=== PATIENT | female | born 1935 | race Caucasian/White ===

== ENCOUNTER 2023-05-04 15:22 | Outpatient (NON) | payer OTHER, SELFPAY ==
[2023-05-04 15:46] LABS: Influenza A QL RT-PCR Negative (Negative); Influenza B QL RT-PCR Negative (Negative); RSV RNA, RT-PCR Positive (Negative); SARS-CoV-2 RNA PCR Negative (Negative)
== END 2023-05-04 15:23 | disposition home or self-care (01) ==
LOC: ANHLAB 15:29
PROVIDERS: PCP Internal Medicine; Visit Provider Hospitalist
DX: R05.9 Cough, unspecified (principal)
CPT/HCPCS: 87637

== ENCOUNTER 2024-03-28 20:20 | Emergency (ER) | payer OTHER, SELFPAY ==
--- NOTE | ~2024-03-28 | CT_ITS ---
EXAMINATION: CT brain wo con DATE: 03/29/2024 00:19 INDICATION: Head injury. TECHNIQUE: Computed tomography (CT) of the head was performed without intravenous contrast. The mA wa s adjusted according to patient size. Iterative reconstruction technique was employed. The dose-lengt h product was 681.00 mGy-cm. COMPARISON: Head CT 09/21/2009, brain MRI 05/12/2014 FINDINGS: There are scattered areas of low attenuation in the cerebral white matter, which is within normal limits for the patient's age. There is no intracranial hemorrhage, acute infarction, or abnorm al intracranial mass lesion. The ventricles are normal in size. There are likely changes of ocular le ns replacement surgeries. There is mild mucosal thickening in the paranasal sinuses. The mastoid air cells are normal. IMPRESSION: 1. Normal aging brain. Reviewed, dictated and finalized at location A. E BANKER IMPRESSION: 1. Normal aging brain.
[2024-03-28 20:26] VITALS: BP 92/53; PULSE 70; RESP 16; TEMP 36.6; O2SAT 96
--- NOTE | 2024-03-28 23:53 | ED_ITS ---
HPI - Fall General Chief Complaint: Fall Stated Complaint: glf Time Seen by Provider: 03/28/24 23:43 Source: family Mode of arrival: wheelchair Limitations: dementia History of Present Illness HPI Narrative: 88-year-old with a history of hypertension diabetes, dementia was brought in from skilled nursing with the complaints of fall. Daughter was at bedside states that they were trying to take her to the bathroom lost her balance and hit head. No LOC. Patient presently has no complaints. complaint: fall Fall from: standing Fall witnessed: yes, by living facility staff Place fall occurred: skilled nursing/SNF Loss of consciousness: none Location of injury: head Related Data Allergies Allergy/AdvReac Type Severity Reaction Status Date / Time No Known Allergies Allergy Verified 03/28/24 20:21 Review of Systems Constitutional: Constitutional: Reports no additional constitutional complaints Eyes: Eyes: Reports no additional eye complaints Cardiovascular: Cardiovascular: Reports no additional cardiovascular complaints Respiratory: Respiratory: Reports no additional respiratory complaints Gastrointestinal: Gastrointestinal: Reports no additional gastrointestinal complaints Musculoskeletal: Musculoskeletal: Reports no additional musculoskeletal complaints PMFSH Family History Family History Father Family history of diabetes mellitus in first degree relative Mother Family history of diabetes mellitus in first degree relative Mother Family history of diabetes mellitus in first degree relative Other Diabetes mellitus Family history of coronary artery disease Family history of elevated blood lipids Family history of hypercholesterolemia Family history of osteoarthritis Social History Social History Smoking status: Never smoker Alcohol intake: never Exam Narrative: GENERAL: Well-appearing, well-nourished, and in no acute distress. HEAD: Normocephalic, atraumatic. EYES: PERRLA and EOMI. ENT: Nares clear, no rhinorrhea or epistaxis. Mucous membranes moist. NECK: Supple. CHEST: Clear to auscultation. No respiratory distress. HEART: Regular rate and rhythm. No murmur heard. Normal peripheral pulses. ABDOMEN: Soft, nontender, nondistended, normal active bowel sounds. EXTREMITIES: Normal range of motion. No edema. SKIN: Warm, dry, no rash. NEURO: No focal deficits. Alert PSYCH: Normal mood and affect. Course Vital Signs Vital signs: Vital Signs Temperature 36.6 C 03/28/24 20:26 Pulse Rate 70 03/28/24 20:26 Respiratory Rate 16 03/28/24 20:26 Blood Pressure 92/53 L 03/28/24 20:26 Pulse Oximetry 96 03/28/24 20:26 Temperature 36.6 C 03/28/24 20:26 Pulse Rate 70 03/28/24 20:26 Respiratory Rate 16 03/28/24 20:26 Blood Pressure 92/53 L 03/28/24 20:26 Pulse Oximetry 96 03/28/24 20:26 MDM - Fall Differential Diagnosis Differential diagnosis: Likely concussion with loss of consciousness and concussion without loss of consciousness Medical Records Attestation: I reviewed the patient's medical records. Imaging Data Radiologist's impression: CT of the head of the head was unremarkable Discharge Plan Discharge Clinical Impression: Head injury Qualifiers: Encounter type: initial encounter Qualified Code(s): S09.90XA - Unspecified injury of head, initial encounter Patient Disposition: NH Usp/Asst Living Condition: Stable Instructions: Antibiotic Form, Head Injury (ED) Additional Instructions: fall precautions Patient Language: Kuwaiti Follow-up/Referrals: Yeison Atwood MD [Primary Care Provider] - Time of Disposition: 00:41
[2024-03-29] VITALS: BP 106/59; PULSE 63; RESP 14; TEMP 36.6; O2SAT 97
[2024-03-29 01:00] VITALS: BP 110/57; PULSE 69; RESP 12; O2SAT 96
[2024-03-29 03:03] VITALS: BP 106/55; PULSE 64; RESP 14; O2SAT 97
[2024-03-29 05:02] VITALS: BP 102/58; PULSE 64; RESP 13; O2SAT 96
--- NOTE | 2024-03-29 06:52 | PC.NURSE ---
Report called to [facility]. Pt transport time has been pushed back three times. [facility] stated that they typically can transport pts but are unable due to the holiday. Transport set for 10am.
--- OUTSIDE RECORDS SUMMARY | 2024-04-05 00:11 | XMS_ITS | Encounter Summary ---
Author Organization [facility] Address [facility] [facility] [place] [address] [place] [address] Care Team Providers Care Human Anatomy Teacher Name Role Phone Joni Mckeon MD Unavailable [phone] Noemi Barnard MD Primary Care Provider [phone] Sandra Johnson RN Unavailable [phone] Reason for Visit * Reason Onset Date Comments Hospital Follow Up 05/19/2021 admit to [facility] 05/15 Encounter Details Date Type Department Care Team (Late st Contact Info) Description 05/19/2021 Patient Outreach [facility] Family & Internal Medicine [address] [address] Sandra Johnson, RN [address] [place] [address] Hospital Follow Up (admit to [facility] 05/15) Social History Tobacco Use Types Packs/Day Years Used Date Smoking Tobacco: Never Smokeless Tobacco: Never Alcohol Use Standard Drinks/Week Comments No 0 (1 standard drink = 0.6 oz pur e alcohol) AUDIT-C Answer Date Recorded Frequency of Alcohol Consumption Never 02/22/2018 Average Number of Drinks Not on file 018 Frequency of Binge Drinking Not on file 02/04 PHQ-2 Answer Date Recorded PHQ-2 Score - If the patient scores above 3, please move on to questions 3-9 0 04/16/2021 Comments No Sex and Gender Information Value Date Recorded Sex Assigned at Not on file Legal Sex Female 8:14 PM CDT Gender Identity Not on file Sexual Orientation Not on file Occupation Industry Job Start Date Job End Date Not on file Not on file Not on file Not on file COVID-19 Exposure Response Date Recorded In the last 10 days, have yo u been in contact with someone who was confirmed or suspected to have Coronavirus/COVID-19? No / Unsure 05/10/2021 1:36 PM COCOA ROOM OPERATOR documented as of this encounter Functional Status * RETIRED Are you deaf or do you have serious difficulty hearing Answer Date of Assessment Author Status Yes 05/11/2021 1:19 AM COCOA ROOM OPERATOR Activ e * RETIRED Are you blind or do you have serious difficulty seeing, even when wearing glasses? Answer Date of Assessment Author Status No 05/11/2021 1:19 AM COCOA ROOM OPERATOR Activ e * Do you have serious difficulty walking or climbing stairs? Answer Date of Assessment Author Status Yes 05/11/2021 1:19 AM COCOA ROOM OPERATOR Aliya Baca RN Active * Do you have difficulty dressing or bathing? Answer Date of Assessment Author Status Yes 05/11/2021 1:19 AM COCOA ROOM OPERATOR Aliya Baca RN Active * Because of a physical, mental, or emotional condition, do you have difficulty doing errands alone such as visiting a doctor's office or shopping? Answer Date of Assessment Author Status Yes 05/11/2021 1:19 AM Aliya Brooks RN Active documented as of this encounter Mental Status * Because of a physical, mental, or emotional condition, do you have serious difficulty concentrating, remembering, or making decisions? Answer Entry Date Author Status Yes 05/11/2021 1:19 AM Aliya Brooks RN Active documented in this encounter Progress Notes * Sandra Johnson RN - 05/19/2021 9:40 AM CST Patient [facility] for ongoing therapy services. Per daughter they are applying for medicaid this week patient is not safe to return home, daughter is unsure if she will ever be able to return home. A ROOM OPERATOR * Penny Cole MA - 05/19/2021 9:40 AM CST Printed for provider to review. A ROOM OPERATOR documented in this encounter Plan of Treatment Not on file documented as of this encounter Goals Goal Patient Goal Type Associated Problems Recent Progress Patient-Stated? Author Improve Home Support System General Laura Akbar, RN Return home with [facility] home health General No Malgorzata Brown MSW HOME WITH DAUGHTER General No Laura Cheatham, sheetrock applicator - family caregiver with be involved in care transitions and discharge planning General No Laura Cheatham, RN documented as of this encounter Visit Diagnoses Not on filedocumented in this encounter Additional Health Concerns Assessment Noted Time PHQ-9 Depression Total Score: 0 04/16/19 22 1:13 PM COCOA ROOM OPERATOR documented as of this encounter Care Teams Human Anatomy Teacher Relationship Specialty Start Date End Date Noemi Barnard MD [facility]. [address] [address] PCP - General INTERNAL MEDICINE 08/23/18 03/03/23 Joni Mckeon MD [facility]. [address] [address] [employer] CARDIOVASCULAR DISEASE 07/04/18 Sandra Johnson RN [facility] [place] [address] [place] (Ambulatory) REGISTERED NURSE 05/12/21 06/29/21 documented as of this encounter
--- OUTSIDE RECORDS SUMMARY | 2024-04-05 00:11 | XMS_ITS | Encounter Summary ---
Author Organization [facility] Address [address] [place] [address]. [place] [address] [place] [address] Care Team Providers Care Medical Records Coordinator Name Role Phone Joni Mckeon MD Unavailable [phone] Noemi Barnard MD Primary Care Provider [phone] Reason for Visit * Reason Onset Date Comments Question 03/02/2022 Encounter Details Date Type Department Care Team (Late st Contact Info) Description 03/02/2022 Telephone [place] [facility] [address] Melody Bucio, RN Question Social History Tobacco Use Types Packs/Day Years [...] file Not on file Not on file documented as of this encounter Functional Status * RETIRED Are you deaf or do you have serious difficulty hearing Answer Date of Assessment Author Status Yes 05/11/2021 1:19 AM MILLINERY BLOCKER Activ e * RETIRED Are you blind or do you have serious difficulty seeing, even when wearing glasses? Answer Date of Assessment Author Status No 05/11/2021 1:19 AM MILLINERY BLOCKER Activ e * Do you have serious difficulty walking or climbing stairs? Answer Date of Assessment Author Status Yes 05/11/2021 1:19 AM Aliya Brooks RN Active * Do you have difficulty dressing or bathing? Answer Date of Assessment Author Status Yes 05/11/2021 1:19 AM Aliya Brooks RN Active * Because of a physical, [...] documented in this encounter Progress Notes * Nolvia Thomason RN - 03/03/2022 9:50 AM CST [place] removed from the website. INERY BLOCKER * Melody Bucio RN - 03/02/2022 3:51 PM CST Returned call from voicemail message. Patient's daughter is requesting remote monitoring of her mother's device be cancelled. Her is also communicating with her. She has dementia and has beenin LTCF for about a year and she is being billed for the monitoring. They understand that this watches for changes in wire or battery measurements and would not have her go through a procedure to fix/repair them if they were to occur so request monitoring be discontinued. They will return her Toney monitor to our office at their convenience. There is POA of healthcare paperwork in this EMR that demonstrates Krystina is her Mother's POA for healthcare. I provided them with additional phone number for billing specific questions. INERY BLOCKER documented in this encounter Plan of Treatment Not on file documented as of this encounter Goals Goal Patient Goal Type Associated Problems Recent Progress Patient-Stated? Author Improve Home Support System General No Laura Cheatham, RN Return home with [facility] home health General No Malgorzata Brown, SALES ASSOCIATE KEY HOLDER HOME WITH DAUGHTER General No Laura Cheatham, track equipment operator - family caregiver with be involved in care transitions and discharge planning General No Laura Cheatham, RN documented as of this encounter Visit Diagnoses Not on filedocumented in this encounter Additional Health Concerns Assessment Noted Time PHQ-9 Depression Total Score: 0 04/16/19 22 1:13 PM MILLINERY BLOCKER documented as of this encounter Care Teams Medical Records Coordinator Relationship Specialty Start Date End Date Noemi Barnard MD [facility]. [facility] [address] [place] [address] PCP - General INTERNAL MEDICINE 08/23/18 03/03/23 Joni Mckeon MD [facility]. [facility] [address] [place] [address] Christopher External Auditor CARDIOVASCULAR DISEASE 07/04/18 documented as of this encounter
--- OUTSIDE RECORDS SUMMARY | 2024-04-05 00:11 | XMS_ITS | Encounter Summary ---
Author Organization [facility] Address [address] [place] [address] [place] [address] Care Team Providers Care Quality Process Engineer Name Role Phone Joni Mckeon MD Unavailable [phone] Noemi Barnard MD Primary Care Provider [phone] Reason for Visit * Reason Onset Date Comments Follow Up Call 11/11/2021 Toney transmitt er not connecting, Needs to do Manual Dexter to Reconnect, Letter sent, rescheduled. Encounter Details Date Type Department Care Team (Late st Contact Info) Description 11/11/2021 Telephone [facility], [address] [address] Nolvia Thomason, RN Follow Up Call (Toney transmitter not connecting, Needs to do Manual Dexter to Reconnect, Letter sent, rescheduled.) Social History Tobacco Use Types Packs/Day Years [...] Assessment Author Status Yes 05/11/2021 1:19 AM MANAGER OF HOUSEKEEPING Activ e * RETIRED Are you blind or do you have serious difficulty seeing, even when wearing glasses? Answer Date of Assessment Author Status No 05/11/2021 1:19 AM MANAGER OF HOUSEKEEPING Activ e * Do you have serious [...] Progress Notes * Nolvia Thomason RN - 11/11/2021 11:48 AM CDT Toney transmitter not connecting, Needs to do Manual Dexter to Reconnect, Letter sent, rescheduled. documented in this encounter Plan of Treatment Not on file documented as of this encounter Goals Goal Patient Goal Type Associated Problems Recent Progress Patient-Stated? Author Improve Home Support System General No Laura Cheatham, RN Return home with [facility] home health General No Malgorzata Brown MSW HOME WITH DAUGHTER General No Laura Cheatham, recessing machine operator - family caregiver with be involved in care transitions and discharge planning General No Laura Cheatham RN documented as of this encounter Visit Diagnoses Not on filedocumented in this encounter Additional Health Concerns Assessment Noted Time PHQ-9 Depression Total Score: 0 04/16/19 22 1:13 PM MANAGER OF HOUSEKEEPING documented as of this encounter Care Teams Quality Process Engineer Relationship Specialty Start Date End Date Noemi Barnard MD [facility]. [address] [address] PCP - General INTERNAL MEDICINE 08/23/18 03/03/23 Joni Mckeon MD [facility]. [address] [address] [employer] Delivery Driver CARDIOVASCULAR DISEASE 07/04/18 documented as of this encounter
--- OUTSIDE RECORDS SUMMARY | 2024-04-05 00:11 | XMS_ITS | Encounter Summary ---
Author Organization [facility] Address [address] [place] [address]. [address] Care Team Providers Care Tube Mounter Name Role Phone Joni Mckeon MD Unavailable [phone] Noemi Barnard MD Primary Care Provider [phone] Reason for Visit * Reason Comments Remote Device Check Routine Toney Remot e Pacemaker check. Encounter Details Date Type Department Care Team (Late st Contact Info) Description 12/01/2021 7:00 AM CDT Allied Health/Nurse Visit [facility] [facility], [facility] [address] [place] [address] Cruzito Mcnulty MD [facility]. [facility] [address] [place], [place] [id number] Remote Device Check (Routine [place] Remote Pacemaker check. ) Social History Tobacco Use Types Packs/Day Years [...] Assessment Author Status Yes 05/11/2021 1:19 AM TOLL COLLECTOR Activ e * RETIRED Are you blind or do you have serious difficulty seeing, even when wearing glasses? Answer Date of Assessment Author Status No 05/11/2021 1:19 AM TOLL COLLECTOR Activ e * Do you have serious [...] documented in this encounter Progress Notes * Novlia Thomason RN - 12/01/2021 7:00 AM CDT Routine [place] Pacemaker Remote. Transmission attached. Good battery voltage, atrial and RV pacing and sensing thresholds. AP %: 62, POWDERMAN %: 4.1 (1) Recent AT/AF episodes. IEGM demonstrates INAPPROPRIATE MS. (0) Ventricular arrhythmias detected. 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 MEDS: ASA, Inderal, and Amlodipine Follow up: [place] 03/02/22. The battery longevity today is 9.1 years to [place], the battery longevity on 08/04/2021 it was 10.9 years, the correct battery longevity is 9.1 years after the software upgrade. Cosigned by Joni Mckeon MD at 12/07/2021 4:36 PM CDT documented in this encounter Plan of Treatment Not on file documented as of this encounter Goals Goal Patient Goal Type Associated Problems Recent Progress Patient-Stated? Author Improve Home Support System General Laura Akbar, RN Return home with [facility] home health General No Malgorzata Brown MULTIPLE DRILL OPERATOR HOME WITH DAUGHTER General No Laura Cheatham, supervisor seaming - family caregiver with be involved in care transitions and discharge planning General Laura Akbar, RN documented as of this encounter Visit Diagnoses Diagnosis Pacemaker Cardiac pacemaker in situ SSS (sick sinus syndrome) ([facility]) Sinoatrial node dysfunction documented in this encounter Additional Health Concerns Assessment Noted Time PHQ-9 Depression Total Score: 0 04/16/19 22 1:13 PM TOLL COLLECTOR documented as of this encounter Care Teams Tube Mounter Relationship Specialty Start Date End Date Noemi Barnard MD [facility]. [address] [address] PCP - General INTERNAL MEDICINE 08/23/18 03/03/23 Joni Mckeon MD [facility]. [facility] [address] [place] [address] Christopher Radiology Equipment Servicer CARDIOVASCULAR DISEASE 07/04/18 documented as of this encounter
--- OUTSIDE RECORDS SUMMARY | 2024-04-05 00:11 | XMS_ITS | Encounter Summary ---
Author Organization [facility] Address [facility] [facility] [place] [address] [place] [address] Care Team Providers Care Hot Dip Plating Supervisor Name Role Phone Joni Mckeon MD Unavailable [phone] Noemi Barnard MD Primary Care Provider [phone] Reason for Visit * Reason Onset Date Comments Hospital Follow Up 06/30/2021 Encounter Details Date Type Department Care Team (Late st Contact Info) Description 06/30/2021 Patient Outreach [facility] Medical Group Family & Internal Medicine [facility] [address] [place] [address] Sandra Johnson, RN [address] [place] [address] Hospital Follow Up Social History Tobacco Use Types Packs/Day Years [...] Assessment Author Status Yes 05/11/2021 1:19 AM DINKEY SKINNER Activ e * RETIRED Are you blind or do you have serious difficulty seeing, even when wearing glasses? Answer Date of Assessment Author Status No 05/11/2021 1:19 AM DINKEY SKINNER Activ e * Do you have serious [...] Progress Notes * Sandra Johnson RN - 06/30/2021 10:46 AM CDT CC called and spoke with Juana at [facility] who reported that patient will be a senior care resident at the facility and will not return home. Patient discharged from home visit field care manager services. * Kaye Slaughter RN - 06/30/2021 10:46 AM CDT FYI documented in this encounter Plan of Treatment Not on file documented as of this encounter Goals Goal Patient Goal Type Associated Problems Recent Progress Patient-Stated? Author Improve Home Support System General No Laura Cheatham RN Return home with [facility] home health General No Flamm, Malgorzata M, INSPECTOR HOT FORGINGS HOME WITH DAUGHTER General No Laura Cheatham, transportation assistant - family caregiver with be involved in care transitions and discharge planning General No Laura Cheatham, RN documented as of this encounter Visit Diagnoses Not on filedocumented in this encounter Additional Health Concerns Assessment Noted Time PHQ-9 Depression Total Score: 0 04/16/19 22 1:13 PM DINKEY SKINNER documented as of this encounter Care Teams Hot Dip Plating Supervisor Relationship Specialty Start Date End Date Noemi Barnard MD [facility]. [address] [id number] PCP - General INTERNAL MEDICINE 08/23/18 03/03/23 Joni Mckeon MD [facility]. [address] [address] [place] [employer] Performer CARDIOVASCULAR DISEASE 07/04/18 documented as of this encounter
--- OUTSIDE RECORDS SUMMARY | 2024-04-05 00:11 | XMS_ITS | Encounter Summary ---
Author Organization [facility] Address [facility] [place] [address] [place] [address] Care Team Providers Care Ramp Service Man Name Role Phone Joni Mckeon MD Unavailable [phone] Noemi Barnard MD Primary Care Provider + [phone] Sandra Johnson RN Unavailable [phone] Reason for Visit * Reason Onset Date Comments Hospital Follow Up 05/27/2021 Encounter Details Date Type Department Care Team (Late st Contact Info) Description 05/27/2021 Patient Outreach [facility] Family & Internal Medicine [address] [address] Sandra Johnson, RN [address] [place] [address] Hospital Follow Up Social History [...] Coronavirus/COVID-19? No / Unsure 05/10/2021 1:36 PM CLAM SORTER documented as of this encounter Functional Status * RETIRED Are you deaf or do you have serious difficulty hearing Answer Date of Assessment Author Status Yes 05/11/2021 1:19 AM CLAM SORTER Activ e * RETIRED Are you blind or do you have serious difficulty seeing, even when wearing glasses? Answer Date of Assessment Author Status No 05/11/2021 1:19 AM CLAM SORTER Activ e * Do you have serious difficulty walking or climbing stairs? Answer Date of Assessment Author Status Yes 05/11/2021 1:19 AM CLAM SORTER Aliya Baca RN Active * Do you have difficulty dressing or bathing? Answer Date of Assessment Author Status Yes 05/11/2021 1:19 AM CLAM SORTER Aliya Baca RN Active * Because of a physical, mental, or emotional condition, do you have difficulty doing errands alone such as visiting a doctor's office or shopping? Answer Date of Assessment Author Status Yes 05/11/2021 1:19 AM CLAM SORTER Aliya Baca RN Active documented as of this encounter Mental Status * Because of a physical, mental, or emotional condition, do you have serious difficulty concentrating, remembering, or making decisions? Answer Entry Date Author Status Yes 05/11/2021 1:19 AM Aliya Brooks RN Active documented in this encounter Progress Notes * Sandra Johnson RN - 05/27/2021 11:44 AM CST Spoke with nurse and therapist at [facility] to check on status, patient is receivingPT/OT/ST services, per daughter patient has 100 days approved, medicaid application pending at thistime. Therapy stated that patient is a stand by assist with contact guard. Therapist stated that patient is doing good physically but will need more therapy for cognitive issues. Therapist reported that patient would be safe to discharge to a [facility] after therapy completed and requested that daughter call facility to discuss, spoke with daughter and informed her to contact facility at earliest convenence and ask for therapy department. Daughter reports that patient has no money for [facility], informed patient of possible assistance once all therapy goals are met. CC gave daughter number to contact CC with any questions or concerns. Daughter voiced understanding. SORTER * Melanie Chavez RN - 05/27/2021 11:44 AM CST FYI SORTER documented in this encounter Plan of Treatment Not on file documented as of this encounter Goals Goal Patient Goal Type Associated Problems Recent Progress Patient-Stated? Author Improve Home Support System General Laura Akbar, RN Return home with [facility] home health General No Malgorzata Brown MSW HOME WITH DAUGHTER General Laura Akbar, casting molder - family caregiver with be involved in care transitions and discharge planning General No Laura Cheatham RN documented as of this encounter Visit Diagnoses Not on filedocumented in this encounter Additional Health Concerns Assessment Noted Time PHQ-9 Depression Total Score: 0 04/16/19 22 1:13 PM CLAM SORTER documented as of this encounter Care Teams Ramp Service Man Relationship Specialty Start Date End Date Noemi Barnard MD [address] [address] PCP - General INTERNAL MEDICINE 08/23/18 03/03/23 Joni Mckeon MD [facility] [address] [place] [address] [place] [employer] CARDIOVASCULAR DISEASE 07/04/18 Sandra Johnson, RN [address] [place] [address] Luggage Repairer (Ambulatory) REGISTERED NURSE 05/12/21 06/29/21 documented as of this encounter
--- OUTSIDE RECORDS SUMMARY | 2024-04-05 00:11 | XMS_ITS | Encounter Summary ---
Author Organization [facility] Address [facility] [place] [address] [place] [address] Care Team Providers Care Electric Motor Repairing Supervisor Name Role Phone Joni Mckeon MD Unavailable [phone] Noemi Barnard MD Primary Care Provider + [phone] Sandra Johnson RN Unavailable [phone] Reason for Visit * Reason Onset Date Comments Hospital Follow Up 05/15/2021 admit to [facility] 05/14 Encounter Details Date Type Department Care Team (Late st Contact Info) Description 05/15/2021 Patient Outreach [facility] Family & Internal Medicine - [address] [address] Sandra Johnson, RN [address] [place] [address] Hospital Follow Up (admit to [facility] 05/14) Social History Tobacco Use Types Packs/Day Years [...] Coronavirus/COVID-19? No / Unsure 05/10/2021 1:36 PM ASSISTANT PLANT MANAGER documented as of this encounter Functional Status * RETIRED Are you deaf or do you have serious difficulty hearing Answer Date of Assessment Author Status Yes 05/11/2021 1:19 AM ASSISTANT PLANT MANAGER Activ e * RETIRED Are you blind or do you have serious difficulty seeing, even when wearing glasses? Answer Date of Assessment Author Status No 05/11/2021 1:19 AM ASSISTANT PLANT MANAGER Activ e * Do you have serious difficulty walking or climbing stairs? Answer Date of Assessment Author Status Yes 05/11/2021 1:19 AM ASSISTANT PLANT MANAGER Aliya Baca RN Active * Do you have difficulty dressing or bathing? Answer Date of Assessment Author Status Yes 05/11/2021 1:19 AM ASSISTANT PLANT MANAGER Aliya Baca RN Active * Because of a physical, mental, or emotional condition, do you have difficulty doing errands alone such as visiting a doctor's office or shopping? Answer Date of Assessment Author Status Yes 05/11/2021 1:19 AM ASSISTANT PLANT MANAGER Aliya Baca RN Active documented as of this encounter Mental Status * Because of a physical, mental, or emotional condition, do you have serious difficulty concentrating, remembering, or making decisions? Answer Entry Date Author Status Yes 05/11/2021 1:19 AM ASSISTANT PLANT MANAGER Aliya Baca RN Active documented in this encounter Progress Notes * Sandra Johnson RN - 05/15/2021 8:47 AM CST Patient discharged from [facility] and admitted to [facility] on 05/14/21. STANT PLANT MANAGER * Melanie Chavez RN - 05/15/2021 8:47 AM CST FYI STANT PLANT MANAGER documented in this encounter Plan of Treatment Not on file documented as of this encounter Goals Goal Patient Goal Type Associated Problems Recent Progress Patient-Stated? Author Improve Home Support System General No Laura Cheatham, RN Return home with [facility] home health General No Malgorzata Brown, CLOTH CHECKER HOME WITH DAUGHTER General No Laura Cheatham, careers adviser - family caregiver with be involved in care transitions and discharge planning General No Laura Cheatham, RN documented as of this encounter Visit Diagnoses Not on filedocumented in this encounter Additional Health Concerns Assessment Noted Time PHQ-9 Depression Total Score: 0 04/16/19 22 1:13 PM ASSISTANT PLANT MANAGER documented as of this encounter Care Teams Electric Motor Repairing Supervisor Relationship Specialty Start Date End Date Noemi Barnard MD [facility]. [facility] [address] [place] [address] PCP - General INTERNAL MEDICINE 08/23/18 03/03/23 Joni Mckeon MD [facility]. [facility] [address] [place], [place] [address] Crum Casing Splitter CARDIOVASCULAR DISEASE 07/04/18 Sandra Johnson, KAILEE [address] [place], [place] [address] Stitcher Utility (Ambulatory) REGISTERED NURSE 05/12/21 06/29/21 documented as of this encounter
--- OUTSIDE RECORDS SUMMARY | 2024-04-05 00:11 | XMS_ITS | Encounter Summary ---
Author Organization [facility] Address [address] [place] [address]. [place] [address] [place] [address] Care Team Providers Care Certified Lactation Counselor Name Role Phone Joni Mckeon MD Unavailable [phone] Noemi Barnard MD Primary Care Provider [phone] Reason for Visit * Reason Comments Remote Device Check routine Toney remot e pacemaker check Encounter Details Date Type Department Care Team (Late st Contact Info) Description 08/04/2021 9:25 AM CDT Allied Health/Nurse Visit [facility], [facility] [address] [place] [address] Cruzito Mcnulty MD [facility]. [facility] [address] [place], [place] [id number] Remote Device Check (routine Toney remote pacemaker check) Social History Tobacco Use Types Packs/Day Years [...] Assessment Author Status Yes 05/11/2021 1:19 AM POWERHOUSE ELECTRICIAN APPRENTICE Activ e * RETIRED Are you blind or do you have serious difficulty seeing, even when wearing glasses? Answer Date of Assessment Author Status No 05/11/2021 1:19 AM POWERHOUSE ELECTRICIAN APPRENTICE Activ e * Do you have serious [...] Progress Notes * Nolvia Thomason RN - 08/04/2021 9:25 AM CDT Routine [place] Pacemaker Remote. Transmission attached. Stable battery voltage, atrial and RV pacing and sensing thresholds. AP %: 59, JIGGER CROWN POUNCING MACHINE OPERATOR %: 15 (0) Recent AT/AF episodes. (0) Ventricular arrhythmias detected. Presenting AP/VS. MEDS: ASA, Inderal, and Amlodipine Follow up: Toney 11/10/21. Cosigned by Joni Mckeon MD at 08/19/2021 6:58 AM CDT documented in this encounter Plan of Treatment Not on file documented as of this encounter Goals Goal Patient Goal Type Associated Problems Recent Progress Patient-Stated? Author Improve Home Support System General No Laura Cheatham, RN Return home with [facility] home health General No IzzyoneilMalgorzata, TEXTBOOK ASSOCIATE HOME WITH DAUGHTER General No Laura Cheatham, surveillance officer - family caregiver with be involved in care transitions and discharge planning General No Laura Cheatham, RN documented as of this encounter Visit Diagnoses Diagnosis Pacemaker Cardiac pacemaker in situ SSS (sick sinus syndrome) ([facility] Sinoatrial node dysfunction documented in this encounter Additional Health Concerns Assessment Noted Time PHQ-9 Depression Total Score: 0 04/16/19 22 1:13 PM POWERHOUSE ELECTRICIAN APPRENTICE documented as of this encounter Care Teams Certified Lactation Counselor Relationship Specialty Start Date End Date Noemi Barnard MD Three [facility]. [address] [id number] PCP - General INTERNAL MEDICINE 08/23/18 03/03/23 Joni Mckeon MD [facility]. [facility] [address] [place] [address] Carlotta Presales Consultant CARDIOVASCULAR DISEASE 07/04/18 documented as of this encounter
--- OUTSIDE RECORDS SUMMARY | 2024-04-05 00:11 | XMS_ITS | Clinical Summary ---
Author Organization [facility] Address [facility] [place] [address] [place] [address] Care Team Providers Care Hook Up Driver Name Role Phone Joni Mckeon MD Unavailable [phone] None, Provider Primary Care Provider Unavaila ble Allergies Active Allergy Reactions Criticality Noted Date Comments Sulfamethoxazole-Trimethoprim Rash Low 2018 Medications * This document contains information received from the source organization and may not represent a complete record from that organization. aspirin EC 81 MG EC tabletIndications: Anticoagulant Therapy Take 81 mg by mouth daily. Indications: Anticoagulant Therapy 01/04/20 Active Cholecalciferol (VITAMIN D) 2000 units CapIndications:Nut ritional Support Take 2,000 Units by mouth daily. Indications: Nutritional Support 01/04/20 Active sertraline 100 MG tabletIndications: Depression Take 100 mg by mouth every morning. Indications: Depression 08/17/19 20 Active donepezil 10 MG Tab Take two tabs PO QAM 08/17/19 20 Active vitamin C 250 MG tablet Take 250 mg by mouth daily. Active memantine ER 28 MG 24 hr capsule Take 28 mg by mouth daily. Active rOPINIRole 2 MG tablet Take 2 mg by mouth nightly at bedtime. Active methenamine 1 g tabletIndications: Recurrent UTI TAKE 1 TABLET(1 GRAM) BY MOUTH TWICE DAILY WITH MEALS 60 tablet 3 11/01/19 21 Active Blood Glucose Monitoring Suppl DeviceIndications: Type 2 diabetes mellitus with stage 3 chronic kidney disease, without long-term current use of insulin, unspecified whether stage 3a or 3b CKD (CMS/HCC HHS/HCC) 1 Device by Does not apply route daily. Whatever brand insurance will pay for 100 Device 12/20/19 21 Active Misc. Devices MiscIndications:Ty pe 2 diabetes mellitus with stage 3 chronic kidney disease, without long-term current use of insulin, unspecified whether stage 3a or 3b CKD ([facility]) 1 strip by Does not apply route daily. Whatever brand insurance will pay for 100 strip 12/20/19 Active propranolol 10 MG tablet TAKE 1 TABLET BY MOUTH EVERY MORNING AND EVERY NIGHT AT BEDTIME 01/05/20 Active AMLODIPINE 5 MG tablet TAKE 1 TABLET BY MOUTH DAILY 90 tablet 03/06/20 Active PRAVASTATIN 40 MG tabletIndications: Hyperlipidemia, unspecified hyperlipidemia type TAKE 1 TABLET(40 MG) BY MOUTH EVERY NIGHT AT BEDTIME 90 tablet 03/06/20 Active LEVOTHYROXINE 50 MCG tabletIndications: Hypothyroidism, unspecified type TAKE 1 TABLET(50 MCG) BY MOUTH EVERY MORNING 90 tablet 03/06/20 Active ONETOUCH VERIO test stripIndications:D iabetes mellitus ([facility]) USE TO TEST EVERY DAY 100 strip 03/10/20 Active ONETOUCH DELICA PLUS [id number] MiscIndications:Ty pe 2 diabetes mellitus with stage 3 chronic kidney disease, without long-term current use of insulin, unspecified whether stage 3a or 3b CKD ([facility]) USE ONCE A DAY 100 each 03/19/20 21 Active risperiDONE 0.5 MG tablet Take 1.5 mg by mouth nightly at bedtime. 02/01/20 Active OMEPRAZOLE 20 MG capsuleIndications :Gastroesophageal reflux disease with esophagitis, unspecified whether hemorrhage TAKE 1 CAPSULE(20 MG) BY MOUTH DAILY 90 capsule 1 03/26/20 21 Active BENAZEPRIL 20 MG tablet TAKE 1 TABLET(20 MG) BY MOUTH DAILY 90 tablet 3 03/25/20 21 Active Active Problems Problem Noted Date Diagnosed Date NSTEMI (non-ST elevated myoc ardial infarction) ([facility]) 05/10/2021 Dysphagia, unspecified type 04/12/2020 Overview (04/12/2020): Added automatically from request for surgery [id number] Choking 04/12/2020 Overview (04/12/2020): Added automatically from request for surgery [id number] Weight loss 04/12/2020 Overview (04/12/2020): Added automatically from request for surgery [id number] Pacemaker 02/15/2020 Overview (05/06/2021): 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 SSS Hyperthyroidism 11/07/2019 Irregular heart rate 11/07/2019 UTI symptoms 08/25/2019 Dehydration 08/17/2019 CLAUDIO (acute kidney injury) 07/30/2019 Type 2 diabetes mellitus wit h stage 3 chronic kidney disease, without long-term current use of insulin ([facility]) 07/26/2019 E-coli UTI 07/07/2019 Bacteremia 07/03/2019 Physical deconditioning 11/02/2018 Environmental and seasonal allergies 11/02/2018 SOB (shortness of breath) 08/05/2018 Atypical chest pain 06/21/2018 Dizziness 06/18/2018 Otitis externa of right ear, unspecified chronicity, unspecified type 06/15/2018 Diverticulitis 06/15/2018 Suprapubic pain 06/15/2018 Diarrhea, unspecified type 03/10/2018 Vaginal burning 03/10/2018 GERD (gastroesophageal reflux disease) 8 Colitis 03/17/2017 Claudication 08/10/2016 Dyshidrotic eczema 08/10/2016 Lumbago 08/10/2016 Hypothyroidism 08/07/2015 Insomnia 01/11/2015 Diabetes mellitus ([facility]) 12/25/2014 Hyperlipidemia 12/25/2014 Hypertension 12/25/2014 SSS (sick sinus syndrome) ([facility]) Resolved Problems Problem Noted Date Diagnosed Date Resolved Date UTI (urinary tract infection) 02/22/2018 02/25/2018 Sepsis ([facility]) 01/03/2018 Acute diverticulitis 12/03/2017 018 Otitis media 11/08/2017 02/25/2018 Abdominal pain, chronic, left lower quadrant 7 02/25/2018 Immunizations Name Administration Dates Next Due Fluzone 6 Months+ Quad (0.5 mL Prefilled Syringe) 01/23/2020 Fluzone High Dose - >Age 65 (Prefilled Syringe) 01/23/2021,01/06/2019,12/20/2017,2015,01/09/2016,01/07/2015,01/15/2014 Influenza (Afluria - Preserv ative Free) 01/07/2017 Influenza (Generic) 01/07/2017 Influenza Adult (Generic) 01/23/2020,07/2018,12/21/2017,2015,01/07/2015,01/15/2014,01/13/2013 MODERNA COVID-19 (12+) MRNA, LNP-S, PF, 100 MCG/ 0.5 ML DOSE 05/30/2020,05/02/2020 Pneumococcal (Pneumovax 23) 01/23/2021 Family History Medical History Relation Comments No Known Problems Father Heart Attack Mother Breast Cancer Other Diabetes Other cardiac disorder Other Relation Status Comments Father Mother Other Social History Tobacco Use Types Packs/Day Years Used Date Smoking Tobacco: Never Smokeless Tobacco: Never Tobacco Cessation:Counseling Given: No Alcohol Use Standard Drinks/Week Comments No 0 [...] file Not on file Not on file Last Filed Vital Signs Vital Sign Reading Time Taken Comments Blood Pressure 154/70 05/14/2021 7:00 AM QUAHOGGER Pulse 63 05/14/2021 7:00 AM QUAHOGGER Temperature 36.8 ??C (98.3 ??F) 05/14/2021 7:00 AM CS T Respiratory Rate 18 05/14/2021 7:00 AM QUAHOGGER Oxygen Saturation 95% 05/14/2021 7:00 AM QUAHOGGER Inhaled Oxygen Concentration - - Weight 49.5 kg (109 lb 2 oz) 05/14/2021 5:00 AM QUAHOGGER Height 162.6 cm (5' 4 ) 05/11/2021 12:55 AM QUAHOGGER Body Mass Index 18.73 05/11/2021 12:55 AM QUAHOGGER Plan of Treatment Health Maintenance Due Date Last Done Comments ASCVD Statin 1935 Diabetes: Retinopathy Eye Exam 07/30/1953 DTaP, Tdap and Td Vaccines (1 - Tdap) 07/30/1954 Zoster Vaccines (1 of 2) 07/30/1985 Annual Medicare Wellness Visit 07/30/2000 RSV Immunization or 60+ Years (1 - 1-dose 75+ series) 07/30/2010 Hemoglobin A1C 11/09/2021 05/12/2021, 02/0 09/2021, 01/23/2021, Additional history exists Pneumococcal Vaccine: 65+ Years (2 of 2 - PCV) 01/23/2022 01/23/2021 ASCVD LDL 05/11/2022 05/11/2021, 04/0 10/2020, 07/16/2019, Additional history exists Lipid Panel 05/11/2022 05/11/2021, 04/0 10/2020, 07/16/2019, Additional history exists COVID-19 Vaccine ( season) 2023 05/30/2020, 05/02/2020 Influenza Adult (#1) 2024 01/23/2021, 01/23/2020, 01/23/2020, Additional history exists Meningococcal Vaccine Aged Out No leticia yolanda eligible based on patient's age to complete this topic RSV Immunizations Under 20 Months Aged Out No longer eligible based on patient's age to complete this topic Goals Goal Patient Goal Type Associated Problems Recent Progress Patient-Stated? Author Improve Home Support System General No Laura Cheatham, RN Return home with [facility] home health General No Malgorzata Brown MSW HOME WITH DAUGHTER General No Laura Cheatham, timekeeper supervisor - family caregiver with be involved in care transitions and discharge planning General No Laura Cheatham, RN Medical Devices Implanted Type Area Sample Supervisor Device Identifier Shelf Expiration Date Model / Serial / Lot Atrial Lead- 020 Implanted:Qt y: 1 on 02/15/2020 by Cruzito Mcnulty MD Lead Implant [facility] [employer] [facility] [employer] 2087 TC / [id number] / Rv Lead- 020 Implanted:Qt y: 1 on 02/15/2020 by Cruzito Mcnulty MD Lead Implant Ventricle [employer] 2087 TC / [id number] / Stj Pacemaker- Implanted:Qt y: 1 on 02/15/2020 by Cruzito Mcnulty MD Pacemaker Right: Chest [employer] [id number] / [id number] / Description:Dual Chamber pac alliker RV Serial Number: [id number] Serial Number: [id number] Procedures Procedure Name Priority Date/Time Associated Diagnosis Comments HEMOGLOBIN, GLYCOSYLATED Routine 05/12/2021 5:57 AM QUAHOGGER LIPID PANEL Routine 05/11/2021 5:58 AM QUAHOGGER from Last 3 Months or Most Recently Relevant to Health Maintenance Results * (ABNORMAL) HEMOGLOBIN, GLYCOSYLATED (05/12/2021 5:57 AM QUAHOGGER) HGB A1C 6.2(H) <5.7 % 05/12/2021 2:01 PM QUAHOGGER [facility] Comment: INCREASED RISK OF DIABETES <5.7% ?NON-DIABETES 5.7-6.4% INCREASED RISK FOR FUTURE DIABETES > OR = 6.5 CONSISTENT WITH DIABETES STANDARDS OF MEDICAL CARE IN DIABETES-2010 DIABETES CARE, 33(SUPP 1): S1-S61,2010 ESTIMATED AVG GLUCOSE 131 mg/dL 05/12/2021 2:01 PM QUAHOGGER [facility] 05/12/2021 5:57 AM QUAHOGGER Ludy Coon NP LABORATORY Final Result [facility] [address] [place] [address], * LIPID PANEL (05/11/2021 5:58 AM QUAHOGGER) [facility] Signature CHOLESTEROL 119 <200.0 MG/DL 05/11/2021 6:59 AM [facility] TRIGLYCERIDES 83 <150 MG/DL 05/11/2021 6:59 AM [facility] HDL 58 >40.0 MG/DL 05/11/2021 6:59 AM [facility] LDL (CALCULATED) 44 <100 MG/DL 05/11/19 6:59 AM [facility] NON HDL CHOLESTEROL 61 <130 MG/DL 05/11 6:59 AM [facility] CHOL/HDL RATIO 2.1 0.0 - 4.5 05/11/2021 6:59 AM [facility] VLDL CALCULATION 17 5 - 55 MG/DL 05/11/2021 6:59 AM [facility] LIPID INTERPRETATION 05/11/2021 6:59 AM [facility] Comment: NIH CONCENSUS REPORT RECOMMENDATIONS: ?ADULT ?CHILD ??LOW RISK: ?CHOLESTEROL ? <200 ? <170 ?TRIGLYCERIDE ?<150 ?--- ?HDL ? >=60 ?--- ?LDL ? <100 ? <110 ??BORDERLINE: ?CHOLESTEROL ? 200-239 ?? 170-199 ?TRIGLYCERIDE ?150-199 ? --- ?HDL ?40-59 ?--- ?LDL ? 100-159 ?? 110-129 ??HIGH RISK: ?CHOLESTEROL ? >=240 ?>=200 ?TRIGLYCERIDE ?>=200 ? --- ?HDL ?<40 ?--- ?LDL ? >=160 ?>=130 05/11/2021 5:58 AM QUAHOGGER Leia Davenport MD LABORATORY Final Result Performing Organization Address City/State/[facility] Co de Phone Number [facility] [address] [place] [address], from Last 3 Months or Most Recently Relevant to Health Maintenance Insurance [facility] MEDICAID Advance Directives Documents on File Type Date Recorded Patient Sack Lifter Expl anation Power of Inspector Type 05/05/2021 8:59 AM 05/14 POA PROPERTY Advance Directives and Living Will 05/05/2021 8:57 AM 05/14/2010 HC POA Advance Directives and Living Will 05/05/2021 8:53 AM 05/14/2010 [place]IV[place] * DNR (Latest Code Status on File) Date Activated Date Inactivated Comments 05/11/2021 1:24 AM 05/14/2021 3:41 PM * Full Code Date Activated Date Inactivated Comments 02/15/2020 12:52 PM 02/15/2020 7:47 PM * Full Code Date Activated Date Inactivated Comments 09/05/2019 2:16 PM 10/19/2019 12:28 PM * Full Code Date Activated Date Inactivated Comments 08/03/2019 11:55 AM 08/16/2019 3:36 PM * Full Code Date Activated Date Inactivated Comments 08/01/2019 9:52 AM 08/01/2019 5:30 PM Care Teams Hook Up Driver Relationship Specialty Start Date End Date None, Provider, PCP - General UNKNOWN PHYSICIAN SPECIALTY 03/04/23 Joni Mckeon MD Three [facility]. [facility] [address] [place] [address] Christopher Top Distribution Executive CARDIOVASCULAR DISEASE 07/04/18
--- OUTSIDE RECORDS SUMMARY | 2024-04-05 00:12 | XMS_ITS | Encounter Summary ---
Author Organization [facility] Address [facility] [place] [address] [place] [address] Care Team Providers Care Diversified Crops Ii Farmworker Name Role Phone Joni Mckeon MD Unavailable [phone] Noemi Barnard MD Primary Care Provider [phone] Reason for Visit * Reason Comments Follow Up Botox Follow Up Encounter Details Date Type Department Care Team (Latest Contact Info) Description 01/27/2021 1:20 PM CDT Office Visit [facility] Medical Group Multispecialty Care - [facility] [address] [facility], [address] [place] [address] Clemencia Miller MD [address] [place] [address] [place] [id number] Follow Up (Botox Follow Up) Social History Tobacco Use Types Packs/Day Years [...] please move on to questions 3-9 0 01/27/2021 Comments No Sex and Gender Information Value Date Recorded Sex Assigned at Not on file Legal Sex Female 8:14 PM CDT Gender Identity Not on file Sexual Orientation Not on file Occupation Industry Job Start Date Job End Date Not on file Not on file Not on file Not on file COVID-19 Exposure Response Date Recorded In the last month, have you been in contact with someone who was confirmed or suspected to have Coronavirus / COVID-19? No / Unsure 01/27/2021 12:54 PM CDT documented as of this encounter Last Filed Vital Signs Vital Sign Reading Time Taken Comments Blood Pressure 124/72 01/27/2021 1:04 PM CDT Pulse 58 01/27/2021 1:04 PM CDT Temperature 36.2 ??C (97.2 ??F) 01/27/2021 1:04 PM CD T Respiratory Rate - - Oxygen Saturation 96% 01/27/2021 1:04 PM CDT Room Air Inhaled Oxygen Concentration - - Weight 50.7 kg (111 lb 12.8 oz) 01/27/2021 1:04 PM CDT Height 160 cm (5' 3 ) 01/27/2021 1:04 PM CDT Body Mass Index 19.8 01/27/2021 1:04 PM CDT documented in this encounter Functional Status * RETIRED Are you deaf or do you have serious difficulty hearing Answer Date of Assessment Author Status No 08/16/2019 11:28 AM CDT Acti ve * RETIRED Are you blind or do you have serious difficulty seeing, even when wearing glasses? Answer Date of Assessment Author Status No 08/16/2019 11:28 AM CDT Acti ve * Do you have serious difficulty walking or climbing stairs? Answer Date of Assessment Author Status Yes 08/16/2019 11:28 AM CDT Laila Lujan R N Active * Do you have difficulty dressing or bathing? Answer Date of Assessment Author Status No 08/16/2019 11:28 AM CDT Laila Lujan R N Active * Because of a physical, mental, or emotional condition, do you have difficulty doing errands alone such as visiting a doctor's office or shopping? Answer Date of Assessment Author Status Yes 08/16/2019 11:28 AM CDT Laila Lujan R N Active documented as of this encounter Mental Status * Because of a physical, mental, or emotional condition, do you have serious difficulty concentrating, remembering, or making decisions? Answer Entry Date Author Status No 08/16/2019 11:28 AM CDT Laila Lujan R N Active documented in this encounter Progress Notes * Clemencia Miller MD - 01/27/2021 1:20 PM CDT Roxana Ch is an 85-year-old female, presenting for follow-up for her history of overactive bladder with urge incontinence and recurrent UTI. She takes methenamine and vitamin C and has not had a recent breakthrough UTI. On 01/13/2021 she underwent Botox injection. She has noticed a significant improvement in her urinary urgency and frequency. She is only getting up once at night versus 5-6 times per night prior to the procedure. She does not have any dysuria or hematuria. PMH, PSH, SH, FH, Meds reviewed, no changes Blood pressure 124/72, pulse 58, temperature 97.2 ??F (36.2 ??C), temperature source Temporal, height 5' 3 (1.6 m), weight 50.7 kg (111 lb 12.8 oz), SpO2 96 %. Physical Exam Constitutional: She is oriented to person, place, and time. She appears well- developed and well-nourished. HENT: Head: Normocephalic and atraumatic. Eyes: Conjunctivae and EOM are normal. Pulmonary/Chest: Effort normal. No respiratory distress. Abdominal: Soft. Musculoskeletal: Cervical back: Normal range of motion. Neurological: She is alert and oriented to person, place, and time. Skin: Skin is warm. Psychiatric: She has a normal mood and affect. Her behavior is normal. WBC Date Value Ref Range Status 07/10/2020 4.5 4.4 - 11.0 x10'3/uL Final HGB Date Value Ref Range Status 07/10/2020 12.4 12.3 - 15.3 G/DL Final PLT Date Value Ref Range Status 07/10/2020 205 151 - 353 x10'3/uL Final SODIUM Date Value Ref Range Status 07/10/2020 145 136 - 145 MMOL/L Final POTASSIUM Date Value Ref Range Status 07/10/2020 4.2 3.5 - 5.1 MMOL/L Final CHLORIDE S/P/B Date Value Ref Range Status 07/10/2020 108 100 - 108 MMOL/L Final CO2 Date Value Ref Range Status 07/10/2020 29.1 21 - 32 MMOL/L Final ANION GAP Date Value Ref Range Status 07/10/2020 7.9 5 - 15 MMOL/L Final BUN Date Value Ref Range Status 07/10/2020 25 (H) 7 - 18 MG/DL Final CREATININE S/P/B Date Value Ref Range Status 07/10/2020 0.80 0.55 - 1.02 MG/DL Final BUN CREATININE RATIO Date Value Ref Range Status 07/10/2020 31.2 (H) 6 - 26 Final eGFR Non-Afr. Amer. Date Value Ref Range Status 07/10/2020 68 (L) >90 ML/MIN/1.73 M2 Final eGFR Afr. Amer. Date Value Ref Range Status 07/10/2020 78 (L) >90 ML/MIN/1.73 M2 Final Comment: NOTE: eGFR is not calculated for patients <18 years of age. This is an estimated GFR (CKD EPI) and should not be used for calculating drug doses. GLUCOSE Date Value Ref Range Status 07/10/2020 115 (H) 70 - 99 MG/DL Final CALCIUM Date Value Ref Range Status 07/10/2020 9.0 8.5 - 10.1 MG/DL Final TOTAL PROTEIN S/P/B Date Value Ref Range Status 07/10/2020 6.4 6.4 - 8.2 G/DL Final ALBUMIN S/P/B Date Value Ref Range Status 07/10/2020 3.8 3.4 - 5.0 G/DL Final BILIRUBIN TOTAL S/P/B Date Value Ref Range Status 07/10/2020 0.4 0.2 - 1.2 MG/DL Final ALKALINE PHOSPHATASE S/P/B Date Value Ref Range Status 07/10/2020 93 50 - 136 U/L Final AST Date Value Ref Range Status 07/10/2020 32 15 - 37 U/L Final ALT Date Value Ref Range Status 07/10/2020 46 14 - 55 U/L Final 01/27/21 COLOR (U) YELLOW TRANSPARENCY CLEAR GLUCOSE (U) NEGATIVE MG/DL NEGATIVE BILIRUBIN (U) NEGATIVE NEGATIVE U KETONES NEGATIVE MG/DL NEGATIVE Specific [place] (U) 1.001 - 1.035 1.020 BLOOD NEGATIVE NEGATIVE U PH 5.0 - 9.0 5.5 PROTEIN (U) NEGATIVE mg/dL NEGATIVE UROBILINOGEN 0.2 - 1.0 EU/dL = mg/dL 0.2 NITRITES NEGATIVE MG/DL NEGATIVE LEUKOCYTE ESTERASE NEGATIVE NEGATIVE Assessment and plan: 1. Overactive bladder with urge type urinary incontinence. Her symptoms are markedly improved following Botox injection 2 weeks ago. I will plan to have her follow-up in about 3 months. 2. History of recurrent UTI. She has not had a recent breakthrough infection with combination of methenamine, vitamin C and cranberry. CLEMENCIA MILLER MD 01/27/2021 documented in this encounter Plan of Treatment Not on file documented as of this encounter Goals Goal Patient Goal Type Associated Problems Recent Progress Patient-Stated? Author Improve Home Support System General Laura Akbar, RN Return home with [facility] home health General No Malgorzata Brown MSW HOME WITH DAUGHTER General No Laura Cheatham, RN documented as of this encounter Procedures Procedure Name Priority Date/Time Associated Diagnosis Comments URINALYSIS AUTO DIP Routine 01/27/2021 Recurrent UTI documented in this encounter Results * URINALYSIS AUTO DIP (01/27/2021) COLOR (U) YELLOW [facility] (3), [place] TRANSPARENCY CLEAR [facility] (3), [place] GLUCOSE (U) NEGATIVE NEGATIVE MG/DL [facility] (3), [place] BILIRUBIN (U) NEGATIVE NEGATIVE [facility] (3), [place] KETONES MG/DL (U) NEGATIVE NEGATIVE MG/DL [facility] (3), [place] SPECIFIC GRAVITY (U) 1.020 1.001 - 1.[address] (3), [place] BLOOD (U) NEGATIVE NEGATIVE [facility] (3), [place] U PH 5.5 5.0 - 9.[address] (3), [place] PROTEIN (U) NEGATIVE NEGATIVE mg/dL [facility] (3), [place] UROBILINOGEN 0.2 0.2 - 1.0 EU/dL = mg/dL [facility] (3), [place] NITRITES NEGATIVE NEGATIVE MG/DL [facility] (3), [place] LEUKOCYTES (U) NEGATIVE NEGATIVE [facility] (3), [facility] URINE SPECIMEN OBTAINED BY CLEAN CATCH PROCEDURE / Unknown 01/27/2021 us Clemencia Miller MD URINE ORDERABLES Final Result Performing Organization Address City/State/[facility] Co de Phone Number [facility] (3), [place] [address] [place] [address], documented in this encounter Visit Diagnoses Diagnosis Recurrent UTI- Primary Urinary tract infection, site not specified OAB (overactive bladder) Hypertonicity of bladder documented in this encounter Additional Health Concerns Assessment Noted Time PHQ-9 Depression Total Score: 0 01/28/20 21 1:14 PM CDT documented as of this encounter Care Teams Diversified Crops Ii Farmworker Relationship Specialty Start Date End Date Noemi Barnard MD [address] [facility] [address] [place] [address] PCP - General INTERNAL MEDICINE 08/23/18 03/03/23 Joni Mckeon MD [address] [facility] [address] [place] [address] [place] Corporate Aircraft Mechanic CARDIOVASCULAR DISEASE 07/04/18 documented as of this encounter
--- OUTSIDE RECORDS SUMMARY | 2024-04-05 00:12 | XMS_ITS | Encounter Summary ---
Author Organization [facility] Address [facility] [facility] [address] [place] [address] Care Team Providers Care It Associate Name Role Phone Joni Mckeon MD Unavailable [phone] Noemi Barnard MD Primary Care Provider [phone] Reason for Visit * Reason Comments Follow Up Botox Check Encounter Details Date Type Department Care Team (Latest Contact Info) Description 04/16/2021 1:00 PM COMBINATION TECHNICIAN Office Visit [facility] Multispecialty Care - [facility] [address] [facility], [address] [place] [address] Clemencia Miller MD [address] [place] [address] [place] [id number] Follow Up (Botox Check) Social History Tobacco Use Types Packs/Day Years [...] have Coronavirus / COVID-19? No / Unsure 04/16/2021 12:45 PM COMBINATION TECHNICIAN documented as of this encounter Last Filed Vital Signs Vital Sign Reading Time Taken Comments Blood Pressure 106/70 04/16/2021 1:14 PM COMBINATION TECHNICIAN Pulse 74 04/16/2021 1:14 PM COMBINATION TECHNICIAN Temperature 36.7 ??C (98 ??F) 04/16/2021 1:14 PM COMBINATION TECHNICIAN Respiratory Rate - - Oxygen Saturation 95% 04/16/2021 1:14 PM COMBINATION TECHNICIAN Room Air Inhaled Oxygen Concentration - - Weight 49.8 kg (109 lb 12.8 oz) 04/16/2021 1:14 PM COMBINATION TECHNICIAN Height 160 cm (5' 3 ) 04/16/2021 1:14 PM COMBINATION TECHNICIAN Body Mass Index 19.45 04/16/2021 1:14 PM COMBINATION TECHNICIAN documented in this encounter Functional Status * [...] Progress Notes * Clemencia Miller MD - 04/16/2021 1:00 PM CST Roxana Ch is an 85-year-old female, presenting for follow-up for her history of overactive bladder with urge incontinence and recurrent UTI. She takes methenamine and vitamin C and has not had a recent breakthrough UTI. In January 2021 she underwent Botox injection. She has noticed a significant improvement in her urinary urgency and frequency. She is only getting up once at night versus 5-6 times per night prior to the procedure. She does not have any dysuria or hematuria. Her healthhas otherwise been stable. Past Medical History: Diagnosis Date ??? Bladder infection ??? Cancer (CMS/HCC) Past cancer survivor. breast CA ??? Diabetes (CMS/HCC) ??? GERD (gastroesophageal reflux disease) ??? Hyperlipidemia ??? Hypertension ??? Hypothyroidism ??? Insomnia ??? Sepsis (CMS/HCC) ??? SSS (sick sinus syndrome) (CMS/HCC) ??? Urinary tract infection ??? Vitamin D deficiency ??? Weight loss Past Surgical History: Procedure Laterality Date ??? ABDOMINAL SURGERY ??? BREAST REDUCTION BILATERAL ??? CHOLECYSTECTOMY ??? COLONOSCOPY ??? HEMORRHOIDECTOMY ??? HYSTERECTOMY ??? INJECTION BOTOX Bladder ??? INNER EAR SURGERY PROC UNLISTED ??? PACEMAKER 02/15/2020 [facility] ??? PACEMAKER ??? REPAIR ROTATOR CUFF,ACUTE Social History Socioeconomic History ??? Marital status: Spouse name: Not on file ??? Number of children: 7 ??? Years of education: Not on file ??? Highest education level: Not on file Occupational History Employer: RETIRED Tobacco Use ??? Smoking status: Never Smoker ??? Smokeless tobacco: Never Used Vaping Use ??? Vaping Use: Never used Substance and Sexual Activity ??? Alcohol use: No ??? Drug use: No ??? Sexual activity: Not on file Other Topics Concern ??? Service Not Asked ??? Blood Transfusions Not Asked ??? Caffeine Concern Yes ??? Occupational Exposure Not Asked ??? Hobby Hazards Not Asked ??? Sleep Concern Not Asked ??? Stress Concern Not Asked ??? Weight Concern Not Asked ??? Special Diet No ??? Back Care Not Asked ??? Exercise No ??? Bike Helmet Not Asked ??? Seat Belt Not Asked ??? Self-Exams Not Asked ??? Wheelchair Not Asked ??? Walker Not Asked ??? Upper extremity braces/slings Not Asked ??? Lower extermity braces/slings Not Asked ??? Self Care Not Asked Social History Narrative Lives with her daughter Social Determinants of Health Financial Resource Strain: Not on file Food Insecurity: Not on file Transportation Needs: Not on file Physical Activity: Not on file Stress: Not on file Social Connections: Not on file Intimate Partner Violence: Not on file Family History Problem Relation Name Age of Onset ??? Diabetes Other ??? Breast Cancer Other ??? Other (cardiac disorder) Other ??? Heart Attack Mother ??? No Known Problems Father Current Outpatient Medications Medication Instructions ??? AMLODIPINE 5 MG tablet TAKE 1 TABLET BY MOUTH DAILY ??? aspirin EC (ECOTRIN) 81 mg, Oral, Daily ??? BENAZEPRIL 20 MG tablet TAKE 1 TABLET(20 MG) BY MOUTH DAILY ??? Blood Glucose Monitoring Suppl Device 1 Device, Does not apply, Daily, Whatever brand insurancewill pay for ??? donepezil 10 MG Tab Take two tabs PO QAM ??? LEVOTHYROXINE 50 MCG tablet TAKE 1 TABLET(50 MCG) BY MOUTH EVERY MORNING ??? memantine ER (NAMENDA XR) 28 mg, Oral, Daily ??? methenamine 1 g tablet TAKE 1 TABLET(1 GRAM) BY MOUTH TWICE DAILY WITH MEALS ??? Misc. Devices Misc 1 strip, Does not apply, Daily, Whatever brand insurance will pay for ??? MYRBETRIQ 50 MG 24 hr tablet TAKE 1 TABLET(50 MG) BY MOUTH DAILY ??? nitrofurantoin (MACRODANTIN) 50 mg, Oral, Nightly at bedtime ??? OMEPRAZOLE 20 MG capsule TAKE 1 CAPSULE(20 MG) BY MOUTH DAILY ??? ONETOUCH DELICA PLUS [id number] Misc USE ONCE A DAY ??? ONETOUCH VERIO test strip USE TO TEST EVERY DAY ??? PRAVASTATIN 40 MG tablet TAKE 1 TABLET(40 MG) BY MOUTH EVERY NIGHT AT BEDTIME ??? propranolol 10 MG tablet TAKE 1 TABLET BY MOUTH EVERY MORNING AND EVERY NIGHT AT BEDTIME ??? risperiDONE (RISPERDAL) 1.5 mg, Oral, Nightly at bedtime ??? rOPINIRole (REQUIP) 2 mg, Oral, Nightly at bedtime ??? sertraline (ZOLOFT) 100 mg, Oral, Every morning ??? vitamin C (ASCORBIC ACID) 250 mg, Oral, Daily ??? Vitamin D 2,000 Units, Oral, Daily Allergies Allergen Reactions ??? Septra [Sulfamethoxazole-Trimethoprim] Rash Blood pressure 106/70, pulse 74, temperature 98 ??F (36.7 ??C), temperature source Temporal, height5' 3 (1.6 m), weight 49.8 kg (109 lb 12.8 oz), SpO2 95 %. Physical Exam Constitutional: Appearance: She is well-developed. HENT: Head: Normocephalic and atraumatic. Eyes: Conjunctiva/sclera: Conjunctivae normal. Pulmonary: Effort: Pulmonary effort is normal. No respiratory distress. Abdominal: Palpations: Abdomen is soft. Musculoskeletal: Cervical back: Normal range of motion. Skin: General: Skin is warm. Neurological: Mental Status: She is alert and oriented to person, place, and time. Psychiatric: Behavior: Behavior normal. WBC Date Value Ref Range Status [...] NEGATIVE U KETONES NEGATIVE MG/DL NEGATIVE Specific [place] (U) 1.001 - 1.035 1.020 BLOOD NEGATIVE [...] combination of methenamine, vitamin C and cranberry. Doing well. F/U 2 months CLEMENCIA MILLER MD 04/16/2021 INATION TECHNICIAN documented in this encounter Plan of Treatment Not on file documented as of this encounter Goals Goal Patient Goal Type Associated Problems Recent Progress Patient-Stated? Author Improve Home Support System General No Laura Cheatham, RN Return home with [facility] home health General No Malgorzata Brown, CALENDER MACHINE OPERATOR HOME WITH DAUGHTER General No Laura Cheatham RN documented as of this encounter Visit Diagnoses Diagnosis OAB (overactive bladder)- Primary Hypertonicity of bladder Urge incontinence Recurrent UTI Urinary tract infection, site not specified documented in this encounter Additional Health Concerns Assessment Noted Time PHQ-9 Depression Total Score: 0 04/16/19 22 1:13 PM COMBINATION TECHNICIAN documented as of this encounter Care Teams It Associate Relationship Specialty Start Date End Date Noemi Barnard MD Three [facility]. [address] [address] PCP - General INTERNAL MEDICINE 08/23/18 03/03/23 Joni Mckeon MD [facility]. [address] [address] [place] [employer] Sales Consultant CARDIOVASCULAR DISEASE 07/04/18 documented as of this encounter
--- OUTSIDE RECORDS SUMMARY | 2024-04-05 00:12 | XMS_ITS | Encounter Summary ---
Author Organization [facility] Address [address] [place] [address]. [place] [address] [place] [address] Care Team Providers Care Sales Representative Cash Registers Name Role Phone Joni Mckeon MD Unavailable [phone] Noemi Barnard MD Primary Care Provider Reason for Visit * Reason Comments Remote Device Check routine Toney remot e pacemaker check Encounter Details Date Type Department Care Team (Late st Contact Info) Description 12/16/2020 7:40 AM CDT Allied Health/Nurse Visit [facility] [facility] THREE [facility], [facility] [address] [place] [address] Cruzito Mcnulty MD [facility]. [facility] [address] [place], [place] [id number] Remote Device Check ( routine [place] remote pacemaker check) Social History Tobacco Use [...] please move on to questions 3-9 0 01/31/2020 Comments No Sex and Gender Information Value [...] or suspected to have Coronavirus / COVID-19? Unable to assess 12/17/2020 4:17 PM CDT documented as of this encounter Functional Status [...] Progress Notes * Nolvia Thomason RN - 12/16/2020 7:40 AM CDT Routine Toney Pacemaker Remote. Transmission attached. Stable battery voltage, atrial and RV pacing and sensing thresholds. AP %: 66, FLAT LOCK OPERATOR %: 6.8 (0) Recent AT/AF episodes. (0) Ventricular arrhythmias detected. Presenting AP/VS and atrial tracking. MEDS: ASA Follow up: Dr. Mcnulty 03/17/21, Toney 05/05/21 Cosigned by Cruzito Mcnulty MD at 12/20/2020 11:33 AM CDT documented in this encounter Plan of Treatment Not on file documented as of this encounter Goals Goal Patient Goal Type Associated Problems Recent Progress Patient-Stated? Author Improve Home Support System General Laura Akbar, RN Return home with [facility] home health General No IzzyoneilMalgorzata, SUPPLIER DEVELOPMENT MANAGER HOME WITH DAUGHTER General No Laura Cheatham, RN documented as of this encounter Visit Diagnoses Diagnosis SSS (sick sinus syndrome) ([facility]) Sinoatrial node dysfunction documented in this encounter Care Teams Sales Representative Cash Registers Relationship Specialty Start Date End Date Noemi Barnard MD Three [facility]. [address] [address] PCP - General INTERNAL MEDICINE 08/23/18 03/03/23 Joni Mckeon MD Three [facility]. [facility] [address] [place] [address] [place] Revenue Integrity Analyst CARDIOVASCULAR DISEASE 07/04/18 documented as of this encounter
--- OUTSIDE RECORDS SUMMARY | 2024-04-05 00:12 | XMS_ITS | Encounter Summary ---
Author Organization [facility] Address [address] [place] [address]. [place] [address] [place] [address] Care Team Providers Care Vp Legal Affairs Name Role Phone Joni Mckeon MD Unavailable [phone] Noemi Barnard MD Primary Care Provider [phone] Encounter Details Date Type Department Care Team (Latest Contact Info) Description 04/16/2021 Travel Social History Tobacco Use Types Packs/Day Years [...] COVID-19? No / Unsure 04/16/2021 12:45 PM CO TEACHER documented as of this encounter Functional Status [...] Status No 08/16/2019 11:28 AM CDT Laila Lujan, R N Active documented in this encounter Plan of Treatment Not on file documented as of this encounter Goals Goal Patient Goal Type Associated Problems Recent Progress Patient-Stated? Author Improve Home Support System General No Laura Cheatham, RN Return home with [facility] home health General No Malgorzata Brown, GUEST EXPERIENCE SPECIALIST HOME WITH DAUGHTER General No Laura Cheatham, RN documented as of this encounter Visit Diagnoses Not on filedocumented in this encounter Additional Health Concerns Assessment Noted Time PHQ-9 Depression Total Score: 0 04/16/19 22 1:13 PM CO TEACHER documented as of this encounter Care Teams Vp Legal Affairs Relationship Specialty Start Date End Date Noemi Barnard MD [facility]. [facility] [address] [place] [address] PCP - General INTERNAL MEDICINE 08/23/18 03/03/23 Joni Mckeon MD [facility]. [facility] [address] [place] [address] Christopher Vascular Surgeon CARDIOVASCULAR DISEASE 07/04/18 documented as of this encounter
--- OUTSIDE RECORDS SUMMARY | 2024-04-05 00:12 | XMS_ITS | Encounter Summary ---
Author Organization [facility] Address [address] [place] [address]. [place] [address] [place] [address] Care Team Providers Care Signal Maintainer Name Role Phone Joni Mckeon MD Unavailable [phone] Noemi Barnard MD Primary Care Provider [phone] Reason for Visit * Reason Onset Date Comments Medication 12/19/2020 Encounter Details Date Type Department Care Team (Late st Contact Info) Description 12/19/2020 Telephone [facility] Medical Group Family & Internal Medicine [facility] [address] [place] [address] [place] [id number] [place] [id number] Medication Social History Tobacco Use Types Packs/Day Years [...] documented in this encounter Progress Notes * Nuha Ruiz RN - 12/19/2020 10:40 AM CDT Spoke to Krystina & she states that's Roxana's monitor is over 10 years old, wants whatever brand insurance will pay for, states she only tests BS in the morning. * Yen Duran - 12/19/2020 9:41 AM CDT Patient's daugther Krystina called and said that the patient is needing a new blood glucose monitor,lancets, and test strips. Please advise and call Krystina back at [phone]. [facility]acy is [facility] documented in this encounter Plan of Treatment Not on file documented as of this encounter Goals Goal Patient Goal Type Associated Problems Recent Progress Patient-Stated? Author Improve Home Support System General No Laura Cheatham, RN Return home with [facility] home health General No Malgorzata Brown, MANAGER INSIDE HOME WITH DAUGHTER General No Laura Cheatham, RN documented as of this encounter Visit Diagnoses Diagnosis Type 2 diabetes mellitus with stage 3 chronic kidney disease, without long-term current use of insulin, unspecified whether stage 3a or 3b CKD ([facility])- Primary documented in this encounter Care Teams Signal Maintainer Relationship Specialty Start Date End Date Noemi aBrnard MD Three [facility]. [address] [address] PCP - General INTERNAL MEDICINE 08/23/18 03/03/23 Joni Mckeon MD Three [facility]. [address] [address] [place] Financial Report Service Sales Agent CARDIOVASCULAR DISEASE 07/04/18 documented as of this encounter
--- OUTSIDE RECORDS SUMMARY | 2024-04-05 00:12 | XMS_ITS | Encounter Summary ---
Author Organization [facility] Address [address] [place] [address]. [place] [address] [place] [address] Care Team Providers Care Yard Driver Name Role Phone Joni Mckeon MD Unavailable [phone] Noemi Barnard MD Primary Care Provider [phone] Reason for Visit * Reason Onset Date Comments Pre-visit Gap Closure 01/15/2021 Encounter Details Date Type Department Care Team (Late st Contact Info) Description 01/15/2021 Telephone [facility] Family & Internal Medicine [facility] [address] [place] [address] [place] [address] [place] [address] Pre-visit Gap Closure Social History Tobacco Use Types Packs/Day Years [...] 3, please move on to questions 3-9 1 12/26/2020 Comments No Sex and Gender Information Value [...] have Coronavirus / COVID-19? No / Unsure 01/13/2021 1:49 PM CDT documented as of this encounter [...] Status Yes 08/16/2019 11:28 AM CDT Laila Lujan, R N Active * Do you have difficulty dressing or bathing? Answer Date of Assessment Author Status No 08/16/2019 11:28 AM CDT Laila Lujan, R N Active * Because of a physical, mental, or emotional condition, do you have difficulty doing errands alone such as visiting a doctor's office or shopping? Answer Date of Assessment Author Status Yes 08/16/2019 11:28 AM CDT Laila Lujan, R N Active documented as of this encounter Mental Status * Because of a physical, mental, or emotional condition, do you have serious difficulty concentrating, remembering, or making decisions? Answer Entry Date Author Status No 08/16/2019 11:28 AM CDT Laila Lujan, R N Active documented in this encounter Progress Notes * Yulisa Dickey CMA - 01/15/2021 3:05 PM CDT Contacted patient for pre-visit gap closure. I am calling this patient as a patient advocate for the [employer]. My direct extension is [phone]. You can also reach me at: [phone] ([facility]) OR [phone] ([facility]) documented in this encounter Plan of Treatment Not on file documented as of this encounter Goals Goal Patient Goal Type Associated Problems Recent Progress Patient-Stated? Author Improve Home Support System General No Laura Cheatham, RN Return home with [facility] home health General No IzzyoneilMalgorzata, DERRICK BOAT CAPTAIN HOME WITH DAUGHTER General No Laura Cheatham, RN documented as of this encounter Visit Diagnoses Not on filedocumented in this encounter Additional Health Concerns Assessment Noted Time PHQ-9 Depression Total Score: 1 12/27/19 21 11:14 AM CDT documented as of this encounter Care Teams Yard Driver Relationship Specialty Start Date End Date Noemi Barnard MD [facility]. [address] [address] PCP - General INTERNAL MEDICINE 08/23/18 03/03/23 Joni Mckeon MD [facility]. [address] [address] Christopher Assistant Portfolio Manager CARDIOVASCULAR DISEASE 07/04/18 documented as of this encounter
--- OUTSIDE RECORDS SUMMARY | 2024-04-05 00:12 | XMS_ITS | Encounter Summary ---
Author Organization [facility] Address [address] [place] [address]. [place] [address] [place] [address] Care Team Providers Care Hand Alterations Tailor Name Role Phone Joni Mckeon MD Unavailable [phone] Noemi Barnard MD Primary Care Provider [phone] Encounter Details Date Type Department Care Team (Latest Contact Info) Description 09/18/2020 Travel Social History Tobacco Use Types Packs/Day [...] have Coronavirus / COVID-19? Unable to assess 09/18/2020 11:37 AM CDT documented as of this encounter Functional [...] Laura Cheatham, RN Return home with [facility] home health General No Malgorzata Brown, INSTALLATION ENGINEER HOME WITH DAUGHTER General No Laura Cheatham, RN documented as of this encounter Visit Diagnoses Not on filedocumented in this encounter Care Teams Hand Alterations Tailor Relationship Specialty Start Date End Date Noemi Barnard MD [facility]. [address] [address] PCP - General INTERNAL MEDICINE 08/23/18 03/03/23 Joni Mckeon MD Three [facility]. [facility] [address] [place] [address] [place] Doper Operator CARDIOVASCULAR DISEASE 07/04/18 documented as of this encounter
--- OUTSIDE RECORDS SUMMARY | 2024-04-05 00:12 | XMS_ITS | Encounter Summary ---
Author Organization [facility] Address [address] [place] [address]. [place] [address] [place] [address] Care Team Providers Care Property Management Bookkeeper Name Role Phone Joni Mckeon MD Unavailable [phone] Noemi Barnard MD Primary Care Provider [phone] Encounter Details Date Type Department Care Team (Latest Contact Info) Description 01/11/2021 Travel Social History Tobacco Use Types Packs/Day [...] have Coronavirus / COVID-19? No / Unsure 01/11/2021 2:19 PM CDT documented as of this encounter [...] No Laura Cheatham, RN Return home with [facility] home health General No Malgorzata Brown, PROGRAM ATTENDANT HOME WITH DAUGHTER General No Laura Cheatham, RN documented as of this encounter Visit Diagnoses Not on filedocumented in this encounter Additional Health Concerns Assessment Noted Time PHQ-9 Depression Total Score: 1 12/27/19 21 11:14 AM CDT documented as of this encounter Care Teams Property Management Bookkeeper Relationship Specialty Start Date End Date Noemi [facility]ard [facility] [address] [place] [address] PCP - General INTERNAL MEDICINE 08/23/18 03/03/23 Joni Mckeon MD [facility] [address] [place] [address] [place] Knife Setter Grinder Machine CARDIOVASCULAR DISEASE 07/04/18 documented as of this encounter
--- OUTSIDE RECORDS SUMMARY | 2024-04-05 00:12 | XMS_ITS | Encounter Summary ---
Author Organization [facility] Address Replaced by [facility] [place] [address] [place] [address] Care Team Providers Care Lean Process Deployment Consultant Name Role Phone Joni Mckeon MD Unavailable [phone] Noemi Barnard MD Primary Care Provider [phone] Sandra Johnson RN Unavailable [phone] Reason for Visit * Reason Onset Date Comments Hospital Follow Up 05/12/2021 Encounter Details Date Type Department Care Team (Late st Contact Info) Description 05/12/2021 Patient Outreach [facility] Family & Internal Medicine [address] [address] Sandra Johnson, RN [address] [place] [address] Hospital Follow Up Social History [...] Coronavirus/COVID-19? No / Unsure 05/10/2021 1:36 PM TOOL REPAIRER BENCH documented as of this encounter Functional Status * RETIRED Are you deaf or do you have serious difficulty hearing Answer Date of Assessment Author Status Yes 05/11/2021 1:19 AM TOOL REPAIRER BENCH Activ e * RETIRED Are you blind or do you have serious difficulty seeing, even when wearing glasses? Answer Date of Assessment Author Status No 05/11/2021 1:19 AM TOOL REPAIRER BENCH Activ e * Do you have serious difficulty walking or climbing stairs? Answer Date of Assessment Author Status Yes 05/11/2021 1:19 AM TOOL REPAIRER BENCH Aliya Baca RN Active * Do you have difficulty dressing or bathing? Answer Date of Assessment Author Status Yes 05/11/2021 1:19 AM TOOL REPAIRER BENCH Aliya Baca RN Active * Because of a physical, mental, or emotional condition, do you have difficulty doing errands alone such as visiting a doctor's office or shopping? Answer Date of Assessment Author Status Yes 05/11/2021 1:19 AM TOOL REPAIRER BENCH Aliya Baca RN Active documented as of this encounter Mental Status * Because of a physical, mental, or emotional condition, do you have serious difficulty concentrating, remembering, or making decisions? Answer Entry Date Author Status Yes 05/11/2021 1:19 AM Aliya Brooks RN Active documented in this encounter Progress Notes * Sandra Johnson RN - 05/12/2021 9:04 AM CST Patient admitted to [facility] on 05/10/21 for fall. Care coordination team will complete TCM call back upondischarge from hospital. Thank you. REPAIRER BENCH * Melanie Chavez RN - 05/12/2021 9:04 AM CST Noted, thanks REPAIRER BENCH documented in this encounter Plan of Treatment Not on file documented as of this encounter Goals Goal Patient Goal Type Associated Problems Recent Progress Patient-Stated? Author Improve Home Support System General No Laura Cheatham, RN Return home with [facility] home health General No Malgorzata Brown, BATTALION CHIEF HOME WITH DAUGHTER General No Laura Cheatham, roller skate repairer - family caregiver with be involved in care transitions and discharge planning General No Laura Cheatham, RN documented as of this encounter Visit Diagnoses Not on filedocumented in this encounter Additional Health Concerns Assessment Noted Time PHQ-9 Depression Total Score: 0 04/16/19 22 1:13 PM TOOL REPAIRER BENCH documented as of this encounter Care Teams Lean Process Deployment Consultant Relationship Specialty Start Date End Date Noemi Barnard MD [facility]. [facility] [address] [place] [address] PCP - General INTERNAL MEDICINE 08/23/18 03/03/23 Joni Mckeon MD [facility]. [facility] [address] [place], [place] [address] [place] Wet Room Supervisor CARDIOVASCULAR DISEASE 07/04/18 Sandra Johnson, KAILEE [address] [place] [address] Chef De Partie (Ambulatory) REGISTERED NURSE 05/12/21 06/29/21 documented as of this encounter
--- OUTSIDE RECORDS SUMMARY | 2024-04-05 00:12 | XMS_ITS | Encounter Summary ---
Author Organization [facility] Address [facility] [place] [address] [place] [address] Care Team Providers Care Boiler Tube Reamer Name Role Phone Joni Mckeon MD Unavailable [phone] Noemi Barnard MD Primary Care Provider [phone] Reason for Visit * Reason Onset Date Comments Question 01/13/2021 Encounter Details Date Type Department Care Team (Late st Contact Info) Description 01/13/2021 Telephone [facility] Multispecialty Care - [facility] [address] [facility] [place] [address] Giovany Miller MD [address] [place] [address] [place] [address] Question Social History Tobacco Use Types Packs/Day [...] Author Status Yes 08/16/2019 11:28 AM CDT Liala Lujan R N Active documented as of this encounter Mental Status * Because of a physical, mental, or emotional condition, do you have serious difficulty concentrating, remembering, or making decisions? Answer Entry Date Author Status No 08/16/2019 11:28 AM CDT Laila Lujan R N Active documented in this encounter Progress Notes * Nancie Beaulieu MA - 01/13/2021 4:02 PM CDT I spoke with patient's daughter. They were told once patient has botox, she could be able to stop Myrbetriq. I let patient's daughter know the botox takes effect slowly over time, and she would nto notice a change today. I told patient's daughter that discontinuing Myrbetriq could be discussed at the follow up appt that was made, so at that point she would be able to see results in the botox. Let me know if there is anything additional you would like her to know regarding her Anabelle. * Radha Cole - 01/13/2021 3:28 PM CDT Patient's daughter has questions regarding her mother's medication. Please follow up. documented in this encounter Plan of Treatment Not on file documented as of this encounter Goals Goal Patient Goal Type Associated Problems Recent Progress Patient-Stated? Author Improve Home Support System General No Laura Cheatham, RN Return home with [facility] home health General No Malgorzata Brown, BONDING AND COMPOSITE FABRICATOR HOME WITH DAUGHTER General No Laura Cheatham, RN documented as of this encounter Visit Diagnoses Not on filedocumented in this encounter Additional Health Concerns Assessment Noted Time PHQ-9 Depression Total Score: 1 12/27/19 21 11:14 AM CDT documented as of this encounter Care Teams Boiler Tube Reamer Relationship Specialty Start Date End Date Noemi Barnard MD [facility] [address] [place] [address] PCP - General INTERNAL MEDICINE 08/23/18 03/03/23 Joni Mckeon MD [facility] [address] [place] [address] Christopher Curator Of Collections CARDIOVASCULAR DISEASE 07/04/18 documented as of this encounter
--- OUTSIDE RECORDS SUMMARY | 2024-04-05 00:12 | XMS_ITS | Encounter Summary ---
Author Organization [facility] Address [address] [place] [address]. [place] [address] [place] [address] Care Team Providers Care Estimator Name Role Phone Joni Mckeon MD Unavailable Noemi Barnard MD Primary Care Provider [phone] Encounter Details Date Type Department Care Team (Latest Contact Info) Description 03/14/2021 Scan HEALTH INFO SRVCS Scanned, Documents Social History Tobacco Use Types Packs/Day Years [...] COVID-19? No / Unsure 04/16/2021 12:45 PM RESEARCH RECRUITER documented as of this encounter Functional Status [...] No Laura Cheatham, RN Return home with [facility] home health General No Malgorzata Brown MSW HOME WITH DAUGHTER General No Laura Cheatham, RN documented as of this encounter Visit Diagnoses Not on filedocumented in this encounter Additional Health Concerns Assessment Noted Time PHQ-9 Depression Total Score: 0 01/28/20 21 1:14 PM CDT documented as of this encounter Care Teams Estimator Relationship Specialty Start Date End Date Noemi Barnard MD [facility]. [facility] [address] [place] [address] PCP - General INTERNAL MEDICINE 08/23/18 03/03/23 Joni Mckeon MD [facility]. [facility] [address] [place] [address] (work) Christopher Gardening Supervisor CARDIOVASCULAR DISEASE 07/04/18 documented as of this encounter
--- OUTSIDE RECORDS SUMMARY | 2024-04-05 00:12 | XMS_ITS | Encounter Summary ---
Author Organization [facility] Address [address] [place] [address]. [place] [address] [place] [address] Care Team Providers Care Shop Lead Name Role Phone Joni Mckeon MD Unavailable [phone] Noemi Barnard MD Primary Care Provider [phone] Encounter Details Date Type Department Care Team (Latest Contact Info) Description 02/11/2021 Scan HEALTH INFO SRVCS Scanned, Documents Social [...] No Laura Cheatham, RN Return home with [facility] home health General No Malgorzata Brown MSW HOME WITH DAUGHTER General No Laura Cheatham, RN documented as of this encounter Visit Diagnoses Not on filedocumented in this encounter Additional Health Concerns Assessment Noted Time PHQ-9 Depression Total Score: 0 01/28/20 21 1:14 PM CDT documented as of this encounter Care Teams Shop Lead Relationship Specialty Start Date End Date Noemi Barnard MD [address] [place] [address] [place] [address] PCP - General INTERNAL MEDICINE 08/23/18 03/03/23 Joni Mckeon MD [address] [facility] [address] [place] [address] [place] Campus Recruiting Intern CARDIOVASCULAR DISEASE 07/04/18 documented as of this encounter
--- OUTSIDE RECORDS SUMMARY | 2024-04-05 00:12 | XMS_ITS | Encounter Summary ---
Author Organization [facility] Address [facility] [place] [address] [place] [address] Care Team Providers Care Hod Carrier Name Role Phone Joni Mckeon MD Unavailable [phone] Noemi Barnard MD Primary Care Provider [phone] Reason for Visit * Reason Onset Date Comments Medication 03/14/2021 Encounter Details Date Type Department Care Team (Late st Contact Info) Description 03/14/2021 Telephone [facility] Multispecialty Care - [facility] [address] [facility] [place] [address] Giovany Miller MD [address] [place] [address] [place] [address] Medication Social History Tobacco Use Types Packs/Day [...] documented in this encounter Progress Notes * Belle Guido LPN - 03/14/2021 8:41 AM CST Paper script out for Dr. Miller's signature. Patient's daughter aware methenamine is a non-protocolmed and approval is needed by Dr. Miller for re-order. BUYER * Donna Hardin - 03/14/2021 8:27 AM CST Patient's daughter called and stated that [facility] still has not yet received a script for Methenamine. Transferred to Belle. BUYER documented in this encounter Plan of Treatment Not on file documented as of this encounter Goals Goal Patient Goal Type Associated Problems Recent Progress Patient-Stated? Author Improve Home Support System General No Laura Cheatham, RN Return home with [facility] home health General No IzzyoneilMalgorzata, LAB SUPPORT TECH HOME WITH DAUGHTER General No Laura Cheatham, RN documented as of this encounter Visit Diagnoses Not on filedocumented in this encounter Additional Health Concerns Assessment Noted Time PHQ-9 Depression Total Score: 0 01/28/20 21 1:14 PM CDT documented as of this encounter Care Teams Hod Carrier Relationship Specialty Start Date End Date Noemi Barnard MD Three [facility]. [facility] [address] [place], [place] [address] PCP - General INTERNAL MEDICINE 08/23/18 03/03/23 Joni Mckeon MD Three [facility]. [facility] [address] [place] [address] Dexter Snaker Tractor Driver CARDIOVASCULAR DISEASE 07/04/18 documented as of this encounter
--- OUTSIDE RECORDS SUMMARY | 2024-04-05 00:12 | XMS_ITS | Encounter Summary ---
Author Organization [facility] Address [address] [place] [address]. [place] [address] [place] [address] Care Team Providers Care Private Equity Analyst Name Role Phone Joni Mckeon MD Unavailable [phone] Noemi Barnard MD Primary Care Provider [phone] Reason for Visit * Reason Onset Date Comments Refill Request 10/31/2020 Methenamine Encounter Details Date Type Department Care Team (Late st Contact Info) Description 10/31/2020 Telephone [facility] Group Multispecialty Care - [facility] [address] [facility], [address] [place] [address] Clemencia Miller MD [address] [place] [address] [place] [address] Refill Request (Methenamine) Social History Tobacco Use Types Packs/Day Years [...] 08/16/2019 11:28 AM CDT Laila Lujan R Lolly Active documented in this encounter Progress Notes * Clemencia Miller MD - 10/31/2020 4:48 PM CDTAddended by: CLEMENCIA MILLER on: 10/31/2020 04:48 PM Modules accepted: Orders * Belle Guido LPN - 10/31/2020 3:44 PM CDT Fax received for Medication Refills. Medication: methenamine 1 gm tablet Last OV: 06/17/2020 Next OV: 12/26/2020 Last fill: 03/24/2021 #60 with 3 refills Pharmacy: [facility] in [place], [place] Please fill script. documented in this encounter Plan of Treatment Not on file documented as of this encounter Goals Goal Patient Goal Type Associated Problems Recent Progress Patient-Stated? Author Improve Home Support System General No Laura Cheatham, RN Return home with [facility] home health General No Malgorzata Brown, FILM WAXER HOME WITH DAUGHTER General No Laura Cheatham, RN documented as of this encounter Visit Diagnoses Diagnosis Recurrent UTI Urinary tract infection, site not specified documented in this encounter Care Teams Private Equity Analyst Relationship Specialty Start Date End Date Noemi Barnard MD Three [facility]. [address] [address] PCP - General INTERNAL MEDICINE 08/23/18 03/03/23 Joni Mckeon MD Three [facility]. [address] [address] [place] Plumber Assistant CARDIOVASCULAR DISEASE 07/04/18 documented as of this encounter
--- OUTSIDE RECORDS SUMMARY | 2024-04-05 00:12 | XMS_ITS | Encounter Summary ---
Author Organization [facility] Address [address] [place] [address]. [place] [address] [place] [address] Care Team Providers Care Topography Technician Name Role Phone Joni Mckeon MD Unavailable [phone] Neomi Barnard MD Primary Care Provider [phone] Encounter Details Date Type Department Care Team (Latest Contact Info) Description 01/27/2021 Travel Social History Tobacco Use Types Packs/Day [...] No Laura Cheatham, RN Return home with [facility] home health General No Malgorzata Brown, IRONWORKER HOME WITH DAUGHTER General No Laura Cheatham, RN documented as of this encounter Visit Diagnoses Not on filedocumented in this encounter Additional Health Concerns Assessment Noted Time PHQ-9 Depression Total Score: 0 01/28/20 21 1:14 PM CDT documented as of this encounter Care Teams Topography Technician Relationship Specialty Start Date End Date Noemi Barnard [facility] [address] [place] [address] PCP - General INTERNAL MEDICINE 08/23/18 03/03/23 Joni Mckeon MD [facility] [address] [place] [address] [place] CARDIOVASCULAR DISEASE 07/04/18 documented as of this encounter
--- OUTSIDE RECORDS SUMMARY | 2024-04-05 00:12 | XMS_ITS | Encounter Summary ---
Author Organization [facility] Address [facility] [address] [place] [address] Care Team Providers Care Real Estate Listing Consultant Name Role Phone Joni Mckeon MD Unavailable [phone] Noemi Barnard MD Primary Care Provider [phone] Encounter Details Date Type Department Care Team (Latest Contact Info) Description 01/06/2021 11:35 AM CDT - 01/06/2021 11:59 PM CDT Hospital Encounter [facility] [address] [place] [address] Giovany Miller MD [address] [place] [address] [place] [address] Discharge Disposition: Home or Self Care (Routine Discharge) Social History Tobacco Use Types Packs/Day Years [...] have Coronavirus / COVID-19? No / Unsure 01/06/2021 11:37 AM CDT documented as of this [...] R N Active documented in this encounter Medications at Time of Discharge aspirin EC 81 MG EC tabletIndications:A nticoagulant Therapy Take 81 mg by mouth daily. 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 Whatever brand insurance will pay for 100 Device 1 Cholecalciferol (VITAMIN D) 2000 units CapIndications:Nutr itional Support Take 2,000 Units by mouth daily. Indications: Nutritional Support 8 donepezil 10 MG Tab Take two tabs PO QAM 0 memantine ER 28 MG 24 hr capsule Take 28 mg by mouth daily. methenamine 1 g tabletIndications:R ecurrent UTI TAKE 1 TABLET(1 GRAM) BY MOUTH TWICE DAILY WITH MEALS 60 tablet 3 1 Misc. 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 Whatever brand insurance will pay for 100 strip 1 propranolol 10 MG tablet TAKE 1 TABLET BY MOUTH EVERY MORNING AND EVERY NIGHT AT BEDTIME 1 rOPINIRole 2 MG tablet Take 2 mg by mouth nightly at bedtime. sertraline 100 MG tabletIndications:D epression Take 100 mg by mouth every morning. Indications: Depression 0 vitamin C 250 MG tablet Take 250 mg by mouth daily. AMLODIPINE 5 MG tablet TAKE 1 TABLET BY MOUTH DAILY 90 tablet 1 1 03/06/20 21 BENAZEPRIL 20 MG tablet TAKE 1 TABLET(20 MG) BY MOUTH DAILY 90 tablet 1 1 03/25/20 21 cephALEXin 500 MG capsule Take 1 capsule (500 mg total) by mouth 2 (two) times daily for 7 days. 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 Whatever brand insurance will pay for 100 each 1 03/19/20 21 levothyroxine 50 MCG tabletIndications:H ypothyroidism, unspecified type TAKE 1 TABLET(50 MCG) BY MOUTH EVERY MORNING 90 tablet 1 1 03/06/20 21 MYRBETRIQ 50 MG 24 hr tabletIndications:O AB (overactive bladder) TAKE 1 TABLET(50 MG) BY MOUTH DAILY 30 tablet 3 1 05/12/19 22 nitrofurantoin 50 MG capsuleIndications: Recurrent UTI Take 1 capsule (50 mg total) by mouth nightly at bedtime. 30 capsule 2 0 05/11/19 22 omeprazole 20 MG capsuleIndications: Gastroesophageal reflux disease with esophagitis, unspecified whether hemorrhage Take 1 capsule (20 mg total) by mouth daily. 90 capsule 1 1 03/26/20 21 pravastatin 40 MG tabletIndications:H yperlipidemia, unspecified hyperlipidemia type TAKE 1 TABLET(40 MG) BY MOUTH EVERY NIGHT AT BEDTIME 90 tablet 1 1 03/06/20 21 risperiDONE 1 MG tablet Take 1 mg by mouth nightly at bedtime. 03/24/20 21 documented as of this encounter Plan of Treatment Not on file documented as of this encounter Goals Goal Patient Goal Type Associated Problems Recent Progress Patient-Stated? Author Improve Home Support System General No Laura Cheatham RN Return home with [facility] home health General No Malgorzata Brown MSW HOME WITH DAUGHTER General No Laura Cheatham RN documented as of this encounter Procedures Procedure Name Priority Date/Time Associated Diagnosis Comments URINE BACTERIA CULTURE Routine 01/06/2021 11:38 AM CDT Recurrent UTI documented in this encounter Results * (ABNORMAL) CULTURE URINE (01/06/2021 11:38 AM CDT) SPEC DESCRIPTION URINE CLEAN CATCH 01/06/2021 11:39 AM CDT [facility] SPECIAL REQUESTS NO SPECIAL REQUEST 01/06/2021 11:39 AM CDT [facility] CULTURE RESULT 50,000-100, 000 COL/ML ESCHERICHIA COLI (A) 01/07/2021 9:03 PM CDT [facility] URINE SPECIMEN OBTAINED BY CLEAN CATCH PROCEDURE / Unknown 01/06/2021 11:38 AM CDT 01/06/2021 11:57 AM CDT Narrative Organism Antibiotic Method Susceptibility Escherichia coli AMPICILLIN FELIX (VITEK) 4: Sensitive Escherichia coli AMPICILLIN/SULBACTAM FELIX (VITEK) <=2: Sensitive Escherichia coli CEFTRIAXONE FELIX (VITEK) <=1: Sensitive Escherichia coli CEFTAZIDIME FELIX (VITEK) <=1: Sensitive Escherichia coli CEFAZOLIN FELIX (VITEK) <=4: Sensitive Escherichia coli ESBL FELIX (VITEK) NEG: Sensitive Escherichia coli NITROFURANTOIN FELIX (VITEK) <=16: Sensitive Escherichia coli GENTAMICIN FELIX (VITEK) <=1: Sensitive Escherichia coli LEVOFLOXACIN FELIX (VITEK) <=0.12: Sensitive Escherichia coli PIPRACIL/TAZO FELIX (VITEK) <=4: Sensitive Escherichia coli TRIMETH-SULFAMETH. FELIX (VITEK) <=20: Sensitive us Giovany Miller MD MICROBIOLOGY - GENERAL ORDERAB LES Final Result Performing Organization Address City/State/[facility] Co de Phone Number [facility] [address] [place] [address], [place] [phone] [facility] [address] [place] [address], documented in this encounter Visit Diagnoses Diagnosis Recurrent UTI Urinary tract infection, site not specified documented in this encounter Additional Health Concerns Assessment Noted Time PHQ-9 Depression Total Score: 1 12/27/19 21 11:14 AM CDT documented as of this encounter Care Teams Real Estate Listing Consultant Relationship Specialty Start Date End Date Noemi Barnard MD [address] [address] PCP - General INTERNAL MEDICINE 08/23/18 03/03/23 Joni Mckeon MD [address] [address] [place] Digital Marketing Specialist CARDIOVASCULAR DISEASE 07/04/18 documented as of this encounter
--- OUTSIDE RECORDS SUMMARY | 2024-04-05 00:12 | XMS_ITS | Encounter Summary ---
Author Organization [facility] Address [address] [place] [address]. [place] [address] [place] [address] Care Team Providers Care Stage Electrician Helper Name Role Phone Joni Mckeon MD Unavailable [phone] Noemi Barnard MD Primary Care Provider [phone] Encounter Details Date Type Department Care Team (Latest Contact Info) Description 12/26/2020 Travel Social History Tobacco Use Types Packs/Day [...] have Coronavirus / COVID-19? No / Unsure 12/26/2020 10:12 AM CDT documented as of this encounter [...] No Laura Cheatham, RN Return home with [facility] home health General No Malgorzata Brown, CANDLE WRAPPING MACHINE OPERATOR HOME WITH DAUGHTER General No Laura Cheatham, RN documented as of this encounter Visit Diagnoses Not on filedocumented in this encounter Additional Health Concerns Assessment Noted Time PHQ-9 Depression Total Score: 1 12/27/19 21 11:14 AM CDT documented as of this encounter Care Teams Stage Electrician Helper Relationship Specialty Start Date End Date Noemi [facility] [place] [address] PCP - General INTERNAL MEDICINE 08/23/18 03/03/23 Joni Mckeon [facility] [address] [place] [address] [place] Drawing Frame Tender CARDIOVASCULAR DISEASE 07/04/18 documented as of this encounter
--- OUTSIDE RECORDS SUMMARY | 2024-04-05 00:12 | XMS_ITS | Encounter Summary ---
Author Organization [facility] Address [address] [place] [address]. [place] [address] [place] [address] Care Team Providers Care Blending Line Attendant Name Role Phone Joni Mckeon MD Unavailable [phone] Noemi Barnard MD Primary Care Provider [phone] Encounter Details Date Type Department Care Team (Latest Contact Info) Description 01/13/2021 Travel Social History Tobacco Use Types Packs/Day [...] No Laura Cheatham, RN Return home with [facility] home health General No Malgorzata Brown, CLINIC RECEPTIONIST HOME WITH DAUGHTER General No Laura Cheatham, RN documented as of this encounter Visit Diagnoses Not on filedocumented in this encounter Additional Health Concerns Assessment Noted Time PHQ-9 Depression Total Score: 1 12/27/19 21 11:14 AM CDT documented as of this encounter Care Teams Blending Line Attendant Relationship Specialty Start Date End Date Noemi Barnard [facility] [facility] [address] [place] [address] PCP - General INTERNAL MEDICINE 08/23/18 03/03/23 Joni Mckeon [facility] [address] [address] [facility] [address] [place] [address] [place] Tin Plater CARDIOVASCULAR DISEASE 07/04/18 documented as of this encounter
--- OUTSIDE RECORDS SUMMARY | 2024-04-05 00:12 | XMS_ITS | Encounter Summary ---
Author Organization [facility] Address [address] [place] [address]. [place] [address] [place] [address] Care Team Providers Care Ten Pin Bowling Centre Manager Name Role Phone Joni Mckeon MD Unavailable Noemi Barnard MD Primary Care Provider [phone] Encounter Details Date Type Department Care Team (Latest Contact Info) Description 01/23/2021 Travel Social History Tobacco Use Types Packs/Day [...] please move on to questions 3-9 0 01/23/2021 Comments No Sex and Gender Information Value [...] have Coronavirus / COVID-19? No / Unsure 01/23/2021 2:33 PM CDT documented as of this encounter [...] Cheatham, RN Return home with [facility] home health General No Malgorzata Brown, METER/RELAY TECHNICIAN HOME WITH DAUGHTER General No Laura Cheatham, RN documented as of this encounter Visit Diagnoses Not on filedocumented in this encounter Additional Health Concerns Assessment Noted Time PHQ-9 Depression Total Score: 0 01/24/20 21 2:50 PM CDT documented as of this encounter Care Teams [place] Manager Relationship Specialty Start Date End Date Noemi [facility]ard [facility] [facility] [address] [place] [address] PCP - General INTERNAL MEDICINE 08/23/18 03/03/23 Joni Mckeon [facility] [address] [facility] [address] [place] [address] [place] Trolley Wire Installer CARDIOVASCULAR DISEASE 07/04/18 documented as of this encounter
--- OUTSIDE RECORDS SUMMARY | 2024-04-05 00:12 | XMS_ITS | Encounter Summary ---
Author Organization [facility] Address [address] [place] [address]. [place] [address] [place] [address] Care Team Providers Care Linoleum Installer Name Role Phone Joni Mckeon MD Unavailable [phone] Noemi Barnard MD Primary Care Provider [phone] Encounter Details Date Type Department Care Team (Latest Contact Info) Description 01/03/2021 Scan HEALTH INFO SRVCS Scanned, Documents Social [...] No Laura Cheatham, RN Return home with [facility] home health General No Malgorzata Brown MSW HOME WITH DAUGHTER General No Laura Cheatham, RN documented as of this encounter Visit Diagnoses Not on filedocumented in this encounter Additional Health Concerns Assessment Noted Time PHQ-9 Depression Total Score: 1 12/27/19 21 11:14 AM CDT documented as of this encounter Care Teams Linoleum Installer Relationship Specialty Start Date End Date Noemi Barnard MD [address] [place] [address] [place] [address] PCP - General INTERNAL MEDICINE 08/23/18 03/03/23 Joni Mckeon MD [address] [facility] [address] [place] [address] Christopher Animal Ride Attendant CARDIOVASCULAR DISEASE 07/04/18 documented as of this encounter
--- OUTSIDE RECORDS SUMMARY | 2024-04-05 00:12 | XMS_ITS | Encounter Summary ---
Author Organization [facility] Address [address] [place] [address]. [place] [address] [place] [address] Care Team Providers Care Family And Consumer Education Teacher Name Role Phone Joni Mckeon MD Unavailable [phone] Noemi Barnard MD Primary Care Provider [phone] Encounter Details Date Type Department Care Team (Latest Contact Info) Description 05/10/2021 Travel Social History Tobacco Use Types Packs/Day [...] Coronavirus/COVID-19? No / Unsure 05/10/2021 1:36 PM MEDICAID BILLING CLERK documented as of this encounter Functional Status [...] No Laura Cheatham, RN Return home with [facility] home health General No Malgorzata Brown, AUTOMOBILE TIRE BUILDER HOME WITH DAUGHTER General No Laura Cehatham, RN documented as of this encounter Visit Diagnoses Not on filedocumented in this encounter Additional Health Concerns Assessment Noted Time PHQ-9 Depression Total Score: 0 04/16/19 22 1:13 PM MEDICAID BILLING CLERK documented as of this encounter Care Teams Family And Consumer Education Teacher Relationship Specialty Start Date End Date Noemi Barnard [facility] [address] [address] [facility] [address] [place] [address] PCP - General INTERNAL MEDICINE 08/23/18 03/03/[address] [facility] [address] [facility] [address] [place] [address] [place] Tv News Director CARDIOVASCULAR DISEASE 07/04/18 documented as of this encounter
--- OUTSIDE RECORDS SUMMARY | 2024-04-05 00:12 | XMS_ITS | Encounter Summary ---
Author Organization [facility] Address [address] [place] [address]. [place], [place] [id number] [place] [id number] Care Team Providers Care Beam Carrier Hauler Pusher Name Role Phone Joni Mckeon MD Unavailable [phone] Elaina Jade MD Primary Care Provider [phone] Sandra Johnson RN Unavailable [phone] Reason for Referral * Imaging (Urgent) - Closed Specialty Diagnoses / Procedures Referred By Contac t Referred To Contact RADIOLOGY Procedures USE ECHOCARDIOGRAM Leia Jin MD 1 [place] [address] Phone: tel: [phone] fax: Referral ID Status Reason Start Date Expiration Date Visits Re quested Visits Authorized [id number] Closed 05/11/2021 06/07/2022 1 1 ING FOREMAN * (Routine) - Canceled Specialty Diagnoses / Procedures Referred By Contac t Referred To Contact Procedures PT eval and treat Leia Jin MD 1 [place] [address] Phone: tel: [phone] fax: Referral ID Status Reason Start Date Expiration Date V isits Requested Visits Authorized [id number] Canceled 05/11/2021 06/07/2022 1 1 ING FOREMAN * (Routine) - Canceled Specialty Diagnoses / Procedures Referred By Eugenie t Referred To Contact Procedures OT eval and treat Leia Jin MD [address] [place] [address] Phone: tel: [phone] fax: Referral ID Status Reason Start Date Expiration Date V isits Requested Visits Authorized [id number] Canceled 05/11/2021 06/07/2022 1 1 ING FOREMAN * Imaging (Emergency) - Closed Specialty Diagnoses / Procedures Referred By Eugenie crain Referred To Contact RADIOLOGY Procedures CT HEAD WO CON Nubia Allen, VOLUNTEER FIREFIGHTER Phone: tel: fax: Referral ID Status Reason Start Date Expiration Date Visits Re quested Visits Authorized [id number] Closed 05/10/2021 06/07/2022 1 1 ING FOREMAN Reason for Visit * Reason Comments Fall * Auth/Cert Specialty Diagnoses / Procedures Referred By Eugenie crain Referred To Contact Diagnoses Weakness NSTEMI (non-ST elevated myocardial infarction) ([facility]/HCC [facility]HCC) NSTEMI (non-ST elevated myocardial infarction) ([facility]) Procedures NONE Referral ID Status Reason Start Date Expiration Date Visits Re quested Visits Authorized [id number] 1 1 Encounter Details Date Type Department Care Team (Late st Contact Info) Description 05/10/2021 2:44 PM RIGGING FOREMAN - 05/14/2021 1:15 PM RIGGING FOREMAN Hospital Encounter [facility] [address] [place], [place] [id number] Jeffery Zhong, DO [address] [place] [id number] Nubia Allen NP [address] [address] Leia Jin MD 1 [place] [address] [phone] (Work) Jennifer Grady MD [facility] [place], [place] [address] [phone] (Work) Ludy Coon NP [address] [place], [place] [address] Fall Discharge Disposition[facility] Social History Tobacco Use Types Packs/Day Years [...] Coronavirus/COVID-19? No / Unsure 05/10/2021 1:36 PM RIGGING FOREMAN documented as of this encounter Last Filed Vital Signs Vital Sign Reading Time Taken Comments Blood Pressure 154/70 05/14/2021 7:00 AM RIGGING FOREMAN Pulse 63 05/14/2021 7:00 AM RIGGING FOREMAN Temperature 36.8 ??C (98.3 ??F) 05/14/2021 7:00 AM CS T Respiratory Rate 18 05/14/2021 7:00 AM RIGGING FOREMAN Oxygen Saturation 95% 05/14/2021 7:00 AM RIGGING FOREMAN Inhaled Oxygen Concentration - - Weight 49.5 kg (109 lb 2 oz) 05/14/2021 5:00 AM RIGGING FOREMAN Height 162.6 cm (5' 4 ) 05/11/2021 12:55 AM RIGGING FOREMAN Body Mass Index 18.73 05/11/2021 12:55 AM RIGGING FOREMAN documented in this encounter Functional Status * Question Answer Date of Assessment Author Status Do you have serious difficulty walking or climbing stairs? Yes 05/11/2021 1:19 AM Aliya Brooks RN Act baljit * Question Answer Date of Assessment Author Status Do you have difficulty dressing or bathing? Yes 05/11/2021 1:19 AM Aliya Brooks RN Active Because of a physical, mental, or emotional condition, do you have difficulty doing errands alone such as visiting a doctor's office or shopping? Yes 05/11/2021 1:19 AM Aliya Brooks RN Acti ve * RETIRED Are you deaf or do you have serious difficulty hearing Answer Date of Assessment Author Status Yes 05/11/2021 1:19 AM RIGGING FOREMAN Activ e * RETIRED Are you blind or do you have serious difficulty seeing, even when wearing glasses? Answer Date of Assessment Author Status No 05/11/2021 1:19 AM RIGGING FOREMAN Activ e * Do you have serious [...] as of this encounter Mental Status * Question Answer Entry Date Author Status Because of a physical, mental, or emotional condition, do you have serious difficulty concentrating, remembering, or making decisions? Yes 05/11/2021 1:19 AM Aliya Brooks RN Active * Because of a physical, mental, or emotional condition, do you have serious difficulty concentrating, remembering, or making decisions? Answer Entry Date Author Status Yes 05/11/2021 1:19 AM RIGGING FOREMAN Aliya Baca RN Active documented in this encounter Discharge Summaries * Ludy Coon NP - 05/14/2021 9:58 AM CST Hospitalist Discharge Summary Patient ID: Aviva Ch. female. 1935. Admit date: 05/10/2021 2:44 PM Discharge date and time: 05/14/21 Admitting Physician: Leia Davenport MD Primary Care Physician: ELAINA JADE MD Discharge Physician: LUDY COON NP Discharge Diagnosis: NSTEMI Hospital Course: Aviva Ch is a 85-year-old female with past medical history significant for diabetes, hypertension, dyslipidemia, GERD, depression, hypothyroidism, dementia, presented after a fall. She wasbrought in by her daughter, who stated that the patient normally uses a cane but was unable to get herself off of the ground 2/5 after a fall. She has apparently had progressive weakness over the past few weeks and been falling more recently. She is normally able to ambulate without assistance other than the cane. Admitted for further work-up and care. Pt was noted to have elevated trop, ED provider discussed w family, declined transfer, intervention or heparin treatment. Pt is deaf, denied chest pain via written communication. She was admitted and per above family declined intervention for NSTEMI. Troponin trended down. Cardiology was consulted and recommended aspirin and statin with follow-up with primary computer publisher as outpatient. Family requested placement, social work was consulted and patient was accepted to [facility]. By 05/14 she was hemodynamically stable to discharge to [facility] for continued care. Consults: cards Discharge Exam: Filed Vitals: 05/13/21 1620 05/13/21 2020 05/14/21 0500 05/14/21 0700 BP: 108/45 (!) 143/63 (!) 142/59 (!) 154/70 Pulse: 63 72 61 63 Resp: 18 18 18 18 Temp: 97.6 ??F (36.4 ??C) 98.4 ??F (36.9 ??C) 98.7 ??F (37.1 ??C) 98.3 ??F (36.8 ??C) TempSrc: Temporal Temporal Temporal Tympanic SpO2: 95% 96% 95% 95% Weight: 49.5 kg (109 lb 2 oz) Height: Physical Exam : GENERAL: no acute distress, well nourished, well developed HEENT: mucous membranes moist , deaf RESPIRATORY: respirations even and unlabored, clear breath sounds, no wheezes, or crackles noted CARDIAC: regular rate and rhythm, no murmur or JVD, no peripheral edema GI: nontender, nondistended, bowel sounds present, no obvious masses MUSC: ROM grossly intact NEURO: . Alert, no gross deficit SKIN: No rashes , skin is warm and dry LYMPH: No obvious lymphadenopathy PSYCH: Alert, appropriate Code Status: DNR Discharge Medications: Medication List CONTINUE taking these medications Morning Afternoon Evening Bedtime As Needed amLODIPine 5 MG tablet Commonly known as: NORVASC TAKE 1 TABLET BY MOUTH DAILY Last time this was given: 5 mg on May 14, 2021 9:05 AM aspirin EC 81 MG tablet Commonly known as: ECOTRIN Take 81 mg by mouth daily. Indications: Anticoagulant Therapy Last time this was given: 81 mg on May 14, 2021 9:04 AM benazepril 20 MG tablet Commonly known as: LOTENSIN TAKE 1 TABLET(20 MG) BY MOUTH DAILY Blood Glucose Monitoring Suppl Kerline 1 Device by Does not apply route daily. Whatever brand insurance will pay for donepezil 10 MG Tabs Commonly known as: ARICEPT Take two tabs PO QAM Last time this was given: 10 mg on May 14, 2021 9:05 AM levothyroxine 50 MCG tablet Commonly known as: SYNTHROID TAKE 1 TABLET(50 MCG) BY MOUTH EVERY MORNING Last time this was given: 50 mcg on May 14, 2021 6:27 AM memantine ER 28 MG 24 hr capsule Commonly known as: NAMENDA XR Take 28 mg by mouth daily. Last time this was given: Ask your nurse or doctor methenamine 1 g tablet Commonly known as: HIPREX TAKE 1 TABLET(1 GRAM) BY MOUTH TWICE DAILY WITH MEALS Last time this was given: 1 g on May 14, 2021 9:03 AM Misc. Devices Misc 1 strip by Does not apply route daily. Whatever brand insurance will pay for omeprazole 20 MG capsule Commonly known as: PriLOSEC TAKE 1 CAPSULE(20 MG) BY MOUTH DAILY OneTouch Delica Plus [id number] Misc USE ONCE A DAY OneTouch Verio test strip USE TO TEST EVERY DAY Generic drug: Glucose Blood pravastatin 40 MG tablet Commonly known as: PRAVACHOL TAKE 1 TABLET(40 MG) BY MOUTH EVERY NIGHT AT BEDTIME propranolol 10 MG tablet Commonly known as: INDERAL TAKE 1 TABLET BY MOUTH EVERY MORNING AND EVERY NIGHT AT BEDTIME Last time this was given: 10 mg on May 14, 2021 9:03 AM risperiDONE 0.5 MG tablet Commonly known as: RisperDAL Take 1.5 mg by mouth nightly at bedtime. Last time this was given: 1.5 mg on May 13, 2021 8:28 PM rOPINIRole 2 MG tablet Commonly known as: REQUIP Take 2 mg by mouth nightly at bedtime. Last time this was given: 2 mg on May 13, 2021 8:29 PM sertraline 100 MG tablet Commonly known as: ZOLOFT Take 100 mg by mouth every morning. Indications: Depression Last time this was given: 100 mg on May 14, 2021 9:05 AM vitamin C 250 MG tablet Commonly known as: ASCORBIC ACID Take 250 mg by mouth daily. Last time this was given: 250 mg on May 14, 2021 9:04 AM Vitamin D 50 MCG (2000 UT) Caps Take 2,000 Units by mouth daily. Indications: Nutritional Support Last time this was given: Ask your nurse or doctor Diagnostic Data CT head 1. No acute intracranial process. ?? 2. Volume loss and small vessel disease. ?? 3. Cerebrovascular atherosclerosis. ? XR T spine No fracture or subluxation.? CXR Chronic interstitial infiltrates in the upper lobes.? XR pelvis No fracture or dislocation.? Results for orders placed or performed during the hospital encounter of 05/10/21 ECG 12 lead ?? Narrative ?[facility] ?Te st Date: ?2021-05-10 Pat Name: ?AVIVA CH ?Department: ?Room: ?122 Gender: ?Female ?Certified Court Interpreter: ? : ?1935 ?Requested By: NUBIA MAURIZIO Order Number: [id number] ?Reading MD: ?Michael Jade ?Measurements Intervals ?[place] ? Rate: ?66 ?P: ?78 FL: ?252 ?QRS: ?9 QRSD: ?139 ?T: ?41 QT: ?448 ? QTc: ?469 ?Interpretive Statements ELECTRONIC ATRIAL PACEMAKER INDETERMINATE AXIS RIGHT BUNDLE BRANCH BLOCK ?? Compared to ECG 02/15/2020 14:41:45 Indeterminate axis now present ING FOREMAN ECG 12 lead ?? Narrative ?[facility] ?Te st Date: ?2021-05-10 Pat Name: ?AVIVA CH ?Department: ?Room: ?122 Gender: ?Female ?Certified Court Interpreter: ? : ?1935 ?Requested By: JEFFERY DAINBERROSS Order Number: [id number] ?Reading MD: ?Michael Jade ?Measurements Intervals ?[place] ? Rate: ?62 ?P: ?95 FL: ?282 ?QRS: ?1 QRSD: ?138 ?T: ?-2 QT: ?474 ? QTc: ?482 ?Interpretive Statements ELECTRONIC ATRIAL PACEMAKER INDETERMINATE AXIS INTRAVENTRICULAR CONDUCTION DELAY ?? INFERIOR MYOCARDIAL INFARCTION , PROBABLY OLD Compared to ECG 05/10/2021 15:25:31 Intraventricular conduction delay now present Myocardial infarct finding now present Right bundle-branch block no longer present ING FOREMAN Assessment and Plan: NSTEMI Presented with fall Noted elevated troponin, trending down Continue aspirin, statin Family declines heparin or cardiac cath Cardiology consulted, appreciate recommendation Prelim echo shows normal EF, no clear wall motion abnormalities Follow up with Dr. Mckeon in 4-6 weeks ?? Hypertension Continue home medications with norvasc, benazepril Monitor and adjust as needed ?? DM2 Accu-Cheks with SSI A1c ?? HLD Statin? Dementia Lives with family, will need PT and OT to evaluate, daughter states that they're unable to manage her if she can't walk at home Cont home meds ?? Hypothyroidism: Continue home regimen ?? GERD: PPI ?? SSS: S/p pacer ?? Underweight: BMI 18.3 Encourage PO intake Disposition: SNF Followup Lab Orders: Time Spent on Discharge 35mins Signed: LUDY COON NP Cosigned by Heraclio Cosme MD at 05/14/2021 1:50 PM RIGGING FOREMAN ING FOREMAN ING FOREMAN documented in this encounter Medications at Time of Discharge AMLODIPINE 5 MG tablet TAKE 1 TABLET BY MOUTH DAILY 90 tablet 1 aspirin EC 81 MG EC tabletIndications:A nticoagulant Therapy Take 81 mg by mouth daily. Indications: Anticoagulant Therapy 8 BENAZEPRIL 20 MG tablet TAKE 1 TABLET(20 MG) BY MOUTH DAILY 90 tablet 3 1 Blood Glucose Monitoring Suppl DeviceIndications:T ype 2 diabetes mellitus with stage 3 chronic kidney disease, without long-term current use of insulin, unspecified whether stage 3a or 3b CKD ([facility] HHS/HCC) 1 Device by Does not apply route daily. Whatever brand insurance will pay for 100 Device 1 Cholecalciferol (VITAMIN D) 2000 units CapIndications:Nutr itional Support Take 2,000 Units by mouth daily. Indications: Nutritional Support 8 donepezil 10 MG Tab Take two tabs PO QAM 0 LEVOTHYROXINE 50 MCG tabletIndications:H ypothyroidism, unspecified type TAKE 1 TABLET(50 MCG) BY MOUTH EVERY MORNING 90 tablet 1 memantine ER 28 MG 24 hr capsule Take 28 mg by mouth daily. methenamine 1 g tabletIndications:R ecurrent UTI TAKE 1 TABLET(1 GRAM) BY MOUTH TWICE DAILY WITH MEALS 60 tablet 3 1 Misc. Devices MiscIndications:Typ e 2 diabetes mellitus with stage 3 chronic kidney disease, without long-term current use of insulin, unspecified whether stage 3a or 3b CKD ([facility] HHS/HCC) 1 strip by Does not apply route daily. Whatever brand insurance will pay for 100 strip 1 OMEPRAZOLE 20 MG capsuleIndications: Gastroesophageal reflux disease with esophagitis, unspecified whether hemorrhage TAKE 1 CAPSULE(20 MG) BY MOUTH DAILY 90 capsule 1 1 ONETOUCH DELICA PLUS [id number] MiscIndications:Typ e 2 diabetes mellitus with stage 3 chronic kidney disease, without long-term current use of insulin, unspecified whether stage 3a or 3b CKD ([facility]) USE ONCE A DAY 100 each 1 ONETOUCH VERIO test stripIndications:Di abetes mellitus ([facility]) USE TO TEST EVERY DAY 100 strip 1 PRAVASTATIN 40 MG tabletIndications:H yperlipidemia, unspecified hyperlipidemia type TAKE 1 TABLET(40 MG) BY MOUTH EVERY NIGHT AT BEDTIME 90 tablet 1 propranolol 10 MG tablet TAKE 1 TABLET BY MOUTH EVERY MORNING AND EVERY NIGHT AT BEDTIME 1 risperiDONE 0.5 MG tablet Take 1.5 mg by mouth nightly at bedtime. 1 rOPINIRole 2 MG tablet Take 2 mg by mouth nightly at bedtime. sertraline 100 MG tabletIndications:D epression Take 100 mg by mouth every morning. Indications: Depression 0 vitamin C 250 MG tablet Take 250 mg by mouth daily. documented as of this encounter Progress Notes * SCARLETT Keating - 05/14/2021 12:22 PM CST 05/14/21 1111 Therapy Visit OT Received On 05/14/21 Reason for admission NSTEMI Verified Two Patient Identifiers Yes Patient consents to therapy Yes Acute Inpatient OT Time Calculation OT Start Time 1111 OT Stop Time 1152 OT Time Calculation (min) 41 min Subjective Subjective Pt sitting in recliner agreeable to participate in skilled OT. Pain Pain Patient does not offer or c/o pain Activity Tolerance Endurance Tolerates 30 min activity with rests Endurance Quality Fair Limiting Factors to Endurance Weakness;Acute deconditioning Cognition Overall Cognitive Status WFL ADL Grooming Assistance CGA Grooming Deficit Supervision/safety Grooming Comment Pt instructed in washing face while standing at sink utilizing w/w for UE support with CGA provided. UE Dressing Assistance Moderate;Sitting in chair UE Dressing Deficit Thread RUE;Thread LUE;cushion cover inspector head UE Dressing Comment Pt doffed hospital gown requiring mod assist and donned overhead shirt requiring mod assist. LE Dressing Assistance Maximal LE Dressing Deficit Don/doff R sock;Don/doff L sock;Don/doff R shoe;Don/doff L shoe LE Dressing Comment Pt instructed in LB dressing to thread pants over feet while seated without useof AE requiring SBA. Pt pulled pants up over hips while standing requiring min assist in back. Pt required max assist to don socks and shoes without use of AE. Toileting Assistance Minimal Toileting Deficit Clothing management up Toileting Comment Pt instructed in toileting task requiring CGA to pull brief down, verbal instruction to retrieve toilet paper to complete emerson hygiene with SBA and required min assist to pull briefup in back. Functional Transfers Sit to Stand Contact guard assist Toilet Transfers CGA Functional Mobility CGA Balance Sitting - Static Independent Sitting - Dynamic Independent Standing - Static CGA;Support of one upper extremity Standing - Dynamic CGA;Support of both upper extremities OT Assessment OT Assessment Pt being DCd to detention this date. Pt demonsrates improved activity tolerance with ADLs. Plan OT Treatment/Intervention Self-care training;Functional activity Progress Progressing toward goals If this is the last treatment note, it will serve as the discharge summary Yes End of Session End of Session Safety Chair alarm set/activated;Call light within reach;Family/friend present with patient End of Session Comment Pt sitting in recliner with daughter present waiting to DC to detention. ING FOREMAN * Melissa Suero RN - 05/14/2021 11:20 AM CST Problem: Reduced risk for falls/injury Goal: Reduced Risk for Falls/Injury Outcome: Progressing Goal: Reduced Risk of Confusion (Acute vs Chronic) Outcome: Progressing Goal: Reduced Risk of Altered Elimination Outcome: Progressing Problem: Mobility Goal: STG - Pt will ambulate Description: 90' with WW with CGA/supervision Outcome: Progressing Goal: STG - Pt will ascend/descend stairs Description: 2 steps with CGA Outcome: Progressing Problem: Transfers Goal: STG - Pt will perform bed mobility Description: Independently/SBA Outcome: Progressing Goal: STG - Pt will perform sit to stand Description: SBA Outcome: Progressing Problem: Bathing Goal: STG - Pt will bathe body by alternating sit/stand with Description: Supervision and use of DME prn Outcome: Progressing Problem: Dressing: Lower Extremities Goal: STG - Pt will complete lower body dressing with Description: Supervision and use of DME prn Outcome: Progressing Problem: Venous Thromboembolism - Risk of Goal: Absence of venous thromboembolism Outcome: Progressing ING FOREMAN * AMANDA Blum - 05/14/2021 10:52 AM CST 05/14/21 1052 Discharge Planning Living Arrangements Children Support Systems Children;Family Members Type of Residence Private residence Assistance/Services Needed Yes Type of Assistance Needed Other(Comment) (intermediate placement) IV Infusion at discharge No Patient expects to be discharged to: [facility] DME Needed at Discharge No Patient to discharge to [facility] today. [facility] wheelchair van will steel pickler between [phone]. ING FOREMAN * AMANDA Blum - 05/14/2021 10:49 AM CST Patient accepted at [facility] and they will be using the Medicare Waiver for skilled services upon admission. [facility] van can transport patient between [phone]. contacted patients daughter Krystina and updated her on the above. Reviewed Important Message from Medicare with patients daughter. The form was signed by the patients daughter as having been received and understood. A copy of the form was left with patients daughter and a copy of the form was placed in the patient's skinny file for scanning. ING FOREMAN ING FOREMAN * Suni Oliveira RN - 05/13/2021 9:05 PM CST Problem: Reduced risk for falls/injury Goal: Reduced Risk for Falls/Injury Outcome: Progressing Goal: Reduced Risk of Confusion (Acute vs Chronic) Outcome: Progressing Goal: Reduced Risk of Symptomatic Depression Outcome: Completed Goal: Reduced Risk of Altered Elimination Outcome: Progressing Goal: Reduced Risk of Dizziness/Vertigo/Balance Outcome: Completed Goal: Reduced Risk of Polypharmacy Outcome: Completed Problem: Venous Thromboembolism - Risk of Goal: Absence of venous thromboembolism Outcome: Progressing ING FOREMAN * Marisa Wheatley PTA - 05/13/2021 4:23 PM CST Problem: Mobility Goal: STG - Pt will ambulate Description: 90' with WW with CGA/supervision Outcome: Met This Shift Problem: Transfers Goal: STG - Pt will perform bed mobility Description: Independently/SBA Outcome: Progressing Goal: STG - Pt will perform sit to stand Description: SBA Outcome: Progressing ING FOREMAN * Marisa Wheatley PTA - 05/13/2021 4:21 PM CST 05/13/21 1455 Therapy Visit Subjective Pt in bed upon arrival and is agreeable to PT. Reason for admission NSTEMI Relevant Comorbidities/ Personal Factors to PT GERD, HTN, hyperlipidemia, hypothyroidism, insomnia,sepsis, DM, SSS, bladder infections, breast CA with reduction, nu, RTC repair, pacemaker Verified Two Patient Identifiers Yes Patient consents to therapy Yes Acute Inpatient PT Time Calculation PT Start Time 1455 PT Stop Time 1537 PT Time Calculation (min) 42 min PT Therapy Interruption (min) 37 actual PT mins as pt used the commode during session. Precautions General Precautions Chair Alarm;Bed Alarm;Fall Risk;Hard of Hearing (Telemetry) PPE Used Face mask;Gloves Instructed on Precautions Yes;Needs reinforcement and education Other white board for communication Pain Pain Patient does not offer or c/o pain Activity Tolerance Endurance Quality Fair Limiting Factors to Endurance Weakness;Acute deconditioning Cognition Overall Cognitive Status WFL Bed Mobility Supine to Sit SBA/supervision TRANSFERS Sit to Stand SBA/supervision;Contact guard assist Other (Comment) Stand to sit with suprv, physical cues for hand placement due to pt being hearing impaired. Gait Gait Assistance SBA/supervision;Contact guard assist Assistive Device 2 Wheeled walker Distance Ambulated (ft) 150 ft Pattern Shuffle steps Weight Bearing Status Total Balance Sitting - Static Independent Sitting - Dynamic Independent Standing - Static CGA;Support of one upper extremity Standing - Dynamic SBA;CGA;Support of both upper extremities Exercises Ankle Pumps x 10 Quad Sets x 10 Short Arc Quad x 10 Heelslides x10 Hip Abduction x 10 Supine LE Exercise Isometric hip add with pillow x 10 Sitting LE Exercise LAQ, hip flex, hip abd, ankle DF/PF x 10 reps each Patient/Family Training Bed Mobility x Transfer Training x Gait Training x Precautions x Exercise Program x PT Assessment PT Assessment Pt performed well this session. Pt met her amb goal and nearly met her transfer and bed mobility goals. Pt is very pleasant and cooperative. Plan Progress Progressing toward goals If this is the last treatment note,it will serve as the discharge summary Yes End of Session End of Session Safety Chair alarm set/activated;Call light within reach;Nursing aware of session Interdisciplinary Collaboration Nursing notified that pt used the commode. End of Session Comment Pt reclined in gerichair at end of session. ING FOREMAN * AMANDA Bulm - 05/13/2021 2:40 PM CST 05/13/21 1440 Interdisciplinary Group Conference Team Members Present Physician;Case/Care management;Nursing;PT/OT;Pharmacy;Dietary;Pastoral Care;Senior Insight Manager [employer] Barriers to Discharge Barriers Waiting on Destination approval Destination approval follow up referral pending at [facility] ING FOREMAN * Melissa Suero RN - 05/13/2021 2:09 PM CST Problem: Reduced risk for falls/injury Goal: Reduced Risk for Falls/Injury Outcome: Progressing Goal: Reduced Risk of Confusion (Acute vs Chronic) Outcome: Progressing Goal: Reduced Risk of Symptomatic Depression Outcome: Progressing Goal: Reduced Risk of Altered Elimination Outcome: Progressing Goal: Reduced Risk of Dizziness/Vertigo/Balance Outcome: Progressing Goal: Reduced Risk of Polypharmacy Outcome: Progressing ING FOREMAN * Mary Dickey OT - 05/13/2021 12:49 PM CST Progressing towards all goals. CGA w/ functional mobility in room using ww. CGA w/ bathing and dressing. ING FOREMAN * Mary Dickey, OT - 05/13/2021 12:44 PM CST 05/13/21 0700 Therapy Visit Reason for admission NSTEMI Verified Two Patient Identifiers Yes Patient consents to therapy Yes Acute Inpatient OT Time Calculation OT Start Time 0750 OT Stop Time 0806 OT Time Calculation (min) 16 min OT Therapy Interruption (min) Left room at 0806 due to breakfast tray; completed remainder of session [id number]; 38 min total Precautions General Precautions Chair Alarm;Bed Alarm;Fall Risk;Hard of Hearing (Telemetry) PPE Used Face mask;Gloves Instructed on Precautions Yes;Needs reinforcement and education Other white board for communication Subjective Subjective Patient pleasant and cooperative. More talkative during session today. Pain Pain Patient does not offer or c/o pain Activity Tolerance Endurance Quality Fair Limiting Factors to Endurance Weakness;Acute deconditioning Cognition Overall Cognitive Status WFL ADL Eating/Feeding Assistance Independent Eating/Feeding Deficit Setup Grooming Assistance Stand by;Sitting in chair Grooming Deficit Setup Grooming Comment Combing hair, washing face Bathing Assistance CGA;Sitting in chair;Alternating sit/stand Bathing Deficit Setup;Steadying;Increased time to complete Bathing Comment Sponge bath from bedside chair UE Dressing Assistance Sitting in chair;Minimal UE Dressing Deficit Setup;Pull around back UE Dressing Comment Personal sweater LE Dressing Assistance CGA;In bed;Alternating sit/stand LE Dressing Deficit Setup;Requires assistive device for steadying;Increased time to complete LE Dressing Comment Able to change socks and manage clothing up/down over hips. CGA needed for balance Bed Mobility Supine to Sit SBA/supervision Functional Transfers Sit to Stand SBA/supervision;Contact guard assist Functional Mobility Completes mob w/ ww w/ CGA around foot of bed Other (Comment) SBA to stand from EOB, CGA from chair Balance Sitting - Static Independent Sitting - Dynamic Independent Standing - Static CGA;Support of one upper extremity Patient/Family Training Self Cares Promoting indep w/ ADL's Transfer Training Hand placement to promote indep OT Assessment OT Assessment Aviva is showing progress w/ overall endurance and ADL performance. Continues to benefit from OT to maximize safety and indep w/ ADL performance. Recommendation OT Recommendation OT at intermediate facility Plan Progress Progressing toward goals If this is the last treatment note, it will serve as the discharge summary Yes End of Session End of Session Safety Chair alarm set/activated;Call light within reach ING FOREMAN * Ludy Coon NP - 05/13/2021 11:31 AM CST Hospitalist Progress Note Subjective Ms. Ch is resting comfortably in chair when evaluated. Communicated with patient via white board. Tells me she feels okay. No chest pain, or shortness of breath. Daughter concerned about functional status with daughter yesteday, plans for placement. SW working on this. Objective Blood pressure 132/60, pulse 62, temperature 97.6 ??F (36.4 ??C), temperature source Temporal, resp. rate 16, height 5' 4 (1.626 m), weight 48.5 kg (106 lb 14.8 oz), SpO2 93 %. Intake/Output last 3 shifts: I/O last 3 completed shifts: In: 870 [P.O.:870] Out: 1900 [Urine:1900] ROS negative except that noted in subjective. GENERAL: no acute distress, well nourished, well developed HEENT: mucous membranes moist , deaf RESPIRATORY: respirations even and unlabored, clear breath sounds, no wheezes, or crackles noted CARDIAC: regular rate and rhythm, no murmur or JVD, no peripheral edema GI: nontender, nondistended, bowel sounds present, no obvious masses MUSC: ROM grossly intact NEURO: . Alert, no gross deficit SKIN: No rashes , skin is warm and dry LYMPH: No obvious lymphadenopathy PSYCH: Alert, appropriate Diagnostic Data CT head 1. No acute intracranial process. 2. Volume loss and small vessel disease. 3. Cerebrovascular atherosclerosis. XR T spine No fracture or subluxation. CXR Chronic interstitial infiltrates in the upper lobes. XR pelvis No fracture or dislocation. Results for orders placed or performed during the hospital encounter of 05/10/21 ECG 12 lead Narrative [facility] Test Date: 2021-05-10 Pat Name: AVIVA CH Department: Room: 122 Gender: Female Certified Court Interpreter: : 1935 Requested By: NUBIA ALLEN Order Number: [id number] Reading MD: Michael Jade Measurements Intervals [place] Rate: 66 P: 78 FL: 252 QRS: 9 QRSD: 139 T: 41 QT: 448 QTc: 469 Interpretive Statements ELECTRONIC ATRIAL PACEMAKER INDETERMINATE AXIS RIGHT BUNDLE BRANCH BLOCK Compared to ECG 02/15/2020 14:41:45 Indeterminate axis now present ING FOREMAN ECG [address] [facility] Test Date: 2021-05-10 Pat Name: AVIVA CH Department: Room: 122 Gender: Female Certified Court Interpreter: : 1935 Requested By: JEFFERY ZHONG Order Number: [id number] Reading MD: Michael Jade Measurements Intervals [place] Rate: 62 P: 95 FL: 282 QRS: 1 QRSD: 138 T: -2 QT: 474 QTc: 482 Interpretive Statements ELECTRONIC ATRIAL PACEMAKER INDETERMINATE AXIS INTRAVENTRICULAR CONDUCTION DELAY INFERIOR MYOCARDIAL INFARCTION , PROBABLY OLD Compared to ECG 05/10/2021 15:25:31 Intraventricular conduction delay now present Myocardial infarct finding now present Right bundle-branch block no longer present ING FOREMAN Recent Labs Lab 05/11/21 0558 05/12/21 0557 05/13/21 0539 NA 146* 144 143 K 3.1* 4.2 4.1 CL 108 105 105 CO2 26.6 30.1 30.6 AGAP 11.4 8.9 7.4 BUN 20* 18 22* CR 0.64 0.81 0.74 BUNCREATININ 31.2* 22.2 29.7* GFRNON 81* 66* 74* GFR >90 77* 86* GLU 88 181* 109* CA 8.8 9.4 9.1 Recent Labs Lab 05/11/21 0558 05/12/21 0557 05/13/21 0539 WBC 5.3 5.9 5.9 RBC 4.23* 4.63 4.28* HGB 12.2* 13.4 12.4 HCT 38.1 42.2 38.6 MCV 90.1 91.1 90.2 MCH 28.8 28.9 29.0 MCHC 32.0 31.8 32.1 PLT 175 196 201 RDW 13.8 14.0 14.0 MPV 9.7 9.6 9.9 PERNEU 77.1* 83.1* 74.5* PERLYM 12.6* 9.7* 16.2 PERMON 7.4 4.9* 6.4 NEUC 4.09 4.90 4.43 LYMC 0.67* 0.57* 0.96 Medication: amLODIPine 5 mg Oral Daily aspirin EC 81 mg Oral Daily aspirin 325 mg Oral Once atorvastatin 5 mg Oral Once docusate sodium 100 mg Oral BID donepezil 10 mg Oral Daily heparin (porcine) 5,000 Units Subcutaneous 2 times per day insulin lispro 0-14 Units Subcutaneous TID AC And insulin lispro 0-7 Units Subcutaneous Nightly at bedtime levothyroxine 50 mcg Oral Daily lisinopril 20 mg Oral Daily memantine 10 mg Oral BID methenamine 1 g Oral BID pantoprazole EC 20 mg Oral Daily propranolol 10 mg Oral BID risperiDONE 1.5 mg Oral Nightly at bedtime rOPINIRole 2 mg Oral Nightly at bedtime sertraline 100 mg Oral Daily vitamin C 250 mg Oral Daily vitamin D3 (cholecalciferol) 2,000 Units Oral Daily acetaminophen, albuterol sulfate HFA, morphine, naLOXone, ondansetron, polyethylene glycol, traMADol Assessment and Plan: NSTEMI Presented with fall Noted elevated troponin, trending down Continue aspirin, statin Family declines heparin or cardiac cath Cardiology consulted, appreciate recommendation Prelim echo shows normal EF, no clear wall motion abnormalities Follow up with Dr. Mckeon in 4-6 weeks Hypertension Continue home medications with norvasc, benazepril Monitor and adjust as needed DM2 Accu-Cheks with SSI A1c HLD Statin Dementia Lives with family, will need PT and OT to evaluate, daughter states that they're unable to manage her if she can't walk at home Cont home meds Hypothyroidism: Continue home regimen GERD: PPI SSS: S/p pacer Underweight: BMI 18.3 Encourage PO intake VTE prophylaxis w subQ heparin Code status: DNR Cosigned by Jennifer Grady MD at 05/13/2021 2:33 PM RIGGING FOREMAN ING FOREMAN ING FOREMAN ING FOREMAN * Michell Mota PTA - 05/13/2021 10:57 AM CST 05/13/21 0900 Therapy Visit Subjective Patient sitting in chair upon arrival. Agrees to participate in PT this a.m. Reason for admission NSTEMI Verified Two Patient Identifiers Yes Patient consents to therapy Yes Acute Inpatient PT Time Calculation PT Start Time 1028 PT Stop Time 1049 PT Time Calculation (min) 21 min Precautions General Precautions Chair Alarm;Bed Alarm;Fall Risk;Hard of Hearing (Telemetry) PPE Used Face mask;Gloves Instructed on Precautions Yes;Needs reinforcement and education Other white board for communication Pain Pain Patient does not offer or c/o pain Cognition Overall Cognitive Status WFL TRANSFERS Sit to Stand Contact guard assist Other (Comment) STS with supervision; good use of UE support Gait Gait Assistance SBA/supervision;Contact guard assist Assistive Device 2 Wheeled walker Distance Ambulated (ft) 130 ft Pattern Shuffle steps Weight Bearing Status Total Balance Sitting - Static Independent Sitting - Dynamic Independent Exercises Sitting LE Exercise Seated/reclined: AP, LAQ, marching, hip abd, quad sets, heel slides x10-15 each Patient/Family Training Bed Mobility x Transfer Training x Gait Training x Precautions x Exercise Program x PT Assessment PT Assessment Aviva was very pleasant and cooperative during session. Assist with ww maneuveringrequired at times around enviormental hazards. Plan Progress Progressing toward goals If this is the last treatment note,it will serve as the discharge summary Yes End of Session End of Session Safety Chair alarm set/activated;Call light within reach End of Session Comment Patient reclined in chair at end of session. ING FOREMAN * AMANDA Blum - 05/13/2021 9:26 AM CST Spoke to patients daughter Krystina to inform her of denials from [place] [facility]. Krystina requested referral be sent to [facility]. faxed referral as requested. ING FOREMAN * Noemi Palacios RN - 05/12/2021 9:46 PM CST Problem: Reduced risk for falls/injury Goal: Reduced Risk of Symptomatic Depression Outcome: Progressing Goal: Reduced Risk of Altered Elimination Outcome: Progressing ING FOREMAN * Marisa Wheatley PTA - 05/12/2021 4:42 PM CST Pt is progressing well towards her PT goals. Stairs was not attempted this date. Problem: Mobility Goal: STG - Pt will ambulate Description: 90' with WW with CGA/supervision Outcome: Met This Shift Problem: Transfers Goal: STG - Pt will perform bed mobility Description: Independently/SBA Outcome: Progressing Goal: STG - Pt will perform sit to stand Description: SBA Outcome: Progressing ING FOREMAN * Marisa Wheatley PTA - 05/12/2021 4:40 PM CST 05/12/21 1458 Therapy Visit Subjective Pt in chair upon arrival. Pt agrees to PT. Pt's dtr and son-in-law present. Reason for admission NSTEMI Relevant Comorbidities/ Personal Factors to PT GERD, HTN, hyperlipidemia, hypothyroidism, insomnia,sepsis, DM, SSS, bladder infections, breast CA with reduction, nu, RTC repair, pacemaker Verified Two Patient Identifiers Yes Patient consents to therapy Yes Acute Inpatient PT Time Calculation PT Start Time 1458 PT Stop Time 1522 PT Time Calculation (min) 24 min Precautions General Precautions Chair Alarm;Bed Alarm;Fall Risk;Hard of Hearing (Telemetry) PPE Used Face mask Instructed on Precautions Yes;Needs reinforcement and education Other white board for communication Pain Pain No Activity Tolerance Endurance Quality Fair Limiting Factors to Endurance Weakness;Acute deconditioning Cognition Overall Cognitive Status WFL Bed Mobility Sit to Supine SBA/supervision TRANSFERS Stand Pivot Transfers Contact guard assist;SBA/supervision (with WW) Sit to Stand Contact guard assist;SBA/supervision Other (Comment) Stand to sit with CGA/suprv and cues for hand placement. Pt requires physical cues due to pt's impaired hearing. Gait Gait Assistance Contact guard assist;SBA/supervision Assistive Device 2 Wheeled walker Distance Ambulated (ft) 100 ft Pattern Shuffle steps Weight Bearing Status Total Balance Sitting - Static Independent Sitting - Dynamic Independent Standing - Static CGA;SBA;Support of one upper extremity Standing - Dynamic CGA;SBA;Support of both upper extremities Exercises Ankle Pumps x 10 Quad Sets x 10 Short Arc Quad x 10 Heelslides x10 Hip Abduction x 10 Supine LE Exercise Isometric hip add with pillow x 10 Sitting LE Exercise LAQ, hip flex, hip abd x 10 reps each Other (Comment) Pt requires demo to perform ex as she is very [place]. Patient/Family Training Bed Mobility x Transfer Training x Gait Training x Precautions x Exercise Program x PT Assessment PT Assessment Pt was able to increase her amb distance this session beyond her goal distance and while she needed less assistance, she did not meet her amb goal yet. Plan Progress Progressing toward goals If this is the last treatment note,it will serve as the discharge summary Yes End of Session End of Session Safety Bed alarm set/activated;Call light within reach;Family/friend present with patient End of Session Comment Pt in bed at end of session. Correction to assessment section. Pt did meet her amb goal this session. ING FOREMAN ING FOREMAN * Ludy Coon, VOLUNTEER FIREFIGHTER - 05/12/2021 1:11 PM CST Hospitalist Progress Note Subjective Ms. Ch is resting comfortably in bed when evaluated. Family at bedside. Communicated with patient via white board. Tells me she feels okay. No chest pain, or shortness of breath. Discussed cardiology consult. Daughter concerned about functional status, would like more information regarding placement. Objective Blood pressure 129/67, pulse 64, temperature 97.9 ??F (36.6 ??C), temperature source Tympanic, resp. rate 16, height 5' 4 (1.626 m), weight 48.3 kg (106 lb 7.7 oz), SpO2 95 %. Intake/Output last 3 shifts: I/O last 3 completed shifts: In: 1140 [P.O.:1140] Out: 1000 [Urine:1000] ROS negative except that noted in subjective. GENERAL: no acute distress, well nourished, well developed HEENT: mucous membranes moist , deaf RESPIRATORY: respirations even and unlabored, clear breath sounds, no wheezes, or crackles noted CARDIAC: regular rate and rhythm, no murmur or JVD, no peripheral edema GI: nontender, nondistended, bowel sounds present, no obvious masses MUSC: ROM grossly intact NEURO: . Alert, no gross deficit SKIN: No rashes , skin is warm and dry LYMPH: No obvious lymphadenopathy PSYCH: Alert, appropriate Diagnostic Data CT head 1. No acute intracranial process. ?? 2. Volume loss and small vessel disease. ?? 3. Cerebrovascular atherosclerosis. ? XR T spine No fracture or subluxation. ?? CXR Chronic interstitial infiltrates in the upper lobes. ?? XR pelvis No fracture or dislocation. ?? Results for orders placed or performed during the hospital encounter of 05/10/21 ECG 12 lead ?? Narrative ?? [facility] Test Date: 2021-05-10 Pat Name: AVIVA CH Department: Room: 122 Gender: Female Certified Court Interpreter: : 1935 Requested By: NUBIA ALLEN Order Number: [id number] Reading MD: Michael Jade Measurements Intervals [place] Rate: 66 P: 78 FL: 252 QRS: 9 QRSD: 139 T: 41 QT: 448 QTc: 469 Interpretive Statements ELECTRONIC ATRIAL PACEMAKER INDETERMINATE AXIS RIGHT BUNDLE BRANCH BLOCK Compared to ECG 02/15/2020 14:41:45 Indeterminate axis now present ING FOREMAN ECG 12 lead ?? Narrative ?? [facility] Test Date: 2021-05-10 Pat Name: AVIVA CH Department: Room: 122 Gender: Female Certified Court Interpreter: : 1935 Requested By: JEFFERY ZHONG Order Number: [id number] Reading MD: Michael Jade Measurements Intervals [place] Rate: 62 P: 95 FL: 282 QRS: 1 QRSD: 138 T: -2 QT: 474 QTc: 482 Interpretive Statements ELECTRONIC ATRIAL PACEMAKER INDETERMINATE AXIS INTRAVENTRICULAR CONDUCTION DELAY INFERIOR MYOCARDIAL INFARCTION , PROBABLY OLD Compared to ECG 05/10/2021 15:25:31 Intraventricular conduction delay now present Myocardial infarct finding now present Right bundle-branch block no longer present ING FOREMAN Recent Labs Lab 05/10/21 1800 05/11/21 0558 05/12/21 0557 NA 144 146* 144 K 3.4* 3.1* 4.2 CL 107 108 105 CO2 29.2 26.6 30.1 AGAP 7.8 11.4 8.9 BUN 29* 20* 18 CR 0.68 0.64 0.81 BUNCREATININ 42.6* 31.2* 22.2 GFRNON 80* 81* 66* GFR >90 >90 77* GLU 107* 88 181* CA 9.1 8.8 9.4 Recent Labs Lab 05/10/21 1800 05/11/21 0558 05/12/21 0557 WBC 6.1 5.3 5.9 RBC 4.12* 4.23* 4.63 HGB 11.9* 12.2* 13.4 HCT 37.0 38.1 42.2 MCV 89.8 90.1 91.1 MCH 28.9 28.8 28.9 MCHC 32.2 32.0 31.8 PLT 185 175 196 RDW 13.6 13.8 14.0 MPV 9.9 9.7 9.6 PERNEU 76.1* 77.1* 83.1* PERLYM 13.8* 12.6* 9.7* PERMON 7.9 7.4 4.9* NEUC 4.64 4.09 4.90 LYMC 0.84 0.67* 0.57* Medication: ??? amLODIPine 5 mg Oral Daily ??? aspirin EC 81 mg Oral Daily ??? aspirin 325 mg Oral Once ??? atorvastatin 5 mg Oral Once ??? docusate sodium 100 mg Oral BID ??? donepezil 10 mg Oral Daily ??? heparin (porcine) 5,000 Units Subcutaneous 2 times per day ??? insulin lispro 0-14 Units Subcutaneous TID AC And ??? insulin lispro 0-7 Units Subcutaneous Nightly at bedtime ??? levothyroxine 50 mcg Oral Daily ??? lisinopril 20 mg Oral Daily ??? memantine 10 mg Oral BID ??? methenamine 1 g Oral BID ??? pantoprazole EC 20 mg Oral Daily ??? propranolol 10 mg Oral BID ??? risperiDONE 1.5 mg Oral Nightly at bedtime ??? rOPINIRole 2 mg Oral Nightly at bedtime ??? sertraline 100 mg Oral Daily ??? vitamin C 250 mg Oral Daily ??? vitamin D3 (cholecalciferol) 2,000 Units Oral Daily acetaminophen, albuterol sulfate HFA, morphine, naLOXone, ondansetron, polyethylene glycol, traMADol Assessment and Plan: NSTEMI Presented with fall Noted elevated troponin, trending down Continue aspirin, statin Family declines heparin or cardiac cath Cardiology consulted, appreciate recommendation ?? Hypertension Continue home medications with norvasc, benazepril Monitor and adjust as needed ?? DM2 Accu-Cheks with SSI A1c ?? HLD Statin ?? Dementia Lives with family, will need PT and OT to evaluate, daughter states that they're unable to manage her if she can't walk at home Cont home meds Hypothyroidism: Continue home regimen ?? GERD: PPI VTE prophylaxis w subQ heparin ??Code status: DNR Cosigned by Jennifer Grady MD at 05/12/2021 3:46 PM RIGGING FOREMAN ING FOREMAN ING FOREMAN * Laura Cheatham RN - 05/12/2021 12:34 PM CST 05/12/21 1207 Referral Data Referral Reason Discharge Planning Source of Information Patient;Family/Significant Other Patient Information OB Patient < 19 yrs old No Primary Caregiver Family Support System Immediate family Baseline ADL's Functional Status Minimum assistance Living Arrangements Children Type of Residence Private residence Ambulation Assistance No Bathing/Grooming Assistance No Dressing Assistance No Behavior Oriented;Cooperative;Forgetful Communication Talks;Understands speaking;Understands [place];Hard of hearing Socioeconomic Needs Caregiver Needed No At Risk of Abuse or Neglect No Adequate Resources Yes Psychological Needs: Mental health concerns No Suspected Drug or Alcohol Abuse No Inappropriate Patient/Family Behaviors No Difficult Adjustment to Diagnosis No Recent Hospitalization Recent Hospitalization within 30 days No Anticipated Discharge Needs Change in Living Arrangements No In-Home Care or Equipment No Vocational and/or Role Loss No Inability to Complete ADL's No Anticipated DC Plan Living Arrangements Other (Comment) (detention placement) Type of Residence [facility] (referral sent) Assistance Needed No Patient expects to be discharged to: [facility] Psychosocial Needs With Indication for Social Work Consult Diagnosis/prognosis resulting in poor adjustment or coping with illness No Diagnosis/prognosis with anticipated outcome of major lifestyle changes, 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 Patient very [place]. Lives with her daughter. Was independent up to 1 week ago. Walked with a cane. Daughter feels she will need detention placement. Request referral be sent to [facility] and [facility]. Referrals sent. ING FOREMAN * Marisa Wheatley, DIRECTOR OF MEDICAL STAFF SERVICES - 05/12/2021 12:10 PM CST 05/12/21 0948 Therapy Visit Subjective Pt reclined in chair upon arrival. Pt's dtr and son-in-law present. Family states that pt's hearing is worse than when she was here previously and her hearing aids no longer work. Pt communicates using a dry [employer] board. Reason for admission NSTEMI Relevant Comorbidities/ Personal Factors to PT GERD, HTN, hyperlipidemia, hypothyroidism, insomnia,sepsis, DM, SSS, bladder infections, breast CA with reduction, nu, RTC repair, pacemaker Verified Two Patient Identifiers Yes Patient consents to therapy Yes Acute Inpatient PT Time Calculation PT Start Time 0948 PT Stop Time 1013 PT Time Calculation (min) 25 min Precautions General Precautions Chair Alarm;Bed Alarm;Fall Risk;Hard of Hearing (Telemetry) PPE Used Face mask Instructed on Precautions Yes;Needs reinforcement and education Other white board for communication Pain Pain No Activity Tolerance Endurance Quality Fair Limiting Factors to Endurance Weakness;Acute deconditioning Cognition Overall Cognitive Status WFL Bed Mobility Sit to Supine Contact guard assist;SBA/supervision TRANSFERS Stand Pivot Transfers Contact guard assist;SBA/supervision (with WW) Sit to Stand Contact guard assist Squat Pivot Transfers (Cues for hand placement) Other (Comment) Stand to sit with CGA and cues for hand placement. Pt requires physical cues due makeda's impaired hearing. Gait Gait Assistance Contact guard assist Assistive Device 2 Wheeled walker Distance Ambulated (ft) 60 ft Pattern Shuffle steps Weight Bearing Status Total Balance Sitting - Static Independent Sitting - Dynamic Independent Standing - Static CGA;Support of one upper extremity Standing - Dynamic CGA;Support of both upper extremities Exercises Ankle Pumps x 10 Quad Sets x 10 Short Arc Quad x 10 Hip Abduction x 10 Supine LE Exercise Isometric hip add with pillow x 10 Sitting LE Exercise LAQ, hip flex, hip abd x 10 reps each Other (Comment) Pt requires demo to perform ex as she is very [place]. Patient/Family Training Bed Mobility x Transfer Training x Gait Training x Precautions x Exercise Program x Other (Comment) PT POC/goals reviewed with pt and family PT Assessment PT Assessment Pt performed well this session and is progressing towards her PT goals. Recommendation PT Recommendation PT during hospitalization;PT at intermediate Facility Plan Progress Progressing toward goals If this is the last treatment note,it will serve as the discharge summary Yes End of Session End of Session Safety Bed alarm set/activated;Call light within reach;Family/friend present with patient End of Session Comment Pt in bed at end of session as radiology was present to perform a cardiac ultrasound on pt. ING FOREMAN * Mary Dickey, OT - 05/12/2021 10:13 AM CST 05/12/21 0900 Therapy Visit/Acute care evaluation Reason for admission NSTEMI; Admit through ED 05/10/21 Comorbidities Relevant to OT Past Medical History: Diagnosis Date ??? Bladder [...] Jose ??? PACEMAKER ??? REPAIR ROTATOR CUFF,ACUTE No current outpatient medications on file. Previous Occupational Therapy Inpatient Therapy;Home care Ordering Provider Leia Gomez MD Verified Two Patient Identifiers Yes Patient consents to therapy Yes Acute Inpatient OT Time Calculation OT Start Time 906 OT Stop Time 944 OT Time Calculation (min) 38 min OT Therapy Interruption (min) Total eval time 45 including documentation and chart review; billable time 23 Precautions General Precautions Chair Alarm;Bed Alarm;Fall Risk;Hard of Hearing (Telemetry) PPE Used Face mask Instructed on Precautions Yes;Needs reinforcement and education Other white board for communication Subjective Subjective Daughter present at end of session. Reports that patient has fallen a few times at home and it is harder to manage her care at home. Wants to discuss SNF for patient w/ assistant case manager. Home Living Type of Home House Home Layout Performs ADL's on one level Home Equipment Straight cane Home Living Comments Needing assist w/ ADL's and transfers recently, difficulty w/ walking prior toadmit Prior Function Level of [place] Independent with functional transfers;Independent with ambulation;Needs assistance with ADLs;Needs assistance with homemaking Device used at baseline Straight cane Baseline Ambulation Distance/Assistance short household distances Fall History Yes Reason for fall unsure Most recent fall 05/10/21 Lives With Daughter Receives Help From Family Pain Pain No Activity Tolerance Endurance Quality Fair Limiting Factors to Endurance Weakness;Acute deconditioning Vision - Basic Assessment Current Vision Wears glasses Cognition Overall Cognitive Status WFL Arousal/Alertness Appropriate responses to stimuli Attention Span Appears intact Memory Appears intact Following Commands Follows one step commands consistently Safety Judgment Good awareness of safety precautions Other (Comment) Patient responds appropriately. Difficult to assess due to patient very [place] and uses white board to communicate Overall Extremity Assessment Upper Extremity B UE AROM/strength WFL Hand Function Hand Dominance Right Gross Grasp Functional ADL Eating/Feeding Assistance Independent Eating/Feeding Deficit Setup Grooming Assistance Stand by;Sitting in chair Grooming Deficit Setup Grooming Comment Combing hair, washing face Bathing Assistance Minimal;Sitting in chair;Alternating sit/stand Bathing Deficit Setup;Steadying;Increased time to complete;Buttocks;Perineal area Bathing Comment Sponge bath from chair w/ cues to initiate UE Dressing Assistance Stand by UE Dressing Deficit Setup LE Dressing Assistance Sitting in chair;Alternating sit/stand;Moderate LE Dressing Deficit Increased time to complete;Requires assistive device for steadying;Steadying;Pull up over hips;Don/doff R sock;Don/doff L sock LE Dressing Comment CGA for static balance w/ use of ww for support, fatigue, difficulty w/ distal reach Toileting Assistance Minimal Toileting Comment Based on simulation Functional Transfers Sit to Stand Contact guard assist Balance Sitting - Static Independent Sitting - Dynamic Independent Standing - Static CGA;Support of one upper extremity Standing - Dynamic CGA;Support of both upper extremities Assessment Occupational Profile and History Complexity Moderate (Expanded) Performance Skills Deficits Bathing/showering;Dressing;Functional mobility;Personal hygiene and grooming;Toileting Performance Deficit Level Moderate (3-5 deficits) Clinical Decision Making Moderate (min/mod modifications) Complexity Level of Evaluation Moderate Prognosis Good OT Assess/Eval Other (Comment) Aviva is an 85 y/o from home w/ daughter. She has had a decline in ability to perform ADL's independently recently and will benefit from skilled OT to promote increased indep w/ ADL's and mob in order to decrease caregiver burden and assist w/ dc planning. Patient/Family Training Other (Comment) OT POC/goals reviewed w/ patient and dtr Recommendation OT Recommendation OT at intermediate facility (Family looking into placement for patient) OT Equipment Recommended Currently has DME in Place Plan OT Treatment/Intervention Self-care training;Therapeutic exercises;Therapeutic activities;Patient/family training;Functional activity;Safety OT Frequency 4 times/week;5 times/week If this is the last treatment note, it will serve as the discharge summary Yes End of Session End of Session Safety Chair alarm set/activated;Call light within reach;Family/friend present with patient;Nursing aware of session ING FOREMAN * Sarah Yang RN - 05/12/2021 8:00 AM CST Problem: Reduced risk for falls/injury Goal: Reduced Risk for Falls/Injury Outcome: Progressing Goal: Reduced Risk of Confusion (Acute vs Chronic) Outcome: Progressing Goal: Reduced Risk of Symptomatic Depression Outcome: Progressing Goal: Reduced Risk of Altered Elimination Outcome: Progressing Goal: Reduced Risk of Dizziness/Vertigo/Balance Outcome: Progressing Goal: Reduced Risk of Polypharmacy Outcome: Progressing Problem: Mobility Goal: STG - Pt will ambulate Description: 90' with WW with CGA/supervision Outcome: Progressing Goal: STG - Pt will ascend/descend stairs Description: 2 steps with CGA Outcome: Progressing Problem: Transfers Goal: STG - Pt will perform bed mobility Description: Independently/SBA Outcome: Progressing Goal: STG - Pt will perform sit to stand Description: SBA Outcome: Progressing Problem: Bathing Goal: STG - Pt will bathe body by alternating sit/stand with Description: Supervision and use of DME prn Outcome: Progressing Problem: Dressing: Lower Extremities Goal: STG - Pt will complete lower body dressing with Description: Supervision and use of DME prn Outcome: Progressing Problem: Toileting Goal: STG - Pt will complete 3/3 toilet tasks (clothing up, clothing down, hygiene) with Description: Supervision and use of DME prn Outcome: Progressing Problem: Mobility Goal: STG - Pt will complete in-room functional mobility Description: With Supervision and use of ww Outcome: Progressing ING FOREMAN * Aliya Baca RN - 05/12/2021 4:08 AM CST Problem: Reduced risk for falls/injury Goal: Reduced Risk for Falls/Injury Outcome: Progressing Goal: Reduced Risk of Confusion (Acute vs Chronic) Outcome: Progressing Goal: Reduced Risk of Symptomatic Depression Outcome: Progressing Goal: Reduced Risk of Altered Elimination Outcome: Progressing Goal: Reduced Risk of Dizziness/Vertigo/Balance Outcome: Progressing Goal: Reduced Risk of Polypharmacy Outcome: Progressing ING FOREMAN * Sindy Escudero PT - 05/11/2021 12:08 PM CST 05/11/21 1000 Therapy Visit Ordering Provider Leia Gomez MD PT Evaluation Completed on 05/11/21 Subjective Patient's dtr present and provided PLOF information. Patient [place] and used white board tocommunicate. Patient agreeable to participate with PT. Dtr states they have been struggling with taking care of her mom and feels that it is time for some type of placement. Reason for admission NSTEMI Relevant Comorbidities/ Personal Factors to PT GERD, HTN, hyperlipidemia, hypothyroidism, insomnia,sepsis, DM, SSS, bladder infections, breast CA with reduction, nu, RTC repair, pacemaker Verified Two Patient Identifiers Yes Patient consents to therapy Yes Acute Inpatient PT Time Calculation PT Start Time 1029 PT Stop Time 1053 PT Time Calculation (min) 24 min PT Therapy Interruption (min) eval 45' including chart review and documentation, face to face time 24'. treatment time 5' Precautions General Precautions Chair Alarm;Bed Alarm;Fall Risk PPE Used Face mask Instructed on Precautions Yes;Needs reinforcement and education Other white board for communication Home Living Type of Home House Home Layout Performs ADL's on one level Home Accessibility (2 steps - only goes out with family assist) Home Equipment Straight cane Prior Function Level of [place] Independent with functional transfers;Independent with ambulation;Needs assistance with ADLs;Needs assistance with homemaking Device used at baseline Straight cane Baseline Ambulation Distance/Assistance short household distances Fall History Yes Reason for fall unsure Most recent fall 05/10/21 Lives With Daughter Receives Help From Family Pain Pain No Activity Tolerance Endurance Quality Fair Limiting Factors to Endurance Acute deconditioning;Weakness Pre-activity VS BP 156/65, HR 69 bpm Cognition Arousal/Alertness Appropriate responses to stimuli Attention Span Appears intact Following Commands Follows one step commands consistently Other (Comment) difficulty to fully assess cognition as needed to use white board for communicationand patient responded appropriately. Overall Extremity Assessment Lower Extremity B LE ROM WFL, strength 4-/5 Bed Mobility Supine to Sit Contact guard assist TRANSFERS Sit to Stand Contact guard assist Other (Comment) stand to sit with CGA Gait Gait Assistance Contact guard assist Assistive Device 2 Wheeled walker Distance Ambulated (ft) 6 ft Pattern Shuffle steps Balance Sitting - Static Independent Sitting - Dynamic Independent Standing - Static CGA Standing - Dynamic CGA;Support of both upper extremities Patient/Family Training Bed Mobility yes - use of rail Transfer Training yes - hand placement Gait Training yes - use of WW Precautions yes Assessment Personal Factors/Comorbidities Impacting Care 3-4 personal factors/comorbidities Examination of Body Systems High (at least 4 Elements) Objectives of Body Systems Impaired bed mobility;Impaired transfers;Impaired ambulation Clinical Presentation of Patient Unpredictable and unstable characteristics Complexity Level of Evaluation Moderate Prognosis Good PT Assess/Eval Other (Comment) Patient has had a decline in her functional mobility due to current medical issues, however has also been declining at home. She will benefit from skilled PT during herhospitalization to improve her strength and mobility. Per dtr's concerns recommend SNF placement when medically ready. Recommendation PT Recommendation PT during hospitalization;PT at intermediate Facility PT Equipment Recommended 2 Wheeled walker Plan PT Treatments/Interventions Gait Training;Therapeutic Exercises;Therapeutic Activities;Patient/family training PT Frequency (5-11 x week for 1 week) PT plan for next session Continue PT progressing ther ex and mobility as tolerated If this is the last treatment note,it will serve as the discharge summary Yes End of Session End of Session Safety Chair alarm set/activated;Call light within reach;Family/friend present with patient Cosigned by Leia Davenport MD at 05/13/2021 12:01 PM RIGGING FOREMAN ING FOREMAN ING FOREMAN * Sarah Yang RN - 05/11/2021 9:30 AM CST progressing ING FOREMAN * Terrie Miller RN - 05/11/2021 12:53 AM CST Patient admitted at this time, ING FOREMAN documented in this encounter H&P Notes * Jennifer Grady MD - 05/11/2021 9:33 AM CST Hospitalist History and Physical Patient: Aviva Ch Date: 05/11/2021 female, 85-year-old Admit Date: 05/10/2021 Attending: Jennifer Grady MD REASON FOR ADMISSION: Fall HISTORY OF PRESENT ILLNESS: Aviva Ch is a 85-year-old female With past medical history significant for diabetes, hypertension, dyslipidemia, GERD, depression, hypothyroidism, dementia, presented after a fall. She wasbrought in by her daughter, who states that the patient normally uses a cane but was unable to get herself off of the ground today after a fall. She has apparently had progressive weakness over the past few weeks and been falling more recently. She is normally able to ambulate without assistance other than the cane. Admitted for further work-up and care. Pt was noted to have elevated trop, ED provider discussed w family, declined transfer, intervention or heparin treatment. Pt is deaf, denies chest pain via written communication. Allergy Allergies Allergen Reactions ??? Septra [Sulfamethoxazole-Trimethoprim] Rash Medication list Facility-Administered Medications Prior to Admission Medication Dose Route Frequency Provider Last Rate Last Admin ??? [DISCONTINUED] ciprofloxacin (CIPRO) tablet 500 mg 500 mg Oral Once Giovany Miller MD Medications Prior to Admission Medication Sig Dispense Refill ??? AMLODIPINE 5 MG tablet TAKE 1 TABLET BY MOUTH DAILY 90 tablet 0 ??? aspirin EC 81 MG EC tablet Take 81 mg by mouth daily. Indications: Anticoagulant Therapy ??? BENAZEPRIL 20 MG tablet TAKE 1 TABLET(20 MG) BY MOUTH DAILY 90 tablet 3 ??? Cholecalciferol (VITAMIN D) 2000 units Cap Take 2,000 Units by mouth daily. Indications: Nutritional Support ??? donepezil 10 MG Tab Take two tabs PO QAM ??? LEVOTHYROXINE 50 MCG tablet TAKE 1 TABLET(50 MCG) BY MOUTH EVERY MORNING 90 tablet 0 ??? memantine ER 28 MG 24 hr capsule Take 28 mg by mouth daily. ??? methenamine 1 g tablet TAKE 1 TABLET(1 GRAM) BY MOUTH TWICE DAILY WITH MEALS 60 tablet 3 ??? OMEPRAZOLE 20 MG capsule TAKE 1 CAPSULE(20 MG) BY MOUTH DAILY 90 capsule 1 ??? PRAVASTATIN 40 MG tablet TAKE 1 TABLET(40 MG) BY MOUTH EVERY NIGHT AT BEDTIME 90 tablet 0 ??? propranolol 10 MG tablet TAKE 1 TABLET BY MOUTH EVERY MORNING AND EVERY NIGHT AT BEDTIME ??? risperiDONE 0.5 MG tablet Take 1.5 mg by mouth nightly at bedtime. ??? rOPINIRole 2 MG tablet Take 2 mg by mouth nightly at bedtime. ??? sertraline 100 MG tablet Take 100 mg by mouth every morning. Indications: Depression ??? vitamin C 250 MG tablet Take 250 mg by mouth daily. ??? Blood Glucose Monitoring Suppl Device 1 Device by Does not apply route daily. Whatever brand insurance will pay for 100 Device 0 ??? Misc. Devices Misc 1 strip by Does not apply route daily. Whatever brand insurance will pay [id number] strip 0 ??? MYRBETRIQ 50 MG 24 hr tablet TAKE 1 TABLET(50 MG) BY MOUTH DAILY 30 tablet 3 ??? ONETOUCH DELICA PLUS [id number] Misc USE ONCE A DAY 100 each 0 ??? ONETOUCH VERIO test strip USE TO TEST EVERY DAY 100 strip 0 No current facility-administered medications on file prior to encounter. Current Outpatient Medications on File Prior to Encounter Medication Sig Dispense Refill ??? AMLODIPINE 5 MG tablet TAKE 1 TABLET BY MOUTH DAILY 90 tablet 0 ??? aspirin EC 81 MG EC tablet Take 81 mg by mouth daily. Indications: Anticoagulant Therapy ??? BENAZEPRIL 20 MG tablet TAKE 1 TABLET(20 MG) BY MOUTH DAILY 90 tablet 3 ??? Cholecalciferol (VITAMIN D) 2000 units Cap Take 2,000 Units by mouth daily. Indications: Nutritional Support ??? donepezil 10 MG Tab Take two tabs PO QAM ??? LEVOTHYROXINE 50 MCG tablet TAKE 1 TABLET(50 MCG) BY MOUTH EVERY MORNING 90 tablet 0 ??? memantine ER 28 MG 24 hr capsule Take 28 mg by mouth daily. ??? methenamine 1 g tablet TAKE 1 TABLET(1 GRAM) BY MOUTH TWICE DAILY WITH MEALS 60 tablet 3 ??? OMEPRAZOLE 20 MG capsule TAKE 1 CAPSULE(20 MG) BY MOUTH DAILY 90 capsule 1 ??? PRAVASTATIN 40 MG tablet TAKE 1 TABLET(40 MG) BY MOUTH EVERY NIGHT AT BEDTIME 90 tablet 0 ??? propranolol 10 MG tablet TAKE 1 TABLET BY MOUTH EVERY MORNING AND EVERY NIGHT AT BEDTIME ??? risperiDONE 0.5 MG tablet Take 1.5 mg by mouth nightly at bedtime. ??? rOPINIRole 2 MG tablet Take 2 mg by mouth nightly at bedtime. ??? sertraline 100 MG tablet Take 100 mg by mouth every morning. Indications: Depression ??? vitamin C 250 MG tablet Take 250 mg by mouth daily. ??? Blood Glucose Monitoring Suppl Device 1 Device by Does not apply route daily. Whatever brand insurance will pay for 100 Device 0 ??? Misc. Devices Misc 1 strip by Does not apply route daily. Whatever brand insurance will pay [id number] strip 0 ??? MYRBETRIQ 50 MG 24 hr tablet TAKE 1 TABLET(50 MG) BY MOUTH DAILY 30 tablet 3 ??? ONETOUCH DELICA PLUS [id number] Misc USE ONCE A DAY 100 each 0 ??? ONETOUCH VERIO test strip USE TO TEST EVERY DAY 100 strip 0 Past Medical History Past Medical History: Diagnosis Date ??? Bladder [...] PACEMAKER ??? REPAIR ROTATOR CUFF,ACUTE Social History Social History Socioeconomic History ??? Marital status: [...] Partner Violence: Not on file Family History Family History Problem Relation Name Age of Onset ??? Diabetes Other ??? Breast Cancer Other ??? Other (cardiac disorder) Other ??? Heart Attack Mother ??? No Known Problems Father REVIEW OF SYSTEMS: A 14 point review of systems was taken and pertinent positive as per HPI PHYSICAL EXAMINATION: Vital 24 Hour Range Most Recent Value Temperature Temp Min: 93.2 ??F (34 ??C) Max: 98.3 ??F (36.8 ??C) 98.1 ??F (36.7 ??C) Pulse Pulse Min: 60 Max: 76 60 Respiratory Resp Min: 14 Max: 28 16 Blood Pressure BP Min: 104/35 Max: 154/56 (!) 148/55 Pulse Oximetry SpO2 Min: 85 % Max: 95 % 94 % O2 No data recorded Vital Most Recent Value First Value Weight 47.3 kg (104 lb 4.4 oz) Weight: 49.9 kg (110 lb) Height 5' 4 (162.6 cm) Height: 5' 4 (162.6 cm) BMI 17.9 N/A Physical Exam: Physical Exam Constitutional: General: She is not in acute distress. Appearance: She is well-developed. HENT: Head: Normocephalic and atraumatic. Ears: Comments: deaf Cardiovascular: Rate and Rhythm: Normal rate and regular rhythm. Heart sounds: No murmur heard. Pulmonary: Effort: Pulmonary effort is normal. No respiratory distress. Breath sounds: No wheezing. Abdominal: General: There is no distension. Palpations: Abdomen is soft. Tenderness: There is no abdominal tenderness. Musculoskeletal: General: Normal range of motion. Cervical back: Normal range of motion. Skin: General: Skin is warm and dry. Findings: No erythema. Neurological: Mental Status: She is alert and oriented to person, place, and time. Psychiatric: Behavior: Behavior normal. Intake/Output last 3 shifts: I/O last 3 completed shifts: In: 1000 [I.V.:1000] Out: 300 [Urine:300] Labs: Recent Labs Lab 05/10/21 1800 05/11/21 0558 NA 144 146* K 3.4* 3.1* CL 107 108 CO2 29.2 26.6 AGAP 7.8 11.4 BUN 29* 20* CR 0.68 0.64 BUNCREATININ 42.6* 31.2* GFRNON 80* 81* GFR >90 >90 GLU 107* 88 CA 9.1 8.8 MAGNESIUM 1.7* 2.1 Recent Labs Lab 05/10/21 1800 05/11/21 0558 WBC 6.1 5.3 RBC 4.12* 4.23* HGB 11.9* 12.2* HCT 37.0 38.1 MCV 89.8 90.1 MCH 28.9 28.8 MCHC 32.2 32.0 PLT 185 175 RDW 13.6 13.8 MPV 9.9 9.7 Recent Labs Lab 05/10/21 1800 AST 18 ALT 25 No results for input(s): INR, PTT in the last 168 hours. Invalid input(s): ABG arterial blood gases Recent Labs Lab 05/10/21 1800 05/10/21202005/11/21 0558 TROP 322* 351* 300* No results for input(s): PH, PCO2, PO2, [id number], BICARBWB, BASEDEFICIT, BASEEXCESS in the [id number] hours. Imagining & Other Studies CT head 1. No acute intracranial process. ?? 2. Volume loss and small vessel disease. ?? 3. Cerebrovascular atherosclerosis. ?? XR T spine No fracture or subluxation. CXR Chronic interstitial infiltrates in the upper lobes. XR pelvis No fracture or dislocation. Results for orders placed or performed during the hospital encounter of 05/10/21 ECG 12 lead Narrative [facility] Test Date: 2021-05-10 Pat Name: AVIVA CH Department: Room: 122 Gender: Female Certified Court Interpreter: : 1935 Requested By: NUBIA ALLEN Order Number: [id number] Reading MD: Michael Jade Measurements Intervals [place] Rate: 66 P: 78 FL: 252 QRS: 9 QRSD: 139 T: 41 QT: 448 QTc: 469 Interpretive Statements ELECTRONIC ATRIAL PACEMAKER INDETERMINATE AXIS RIGHT BUNDLE BRANCH BLOCK Compared to ECG 02/15/2020 14:41:45 Indeterminate axis now present ING FOREMAN ECG [address] [facility] Test Date: 2021-05-10 Pat Name: AVIVA CH Department: Room: 122 Gender: Female Certified Court Interpreter: : 1935 Requested By: JEFFERY ZHONG Order Number: [id number] Reading MD: Michael Jade Measurements Intervals [place] Rate: 62 P: 95 FL: 282 QRS: 1 QRSD: 138 T: -2 QT: 474 QTc: 482 Interpretive Statements ELECTRONIC ATRIAL PACEMAKER INDETERMINATE AXIS INTRAVENTRICULAR CONDUCTION DELAY INFERIOR MYOCARDIAL INFARCTION , PROBABLY OLD Compared to ECG 05/10/2021 15:25:31 Intraventricular conduction delay now present Myocardial infarct finding now present Right bundle-branch block no longer present ING FOREMAN Assessment & Plan NSTEMI (non-ST elevated myocardial infarction) (CMS/HCC) Noted elevated troponin, trending down Continue aspirin, statin Family declines heparin or cardiac cath Hypertension Continue home medications Monitor and adjust as needed DM2 Accu-Cheks with SSI A1c HLD Statin Dementia Lives with family, will need PT and OT to evaluate, daughter states that they're unable to manage her if she can't walk at home Cont home meds VTE prophylaxis w subQ heparin I have seen and examined the patient independently and anticipate patient will require 2-3 midnight. OBS JENNIFER GRADY MD 05/11/2021 9:33 AM ING FOREMAN ING FOREMAN documented in this encounter Consult Notes * Marisel Baldwin MD - 05/12/2021 7:26 PM CSTAssociated Order(s): IP CONSULT TO CARDIOLOGY Cardiology Consult History Reason for consult: NSTEMI Aviva Ch is a 85-year-old female who presents with a fall and NSTEMI. Patient has a pastmedical history significant for symptomatic bradycardia, syncope, dementia, HTN. Patient very hard of hearing, and unable to give a real history, so story largely gathered from family who are at bedside. Sounds like patient fell over while cleaning a toilet on Wednesday. Unclear if she passed out ornot. Had difficulty getting off the floor and thus called for help; she lives with her daughter [id number]. Taken here due to fall. Found on initial eval to have a mild TnI increase - 322 -> 351 -> 300. No clear chest pain/pressure. EKG personally reviewed and shows a-pacing with RBBB. Asked to comment on elevated troponin by primary team Past Medical History: Diagnosis Date ??? Bladder [...] PACEMAKER ??? REPAIR ROTATOR CUFF,ACUTE Social History Tobacco Use ??? Smoking status: Never Smoker ??? Smokeless tobacco: Never Used Vaping Use ??? Vaping Use: Never used Substance Use Topics ??? Alcohol use: No ??? Drug use: No Family History Problem Relation Name Age of Onset ??? Diabetes Other ??? Breast Cancer Other ??? Other (cardiac disorder) Other ??? Heart Attack Mother ??? No Known Problems Father ??? amLODIPine 5 mg Oral Daily ??? aspirin EC 81 mg Oral Daily ??? aspirin 325 mg Oral Once ??? atorvastatin 5 mg Oral Once ??? docusate sodium 100 mg Oral BID ??? donepezil 10 mg Oral Daily ??? heparin (porcine) 5,000 Units Subcutaneous 2 times per day ??? insulin lispro 0-14 Units Subcutaneous TID AC And ??? insulin lispro 0-7 Units Subcutaneous Nightly at bedtime ??? levothyroxine 50 mcg Oral Daily ??? lisinopril 20 mg Oral Daily ??? memantine 10 mg Oral BID ??? methenamine 1 g Oral BID ??? pantoprazole EC 20 mg Oral Daily ??? propranolol 10 mg Oral BID ??? risperiDONE 1.5 mg Oral Nightly at bedtime ??? rOPINIRole 2 mg Oral Nightly at bedtime ??? sertraline 100 mg Oral Daily ??? vitamin C 250 mg Oral Daily ??? vitamin D3 (cholecalciferol) 2,000 Units Oral Daily acetaminophen, albuterol sulfate HFA, morphine, naLOXone, ondansetron, polyethylene glycol, traMADol Prior to Admission medications Medication Sig Start Date End Date Taking? Authorizing Provider AMLODIPINE 5 MG tablet TAKE 1 TABLET BY MOUTH DAILY 03/06/21 Yes Joni Mckeon MD aspirin EC 81 MG EC tablet Take 81 mg by mouth daily. Indications: Anticoagulant Therapy 01/03/18 Yes Elaina Jade MD BENAZEPRIL 20 MG tablet TAKE 1 TABLET(20 MG) BY MOUTH DAILY 03/25/21 Yes Joni Mckeon MD Cholecalciferol (VITAMIN D) 2000 units Cap Take 2,000 Units by mouth daily. Indications: Nutritional Support 01/03/18 Yes Elaina Jade MD donepezil 10 MG Tab Take two tabs PO QAM 08/17/19 Yes Doc Abstract LEVOTHYROXINE 50 MCG tablet TAKE 1 TABLET(50 MCG) BY MOUTH EVERY MORNING 03/06/21 Yes DEEPALI Macias memantine ER 28 MG 24 hr capsule Take 28 mg by mouth daily. Yes Doc Abstract methenamine 1 g tablet TAKE 1 TABLET(1 GRAM) BY MOUTH TWICE DAILY WITH MEALS 10/31/20 Yes Giovany Miller MD OMEPRAZOLE 20 MG capsule TAKE 1 CAPSULE(20 MG) BY MOUTH DAILY 03/26/21 Yes DEEPALI Macias PRAVASTATIN 40 MG tablet TAKE 1 TABLET(40 MG) BY MOUTH EVERY NIGHT AT BEDTIME 03/06/21 Yes DEEPALI Macias propranolol 10 MG tablet TAKE 1 TABLET BY MOUTH EVERY MORNING AND EVERY NIGHT AT BEDTIME 01/04/21 Yes Doc Abstract risperiDONE 0.5 MG tablet Take 1.5 mg by mouth nightly at bedtime. 01/31/21 Yes Doc Abstract rOPINIRole 2 MG tablet Take 2 mg by mouth nightly at bedtime. Yes Doc Abstract sertraline 100 MG tablet Take 100 mg by mouth every morning. Indications: Depression 08/17/19 Yes Doc Abstract vitamin C 250 MG tablet Take 250 mg by mouth daily. Yes Doc Abstract Blood Glucose Monitoring Suppl Device 1 Device by Does not apply route daily. Whatever brand insurance will pay for 12/19/20 Elaina Jade MD Misc. Devices Misc 1 strip by Does not apply route daily. Whatever brand insurance will pay for 12/19/20 MD DARELL CasianoUCH DELICA PLUS [id number] Misc USE ONCE A DAY 03/19/21 MD FIONA CasianoTOUCH VERIO test strip USE TO TEST EVERY DAY 03/10/21 Elaina Jade MD Allergies Allergen Reactions ??? Septra [Sulfamethoxazole-Trimethoprim] Rash Review of Systems Constitutional: Positive for malaise/fatigue. Negative for chills and fever. HENT: Negative for ear pain, sore throat and tinnitus. Eyes: Negative for blurred vision and pain. Respiratory: Negative for cough and hemoptysis. Cardiovascular: Negative for chest pain and palpitations. Gastrointestinal: Negative for diarrhea, melena, nausea and vomiting. Genitourinary: Negative for dysuria and hematuria. Musculoskeletal: Negative for neck pain. Skin: Negative for rash. Neurological: Positive for weakness. Negative for speech change, seizures and headaches. Endo/Heme/Allergies: Negative for polydipsia. Does not bruise/bleed easily. Psychiatric/Behavioral: Positive for memory loss. The patient does not have insomnia. Physical Exam Filed Vitals: 05/11/21 2348 05/11/21 2350 05/12/21 1321 05/12/21 1910 BP: 129/67 129/67 (!) 141/55 125/56 Pulse: 65 64 67 66 Resp: 18 16 18 18 Temp: 98 ??F (36.7 ??C) 97.9 ??F (36.6 ??C) 98 ??F (36.7 ??C) 97.6 ??F (36.4 ??C) TempSrc: Tympanic Tympanic Temporal Temporal SpO2: 94% 95% 94% 93% Weight: 48.3 kg (106 lb 7.7 oz) Height: Physical Exam: Physical Exam Vitals reviewed. Constitutional: General: She is not in acute distress. Appearance: She is well-developed. HENT: Head: Normocephalic and atraumatic. Nose: No mucosal edema. Eyes: Pupils: Pupils are equal, round, and reactive to light. Neck: Vascular: No carotid bruit or JVD. Cardiovascular: Rate and Rhythm: Normal rate and regular rhythm. No extrasystoles are present. Heart sounds: S1 normal and S2 normal. Murmur heard. No gallop. Pulmonary: Effort: Pulmonary effort is normal. No respiratory distress. Breath sounds: Normal breath sounds. Abdominal: Palpations: Abdomen is soft. Tenderness: There is no abdominal tenderness. Musculoskeletal: General: No deformity. Normal range of motion. Cervical back: Neck supple. Skin: General: Skin is warm and dry. Neurological: Mental Status: She is alert and oriented to person, place, and time. Cranial Nerves: No cranial nerve deficit. Psychiatric: Behavior: Behavior normal. Thought Content: Thought content normal. Recent Labs Lab 05/10/21179905/11/2155705/12/21556 WBC 6.1 5.3 5.9 HGB 11.9* 12.2* 13.4 HCT 37.0 38.1 42.2 MCV 89.8 90.1 91.1 PLT 185 175 196 Recent Labs Lab 05/10/21179905/11/2155705/12/21556 NA 144 146* 144 K 3.4* 3.1* 4.2 CL 107 108 105 CO2 29.2 26.6 30.1 AGAP 7.8 11.4 8.9 BUN 29* 20* 18 CR 0.68 0.64 0.81 BUNCREATININ 42.6* 31.2* 22.2 GFRNON 80* 81* 66* GFR >90 >90 77* GLU 107* 88 181* CA 9.1 8.8 9.4 TP 6.1* -- -- ALB 3.2* -- -- TBIL 0.4 -- -- ALKP 101 -- -- AST 18 -- -- ALT 25 -- -- No results for input(s): APTT, INR, PTT in the last 168 hours. Recent Labs Lab 05/10/21179905/10/21179905/11/2155705/11/2155705/12/21556 CHOL -- -- 119 -- -- TRI -- -- 83 -- -- HDL -- -- 58 -- -- LDL -- -- 44 -- -- NA 144 < > 146* < > 144 K 3.4* < > 3.1* < > 4.2 CL 107 < > 108 < > 105 CO2 29.2 < > 26.6 < > 30.1 BUN 29* < > 20* < > 18 CR 0.68 < > 0.64 < > 0.81 CA 9.1 < > 8.8 < > 9.4 GLU 107* < > 88 < > 181* AGAP 7.8 < > 11.4 < > 8.9 TP 6.1* -- -- -- -- ALB 3.2* -- -- -- -- ALT 25 -- -- -- -- WBC 6.1 < > 5.3 < > 5.9 HGB 11.9* < > 12.2* < > 13.4 PLT 185 < > 175 < > 196 HGBA1C -- -- 5.9* < > 6.2* TSH 4.155* < > 3.772* -- -- < > = values in this interval not displayed. Results for orders placed or performed during the hospital encounter of 05/10/21 (from the past 8736 hour(s)) CULTURE URINE Collection Time: 05/10/21 6:50 PM Specimen: URINE, CLEAN CATCH Result Value Ref Range Spec. Description URINE CLEAN CATCH Special Requests: NO SPECIAL REQUEST Culture Result: NO GROWTH 1 DAY No results found for this visit on 05/10/21 (from the past 8736 hour(s)). Recent Labs Lab 05/10/21 1800 05/10/21202005/11/21 0558 TROP 322* 351* 300* EKG: Results for orders placed or performed during the hospital encounter of 05/10/21 ECG 12 lead Narrative [facility] Test Date: 2021-05-10 Pat Name: AVIVA CH Department: Room: [facility] Gender: Female Certified Court Interpreter: : 1935 Requested By: NUBIA ALLEN Order Number: [id number] Spencer MD: Michael Jade Measurements Intervals [place] Rate: 66 P: 78 FL: 252 QRS: 9 QRSD: 139 T: 41 QT: 448 QTc: 469 Interpretive Statements ELECTRONIC ATRIAL PACEMAKER INDETERMINATE AXIS RIGHT BUNDLE BRANCH BLOCK Compared to ECG 02/15/2020 14:41:45 Indeterminate axis now present ING FOREMAN ECG [address] [facility] Test Date: 2021-05-10 Pat Name: AVIVA CH Department: Room: 122 Gender: Female Certified Court Interpreter: : 1935 Requested By: JEFFERY ZHONG Order Number: [id number] Reading MD: Michael Jade Measurements Intervals [place] Rate: 62 P: 95 FL: 282 QRS: 1 QRSD: 138 T: -2 QT: 474 QTc: 482 Interpretive Statements ELECTRONIC ATRIAL PACEMAKER INDETERMINATE AXIS INTRAVENTRICULAR CONDUCTION DELAY INFERIOR MYOCARDIAL INFARCTION , PROBABLY OLD Compared to ECG 05/10/2021 15:25:31 Intraventricular conduction delay now present Myocardial infarct finding now present Right bundle-branch block no longer present ING FOREMAN Imaging: No results found. Assessment Principal Problem: NSTEMI (non-ST elevated myocardial infarction) (CMS/HCC) SNOMED CT(R): MYOCARDIAL INFARCTION SSS s/p pacer Plan NSTEMI - likely a type II event. Echo, on prelim report, shows normal EF, no clear wall motion abnormalities. Patient/family have already said they don't want further intervention or anticoagulation.Agree with ASA and statin. HTN - Not bad control, no changes needed SSS s/p pacer - working well on last remote check less than a week ago. If there was not an interrogation done in the ED, should be done before discharge to make sure pacer is working well. [facility] device. Needs follow up with Dr. Mckeon in the next 4-6 weeks. MARISEL BALDWIN MD ING FOREMAN documented in this encounter Nursing Notes * Melissa Suero RN - 05/14/2021 12:57 PM CST Patient is alert and responsive. Plan to D/C today. Home medication return to daughter. ING FOREMAN documented in this encounter ED Notes * Argelia Martinez MD - 05/11/2021 7:24 PM CST Emergency Department Assumed Care Note Patient signed out to me by Dr Zhong. Briefly, Aviva Ch is a 85-year-old female is being evaluated for weakness Vitals: 05/11/21 1537 BP: (!) 170/50 Pulse: 67 Resp: 16 Temp: 98.7 ??F (37.1 ??C) SpO2: 94% Progress notes: Pt from Dr. Zhong. Has worsening weakness. Pt h/o dementia and limited historian. Pt has elevatedtrop. Discussed at length with family, would not want any interventions such as cardiac cath. Discussed anticoagulation with family and they would not want anticoagulation at this time. Pt admitted for further care. Clinical impression: SNOMED CT(R) 1. Weakness ASTHENIA Disposition: Admit ARGELIA MARTINEZ MD 05/11/2021 Argelia Martinez MD 05/11/211926 ING FOREMAN * Jeffery Zhong, - 05/10/2021 5:22 PM CSTAssociated Order(s): EKG Reading; EKG Reading 5:00PM - assumed care, pending labs. 5:40PM -I evaluated the patient at bedside. 85-year-old female presents to emergency department with daughter after having a fall today. Daughter states patient usually ambulates with a cane. Patientfell today at home. She cannot get herself off the ground. Family notes progressive weakness over the past few weeks. She also has been falling more recently. Family got the patient to a chair, family states patient cannot sit up from the chair by herself. Usually she can get up off the chair without assistance. Physical exam shows diffuse weakness, nonfocal examination. 7:00PM - care transferred to Dr. Martinez, pending labs. Labs Reviewed CBC W/DIFF AUTOMATED - Abnormal; Notable for the following components: Result Value RBC 4.12 (*) HGB 11.9 (*) LYMPHOCYTES 13.8 (*) NEUTROPHILS 76.1 (*) All other components within normal limits COMPREHENSIVE METABOLIC PANEL - Abnormal; Notable for the following components: GLUCOSE 107 (*) BUN 29 (*) POTASSIUM 3.4 (*) TOTAL PROTEIN S/P/B 6.1 (*) ALBUMIN S/P/B 3.2 (*) BUN CREATININE RATIO 42.6 (*) eGFR Non-Afr. Amer. 80 (*) All other components within normal limits TSH W/REFLEX - Abnormal; Notable for the following components: TSH 4.155 (*) All other components within normal limits TROPONIN, QUANT - Abnormal; Notable for the following components: TROPONIN I HIGH SENSITIVITY 322 (*) All other components within normal limits PRO-BRAIN NATRIURETIC PEPTIDE - Abnormal; Notable for the following components: Pro-B TYPE NATRIURETIC PEPTIDE 1,110 (*) All other components within normal limits MAGNESIUM - Abnormal; Notable for the following components: MAGNESIUM 1.7 (*) All other components within normal limits SALICYLATE - Abnormal; Notable for the following components: Salicylates 1.3 (*) All other components within normal limits URINALYSIS, AUTO, COMPLETE THYROXINE, FREE (FT4) Radiology Results (Last 48 hours) 05/10/[address] HEAD WO CON Final result Impression: IMPRESSION: 1. No acute intracranial process. 2. Volume loss and small vessel disease. 3. Cerebrovascular atherosclerosis. Ordered By: NUBIA ALLEN Interpreted By: Mark Anthony Zaman, 05/10/2021 4:20 PM 05/10/21 1542 XR CHEST PORTABLE Final result Impression: IMPRESSION: 1. Chronic interstitial infiltrates in the upper lobes. Ordered By: NUBIA ALLEN Interpreted By: Mark Anthony Zaman, 05/10/2021 3:43 PM 05/10/21 1542 XR THOR SPINE 3V Final result Impression: IMPRESSION: No fracture or subluxation. Ordered By: NUBIA ALLEN Interpreted By: Mark Anthony Zaman, 05/10/2021 3:44 PM 05/10/21 1542 XR PELVIS 1 OR 2 VIEWS Final result Impression: IMPRESSION: No fracture or dislocation. Ordered By: NUBIA ALLEN Interpreted By: Mark Anthony Zaman, 05/10/2021 3:43 PM EKG Reading Date/Time: 05/10/2021 3:25 PM Performed by: Jeffery Zhong DO Authorized by: Jeffery Zhong DO Interpreted by ED physician Rhythm: paced Ectopy comments: none Rate: normal BPM: 66 QRS axis: normal Conduction: non-specific intraventricular conduction delay Q waves: III, aVF and V1 Clinical impression: abnormal ECG EKG Reading Date/Time: 05/10/2021 5:31 PM Performed by: Jeffery Zhong DO Authorized by: Jeffery Zhong DO Interpreted by ED physician Rhythm: paced Ectopy comments: none Rate: normal BPM: 62 QRS axis: normal Q waves: V1 and V2 Clinical impression: abnormal ECG Diagnosis: 1. Weakness Disposition:care transferred DO Jeffery MALIK DO 05/10/211909 ING FOREMAN * Nubia Allen, MIKE - 05/10/2021 3:15 PM CST Emergency Department Note Chief Complaint Chief Complaint Patient presents with ??? Fall History of Present Illness History by Daughter, patient has dementia and lives with daughter and son in law who are primary care givers. Has fallen twice in past few weeks, today was found scooting on the bed room floor from the bathroom. Did not hear a fall. Could not get up on her own and has not walked for daughter. Patient is able to walk to the dining room for meals and eats well, has had breakfast and lunch today. Is not walking, which leads daughter to believe there is an injury. Cannot care for at home if patient will not walk. Is OK if patient needs placement. No recent medication changes. BP'is low' And daughter reports she has lost a lot of weight over past few years. Medical History ALLERGIES: Allergies Allergen Reactions ??? Septra [Sulfamethoxazole-Trimethoprim] Rash MEDICATIONS: Prior to Admission medications Medication Sig Start Date End Date Taking? Authorizing Provider AMLODIPINE 5 MG tablet TAKE 1 TABLET BY MOUTH DAILY 03/06/21 Joni Mckeon MD aspirin EC 81 MG EC tablet Take 81 mg by mouth daily. Indications: Anticoagulant Therapy 01/03/18 Elaina Jade MD BENAZEPRIL 20 MG tablet TAKE 1 TABLET(20 MG) BY MOUTH DAILY 03/25/21 Joni Mckeon MD Blood Glucose Monitoring Suppl Device 1 Device by Does not apply route daily. Whatever brand insurance will pay for 12/19/20 Elaina Jade MD Cholecalciferol (VITAMIN D) 2000 units Cap Take 2,000 Units by mouth daily. Indications: Nutritional Support 01/03/18 Elaina Jade MD donepezil 10 MG Tab Take two tabs PO QAM 08/17/19 Doc Abstract LEVOTHYROXINE 50 MCG tablet TAKE 1 TABLET(50 MCG) BY MOUTH EVERY MORNING 03/06/21 DEEPALI Macias memantine ER 28 MG 24 hr capsule Take 28 mg by mouth daily. Doc Abstract methenamine 1 g tablet TAKE 1 TABLET(1 GRAM) BY MOUTH TWICE DAILY WITH MEALS 10/31/20 Giovany Miller MD Misc. Devices Misc 1 strip by Does not apply route daily. Whatever brand insurance will pay for 12/19/20 Elaina Jade MD MYRBETRIQ 50 MG 24 hr tablet TAKE 1 TABLET(50 MG) BY MOUTH DAILY 10/29/20 Giovany Miller MD nitrofurantoin 50 MG capsule Take 1 capsule (50 mg total) by mouth nightly at bedtime. 10/19/19 Giovany Miller MD OMEPRAZOLE 20 MG capsule TAKE 1 CAPSULE(20 MG) BY MOUTH DAILY 03/26/21 DEEPALI Macias ONETOUCH DELICA PLUS [id number] Misc USE ONCE A DAY 03/19/21 MD SILVIA Casiano VERIO test strip USE TO TEST EVERY DAY 03/10/21 Elaina Jade MD PRAVASTATIN 40 MG tablet TAKE 1 TABLET(40 MG) BY MOUTH EVERY NIGHT AT BEDTIME 03/06/21 DEEPALI Macias propranolol 10 MG tablet TAKE 1 TABLET BY MOUTH EVERY MORNING AND EVERY NIGHT AT BEDTIME 01/04/21 Doc Abstract risperiDONE 0.5 MG tablet Take 1.5 mg by mouth nightly at bedtime. 01/31/21 Doc Abstract rOPINIRole 2 MG tablet Take 2 mg by mouth nightly at bedtime. Doc Abstract sertraline 100 MG tablet Take 100 mg by mouth every morning. Indications: Depression 08/17/19 Doc Abstract vitamin C 250 MG tablet Take 250 mg by mouth daily. Doc Abstract PAST MEDICAL HISTORY: Past Medical History: Diagnosis Date ??? Bladder infection ??? Cancer (CMS/HCC) Past cancer survivor. breast CA ??? Diabetes (CMS/HCC) ??? GERD (gastroesophageal reflux disease) ??? Hyperlipidemia ??? Hypertension ??? Hypothyroidism ??? Insomnia ??? Sepsis (CMS/HCC) ??? SSS (sick sinus syndrome) (CMS/HCC) ??? Urinary tract infection ??? Vitamin D deficiency ??? Weight loss PAST SURGICAL HISTORY: Past Surgical History: Procedure Laterality Date ??? ABDOMINAL SURGERY ??? BREAST REDUCTION BILATERAL ??? CHOLECYSTECTOMY ??? COLONOSCOPY ??? HEMORRHOIDECTOMY ??? HYSTERECTOMY ??? INJECTION BOTOX Bladder ??? INNER EAR SURGERY PROC UNLISTED ??? PACEMAKER 02/15/2020 [facility] ??? PACEMAKER ??? REPAIR ROTATOR CUFF,ACUTE FAMILY HISTORY: Family History Problem Relation Name Age of Onset ??? Diabetes Other ??? Breast Cancer Other ??? Other (cardiac disorder) Other ??? Heart Attack Mother ??? No Known Problems Father SOCIAL HISTORY: Social History Tobacco Use ??? Smoking status: Never Smoker ??? Smokeless tobacco: Never Used Vaping Use ??? Vaping Use: Never used Substance Use Topics ??? Alcohol use: No ??? Drug use: No Review of Systems Review of Systems Unable to perform ROS: Dementia Physical Exam Filed Vitals: 05/10/21 1441 05/10/21 1700 BP: (!) 104/35 129/60 Pulse: 65 62 Resp: 14 15 Temp: 93.2 ??F (34 ??C) 97.9 ??F (36.6 ??C) TempSrc: Tympanic Temporal SpO2: 95% 93% Weight: 49.9 kg (110 lb) Height: 5' 4 (1.626 m) Physical Exam Vitals reviewed. Constitutional: General: She is not in acute distress. Appearance: She is well-developed. Comments: Frail appearing elder. HENT: Head: Normocephalic and atraumatic. Comments: No bruising to head , no drainage from nose or ears. Eyes: Pupils: Pupils are equal, round, and reactive to light. Cardiovascular: Rate and Rhythm: Normal rate and regular rhythm. Heart sounds: Normal heart sounds. No murmur heard. Pulmonary: Effort: Pulmonary effort is normal. Breath sounds: Normal breath sounds. Abdominal: General: Bowel sounds are normal. Palpations: Abdomen is soft. Tenderness: There is no abdominal tenderness. Musculoskeletal: General: No tenderness. Cervical back: Neck supple. Comments: No edema. No pain or grimacing expressed when I palpate limbs, spine or hips/ pelvis. Is up with assistance and slow steps to the gurney. Does not grimace to steps. Or placing her on gurney. Skin: General: Skin is warm and dry. Coloration: Skin is not pale. Neurological: Mental Status: She is alert and oriented to person, place, and time. Psychiatric: Behavior: Behavior normal. Thought Content: Thought content normal. Judgment: Judgment normal. Diagnostic Studies / Procedures ELECTROCARDIOGRAMS: Results for orders placed or performed during the hospital encounter of 05/10/21 ECG 12 lead Narrative [facility] Test Date: 2021-05-10 Pat Name: AVIVA CH Department: Room: [place] [address] Gender: Female Certified Court Interpreter: : 1935 Requested By: NUBIA ALLEN Order Number: [id number] Reading MD: Measurements Intervals [place] Rate: 66 P: 78 FL: 252 QRS: 9 QRSD: 139 T: 41 QT: 448 QTc: 469 Interpretive Statements ELECTRONIC ATRIAL PACEMAKER INDETERMINATE AXIS RIGHT BUNDLE BRANCH BLOCK [120+ ms QRS DURATION, UPRIGHT V1, 40+ ms S IN I/aVL/V4/V5/V6] Compared to ECG 02/15/2020 14:41:45 Indeterminate axis now present Rhythm: pacer Rate: 66 QTc: 469 Ectopy : no Overview of Ekg interpretation provided by ERP other ischemic changes No STEMI Prior EKG for comparison 02/15/2020, indeterminate axis now present Reviewed and scribed by me, VOLUNTEER FIREFIGHTER LABORATORY STUDIES: No results found for this visit on 05/10/21. IMAGING STUDIES CT HEAD WO CON Final Result by User, [id number] (05/10 162) EXAM: CT HEAD WO CON DATE: 05/10/2021 HISTORY: Head trauma, minor (Age >= 65y) . TECHNIQUE: Multislice sequential. Radiation dose reduction technique was utilized. COMPARISON: 07/30/2019. FINDINGS: There is no evidence of intracranial mass effect, hemorrhage, or acute hydrocephalus. The sulci are prominent and the ventricles are symmetrically dilated indicative of volume loss. The third and fourth ventricles are in the midline. There are no acute brain parenchymal changes or extra-axial fluid collections. Hypodensities in the periventricular white matter are consistent with ischemic small vessel disease. The posterior fossa contents are unremarkable. Cerebrovascular atherosclerosis is noted. The calvarium is intact. The visualized sinuses and mastoid air cells are not opacified. IMPRESSION: 1. No acute intracranial process. 2. Volume loss and small vessel disease. 3. Cerebrovascular atherosclerosis. Ordered By: NUBIA ALLEN Interpreted By: Mark Anthony Zaman, 05/10/2021 4:20 PM XR CHEST PORTABLE Final Result by User, [id number] (05/10 0877) EXAM: XR CHEST PORTABLE AT 1531 HOURS DATE: 05/10/2021 HISTORY: cough COMPARISON: 08/11/2019 FINDINGS: Since the prior exam a multilead electronic cardiac device with leads through the right subclavian route has been placed. The right hemidiaphragm remains elevated. There are chronic interstitial infiltrates in the right upper lobe. No pneumothorax or pleural effusion is seen. The heart appears normal in size. IMPRESSION: 1. Chronic interstitial infiltrates in the upper lobes. Ordered By: NUBIA ALLEN Interpreted By: Mark Anthony Zamna, 05/10/2021 3:43 PM XR THOR SPINE 3V Final Result by User, [id number] (05/10 3276) EXAM: XR THOR SPINE 3V DATE: 05/10/2021 HISTORY: pain . COMPARISON: None. FINDINGS: Bony alignment is maintained and shows no subluxation. No anterior wedge compression deformities or fractures are evident. Vertebral body heights and intervertebral disc spaces are maintained. IMPRESSION: No fracture or subluxation. Ordered By: NUBIA ALLEN Interpreted By: Mark Anthony Zaman, 05/10/2021 3:44 PM XR PELVIS 1 OR 2 VIEWS Final Result by User, [id number] (05/10 824) EXAM: XR PELVIS 1 OR 2 VIEWS HISTORY: fall . COMPARISON: 01/31/2020. FINDINGS: The pelvic ring is intact. The sacroiliac joints are symmetrical and not widened or displaced. The femoral heads sit in good anatomic alignment with the acetabula. No fracture or dislocation is seen. 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 IMPRESSION: No fracture or dislocation. Ordered By: NUBIA ALLEN Interpreted By: Mark Anthony Zaman, 05/10/2021 3:43 PM ED Course / Medical Decision Making Results: Awaiting labs and dispo. Care of patient turned over to Dr Zhong, change of shift. I reviewed old medical records, obtained from Care Everywhere, as well as internal past medical records, where needed and available. I interpreted the patient's pulse oximeter at rest, which is 93% on room air which is normal and determined that this patient is not hypoxic The elements of the HPI, review of systems, past medical history, past surgical history, past family history, social history, medication list, allergies, and examination documented above were personally obtained by me via direct interaction of the patient when possible, with the exception of circumstances or patient factors limiting my ability to do so, as above. In instances where nursing or other providers documented this information prior to my encounter, I personally confirmed the accuracy of this information to the best of my ability given the circumstances. Laboratory Data Reviewed: Noted labs, and abnormals noted on work sheet Imaging Studies Reviewed: Read interpretation report from radiologist. Reviewed images of xrays, independently. Did not speakwith radiologist re: xrays and CT ED Course: Patient condition at time of change of shift, stable Diagnoses & treatment discussed with patient/ daughter Patient expressed understanding and agreed. ED Diagnosis: Clinical Impression None Disposition: Data Unavailable Medications acetaminophen (TYLENOL) tablet 1,000 mg (1,000 mg Oral Given 05/10/21 0955) Clinical Impression None Current Discharge Medication List Medications acetaminophen (TYLENOL) tablet 1,000 mg (1,000 mg Oral Given 05/10/21 162) Current Discharge Medication List Disposition: Data Unavailable Follow-Up: No follow-up provider specified. NUBIA ALLEN NP 05/10/2021 Note: This H+P / note was created with the aid of dictation software, thus there may be some word substitutions or errors. Nubia Allen NP 05/11/21 0800 Cosigned by Jeffery Zhong DO at 05/11/2021 5:53 PM RIGGING FOREMAN ING FOREMAN ING FOREMAN * Jessie Dickey RN - 05/10/2021 2:38 PM CSTSummary: Fall, unable to ambulate after fall Pt arrived to unit in w/c accompanied by dtr. Dtr is historian. States pt had fall this morning in bathroom and has not been able to ambulate since, difficulty transferring into car as well and required assistance. Denies pain, no visible injuries. Dtr states that pt has been having more frequent falls, fell X3 weeks ago before today. Pt lives with dtr. ING FOREMAN documented in this encounter Plan of Treatment Not on file documented as of this encounter Goals Goal Patient Goal Type Associated Problems Recent Progress Patient-Stated? Author Improve Home Support System General No Laura Cheatham, RN Return home with [facility] home health General No Malgorzata Brown SERVICE AND REPAIR SUPERVISOR HOME WITH DAUGHTER General No Laura Cheatham, steam engineer - family caregiver with be involved in care transitions and discharge planning General No Laura Cheatham RN documented as of this encounter Procedures Procedure Name Priority Date/Time Associated Diagnosis Comments POCT GLUCOSE - MARISCAL DOCKED DEVICE Routine 05/14/2021 11:14 AM RIGGING FOREMAN CORONAVIRUS (COVID-19) ANTIGEN DIRECT OPTICAL Routine 05/14/2021 10:30 AM RIGGING FOREMAN POCT GLUCOSE - MARISCAL DOCKED DEVICE Routine 05/14/2021 6:26 AM RIGGING FOREMAN POCT GLUCOSE - MARISCAL DOCKED DEVICE Routine 05/13/2021 8:27 PM RIGGING FOREMAN POCT GLUCOSE - MARISCAL DOCKED DEVICE Routine 05/13/2021 4:12 PM RIGGING FOREMAN POCT GLUCOSE - MARISCAL DOCKED DEVICE Routine 05/13/2021 11:02 AM RIGGING FOREMAN BASIC METABOLIC PANEL Routine 05/13/2021 5:39 AM RIGGING FOREMAN CBC W/DIFF AUTOMATED Routine 05/13/2021 5:39 AM RIGGING FOREMAN POCT GLUCOSE - MARISCAL DOCKED DEVICE Routine 05/13/2021 5:37 AM RIGGING FOREMAN POCT GLUCOSE - MARISCAL DOCKED DEVICE Routine 05/12/2021 4:08 PM RIGGING FOREMAN POCT GLUCOSE - MARISCAL DOCKED DEVICE Routine 05/12/2021 12:10 PM RIGGING FOREMAN USE ECHOCARDIOGRAM Today 05/12/2021 11 :15 AM RIGGING FOREMAN THYROXINE, FREE (FT4) Routine 05/12/2021 9:05 AM RIGGING FOREMAN POCT GLUCOSE - MARISCAL DOCKED DEVICE Routine 05/12/2021 7:15 AM RIGGING FOREMAN HEMOGLOBIN, GLYCOSYLATED Routine 022 5:57 AM RIGGING FOREMAN BASIC METABOLIC PANEL Routine 05/12/2021 5:57 AM RIGGING FOREMAN CBC W/DIFF AUTOMATED Routine 05/12/2021 5:57 AM RIGGING FOREMAN POCT GLUCOSE - MARISCAL DOCKED DEVICE Routine 05/11/2021 8:43 PM RIGGING FOREMAN POCT GLUCOSE - MARISCAL DOCKED DEVICE Routine 05/11/2021 3:41 PM RIGGING FOREMAN POCT GLUCOSE - MARISCAL DOCKED DEVICE Routine 05/11/2021 12:19 PM RIGGING FOREMAN HEMOGLOBIN, GLYCOSYLATED Routine 5:58 AM RIGGING FOREMAN BASIC METABOLIC PANEL Routine 05/11/2021 5:58 AM [employer]GING FOREMAN LIPID PANEL Routine 05/11/2021 5:58 AM [employer]GING FOREMAN CBC W/DIFF AUTOMATED Routine 05/11/2021 5:58 AM [employer]GING FOREMAN TROPONIN, QUANT Routine 05/11/2021 5:58 AM [employer]GING FOREMAN THYROID STIM HORMONE TSH Routine 5:58 AM RIGGING FOREMAN MAGNESIUM Routine 05/11/2021 5:58 AM RIGGING FOREMAN TROPONIN, QUANT TIMED 05/10/2021 8:21 PM [employer]IGGING FOREMAN URINE BACTERIA CULTURE Routine 6:50 PM [employer]IGGING FOREMAN URINALYSIS, AUTO, COMPLETE STAT 05/10/2021 6:50 PM RIGGING FOREMAN TSH W/REFLEX STAT 05/10/2021 6:00 PM [employer]GING [employer]EMAN PRO-BRAIN NATRIURETIC PEPTIDE STAT 05/10/2021 6:00 PM [employer]ING [employer]AN COMPREHENSIVE METABOLIC PANEL STAT 05/10/2021 6:00 PM [employer]IGGING [employer]EMAN CBC W/DIFF AUTOMATED STAT 05/10/2021 6:00 PM RIGGING FOREMAN THYROXINE, FREE (FT4) STAT 05/10/2021 6:00 PM RIGGING FOREMAN TROPONIN, QUANT STAT 05/10/2021 6:00 PM RIGGING FOREMAN MAGNESIUM STAT 05/10/2021 6:00 PM RIGGING FOREMAN SALICYLATE STAT 05/10/2021 6:00 PM RIGGING FOREMAN ECG 12-LEAD Routine 05/10/2021 5:31 PM RIGGING FOREMAN ELECTROCARDIOGRAM REPORT Routine 022 5:[address] HEAD WO CON STAT 05/10/2021 3:43 PM RIGGING FOREM[employer] XR THOR SPINE 3V STAT 05/10/2021 3:42 PM RIGGING FOREMAN XR PELVIS 1 OR 2 VIEWS STAT 3:42 PM RIGGING FOREMAN XR CHEST PORTABLE STAT 05/10/2021 3:4 2 PM RIGGING FOREMAN ECG 12-LEAD Routine 05/10/2021 3:25 PM RIGGING FOREMAN ELECTROCARDIOGRAM REPORT Routine 022 3:25 PM R[employer]GING FOREMAN documented in this encounter Results * (ABNORMAL) POCT glucose (05/14/2021 11:14 AM RIGGING FOREMAN) [facility] GLUCOSE POC 241(H) 70 - 110 mg/dL 05/14/2021 11:16 AM [employer]ING [employer]EMAN [facility] 05/14/2021 11:1 4 AM [employer]GING FOREMAN us Ludy Coon NP POCT ORDERABLES - DEVICE Lisa l Result [facility] [address] [place] [address], [place] [phone] * CORONAVIRUS (COVID-19) ANTIGEN DIRECT OPTICAL RAPID (05/14/2021 10:30 AM RIGGING FOREMAN) [facility] CORONAVIRUS ANTIGEN IA NEGATIVE NEGATIVE 05/14/2021 11:02 AM RIGGING FOREMAN [facility] Comment: NEGATIVE RESULTS DO NOT RULE OUT SARS-COV-2 INFECTION AND SHOULD NOT BE USED THE SOLE BASIS FOR TREATMENT OR PATIENT MANAGEMENT DECISIONS, INCLUDING INFECTION CONTROL DECISIONS. NEGATIVE RESULTS SHOULD BE CONSIDERED IN THE CONTEXT OF A PATIENT'S RECENT EXPOSURES, HISTORY AND THE PRESENCE OF CLINICAL SIGNS AND SYMPTOMS CONSISTENT WITH COVID 19. THIS TEST HAS BEEN AUTHORIZED BY THE FDA UNDER AN EMERGENCY USE AUTHORIZATION (EUA) FOR USE BY AUTHORIZED LABORATORIES. SPECIMEN TYPE NASAL 05/14/2021 10:35 AM RIGGING FOREMAN [facility] FIRST TEST UNKNOWN 05/14/2021 10:[address] [facility] EMPLOYED IN HEALTHCARE NO 05/14/2021 10:[address] [facility] SYMPTOMATIC DEFINED BY CDC NO 05/14/2021 10:[address] [facility] DATE OF SYMPTOM ONSET UNKNOWN 05/14/2021 10:[address] [facility] HOSPITALIZATION STATUS YES 05/14/2021 10:[address] [facility] PATIENT IN ICU NO 05/14/2021 10:[address] [facility] RESIDENT OF [facility]ATE CARE NO 05/14/2021 10:[address] [facility] UNKNOWN 05/14/2021 10:[address] [facility] Specimen from nose (specimen) NASAL STRUCTURE / Unknown 05/14/2021 10:30 AM RIGGING FOREMAN Ludy Coon NP MICROBIOLOGY - GENERAL ORDERA BLES Final Result [facility] [address] [place] [address], * POCT glucose (05/14/2021 6:26 AM RIGGING FOREMAN) [facility] GLUCOSE POC 94 70 - 110 mg/dL 05/14/2021 7:17 AM R[employer]GING FOREMAN [facility] 05/14/2021 6:26 AM RIGGING FOREMAN us Ludy Martinez Shaggy VOLUNTEER FIREFIGHTER POCT ORDERABLES - DEVICE Lisa l Result Performing Organization Address [facility]/ZIP Co de Phone Number [facility] [address] [place] [address], [place] [phone] * (ABNORMAL) POCT glucose (05/13/2021 8:27 PM RIGGING FOREMAN) GLUCOSE POC 124(H) 70 - 110 mg/dL 05/13/2021 9:07 PM RIGGING FOREMAN [facility] 05/13/2021 8:27 PM RIGGING FOREMAN Ludy L Shaggy MCKEON POCT ORDERABLES - DEVICE Lisa l Result Performing Organization Address [facility] Co de Phone Number [facility] [address] [place] [address], [place] [phone] * POCT glucose (05/13/2021 4:12 PM RIGGING FOREMAN) GLUCOSE POC 85 70 - 110 mg/dL 05/13/2021 4:17 PM RIGGING FOREMAN [facility] 05/13/2021 4:12 PM RIGGING FOREMAN us Ludy Martinez Shaggy VOLUNTEER FIREFIGHTER POCT ORDERABLES - DEVICE Lisa l Result Performing Organization Address [facility] Co de Phone Number [facility] [address] [place] [address], [place] [phone] * (ABNORMAL) POCT glucose (05/13/2021 11:02 AM RIGGING FOREMAN) GLUCOSE POC 138(H) 70 - 110 mg/dL 05/13/2021 11:17 AM RIGGING FOREMAN [facility] 05/13/2021 11:0 2 AM RIGGING FOREMAN Ludy Coon NP POCT ORDERABLES - DEVICE Lisa martinez Result [facility] [address] [place] [address], [place] [phone] * (ABNORMAL) BASIC METABOLIC PANEL (05/13/2021 5:39 AM RIGGING FOREMAN) [facility] GLUCOSE 109(H) 70 - 99 MG/DL 05/13/2021 6:[address] [facility] BUN 22(H) 7 - 18 MG/DL 05/13/2021 6:[address] [facility] CREATININE S/P/B 0.74 0.55 - 1.02 MG/DL 05/13/2021 6:[address] [facility] SODIUM S/P/B 143 136 - 145 MMOL/L 05/13/2021 6:[address] [facility] POTASSIUM S/P/B 4.1 3.5 - 5.1 MMOL/L 05/13/2021 6:[address] [facility] CHLORIDE S/P/B 105 100 - 108 MMOL/L 05/13/2021 6:[address] [facility] CO2 30.6 21 - 32 MMOL/L 05/13/2021 6:[address] [facility] CALCIUM S/P/B 9.1 8.5 - 10.1 MG/DL 05/13/2021 6:[address] [facility] ANION GAP 7.4 5 - 15 MMOL/L 05/13/2021 6:[address] [facility] BUN CREATININE RATIO 29.7(H) 6 - 26 05/13/2021 6:[address] [facility] EGFR NON-AFR. AMER. 74(L) >90 ML/MIN/1.7 3 M2 05/13/2021 6:[address] [facility] EGFR AFR. AMER. 86(L) >90 ML/MIN/1.7 3 M2 05/13/2021 6:[address] [facility] Comment: NOTE: eGFR is not calculated for patients <18 years of age. This is an estimated GFR (CKD EPI) and should not be used for calculating drug doses. 05/13/2021 5:39 AM RIGGING FOREMAN Ludy Coon NP LABORATORY Final Result [facility] [address] [place] [address], * (ABNORMAL) CBC W/DIFF AUTOMATED (05/13/2021 5:39 AM RIGGING FOREMAN) WBC 5.9 4.4 - 11.0 x10'3/uL 05/13/2021 5:[address] [facility] RBC 4.28(L) 4.50 - 5.10 x10'6/uL 05/13/2021 5:[address] [facility] HGB 12.4 12.3 - 15.3 G/DL 05/13/2021 5:[address] [facility] HCT 38.6 35.9 - 44.6 % 05/13/2021 5:[address] [facility] MCV 90.2 80.0 - 96.0 FL 05/13/2021 5:[address] [facility] MCH 29.0 25.3 - 30.9 PG 05/13/2021 5:[address] [facility] MCHC 32.1 31.0 - 34.1 G/DL 05/13/2021 5:[address] [facility] RDW 14.0 12.4 - 15.1 % 05/13/2021 5:[address] [facility] PLT 201 151 - 353 x10'3/uL 05/13/2021 5:[address] [facility] MPV 9.9 9.6 - 12.0 FL 05/13/2021 5:[address] [facility] RBC MORPHOLOGY NORMAL 05/13/2021 5:[address] [facility] PLT MORPH. NORMAL 05/13/2021 5:[address] [facility] WBC MORPHOLOGY NORMAL 05/13/2021 5:[address] [facility] LYMPHOCYTES % 16.2 15.8 - 45.0 % 05/13/2021 5:[address] [facility] NEUTROPHILS % 74.5(H) 42.1 - 71.9 % 05/13/2021 5:[address] [facility] MONOCYTES % 6.4 5.7 - 12.5 % 05/13/2021 5:[address] [facility] EOSINOPHILS 2.2 0.0 - 5.6 % 05/13/2021 5:[address] [facility] BASOPHILS 0.5 0.0 - 1.3 % 05/13/2021 5:[address] [facility] ABS. NEUTROPHILS 4.43 1.40 - 6.00 x10'3/uL 05/13/2021 5:[address] [facility] IMMATURE GRANS % 0.2 0.0 - 0.5 % 05/13/2021 5:[address] [facility] ABS. LYMPHOCYTES 0.96 0.80 - 4.70 x10'3/uL 05/13/2021 5:[address] [facility] 05/13/2021 5:39 AM RIGGING FOREMAN us Ludy Coon NP LABORATORY Final Result Performing Organization Address City/[facility]/ZIP Co de Phone Number [facility] [id number] [place] [address], [place] [phone] * POCT glucose (05/13/2021 5:37 AM RIGGING FOREMAN) GLUCOSE POC 106 70 - 110 mg/dL 05/13/2021 6:30 AM R[employer]GING FOREMAN [facility] 05/13/2021 5:37 AM RIGGING FOREMAN us Ludy Coon NP POCT ORDERABLES - DEVICE Lisa l Result Performing Organization Address [facility] Co de Phone Number [facility] [address] [place] [address], [place] [phone] * POCT glucose (05/12/2021 4:08 PM RIGGING FOREMAN) GLUCOSE POC 101 70 - 110 mg/dL 05/12/2021 4:31 PM RIGGING FOREMAN [facility] 05/12/2021 4:08 PM RIGGING FOREMAN us Ludy Coon NP POCT ORDERABLES - DEVICE Lisa l Result Performing Organization Address City/[facility]/ZIP Co de Phone Number [facility] [address] [place] [address], [place] [phone] * POCT glucose (05/12/2021 12:10 PM RIGGING FOREMAN) GLUCOSE POC 85 70 - 110 mg/dL 05/12/2021 12:23 PM RIGGING [employer]EMAN [facility] 05/12/2021 12:1 0 PM RIGGING FOREMAN us Ludy Coon NP POCT ORDERABLES - DEVICE Lisa l Result Performing Organization Address [facility] Co de Phone Number [facility] [address] [place] [address], [place] [phone] * USE ECHOCARDIOGRAM (05/12/2021 11:15 AM RIGGING FOREMAN) Anatomical Region Laterality Modality Cardiac Echocardiogram Leia Davenport MD ECHO Final Result * THYROXINE, FREE (FT4) (05/12/2021 9:05 AM RIGGING FOREMAN) [facility] FREE T4 1.12 0.76 - 1.46 NG/DL 05/12/2021 9:44 AM R[employer]GING FOREMAN [facility] 05/12/2021 9:05 AM RIGGING FOREMAN Ludy Coon NP LABORATORY Final Result Performing Organization Address [facility] Co de Phone Number [facility] [address] [place] [address], [place] [phone] * POCT glucose (05/12/2021 7:15 AM RIGGING FOREMAN) [facility] GLUCOSE POC 93 70 - 110 mg/dL 05/12/2021 7:19 AM RIGGING FOREMAN [facility] 05/12/2021 7:15 AM RIGGING FOREMAN Ludy Coon NP POCT ORDERABLES - DEVICE Lisa l Result Performing Organization Address City/[facility]/ZIP Co de Phone Number [facility] [address] [place] [address], [place] [phone] * (ABNORMAL) HEMOGLOBIN, GLYCOSYLATED (05/12/2021 5:57 AM RIGGING FOREMAN) HGB A1C 6.2(H) <5.7 % 05/12/2021 2:[address] [facility] Comment: INCREASED RISK OF DIABETES <5.7% ?NON-DIABETES 5.7-6.4% INCREASED RISK FOR FUTURE DIABETES > OR = 6.5 CONSISTENT WITH DIABETES STANDARDS OF MEDICAL CARE IN DIABETES-2010 DIABETES CARE, 33(SUPP 1): S1-S61,2009 ESTIMATED AVG GLUCOSE 131 mg/dL 05/12/2021 2:[address] [facility] 05/12/2021 5:57 AM RIGGING FOREMAN Ludy Coon NP LABORATORY Final Result [facility] [address] [place] [address], [place] [phone] * (ABNORMAL) CBC W/DIFF AUTOMATED (05/12/2021 5:57 AM RIGGING FOREMAN) WBC 5.9 4.4 - 11.0 x10'3/uL 05/12/2021 9:[address] [facility] RBC 4.63 4.50 - 5.10 x10'6/uL 05/12/2021 9:[address] [facility] HGB 13.4 12.3 - 15.3 G/DL 05/12/2021 9:[address] [facility] HCT 42.2 35.9 - 44.6 % 05/12/2021 9:[address] [facility] MCV 91.1 80.0 - 96.0 FL 05/12/2021 9:[address] [facility] MCH 28.9 25.3 - 30.9 PG 05/12/2021 9:[address] [facility] MCHC 31.8 31.0 - 34.1 G/DL 05/12/2021 9:[address] [facility] RDW 14.0 12.4 - 15.1 % 05/12/2021 9:[address] [facility] PLT 196 151 - 353 x10'3/uL 05/12/2021 9:[address] [facility] MPV 9.6 9.6 - 12.0 FL 05/12/2021 9:[address] [facility] RBC MORPHOLOGY NORMAL 05/12/2021 9:[address] [facility] PLT MORPH. NORMAL 05/12/2021 9:[address] [facility] WBC MORPHOLOGY NORMAL 05/12/2021 9:[address] [facility] LYMPHOCYTES % 9.7(L) 15.8 - 45.0 % 05/12/2021 9:[address] [facility] NEUTROPHILS % 83.1(H) 42.1 - 71.9 % 05/12/2021 9:[address] [facility] MONOCYTES % 4.9(L) 5.7 - 12.5 % 05/12/2021 9:[address] [facility] EOSINOPHILS 1.7 0.0 - 5.6 % 05/12/2021 9:[address] [facility] BASOPHILS 0.3 0.0 - 1.3 % 05/12/2021 9:[address] [facility] ABS. NEUTROPHILS 4.90 1.40 - 6.00 x10'3/uL 05/12/2021 9:[address] [facility] IMMATURE GRANS % 0.3 0.0 - 0.5 % 05/12/2021 9:[address] [facility] ABS. LYMPHOCYTES 0.57(L) 0.80 - 4.70 x10'3/uL 05/12/2021 9:[address] [facility] 05/12/2021 5:57 AM RIGGING FOREMAN us Jennifer Grady MD LABORATORY Final Result [facility] [address] [place] [address], [place] [phone] * (ABNORMAL) BASIC METABOLIC PANEL (05/12/2021 5:57 AM RIGGING FOREMAN) Pathologist [facility] GLUCOSE 181(H) 70 - 99 MG/DL 05/12/2021 9:[address] [facility] BUN 18 7 - 18 MG/DL 05/12/2021 9:[address] [facility] CREATININE S/P/B 0.81 0.55 - 1.02 MG/DL 05/12/2021 9:[address] [facility] SODIUM S/P/B 144 136 - 145 MMOL/L 05/12/2021 9:[address] [facility] POTASSIUM S/P/B 4.2 3.5 - 5.1 MMOL/L 05/12/2021 9:[address] [facility] CHLORIDE S/P/B 105 100 - 108 MMOL/L 05/12/2021 9:[address] [facility] CO2 30.1 21 - 32 MMOL/L 05/12/2021 9:[address] [facility] CALCIUM S/P/B 9.4 8.5 - 10.1 MG/DL 05/12/2021 9:[address] [facility] ANION GAP 8.9 5 - 15 MMOL/L 05/12/2021 9:[address] [facility] BUN CREATININE RATIO 22.2 6 - 26 05/12/2021 9:[address] [facility] EGFR NON-AFR. AMER. 66(L) >90 ML/MIN/1.7 3 M2 05/12/2021 9:43 AM R[employer]GING FOREMAN [facility] EGFR AFR. AMER. 77(L) >90 ML/MIN/1.7 3 M2 05/12/2021 9:43 AM RIGGING FOREMAN [facility] Comment: NOTE: eGFR is not calculated for patients <18 years of age. This is an estimated GFR (CKD EPI) and should not be used for calculating drug doses. 05/12/2021 5:57 AM RIGGING FOREMAN us Jennifer Grady MD LABORATORY Final Result Performing Organization Address [facility] Co de Phone Number [facility] [address] [place] [address], [place] [phone] * (ABNORMAL) POCT glucose (05/11/2021 8:43 PM RIGGING FOREMAN) GLUCOSE POC 152(H) 70 - 110 mg/dL 05/12/2021 1:20 AM R[employer]GING FOREMAN [facility] 05/11/2021 8:43 PM RIGGING FOREM[employer] us Jennifer Grady MD POCT ORDERABLES - DEVICE Fin al Result Performing Organization Address [facility] Co de Phone Number [facility] [address] [place] [address], [place] [phone] * (ABNORMAL) POCT glucose (05/11/2021 3:41 PM RIGGING FOREMAN) GLUCOSE POC 121(H) 70 - 110 mg/dL 05/11/2021 4:13 PM R[employer]GING [employer]EMAN [facility] 05/11/2021 3:41 PM RIGGING FOREM[employer] us Jennifer Grady MD POCT ORDERABLES - DEVICE Fin al Result Performing Organization Address [facility]/ZIP Co de Phone Number [facility] [address] [place] [address], [place] [phone] * POCT glucose (05/11/2021 12:19 PM RIGGING FOREMAN) [facility] GLUCOSE POC 86 70 - 110 mg/dL 05/11/2021 4:08 PM R[employer]GING FOREMAN [facility] 05/11/2021 12:1 9 PM RIGGING FOREM[employer] us Jennifer Grady MD POCT ORDERABLES - DEVICE Fin al Result [facility] [address] [place] [address], * LIPID PANEL (05/11/2021 5:58 AM RIGGING FOREMAN) [facility] CHOLESTEROL 119 <200.0 MG/DL 05/11/2021 6:[address] [facility] TRIGLYCERIDES 83 <150 MG/DL 05/11/2021 6:[address] [facility] HDL 58 >40.0 MG/DL 05/11/2021 6:[address] [facility] LDL (CALCULATED) 44 <100 MG/DL 05/11/19 6:[address] [facility] NON HDL CHOLESTEROL 61 <130 MG/DL 05/11 6:[address] [facility] CHOL/HDL RATIO 2.1 0.0 - 4.5 05/11/2021 6:[address] [facility] VLDL CALCULATION 17 5 - 55 MG/DL 05/11/2021 6:[address] [facility] LIPID INTERPRETATION 05/11/2021 6:[address] [facility] Comment: [facility] REPORT RECOMMENDATIONS: [...] ?LDL ? >=160 ?>=130 05/11/2021 5:58 AM RIGGING FOREMAN us Leia Davenport MD LABORATORY Final Result Performing Organization Address City/State/[facility] Co de Phone Number [facility] (H) [facility] [address] [place] [address], * (ABNORMAL) THYROID STIM HORMONE, TSH (05/11/2021 5:58 AM RIGGING FOREMAN) TSH 3.772(H) 0.358 - 3.74 uIU/ML 05/11/2021 8:08 AM RIGGING FOREMAN [facility] Comment: HIGH DOSES OF BIOTIN MAY INTERFERE WITH THIS TEST RESULT. CORRELATION TO CLINICAL HISTORY AND PRESENTATION RECOMMENDED. 05/11/2021 5:58 AM RIGGING FOREMAN Leia Davenport MD LABORATORY Final Result Performing Organization Address [facility] de Phone Number [facility] [address] [place] [address], [place] [phone] * (ABNORMAL) TROPONIN, QUANT (05/11/2021 5:58 AM RIGGING FOREMAN) Pathologist [facility] TROPONIN I HIGH SENSITIVITY 300(HH) <51 ng/L 05/11/2021 7:41 AM RIGGING FOREMAN [facility] Comment: JESUS CALLED CRITICAL RESULTS AT [id number] TO AND READ BACK BY SARAH DUGAN HIGH DOSES OF BIOTIN, TROPONIN-SPECIFIC AUTOANTIBODIES, AND ANTIBODY THERAPY CONTAINING HAMA MAY INTERFERE WITH THIS TEST RESULT. CORRELATION TO CLINICAL HISTORY AND PRESENTATION RECOMMENDED. 05/11/2021 5:58 AM RIGGING FOREMAN Leia Davenport MD LABORATORY Final Result Performing Organization Address [facility] de Phone Number [facility] [address] [place] [address], [place] [phone] * (ABNORMAL) HEMOGLOBIN, GLYCATED (05/11/2021 5:58 AM RIGGING FOREMAN) Pathologist [facility] HGB A1C 5.9(H) <5.7 % 05/11/2021 8:25 AM RIGGING FOREMAN [facility] Comment: INCREASED RISK OF DIABETES <5.7% ?NON-DIABETES 5.7-6.4% INCREASED RISK FOR FUTURE DIABETES > OR = 6.5 CONSISTENT WITH DIABETES STANDARDS OF MEDICAL CARE IN DIABETES-2010 DIABETES CARE, 33(SUPP 1): S1-S61,2010 ESTIMATED AVG GLUCOSE 123 mg/dL 05/11/2021 8:[address] [facility] 05/11/2021 5:58 AM R[employer]GING FOREMAN Leia Davenport MD LABORATORY Final Result Performing Organization Address [facility] Co de Phone Number [facility] [address] [place] [address], [place] [phone] * MAGNESIUM (05/11/2021 5:58 AM RIGGING FOREMAN) MAGNESIUM 2.1 1.8 - 2.4 MG/DL 05/11/2021 8:[address] [facility] 05/11/2021 5:58 AM R[employer]GING FOREMAN us Leia Davenport MD LABORATORY Final Result Performing Organization Address [facility] de Phone Number [facility] [address] [place] [address], [place] [phone] * (ABNORMAL) BASIC METABOLIC PANEL (05/11/2021 5:58 AM [employer]) GLUCOSE 88 70 - 99 MG/DL 05/11/2021 8:[address] [facility] BUN 20(H) 7 - 18 MG/DL 05/11/2021 8:[address] [facility] CREATININE S/P/B 0.64 0.55 - 1.02 MG/DL 05/11/2021 8:[address] [facility] SODIUM S/P/B 146(H) 136 - 145 MMOL/L 05/11/2021 8:[address] [facility] POTASSIUM S/P/B 3.1(L) 3.5 - 5.1 MMOL/L 05/11/2021 8:[address] [facility] CHLORIDE S/P/B 108 100 - 108 MMOL/L 05/11/2021 8:[address] [facility] CO2 26.6 21 - 32 MMOL/L 05/11/2021 8:[address] [facility] CALCIUM S/P/B 8.8 8.5 - 10.1 MG/DL 05/11/2021 8:[address] [facility] ANION GAP 11.4 5 - 15 MMOL/L 05/11/2021 8:[address] [facility] BUN CREATININE RATIO 31.2(H) 6 - 26 05/11/2021 8:[address] [facility] EGFR NON-AFR. AMER. 81(L) >90 ML/MIN/1.7 3 M2 05/11/2021 8:[address] [facility] EGFR AFR. AMER. >90 >90 ML/MIN/1.7 3 M2 05/11/2021 8:[address] [facility] Comment: NOTE: eGFR is not calculated for patients <18 years of age. This is an estimated GFR (CKD EPI) and should not be used for calculating drug doses. 05/11/2021 5:58 AM [employer] us Leia Davenport MD LABORATORY Final Result [facility] [id number] [place] [address], * (ABNORMAL) CBC W/DIFF AUTOMATED (05/11/2021 5:58 AM [employer]) WBC 5.3 4.4 - 11.0 x10'3/uL 05/11/2021 6:[address] [facility] RBC 4.23(L) 4.50 - 5.10 x10'6/uL 05/11/2021 6:[address] [facility] HGB 12.2(L) 12.3 - 15.3 G/DL 05/11/2021 6:[address] [facility] HCT 38.1 35.9 - 44.6 % 05/11/2021 6:[address] [facility] MCV 90.1 80.0 - 96.0 FL 05/11/2021 6:[address] [facility] MCH 28.8 25.3 - 30.9 PG 05/11/2021 6:[address] [facility] MCHC 32.0 31.0 - 34.1 G/DL 05/11/2021 6:[address] [facility] RDW 13.8 12.4 - 15.1 % 05/11/2021 6:[address] [facility] PLT 175 151 - 353 x10'3/uL 05/11/2021 6:[address] [facility] MPV 9.7 9.6 - 12.0 FL 05/11/2021 6:[address] [facility] RBC MORPHOLOGY NORMAL 05/11/2021 6:[address] [facility] PLT MORPH. NORMAL 05/11/2021 6:[address] [facility] WBC MORPHOLOGY NORMAL 05/11/2021 6:[address] [facility] LYMPHOCYTES % 12.6(L) 15.8 - 45.0 % 05/11/2021 6:[address] [facility] NEUTROPHILS % 77.1(H) 42.1 - 71.9 % 05/11/2021 6:[address] [facility] MONOCYTES % 7.4 5.7 - 12.5 % 05/11/2021 6:[address] [facility] EOSINOPHILS 2.1 0.0 - 5.6 % 05/11/2021 6:[address] [facility] BASOPHILS 0.4 0.0 - 1.3 % 05/11/2021 6:[address] [facility] ABS. NEUTROPHILS 4.09 1.40 - 6.00 x10'3/uL 05/11/2021 6:[address] [facility] IMMATURE GRANS % 0.4 0.0 - 0.5 % 05/11/2021 6:[address] [facility] ABS. LYMPHOCYTES 0.67(L) 0.80 - 4.70 x10'3/uL 05/11/2021 6:[address] [facility] 05/11/2021 5:58 AM [employer] us Leia Davenport MD LABORATORY Final Result [facility] [address] [place] [address], * (ABNORMAL) TROPONIN, QUANT (05/10/2021 8:21 PM [employer]) TROPONIN I HIGH SENSITIVITY 351(HH) <51 ng/L 05/10/2021 8:57 PM [employer] [facility] Comment: AD CALLED CRITICAL RESULTS AT 10May2021 TO AND READ BACK BY VINICIO IN ER HIGH DOSES OF BIOTIN, TROPONIN-SPECIFIC AUTOANTIBODIES, AND ANTIBODY THERAPY CONTAINING HAMA MAY INTERFERE WITH THIS TEST RESULT. CORRELATION TO CLINICAL HISTORY AND PRESENTATION RECOMMENDED. 05/10/2021 8:21 PM RIGGING FOREMAN Argelia Martinez MD LABORATORY Final Resul t [facility] [address] [place] [address], [place] [phone] * CULTURE URINE (05/10/2021 6:50 PM RIGGING FOREMAN) SPEC DESCRIPTION URINE CLEAN CATCH 05/10/2021 7:30 PM RIGGING FOREMAN [facility] SPECIAL REQUESTS NO SPECIAL REQUEST 05/10/2021 7:30 PM RIGGING FOREMAN [facility] CULTURE RESULT NO GROWTH 2 DAYS 05/13/2021 7:44 AM RIGGING FOREMAN [facility] URINE SPECIMEN OBTAINED BY CLEAN CATCH PROCEDURE / Unknown 05/10/2021 6:50 PM RIGGING FOREMAN 05/10/2021 7:28 PM RIGGING FOREMAN Jeffery Zhong DO MICROBIOLOGY - GENERAL OR DERABLES Final Result Performing Organization Address City/State/[facility] Co de Phone Number [facility] [address] [place] [address], [place] [phone] [facility] [address] [place] [address], [place] [phone] * (ABNORMAL) URINALYSIS, AUTO, COMPLETE (05/10/2021 6:50 PM RIGGING FOREMAN) COLOR (U) YELLOW 05/10/2021 7:[address] [facility] TRANSPARENCY HAZY 05/10/2021 7:[address] [facility] SPECIFIC GRAVITY (U) 1.020 1.000 - 1.030 05/10/2021 7:[address] [facility] U PH 6.0 5.0 - 9.0 05/10/2021 7:[address] [facility] LEUKOCYTES (U) TRACE(A) NEGATIVE 05/10/2021 7:[address] [facility] NITRITES NEGATIVE NEGATIVE 05/10/2021 7:[address] [facility] PROTEIN (U) NEGATIVE NEGATIVE 05/10/2021 7:[address] [facility] URINE GLUCOSE NEGATIVE NEGATIVE 05/10/2021 7:[address] [facility] KETONES MG/DL (U) TRACE(A) NEGATIVE 05/10/2021 7:[address] [facility] BILIRUBIN (U) NEGATIVE NEGATIVE 05/10/2021 7:[address] [facility] BLOOD (U) NEGATIVE NEGATIVE 05/10/2021 7:[address] [facility] WBC/HPF 0-5 0 - 5 /HPF 05/10/2021 7:[address] [facility] RBC/HPF 0-5 0 - 5 /HPF 05/10/2021 7:[address] [facility] EPI/HPF FEW /HPF 05/10/2021 7:[address] [facility] CULTURE & SENSITIVITY INDICATED? SPECIMEN SETUP FOR CULTURE 05/10/2021 7:[address] [facility] BACTERIA (U) FEW /HPF 05/10/2021 7:[address] [facility] URINE TONEY FEW 05/10/2021 7:[address] [facility] Comment:SMALL BUDDING YEAST URINE, STRAIGHT CATH 05/10/2021 6:50 PM RIGGING FOREMAN us Nubia Allen VOLUNTEER FIREFIGHTER URINE ORDERABLES Final Result [facility] [address] [place] [address], [place] [phone] * THYROXINE, FREE (FT4) (05/10/2021 6:00 PM RIGGING FOREMAN) FREE T4 1.07 0.76 - 1.46 NG/DL 05/10/2021 6:53 PM RIGGING FOREMAN [facility] 05/10/2021 6:00 PM RIGGING FOREMAN Nubia Allen VOLUNTEER FIREFIGHTER LABORATORY Final Result Performing Organization Address [facility]/ZIP Co de Phone Number [facility] [address] [place] [address], [place] [phone] * (ABNORMAL) SALICYLATE (05/10/2021 6:00 PM RIGGING FOREMAN) SALICYLATES 1.3(L) 2.8 - 20.0 MG/DL 05/10/2021 6:17 PM RIGGING FOREMAN [facility] Comment: THERAPEUTIC: ?2.8-20.0 Toxic Level: ?>=30 05/10/2021 6:00 PM RIGGING FOREMAN Jeffery Zhong DO LABORATORY Final Res ult Performing Organization Address [facility] Co de Phone Number [facility] [address] [place] [address], [place] [phone] * (ABNORMAL) MAGNESIUM (05/10/2021 6:00 PM RIGGING FOREMAN) MAGNESIUM 1.7(L) 1.8 - 2.4 MG/DL 05/10/2021 6:29 PM RIGGING FOREMAN [facility] 05/10/2021 6:00 PM RIGGING FOREMAN us Jeffery Zhong DO LABORATORY Final Res ult Performing Organization Address City/[facility]/ZIP Co de Phone Number [facility] [address] [place] [address], [place] [phone] * (ABNORMAL) PRO-BRAIN NATRIURETIC PEPTIDE (05/10/2021 6:00 PM RIGGING FOREMAN) PRO-B TYPE NATRIURETIC PEPTIDE 1,110(H) <450 PG/ML 05/10/2021 6:29 PM RIGGING FOREMAN [facility] Comment: CUT POINTS ESTABLISHED BY [employer] ON NT PROBNP (ICON) STUDY (2006). AGE INDEPENDENT: <300 PG/ML HAS A 99% NEGATIVE PREDICTIVE VALUE FOR EXCLUDING ACUTE CHF <50 YEARS: >450 PG/ML IS CONSISTENT WITH ACUTE CHF 50-75 YEARS: >900 PG/ML IS CONSISTENT WITH ACUTE CHF >75 YEARS: >1800 PG/ML IS CONSISTENT WITH ACUTE CHF IN PATIENTS WITH RENAL INSUFFICIENCY (GFR <60), >1200 PG/ML YIELDS A DIAGNOSTIC SENSITIVITY AND SPECIFICITY OF 89% AND 72% FOR ACUTE CHF. 05/10/2021 6:00 PM RIGGING FOREMAN Jeffery Zhong LABORATORY Final Res ult Performing Organization Address City/[facility]/ZIP Co de Phone Number [facility] [address] [place] [address], [place] [phone] * (ABNORMAL) TROPONIN, QUANT (05/10/2021 6:00 PM RIGGING FOREMAN) TROPONIN I HIGH SENSITIVITY 322(HH) <51 ng/L 05/10/2021 6:33 PM RIGGING FOREMAN [facility] Comment: AD CALLED CRITICAL RESULTS AT [id number] TO AND READ BACK BY JESENIA IN ER HIGH DOSES OF BIOTIN, TROPONIN-SPECIFIC AUTOANTIBODIES, AND ANTIBODY THERAPY CONTAINING HAMA MAY INTERFERE WITH THIS TEST RESULT. CORRELATION TO CLINICAL HISTORY AND PRESENTATION RECOMMENDED. 05/10/2021 6:00 PM RIGGING FOREMAN [facility]ORY Final Res ult Performing Organization Address City/[facility]/ZIP Co de Phone Number [facility] [address] [place] [address], [place] [phone] * (ABNORMAL) TSH W/REFLEX (05/10/2021 6:00 PM RIGGING FOREMAN) TSH 4.155(H) 0.358 - 3.74 uIU/ML 05/10/2021 6:[address] [facility] Comment: HIGH DOSES OF BIOTIN MAY INTERFERE WITH THIS TEST RESULT. CORRELATION TO CLINICAL HISTORY AND PRESENTATION RECOMMENDED. 05/10/2021 6:00 PM RIGGING FOREMAN us Nubia Allen NP LABORATORY Final Result [facility] [address] [place] [address], * (ABNORMAL) COMPREHENSIVE METABOLIC PANEL (05/10/2021 6:00 PM RIGGING FOREMAN) GLUCOSE 107(H) 70 - 99 MG/DL 05/10/2021 6:[address] [facility] BUN 29(H) 7 - 18 MG/DL 05/10/2021 6:[address] [facility] CREATININE S/P/B 0.68 0.55 - 1.02 MG/DL 05/10/2021 6:[address] [facility] SODIUM S/P/B 144 136 - 145 MMOL/L 05/10/2021 6:[address] [facility] POTASSIUM S/P/B 3.4(L) 3.5 - 5.1 MMOL/L 05/10/2021 6:[address] [facility] CHLORIDE S/P/B 107 100 - 108 MMOL/L 05/10/2021 6:[address] [facility] CO2 29.2 21 - 32 MMOL/L 05/10/2021 6:[address] [facility] CALCIUM S/P/B 9.1 8.5 - 10.1 MG/DL 05/10/2021 6:[address] [facility] BILIRUBIN TOTAL S/P/B 0.4 0.2 - 1.2 MG/DL 05/10/2021 6:[address] [facility] TOTAL PROTEIN S/P/B 6.1(L) 6.4 - 8.2 G/DL 05/10/2021 6:[address] [facility] ALBUMIN S/P/B 3.2(L) 3.4 - 5.0 G/DL 05/10/2021 6:[address] [facility] AST 18 15 - 37 U/L 05/10/2021 6:[address] [facility] ALT 25 14 - 55 U/L 05/10/2021 6:[address] [facility] ALKALINE PHOSPHATASE S/P/B 101 50 - 136 U/L 05/10/2021 6:[address] [facility] ANION GAP 7.8 5 - 15 MMOL/L 05/10/2021 6:[address] [facility] BUN CREATININE RATIO 42.6(H) 6 - 26 05/10/2021 6:[address] [facility] A/G RATIO 1.1 1.0 - 2.0 RATIO 05/10/2021 6:[address] [facility] EGFR NON-AFR. AMER. 80(L) >90 ML/MIN/1.7 3 M2 05/10/2021 6:[address] [facility] EGFR AFR. AMER. >90 >90 ML/MIN/1.7 3 M2 05/10/2021 6:[address] [facility] Comment: NOTE: eGFR is not calculated for patients <18 years of age. This is an estimated GFR (CKD EPI) and should not be used for calculating drug doses. 05/10/2021 6:00 PM RIGGING FOREMAN us Nubia Allen NP LABORATORY Final Result [facility] [address] [place] [phone], * (ABNORMAL) CBC W/DIFF AUTOMATED (05/10/2021 6:00 PM RIGGING FOREMAN) WBC 6.1 4.4 - 11.0 x10'3/uL 05/10/2021 6:[address] [facility] RBC 4.12(L) 4.50 - 5.10 x10'6/uL 05/10/2021 6:[address] [facility] HGB 11.9(L) 12.3 - 15.3 G/DL 05/10/2021 6:[address] [facility] HCT 37.0 35.9 - 44.6 % 05/10/2021 6:[address] [facility] MCV 89.8 80.0 - 96.0 FL 05/10/2021 6:[address] [facility] MCH 28.9 25.3 - 30.9 PG 05/10/2021 6:[address] [facility] MCHC 32.2 31.0 - 34.1 G/DL 05/10/2021 6:[address] [facility] RDW 13.6 12.4 - 15.1 % 05/10/2021 6:[address] [facility] PLT 185 151 - 353 x10'3/uL 05/10/2021 6:[address] [facility] MPV 9.9 9.6 - 12.0 FL 05/10/2021 6:[address] [facility] RBC MORPHOLOGY NORMAL 05/10/2021 6:[address] [facility] PLT MORPH. NORMAL 05/10/2021 6:[address] [facility] WBC MORPHOLOGY NORMAL 05/10/2021 6:[address] [facility] LYMPHOCYTES % 13.8(L) 15.8 - 45.0 % 05/10/2021 6:[address] [facility] NEUTROPHILS % 76.1(H) 42.1 - 71.9 % 05/10/2021 6:[address] [facility] MONOCYTES % 7.9 5.7 - 12.5 % 05/10/2021 6:[address] [facility] EOSINOPHILS 1.6 0.0 - 5.6 % 05/10/2021 6:[address] [facility] BASOPHILS 0.3 0.0 - 1.3 % 05/10/2021 6:[address] [facility] ABS. NEUTROPHILS 4.64 1.40 - 6.00 x10'3/uL 05/10/2021 6:[address] [facility] IMMATURE GRANS % 0.3 0.0 - 0.5 % 05/10/2021 6:[address] [facility] ABS. LYMPHOCYTES 0.84 0.80 - 4.70 x10'3/uL 05/10/2021 6:[address] [facility] 05/10/2021 6:00 PM RIGGING FOREMAN us Nubia Allen NP LABORATORY Final Result [facility] [address] [place] [address], * ECG 12 lead (05/10/2021 5:31 PM RIGGING FOREMAN) 05/10/2021 5:3 1 PM RIGGING FOREMAN Narrative [facility] [place] [facility] - 05/11/2021 8:35 AM RIGGING FOREMAN [facility] ? Test Date: ?2021-05-10 Pat Name: ? AVIVA HC ?Department: ? Room: ? 122 Gender: ? Female ? Certified Court Interpreter: ?? : ?1935 ? Requested By: JEFFERY ZHONG Order Number: [id number] ? Reading MD: ?? Michael Jade ? Measurements Intervals ?[place] ? Rate: ? 62 ? P: ?95 FL: ? 282 ?QRS: ?1 QRSD: ? 138 ?T: ?-2 QT: ? 474 ? QTc: ?482 ? Interpretive Statements ELECTRONIC ATRIAL PACEMAKER INDETERMINATE AXIS INTRAVENTRICULAR CONDUCTION DELAY ?? INFERIOR MYOCARDIAL INFARCTION , PROBABLY OLD Compared to ECG 05/10/2021 15:25:31 Intraventricular conduction delay now present Myocardial infarct finding now present Right bundle-branch block no longer present ING FOREMAN Procedure Note Michael Jade MD - 05/11/2021 [facility] Test Date: 2021-05-10 Pat Name: AVIVA CH Department: Room: 122 Gender: Female Certified Court Interpreter: : 1935 Requested By: JEFFERY ZHONG Order Number: [id number] Reading MD: Michael Jade Measurements Intervals [place] Rate: 62 P: 95 FL: 282 QRS: 1 QRSD: 138 T: -2 QT: 474 QTc: 482 Interpretive Statements ELECTRONIC ATRIAL PACEMAKER INDETERMINATE AXIS INTRAVENTRICULAR CONDUCTION DELAY INFERIOR MYOCARDIAL INFARCTION , PROBABLY OLD Compared to ECG 05/10/2021 15:25:31 Intraventricular conduction delay now present Myocardial infarct finding now present Right bundle-branch block no longer present ING FOREMAN us Jeffery Zhong DO ECG ORDERABLES Final Res ult [facility] * EKG Reading (05/10/2021 5:31 PM RIGGING FOREMAN) Narrative Jeffery Zhong DO - 05/10/2021 5:31 PM RIGGING FOREMAN Jeffery Zhong DO ? 05/10/2021 ??7:10 PM EKG Reading Date/Time: 05/10/2021 5:31 PM Performed by: Jeffery Zhong DO Authorized by: Jeffery Zhong DO Interpreted by ED physician Rhythm: paced Ectopy comments: none Rate: normal BPM: 62 QRS axis: normal Q waves: V1 and V2 Clinical impression: abnormal ECG us Jeffery Zhong DO [place] [facility] Final Result * CT HEAD WO CON (05/10/2021 3:43 PM RIGGING FOREMAN) Anatomical Region Laterality Modality Head Computed Tomogra phy 05/10/2021 4:20 PM RIGGING FOREMAN Impressions 05/10/2021 4:21 PM RIGGING FOREMAN IMPRESSION: 1. No acute intracranial process. 2. Volume loss and small vessel disease. 3. Cerebrovascular atherosclerosis. Ordered By: NUBIA ALLEN Interpreted By: Mark Anthony Zaman, 05/10/2021 4:20 PM Narrative 05/10/2021 4:21 PM RIGGING FOREMAN EXAM: CT HEAD WO CON DATE: 05/10/2021 HISTORY: Head trauma, minor (Age >= 65y) ?? . TECHNIQUE: Multislice sequential. Radiation dose reduction technique was utilized. COMPARISON: 07/30/2019. FINDINGS: There is no evidence of intracranial mass effect, hemorrhage, or acute hydrocephalus. The sulci are prominent and the ventricles are symmetrically dilated indicative of volume loss. The third and fourth ventricles are in the midline. There are no acute brain parenchymal changes or extra-axial fluid collections. Hypodensities in the periventricular white matter are consistent with ischemic small vessel disease. The posterior fossa contents are unremarkable. Cerebrovascular atherosclerosis is noted. The calvarium is intact. The visualized sinuses and mastoid air cells are not opacified. Procedure Note Mina Zaman MD - 05/10/2021 EXAM: CT HEAD WO CON DATE: 05/10/2021 HISTORY: Head trauma, minor (Age >= 65y) . TECHNIQUE: Multislice sequential. Radiation dose reduction technique was utilized. COMPARISON: 07/30/2019. FINDINGS: There is no evidence of intracranial mass effect, hemorrhage, oracute hydrocephalus. The sulci are prominent and the ventricles aresymmetrically dilated indicative of volume loss. The third and fourthventricles are in the midline. There are no acute brain parenchymalchanges or extra-axial fluid collections. Hypodensities in theperiventricular white matter are consistent with ischemic small vesseldisease. The posterior fossa contents are unremarkable. Cerebrovascularatherosclerosis is noted. The calvarium is intact. The visualized sinuses and mastoid air cells arenot opacified. IMPRESSION: 1. No acute intracranial process. 2. Volume loss and small vessel disease. 3. Cerebrovascular atherosclerosis. Ordered By: NUBIA ALLEN Interpreted By: Mark Anthony Zaman, 05/10/2021 4:20 PM Nuiba Allen VOLUNTEER FIREFIGHTER CT Final Result * XR PELVIS 1 OR 2 VIEWS (05/10/2021 3:42 PM RIGGING FOREMAN) Anatomical Region Laterality Modality Pelvis Radiographic Lacy ging 05/10/2021 3:43 PM RIGGING FOREMAN Impressions 05/10/2021 3:43 PM RIGGING FOREMAN IMPRESSION: No fracture or dislocation. Ordered By: NUBIA ALLEN Interpreted By: Mark Anthony Zaman, 05/10/2021 3:43 PM Narrative 05/10/2021 3:43 PM RIGGING FOREMAN EXAM: XR PELVIS 1 OR 2 VIEWS HISTORY: fall ?? . COMPARISON: 01/31/2020. FINDINGS: The pelvic ring is intact. The sacroiliac joints are symmetrical and not widened or displaced. The femoral heads sit in good anatomic alignment with the acetabula. No fracture or dislocation is seen. 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 Procedure Note Mina Zaman MD - 05/10/2021 EXAM: XR PELVIS 1 OR 2 VIEWS HISTORY: fall . COMPARISON: 01/31/2020. FINDINGS: The pelvic ring is intact. The sacroiliac joints are symmetricaland not widened or displaced. The femoral heads sit in good anatomicalignment with the acetabula. No fracture or dislocation is seen. 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 IMPRESSION: No fracture or dislocation. Ordered By: NUBIA ALLEN Interpreted By: Mark Anthony Zaman, 05/10/2021 3:43 PM us Nubia Allen VOLUNTEER FIREFIGHTER GENERAL IMAGING Final Result * XR THOR SPINE 3V (05/10/2021 3:42 PM RIGGING FOREMAN) Anatomical Region Laterality Modality Spine Radiographic Lacy ging 05/10/2021 3:44 PM RIGGING FOREMAN Impressions 05/10/2021 3:45 PM RIGGING FOREMAN IMPRESSION: No fracture or subluxation. Ordered By: NUBIA ALLEN Interpreted By: Mark Anthony Zaman, 05/10/2021 3:44 PM Narrative 05/10/2021 3:45 PM RIGGING FOREMAN EXAM: XR THOR SPINE 3V DATE: 05/10/2021 HISTORY: pain ?? . COMPARISON: None. FINDINGS: Bony alignment is maintained and shows no subluxation. No anterior wedge compression deformities or fractures are evident. Vertebral body heights and intervertebral disc spaces are maintained. Procedure Note Mina Zaman MD - 05/10/2021 EXAM: XR THOR SPINE 3V DATE: 05/10/2021 HISTORY: pain . COMPARISON: None. FINDINGS: Bony alignment is maintained and shows no subluxation. Noanterior wedge compression deformities or fractures are evident. Vertebralbody heights and intervertebral disc spaces are maintained. IMPRESSION: No fracture or subluxation. Ordered By: NUBIA ALLEN Interpreted By: Mark Anthony Zaman, 05/10/2021 3:44 PM us Nubia Allen VOLUNTEER FIREFIGHTER GENERAL IMAGING Final Result * XR CHEST PORTABLE (05/10/2021 3:42 PM RIGGING FOREMAN) Anatomical Region Laterality Modality Chest Radiographic Lacy ging 05/10/2021 3:43 PM RIGGING FOREMAN Impressions 05/10/2021 3:44 PM RIGGING FOREMAN IMPRESSION: 1. Chronic interstitial infiltrates in the upper lobes. Ordered By: NUBIA ALLEN Interpreted By: Mark Anthony Zaman, 05/10/2021 3:43 PM Narrative 05/10/2021 3:44 PM RIGGING FOREMAN EXAM: XR CHEST PORTABLE AT 1531 HOURS DATE: 05/10/2021 HISTORY: cough ? COMPARISON: 08/11/2019 FINDINGS: Since the prior exam a multilead electronic cardiac device with leads through the right subclavian route has been placed. The right hemidiaphragm remains elevated. There are chronic interstitial infiltrates in the right upper lobe. No pneumothorax or pleural effusion is seen. The heart appears normal in size. Procedure Note Mina Zaman MD - 05/10/2021 EXAM: XR CHEST PORTABLE AT 1531 HOURS DATE: 05/10/2021 HISTORY: cough COMPARISON: 08/11/2019 FINDINGS: Since the prior exam a multilead electronic cardiac device withleads through the right subclavian route has been placed. The righthemidiaphragm remains elevated. There are chronic interstitial infiltratesin the right upper lobe. No pneumothorax or pleural effusion is seen. Theheart appears normal in size. IMPRESSION: 1. Chronic interstitial infiltrates in the upper lobes. Ordered By: NUBIA ALLEN Interpreted By: Mark Anthony Zaman, 05/10/2021 3:43 PM us Nubia Allen VOLUNTEER FIREFIGHTER GENERAL IMAGING Final Result * ECG 12 lead (05/10/2021 3:25 PM RIGGING FOREMAN) 05/10/2021 3:25 PM RIGGING FOREMAN Narrative [facility] RAD - 05/11/2021 8:34 AM RIGGING FOREMAN ?[facility] ? Test Date: ?2021-05-10 Pat Name: ? AVIVA CH ?Department: ? Room: ? 122 Gender: ? Female ? Certified Court Interpreter: ?? : ?1935 ? Requested By: NUBIA ALLEN Order Number: [id number] ? Reading MD: ?? Michael Jade ? Measurements Intervals ?[place] ? Rate: ? 66 ? P: ?78 FL: ? 252 ?QRS: ?9 QRSD: ? 139 ?T: ?41 QT: ? 448 ? QTc: ?469 ? Interpretive Statements ELECTRONIC ATRIAL PACEMAKER INDETERMINATE AXIS RIGHT BUNDLE BRANCH BLOCK ?? Compared to ECG 02/15/2020 14:41:45 Indeterminate axis now present ING FOREMAN Procedure Note Michael Jade MD - 05/11/2021 [facility] Test Date: 2021-05-10 Pat Name: AVIVA CH Department: Room: 122 Gender: Female Certified Court Interpreter: : 1935 Requested By: NUBIA ALLEN Order Number: [id number] Reading MD: Michael Jade Measurements Intervals [place] Rate: 66 P: 78 FL: 252 QRS: 9 QRSD: 139 T: 41 QT: 448 QTc: 469 Interpretive Statements ELECTRONIC ATRIAL PACEMAKER INDETERMINATE AXIS RIGHT BUNDLE BRANCH BLOCK Compared to ECG 02/15/2020 14:41:45 Indeterminate axis now present ING FOREMAN us Nubia Allen VOLUNTEER FIREFIGHTER ECG ORDERABLES Final Result [facility] * EKG Reading (05/10/2021 3:25 PM RIGGING FOREMAN) Jeffery Thompson DO - 05/10/2021 3:25 PM RIGGING FOREMAN Jeffery Zhong DO ? 05/10/2021 ??7:10 PM EKG Reading Date/Time: 05/10/2021 3:25 PM Performed by: Jeffery Zhong DO Authorized by: Jeffery Zhong DO Interpreted by ED physician Rhythm: paced Ectopy comments: none Rate: normal BPM: 66 QRS axis: normal Conduction: non-specific intraventricular conduction delay Q waves: III, aVF and V1 Clinical impression: abnormal ECG Jeffery Zhong DO [place] [facility] Final Result documented in this encounter Visit Diagnoses Diagnosis NSTEMI (non-ST elevated myocardial infarction) ([facility])- Primary Acute myocardial infarction, subendocardial infarction, episode of care unspecified Weakness Other malaise and fatigue documented in this encounter Admitting Diagnoses Diagnosis NSTEMI (non-ST elevated myocardial infarction) ([facility]) Acute myocardial infarction, subendocardial infarction, episode of care unspecified documented in this encounter Administered Medications Inactive Administered Medications - up to 3 most recent administrations Medication Order MAR Action Action Date Dose Rate Site acetaminophen (TYLENOL) tablet 1,000 mg 1,000 mg, Oral, Once, 1 dose, On 05/10/21 at 1515, Maximum dose of acetaminophen is 4000 mg from all sources in 24 hours. Given 05/10/2021 4:25 PM RIGGING FOREMAN 1,000 mg amLODIPine (NORVASC) tablet 5 mg 5 mg, Oral, Daily, First dose on 05/12/21 at 0900, Until Discontinued Given 05/14/2021 9:05 AM RIGGING FOREMAN 5 mg Given 05/13/2021 8:54 AM RIGGING FOREMAN 5 mg Given 05/12/2021 10:58 AM RIGGING FOREMAN 5 mg aspirin EC (ECOTRIN) tablet 81 mg 81 mg, Oral, Daily, First dose on 05/11/21 at 0900, Until Discontinued, Do not break, chew, or crush. Given 05/14/2021 9:04 AM RIGGING FOREMAN 81 mg Given 05/13/2021 8:54 AM RIGGING FOREMAN 81 mg Given 05/12/2021 11:00 AM RIGGING FOREMAN 81 mg docusate sodium (COLACE) capsule 100 mg 100 mg, Oral, 2 times daily, First dose on 05/11/21 at 0145, Until Discontinued Given 05/14/2021 9:04 AM RIGGING FOREMAN 100 m g Given 05/13/2021 8:28 PM RIGGING FOREMAN 100 mg Given 05/13/2021 8:53 AM RIGGING FOREMAN 100 mg donepezil (ARICEPT) tablet 10 mg 10 mg, Oral, Daily, First dose on Wed05/12/21 at 0900, Until Discontinued Given 05/14/2021 9:05 AM RIGGING FOREMAN 10 mg Given 05/13/2021 8:53 AM RIGGING FOREMAN 10 mg Given 05/12/2021 10:58 AM RIGGING FOREMAN 10 mg heparin (porcine) injection 5,000 Units 5,000 Units, Subcutaneous, Every 12 hours scheduled (2 times per day), First dose on Wed05/11/21 at 2215, Until Discontinued Given 05/14/2021 9:05 AM RIGGING FOREMAN 5,000 Units Right Arm Given 05/13/2021 8:29 PM RIGGING FOREMAN 5,000 Units L eft Lower Abdomen Given 05/13/2021 8:54 AM R[employer] 5,000 Units R ight Lower Abdomen insulin lispro (HUMALOG) injection 0-14 Units 0-14 Units, Subcutaneous, 3 times daily before meals, First dose on Wed05/11/21 at 0700, Until Discontinued, Blood Glucose (SENSITIVE Dosing): [Less than 70:? Initiate Hypoglycemia Standing Orders] [71-140: 0 units] [141-180: 2 units] [181-220: 4 units] [221-260: 6 units] [261-300: 8 units] [301-350: 10 units] [351-400: 12 units] [Greater than 400: 14 units and Call Physician] Given 05/14/2021 11:36 AM [employer] 6 Units Right Arm insulin lispro (HUMALOG) injection 0-7 Units 0-7 Units, Subcutaneous, Nightly at bedtime, First dose on Wed05/11/21 at 0145, Until Discontinued, Blood Glucose (SENSITIVE Dosing): [Less than 70:? Initiate Hypoglycemia Standing Orders] [71-180: ? 0 units] [181-220:? 2 units] [221-260:? 3 units] [261-300:? 4 units] [301-350:? 5 units] [351-400:? 6 units] [Greater than 400:? 7 units and Call Physician] levothyroxine (SYNTHROID) tablet 50 mcg 50 mcg, Oral, Daily (levothyroxine), First dose on Wed05/12/21 at 0600, Until Discontinued, TAKE 1 TABLET(50 MCG) BY MOUTH EVERY MORNING Avoid iron, calcium, and antacids within 4 hours of administration. Given 05/14/2021 6:27 AM [employer] 50 mcg Given 05/13/2021 7:56 AM [employer] 50 mcg Given 05/12/2021 7:13 AM [employer] 50 mcg lisinopril (PRINIVIL) tablet 20 mg 20 mg, Oral, Daily, First dose on Wed05/12/21 at 0900, Until Discontinued Given 05/14/2021 9:04 AM RIGGING FOREMAN 20 mg Given 05/13/2021 8:53 AM RIGGING FOREMAN 20 mg Given 05/12/2021 10:59 AM RIGGING FOREMAN 20 mg magnesium sulfate IVPB 2 g 2 g, Intravenous, at 25 mL/hr, Once, 1 dose, On 05/10/21 at 1945 New Bag 05/10/2021 8:15 PM RIGGING FOREMAN 2 g 25 mL/hr magnesium sulfate IVPB 2 g 2 g, Intravenous, at 25 mL/hr, Once, 1 dose, On 05/11/21 at 0545 New Bag 05/11/2021 6:59 AM RIGGING FOREMAN 2 g 2 5 mL/hr memantine (NAMENDA) tablet 10 mg 10 mg, Oral, 2 times daily, First dose on Wed05/12/21 at 0900, Until Discontinued, Therapeutic interchange for namenda XR 28 mg daily Given 05/14/2021 9:05 AM RIGGING FOREMAN 10 mg Given 05/13/2021 8:29 PM RIGGING FOREMAN 10 mg Given 05/13/2021 8:53 AM RIGGING FOREMAN 10 mg methenamine (HIPREX) tablet 1 g 1 g, Oral, 2 times daily, First dose on 05/11/21 at 2100, Until Discontinued, TAKE 1 TABLET(1 GRAM) BY MOUTH TWICE DAILY WITH MEALS Given 05/14/2021 9:03 A M RIGGING FOREMAN 1 g Given 05/13/2021 4:17 PM RIGGING FOREMAN 1 g pantoprazole EC (PROTONIX) tablet 20 mg 20 mg, Oral, Daily, First dose on 05/12/21 at 0900, Until Discontinued, Do not break, chew, or crush. Given 05/14/2021 9:05 AM RIGGING FOREMAN 20 mg Given 05/13/2021 8:53 AM RIGGING FOREMAN 20 mg Given 05/12/2021 11:00 AM RIGGING FOREMAN 20 mg potassium chloride CR (KLOR-CON M) tablet 40 mEq 40 mEq, Oral, Once, 1 dose, On 05/11/21 at 0545, Do not chew, crush, or suck on tablet. May break in half. May dissolve whole tablet in 120 mL of water and drink immediately. Given 05/11/2021 7:11 AM RIGGING FOREMAN 40 mEq propranolol (INDERAL) tablet 10 mg 10 mg, Oral, 2 times daily, First dose on 05/11/21 at 2100, Until Discontinued Given 05/14/2021 9:03 AM RIGGING FOREMAN 10 mg Given 05/13/2021 8:29 PM RIGGING FOREMAN 10 mg Given 05/13/2021 8:54 AM RIGGING FOREMAN 10 mg risperiDONE (RisperDAL) tablet 1.5 mg 1.5 mg, Oral, Nightly at bedtime, First dose on 05/11/21 at 2100, Until Discontinued, HAZARDOUS MEDICATION Given 05/13/2021 8:28 PM RIGGING FOREMAN 1.5 mg Given 05/12/2021 8:22 PM RIGGING FOREMAN 1.5 mg Given 05/11/2021 8:37 PM RIGGING FOREMAN 1.5 mg rOPINIRole (REQUIP) tablet 2 mg 2 mg, Oral, Nightly at bedtime, First dose on 05/11/21 at 2100, Until Discontinued Given 05/13/2021 8:29 PM RIGGING FOREMAN 2 mg Given 05/12/2021 8:23 PM RIGGING FOREMAN 2 mg Given 05/11/2021 8:37 PM RIGGING FOREMAN 2 mg sertraline (ZOLOFT) tablet 100 mg 100 mg, Oral, Daily, First dose on 05/11/21 at 2030, Until DiscontinuedIndications:Depression Given 05/14/2021 9:05 AM RIGGING FOREMAN 100 mg Given 05/13/2021 8:53 AM RIGGING FOREMAN 100 mg Given 05/12/2021 11:00 AM RIGGING FOREMAN 100 mg sodium chloride 0.9% bolus infusion SOLN 1,000 mL 1,000 mL, Intravenous, Administer over 15 Minutes, Once, 1 dose, On 05/10/21 at 1745 New Bag 05/10/2021 6:00 PM RIGGING FOREMAN 1,000 mLs vitamin C (ASCORBIC ACID) tablet 250 mg 250 mg, Oral, Daily, First dose on 05/11/21 at 2045, Until Discontinued Given 05/14/2021 9:04 AM RIGGING FOREMAN 250 mg Given 05/13/2021 8:54 AM RIGGING FOREMAN 250 mg Given 05/12/2021 10:59 AM RIGGING FOREMAN 250 mg vitamin D3 (cholecalciferol) tablet 2,000 Units 2,000 Units, Oral, Daily, First dose on 05/12/21 at 0900, Until Discontinued, 1000 units = 25 mcgIndications:Nutritional Support Given 05/14/2021 9:04 AM RIGGING FOREMAN 2,000 Uni ts Given 05/13/2021 8:53 AM RIGGING FOREMAN 2,000 Units Given 05/12/2021 10:59 AM RIGGING FOREMAN 2,000 Units documented in this encounter Active and Recently Administered Medications Times are shown in RIGGING FOREMAN. Scheduled Medication Order 05/12/2021 05/13/2021 05/14/2021 amLODIPine (NORVASC) tablet 5 mg 5 mg, Oral, Daily, First dose on Wed05/12/21 at 0900, Until Discontinued 1058 (Given - Provider: Sarah Yang RN) 0854 (Given - Provider: Nadia De La Cruz, Nurse Student) 0905 (Given - Provider: Melissa Suero RN) aspirin EC (ECOTRIN) tablet 81 mg 81 mg, Oral, Daily, First dose on 05/11/21 at 0900, Until Discontinued, Do not break, chew, or crush. 1100 (Given - Provider: Sarah Yang RN) 0854 (Given - Provider: Nadia De La Cruz, Nurse Student) 0904 (Given - Provider: Melissa Suero RN) aspirin tablet 325 mg 325 mg, Oral, Once, 1 dose, On 05/11/21 at 0145, D/c if already given by EMS or in the ED. atorvastatin (LIPITOR) tablet 5 mg 5 mg, Oral, Once, 1 dose, On 05/11/21 at 0145 docusate sodium (COLACE) capsule 100 mg 100 mg, Oral, 2 times daily, First dose on 05/11/21 at 0145, Until Discontinued 1059 (Given - Provider: Sarah Yang RN)2021 (Given - Provider: Noemi Palacios RN) 0853 (Given - Provider: Nadia De La Cruz, Nurse Student)2027 (Given - Provider: Suni Oliveira RN) 0904 (Given - Provider: Melissa Suero RN) donepezil (ARICEPT) tablet 10 mg 10 mg, Oral, Daily, First dose on Wed05/12/21 at 0900, Until Discontinued 105 (Given - Provider: Sarah Yang RN) 08 (Given - Provider: Nadia De La Cruz, Nurse Student) 09 (Given - Provider: Melissa Suero RN) heparin (porcine) injection 5,000 Units 5,000 Units, Subcutaneous, Every 12 hours scheduled (2 times per day), First dose on Wed05/11/21 at 2215, Until Discontinued 105 (Given - Provider: Sarah Yang RN)2022 (Given - Provider: Noemi Palacios, KAILEE) 0854 (Given - Provider: Nadia De La Cruz, Nurse Student)2028 (Given - Provider: Suni Oliveira RN) 904 (Given - Provider: Melissa Suero RN) insulin lispro (HUMALOG) injection 0-14 Units(Linked Group 1) 0-14 Units, Subcutaneous, 3 times daily before meals, First dose on Wed05/11/21 at 0700, Until Discontinued, Blood Glucose (SENSITIVE Dosing): [Less than 70:? Initiate Hypoglycemia Standing Orders] [71-140: 0 units] [141-180: 2 units] [181-220: 4 units] [221-260: 6 units] [261-300: 8 units] [301-350: 10 units] [351-400: 12 units] [Greater than 400: 14 units and Call Physician] 0722 (Not Given - Provider: Sarah Yang RN - Reason: Order parameters not met)1212 (Not Given - Provider: Sarah Yang RN - Reason: Order parameters not met)1624 (Not Given - Provider: Sarah Yang RN - Reason: Order parameters not met) 0541 (Not Given - Provider: Noemi Palacios RN - Reason: Order parameters not met)1223 (Not Given - Provider: Nadia De La Cruz Nurse Student - Reason: Order parameters not met)1617 (Not Given - Provider: Melissa Suero RN - Reason: Order parameters not met) 09 (Not Given - Provider: Melissa Suero RN - Reason: Order parameters not met)1136 (Given - Provider: Melissa Suero RN) insulin lispro (HUMALOG) injection 0-7 Units(Linked Group 1) 0-7 Units, Subcutaneous, Nightly at bedtime, First dose on Wed05/11/21 at 0145, Until Discontinued, Blood Glucose (SENSITIVE Dosing): [Less than 70:? Initiate Hypoglycemia Standing Orders] [71-180: ? 0 units] [181-220:? 2 units] [221-260:? 3 units] [261-300:? 4 units] [301-350:? 5 units] [351-400:? 6 units] [Greater than 400:? 7 units and Call Physician] 2018 (Not Given - Provider: Noemi Palacios RN - Reason: Order parameters not met) 2026 (Not Given - Provider: Suni Oliveira RN - Reason: Order parameters not met) levothyroxine (SYNTHROID) tablet 50 mcg 50 mcg, Oral, Daily (levothyroxine), First dose on Wed05/12/21 at 0600, Until Discontinued, TAKE 1 TABLET(50 MCG) BY MOUTH EVERY MORNING Avoid iron, calcium, and antacids within 4 hours of administration. 0713 (Given - Provider: Aliya Baca RN) 0756 (Given - Provider: Nadia De La Cruz, Nurse Student) 06 (Given - Provider: Suni Oliveira RN) lisinopril (PRINIVIL) tablet 20 mg 20 mg, Oral, Daily, First dose on Wed05/12/21 at 0900, Until Discontinued 105 (Given - Provider: Sarah Yang RN) 08 (Given - Provider: Nadia De La Cruz, Nurse Student) 09 (Given - Provider: Melissa Suero, KAILEE) memantine (NAMENDA) tablet 10 mg 10 mg, Oral, 2 times daily, First dose on Wed05/12/21 at 0900, Until Discontinued, Therapeutic interchange for namenda XR 28 mg daily 105 (Given - Provider: Sarah Yang RN)2021 (Given - Provider: Noemi Palacios RN) 08 (Given - Provider: Nadia De La Cruz, Nurse Student)2028 (Given - Provider: Suni Oliveira RN) 0905 (Given - Provider: Melissa Suero RN) methenamine (HIPREX) tablet 1 g 1 g, Oral, 2 times daily, First dose on 05/11/21 at 2100, Until Discontinued, TAKE 1 TABLET(1 GRAM) BY MOUTH TWICE DAILY WITH MEALS 1023 (Not Given - Provider: Sarah Yang RN - Reason: Other - Comment: Pt family did not bring)2034 (Not Given - Provider: Noemi Palacios RN - Reason: Medication not available) 1024 (Not Given - Provider: Nadia De La Cruz, Nurse Student - Reason: Medication not available)1617 (Given - Provider: Melissa Suero RN) 0903 (Given - Provider: Melissa Suero RN) pantoprazole EC (PROTONIX) tablet 20 mg 20 mg, Oral, Daily, First dose on Wed05/12/21 at 0900, Until Discontinued, Do not break, chew, or crush. 1100 (Given - Provider: Sarah Yang RN) 0853 (Given - Provider: Nadia De La Cruz, Nurse Student) 0905 (Given - Provider: Melissa Suero RN) propranolol (INDERAL) tablet 10 mg 10 mg, Oral, 2 times daily, First dose on 05/11/21 at 2100, Until Discontinued 105 (Given - Provider: Sarah Yang RN)2022 (Given - Provider: Noemi Palacios RN) 0854 (Given - Provider: Nadia De La Cruz, Nurse Student)2028 (Given - Provider: Suni Oliveira RN) 09 (Given - Provider: Melissa Suero RN) risperiDONE (RisperDAL) tablet 1.5 mg 1.5 mg, Oral, Nightly at bedtime, First dose on 05/11/21 at 2100, Until Discontinued, HAZARDOUS MEDICATION 2021 (Given - Provider: Noemi Palacios RN) 2027 (Given - Provider: Suni Oliveira RN) rOPINIRole (REQUIP) tablet 2 mg 2 mg, Oral, Nightly at bedtime, First dose on 05/11/21 at 2100, Until Discontinued 2022 (Given - Provider: Noemi Palacios RN) 2028 (Given - Provider: Suni Oliveira RN) sertraline (ZOLOFT) tablet 100 mg 100 mg, Oral, Daily, First dose on 05/11/21 at 2030, Until Discontinued 1100 (Given - Provider: Sarah Yang RN) 0853 (Given - Provider: Nadia De La Cruz, Nurse Student) 0905 (Given - Provider: Melissa Suero, KAILEE) vitamin C (ASCORBIC ACID) tablet 250 mg 250 mg, Oral, Daily, First dose on 05/11/21 at 2045, Until Discontinued 1059 (Given - Provider: Sarah Yang RN) 0854 (Given - Provider: Nadia De La Cruz, Nurse Student) 0904 (Given - Provider: Melissa Suero, KAILEE) vitamin D3 (cholecalciferol) tablet 2,000 Units 2,000 Units, Oral, Daily, First dose on Wed05/12/21 at 0900, Until Discontinued, 1000 units = 25 mcg 1059 (Given - Provider: Sarah Yang RN) 0853 (Given - Provider: Nadia De La Cruz, Nurse Student) 0904 (Given - Provider: Melissa Suero RN) PRN Medication Order 05/12/2021 05/13/2021 05/14/2021 acetaminophen (TYLENOL) tablet 650 mg 650 mg, Oral, Every 4 hours PRN, Fever, Discomfort, Starting on 05/11/21 at 0123, Until Wed05/14/21 at 1536, Maximum dose of acetaminophen is 4000 mg from all sources in 24 hours. albuterol sulfate HFA 108 (90 Base) MCG/ACT inhaler 2 puff 2 puff, Inhalation, Every 4 hours PRN, Wheezing, Shortness of breath, Starting on 05/11/21 at 0123, Until Wed05/14/21 at 1536 morphine injection 2 mg 2 mg, Intravenous, Every 2 hours PRN, Severe pain (Scale 8 - 10), Starting on 05/11/21 at 0123, Until Wed05/14/21 at 1536 naLOXone (NARCAN) injection 0.4 mg 0.4 mg, Intravenous, As needed, Opioid reversal, Starting on 05/11/21 at 0123, Until Wed05/14/21 at 1536 ondansetron (ZOFRAN) injection 4 mg 4 mg, Intravenous, Every 8 hours PRN, Nausea, Vomiting, Starting on Wed05/11/21 at 0123, Until Wed05/14/21 at 1536, IV push over 2-5 minutes. polyethylene glycol (GLYCOLAX) packet 17 g 17 g, Oral, Daily as needed, Constipation, Starting on 05/11/21 at 0123, Until Wed05/14/21 at 1536, If both senna and polyethylene glycol are ordered, use 1st; if no response by next dosing interval, go to next option. traMADol (ULTRAM) tablet 50 mg 50 mg, Oral, Every 6 hours PRN, Moderate pain (Scale 4 - 7), Starting on 05/11/21 at 0123, Until Wed05/14/21 at 1536 Linked Groups Order Group 1: insulin lispro (HUMALOG) injection 0-14 UnitsJump to med 0-14 Units, Subcutaneous, 3 times daily before meals, First dose on Wed05/11/21 at 0700, Until Discontinued, Blood Glucose (SENSITIVE Dosing): [Less than 70:? Initiate Hypoglycemia Standing Orders] [71-140: 0 units] [141-180: 2 units] [181-220: 4 units] [221-260: 6 units] [261-300: 8 units] [301-350: 10 units] [351-400: 12 units] [Greater than 400: 14 units and Call Physician] And insulin lispro (HUMALOG) injection 0-7 UnitsJump to med 0-7 Units, Subcutaneous, Nightly at bedtime, First dose on Wed05/11/21 at 0145, Until Discontinued, Blood Glucose (SENSITIVE Dosing): [Less than 70:? Initiate Hypoglycemia Standing Orders] [71-180: ? 0 units] [181-220:? 2 units] [221-260:? 3 units] [261-300:? 4 units] [301-350:? 5 units] [351- 400:? 6 units] [Greater than 400:? 7 units and Call Physician] documented in this encounter Additional Health Concerns Infection Onset Date Last Indicated Resolved Time COVID-19 Rule Out 05/14/2021 05/14/2021 05/14/2021 11:02 AM RIGGING FOREMAN Assessment Noted Time PHQ-9 Depression Total Score: 0 04/16/19 1:13 PM RIGGING FOREMAN documented as of this encounter Care Teams Beam Carrier Hauler Pusher Relationship Specialty Start Date End Date Elaina Jade MD [facility]. [address] [address] PCP - General INTERNAL MEDICINE 08/23/18 03/03/23 Joni Mckeon MD [facility]. [address] [address] [place] [employer] Mechanic CARDIOVASCULAR DISEASE 07/04/18 Sandra Johnson, RN [address] [place] [address] Per Diem (Ambulatory) REGISTERED NURSE 05/12/21 06/29/21 documented as of this encounter
--- OUTSIDE RECORDS SUMMARY | 2024-04-05 00:12 | XMS_ITS | Encounter Summary ---
Author Organization [facility] Address [address] [place] [address]. [place] [address] [place] [address] Care Team Providers Care Dramatic Reader Name Role Phone Joni Mckeon MD Unavailable [phone] Noemi Barnard MD Primary Care Provider [phone] Encounter Details Date Type Department Care Team (Latest Contact Info) Description 01/20/2021 Travel Social History Tobacco Use Types Packs/Day [...] have Coronavirus / COVID-19? No / Unsure 01/20/2021 10:29 PM CDT documented as of this encounter [...] CENTER home health General No Malgorzata Brown, STORY TELLER HOME WITH DAUGHTER General No Laura Cheatham, RN documented as of this encounter Visit Diagnoses Not on filedocumented in this encounter Additional Health Concerns Assessment Noted Time PHQ-9 Depression Total Score: 1 12/27/19 21 11:14 AM CDT documented as of this encounter Care Teams Dramatic Reader Relationship Specialty Start Date End Date [facility] [address] [place] [address] PCP - General INTERNAL MEDICINE 08/23/18 03/03/23 Jon[facility] [address] [place] [address] [place] [facility] Planning Director CARDIOVASCULAR DISEASE 07/04/18 documented as of this encounter
--- OUTSIDE RECORDS SUMMARY | 2024-04-05 00:12 | XMS_ITS | Encounter Summary ---
Author Organization [facility] Address [address] [place] [address]. [place] [address] [place] [address] Care Team Providers Care Wrap Turner Name Role Phone Joni Mckeon MD Unavailable [phone] Noemi Jade MD Primary Care Provider [phone] Reason for Visit * Reason Comments Syncope Bradycardia Hypertension Encounter Details Date Type Department Care Team (Late st Contact Info) Description 01/08/2021 10:00 AM CDT [facility] [address] [place] [id number] Joni Mckeon MD [facility] [address] [place] [address] She Lan, LYRIC WRITER-C [facility] [address] [place], [place] [address] Syncope; Bradycardia; Hypertension Social History Tobacco Use Types Packs/Day Years [...] AM CDT documented as of this encounter Last Filed Vital Signs Vital Sign Reading Time Taken Comments Blood Pressure 120/70 01/08/2021 9:23 AM CDT Pulse 73 01/08/2021 9:23 AM CDT Temperature - - Respiratory Rate - - Oxygen Saturation - - Inhaled Oxygen Concentration - - Weight 50.8 kg (112 lb) 01/08/2021 9:23 AM CDT Height 160 cm (5' 3 ) 01/08/2021 9:23 AM CDT Body Mass Index 19.84 01/08/2021 9:23 AM CDT documented in this encounter Functional Status [...] documented in this encounter Progress Notes * She Lan, LYRIC WRITER-C - 01/08/2021 10:00 AM CDT Reason for Visit: Syncope, Bradycardia, and Hypertension History of Present Illness: Ms. Ch is an 85-year-old woman with hx of DM, CAD, symptomatic bradycardia, PPM. Her daughter is with her today. Her dementia has progressed significantly. She lives with her daughter now. That patient has no significant complaints although she is not able to communicate very well due to extreme hearing loss. she did fall in the bathroom the other day. Daughter states this was an unwitnessed fall. Probably mechanical but will check device. No chest pain or sob per daughter. Recommendations and Plan: Syncope and bradycardia. Overall better stable functioning pacemaker. Did have a fall but likely was mechanical with dementia. Will follow up on PPM. ?? Mitral regurgitation: Noted be mild no new symptoms monitor clinically. Daughter is not interested in any further monitoring or invasive assessment given her mental status. ?? Hypertension: Blood pressure is mildly elevated today. Continue monitor at home. I am not can be too aggressive with the patient's blood pressures given her history of lightheadedness dizziness. ?? Data Reviewed Echo 2019 Normal biventricular size and systolic function. Estimated EF of 55-60%. Grade I diastolic dysfunction. Mild mitral and tricuspid regurgitation. Unable to estimate pulmonary pressures. Medications: Current Outpatient Medications: ??? AMLODIPINE 5 MG tablet, TAKE 1 TABLET BY MOUTH DAILY, Disp: 90 tablet, Rfl: 1 ??? aspirin EC 81 MG EC tablet, Take 81 mg by mouth daily. Indications: Anticoagulant Therapy, Disp: , Rfl: ??? BENAZEPRIL 20 MG tablet, TAKE 1 TABLET(20 MG) BY MOUTH DAILY, Disp: 90 tablet, Rfl: 1 ??? Blood Glucose Monitoring Suppl Device, 1 Device by Does not apply route daily. Whatever brand insurance will pay for, Disp: 100 Device, Rfl: 0 ??? Cholecalciferol (VITAMIN D) 2000 units Cap, Take 2,000 Units by mouth daily. Indications: Nutritional Support, Disp: , Rfl: ??? donepezil 10 MG Tab, Take two tabs PO QAM, Disp: , Rfl: ??? Lancets Misc, 1 each by Does not apply route daily. Whatever brand insurance will pay for, Disp: 100 each, Rfl: 0 ??? levothyroxine 50 MCG tablet, TAKE 1 TABLET(50 MCG) BY MOUTH EVERY MORNING, Disp: 90 tablet, Rfl: 1 ??? memantine ER 28 MG 24 hr capsule, Take 28 mg by mouth daily., Disp: , Rfl: ??? methenamine 1 g tablet, TAKE 1 TABLET(1 GRAM) BY MOUTH TWICE DAILY WITH MEALS, Disp: 60 tablet,Rfl: 3 ??? Misc. Devices Misc, 1 strip by Does not apply route daily. Whatever brand insurance will pay for, Disp: 100 strip, Rfl: 0 ??? MYRBETRIQ 50 MG 24 hr tablet, TAKE 1 TABLET(50 MG) BY MOUTH DAILY, Disp: 30 tablet, Rfl: 3 ??? nitrofurantoin 50 MG capsule, Take 1 capsule (50 mg total) by mouth nightly at bedtime., Disp: 30 capsule, Rfl: 2 ??? omeprazole 20 MG capsule, Take 1 capsule (20 mg total) by mouth daily., Disp: 90 capsule, Rfl: 1 ??? pravastatin 40 MG tablet, TAKE 1 TABLET(40 MG) BY MOUTH EVERY NIGHT AT BEDTIME, Disp: 90 tablet, Rfl: 1 ??? propranolol 10 MG tablet, TAKE 1 TABLET BY MOUTH EVERY MORNING AND EVERY NIGHT AT BEDTIME, Disp: , Rfl: ??? risperiDONE 1 MG tablet, Take 1 mg by mouth nightly at bedtime., Disp: , Rfl: ??? rOPINIRole 2 MG tablet, Take 2 mg by mouth nightly at bedtime., Disp: , Rfl: ??? sertraline 100 MG tablet, Take 100 mg by mouth every morning. Indications: Depression, Disp: , Rfl: ??? vitamin C 250 MG tablet, Take 250 mg by mouth daily., Disp: , Rfl: ??? cephALEXin 500 MG capsule, Take 1 capsule (500 mg total) by mouth 2 (two) times daily for 7 days. (Patient not taking: Reported on 04/15/2020), Disp: 14 capsule, Rfl: 0 Allergies Allergen Reactions ??? Septra [Sulfamethoxazole-Trimethoprim] Rash Past Medical History: Diagnosis Date ??? Bladder infection ??? Cancer ([facility]/HCC) Past cancer survivor. breast CA ??? Diabetes (CMS/HCC) ??? GERD (gastroesophageal reflux disease) ??? Hyperlipidemia ??? Hypertension ??? Hypothyroidism ??? Insomnia ??? Sepsis (CMS/HCC) ??? SSS (sick sinus syndrome) (CMS/HCC) ??? Vitamin D deficiency ??? Weight loss Past Surgical History: Procedure Laterality Date ??? ABDOMINAL SURGERY ??? BREAST REDUCTION BILATERAL ??? CHOLECYSTECTOMY ??? COLONOSCOPY ??? HEMORRHOIDECTOMY ??? HYSTERECTOMY ??? INNER EAR SURGERY PROC UNLISTED ??? PACEMAKER 02/15/2020 [facility] ??? PACEMAKER ??? REPAIR ROTATOR CUFF,ACUTE Social History Tobacco Use ??? Smoking status: Never Smoker ??? Smokeless tobacco: Never Used Substance Use Topics ??? Alcohol use: No ??? Drug use: No Family History Problem Relation Name Age of Onset ??? Diabetes Other ??? Breast Cancer Other ??? Other (cardiac disorder) Other ??? Heart Attack Mother ??? No Known Problems Father Family Status Relation Name Status ??? Other (Not Specified) ??? Mother ??? Father Review of Systems Vitals: 01/08/[address] BP: 120/70 Pulse: 73 Weight: 50.8 kg (112 lb) Height: 5' 3 (1.6 m) Body mass index is 19.84 kg/m??. Physical Exam Diagnoses/Impression: No diagnosis found. Referring Provider: No ref. provider found PCP: NOEMI JADE MD documented in this encounter Plan of Treatment Not on file documented as of this encounter Goals Goal Patient Goal Type Associated Problems Recent Progress Patient-Stated? Author Improve Home Support System General No Laura Cheatham RN Return [facility] with [facility] home health General No Malgorzata Brown MSW HOME WITH DAUGHTER General No Laura Cheatham RN documented as of this encounter Visit Diagnoses Diagnosis Hyperlipidemia, unspecified hyperlipidemia type- Primary Primary hypertension Unspecified essential hypertension Atypical chest pain Other chest pain SSS (sick sinus syndrome) (CMS/HCC HHS/HCC) Sinoatrial node dysfunction documented in this encounter Additional Health Concerns Assessment Noted Time PHQ-9 Depression Total Score: 1 12/27/19 11:14 AM CDT documented as of this encounter Care Teams Wrap Turner Relationship Specialty Start Date End Date Noemi Jade MD [facility]. [address] [address] PCP - General INTERNAL MEDICINE 08/23/18 03/03/23 Joni Mckeon MD [facility]. [address] [address] [place] Book[employer] Machine Operator CARDIOVASCULAR DISEASE 07/04/18 documented as of this encounter
--- OUTSIDE RECORDS SUMMARY | 2024-04-05 00:12 | XMS_ITS | Encounter Summary ---
Author Organization [facility] Address [address] [place] [address]. [place] [address] [place] [address] Care Team Providers Care Food Beverage Server Name Role Phone Joni Mckeon MD Unavailable [phone] Noemi Jade MD Primary Care Provider Reason for Visit * Reason Comments Sick Sinus Syndrome yearly [facility] Encounter Details Date Type Department Care Team (Late st Contact Info) Description 03/24/2021 12:15 PM MANAGEMENT CONSULTANT Office Visit [facility], [facility] [address] [place], [place] [id number] Cruzito Mcnulty MD Three [facility]. [facility] [address] [place], [place] [id number] Sick Sinus Syndrome (yearly [facility] ) Social History Tobacco Use Types Packs/Day [...] have Coronavirus / COVID-19? No / Unsure 03/24/2021 11:44 AM MANAGEMENT CONSULTANT documented as of this encounter Last Filed Vital Signs Vital Sign Reading Time Taken Comments Blood Pressure 110/61 03/24/2021 11:54 AM MANAGEMENT CONSULTANT Pulse 71 03/24/2021 11:54 AM MANAGEMENT CONSULTANT Temperature - - Respiratory Rate - - Oxygen Saturation 96% 03/24/2021 11:54 AM MANAGEMENT CONSULTANT Inhaled Oxygen Concentration - - Weight 48.5 kg (107 lb) 03/24/2021 11:54 AM MANAGEMENT CONSULTANT Height 160 cm (5' 3 ) 03/24/2021 11:54 AM MANAGEMENT CONSULTANT Body Mass Index 18.95 03/24/2021 11:54 AM MANAGEMENT CONSULTANT documented in this encounter Functional Status * [...] Date Author Status No 08/16/2019 11:28 AM Laila Mina R N Active documented in this encounter Progress Notes * Cruzito Mcnulty MD - 03/24/2021 12:15 PM CST Reason for Visit: Sick Sinus Syndrome (yearly [facility] ) History of Present Illness: Roxana Ch is a 85-year-old female with a past medical history of symptomatic bradycardia,syncope, hypothyroidism, and dementia here today for scheduled follow up appointment. She recently underwent successful right sided dual chamber pacemaker implant for SSS/symptomatic bradycardia withno complications. Patient has been doing well since her last procedure. No new chest pain, dyspnea,palpitations, irregular heart beats, near-syncope, fatigue, claudication or lower extremity edema. Patient does complain of hiccups. Reports they are daily and are wondering if they are from her device. Patient remains mindful of her diet and tries to remain as active as possible. Patient reports that overall she doing well from an electrophysiology standpoint. Recommendations and Plan: 1. Sick Sinus Syndrome: s/p dual chamber pacemaker 2. History of Syncope: No furhter episodes since device implant 3. Hypertension: Stable Roxana Ch is doing very well from an electrophysiology standpoint. Device interrogation today shows the device is functioning as programmed. Lead Parameters and thresholds remain stable. Noevents since patients last interrogation. Advised her try using Pepcid PRN in addition to her PPI. Would recommend further discussion with her GI doctor as well. Her blood pressure is stable. Encouraged her to remain active and mindful of her diet. It is my pleasure to participate in Roxana Hodgson care. We will follow up with the patient in 1 year or sooner if needed. Data Reviewed Interrogation today showed normally functioning dual chamber pacemaker Vázqeuz device. Full interrogation in [facility]Device clinic. Lead parameters: Battery V 3.07 V Year to CHIRAG 10.5 Sensed (mV) Impedance (Ohms) Threshold (Volts@ms) Atrial 3.2 510 0.5@0.4 RV >12.0 480 0.5@0.4 Pacing mode DDDR 60-115 Pacing AP 65 %, RV 8.1 % Presenting Rhythm ASVS Underlying rhythm SR Atrial Events # 0 Ventricular Events # 0 IEGM s Reviewed IEGM s demonstrate SR Changes Outputs programmed per thresholds. Medications: Current Outpatient Medications: ??? AMLODIPINE 5 MG tablet, TAKE 1 TABLET BY MOUTH DAILY, Disp: 90 tablet, Rfl: 0 ??? aspirin EC 81 MG EC tablet, [...] tabs PO QAM, Disp: , Rfl: ??? LEVOTHYROXINE 50 MCG tablet, TAKE 1 TABLET(50 MCG) BY MOUTH EVERY MORNING, Disp: 90 tablet, Rfl: 0 ??? memantine ER 28 MG 24 [...] daily., Disp: 90 capsule, Rfl: 1 ??? ONETOUCH DELICA PLUS [id number] Misc, USE ONCE A DAY, Disp: 100 each, Rfl: 0 ??? ONETOUCH VERIO test strip, USE TO TEST EVERY DAY, Disp: 100 strip, Rfl: 0 ??? PRAVASTATIN 40 MG tablet, TAKE 1 TABLET(40 MG) BY MOUTH EVERY NIGHT AT BEDTIME, Disp: 90 tablet, Rfl: 0 ??? propranolol 10 MG tablet, TAKE 1 TABLET BY MOUTH EVERY MORNING AND EVERY NIGHT AT BEDTIME, Disp: , Rfl: ??? risperiDONE 0.5 MG tablet, Take 1.5 mg by mouth nightly at bedtime., Disp: , Rfl: ??? rOPINIRole 2 MG tablet, Take 2 mg by mouth nightly at bedtime., Disp: , Rfl: ??? sertraline 100 MG tablet, Take 100 mg by mouth every morning. Indications: Depression, Disp: , Rfl: ??? vitamin C 250 MG tablet, Take 250 mg by mouth daily., Disp: , Rfl: Current Facility-Administered Medications: ??? ciprofloxacin (CIPRO) tablet 500 mg, 500 mg, Oral, Once, Giovany Miller MD Allergies Allergen Reactions ??? Septra [Sulfamethoxazole-Trimethoprim] [...] ??? Mother ??? Father Review of Systems Constitutional: Negative for recent unintentional weight gain, recent unintentional weight loss andnew or significant fatigue. HENT: Negative for new or significant hearing loss. Eyes: Negative for blurred vision and double vision. Respiratory: Negative for cough, new or significant shortness of breath and snoring. Cardiovascular: See HPI. Negative for chest pain, palpitations and leg swelling. Gastrointestinal: Negative for blood in stool and melena. Genitourinary: Negative for dysuria. Musculoskeletal: Negative for myalgias and new or worsening joint stiffness/pain. Skin: Negative for rash. Neurological: Negative for tingling/numbness and focal weakness. Endo/Heme/Allergies: Negative for new or significant bruising/bleeding and polydipsia. Psychiatric/Behavioral: Negative for depression and new or significant memory loss. Vitals: 03/24/21 1154 BP: 110/61 Pulse: 71 Weight: 48.5 kg (107 lb) Height: 5' 3 (1.6 m) Body mass index is 18.95 kg/m??. Cardiac Exam Rate/Rhythm: Normal rate and regular rhythm. PMI: PMI is not displaced. Pulses: Normal pulses. Femoral pulses are 2+ on the right side and 2+ on the left side. Heart Sounds: Normal heart sounds. Normal S1 sounds. Normal S2 sounds. No gallop present. No S3. NoS4. Murmurs: Physical Exam Constitutional: No distress. Healthy Appearance. HENT: Mask in place. Eyes: Pupils equal, round, and reactive to light. Conjunctivae normal. Neck: Neck supple. No JVD. Abdomen: No distension. Pulmonary: Effort normal. Breath sounds normal. Skin: Warm. No rash. No cyanosis. No clubbing. Wound well healed. No erythema, exudate, or induration. Musculoskeletal: No kyphosis. Normal ROM. Neurological: Alert. Oriented x 3. Appropriate mood and affect. Normal motor skills. Normal gait. Comments: Diagnoses/Impression: No diagnosis found. Referring Provider: No ref. provider found PCP: NOEMI JADE MD GEMENT CONSULTANT documented in this encounter Plan of Treatment Not on file documented as of this encounter Goals Goal Patient Goal Type Associated Problems Recent Progress Patient-Stated? Author Improve Home Support System General No Laura Cheatham, RN Return home with [facility] home health General No Malgorzata Brown MSW HOME WITH DAUGHTER General No Laura Cheatham, RN documented as of this encounter Visit Diagnoses Diagnosis SSS (sick sinus syndrome) ([facility])- Primary Sinoatrial node dysfunction Pacemaker Cardiac pacemaker in situ documented in this encounter Additional Health Concerns Assessment Noted Time PHQ-9 Depression Total Score: 0 01/28/20 21 1:14 PM CDT documented as of this encounter Care Teams Food Beverage Server Relationship Specialty Start Date End Date Noemi Jade MD Three [facility]. [address] [address] PCP - General INTERNAL MEDICINE 08/23/18 03/03/23 Joni Mckeon MD Three [facility]. [address] [address] Nicholls Carton Making Machine Operator CARDIOVASCULAR DISEASE 07/04/18 documented as of this encounter
--- OUTSIDE RECORDS SUMMARY | 2024-04-05 00:12 | XMS_ITS | Encounter Summary ---
Author Organization [facility] Address [address] [place] [address]. [place] [address] [place] [address] Care Team Providers Care Planning Advisor Name Role Phone Joni Mckeon MD Unavailable [phone] Noemi Barnard MD Primary Care Provider [phone] Reason for Visit * Reason Comments Remote Device Check routine Toney emote pacemaker check Encounter Details Date Type Department Care Team (Late st Contact Info) Description 05/05/2021 7:40 AM PLASTIC FINISHER Allied Health/Nurse Visit [facility] [facility], [facility] [address] [place] [address] Cruzito Mcnulty MD [facility]. [facility] [address] [place], [place] [id number] Remote Device Check (routine Toney emote pacemaker check) Social History Tobacco Use Types [...] COVID-19? No / Unsure 04/16/2021 12:45 PM PLASTIC FINISHER documented as of this encounter Functional Status [...] Progress Notes * Nolvia Thomason RN - 05/05/2021 7:40 AM CST Routine Toney Pacemaker Remote. Transmission attached. Stable battery voltage, atrial and RV pacing and sensing thresholds. AP %: 63, NEWS WIRE PHOTO OPERATOR %: 12 (0) Recent AT/AF episodes. (0) Ventricular arrhythmias detected. Presenting AP/VS, LANDSCAPE MANAGEMENT TECHNICIAN and atrial tracking. MEDS: ASA and Amlodipine Follow up: [place] 08/04/2021. Cosigned by Cruzito Mcnulty MD at 05/07/2021 12:28 PM PLASTIC FINISHER TIC FINISHER TIC FINISHER documented in this encounter Plan of Treatment Not on file documented as of this encounter Goals Goal Patient Goal Type Associated Problems Recent Progress Patient-Stated? Author Improve Home Support System General No Laura Cheatham, RN Return home with [facility] home health General No Malgorzata Brown, MAIL DISTRIBUTION SCHEME EXAMINER HOME WITH DAUGHTER General No Laura Cheatham RN documented as of this encounter Visit Diagnoses Diagnosis SSS (sick sinus syndrome) ([facility]) Sinoatrial node dysfunction Pacemaker Cardiac pacemaker in situ documented in this encounter Additional Health Concerns Assessment Noted Time PHQ-9 Depression Total Score: 0 04/16/19 22 1:13 PM PLASTIC FINISHER documented as of this encounter Care Teams Planning Advisor Relationship Specialty Start Date End Date Noemi Barnard MD Three [facility]. [address] [address] PCP - General INTERNAL MEDICINE 08/23/18 03/03/23 Joni Mcke[facility] MD [facility] [address] [place] [address] Christopher Hand Almond Blancher CARDIOVASCULAR DISEASE 07/04/18 documented as of this encounter
--- OUTSIDE RECORDS SUMMARY | 2024-04-05 00:12 | XMS_ITS | Encounter Summary ---
Author Organization [facility] Address [address] [place] [address]. [place] [address] [place] [address] Care Team Providers Care Hvac Specialist Name Role Phone Join Mckeon MD Unavailable [phone] Noemi Barnard MD Primary Care Provider [phone] Reason for Visit * Reason Comments Botox Encounter Details Date Type Department Care Team (Late st Contact Info) Description 01/13/2021 2:20 PM CDT Office Visit [facility] [address] [facility] [address] [place] [address] Giovany Miller MD [address] [place] [address] [place] [address] Botox Social History Tobacco Use Types Packs/Day Years [...] Sign Reading Time Taken Comments Blood Pressure 153/68 01/13/2021 2:05 PM CDT Pulse - - Temperature - - Respiratory Rate - - Oxygen Saturation - - Inhaled Oxygen Concentration - - Weight 50.8 kg (112 lb) 01/13/2021 2:05 PM CDT Height 160 cm (5' 3 ) 01/13/2021 2:05 PM CDT Body Mass Index 19.84 01/13/2021 2:05 PM CDT documented in this encounter Functional [...] documented in this encounter Progress Notes * Giovany Miller MD - 01/13/2021 2:20 PM CDT PREPROCEDURE DIAGNOSIS: overactive bladder POSTPROCEDURE DIAGNOSIS:??overactive bladder SURGEON:?? Giovany Miller M.D. ANESTHESIA: local PROCEDURE:?? Cystoscopy with bladder Botox 100Units injection. INDICATIONS:?? Please see previously dictated note.?? Informed consent was obtained prior to the procedure, including but not limited to the risk of bleeding, infection, injury to the surrounding tissue, and potential need for repeat procedure or repeat surgery, the potential for urinary tract infection and urinary retention. OPERATIVE DESCRIPTION: ? Following informed consent, patient was placed supine on the procedure table.?? Cystoscope was placed through the urethra and ??100 units of Botox was then injected.?? A total of 20 sites were injected throughout the bladder.?? No significant bleeding was seen and the cystoscope was removed.?? SPECIMENS:?? None. DRAINS:?? None. COMPLICATIONS:?? None apparent. DISPOSITION:? Post-Botox instructions were given regarding bleeding, the potential for dysuria or difficulty voiding, and a phone number to call with any questions or concerns. documented in this encounter Plan of Treatment Not on file documented as of this encounter Goals Goal Patient Goal Type Associated Problems Recent Progress Patient-Stated? Author Improve Home Support System General No Laura Cheatham, RN Return home with [facility] home health General No Malgorzata Brown DYE OPERATOR HOME WITH DAUGHTER General No Laura Cheatham RN documented as of this encounter Procedures Procedure Name Priority Date/Time Associated Diagnosis Comments URINALYSIS AUTO DIP Routine 01/13/2021 OAB (overactive bladder) documented in this encounter Results * URINALYSIS AUTO DIP (01/13/2021) COLOR (U) YELLOW [facility] [address] (3), [facility] TRANSPARENCY CLEAR [facility] (3), [facility] GLUCOSE (U) NEGATIVE NEGATIVE MG/DL [facility] [address] (3), [facility] BILIRUBIN (U) NEGATIVE NEGATIVE [facility] [address] (3), [facility] KETONES MG/DL (U) NEGATIVE NEGATIVE MG/DL [facility] [address] (3), [facility] SPECIFIC GRAVITY (U) 1.025 1.001 - 1.[address] [facility] (3), [...] OBTAINED BY CLEAN CATCH PROCEDURE / Unknown 01/13/2021 Giovany Miller MD URINE ORDERABLES Final Result [facility] [address] (3), [facility] [address] [place] [address], [place] [phone] documented in this encounter Visit Diagnoses Diagnosis Recurrent UTI- Primary Urinary tract infection, site not specified OAB (overactive bladder) Hypertonicity of bladder documented in this encounter Administered Medications Inactive Administered Medications - up to 3 most recent administrations Medication Order MAR Action Action Date Dose Rate Site onabotulinumtoxinA (BOTOX) injection 100 Units 100 Units, Intramuscular, Once, 1 dose, On Wed01/13/21 at 1515Indications:OAB (overactive bladder) Given 01/13/2021 3:04 PM CDT 100 Units Other documented in this encounter Additional Health Concerns Assessment Noted Time PHQ-9 Depression Total Score: 1 12/27/19 21 11:14 AM CDT documented as of this encounter Care Teams Hvac Specialist Relationship Specialty Start Date End Date Noemi Barnard MD [address] [address] PCP - General INTERNAL MEDICINE 08/23/18 03/03/23 Joni Mckeon MD [address] [address] Christopher Woodworking Machine Operator CARDIOVASCULAR DISEASE 07/04/18 documented as of this encounter
--- OUTSIDE RECORDS SUMMARY | 2024-04-05 00:12 | XMS_ITS | Encounter Summary ---
Author Organization [facility] Address [address] [place] [address]. [place] [address] [place] [address] Care Team Providers Care Donor Support Technician Name Role Phone Joni Mckeon MD Unavailable [phone] Noemi Barnard MD Primary Care Provider [phone] Reason for Visit * Reason Onset Date Comments Remote Device Check 01/09/2021 needs remote pacemaker check due to fall/syncope Encounter Details Date Type Department Care Team (Late st Contact Info) Description 01/09/2021 Telephone [facility] [address] [address] Nolvia Thomason, RN Remote Device Check (needs remote pacemaker check due to fall/syncope) Social History Tobacco Use Types Packs/Day Years [...] Progress Notes * Nolvia Thomason RN - 01/09/2021 12:47 PM CDT I let them know there were no arrhythmias, so no need to call them, thanks Nolvia * INDRA Franco - 01/09/2021 12:21 PM CDT Thanks Did you let the family know or do we need to call murphy * Nolvia Thomason RN - 01/09/2021 10:59 AM CDT I called her SIVAN Adalid(CARINA) and he did a manual remote transmission and there are no events noted. See uploaded transmission. Arion Pacemaker Remote. Transmission attached. Stable battery voltage, atrial and RV pacing and sensing thresholds. AP %: 65, DEALER DEVELOPMENT MANAGER %: 7 (0) Recent AT/AF episodes. (0) Ventricular arrhythmias detected. Presenting AP/VS and SR/SA with 1st degree AVB. MEDS: ASA Will forward to Gita Lan NP * Nolvia Thomason RN - 01/09/2021 10:59 AM CDT ----- Message from She Lan NP-C sent at 01/08/2021 9:52 AM CDT ----- Patient fell in bathroom about a week ago, has device. It was unwitnessed. Please call daughter to walk them through manual transmission and see if any events that day. I think this was a mechanical fall r/t dementia but want to make sure for their peace of mind as well. documented in this encounter Plan of Treatment Not on file documented as of this encounter Goals Goal Patient Goal Type Associated Problems Recent Progress Patient-Stated? Author Improve Home Support System General Laura Akbar, RN Return home with [facility] home health General No Malgorzata Brown, SPEECH AND LANGUAGE ASSISTANT HOME WITH DAUGHTER General No Laura Cheatham RN documented as of this encounter Visit Diagnoses Not on filedocumented in this encounter Additional Health Concerns Assessment Noted Time PHQ-9 Depression Total Score: 1 12/27/19 21 11:14 AM CDT documented as of this encounter Care Teams Donor Support Technician Relationship Specialty Start Date End Date Noemi Barnard MD [facility]. [address] [address] PCP - General INTERNAL MEDICINE 08/23/18 03/03/23 Joni Mckeon MD Three [facility]. [address] [address] Christopher Calenderer CARDIOVASCULAR DISEASE 07/04/18 documented as of this encounter
--- OUTSIDE RECORDS SUMMARY | 2024-04-05 00:12 | XMS_ITS | Encounter Summary ---
Author Organization [facility] Address [address] [place] [address]. [place] [address] [place] [address] Care Team Providers Care Co Founder And Chairman Name Role Phone Joni Mckeon MD Unavailable [phone] Noemi Barnard MD Primary Care Provider [phone] Reason for Visit * Reason Comments Follow Up Other Covid booster (had M oderna) Imm/Inj Flu shot Encounter Details Date Type Department Care Team (Late st Contact Info) Description 01/23/2021 3:00 PM CDT Office Visit [facility] Family & Internal Medicine [facility] [id number] [place] [phone] Kamila [place], [place] [id number] [place] [id number] Follow Up; Other (Covid booster (had Moderna)); Imm/Inj (Flu shot) Social History Tobacco Use Types Packs/Day Years [...] Sign Reading Time Taken Comments Blood Pressure 134/76 01/23/2021 2:46 PM CDT Pulse 75 01/23/2021 2:46 PM CDT Temperature 36.7 ??C (98 ??F) 01/23/2021 2:46 PM CDT Respiratory Rate 18 01/23/2021 2:46 PM CDT Oxygen Saturation 95% 01/23/2021 2:46 PM CDT Inhaled Oxygen Concentration - - Weight 50.3 kg (111 lb) 01/23/2021 2:46 PM CDT Height 160 cm (5' 3 ) 01/23/2021 2:46 PM CDT Body Mass Index 19.66 01/23/2021 2:46 PM CDT documented in this encounter Functional [...] Date Author Status No 08/16/2019 11:28 AM DAVIDT Laila Lujan R N Active documented in this encounter Progress Notes * DEEPALI Macias - 01/23/2021 3:00 PM CDT Images from the original note were not included. _ Reason for Visit: Follow Up, Other (Covid booster (had Moderna)), and Imm/Inj (Flu shot) History of Present Illness: HPI Roxana Ch is a 85-year-old female here with her daughter Krystina for evaluation of diet-controlled diabetes. Her hemoglobin A1c today was 5.6.Her daughter brought in her morning fasting numbers and there have not been any overall 125. I told her that I thought that she was doing great control it by diet. She is due for immunizations today she has had the Moderna. Patient daughter was told that at this time moderna has not recommended a booster. She is due for flu shot and a pneumonia 23. So I told patient that I thought the best to start with those 2 today and in 2 to 4 weeks the Moderna will likely have a booster. Patient has no new complaints today but her daughter is concerned about her advancing mental alertness. Her daughters asked that I fill out a form that the patient is not capable of making some majordecisions and in talking to this patient the last couple visits I agree. Patient's daughter Deboraid bring in copies of her power of rotary drier operator that was created when Roxana had better thought processes. And this is Roxana's wishes. Please see note that patient was given regarding her mother's mental status. ROS: Review of Systems Feeling well. Denies headaches, vision or hearing problems. No recent colds or flus, denies symptoms suggestive of allergies. Denies dysphagia, heartburn or indigestion. No dyspnea or chest pain on exertion. No nausea, abdominal pain, change in bowel habits, black or bloody stools. No urinary tractsymptoms. No muscle or joint aches or pains. No foot or leg edema. No numbness, tingling,or weakness. No anxiety or depressive symptoms, Sleeping well. No significant weight gain or loss. Positive fatigue. Medications: Outpatient Medications Marked as Taking for the 01/23/21 encounter (Office Visit) with DEEPALI Macias Medication Sig Dispense Refill ??? AMLODIPINE 5 MG tablet TAKE 1 TABLET BY MOUTH DAILY 90 tablet 1 ??? aspirin EC 81 MG EC tablet Take 81 mg by mouth daily. Indications: Anticoagulant Therapy ??? BENAZEPRIL 20 MG tablet TAKE 1 TABLET(20 MG) BY MOUTH DAILY 90 tablet 1 ??? Blood Glucose Monitoring Suppl Device 1 Device by Does not apply route daily. Whatever brand insurance will pay for 100 Device 0 ??? Cholecalciferol (VITAMIN D) 2000 units Cap Take 2,000 Units by mouth daily. Indications: Nutritional Support ??? donepezil 10 MG Tab Take two tabs PO QAM ??? Lancets Misc 1 each by Does not apply route daily. Whatever brand insurance will pay for 100 each 0 ??? levothyroxine 50 MCG tablet TAKE 1 TABLET(50 MCG) BY MOUTH EVERY MORNING 90 tablet 1 ??? memantine ER 28 MG 24 hr capsule Take 28 mg by mouth daily. ??? methenamine 1 g tablet TAKE 1 TABLET(1 GRAM) BY MOUTH TWICE DAILY WITH MEALS 60 tablet 3 ??? Misc. Devices Misc 1 strip by Does not apply route daily. Whatever brand insurance will pay [id number] strip 0 ??? MYRBETRIQ 50 MG 24 hr tablet TAKE 1 TABLET(50 MG) BY MOUTH DAILY 30 tablet 3 ??? omeprazole 20 MG capsule Take 1 capsule (20 mg total) by mouth daily. 90 capsule 1 ??? pravastatin 40 MG tablet TAKE 1 TABLET(40 MG) BY MOUTH EVERY NIGHT AT BEDTIME 90 tablet 1 ??? propranolol 10 MG tablet TAKE 1 TABLET BY MOUTH EVERY MORNING AND EVERY NIGHT AT BEDTIME ??? risperiDONE 1 MG tablet Take 1 mg by mouth nightly at bedtime. ??? rOPINIRole 2 MG tablet Take 2 mg by mouth nightly at bedtime. ??? sertraline 100 MG tablet Take 100 mg by mouth every morning. Indications: Depression ??? vitamin C 250 MG tablet Take 250 mg by mouth daily. Current Facility-Administered Medications for the 01/23/21 encounter (Office Visit) with DEEPALI Macias Medication Dose Route Frequency Provider Last Rate Last Admin ??? ciprofloxacin (CIPRO) tablet 500 mg 500 mg Oral Once Giovany Miller MD Allergies Allergen Reactions ??? [...] Other (Not Specified) ??? Mother ??? Father PHQ-2 - Over the last 2 weeks, how often have you been bothered by any of the following problems? 1. Little Interest or pleasure in doing things: 0-Not at All 2. Feeling down,depressed,or hopeless: 0-Not at All PHQ-2 Score - If the patient scores above 3, please move on to questions 3-9: 0 PHQ 9 - Over the last 2 weeks, how often have you been bothered by any of the following problems? Total Score: 0 Fall Risk One or more falls in the last year:: Yes Feels unsteady when walking:: Yes Worried about falling:: No Physical Exam Constitutional: Patient is not oriented to person, place, and time. Patient appears well-developed and well-nourished. Very hard of hearing HENT: Right Ear: External ear normal. Left Ear: External ear normal. Head: Normocephalic. Nose: Nose normal. Mouth/Throat: Oropharynx is clear and moist. Eyes: Pupils are equal, round, and reactive to light. Neck: No JVD present. No thyromegaly present. Cardiovascular: Normal rate, regular rhythm, normal heart sounds and intact distal pulses. No murmur heard. Pulmonary/Chest: No respiratory distress. Patient has no wheezes. Patient has no rales. Patient exhibits no tenderness. Abdominal: Patient exhibits no distension and no mass. There is no tenderness. There is no rebound and no guarding. Musculoskeletal: Normal range of motion. Patient exhibits no edema, tenderness or deformity. Patient's right foot fourth toe there is a jagged toenail counseled daughter on how to clip. Offered podiatry Lymphadenopathy: Patient has no cervical adenopathy. Neurological: Patient is alert and oriented to person, place, and time. Skin: No rash noted. No erythema. Psychiatric: Patient has a normal mood and affect. The behavior is normal. Thought content delayed answers are not always related to the questioning.. Diabetes Management 07/10/2020 Diabetes Type DM 2 / Diet Patient Frequency of Testing 1X/day Foot Exam (visual each visit; comprehensive yearly) Visual inspection;Monofilament;Pulse exam of foot Last Foot Exam? 07/10/2020 Foot Exam Result Normal Last Diabetic Eye Exam? (No Data) Vitals: 01/23/21 1446 Patient Position: Sitting BP Location: Right arm Cuff size: Adult Regular BP: 134/76 Pulse: 75 Body mass index is 19.66 kg/m??. Assessment and Plan Encounter Diagnose(s) ICD-10-CM ICD-9-CM SNOMED CT(R) 1. Type 2 diabetes mellitus with stage 3 chronic kidney disease, without long- term current use of insulin, unspecified whether stage 3a or 3b CKD ([facility]) E11.22 250.40 TYPE 2 DIABETES MELLITUS HEMOGLOBIN, GLYCOSYLATED N18.30 585.3 2. Need for prophylactic vaccination against Streptococcus pneumoniae (pneumococcus) Z23 V03.82 REQUIRES VACCINATION [28761] Pneumovax 23 (Pneumococcal) 3. Need for immunization against influenza Z23 V04.81 NEEDS INFLUENZA IMMUNIZATION [11493] INFLUENZA VIRUS VACCINE, SPLIT VIRUS 0.7 mL (SINGLE DOSE SYRINGE FLUZONE HIGH DOSE) 4. Late onset Alzheimer's dementia without behavioral disturbance ([facility]) G30.1 331.0 PRIMARY DEGENERATIVE DEMENTIA OF THE ALZHEIMER TYPE, SENILE ONSET F02.80 294.10 Patient will continue with her psychiatrist for her evaluation of her dementia. We will continue tocontrol patient's diabetes with diet. She will have the Covid booster when recommended by the CDC at least 2 to 3 weeks from today's date due to the other immunization she received. Orders Placed This Encounter ??? HEMOGLOBIN, GLYCOSYLATED ??? [83667] Pneumovax 23 (Pneumococcal) ??? [13264] INFLUENZA VIRUS VACCINE, SPLIT VIRUS 0.7 mL (SINGLE DOSE SYRINGE FLUZONE HIGH DOSE) I spent over 30 minutes obtaining history and performing exam. Time was also spent either ordering medications, tests, or ordering procedures. Time was also spent documenting the medical record, reviewing results, and communicating test results to the patient. Patient should follow annual wellness exams recommended for age and sex of patient. Items to consider but not limited included yearly annual fasting labs, colonscopy or cologuard when indicated. PSA and prostate for males. Mammogram and female exam for females, Portions of this note were dictated using Pulse speech recognition software. Occasional wrong wordor sound-alike substitutions may have occurred due to the inherent limitations of voice recognition software. Please read the chart carefully and recognize, using context, where the substitutions may have occurred. Kamila Granger PA-C evaluated and Dr Scott Cabello reviewed and agrees with plan. Cosigned by Scott Cabello MD at 01/24/2021 2:56 PM CDT documented in this encounter Plan of Treatment Not on file documented as of this encounter Goals Goal Patient Goal Type Associated Problems Recent Progress Patient-Stated? Author Improve Home Support System General Laura Akbar, RN Return home with [facility] home health General Malgorzata Mchugh MSW HOME WITH DAUGHTER General No Laura Cheatham, RN documented as of this encounter Procedures Procedure Name Priority Date/Time Associated Diagnosis Comments COLLECT.CAPILLARY (FNGR,HEEL,EAR) Routine 01/23/2021 3:53 PM CDT Type 2 diabetes mellitus with stage 3 chronic kidney disease, without long-term current use of insulin, unspecified whether stage 3a or 3b CKD ([facility]) HEMOGLOBIN, GLYCOSYLATED Routine 01/23/2021 Type 2 diabetes mellitus with stage 3 chronic kidney disease, without long-term current use of insulin, unspecified whether stage 3a or 3b CKD ([facility]) documented in this encounter Results * HEMOGLOBIN, GLYCOSYLATED (01/23/2021) HGB A1C 5.6 % MG-[id number], [place] ESTIMATED AVG GLUCOSE 5.6 MG-[id number], [place] 01/23/2021 Kamila [facility] Final Result MG-[id number], [place] [address] [place] [address], documented in this encounter Visit Diagnoses Diagnosis Type 2 diabetes mellitus with stage 3 chronic kidney disease, without long-term current use of insulin, unspecified whether stage 3a or 3b CKD ([facility])- Primary Need for prophylactic vaccination against Streptococcus pneumoniae (pneumococcus) Need for prophylactic vaccination against streptococcus pneumoniae (pneumococcus) Need for immunization against influenza Need for prophylactic vaccination and inoculation against influenza Late onset Alzheimer's dementia without behavioral disturbance ([facility]) documented in this encounter Additional Health Concerns Assessment Noted Time PHQ-9 Depression Total Score: 0 01/24/20 21 2:50 PM CDT documented as of this encounter Care Teams Co Founder And Chairman Relationship Specialty Start Date End Date Noemi Barnard MD [facility]. [address] [address] PCP - General INTERNAL MEDICINE 08/23/18 03/03/23 Joni Mckeon MD [facility] [address] [place] [address] [place] Marine Design Engineer CARDIOVASCULAR DISEASE 07/04/18 documented as of this encounter
--- OUTSIDE RECORDS SUMMARY | 2024-04-05 00:12 | XMS_ITS | Encounter Summary ---
Author Organization [facility] Address [address] [place] [address]. [place] [address] [place] [address] Care Team Providers Care Talent Development Consultant Name Role Phone Joni Mckeon MD Unavailable [phone] Noemi Barnard MD Primary Care Provider [phone] Reason for Visit * Reason Comments Follow Up recurrent UTI Encounter Details Date Type Department Care Team (Late st Contact Info) Description 12/26/2020 10:40 AM CDT Office Visit [facility] Urology Specialty Clinic [facility] [id number] [place] [phone] Clemencia Miller MD [address] [place] [address] [place] [address] Follow Up (recurrent UTI) Social History Tobacco Use Types Packs/Day Years [...] Sign Reading Time Taken Comments Blood Pressure 124/62 12/26/2020 11:11 AM CDT Pulse 57 12/26/2020 11:11 AM CDT Temperature 36.1 ??C (96.9 ??F) 12/26/2020 11:11 AM C DT Respiratory Rate 16 12/26/2020 11:11 AM CDT Oxygen Saturation 96% 12/26/2020 11:11 AM CDT Inhaled Oxygen Concentration - - Weight 51.7 kg (114 lb) 12/26/2020 11:11 AM CDT Height 160 cm (5' 3 ) 12/26/2020 11:11 AM CDT Body Mass Index 20.19 12/26/2020 11:11 AM CDT documented in this encounter Functional [...] Progress Notes * Clemencia Miller MD - 12/26/2020 10:40 AM CDT Roxana Ch is an 85-year-old female, presenting for follow-up for her history of overactive bladder with urge type urinary incontinence as well as recurrent UTI, requiring multiple hospitalizations in the past. She is taking methenamine and Vit C, and has not had a breakthrough UTI. She has been trying to avoid lower urinary tract irritants and stimulants, but continues to void frequently and with urgency. She is taking Myrbetriq 50mg QD, and tolerates it without adverse side effects. She continues to have severe incontinence. Cystoscopy in October 2019 showed a mildly trabeculated bladder, with mild inflammation. She denies dysuria or hematuria, abdominal or pelvic pain. She denies fever chills. She has been working on improving her water intake, as well as double voiding. Bowel function is normal. PMH, PSH, SH, FH, Meds reviewed Blood pressure 124/62, pulse 57, temperature 96.9 ??F (36.1 ??C), temperature source Temporal, resp. rate 16, height 5' 3 (1.6 m), weight 51.7 kg (114 lb), SpO2 96 %. Physical Exam Constitutional: She is oriented to person, place, and time. Thin, elderly female HENT: Head: Normocephalic and atraumatic. Eyes: Conjunctivae and EOM are normal. Pulmonary/Chest: Effort normal. No respiratory distress. Abdominal: Soft. She exhibits no distension. Musculoskeletal: Cervical back: Normal range of motion. Neurological: She is alert and oriented to person, place, and time. No cranial nerve deficit. Psychiatric: She has a normal mood and [...] 07/10/2020 46 14 - 55 U/L Final COLOR (U) YELLOW TRANSPARENCY CLEAR GLUCOSE (U) NEGATIVE MG/DL NEGATIVE BILIRUBIN (U) NEGATIVE NEGATIVE U KETONES NEGATIVE MG/DL NEGATIVE Specific [place] (U) 1.001 - 1.035 1.020 BLOOD NEGATIVE TRACE (Non Hemolyzed, Intact) U PH 5.0 - 9.0 5.0 PROTEIN (U) NEGATIVE mg/dL TRACE UROBILINOGEN 0.2 - 1.0 EU/dL = mg/dL 0.2 NITRITES NEGATIVE MG/DL NEGATIVE LEUKOCYTE ESTERASE NEGATIVE 3+ (LARGE) Imaging: EXAMINATION: Renal and bladder ultrasound EXAM DATE/TIME: 10/20/2019 9:55 AM REASON FOR EXAM: recurrent uti Recurrent UTIs with multiple hospital stays since June. COMPARISON: None TECHNIQUE: Transabdominal ultrasound evaluation of the bilateral kidneys and bladder was performed for analysis of grayscale and color Doppler imaging characteristics. FINDINGS: The right kidney measures 9.4 x 3.9 x 3.7 cm. The left kidney measures 9.6 x 3.9 x 3.9 cm. Bilateral ureteral jets are identified. The bladder contours are within normal limits. No hydronephrosis on either side. Normal flow to both kidneys on Doppler imaging. No abnormal cystic or masslike lesions in either kidney. Visualized portions of liver and spleen have unremarkable grayscale appearance. The IVC is patent. Borderline bowel wall thickening up to 7 mm, however this may be secondary to incomplete distention. ===== ?? IMPRESSION: ===== 1. No acute renal or bladder abnormalities. 2. Questionable bladder wall thickening may be secondary to incomplete distention. Assessment and plan: 1. Recurrent urinary tract infections. She has required hospitalization in the past. She has not had a breakthrough infection on her current regimen. I again reviewed behavioral measures for prevention of UTI. She is to continue methenamine, and vitamin C. 2. Overactive bladder. We discussed avoidance of lower urinary tract irritants and stimulants. She is not responding to Myrbetriq 50 mg. I will plan to schedule her for cystoscopy with Botox injection. She will need to provide a urine specimen for culture 7 to 10 days in advance. CLEMENCIA MILLER MD 12/26/2020 documented in this encounter Plan of Treatment Not on file documented as of this encounter Goals Goal Patient Goal Type Associated Problems Recent Progress Patient-Stated? Author Improve Home Support System General No Laura Cheatham, RN Return home with [facility] home health General No Malgorzata Brown [place], PRODUCT DEVELOPMENT DIRECTOR HOME WITH DAUGHTER General No Laura Cheatham RN documented as of this encounter Procedures Procedure Name Priority Date/Time Associated Diagnosis Comments URINALYSIS AUTO DIP Routine 12/26/2020 Recurrent UTI documented in this encounter Results * (ABNORMAL) CULTURE URINE (01/06/2021 11:38 AM CDT) SPEC DESCRIPTION URINE CLEAN CATCH 01/06/2021 11:39 AM CDT [facility] SPECIAL REQUESTS NO SPECIAL REQUEST 01/06/2021 11:39 AM CDT [facility] CULTURE RESULT 50,000-100, 000 COL/ML ESCHERICHIA COLI (A) 01/07/2021 9:03 PM CDT [facility] URINE SPECIMEN OBTAINED BY CLEAN [...] coli TRIMETH-SULFAMETH. FELIX (VITEK) <=20: Sensitive us Clemencia Miller MD MICROBIOLOGY - GENERAL ORDERAB LES Final Result [facility] [address] [place] [address], [place] [phone] [facility] [address] [place] [address], [place] [phone] * URINALYSIS AUTO DIP (12/26/2020) COLOR (U) YELLOW [id number], [place] TRANSPARENCY CLEAR MG-[address] GL[facility] (U) NEGATIVE NEGATIVE MG/DL MG-[address], [place] BILIRUBIN (U) NEGATIVE NEGATIVE MG-[address] KETONES MG/DL (U) NEGATIVE NEGATIVE MG/DL MG-[id number] SPECIFIC GRAVITY (U) 1.020 1.001 - 1.035 MG-[address] BLOOD (U) TRACE (Non Hemolyzed, Intact) NEGATIVE MG-[address] U PH 5.0 5.0 - 9.0 MG-[address] PROTEIN (U) TRACE NEGATIVE mg/dL MG-[id number], [place] UROBILINOGEN 0.2 0.2 - 1.0 EU/dL = mg/dL MG-[address] NITRITES NEGATIVE NEGATIVE MG/DL MG-[address], [place] LEUKOCYTES (U) 3+ (LARGE) NEGATIVE MG-[address], [place] URINE SPECIMEN OBTAINED BY CLEAN CATCH PROCEDURE / Unknown 12/26/2020 us Clemencia Miller MD URINE ORDERABLES Final Result -[id number], [place] [address] [place] [address], [place] [phone] documented in this encounter Visit Diagnoses Diagnosis Recurrent UTI- Primary Urinary tract infection, site not specified OAB (overactive bladder) Hypertonicity of bladder Urge incontinence documented in this encounter Additional Health Concerns Assessment Noted Time PHQ-9 Depression Total Score: 1 12/27/19 21 11:14 AM CDT documented as of this encounter Care Teams Talent Development Consultant Relationship Specialty Start Date End Date Noemi Barnard MD [facility]. [address] [address] PCP - General INTERNAL MEDICINE 08/23/18 03/03/23 Joni Mckeon MD [facility]. [address] [address] [place] Curriculum Writer CARDIOVASCULAR DISEASE 07/04/18 documented as of this encounter
--- OUTSIDE RECORDS SUMMARY | 2024-04-05 00:12 | XMS_ITS | Encounter Summary ---
Author Organization [facility] Address [address] [place] [address]. [place] [address] [place] [address] Care Team Providers Care Integration Manager Name Role Phone Joni Mckeon MD Unavailable [phone] Noemi Barnard MD Primary Care Provider [phone] Encounter Details Date Type Department Care Team (Latest Contact Info) Description 01/06/2021 Travel Social History Tobacco Use Types Packs/Day [...] No Laura Cheatham, RN Return home with [facility] home health General No Malgorzata Brown, AIDS NURSE HOME WITH DAUGHTER General No Laura Cheatham, RN documented as of this encounter Visit Diagnoses Not on filedocumented in this encounter Additional Health Concerns Assessment Noted Time PHQ-9 Depression Total Score: 1 12/27/19 21 11:14 AM CDT documented as of this encounter Care Teams Integration Manager Relationship Specialty Start Date End Date Noemi [facility]ard [facility] [address] [place] [address] PCP - General INTERNAL MEDICINE 08/23/18 03/03/23 Joni Mckeon [facility] [address] [place] [address] [place] Machine Stripper CARDIOVASCULAR DISEASE 07/04/18 documented as of this encounter
--- OUTSIDE RECORDS SUMMARY | 2024-04-05 00:12 | XMS_ITS | Encounter Summary ---
Author Organization [facility] Address [address] [place] [address]. [place] [address] [place] [address] Care Team Providers Care Reinsurance Claim Analyst Name Role Phone Joni Mckeon MD Unavailable [phone] Noemi Barnard MD Primary Care Provider [phone] Encounter Details Date Type Department Care Team (Latest Contact Info) Description 11/26/2020 Scan HEALTH INFO SRVCS Scanned, Documents Social [...] Assessment Author Status Yes 08/16/2019 11:28 AM DAVIDT Laila Lujan R N Active * Do [...] HOSPITAL home health General No Malgorzata Brown GLASS FRAME FITTER HOME WITH DAUGHTER General No Laura Cheatham, RN documented as of this encounter Visit Diagnoses Not on filedocumented in this encounter Care Teams Reinsurance Claim Analyst Relationship Specialty Start Date End Date Noemi Barnard MD [facility]. [facility] [address] [place] [address] PCP - General INTERNAL MEDICINE 08/23/18 03/03/23 Joni Mckeon MD [facility]. [facility] [address] [place] [address] Christopher Rn Transport CARDIOVASCULAR DISEASE 07/04/18 documented as of this encounter
--- OUTSIDE RECORDS SUMMARY | 2024-04-05 00:12 | XMS_ITS | Encounter Summary ---
Author Organization [facility] Address [address] [place] [address] [place] [address] Care Team Providers Care Care Assistant Name Role Phone Joni Mckeon MD Unavailable [phone] Noemi Barnard MD Primary Care Provider [phone] Encounter Details Date Type Department Care Team (Late st Contact Info) Description 01/08/2021 Orders Only [facility] Medical Group Multispecialty Care - [facility] [address] [place] [address] Giovany Miller MD [address] [place] [address] [place] [address] Social History Tobacco Use Types Packs/Day Years [...] Progress Notes * Belle Guido LPN - 01/08/2021 4:29 PM CDT Spoke with patient's daughter, Krystina, who is aware of new order for Keflex tid x 7 days. Patient's daughter had no further questions or concerns at this time. documented in this encounter Plan of Treatment Not on file documented as of this encounter Goals Goal Patient Goal Type Associated Problems Recent Progress Patient-Stated? Author [facility] General No Laura Cheatham RN Return home with [facility] home health General No Flamm, Malgorzata M, RETREADER HOME WITH DAUGHTER General Reina Laura Cheatham RN documented as of this encounter Visit Diagnoses Diagnosis Acute cystitis without hematuria- Primary Acute cystitis documented in this encounter Additional Health Concerns Assessment Noted Time PHQ-9 Depression Total Score: 1 12/27/19 21 11:14 AM CDT documented as of this encounter Care Teams Care Assistant Relationship Specialty Start Date End Date Noemi Barnard MD Three [facility]. [address] [address] PCP - General INTERNAL MEDICINE 08/23/18 03/03/23 Joni Mckeon MD Three [facility]. [address] [address] Cameron Oil Tester CARDIOVASCULAR DISEASE 07/04/18 documented as of this encounter
--- OUTSIDE RECORDS SUMMARY | 2024-04-05 00:12 | XMS_ITS | Encounter Summary ---
Author Organization [facility] [place] [facility] Address [address] [place] [address]. [place] [address] [place] [address] Care Team Providers Care Carcass Trimmer Name Role Phone Joni Mckeon MD Unavailable [phone] Noemi Barnard MD Primary Care Provider [phone] Reason for Visit * Reason Onset Date Comments Pre-visit Gap Closure 01/01/2021 Encounter Details Date Type Department Care Team (Late st Contact Info) Description 01/01/2021 Telephone [facility] Medical Group Family & Internal [facility] [address] [place] [address] [place] [address] [place] [address] Pre-visit Gap Closure Social History [...] Progress Notes * Yulisa Dickey CMA - 01/01/2021 1:59 PM CDT Contacted patient for pre-visit gap closure. I am calling this patient as a patient advocate for the Virtual [employer] Work Program. My direct extension is [phone]. You can also reach me at: [phone] ([facility]) OR [phone] ([facility]) documented in this encounter Plan of Treatment Not on file documented as of this encounter Goals Goal Patient Goal Type Associated Problems Recent Progress Patient-Stated? Author [facility] General No Laura Cheatham, RN Return home with [facility] home health General No IzzyoneilMalgorzata, ADMINISTRATION DEAN HOME WITH DAUGHTER General No Laura Cheatham, RN documented as of this encounter Visit Diagnoses Not on filedocumented in this encounter Additional Health Concerns Assessment Noted Time PHQ-9 Depression Total Score: 1 12/27/19 21 11:14 AM CDT documented as of this encounter Care Teams Carcass Trimmer Relationship Specialty Start Date End Date Noemi Barnard MD [facility]. [address] [address] PCP - General INTERNAL MEDICINE 08/23/18 03/03/23 Joni Mckeon MD [facility]. [address] [address] Christopher Research Dairy Farm Supervisor CARDIOVASCULAR DISEASE 07/04/18 documented as of this encounter
--- OUTSIDE RECORDS SUMMARY | 2024-04-05 00:12 | XMS_ITS | Encounter Summary ---
Author Organization [facility] Address [address] [place] [address]. [place] [address] [place] [address] Care Team Providers Care Legal Project Manager Name Role Phone Joni Mckeon MD Unavailable [phone] Noemi Barnard MD Primary Care Provider [phone] Encounter Details Date Type Department Care Team (Latest Contact Info) Description 12/19/2020 Scan HEALTH INFO SRVCS Scanned, Documents Social [...] No 08/16/2019 11:28 AM CDT Laila Lujan L, R N Active * Because of a physical, mental, or emotional condition, do you have difficulty doing errands alone such as visiting a doctor's office or shopping? Answer Date of Assessment Author Status Yes 08/16/2019 11:28 AM CDT Laila Lujan L, R N Active documented as of this [...] on filedocumented in this encounter Care Teams Legal Project Manager Relationship Specialty Start Date End Date Noemi Barnard MD [facility]. [facility] [address] [place] [address] PCP - General INTERNAL MEDICINE 08/23/18 03/03/23 Joni Mckeon MD [facility]. [facility] [address] [place] [address] Christopher Base Brander CARDIOVASCULAR DISEASE 07/04/18 documented as of this encounter
--- OUTSIDE RECORDS SUMMARY | 2024-04-05 00:12 | XMS_ITS | Encounter Summary ---
Author Organization [facility] Address [address] [place] [address]. [place] [address] [place] [address] Care Team Providers Care Escalator Service Mechanic Name Role Phone Joni Mckeon MD Unavailable [phone] Noemi Barnard MD Primary Care Provider [phone] Encounter Details Date Type Department Care Team (Latest Contact Info) Description 12/17/2020 Travel Social History Tobacco Use Types Packs/Day [...] No Laura Cheatham, RN Return home with [facility] home health General No Malgorzata Brown, SQL TECH HOME WITH DAUGHTER General No Laura Cheatham, RN documented as of this encounter Visit Diagnoses Not on filedocumented in this encounter Care Teams Escalator Service Mechanic Relationship Specialty Start Date End Date Noemi Barnard MD [facility]. [address] [address] PCP - General INTERNAL MEDICINE 08/23/18 03/03/23 Joni Mckeon MD Three [facility]. [facility] [address] [place] [address] [place] Commission Auditor CARDIOVASCULAR DISEASE 07/04/18 documented as of this encounter
--- OUTSIDE RECORDS SUMMARY | 2024-04-05 00:12 | XMS_ITS | Encounter Summary ---
Author Organization [facility] Address [address] [place] [address]. [place] [address] [place] [address] Care Team Providers Care Criminology Professor Name Role Phone Joni Mckeon MD Unavailable [phone] Noemi Barnard MD Primary Care Provider [phone] Encounter Details Date Type Department Care Team (Latest Contact Info) Description 03/24/2021 Travel Social History Tobacco Use Types Packs/Day [...] COVID-19? No / Unsure 03/24/2021 11:44 AM CREDIT ADMINISTRATION SPECIALIST documented as of this encounter Functional Status [...] CENTER home health General No Malgorzata Brown, RAIL SPECIALIST HOME WITH DAUGHTER General No Laura Cheatham, RN documented as of this encounter Visit Diagnoses Not on filedocumented in this encounter Additional Health Concerns Assessment Noted Time PHQ-9 Depression Total Score: 0 01/28/20 21 1:14 PM CDT documented as of this encounter Care Teams Criminology Professor Relationship Specialty Start Date End Date Noemi Barnard MD [facility] [address] [place] [address] PCP - General INTERNAL MEDICINE 08/23/18 03/03/23 Joni Mckeon MD [facility] [address] [place] [address] Christopher Assistant Administrator CARDIOVASCULAR DISEASE 07/04/18 documented as of this encounter
--- OUTSIDE RECORDS SUMMARY | 2024-04-05 00:13 | XMS_ITS | Encounter Summary ---
Author Organization [facility] Address [address] [place] [address]. [place] [address] [place] [address] Care Team Providers Care Extension Service Agent Name Role Phone Joni Mckeon MD Unavailable [phone] Noemi Barnard MD Primary Care Provider [phone] Encounter Details Date Type Department Care Team (Latest Contact Info) Description 06/11/2020 Travel Social History Tobacco Use Types Packs/Day [...] have Coronavirus / COVID-19? Unable to assess 06/11/2020 10:02 AM PERSONNEL OFFICER documented as of this encounter Functional Status [...] Author Status Yes 08/16/2019 11:28 AM CDT Laial Lujan R N Active * Do you [...] home with [facility] home health General No Malgorzata Brown, BROACHING MACHINE REPAIRER HOME WITH DAUGHTER General No Laura Cheatham, RN documented as of this encounter Visit Diagnoses Not on filedocumented in this encounter Care Teams Extension Service Agent Relationship Specialty Start Date End Date Noemi Barnard MD [facility]. [address] [address] PCP - General INTERNAL MEDICINE 08/23/18 03/03/23 Joni Mckeon MD Three [facility]. [facility] [address] [place] [address] [place] Soft Sugar Operator CARDIOVASCULAR DISEASE 07/04/18 documented as of this encounter
--- OUTSIDE RECORDS SUMMARY | 2024-04-05 00:13 | XMS_ITS | Encounter Summary ---
Author Organization [facility] Address [address] [place] [address]. [place] [address] [place] [address] Care Team Providers Care Head Cleaning Porter Name Role Phone Joni Mckeon MD Unavailable [phone] Noemi Barnard MD Primary Care Provider [phone] Encounter Details Date Type Department Care Team (Late st Contact Info) Description 2020 Orders Only [facility] Medical Group Family & Internal Medicine - [place] [address] [place] [address] Karlos Granger, [place] [address] [place] [address] Social History Tobacco Use Types Packs/Day Years [...] have Coronavirus / COVID-19? No / Unsure 07/30/2020 12:10 PM CDT documented as of this encounter [...] Procedure Name Priority Date/Time Associated Diagnosis Comments MG DIAG W SEAN BILAT DIGI Routine 08/05/2020 2:08 PM CDT Abnormal mammogram documented in this encounter Results * MG DIAG W SEAN BILAT DIGI (08/05/2020 2:08 PM CDT) Anatomical Region Laterality Modality Breast Bilateral Mammography, Rad iographic Imaging 08/05/2020 2:01 PM CDT Narrative 08/05/2020 2:05 PM CDT IMAGING STUDIES: MG CAREYG W SEAN BILAT DIGI ? DATE: 08/05/2020 1:24 PM INDICATION: Additional bilateral images. History of left breast cancer and bilateral breast reduction surgery. COMPARISON: ??11/30/2018, 11/11/2017, 01/11/2017, 01/09/2016, 07/29/2020. FINDINGS: Bilateral ML,, right focal compression CC and MLO and left focal compression MLO views, digital with CAD. ??2-D with 3-D tomosynthesis. Breast compostition: Category C - The breasts are heterogeneously dense, which may obscure small masses. Within the right retroareolar region, no well-defined mass or suspicious microcalcification. Stable architectural distortion possibly postsurgical. No left upper anterior breast mass or suspicious microcalcification. Benign microcalcifications. CONCLUSION: No mammographic evidence of malignancy. BI-RADS Category 2 - benign findings. Routine screening mammography recommended ? MQSA BI-RADS Categories: Category 0 - needs additional imaging evaluation. Category 1 - negative. Category 2 - benign findings. Category 3 - probably benign findings, but short interval follow-up ?is recommended. Category 4 - suspicious abnormality and biopsy should be considered ?though the lesion may well be benign. Category 5 - highly suggestive of malignancy and appropriate action ?should be taken. ?? A) ??A negative report should not delay a biopsy if a dominant or ?clinically suspicious mass is present. B) ??Adenosis and dense breasts may obscure an underlying neoplasm. C) ??Study interpreted with computer aided detection. Referred By: KARLOS GRANGER Interpreted By: Andrew Massey, 08/05/2020 2:01 PM Karlos [facility] Final Result documented in this encounter Visit Diagnoses Diagnosis Abnormal mammogram- Primary Abnormal mammogram, unspecified Abnormal mammogram Abnormal mammogram, unspecified documented in this encounter Care Teams Head Cleaning Porter Relationship Specialty Start Date End Date Noemi Barnard [facility] [address] [address] PCP - General INTERNAL MEDICINE 08/23/18 03/03/23 Joni Mckeon MD [facility] [address] [address] [place] Capacity Manager CARDIOVASCULAR DISEASE 07/04/18 documented as of this encounter
--- OUTSIDE RECORDS SUMMARY | 2024-04-05 00:13 | XMS_ITS | Encounter Summary ---
Author Organization [facility] Address [address] [place] [address]. [place] [address] [place] [address] Care Team Providers Care Event Security Officer Name Role Phone Joni Mckeon MD Unavailable [phone] Noemi Barnard MD Primary Care Provider [phone] Encounter Details Date Type Department Care Team (Latest Contact Info) Description 06/17/2020 Travel Social History Tobacco Use Types Packs/Day [...] have Coronavirus / COVID-19? No / Unsure 06/17/2020 9:10 AM CDT documented as of this encounter [...] No Laura Cheatham, RN Return home with [facility] home health General No Malgorzata Brown, RENAL CASE MANAGER HOME WITH DAUGHTER General No Laura Cheatham, RN documented as of this encounter Visit Diagnoses Not on filedocumented in this encounter Care Teams Event Security Officer Relationship Specialty Start Date End Date Noemi Barnard MD [facility]. [facility] [address] [place] [address] PCP - General INTERNAL MEDICINE 08/23/18 03/03/23 Joni Mckeon MD Three [facility]. [facility] [address] [place] [address] [place] Administrative Law Judge CARDIOVASCULAR DISEASE 07/04/18 documented as of this encounter
--- OUTSIDE RECORDS SUMMARY | 2024-04-05 00:13 | XMS_ITS | Encounter Summary ---
Author Organization [facility] Address [address] [place] [address]. [place] [address] [place] [address] Care Team Providers Care Short Story Writer Name Role Phone Joni Mckeon MD Unavailable [phone] Noemi Barnard MD Primary Care Provider [phone] Encounter Details Date Type Department Care Team (Latest Contact Info) Description 05/02/2020 Travel Social History Tobacco Use Types Packs/Day [...] have Coronavirus / COVID-19? No / Unsure 05/02/2020 3:58 PM QUILLER OPERATOR documented as of this encounter Functional [...] No Laura Cheatham, RN Return home with [facility] home health General No Malgorzata Brown, SETTER MACHINE HOME WITH DAUGHTER General No Luara Cheatham, RN documented as of this encounter Visit Diagnoses Not on filedocumented in this encounter Care Teams Short Story Writer Relationship Specialty Start Date End Date Noemi Barnard MD [facility]. [address] [address] PCP - General INTERNAL MEDICINE 08/23/18 03/03/23 Joni Mckeon MD Three [facility]. [facility] [address] [place] [address] [place] Commercial Engineer CARDIOVASCULAR DISEASE 07/04/18 documented as of this encounter
--- OUTSIDE RECORDS SUMMARY | 2024-04-05 00:13 | XMS_ITS | Encounter Summary ---
Author Organization [facility] Address [address] [place] [address]. [place] [address] [place] [address] Care Team Providers Care Glue Bone Crusher Name Role Phone Joni Mckeon MD Unavailable [phone] Noemi Barnard MD Primary Care Provider [phone] Encounter Details Date Type Department Care Team (Latest Contact Info) Description 07/30/2020 Travel Social History Tobacco Use Types Packs/Day [...] No Laura Cheatham, RN Return home with [facility] home health General No Malgorzata Brown, REVERSER HOME WITH DAUGHTER General No Laura Cheatham, RN documented as of this encounter Visit Diagnoses Not on filedocumented in this encounter Care Teams Glue Bone Crusher Relationship Specialty Start Date End Date Noemi Barnard MD [facility]. [facility] [address] [place] [address] PCP - General INTERNAL MEDICINE 08/23/18 03/03/23 Joni Mckeon MD Three [facility]. [facility] [address] [place] [address] Eunice Lacing Operator CARDIOVASCULAR DISEASE 07/04/18 documented as of this encounter
--- OUTSIDE RECORDS SUMMARY | 2024-04-05 00:13 | XMS_ITS | Encounter Summary ---
Author Organization [facility] Address [address] [place] [address]. [place] [address] [place] [address] Care Team Providers Care Gas Station Operator Name Role Phone Joni Mckeon MD Unavailable Noemi Barnard MD Primary Care Provider [phone] Encounter Details Date Type Department Care Team (Latest Contact Info) Description 07/08/2020 Travel Social History Tobacco Use Types Packs/Day [...] have Coronavirus / COVID-19? No / Unsure 07/08/2020 11:12 AM CDT documented as of this encounter [...] Laura Cheatham, RN Return home with [facility] home health General No Malgorzata Brown, ENVIRONMENTAL SCIENCE TECHNICIAN HOME WITH DAUGHTER General No Laura Cheatham, RN documented as of this encounter Visit Diagnoses Not on filedocumented in this encounter Care Teams Gas Station Operator Relationship Specialty Start Date End Date Noemi Barnard MD [facility]. [facility] [address] [place] [address] PCP - General INTERNAL MEDICINE 08/23/18 03/03/23 Joni Mckeon MD Three [facility]. [facility] [address] [place] [address] [place] Warp Knitter Helper CARDIOVASCULAR DISEASE 07/04/18 documented as of this encounter
--- OUTSIDE RECORDS SUMMARY | 2024-04-05 00:13 | XMS_ITS | Encounter Summary ---
Author Organization [facility] Address [address] [place] [address]. [place] [address] [place] [address] Care Team Providers Care Financial Institution Vice President Name Role Phone Joni Mckeon MD Unavailable [phone] Noemi Jade MD Primary Care Provider [phone] Reason for Visit * Reason Comments Syncope Sick Sinus Syndrome Encounter Details Date Type Department Care Team (Late st Contact Info) Description 07/10/2020 12:45 PM CDT [facility] [address] [place] [address] Joni Mckeon MD [address] [address] Syncope; Sick Sinus Syndrome Social History Tobacco Use Types Packs/Day Years [...] have Coronavirus / COVID-19? No / Unsure 07/10/2020 10:04 AM CDT documented as of this encounter Last Filed Vital Signs Vital Sign Reading Time Taken Comments Blood Pressure 140/60 07/10/2020 12:36 PM CDT Pulse 60 07/10/2020 12:36 PM CDT Temperature - - Respiratory Rate - - Oxygen Saturation - - Inhaled Oxygen Concentration - - Weight 51.3 kg (113 lb) 07/10/2020 12:36 PM CDT Height 160 cm (5' 3 ) 07/10/2020 12:36 PM CDT Body Mass Index 20.02 07/10/2020 12:36 PM CDT documented in this encounter Functional [...] R N Active documented in this encounter Patient Instructions * Patient Instructions* Treasure Mojica - 07/10/2020 12:45 PM CDT Images from the original note were not included. Patient Education Patient Education Syncope (Fainting) Discharge Instructions About this topic Fainting is a sudden, brief loss of consciousness. Your brain needs oxygen to work the right way. It gets oxygen from the blood that flows to the brain. If there is a drop in blood flow to your brainfor a short time, you may faint. Most often, you wake up after a short time. Fainting can happen because of emotional distress or strong feelings like fear or very bad pain. Standing in one place fortoo long or standing up too quickly may cause you to faint. You may also faint because of low bloodsugar or fluid loss. Some people faint when they strain during a bowel movement. Fainting is not usually serious, but you may get hurt if you fall or are driving when it happens. Your doctor will work to find out why you are fainting. It may be an early sign of a more serious problem, like a heart or brain problem. What care is needed at home? ?? Ask your doctor what you need to do when you go home. Make sure you ask questions if you do not understand what the doctor says. This way you will know what you need to do. ?? Move slowly when changing positions. Take extra care when going from sitting to standing or lying to sitting. Sudden movements may cause fainting. ?? Sit on the edge of the bed and take deep breaths before getting out of bed. ?? Move your legs often if you need to sit or software engineer kernel one position for a long time. ?? Sit or lie down right away if you feel faint or dizzy. ?? Position your feet higher than your head when you lie down. This will make the blood flow back to your heart and brain. ?? If you feel faint, do not drive a car. Ask your doctor when it is safe to drive, work, and go back to your normal activities. ?? Avoid staying under the sun for a long time. ?? Ask your doctor how to treat hard stools if you have to strain a lot to have a bowel movement. ?? Make your family and friends aware of your health issue and how they can help. What follow-up care is needed? Your doctor may ask you to make visits to the office to check on your progress. Be sure to keep these visits. Your doctor may order tests like blood test or an ECG to check your heart. Be sure to keep these visits and follow up with your doctor for results. What drugs may be needed? The doctor may order drugs to: ?? Help with dizziness ?? Treat an upset stomach ?? Help with blood pressure ?? Control heart rhythm Will physical activity be limited? Physical activities may be limited. Some strenuous activities may cause fainting. What changes to diet are needed? ?? Drink 6 to 8 glasses of fluids each day. ?? Eat foods high in fiber to avoid hard stools. Whole grain foods and fruits and vegetables have alot of fiber. When do I need to call the doctor? Activate the emergency medical system right away if you have signs of a heart attack or stroke. Call 911 in the [place] or [place]. The sooner treatment begins, the better your chances for recovery. Call for emergency help right away if you have: ?? Signs of heart attack: ? Chest pain ? Trouble breathing ? Fast heartbeat ? Feeling dizzy ?? Signs of a stroke: ? Sudden numbness or weakness of the face, arm, or leg, especially on one side of the body ? Sudden confusion, trouble speaking, or understanding ? Sudden trouble seeing in one or both eyes ? Sudden trouble walking, dizziness, loss of balance, or coordination ? Sudden severe headache Call your doctor if you have: ?? Headache not helped by pain drugs ?? Hit your head after fainting ?? Another fainting event ?? You are not feeling better in 2 to 3 days or you are feeling worse Teach Back: Helping You Understand The Teach Back Method helps you understand the information we are giving you. After you talk with the staff, tell them in your own words what you learned. This helps to make sure the staff has described each thing clearly. It also helps to explain things that may have been confusing. Before going home, make sure you can do these: ?? I can tell you about my condition. ?? I can tell you what I will do to help me stay safe when moving about. ?? I can tell you what I will do if I have numbness or weakness in the face, arms, or legs. Where can I learn more? [employer] https://www.heart.org/en/health-topics/arrhythmia/symptoms-diagnosis--monitoring -of-arrhythmia/syncope-fainting NHS Choices http://www.nhs.uk/Conditions/Fainting/Pages/Introduction.aspx Last Reviewed Date 2019-05-29 Consumer Information Use and Disclaimer This information is not specific medical advice and does not replace information you receive from your health care provider. This is only a brief summary of general information. It does NOT include all information about conditions, illnesses, injuries, tests, procedures, treatments, therapies, discharge instructions or life-style choices that may apply to you. You must talk with your health care provider for complete information about your health and treatment options. This information should not be used to decide whether or not to accept your health care provider???s advice, instructions or recommendations. Only your health care provider has the knowledge and training to provide advice that is right for you. Copyright Copyright ?? 2020 [employer] and its affiliates and/or licensors. All rights reserved. documented in this encounter Progress Notes * Joni Mckeon MD - 07/10/2020 12:45 PM CDT REASON FOR FOLLOWUP: History of syncope, status post permanent pacemaker. HISTORY OF PRESENT ILLNESS: An 84-year-old woman who is well known to me. 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 Patient had placement of permanent pacemaker. Overall she appears to be doing a little bit better. Her dementia appears to be worsening. She denies any chest pain or other significant complaints. IMPRESSION AND RECOMMENDATION: Syncope and bradycardia. Overall better stable functioning pacemaker. I ordered a manual transmission to review She has 1 year follow-up Dr. Mcnulty March 2021. She will see me back in January 2021. Mitral regurgitation: Noted be mild no new symptoms monitor clinically. Hypertension: Blood pressure is mildly elevated today. Continue monitor at home. I am not can be too aggressive with the patient's blood pressures given her history of lightheadedness dizziness. Hyperlipidemia: Plan to repeat lipid panel Comments on Coronary Arteries Left Main: Left main is a moderate-sized vessel which appears to be angiographically normal. LAD: The LAD is a moderate-sized vessel which wraps the apex. In the proximal portion of the LAD there appears to be approximately 40% stenosis. This is a moderate-sized diagonal branch which appearsto be angiographically normal. Circumflex: The circumflex artery is a moderate-sized non-dominant vessel. There is a moderate-sizefirst obtuse marginal that appears to be angiographically normal. Ongoing obtuse marginal appears to be angiographically normal. There is moderate tortuosity of the coronary vessels. RCA: Right coronary artery is a moderate-sized dominant vessel which has minimal luminal irregularities throughout. The PDA is a moderate size vessel which appears to be angiographically normal. Summary Normal biventricular size and systolic function. Estimated [...] DAILY, Disp: 90 tablet, Rfl: 1 ??? Cholecalciferol (VITAMIN D) 2000 units Cap, Take 2,000 Units by mouth daily. Indications: Nutritional Support, Disp: , Rfl: ??? donepezil 10 MG Tab, Take two tabs PO QAM, Disp: , Rfl: ??? levothyroxine 50 MCG tablet, TAKE 1 TABLET(50 MCG) BY MOUTH EVERY MORNING, Disp: 90 tablet, Rfl: 1 ??? memantine ER 28 MG 24 hr capsule, Take 28 mg by mouth daily., Disp: , Rfl: ??? METHENAMINE 1 g tablet, TAKE 1 TABLET(1 GRAM) BY MOUTH TWICE DAILY WITH MEALS, Disp: 60 tablet,Rfl: 3 ??? mirabegron ER (MYRBETRIQ) 50 MG 24 hr tablet, Take 1 tablet (50 mg total) by mouth daily., Disp: 30 tablet, Rfl: 3 ??? nitrofurantoin [...] BEDTIME, Disp: 90 tablet, Rfl: 1 ??? risperiDONE 1 MG tablet, Take 1 mg by mouth nightly at bedtime., Disp: , Rfl: ??? rOPINIRole 1 MG tablet, Take 1 mg by [...] Substance Use Topics ??? Alcohol use: No Frequency: Never ??? Drug use: No Family History Problem [...] of breath and snoring. Cardiovascular: See HPI. Gastrointestinal: Negative for blood in stool and melena. Genitourinary: Negative for dysuria. Musculoskeletal: Negative for myalgias and new or worsening joint stiffness/pain. Skin: Negative for rash. Neurological: Negative for tingling/numbness and focal weakness. Endo/Heme/Allergies: Negative for new or significant bruising/bleeding and polydipsia. Psychiatric/Behavioral: Negative for depression and new or significant memory loss. Filed Vitals: 07/10/20 1236 BP: 140/60 Pulse: 60 Weight: 51.3 kg (113 lb) Height: 5' 3 (1.6 m) Body mass index is 20.02 kg/m??. Physical Exam Constitutional: No distress. HENT: Teeth/gums normal. Eyes: Pupils equal, round, and reactive to light. Conjunctivae normal. Neck: Normal range of motion. Neck supple. Thyroid normal. No JVD. Pulmonary: Effort normal. Breath sounds normal. Abdomen: Abdomen soft. Bowel sounds normal. No tenderness. No mass. Neurological: Alert. Oriented x 3. Appropriate for situation. Intact cranial nerves. Normal motor skills. Normal gait. Skin: Dry. Warm. No cyanosis. No clubbing. Musculoskeletal: No kyphosis. Normal ROM. Cardiovascular: Rate: Regular rhythm and Normal rate. PMI: PMI not displaced Pulses: Negative for edema. Normal pulses. Heart Sounds: Normal heart sounds. Normal S1 and Normal S2 No gallop. No S3 sound. No S4 sound and No murmur. Cardiovascular Comments: I spent 45 minutes today reviewing the patient's medical record, obtaining history, performing an exam, ordering medications, tests, and/or procedures, documenting in the medical record and coordination of care. Diagnoses/Impression: No diagnosis found. Referring Provider: No ref. provider found PCP: NOEMI JADE MD documented in this encounter Plan of Treatment Not on file documented as of this encounter Goals Goal Patient Goal Type Associated Problems Recent Progress Patient-Stated? Author Improve Home Support System General No Laura Cheatham RN Return home with [facility] home health General No Malgorzata Brown, TELEVISION NEWS PRODUCER HOME WITH DAUGHTER General Reina Laura Cheatham RN documented as of this encounter Visit Diagnoses Diagnosis SSS (sick sinus syndrome) ([facility])- Primary Sinoatrial node dysfunction Essential hypertension Unspecified essential hypertension Current use of aspirin Hyperlipidemia, mixed Mixed hyperlipidemia Pacemaker Cardiac pacemaker in situ documented in this encounter Care Teams Financial Institution Vice President Relationship Specialty Start Date End Date Noemi Jade MD [facility]. [address] [address] PCP - General INTERNAL MEDICINE 08/23/18 03/03/23 Joni Mckeon MD Three [facility]. [address] [address] [place] Melt Superintendant CARDIOVASCULAR DISEASE 07/04/18 documented as of this encounter
--- OUTSIDE RECORDS SUMMARY | 2024-04-05 00:13 | XMS_ITS | Encounter Summary ---
Author Organization [facility] Address [address] [place] [address]. [place] [address] [place] [address] Care Team Providers Care Percussion Instrument Tuner Name Role Phone Joni Mckeon MD Unavailable [phone] Noemi Barnard MD Primary Care Provider [phone] Encounter Details Date Type Department Care Team (Latest Contact Info) Description 06/26/2020 Travel Social History Tobacco Use Types Packs/Day [...] have Coronavirus / COVID-19? No / Unsure 06/26/2020 10:45 AM CDT documented as of this encounter [...] No Laura Cheatham, RN Return home with [facility] home health General No Malgorzata Brown, RF TECHNICIAN HOME WITH DAUGHTER General No Laura Cheatham, RN documented as of this encounter Visit Diagnoses Not on filedocumented in this encounter Care Teams Percussion Instrument Tuner Relationship Specialty Start Date End Date Noemi Barnard MD [facility]. [facility] [address] [place] [address] PCP - General INTERNAL MEDICINE 08/23/18 03/03/23 Joni Mckeon MD Three [facility]. [facility] [address] [place] [address] [place] Coin Machine Collector Supervisor CARDIOVASCULAR DISEASE 07/04/18 documented as of this encounter
--- OUTSIDE RECORDS SUMMARY | 2024-04-05 00:13 | XMS_ITS | Encounter Summary ---
Author Organization [facility] Address [address] [place] [address]. [place] [address] [place] [address] Care Team Providers Care Animal Humane Agent Supervisor Name Role Phone Joni Mckeon MD Unavailable [phone] Noemi Barnard MD Primary Care Provider [phone] Encounter Details Date Type Department Care Team (Latest Contact Info) Description 07/30/2020 Scan HEALTH INFO SRVCS Scanned, Documents Social [...] have Coronavirus / COVID-19? No / Unsure 08/05/2020 1:11 PM CDT documented as of this encounter [...] No Laura Cheatham, RN Return home with [facility] home health General No Malgorzata Brown MSW HOME WITH DAUGHTER General No Laura Cheatham, RN documented as of this encounter Visit Diagnoses Not on filedocumented in this encounter Care Teams Animal Humane Agent Supervisor Relationship Specialty Start Date End Date Noemi Barnard MD [facility]. [facility] [address] [place] [address] PCP - General INTERNAL MEDICINE 08/23/18 03/03/23 Joni Mckeon MD [facility]. [facility] [address] [place] [address] [place] Lamp Decorator CARDIOVASCULAR DISEASE 07/04/18 documented as of this encounter
--- OUTSIDE RECORDS SUMMARY | 2024-04-05 00:13 | XMS_ITS | Encounter Summary ---
Author Organization [facility] Address [address] [place] [address]. [place] [address] [place] [address] Care Team Providers Care Extension Supervisor Name Role Phone Joni Mckeon MD Unavailable [phone] Noemi Barnard MD Primary Care Provider [phone] Reason for Visit * Reason Comments UTI Encounter Details Date Type Department Care Team (Late st Contact Info) Description 06/17/2020 9:20 AM CDT Office Visit [facility] - [facility] [address] [facility], [address] [place] [address] Clemencia Miller MD [address] [place] [address] [place] [address] UTI Social History Tobacco Use Types Packs/Day Years [...] Sign Reading Time Taken Comments Blood Pressure 132/76 06/17/2020 9:33 AM CDT Pulse - - Temperature - - Respiratory Rate - - Oxygen Saturation - - Inhaled Oxygen Concentration - - Weight 51.3 kg (113 lb) 06/17/2020 9:33 AM CDT Height 160 cm (5' 3 ) 06/17/2020 9:33 AM CDT Body Mass Index 20.02 06/17/2020 9:33 AM CDT documented in this encounter Functional [...] Progress Notes * Clemencia Miller MD - 06/17/2020 9:20 AM CDT Roxana Ch is an 84-year-old female, presenting for follow-up for her history [...] tolerates it without adverse side effects. She does believe it helps. Cystoscopy in October 2019 showed a mildly trabeculated bladder, with mild inflammation. She denies dysuria or hematuria, abdominal or pelvic pain. She denies fever chills. Shehas been working on improving her water intake, as well as double voiding. Bowel function is normal. PMH, PSH, SH, FH, Meds reviewed Blood pressure 132/76, height 5' 3 (1.6 m), weight 51.3 kg (113 lb). Physical Exam Constitutional: She is oriented to person, place, and time. Thin, elderly female HENT: Head: Normocephalic and atraumatic. Eyes: Conjunctivae and EOM are normal. Neck: Normal range of motion. Pulmonary/Chest: Effort normal. No respiratory distress. Abdominal: Soft. She exhibits no distension. Neurological: She is alert and oriented to person, place, and time. No cranial nerve deficit. Psychiatric: She has a normal mood and affect. Her behavior is normal. WBC Date Value Ref Range Status 02/15/2020 6.8 4.5 - 11.0 x10'3/uL Final HGB Date Value Ref Range Status 02/15/2020 13.4 12.0 - 16.0 G/DL Final PLT Date Value Ref Range Status 02/15/2020 222 130 - 400 x10'3/uL Final SODIUM Date Value Ref Range Status 02/15/2020 138 136 - 145 MMOL/L Final POTASSIUM Date Value Ref Range Status 02/15/2020 4.0 3.5 - 5.1 MMOL/L Final CHLORIDE S/P/B Date Value Ref Range Status 02/15/2020 104 100 - 108 MMOL/L Final CO2 Date Value Ref Range Status 02/15/2020 28.3 21 - 32 MMOL/L Final ANION GAP Date Value Ref Range Status 02/15/2020 5.7 5 - 15 MMOL/L Final BUN Date Value Ref Range Status 02/15/2020 22 (H) 7 - 18 MG/DL Final CREATININE S/P/B Date Value Ref Range Status 02/15/2020 0.92 0.55 - 1.02 MG/DL Final BUN CREATININE RATIO Date Value Ref Range Status 02/15/2020 23.9 6 - 26 Final eGFR Non-Afr. Amer. Date Value Ref Range Status 02/15/2020 57 (L) >90 ML/MIN/1.73 M2 Final eGFR Afr. Amer. Date Value Ref Range Status 02/15/2020 66 (L) >90 ML/MIN/1.73 M2 Final Comment: NOTE: eGFR is not calculated for patients <18 years of age. This is an estimated GFR (CKD EPI) and should not be used for calculating drug doses. GLUCOSE Date Value Ref Range Status 02/15/2020 97 70 - 99 MG/DL Final CALCIUM Date Value Ref Range Status 02/15/2020 9.7 8.5 - 10.1 MG/DL Final TOTAL PROTEIN S/P/B Date Value Ref Range Status 01/31/2020 7.6 6.4 - 8.2 G/DL Final ALBUMIN S/P/B Date Value Ref Range Status 01/31/2020 3.6 3.4 - 5.0 G/DL Final BILIRUBIN TOTAL S/P/B Date Value Ref Range Status 01/31/2020 0.4 0.2 - 1.2 MG/DL Final ALKALINE PHOSPHATASE S/P/B Date Value Ref Range Status 01/31/2020 119 50 - 136 U/L Final AST Date Value Ref Range Status 01/31/2020 21 15 - 37 U/L Final ALT Date Value Ref Range Status 01/31/2020 25 14 - 55 U/L Final COLOR (U) YELLOW TRANSPARENCY CLEAR GLUCOSE (U) NEGATIVE MG/DL NEGATIVE BILIRUBIN (U) NEGATIVE NEGATIVE U KETONES NEGATIVE MG/DL NEGATIVE Specific [place] (U) 1.001 - 1.035 1.025 BLOOD NEGATIVE NEGATIVE U PH 5.0 - 9.0 5.5 PROTEIN (U) NEGATIVE mg/dL NEGATIVE UROBILINOGEN 0.2 - 1.0 EU/dL = mg/dL 0.2 NITRITES NEGATIVE MG/DL NEGATIVE LEUKOCYTE ESTERASE NEGATIVE NEGATIVE Imaging: EXAMINATION: Renal and bladder ultrasound EXAM [...] of lower urinary tract irritants and stimulants. Continue Myrbetriq to 50 mg. I will plan to have her follow-up in 6 months. CLEMENCIA MILLER MD 06/17/2020 documented in this encounter Plan of Treatment Not on file documented as of this encounter Goals Goal Patient Goal Type Associated Problems Recent Progress Patient-Stated? Author Improve Home Support System General No Laura Cheatham, RN Return home with [facility] home health General No Malgorzata Brown DRY CLEANING ATTENDANT HOME WITH DAUGHTER General No Laura Cheatham RN documented as of this encounter Procedures Procedure Name Priority Date/Time Associated Diagnosis Comments URINALYSIS AUTO DIP Routine 06/17/2020 8 :46 AM CDT Recurrent UTI documented in this encounter Results * URINALYSIS AUTO DIP (06/17/2020 8:46 AM CDT) COLOR (U) YELLOW [facility] ([address]), [place] TRANSPARENCY CLEAR [facility] ([address]), [place] GLUCOSE (U) NEGATIVE NEGATIVE MG/DL [facility] ([address]), [place] BILIRUBIN (U) NEGATIVE NEGATIVE [facility] [...] NEGATIVE NEGATIVE [facility] ([address]), [place] Urine specimen (specimen) URINE SPECIMEN OBTAINED BY CLEAN CATCH PROCEDURE / Unknown 06/17/2020 8:46 AM CDT us Clemencia Miller MD URINE ORDERABLES Final Result [facility] ([address]), [place] [address] [place] [address], [place] [phone] documented in this encounter Visit Diagnoses Diagnosis Recurrent UTI- Primary Urinary tract infection, site not specified OAB (overactive bladder) Hypertonicity of bladder documented in this encounter Care Teams Extension Supervisor Relationship Specialty Start Date End Date Noemi Barnard MD [address] [place] [address] [place] [address] PCP - General INTERNAL MEDICINE 08/23/18 03/03/23 [facility] [address] [address] [place] [employer] Rafter Laborer CARDIOVASCULAR DISEASE 07/04/18 documented as of this encounter
--- OUTSIDE RECORDS SUMMARY | 2024-04-05 00:13 | XMS_ITS | Encounter Summary ---
Author Organization [facility] Address [address] [place] [address]. [place], [place] [address] [place] [address] Care Team Providers Care Museum Archivist Name Role Phone Joni Mckeon MD Unavailable [phone] Noemi Barnard MD Primary Care Provider [phone] Reason for Referral * Imaging (Routine) - Closed Specialty Diagnoses / Procedures Referred By Contac t Referred To Contact RADIOLOGY Diagnoses Post-menopause Procedures BONE DENSITY/[place] [address] [place] [address] Phone: tel: fax: Referral ID Status Reason Start Date Expiration Date Visits Re quested Visits Authorized [id number] Closed 07/10/2020 08/09/2021 1 1 Reason for Visit * Imaging (Routine) - Closed Specialty Diagnoses / Procedures Referred By Contac t Referred To Contact RADIOLOGY Diagnoses Breast cancer screening by mammogram Procedures MG SCREENING [place] [address] [place] [address] Phone: tel: fax: Referral ID Status Reason Start Date Expiration Date Visits Re quested Visits Authorized [id number] Closed 07/26/2020 08/25/2021 1 1 Encounter Details Date Type Department Care Team (Latest Contact Info) Description 07/29/2020 11:48 AM CDT - 07/29/2020 11:59 PM CDT Hospital Encounter [facility] [address] [place] [address] [place] [address] [facility] [place] [address] Discharge Disposition: Home or Self Care (Routine [...] have Coronavirus / COVID-19? No / Unsure 07/29/2020 11:47 AM CDT documented as of this encounter [...] Assessment Author Status Yes 08/16/2019 11:28 AM Laila Mina R N Active documented as of this [...] by mouth daily. Indications: Anticoagulant Therapy 8 Cholecalciferol (VITAMIN D) 2000 units CapIndications:Nutr itional Support Take 2,000 Units by mouth daily. Indications: Nutritional Support 8 donepezil 10 MG Tab Take two tabs PO QAM 0 memantine ER 28 MG 24 hr capsule Take 28 mg by mouth daily. sertraline 100 MG tabletIndications:D epression Take 100 mg by mouth every morning. Indications: Depression 0 vitamin C 250 MG tablet Take 250 mg by mouth daily. AMLODIPINE 5 MG tablet TAKE 1 TABLET BY MOUTH DAILY 90 tablet 1 0 09/11/19 21 BENAZEPRIL 20 MG tablet TAKE 1 TABLET(20 MG) BY MOUTH DAILY 90 tablet 1 1 10/01/19 21 cephALEXin 500 MG capsule Take 1 capsule (500 mg total) by mouth 2 (two) times daily for 7 days. 14 capsule 0 01/24/20 21 levothyroxine 50 MCG tabletIndications:H ypothyroidism, unspecified type TAKE 1 TABLET(50 MCG) BY MOUTH EVERY MORNING 90 tablet 1 1 03/06/20 21 METHENAMINE 1 g tabletIndications:R ecurrent UTI TAKE 1 TABLET(1 GRAM) BY MOUTH TWICE DAILY WITH MEALS 60 tablet 3 0 11/01/19 21 mirabegron ER (MYRBETRIQ) 50 MG 24 hr tabletIndications:O AB (overactive bladder) Take 1 tablet (50 mg total) by mouth daily. 30 tablet 3 1 10/30/19 21 nitrofurantoin 50 MG capsuleIndications: Recurrent UTI Take [...] mg by mouth nightly at bedtime. 03/24/20 rOPINIRole 1 MG tablet Take 1 mg by mouth nightly at bedtime. 07/31/19 21 documented as of this encounter Plan of Treatment Not on file documented as of this encounter Goals Goal Patient Goal Type Associated Problems Recent Progress Patient-Stated? Author Improve Home Support System General No Laura Cheatham, RN Return home with [facility] home health General No Malgorzata Brown MSW HOME WITH DAUGHTER General No Laura Cheatham RN documented as of this encounter Procedures Procedure Name Priority Date/Time Associated Diagnosis Comments MG SCREENING W SEAN KARLA DIGI Routine 07/29/2020 12:27 PM CDT Breast cancer screening by mammogram BONE DENSITY/DEXA Routine 07/29/2020 12: 26 PM CDT Post-menopause documented in this encounter Results * BONE DENSITY/DEXA (07/29/2020 12:26 PM CDT) Anatomical Region Laterality Modality Bone Bone Density 07/29/2020 3:39 PM CDT Impressions 07/29/2020 3:41 PM CDT IMPRESSION: 1. ??Lumbar spinal bone mineral density within normal limits. 2. ??Left femoral neck bone mineral density within normal limits. Referred By: KARLOS GRANGER Interpreted By: Vaughn Moreira, 07/29/2020 3:39 PM Narrative 07/29/2020 3:41 PM CDT IMAGING STUDIES: ??BONE DENSITY/DEXA ?DATE: ??07/29/2020 12:01 PM HISTORY: ??84-year-old female for screening study. ? Comparison: CT pelvis and right hip 08/07/2019. CT abdomen and pelvis 07/03/2019. DISCUSSION: BONE DENSITOMETRY LUMBAR SPINE L2-L4: Bone mineral density: 1.169 g/sq cm. T score: 0.8 Z score: 3.8 WHO classification: Normal. Substantial spinal curvature with associated degenerative sclerotic changes likely resulting in overestimation of the bone mineral density. LEFT FEMORAL NECK: Bone mineral density: 0.851 g/sq cm. T score: 0 Z score: 2.5 WHO classification: Normal. Procedure Note Vaughn Moreira MD - 07/29/2020 IMAGING STUDIES: BONE DENSITY/DEXA DATE: 07/29/2020 12:01 PM HISTORY: 84-year-old female for screening study. Comparison: CT pelvis and right hip 08/07/2019. CT abdomen and pelvis 07/03/2019. DISCUSSION: BONE DENSITOMETRY LUMBAR SPINE L2-L4: Bone mineral density: 1.169 g/sq cm. T score: 0.8 Z score: 3.8 WHO classification: Normal. Substantial spinal curvature with associated degenerative scleroticchanges likely resulting in overestimation of the bone mineral density. LEFT FEMORAL NECK: Bone mineral density: 0.851 g/sq cm. T score: 0 Z score: 2.5 WHO classification: Normal. IMPRESSION: 1. Lumbar spinal bone mineral density within normal limits. 2. Left femoral neck bone mineral density within normal limits. Referred By: KARLOS GRANGER Interpreted By: Vaughn Moreira, 07/29/2020 3:39 PM Karlos [place] DEXA Final Result documented in this encounter Visit Diagnoses Diagnosis Post-menopause Asymptomatic postmenopausal status (age-related) (natural) documented in this encounter Care Teams Museum Archivist Relationship Specialty Start Date End Date Noemi Barnard MD Three [facility]. [address] [address] PCP - General INTERNAL MEDICINE 08/23/18 03/03/23 Joni Mckeon MD Three [facility]. [address] [address] [place] Exhaust Equipment Operator CARDIOVASCULAR DISEASE 07/04/18 documented as of this encounter
--- OUTSIDE RECORDS SUMMARY | 2024-04-05 00:13 | XMS_ITS | Encounter Summary ---
Author Organization [facility] Address [address] [place] [address]. [place] [address] [place] [address] Care Team Providers Care Road Crossing Guard Name Role Phone Joni Mckeon MD Unavailable [phone] Noemi Barnard MD Primary Care Provider [phone] Encounter Details Date Type Department Care Team (Latest Contact Info) Description 05/28/2020 Travel Social History Tobacco Use Types Packs/Day [...] have Coronavirus / COVID-19? No / Unsure 05/28/2020 2:35 PM PLANT BUYER documented as of this encounter Functional Status [...] No Laura Cheatham, RN Return home with [facility] home health General No Malgorzata Brown, PERSONNEL CONSULTANT HOME WITH DAUGHTER General No Laura Cheatham, RN documented as of this encounter Visit Diagnoses Not on filedocumented in this encounter Care Teams Road Crossing Guard Relationship Specialty Start Date End Date Noemi Barnard MD [facility]. [address] [address] PCP - General INTERNAL MEDICINE 08/23/18 03/03/23 Joni Mckeon MD Three [facility]. [facility] [address] [place] [address] [place] Investigative Reporter CARDIOVASCULAR DISEASE 07/04/18 documented as of this encounter
--- OUTSIDE RECORDS SUMMARY | 2024-04-05 00:13 | XMS_ITS | Encounter Summary ---
Author Organization [facility] Address [address] [place] [address]. [place] [address] [place] [address] Care Team Providers Care Kier Tender Name Role Phone Joni Mckeon MD Unavailable Noemi Barnard MD Primary Care Provider [phone] Encounter Details Date Type Department Care Team (Latest Contact Info) Description 07/17/2020 Travel Social History Tobacco Use Types Packs/Day [...] have Coronavirus / COVID-19? No / Unsure 07/17/2020 1:35 PM CDT documented as of this encounter [...] No Laura Cheatham, RN Return home with [facility] home health General No Malgorzata Brown, NAVAL DESIGNER HOME WITH DAUGHTER General No Laura Cheatham, RN documented as of this encounter Visit Diagnoses Not on filedocumented in this encounter Care Teams Kier Tender Relationship Specialty Start Date End Date Noemi Barnard MD [facility]. [facility] [address] [place] [address] PCP - General INTERNAL MEDICINE 08/23/18 03/03/23 Joni Mckeon MD Three [facility]. [facility] [address] [place] [address] [place] Medium Cycle Salesperson CARDIOVASCULAR DISEASE 07/04/18 documented as of this encounter
--- OUTSIDE RECORDS SUMMARY | 2024-04-05 00:13 | XMS_ITS | Encounter Summary ---
Author Organization [facility] Address [address] [place] [address]. [place] [address] [place] [address] Care Team Providers Care Law Firm Consultant Name Role Phone Joni Mckeon MD Unavailable [phone] Noemi Barnard MD Primary Care Provider [phone] Encounter Details Date Type Department Care Team (Latest Contact Info) Description 07/24/2020 Travel Social History Tobacco Use Types Packs/Day [...] have Coronavirus / COVID-19? No / Unsure 07/24/2020 3:13 PM CDT documented as of this encounter [...] No Laura Cheatham, RN Return home with [facility] home health General No Malgorzata Brown, VENEREAL DISEASE INVESTIGATOR HOME WITH DAUGHTER General No Laura Cheatham, RN documented as of this encounter Visit Diagnoses Not on filedocumented in this encounter Care Teams Law Firm Consultant Relationship Specialty Start Date End Date Noemi Barnard MD [facility]. [facility] [address] [place] [address] PCP - General INTERNAL MEDICINE 08/23/18 03/03/23 Joni Mckeon MD Three [facility]. [facility] [address] [place] [address] [place] Gift Wrap Associate CARDIOVASCULAR DISEASE 07/04/18 documented as of this encounter
--- OUTSIDE RECORDS SUMMARY | 2024-04-05 00:13 | XMS_ITS | Encounter Summary ---
Author Organization [facility] Address [address] [place] [address]. [place] [address] [place] [address] Care Team Providers Care Ballpoint Pen Cartridge Tester Name Role Phone Joni Mckeon MD Unavailable [phone] Noemi Barnard MD Primary Care Provider [phone] Encounter Details Date Type Department Care Team (Latest Contact Info) Description 06/18/2020 Travel Social History Tobacco Use Types Packs/Day [...] have Coronavirus / COVID-19? No / Unsure 06/18/2020 12:23 PM CDT documented as of this encounter [...] HOSPITAL home health General No Malgorzata Brown, ACCOUNTS RECEIVABLE SUPERVISOR HOME WITH DAUGHTER General No Laura Cheatham, RN documented as of this encounter Visit Diagnoses Not on filedocumented in this encounter Care Teams Ballpoint Pen Cartridge Tester Relationship Specialty Start Date End Date Noemi Barnard MD [facility]. [facility] [address] [place] [address] PCP - General INTERNAL MEDICINE 08/23/18 03/03/23 Joni Mckeon MD Three [facility]. [facility] [address] [place] [address] [place] Set Up Worker CARDIOVASCULAR DISEASE 07/04/18 documented as of this encounter
--- OUTSIDE RECORDS SUMMARY | 2024-04-05 00:13 | XMS_ITS | Encounter Summary ---
Author Organization [facility] Address [address] [place] [address]. [place] [address] [place] [address] Care Team Providers Care Lower School Spanish Teacher Name Role Phone Joni Mckeon MD Unavailable [phone] Noemi Barnard MD Primary Care Provider [phone] Encounter Details Date Type Department Care Team (Latest Contact Info) Description 05/28/2020 Scan HEALTH INFO SRVCS Scanned, Documents Social [...] have Coronavirus / COVID-19? No / Unsure 05/30/2020 2:02 PM REVENUE STAMP CLERK documented as of this encounter Functional [...] Laila Lujan L, R N Active * Do you have [...] Author Improve Home Support System General No aLura Cheatham, RN Return home with [facility] home health General No Malgorzata Brown MSW HOME WITH DAUGHTER General No Laura Cheatham, RN documented as of this encounter Visit Diagnoses Not on filedocumented in this encounter Care Teams Lower School Spanish Teacher Relationship Specialty Start Date End Date Noemi Barnard MD [facility]. [facility] [address] [place] [address] PCP - General INTERNAL MEDICINE 08/23/18 03/03/23 Joni Mckeon MD [facility]. [facility] [address] [place] [address] [place] Rehab Therapist CARDIOVASCULAR DISEASE 07/04/18 documented as of this encounter
--- OUTSIDE RECORDS SUMMARY | 2024-04-05 00:13 | XMS_ITS | Encounter Summary ---
Author Organization [facility] Address [address] [place] [address]. [place], [place] [address] [place] [address] Care Team Providers Care Database Modeler Name Role Phone Joni Mckeon MD Unavailable [phone] Noemi Barnard MD Primary Care Provider [phone] Reason for Visit * Auth/Cert Specialty Diagnoses / Procedures Referred By Eugenie crain Referred To Contact Diagnoses Dysphagia, unspecified type Choking Weight loss dysaphagia, choking and weight loss Procedures EGD WITH DILAT STRICTURE Referral ID Status Reason Start Date Expiration Date Visits Re quested Visits Authorized [id number] 1 1 Encounter Details Date Type Department Care Team (Late st Contact Info) Description 04/19/2020 8:37 AM SOLAR SYSTEM DESIGNER Anesthesia Event [facility] [address] [place] [address] Leticia Valdivia CRNA [address] [place] [address] Anesthesia Record Procedure Summary Procedure Name Responsible Anesthesiologist Anesthesia Start Time Anesthesia Stop Time EGD WITH DILATION Leticia Valdivia CRNA 04/19/20 0837 0849 Events Date Time Event Comment 04/19/2020 0724 0724 AN UNEMPLOYMENT INSPECTOR Prepped 0837 An Start Patient ID and consent checked and patient reassessed. 0837 An Start Data 0837 Nasal Cannula Applied 0837 Anesthesia Ready 0849 Nasal Cannula Removed 0849 an stop data 0849 An Stop 0850 Post Anesthetic Care Handoff I completed my handoff to the receiving nurse during which we: 1. Identified the patient 2. Identified the responsible provider 3. Reviewed the pertinent medical history 4. Discussed the surgical course 5. Reviewed intra-op anesthesia management and issues during anesthesia 6. Set expectations for post-procedure period 7. Allowed opportunity for questions and acknowledgement of understanding. Meds Name Total benzocaine (HURRICAINE) 20% mouth soluti on 1 spray lidocaine (PF) (XYLOCAINE) 1% injection 75 mg propofol (DIPRIVAN) 200 mg/20 mL injecti on 75 mg sodium chloride 0.9% infusion 0 mL * Agents Name N2O * Blood No blood administrations on file. Lines, Drains, and Airways Type Details Placement Removal Peripheral IV Placement Date: 04/05 08/23; Placement Time: 720; Placed Outside of This Facility?: No; Size: 22 G; Orientation: Right; Location: Forearm; Site Prep: Chlorhexidine; Inserted By: Mohan; Insertion attempts: 3; Patient Tolerance: Tolerated well; Removal Date: 04/19/20; Removal Time: 923; Removal Reason: Patient Discharged 04/19/[address] by Patricia Burrell RN 04/19/20923 by Patricia Burrell RN documented in this encounter Social History Tobacco Use Types Packs/Day Years [...] have Coronavirus / COVID-19? No / Unsure 04/19/2020 6:40 AM SOLAR SYSTEM DESIGNER documented as of this encounter Functional Status [...] R N Active documented in this encounter OR Notes * Anesthesia Postprocedure Evaluation - Leticia Valdivia CRNA - 04/19/2020 8:50 AM CST Anesthesia Post-op Note Roxana Ch Procedure(s): EGD WITH DILATION (N/A ) Anesthesia type: MAC Vitals: 04/19/20 0702 BP: (!) 155/56 Vitals: 04/19/20 0702 Pulse: 59 Vitals: 04/19/20 0702 Resp: 18 Vitals: 04/19/20 0702 Temp: 36.9 ??C Vitals: 04/19/20 07 SpO2: 98% Patient Location: Phase II/Outpatient Level of Consciousness: awake, alert and oriented Pain Management: adequate analgesia Airway Patency: patent Respiratory Status: acceptable Cardiovascular Status: acceptable Post-Op Nausea: none Postoperative Hydration: euvolemic Complications: no anesthesia complication R SYSTEM DESIGNER * Anesthesia Preprocedure Evaluation - Leticia Valdivia CRNA - 04/16/2020 10:47 AM CST Anesthesia ROS/MED History Reviewed: Patient summary , Nursing notes , ECG, Family history anesthesia, Anesthesia history , Medications , Labs , Images/Studies Pre-Anesthetic State: alert, awake and responds appropriately Pulmonary Cardiovascular Exercise tolerance:poor (+) pacemaker, hypertension, arrhythmia, hyperlipidemia Neuro/Psych GI/Hepatic/Renal (+) GERD Endo/Other (+) diabetes mellitus, hypothyroidism Physical Evaluation Airway Mallampati: III TM Distance: >3 FB Neck ROM: normal Dental No notable dental history Pulmonary Breath sounds clear to auscultation Cardiovascular Rhythm: regular Rate: normal Anesthesia Plan ASA 3 Intravenous Induction Anesthesia type: MAC Informed Consent Anesthetic plan and risks discussed with patient of whom consent was obtained. . Cosigned by Christos Burrows MD at 04/19/2020 8:22 AM SOLAR SYSTEM DESIGNER R SYSTEM DESIGNER R SYSTEM DESIGNER R SYSTEM DESIGNER Associated attestation - Christos Burrows MD - 04/19/2020 8:22 AM SOLAR SYSTEM DESIGNER I am certifying my agreement with the anesthesia plan of care and will be supervising the administration of anesthesia. documented in this encounter Plan of Treatment Not on file documented as of this encounter Goals Goal Patient Goal Type Associated Problems Recent Progress Patient-Stated? Author Improve Home Support System General Laura Akbar RN Return home with [facility] home health General No Malgorzata Brown CUTTER INSPECTOR HOME WITH DAUGHTER General Laura Akbar RN documented as of this encounter Visit Diagnoses Not on filedocumented in this encounter Administered Medications Inactive Administered Medications - up to 3 most recent administrations Medication Order MAR Action Action Date Dose Rate Site benzocaine 20 % (HURRICAINE) 20 % mouth solution PRN, Starting on Wed04/19/20 at 0839, Until Wed04/19/20 at 0849, Anesthesia Intra-Op Given 04/19/2020 8:39 AM SOLAR SYSTEM DESIGNER 1 spray lidocaine (PF) (XYLOCAINE) 1 % injection PRN, Starting on Wed04/19/20 at 0839, Until Wed04/19/20 at 0849, Anesthesia Intra-Op Given 04/19/2020 8:39 AM SOLAR SYSTEM DESIGNER 75 mg propofol (DIPRIVAN) IV bolus PRN, Starting on Wed04/19/20 at 0839, Until Wed04/19/20 at 0849, Anesthesia Intra-Op Given 04/19/2020 8:44 AM SOLAR SYSTEM DESIGNER 25 mg Given 04/19/2020 8:39 AM SOLAR SYSTEM DESIGNER 50 mg sodium chloride 0.9% infusion at 10 mL/hr, Intravenous, Continuous, Starting on Wed04/19/20 at 0715, Until Wed04/19/20 at 1137, Infuse at TKO rate. Use mini-drip tubing for ESRD patients., Pre-Op New Bag 04/19/2020 8:37 AM SOLAR SYSTEM DESIGNER New Bag 04/19/2020 7:22 AM SOLAR SYSTEM DESIGNER 10 mL/hr documented in this encounter Care Teams Database Modeler Relationship Specialty Start Date End Date Noemi Barnard MD [facility]. [address] [address] PCP - General INTERNAL MEDICINE 08/23/18 03/03/23 Joni Mckeon MD [facility]. [address] [address] [place] Physical Sciences Professor CARDIOVASCULAR DISEASE 07/04/18 documented as of this encounter
--- OUTSIDE RECORDS SUMMARY | 2024-04-05 00:13 | XMS_ITS | Encounter Summary ---
Author Organization [facility] Address [address] [place] [address]. [place], [place] [address] [place] [address] Care Team Providers Care [facility] Representative Name Role Phone Joni Mckeon MD Unavailable [phone] Noemi Barnard MD Primary Care Provider [phone] Encounter Details Date Type Department Care Team (Latest Contact Info) Description 05/02/2020 4:01 PM PROJECT ADMINISTRATOR - 05/02/2020 11:59 PM [facility] Hospital Encounter [facility] [address] [place] [address] Irwin Keating MD Discharge Disposition: Home or Self Care (Routine [...] COVID-19? No / Unsure 05/02/2020 3:58 PM PROJECT ADMINISTRATOR documented as of this encounter Functional Status [...] Assessment Author Status No 08/16/2019 11:28 AM Laila Mina R N Active * Because of a [...] of Discharge aspirin EC 81 MG EC tabletIndication s:Anticoagulant Therapy Take 81 mg by mouth daily. Indications: Anticoagulant Therapy 01/03/2018 Cholecalciferol (VITAMIN D) 2000 units CapIndications:N utritional Support Take 2,000 Units by mouth daily. Indications: Nutritional Support 01/03/2018 donepezil 10 MG Tab Take two tabs PO QAM 08/17/2019 sertraline 100 MG tabletIndication s:Depression Take 100 mg by mouth every morning. Indications: Depression 08/17/2019 vitamin C 250 MG tablet Take 250 mg by mouth daily. AMLODIPINE 5 MG tablet TAKE 1 TABLET BY MOUTH DAILY 90 tablet 1 03/04/2020 1 BENAZEPRIL 20 MG tablet TAKE 1 TABLET(20 MG) BY MOUTH DAILY 90 tablet 1 04/17/2020 1 cephALEXin 500 MG capsule Take 1 capsule (500 mg total) by mouth 2 (two) times daily for 7 days. 14 capsule 02/21/2020 1 LEVOTHYROXINE 50 MCG tabletIndication s:Hypothyroidism , unspecified type TAKE 1 TABLET(50 MCG) BY MOUTH EVERY MORNING 90 tablet 04/02/2020 1 METHENAMINE 1 g tabletIndication s:Recurrent UTI TAKE 1 TABLET(1 GRAM) BY MOUTH TWICE DAILY WITH MEALS 60 tablet 3 03/25/2020 1 mirabegron ER (MYRBETRIQ) 50 MG 24 hr tabletIndication s:OAB (overactive bladder) Take 1 tablet (50 mg total) by mouth daily. 30 tablet 3 03/14/2020 1 MYRBETRIQ 25 MG 24 hr tabletIndication s:Recurrent UTI TAKE 1 TABLET(25 MG) BY MOUTH DAILY 30 tablet 3 03/25/2020 1 nitrofurantoin 50 MG capsuleIndicatio ns:Recurrent UTI Take 1 capsule (50 mg total) by mouth nightly at bedtime. 30 capsule 2 10/19/2019 2 OMEPRAZOLE 20 MG capsuleIndicatio ns:Gastroesophag eal reflux disease with esophagitis TAKE 1 CAPSULE(20 MG) BY MOUTH DAILY 90 capsule 12/06/2019 1 PRAVASTATIN 40 MG tabletIndication s:Hyperlipidemia TAKE 1 TABLET(40 MG) BY MOUTH EVERY NIGHT AT BEDTIME 90 tablet 03/12/2020 1 propranolol 10 MG tablet Take 10 mg by mouth 2 (two) times daily. 1 risperiDONE 0.5 MG tablet Take 0.5 mg by mouth nightly at bedtime. 1 documented as of this encounter Plan of Treatment Not on file documented as of this encounter Goals Goal Patient Goal Type Associated Problems Recent Progress Patient-Stated? Author Improve Home Support System General No Laura Cheatham, RN Return home with [facility] home health General No Malgorzata Brown CLINICAL NURSING INSTRUCTOR HOME WITH DAUGHTER General No Laura Cheatham RN documented as of this encounter Visit Diagnoses Diagnosis Need for prophylactic vaccination against viral disease- Primary Need for prophylactic vaccination and inoculation against other viral diseases documented in this encounter Care Teams Medical Center Representative Relationship Specialty Start Date End Date Noemi Barnard MD Three [facility]. [address] [address] PCP - General INTERNAL MEDICINE 08/23/18 03/03/23 Joni Mckeon MD Three [facility]. [address] [address] [place] Medical Assistant Prn CARDIOVASCULAR DISEASE 07/04/18 documented as of this encounter
--- OUTSIDE RECORDS SUMMARY | 2024-04-05 00:13 | XMS_ITS | Encounter Summary ---
Author Organization [facility] Address [address] [place] [address]. [place] [address] [place] [address] Care Team Providers Care Ed Tech Name Role Phone Joni Mckeon MD Unavailable [phone] Noemi Barnard MD Primary Care Provider [phone] Reason for Visit * Reason Onset Date Comments Medication 06/18/2020 Encounter Details Date Type Department Care Team (Late st Contact Info) Description 06/18/2020 Telephone [facility] Medical Group Family & Internal Medicine [facility] [address] [place] [address] [place]emi Barnard MD [id number] [place] [id number] Medication Social History Tobacco Use Types [...] Progress Notes * Nuha Ruiz RN - 06/18/2020 10:56 AM CDTAddended by: NUHA RUIZ on: 06/18/2020 10:56 AM Modules accepted: Orders * DEEPALI Macias - 06/18/2020 10:50 AM CDT Okay to refill * Nuha Ruiz RN - 06/18/2020 10:39 AM CDT Okay to refill? * Marisa Laughlin - 06/18/2020 10:08 AM CDT [facility] called states they have not heard back from the following medication request Omeprazole 20 mg Roxana will be needing this. # [phone] documented in this encounter Plan of Treatment Not on file documented as of this encounter Goals Goal Patient Goal Type Associated Problems Recent Progress Patient-Stated? Author Improve Home Support System General No Laura Cheatham, RN Return home with [facility] home health General No Malgorzata Brown IT SECURITY ANALYST HOME WITH [facility] General No Laura Cheatham, RN documented as of this encounter Visit Diagnoses Diagnosis Gastroesophageal reflux disease with esophagitis documented in this encounter Care Teams Ed Tech Relationship Specialty Start Date End Date Noemi Barnard MD Three [facility]. [facility] [address] [place] [address] PCP - General INTERNAL MEDICINE 08/23/18 03/03/23 Joni Mckeon MD Three [facility]. [facility] [address] [place] [address] [employer] Secretary CARDIOVASCULAR DISEASE 07/04/18 documented as of this encounter
--- OUTSIDE RECORDS SUMMARY | 2024-04-05 00:13 | XMS_ITS | Encounter Summary ---
Author Organization [facility] Address [address] [place] [address]. [place] [address] [place] [address] Care Team Providers Care Manager Assisted Living Name Role Phone Joni Mckeon MD Unavailable [phone] Noemi Barnard MD Primary Care Provider Reason for Visit * Reason Comments Remote Device Check routine Toney remot e pacemaker transmission Encounter Details Date Type Department Care Team (Late st Contact Info) Description 06/10/2020 7:10 AM BODY SHOP SUPERVISOR Allied Health/Nurse Visit [facility] [facility], [facility] [address] [place] [address] Cruzito Mcnulty MD [facility]. [facility] [address] [place], [place] [id number] Remote Device Check (routine Toney remote pacemaker transmission) Social History Tobacco Use Types Packs/Day Years [...] COVID-19? Unable to assess 06/11/2020 10:02 AM BODY SHOP SUPERVISOR documented as of this encounter Functional Status [...] Progress Notes * Nolvia Thomason RN - 06/10/2020 7:10 AM CST Routine [place] Pacemaker Remote. Transmission attached. Stable battery, atrial and RV pacing and sensing threshold. AP %: 68, STAFF NUCLEAR MEDICINE TECHNOLOGIST %: 7 (0) AT/AF episodes. (0) Ventricular arrhythmias detected. Presenting AP/VS. MEDS: ASA and Inderal Follow up: [place] 09/16/2020 Cosigned by Cruzito Mcnulty MD at 06/14/2020 2:08 PM BODY SHOP SUPERVISOR SHOP SUPERVISOR SHOP SUPERVISOR SHOP SUPERVISOR documented in this encounter Plan of Treatment Not on file documented as of this encounter Goals Goal Patient Goal Type Associated Problems Recent Progress Patient-Stated? Author Improve Home Support System General No Laura Cheatham, RN Return home with [facility] home health General No Malgorzata Brown, FLOW FLOOR ATTENDANT HOME WITH DAUGHTER General No Laura Cheatham RN documented as of this encounter Visit Diagnoses Not on filedocumented in this encounter Care Teams Manager Assisted Living Relationship Specialty Start Date End Date Noemi Barnard MD [address] [address] PCP - General INTERNAL MEDICINE 08/23/18 03/03/23 Joni Mckeon MD [facility]. [facility] [address] [place] [address] Christopher Dye Winch Operator CARDIOVASCULAR DISEASE 07/04/18 documented as of this encounter
--- OUTSIDE RECORDS SUMMARY | 2024-04-05 00:13 | XMS_ITS | Encounter Summary ---
Author Organization [facility] - [facility] Address [facility] [facility] [place] [address] [place] [address] Care Team Providers Care Stripping And Booking Machine Operator Name Role Phone Joni Mckeon MD Unavailable [phone] Noemi Barnard MD Primary Care Provider [phone] Reason for Visit * Reason Onset Date Comments Refill Request 07/25/2020 Encounter Details Date Type Department Care Team (Late st Contact Info) Description 07/25/2020 Telephone [facility] Medical Group Multispecialty Care - [facility] [address] [facility] [address] [place] [address] Giovany Miller MD [address] [place] [address] [place]H [id number] Refill Request Social History Tobacco Use Types Packs/Day Years [...] documented in this encounter Progress Notes * Nuzhat Brown RN - 07/25/2020 9:13 AM CDT Last OV 06/17/20 with plan for 6 mon f/u Next OV 12/26/20 Med last filled 03/14/21 , #30 with 3 refills. Med was sent to preferred pharmacy per protocol order. documented in this encounter Plan of Treatment Not on file documented as of this encounter Goals Goal Patient Goal Type Associated Problems Recent Progress Patient-Stated? Author Improve Home Support System General No Laura Cheatham, RN Return home with [facility] home health General No Malgorzata Brown, BARREL DRAINER HOME WITH DAUGHTER General No Laura Cheatham, RN documented as of this encounter Visit Diagnoses Diagnosis OAB (overactive bladder) Hypertonicity of bladder documented in this encounter Care Teams Stripping And Booking Machine Operator Relationship Specialty Start Date End Date Noemi Barnard MD [facility]. [address] [address] PCP - General INTERNAL MEDICINE 08/23/18 03/03/23 Joni Mckeon MD [facility]. [address] [address] [employer] CARDIOVASCULAR DISEASE 07/04/18 documented as of this encounter
--- OUTSIDE RECORDS SUMMARY | 2024-04-05 00:13 | XMS_ITS | Encounter Summary ---
Author Organization [facility] Address [address] [place] [address]. [place] [address] [place] [address] Care Team Providers Care Acid Splicer Name Role Phone Joni Mckeon MD Unavailable [phone] Noemi Barnard MD Primary Care Provider [phone] Encounter Details Date Type Department Care Team (Latest Contact Info) Description 08/05/2020 Travel Social History Tobacco Use Types Packs/Day [...] No Laura Cheatham, RN Return home with [facility] home health General No Malgorzata Brown, ENTRY LEVEL SALES ASSOCIATE HOME WITH DAUGHTER General No Laura Cheatham, RN documented as of this encounter Visit Diagnoses Not on filedocumented in this encounter Care Teams Acid Splicer Relationship Specialty Start Date End Date Noemi Barnard MD [facility]. [facility] [address] [place] [address] PCP - General INTERNAL MEDICINE 08/23/18 03/03/23 Joni Mckeon MD Three [facility]. [facility] [address] [place] [address] [place] Test Specialist CARDIOVASCULAR DISEASE 07/04/18 documented as of this encounter
--- OUTSIDE RECORDS SUMMARY | 2024-04-05 00:13 | XMS_ITS | Encounter Summary ---
Author Organization [facility] Address [address] [place] [address]. [place] [address] [place] [address] Care Team Providers Care Substation Design Draftsperson Name Role Phone Joni Mckeon MD Unavailable [phone] Noemi Barnard MD Primary Care Provider [phone] Reason for Visit * Auth/Cert Specialty Diagnoses / Procedures Referred By Eugenie crain Referred To Contact Diagnoses Dysphagia, unspecified type Choking Weight loss dysaphagia, choking and weight loss Procedures EGD WITH DILAT STRICTURE Referral ID Status Reason Start Date Expiration Date Visits Re quested Visits Authorized [id number] 1 1 Encounter Details Date Type Department Care Team (Late st Contact Info) Description 04/19/2020 8:02 AM EMERY WHEEL WORKER - 04/19/2020 8:27 AM EMERY WHEEL WORKER Surgery [facility] [address] [place] [address] Nabila Francisco MD [address] [address] EGD WITH DILATION Surgery Details Date/Time Status Location OR Service Patient Class Case Class Case Type Trauma Case? 04/19/2020 8:02 AM Posted [facility] OR Endo Gastroenterology Short Stay/Outpa tient Surgery No Panel 1 Procedure LRB Anes Op Region Wound Class Comments EGD WITH DILATION N/A Monitor Anesthesia Care Clean Contaminated Surgeon Surgeon Role Service Panel Nabila Francisco MD Primary Gastroenterology 1 Special Needs 0700 documented in this encounter Social History Tobacco [...] COVID-19? No / Unsure 04/19/2020 6:40 AM EMERY WHEEL WORKER documented as of this encounter Last Filed Vital Signs Vital Sign Reading Time Taken Comments Blood Pressure 155/56 04/19/2020 7:02 AM EMERY WHEEL WORKER Pulse 59 04/19/2020 7:02 AM EMERY WHEEL WORKER Temperature 36.9 ??C (98.4 ??F) 04/19/2020 7:02 AM CS T Respiratory Rate 18 04/19/2020 7:02 AM EMERY WHEEL WORKER Oxygen Saturation 98% 04/19/2020 7:02 AM EMERY WHEEL WORKER Inhaled Oxygen Concentration - - Weight 48.5 kg (107 lb) 04/15/2020 5:19 PM EMERY WHEEL WORKER Height 160 cm (5' 3 ) 04/15/2020 5:19 PM EMERY WHEEL WORKER Body Mass Index 18.95 04/15/2020 5:19 PM EMERY WHEEL WORKER documented in this encounter Functional Status * [...] Author Status Yes 08/16/2019 11:28 AM CDT Tai, Laila L, R N Active * Do you [...] R N Active documented in this encounter Discharge Instructions * Discharge Instructions* Patricia Burrell RN - 04/19/2020 9:19 AM EMERY WHEEL WORKER Anesthesia general information Everyone recovers form surgery differently. Your recovery depends on the type of surgery performed,your age, level of activity before the surgery, and your overall health. To help the recovery process and for your safety, we recommend: ??? Have a family member of friend stay with you the first 24 hours after surgery. ??? Don't drive or drink alcohol or sign legal documents the first 24 hours after surgery. ??? Don't use heavy machinery, or operate power tools while taking pain medications. ??? Don't smoke-smoking increases your chance of of lung infections after surgery and decreases blood-flow slowing the healing process. ??? Don't skip meals- doing so may make you feel dizzy, shaky or anxious. ??? Decrease caffeine consumption- caffeine can make you feel anxious and nervous. ??? Take all medications as prescribed by your doctor. ??? Wash your hands often to avoid germs that cause infections. ??? Wear comfortable, loose fitting clothing that does not place pressure on your incision. Y WHEEL WORKER * Attachments The following attachments cannot be sent through Care Everywhere. * Upper GI Endoscopy Discharge Instructions ([place]) documented in this encounter Medications at Time [...] NIGHT AT BEDTIME 90 tablet 03/12/2020 1 risperiDONE 0.25 MG tablet Take 0.5 mg by mouth nightly at bedtime. documented as of this encounter H&P Notes * Nabila Francisco MD - 04/19/2020 7:49 AM CST HISTORY AND PHYSICAL INTERVAL NOTE: I have reviewed Roxana Ch History & Physical which was performed within the past 30 days. After examining Roxana Ch, no change has occurred in the patient's condition since the H&P was completed. Informed Consent Discussion: Potential benefits, risks, and side effects of the patient's procedure/surgery; the likelihood of the patient achieving his or her goals; and any potential problems that might occur during recuperation were discussed with the patient/family/personal event representative. Reasonable alternatives to the patient's proposed procedure/surgery including benefits, risks, and side effects related to the alternatives and the risks related to not receiving the proposed care were also discussed with the patient/family/personal event representative. Questions were answered and the patient/family/personal event representative verbalized understanding and desires to proceed. Y WHEEL WORKER Source Note - Nabila Francisco MD - 04/12/2020 1:00 PM EMERY WHEEL WORKER Images from the original note were not included. Gastroenterology Initial Visit Reason for Visit: Weight Loss (Losing weight for the past year and a lot of coughing.) History of Present Illness: 84-year-old female who was recently losing weight. Now she is lost about 25 pounds of weight over the past 1 year. She denies any abdominal pain. She does admit to difficulty eating and swallowing because of chronic coughing and as a consequence she eats very slowly. However there is no abdominal pain after eating. She does have some choking spells especially to food and pills. She had a pacemaker placement 2 months ago. She is not on any blood thinners at this time. ROS: General: No fever, chills, malaise, fatigue, weight loss or gain HEENT: No acute changes in vision or hearing Respiratory: No shortness of breath, cough, sputum production, hemoptysis Cardiovascular: No chest pain, palpitations, orthopnea Gastrointestinal: As per HPI Musculoskeletal: No dysuria, hematuria, incontinence Neuro: No extremity edema, myalgia Hematology: No easy bruising, bleeding Skin: No new skin rashes or lesions Medications: Current Outpatient Medications: ??? AMLODIPINE 5 MG tablet, TAKE 1 TABLET BY MOUTH DAILY, Disp: 90 tablet, Rfl: 1 ??? aspirin EC 81 MG EC tablet, Take 81 mg by mouth daily. Indications: Anticoagulant Therapy, Disp: , Rfl: ??? benazepril 20 MG tablet, Take 1 tablet (20 mg total) by mouth daily., Disp: 90 tablet, Rfl: 0 ??? Cholecalciferol (VITAMIN D) 2000 units Cap, Take 2,000 Units by mouth daily. Indications: Nutritional Support, Disp: , Rfl: ??? donepezil 10 MG Tab, Take two tabs PO QAM, Disp: , Rfl: ??? LEVOTHYROXINE 50 MCG tablet, TAKE 1 TABLET(50 MCG) BY MOUTH EVERY MORNING, Disp: 90 tablet, Rfl: 0 ??? METHENAMINE 1 g tablet, TAKE 1 TABLET(1 GRAM) BY MOUTH TWICE DAILY WITH MEALS, Disp: 60 tablet,Rfl: 3 ??? mirabegron ER (MYRBETRIQ) 50 MG 24 hr tablet, Take 1 tablet (50 mg total) by mouth daily., Disp: 30 tablet, Rfl: 3 ??? MYRBETRIQ 25 MG 24 hr tablet, TAKE 1 TABLET(25 MG) BY MOUTH DAILY, Disp: 30 tablet, Rfl: 3 ??? nitrofurantoin 50 MG capsule, Take 1 capsule (50 mg total) by mouth nightly at bedtime., Disp: 30 capsule, Rfl: 2 ??? OMEPRAZOLE 20 MG capsule, TAKE 1 CAPSULE(20 MG) BY MOUTH DAILY, Disp: 90 capsule, Rfl: 0 ??? PRAVASTATIN 40 MG tablet, TAKE 1 TABLET(40 MG) BY MOUTH EVERY NIGHT AT BEDTIME, Disp: 90 tablet, Rfl: 0 ??? risperiDONE 0.25 MG tablet, Take 0.25 mg by mouth nightly at bedtime., Disp: , Rfl: ??? sertraline 100 MG tablet, Take 100 mg by mouth every morning. Indications: Depression, Disp: , Rfl: ??? vitamin C 250 MG tablet, Take 250 mg by mouth daily., Disp: , Rfl: ??? cephALEXin 500 MG capsule, Take 1 capsule (500 mg total) by mouth 2 (two) times daily for 7 days., Disp: 14 capsule, Rfl: 0 Allergies: Allergies Allergen Reactions ??? Septra [Sulfamethoxazole-Trimethoprim] Rash Medical History: Past Medical History: Diagnosis Date ??? Bladder infection ??? Cancer (CMS/HCC) Past cancer survivor. ??? Diabetes (CMS/HCC) ??? GERD (gastroesophageal reflux disease) ??? Hyperlipidemia ??? Hypertension ??? Hypothyroidism ??? Insomnia ??? Sepsis (CMS/HCC) ??? SSS (sick sinus syndrome) (CMS/HCC) ??? Vitamin D deficiency ??? Weight loss Surgical History: Past Surgical History: Procedure Laterality Date ??? ABDOMINAL SURGERY ??? BREAST REDUCTION BILATERAL ??? CHOLECYSTECTOMY ??? COLONOSCOPY ??? HEMORRHOIDECTOMY ??? HYSTERECTOMY ??? INNER EAR SURGERY PROC UNLISTED ??? PACEMAKER 02/15/2020 [facility] ??? PACEMAKER ??? REPAIR ROTATOR CUFF,ACUTE Social History: Social History Socioeconomic History ??? Marital status: Spouse name: Not on file ??? Number of children: 7 ??? Years of education: Not on file ??? Highest education level: Not on file Occupational History Employer: RETIRED Social Needs ??? Financial resource strain: Not on file ??? Food insecurity Worry: Not on file Inability: Not on file ??? Transportation needs Medical: Not on file Non-medical: Not on file Tobacco Use ??? Smoking status: Never Smoker ??? Smokeless tobacco: Never Used Substance and Sexual Activity ??? Alcohol use: No Frequency: Never ??? Drug use: No ??? Sexual activity: Not on file Lifestyle ??? Physical activity Days per week: Not on file Minutes per session: Not on file ??? Stress: Not on file Relationships ??? Social connections Talks on phone: Not on file Gets together: Not on file Attends christianity service: Not on file Active member of club or organization: Not on file Attends meetings of clubs or organizations: Not on file Relationship status: Not on file ??? Intimate partner violence Fear of current or ex partner: Not on file Emotionally abused: Not on file Physically abused: Not on file Forced sexual activity: Not on file Other Topics Concern [...] Care Not Asked Social History Narrative Lives at home by herself for now, moving in with her daughter in October 2019 Family History: Family History Problem Relation Name Age of Onset ??? Diabetes Other ??? Breast Cancer Other ??? Other (cardiac disorder) Other ??? Heart Attack Mother ??? No Known Problems Father PE: Filed Vitals: 04/12/20 1258 BP: 139/88 Pulse: 65 Temp: 96.8 ??F (36 ??C) TempSrc: Temporal SpO2: 98% Weight: 48.5 kg (107 lb) Height: 5' 3 (1.6 m) PainSc: 0 (0-10 Scale) General: In NAD, pleasant and appropriate HEENT: Anicteric Cardiovascular: RRR, no m Pulmonary: CTA BL, no added sounds Abdomen: Soft, ND/NT, normoactive BS Skin: Anicteric, no rashes Neuro: A&Ox3 Labs: Labs Reviewed None Diagnoses/Impression: History of choking and some mild dysphagia to pills and food. 25 pound weight loss of unclear etiology. She had a negative colonoscopy in 2014. Recommendations and Plan: ?? EGD for possible dilation of the esophagus ?? All questions answered ?? More recommendations to follow endoscopic evaluation Risks/Benefits/Options: Patient presented with risks (can include but are not limited to: discomfort, missing lesions, allergic or adverse reaction to the sedation, perforation of the bowel which may require hospitaliztion and surgery, bleeding, infection, aspiration), benefits, and alternatives to the procedure(s) and they are in agreement to proceed as planned. NABILA FRANCISCO MD 04/12/2020 Voice recognition software utilized Y WHEEL WORKER * Nabila Francisco MD - 04/19/2020 7:48 AM CST HISTORY AND PHYSICAL INTERVAL NOTE: I have reviewed Roxana Ch History & Physical which was performed within the past 30 days. After examining Roxana Ch, no change has occurred in the patient's condition since the H&P was completed. Informed Consent Discussion: Potential benefits, risks, and side effects of the patient's procedure/surgery; the likelihood of the patient achieving his or her goals; and any potential problems that might occur during recuperation were discussed with the patient/family/personal event representative. Reasonable alternatives to the patient's proposed procedure/surgery including benefits, risks, and side effects related to the alternatives and the risks related to not receiving the proposed care were also discussed with the patient/family/personal event representative. Questions were answered and the patient/family/personal event representative verbalized understanding and desires to proceed. Y WHEEL WORKER Source Note - Nabila Francisco MD - 04/12/2020 1:00 PM EMERY WHEEL WORKER Images from the original note were not included. Gastroenterology Initial Visit Reason for Visit: Weight Loss (Losing weight for the past year and a lot of coughing.) History of Present Illness: 84-year-old female who was recently losing weight. Now she is lost about 25 pounds of weight over the past 1 year. She denies any abdominal pain. She does admit to difficulty eating and swallowing because of chronic coughing and as a consequence she eats very slowly. However there is no abdominal pain after eating. She does have some choking spells especially to food and pills. She had a pacemaker placement 2 months ago. She is not on any blood thinners at this time. ROS: General: No fever, chills, malaise, fatigue, weight loss or gain HEENT: No acute changes in vision or hearing Respiratory: No shortness of breath, cough, sputum production, hemoptysis Cardiovascular: No chest pain, palpitations, orthopnea Gastrointestinal: As per HPI Musculoskeletal: No dysuria, hematuria, incontinence Neuro: No extremity edema, myalgia Hematology: No easy bruising, bleeding Skin: No new skin rashes or lesions Medications: Current Outpatient Medications: ??? AMLODIPINE 5 MG tablet, TAKE 1 TABLET BY MOUTH DAILY, Disp: 90 tablet, Rfl: 1 ??? aspirin EC 81 MG EC tablet, Take 81 mg by mouth daily. Indications: Anticoagulant Therapy, Disp: , Rfl: ??? benazepril 20 MG tablet, Take 1 tablet (20 mg total) by mouth daily., Disp: 90 tablet, Rfl: 0 ??? Cholecalciferol (VITAMIN D) 2000 units Cap, Take 2,000 Units by mouth daily. Indications: Nutritional Support, Disp: , Rfl: ??? donepezil 10 MG Tab, Take two tabs PO QAM, Disp: , Rfl: ??? LEVOTHYROXINE 50 MCG tablet, TAKE 1 TABLET(50 MCG) BY MOUTH EVERY MORNING, Disp: 90 tablet, Rfl: 0 ??? METHENAMINE 1 g tablet, TAKE 1 TABLET(1 GRAM) BY MOUTH TWICE DAILY WITH MEALS, Disp: 60 tablet,Rfl: 3 ??? mirabegron ER (MYRBETRIQ) 50 MG 24 hr tablet, Take 1 tablet (50 mg total) by mouth daily., Disp: 30 tablet, Rfl: 3 ??? MYRBETRIQ 25 MG 24 hr tablet, TAKE 1 TABLET(25 MG) BY MOUTH DAILY, Disp: 30 tablet, Rfl: 3 ??? nitrofurantoin 50 MG capsule, Take 1 capsule (50 mg total) by mouth nightly at bedtime., Disp: 30 capsule, Rfl: 2 ??? OMEPRAZOLE 20 MG capsule, TAKE 1 CAPSULE(20 MG) BY MOUTH DAILY, Disp: 90 capsule, Rfl: 0 ??? PRAVASTATIN 40 MG tablet, TAKE 1 TABLET(40 MG) BY MOUTH EVERY NIGHT AT BEDTIME, Disp: 90 tablet, Rfl: 0 ??? risperiDONE 0.25 MG tablet, Take 0.25 mg by mouth nightly at bedtime., Disp: , Rfl: ??? sertraline 100 MG tablet, Take 100 mg by mouth every morning. Indications: Depression, Disp: , Rfl: ??? vitamin C 250 MG tablet, Take 250 mg by mouth daily., Disp: , Rfl: ??? cephALEXin 500 MG capsule, Take 1 capsule (500 mg total) by mouth 2 (two) times daily for 7 days., Disp: 14 capsule, Rfl: 0 Allergies: Allergies Allergen Reactions ??? Septra [Sulfamethoxazole-Trimethoprim] Rash Medical History: Past Medical History: Diagnosis Date ??? Bladder infection ??? Cancer (CMS/HCC) Past cancer survivor. ??? Diabetes (CMS/HCC) ??? GERD (gastroesophageal reflux disease) ??? Hyperlipidemia ??? Hypertension ??? Hypothyroidism ??? Insomnia ??? Sepsis (CMS/HCC) ??? SSS (sick sinus syndrome) (CMS/HCC) ??? Vitamin D deficiency ??? Weight loss Surgical History: Past Surgical History: Procedure Laterality Date ??? ABDOMINAL SURGERY ??? BREAST REDUCTION BILATERAL ??? CHOLECYSTECTOMY ??? COLONOSCOPY ??? HEMORRHOIDECTOMY ??? HYSTERECTOMY ??? INNER EAR SURGERY PROC UNLISTED ??? PACEMAKER 02/15/[address] [facility] ??? PACEMAKER ??? REPAIR ROTATOR CUFF,ACUTE Social History: Social History Socioeconomic History ??? Marital status: Spouse name: Not on file ??? Number of children: 7 ??? Years of education: Not on file ??? Highest education level: Not on file Occupational History Employer: RETIRED Social Needs ??? Financial resource strain: Not on file ??? Food insecurity Worry: Not on file Inability: Not on file ??? Transportation needs Medical: Not on file Non-medical: Not on file Tobacco Use ??? Smoking status: Never Smoker ??? Smokeless tobacco: Never Used Substance and Sexual Activity ??? Alcohol use: No Frequency: Never ??? Drug use: No ??? Sexual activity: Not on file Lifestyle ??? Physical activity Days per week: Not on file Minutes per session: Not on file ??? Stress: Not on file Relationships ??? Social connections Talks on phone: Not on file Gets together: Not on file Attends christianity service: Not on file Active member of club or organization: Not on file Attends meetings of clubs or organizations: Not on file Relationship status: Not on file ??? Intimate partner violence Fear of current or ex partner: Not on file Emotionally abused: Not on file Physically abused: Not on file Forced sexual activity: Not on file Other Topics Concern [...] Care Not Asked Social History Narrative Lives at home by herself for now, moving in with her daughter in October 2019 Family History: Family History Problem Relation Name Age of Onset ??? Diabetes Other ??? Breast Cancer Other ??? Other (cardiac disorder) Other ??? Heart Attack Mother ??? No Known Problems Father PE: Filed Vitals: 04/12/20 1258 BP: 139/88 Pulse: 65 Temp: 96.8 ??F (36 ??C) TempSrc: Temporal SpO2: 98% Weight: 48.5 kg (107 lb) Height: 5' 3 (1.6 m) PainSc: 0 (0-10 Scale) General: In NAD, pleasant and appropriate HEENT: Anicteric Cardiovascular: RRR, no m Pulmonary: CTA BL, no added sounds Abdomen: Soft, ND/NT, normoactive BS Skin: Anicteric, no rashes Neuro: A&Ox3 Labs: Labs Reviewed None Diagnoses/Impression: History of choking and some mild dysphagia to pills and food. 25 pound weight loss of unclear etiology. She had a negative colonoscopy in 2014. Recommendations and Plan: ?? EGD for possible dilation of the esophagus ?? All questions answered ?? More recommendations to follow endoscopic evaluation Risks/Benefits/Options: Patient presented with risks (can include but are not limited to: discomfort, missing lesions, allergic or adverse reaction to the sedation, perforation of the bowel which may require hospitaliztion and surgery, bleeding, infection, aspiration), benefits, and alternatives to the procedure(s) and they are in agreement to proceed as planned. NABILA FRANCISCO MD 04/12/2020 Voice recognition software utilized Y WHEEL WORKER documented in this encounter OR Notes * Op Note - Nabila Francisco MD - 04/19/2020 8:51 AM CST [facility] OpNote EGD WITH DILATION Procedure Note Roxana Ch 04/19/2020 0802 Procedure(s) (LRB): EGD WITH DILATION (N/A) Surgeon(s): Nabila Francisco MD Staff: Circulating Nurse 1: Yudelka Mott RN Scrub Person 1: Bianca Urbina RN Anesthesia: Monitor Anesthesia Care INSTRUCTIONAL SUPPORT SPECIALIST: Leticia Valdivia CRNA Pre-Op Diagnosis: dysaphagia, choking and weight loss Post-Op Diagnosis: Upper esophageal stricture. Redding dilation performed. Procedure Description: Informed consent was obtained earlier. Patient was brought to the OR and placed in supine lateral decubitus position and sedated under MAC anesthesia. GIF 190 gastroscope lubricated inserted into the hypopharynx and advanced by direct technique. Upper middle distal esophagus was carefully examined. There was some mild resistance and stricture at the upper esophagus. The distal esophagus all looks normal. GE junction was normal. Stomach distended well. Retroflexed views ofthe cardia fundus angularis revealed no abnormalities. Antrum looked normal. The first and second part of the duodenum looked normal. Scope withdrawn. Next a 38 Irish Redding dilator was lubricated inserted for single pass with some mild resistance. This was followed by a 40 Irish Redding. This was then followed by a 42 Irish Redding dilation with no complications of heme. Findings: Benign stricture in the upper esophagus is the likely cause of her choking. Rest of the examination was negative for. Incremental Redding dilation from 38, 40, 42 dilation performed of the esophagus. Plan: Advance diet and see how she does. Complications: None Estimated Blood Loss: * No values recorded between 04/19/2020 8:37 AM and 04/19/2020 8:49 AM * Specimens:* No orders in the log * Voice recognition software utilized. NABILA FRANCISCO MD Date: 04/19/2020 Time: 8:52 AM Voice recognition software utilized. Y WHEEL WORKER documented in this encounter Plan of Treatment Not on file documented as of this encounter Goals Goal Patient Goal Type Associated Problems Recent Progress Patient-Stated? Author Improve Home Support System General No Laura Cheatham, RN Return home with [facility] home health General No Malgorzata Brown [employer] P[employer]ER HOME WITH DAUGHTER General No Laura Cheatham RN documented as of this encounter Procedures Procedure Name Priority Date/Time Associated Diagnosis Comments EGD WITH DILAT STRICTURE 04/19/2020 8:37 AM EMERY WHEEL WORKER Dysphagia, unspecified type Choking Weight loss Special Needs 0700 documented in this encounter Visit Diagnoses Diagnosis Dysphagia, unspecified type Choking Foreign body in larynx Weight loss Loss of weight Dysphagia, unspecified type Choking Foreign body in larynx Weight loss Loss of weight documented in this encounter Admitting Diagnoses Diagnosis Dysphagia, unspecified type Choking Foreign body in larynx Weight loss Loss of weight documented in this encounter Administered Medications Inactive Administered Medications - up to 3 most recent administrations Medication Order MAR Action Action Date Dose Rate Site sodium chloride 0.9% infusion at 10 mL/hr, Intravenous, Continuous, Starting on Wed04/19/20 at 0715, Until Wed04/19/20 at 1137, Infuse at TKO rate. Use mini-drip tubing for ESRD patients., Pre-Op New Bag 04/19/2020 8:37 AM EMERY WHEEL WORKER New Bag 04/19/2020 7:22 AM EMERY WHEEL WORKER 10 mL/hr documented in this encounter Active and Recently Administered Medications Times are shown in EMERY WHEEL WORKER. Continuous Medication Order 04/17/2020 04/18/2020 04/19/2020 sodium chloride 0.9% infusion at 10 mL/hr, Intravenous, Continuous, Starting on Wed04/19/20 at 0715, Until Wed04/19/20 at 1137, Infuse at TKO rate. Use mini-drip tubing for ESRD patients., Pre-Op 0722 (New Bag - Prov ider: Patricia Burrell RN)0837 (New Bag - Provider: Leticia Valdivia CRNA)0909 (Infusion Stop Time - Provider: Patricia Burrell RN) documented in this encounter Care Teams Substation Design Draftsperson Relationship Specialty Start Date End Date [facility] [address] [id number] PCP - General INTERNAL MEDICINE 08/23/18 03/03/23 Joni Mckeon MD [facility]. [address] [address] [facility] Public Health Representative CARDIOVASCULAR DISEASE 07/04/18 documented as of this encounter
--- OUTSIDE RECORDS SUMMARY | 2024-04-05 00:13 | XMS_ITS | Encounter Summary ---
Author Organization [facility] Address [address] [place] [address]. [place] [address] [place] [address] Care Team Providers Care Penal Officer Name Role Phone Joni Mckeon MD Unavailable [phone] Noemi Barnard MD Primary Care Provider [phone] Reason for Visit * Reason Onset Date Comments Question 07/15/2020 Encounter Details Date Type Department Care Team (Late st Contact Info) Description 07/15/[address] [address] Elza Alejo RN Question Social History Tobacco Use Types [...] documented in this encounter Progress Notes * Elza Alejo RN - 07/15/2020 7:45 AM CDT Calling Roxana, to get a manual transmission. Son-in-law assisted with transmission. Carbon Pacemaker Remote 07/15/20. Transmission attached. Stable battery, atrial and RV pacing and sensing threshold. AP %: 66, MUSIC INTERNSHIP %: 7 (0) AT/AF episodes. (0) Ventricular arrhythmias detected. Presenting AP/VS. MEDS: ASA and Inderal Follow up: [place] 09/16/2020 * Elza Alejo RN - 07/15/2020 7:45 AM CDT ----- Message from Joni Mckeon MD sent at 07/14/2020 1:58 PM CDT ----- Could you do a silvio transmission on her documented in this encounter Plan of Treatment Not on file documented as of this encounter Goals Goal Patient Goal Type Associated Problems Recent Progress Patient-Stated? Author Improve Home Support System General No Laura Cheatham, RN Return home with [facility] home health General No Malgorzata Brown, AUTOMOTIVE WORKER HOME WITH DAUGHTER General No Laura Cheatham, RN documented as of this encounter Visit Diagnoses Not on filedocumented in this encounter Care Teams Penal Officer Relationship Specialty Start Date End Date Noemi Barnard MD Three [facility]. [facility] [address] [place], [place] [id number] PCP - General INTERNAL MEDICINE 08/23/18 03/03/23 Joni Mckeon MD Three [facility]. [facility] [address] [place], [place] [id number] [place] Grinding Machine Operator Automatic CARDIOVASCULAR DISEASE 07/04/18 documented as of this encounter
--- OUTSIDE RECORDS SUMMARY | 2024-04-05 00:13 | XMS_ITS | Encounter Summary ---
Author Organization [facility] Address [address] [place] [address]. [place] [address] [place] [address] Care Team Providers Care Alteration Specialist Name Role Phone Joni Mckeon MD Unavailable [phone] Noemi Barnard MD Primary Care Provider [phone] Encounter Details Date Type Department Care Team (Latest Contact Info) Description 07/29/2020 Scan HEALTH INFO SRVCS Scanned, Documents Social [...] on filedocumented in this encounter Care Teams Alteration Specialist Relationship Specialty Start Date End Date Noemi Barnard MD [facility]. [facility] [address] [place] [address] PCP - General INTERNAL MEDICINE 08/23/18 03/03/23 Joni Mckeon MD [facility]. [facility] [address] [place] [address] [place] Broke Beater Operator CARDIOVASCULAR DISEASE 07/04/18 documented as of this encounter
--- OUTSIDE RECORDS SUMMARY | 2024-04-05 00:13 | XMS_ITS | Encounter Summary ---
Author Organization [facility] Address [facility] [place] [address] [place] [address] Care Team Providers Care Mechanical Expert Name Role Phone Joni Mckeon MD Unavailable [phone] Noemi Barnard MD Primary Care Provider [phone] Encounter Details Date Type Department Care Team (Latest Contact Info) Description 05/30/2020 2:03 PM DIVING FISHER - 05/30/2020 11:59 PM [facility] Hospital Encounter [facility] [address] [place] [address] Charmaine Allen, APNP [address] [place] [address] Discharge Disposition: Home or Self Care (Routine [...] COVID-19? No / Unsure 05/30/2020 2:02 PM DIVING FISHER documented as of this encounter Functional Status [...] MOUTH EVERY MORNING 90 tablet 04/02/2020 1 memantine ER 14 MG 24 hr capsule Take 14 mg by mouth daily. Take this dosage for 1 month then increase to 28 mg PO daily 1 METHENAMINE 1 g tabletIndication s:Recurrent UTI [...] BY MOUTH DAILY 90 capsule 12/06/2019 1 pravastatin 40 MG tabletIndication s:Hyperlipidemia TAKE 1 TABLET(40 MG) BY MOUTH EVERY NIGHT AT BEDTIME 90 tablet 05/21/2020 1 propranolol 10 MG tablet Take 10 mg by mouth 2 (two) times daily. 1 risperiDONE 1 MG tablet Take 1 mg by mouth nightly at bedtime. 1 documented as of this encounter Plan of Treatment Not on file documented as of this encounter Goals Goal Patient Goal Type Associated Problems Recent Progress Patient-Stated? Author Improve Home Support System General No Laura Cheatham RN Return home with [facility] home health General No Klaus Brownle M, CARE TECH HOME WITH DAUGHTER General No Laura Cheatham, RN documented as of this encounter Visit Diagnoses Diagnosis Need for prophylactic vaccination against viral disease- Primary Need for prophylactic vaccination and inoculation against other viral diseases documented in this encounter Care Teams Mechanical Expert Relationship Specialty Start Date End Date Noemi Barnard MD [facility]. [address] [address] PCP - General INTERNAL MEDICINE 08/23/18 03/03/23 Joni Mckeon MD [facility] [address] [address] [place] Chestnut Tanner CARDIOVASCULAR DISEASE 07/04/18 documented as of this encounter
--- OUTSIDE RECORDS SUMMARY | 2024-04-05 00:13 | XMS_ITS | Encounter Summary ---
Author Organization [facility] Address [address] [place] [address]. [place] [address] [place] [address] Care Team Providers Care Custom Stock Maker Name Role Phone Joni Mckeon MD Unavailable [phone] Noemi Barnard MD Primary Care Provider [phone] Encounter Details Date Type Department Care Team (Latest Contact Info) Description 05/30/2020 Travel Social History Tobacco Use Types Packs/Day [...] COVID-19? No / Unsure 05/30/2020 2:02 PM WAXING MACHINE OPERATOR documented as of this encounter Functional [...] Laura Cheatham, RN Return home with [facility] home health General No Malgorzata Brown, CONSTRUCTION CRAFT LABORER HOME WITH DAUGHTER General No Laura Cheatham, RN documented as of this encounter Visit Diagnoses Not on filedocumented in this encounter Care Teams Custom Stock Maker Relationship Specialty Start Date End Date Noemi Barnard MD [facility]. [address] [address] PCP - General INTERNAL MEDICINE 08/23/18 03/03/23 Joni Mckeon MD Three [facility]. [facility] [address] [place] [address] [place] Jowl Trimmer CARDIOVASCULAR DISEASE 07/04/18 documented as of this encounter
--- OUTSIDE RECORDS SUMMARY | 2024-04-05 00:13 | XMS_ITS | Encounter Summary ---
Author Organization [facility] Address [address] [place] [address]. [place] [address] [place] [address] Care Team Providers Care Pet Counselor Name Role Phone Joni Mckeon MD Unavailable [phone] Noemi Barnard MD Primary Care Provider [phone] Encounter Details Date Type Department Care Team (Latest Contact Info) Description 06/18/2020 Scan HEALTH INFO SRVCS Scanned, Documents Social [...] No Laura Cheatham, RN Return home with [facility] home health General No Malgorzata Brown MSW HOME WITH DAUGHTER General No Laura Cheatham, RN documented as of this encounter Visit Diagnoses Not on filedocumented in this encounter Care Teams Pet Counselor Relationship Specialty Start Date End Date Noemi Barnard MD [facility]. [facility] [address] [place] [address] PCP - General INTERNAL MEDICINE 08/23/18 03/03/23 Joni Mckeon MD [facility]. [facility] [address] [place] [address] [place] Life Skills Coordinator Volunteer CARDIOVASCULAR DISEASE 07/04/18 documented as of this encounter
--- OUTSIDE RECORDS SUMMARY | 2024-04-05 00:13 | XMS_ITS | Encounter Summary ---
Author Organization [facility] Address [address] [place] [address]. [place] [address] [place] [address] Care Team Providers Care Mechanical Assembler Name Role Phone Joni Mckeon MD Unavailable [phone] Noemi Barnard MD Primary Care Provider [phone] Encounter Details Date Type Department Care Team (Latest Contact Info) Description 04/30/2020 Travel Social History Tobacco Use Types Packs/Day [...] have Coronavirus / COVID-19? No / Unsure 04/30/2020 1:15 PM CROWN AND BRIDGE TECHNICIAN documented as of this encounter Functional Status [...] No Laura Cheatham, RN Return home with [facility] home health General No Malgorzata Brown, BANDING MACHINE OPERATOR HOME WITH DAUGHTER General No Laura Cheatham, RN documented as of this encounter Visit Diagnoses Not on filedocumented in this encounter Care Teams Mechanical Assembler Relationship Specialty Start Date End Date Noemi Barnard MD [facility]. [address] [address] PCP - General INTERNAL MEDICINE 08/23/18 03/03/23 Joni Mckeon MD Three [facility]. [facility] [address] [place] [address] [employer] [employer] Special Ed Teacher CARDIOVASCULAR DISEASE 07/04/18 documented as of this encounter
--- OUTSIDE RECORDS SUMMARY | 2024-04-05 00:13 | XMS_ITS | Encounter Summary ---
Author Organization [facility] Address [address] [place] [address]. [place] [address] [place] [address] Care Team Providers Care Manufacturing Project Engineer Name Role Phone Joni Mckeon MD Unavailable [phone] Noemi Barnard MD Primary Care Provider [phone] Encounter Details Date Type Department Care Team (Latest Contact Info) Description 08/05/2020 1:11 PM CDT - 08/05/2020 11:59 PM CDT Hospital Encounter [facility]ography [address] [place], [place] [id number] [place] [address] [place], [place] [id number] Discharge Disposition: Home or Self Care (Routine [...] capsule Take 28 mg by mouth daily. rOPINIRole 2 MG tablet Take 2 mg [...] as of this encounter Plan of Treatment Scheduled Orders Name Type Priority Associated Diagnoses Orde r Schedule US BREAST RT BIRAD LTD Ultrasound Routine Abnormal mammogram Once for 1 Occurrences starting 08/05/2020 until 08/05/2020 documented as of this encounter Goals Goal Patient Goal Type Associated Problems Recent Progress Patient-Stated? Author Improve Home Support System General No Laura Cheatham, RN Return home with [facility] home health General No Malgorzata Brown, GRINDER OPERATOR HOME WITH DAUGHTER General No Laura Cheatham RN documented as of this encounter Procedures Procedure Name Priority Date/Time Associated Diagnosis Comments MG MEHDI Chi SEAN LAURA DIGI Routine 08/05/2020 2:08 PM CDT Abnormal mammogram documented in this encounter Visit Diagnoses Diagnosis Abnormal mammogram Abnormal mammogram, unspecified documented in this encounter Care Teams Manufacturing Project Engineer Relationship Specialty Start Date End Date Noemi Barnard MD Three [facility]. [address] [address] PCP - General INTERNAL MEDICINE 08/23/18 03/03/23 Joni Mckeon MD Three [facility]. [facility] [address] [place] [address] [place] Dresser CARDIOVASCULAR DISEASE 07/04/18 documented as of this encounter
--- OUTSIDE RECORDS SUMMARY | 2024-04-05 00:13 | XMS_ITS | Encounter Summary ---
Author Organization [facility] Address [address] [place] [address]. [place] [address] [place] [address] Care Team Providers Care Deputy Sheriff Custody Name Role Phone Joni Mckeon MD Unavailable [phone] Noemi Barnard MD Primary Care Provider [phone] Encounter Details Date Type Department Care Team (Latest Contact Info) Description 07/10/2020 Travel Social History Tobacco Use Types Packs/Day [...] CENTER home health General No Malgorzata Brown, POWER SCREWDRIVER OPERATOR HOME WITH DAUGHTER General No Laura Cheatham, RN documented as of this encounter Visit Diagnoses Not on filedocumented in this encounter Care Teams Deputy Sheriff Custody Relationship Specialty Start Date End Date Noemi Barnard MD [facility]. [facility] [address] [place] [address] PCP - General INTERNAL MEDICINE 08/23/18 03/03/23 Joni Mckeon MD Three [facility] [address] [place] [address] [place] School Bus Driver/Mechanic CARDIOVASCULAR DISEASE 07/04/18 documented as of this encounter
--- OUTSIDE RECORDS SUMMARY | 2024-04-05 00:13 | XMS_ITS | Encounter Summary ---
Author Organization [facility] Address [address] [place] [address]. [place] [address] [place] [address] Care Team Providers Care County Adviser Name Role Phone Joni Mckeon MD Unavailable [phone] Noemi Barnard MD Primary Care Provider [phone] Encounter Details Date Type Department Care Team (Latest Contact Info) Description 07/29/2020 Travel Social History Tobacco Use Types Packs/Day [...] Cheatham, RN Return home with [facility] home health General No Malgorzata Brown, ENGINEERING PROFESSOR HOME WITH DAUGHTER General No Laura Cheatham, RN documented as of this encounter Visit Diagnoses Not on filedocumented in this encounter Care Teams County Adviser Relationship Specialty Start Date End Date Noemi Barnard MD [facility]. [facility] [address] [place] [address] PCP - General INTERNAL MEDICINE 08/23/18 03/03/23 Joni Mckeon MD Three [facility]. [facility] [address] [place] [address] [place] Pewter Finisher CARDIOVASCULAR DISEASE 07/04/18 documented as of this encounter
--- OUTSIDE RECORDS SUMMARY | 2024-04-05 00:13 | XMS_ITS | Encounter Summary ---
Author Organization [facility] Address [address] [place] [address]. [place] [address] [place] [address] Care Team Providers Care Bushwalking Guide Name Role Phone Joni Mckeon MD Unavailable [phone] Noemi Barnard MD Primary Care Provider [phone] Encounter Details Date Type Department Care Team (Latest Contact Info) Description 04/19/2020 Travel Social History Tobacco Use Types Packs/Day [...] COVID-19? No / Unsure 04/19/2020 6:40 AM CHILD CARE ASSOCIATE documented as of this encounter Functional Status [...] No Laura Cheatham, RN Return home with [facility] home health General No Malgorzata Brown, SENIOR DIRECTOR FINANCE HOME WITH DAUGHTER General No Laura Cheatham, RN documented as of this encounter Visit Diagnoses Not on filedocumented in this encounter Care Teams Bushwalking Guide Relationship Specialty Start Date End Date Noemi Barnard MD [facility]. [address] [address] PCP - General INTERNAL MEDICINE 08/23/18 03/03/23 Joni Mckeon MD Three [facility]. [facility] [address] [place] [address] [place] Early Childhood Assistant CARDIOVASCULAR DISEASE 07/04/18 documented as of this encounter
--- OUTSIDE RECORDS SUMMARY | 2024-04-05 00:13 | XMS_ITS | Encounter Summary ---
Author Organization [facility] Address [address] [place] [address]. [place] [address] [place] [address] Care Team Providers Care Trauma Nurse Name Role Phone Joni Mckeon MD Unavailable [phone] Noemi Barnard MD Primary Care Provider [phone] Reason for Visit * Reason Onset Date Comments Pre-visit Gap Closure 07/03/2020 Encounter Details Date Type Department Care Team (Late st Contact Info) Description 07/03/2020 Telephone [place] [facility] eld [address] [place] [address] Robe Winter, RN Pre-visit Gap Closure Social History Tobacco Use [...] [facility] General No Malgorzata Brown MSW HOME WITH [facility] General No Laura Cheatham, RN documented as of this encounter Visit Diagnoses Not on filedocumented in this encounter Care Teams Trauma Nurse Relationship Specialty Start Date End Date Noemi Barnard MD [address] [address] PCP - General INTERNAL MEDICINE 08/23/18 03/03/23 Joni Mckeon MD [facility] [address] [place] [address] [place] Body Shop Technician CARDIOVASCULAR DISEASE 07/04/18 documented as of this encounter
--- OUTSIDE RECORDS SUMMARY | 2024-04-05 00:13 | XMS_ITS | Encounter Summary ---
Author Organization [facility] Address [address] [place] [address]. [place] [address] [place] [address] Care Team Providers Care Sales Consultant Residential Manager Name Role Phone Joni Mckeon MD Unavailable [phone] Noemi Barnard MD Primary Care Provider [phone] Reason for Visit * Reason Comments Remote Device Check Encounter Details Date Type Department Care Team (Late st Contact Info) Description 09/16/2020 8:25 AM CDT Allied Health/Nurse Visit [place] [facility] [facility] THREE [facility], [facility] [address] [place], [place] [id number] Cruzito Mcnulty MD [facility]. [facility] [address] [place], [place] [id number] Remote Device Check Social History Tobacco Use Types Packs/Day Years [...] documented in this encounter Progress Notes * Melody Bucio RN - 09/16/2020 8:25 AM CDT Routine [place] Pacemaker Remote. Transmission attached. Stable battery, atrial and RV pacing and sensing threshold. AP %: 64, AGRICULTURAL ENGINEERING TECHNOLOGIST %: 6.8 (0) AT/AF episodes. (0) Ventricular arrhythmias detected. Presenting AP/VS swith PAC. MEDS: ASA Follow up: [place] 12/16/2020 Cosigned by Cruzito Mcnulty MD at 09/23/2020 4:33 PM CDT documented in this encounter Plan of Treatment Not on file documented as of this encounter Goals Goal Patient Goal Type Associated Problems Recent Progress Patient-Stated? Author Improve Home Support System General No Laura Cheatham, RN Return home with [facility] home health General No IzzyoneilMalgorzata, STATION CASHIER HOME WITH DAUGHTER General No Laura Cheatham, RN documented as of this encounter Visit Diagnoses Not on filedocumented in this encounter Care Teams Sales Consultant Residential Manager Relationship Specialty Start Date End Date Noemi Barnard MD Three [facility]. [facility] [address] [place], [place] [id number] PCP - General INTERNAL MEDICINE 08/23/18 03/03/23 Joni Mckeon MD Three [facility]. [facility] [address] [place] [address] [place] Boiler Testing Technician CARDIOVASCULAR DISEASE 07/04/18 documented as of this encounter
--- OUTSIDE RECORDS SUMMARY | 2024-04-05 00:13 | XMS_ITS | Encounter Summary ---
Author Organization [facility] Address [address] [place] [address]. [place], [place] [address] [place] [address] Care Team Providers Care Program Writer Name Role Phone Joni Mckeon MD Unavailable [phone] Noemi Barnard MD Primary Care Provider [phone] Reason for Referral * Imaging (Routine) - Closed Specialty Diagnoses / Procedures Referred By Contac t Referred To Contact RADIOLOGY Diagnoses Breast cancer screening by mammogram Procedures MG SCREENING [place] [address] [place] [address] Phone: tel: fax: Referral ID Status Reason Start Date Expiration Date Visits Re quested Visits Authorized [id number] Closed 07/26/2020 08/25/2021 1 1 * Imaging (Routine) - Closed Specialty Diagnoses / Procedures Referred By Contac t Referred To Contact RADIOLOGY Diagnoses Post-menopause Procedures BONE DENSITY/[place] [address] [place] [address] Phone: tel: fax: Referral ID Status Reason Start Date Expiration Date Visits Re quested Visits Authorized [id number] Closed 07/10/2020 08/09/2021 1 1 Reason for Visit * Reason Comments Follow Up 6 month Encounter Details Date Type Department Care Team (Late st Contact Info) Description 07/10/2020 10:40 AM CDT Office Visit [facility] [address] [place] [address] [place] [address] [place] [address] Follow Up (6 month ) Social History Tobacco Use Types Packs/Day [...] Sign Reading Time Taken Comments Blood Pressure 142/62 07/10/2020 10:43 AM CDT Pulse 62 07/10/2020 10:43 AM CDT Temperature - - Respiratory Rate - - Oxygen Saturation 97% 07/10/2020 10:43 AM CDT Inhaled Oxygen Concentration - - Weight 51.5 kg (113 lb 9.6 oz) 07/10/2020 10:43 AM CDT Height - - Body Mass Index 20.12 06/17/2020 9:33 AM CDT documented in this [...] AM CDT Laila Lujan R Lolly Active * Do you have difficulty dressing [...] encounter Progress Notes * DEEPALI Macias - 07/10/2020 10:40 AM CDT Images from the original note were not included. _ Reason for Visit: Follow Up (6 month ) History of Present Illness: NATASHA Roxana Ch is a 84-year-old female here for evaluation of her ongoing problems include hypertension hypothyroidism hyperlipidemia. She has had a low vitamin Din the past and she was diabetic in the past but since weight reduction she has not been having issues with her diabetes. Talk to her daughter who her that we would check hemoglobin A1c today and seeif her sugars are still under good control if so will take that diabetes off of her active list. She is going to the eye doctor next week and is already scheduled for on her birthday on [birth year] so there can have the eye doctor send us a copy of her evaluation. ROS: Review of Systems Feeling well. Denies [...] well. No significant weight gain or loss. No fatigue. Medications: Outpatient Medications Marked as Taking for the 07/10/20 encounter (Office Visit) with DEEPALI Macias Medication Sig Dispense Refill ??? AMLODIPINE 5 MG tablet TAKE 1 TABLET BY MOUTH DAILY 90 tablet 1 ??? aspirin EC 81 MG EC tablet Take 81 mg by mouth daily. Indications: Anticoagulant Therapy ??? BENAZEPRIL 20 MG tablet TAKE 1 TABLET(20 MG) BY MOUTH DAILY 90 tablet 1 ??? Cholecalciferol (VITAMIN D) 2000 units Cap Take 2,000 Units by mouth daily. Indications: Nutritional Support ??? donepezil 10 MG Tab Take two tabs PO QAM ??? LEVOTHYROXINE 50 MCG tablet TAKE 1 TABLET(50 MCG) BY MOUTH EVERY MORNING 90 tablet 0 ??? memantine ER 28 MG 24 hr capsule Take 28 mg by mouth daily. ??? METHENAMINE 1 g tablet TAKE 1 TABLET(1 GRAM) BY MOUTH TWICE DAILY WITH MEALS 60 tablet 3 ??? mirabegron ER (MYRBETRIQ) 50 MG 24 hr tablet Take 1 tablet (50 mg total) by mouth daily. 30 tablet 3 ??? omeprazole 20 MG capsule Take 1 capsule (20 mg total) by mouth daily. 90 capsule 0 ??? pravastatin 40 MG tablet TAKE 1 TABLET(40 MG) BY MOUTH EVERY NIGHT AT BEDTIME 90 tablet 0 ??? risperiDONE 1 MG tablet Take 1 mg by mouth nightly at bedtime. ??? rOPINIRole 1 MG tablet Take 1 mg by mouth nightly at bedtime. ??? sertraline 100 MG tablet Take 100 mg by mouth every morning. Indications: Depression ??? vitamin C 250 MG tablet Take 250 mg by mouth daily. Allergies Allergen Reactions ??? Septra [Sulfamethoxazole-Trimethoprim] Rash [...] Other (Not Specified) ??? Mother ??? Father Physical Exam Constitutional: Patient is oriented to person, place, and time. Patient appears well-developed and well-nourished. HENT: Right Ear: External ear normal. Left [...] Patient exhibits no edema, tenderness or deformity. Lymphadenopathy: Patient has no cervical adenopathy. Neurological: Patient is alert and oriented to person, place, and time. Skin: No rash noted. No erythema. Psychiatric: Patient has a normal mood and affect. The behavior is normal. Thought content normal. Diabetes Management 07/10/2020 Diabetes Type DM 2 / Diet Patient Frequency of Testing 1X/day Foot Exam (visual each visit; comprehensive yearly) Visual inspection;Monofilament;Pulse exam of foot Last Foot Exam? 07/10/2020 Foot Exam Result Normal Last Diabetic Eye Exam? (No Data) Vitals: 07/10/20 1043 Patient Position: Sitting BP Location: Right arm BP: 142/62 Pulse: 62 Body mass index is 20.12 kg/m??. Assessment and Plan Encounter Diagnose(s) ICD-10-CM ICD-9-CM SNOMED CT(R) 1. Essential hypertension I10 401.9 ESSENTIAL HYPERTENSION CBC W/DIFF AUTOMATED VENIPUNC ARM DRAW 2. Hypothyroidism, unspecified type E03.9 244.9 HYPOTHYROIDISM TSH W/REFLEX VENIPUNC ARM DRAW 3. Mixed hyperlipidemia E78.2 272.2 MIXED HYPERLIPIDEMIA COMPREHENSIVE METABOLIC PANEL LIPID PANEL VENIPUNC ARM DRAW 4. Vitamin D deficiency E55.9 268.9 VITAMIN D DEFICIENCY VITAMIN D, 25 OH VENIPUNC ARM DRAW 5. Type 2 diabetes mellitus with stage 3 chronic kidney disease, without long- term current use of insulin, unspecified whether stage 3a or 3b CKD ([facility]) E11.22 250.40 TYPE 2 DIABETES MELLITUS CBC W/DIFF AUTOMATED N18.30 585.3 HEMOGLOBIN, GLYCOSYLATED VENIPUNC ARM DRAW 6. Breast cancer screening by mammogram Z12.31 V76.12 PATIENT ENCOUNTER STATUS MG SCREENING KARLA DIGI 7. Post-menopause Z78.0 V49.81 POSTMENOPAUSAL STATE BONE DENSITY/DEXA There are no diagnoses linked to this encounter. Orders Placed This Encounter ??? VENIPUNC ARM DRAW ??? CBC W/DIFF AUTOMATED ??? VITAMIN D, 25 OH ??? TSH W/REFLEX ??? COMPREHENSIVE METABOLIC PANEL ??? LIPID PANEL ??? HEMOGLOBIN, GLYCOSYLATED ??? MG SCREENING KARLA DIGI ??? BONE DENSITY/DEXA Patient should follow annual wellness exams recommended for age and sex of patient. Items to consider but not limited included yearly annual fasting labs, colonscopy or cologuard when indicated. PSA and prostate for males. Mammogram and female exam for females, Kamila Granger PA-C evaluated and Dr Scott Cabello reviewed and agrees with plan. Cosigned by Scott Cabello MD at 07/11/2020 7:34 AM CDT documented in this encounter Plan of Treatment Not on file documented as of this encounter Goals Goal Patient Goal Type Associated Problems Recent Progress Patient-Stated? Author Improve Home Support System General No Laura Cheatham, RN Return home with [facility] home health General No IzzyoneilMalgorzata, COLLAR SETTER [employer] HOME WITH DAUGHTER General No Laura Cheatham, RN documented as of this encounter Procedures Procedure Name Priority Date/Time Associated Diagnosis Comments MG SCREENING W SEAN KARLA DIGI Routine 07/29/2020 12:27 PM CDT Breast cancer screening by mammogram COLLECTION VENOUS BLOOD VENIPUNCTURE Routine 07/10/2020 11:42 AM CDT Essential hypertension Hypothyroidism, unspecified type Mixed hyperlipidemia Vitamin D deficiency Type 2 diabetes mellitus with stage 3 chronic kidney disease, without long-term current use of insulin, unspecified whether stage 3a or 3b CKD (CMS/HCC HHS/HCC) documented in this encounter Results * MG SCREENING W SEAN KARLA DIGI (07/29/2020 12:27 PM CDT) Anatomical Region Laterality Modality Breast Bilateral Mammography 07/29/2020 3:41 PM CDT Impressions 2020 7:44 AM CDT IMPRESSION: 1. Recommend bilateral breast diagnostic evaluation. 2. BI-RADS Category 0 - needs additional imaging evaluation. 3. TISSUE TYPE: Category C: The breasts are heterogeneously dense, which may obscure small masses. MQSA BI-RADS Categories: Category 0 - needs [...] interpreted with computer aided detection. Referred By: KAMILA GRANGER Interpreted By: Vaughn Moreira, 07/29/2020 3:41 PM Narrative 2020 7:44 AM CDT IMAGING STUDIES: ??MG SCREENING W SEAN KARLA DIGI ? DATE: ??07/29/2020 12:01 PM HISTORY: ??Screening ?84-year-old female for screening study. History of left breast cancer with lumpectomy in 2011 and subsequent radiation therapy. Bilateral breast reduction in 2012. COMPARISON: Screening mammogram 11/30/2018 and 11/11/2017. DISCUSSION: Bilateral digital screening mammogram with CAD. ??Standard mammographic views. Additional left MLO view. 2-D imaging and 3-D tomography. Heterogeneously dense breast parenchymal pattern limiting sensitivity of mammography. General breast parenchymal density slightly increased since 2019. Benign calcifications bilaterally including vascular calcification. Right chest implanted device toward the axillary region. Suggestion of architectural distortion and possible adjacent nodular density in the right breast subareolar region on CC view approximately 3-5 cm from the nipple. It is not as well demonstrated on the MLO view but by CC tomographic level is in the upper breast. Recommend diagnostic mammogram with spot compression imaging and possible ultrasound for evaluation. Potential developing nodule versus superimposition of fibroglandular tissue best appreciated in the upper anterior left breast on MLO view (refer to MLO tomographic image 29 of 53) and probably projecting in the subareolar region on cc view. Recommend diagnostic mammogram with spot compression imaging and possible ultrasound for evaluation. us Kamila Granger PA MAMMO Final Result * BONE DENSITY/DEXA (07/29/2020 12:26 PM CDT) Anatomical Region Laterality Modality Bone Bone Density 07/29/2020 3:39 PM CDT Impressions 07/29/2020 3:41 PM CDT IMPRESSION: 1. ??Lumbar spinal bone mineral density within normal limits. 2. ??Left femoral neck bone mineral density within normal limits. Referred By: KAMILA GRANGER Interpreted By: Vaughn Moreira, 07/29/2020 3:39 [...] mineral density within normal limits. Referred By: KAMILA GRANGER Interpreted By: Vaughn Moreira, 07/29/2020 3:39 PM Kamila [facility] Final Result * (ABNORMAL) HEMOGLOBIN, GLYCOSYLATED (07/10/2020 11:26 AM CDT) HGB A1C 6.1(H) <5.7 % 07/10/2020 6:53 PM CDT [facility] Comment: INCREASED RISK OF DIABETES <5.7% ?NON-DIABETES 5.7-6.4% INCREASED RISK FOR FUTURE DIABETES > OR = 6.5 CONSISTENT WITH DIABETES STANDARDS OF MEDICAL CARE IN DIABETES-2010 DIABETES CARE, 33(SUPP 1): S1-S61,2010 07/10/2020 11:2 6 AM CDT [facility] Final Result [facility] [address] [place] [address], * LIPID PANEL (07/10/2020 11:26 AM CDT) CHOLESTEROL 146 <200.0 MG/DL 07/10/2020 2:23 PM CDT [facility] TRIGLYCERIDES 56 <150 MG/DL 07/10/2020 2:23 PM CDT [facility] HDL 75 >40.0 MG/DL 07/10/2020 2:23 PM CDT [facility] LDL (CALCULATED) 60 <100 MG/DL 07/11/19 2:23 PM CDT [facility] NON HDL CHOLESTEROL 71 <130 MG/DL 07/10 2:23 PM CDT [facility] CHOL/HDL RATIO 1.9 0.0 - 4.5 07/10/2020 2:23 PM CDT [facility] VLDL CALCULATION 11 5 - 55 MG/DL 07/10/2020 2:23 PM CDT [facility] LIPID INTERPRETATION 07/10/2020 2:23 PM CDT [facility] Comment: NIH CONCENSUS REPORT RECOMMENDATIONS: ?ADULT ?CHILD ??LOW RISK: ?CHOLESTEROL ? <200 ? <170 ?TRIGLYCERIDE ?<150 ?--- ?HDL ? >=60 ?--- ?LDL ? <100 ? <110 ??BORDERLINE: ?CHOLESTEROL ? 200-239 ?? 170-199 ?TRIGLYCERIDE ?150-199 ? --- ?HDL ?40-59 ?--- ?LDL ? 100-159 ?? 110-129 ??HIGH RISK: ?CHOLESTEROL ? >=240 ?>=200 ?TRIGLYCERIDE ?>=200 ? --- ?HDL ?<40 ?--- ?LDL ? >=160 ?>=130 07/10/2020 11:2 6 AM CDT [facility] Final Result [facility] [address] [place] [address], * (ABNORMAL) COMPREHENSIVE METABOLIC PANEL (07/10/2020 11:26 AM CDT) GLUCOSE 115(H) 70 - 99 MG/DL 07/10/2020 2:23 PM CDT [facility] BUN 25(H) 7 - 18 MG/DL 07/10/2020 2:23 PM CDT [facility] CREATININE S/P/B 0.80 0.55 - 1.02 MG/DL 07/10/2020 2:23 PM CDT [facility] SODIUM S/P/B 145 136 - 145 MMOL/L 07/10/2020 2:23 PM CDT [facility] POTASSIUM S/P/B 4.2 3.5 - 5.1 MMOL/L 07/10/2020 2:23 PM CDT [facility] CHLORIDE S/P/B 108 100 - 108 MMOL/L 07/10/2020 2:23 PM CDT [facility] CO2 29.1 21 - 32 MMOL/L 07/10/2020 2:23 PM CDT [facility] CALCIUM S/P/B 9.0 8.5 - 10.1 MG/DL 07/10/2020 2:23 PM CDT [facility] BILIRUBIN TOTAL S/P/B 0.4 0.2 - 1.2 MG/DL 07/10/2020 2:23 PM T [facility] TOTAL PROTEIN S/P/B 6.4 6.4 - 8.2 G/DL 07/10/2020 2:23 PM [facility] ALBUMIN S/P/B 3.8 3.4 - 5.0 G/DL 07/10/2020 2:23 PM [facility] AST 32 15 - 37 U/L 07/10/2020 2:23 PM [facility] ALT 46 14 - 55 U/L 07/10/2020 2:23 PM [facility] ALKALINE PHOSPHATASE S/P/B 93 50 - 136 U/L 07/10/2020 2:23 PM [facility] ANION GAP 7.9 5 - 15 MMOL/L 07/10/2020 2:23 PM [facility] BUN CREATININE RATIO 31.2(H) 6 - 26 07/10/2020 2:23 PM [facility] A/G RATIO 1.5 1.0 - 2.0 RATIO 07/10/2020 2:23 PM [facility] EGFR NON-AFR. AMER. 68(L) >90 ML/MIN/1.7 3 M2 07/10/2020 2:23 PM [facility] EGFR AFR. AMER. 78(L) >90 ML/MIN/1.7 3 M2 07/10/2020 2:23 PM [facility] Comment: NOTE: eGFR is not calculated for patients <18 years of age. This is an estimated GFR (CKD EPI) and should not be used for calculating drug doses. 07/10/2020 11:2 6 AM CDT us [facility]ila [facility] Final Result Performing Organization Address [facility] de Phone Number [facility] [address] [place] [address], * TSH W/REFLEX (07/10/2020 11:26 AM CDT) TSH 2.896 0.358 - 3.74 uIU/ML 07/10/2020 2:23 PM CDT [facility] Comment: HIGH DOSES OF BIOTIN MAY INTERFERE WITH THIS TEST RESULT. CORRELATION TO CLINICAL HISTORY AND PRESENTATION RECOMMENDED. FREE T4 NOT INDICATED 07/10/2020 11:2 6 AM CDT us [facility] Final Result Performing Organization Address [facility] de Phone Number [facility] [address] [place] [address], * VITAMIN D, 25 OH (07/10/2020 11:26 AM CDT) VITAMIN D 25 HYDROXY S/P/B 58 30 - 100 NG/ML 07/10/2020 2:40 PM CDT [facility] Comment: ? INTERPRETATION ? DEFICIENT ??<20 ? INSUFFICIENT 20-29 ?SUFFICIENT 30-100 07/10/2020 11:2 6 AM CDT us [facility] Final Result Performing Organization Address [facility] Co de Phone Number [facility] [address] [place] [address], * (ABNORMAL) CBC W/DIFF AUTOMATED (07/10/2020 11:26 AM CDT) [facility] WBC 4.5 4.4 - 11.0 x10'3/uL 07/10/2020 1:57 PM CDT [facility] RBC 4.40(L) 4.50 - 5.10 x10'6/uL 07/10/2020 1:57 PM CDT [facility] HGB 12.4 12.3 - 15.3 G/DL 07/10/2020 1:57 PM CDT [facility] HCT 39.2 35.9 - 44.6 % 07/10/2020 1:57 PM CDT [facility] MCV 89.1 80.0 - 96.0 FL 07/10/2020 1:57 PM CDT [facility] MCH 28.2 25.3 - 30.9 PG 07/10/2020 1:57 PM CDT [facility] MCHC 31.6 31.0 - 34.1 G/DL 07/10/2020 1:57 PM CDT [facility] RDW 15.0 12.4 - 15.1 % 07/10/2020 1:57 PM CDT [facility] PLT 205 151 - 353 x10'3/uL 07/10/2020 1:57 PM CDT [facility] MPV 10.2 9.6 - 12.0 FL 07/10/2020 1:57 PM CDT [facility] RBC MORPHOLOGY NORMAL 07/10/2020 1:57 PM CDT [facility] PLT MORPH. NORMAL 07/10/2020 1:57 PM T [facility] WBC MORPHOLOGY NORMAL 07/10/2020 1:57 PM CDT [facility] LYMPHOCYTES % 14.2(L) 15.8 - 45.0 % 07/10/2020 1:57 PM CDT [facility] NEUTROPHILS % 77.6(H) 42.1 - 71.9 % 07/10/2020 1:57 PM CDT [facility] MONOCYTES % 6.4 5.7 - 12.5 % 07/10/2020 1:57 PM CDT [facility] EOSINOPHILS 0.9 0.0 - 5.6 % 07/10/2020 1:57 PM CDT [facility] BASOPHILS 0.7 0.0 - 1.3 % 07/10/2020 1:57 PM CDT [facility] ABS. NEUTROPHILS TOTAL 3.51 1.40 - 6.00 x10'3/uL 07/10/2020 1:57 PM CDT [facility] IMMATURE GRANS % 0.2 0.0 - 0.5 % 07/10/2020 1:57 PM CDT [facility] ABS. LYMPHOCYTES 0.64(L) 0.80 - 4.70 x10'3/uL 07/10/2020 1:57 PM CDT [facility] 07/10/2020 11:2 6 AM CDT [facility] Final Result Performing Organization Address City/State/[facility] Co de Phone Number [facility] [address] [place] [address], documented in this encounter Visit Diagnoses Diagnosis Essential hypertension- Primary Unspecified essential hypertension Hypothyroidism, unspecified type Mixed hyperlipidemia Vitamin D deficiency Unspecified vitamin D deficiency Type 2 diabetes mellitus with stage 3 chronic kidney disease, without long-term current use of insulin, unspecified whether stage 3a or 3b CKD (CMS/HCC [facility]/HCC) Breast cancer screening by mammogram Post-menopause Asymptomatic postmenopausal status (age-related) (natural) Gastroesophageal reflux disease with esophagitis, unspecified whether hemorrhage Hyperlipidemia, unspecified hyperlipidemia type Post-menopause Asymptomatic postmenopausal status (age-related) (natural) documented in this encounter Care Teams Program Writer Relationship Specialty Start Date End Date Noemi Barnard MD [facility]. [address] [address] PCP - General INTERNAL MEDICINE 08/23/18 03/03/23 Joni Mckeon MD [facility]. [address] [address] Christopher Die Cast Die Maker CARDIOVASCULAR DISEASE 07/04/18 documented as of this encounter
--- OUTSIDE RECORDS SUMMARY | 2024-04-05 00:13 | XMS_ITS | Encounter Summary ---
Author Organization [facility] Address [address] [place] [address]. [place] [address] [place] [address] Care Team Providers Care Diesel Technology Instructor Name Role Phone Joni Mckeon MD Unavailable [phone] Noemi Barnard MD Primary Care Provider [phone] Encounter Details Date Type Department Care Team (Latest Contact Info) Description 04/30/2020 Scan HEALTH INFO SRVCS Scanned, Documents Social [...] COVID-19? No / Unsure 05/02/2020 3:58 PM WATER SERVER documented as of this encounter Functional Status [...] No Laura Cheatham, RN Return home with [facility] home health General No Malgorzata Brown MSW HOME WITH DAUGHTER General No Laura Cheatham, RN documented as of this encounter Visit Diagnoses Not on filedocumented in this encounter Care Teams Diesel Technology Instructor Relationship Specialty Start Date End Date Noemi Barnard MD [facility]. [facility] [address] [place] [address] PCP - General INTERNAL MEDICINE 08/23/18 03/03/23 Joni Mckeon MD [facility]. [facility] [address] [place] [address] [place] Physician Vice President CARDIOVASCULAR DISEASE 07/04/18 documented as of this encounter
--- OUTSIDE RECORDS SUMMARY | 2024-04-05 00:13 | XMS_ITS | Encounter Summary ---
Author Organization [facility] Address [address] [place] [address]. [place] [address] [place] [address] Care Team Providers Care Strategic Planning Specialist Name Role Phone Joni Mckeon MD Unavailable [phone] Noemi Barnard MD Primary Care Provider [phone] Encounter Details Date Type Department Care Team (Latest Contact Info) Description 07/09/2020 Scan HEALTH INFO SRVCS Scanned, Documents Social [...] No Laura Cheatham, RN Return home with [facility] home health General No Malgorzata Brown MSW HOME WITH DAUGHTER General No Laura Cheatham, RN documented as of this encounter Visit Diagnoses Not on filedocumented in this encounter Care Teams Strategic Planning Specialist Relationship Specialty Start Date End Date Noemi Barnard MD [facility]. [facility] [address] [place] [address] PCP - General INTERNAL MEDICINE 08/23/18 03/03/23 Joni Mckeon MD [facility]. [facility] [address] [place] [address] [place] Pump And Blower Operator CARDIOVASCULAR DISEASE 07/04/18 documented as of this encounter
--- OUTSIDE RECORDS SUMMARY | 2024-04-05 00:13 | XMS_ITS | Encounter Summary ---
Author Organization [facility] Address [address] [place] [address]. [place] [address] [place] [address] Care Team Providers Care Noodle Maker Name Role Phone Joni Mckeon MD Unavailable [phone] Noemi Barnard MD Primary Care Provider [phone] Encounter Details Date Type Department Care Team (Latest Contact Info) Description 07/10/2020 1:22 PM CDT - 07/10/2020 11:59 PM CDT Hospital Encounter [facility] [address] [place], [place] [id number] [place] [address] [place] [address] Discharge Disposition: Home or Self Care (Routine [...] total) by mouth daily. 30 tablet 3 0 07/26/19 21 nitrofurantoin 50 MG capsuleIndications: Recurrent UTI [...] by mouth nightly at bedtime. 03/24/20 21 rOPINIRole 1 MG tablet Take 1 mg by mouth nightly at bedtime. 07/31/19 21 documented as of this encounter Plan of Treatment Not on file documented as of this encounter Goals Goal Patient Goal Type Associated Problems Recent Progress Patient-Stated? Author Improve [facility] Support [facility] General No Laura Cheatham, RN Return home with [facility] home health General No Malgorzata Brown MACHINE STRIPER HOME WITH [facility] General No Laura Cheatham, RN documented as of this encounter Procedures Procedure Name Priority Date/Time Associated Diagnosis Comments TSH W/REFLEX Routine 07/10/2020 11:26 AM CDT Hypothyroidism, unspecified type HEMOGLOBIN, GLYCOSYLATED Routine 07/10/2020 11:26 AM CDT Type 2 diabetes mellitus with stage 3 chronic kidney disease, without long-term current use of insulin, unspecified whether stage 3a or 3b CKD ([facility] HHS/[facility]) COMPREHENSIVE METABOLIC PANEL Routine 07/10/2020 11:26 AM CDT Mixed hyperlipidemia LIPID PANEL Routine 07/10/2020 11:26 AM CDT Mixed hyperlipidemia CBC W/DIFF AUTOMATED Routine 07/10/2020 11:26 AM CDT Essential hypertension Type 2 diabetes mellitus with stage 3 chronic kidney disease, without long-term current use of insulin, unspecified whether stage 3a or 3b CKD ([facility]) VITAMIN D, 25 OH Routine 07/10/2020 11:2 6 AM CDT Vitamin D deficiency documented in this encounter Results * (ABNORMAL) CBC W/DIFF AUTOMATED (07/10/2020 11:26 AM CDT) WBC 4.5 4.4 - 11.0 x10'3/uL 07/10/2020 1:57 PM CDT [facility] RBC 4.40(L) 4.50 - 5.10 x10'6/uL 07/10/2020 1:57 PM CDT [facility] HGB 12.4 12.3 - 15.3 G/DL 07/10/2020 1:57 PM CDT [facility] HCT 39.2 35.9 - 44.6 % 07/10/2020 1:57 PM CDT [facility] MCV 89.1 80.0 - 96.0 FL 07/10/2020 1:57 PM CDT [facility] MCH 28.2 25.3 - 30.9 PG 07/10/2020 1:57 PM CDT [facility] MCHC 31.6 31.0 - 34.1 G/DL 07/10/2020 1:57 PM CDT [facility] RDW 15.0 12.4 - 15.1 % 07/10/2020 1:57 PM T [facility] PLT 205 151 - 353 x10'3/uL 07/10/2020 1:57 PM T [facility] MPV 10.2 9.6 - 12.0 FL 07/10/2020 1:57 PM T [facility] RBC MORPHOLOGY NORMAL 07/10/2020 1:57 PM T [facility] PLT MORPH. NORMAL 07/10/2020 1:57 PM T [facility] WBC MORPHOLOGY NORMAL 07/10/2020 1:57 PM T [facility] LYMPHOCYTES % 14.2(L) 15.8 - 45.0 % 07/10/2020 1:57 PM T [facility] NEUTROPHILS % 77.6(H) 42.1 - 71.9 % 07/10/2020 1:57 PM CDT [facility] MONOCYTES % 6.4 5.7 - 12.5 % 07/10/2020 1:57 PM T [facility] EOSINOPHILS 0.9 0.0 - 5.6 % 07/10/2020 1:57 PM CDT [facility] BASOPHILS 0.7 0.0 - 1.3 % 07/10/2020 1:57 PM CDT [facility] ABS. NEUTROPHILS TOTAL 3.51 1.40 - 6.00 x10'3/uL 07/10/2020 1:57 PM CDT [facility] IMMATURE GRANS % 0.2 0.0 - 0.5 % 07/10/2020 1:57 PM CDT [facility] ABS. LYMPHOCYTES 0.64(L) 0.80 - 4.70 x10'3/uL 07/10/2020 1:57 PM CDT [facility] 07/10/2020 11:2 6 AM CDT us [facility] Final Result Performing Organization Address [facility] de Phone Number [facility] [address] [place] [address], * VITAMIN D, 25 OH (07/10/2020 11:26 AM CDT) Pathologist [facility] VITAMIN D 25 HYDROXY S/P/B 58 30 - 100 NG/ML 07/10/2020 2:40 PM CDT [facility] Comment: ? INTERPRETATION ? DEFICIENT ??<20 ? INSUFFICIENT 20-29 ?SUFFICIENT 30-100 07/10/2020 11:2 6 AM CDT us [facility] Final Result Performing Organization Address [facility] de Phone Number [facility] [address] [place] [address], [place] [phone] * TSH W/REFLEX (07/10/2020 11:26 AM CDT) TSH 2.896 0.358 - 3.74 uIU/ML 07/10/2020 2:23 PM CDT [facility] Comment: HIGH DOSES OF BIOTIN MAY INTERFERE WITH THIS TEST RESULT. CORRELATION TO CLINICAL HISTORY AND PRESENTATION RECOMMENDED. FREE T4 NOT INDICATED 07/10/2020 11:2 6 AM CDT [facility] Final Result [facility] [address] [place] [address], * (ABNORMAL) COMPREHENSIVE METABOLIC PANEL (07/10/2020 11:26 AM CDT) GLUCOSE 115(H) 70 - 99 MG/DL 07/10/2020 2:23 PM CDT [facility] BUN 25(H) 7 - 18 MG/DL 07/10/2020 2:23 PM CDT [facility] CREATININE S/P/B 0.80 0.55 - 1.02 MG/DL 07/10/2020 2:23 PM CDT [facility] SODIUM S/P/B 145 136 - 145 MMOL/L 07/10/2020 2:23 PM CDT [facility] POTASSIUM S/P/B 4.2 3.5 - 5.1 MMOL/L 07/10/2020 2:23 PM CDT [facility] CHLORIDE S/P/B 108 100 - 108 MMOL/L 07/10/2020 2:23 PM CDT [facility] CO2 29.1 21 - 32 MMOL/L 07/10/2020 2:23 PM CDT [facility] CALCIUM S/P/B 9.0 8.5 - 10.1 MG/DL 07/10/2020 2:23 PM CDT [facility] BILIRUBIN TOTAL S/P/B 0.4 0.2 - 1.2 MG/DL 07/10/2020 2:23 PM CDT [facility] TOTAL PROTEIN S/P/B 6.4 6.4 - 8.2 G/DL 07/10/2020 2:23 PM T [facility] ALBUMIN S/P/B 3.8 3.4 - 5.0 G/DL 07/10/2020 2:23 PM T [facility] AST 32 15 - 37 U/L 07/10/2020 2:23 PM T [facility] ALT 46 14 - 55 U/L 07/10/2020 2:23 PM T [facility] ALKALINE PHOSPHATASE S/P/B 93 50 - 136 U/L 07/10/2020 2:23 PM T [facility] ANION GAP 7.9 5 - 15 MMOL/L 07/10/2020 2:23 PM T [facility] BUN CREATININE RATIO 31.2(H) 6 - 26 07/10/2020 2:23 PM T [facility] A/G RATIO 1.5 1.0 - 2.0 RATIO 07/10/2020 2:23 PM T [facility] EGFR NON-AFR. AMER. 68(L) >90 ML/MIN/1.7 3 M2 07/10/2020 2:23 PM [facility] EGFR AFR. AMER. 78(L) >90 ML/MIN/1.7 3 M2 07/10/2020 2:23 PM T [facility] Comment: NOTE: eGFR is not calculated for patients <18 years of age. This is an estimated GFR (CKD EPI) and should not be used for calculating drug doses. 07/10/2020 11:2 6 AM CDT [facility] Final Result [facility] [address] [place] [address], * LIPID PANEL (07/10/2020 11:26 AM CDT) [facility] CHOLESTEROL 146 <200.0 MG/DL 07/10/2020 2:23 PM CDT [facility] TRIGLYCERIDES 56 <150 MG/DL 07/10/2020 2:23 PM CDT [facility] HDL 75 >40.0 MG/DL 07/10/2020 2:23 PM T [facility] LDL (CALCULATED) 60 <100 MG/DL 07/11/19 2:23 PM CDT [facility] NON HDL CHOLESTEROL 71 <130 MG/DL 07/10 2:23 PM T [facility] CHOL/HDL RATIO 1.9 0.0 - 4.5 07/10/2020 2:23 PM T [facility] VLDL CALCULATION 11 5 - 55 MG/DL 07/10/2020 2:23 PM T [facility] LIPID INTERPRETATION 07/10/2020 2:23 PM T [facility] Comment: NIH CONCENSUS REPORT [...] >=160 ?>=130 07/10/2020 11:2 6 AM CDT us [facility] Final Result Performing Organization Address City/State/[facility] Co de Phone Number [facility] [address] [place] [phone], * (ABNORMAL) HEMOGLOBIN, GLYCOSYLATED (07/10/2020 11:26 AM CDT) HGB A1C 6.1(H) <5.7 % 07/10/2020 6:53 PM CDT [facility] Comment: INCREASED RISK OF DIABETES <5.7% ?NON-DIABETES 5.7-6.4% INCREASED RISK FOR FUTURE DIABETES > OR = 6.5 CONSISTENT WITH DIABETES STANDARDS OF MEDICAL CARE IN DIABETES-2010 DIABETES CARE, 33(SUPP 1): S1-S61,2010 07/10/2020 11:2 6 AM CDT us [facility] Final Result [facility] [address] [place] [address], documented in this encounter Visit Diagnoses Diagnosis Type 2 diabetes mellitus with stage 3 chronic kidney disease, without long-term current use of insulin, unspecified whether stage 3a or 3b CKD ([facility]) Mixed hyperlipidemia Hypothyroidism, unspecified type Vitamin D deficiency Unspecified vitamin D deficiency Essential hypertension Unspecified essential hypertension documented in this encounter Care Teams Noodle Maker Relationship Specialty Start Date End Date Noemi Barnard MD [address] [facility] [address] [address] PCP - General INTERNAL MEDICINE 08/23/18 03/03/23 Joni Mckeon MD [address] [address] Christopher Electro Plater CARDIOVASCULAR DISEASE 07/04/18 documented as of this encounter
--- OUTSIDE RECORDS SUMMARY | 2024-04-05 00:13 | XMS_ITS | Encounter Summary ---
Author Organization [facility] Address [address] [place] [address]. [place] [address] [place] [address] Care Team Providers Care Data Specialist Name Role Phone Joni Mckeon MD Unavailable [phone] Noemi Barnard MD Primary Care Provider [phone] Encounter Details Date Type Department Care Team (Latest Contact Info) Description 07/03/2020 Travel Social History Tobacco Use Types Packs/Day [...] have Coronavirus / COVID-19? No / Unsure 07/03/2020 11:04 AM CDT documented as of this encounter [...] No Laura Cheatham, RN Return home with [facility] home health General No Malgorzata Brown, GERENTOLOGICAL PHYSIOTHERAPIST HOME WITH DAUGHTER General No Laura Cheatham, RN documented as of this encounter Visit Diagnoses Not on filedocumented in this encounter Care Teams Data Specialist Relationship Specialty Start Date End Date Noemi Barnard MD [facility]. [facility] [address] [place] [address] PCP - General INTERNAL MEDICINE 08/23/18 03/03/23 Joni Mckeon MD Three [facility]. [facility] [address] [place] [address] Flora Rn Er CARDIOVASCULAR DISEASE 07/04/18 documented as of this encounter
--- OUTSIDE RECORDS SUMMARY | 2024-04-05 00:14 | XMS_ITS | Encounter Summary ---
Author Organization [facility] Address [address] [place] [address]. [place] [address] [place] [address] Care Team Providers Care Hose Sprayer Name Role Phone Joni Mckeon MD Unavailable [phone] Noemi Barnard MD Primary Care Provider [phone] Reason for Visit * Reason Onset Date Comments Medication Request 02/21/2020 keflex Encounter Details Date Type Department Care Team ([facility] Contact Info) Description 02/21/2020 Telephone [place] [facility], [address] [address] Joni Mckeon MD [facility]. [address] [address] Medication Request (keflex) Social History Tobacco Use Types Packs/Day Years [...] have Coronavirus / COVID-19? No / Unsure 02/20/2020 11:05 AM BREADMAN documented as of this encounter Functional Status [...] documented in this encounter Progress Notes * Katlyn Steen CMA - 02/21/2020 11:59 AM CST ----- Message from Joni Mckeon MD sent at 02/21/2020 11:27 AM BREADMAN ----- Can you send keflex 500 mg bid for 7 days no rf DMAN documented in this encounter Plan of Treatment Not on file documented as of this encounter Goals Goal Patient Goal Type Associated Problems Recent Progress Patient-Stated? Author Improve Home Support System General No Laura Cheatham RN Return home with [facility] home health General No Malgorzata Brown, TUBE REBUILDER HOME WITH DAUGHTER General No Laura Cheatham, RN documented as of this encounter Visit Diagnoses Not on filedocumented in this encounter Care Teams Hose Sprayer Relationship Specialty Start Date End Date Noemi Barnard MD Three [facility]. [address] [address] PCP - General INTERNAL MEDICINE 08/23/18 03/03/23 Joni Mckeon MD Three [facility]. [facility] [address] [place] [address] [place] Shank Threader CARDIOVASCULAR DISEASE 07/04/18 documented as of this encounter
--- OUTSIDE RECORDS SUMMARY | 2024-04-05 00:14 | XMS_ITS | Encounter Summary ---
Author Organization [facility] Address [address] [place] [address]. [place], [place] [address] [place] [address] Care Team Providers Care Welt Wheeler Name Role Phone Joni Mckeon MD Unavailable [phone] Noemi Barnard MD Primary Care Provider [phone] Encounter Details Date Type Department Care Team (Latest Contact Info) Description 03/26/2020 Scan HEALTH INFO SRVCS Scanned, Documents Social [...] have Coronavirus / COVID-19? Unable to assess 03/26/2020 1:10 PM EQUIPMENT OPERATOR INTERMODAL YARD documented as of this encounter Functional Status [...] No Laura Cheatham, RN Return home with [facility] home health General No Malgorzata Brown SURFACE WATER TECHNICIAN HOME WITH DAUGHTER General No Laura Cheatham, RN documented as of this encounter Visit Diagnoses Not on filedocumented in this encounter Care Teams Welt Wheeler Relationship Specialty Start Date End Date Noemi Barnard MD [facility]. [facility] [address] [place] [address] PCP - General INTERNAL MEDICINE 08/23/18 03/03/23 Joni Mckeon MD [facility]. [facility] [address] [place] [address] [place] Manager Leasing CARDIOVASCULAR DISEASE 07/04/18 documented as of this encounter
--- OUTSIDE RECORDS SUMMARY | 2024-04-05 00:14 | XMS_ITS | Encounter Summary ---
Author Organization [facility] Address [address] [place] [address]. [place], [place] [address] [place] [address] Care Team Providers Care Court Operations Clerk Name Role Phone Joni Mckeon MD Unavailable [phone] Noemi Barnard MD Primary Care Provider [phone] Encounter Details Date Type Department Care Team (Latest Contact Info) Description 02/27/2020 Scan HEALTH INFO SRVCS Scanned, Documents Social [...] have Coronavirus / COVID-19? Unable to assess 02/27/2020 2:00 PM MANAGER FEDERAL documented as of this encounter Functional Status [...] [facility] General No Malgorzata Brown CHIEF CLINICAL OFFICER HOME WITH DAUGHTER General No Laura Cheatham, RN documented as of this encounter Visit Diagnoses Not on filedocumented in this encounter Care Teams Court Operations Clerk Relationship Specialty Start Date End Date Noemi Barnard MD [facility]. [facility] [address] [place] [address] PCP - General INTERNAL MEDICINE 08/23/18 03/03/23 Joni Mckeon MD [facility]. [facility] [address] [place] [address] [place] Deckhand Maintenance CARDIOVASCULAR DISEASE 07/04/18 documented as of this encounter
--- OUTSIDE RECORDS SUMMARY | 2024-04-05 00:14 | XMS_ITS | Encounter Summary ---
Author Organization [facility] Address [address] [place] [address]. [place] [address] [place] [address] Care Team Providers Care Claims Correspondence Clerk Name Role Phone Joni Mckeon MD Unavailable [phone] Noemi Barnard MD Primary Care Provider [phone] Reason for Visit * Auth/Cert Specialty Diagnoses / Procedures Referred By Eugenie crain Referred To Contact Diagnoses Dysphagia, unspecified type Choking Weight loss dysaphagia, choking and weight loss Procedures EGD WITH DILAT STRICTURE Referral ID Status Reason Start Date Expiration Date Visits Re quested Visits Authorized [id number] 1 1 Encounter Details Date Type Department Care Team (Latest Contact Info) Description 04/16/2020 8:50 AM NEWS DEPARTMENT INTERN - 04/16/2020 11:59 PM [facility] Hospital Encounter [facility] [address] [place] [address] Christos Burrows MD [address] [address] Discharge Disposition: Home or Self Care (Routine [...] have Coronavirus / COVID-19? No / Unsure 04/16/2020 8:50 AM NEWS DEPARTMENT INTERN documented as of this encounter Functional Status [...] MOUTH DAILY 90 tablet 1 03/04/2020 1 benazepril 20 MG tablet Take 1 tablet (20 mg total) by mouth daily. 90 tablet 01/23/2020 1 cephALEXin 500 MG capsule Take 1 [...] No Laura Cheatham RN Return home with [facility] home health General No Malgorzata Brown, CONTACT LENS LATHE OPERATOR HOME WITH DAUGHTER General No Laura Cheatham RN documented as of this encounter Procedures Procedure Name Priority Date/Time Associated Diagnosis Comments CORONAVIRUS (COVID 19) Routine 04/16/2020 8:57 AM NEWS DEPARTMENT INTERN Preop testing documented in this encounter Results * PRE-SURGICAL/PRE-PROCEDURE CORONAVIRUS (COVID 19) (04/16/2020 8:57 AM NEWS DEPARTMENT INTERN) CORONAVIRUS SARS COV 2 PCR (RESP) NOT DETECTED NOT DETECTED 04/17/2020 6:26 PM NEWS DEPARTMENT INTERN [facility] Comment: A Not Detected (negative) test result for this test means that SARS- CoV-2 RNA was not present in the specimen above the limit of detection. A negative result does not rule out the possibility of COVID-19 and should not be used as the sole basis for treatment or patient management decisions. ??If COVID-19 is still suspected, based on exposure history together with other clinical findings, re-testing should be considered in consultation with public health authorities. Laboratory test results should always be considered in the context of clinical observations and epidemiological data in making a final diagnosis and patient management decisions. Please review the Fact Sheets and FDA authorized labeling available for health care providers and patients using the following websites: https://www.[employer]fin[employer].com/home/Covid-19/HCP/QuestIV[facility]/fact- sheet.html https://www.Infinia.FireBlade/home/Covid-19/Patients/ QuestIVD/fact-sheet.html This test has been authorized by the FDA under an Emergency Use Authorization (EUA) for use by authorized laboratories. Due to the current public health emergency, [facility] is receiving a high volume of samples from a wide variety of swabs and media for COVID-19 testing. In order to serve patients during this public health crisis, samples from appropriate clinical sources are being tested. Negative test results derived from specimens received in non-commercially manufactured viral collection and transport media, or in media and sample collection kits not yet authorized by FDA for COVID-19 testing should be cautiously evaluated and the patient potentially subjected to extra precautions such as additional clinical monitoring, including collection of an additional specimen. Methodology: ??Nucleic Acid Amplification Test (NAAT) includes RT-PCR or TMA Additional information about COVID-19 can be found at the [facility] website: www.Offerial.FireBlade/Covid19. Test performed at [facility] [place] [address] [place], [place] ??[phone] Director: JODIE PUENTE DO,MPH FIRST TEST UNKNOWN 04/16/2020 8:50 AM NEWS DEPARTMENT INTERN [facility] EMPLOYED IN HEALTHCARE NO 04/16/2020 8:50 AM NEWS DEPARTMENT INTERN [facility] SYMPTOMATIC DEFINED BY CDC NO 04/16/2020 8:50 AM NEWS DEPARTMENT INTERN [facility] DATE OF SYMPTOM ONSET UNKNOWN 04/16/2020 9:03 AM NEWS DEPARTMENT INTERN [facility] HOSPITALIZATION STATUS NO 04/16/2020 8:50 AM NEWS DEPARTMENT INTERN [facility] PATIENT IN ICU NO 04/16/2020 8:50 AM NEWS DEPARTMENT INTERN [facility] RESIDENT OF CONGREGATE CARE NO 04/16/2020 8:50 AM NEWS DEPARTMENT INTERN [facility] NO 04/16/2020 9:03 AM NEWS DEPARTMENT INTERN [facility] PATIENT'S RACE WHITE OR 04/16/2020 8:50 AM NEWS DEPARTMENT INTERN [facility] ETHNICITY NONHISPANIC 04/16/2020 8:50 AM NEWS DEPARTMENT INTERN [facility] SOURCE (QST) NASOPHARYNGEAL SWAB 04/16/2020 8:50 AM NEWS DEPARTMENT INTERN [facility] NASOPHARYNGEAL SWAB / Unknown 04/16/2020 8:57 AM NEWS DEPARTMENT INTERN Christos Burrows MD MICROBIOLOGY - GENERAL ORDERABLE S Final Result [facility] [address] [place] [address], [facility] [address] [place] [address], documented in this encounter Visit Diagnoses Diagnosis Preop testing Preoperative examination, unspecified documented in this encounter Additional Health Concerns Infection Onset Date Last Indicated Resolved Time COVID-19 Rule Out 04/16/2020 04/16/2020 04/17/2020 6:26 PM NEWS DEPARTMENT INTERN documented as of this encounter Care Teams Claims Correspondence Clerk Relationship Specialty Start Date End Date Noemi Barnard MD [facility]. [address] [address] PCP - General INTERNAL MEDICINE 08/23/18 03/03/23 Joni Mckeon MD [facility]. [address] [address] Christopher Brazer Electronic CARDIOVASCULAR DISEASE 07/04/18 documented as of this encounter
--- OUTSIDE RECORDS SUMMARY | 2024-04-05 00:14 | XMS_ITS | Encounter Summary ---
Author Organization [facility] Address [address] [place] [address]. [place], [place] [address] [place] [address] Care Team Providers Care Rehabilitation Construction Specialist Name Role Phone Joni Mckeon MD Unavailable [phone] Noemi Barnard MD Primary Care Provider [phone] Encounter Details Date Type Department Care Team (Latest Contact Info) Description 03/05/2020 Scan HEALTH INFO SRVCS Scanned, Documents Social [...] have Coronavirus / COVID-19? No / Unsure 03/11/2020 11:05 AM FURNITURE ASSEMBLY SUPERVISOR documented as of this encounter Functional [...] FACILITY home health General No Malgorzata Brown DITCHER HOME WITH DAUGHTER General No Laura Cheatham, RN documented as of this encounter Visit Diagnoses Not on filedocumented in this encounter Care Teams Rehabilitation Construction Specialist Relationship Specialty Start Date End Date Noemi Barnard MD [facility]. [facility] [address] [place] [address] PCP - General INTERNAL MEDICINE 08/23/18 03/03/23 Joni Mckeon MD [facility]. [facility] [address] [place] [address] [place] Postdoctoral Scientist CARDIOVASCULAR DISEASE 07/04/18 documented as of this encounter
--- OUTSIDE RECORDS SUMMARY | 2024-04-05 00:14 | XMS_ITS | Encounter Summary ---
Author Organization [facility] Address [address] [place] [address]. [place] [address] [place] [address] Care Team Providers Care Absorption And Adsorption Engineer Name Role Phone Joni Mckeon MD Unavailable [phone] Noemi Barnard MD Primary Care Provider [phone] Encounter Details Date Type Department Care Team (Latest Contact Info) Description 03/08/2020 Travel Social History Tobacco Use Types Packs/Day [...] have Coronavirus / COVID-19? No / Unsure 03/08/2020 2:26 PM LIBRARY SERVICES DEAN documented as of this encounter Functional Status [...] No Laura Cheatham, RN Return home with [facility] home health General No Malgorzata Brown, CARTOGRAPHY/MAPPING TECHNICIAN HOME WITH [facility] General No Laura Cheatham, RN documented as of this encounter Visit Diagnoses Not on filedocumented in this encounter Care Teams Absorption And Adsorption Engineer Relationship Specialty Start Date End Date Noemi Barnard MD [facility]. [address] [address] PCP - General INTERNAL MEDICINE 08/23/18 03/03/23 Joni Mckeon MD [facility]. [facility] [address] [place] [address] [place] Customer Care Agent CARDIOVASCULAR DISEASE 07/04/18 documented as of this encounter
--- OUTSIDE RECORDS SUMMARY | 2024-04-05 00:14 | XMS_ITS | Encounter Summary ---
Author Organization [facility] Address [address] [place] [address]. [place] [address] [place] [address] Care Team Providers Care Hydrogen Treater Name Role Phone Joni Mckeon MD Unavailable [phone] oNemi Barnard MD Primary Care Provider [phone] Encounter Details Date Type Department Care Team (Latest Contact Info) Description 03/11/2020 Travel Social History Tobacco Use Types Packs/Day [...] COVID-19? No / Unsure 03/11/2020 11:05 AM TRANSPORTATION OPERATIONS MANAGER documented as of this encounter Functional [...] HOSPITAL home health General No Malgorzata Brown, SUBSTATION SUPERINTENDENT HOME WITH [facility] General No Laura Cheatham, RN documented as of this encounter Visit Diagnoses Not on filedocumented in this encounter Care Teams Hydrogen Treater Relationship Specialty Start Date End Date Noemi Barnard MD [facility]. [address] [address] PCP - General INTERNAL MEDICINE 08/23/18 03/03/23 Joni Mckeon MD [facility]. [facility] [address] [place] [address] [place] Talent Program Manager CARDIOVASCULAR DISEASE 07/04/18 documented as of this encounter
--- OUTSIDE RECORDS SUMMARY | 2024-04-05 00:14 | XMS_ITS | Encounter Summary ---
Author Organization [facility] Address [address] [place] [address]. [place] [address] [place] [address] Care Team Providers Care Residential Green Building Designer Name Role Phone Joni Mckeon MD Unavailable Noemi Barnard MD Primary Care Provider [phone] Encounter Details Date Type Department Care Team (Latest Contact Info) Description 02/20/2020 Travel Social History Tobacco Use Types Packs/Day [...] COVID-19? No / Unsure 02/20/2020 11:05 AM BAGGAGE INSPECTOR documented as of this encounter Functional Status [...] No Laura Cheatham, RN Return home with [facility] home health General No Malgorzata Brown, MOLDER FITTING HOME WITH [facility] General No Laura Cheatham, RN documented as of this encounter Visit Diagnoses Not on filedocumented in this encounter Care Teams Residential Green Building Designer Relationship Specialty Start Date End Date Noemi Barnard MD [facility]. [address] [address] PCP - General INTERNAL MEDICINE 08/23/18 03/03/23 Joni Mckeon MD [facility]. [facility] [address] [place] [address] [place] Spice Cleaner CARDIOVASCULAR DISEASE 07/04/18 documented as of this encounter
--- OUTSIDE RECORDS SUMMARY | 2024-04-05 00:14 | XMS_ITS | Encounter Summary ---
Author Organization [facility] Address [address] [place] [address]. [place] [address] [place] [address] Care Team Providers Care Automobile Relocation Engineer Name Role Phone Joni Mckeon MD Unavailable [phone] Noemi Barnard MD Primary Care Provider [phone] Reason for Referral * Surgical (Routine) - Closed Specialty Diagnoses / Procedures Referred By Eugenie crain Referred To Contact Diagnoses Dysphagia, unspecified type Choking Weight loss Procedures Case request operating room: EGD WITH DILAT STRICTURE Christos Burrows MD [address] [place] [address] [place] [address] Phone: tel: fax: Referral ID Status Reason Start Date Expiration Date Visits Re quested Visits Authorized [id number] Closed 04/12/2020 05/13/2021 1 1 LOPMENTAL MATHEMATICS PROFESSOR Encounter Details Date Type Department Care Team (Late st Contact Info) Description 04/12/2020 Orders Only [facility] Medical Group Multispecialty Care - [facility] [address] [facility] [place] [phone] Christos Burrows MD 3 [facility] [address] [place], [place] [id number] Social History Tobacco Use Types Packs/Day Years [...] have Coronavirus / COVID-19? No / Unsure 04/12/2020 12:29 PM DEVELOPMENTAL MATHEMATICS PROFESSOR documented as of this encounter Functional Status [...] Author Status No 08/16/2019 11:28 AM CDT Tai, Laila L, R N Active documented in this encounter Plan of Treatment Scheduled Orders Name Type Priority Associated Diagnoses Orde r Schedule Case request operating room: EGD WITH DILAT STRICTURE Case Request Routine Dysphagia, unspecified type Choking Weight loss Ordered: 04/12/2020 documented as of this encounter Goals Goal Patient Goal Type Associated Problems Recent Progress Patient-Stated? Author Improve Home Support System General No Laura Cheatham, RN Return home with [facility] home health General No Malgorzata Brown, BENCH WORKER HOLLOW HANDLE HOME WITH DAUGHTER General No Laura Cheatham, RN documented as of this encounter Visit Diagnoses Diagnosis Dysphagia, unspecified type- Primary Choking Foreign body in larynx Weight loss Loss of weight documented in this encounter Care Teams Automobile Relocation Engineer Relationship Specialty Start Date End Date Noemi Barnard MD [address] [address] PCP - General INTERNAL MEDICINE 08/23/18 03/03/23 Joni Mckeon MD [facility]. [address] [address] Christopher I O Psychologist CARDIOVASCULAR DISEASE 07/04/18 documented as of this encounter
--- OUTSIDE RECORDS SUMMARY | 2024-04-05 00:14 | XMS_ITS | Encounter Summary ---
Author Organization [facility] Address [facility] [place] [address] [place] [address] Care Team Providers Care Traffic Ii Manager Name Role Phone Joni Mckeon MD Unavailable [phone] Noemi Barnard MD Primary Care Provider [phone] Sandra Johnson RN Unavailable [phone] None, Provider MD Primary Care Provider Unavaila ble Encounter Details Date Type Department Care Team (Late st Contact Info) Description 04/15/2020 Prep for Procedure [facility] [address] [place], [place] [id number] Christos Burrows MD [address] [place] [address] Social History Tobacco Use Types Packs/Day Years [...] COVID-19? No / Unsure 04/16/2020 8:50 AM CELLARS SUPERVISOR documented as of this encounter Functional [...] FACILITY home health General No Malgorzata Brown MSW HOME WITH DAUGHTER General No Laura Cheatham, RN documented as of this encounter Results * PRE-SURGICAL/PRE-PROCEDURE CORONAVIRUS (COVID 19) (04/16/2020 8:57 AM CELLARS SUPERVISOR) CORONAVIRUS SARS COV 2 PCR (RESP) NOT DETECTED NOT DETECTED 04/17/2020 6:26 PM CELLARS SUPERVISOR [facility] Comment: A Not Detected (negative) test result [...] providers and patients using the following websites: https://www.Five9.Jobyourlife/home/Covid-19/HCP/QuestIVD/fact- sheet.html https://www.[employer]9.Jobyourlife/home/Covid-19/Patients/ QuestIVD/fact-sheet.html This test has been authorized by the FDA under an Emergency Use Authorization (EUA) for use by authorized laboratories. Due to the current public health emergency, [facility] is receiving a high volume of samples [...] about COVID-19 can be found at the [facility] website: www.[employer].Jobyourlife/Covid19. Test performed at [facility] [place] [id number] [place] [address] ??[phone] Director: JODIE PUENTE DO,MPH FIRST TEST UNKNOWN 04/16/2020 8:50 AM [facility] EMPLOYED IN HEALTHCARE NO 04/16/2020 8:50 AM [facility] SYMPTOMATIC DEFINED BY CDC NO 04/16/2020 8:50 AM CELLARS SUPERVISOR [facility] DATE OF SYMPTOM ONSET UNKNOWN 04/16/2020 9:03 AM CELLARS SUPERVISOR [facility] HOSPITALIZATION STATUS NO 04/16/2020 8:50 AM CELLARS SUPERVISOR [facility] PATIENT IN ICU NO 04/16/2020 8:50 AM CELLARS SUPERVISOR [facility] RESIDENT OF CONGREGATE CARE NO 04/16/2020 8:50 AM CELLARS SUPERVISOR [facility] NO 04/16/2020 9:03 AM CELLARS SUPERVISOR [facility] PATIENT'S RACE WHITE OR 04/16/2020 8:50 AM CELLARS SUPERVISOR [facility] ETHNICITY NONHISPANIC 04/16/2020 8:50 AM CELLARS SUPERVISOR [facility] SOURCE (QST) NASOPHARYNGEAL SWAB 04/16/2020 8:50 AM CELLARS SUPERVISOR [facility] NASOPHARYNGEAL SWAB / Unknown 04/16/2020 8:57 AM CELLARS SUPERVISOR us Christos Burrows MD MICROBIOLOGY - GENERAL ORDERABLE S Final Result [facility] [address] [place] [address], [facility] [address] [address], documented in this encounter Visit Diagnoses Diagnosis Preop testing- Primary Preoperative examination, unspecified documented in this encounter Additional Health Concerns Infection Onset Date Last Indicated Resolved Time COVID-19 Rule Out 04/16/2020 04/16/2020 04/17/2020 6:26 PM CELLARS SUPERVISOR COVID-19 Rule Out 05/14/2021 05/14/2021 05/14/2021 11:02 AM CELLARS SUPERVISOR documented as of this encounter Care Teams Traffic Ii Manager Relationship Specialty Start Date End Date Noemi Barnard MD [facility]. [address] [address] PCP - General INTERNAL MEDICINE 08/23/18 03/03/23 None, Provider, MD PCP - General UNKNOWN PHYSICIAN SPECIALTY 03/04/23 Joni Mckeon MD [facility]. [address] [address] [place] Fireworks Assembly Supervisor CARDIOVASCULAR DISEASE 07/04/18 Sandra Johnson, RN [address] [place], [place] [address] Undercover Operator (Ambulatory) REGISTERED NURSE 05/12/21 06/29/21 documented as of this encounter
--- OUTSIDE RECORDS SUMMARY | 2024-04-05 00:14 | XMS_ITS | Encounter Summary ---
Author Organization [facility] Address [address] [place] [address]. [place] [address] [place] [address] Care Team Providers Care Sheet Rock Taper Name Role Phone Joni Mckeon MD Unavailable [phone] Noemi Barnard MD Primary Care Provider [phone] Encounter Details Date Type Department Care Team (Latest Contact Info) Description 03/26/2020 Travel Social History Tobacco Use Types Packs/Day [...] COVID-19? Unable to assess 03/26/2020 1:10 PM DIPPER AND DRIER documented as of this encounter Functional Status [...] No Laura Cheatham, RN Return home with [facility] home health General No Malgorzata Brown, SOLE TRIMMER HOME WITH [facility] General No Laura Cheatham, RN documented as of this encounter Visit Diagnoses Not on filedocumented in this encounter Care Teams Sheet Rock Taper Relationship Specialty Start Date End Date Noemi Barnard MD [facility]. [address] [address] PCP - General INTERNAL MEDICINE 08/23/18 03/03/23 Joni Mckeon MD [facility]. [facility] [address] [place] [address] Christopher Army Ranger CARDIOVASCULAR DISEASE 07/04/18 documented as of this encounter
--- OUTSIDE RECORDS SUMMARY | 2024-04-05 00:14 | XMS_ITS | Encounter Summary ---
Author Organization [facility] Address [facility] [place] [address] [place] [address] Care Team Providers Care Flooring Mechanic Name Role Phone Joni Mckeon MD Unavailable [phone] Noemi Barnard MD Primary Care Provider [phone] Reason for Visit * Reason Onset Date Comments Reschedule 03/12/2020 Encounter Details Date Type Department Care Team (Late st Contact Info) Description 03/12/2020 Telephone [facility] Medical Group Multispecialty Care - [facility] [address] [facility] [place] [address] Giovany Miller MD [address] [place] [address] [place] [address] Reschedule Social History Tobacco Use Types Packs/Day Years [...] COVID-19? No / Unsure 03/11/2020 11:05 AM PRIMARY HEALTH CARE NURSE documented as of this encounter Functional Status [...] in this encounter Progress Notes * Nancie Mason MA - 03/12/2020 3:36 PM CST I spoke w pt daughter & changed pt 03/14 appt to same day and time [facility] documented in this encounter Plan of Treatment Not on file documented as of this encounter Goals Goal Patient Goal Type Associated Problems Recent Progress Patient-Stated? Author Improve Home Support System General No Laura Cheatham, RN Return home with [facility] home health General No Malgorzata Brown, DIGITAL PROOFING AND PLATEMAKER HOME WITH DAUGHTER General No Laura Cheatham RN documented as of this encounter Visit Diagnoses Not on filedocumented in this encounter Care Teams Flooring Mechanic Relationship Specialty Start Date End Date Noemi Banrard MD [facility]. [address] [address] PCP - General INTERNAL MEDICINE 08/23/18 03/03/23 Joni Mckeon MD [facility]. [address] [address] [place] [employer] Healthcare Representative CARDIOVASCULAR DISEASE 07/04/18 documented as of this encounter
--- OUTSIDE RECORDS SUMMARY | 2024-04-05 00:14 | XMS_ITS | Encounter Summary ---
Author Organization [facility] Address [address] [place] [address]. [place] [address] [place] [address] Care Team Providers Care Commissary Assistant Name Role Phone Joni Mckeon MD Unavailable [phone] Noemi Barnard MD Primary Care Provider [phone] Reason for Visit * Auth/Cert Specialty Diagnoses / Procedures Referred By Eugenie crain Referred To Contact Diagnoses Dysphagia, unspecified type Choking Weight loss dysaphagia, choking and weight loss Procedures EGD WITH DILAT STRICTURE Referral ID Status Reason Start Date Expiration Date Visits Re quested Visits Authorized [id number] 1 1 Encounter Details Date Type Department Care Team (Latest Contact Info) Description 04/19/2020 6:40 AM E COMMERCE DEVELOPER - 04/19/2020 9:36 AM [facility] Hospital Encounter [facility] [address] [place] [address] Nabila Francisco MD [address] [address] Discharge Disposition: Home or Self Care (Routine [...] COVID-19? No / Unsure 04/19/2020 6:40 AM E COMMERCE DEVELOPER documented as of this encounter Last Filed Vital Signs Vital Sign Reading Time Taken Comments Blood Pressure 136/70 04/19/2020 9:20 AM E COMMERCE DEVELOPER Pulse 64 04/19/2020 9:20 AM E COMMERCE DEVELOPER Temperature 36.9 ??C (98.4 ??F) 04/19/2020 7:02 AM CS T Respiratory Rate 18 04/19/2020 9:20 AM E COMMERCE DEVELOPER Oxygen Saturation 99% 04/19/2020 9:20 AM E COMMERCE DEVELOPER Inhaled Oxygen Concentration - - Weight 48.5 kg (107 lb) 04/15/2020 5:19 PM E COMMERCE DEVELOPER Height 160 cm (5' 3 ) 04/15/2020 5:19 PM E COMMERCE DEVELOPER Body Mass Index 18.95 04/15/2020 5:19 PM E COMMERCE DEVELOPER documented in this encounter Functional Status * [...] Patricia Burrell RN - 04/19/2020 9:19 AM E COMMERCE DEVELOPER Anesthesia general information Everyone recovers form surgery [...] does not place pressure on your incision. E COMMERCE DEVELOPER * Attachments The following attachments cannot be sent through Care Everywhere. * Upper GI Endoscopy Discharge Instructions (Citizen Of [place]) documented in this encounter Medications at Time [...] bedtime. 1 documented as of this encounter H&P Notes [...] during recuperation were discussed with the patient/family/personal field representative. Reasonable alternatives to the patient's proposed procedure/surgery including benefits, risks, and side effects related to the alternatives and the risks related to not receiving the proposed care were also discussed with the patient/family/personal field representative. Questions were answered and the patient/family/personal field representative verbalized understanding and desires to proceed. E COMMERCE DEVELOPER Source Note - Nabila Francisco MD - 04/12/2020 1:00 PM E COMMERCE DEVELOPER Images from the original note were not [...] file Gets together: Not on file Attends confucianism service: Not on file Active member of [...] FRANCISCO MD 04/12/2020 Voice recognition software utilized E COMMERCE DEVELOPER * Nabila Francisco MD - 04/19/2020 7:48 [...] during recuperation were discussed with the patient/family/personal field representative. Reasonable alternatives to the patient's proposed procedure/surgery including benefits, risks, and side effects related to the alternatives and the risks related to not receiving the proposed care were also discussed with the patient/family/personal field representative. Questions were answered and the patient/family/personal field representative verbalized understanding and desires to proceed. E COMMERCE DEVELOPER Source Note - Nabila Francisco MD - 04/12/2020 1:00 PM E COMMERCE DEVELOPER Images from the original note were not [...] file Gets together: Not on file Attends confucianism service: Not on file Active member of [...] FRANCISCO MD 04/12/2020 Voice recognition software utilized E COMMERCE DEVELOPER documented in this encounter OR Notes * Op Note - Nabila Francisco MD - 04/19/2020 8:51 AM CST HS OpNote EGD WITH DILATION Procedure Note Roxana Ch 04/19/2020 0802 Procedure(s) (LRB): EGD WITH DILATION (N/A) Surgeon(s): Nabila Francisco MD Staff: Circulating Nurse 1: Yudelka Mott RN Scrub Person 1: Bianca Urbina RN Anesthesia: Monitor Anesthesia Care SECURITY ASSURANCE ANALYST: Leticia Valdivia CRNA Pre-Op Diagnosis: dysaphagia, choking [...] looked normal. Scope withdrawn. Next a 38 Azerbaijani [place] dilator was lubricated inserted for single pass with some mild resistance. This was followed by a 40 Azerbaijani [place]. This was then followed by a 42 Azerbaijani [place] dilation with no complications of heme. [...] Time: 8:52 AM Voice recognition software utilized. E COMMERCE DEVELOPER documented in this encounter Plan of Treatment [...] EGD WITH DILAT STRICTURE 04/19/2020 8:37 AM E COMMERCE DEVELOPER Dysphagia, unspecified type Choking Weight loss Special [...] patients., Pre-Op New Bag 04/19/2020 8:37 AM E COMMERCE DEVELOPER New Bag 04/19/2020 7:22 AM E COMMERCE DEVELOPER 10 mL/hr documented in this encounter Active and Recently Administered Medications Times are shown in E COMMERCE DEVELOPER. Continuous Medication Order 04/17/2020 04/18/2020 04/19/2020 sodium [...] RN) documented in this encounter Care Teams Commissary Assistant Relationship Specialty Start Date End Date Noemi Barnard MD [facility]. [address] [address] PCP - General INTERNAL MEDICINE 08/23/18 03/03/23 Joni Mckeon MD Three [facility]. [facility] [address] [place] [address] Christopher Insulation Machine Operator CARDIOVASCULAR DISEASE 07/04/18 documented as of this encounter
--- OUTSIDE RECORDS SUMMARY | 2024-04-05 00:14 | XMS_ITS | Encounter Summary ---
Author Organization [facility] Address [facility] [place] [address] [place] [address] Care Team Providers Care Shell Mold Bonder Name Role Phone Joni Mckeon MD Unavailable [phone] Noemi Barnard MD Primary Care Provider [phone] Reason for Visit * Reason Comments Weight Loss Losing weight for th e past year and a lot of coughing. * Consultation (Routine) - Closed Specialty Diagnoses / Procedures Referred By Contlucio t Referred To Contact GASTROENTEROLOGY Diagnoses Weight loss Gastroesophageal reflux disease without esophagitis Diverticulitis Kamila Granger, [place] [address] [place] [address] Phone: tel: fax: [facility] [place] [id number] [place] [phone] Phone: tel: fax: Referral ID Status Reason Start Date Expiration Date Visits Re quested Visits Authorized [id number] Closed 02/02/2020 03/05/2021 1 1 Encounter Details Date Type Department Care Team (Latest Contact Info) Description 04/12/2020 1:00 PM LEACH RUNNER Office Visit [facility] Medical [facility] [place] [address] [place] [address] Nabila Francisco MD [address] [place] [address] Weight Loss (Losing weight for the past year and a lot of coughing.) Social History Tobacco Use Types Packs/Day Years [...] COVID-19? No / Unsure 04/12/2020 12:29 PM LEACH RUNNER documented as of this encounter Last Filed Vital Signs Vital Sign Reading Time Taken Comments Blood Pressure 139/88 04/12/2020 12:58 PM LEACH RUNNER Pulse 65 04/12/2020 12:58 PM LEACH RUNNER Temperature 36 ??C (96.8 ??F) 04/12/2020 12:58 PM LEACH RUNNER Respiratory Rate - - Oxygen Saturation 98% 04/12/2020 12:58 PM LEACH RUNNER Inhaled Oxygen Concentration - - Weight 48.5 kg (107 lb) 04/12/2020 12:58 PM LEACH RUNNER Height 160 cm (5' 3 ) 04/12/2020 12:58 PM LEACH RUNNER Body Mass Index 18.95 04/12/2020 12:58 PM LEACH RUNNER documented in this encounter Functional Status * [...] AM Laila Mina R N Active * Do you have [...] documented in this encounter Progress Notes * Nabila Francisco MD - 04/12/2020 1:00 PM CST Images from the original note were not [...] file Gets together: Not on file Attends sabianism service: Not on file Active member of [...] FRANCISCO MD 04/12/2020 Voice recognition software utilized H RUNNER documented in this encounter Plan of Treatment Not on file documented as of this encounter Goals Goal Patient Goal Type Associated Problems Recent Progress Patient-Stated? Author Improve Home Support System General No Laura Cheatham, RN Return home with [facility] home health General No Malgorzata Brown SPECIALIST ICU HOME WITH DAUGHTER General No Laura Cheatham RN documented as of this encounter Visit Diagnoses Diagnosis Dysphagia, unspecified type- Primary documented in this encounter Additional Health Concerns Infection Onset Date Last Indicated Resolved Time COVID-19 Rule Out 04/16/2020 04/16/2020 04/17/2020 6:26 PM LEACH RUNNER documented as of this encounter Care Teams Shell Mold Bonder Relationship Specialty Start Date End Date Noemi Barnard MD [facility]. [address] [address] PCP - General INTERNAL MEDICINE 08/23/18 03/03/23 Joni Mckeon MD [facility]. [address] [address] Tyler Hat Brim And Crown Laminating Operator CARDIOVASCULAR DISEASE 07/04/18 documented as of this encounter
--- OUTSIDE RECORDS SUMMARY | 2024-04-05 00:14 | XMS_ITS | Encounter Summary ---
Author Organization [facility] Address [address] [place] [address]. [place] [address] [place] [address] Care Team Providers Care Hot Dog Vender Name Role Phone Joni Mckeon MD Unavailable [phone] Noemi Barnard MD Primary Care Provider [phone] Reason for Visit * Reason Onset Date Comments Other 04/02/2020 Encounter Details Date Type Department Care Team (Late st Contact Info) Description 04/02/2020 Telephone [facility] Family & Internal Medicine [facility] [address] [place] [address] Noemi Barnard MD [id number] [place] [id number] Other Social History Tobacco Use Types Packs/Day [...] COVID-19? Unable to assess 03/26/2020 1:10 PM SUPERVISORY AIDE documented as of this encounter Functional Status [...] in this encounter Progress Notes * Nolvia Bolaños LPN - 04/02/2020 3:03 PM CST dtr called for a refill informed to call pharm V/U Pt now see Kamila Granger no further question RVISORY AIDE documented in this encounter Plan of Treatment Not on file documented as of this encounter Goals Goal Patient Goal Type Associated Problems Recent Progress Patient-Stated? Author Improve Home Support System General No Laura Cheatham, RN Return home with [facility] home health General No Malgorzata Brown MSW HOME WITH [facility] General No Laura Cheatham, RN documented as of this encounter Visit Diagnoses Not on filedocumented in this encounter Care Teams Hot Dog Vender Relationship Specialty Start Date End Date Noemi Barnard MD Three [facility]. [address] [address] PCP - General INTERNAL MEDICINE 08/23/18 03/03/23 Joni Mckeon MD Three [facility]. [address] [address] [place] Coin Purse Framer CARDIOVASCULAR DISEASE 07/04/18 documented as of this encounter
--- OUTSIDE RECORDS SUMMARY | 2024-04-05 00:14 | XMS_ITS | Encounter Summary ---
Author Organization [facility] Address [address] [place] [address]. [place] [address] [place] [address] Care Team Providers Care Personal Secretary Name Role Phone Joni Mckeon MD Unavailable [phone] Noemi Barnard MD Primary Care Provider [phone] Encounter Details Date Type Department Care Team (Latest Contact Info) Description 04/12/2020 Travel Social History Tobacco Use Types Packs/Day [...] COVID-19? No / Unsure 04/12/2020 12:29 PM SERVICE ORDER DISPATCHER documented as of this encounter Functional Status [...] HEALTH home health General No Malgorzata Brown, USER SUPPORT ANALYST HOME WITH DAUGHTER General No Laura Cheatham, RN documented as of this encounter Visit Diagnoses Not on filedocumented in this encounter Care Teams Personal Secretary Relationship Specialty Start Date End Date Noemi Barnard MD [facility]. [address] [address] PCP - General INTERNAL MEDICINE 08/23/18 03/03/23 Joni Mckeon MD Three [facility]. [facility] [address] [place] [address] [place] [employer] Em[employer] Supervisor CARDIOVASCULAR DISEASE 07/04/18 documented as of this encounter
--- OUTSIDE RECORDS SUMMARY | 2024-04-05 00:14 | XMS_ITS | Encounter Summary ---
Author Organization [facility] Address [address] [place] [address]. [place] [address] [place] [address] Care Team Providers Care Crystalizer Tender Name Role Phone Joni Mckeon MD Unavailable [phone] Noemi Barnard MD Primary Care Provider [phone] Reason for Visit * Reason Comments UTI follow up Encounter Details Date Type Department Care Team (Late st Contact Info) Description 03/14/2020 9:00 AM PROMOTIONS ASSOCIATE Telemedicine [facility] Medical Group Urology Specialty [facility] [id number] [place] [phone] Clemencia Miller MD [address] [place] [address] [place]OSH [address] UTI (follow up) Social History Tobacco Use Types Packs/Day Years [...] COVID-19? No / Unsure 03/11/2020 11:05 AM PROMOTIONS ASSOCIATE documented as of this encounter Functional [...] Progress Notes * Clemencia Miller MD - 03/14/2020 9:00 AM CST Roxana Ch is an 84-year-old female, presenting [...] and with urgency. She is taking Myrbetriq 25mg QD, and tolerates it without adverse side effects. Cystoscopy in October 2019 showed a mildly trabeculated bladder, with mild inflammation. She denies dysuria or hematuria, abdominal or pelvic pain. She denies fever chills. She has been working on improving her water intake, as well as double voiding. Bowel function is normal. She recently underwent pacemaker placement, complicated by a superficial infection of the wound site. She has recovered. PMH, PSH, SH, FH, Meds reviewed There were no vitals taken for this visit. Physical Exam Constitutional: She is oriented to [...] 01/31/2020 25 14 - 55 U/L Final Results for orders placed or performed during the hospital encounter of 07/30/19 URINALYSIS, AUTO, COMPLETE Result Value Ref Range COLOR (U) YELLOW TRANSPARENCY HAZY Specific Pillow (U) 1.015 1.000 - 1.030 U PH 5.5 5.0 - 9.0 LEUKOCYTE ESTERASE 1+ (A) NEGATIVE NITRITES NEGATIVE NEGATIVE PROTEIN (U) NEGATIVE NEGATIVE URINE GLUCOSE NEGATIVE NEGATIVE U KETONES TRACE (A) NEGATIVE BILIRUBIN (U) NEGATIVE NEGATIVE BLOOD NEGATIVE NEGATIVE WBC/HPF 5-10 0 - 5 /HPF RBC/HPF 0-5 0 - 5 /HPF EPI/HPF FEW /HPF URINE, OTHER CASTS HYALINE /LPF BACTERIA (URINE) FEW /HPF Imaging: EXAMINATION: Renal and bladder ultrasound EXAM [...] breakthrough infection on her current regimen. I did review behavioral measures for prevention of UTI. In addition, she is to continue methenamine, and vitamin C. 2. Overactive bladder. We discussed avoidance of lower urinary tract irritants and stimulants. I would also like to increase the dose of Myrbetriq to 50 mg. I will plan to have her follow-up in a three months. I introduced and identified myself, received verbal consent from the patient to proceed with this video visit and made the patient aware that the same confidentiality and information technology architect practices apply. The patient joined the video visit from Home. I completed the virtual visit from Home. Thefollowing clinical staff helped with this visit MA: Nancie Mason. Total Time Spent in Minutes: 10 CLEMENCIA MILLER MD 03/14/2020 OTIONS ASSOCIATE documented in this encounter Plan of Treatment Not on file documented as of this encounter Goals Goal Patient Goal Type Associated Problems Recent Progress Patient-Stated? Author Improve Home Support System General No Laura Cheatham, RN Return home with [facility] home health General No Malgorzata Brown LIFE SKILLS SPECIALIST HOME WITH DAUGHTER General No Laura Cheatham, RN documented as of this encounter Visit Diagnoses Diagnosis OAB (overactive bladder)- Primary Hypertonicity of bladder Recurrent UTI Urinary tract infection, site not specified documented in this encounter Care Teams Crystalizer Tender Relationship Specialty Start Date End Date Noemi Barnard MD [address] [address] PCP - General INTERNAL MEDICINE 08/23/18 03/03/23 Joni Mckeon MD [facility]. [address] [address] [place] Entry Engineer CARDIOVASCULAR DISEASE 07/04/18 documented as of this encounter
--- OUTSIDE RECORDS SUMMARY | 2024-04-05 00:14 | XMS_ITS | Encounter Summary ---
Author Organization [facility] Address [address] [place] [address]. [place] [address] [place] [address] Care Team Providers Care Pest Controller Assistant Name Role Phone Joni Mckeon MD Unavailable Noemi Barnard MD Primary Care Provider [phone] Encounter Details Date Type Department Care Team (Latest Contact Info) Description 04/16/2020 Travel Social History Tobacco Use Types Packs/Day [...] COVID-19? No / Unsure 04/16/2020 8:50 AM SDV PILOT/NAVIGATOR/DDS OPERATOR documented as of this encounter Functional [...] No Laura Cheatham, RN Return home with [facility] home health General No Malgorzata Brown, REGULATORY PRODUCT MANAGER HOME WITH DAUGHTER General No Laura Cheatham, RN documented as of this encounter Visit Diagnoses Not on filedocumented in this encounter Additional Health Concerns Infection Onset Date Last Indicated Resolved Time COVID-19 Rule Out 04/16/2020 04/16/2020 04/17/2020 6:26 PM SDV PILOT/NAVIGATOR/DDS OPERATOR documented as of this encounter Care Teams Pest Controller Assistant Relationship Specialty Start Date End Date Noemi Barnard MD [address] [address] PCP - General INTERNAL MEDICINE 08/23/18 03/03/23 Joni Mckeon MD [address] [place] [address] [place] [address] Christopher Dairy Equipment Repairer CARDIOVASCULAR DISEASE 07/04/18 documented as of this encounter
--- OUTSIDE RECORDS SUMMARY | 2024-04-05 00:14 | XMS_ITS | Encounter Summary ---
Author Organization [facility] Address [address] [place] [address]. [place] [address] [place] [address] Care Team Providers Care Billing Manager Name Role Phone Joni Mckeon MD Unavailable [phone] Noemi Jade MD Primary Care Provider Reason for Visit * Reason Comments Sick Sinus Syndrome [address] Encounter Details Date Type Department Care Team (Late st Contact Info) Description 03/11/2020 11:30 AM MERCHANDISING INTERN Office Visit [facility] [address] [place], [place] [id number] Charmaine Moseley PA-C Three [facility] [address] [address] [place], [place] [id number] Sick Sinus Syndrome ( [address] ) Social History Tobacco Use [...] COVID-19? No / Unsure 03/11/2020 11:05 AM MERCHANDISING INTERN documented as of this encounter Last Filed Vital Signs Vital Sign Reading Time Taken Comments Blood Pressure 140/82 03/11/2020 11:22 AM MERCHANDISING INTERN Pulse 65 03/11/2020 11:22 AM MERCHANDISING INTERN Temperature - - Respiratory Rate - - Oxygen Saturation 99% 03/11/2020 11:22 AM MERCHANDISING INTERN Inhaled Oxygen Concentration - - Weight 50.8 kg (112 lb) 03/11/2020 11:22 AM MERCHANDISING INTERN Height 160 cm (5' 3 ) 03/11/2020 11:22 AM MERCHANDISING INTERN Body Mass Index 19.84 03/11/2020 11:22 AM MERCHANDISING INTERN documented in this encounter Functional Status * [...] this encounter Patient Instructions * Patient Instructions* Maylin Kaufman - 03/11/2020 11:30 AM MERCHANDISING INTERN Images from the original note were not included. Patient Education Patient Education Sick Sinus Syndrome The Basics Written by the doctors and editors at [facility] What is sinus node dysfunction???--??Sinus node dysfunction is a heart condition that can cause dizziness, chest pain, and fainting. It is caused by a problem with the heart's electrical system. Doctors used to call this condition sick sinus syndrome. Normal heartbeats happen when an electrical signal starts in one spot near the top of the heart. This signal follows a path to spread across the heart. As it spreads, the signal makes the heart muscle squeeze. Each time the heart squeezes ( beats ), it pumps blood all over the body. Normally, the heart beats in a regular way 60 to 100 times a minute. In sinus node dysfunction, there is a problem with the spot that starts the heartbeat. Heartbeats don't start often enough. As a result, the heartbeat is slower than normal. Doctors use the term bradycardia when a heartbeat is slower than normal. Some people with sinus node dysfunction also have episodes when their heartbeat is too fast, called tachycardia. People with sinus node dysfunction can have episodes in which a fast heartbeat quickly changes to aslow heartbeat. Because of this, doctors sometimes use the terms tachycardia-bradycardia syndrome or tachy-jet syndrome to describe sinus node dysfunction. Different things can cause sinus node dysfunction, including heart conditions, other medical problems, and certain medicines. What are the symptoms of sinus node dysfunction???--??Some people with sinus node dysfunction have no symptoms. When symptoms do happen, they can include: ?? Feeling light-headed or dizzy ?? Fainting or feeling like you are going to faint ?? Trouble breathing, especially with exercise ?? Chest pain, especially with exercise or when under stress ?? Feeling like your heart is beating fast, beating hard, or skipping beats Is there a test for sinus node dysfunction???--??Yes. Your doctor or nurse will ask about your symptoms and do an exam. During the exam, they will check your pulse and listen to your heart. He or shewill do an ECG (also called electrocardiogram ). An ECG measures the electrical activity in your heart (figure 1). Your doctor might also do other tests. These can help show what's causing the sinus node dysfunction and check for other problems with your heart. These tests can include: ?? Longer-term heart monitoring - There are several devices that can be used for this. A Holter monitor is a small, portable machine you wear that records all your heart's electrical activity over 1 or 2 days (figure 2). There are also newer types of monitors called patch monitors. These go directly on the skin, without wires, and can be worn for up to 14 days. You wear these monitors all thetime while you go about your usual activities. ?? An exercise stress test - During this test, the doctor will record your ECG while you exercise on a treadmill or bike (figure 3). How is sinus node dysfunction treated???--??Treatment depends on whether you have symptoms or not, and what's causing your sinus node dysfunction. People who have no symptoms usually do not need treatment. But your doctor or nurse will see you for regular follow-ups to monitor your condition. People who have symptoms usually need treatment. Treatment can include: ?? Medicine changes - If a medicine is causing your sinus node dysfunction, the doctor will change or stop that medicine. ?? A pacemaker - This is the treatment used most often for sinus node dysfunction. A pacemaker is adevice that sits under the skin near a person's heart (figure 4). It sends electrical signals to the heart. These signals help the heart beat at a normal rate. ?? Medicines - Doctors sometimes treat sinus node dysfunction with heart medicines, but these don'tusually work as well as a pacemaker. All topics are updated as new evidence becomes available and our peer review process is complete. This topic retrieved from [employer] on: Feb 01, 2020. Topic 07814 Version 8.0 Release: 28.5.3 - C28.419 ?2019??[employer] and/or its affiliates.??All rights reserved. figure 1: Person having an ECG This drawing shows a man having an ECG (also called an electrocardiogram or EKG). He has patches, called electrodes, stuck onto his chest, arms, and legs. Wires run from the electrodes to the ECG machine. An ECG measures the electrical activity in the heart. Graphic 30982 Version 2.0 figure 2: Holter monitor People with possible heart problems are sometimes asked to wear a device called a Holter monitor for 1 or 2 days. The device measures the electrical activity in the heart. It helps doctors pinpoint heart rhythm problems. You will have electrodes stuck to your chest that are connected to wires leading to the monitor. These electrodes tell the monitor how often your heart beats and if it has a normal rhythm. While you have a Holter monitor on, you should do your normal activities but keep the electrodes, wires, and device dry. Some people have an abnormal heart rhythm only during certain activities or certain times of the day. Graphic 53890 Version 8.0 figure 3: Person having a stress test This drawing shows a person having a stress test. During a stress test, you either exercise (such as on a treadmill, shown here) or take medicine to make your heart pump faster. A test called an ECG (also called an electrocardiogram or EKG) is done during the stress test. For an ECG, patches (called electrodes )??are stuck to??your chest. Wires run from the patches to the ECG machine to measure the electrical activity in your heart. Your blood pressure??is also??checked??during a stress test. Graphic 01235 Version 4.0 figure 4: Pacemaker A pacemaker sits under the skin near a person's heart. Graphic 649720 Version 2.0 Consumer Information Use and Disclaimer This information [...] or not to accept your health care provider's advice, instructions or recommendations. Only your health care provider has the knowledge and training to provide advice that is right for you.The use of [employer] content is governed by the [employer] Terms of Use. ??2020 [employer]. All rights reserved. Copyright ?2020??[employer]. and/or its affiliates.??All rights reserved. HANDISING INTERN documented in this encounter Progress Notes * Charmaine Moseley PA-C - 03/11/2020 11:30 AM CST Reason for Visit: Sick Sinus Syndrome ( [address] ) History of Present Illness: Roxana Ch is a 84-year-old female with a past medical history of [...] remain stable. Noevents since patients last interrogation. We will continue with remote monitoring. Reviewed left arm restrictions for 2 more weeks. Her wound is well healed. No erythema, exudate, or induration noted. Remaining Steri stripes removed. Advised her the hiccups are not related to her device implant. Advised her try using Pepcid PRN in [...] today showed normally functioning dual chamber pacemaker Vázquez device. Full interrogation in [facility]Device clinic. Lead parameters: Battery V 3.07 V Year to CHIRAG 11.1 years Sensed (mV) Impedance (Ohms) Threshold (Volts@ms) Atrial 3.2 480 0.625 V @ 0.4 ms RV >12.0 460 0.5 V @ 0.4 ms Pacing mode DDDR 60-115 Pacing AP 60 %, RV 2.7 % Presenting Rhythm ASVS Underlying rhythm SR [...] Rfl: ??? donepezil 10 MG Tab, Take 10 mg by mouth every morning. , Disp: , Rfl: ??? levothyroxine 50 MCG tablet, Take 50 mcg by mouth every morning. Indications: Underactive Thyroid , Disp: 30 tablet, Rfl: ??? methenamine 1 g tablet, Take 1 tablet (1 g total) by mouth 2 (two) times daily with meals., Disp: 60 tablet, Rfl: 3 ??? nitrofurantoin 50 MG capsule, Take 1 capsule (50 mg total) by mouth nightly at bedtime., Disp: 30 capsule, Rfl: 2 ??? OMEPRAZOLE 20 MG capsule, TAKE 1 CAPSULE(20 MG) BY MOUTH DAILY, Disp: 90 capsule, Rfl: 0 ??? sertraline 100 MG tablet, Take 100 mg by mouth every morning. Indications: Depression, Disp: , Rfl: ??? vitamin C 250 MG tablet, Take 250 mg by mouth daily., Disp: , Rfl: ??? cephALEXin 500 MG capsule, Take 1 capsule (500 mg total) by mouth 2 (two) times daily for 7 days., Disp: 14 capsule, Rfl: 0 ??? mirabegron ER (MYRBETRIQ) 50 MG 24 hr tablet, Take 1 tablet (50 mg total) by mouth daily., Disp: 30 tablet, Rfl: 3 ??? PRAVASTATIN 40 MG tablet, TAKE 1 TABLET(40 MG) BY MOUTH EVERY NIGHT AT BEDTIME, Disp: 90 tablet, Rfl: 0 Allergies Allergen Reactions ??? Septra [...] and new or significant memory loss. Vitals: 03/11/20 1122 BP: 140/82 Pulse: 65 Weight: 50.8 kg (112 lb) Height: 5' 3 (1.6 m) Body mass index is 19.84 kg/m??. Cardiac Exam Rate/Rhythm: Normal rate and [...] Normal motor skills. Normal gait. Comments: Diagnoses/Impression: 1. SSS (sick sinus syndrome) (CMS/HCC) 2. Essential hypertension 3. Pacemaker Referring Provider: No ref. provider found PCP: NOEMI JADE MD HANDISING INTERN documented in this encounter Plan of Treatment Not on file documented as of this encounter Goals Goal Patient Goal Type Associated Problems Recent Progress Patient-Stated? Author Improve Home Support System General No Laura Cheatham, RN Return home with [facility] home health General No Malgorzata Brown, INSEAM TRIMMING MACHINE OPERATOR HOME WITH DAUGHTER General No Laura Cheatham, RN documented as of this encounter Visit Diagnoses Diagnosis SSS (sick sinus syndrome) (CMS/HCC [facility]/HCC)- Primary Sinoatrial node dysfunction Essential hypertension Unspecified essential hypertension Pacemaker Cardiac pacemaker in situ documented in this encounter Care Teams Billing Manager Relationship Specialty Start Date End Date [facility] [address] [address] PCP - General INTERNAL MEDICINE 08/23/18 03/03/23 Joni [facility]keon MD [facility] [address] [address] Christopher Bench Loom Weaver CARDIOVASCULAR DISEASE 07/04/18 documented as of this encounter
--- OUTSIDE RECORDS SUMMARY | 2024-04-05 00:14 | XMS_ITS | Encounter Summary ---
Author Organization [facility] Address [address] [place] [address]. [place] [address] [place] [address] Care Team Providers Care Small Machine Bindery Operator Name Role Phone Joni Mckeon MD Unavailable Noemi Barnard MD Primary Care Provider [phone] Encounter Details Date Type Department Care Team (Latest Contact Info) Description 02/27/2020 Travel Social History Tobacco Use Types Packs/Day [...] COVID-19? Unable to assess 02/27/2020 2:00 PM BRAND ENGINEER documented as of this encounter Functional Status [...] CENTER home health General No Malgorzata Brown, TECHNICAL PROGRAM MANAGER HOME WITH [facility] General No Laura Cheatham, RN documented as of this encounter Visit Diagnoses Not on filedocumented in this encounter Care Teams Small Machine Bindery Operator Relationship Specialty Start Date End Date Noemi Barnard MD [facility]. [address] [address] PCP - General INTERNAL MEDICINE 08/23/18 03/03/23 Joni Mckeon MD [facility]. [facility] [address] [place] [address] Christopher Sugar Mixer CARDIOVASCULAR DISEASE 07/04/18 documented as of this encounter
--- OUTSIDE RECORDS SUMMARY | 2024-04-05 00:14 | XMS_ITS | Encounter Summary ---
Author Organization [facility] Address [address] [place] [address]. [place] [address] [place] [address] Care Team Providers Care Model Artists' Name Role Phone Joni Mckeon MD Unavailable [phone] Noemi Jade MD Primary Care Provider Reason for Visit * Reason Comments Sick Sinus Syndrome s/p pacemaker Syncope Coronary Artery Disease Hypertension Encounter Details Date Type Department Care Team (Late st Contact Info) Description 02/21/2020 10:45 AM ONCOLOGY CONSULTANT [facility] [id number] [place] [phone] Joni Mckeon MD [address] [address] Sick Sinus Syndrome (s/p pacemaker ); Syncope; Coronary Artery Disease; Hypertension Social History Tobacco Use Types Packs/Day [...] COVID-19? No / Unsure 05/02/2020 3:58 PM ONCOLOGY CONSULTANT documented as of this encounter Last Filed Vital Signs Vital Sign Reading Time Taken Comments Blood Pressure 160/70 02/21/2020 10:15 AM ONCOLOGY CONSULTANT Pulse 69 02/21/2020 10:15 AM ONCOLOGY CONSULTANT Temperature - - Respiratory Rate - - Oxygen Saturation - - Inhaled Oxygen Concentration - - Weight 51.3 kg (113 lb) 02/21/2020 10:15 AM ONCOLOGY CONSULTANT Height 160 cm (5' 3 ) 02/21/2020 10:15 AM ONCOLOGY CONSULTANT Body Mass Index 20.02 02/21/2020 10:15 AM ONCOLOGY CONSULTANT documented in this encounter Functional Status [...] Instructions * Patient Instructions* Treasure Mojica - 02/21/2020 10:45 AM ONCOLOGY CONSULTANT Images from the original note were not included. Patient Education Patient Education Controlling Your Blood Pressure Through Lifestyle The Basics Written by the doctors and editors at [facility] What does my lifestyle have to do with my blood pressure???--??The things you do and the foods you eat have a big effect on your blood pressure and your overall health. Following the right lifestyle can: ?? Lower your blood pressure or keep you from getting high blood pressure in the first place ?? Reduce your need for blood pressure medicines ?? Make medicines for high blood pressure work better, if you do take them ?? Lower the chances that you'll have a heart attack or stroke, or develop kidney disease Which lifestyle choices will help lower my blood pressure???--??Here's what you can do: ?? Lose weight (if you are overweight) ?? Choose a diet rich in fruits, vegetables, and low-fat dairy products, and low in meats, sweets, and refined grains ?? Eat less salt (sodium) ?? Do something active for at least 30 minutes a day on most days of the week ?? Limit the amount of alcohol you drink If you have high blood pressure, it's also very important to quit smoking (if you smoke). Quitting smoking might not bring your blood pressure down. But it will lower the chances that you'll have a heart attack or stroke, and it will help you feel better and live longer. Start low and go slow??--??The changes listed above might sound like a lot, but don't worry. You don't have to change everything all at once. The hernández to improving your lifestyle is to start low and go slow. Choose 1 small, specific thing to change and try doing it for a while. If it works for you, keep doing it until it becomes a habit. If it doesn't, don't give up. Choose something else to change and see how that goes. Let's say, for example, that you would like to improve your diet. If you're the type of person who eats cheeseburgers and Setswana fries all the time, you can't switch to eating just salads from one day to the next. When people try to make changes like that, they often fail. Then they feel frustratedand tend to give up. So instead of trying to change everything about your diet in 1 day, change 1 or 2 small things about your diet and give yourself time to get used to those changes. For instance, keep the cheeseburger but give up the Setswana fries. Or eat the same things but cut your portions in half. As you find things that you are able to change and stick with, keep adding new changes. In time, you will see that you can actually change a lot. You just have to get used to the changes slowly. Lose weight??--??When people think about losing weight, they sometimes make it more complicated than it really is. To lose weight, you have to either eat less or move more. If you do both of those things, it's even better. But there is no single weight-loss diet or activity that's better than any other. When it comes to weight loss, the most effective plan is the one that you'll stick with. Improve your diet??--??There is no single diet that is right for everyone. But in general, a healthy diet can include: ?? Lots of fruits, vegetables, and whole grains ?? Some beans, peas, lentils, chickpeas, and similar foods ?? Some nuts, such as walnuts, almonds, and peanuts ?? Fat-free or low-fat milk and milk products ?? Some fish To have a healthy diet, it's also important to limit or avoid sugar, sweets, meats, and refined grains. (Refined grains are found in white bread, white rice, most forms of pasta, and most packaged snack foods.) Reduce salt??--??Many people think that eating a low-sodium diet means avoiding the salt shaker andnot adding salt when cooking. The truth is, not adding salt at the table or when you cook will onlyhelp a little. Almost all of the sodium you eat is already in the food you buy at the grocery storeor at restaurants (figure 1). The most important thing you can do to cut down on sodium is to eat less processed food. That meansthat you should avoid most foods that are sold in cans, boxes, jars, and bags. You should also eat in restaurants less often. To reduce the amount of sodium you get, buy fresh or fresh-frozen fruits, vegetables, and meats. (Fresh-frozen foods have had nothing added to them before freezing.) Then you can make meals at home, from scratch, with these ingredients. As with the other changes, don't try to cut out salt all at once. Instead, choose 1 or 2 foods thathave a lot of sodium and try to replace them with low- sodium choices. When you get used to those low-sodium options, find another food or 2 to change. Then keep going, until all the foods you eat aresodium-free or low in sodium. Become more active??--??If you want to be more active, you don't have to go to the gym or get all sweaty. It is possible to increase your activity level while doing everyday things you enjoy. Walking, gardening, and dancing are just a few of the things that you might try. As with all the other changes, the hernández is not to do too much too fast. If you don't do any activity now, start by walking for just a few minutes every other day. Do that for a few weeks. If you stick with it, try doing it for longer. But if you find that you don't like walking, try a different activity. Drink less alcohol??--??If you are a woman, do not have more than 1 standard drink of alcohol a day. If you are a man, do not have more than 2. A standard drink is: ?? A can or bottle that has 12 ounces of beer ?? A glass that has 5 ounces of wine ?? A shot that has 1.5 ounces of whiskey Where should I start???--??If you want to improve your lifestyle, start by making the changes that you think would be easiest for you. If you used to exercise and just got out of the habit, maybe it would be easy for you to start exercising again. Or if you actually like cooking meals from scratch,maybe the first thing you should focus on is eating home-cooked meals that are low in sodium. Whatever you tackle first, choose specific, realistic goals, and give yourself a deadline. For example, do not decide that you are going to exercise more. Instead, decide that you are going to walkfor 10 minutes on Wednesday, Wednesday, and Wednesday, and that you are going to do this for the next 2 weeks. When lifestyle changes are too general, people have a hard time following through. Now go. You can do it! All topics are updated as new evidence becomes available and our peer review process is complete. This topic retrieved from [employer] on: Feb 01, 2020. Topic 31513 Version 7.0 Release: 28.5.3 - C28.419 ?2019??[employer] and/or its affiliates.??All rights reserved. figure 1: Sources of sodium in your diet Graphic 11269 Version 2.0 Consumer Information Use and Disclaimer [...] that is right for you.The use of [employer] content is governed by the [employer] Terms of Use. ??2020 [employer]. All rights reserved. Copyright ?2019??[employer]. and/or its affiliates.??All rights reserved. LOGY CONSULTANT documented in this encounter Progress Notes * Joni Mckeon MD - 02/21/2020 12:53 PM CST LOGY CONSULTANT LOGY CONSULTANT * Joni Mckeon MD - 02/21/2020 12:00 AM CST REASON FOR FOLLOWUP: History of syncope, status post permanent pacemaker. HISTORY OF PRESENT ILLNESS: An 84-year-old woman who is well known to me. 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 Overall, patient has been doing well. Her weights have been stable, although she has lost weight earlier this year. In discussion with the patient's daughter, she appears to have a little more energy. They are concerned about a small lesion at the pacemaker site, which is a small vesicle fluid-filled lesion. She has a little bit of pain, but no other complaints. IMPRESSION AND RECOMMENDATION: 1. Syncope and bradycardia. The patient needs to continue her current medications. I am going to give her 7 days of antibiotics. I advised them to monitor and do dressing changes regarding the lesion. She has a scheduled followup with Dr. Mcnulty in approximately 2 weeks. I advised them to keep that. Patient will see us back in July or sooner as needed. Medications: Current Outpatient Medications: ??? aspirin EC 81 MG EC tablet, Take 81 mg by mouth daily. Indications: Anticoagulant Therapy, Disp: , Rfl: ??? Cholecalciferol (VITAMIN D) 2000 units Cap, Take 2,000 Units by mouth daily. Indications: Nutritional Support, Disp: , Rfl: ??? donepezil 10 MG Tab, Take two tabs PO QAM, Disp: , Rfl: ??? nitrofurantoin 50 MG capsule, Take 1 capsule (50 mg total) by mouth nightly at bedtime. (Patient not taking: Reported on 04/15/2020), Disp: 30 capsule, Rfl: 2 ??? OMEPRAZOLE 20 MG capsule, TAKE 1 CAPSULE(20 MG) BY MOUTH DAILY, Disp: 90 capsule, Rfl: 0 ??? sertraline 100 MG tablet, Take 100 mg by mouth every morning. Indications: Depression, Disp: , Rfl: ??? vitamin C 250 MG tablet, Take 250 mg by mouth daily., Disp: , Rfl: ??? AMLODIPINE 5 MG tablet, TAKE 1 TABLET BY MOUTH DAILY, Disp: 90 tablet, Rfl: 1 ??? BENAZEPRIL 20 MG tablet, TAKE 1 TABLET(20 MG) BY MOUTH DAILY, Disp: 90 tablet, Rfl: 1 ??? cephALEXin 500 MG capsule, Take 1 capsule (500 mg total) by mouth 2 (two) times daily for 7 days. (Patient not taking: Reported on 04/15/2020), Disp: 14 capsule, Rfl: 0 ??? LEVOTHYROXINE 50 MCG tablet, TAKE 1 [...] DAILY, Disp: 30 tablet, Rfl: 3 ??? PRAVASTATIN 40 MG tablet, TAKE 1 TABLET(40 MG) BY MOUTH EVERY NIGHT AT BEDTIME, Disp: 90 tablet, Rfl: 0 ??? propranolol 10 MG tablet, Take 10 mg by mouth daily., Disp: , Rfl: ??? risperiDONE 0.5 MG tablet, Take 0.5 mg by mouth nightly at bedtime., Disp: , Rfl: Allergies Allergen Reactions ??? Septra [Sulfamethoxazole-Trimethoprim] Rash [...] new or significant memory loss. Filed Vitals: 02/21/20 1015 BP: (!) 160/70 Pulse: 69 Weight: 51.3 kg (113 lb) Height: 5' [...] S4 sound and No murmur. Cardiovascular Comments: Diagnoses/Impression: No diagnosis found. Referring Provider: No ref. provider found PCP: NOEMI JADE MD LOGY CONSULTANT LOGY CONSULTANT documented in this encounter Plan of Treatment Not on file documented as of this encounter Goals Goal Patient Goal Type Associated Problems Recent Progress Patient-Stated? Author Improve Home Support System General No Laura Cheatham, RN Return home with [facility] home health General No KevinMalgorzata, VOLUNTEER RECRUITMENT COORDINATOR HOME WITH DAUGHTER General No Laura Cheatham, RN documented as of this encounter Visit Diagnoses Diagnosis SSS (sick sinus syndrome) ([facility]/HCC [facility]/HCC)- Primary Sinoatrial node dysfunction Essential hypertension Unspecified essential hypertension documented in this encounter Care Teams Model Artists' Relationship Specialty Start Date End Date Noemi Jade MD [facility]. [address] [address] PCP - General INTERNAL MEDICINE 08/23/18 03/03/23 Joni Mckeon MD [facility]. [address] [address] Christopher Kinesiology Professor CARDIOVASCULAR DISEASE 07/04/18 documented as of this encounter
--- OUTSIDE RECORDS SUMMARY | 2024-04-05 00:15 | XMS_ITS | Encounter Summary ---
Author Organization [facility] Address [address] [place] [address]. [place] [address] [place] [address] Care Team Providers Care Overhead Crane Technician Name Role Phone Joni Mckeon MD Unavailable [phone] Noemi Barnard MD Primary Care Provider [phone] Encounter Details Date Type Department Care Team (Late st Contact Info) Description 02/15/2020 Scan [facility], [address] [address] Scanned, Documents Social History Tobacco Use Types [...] have Coronavirus / COVID-19? No / Unsure 02/15/2020 9:55 AM BILLBOARD ERECTOR HELPER documented as of this encounter Functional Status [...] No Laura Cheatham, RN Return home with [facility] home health General No Malgorzata Brown TRANSLATOR INTERPRETER HOME WITH [facility] General No Laura Cheatham, RN documented as of this encounter Visit Diagnoses Not on filedocumented in this encounter Care Teams Overhead Crane Technician Relationship Specialty Start Date End Date Noemi Barnard MD [facility] [address] [place] [address] PCP - General INTERNAL MEDICINE 08/23/18 03/03/23 Joni Mckeon MD [facility]. [facility] [address] [place] [address] Christopher Wallpaper Inspector CARDIOVASCULAR DISEASE 07/04/18 documented as of this encounter
--- OUTSIDE RECORDS SUMMARY | 2024-04-05 00:15 | XMS_ITS | Encounter Summary ---
Author Organization [facility] Address [address] [place] [address]. [place], [place] [address] [place] [address] Care Team Providers Care Grid Inspector Name Role Phone Joni Mckeon MD Unavailable [phone] Noemi Barnard MD Primary Care Provider [phone] Encounter Details Date Type Department Care Team (Latest Contact Info) Description 01/09/2020 Travel Social History Tobacco Use Types Packs/Day [...] 02/04 PHQ-2 Answer Date Recorded PHQ-2 Score 0 03/08/2019 Comments No Sex and Gender Information Value [...] have Coronavirus / COVID-19? No / Unsure 01/09/2020 11:26 AM CDT documented as of this encounter [...] [facility] home health General No Malgorzata Brown MSW HOME WITH DAUGHTER General No Laura Cheatham, RN documented as of this encounter Visit Diagnoses Not on filedocumented in this encounter Care Teams Grid Inspector Relationship Specialty Start Date End Date Noemi Barnard MD [facility]. [address] [address] PCP - General INTERNAL MEDICINE 08/23/18 03/03/23 Joni Mckeon MD [facility]. [facility] [address] [place] [address] Christopher Service Center Technician CARDIOVASCULAR DISEASE 07/04/18 documented as of this encounter
--- OUTSIDE RECORDS SUMMARY | 2024-04-05 00:15 | XMS_ITS | Encounter Summary ---
Author Organization [facility] Address [address] [place] [address]. [place] [address] [place] [address] Care Team Providers Care Tactical Air Control Party Manager Name Role Phone Joni Mckeon MD Unavailable [phone] Noemi Barnard MD Primary Care Provider [phone] Encounter Details Date Type Department Care Team (Late st Contact Info) Description 02/05/2020 Pre-Procedure Call [facility] [place], [place] [id number] Cruzito Mcnulty MD [facility]. [address] [place] [place] [address] Social History Tobacco Use Types Packs/Day [...] have Coronavirus / COVID-19? No / Unsure 01/31/2020 1:41 PM CDT documented as of this encounter [...] [facility] home health General No aMlgorzata Brown SCIENTIFIC ILLUSTRATOR HOME WITH DAUGHTER General No Laura Cheatham, RN documented as of this encounter Visit Diagnoses Not on filedocumented in this encounter Care Teams Tactical Air Control Party Manager Relationship Specialty Start Date End Date Noemi Barnard MD [address] [address] PCP - General INTERNAL MEDICINE 08/23/18 03/03/23 Joni Mckeon MD Three [facility]. [facility] [address] [place] [address] Christopher Bindery Machine Tender CARDIOVASCULAR DISEASE 07/04/18 documented as of this encounter
--- OUTSIDE RECORDS SUMMARY | 2024-04-05 00:15 | XMS_ITS | Encounter Summary ---
Author Organization [facility] Address [address] [place] [address]. [place] [address] [place] [address] Care Team Providers Care State Epidemiologist Name Role Phone Joni Mckeon MD Unavailable [phone] Noemi Barnard MD Primary Care Provider [phone] Reason for Visit * Reason Onset Date Comments Lab Results 02/14/2020 Encounter Details Date Type Department Care Team (Late st Contact Info) Description 02/14/[address] [address] Noemi Miller, defect cutter Results Social History Tobacco Use Types Packs/Day Years [...] COVID-19? No / Unsure 02/15/2020 9:55 AM SCHOOL PROGRAM DIRECTOR documented as of this encounter Functional Status [...] documented in this encounter Progress Notes * Noemi Miller RN - 02/14/2020 2:50 PM CST I called the patient to verify that she received her instructions for her procedure tomorrow and COVID results. I left a voicemail for the patient to call our office. The office number and my extension were provided. OL PROGRAM DIRECTOR documented in this encounter Plan of Treatment Not on file documented as of this encounter Goals Goal Patient Goal Type Associated Problems Recent Progress Patient-Stated? Author Improve Home Support System General No Laura Cheatham, RN Return home with [facility] home health General No Malgorzata Brown CASINO GAMING WORKER HOME WITH DAUGHTER General No Laura Cheatham, RN documented as of this encounter Visit Diagnoses Not on filedocumented in this encounter Care Teams State Epidemiologist Relationship Specialty Start Date End Date Noemi Barnard MD [address] [address] PCP - General INTERNAL MEDICINE 08/23/18 03/03/23 Joni Mckeon MD [address] [address] [place] Weather Algorithm Scientist CARDIOVASCULAR DISEASE 07/04/18 documented as of this encounter
--- OUTSIDE RECORDS SUMMARY | 2024-04-05 00:15 | XMS_ITS | Encounter Summary ---
Author Organization [facility] Address [address] [place] [address]. [place] [address] [place] [address] Care Team Providers Care Receivable Manager Name Role Phone Joni Mckeon MD Unavailable [phone] Noemi Barnard MD Primary Care Provider [phone] Encounter Details Date Type Department Care Team (Latest Contact Info) Description 01/31/2020 1:47 PM CDT - 01/31/2020 11:59 PM CDT Hospital Encounter [facility] [address] [place], [place] [id number] [place] [address] [place] [address] Discharge Disposition: Home or Self Care (Routine [...] tablet Take 250 mg by mouth daily. amLODIPine 5 MG tablet Take 1 tablet (5 mg total) by mouth daily. 90 tablet 1 09/20/2019 0 benazepril 20 MG tablet Take 1 tablet (20 mg total) by mouth daily. 90 tablet 01/23/2020 1 levothyroxine 50 MCG tabletIndication s:Hypothyroidism Take 50 mcg by mouth every morning. Indications: Underactive Thyroid 30 tablet 11/08/2019 0 methenamine 1 g tabletIndication s:Recurrent UTI Take 1 tablet (1 g total) by mouth 2 (two) times daily with meals. 60 tablet 3 12/14/2019 0 mirabegron ER (MYRBETRIQ) 25 MG 24 hr tabletIndication s:Recurrent UTI Take 1 tablet (25 mg total) by mouth daily. 30 tablet 3 12/14/2019 0 nitrofurantoin 50 MG capsuleIndicatio ns:Recurrent UTI Take 1 capsule (50 mg total) by mouth nightly at bedtime. 30 capsule 2 10/19/2019 2 OMEPRAZOLE 20 MG capsuleIndicatio ns:Gastroesophag eal reflux disease with esophagitis TAKE 1 CAPSULE(20 MG) BY MOUTH DAILY 90 capsule 12/06/2019 1 PRAVASTATIN 40 MG tabletIndication s:Hyperlipidemia TAKE 1 TABLET(40 MG) BY MOUTH EVERY NIGHT AT BEDTIME 90 tablet 12/18/2019 0 documented as of this encounter Plan of Treatment Not on file documented as of this encounter Goals Goal Patient Goal Type Associated Problems Recent Progress Patient-Stated? Author Improve Home Support System General No Laura Cheatham RN Return home with [facility] home health General No Malgorzata Brown ENTERPRISE SECURITY ARCHITECT HOME WITH DAUGHTER General No Laura Cheatham RN documented as of this encounter Procedures Procedure Name Priority Date/Time Associated Diagnosis Comments XR PELVIS+LT HIP 2V Routine 01/31/2020 2 :44 PM CDT Hip pain, left documented in this encounter Results * XR PELVIS+LT HIP 2V (01/31/2020 2:44 PM CDT) Anatomical Region Laterality Modality Hip, Pelvis Radiographic Lacy ging 01/31/2020 2:54 PM CDT Impressions 01/31/2020 2:55 PM CDT FINDINGS AND IMPRESSION: 1. ??No definitive evidence of acute fracture or dislocation. No destructive or lytic lesions. No radiopaque foreign bodies or abnormal soft tissue calcifications noted. 2. ??Mild degenerative changes of the hips, symphysis pubis, sacroiliac joints. 3. ??Constipation Interpreted By: Geronimo Parker, 01/31/2020 2:54 PM Narrative 01/31/2020 2:55 PM CDT IMAGING STUDIES: ??XR PELVIS+LT HIP 2V ? DATE: ??01/31/2020 2:06 PM COMPARISON STUDIES: No previous available. ?? CLINICAL HISTORY: ??Left hip and pelvic pain ?? . Additional history Procedure Note Geronimo Parker MD - 01/31/2020 IMAGING STUDIES: XR PELVIS+LT HIP 2V DATE: 01/31/2020 2:06 PM COMPARISON STUDIES: No previous available. CLINICAL HISTORY: Left hip and pelvic pain . Additional history FINDINGS AND IMPRESSION: 1. No definitive evidence of acute fracture or dislocation. Nodestructive or lytic lesions. No radiopaque foreign bodies or abnormal soft tissue calcifications noted. 2. Mild degenerative changes of the hips, symphysis pubis, sacroiliac joints. 3. Constipation Interpreted By: Geronimo Parker, 01/31/2020 2:54 PM [facility] Final Result documented in this encounter Visit Diagnoses Diagnosis Hip pain, left Pain in joint, pelvic region and thigh documented in this encounter Care Teams Receivable Manager Relationship Specialty Start Date End Date Noemi Barnard MD [address] [address] PCP - General INTERNAL MEDICINE 08/23/18 03/03/23 Joni Mckeon MD Three [facility]. [address] [address] [place] Wood Furniture Assembler CARDIOVASCULAR DISEASE 07/04/18 documented as of this encounter
--- OUTSIDE RECORDS SUMMARY | 2024-04-05 00:15 | XMS_ITS | Encounter Summary ---
Author Organization [facility] Address [address] [place] [address]. [place] [address] [place] [address] Care Team Providers Care Graphics Production Specialist Name Role Phone Joni Mckeon MD Unavailable [phone] Noemi Barnard MD Primary Care Provider [phone] Encounter Details Date Type Department Care Team (Latest Contact Info) Description 01/02/2020 Scan HEALTH INFO SRVCS Scanned, Documents Social [...] No Laura Cheatham, RN Return home with [facility] home health General No Malgorzata Brown, SPRAY II PAINTER HOME WITH DAUGHTER General No Laura Cheatham, RN documented as of this encounter Visit Diagnoses Not on filedocumented in this encounter Care Teams Graphics Production Specialist Relationship Specialty Start Date End Date Noemi Barnard MD [facility]. [address] [address] PCP - General INTERNAL MEDICINE 08/23/18 03/03/23 Joni Mckeon MD [facility]. [facility] [address] [place] [address] Christopher Trust Administrator CARDIOVASCULAR DISEASE 07/04/18 documented as of this encounter
--- OUTSIDE RECORDS SUMMARY | 2024-04-05 00:15 | XMS_ITS | Encounter Summary ---
Author Organization [facility] Address [address] [place] [address]. [place] [address] [place] [address] Care Team Providers Care Carbon Sequestration Plant Engineer Name Role Phone Joni Mckeon MD Unavailable [phone] Noemi Barnard MD Primary Care Provider [phone] Encounter Details Date Type Department Care Team (Late st Contact Info) Description 02/12/2020 10:30 AM [facility] - 02/12/2020 11:59 PM [facility] Hospital Encounter [facility] [place], [place] [address] Cruzito Mcnulty MD [facility]. [place] [address] [place], [place] [id number] Discharge Disposition: Home or Self Care (Routine [...] have Coronavirus / COVID-19? 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 HOME WITH DAUGHTER General No Laura Cheatham RN documented as of this encounter Procedures Procedure Name Priority Date/Time Associated Diagnosis Comments CORONAVIRUS (COVID 19) Routine 02/12/2020 9:35 AM EARTH SCIENCE TECHNICIAN Pre-op testing documented in this encounter Results * PRE-SURGICAL/PRE-PROCEDURE CORONAVIRUS (COVID 19) (02/12/2020 9:35 AM EARTH SCIENCE TECHNICIAN) CORONAVIRUS SARS COV 2 PCR (RESP) NOT DETECTED NOT DETECTED 02/13/2020 8:51 AM [facility] Comment: A Not Detected (negative) test result [...] providers and patients using the following websites: https://www.[employer]/home/Covid-19/HCP/[facility]/fact- sheet.html https://www.[employer]/home/Covid-19/Patients/ [facility]/fact-sheet.html This test has been authorized by the FDA under an Emergency Use Authorization (EUA) for use by authorized laboratories. Due to the current public health emergency, [facility] is receiving a high volume of samples [...] about COVID-19 can be found at the [facility] website: www.[employer]/Covid19. Test performed at [facility] [address] ??[id number] Director: JODIE PUENTE DO,MPH FIRST TEST NO 02/12/2020 1:51 PM [facility] EMPLOYED IN HEALTHCARE NO 02/12/2020 1:51 PM [facility] SYMPTOMATIC DEFINED BY CDC NO 02/12/2020 1:51 PM EARTH SCIENCE TECHNICIAN [facility] DATE OF SYMPTOM ONSET NO 02/12/2020 2:27 PM EARTH SCIENCE TECHNICIAN [facility] HOSPITALIZATION STATUS NO 02/12/2020 1:51 PM EARTH SCIENCE TECHNICIAN [facility] PATIENT IN ICU NO 02/12/2020 1:51 PM EARTH SCIENCE TECHNICIAN [facility] RESIDENT OF CONGREGATE CARE NO 02/12/2020 1:51 PM EARTH SCIENCE TECHNICIAN [facility] NOT 02/12/2020 2:27 PM EARTH SCIENCE TECHNICIAN [facility] PATIENT'S RACE WHITE OR 02/12/2020 1:51 PM EARTH SCIENCE TECHNICIAN [facility] ETHNICITY NONHISPANIC 02/12/2020 1:51 PM EARTH SCIENCE TECHNICIAN [facility] SOURCE (QST) NASOPHARYNGEAL SWAB 02/12/2020 1:51 PM EARTH SCIENCE TECHNICIAN [facility] NASOPHARYNGEAL SWAB / Unknown 02/12/2020 9:35 AM EARTH SCIENCE TECHNICIAN Cruzito Mcnulty MD MICROBIOLOGY - GENERAL ORDERABLE S Final Result [facility] [address] [place] [address], [facility] [id number] [place] [address], documented in this encounter Visit Diagnoses Diagnosis Pre-op testing Preoperative examination, unspecified documented in this encounter Additional Health Concerns Infection Onset Date Last Indicated Resolved Time COVID-19 Rule Out 02/12/2020 02/12/2020 02/13/2020 8:51 AM EARTH SCIENCE TECHNICIAN documented as of this encounter Care Teams Carbon Sequestration Plant Engineer Relationship Specialty Start Date End Date Noemi Barnard MD [facility]. [address] [address] PCP - General INTERNAL MEDICINE 08/23/18 03/03/23 Joni Mckeon MD [facility]. [facility] [address] [place] [address] Christopher Ski Binding Fitter And Repairer CARDIOVASCULAR DISEASE 07/04/18 documented as of this encounter
--- OUTSIDE RECORDS SUMMARY | 2024-04-05 00:15 | XMS_ITS | Encounter Summary ---
Author Organization [facility] Address [address] [place] [address]. [place] [address] [place] [address] Care Team Providers Care Circular Saw Operator Name Role Phone Joni Mckeon MD Unavailable [phone] Noemi Barnard MD Primary Care Provider [phone] Encounter Details Date Type Department Care Team (Latest Contact Info) Description 02/15/2020 Travel Social History Tobacco Use Types Packs/Day [...] COVID-19? No / Unsure 02/15/2020 9:55 AM MARKING MACHINE OPERATOR documented as of this encounter [...] [facility] home health General No Malgorzata Brown, INTERNAL AUDIT SENIOR MANAGER HOME WITH [facility] General No Laura Cheatham, RN documented as of this encounter Visit Diagnoses Not on filedocumented in this encounter Care Teams Circular Saw Operator Relationship Specialty Start Date End Date Noemi Barnard MD [facility]. [address] [address] PCP - General INTERNAL MEDICINE 08/23/18 03/03/23 Joni Mckeon MD [facility]. [facility] [address] [place] [address] [employer] Sales Executive CARDIOVASCULAR DISEASE 07/04/18 documented as of this encounter
--- OUTSIDE RECORDS SUMMARY | 2024-04-05 00:15 | XMS_ITS | Encounter Summary ---
Author Organization [facility] Address [address] [place] [address]. [place] [address] [place] [address] Care Team Providers Care Metal Machinist Name Role Phone Joni Mckeon MD Unavailable [phone] Noemi Barnard MD Primary Care Provider [phone] Encounter Details Date Type Department Care Team (Latest Contact Info) Description 01/30/2020 Travel Social History Tobacco Use Types Packs/Day [...] have Coronavirus / COVID-19? 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 [address] [address] PCP - General INTERNAL MEDICINE 08/23/18 03/03/23 Joni Mckeon MD Three [facility]. [facility] [address] [place] [address] [place] Cash Office Worker CARDIOVASCULAR DISEASE 07/04/18 documented as of this encounter
--- OUTSIDE RECORDS SUMMARY | 2024-04-05 00:15 | XMS_ITS | Encounter Summary ---
Author Organization [facility] Address [address] [place] [address]. [place], [place] [address] [place] [address] Care Team Providers Care Flow Worker Name Role Phone Joni Mckeon MD Unavailable [phone] Noemi Barnard MD Primary Care Provider [phone] Encounter Details Date Type Department Care Team (Latest Contact Info) Description 01/23/2020 Travel Social History Tobacco Use Types Packs/Day [...] have Coronavirus / COVID-19? No / Unsure 01/23/2020 12:21 PM CDT documented as of this encounter [...] No Laura Cheatham, RN Return home with [facility] home health General No Malgorzata Brown MSW HOME WITH DAUGHTER General No Laura Cheatham, RN documented as of this encounter Visit Diagnoses Not on filedocumented in this encounter Care Teams Flow Worker Relationship Specialty Start Date End Date Noemi Barnard MD [facility]. [address] [address] PCP - General INTERNAL MEDICINE 08/23/18 03/03/23 Joni Mckeon MD [facility]. [facility] [address] [place] [address] Christopher Drag Seiner CARDIOVASCULAR DISEASE 07/04/18 documented as of this encounter
--- OUTSIDE RECORDS SUMMARY | 2024-04-05 00:15 | XMS_ITS | Encounter Summary ---
Author Organization [facility] Address [address] [place] [address]. [place] [address] [place] [address] Care Team Providers Care Excavating Machine Operator Name Role Phone Joni Mckeon MD Unavailable [phone] Noemi Barnard MD Primary Care Provider Encounter Details Date Type Department Care Team (Late st Contact Info) Description 01/31/2020 1:40 PM CDT - 01/31/2020 1:43 PM CDT Hospital Encounter [facility] [address] [place], [place] [id number] Cruzito Mcnulty MD [address] [id number] Discharge Disposition: Home or Self Care (Routine [...] No Laura Cheatham RN Return home with [facility] home health General No Malgorzata Brown 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 HOME WITH DAUGHTER General No Laura Cheatham RN documented as of this encounter Procedures Procedure Name Priority Date/Time Associated Diagnosis Comments TSH W/REFLEX Routine 01/31/2020 1:47 PM CDT Hypothyroidism, unspecified type MRSA SCREENING Routine 01/31/2020 1:47 PM CDT Bradycardia Essential hypertension PROTHROMBIN TIME, VENOUS Routine 01/31/2020 1:47 PM CDT Bradycardia Essential hypertension COMPREHENSIVE METABOLIC PANEL Routine 01/31/2020 1:47 PM CDT Weight loss CBC W/DIFF AUTOMATED Routine 01/31/2020 1:47 PM CDT Weight loss Hypothyroidism, unspecified type THYROXINE, FREE (FT4) Routine 01/31/2020 1:47 PM CDT documented in this encounter Results * THYROXINE, FREE (FT4) (01/31/2020 1:47 PM CDT) FREE T4 0.98 0.76 - 1.46 NG/DL 01/31/2020 3:30 PM CDT [facility] 01/31/2020 1:47 PM CDT us [facility] Final Result Performing Organization Address City/[facility]/ZIP Co de Phone Number [facility] [address] [place] [address], [place] [phone] * MRSA SCREENING (01/31/2020 1:47 PM CDT) SPEC DESCRIPTION NASAL 01/31/2020 1:45 PM CDT [facility] SPECIAL REQUESTS NO SPECIAL REQUEST 01/31/2020 1:45 PM CDT [facility] CULTURE RESULT NO METHICILLIN RESISTANT STAPH AUREUS ISOLATED 02/01/2020 4:00 PM CDT [facility] SPECIMEN FROM INTERNAL NOSE / Unknown 01/31/2020 1:47 PM CDT 01/31/2020 1:48 PM CDT Cruzito Mcnulty MD MICROBIOLOGY - GENERAL ORDERABLE S Final Result Performing Organization Address [facility]/ZIP Co de Phone Number [facility] [address] [place] [address], [place] [phone] * (ABNORMAL) PROTIME/INR, VENOUS (01/31/2020 1:47 PM CDT) [facility] PROTIME 13.9(H) 9.1 - 12.4 SEC 01/31/2020 2:41 PM CDT [facility] INR 1.2 01/31/2020 2:41 PM CDT [facility] Comment: Recommend INR ranges for Oral Anticoagulant Therapy: Mechanical Cardiac Values 2.5-3.5 All others indication 2.0-3.0 01/31/2020 1:47 PM CDT Cruzito Mcnulty MD LABORATORY Final Result [facility] [address] [place] [address], [place] [phone] * (ABNORMAL) CBC W/DIFF AUTOMATED (01/31/2020 1:47 PM CDT) [facility] WBC 7.1 4.4 - 11.0 x10'3/uL 01/31/2020 2:23 PM CDT [facility] RBC 4.48(L) 4.50 - 5.10 x10'6/uL 01/31/2020 2:23 PM CDT [facility] HGB 12.0(L) 12.3 - 15.3 G/DL 01/31/2020 2:23 PM CDT [facility] HCT 38.3 35.9 - 44.6 % 01/31/2020 2:23 PM CDT [facility] MCV 85.5 80.0 - 96.0 FL 01/31/2020 2:23 PM CDT [facility] MCH 26.8 25.3 - 30.9 PG 01/31/2020 2:23 PM CDT [facility] MCHC 31.3 31.0 - 34.1 G/DL 01/31/2020 2:23 PM CDT [facility] RDW 15.1 12.4 - 15.1 % 01/31/2020 2:23 PM CDT [facility] PLT 303 151 - 353 x10'3/uL 01/31/2020 2:23 PM T [facility] MPV 9.8 9.6 - 12.0 FL 01/31/2020 2:23 PM CDT [facility] RBC MORPHOLOGY NORMAL 01/31/2020 2:23 PM T [facility] PLT MORPH. NORMAL 01/31/2020 2:23 PM T [facility] WBC MORPHOLOGY NORMAL 01/31/2020 2:23 PM T [facility] LYMPHOCYTES % 10.8(L) 15.8 - 45.0 % 01/31/2020 2:23 PM T [facility] NEUTROPHILS % 80.6(H) 42.1 - 71.9 % 01/31/2020 2:23 PM T [facility] MONOCYTES % 6.9 5.7 - 12.5 % 01/31/2020 2:23 PM T [facility] EOSINOPHILS 1.3 0.0 - 5.6 % 01/31/2020 2:[address] [facility] BASOPHILS 0.3 0.0 - 1.3 % 01/31/2020 2:23 PM T [facility] ABS. NEUTROPHILS TOTAL 5.75 1.40 - 6.00 x10'3/uL 01/31/2020 2:23 PM T [facility] IMMATURE GRANS % 0.1 0.0 - 0.5 % 01/31/2020 2:[address] [facility] ABS. LYMPHOCYTES 0.77(L) 0.80 - 4.70 x10'3/uL 01/31/2020 2:23 PM T [facility] 01/31/2020 1:47 PM CDT us [facility] Final Result [facility] [address] [place] [address], [place] [phone] * (ABNORMAL) COMPREHENSIVE METABOLIC PANEL (01/31/2020 1:47 PM CDT) [facility] GLUCOSE 79 70 - 99 MG/DL 01/31/2020 2:56 PM CDT [facility] BUN 23(H) 7 - 18 MG/DL 01/31/2020 2:56 PM CDT [facility] CREATININE S/P/B 0.87 0.55 - 1.02 MG/DL 01/31/2020 2:56 PM CDT [facility] SODIUM S/P/B 142 136 - 145 MMOL/L 01/31/2020 2:56 PM CDT [facility] POTASSIUM S/P/B 3.4(L) 3.5 - 5.1 MMOL/L 01/31/2020 2:56 PM CDT [facility] CHLORIDE S/P/B 106 100 - 108 MMOL/L 01/31/2020 2:56 PM CDT [facility] CO2 30.8 21 - 32 MMOL/L 01/31/2020 2:56 PM CDT [facility] CALCIUM S/P/B 9.2 8.5 - 10.1 MG/DL 01/31/2020 2:56 PM CDT [facility] BILIRUBIN TOTAL S/P/B 0.4 0.2 - 1.2 MG/DL 01/31/2020 2:56 PM CDT [facility] TOTAL PROTEIN S/P/B 7.6 6.4 - 8.2 G/DL 01/31/2020 2:56 PM CDT [facility] ALBUMIN S/P/B 3.6 3.4 - 5.0 G/DL 01/31/2020 2:56 PM CDT [facility] AST 21 15 - 37 U/L 01/31/2020 2:56 PM CDT [facility] ALT 25 14 - 55 U/L 01/31/2020 2:56 PM CDT [facility] ALKALINE PHOSPHATASE S/P/B 119 50 - 136 U/L 01/31/2020 2:56 PM CDT [facility] ANION GAP 5.2 5 - 15 MMOL/L 01/31/2020 2:56 PM CDT [facility] BUN CREATININE RATIO 26.4(H) 6 - 26 01/31/2020 2:56 PM T [facility] A/G RATIO 0.9(L) 1.0 - 2.0 RATIO 01/31/2020 2:56 PM T [facility] EGFR NON-AFR. AMER. 61(L) >90 ML/MIN/1.7 3 M2 01/31/2020 2:56 PM T [facility] EGFR AFR. AMER. 71(L) >90 ML/MIN/1.7 3 M2 01/31/2020 2:56 PM T [facility] Comment: NOTE: eGFR is not calculated for patients <18 years of age. This is an estimated GFR (CKD EPI) and should not be used for calculating drug doses. 01/31/2020 1:47 PM CDT us [facility] Final Result [facility] [address] [place] [address], [place] [phone] * (ABNORMAL) TSH W/REFLEX (01/31/2020 1:47 PM CDT) TSH 5.775(H) 0.358 - 3.74 uIU/ML 01/31/2020 2:56 PM CDT [facility] Comment: HIGH DOSES OF BIOTIN MAY INTERFERE WITH THIS TEST RESULT. CORRELATION TO CLINICAL HISTORY AND PRESENTATION RECOMMENDED. 01/31/2020 1:47 PM CDT [facility] Final Result [facility] [address] [place] [address], documented in this encounter Visit Diagnoses Diagnosis Hypothyroidism, unspecified type Weight loss Loss of weight Bradycardia Other specified cardiac dysrhythmias Essential hypertension Unspecified essential hypertension documented in this encounter Care Teams Excavating Machine Operator Relationship Specialty Start Date End Date Noemi Barnard MD [facility]. [address] [address] PCP - General INTERNAL MEDICINE 08/23/18 03/03/23 Joni Mckeon MD [facility]. [address] [address] Christopher Clinical Allergist CARDIOVASCULAR DISEASE 07/04/18 documented as of this encounter
--- OUTSIDE RECORDS SUMMARY | 2024-04-05 00:15 | XMS_ITS | Encounter Summary ---
Author Organization [facility] Address [facility] [place] [address] [place] [address] Care Team Providers Care Labeling Specialist Name Role Phone Joni Mckeon MD Unavailable [phone] Noemi Barnard MD Primary Care Provider [phone] Reason for Visit * Reason Comments Follow Up 3 month follow up. D iscuss refills of medications. Daughter wanting to discuss poss lab work due to patient continuing to lose weight. Encounter Details Date Type Department Care Team (Late st Contact Info) Description 01/31/2020 1:00 PM CDT Office Visit [facility] Family & Internal Medicine [facility] [id number] [place] [phone] [place], [place] [id number] [place] [id number] Follow Up (3 month follow up. Discuss refills of medications. Daughter wanting to discuss poss lab work due to patient continuing to lose weight. ) Social History Tobacco Use Types Packs/Day [...] Sign Reading Time Taken Comments Blood Pressure 126/82 01/31/2020 12:35 PM CDT Pulse 75 01/31/2020 12:35 PM CDT Temperature 35.9 ??C (96.7 ??F) 01/31/2020 12:35 PM C DT Respiratory Rate 18 01/31/2020 12:35 PM CDT Oxygen Saturation 96% 01/31/2020 12:35 PM CDT Inhaled Oxygen Concentration - - Weight 51.4 kg (113 lb 6.4 oz) 01/31/2020 12:35 PM CDT Height 160 cm (5' 3 ) 01/31/2020 12:35 PM CDT Body Mass Index 20.09 01/31/2020 12:35 PM CDT documented in this encounter Functional [...] encounter Progress Notes * DEEPALI Macias - 01/31/2020 1:00 PM CDT Images from the original note were not included. _ Reason for Visit: Follow Up (3 month follow up. Discuss refills of medications. Daughter wanting to discuss poss lab work due to patient continuing to lose weight. ) History of Present Illness: NATASHA Ch is a 84-year-old female here for with her daughter for evaluation of weight loss. Given that her weight is been stable the last 3 visits she has lost approximately 10+ pounds since the summer without any good explanation. The daughter is concernedbecause her mother does live with her and she knows that she is eating. She does have a history of breast cancer was at least 7 years ago. She is no longer following up with her cancer doctor. She has not had a colonoscopy for several years. She does have some complaints of left hip pain but she did have a fall she is getting her to have a pacemaker placed by cardiology because her heart arrhythmias causing her to get weak or even loss of consciousness so she is getting a pacemaker placed earlynext week. But on thing that has been to do with her weight reduction. Should her thyroid was slightly off but it was hyperthyroid not hypothyroid so is really unexplained weight loss either. ROS: Review of Systems Feeling in pain. Denies headaches, vision or hearing problems. No recent colds or flus, denies symptoms suggestive of allergies. Denies dysphagia, heartburn or indigestion. No dyspnea or chest pain on exertion. No nausea, abdominal pain, change in bowel habits, black or bloody stools. No urinary tract symptoms.No foot or leg edema. No numbness, tingling,or weakness. No anxiety or depressive symptoms, Sleeping well. No significant weight gain . Some fatigue. Medications: Outpatient Medications Marked as Taking for the 01/31/20 encounter (Office Visit) with DEEPALI Macias Medication Sig Dispense Refill ??? amLODIPine 5 MG tablet Take 1 tablet (5 mg total) by mouth daily. 90 tablet 1 ??? aspirin EC 81 MG EC tablet Take 81 mg by mouth daily. Indications: Anticoagulant Therapy ??? benazepril 20 MG tablet Take 1 tablet (20 mg total) by mouth daily. 90 tablet 0 ??? Cholecalciferol (VITAMIN D) 2000 units Cap Take 2,000 Units by mouth daily. Indications: Nutritional Support ??? donepezil 10 MG Tab Take 10 mg by mouth every morning. ??? levothyroxine 50 MCG tablet Indications: Underactive Thyroid Take 1 tablet (50mcg total) by mouth in the morning on Wednesday, Wednesday and Wednesday. 30 tablet ??? methenamine 1 g tablet Take 1 tablet (1 g total) by mouth 2 (two) times daily with meals. 60 tablet 3 ??? mirabegron ER (MYRBETRIQ) 25 MG 24 hr tablet Take 1 tablet (25 mg total) by mouth daily. 30 tablet 3 ??? PRAVASTATIN 40 MG tablet TAKE 1 TABLET(40 MG) BY MOUTH EVERY NIGHT AT BEDTIME 90 tablet 0 ??? sertraline 100 MG tablet Take 100 [...] Hypothyroidism ??? Insomnia ??? Sepsis (CMS/HCC) ??? Vitamin D deficiency ??? Weight loss Past Surgical History: Procedure Laterality Date ??? ABDOMINAL SURGERY ??? BREAST REDUCTION BILATERAL ??? CHOLECYSTECTOMY ??? COLONOSCOPY ??? HEMORRHOIDECTOMY ??? HYSTERECTOMY ??? INNER EAR SURGERY PROC UNLISTED ??? REPAIR ROTATOR CUFF,ACUTE Social History Tobacco Use ??? Smoking status: Never Smoker ??? Smokeless tobacco: Never Used Substance Use Topics ??? Alcohol use: No Frequency: Never ??? Drug use: No Family History Problem Relation Name Age of Onset ??? Diabetes Other ??? Breast Cancer Other ??? Other (cardiac disorder) Other ??? Heart Attack Mother Family Status Relation Name Status ??? Other [...] bothered by any of the following problems? If you checked off any problems, how difficult have these problems made it for you to do your work,take care of things at home, or get along with other people?: Not difficult at all Fall Risk One or more falls in the last year:: No Feels unsteady when walking:: No Worried about falling:: No Physical Exam Constitutional: Patient is oriented to person, place, and time. Patient appears well-developed and well-nourished. Thin and frail HENT: Right Ear: External ear normal. Left [...] Patient exhibits no edema, tenderness or deformity. Exceptfor marked tenderness palpation in the left hip and iliac crest area. She did not appear to have any lumbar spine pain or paraspinous muscle discomfort. Lymphadenopathy: Patient has no cervical adenopathy. Neurological: Patient is alert and oriented to person, place, and time. Skin: No rash noted. No erythema. Psychiatric: Patient has a normal mood and affect. The behavior is normal. Thought content normal. No flowsheet data found. Vitals: 01/31/20 1235 Patient Position: Sitting BP Location: Right arm Cuff size: Adult Large BP: 126/82 Pulse: 75 Body mass index is 20.09 kg/m??. Assessment and Plan Encounter Diagnose(s) ICD-10-CM ICD-9-CM SNOMED CT(R) 1. Hip pain, left M25.552 719.45 HIP PAIN XR PELVIS+LT HIP 2V 2. Breast cancer screening by mammogram Z12.31 V76.12 PATIENT ENCOUNTER STATUS MG SCREENING KARLA DIGI 3. Weight loss R63.4 783.21 WEIGHT LOSS CBC W/DIFF AUTOMATED COMPREHENSIVE METABOLIC PANEL 4. Hypothyroidism, unspecified type E03.9 244.9 HYPOTHYROIDISM CBC W/DIFF AUTOMATED TSH W/REFLEX There are no diagnoses linked to this encounter. Orders Placed This Encounter ??? XR PELVIS+LT HIP 2V ??? CBC W/DIFF AUTOMATED ??? COMPREHENSIVE METABOLIC PANEL ??? TSH W/REFLEX ??? MG SCREENING KARLA DIGI She is overdue for mammogram so we will get an order for that. We did x-ray of her left hip and pelvis. We will get her labs possible referral to GI depending what her labs and x-ray show. Patient should follow annual wellness exams recommended for age and sex of patient. Items to consider but not limited included yearly annual fasting labs, colonscopy or cologuard when indicated. PSA and prostate for males. Mammogram and female exam for females, Kamila Granger PA-C evaluated and Dr Scott Cabello reviewed and agrees with plan. documented in this encounter Plan of Treatment Scheduled Orders Name Type Priority Associated Diagnoses Orde r Schedule MG SCREENING KARLA DIGI MAMMO Routine Breast cancer screening by mammogram Ordered: 01/31/2020 documented as of this encounter Goals Goal Patient Goal Type Associated Problems Recent Progress Patient-Stated? Author Improve Home Support System General No Laura Cheatham, RN Return home with [facility] home health General No Malgorzata Brown, ADOPTION SOCIAL WORKER HOME WITH DAUGHTER General No Laura Cheatham, RN documented as of this encounter Results * XR PELVIS+LT HIP [...] PM Kamila [facility] Final Result * (ABNORMAL) TSH W/REFLEX (01/31/2020 1:47 PM CDT) TSH 5.775(H) 0.358 - 3.74 uIU/ML 01/31/2020 2:56 PM CDT [facility] Comment: HIGH DOSES OF BIOTIN MAY INTERFERE WITH THIS TEST RESULT. CORRELATION TO CLINICAL HISTORY AND PRESENTATION RECOMMENDED. 01/31/2020 1:47 PM CDT us Kamila [facility] Final Result [facility] [address] [place] [address], [place] [phone] * (ABNORMAL) COMPREHENSIVE METABOLIC PANEL (01/31/2020 1:47 PM CDT) Pathologist [facility] GLUCOSE 79 70 - 99 MG/DL 01/31/2020 2:56 PM CDT [facility] BUN 23(H) 7 - 18 MG/DL 01/31/2020 2:56 PM CDT [facility] CREATININE S/P/B 0.87 0.55 - 1.02 MG/DL 01/31/2020 2:56 PM CDT [facility] SODIUM S/P/B 142 136 - 145 MMOL/L 01/31/2020 2:56 PM CDT [facility] POTASSIUM S/P/B 3.4(L) 3.5 - 5.1 MMOL/L 01/31/2020 2:56 PM CDT [facility] CHLORIDE S/P/B 106 100 - 108 MMOL/L 01/31/2020 2:56 PM CDT [facility] CO2 30.8 21 - 32 MMOL/L 01/31/2020 2:56 PM CDT [facility] CALCIUM S/P/B 9.2 8.5 - 10.1 MG/DL 01/31/2020 2:56 PM CDT [facility] BILIRUBIN TOTAL S/P/B 0.4 0.2 - 1.2 MG/DL 01/31/2020 2:56 PM CDT [facility] TOTAL PROTEIN S/P/B 7.6 6.4 - 8.2 G/DL 01/31/2020 2:56 PM CDT [facility] ALBUMIN S/P/B 3.6 3.4 - 5.0 G/DL 01/31/2020 2:56 PM T [facility] AST 21 15 - 37 U/L 01/31/2020 2:56 PM CDT [facility] ALT 25 14 - 55 U/L 01/31/2020 2:56 PM T [facility] ALKALINE PHOSPHATASE S/P/B 119 50 - 136 U/L 01/31/2020 2:56 PM T [facility] ANION GAP 5.2 5 - 15 MMOL/L 01/31/2020 2:56 PM T [facility] BUN CREATININE RATIO 26.4(H) 6 - 26 01/31/2020 2:56 PM T [facility] A/G RATIO 0.9(L) 1.0 - 2.0 RATIO 01/31/2020 2:56 PM T [facility] EGFR NON-AFR. AMER. 61(L) >90 ML/MIN/1.7 3 M2 01/31/2020 2:56 PM T [facility] EGFR AFR. AMER. 71(L) >90 ML/MIN/1.7 3 M2 01/31/2020 2:56 PM T [facility] Comment: NOTE: eGFR is not calculated for patients <18 years of age. This is an estimated GFR (CKD EPI) and should not be used for calculating drug doses. 01/31/2020 1:47 PM CDT us Kamila [facility] Final Result [facility] [address] [place] [address], [place] [phone] * (ABNORMAL) CBC W/DIFF AUTOMATED (01/31/2020 1:47 PM CDT) [facility] WBC 7.1 4.4 - 11.0 x10'3/uL 01/31/2020 2:23 PM CDT [facility] RBC 4.48(L) 4.50 - 5.10 x10'6/uL 01/31/2020 2:23 PM CDT [facility] HGB 12.0(L) 12.3 - 15.3 G/DL 01/31/2020 2:23 PM CDT [facility] HCT 38.3 35.9 - 44.6 % 01/31/2020 2:23 PM CDT [facility] MCV 85.5 80.0 - 96.0 FL 01/31/2020 2:23 PM CDT [facility] MCH 26.8 25.3 - 30.9 PG 01/31/2020 2:23 PM CDT [facility] MCHC 31.3 31.0 - 34.1 G/DL 01/31/2020 2:23 PM CDT [facility] RDW 15.1 12.4 - 15.1 % 01/31/2020 2:23 PM CDT [facility] PLT 303 151 - 353 x10'3/uL 01/31/2020 2:23 PM CDT [facility] MPV 9.8 9.6 - 12.0 FL 01/31/2020 2:23 PM CDT [facility] RBC MORPHOLOGY NORMAL 01/31/2020 2:23 PM CDT [facility] PLT MORPH. NORMAL 01/31/2020 2:23 PM CDT [facility] WBC MORPHOLOGY NORMAL 01/31/2020 2:23 PM CDT [facility] LYMPHOCYTES % 10.8(L) 15.8 - 45.0 % 01/31/2020 2:23 PM CDT [facility] NEUTROPHILS % 80.6(H) 42.1 - 71.9 % 01/31/2020 2:23 PM CDT [facility] MONOCYTES % 6.9 5.7 - 12.5 % 01/31/2020 2:23 PM CDT [facility] EOSINOPHILS 1.3 0.0 - 5.6 % 01/31/2020 2:23 PM CDT [facility] BASOPHILS 0.3 0.0 - 1.3 % 01/31/2020 2:23 PM CDT [facility] ABS. NEUTROPHILS TOTAL 5.75 1.40 - 6.00 x10'3/uL 01/31/2020 2:23 PM CDT [facility] IMMATURE GRANS % 0.1 0.0 - 0.5 % 01/31/2020 2:23 PM CDT [facility] ABS. LYMPHOCYTES 0.77(L) 0.80 - 4.70 x10'3/uL 01/31/2020 2:23 PM CDT [facility] 01/31/2020 1:47 PM CDT us Kamila [facility] Final Result [facility] [address] [place] [address], documented in this encounter Visit Diagnoses Diagnosis Hip pain, left- Primary Pain in joint, pelvic region and thigh Breast cancer screening by mammogram Weight loss Loss of weight Hypothyroidism, unspecified type Hip pain, left Pain in joint, pelvic region and thigh documented in this encounter Care Teams Labeling Specialist Relationship Specialty Start Date End Date Noemi Barnard MD [address] [address] PCP - General INTERNAL MEDICINE 08/23/18 03/03/23 Joni Mckeon MD Three [facility]. [address] [address] [place] [employer] Manager CARDIOVASCULAR DISEASE 07/04/18 documented as of this encounter
--- OUTSIDE RECORDS SUMMARY | 2024-04-05 00:15 | XMS_ITS | Encounter Summary ---
Author Organization [facility] Address [address] [place] [address]. [place], [place] [address] [place] [address] Care Team Providers Care Parts Driver Name Role Phone Joni Mckeon MD Unavailable [phone] Noemi Barnard MD Primary Care Provider [phone] Encounter Details Date Type Department Care Team (Latest Contact Info) Description 01/01/2020 Travel Social History Tobacco Use Types Packs/Day [...] have Coronavirus / COVID-19? No / Unsure 01/01/2020 11:19 AM CDT documented as of this encounter [...] [facility] home health General No Malgorzata Brown MSW HOME WITH DAUGHTER General No Laura Cheatham, RN documented as of this encounter Visit Diagnoses Not on filedocumented in this encounter Care Teams Parts Driver Relationship Specialty Start Date End Date Noemi Barnard MD Three [facility]. [address] [address] PCP - General INTERNAL MEDICINE 08/23/18 03/03/23 Joni Mckeon MD Three [facility]. [facility] [address] [place] [address] [place] Manager Quality Compliance CARDIOVASCULAR DISEASE 07/04/18 documented as of this encounter
--- OUTSIDE RECORDS SUMMARY | 2024-04-05 00:15 | XMS_ITS | Encounter Summary ---
Author Organization [facility] Address [address] [place] [address]. [place] [address] [place] [address] Care Team Providers Care Breastfeeding Educator Name Role Phone Joni Mckeon MD Unavailable [phone] Noemi Barnard MD Primary Care Provider [phone] Encounter Details Date Type Department Care Team (Latest Contact Info) Description 02/06/2020 Travel Social History Tobacco Use Types Packs/Day [...] COVID-19? No / Unsure 02/06/2020 10:42 AM CONTROL OFFICER documented as of this encounter Functional [...] CENTER home health General No Malgorzata Brown, PUBLIC ACCOUNTANT HOME WITH [facility] General No Laura Cheatham, RN documented as of this encounter Visit Diagnoses Not on filedocumented in this encounter Care Teams Breastfeeding Educator Relationship Specialty Start Date End Date Noemi Barnard MD [facility] [place] [facility]. [address] [address] PCP - General INTERNAL MEDICINE 08/23/18 03/03/23 Joni Mckeon MD [facility]. [facility] [address] [place] [address] [place] [employer] Dean CARDIOVASCULAR DISEASE 07/04/18 documented as of this encounter
--- OUTSIDE RECORDS SUMMARY | 2024-04-05 00:15 | XMS_ITS | Encounter Summary ---
Author Organization [facility] Address [facility] [place] [address] [place] [address] Care Team Providers Care Child Care Supervisor Name Role Phone Joni Mckeon MD Unavailable [phone] Noemi Jade MD Primary Care Provider [phone] Reason for Referral * Imaging (Routine) - Closed Specialty Diagnoses / Procedures Referred By Eugenie crain Referred To Contact RADIOLOGY Diagnoses Symptomatic bradycardia SSS (sick sinus syndrome) ([facility]) Procedures XA PACEMAKER Cruzito Mcnulty MD [facility]. [facility] [address] [place] [address] Phone: tel: fax: Referral ID Status Reason Start Date Expiration Date Visits Re quested Visits Authorized [id number] Closed 01/26/2020 02/25/2021 1 1 Reason for Visit * Reason Comments Bradycardia Scally pt. Syncope Encounter Details Date Type Department Care Team (Late st Contact Info) Description 01/26/2020 9:15 AM CDT Office Visit [facility] [address] [place] [address] Cruzito Mcnulty MD [facility]. [facility] [address] [place] [address] Bradycardia (Scally pt.); Syncope Social History Tobacco Use Types Packs/Day Years [...] have Coronavirus / COVID-19? No / Unsure 01/26/2020 8:38 AM CDT documented as of this encounter Last Filed Vital Signs Vital Sign Reading Time Taken Comments Blood Pressure 200/80 01/26/2020 8:47 AM CDT Pulse 79 01/26/2020 8:47 AM CDT Temperature - - Respiratory Rate - - Oxygen Saturation 96% 01/26/2020 8:47 AM CDT Inhaled Oxygen Concentration - - Weight 51.7 kg (114 lb) 01/26/2020 8:47 AM CDT Height 160 cm (5' 3 ) 01/26/2020 8:47 AM CDT Body Mass Index 20.19 01/26/2020 8:47 AM CDT documented in this encounter Functional [...] this encounter Patient Instructions * Patient Instructions* Tamar Washington - 01/26/2020 9:15 AM CDT Images from the original note were not included. Patient Education Patient Education Bradycardia The Basics Written by the doctors and editors at [facility] What is bradycardia???--??Bradycardia is the term doctors use for when a person's heartbeat is slower than normal. How do normal heartbeats happen???--??A normal heartbeat happens when an electrical signal starts in one spot near the top of the heart. This electrical signal follows a path to spread across the heart. As it spreads, the signal causes the heart muscle to squeeze. Each time the heart squeezes ( beats ), it pumps blood all over the body. Normally, the heart beats in a regular way 60 to 100 times aminute. What causes the heart to beat too slowly???--??The heart can beat too slowly if: ?? Electrical signals don't start often enough. ?? The electrical signal gets slowed down or blocked as it spreads across the heart. Having a slow heartbeat doesn't always cause problems. Both children and adults can have bradycardia and still be healthy. For example, it is common for athletes to have a slow heartbeat. It is also common for people to have a slower heartbeat when they are sleeping. Certain medicines, especially medicines used to treat heart problems or high blood pressure, can also cause bradycardia. Other times, bradycardia is caused by a problem or condition, such as: ?? A problem with the heart's electrical system. ?? Other heart problems, including recent heart surgery or a heart attack. ?? Certain infections. ?? Sleep apnea - This is when people stop breathing for short amounts of time when they are asleep. ?? Anorexia - This is an eating disorder that makes people lose more weight than is healthy. What are the symptoms of bradycardia???--??Some people have no symptoms. Other people have symptoms with their bradycardia. These can include: ?? Feeling light-headed or dizzy ?? Fainting or feeling like you are going to faint ?? Feeling tired, either all the time or only when you exercise ?? Chest pain ?? Trouble breathing ?? Eating less than usual or acting tired (in babies) Should I call my doctor or nurse???--??Yes. If you or your child has symptoms of bradycardia, call your doctor or nurse. Is there a test for bradycardia???--??Yes. The doctor or nurse will ask about your symptoms and do an exam. During the exam, he or she will check your pulse and listen to your heart. To see if your heartbeat is slower than normal, he or she will do an ECG (also called an electrocardiogram ). An ECG is a test that measures the electrical activity in the heart (figure 1). Your doctor might want to record your heartbeat over the course of hours or days. If so, he or she will have you wear or carry a heart monitor device around at home (figure 2). This device will measure and record your heart's electrical activity. You should keep doing your normal activities while you wear or carry the monitor. While you wear the monitor, you should also write down any symptoms you have. That way, your doctor can see if bradycardia is causing your symptoms. After your doctor knows for sure that you have bradycardia, he or she might do tests to look for the cause. These can include: ?? Blood tests ?? Tests to see how your heartbeat changes when you get certain medicines How is bradycardia treated???--??Treatment depends on your symptoms and what's causing your bradycardia. People who have no symptoms usually do not need treatment. People who have symptoms will likely need treatment. Your doctor might change or stop any medicinesthat could be slowing your heartbeat. Some people with bradycardia are treated with a device called a pacemaker. A pacemaker sits underthe skin near a person's heart and sends electrical signals to the heart. These signals help the heart beat at a normal rate. All topics are updated as new evidence becomes available and our peer review process is complete. This topic retrieved from [employer] on: Sep 28, 2019. Topic 76813 Version 9.0 Release: 28.3.2 - C28.250 ?2019??[employer] and/or its affiliates.??All rights reserved. figure 1: Person having an ECG This drawing shows a man having an ECG (also called an electrocardiogram or EKG). He has patches, called electrodes, stuck onto his chest, arms, and legs. Wires run from the electrodes to the ECG machine. An ECG measures the electrical activity in the heart. Graphic 53825 Version 2.0 figure 2: Holter monitor People [...] or certain times of the day. Graphic 95383 Version 8.0 Consumer Information Use and Disclaimer This information [...] that is right for you.The use of [employer] content is governed by the [employer] Terms of Use. ??2020 [employer]. All rights reserved. Copyright ?2019??[employer]. and/or its affiliates.??All rights reserved. documented in this encounter Progress Notes * Cruzito Mcnulty MD - 01/26/2020 9:15 AM CDT Reason for Visit: Bradycardia (Scally pt.) and Syncope History of Present Illness: 84-year-old female with symptomatic bradycardia, history of syncope, history of hypothyroidism and dementia. She has had syncopal events with minimal prodrome. Her extended monitor has shown bradycardia as well as 2:1 av block at times. She denies chest pain, shortness of breath, palpitations. She denies PND, orthopnea, LE edema, cough, hemoptysis. Recommendations and Plan: Given her syncope and SSS as seen on monitor, we will plan for dual chamber PPM. We discussed risks/benefits/alternatives/and side effects of device implantation including but not limited to: infection, bleeding, vascular access injury, pneumothorax, stroke, cardiac perforation. She wishes to proceed with procedure as planned. Data reviewed: Ecg 11/2019 with sinus rhythm, first degree avb and rbbb. Holter with 2:1 avb, and bradycardia noted. 01/13/20. Echo 07/17/2019 Normal biventricular size and systolic function. Estimated EF of 55-60%. Grade I diastolic dysfunction. Mild mitral and tricuspid regurgitation. Unable to estimate pulmonary pressures. Medications: Current Outpatient Medications: ??? amLODIPine 5 MG tablet, Take 1 tablet (5 mg total) by mouth daily., Disp: 90 tablet, Rfl: 1 ??? aspirin [...] , Rfl: ??? levothyroxine 50 MCG tablet, Indications: Underactive Thyroid Take 1 tablet (50mcg total) by mouth in the morning on Wednesday, Wednesday and Wednesday., Disp: 30 tablet, Rfl: ??? methenamine 1 g tablet, Take 1 tablet (1 g total) by mouth 2 (two) times daily with meals., Disp: 60 tablet, Rfl: 3 ??? mirabegron ER (MYRBETRIQ) 25 MG 24 hr tablet, Take 1 tablet (25 mg total) by mouth daily., Disp: 30 tablet, Rfl: 3 ??? nitrofurantoin 50 MG capsule, Take 1 capsule (50 mg total) by mouth nightly at bedtime., Disp: 30 capsule, Rfl: 2 ??? OMEPRAZOLE 20 MG capsule, TAKE 1 CAPSULE(20 MG) BY MOUTH DAILY, Disp: 90 capsule, Rfl: 0 ??? OMEPRAZOLE 20 MG capsule, TAKE 1 CAPSULE(20 MG) BY MOUTH DAILY, Disp: 90 capsule, Rfl: 0 ??? PRAVASTATIN 40 MG tablet, TAKE 1 TABLET(40 MG) BY MOUTH EVERY NIGHT AT BEDTIME, Disp: 90 tablet, Rfl: 0 ??? sertraline 100 MG tablet, Take 100 mg by mouth every morning. Indications: Depression, Disp: , Rfl: Allergies Allergen Reactions ??? [...] new or significant memory loss. Filed Vitals: 01/26/20 0847 BP: (!) 200/80 Pulse: 79 SpO2: 96% Weight: 51.7 kg (114 lb) Height: 5' 3 (1.6 m) .Body mass index is 20.19 kg/m??. Physical Exam Constitutional: No distress. HENT: Dentition normal. Eyes: Pupils equal, round, and reactive to light. Conjunctivae normal. Neck: Normal range of motion. Neck supple. Thyroid normal. No JVD. Pulmonary: Effort normal. Breath sounds normal. Abdomen: Abdomen soft. Bowel sounds normal. No tenderness. No mass. No hepatomegaly. No splenomegaly. Abdominal aorta not palpably enlarged. Neurological: Alert. Oriented x 3. Appropriate mood and affect. Intact cranial nerves. Normal motorskills. Normal gait. Skin: Dry. Warm. No cyanosis. No clubbing. Musculoskeletal: No kyphosis. Normal ROM. Cardiovascular: Rate: Regular rhythm and Normal rate. PMI: PMI not displaced Pulses: Right Carotid pulses 2+, Left Carotid pulses 2+, Right Radial pulses 2+, Left Radial pulses2+, Right Femoral pulses 2+, Left Femoral pulses 2+, Right Popliteal pulses 2+, Left Popliteal pulses 2+, Right DP pulses 2+, Left DP pulses 2+, Right PT pulses 2+, Left PT Pulses 2+, Negative for edema. Normal pulses. Heart Sounds: [...] No Laura Cheatham, RN Return home with [facility] home health General No Malgorzata Brown, PLASTIC BOAT BUFFER HOME WITH DAUGHTER General No Laura Cheatham, RN documented as of this encounter Results * XA PACEMAKER (02/15/2020 12:38 PM AIR BAG BUILDER) Anatomical Region Laterality Modality Cardiac Frequency Checker Narrative 02/18/2020 11:15 AM AIR BAG BUILDER [facility]/EP LAB [phone] x [phone] Implantation of Pacemaker Patient? s Name: ??Roxana Ch Date of : ?? 1935 Medical Record: ??#[id number] Account: ??#[id number] Physician: ??Cruzito Mcnulty MD Date: ?? 02/15/2020 Procedure: ??#[id number] - Pacemaker Insertion Indication: Sick Sinus Syndrome History: 84-year-old female wit history of sick sinus syndrome. Physical Exam: Vitals: ??Per nursing record. Abdominal: ?? Normal HEENT: ??Carotid upstroke normal. Lungs: ??Clear to auscultation bilaterally. CV: ??PMI normal, S1/S2 normal. No murmurs noted. Extremities: ??No edema noted Vascular: ??No aortic/carotid/femoral bruits noted. Pulses: ??Femoral: 2+ DP: 2+ PT: 2+ Procedure: The device was implanted for sick sinus syndrome. ??Consent was obtained from the patient after a full explanation of the risks and benefits of the procedure. The patient was brought to the electrophysiology lab in the fasting state. The patient was prepped and draped in the usual sterile fashion. Local anesthesia was infiltrated subcutaneously in the left deltopectoral groove. Sedation was provided by labor conciliator RN and documented separately for divided doses of Versed and Fentanyl. I performed moderate sedation for 52 minutes. ??I supervised and directed Kristian Roland RN who assisted in monitoring the patient? s level of consciousness and physiologic status throughout the procedure. The right extrathoracic axillary vein was sighted with ultrasound. Micropuncture needle and wire were used to gain access with direct visualization using ultrasound. A 4F sheath was placed over the micro puncture wire. Through this sheath, a standard 0.035 J wire was placed and fluoroscopically passed into the IVC. More local anesthetic was given in the deltopectoral groove, and an oblique incision was made. Using a combination of electrocautery and blunt dissection, a subcutaneous pocket was dissected down to the prepectoral fascia. The 0.035 J wire was freed into the pocket. A 6F splittable sheath was advanced over the wire, dilator removed, and a second 0.035 J wire advanced to the IVC, the sheath was withdrawn over both wires and re-advanced over one wire. ??The right ventricular lead was delivered through the right axillary vein via modified Seldinger Technique. The RV lead was affixed to the HIS after confirmation of adequate parameters. Temporary 10-volt pacing was performed to exclude phrenic capture. The access sheath was split and a second 6F sheath was placed over remaining wire. The RA lead was advanced to the right atrial appendage and fixated after confirmation of adequate parameters. Temporary 10-volt pacing was performed to exclude phrenic capture. The leads were sutured to the floor of the pocket with 0-silk ties. ??The leads were then attached to the pulse generator. After confirmation of adequate hemostasis, the generator was placed in the pocket. An antibiotic solution was used for pocket irrigation. The incision was then closed in three layers: a 2-0 Vicryl for the subcutaneous tissues, 3-0 Vicryl for intermediate layer, and a running 4-0 Monocryl for the subcuticular layer. The skin was then sealed with Steri-strips. The patient was transported to the holding area in stable condition. There were no immediate emerson-procedural complications. Summary: Successful implantation of dual chamber pacemaker (right-sided). Recommendations: AP chest X-Ray to document lead position and exclude pneumothorax, incision check in two weeks, and post-operative antibiotics for 24 hours. Device to be interrogated postoperative day one. Parameters: Mode: ??DDD Lower rate limit: ??60 Upper rate limit: ??120 Mode switch rate: ??180 Rate responsive: Off Paced/Sensed AV delay: ??250/225 + VIP 200 Device settings: RA RV Output ??2.5 V 2.5 V Output pulse width ??0.4 ms 0.4 ms Measurements: ? RA RV Amplitude ??1.5 mV 10.6 mV Pacing impedance 460 ? 550 ? Pacing threshold 1.25 V 0.75 V Pulse width 0.4 ms ??0.4 ms Architectural Drafter: ?[employer] Printer Helper, Model #[id number] Device Serial #[id number] Lead Data: Ventricular Lead Model #2088TC-52 Ventricular Lead Serial #[id number] Atrial Lead Model #2088TC-46 Atrial Lead Serial #[id number] Cruzito Mcnulty MD PS/vs Interpreted: ?? 02/15/20 Transcribed: 02/16/20 Cruzito Mcnulty MD PROMOTIONS INTERN Final Result * MRSA SCREENING (01/31/2020 1:47 PM CDT) SPEC DESCRIPTION NASAL 01/31/2020 1:[address] [facility] SPECIAL REQUESTS NO SPECIAL REQUEST 01/31/2020 1:[address] [facility] CULTURE RESULT NO METHICILLIN RESISTANT STAPH AUREUS ISOLATED 02/01/2020 4:[address] [facility] SPECIMEN FROM INTERNAL NOSE / Unknown 01/31/2020 1:47 PM CDT 01/31/2020 1:48 PM CDT Cruzito Mcnulty MD MICROBIOLOGY - GENERAL ORDERABLE S Final Result Performing Organization Address City/State/[facility] Co de Phone Number [facility] [address] [place] [address], [place] [phone] * (ABNORMAL) PROTIME/INR, VENOUS (01/31/2020 1:47 PM CDT) PROTIME 13.9(H) 9.1 - 12.4 SEC 01/31/2020 2:[address] [facility] INR 1.2 01/31/2020 2:[address] [facility] Comment: Recommend INR ranges for Oral Anticoagulant Therapy: Mechanical Cardiac Values 2.5-3.5 All others indication 2.0-3.0 01/31/2020 1:47 PM CDT Cruzito Mcnulty MD LABORATORY Final Result [facility] [address] [facility] [place] [address], [place] [phone] documented in this encounter Visit Diagnoses Diagnosis Bradycardia- Primary Other specified cardiac dysrhythmias Essential hypertension Unspecified essential hypertension Symptomatic bradycardia Other specified cardiac dysrhythmias SSS (sick sinus syndrome) ([facility] HHS/HCC) Sinoatrial node dysfunction Symptomatic bradycardia Other specified cardiac dysrhythmias SSS (sick sinus syndrome) ([facility]) Sinoatrial node dysfunction documented in this encounter Care Teams Child Care Supervisor Relationship Specialty Start Date End Date Noemi Jade MD [address] [address] PCP - General INTERNAL MEDICINE 08/23/18 03/03/23 Joni Mckeon MD [address] [address] [place] Life Assurance Representative CARDIOVASCULAR DISEASE 07/04/18 documented as of this encounter
--- OUTSIDE RECORDS SUMMARY | 2024-04-05 00:15 | XMS_ITS | Encounter Summary ---
Author Organization [facility] Address [address] [place] [address]. [place], [place] [address] [place] [id number] Care Team Providers Care Bender Machine Operator Name Role Phone Joni Mckeon MD Unavailable [phone] Noemi Barnard MD Primary Care Provider [phone] Encounter Details Date Type Department Care Team (Latest Contact Info) Description 01/26/2020 Travel Social History Tobacco Use Types Packs/Day [...] on filedocumented in this encounter Care Teams Bender Machine Operator Relationship Specialty Start Date End Date Noemi Barnard MD [facility]. [address] [address] PCP - General INTERNAL MEDICINE 08/23/18 03/03/23 Joni Mckeon MD [facility]. [facility] [address] [place] [address] [employer] Food Service Aide CARDIOVASCULAR DISEASE 07/04/18 documented as of this encounter
--- OUTSIDE RECORDS SUMMARY | 2024-04-05 00:15 | XMS_ITS | Encounter Summary ---
Author Organization [facility] Address [facility] [address] [place] [address] Care Team Providers Care Fashion Adviser Name Role Phone Joni Mckeon MD Unavailable [phone] Elaina Jade MD Primary Care Provider [phone] Reason for Referral * Imaging (Routine) - Closed Specialty Diagnoses / Procedures Referred By Contac t Referred To Contact RADIOLOGY Diagnoses Symptomatic bradycardia SSS (sick sinus syndrome) ([facility]) Procedures XA PACEMAKER Merrill Erazo MD [address] [address] Phone: tel: fax: Referral ID Status Reason Start Date Expiration Date Visits Re quested Visits Authorized [id number] Closed 01/26/2020 02/25/2021 1 1 MANAGER Reason for Visit * Imaging (Routine) - Closed Specialty Diagnoses / Procedures Referred By Contac t Referred To Contact RADIOLOGY Diagnoses Symptomatic bradycardia SSS (sick sinus syndrome) ([facility]) Procedures XA PACEMAKER Merrill Erazo MD [address] [address] Phone: tel: fax: Referral ID Status Reason Start Date Expiration Date Visits Re quested Visits Authorized [id number] Closed 01/26/2020 02/25/2021 1 1 Encounter Details Date Type Department Care Team (Late st Contact Info) Description 02/15/2020 9:58 AM WORK MANAGER - 02/15/2020 5:25 PM WORK MANAGER Hospital Encounter [facility] [place] [address] Merrill Erazo MD [address] [place], [place] [id number] Discharge Disposition: Home or Self Care (Routine [...] COVID-19? No / Unsure 02/15/2020 9:55 AM WORK MANAGER documented as of this encounter Last Filed Vital Signs Vital Sign Reading Time Taken Comments Blood Pressure 154/68 02/15/2020 5:00 PM WORK MANAGER Pulse 67 02/15/2020 5:00 PM WORK MANAGER Temperature 37.6 ??C (99.7 ??F) 02/15/2020 10:[address] Respiratory Rate 13 02/15/2020 5:00 PM WORK MANAGER Oxygen Saturation 96% 02/15/2020 5:00 PM WORK MANAGER Inhaled Oxygen Concentration - - Weight 49.6 kg (109 lb 5.6 oz) 02/15/2020 10:51 AM WORK MANAGER Height 158.8 cm (5' 2.5 ) 02/15/2020 10:51 AM CS T Body Mass Index 19.68 02/15/2020 10:51 AM WORK MANAGER documented in this encounter Functional Status * [...] N Active documented in this encounter Discharge Summaries * Merrill Erazo MD - 02/15/2020 12:46 PM CST Successful dcppm MANAGER documented in this encounter Discharge Instructions * Discharge Instructions* Serenity Walker RN - 02/15/2020 1:11 PM WORK MANAGER PACEMAKER DISCHARGE INSTRUCTIONS Face Worker of Device: [facility] ACTIVITY - You should restrict your normal activities for the first 4-6 weeks. ? Do NOT lift more than 10 pounds. ? Do NOT swim, golf, bowl or vacuum. ? Do NOT raise your device side arm above your shoulder. - At your 2 week visit, ask your doctor which of the above activities you can resume. - ALWAYS avoid contact sports or hard blows to the chest or abdomen. WOUND CARE - The outer dressing should be removed the day after surgery before you leave the hospital. If a second outer dressing is applied before you leave, please gently remove the new outer dressing the following day after your return home. - The steri-strips (white tape) will be removed at your next visit, if they have not yet peeled off. - Sponge bath ONLY for the first 7 days to keep incision DRY then resume normal shower activity. - Do NOT scratch, rub, touch or irritate your incision site. - Do NOT apply ointment, talc or lotion to the incision. - Call you doctor immediately if your incision looks swollen, red, starts to drain fluid, becomes tender to the touch or if you have a temperature greater than 100F. YOU MUST AVOID - Airport magnet security wands - Diathermy or other heat treatments - Arc or resistance welding - Electrical power generator plants - Electrical cautery used for surgical procedures - MRI scans without first discussing with your doctor to ensure your pacemaker is MRI safe. - Radio or television transmitting towers SPECIAL PRECAUTIONS - You must stay arm's length from strong magnets. This does not include refrigerator magnets. - Cellular phones should be used on the ear opposite of your device. Do NOT keep your cellular phone in a pocket over your device. - To avoid any interference with your device, you must pass through any security devices or christina (airports, department stores & other public places) within 10 seconds. - Microwave ovens, televisions, electric tools & gardening equipment should not cause problems. - If you have any questions about equipment not listed, call the stucco plasterer of your device or theDevice clinic. GENERAL INSTRUCTIONS - Always carry your identification card with you. A permanent card will be mailed to your house in 6-8 weeks by the stucco plasterer. - Keep your follow-up appointments with your doctor and the Device Clinic to be sure your device and leads are working properly. General follow-up is that your device will be checked every three months either in clinic or from your remote home transmitter. - Always take your medication at the times prescribed by your doctor. - Always tell any medical personnel that you have a Pacemaker, especially if you are having a procedure. APPOINTMENTS--You should follow up with your doctor in 4 weeks post your implant procedure. You have follow up scheduled with Dr. Erazo on (see above) for an incision site check and pacemaker interrogation. The time will be on your discharge instructions. Please call [phone] if you have any questions before this appointment. ? If you have any questions or problems about your pacemaker, please call the Pacemaker/ImplantableCardiac Device Clinic at [phone]. PULLEY MAINTAINER NUMBERS. [employer] [phone] [employer] [phone] [facility] [phone] MANAGER * Attachments The following attachments cannot be sent through Care Everywhere. * Pacemaker Insertion Discharge Instructions (Australian) * Moderate Sedation in Adults Discharge Instructions (Australian) documented in this encounter Medications at Time [...] 12/18/2019 0 documented as of this encounter H&P Notes * Merrill Erazo MD - 02/15/2020 11:23 AM CST HISTORY AND PHYSICAL INTERVAL NOTE: I have reviewed Aviva Ch History & Physical which was performed within the past 30 days. After examining Aviva Ch, no change has occurred in the patient's condition since the H&P was completed. Informed Consent Discussion: Potential benefits, risks, and side effects of the patient's procedure/surgery; the likelihood of the patient achieving his or her goals; and any potential problems that might occur during recuperation were discussed with the patient/family/personal artist's representative. Reasonable alternatives to the patient's proposed procedure/surgery including benefits, risks, and side effects related to the alternatives and the risks related to not receiving the proposed care were also discussed with the patient/family/personal artist's representative. Questions were answered and the patient/family/personal artist's representative verbalized understanding and desires to proceed. MANAGER Source Note - Merrill Erazo MD - 01/26/2020 9:15 AM CDT Reason [...] Referring Provider: No ref. provider found PCP: ELAINA JADE MD documented in this encounter OR Notes * Brief Op Note - Merrill Erazo MD - 02/15/2020 12:44 PM CST Brief op note- Implantable Device Preliminary Procedure Note Aviva Ch 02/15/2020 84-year-old female with a history of SSS, here for DCPPM. Procedure: Pacemaker Dual Chamber New Implant Device: [employer] [place] Findings: The procedure was performed via the right axillary vein using local anesthetic as well asconscious sedation. The patient tolerated the procedure well. Chest x-ray to be obtained on arrivalto medical floor. No complications were noted at this time. Complications: None Outcomes and Recommendations: Successful dual chamber PPM, right sided. MERRILL ERAZO MD Date: 02/15/2020 Time: 12:44 PM MANAGER documented in this encounter Plan of Treatment Not on file documented as of this encounter Goals Goal Patient Goal Type Associated Problems Recent Progress Patient-Stated? Author Improve Home Support System General No Laura Cheatham, RN Return home with [facility] home health General No Klaus Brownashley Chacon, ANESTHESIOLOGIST ASSISTANT CERTIFIED HOME WITH DAUGHTER General No Laura Cheatham, RN documented as of this encounter Procedures Procedure Name Priority Date/Time Associated Diagnosis Comments ECG 12-LEAD Routine 02/15/2020 2:41 PM WORK MANAGER XR CHEST PORTABLE STAT 02/15/2020 2:1 9 PM WORK MANAGER XA PACEMAKER Routine 02/15/2020 12:38 PM WORK MANAGER Symptomatic bradycardia SSS (sick sinus syndrome) ([facility]) TYPE & SCREEN STAT 02/15/2020 10:45 AM WORK MANAGER MRSA SCREENING STAT 02/15/2020 10:42 AM WORK MANAGER ECG 12-LEAD Routine 02/15/2020 10:35 AM WORK MANAGER PROTHROMBIN TIME, VENOUS STAT 02/15/2020 10:25 AM WORK MANAGER BASIC METABOLIC PANEL STAT 02/15/2020 10:25 AM WORK MANAGER CBC, AUTO, NO DIFF STAT 02/15/2020 10 :25 AM WORK MANAGER documented in this encounter Results * ECG 12 lead (02/15/2020 2:41 PM WORK MANAGER) 02/15/2020 2:41 PM WORK MANAGER Narrative [facility] ([place] RAD - 02/16/2020 11:49 AM WORK MANAGER ?[facility] ? [address], [place] ? Test Date: ?2020-02-15 Pat Name: ? AVIVA CH ?Department: ? Room: ? ODSPOOL Gender: ? Female ? Solution Designer: ?? CDN : ?1935 ? Requested By: MERRILL KACEY Order Number: [id number] ? Reading MD: ?? Luis Johns ? Measurements Intervals ?[place] ? Rate: ? 60 ? P: ?130 GA: ? 274 ?QRS: ?13 QRSD: ? 138 ?T: ?-25 QT: ? 468 ? QTc: ?469 ? Interpretive Statements ELECTRONIC ATRIAL PACEMAKER RIGHT BUNDLE BRANCH BLOCK Compared to ECG 02/15/2020 10:35:12 Sinus rhythm no longer present First degree AV block no longer present MANAGER Procedure Note Luis Johns MD - 02/16/[address] [facility] [address] Test Date: 2020-02-15 Pat Name: AVIVA CH Department: Room: [facility] Gender: Female Solution Designer: CDN : 1935 Requested By: MERRILL ERAZO Order Number: [id number] Reading MD: Luis Johns Measurements Intervals [place] Rate: 60 P: 130 GA: 274 QRS: 13 QRSD: 138 T: -25 QT: 468 QTc: 469 Interpretive Statements ELECTRONIC ATRIAL PACEMAKER RIGHT BUNDLE BRANCH BLOCK Compared to ECG 02/15/2020 10:35:12 Sinus rhythm no longer present First degree AV block no longer present MANAGER us Merrill Erazo MD ECG ORDERABLES Final Result [facility]) RAD * XR CHEST PORTABLE (02/15/2020 2:19 PM WORK MANAGER) Anatomical Region Laterality Modality Chest Radiographic Lacy ging 02/15/2020 2:20 PM WORK MANAGER Impressions 02/15/2020 2:21 PM WORK MANAGER Impression: Dual lead right pacemaker. No acute cardiopulmonary disease process. Narrative 02/15/2020 2:21 PM WORK MANAGER Date: 02/15/2020 2:19 PM Exam: XR CHEST PORTABLE Comparison: No comparisons. Technique: Single view chest. History: Status post pacemaker. Findings: There is a dual lead right pacemaker with leads projecting at the right atrium and right ventricle. The cardiac silhouette and pulmonary vascularity are within normal limits. The lungs are clear without consolidation or pleural effusion. There is a slightly elevated right diaphragm. There is no pneumothorax. There is calcified disease in the thoracic aorta. The osseous structures appear normal for age. Procedure Note Jesus Garcia MD - 02/15/2020 Date: 02/15/2020 2:19 PM Exam: XR CHEST PORTABLE Comparison: No comparisons. Technique: Single view chest. History: Status post pacemaker. Findings: There is a dual lead right pacemaker with leads projecting atthe right atrium and right ventricle. The cardiac silhouette and pulmonary vascularity are within normal limits. The lungs are clear without consolidation or pleural effusion. There is a slightly elevated right diaphragm. There is no pneumothorax. There is calcified disease in the thoracic aorta. The osseous structures appear normal for age. Impression: Dual lead right pacemaker. No acute cardiopulmonary disease process. us Merrill Erazo MD GENERAL IMAGING Final Result * XA PACEMAKER (02/15/2020 12:38 PM WORK MANAGER) Anatomical Region Laterality Modality Cardiac Sock Folder Narrative 02/18/2020 11:15 AM WORK MANAGER [facility] [phone] x [phone] Implantation of Pacemaker Patient? s Name: ??Aviva Ch Date of : ?? 1935 Medical Record: ??#[id number] Account: ??#[id number] Physician: ??Merrill Erazo MD Date: ?? 02/15/2020 Procedure: ??#[id number] - [...] left deltopectoral groove. Sedation was provided by metallurgical lab technician RN and documented separately for divided doses [...] V Pulse width 0.4 ms ??0.4 ms Face Worker: ?[employer] [place] User Interface Developer, Model #[id number] Device Serial #[id number] Lead Data: Ventricular Lead Model #2088TC-52 Ventricular Lead Serial #[id number] Atrial Lead Model #2088TC-46 Atrial Lead Serial #[id number] Merrill Erazo MD PS/vs Interpreted: ?? 02/15/20 Transcribed: 02/16/20 us Merrill Erazo MD CROSSTIE INSPECTOR Final Result * TYPE & SCREEN (02/15/2020 10:45 AM WORK MANAGER) ABO/RH B POSITIVE 02/15/2020 1:07 PM WORK MANAGER [facility] ANTIBODY SCREEN NEGATIVE 02/15/2020 1:07 PM WORK MANAGER [facility] SAMPLE EXPIRATION 02/18/2020,2 359 02/15/2020 1:07 PM WORK MANAGER [facility] 02/15/2020 10:4 5 AM WORK MANAGER us Merrill Erazo MD BLOOD BANK TEST ORDERABLES Final Result Performing Organization Address [facility] Co de Phone Number [facility] [address] [place] [address], * MRSA SCREENING (02/15/2020 10:42 AM WORK MANAGER) SPEC DESCRIPTION NASAL 02/15/2020 10:43 AM WORK MANAGER [facility] SPECIAL REQUESTS NO SPECIAL REQUEST 02/15/2020 10:43 AM WORK MANAGER [facility] CULTURE RESULT NO METHICILLIN RESISTANT STAPHYLOCOCCUS AUREUS ISOLATED 02/16/2020 11:58 AM WORK MANAGER [facility] SPECIMEN FROM INTERNAL NOSE / Unknown 02/15/2020 10:42 AM WORK MANAGER 02/15/2020 10:57 AM WORK MANAGER Merrill Erazo MD MICROBIOLOGY - GENERAL ORDERABLE S Final Result Performing Organization Address [facility]/ZIP Co de Phone Number [facility] [address] [place] [address], * ECG 12 lead (02/15/2020 10:35 AM WORK MANAGER) 02/15/2020 10:3 5 AM WORK MANAGER Narrative [facility] - 02/15/2020 11:31 AM WORK MANAGER ?[facility] [place] ? [address] [place] ? Test Date: ?2020-02-15 Pat Name: ? AVIVA CH ?Department: ? Room: ? ODSPOOL Gender: ? Female ? Solution Designer: ?? CDN : ?1935 ? Requested By: PABALEX KACEY Order Number: [id number] ? Reading MD: ?? Luis Romanopta ? Measurements Intervals ?[place] ? Rate: ? 60 ? P: ?71 GA: ? 232 ?QRS: ?31 QRSD: ? 133 ?T: ?-1 QT: ? 443 ? QTc: ?444 ? Interpretive Statements SINUS RHYTHM WITH FIRST DEGREE AV BLOCK WITH OCCASIONAL SUPRAVENTRICULAR PREMATURE COMPLEXES RIGHT BUNDLE BRANCH BLOCK Compared to ECG 11/22/2019 12:37:09 Sinus bradycardia no longer present Sinus arrhythmia no longer present Indeterminate axis no longer present MANAGER Procedure Note Luis Johns MD - 02/15/[address] Test Date: 2020-02-15 Pat Name: AVIVA CH Department: Room: [facility] Gender: Female Solution Designer: ABAD : 1935 Requested By: MERRILL ERAZO Order Number: [id number] Reading MD: Luis Johns Measurements Intervals [place] Rate: 60 P: 71 GA: 232 QRS: 31 QRSD: 133 T: -1 QT: 443 QTc: 444 Interpretive Statements SINUS RHYTHM WITH FIRST DEGREE AV BLOCK WITH OCCASIONAL SUPRAVENTRICULAR PREMATURE COMPLEXES RIGHT BUNDLE BRANCH BLOCK Compared to ECG 11/22/2019 12:37:09 Sinus bradycardia no longer present Sinus arrhythmia no longer present Indeterminate axis no longer present MANAGER us Merrill Erazo MD ECG ORDERABLES Final Result Performing Organization Address City/[facility]/ZIP Co de Phone Number [facility] ([facility]) RAD * PROTIME/INR, VENOUS (02/15/2020 10:25 AM WORK MANAGER) PROTIME 12.8 10.2 - 12.9 SEC 02/15/2020 10:54 AM WORK MANAGER [facility] INR 1.1 02/15/2020 10:54 AM WORK MANAGER [facility] Comment: Recommended INR Therapeutic Goals: ??2.0-3.0 Routine Therapy ??2.5-3.5 Mechanical Prosthetic Valves (High Risk) 02/15/2020 10:2 5 AM WORK MANAGER us Merrill Erazo MD LABORATORY Final Result [facility] [address] [place] [address], * (ABNORMAL) BASIC METABOLIC PANEL (02/15/2020 10:25 AM [facility] GLUCOSE 97 70 - 99 MG/DL 02/15/2020 11:05 AM [facility] BUN 22(H) 7 - 18 MG/DL 02/15/2020 11:05 AM [facility] CREATININE S/P/B 0.92 0.55 - 1.02 MG/DL 02/15/2020 11:05 AM [facility] SODIUM S/P/B 138 136 - 145 MMOL/L 02/15/2020 11:05 AM [facility] POTASSIUM S/P/B 4.0 3.5 - 5.1 MMOL/L 02/15/2020 11:05 AM [facility] CHLORIDE S/P/B 104 100 - 108 MMOL/L 02/15/2020 11:05 AM [facility] CO2 28.3 21 - 32 MMOL/L 02/15/2020 11:05 AM [facility] CALCIUM S/P/B 9.7 8.5 - 10.1 MG/DL 02/15/2020 11:05 AM [facility] ANION GAP 5.7 5 - 15 MMOL/L 02/15/2020 11:05 AM [facility] BUN CREATININE RATIO 23.9 6 - 26 02/15/2020 11:05 AM [facility] EGFR NON-AFR. AMER. 57(L) >90 ML/MIN/1.7 3 M2 02/15/2020 11:05 AM [facility] EGFR AFR. AMER. 66(L) >90 ML/MIN/1.7 3 M2 02/15/2020 11:05 AM [facility] Comment: NOTE: eGFR is not calculated for patients <18 years of age. This is an estimated GFR (CKD EPI) and should not be used for calculating drug doses. 02/15/2020 10:2 5 AM WORK MANAGER Merrill Erazo MD LABORATORY Final Result [facility] [address] [place] [address], [place] [phone] * (ABNORMAL) CBC, AUTO, NO DIFF (02/15/2020 10:25 AM WORK MANAGER) WBC 6.8 4.5 - 11.0 x10'3/uL 02/15/2020 11:01 AM [facility] RBC 5.17 4.20 - 5.40 x10'6/uL 02/15/2020 11:01 AM [facility] HGB 13.4 12.0 - 16.0 G/DL 02/15/2020 11:01 AM [facility] HCT 44.5 38.0 - 48.0 % 02/15/2020 11:01 AM [facility] MCV 86.1 80.0 - 94.0 FL 02/15/2020 11:01 AM [facility] MCH 25.9(L) 27.0 - 31.0 PG 02/15/2020 11:01 AM [facility] MCHC 30.1(L) 32.0 - 36.0 G/DL 02/15/2020 11:01 AM [facility] RDW 16.2(H) 11.5 - 14.5 % 02/15/2020 11:01 AM [facility] PLT 222 130 - 400 x10'3/uL 02/15/2020 11:01 AM WORK MANAGER [facility] MPV 10.4 9.3 - 12.2 FL 02/15/2020 11:01 AM WORK MANAGER [facility] 02/15/2020 10:2 5 AM WORK MANAGER Merrill Erazo MD LABORATORY Final Result [facility] [address] [place] [address], [place] [phone] documented in this encounter Visit Diagnoses Diagnosis Symptomatic bradycardia Other specified cardiac dysrhythmias SSS (sick sinus syndrome) ([facility]) Sinoatrial node dysfunction documented in this encounter Administered Medications Inactive Administered Medications - up to 3 most recent administrations Medication Order MAR Action Action Date Dose Rate Site ceFAZolin (ANCEF) 1 g injection 1 dose, Starting on Veronica 02/15/20 at 1042, Until Veronica 02/15/20 at 1200, Created by cabinet override, Intra-Op ceFAZolin (ANCEF) 2-0.9 GM/100ML-% IVPB 1 dose, Starting on Veronica 02/15/20 at 1119, Until Veronica 02/15/20 at 1215, Created by cabinet override, Intra-Op New Bag 02/15/2020 11:48 AM WORK MANAGER 2 g 200 mL/hr ceFAZolin (ANCEF) injection 1 g 1 g, Irrigation, Once, 1 dose, On Veronica 02/15/20 at 1100, Physician to flush device pocket in Sock Folder., Pre-Op Given 02/15/2020 12:00 PM WORK MANAGER 1 g diphenhydrAMINE (BENADRYL) 50 MG/ML injection 1 dose, Starting on Veronica 02/15/20 at 1124, Until Veronica 02/15/20 at 1200, Created by cabinet override, Intra-Op Given 02/15/2020 12:00 PM WORK MANAGER 12.5 mg fentaNYL (SUBLIMAZE) 100 MCG/2ML injection 1 dose, Starting on Veronica 02/15/20 at 1124, Until Veronica 02/15/20 at 1200, Created by cabinet override, Intra-Op Given 02/15/2020 12:00 PM WORK MANAGER 100 mcg lidocaine (XYLOCAINE) 1 % injection SOLN 1 dose, Starting on Veronica 02/15/20 at 1042, Until Veronica 02/15/20 at 1200, Created by cabinet override, Intra-Op Given 02/15/2020 12:00 PM WORK MANAGER 10 mLs midazolam (VERSED) 2 MG/2ML injection 1 dose, Starting on Veronica 02/15/20 at 1124, Until Veronica 02/15/20 at 1200, Created by cabinet override, Intra-Op Given 02/15/2020 12:00 PM WORK MANAGER 4 mg sodium chloride 0.9 % infusion 1 dose, Starting on Veronica 02/15/20 at 1042, Until Veronica 02/15/20 at 1201, Created by cabinet override, Intra-Op New Bag 02/15/2020 12:00 PM WORK MANAGER sterile water injection 1 dose, Starting on Veronica 02/15/20 at 1042, Until Veronica 02/15/20 at 1200, Created by cabinet override, Intra-Op Given 02/15/2020 12:00 PM WORK MANAGER 20 mLs documented in this encounter Active and Recently Administered Medications Times are shown in WORK MANAGER. Scheduled Medication Order 02/13/2020 02/14/2020 02/15/2020 ceFAZolin (ANCEF) 2 g in sodium chloride 0.9 % 100 mL IVPB 2 g, Intravenous, at 200 mL/hr, order caller, 1 dose, On Veronica 02/15/20 at 1100, Give 2 gram dose for patients less than 120 kg. Give within 60 minutes of surgical incision., Pre-Op 1200 (Not Given - Pr ovider: Heraclio Roland RN - Reason: Other - Comment: Pulled from pyxis in metallurgical lab technician, see MAR for administration) ceFAZolin (ANCEF) injection 1 g (COMPLETED) 1 g, Irrigation, Once, 1 dose, On Veronica 02/15/20 at 1100, Physician to flush device pocket in Sock Folder., Pre-Op 1200 (Given - Provid er: Heraclio Roland RN - Comment: table med, mixed with sterile water for table flush. See prolog for administration time) No Frequency Medication Order 02/13/2020 02/14/2020 02/15/2020 ceFAZolin (ANCEF) 2-0.9 GM/100ML-% IVPB (COMPLETED) 1 dose, Starting on Veronica 02/15/20 at 1119, Until Veronica 02/15/20 at 1215, Created by cabinet override, Intra-Op 1148 (New Bag - Prov ider: Heraclio Roland RN - Comment: given intra procedure, see prolog for administration time)1215 (Infusion Stop Time - Provider: Heraclio Roland RN) diphenhydrAMINE (BENADRYL) 50 MG/ML injection (COMPLETED) 1 dose, Starting on Veronica 02/15/20 at 1124, Until Veronica 02/15/20 at 1200, Created by cabinet override, Intra-Op 1200 (Given - Provid er: Heraclio Roland RN - Comment: see prolog for administration time) fentaNYL (SUBLIMAZE) 100 MCG/2ML injection (COMPLETED) 1 dose, Starting on Veronica 02/15/20 at 1124, Until Veronica 02/15/20 at 1200, Created by cabinet override, Intra-Op 1200 (Given - Provid er: Heraclio Roland RN - Comment: see prolog for admnistration times) lidocaine (XYLOCAINE) 1 % injection SOLN (COMPLETED) 1 dose, Starting on Veronica 02/15/20 at 1042, Until Veronica 02/15/20 at 1200, Created by cabinet override, Intra-Op 1200 (Given - Provid er: Heraclio Roland RN - Comment: see prolog for administration time, table med) midazolam (VERSED) 2 MG/2ML injection (COMPLETED) 1 dose, Starting on Veronica 02/15/20 at 1124, Until Veronica 02/15/20 at 1200, Created by cabinet override, Intra-Op 1200 (Given - Provid er: Heraclio Roland RN - Comment: see prolog for administration times) sodium chloride 0.9 % infusion (COMPLETED) 1 dose, Starting on Veronica 02/15/20 at 1042, Until Veronica 02/15/20 at 1201, Created by cabinet override, Intra-Op 1200 (New Bag - Prov ider: Heraclio Roland RN - Comment: used for sedation flush, see prolog for administration)1201 (Infusion Stop Time - Provider: Heraclio Roland, RN) sterile water injection (COMPLETED) 1 dose, Starting on Veronica 02/15/20 at 1042, Until Veronica 02/15/20 at 1200, Created by cabinet override, Intra-Op 1200 (Given - Provid er: Heraclio Roland, RN - Comment: mixed with 1G ancef for pocket flush, see prolog for administration time) documented in this encounter Care Teams Fashion Adviser Relationship Specialty Start Date End Date Elaina Jade MD [facility]. [address] [address] PCP - General INTERNAL MEDICINE 08/23/18 03/03/23 Joni Mckeon MD [facility]. [address] [address] Christopher Expressive Therapist CARDIOVASCULAR DISEASE 07/04/18 documented as of this encounter
--- OUTSIDE RECORDS SUMMARY | 2024-04-05 00:15 | XMS_ITS | Encounter Summary ---
Author Organization [facility] Address [address] [place] [address]. [place] [address] [place] [address] Care Team Providers Care Shrink Pit Supervisor Name Role Phone Joni Mckeon MD Unavailable [phone] Noemi Barnard MD Primary Care Provider [phone] Encounter Details Date Type Department Care Team (Late st Contact Info) Description 02/05/2020 Pre-Procedure Call [facility] One Day [facility] [place], [place] [id number] Cruzito Mcnulty MD Three [facility]. [place] [address] [place] [address] Social History Tobacco Use Types [...] No Laura Cheatham, RN Return home with [facility] home health General No Malgorzata Brown SANDER SETTER HOME WITH DAUGHTER General No Laura Cheatham, RN documented as of this encounter Visit Diagnoses Not on filedocumented in this encounter Care Teams Shrink Pit Supervisor Relationship Specialty Start Date End Date Noemi Barnard MD [address] [address] PCP - General INTERNAL MEDICINE 08/23/18 03/03/23 Joni Mckeon MD Three [facility]. [facility] [address] [place] [address] Christopher Sharples Machine Operator CARDIOVASCULAR DISEASE 07/04/18 documented as of this encounter
--- OUTSIDE RECORDS SUMMARY | 2024-04-05 00:15 | XMS_ITS | Encounter Summary ---
Author Organization [facility] Address [address] [place] [address]. [place], [place] [address] [place] [address] Care Team Providers Care Media Account Executive Name Role Phone Joni Mckeon MD Unavailable [phone] Noemi Barnard MD Primary Care Provider [phone] Encounter Details Date Type Department Care Team (Latest Contact Info) Description 01/02/2020 Travel Social History Tobacco Use Types Packs/Day [...] have Coronavirus / COVID-19? No / Unsure 01/02/2020 11:48 AM CDT documented as of this encounter [...] on filedocumented in this encounter Care Teams Media Account Executive Relationship Specialty Start Date End Date Noemi Barnard MD Three [facility]. [address] [address] PCP - General INTERNAL MEDICINE 08/23/18 03/03/23 Joni Mckeon MD Three [facility]. [facility] [address] [place] [address] Christopher Veterans Service Officer CARDIOVASCULAR DISEASE 07/04/18 documented as of this encounter
--- OUTSIDE RECORDS SUMMARY | 2024-04-05 00:15 | XMS_ITS | Encounter Summary ---
Author Organization [facility] Address [address] [place] [address]. [place], [place] [address] [place] [address] Care Team Providers Care Talent Acquisition Lead Name Role Phone Joni Mckeon MD Unavailable [phone] Noemi Barnard MD Primary Care Provider [phone] Reason for Referral * Consultation (Routine) - Closed Specialty Diagnoses / Procedures Referred By Eugenie crain Referred To Contact GASTROENTEROLOGY Diagnoses Weight loss Gastroesophageal reflux disease without esophagitis Diverticulitis [place] [address] [place] [address] Phone: tel: fax: [facility] [address] [address] Phone: tel: fax: Referral ID Status Reason Start Date Expiration Date Visits Re quested Visits Authorized [id number] Closed 02/02/2020 03/05/2021 1 1 Encounter Details Date Type Department Care Team (Late st Contact Info) Description 02/02/2020 Orders Only [facility] Medical [facility] [address] [address] [place] [address] [place] [address] Social History Tobacco Use Types [...] in this encounter Plan of Treatment Scheduled Referrals Name Type Priority Associated Diagnoses Orde r Schedule Ambulatory referral to Gastroenterology ([facility]) Referral Routine Weight loss Gastroesophageal reflux disease without esophagitis Diverticulitis Ordered: 02/02/2020 documented as of this encounter Goals Goal Patient Goal Type Associated Problems Recent Progress Patient-Stated? Author Improve Home Support System General No Laura Cheatham, RN Return home with [facility] home health General No Malgorzata Brown, SILVICULTURE PROFESSOR HOME WITH DAUGHTER General No Laura Cheatham, RN documented as of this encounter Visit Diagnoses Diagnosis Weight loss- Primary Loss of weight Gastroesophageal reflux disease without esophagitis Esophageal reflux Diverticulitis Diverticulitis of colon (without mention of hemorrhage) Hypothyroidism, unspecified type documented in this encounter Care Teams Talent Acquisition Lead Relationship Specialty Start Date End Date Noemi Barnard MD [facility]. [address] [address] PCP - General INTERNAL MEDICINE 08/23/18 03/03/23 Joni Mckeon MD Three [facility]. [facility] [address] [place] [address] [place] Foreign Broadcast Specialist CARDIOVASCULAR DISEASE 07/04/18 documented as of this encounter
--- OUTSIDE RECORDS SUMMARY | 2024-04-05 00:15 | XMS_ITS | Encounter Summary ---
Author Organization [facility] Address [address] [place] [address]. [place] [address] [place] [address] Care Team Providers Care Occupational Therapy Specialist Name Role Phone Joni Mckeon MD Unavailable [phone] Noemi Barnard MD Primary Care Provider [phone] Encounter Details Date Type Department Care Team (Late st Contact Info) Description 02/05/2020 Orders Only [facility] ONE [place], [place] [id number] Cruzito Mcnulty MD Three [facility]. [facility] [address] [place] [address] Social History Tobacco Use [...] No Laura Cheatham RN Return home with [facility] home health General No Malgorzata Brown MSW HOME WITH DAUGHTER General No Laura Cheatham RN documented as of this encounter Results * PRE-SURGICAL/PRE-PROCEDURE CORONAVIRUS (COVID 19) (02/12/2020 9:35 AM STRATIGRAPHER) CORONAVIRUS SARS COV 2 PCR (RESP) NOT DETECTED NOT DETECTED 02/13/2020 8:51 AM STRATIGRAPHER [facility] Comment: A Not Detected (negative) test result [...] providers and patients using the following websites: https://www.[employer].Hotelscan/home/Covid-19/HCP/QuestIVD/fact- sheet.html https://www.[employer].Hotelscan/home/Covid-19/Patients/ QuestIVD/fact-sheet.html This test has been authorized by the FDA under an Emergency Use Authorization (EUA) for use by authorized laboratories. Due to the current public health emergency, [facility] is receiving a high volume of samples [...] about COVID-19 can be found at the [employer] website: www.[employer].Hotelscan/Covid19. Test performed at [facility] [address] ??[id number] Director: JODIE PUENTE DO,MPH FIRST TEST NO 02/12/2020 1:[address] [facility] EMPLOYED IN HEALTHCARE NO 02/12/2020 1:[address] [facility] SYMPTOMATIC DEFINED BY CDC NO 02/12/2020 1:[address] [facility] DATE OF SYMPTOM ONSET NO 02/12/2020 2:[address] [facility] HOSPITALIZATION STATUS NO 02/12/2020 1:51 PM STRATIGRAPHER [facility] PATIENT IN ICU NO 02/12/2020 1:51 PM STRATIGRAPHER [facility] RESIDENT OF [facility] NO 02/12/2020 1:51 PM STRATIGRAPHER [facility] NOT 02/12/2020 2:27 PM STRATIGRAPHER [facility] PATIENT'S RACE WHITE OR 02/12/2020 1:51 PM STRATIGRAPHER [facility] ETHNICITY NONHISPANIC 02/12/2020 1:51 PM STRATIGRAPHER [facility] SOURCE (QST) NASOPHARYNGEAL SWAB 02/12/2020 1:51 PM STRATIGRAPHER [facility] NASOPHARYNGEAL SWAB / Unknown 02/12/2020 9:35 AM STRATIGRAPHER us Cruzito Mcnulty MD MICROBIOLOGY - GENERAL ORDERABLE S Final Result [facility] [address] [place] [address], [place] [address], documented in this encounter Visit Diagnoses Diagnosis Pre-op testing- Primary Preoperative examination, unspecified documented in this encounter Care Teams Occupational Therapy Specialist Relationship Specialty Start Date End Date Noemi Barnard MD [facility]. [address] [address] PCP - General INTERNAL MEDICINE 08/23/18 03/03/23 Joni Mckeon MD [facility]. [facility] [address] [place] [address] [place] Instruction 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
--- OUTSIDE RECORDS SUMMARY | 2024-04-05 00:15 | XMS_ITS | Encounter Summary ---
Author Organization [facility] Address [address] [place] [address]. [place] [address] [place] [address] Care Team Providers Care Hat Finishing Materials Preparer Name Role Phone Joni Mckeon MD Unavailable [phone] Noemi Barnard MD Primary Care Provider [phone] Reason for Visit * Reason Onset Date Comments Follow Up Call 02/16/2020 Post pacemaker i mplant F/U call Encounter Details Date Type Department Care Team (Late st Contact Info) Description 02/16/2020 Telephone [facility] [address] [place] [address] Cruzito Mcnulty MD [facility]. [facility] [address] [place] [address] Follow Up Call (Post pacemaker implant F/U call) Social History Tobacco Use Types Packs/Day Years [...] COVID-19? No / Unsure 02/15/2020 9:55 AM DONOR CENTER TECHNICIAN documented as of this encounter Functional [...] Progress Notes * Nolvia Thomason RN - 02/16/2020 9:54 AM CST I called and spoke with the patients daughter and reviewed her mothers Post- Operative Instructions for Pacemaker Patients. I reassured her that her [place] monitor is hooked up and the transmission demonstrates appropriate function. Incision: ??? Inspect the incision for redness, drainage or increase in swelling. If any changes are noted, please report changes or symptoms to your physician. ??? Keep the incision clean and dry. Resume shower after 1 week. DO NOT USE OINTMENTS OR SOAP ON THE INCISION. Pat the wound dry after your shower. ??? If you have ster-strips on the incision, DO NO removed them, allow them to fall off, this may take up to 2 weeks. ??? If you have a large dressing with tubing and a white box attached, this is a CHANDRIKA dressing thatwill be removed when you come in the office for your 1 week wound check. ??? You may stop wearing the sling after discharge from the hospital. Activity: ??? Avoid strenuous movements of the affected arm for 1 month. Strenuous movements include, reaching above your shoulder level or behind your back, pushing or pulling, activities such as gardening, using a push brewery cellar worker, casting a fishing line or golfing. DO NOT lift anything over 10 pounds with the affected extremity. ??? Driving may be resumed after 2 weeks, unless otherwise directed by your physician. ??? Cautiously begin adding activities after the 1st month. ??? The lifestyle of pacemaker patients is usually back to normal within 3 months. Follow up: ??? You should have an appointment with the pacemaker nurse for a wound check following you hospital discharge. ??? If you were not given an appointment, please call the office at [phone] and ask for the device clinic. ??? A follow-up appointment with your Physician, Physician Payroll Clerk, or Nurse Practitioner will bemade at your wound check. ??? Report any sudden change in your condition such as weakness, light-headed episodes, shortness of breath, pain or fever. ??? Carry your pacemaker identification card with you at all times. A permanent card will be mailedto you in 6-8 weeks to replace the temporary card. ??? Inform all of your Physicians that you have a pacemaker implanted. Additionally, Keep your bedside monitor plugged in. If you have any questions regarding your pacemaker, please feel free to contact the device clinic at [phone]. R CENTER TECHNICIAN documented in this encounter Plan of Treatment Not on file documented as of this encounter Goals Goal Patient Goal Type Associated Problems Recent Progress Patient-Stated? Author Improve Home Support System General No Laura Cheatham RN Return home with [facility] home health General No Flamm, Malgorzata M, HABILITATIVE INTERVENTIONIST HOME WITH DAUGHTER General No Laura Cheatham RN documented as of this encounter Visit Diagnoses Not on filedocumented in this encounter Care Teams Hat Finishing Materials Preparer Relationship Specialty Start Date End Date Noemi Barnard MD [facility]. [address] [address] PCP - General INTERNAL MEDICINE 08/23/18 03/03/23 Joni Mckeon MD [facility]. [address] [address] [place] Commercial Technician CARDIOVASCULAR DISEASE 07/04/18 documented as of this encounter
--- OUTSIDE RECORDS SUMMARY | 2024-04-05 00:15 | XMS_ITS | Encounter Summary ---
Author Organization [facility] Address [address] [place] [address]. [place], [place] [address] [place] [address] Care Team Providers Care Laborer General Name Role Phone Joni Mckeon MD Unavailable [phone] Noemi Barnard MD Primary Care Provider [phone] Encounter Details Date Type Department Care Team (Latest Contact Info) Description 01/31/2020 Scan HEALTH INFO SRVCS Scanned, Documents Social [...] COVID-19? Unable to assess 02/27/2020 2:00 PM HARVESTING CONTRACTOR documented as of this encounter Functional Status [...] No Laura Cheatham, RN Return home with [facility] home health General No Malgorzata Brown MACHINED PARTS METAL SPRAYER HOME WITH DAUGHTER General No Laura Cheatham, RN documented as of this encounter Visit Diagnoses Not on filedocumented in this encounter Additional Health Concerns Infection Onset Date Last Indicated Resolved Time COVID-19 Rule Out 02/12/2020 02/12/2020 02/13/2020 8:51 AM HARVESTING CONTRACTOR documented as of this encounter Care Teams Laborer General Relationship Specialty Start Date End Date Noeim Barnard MD Three [place] [facility]. [address] [id number] PCP - General INTERNAL MEDICINE 08/23/18 03/03/23 Joni Mckeon MD [address] [facility] [address] [place], [place] [address] Christopher Labor Law Professor CARDIOVASCULAR DISEASE 07/04/18 documented as of this encounter
--- OUTSIDE RECORDS SUMMARY | 2024-04-05 00:15 | XMS_ITS | Encounter Summary ---
Author Organization [facility] Address [address] [place] [address]. [place] [address] [place] [address] Care Team Providers Care Fabrication Manager Name Role Phone Joni Mckeon MD Unavailable [phone] Nomei Barnard MD Primary Care Provider [phone] Encounter Details Date Type Department Care Team (Latest Contact Info) Description 01/31/2020 1:44 PM CDT - 01/31/2020 1:46 PM CDT Hospital Encounter [facility] [address] [place], [place] [id number] [place] [address] [place], [place] [id number] Discharge Disposition: Home or Self Care (Routine [...] CENTER home health General No Malgorzata Brown, FACILITY ENVIRONMENTAL TECHNICIAN HOME WITH DAUGHTER General No Laura Cheatham RN documented as of this encounter Visit Diagnoses Not on filedocumented in this encounter Care Teams Fabrication Manager Relationship Specialty Start Date End Date [facility] [address] PCP - General INTERNAL MEDICINE 08/23/18 03/03/23 Joni Mckeon MD Three [facility]. [place] [address] [place] [address] [place] Regulatory Scientist CARDIOVASCULAR DISEASE 07/04/18 documented as of this encounter
--- OUTSIDE RECORDS SUMMARY | 2024-04-05 00:15 | XMS_ITS | Encounter Summary ---
Author Organization [facility] Address [address] [place] [address]. [place] [address] [place] [address] Care Team Providers Care Deli/Bakery Associate Name Role Phone Joni Mckeon MD Unavailable [phone] Noemi Barnard MD Primary Care Provider [phone] Encounter Details Date Type Department Care Team (Latest Contact Info) Description 01/31/2020 Travel Social History Tobacco Use Types Packs/Day [...] No Laura Cheatham, RN Return home with [facility] home health General No Malgorzata Brown, SNOW TECHNICIAN HOME WITH DAUGHTER General No Laura Cheatham, RN documented as of this encounter Visit Diagnoses Not on filedocumented in this encounter Care Teams Deli/Bakery Associate Relationship Specialty Start Date End Date Noemi Barnard MD [facility]. [address] [address] PCP - General INTERNAL MEDICINE 08/23/18 03/03/23 Joni Mckeon MD Three [facility]. [facility] [address] [place] [address] [place] Executive Chef Assistant CARDIOVASCULAR DISEASE 07/04/18 documented as of this encounter
--- OUTSIDE RECORDS SUMMARY | 2024-04-05 00:15 | XMS_ITS | Encounter Summary ---
Author Organization [facility] Address [facility] [place] [address] [place] [address] Care Team Providers Care Shut Off Worker Name Role Phone Joni Mckeon MD Unavailable [phone] Noemi Barnard MD Primary Care Provider [phone] Reason for Visit * Reason Comments Remote Device Check routine Toney remot e pacemaker transmission POD 1 Encounter Details Date Type Department Care Team (Latest Contact Info) Description 02/16/2020 9:00 AM PROPELLER TESTER Allied Health/Nurse Visit [facility] [address] Remote Device Check (routine [place] remote pacemaker transmission POD 1) Social History Tobacco Use Types Packs/Day Years [...] COVID-19? No / Unsure 02/15/2020 9:55 AM PROPELLER TESTER documented as of this encounter Functional Status [...] Notes * Nolvia Thomason RN - 02/16/2020 9:00 AM CST Routine [place] Pacemaker Remote. POD 1 Transmission attached. Stable battery, and atrial and RV sensing threshold. AP %: 49, DOCUMENTATION WRITER %: < 1 (0) AT/AF episodes. (0) Ventricular arrhythmias detected Presenting AP/VS and SR/SA with 1st degree AVB MEDS: ASA Follow up: wound check 02/20/2020 Cosigned by Cruzito Mcnulty MD at 02/16/2020 11:20 AM PROPELLER TESTER ELLER TESTER ELLER TESTER documented in this encounter Plan of Treatment Not on file documented as of this encounter Goals Goal Patient Goal Type Associated Problems Recent Progress Patient-Stated? Author Improve Home Support System General No Laura Cheatham, RN Return home with [facility] home health General No IzzyoneilMalgorzata, FISCAL SPECIALIST HOME WITH DAUGHTER General No Laura Cheatham, RN documented as of this encounter Visit Diagnoses Not on filedocumented in this encounter Care Teams Shut Off Worker Relationship Specialty Start Date End Date Noemi Barnard MD [facility]. [address] [address] PCP - General INTERNAL MEDICINE 08/23/18 03/03/23 Joni Mckeon MD [facility]. [address] [address] Christopher Software Developer CARDIOVASCULAR DISEASE 07/04/18 documented as of this encounter
--- OUTSIDE RECORDS SUMMARY | 2024-04-05 00:16 | XMS_ITS | Encounter Summary ---
Author Organization [facility] Address [address] [place] [address]. [place], [place] [address] [place] [address] Care Team Providers Care Icu Registered Nurse Name Role Phone Joni Mckeon MD Unavailable [phone] Noemi Barnard MD Primary Care Provider [phone] Encounter Details Date Type Department Care Team (Latest Contact Info) Description 11/07/2019 Travel Social History Tobacco Use Types Packs/Day [...] have Coronavirus / COVID-19? No / Unsure 11/07/2019 1:26 PM CDT documented as of this encounter [...] on filedocumented in this encounter Care Teams Icu Registered Nurse Relationship Specialty Start Date End Date Noemi Barnard MD Three [facility]. [address] [address] PCP - General INTERNAL MEDICINE 08/23/18 03/03/23 Joni Mckeon MD Three [facility]. [facility] [address] [place] [address] Christopher Admissions Coordinator CARDIOVASCULAR DISEASE 07/04/18 documented as of this encounter
--- OUTSIDE RECORDS SUMMARY | 2024-04-05 00:16 | XMS_ITS | Encounter Summary ---
Author Organization [facility] Address [address] [place] [address]. [place], [place] [address] [place] [address] Care Team Providers Care Hammer Heater Name Role Phone Jnoi Mckeon MD Unavailable [phone] Noemi Barnard MD Primary Care Provider [phone] Encounter Details Date Type Department Care Team (Latest Contact Info) Description 11/21/2019 Travel Social History Tobacco Use Types Packs/Day [...] have Coronavirus / COVID-19? No / Unsure 11/21/2019 2:29 PM CDT documented as of this encounter [...] on filedocumented in this encounter Care Teams Hammer Heater Relationship Specialty Start Date End Date Noemi Barnard MD Three [facility]. [address] [address] PCP - General INTERNAL MEDICINE 08/23/18 03/03/23 Joni Mckeon MD Three [facility]. [facility] [address] [place] [address] [place] Quality Analyst/Technical Writer CARDIOVASCULAR DISEASE 07/04/18 documented as of this encounter
--- OUTSIDE RECORDS SUMMARY | 2024-04-05 00:16 | XMS_ITS | Encounter Summary ---
Author Organization [facility] Address [address] [place] [address]. [place], [place] [address] [place] [address] Care Team Providers Care Clinical Nursing Coordinator Name Role Phone Joni Mckeon MD Unavailable [phone] Noemi Barnard MD Primary Care Provider [phone] Encounter Details Date Type Department Care Team (Latest Contact Info) Description 11/07/2019 4:44 PM CDT - 11/07/2019 11:59 PM CDT Hospital Encounter [facility] [address] [place], [place] [id number] Martha Ruiz, MIKE Discharge Disposition: Home or Self Care (Routine [...] by mouth every morning. Indications: Depression 08/17/2019 amLODIPine 5 MG tablet Take 1 tablet (5 mg total) by mouth daily. 90 tablet 1 09/20/2019 0 benazepril 20 MG tablet Take 1 tablet by mouth daily. 06/20/2019 0 levothyroxine 50 MCG tabletIndication s:Hypothyroidism Indications: Underactive Thyroid Take 1 tablet (50mcg total) by mouth in the morning on Wednesday and Wednesday. 03/08/2019 0 nitrofurantoin 50 MG capsuleIndicatio ns:Recurrent UTI Take 1 capsule (50 mg total) by mouth nightly at bedtime. 30 capsule 2 10/19/2019 2 OMEPRAZOLE 20 MG capsuleIndicatio ns:Gastroesophag eal reflux disease with esophagitis TAKE 1 CAPSULE(20 MG) BY MOUTH DAILY 90 capsule 08/25/2019 0 pravastatin 40 MG tabletIndication s:Hyperlipidemia Take 1 tablet (40 mg total) by mouth nightly at bedtime. at bedtime. 90 tablet 09/20/2019 0 documented as of this encounter Plan of Treatment Not on file documented as of this encounter Goals Goal Patient Goal Type Associated Problems Recent Progress Patient-Stated? Author [facility] Support System General No Laura Cheatham, RN Return home with [facility] home health General No Malgorzata Brown, APARTMENT RENTAL CLERK HOME WITH DAUGHTER General No Laura Cheatham RN documented as of this encounter Procedures Procedure Name Priority Date/Time Associated Diagnosis Comments TSH W/REFLEX Routine 11/07/2019 2:04 PM CDT Hypothyroidism, unspecified type HEMOGLOBIN, GLYCOSYLATED Routine 11/07/2019 2:04 PM CDT Type 2 diabetes mellitus with stage 3 chronic kidney disease, without long-term current use of insulin ([facility]) COMPREHENSIVE METABOLIC PANEL Routine 11/07/2019 2:04 PM CDT Hyperthyroidism Irregular heart rate CBC W/DIFF AUTOMATED Routine 11/07/2019 2:04 PM CDT Hyperthyroidism Irregular heart rate THYROXINE, FREE (FT4) Routine 11/07/2019 2:04 PM CDT documented in this encounter Results * THYROXINE, FREE (FT4) (11/07/2019 2:04 PM CDT) FREE T4 1.02 0.76 - 1.46 NG/DL 11/07/2019 6:[address] [facility] 11/07/2019 2:04 PM CDT Martha Ruiz NP LABORATORY Final Result [facility] [address] [place] [address], [place] [phone] * (ABNORMAL) COMPREHENSIVE METABOLIC PANEL (11/07/2019 2:04 PM CDT) Pathologist [facility] GLUCOSE 148(H) 70 - 99 MG/DL 11/07/2019 5:[address] [facility] BUN 16 7 - 18 MG/DL 11/07/2019 5:[address] [facility] CREATININE S/P/B 0.91 0.55 - 1.02 MG/DL 11/07/2019 5:[address] [facility] SODIUM S/P/B 144 136 - 145 MMOL/L 11/07/2019 5:[address] [facility] POTASSIUM S/P/B 3.7 3.5 - 5.1 MMOL/L 11/07/2019 5:[address] [facility] CHLORIDE S/P/B 106 100 - 108 MMOL/L 11/07/2019 5:[address] [facility] CO2 29.0 21 - 32 MMOL/L 11/07/2019 5:[address] [facility] CALCIUM S/P/B 8.8 8.5 - 10.1 MG/DL 11/07/2019 5:[address] [facility] BILIRUBIN TOTAL S/P/B 0.5 0.2 - 1.2 MG/DL 11/07/2019 5:[address] [facility] TOTAL PROTEIN S/P/B 6.7 6.4 - 8.2 G/DL 11/07/2019 5:[address] [facility] ALBUMIN S/P/B 3.8 3.4 - 5.0 G/DL 11/07/2019 5:[address] [facility] AST 20 15 - 37 U/L 11/07/2019 5:[address] [facility] ALT 25 14 - 55 U/L 11/07/2019 5:[address] [facility] ALKALINE PHOSPHATASE S/P/B 91 50 - 136 U/L 11/07/2019 5:[address] [facility] ANION GAP 9.0 5 - 15 MMOL/L 11/07/2019 5:[address] [facility] BUN CREATININE RATIO 17.6 6 - 26 11/07/2019 5:[address] [facility] A/G RATIO 1.3 1.0 - 2.0 RATIO 11/07/2019 5:[address] [facility] EGFR NON-AFR. AMER. 58(L) >90 ML/MIN/1.7 3 M2 11/07/2019 5:[address] [facility] EGFR AFR. AMER. 67(L) >90 ML/MIN/1.7 3 M2 11/07/2019 5:[address] [facility] Comment: NOTE: eGFR is not calculated for patients <18 years of age. This is an estimated GFR (CKD EPI) and should not be used for calculating drug doses. 11/07/2019 2:04 PM CDT Martha Ruiz NP LABORATORY Final Result [facility] [address] [place] [address], [place] [phone] * (ABNORMAL) CBC W/DIFF AUTOMATED (11/07/2019 2:04 PM CDT) [facility] WBC 5.7 4.4 - 11.0 x10'3/uL 11/07/2019 5:[address] [facility] RBC 4.34(L) 4.50 - 5.10 x10'6/uL 11/07/2019 5:[address] [facility] HGB 12.3 12.3 - 15.3 G/DL 11/07/2019 5:[address] [facility] HCT 38.5 35.9 - 44.6 % 11/07/2019 5:[address] [facility] MCV 88.7 80.0 - 96.0 FL 11/07/2019 5:[address] [facility] MCH 28.3 25.3 - 30.9 PG 11/07/2019 5:[address] [facility] MCHC 31.9 31.0 - 34.1 G/DL 11/07/2019 5:[address] [facility] RDW 13.7 12.4 - 15.1 % 11/07/2019 5:[address] [facility] PLT 210 151 - 353 x10'3/uL 11/07/2019 5:[address] [facility] MPV 10.8 9.6 - 12.0 FL 11/07/2019 5:[address] [facility] RBC MORPHOLOGY NORMAL 11/07/2019 5:[address] [facility] PLT MORPH. NORMAL 11/07/2019 5:[address] [facility] WBC MORPHOLOGY NORMAL 11/07/2019 5:[address] [facility] LYMPHOCYTES % 10.6(L) 15.8 - 45.0 % 11/07/2019 5:30 [address] [facility] NEUTROPHILS % 80.4(H) 42.1 - 71.9 % 11/07/2019 5:[address] [facility] MONOCYTES % 7.5 5.7 - 12.5 % 11/07/2019 5:[address] [facility] EOSINOPHILS 1.0 0.0 - 5.6 % 11/07/2019 5:[address] [facility] BASOPHILS 0.3 0.0 - 1.3 % 11/07/2019 5:[address] [facility] ABS. NEUTROPHILS TOTAL 4.60 1.40 - 6.00 x10'3/uL 11/07/2019 5:[address] [facility] IMMATURE GRANS % 0.2 0.0 - 0.5 % 11/07/2019 5:[address] [facility] ABS. LYMPHOCYTES 0.61(L) 0.80 - 4.70 x10'3/uL 11/07/2019 5:[address] [facility] 11/07/2019 2:04 PM CDT Martha Ruiz NP LABORATORY Final Result Performing Organization Address [facility]/State/ZIP Co de Phone Number [facility] [address] [place] [address], * (ABNORMAL) TSH W/REFLEX (11/07/2019 2:04 PM CDT) TSH 4.713(H) 0.358 - 3.74 uIU/ML 11/07/2019 5:[address] [facility] Comment: HIGH DOSES OF BIOTIN MAY INTERFERE WITH THIS TEST RESULT. CORRELATION TO CLINICAL HISTORY AND PRESENTATION RECOMMENDED. 11/07/2019 2:04 PM CDT Martha Ruiz NP LABORATORY Final Result Performing Organization Address City/[facility] Co de Phone Number [facility] [address] [place] [address], * (ABNORMAL) HEMOGLOBIN, GLYCOSYLATED (11/07/2019 2:04 PM CDT) HGB A1C 5.7(H) <5.7 % 11/07/2019 6:[address] [facility] Comment: INCREASED RISK OF DIABETES <5.7% ?NON-DIABETES 5.7-6.4% INCREASED RISK FOR FUTURE DIABETES > OR = 6.5 CONSISTENT WITH DIABETES STANDARDS OF MEDICAL CARE IN DIABETES-2010 DIABETES CARE, 33(SUPP 1): S1-S61,2009 11/07/2019 2:04 PM CDT Martha Ruiz NP LABORATORY Final Result Performing Organization Address [facility] Co de Phone Number [facility] [address] [place] [address], documented in this encounter Visit Diagnoses Diagnosis Type 2 diabetes mellitus with stage 3 chronic kidney disease, without long-term current use of insulin ([facility]) Hypothyroidism, unspecified type Hyperthyroidism Thyrotoxicosis without mention of goiter or other cause, without mention of thyrotoxic crisis or storm Irregular heart rate Cardiac dysrhythmia, unspecified documented in this encounter Care Teams Clinical Nursing Coordinator Relationship Specialty Start Date End Date Noemi Barnard MD [facility]. [address] [address] PCP - General INTERNAL MEDICINE 08/23/18 03/03/23 Joni Mckeon MD [facility]. [facility] [address] [place] [address] [employer] Security Site Supervisor CARDIOVASCULAR DISEASE 07/04/18 documented as of this encounter
--- OUTSIDE RECORDS SUMMARY | 2024-04-05 00:16 | XMS_ITS | Encounter Summary ---
Author Organization [facility] Address [address] [place] [address]. [place], [place] [address] [place] [address] Care Team Providers Care Stove Mounter Name Role Phone Joni Mckeon MD Unavailable [phone] Noemi Barnard MD Primary Care Provider [phone] Encounter Details Date Type Department Care Team (Latest Contact Info) Description 12/26/2019 Travel Social History Tobacco Use Types Packs/Day [...] have Coronavirus / COVID-19? No / Unsure 12/26/2019 4:20 PM CDT documented as of this encounter [...] [facility] [place] [facility] health General No Malgorzata Brown MSW HOME WITH DAUGHTER General No Laura Cheatham, RN documented as of this encounter Visit Diagnoses Not on filedocumented in this encounter Care Teams Stove Mounter Relationship Specialty Start Date End Date Noemi Barnard MD [facility]. [address] [address] PCP - General INTERNAL MEDICINE 08/23/18 03/03/23 Joni Mckeon MD [facility]. [facility] [address] [place] [address] Christopher Live In Caregiver CARDIOVASCULAR DISEASE 07/04/18 documented as of this encounter
--- OUTSIDE RECORDS SUMMARY | 2024-04-05 00:16 | XMS_ITS | Encounter Summary ---
Author Organization [facility] Address [address] [place] [address]. [place], [place] [address] [place] [address] Care Team Providers Care Carpet Cutter Name Role Phone Joni Mckeon MD Unavailable [phone] Noemi Barnard MD Primary Care Provider [phone] Reason for Referral * Imaging (Routine) - Closed Specialty Diagnoses / Procedures Referred By Eugenie crain Referred To Contact RADIOLOGY Diagnoses Recurrent UTI Procedures US RETROPERITONEAL COMP Marry Pina APNP Phone: tel: fax: Referral ID Status Reason Start Date Expiration Date Visits Re quested Visits Authorized [id number] Closed 10/03/2019 11/01/2020 1 1 Reason for Visit * Imaging (Routine) - Closed Specialty Diagnoses / Procedures Referred By Eugenie crain Referred To Contact RADIOLOGY Diagnoses Recurrent UTI Procedures US RETROPERITONEAL COMP Marry Pina APNP Phone: tel: fax: Referral ID Status Reason Start Date Expiration Date Visits Re quested Visits Authorized [id number] Closed 10/03/2019 11/01/2020 1 1 Encounter Details Date Type Department Care Team (Latest Contact Info) Description 10/20/2019 9:53 AM CDT - 10/20/2019 11:59 PM CDT Hospital Encounter [facility] Ultrasound [address] [address] Marry Pina, BAILEY [address] [phone] Discharge Disposition: Home or Self Care (Routine [...] have Coronavirus / COVID-19? No / Unsure 10/19/2019 12:28 PM CDT documented as of this encounter [...] 09/20/2019 0 documented as of this encounter Progress Notes * BAILEY Miller - 10/20/2019 11:59 PM CDT Please let patient know that the ultrasound of her kidneys showed all of the urine to be draining appropriately. No stones or abnormal masses. documented in this encounter Plan of Treatment Not on file documented as of this encounter Goals Goal Patient Goal Type Associated Problems Recent Progress Patient-Stated? Author Improve Home Support System General No Laura Cheatham, RN Return home with [facility] home health General No Malgorzata Brown, PHYSICIAN CODING SPECIALIST HOME WITH DAUGHTER General No Laura Cheatham RN documented as of this encounter Procedures Procedure Name Priority Date/Time Associated Diagnosis Comments US RETROPERITONEAL COMP Routine 10/20/19 10:22 AM CDT Recurrent UTI documented in this encounter Results * US RETROPERITONEAL COMP (10/20/2019 10:22 AM CDT) Anatomical Region Laterality Modality Abdomen Ultrasound 10/20/2019 10:5 1 AM CDT Impressions 10/20/2019 10:53 AM CDT IMPRESSION: ===== 1. ??No acute renal or bladder abnormalities. 2. ??Questionable bladder wall thickening may be secondary to incomplete distention. Interpreted By: Gino Hernandez MD, 10/20/2019 10:51 AM Narrative 10/20/2019 10:53 AM CDT EXAMINATION: Renal and bladder ultrasound EXAM DATE/TIME: 10/20/2019 9:55 AM REASON FOR EXAM: ??recurrent uti ?? Recurrent UTIs with multiple hospital stays since June. COMPARISON: None TECHNIQUE: Transabdominal ultrasound evaluation of the bilateral kidneys and bladder was performed for analysis of grayscale and color Doppler imaging characteristics. FINDINGS: The right kidney measures 9.4 x 3.9 x 3.7 cm. ??The left kidney measures 9.6 x 3.9 x 3.9 cm. ??Bilateral ureteral jets are identified. ??The bladder contours are within normal limits. ??No hydronephrosis on either side. ??Normal flow to both kidneys on Doppler imaging. ??No abnormal cystic or masslike lesions in either kidney. ??Visualized portions of liver and spleen have unremarkable grayscale appearance. ??The IVC is patent. ??Borderline bowel wall thickening up to 7 mm, however this may be secondary to incomplete distention. ===== Procedure Note Gino Hernandez MD - 10/20/2019 EXAMINATION: Renal and bladder ultrasound EXAM DATE/TIME: 10/20/2019 9:55 AM REASON FOR EXAM: recurrent uti Recurrent UTIs with multiple hospital stays since June. COMPARISON: None TECHNIQUE: Transabdominal ultrasound evaluation of the bilateral kidneysand bladder was performed for analysis of grayscale and color Dopplerimaging characteristics. FINDINGS: The right kidney measures 9.4 x 3.9 x 3.7 cm. The left kidney measures9.6 x 3.9 x 3.9 cm. Bilateral ureteral jets are identified. The bladdercontours are within normal limits. No hydronephrosis on either side.Normal flow to both kidneys on Doppler imaging. No abnormal cystic ormasslike lesions in either kidney. Visualized portions of liver andspleen have unremarkable grayscale appearance. The IVC is patent.Borderline bowel wall thickening up to 7 mm, however this may be secondaryto incomplete distention. ===== IMPRESSION: ===== 1. No acute renal or bladder abnormalities. 2. Questionable bladder wall thickening may be secondary to incompletedistention. Interpreted By: Gino Hernandez MD, 10/20/2019 10:51 AM us Marry Pina APNP ULTRASOUND Final Resul t documented in this encounter Visit Diagnoses Diagnosis Recurrent UTI Urinary tract infection, site not specified documented in this encounter Care Teams Carpet Cutter Relationship Specialty Start Date End Date Noemi Barnard MD [facility]. [address] [address] PCP - General INTERNAL MEDICINE 08/23/18 03/03/23 Jon[facility] MD [facility] [address] [place] [address] [place] Ceramics Artist CARDIOVASCULAR DISEASE 07/04/18 documented as of this encounter
--- OUTSIDE RECORDS SUMMARY | 2024-04-05 00:16 | XMS_ITS | Encounter Summary ---
Author Organization [facility] Address [address] [place] [address]. [place], [place] [address] [place] [address] Care Team Providers Care Production Tool Engineer Name Role Phone Joni Mckeon MD Unavailable [phone] Noemi Barnard MD Primary Care Provider [phone] Encounter Details Date Type Department Care Team (Latest Contact Info) Description 11/03/2019 Travel Social History Tobacco Use Types Packs/Day [...] have Coronavirus / COVID-19? No / Unsure 11/03/2019 3:11 PM CDT documented as of this encounter [...] Laura Cheatham, RN Return home with [facility] home health General No Malgorzata Brown MSW HOME WITH DAUGHTER General No Laura Cheatham, RN documented as of this encounter Visit Diagnoses Not on filedocumented in this encounter Care Teams Production Tool Engineer Relationship Specialty Start Date End Date Noemi Barnard MD [facility]. [address] [address] PCP - General INTERNAL MEDICINE 08/23/18 03/03/23 Joni Mckeon MD [facility]. [facility] [address] [place] [address] Christopher Signalling And Communications Engineer CARDIOVASCULAR DISEASE 07/04/18 documented as of this encounter
--- OUTSIDE RECORDS SUMMARY | 2024-04-05 00:16 | XMS_ITS | Encounter Summary ---
Author Organization [facility] Address [facility]. [place], [place] [address] [place] [address] Care Team Providers Care Organizational Development Consultant Name Role Phone Joni Mckeon MD Unavailable [phone] Noemi Barnard MD Primary Care Provider [phone] Reason for Visit * Reason Comments Thyroid Problem 2 month f/u on TSH, pt didnt have lab done yet. She did have recent episodes of light headedness and she did hit her head on the end of tub when using restroom [facility] about a month ago. Encounter Details Date Type Department Care Team (Late st Contact Info) Description 11/07/2019 1:40 PM CDT Office Visit [facility] Family [facility] Internal Medicine [address] [address] Martha Parker NP Thyroid Problem (2 month f/u on TSH, pt didnt have lab done yet. She did have recent episodes of light headedness and she did hit her head on the end of tub when using restroom at [facility] about a month ago. ) Social History Tobacco Use Types Packs/Day [...] Sign Reading Time Taken Comments Blood Pressure 130/60 11/07/2019 1:38 PM CDT Pulse 54 11/07/2019 1:38 PM CDT Temperature 36.2 ??C (97.1 ??F) 11/07/2019 1:38 PM CD T Respiratory Rate 18 11/07/2019 1:38 PM CDT Oxygen Saturation 97% 11/07/2019 1:38 PM CDT Inhaled Oxygen Concentration - - Weight 54.4 kg (120 lb) 11/07/2019 1:38 PM CDT Height 160 cm (5' 3 ) 11/07/2019 1:38 PM CDT Body Mass Index 21.26 11/07/2019 1:38 PM CDT documented in this encounter Functional [...] this encounter Patient Instructions * Patient Instructions* Martha Parker NP - 11/07/2019 1:40 PM CDT Pt will have appt with Dr. Mckeon On . If has more issues will call to be seen sooner. Taking lots of naps through the day. documented in this encounter Progress Notes * Martha Parker NP - 11/07/2019 1:40 PM CDT Reason for Visit: Thyroid Problem (2 month f/u on TSH, pt didnt have lab done yet. She did have recent episodes of light headedness and she did hit her head on the end of tub when using restroom at [facility] about a month ago. ) History of Present Illness: Falling and has had dizziness. Pt is not having any concerns over the fall. Pt did not have any cuts or bruises. Pt has had CT of the brain in August and is not really wanting to have another one. Pt states is having issues with feeling fatigued at [facility] after walking around the store looking for her daughter. Pt did not have any complaints of chest pain or palpitations. Pt states did pass out because does not remember people helping her to lay down. Daughter had sat her on the cart in the [facility] that she was taken to the car. Pt was taken home rested and did not have any slurring. Pt reportedly had a fixed gaze before fainting when eyes then rolled back and pt was stiff and shaking. Pt had reportedly had a fall at night about one month before that the event was not observed so unsure if she had lost consciousness. Pt states did fall flat on face and did have some bruising but seemed toget over that as well. Pt is not weak today and seems alert, denies any weakness of extremities. Pt does not use an assistive device for walking but suggest if she is out in the stores need to use some sort of assistive device and not walk more than she normally does. Pt daughter reports that the pt sleeps a lot during the day taking frequent naps. ROS: Review of Systems Constitutional: Positive for malaise/fatigue and weight loss. See HPI frail weak fragile elderly female HENT: Positive for hearing loss. Pt has hearing loss Eyes: Positive for blurred vision. Respiratory: Negative. Cardiovascular: Negative for leg swelling. See HPI Gastrointestinal: Negative for heartburn. Denies nausea but has no appetite for food. Genitourinary: Positive for dysuria. Occasional incontinence urine. Musculoskeletal: Positive for myalgias. Skin: See HPI Hematoma still present on the right hip with healing laceration to the right lower back from the original fall 07/30/2019 Neurological: Positive for loss of consciousness and weakness. Endo/Heme/Allergies: Diabetes but unsure about control since leaving hospital Psychiatric/Behavioral: Positive for depression and memory loss. The patient is nervous/anxious andhas insomnia. Medications: Current Outpatient Medications: ??? amLODIPine 5 MG tablet, Take 1 tablet (5 mg total) by mouth daily., Disp: 90 tablet, Rfl: 1 ??? aspirin EC 81 MG EC tablet, Take 81 mg by mouth daily. Indications: Anticoagulant Therapy, Disp: , Rfl: ??? benazepril 20 MG tablet, Take 1 tablet by mouth daily., Disp: , Rfl: ??? Cholecalciferol (VITAMIN D) 2000 units Cap, Take 2,000 Units by mouth daily. Indications: Nutritional Support, Disp: , Rfl: ??? donepezil 10 MG Tab, Take 10 mg by mouth every morning. Indications: High Blood Pressure Disorder, Disp: , Rfl: ??? levothyroxine 50 MCG tablet, Indications: Underactive Thyroid Take 1 tablet (50mcg total) by mouth in the morning on Wednesday and Wednesday., Disp: , Rfl: ??? nitrofurantoin 50 MG capsule, Take 1 capsule (50 mg total) by mouth nightly at bedtime., Disp: 30 capsule, Rfl: 2 ??? OMEPRAZOLE 20 MG capsule, TAKE 1 CAPSULE(20 MG) BY MOUTH DAILY, Disp: 90 capsule, Rfl: 0 ??? pravastatin 40 MG tablet, Take 1 tablet (40 mg total) by mouth nightly at bedtime. at bedtime.,Disp: 90 tablet, Rfl: 0 ??? sertraline 100 [...] UNLISTED ??? REPAIR ROTATOR CUFF,ACUTE Social History Socioeconomic History ??? Marital status: Spouse name: Not on file ??? Number of children: 7 ??? Years of education: Not on file ??? Highest education level: Not on file Occupational History Employer: RETIRED Social Needs ??? Financial resource strain: Not on file ??? Food insecurity: Worry: Not on file Inability: Not on file ??? Transportation needs: Medical: Not on file Non-medical: Not on file Tobacco Use ??? Smoking status: Never Smoker ??? Smokeless tobacco: Never Used Substance and Sexual Activity ??? Alcohol use: No Frequency: Never ??? Drug use: No ??? Sexual activity: Not on file Lifestyle ??? Physical activity: Days per week: Not on file Minutes per session: Not on file ??? Stress: Not on file Relationships ??? Social connections: Talks on phone: Not on file Gets together: Not on file Attends sikhism service: Not on file Active member of club or organization: Not on file Attends meetings of clubs or organizations: Not on file Relationship status: Not on file ??? Intimate partner violence: Fear of current or ex partner: Not [...] with her daughter in October 2019 Family History Problem Relation Name Age of Onset ??? Diabetes Other ??? Breast Cancer Other ??? Other (cardiac disorder) Other ??? Heart Attack Mother Family Status Relation Name Status ??? Other (Not Specified) ??? Mother ??? Father Physical Exam Constitutional: She is oriented to person, place, and time. She appears well-developed. Pt is poorly nourished at this time, skin is dry and fragile, losing weight. Weak general condition HENT: Head: Normocephalic and atraumatic. Eyes: Pupils are equal, round, and reactive to light. EOM are normal. Neck: Normal range of motion. Cardiovascular: An irregularly irregular rhythm present. Bradycardia present. Murmur heard. Systolic murmur is present with a grade of 2/6. Pulmonary/Chest: Effort normal. No respiratory distress. She has no decreased breath sounds. She has no rales. Abdominal: Soft. Musculoskeletal: She exhibits tenderness. No edema of lower extremities, Pt is using cane for ambulation, more strength and better posture. Neurological: She is alert and oriented to person, place, and time. Pt is easily confused about medication and what day certain events occurred but pt is very weak at this time Skin: Skin is warm and dry. See HPI for bruising and scratch on the right back Psychiatric: She has a normal mood and affect. Her behavior is normal. Filed Vitals: 11/07/19 1338 BP: 130/60 Pulse: 54 Resp: 18 Temp: 97.1 ??F (36.2 ??C) TempSrc: Temporal SpO2: 97% Weight: 54.4 kg (120 lb) Height: 5' 3 (1.6 m) Assessment Encounter Diagnose(s) ICD-10-CM ICD-9-CM SNOMED CT(R) 1. Type 2 diabetes mellitus with stage 3 chronic kidney disease, without long- term current use of insulin ([facility]) E11.22 250.40 TYPE 2 DIABETES MELLITUS HEMOGLOBIN, GLYCOSYLATED N18.3 585.3 VENIPUNC ARM DRAW 2. Hypothyroidism, unspecified type E03.9 244.9 HYPOTHYROIDISM VENIPUNC ARM DRAW 3. Hyperthyroidism E05.90 242.90 HYPERTHYROIDISM CBC W/DIFF AUTOMATED COMPREHENSIVE METABOLIC PANEL 4. Irregular heart rate I49.9 427.9 IRREGULAR HEART BEAT CBC W/DIFF AUTOMATED COMPREHENSIVE METABOLIC PANEL Recommendations and Plan: Outpatient Encounter Medications as of 11/07/2019 Medication Sig Dispense Refill ??? amLODIPine 5 MG tablet Take 1 tablet (5 mg total) by mouth daily. 90 tablet 1 ??? aspirin EC 81 MG EC tablet Take 81 mg by mouth daily. Indications: Anticoagulant Therapy ??? benazepril 20 MG tablet Take 1 tablet by mouth daily. ??? Cholecalciferol (VITAMIN D) 2000 units Cap Take 2,000 Units by mouth daily. Indications: Nutritional Support ??? donepezil 10 MG Tab Take 10 mg by mouth every morning. Indications: High Blood Pressure Disorder ??? levothyroxine 50 MCG tablet Indications: Underactive Thyroid Take 1 tablet (50mcg total) by mouth in the morning on Wednesday and Wednesday. ??? nitrofurantoin 50 MG capsule Take 1 capsule (50 mg total) by mouth nightly at bedtime. 30 capsule 2 ??? OMEPRAZOLE 20 MG capsule TAKE 1 CAPSULE(20 MG) BY MOUTH DAILY 90 capsule 0 ??? pravastatin 40 MG tablet Take 1 tablet (40 mg total) by mouth nightly at bedtime. at bedtime. 90 tablet 0 ??? sertraline 100 MG tablet Take 100 mg by mouth every morning. Indications: Depression No facility-administered encounter medications on file as of 11/07/2019. Roxana was seen today for thyroid problem. Diagnoses and all orders for this visit: Type 2 diabetes mellitus with stage 3 chronic kidney disease, without long-term current use of insulin ([facility]) - HEMOGLOBIN, GLYCOSYLATED; Future - VENIPUNC ARM DRAW Hypothyroidism, unspecified type - VENIPUNC ARM DRAW Hyperthyroidism - CBC W/DIFF AUTOMATED; Future - COMPREHENSIVE METABOLIC PANEL; Future Irregular heart rate - CBC W/DIFF AUTOMATED; Future - COMPREHENSIVE METABOLIC PANEL; Future Pt has bradycardia and irregular rhythm. Pt has appt with the car repairer and feel that the bradycardia and irreg. Rhythm maybe the cause the fainting. Pt will be evaluated on Nov 21 If worsens willsee if can be seen sooner. Suggested that pt needs to rest and not push activity. Rest and if has any other issues go to the ER. Check B/P and blood sugars if has another episode. Labs have been drawn at this visit and evaluate pt condition may changes as needed. Pt will return if needed. Routine visit in 3 months. MARTHA PARKER NP 11/07/2019 10:09 PM documented in this encounter Plan of Treatment Not on file documented as of this encounter Goals Goal Patient Goal Type Associated Problems Recent Progress Patient-Stated? Author Improve Home Support System General Laura Akbar, RN Return home with [facility] home health General No Malgorzata Brown, INSURANCE POLICY ISSUE CLERK HOME WITH DAUGHTER General No Laura Cheatham RN documented as of this encounter Procedures Procedure Name Priority Date/Time Associated Diagnosis Comments COLLECTION VENOUS BLOOD VENIPUNCTURE Routine 11/07/2019 2:04 PM CDT Type 2 diabetes mellitus with stage 3 chronic kidney disease, without long-term current use of insulin ([facility]) Hypothyroidism, unspecified type documented in this encounter Results * (ABNORMAL) COMPREHENSIVE METABOLIC PANEL (11/07/2019 2:04 PM CDT) [facility] Signature GLUCOSE 148(H) 70 - 99 MG/DL 11/07/2019 5:34 PM CDT [facility] BUN 16 7 - 18 MG/DL 11/07/2019 5:34 PM CDT [facility] CREATININE S/P/B 0.91 0.55 - 1.02 MG/DL 11/07/2019 5:34 PM CDT [facility] SODIUM S/P/B 144 136 - 145 MMOL/L 11/07/2019 5:34 PM CDT [facility] POTASSIUM S/P/B 3.7 3.5 - 5.1 MMOL/L 11/07/2019 5:34 PM [facility] CHLORIDE S/P/B 106 100 - 108 MMOL/L 11/07/2019 5:34 PM [facility] CO2 29.0 21 - 32 MMOL/L 11/07/2019 5:34 PM [facility] CALCIUM S/P/B 8.8 8.5 - 10.1 MG/DL 11/07/2019 5:34 PM [facility] BILIRUBIN TOTAL S/P/B 0.5 0.2 - 1.2 MG/DL 11/07/2019 5:34 PM [facility] TOTAL PROTEIN S/P/B 6.7 6.4 - 8.2 G/DL 11/07/2019 5:34 PM [facility] ALBUMIN S/P/B 3.8 3.4 - 5.0 G/DL 11/07/2019 5:34 PM [facility] AST 20 15 - 37 U/L 11/07/2019 5:34 PM [facility] ALT 25 14 - 55 U/L 11/07/2019 5:34 PM [facility] ALKALINE PHOSPHATASE S/P/B 91 50 - 136 U/L 11/07/2019 5:34 PM [facility] ANION GAP 9.0 5 - 15 MMOL/L 11/07/2019 5:34 PM [facility] BUN CREATININE RATIO 17.6 6 - 26 11/07/2019 5:34 PM [facility] A/G RATIO 1.3 1.0 - 2.0 RATIO 11/07/2019 5:34 PM [facility] EGFR NON-AFR. AMER. 58(L) >90 ML/MIN/1.7 3 M2 11/07/2019 5:34 PM CDT [facility] EGFR AFR. AMER. 67(L) >90 ML/MIN/1.7 3 M2 11/07/2019 5:34 PM CDT [facility] Comment: NOTE: eGFR is not calculated for patients <18 years of age. This is an estimated GFR (CKD EPI) and should not be used for calculating drug doses. 11/07/2019 2:04 PM CDT us Martha Parker NP LABORATORY Final Result [facility] [address] [place] [id number], * (ABNORMAL) CBC W/DIFF AUTOMATED (11/07/2019 2:04 PM CDT) WBC 5.7 4.4 - 11.0 x10'3/uL 11/07/2019 5:30 PM CDT [facility] RBC 4.34(L) 4.50 - 5.10 x10'6/uL 11/07/2019 5:30 PM CDT [facility] HGB 12.3 12.3 - 15.3 G/DL 11/07/2019 5:30 PM CDT [facility] HCT 38.5 35.9 - 44.6 % 11/07/2019 5:30 PM CDT [facility] MCV 88.7 80.0 - 96.0 FL 11/07/2019 5:30 PM CDT [facility] MCH 28.3 25.3 - 30.9 PG 11/07/2019 5:30 PM CDT [facility] MCHC 31.9 31.0 - 34.1 G/DL 11/07/2019 5:30 PM CDT [facility] RDW 13.7 12.4 - 15.1 % 11/07/2019 5:30 PM CDT [facility] PLT 210 151 - 353 x10'3/uL 11/07/2019 5:30 PM T [facility] MPV 10.8 9.6 - 12.0 FL 11/07/2019 5:30 PM CDT [facility] RBC MORPHOLOGY NORMAL 11/07/2019 5:30 PM T [facility] PLT MORPH. NORMAL 11/07/2019 5:30 PM CDT [facility] WBC MORPHOLOGY NORMAL 11/07/2019 5:30 PM CDT [facility] LYMPHOCYTES % 10.6(L) 15.8 - 45.0 % 11/07/2019 5:30 PM CDT [facility] NEUTROPHILS % 80.4(H) 42.1 - 71.9 % 11/07/2019 5:30 PM CDT [facility] MONOCYTES % 7.5 5.7 - 12.5 % 11/07/2019 5:30 PM CDT [facility] EOSINOPHILS 1.0 0.0 - 5.6 % 11/07/2019 5:30 PM T [facility] BASOPHILS 0.3 0.0 - 1.3 % 11/07/2019 5:30 PM T [facility] ABS. NEUTROPHILS TOTAL 4.60 1.40 - 6.00 x10'3/uL 11/07/2019 5:30 PM T [facility] IMMATURE GRANS % 0.2 0.0 - 0.5 % 11/07/2019 5:30 PM T [facility] ABS. LYMPHOCYTES 0.61(L) 0.80 - 4.70 x10'3/uL 11/07/2019 5:30 PM CDT [facility] 11/07/2019 2:04 PM CDT Martha Parker NP LABORATORY Final Result [facility] [address] [place] [address], [place] [phone] * (ABNORMAL) HEMOGLOBIN, GLYCOSYLATED (11/07/2019 2:04 PM CDT) HGB A1C 5.7(H) <5.7 % 11/07/2019 6:53 PM CDT [facility] Comment: INCREASED RISK OF DIABETES <5.7% ?NON-DIABETES 5.7-6.4% INCREASED RISK FOR FUTURE DIABETES > OR = 6.5 CONSISTENT WITH DIABETES STANDARDS OF MEDICAL CARE IN DIABETES-2010 DIABETES CARE, 33(SUPP 1): S1-S61,2010 11/07/2019 2:04 PM CDT Martha Parker NP LABORATORY Final Result Performing Organization Address City[facility] Co de Phone Number [facility] [address] [place] [address], [place] [phone] documented in this encounter Visit Diagnoses Diagnosis Type 2 diabetes mellitus with stage 3 chronic kidney disease, without long-term current use of insulin ([facility])- Primary Hypothyroidism, unspecified type Hyperthyroidism Thyrotoxicosis without mention of goiter or other cause, without mention of thyrotoxic crisis or storm Irregular heart rate Cardiac dysrhythmia, unspecified documented in this encounter Care Teams Organizational Development Consultant Relationship Specialty Start Date End Date Noemi Barnard MD [address] [id number] PCP - General INTERNAL MEDICINE 08/23/18 03/03/23 Joni Mckeon MD [address] [address] Christopher [place]ound [place] Production Supervisor CARDIOVASCULAR DISEASE 07/04/18 documented as of this encounter
--- OUTSIDE RECORDS SUMMARY | 2024-04-05 00:16 | XMS_ITS | Encounter Summary ---
Author Organization [facility] Address [address] [place] [address]. [place], [place] [address] [place] [address] Care Team Providers Care Superintendent Colliery Name Role Phone Joni Mckeon MD Unavailable [phone] Noemi Barnard MD Primary Care Provider [phone] Reason for Referral * Diagnostic Lab (Routine) - Closed Specialty Diagnoses / Procedures Referred By Eugenie crain Referred To Contact CARDIOLOGY Diagnoses Bradycardia Syncope Procedures [facility] - MOBILE CONTINUOUS TELEMETRY Joni Mckeon MD [address] [address] Phone: tel: fax: Kezia Weeks [address] [address] Phone: tel: fax: Referral ID Status Reason Start Date Expiration Date Visits Re quested Visits Authorized [id number] Closed 11/23/2019 02/03/2020 1 1 Encounter Details Date Type Department Care Team (Late st Contact Info) Description 11/23/2019 Orders Only [facility] at [address] [address] Joni Mckeon MD [address] [address] Social History Tobacco Use Types Packs/Day Years [...] CENTER home health General No Malgorzata Brown, REGISTER OF WILLS HOME WITH DAUGHTER General No Laura Cheatham RN documented as of this encounter Results * HOSPITAL - MOBILE CONTINUOUS TELEMETRY (01/13/2020 11:06 AM CDT) 01/13/2020 11:0 6 AM CDT Narrative ESCRIPTION - 01/15/2020 11:19 AM CDT ENROLLMENT PERIOD: ??12/04/2019 - 01/02/2020 INDICATION: ??Bradycardia. PROCEDURE: ??The patient was monitored electrocardiographically by means of a [employer] BodyGuardian monitor. ??The transmitted recordings were scanned for rate, rhythm and ectopic configuration. FINDINGS: During the monitoring period, there were 26 days, 17 hours and 27 minutes of diagnostic data. ??There is 1 hour and 33 minutes of artifact. ??There were 17 hours and 2 minutes there was no data available. The minimum heart rate was 37 beats per. ??Maximum heart rate 124 beats per minute, average heart rate was 58 beats per minute. ??Underlying rhythm appeared to be sinus rhythm. Supraventricular ectopy: ??There were no episodes of atrial fibrillation, atrial flutter or SVT. There were 3117 PACs. Bradyarrhythmias: ??There were isolated episodes of bradycardia. ??There was one episode which appeared to be approximately a 3-second pause. ?? There were isolated episodes of 2:1 AV block with subsequent bradycardia, associated heart rate in the 40s. There were isolated episodes of 2:1 AV block. Ventricular ectopy: ??There is 1 short episode of ventricular tachycardia, approximately 7 beats. ??There were no other significant ventricular arrhythmias. Symptoms: ??No reported symptoms during the monitoring. CONCLUSIONS: 1. ??Primarily sinus rhythm. 2. ??Isolated episodes of 2:1 AV block with one 3.3 second pause. 3. ??No significant ventricular arrhythmias. 4. ??Would recommend electrophysiology evaluation. Dictated by MD Mira Sauer: ??01/13/2020 11:06 AM #[id number] T: ??01/15/2020 10:12 AM /TC us Joni Mckeon MD CV VASCULAR ORDERABLES Final Re sult ESCRIPTION documented in this encounter Visit Diagnoses Diagnosis Bradycardia- Primary Other specified cardiac dysrhythmias Syncope Syncope and collapse Bradycardia Other specified cardiac dysrhythmias Syncope Syncope and collapse documented in this encounter Care Teams Superintendent Colliery Relationship Specialty Start Date End Date Noemi Barnard MD [address] [place] [facility] [place], [place] [id number] PCP - General INTERNAL MEDICINE 08/23/18 03/03/23 Joni Mckeon MD [address] [place] [address] Christopher Heater Tender CARDIOVASCULAR DISEASE 07/04/18 documented as of this encounter
--- OUTSIDE RECORDS SUMMARY | 2024-04-05 00:16 | XMS_ITS | Encounter Summary ---
Author Organization [facility] Address [address] [place] [address]. [place], [place] [address] [place] [address] Care Team Providers Care Eyelet Punch Operator Name Role Phone Joni Mckeon MD Unavailable [phone] Noemi Barnard MD Primary Care Provider [phone] Encounter Details Date Type Department Care Team (Latest Contact Info) Description 12/01/2019 Travel Social History Tobacco Use Types Packs/Day [...] have Coronavirus / COVID-19? Unable to assess 12/01/2019 10:43 AM CDT documented as of this encounter [...] No Laura Cheatham, RN Return home with [facility] home health General No Malgorzata Brown MSW HOME WITH DAUGHTER General No Laura Cheatham, RN documented as of this encounter Visit Diagnoses Not on filedocumented in this encounter Care Teams Eyelet Punch Operator Relationship Specialty Start Date End Date Noemi Barnard MD [facility]. [address] [address] PCP - General INTERNAL MEDICINE 08/23/18 03/03/23 Joni Mckeon MD [address] [facility]. [facility] [address] [place] [address] Christopher [place] CARDIOVASCULAR DISEASE 07/04/18 documented as of this encounter
--- OUTSIDE RECORDS SUMMARY | 2024-04-05 00:16 | XMS_ITS | Encounter Summary ---
Author Organization [facility] Address [address] [place] [address]. [place] [address] [place] [address] Care Team Providers Care Fun House Attendant Name Role Phone Josep Mckeon MD Unavailable [phone] Elaina Jade MD Primary Care Provider [phone] Reason for Visit * Reason Comments Coronary Artery Disease Hypertension Encounter Details Date Type Department Care Team (Late st Contact Info) Description 11/22/2019 12:00 PM CDT Office Visit [facility] [place] [id number] [place] [phone] Josep Mckeon MD [address] [address] Coronary Artery Disease; Hypertension Social History Tobacco [...] have Coronavirus / COVID-19? No / Unsure 12/14/2019 8:56 AM CDT documented as of this encounter Last Filed Vital Signs Vital Sign Reading Time Taken Comments Blood Pressure 160/70 11/22/2019 11:47 AM CDT Pulse 58 11/22/2019 11:47 AM CDT Temperature - - Respiratory Rate - - Oxygen Saturation - - Inhaled Oxygen Concentration - - Weight 53.5 kg (118 lb) 11/22/2019 11:47 AM CDT Height 160 cm (5' 3 ) 11/22/2019 11:47 AM CDT Body Mass Index 20.9 11/22/2019 11:47 AM CDT documented in this encounter Functional [...] Instructions * Patient Instructions* Treasure Mojica - 11/22/2019 12:00 PM CDT Images from the original note were not included. Patient Education Patient Education Coronary Heart Disease The Basics Written by the doctors and editors at [facility] What is coronary artery disease???--??Coronary artery disease is a condition that puts you at risk for heart attack and other forms of heart disease. In people who have coronary artery disease, the arteries that supply blood to the heart get clogged with fatty deposits (figure 1). Other names for this disease are coronary heart disease or just heart disease. What are the symptoms of coronary artery disease???--??Many people with coronary artery disease have no symptoms. For those who do, the most common symptoms usually happen with exercise. They can include: ?? Pain, pressure, or discomfort in the center of the chest ?? Pain, tingling, or discomfort in other parts of the upper body - This might include the arms, back, neck, jaw, or stomach. ?? Feeling short of breath What are the symptoms of a heart attack???--??The first symptom of coronary artery disease can be aheart attack (figure 2). That's why it is so important to know how to spot a heart attack. The symptoms of a heart attack can include: ?? Pain, pressure, or discomfort in the center of the chest ?? Pain, tingling, or discomfort in other parts of the upper body, including the arms, back, neck, jaw, or stomach ?? Shortness of breath ?? Nausea, vomiting, burping, or heartburn ?? Sweating or having cold, clammy skin ?? A racing or uneven heartbeat ?? Feeling dizzy or lightheaded If these symptoms last more than 10 minutes or they keep coming and going, call for an ambulance (in the [place] and [place], dial 9-1-1) right away. Do not try to get to the hospital on your own. As mentioned above, some people with coronary artery disease have chest pain even when they are nothaving a heart attack. This is most likely to happen when they are walking, going up stairs, or moving around. But if you have chest pain that is new or different than pain you have had before, you should see a doctor right away. Is there a test for coronary artery disease???--??Yes. If your doctor or nurse thinks you might have coronary artery disease, he or she might order blood tests and one or more of these tests: ?? An electrocardiogram ( ECG ) - This test measures the electrical activity in your heart. ?? A stress test - During a stress test, which is also called an exercise test, you might be asked to run or walk on a treadmill while you also have an ECG. Physical activity increases the heart's need for blood. This test helps doctors see if the heart is getting enough blood. If you cannot walk or run, your doctor might do this test by giving you a medicine to make your heart pump faster. ?? An echocardiogram - This test uses sound waves to create an image of your heart as it beats. ?? Cardiac catheterization (also called cardiac cath ) - During this test, the doctor puts a thin tube into a blood vessel in your leg or arm. Then he or she moves the tube up to your heart. Next, the doctor puts a dye that shows up on X- ray into the tube. This part of the test is called coronaryangiography. It can show whether any of the arteries in your heart are clogged. How is coronary artery disease treated???--??The main treatments for coronary artery disease are: ?? Lifestyle changes - Here are some things you can do to reduce your risk of heart attack and : ? Quit smoking, if you smoke. ? Eat lots of fruits, vegetables, and foods with a lot of fiber. Avoid foods that have a lot of sugar. ? Walk or do some form of physically activity on most days of the week. ? Lose weight, if you are overweight. ?? Medicines - The medicines to treat heart disease are very important. Some medicines lower your risk of heart attacks and can help you live longer. But you must take them every day, as directed. Medicines your doctor might prescribe include: ? Medicines called statins, which lower cholesterol ? Medicines to lower blood pressure ? Aspirin or other medicines that help prevent blood clots ? Medicines to treat diabetes People who have chest pain caused by coronary artery disease (called angina ) can also get medicines to relive their pain. These medicines might include nitrates, beta blockers, and others. Some people with coronary artery disease can also have: ?? A stent procedure - During this procedure, the doctor puts a thin plastic tube into the blocked artery, and uses a tiny balloon to open the blockage. Then the doctor leaves a tiny mesh tube calleda stent inside the artery to hold it open. ?? Bypass surgery (also known as coronary artery bypass grafting or CABG) - During bypass surgery, the doctor removes a piece of blood vessel from another part of the body. Then he or she reattaches the blood vessel above and below the area that is clogged. This re-routes blood around the clog and allows it to get to the part of the heart that was not getting blood (figure 3). If your doctor recommends stenting or bypass surgery, ask these questions: ?? What are the benefits of this procedure for me? Will the procedure help me live longer? Will it reduce my chance of having a heart attack? Will I feel better if I have this procedure? ?? What are the risks of the procedure? ?? What happens if I don't have this procedure? All topics are updated as new evidence becomes available and our peer review process is complete. This topic retrieved from [employer] on: Sep 28, 2019. Topic 98336 Version 22.0 Release: 28.3.2 - C28.250 ?2019??[employer] and/or its affiliates.??All rights reserved. figure 1: Coronary heart disease In people with coronary heart disease, the coronary arteries get clogged with fatty deposits calledplaques. Graphic 29442 Version 5.0 figure 2: Heart attack symptoms This picture shows the main symptoms of a heart attack. People who are having a heart attack often have only some of these symptoms. The pain, pressure, and discomfort caused by a heart attack mostlyaffect the left side of the body (shown in darker red) but can also affect the right. If you think you are having a heart attack, call 9-1-1 for an ambulance. Do not try to get yourself to the hospital. Graphic 67984 Version 1.0 figure 3: Coronary artery bypass graft surgery During coronary artery bypass surgery, the surgeon removes a piece of blood vessel from the leg, chest, arm, or belly. Then the surgeon uses that piece of blood vessel (called a graft ) to reroute blood around the blocked artery. The surgery is called bypass surgery because it bypasses the blockage. Some people have more than 1 blocked artery bypassed. In this picture, the graft came from a vein in the leg called the saphenous vein. But grafts can come from other places, too. Graphic 68857 Version 5.0 Consumer Information Use and Disclaimer This information [...] that is right for you.The use of [employer] content is governed by the [employer] Terms of Use. ??2020 [employer]. All rights reserved. Copyright ?2020??[employer] and/or its affiliates.??All rights reserved. documented in this encounter Progress Notes * Josep Mckeon MD - 11/22/2019 12:00 PM CDT REASON FOR FOLLOWUP: Coronary artery disease. HISTORY OF PRESENT ILLNESS: This is an 84-year-old woman who is known to me. Patient has a history of intermittent palpitations. She had an abnormal ECG. She has had problems with recurrent urinary tract infections. Patient overall has been doing relatively well. She did have one syncopal episode recently. Patient was noted to be bradycardic afterwards. 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 She has had no more syncope, although in discussion with the patient's daughter, she has had some problems with fatigue and weakness. Patient has no other significant complaints. Patient's daughter does note that she has had some issues with worsening of underlying dementia. IMPRESSION AND RECOMMENDATION: Syncope. Patient has abnormal ECG. She is at risk for development of significant bradyarrhythmia. For now, I am going to order a 30-day event monitor. I will do a video visit with Dr. Mcnulty the middleof December to review the results. I discussed with daughter if she has another episode, then she needs to go to the emergency room. I will see her back in February or sooner as needed. Medications: Current Outpatient Medications: ??? amLODIPine 5 [...] and Wednesday., Disp: 30 tablet, Rfl: ??? nitrofurantoin 50 MG capsule, Take [...] new or significant memory loss. Filed Vitals: 11/22/19 1147 BP: (!) 160/70 Pulse: 58 Weight: 53.5 kg (118 lb) Height: 5' 3 (1.6 m) Body mass index is 20.9 kg/m??. Physical Exam Constitutional: No distress. HENT: [...] sound and No murmur. Cardiovascular Comments: Diagnoses/Impression: 1. Bradycardia ELECTROCARDIOGRAM (NON MIDMARK ACQUIRED) 2. Syncope ELECTROCARDIOGRAM (NON MIDMARK ACQUIRED) Referring Provider: No ref. provider found PCP: ELAINA JADE MD * Josep Mckeon MD - 11/22/2019 12:00 AM CDT documented in this encounter Plan of Treatment Not on file documented as of this encounter Goals Goal Patient Goal Type Associated Problems Recent Progress Patient-Stated? Author Improve Home Support System General No Laura Cheatham, RN Return home with [facility] home health General No Malgorzata Brown LEGAL TECHNICIAN HOME WITH DAUGHTER General No Laura Cheatham RN documented as of this encounter Procedures Procedure Name Priority Date/Time Associated Diagnosis Comments ELECTROCARDIOGRAM (NON MIDMARK ACQUIRED) Routine 11/22/2019 12:37 PM CDT Bradycardia Syncope documented in this encounter Results * ELECTROCARDIOGRAM (11/22/2019 12:37 PM CDT) 11/22/2019 12:3 7 PM CDT Narrative [facility] - 11/28/2019 1:15 PM CDT ?[facility], [facility] ? Test Date: ?2019-11-22 Pat Name: ? AVIVA IRTCHIE ?Department: ? Room: ? Gender: ? Female ? Shoulder Pad Molder: ?? kd : ?1935 ? Requested By: JOSEP MCKEON Order Number: [id number] ?Reading MD: ?? Chhaya Mg ? Measurements Intervals ?[place] ? Rate: ? 55 ? P: ?36 NC: ? 229 ?QRS: ?7 QRSD: ? 140 ?T: ?-2 QT: ? 459 ? QTc: ?440 ? Interpretive Statements SINUS BRADYCARDIA WITH SINUS ARRHYTHMIA WITH FIRST DEGREE AV BLOCK INDETERMINATE AXIS RIGHT BUNDLE BRANCH BLOCK Since prior tracing, no significant change Procedure Note Chhaya Mg MD - 11/28/2019 [facility] Test Date: 2019-11-22 Pat Name: AVIVA ERMA Department: Room: Gender: Female Shoulder Pad Molder: nanette : 1935 Requested By: JOSEP MCKEON Order Number: [id number] Reading MD: Chhaya Mg Measurements Intervals [place] Rate: 55 P: 36 NC: 229 QRS: 7 QRSD: 140 T: -2 QT: 459 QTc: 440 Interpretive Statements SINUS BRADYCARDIA WITH SINUS ARRHYTHMIA WITH FIRST DEGREE AV BLOCK INDETERMINATE AXIS RIGHT BUNDLE BRANCH BLOCK Since prior tracing, no significant change us Josep Mckeon MD PROCEDURES-ORDERABLE NO CHARGE Final Result [facility] documented in this encounter Visit Diagnoses Diagnosis Bradycardia- Primary Other specified cardiac dysrhythmias Syncope Syncope and collapse documented in this encounter Care Teams Fun House Attendant Relationship Specialty Start Date End Date Elaina Jade MD [address] [facility] [address] [place] [address] [id number] PCP - General INTERNAL MEDICINE 08/23/18 03/03/23 Josep Mckeon MD [address] [facility] [place] [address] [employer] Message Router CARDIOVASCULAR DISEASE 07/04/18 documented as of this encounter
--- OUTSIDE RECORDS SUMMARY | 2024-04-05 00:16 | XMS_ITS | Encounter Summary ---
Author Organization [facility] Address [address] [place] [address]. [place] [address] [place] [address] Care Team Providers Care Marine Steam Fitter Name Role Phone Joni Mckeon MD Unavailable [phone] Noemi Jade MD Primary Care Provider [phone] Reason for Visit * Reason Comments Syncope Encounter Details Date Type Department Care Team (Late st Contact Info) Description 01/01/2020 11:30 AM CDT Office Visit [facility], [facility] [address] [place] [address] Cruziot Mcnulty MD [facility]. [facility] [address] [place] [address] Syncope Social History Tobacco Use Types Packs/Day [...] Sign Reading Time Taken Comments Blood Pressure 153/67 01/01/2020 11:34 AM CDT Pulse 68 01/01/2020 11:34 AM CDT Temperature - - Respiratory Rate - - Oxygen Saturation - - Inhaled Oxygen Concentration - - Weight 51.3 kg (113 lb) 01/01/2020 11:34 AM CDT Height 160 cm (5' 3 ) 01/01/2020 11:34 AM CDT Body Mass Index 20.02 01/01/2020 11:34 AM CDT documented in this encounter Functional [...] Progress Notes * Cruzito Mcnulty MD - 01/01/2020 11:30 AM CDT I introduced and identified myself, received verbal consent from the patient to proceed with this video visit and made the patient aware that the same confidentiality and management information systems director practices apply. The patient joined the video visit from Home. I completed the virtual visit from Office. The following clinical staff helped with this visit MA: Sam Childers. Total Time Spent in Minutes: 15 Reason for Visit: Syncope History of Present Illness: 84-year-old female with a history of syncope, rbbb, first degree avb, LAFB. She has been having increased fatigue recently. No linda syncope. She is finishing up a 30 day event monitor. She denies chest pain, shortness of breath, palpitations, syncope or presyncope. She denies PND, orthopnea, LE edema, cough, hemoptysis. Recommendations and Plan: Will await monitor. Likely want to wait till monitor is back. We discussed expectant management of symptomatic bradycardia with dual chamber ppm. We discussed risks/benefits/alternatives/and side effects of device implantation including but not limited to: infection, bleeding, vascular access injury, pneumothorax, stroke, cardiac perforation. We will consider pacer as nee ded. Data reviewed: ECG RBBB, LAFB, LAD. Medications: Current Outpatient Medications: ??? amLODIPine 5 [...] and new or significant memory loss. Vitals: 01/01/20 1134 BP: (!) 153/67 Pulse: 68 Body mass index is 20.02 kg/m??. Physical Exam Constitutional: No distress. HENT: Teeth/gums normal. No nasal discharge. Eyes: Pupils equal, round, and reactive to light. Conjunctivae normal. Neck: Normal range of motion. Pulmonary: Abdomen: Neurological: Alert. Oriented x 3. Skin: Musculoskeletal: Cardiovascular: Rate: PMI: Pulses: Heart Sounds: Cardiovascular Comments: Tele exam Diagnoses/Impression: No diagnosis found. Referring Provider: No ref. provider found PCP: NOEMI JADE MD documented in this encounter Plan of Treatment Not on file documented as of this encounter Goals Goal Patient Goal Type Associated Problems Recent Progress Patient-Stated? 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 [address] [address] PCP - General INTERNAL MEDICINE 08/23/18 03/03/23 Joni Mckeon MD [facility]. [address] [address] Christopher Mat Repairer CARDIOVASCULAR DISEASE 07/04/18 documented as of this encounter
--- OUTSIDE RECORDS SUMMARY | 2024-04-05 00:16 | XMS_ITS | Encounter Summary ---
Author Organization [facility] Address [address] [place] [address]. [place] [address] [place] [address] Care Team Providers Care Director Transportation Name Role Phone Joni Mckeon MD Unavailable [phone] Noemi Jade MD Primary Care Provider [phone] Reason for Visit * Reason Onset Date Comments Results 10/24/2019 Encounter Details Date Type Department Care Team (Late st Contact Info) Description 10/24/2019 Telephone [facility] Family & Internal Medicine [facility] [address] [place] [address] [place] Jade [place] [id number] [place] [address] Results Social History Tobacco Use Types Packs/Day [...] have Coronavirus / COVID-19? No / Unsure 10/23/2019 3:18 PM CDT documented as of this encounter [...] Progress Notes * Nuha Ruiz RN - 10/25/2019 11:33 AM CDT Spoke to Roxana & she said that she has a refill, informed that for next refill she will needto call office since Martha has never filled that med before, v/u. * Noemi Beltran MA - 10/24/2019 3:25 PM CDT lmtcb * Nancie Mason MA - 10/24/2019 2:54 PM CDT I relayed message to pt. ----- Message from BAILEY Miller sent at 10/24/2019 1:22 PM CDT ----- Please let patient know that the ultrasound of her kidneys showed all of the urine to be draining appropriately. No stones or abnormal masses. * Nuha Ruiz RN - 10/24/2019 12:06 PM CDT No voicemail set up Looks like cardio filled in past, Martha never has. * Ana Laura Rueda - 10/24/2019 9:04 AM CDT Medication and strength: Benazepril 20mg [facility]: [facility] Call back #: [phone] Last office visit at this office: Last visit with NOEMI JADE in INTERNAL MEDICINE was on: 01/17/2019 in [facility] Future appointment scheduled: Future Appointments Date Time Provider Department Center 11/01/2019 1:00 PM [facility] Han [facility] 11[facility]07/2019 1:40 PM [facility] Ru[facility] 11/22/2019 12:00 PM Joni Mckeon MD [facility] documented in this encounter Plan of Treatment Not on file documented as of this encounter Goals Goal Patient Goal Type Associated Problems Recent Progress Patient-Stated? Author Improve Home Support System General No Laura Cheatham, RN Return home with [facility] home health General No Malgorzata Brown, PET SUPPLIES SALESPERSON HOME WITH DAUGHTER General No Laura Cheatham RN documented as of this encounter Visit Diagnoses Not on filedocumented in this encounter Care Teams Director Transportation Relationship Specialty Start Date End Date Noemi Jade MD Three [facility]. [address] [address] PCP - General INTERNAL MEDICINE 08/23/18 03/03/[address] [facility]. [address] [address] [employer] Rig Operator CARDIOVASCULAR DISEASE 07/04/18 documented as of this encounter
--- OUTSIDE RECORDS SUMMARY | 2024-04-05 00:16 | XMS_ITS | Encounter Summary ---
Author Organization [facility] Address [facility] [place] [address] [place] [address] Care Team Providers Care Financial Coach Name Role Phone Joni Mckeon MD Unavailable [phone] Noemi Barnard MD Primary Care Provider [phone] Reason for Visit * Reason Onset Date Comments Appointment Request 11/23/2019 Encounter Details Date Type Department Care Team (Late st Contact Info) Description 11/23/2019 Telephone [facility] Multispecialty Care - [facility] [address] [facility], [address] [place] [address] Giovany Miller MD [address] [place] [address] [place] [address] Appointment Request Social History Tobacco Use Types Packs/Day [...] documented in this encounter Progress Notes * Olivia Cuello - 11/23/2019 9:09 AM CDT Pt's daughter, Krystina called in. She stated pt had surgery on bladder a little over a month ago and Dr. Meyers told her he would like to see her in a month. Krystina state she has not heard from anyone. Pt has one more refill left and been on a special diet since. Please follow up w Krystina @ [phone] documented in this encounter Plan of Treatment Not on file documented as of this encounter Goals Goal Patient Goal Type Associated Problems Recent Progress Patient-Stated? Author Improve Home Support System General No Laura Cheatham, RN Return home with [facility] home health General No Malgorzata Brown, RELAY MAN HOME WITH DAUGHTER General No Laura Cheatham, RN documented as of this encounter Visit Diagnoses Not on filedocumented in this encounter Care Teams Financial Coach Relationship Specialty Start Date End Date Noemi Barnard MD Three [facility]. [address] [address] PCP - General INTERNAL MEDICINE 08/23/18 03/03/23 Joni Mckeon MD Three [facility]. [address] [address] [facility] Nurse Practitioner CARDIOVASCULAR DISEASE 07/04/18 documented as of this encounter
--- OUTSIDE RECORDS SUMMARY | 2024-04-05 00:16 | XMS_ITS | Encounter Summary ---
Author Organization [facility] Address [facility] [place] [address] [place] [address] Care Team Providers Care Cad Developer Name Role Phone Joni Mckeon MD Unavailable [phone] Noemi Barnard MD Primary Care Provider [phone] Reason for Visit * Auth/Cert Specialty Diagnoses / Procedures Referred By Eugenie t Referred To Contact Diagnoses N39.0 Procedures CYSTOSCOPY FLEXIBLE Referral ID Status Reason Start Date Expiration Date Visits Re quested Visits Authorized [id number] 1 1 Encounter Details Date Type Department Care Team (Late st Contact Info) Description 10/19/2019 2:32 PM CDT - 10/19/2019 2:47 PM CDT Surgery [facility] Surgery [address] [place] [address] Clemencia Miller MD [address] [place] [address] [place] [id number] CYSTOSCOPY FLEXIBLE Surgery Details Date/Time Status Location OR Service Patient Class Case Class Case Type Trauma Case? 10/19/2019 2:32 PM Posted [facility] OR Endo Urology Short Stay/Outpati ent Surgery No Panel 1 Procedure LRB Anes Op Region Wound Class Comments CYSTOSCOPY FLEXIBLE N/A Local Bladder Clean Cont aminated Surgeon Surgeon Role Service Panel Clemencia Miller MD Primary Urology 1 Special Needs 1300 documented in this encounter Social History Tobacco [...] Sign Reading Time Taken Comments Blood Pressure 170/60 10/19/2019 2:10 PM CDT Pulse 69 10/19/2019 2:10 PM CDT Temperature 36.6 ??C (97.9 ??F) 10/19/2019 1:00 PM CD T Respiratory Rate 20 10/19/2019 2:10 PM CDT Oxygen Saturation 100% 10/19/2019 2:10 PM CDT Inhaled Oxygen Concentration - - Weight 54.4 kg (120 lb) 10/19/2019 1:00 PM CDT Height 160 cm (5' 3 ) 10/19/2019 1:00 PM CDT Body Mass Index 21.26 10/19/2019 1:00 PM CDT documented in this encounter Functional [...] this encounter Discharge Instructions * Discharge Instructions* Nubia Thurman RN - 10/19/2019 2:50 PM CDT Follow-up with Dr Miller 1-2 months, Dr Miller's office will call you with a appointment Decrease ascitic foods, decrease caffeine, alcohol intake, avoid spicy foods, * Attachments The following attachments cannot be sent through Care Everywhere. * Cystoscopy Discharge Instructions ([place]ese) * Kidney Stone Diet ([place]ese) documented in this encounter Medications at Time [...] 09/20/2019 0 documented as of this encounter H&P Notes * Clemencia Miller MD - 10/19/2019 1:03 PM CDT HISTORY AND PHYSICAL INTERVAL NOTE: I have [...] during recuperation were discussed with the patient/family/personal insurance account representative. Reasonable alternatives to the patient's proposed procedure/surgery including benefits, risks, and side effects related to the alternatives and the risks related to not receiving the proposed care were also discussed with the patient/family/personal insurance account representative. Questions were answered and the patient/family/personal insurance account representative verbalized understanding and desires to proceed. Source Note - BAILEY Miller - 10/03/2019 10:00 AM CDT Urology Consult Referring Provider: PCP: MD Roxana WILLIS is an 84-year-old female here for Chief Complaint Patient presents with ??? New Patient Recurrent uti HPI: 84-year-old white female presents for evaluation of recurrent UTIs. Presents with her daughter whom she lives with. History. Reports 2 hospitalizations within the past 1 year for urinary sepsis. Most recent UTI in August of this year. Symptoms manifest typically with dysuria dark urine. Currently shereports dysuria at the end of her void and vaginal discomfort. Reports frequent urination though she cannot quantitate this. Reports urgency with associated incontinence for which she is wearing depends. Denies leakage with things like coughing sneezing and laughing. Reports a bladder lift greater than 25 years ago. Reports some hesitancy and straining to feel she is empty. Nocturia x2-3. Reportschronic lower back pain which increases with activity and intermittent flank pain bilaterally. She has chronic diarrhea. Denies constipation. Denies recent fever or chills. History of diverticulitis.Denies pneumaturia Past Medical History: Diagnosis Date ??? Bladder infection ??? Cancer ([facility]) Past cancer survivor. ??? Diabetes ([facility]) ??? GERD (gastroesophageal reflux disease) ??? Hyperlipidemia ??? Hypertension ??? Hypothyroidism ??? Insomnia ??? Sepsis (CMS/HCC) ??? Vitamin D deficiency ??? Weight loss Past Surgical History: Procedure Laterality Date ??? ABDOMINAL SURGERY ??? BREAST REDUCTION BILATERAL ??? CHOLECYSTECTOMY ??? COLONOSCOPY ??? HEMORRHOIDECTOMY ??? HYSTERECTOMY ??? INNER EAR SURGERY PROC UNLISTED ??? REPAIR ROTATOR CUFF,ACUTE Current Outpatient Medications Medication Sig Dispense Refill ??? amLODIPine 5 [...] the morning on Wednesday and Wednesday. ??? OMEPRAZOLE 20 MG capsule TAKE 1 CAPSULE(20 MG) BY MOUTH DAILY 90 capsule 0 ??? pravastatin 40 MG tablet Take 1 tablet (40 mg total) by mouth nightly at bedtime. at bedtime. 90 tablet 0 ??? sertraline 100 MG tablet Take 100 mg by mouth every morning. Indications: Depression ??? trazodone 50 MG tablet Take 50 mg by mouth nightly at bedtime. Indications: Disturbed Sleep No current facility-administered medications for this visit. Allergies: Allergies Allergen Reactions ??? Septra [Sulfamethoxazole-Trimethoprim] Rash Social History Tobacco Use ??? Smoking status: Never Smoker ??? Smokeless tobacco: Never Used Substance Use Topics ??? Alcohol use: No Frequency: Never Family History Problem Relation Name Age of Onset ??? Diabetes Other ??? Breast Cancer Other ??? Other (cardiac disorder) Other ??? Heart Attack Mother Review of Systems Constitutional: Negative. Respiratory: Negative. Cardiovascular: Negative. Gastrointestinal: Positive for diarrhea. Genitourinary: Positive for dysuria, flank pain, frequency and urgency. Negative for hematuria. Musculoskeletal: Positive for back pain. Physical Exam: Blood pressure (!) 180/88, temperature 98.2 ??F (36.8 ??C), height 5' 3 (1.6 m), weight 54.7 kg (120 lb 8 oz), not currently . Physical Exam Constitutional: She is oriented to person, place, and time. She appears well- developed and well-nourished. Pulmonary/Chest: Effort normal. Abdominal: Soft. She exhibits no distension. There is no tenderness. Neurological: She is alert and oriented to person, place, and time. Skin: Skin is warm and dry. WBC Date Value Ref Range Status 09/05/2019 3.9 (L) 4.4 - 11.0 x10'3/uL Final HGB Date Value Ref Range Status 09/05/2019 11.2 (L) 12.3 - 15.3 G/DL Final PLT Date Value Ref Range Status 09/05/2019 157 151 - 353 x10'3/uL Final SODIUM Date Value Ref Range Status 09/05/2019 140 136 - 145 MMOL/L Final POTASSIUM Date Value Ref Range Status 09/05/2019 3.9 3.5 - 5.1 MMOL/L Final CHLORIDE S/P/B Date Value Ref Range Status 09/05/2019 105 100 - 108 MMOL/L Final CO2 Date Value Ref Range Status 09/05/2019 28.5 21 - 32 MMOL/L Final ANION GAP Date Value Ref Range Status 09/05/2019 6.5 5 - 15 MMOL/L Final BUN Date Value Ref Range Status 09/05/2019 14 7 - 18 MG/DL Final CREATININE S/P/B Date Value Ref Range Status 09/05/2019 1.13 (H) 0.55 - 1.02 MG/DL Final BUN CREATININE RATIO Date Value Ref Range Status 09/05/2019 12.4 6 - 26 Final eGFR Non-Afr. Amer. Date Value Ref Range Status 09/05/2019 45 (L) >90 ML/MIN/1.73 M2 Final eGFR Afr. Amer. Date Value Ref Range Status 09/05/2019 52 (L) >90 ML/MIN/1.73 M2 Final Comment: NOTE: eGFR is not calculated for patients <18 years of age. This is an estimated GFR (CKD EPI) and should not be used for calculating drug doses. GLUCOSE Date Value Ref Range Status 09/05/2019 132 (H) 70 - 99 MG/DL Final CALCIUM Date Value Ref Range Status 09/05/2019 8.9 8.5 - 10.1 MG/DL Final TOTAL PROTEIN S/P/B Date Value Ref Range Status 08/23/2019 7.0 6.4 - 8.2 G/DL Final ALBUMIN S/P/B Date Value Ref Range Status 08/23/2019 4.1 3.4 - 5.0 G/DL Final BILIRUBIN TOTAL S/P/B Date Value Ref Range Status 08/23/2019 0.4 0.2 - 1.2 MG/DL Final ALKALINE PHOSPHATASE S/P/B Date Value Ref Range Status 08/23/2019 83 50 - 136 U/L Final AST Date Value Ref Range Status 08/23/2019 33 15 - 37 U/L Final ALT Date Value Ref Range Status 08/23/2019 53 14 - 55 U/L Final Results for orders placed or performed during the hospital encounter of 07/30/19 URINALYSIS, AUTO, COMPLETE Result Value Ref Range COLOR (U) YELLOW TRANSPARENCY HAZY Specific [place] (U) 1.015 1.000 - 1.030 U PH 5.5 5.0 - 9.0 LEUKOCYTE ESTERASE 1+ (A) NEGATIVE NITRITES NEGATIVE NEGATIVE PROTEIN (U) NEGATIVE NEGATIVE URINE GLUCOSE NEGATIVE NEGATIVE U KETONES TRACE (A) NEGATIVE BILIRUBIN (U) NEGATIVE NEGATIVE BLOOD NEGATIVE NEGATIVE WBC/HPF 5-10 0 - 5 /HPF RBC/HPF 0-5 0 - 5 /HPF EPI/HPF FEW /HPF URINE, OTHER CASTS HYALINE /LPF BACTERIA (URINE) FEW /HPF No results found for: PSA Imaging: IMAGING STUDIES: CT ABD+PEL WO CON DATE: 07/03/2019 2:29 PM CLINICAL HISTORY: Abd pain, fever, abscess suspected . Lower abdominal pain. History of diverticulitis. ?? IMPRESSION: 1. Routine CT of the abdomen and pelvis without contrast. Comparison 11/21/2017. Radiation dose reduction technique was utilized. 2. Exam is positive for mild mucosal thickening with very minor adjacent fatty infiltration in the distal descending colon. Adjacent diverticuli. Most likely mild diverticulitis versus focal colitis. Proximal colon with mild stool without obstruction. Very small amount of free fluid in the pelvis without abscess. No free air. 3. Numerous sigmoid diverticuli without inflammation. Hysterectomy. No adnexal lesions. No renal calculi or hydronephrosis. Cholecystectomy. 4. Mild fatty infiltration of the liver without mass. All other visualized noncontrast visceral structures are within normal limits.. Stable large duodenal diverticuli.. Stable soft tissue nodule which is most likely benign along the lateral mid right abdomen seen on image 59 of 162 and measuring 1.5 cm. May be scar. 5. No bowel obstruction. Atherosclerotic normal-sized aorta. No pathologic lymphadenopathy. 6. Lung bases with mild scar. No infiltrate or effusion. Moderately advanced atherosclerotic coronary calcifications.. Degenerative change in lumbar spine. Stable 80% compression deformity of L1 without significant retropulsion.. Osteopenia. Interpreted By: Maren Granda, 07/03/2019 3:03 PM Assessment & Plan: No orders of the defined types were placed in this encounter. 1. Recurrent UTI Renal ultrasound. Return for cystoscopy. Urine will be sent for culture today. NINA Miller- documented in this encounter OR Notes * Op Note - Clemencia Miller MD - 10/19/2019 2:20 PM CDT PRE-PROCEDURE DIAGNOSIS: recurrent uti, urge incontinence POST-PROCEDURE DIAGNOSIS: recurrent uti, urge incontinence SURGEON: CLEMENCIA MILLER MD COMPLICATIONS: None. SPECIMEN: None. ANESTHESIA: Lidocaine jelly. PROCEDURE: Flexible Cystoscopy. INDICATIONS: Roxana Ch is here for evaluation of recurrent uti, urge incontinence. Informed consent was obtained prior to the procedure, including but not limited to, the risk of bleeding, infection, injury to the surrounding tissue, and potential for repeat procedure and repeat surgery. OPERATIVE DESCRIPTION: Roxana was placed in the lithotomy position. She was prepped and draped sterilely. I passed a flexible cystoscope through the urethra and into the bladder. The bladder was non-mildly trabeculated, of normal capacity. The urolithelium appeared healthy with no lesions, tumorsor stones seen. The ureteral orifices were easily identified. The left orifice was patulous. There was no bloody efflux appreciated from either ureteral orifice. I retroflexed the scope and looked atthe bladder outlet and saw no abnormal lesions. The bladder neck was open, and mild inflammation was noted at the bladder neck.. The urethra was otherwise normal in appearance. I removed the cystoscope. The patient tolerated the procedure well. CLEMENCIA MILLER MD documented in this encounter Plan of Treatment Not on file documented as of this encounter Goals Goal Patient Goal Type Associated Problems Recent Progress Patient-Stated? Author Improve Home Support System General No Laura Cheatham, RN Return home with [facility] home health General No Malgorzata Brown, AMANDA HOME WITH DAUGHTER General No Laura Cheatham, RN documented as of this encounter Procedures Procedure Name Priority Date/Time Associated Diagnosis Comments CYSTOSCOPY FLEXIBLE 10/19/2019 2 :00 PM CDT N39.0 Special Needs 1300 documented in this encounter Visit Diagnoses Not on filedocumented in this encounter Administered Medications Inactive Administered Medications - up to 3 most recent administrations Medication Order MAR Action Action Date Dose Rate Site cephALEXin (KEFLEX) capsule 500 mg 500 mg, Oral, Once, 1 dose, On Veronica 10/19/19 at 1330Indications:UTI symptoms Given 10/19/2019 1:11 PM CDT 500 mg lidocaine 2 % URO-JET jelly As needed, Starting on Veronica 10/19/19 at 1407, Until Veronica 10/19/19 at 1409, Intra-Op Given 10/19/2019 2:07 PM CDT 1 Application. documented in this encounter Active and Recently Administered Medications Times are shown in CDT. Scheduled Medication Order 10/17/2019 10/18/2019 10/19/2019 cephALEXin (KEFLEX) capsule 500 mg (COMPLETED) 500 mg, Oral, Once, 1 dose, On Veronica 10/19/19 at 1330 1311 (Given - Provid er: Nubia Thurman RN) PRN Medication Order 10/17/2019 10/18/2019 10/19/2019 lidocaine 2 % URO-JET jelly (CANCELED) As needed, Starting on Veronica 10/19/19 at 1407, Until Veronica 10/19/19 at 1409, Intra-Op 1407 (Given - Provid er: Clemencia Miller MD) documented in this encounter Care Teams Cad Developer Relationship Specialty Start Date End Date Noemi Barnard MD [facility]. [address] [address] PCP - General INTERNAL MEDICINE 08/23/18 03/03/23 Joni Mckeon MD [facility]. [address] [address] [facility] CARDIOVASCULAR DISEASE 07/04/18 documented as of this encounter
--- OUTSIDE RECORDS SUMMARY | 2024-04-05 00:16 | XMS_ITS | Encounter Summary ---
Author Organization [facility] Address [address] [place] [address]. [place], [place] [address] [place] [address] Care Team Providers Care Nanotechnology Technician Name Role Phone Joni Mckeon MD Unavailable [phone] Noemi Barnard MD Primary Care Provider [phone] Encounter Details Date Type Department Care Team (Latest Contact Info) Description 10/23/2019 Travel Social History Tobacco Use Types Packs/Day [...] on filedocumented in this encounter Care Teams Nanotechnology Technician Relationship Specialty Start Date End Date Noemi Barnard MD [facility]. [address] [address] PCP - General INTERNAL MEDICINE 08/23/18 03/03/23 Joni Mckeon MD Three [facility]. [facility] [address] [place] [address] Christopher Director Building CARDIOVASCULAR DISEASE 07/04/18 documented as of this encounter
--- OUTSIDE RECORDS SUMMARY | 2024-04-05 00:16 | XMS_ITS | Encounter Summary ---
Author Organization [facility] Address [address] [place] [address]. [place], [place] [address] [place] [address] Care Team Providers Care English And Reading Instructor Name Role Phone Joni Mckeon MD Unavailable [phone] Noemi Barnard MD Primary Care Provider [phone] Encounter Details Date Type Department Care Team (Latest Contact Info) Description 11/28/2019 Travel Social History Tobacco Use Types Packs/Day [...] have Coronavirus / COVID-19? No / Unsure 11/28/2019 2:15 PM CDT documented as of this encounter [...] No Laura Cheatham, RN Return home with [facility] home health General No Malgorzata Brown MSW HOME WITH DAUGHTER General No Laura Cheatham, RN documented as of this encounter Visit Diagnoses Not on filedocumented in this encounter Care Teams English And Reading Instructor Relationship Specialty Start Date End Date Noemi Barnard MD Three [facility]. [address] [address] PCP - General INTERNAL MEDICINE 08/23/18 03/03/23 Joni Mckeon MD Three [facility]. [facility] [address] [place] [address] Christopher Field Representative/Health Education CARDIOVASCULAR DISEASE 07/04/18 documented as of this encounter
--- OUTSIDE RECORDS SUMMARY | 2024-04-05 00:16 | XMS_ITS | Encounter Summary ---
Author Organization [facility] Address [address] [place] [address]. [place], [place] [address] [place] [address] Care Team Providers Care Wood Mechanist Name Role Phone Joni Mckeon MD Unavailable [phone] Noemi Barnard MD Primary Care Provider [phone] Encounter Details Date Type Department Care Team (Latest Contact Info) Description 10/19/2019 Travel Social History Tobacco Use Types Packs/Day [...] [facility] [place] [facility] General No Malgorzata Brown MSW HOME WITH DAUGHTER General No Laura Cheatham, RN documented as of this encounter Visit Diagnoses Not on filedocumented in this encounter Care Teams Wood Mechanist Relationship Specialty Start Date End Date Noemi Barnard MD Three [facility]. [address] [address] PCP - General INTERNAL MEDICINE 08/23/18 03/03/23 Joni Mckeon MD Three [facility]. [facility] [address] [place] [address] Christopher Jinriksha Driver CARDIOVASCULAR DISEASE 07/04/18 documented as of this encounter
--- OUTSIDE RECORDS SUMMARY | 2024-04-05 00:16 | XMS_ITS | Encounter Summary ---
Author Organization [facility] Address [address] [place] [address]. [place] [address] [place] [address] Care Team Providers Care Cardiology Clinical Nurse Specialist Name Role Phone Joni Mckeon MD Unavailable [phone] Noemi Barnard MD Primary Care Provider [phone] Reason for Visit * Reason Comments Follow Up Post Cystoscopy Encounter Details Date Type Department Care Team (Late st Contact Info) Description 12/14/2019 9:20 AM CDT Office Visit [facility] [id number] [place] [address] Clemencia Milelr MD [address] [place] [address] ARAMIS GHOSH [id number] Follow Up (Post Cystoscopy) Social History Tobacco Use Types Packs/Day Years [...] Sign Reading Time Taken Comments Blood Pressure 132/60 12/14/2019 8:58 AM CDT Pulse 60 12/14/2019 8:58 AM CDT Temperature - - Respiratory Rate - - Oxygen Saturation - - Inhaled Oxygen Concentration - - Weight 53.5 kg (118 lb) 12/14/2019 8:58 AM CDT Height 160 cm (5' 3 ) 12/14/2019 8:58 AM CDT Body Mass Index 20.9 12/14/2019 8:58 AM CDT documented in this encounter Functional [...] Progress Notes * Clemencia Miller MD - 12/14/2019 9:20 AM CDT Roxana Ch is an 84-year-old female, presenting for follow-up for her history of overactive bladder with urge type urinary incontinence as well as recurrent UTI, requiring multiple hospitalizations in the past. She is currently taking prophylactic dose of nitrofurantoin, and has not had a breakthrough UTI. She has been trying to avoid lower urinary tract irritants and stimulants, but continues to void frequently and with urgency. Cystoscopy in October 2019 showed a mildly trabeculated bladder, with mild inflammation. She denies dysuria or hematuria, abdominal or pelvic pain. She denies fever chills. She has been working on improving her water intake, as well as double voiding. Bowel function is normal. She has lost some weight, her family has been having difficulty getting her to take in enough calories. PMH, PSH, SH, FH, Meds reviewed, no changes Blood pressure 132/60, pulse 60, height 5' 3 (1.6 m), weight 53.5 kg (118 lb). Physical Exam Constitutional: She is oriented to person, place, and time. Thin, elderly female HENT: Head: Normocephalic and atraumatic. Eyes: Conjunctivae and EOM are normal. Neck: Normal range of motion. No tracheal deviation present. No thyromegaly present. Cardiovascular: Normal rate. Pulmonary/Chest: Effort normal. No respiratory distress. Holter monitor in place Abdominal: Soft. She exhibits no distension. Musculoskeletal: Normal range of motion. Neurological: She is alert and oriented to person, place, and time. No cranial nerve deficit. Skin: Skin is warm and dry. Psychiatric: She has a normal mood and affect. Her behavior is normal. WBC Date Value Ref Range Status 11/07/2019 5.7 4.4 - 11.0 x10'3/uL Final HGB Date Value Ref Range Status 11/07/2019 12.3 12.3 - 15.3 G/DL Final PLT Date Value Ref Range Status 11/07/2019 210 151 - 353 x10'3/uL Final SODIUM Date Value Ref Range Status 11/07/2019 144 136 - 145 MMOL/L Final POTASSIUM Date Value Ref Range Status 11/07/2019 3.7 3.5 - 5.1 MMOL/L Final CHLORIDE S/P/B Date Value Ref Range Status 11/07/2019 106 100 - 108 MMOL/L Final CO2 Date Value Ref Range Status 11/07/2019 29.0 21 - 32 MMOL/L Final ANION GAP Date Value Ref Range Status 11/07/2019 9.0 5 - 15 MMOL/L Final BUN Date Value Ref Range Status 11/07/2019 16 7 - 18 MG/DL Final CREATININE S/P/B Date Value Ref Range Status 11/07/2019 0.91 0.55 - 1.02 MG/DL Final BUN CREATININE RATIO Date Value Ref Range Status 11/07/2019 17.6 6 - 26 Final eGFR Non-Afr. Amer. Date Value Ref Range Status 11/07/2019 58 (L) >90 ML/MIN/1.73 M2 Final eGFR Afr. Amer. Date Value Ref Range Status 11/07/2019 67 (L) >90 ML/MIN/1.73 M2 Final Comment: NOTE: eGFR is not calculated for patients <18 years of age. This is an estimated GFR (CKD EPI) and should not be used for calculating drug doses. GLUCOSE Date Value Ref Range Status 11/07/2019 148 (H) 70 - 99 MG/DL Final CALCIUM Date Value Ref Range Status 11/07/2019 8.8 8.5 - 10.1 MG/DL Final TOTAL PROTEIN S/P/B Date Value Ref Range Status 11/07/2019 6.7 6.4 - 8.2 G/DL Final ALBUMIN S/P/B Date Value Ref Range Status 11/07/2019 3.8 3.4 - 5.0 G/DL Final BILIRUBIN TOTAL S/P/B Date Value Ref Range Status 11/07/2019 0.5 0.2 - 1.2 MG/DL Final ALKALINE PHOSPHATASE S/P/B Date Value Ref Range Status 11/07/2019 91 50 - 136 U/L Final AST Date Value Ref Range Status 11/07/2019 20 15 - 37 U/L Final ALT Date Value Ref Range Status 11/07/2019 25 14 - 55 U/L Final Results for orders placed or performed during the hospital encounter of 07/30/19 URINALYSIS, AUTO, COMPLETE Result Value Ref Range COLOR (U) YELLOW TRANSPARENCY HAZY Specific [place] (U) 1.015 1.000 - 1.030 U PH [...] has not had a breakthrough infection on prophylactic antibiotics. I did review behavioral measures for prevention of UTI. In addition, I would like to start her on methenamine, and vitamin C. 2. Overactive bladder. We discussed avoidance of lower urinary tract irritants and stimulants. I would also like to start her on Myrbetriq 25 mg. A prescription was placed. She was counseled on appropriate use of medication. I will plan to have her follow-up in a couple of months. CLEMENCIA MILLER MD 12/14/2019 documented in this encounter Plan of Treatment Not on file documented as of this encounter Goals Goal Patient Goal Type Associated Problems Recent Progress Patient-Stated? Author Improve Home Support System General No Laura Cheatham, RN Return home with [facility] home health General No Malgorzata Brown TERRITORY SERVICE REPRESENTATIVE HOME WITH [facility] General No Chaparrita, Laura M, RN documented as of this encounter Procedures Procedure Name Priority Date/Time Associated Diagnosis Comments URINALYSIS AUTO DIP Routine 12/14/2019 Recurrent UTI documented in this encounter Results * URINALYSIS AUTO DIP (12/14/2019) COLOR (U) YELLOW [address] ([address]), [facility] [address] ([address]), [facility] GLUCOSE (U) NEGATIVE NEGATIVE MG/DL [address] ([address]), [facility] BILIRUBIN (U) NEGATIVE NEGATIVE [address] ([address]), [facility] KETONES MG/DL (U) NEGATIVE NEGATIVE MG/DL [address] ([address]), [facility] SPECIFIC GRAVITY (U) 1.025 1.001 - 1.[address] ([address]), [facility] BLOOD (U) TRACE (Non Hemolyzed, Intact) NEGATIVE [address] ([address]), [facility] U PH 5.5 5.0 - 9.[address] ([address]092), [facility] PROTEIN (U) NEGATIVE NEGATIVE mg/dL [address] ([address]), [facility] UROBILINOGEN 0.2 0.2 - 1.0 EU/dL = mg/dL [facility] ([address]), [facility] NITRITES NEGATIVE NEGATIVE MG/DL [address] ([address]), [facility] LEUKOCYTES (U) NEGATIVE NEGATIVE [address] ([address]), [facility] URINE SPECIMEN OBTAINED BY CLEAN CATCH PROCEDURE / Unknown 12/14/2019 us Clemencia Miller MD URINE ORDERABLES Final Result [address] ([address]), [place] [address] [place] [address], [place] [phone] documented in this encounter Visit Diagnoses Diagnosis Recurrent UTI- Primary Urinary tract infection, site not specified OAB (overactive bladder) Hypertonicity of bladder documented in this encounter Care Teams Cardiology Clinical Nurse Specialist Relationship Specialty Start Date End Date Noemi Barnard MD [address] [address] PCP - General INTERNAL MEDICINE 08/23/18 03/03/23 Joni Mckeon MD [address] [address] [place] Rn Maternity CARDIOVASCULAR DISEASE 07/04/18 documented as of this encounter
--- OUTSIDE RECORDS SUMMARY | 2024-04-05 00:16 | XMS_ITS | Encounter Summary ---
Author Organization [facility] Address [address] [place] [address]. [place] [address] [place] [address] Care Team Providers Care Driver Education Instructor Name Role Phone Joni Mckeon MD Unavailable [phone] Noemi Barnard MD Primary Care Provider [phone] Encounter Details Date Type Department Care Team (Late st Contact Info) Description 12/01/2019 Orders Only [facility], [address] [address] Devika Jenkins, [facility] Social History Tobacco Use Types Packs/Day Years [...] No Laura Cheatham, RN Return home with [facility] home health General No Malgorzata Brown MSW HOME WITH DAUGHTER General No Laura Cheatham RN documented as of this encounter Procedures Procedure Name Priority Date/Time Associated Diagnosis Comments MOBILE CONTINUOUS TELEMETRY Routine 01/13/2020 11:06 AM CDT Bradycardia Syncope documented in this encounter Results * HOSPITAL - MOBILE CONTINUOUS TELEMETRY (01/13/2020 11:06 AM CDT) 01/13/2020 11:0 6 AM CDT Narrative ESCRIPTION - 01/15/2020 11:19 AM CDT ENROLLMENT PERIOD: ??12/04/2019 - 01/02/2020 INDICATION: ??Bradycardia. PROCEDURE: ??The patient was monitored electrocardiographically by means of a [employer]ers[employer] BodyGuardian monitor. ??The transmitted recordings were scanned [...] 4. ??Would recommend electrophysiology evaluation. Dictated by Joni Mckeon MD D: ??01/13/2020 11:06 AM #[id number] T: ??01/15/2020 10:12 AM /TC Joni Mckeon MD CV VASCULAR ORDERABLES [facility] Organization Address City/State/ZIP Co de Phone Number ESCRIPTION documented in this encounter Visit Diagnoses Diagnosis Bradycardia Other specified cardiac dysrhythmias Syncope Syncope and collapse documented in this encounter Care Teams Driver Education Instructor Relationship Specialty Start Date End Date Noemi Barnard MD [facility]. [address] [address] PCP - General INTERNAL MEDICINE 08/23/18 03/03/23 Joni Mckeon MD [facility] [address] [place] [address] [place] [employer] House Supervisor CARDIOVASCULAR DISEASE 07/04/18 documented as of this encounter
--- OUTSIDE RECORDS SUMMARY | 2024-04-05 00:16 | XMS_ITS | Encounter Summary ---
Author Organization [facility] Address [address] [place] [address]. [place], [place] [address] [place] [address] Care Team Providers Care Real Estate Valuer Name Role Phone Joni Mckeon MD Unavailable [phone] Noemi Barnard MD Primary Care Provider [phone] Encounter Details Date Type Department Care Team (Latest Contact Info) Description 12/12/2019 Travel Social History Tobacco Use Types Packs/Day [...] have Coronavirus / COVID-19? No / Unsure 12/12/2019 11:58 AM CDT documented as of this encounter [...] on filedocumented in this encounter Care Teams Real Estate Valuer Relationship Specialty Start Date End Date Noemi Barnard MD Three [facility]. [address] [address] PCP - General INTERNAL MEDICINE 08/23/18 03/03/23 Joni Mckeon MD Three [facility]. [facility] [address] [place] [address] Christopher Ethical Hacker CARDIOVASCULAR DISEASE 07/04/18 documented as of this encounter
--- OUTSIDE RECORDS SUMMARY | 2024-04-05 00:16 | XMS_ITS | Encounter Summary ---
Author Organization [facility] Address [address] [place] [address]. [place], [place] [address] [place] [address] Care Team Providers Care Gear Cutting Machine Operator Name Role Phone Joni Mckeon MD Unavailable [phone] Noemi Barnard MD Primary Care Provider [phone] Encounter Details Date Type Department Care Team (Latest Contact Info) Description 11/09/2019 Travel Social History Tobacco Use Types Packs/Day [...] have Coronavirus / COVID-19? No / Unsure 11/09/2019 3:30 PM CDT documented as of this encounter [...] No Laura Cheatham, RN Return home with [facility] home health General No Malgorzata Brown MSW HOME WITH DAUGHTER General No Laura Cheatham, RN documented as of this encounter Visit Diagnoses Not on filedocumented in this encounter Care Teams Gear Cutting Machine Operator Relationship Specialty Start Date End Date Noemi Barnard MD Three [facility]. [address] [address] PCP - General INTERNAL MEDICINE 08/23/18 03/03/23 Joni Mckeon MD Three [facility]. [facility] [address] [place] [address] Christopher Spool Salvager CARDIOVASCULAR DISEASE 07/04/18 documented as of this encounter
--- OUTSIDE RECORDS SUMMARY | 2024-04-05 00:16 | XMS_ITS | Encounter Summary ---
Author Organization [facility] Address [address] [place] [address]. [place], [place] [address] [place] [address] Care Team Providers Care Med Spa Manager Name Role Phone Joni Mckeon MD Unavailable [phone] Noemi Barnard MD Primary Care Provider [phone] Encounter Details Date Type Department Care Team (Latest Contact Info) Description 12/05/2019 Travel Social History Tobacco Use Types Packs/Day [...] have Coronavirus / COVID-19? No / Unsure 12/05/2019 11:56 AM CDT documented as of this encounter [...] on filedocumented in this encounter Care Teams Med Spa Manager Relationship Specialty Start Date End Date Noemi Barnard MD Three [facility]. [address] [address] PCP - General INTERNAL MEDICINE 08/23/18 03/03/23 Joni Mckeon MD Three [facility]. [facility] [address] [place] [address] Christopher Assistant Production Editor CARDIOVASCULAR DISEASE 07/04/18 documented as of this encounter
--- OUTSIDE RECORDS SUMMARY | 2024-04-05 00:16 | XMS_ITS | Encounter Summary ---
Author Organization [facility] Address [address] [place] [address]. [place], [place] [address] [place] [address] Care Team Providers Care Zone Supervisor Firearms Name Role Phone Joni Mckeon MD Unavailable [phone] Noemi Barnard MD Primary Care Provider [phone] Encounter Details Date Type Department Care Team (Latest Contact Info) Description 12/14/2019 Travel Social History Tobacco Use Types Packs/Day [...] OF [place] home health General No Malgorzata Brown MSW HOME WITH DAUGHTER General No Laura Cheatham, RN documented as of this encounter Visit Diagnoses Not on filedocumented in this encounter Care Teams Zone Supervisor Firearms Relationship Specialty Start Date End Date Noemi Barnard MD Three [facility]. [address] [address] PCP - General INTERNAL MEDICINE 08/23/18 03/03/23 Joni Mckeon MD Three [facility]. [facility] [address] [place] [address] Christopher Airline Transport Pilot CARDIOVASCULAR DISEASE 07/04/18 documented as of this encounter
--- OUTSIDE RECORDS SUMMARY | 2024-04-05 00:16 | XMS_ITS | Encounter Summary ---
Author Organization [facility] Address [address] [place] [address]. [place], [place] [address] [place] [address] Care Team Providers Care Machine Assembler Name Role Phone Joni Mckeon MD Unavailable [phone] Noemi Barnard MD Primary Care Provider [phone] Encounter Details Date Type Department Care Team (Late st Contact Info) Description 11/08/2019 Orders Only [facility] Family & Internal Medicine [address] [address] Martha Ruiz, MEDIA THEORIST AND AUTHOR OF Social History Tobacco Use Types Packs/Day Years [...] Cheatham, RN Return home with [facility] home health General No Malgorzata Brown, BLADE OPERATOR HOME WITH DAUGHTER General No Laura Cheatham, RN documented as of this encounter Visit Diagnoses Diagnosis Hypothyroidism, unspecified type documented in this encounter Care Teams Machine Assembler Relationship Specialty Start Date End Date Noemi Barnard MD [facility]. [facility] [address] [place] [address] PCP - General INTERNAL MEDICINE 08/23/18 03/03/23 Joni Mckeon MD Three [facility]. [facility] [address] [place] [address] Crhistopher Production Machinist CARDIOVASCULAR DISEASE 07/04/18 documented as of this encounter
--- OUTSIDE RECORDS SUMMARY | 2024-04-05 00:16 | XMS_ITS | Encounter Summary ---
Author Organization [facility] Address [address] [place] [address]. [place] [address] [place] [address] Care Team Providers Care Tire Builder Operator Name Role Phone Joni Mckeon MD Unavailable [phone] Noemi Barnard MD Primary Care Provider [phone] Encounter Details Date Type Department Care Team (Latest Contact Info) Description 11/28/2019 Scan HEALTH INFO SRVCS Scanned, Documents Social [...] No Laura Cheatham, RN Return home with [facility] home health General No Malgorzata Brown, SCREEN PRINTING INSPECTOR HOME WITH DAUGHTER General No Laura Cheatham, RN documented as of this encounter Visit Diagnoses Not on filedocumented in this encounter Care Teams Tire Builder Operator Relationship Specialty Start Date End Date Noemi Barnard MD [facility]. [address] [address] PCP - General INTERNAL MEDICINE 08/23/18 03/03/23 Joni Mckeon MD Three [facility]. [facility] [address] [place] [address] Christopher Pelts Skinner CARDIOVASCULAR DISEASE 07/04/18 documented as of this encounter
--- OUTSIDE RECORDS SUMMARY | 2024-04-05 00:17 | XMS_ITS | Encounter Summary ---
Author Organization [facility] Address [address] [place] [address]. [place], [place] [address] [place] [address] Care Team Providers Care Auto Winder Name Role Phone Joni Mckeon MD Unavailable [phone] Noemi Barnard MD Primary Care Provider [phone] Encounter Details Date Type Department Care Team (Late st Contact Info) Description 09/08/2019 Orders Only [facility] Family & Internal Medicine - [place] [address] [place] [address] [place] [address] [place] [address] Social History Tobacco Use Types Packs/Day [...] have Coronavirus / COVID-19? No / Unsure 09/07/2019 12:35 PM CDT documented as of this encounter [...] No Laura Cheatham, RN Return home with [facility] home health General No aMlgorzata Brown MSW HOME WITH [facility] General No Laura Cheatham, RN documented as of this encounter Visit Diagnoses Not on filedocumented in this encounter Care Teams Auto Winder Relationship Specialty Start Date End Date Noemi Barnard MD [facility] [address] [place] [address] PCP - General INTERNAL MEDICINE 08/23/18 03/03/23 Joni Mckeon MD [facility] [address] [place] [address] [facility] Appraiser CARDIOVASCULAR DISEASE 07/04/18 documented as of this encounter
--- OUTSIDE RECORDS SUMMARY | 2024-04-05 00:17 | XMS_ITS | Encounter Summary ---
Author Organization [facility] Address [address] [place] [address]. [place], [place] [address] [place] [address] Care Team Providers Care Trustee Of Estate Name Role Phone Joni Mckeon MD Unavailable [phone] Noemi Barnard MD Primary Care Provider [phone] Encounter Details Date Type Department Care Team (Latest Contact Info) Description 09/14/2019 Travel Social History Tobacco Use Types Packs/Day [...] have Coronavirus / COVID-19? No / Unsure 09/14/2019 12:42 PM CDT documented as of this encounter [...] on filedocumented in this encounter Care Teams Trustee Of Estate Relationship Specialty Start Date End Date Noemi Barnard MD Three [facility]. [address] [address] PCP - General INTERNAL MEDICINE 08/23/18 03/03/23 Joni Mckeon MD Three [facility]. [facility] [address] [place] [address] Christopher Seed Pelleter CARDIOVASCULAR DISEASE 07/04/18 documented as of this encounter
--- OUTSIDE RECORDS SUMMARY | 2024-04-05 00:17 | XMS_ITS | Encounter Summary ---
Author Organization [facility] Address [address] [place] [address]. [place], [place] [address] [place] [address] Care Team Providers Care Senior Controller Name Role Phone Joni Mckeon MD Unavailable [phone] Noemi Barnard MD Primary Care Provider [phone] Encounter Details Date Type Department Care Team (Late st Contact Info) Description 09/08/2019 Orders Only [facility] Family & Internal Medicine - [place] [address] [place] [address] [place] [address] [place] [address] Social History Tobacco Use Types Packs/Day [...] [facility] home health General No Malgorzata Brown MSW HOME WITH [facility] General No Laura Cheatham RN documented as of this encounter Visit Diagnoses Diagnosis Colitis- Primary Other and unspecified noninfectious gastroenteritis and colitis documented in this encounter Care Teams Senior Controller Relationship Specialty Start Date End Date Noemi Barnard MD [address] [address] PCP - General INTERNAL MEDICINE 08/23/18 03/03/23 Joni Mckeon MD [facility] [address] [place] [address] [place] Roping Machine Tender CARDIOVASCULAR DISEASE 07/04/18 documented as of this encounter
--- OUTSIDE RECORDS SUMMARY | 2024-04-05 00:17 | XMS_ITS | Encounter Summary ---
Author Organization [facility] Address [address] [place] [address]. [place], [place] [address] [place] [address] Care Team Providers Care Supervisor Motorcycle Repair Shop Name Role Phone Joni Mckeon MD Unavailable [phone] Noemi Barnard MD Primary Care Provider [phone] Encounter Details Date Type Department Care Team (Latest Contact Info) Description 09/20/2019 Travel Social History Tobacco Use Types Packs/Day [...] have Coronavirus / COVID-19? No / Unsure 09/20/2019 12:48 PM CDT documented as of this encounter [...] No Laura Cheatham, RN Return home with [facility] home health General No Malgorzata Brown MSW HOME WITH DAUGHTER General No Laura Cheatham, RN documented as of this encounter Visit Diagnoses Not on filedocumented in this encounter Care Teams Supervisor Motorcycle Repair Shop Relationship Specialty Start Date End Date Noemi Barnard MD Three [facility]. [address] [address] PCP - General INTERNAL MEDICINE 08/23/18 03/03/23 Joni Mckeon MD Three [facility]. [facility] [address] [place] [address] Christopher Inflatable Buildings Laminator CARDIOVASCULAR DISEASE 07/04/18 documented as of this encounter
--- OUTSIDE RECORDS SUMMARY | 2024-04-05 00:17 | XMS_ITS | Encounter Summary ---
Author Organization [facility] Address [address] [place] [address]. [place], [place] [id number] [place] [id number] Care Team Providers Care Sheet Metal Helper Name Role Phone Joni Mckeon MD Unavailable [phone] Noemi Barnard MD Primary Care Provider [phone] Encounter Details Date Type Department Care Team (Latest Contact Info) Description 10/12/2019 Travel Social History Tobacco Use Types Packs/Day [...] have Coronavirus / COVID-19? No / Unsure 10/12/2019 1:31 PM CDT documented as of this encounter [...] Laura Cheatham, RN Return home with [facility] home health General No Malgorzata Brown MSW HOME WITH DAUGHTER General No Laura Cheatham, RN documented as of this encounter Visit Diagnoses Not on filedocumented in this encounter Care Teams Sheet Metal Helper Relationship Specialty Start Date End Date Noemi Barnard MD [facility]. [address] [address] PCP - General INTERNAL MEDICINE 08/23/18 03/03/23 Joni Mckeon MD [facility]. [facility] [address] [place] [address] Christopher Mechanical Door Repairer CARDIOVASCULAR DISEASE 07/04/18 documented as of this encounter
--- OUTSIDE RECORDS SUMMARY | 2024-04-05 00:17 | XMS_ITS | Encounter Summary ---
Author Organization [facility] Address [address] [place] [address]. [place] [address] [place] [address] Care Team Providers Care Instructor Of Nursing Name Role Phone Joni Mckeon MD Unavailable [phone] Noemi Barnard MD Primary Care Provider [phone] Reason for Visit * Reason Onset Date Comments Other 09/20/2019 Pharmacy Update Encounter Details Date Type Department Care Team (Late st Contact Info) Description 09/20/2019 Telephone [facility] Family [facility] Internal Medicine [facility] [address] [place] [address] [place] [id number] [place] [address] Other (Pharmacy Update) Social History Tobacco Use Types Packs/Day Years [...] documented in this encounter Progress Notes * Melanie Chavez RN - 09/20/2019 1:17 PM CDT Chart already updated * Ana Cristina Calvert - 09/20/2019 12:51 PM CDT Patient dtr wants to update pharmacy and change to [facility] in [place]. documented in this encounter Plan of Treatment Not on file documented as of this encounter Goals Goal Patient Goal Type Associated Problems Recent Progress Patient-Stated? Author Improve Home Support System General No Laura Cheatham, RN Return home with [facility] home health General No IzzyoneilMalgorzata, COMMERCIAL RELIEF DRIVER HOME WITH DAUGHTER General No Laura Cheatham, RN documented as of this encounter Visit Diagnoses Not on filedocumented in this encounter Care Teams Instructor Of Nursing Relationship Specialty Start Date End Date Noemi Barnard MD [facility]. [address] [address] PCP - General INTERNAL MEDICINE 08/23/18 03/03/23 Joni Mckeon MD [facility]. [place] [address] [place] [address] [place] Database Developer CARDIOVASCULAR DISEASE 07/04/18 documented as of this encounter
--- OUTSIDE RECORDS SUMMARY | 2024-04-05 00:17 | XMS_ITS | Encounter Summary ---
Author Organization [facility] Address [address] [place] [address]. [place] [address] [place] [address] Care Team Providers Care Shirt Finisher Name Role Phone Joni Mckeon MD Unavailable [phone] Noemi Jade MD Primary Care Provider Reason for Visit * Reason Comments Palpitations Coronary Artery Disease Encounter Details Date Type Department Care Team (Late st Contact Info) Description 09/20/2019 1:30 PM CDT Office Visit [facility] [id number] [place] [phone] Joni Mckeon MD [address] [address] Palpitations; Coronary Artery Disease Social History Tobacco Use Types Packs/Day Years [...] Sign Reading Time Taken Comments Blood Pressure 190/90 09/20/2019 1:27 PM CDT Pulse 58 09/20/2019 1:27 PM CDT Temperature - - Respiratory Rate - - Oxygen Saturation - - Inhaled Oxygen Concentration - - Weight 57.2 kg (126 lb) 09/20/2019 1:27 PM CDT Height 160 cm (5' 3 ) 09/20/2019 1:27 PM CDT Body Mass Index 22.32 09/20/2019 1:27 PM CDT documented in this encounter Functional [...] Instructions * Patient Instructions* Treasure Mojica - 09/20/2019 1:30 PM CDT Images from the original note were not included. Patient Education Patient Education Palpitations About this topic Sometimes you may have an awareness of your heart beating. It may feel like your heart is pounding or beating very fast. Sometimes it may feel like your heart is skipping a beat or is fluttering. Doctors may call this feeling a heart palpitation. You may be able to feel your abnormal heart beat in your chest, throat, or neck. Most of the time, the palpitations will go away after a short time and are not serious. Sometimes, they can be a sign of a more serious problem like an irregular heart beat or arrhythmia. What are the causes? ?? Stress, worry, panic, or fear ?? Smoking, caffeine, too much alcohol use, drug abuse ?? Some drugs, supplements, or herbals ?? Body chemicals like potassium, thyroid hormone, or calcium are out of balance. This may happen if you have an illness like kidney disease. Too much throwing up or loose stool can also cause this problem. So can some drugs you take. ?? Heart problems ?? Dehydration ?? Fever What can make this more likely to happen? You are more at risk if you have an abnormal heart rate. People who have problems with low mood or worry are also more likely to have palpitations. So do those who use street drugs. What are the main signs? You may feel: ?? Your heart skips a beat or flutters ?? A pounding or fluttering sensation in your chest, neck, or throat ?? Weak, dizzy, or lightheaded ?? Unusual sweating ?? Trouble breathing ?? Chest discomfort or pain How does the doctor diagnose this health problem? Your doctor will do an exam and ask about your history. Talk to your doctor about how often you feel this kind of heartbeat. Tell your doctor if anything makes it better or worse, like activity or lying down. The doctor may listen to your heartbeat or look for signs of some other health problem. The doctor may order: ?? Lab tests ?? Electrocardiogram (EKG) ?? A Holter or event monitor to check your heart signals for 1 to 3 days How does the doctor treat this health problem? Your care is based on what is causing your palpitations. Some people do not need anything to treat their palpitations. If your palpitations are caused by an irregular heartbeat, you may need to take drugs or have a procedure. Talk to your doctor to learn what is best for you. What drugs may be needed? The doctor may order drugs to: ?? Keep your heartbeat normal and steady What problems could happen? ?? Heart failure ?? Chest pain ?? Heart attack ?? Stroke What can be done to prevent this health problem? ?? Keep a healthy weight. If you are overweight, lose weight. ?? Exercise more often. This will improve your body's blood flow. Talk to your doctor about the right type of exercise for you. ?? Limit beer, wine, and mixed drinks (alcohol). ?? Avoid stress. Think about using guided imagery, yoga, kaylynn chi, etc. to help with relaxation. ?? Stay away from drugs that make the heartbeat faster, like those used for colds and cough. ?? Avoid caffeine or energy drinks. ?? Do not use street drugs like cocaine or methamphetamines. ?? Stop smoking. When do I need to call the [...] heartbeat ? Feeling dizzy ?? Signs of stroke: ? Sudden numbness or weakness of the face, arm, or leg, especially on one side of the body ? Sudden confusion, trouble speaking or understanding ? Sudden trouble seeing in one or both eyes ? Sudden trouble walking, dizziness, loss of balance or coordination ? Sudden severe headache with no known cause Call your doctor if you have: ?? Problems with breathing. These include change in shortness of breath, wheezing, need to sleep sitting up to be able to breathe, or other breathing troubles. ?? Blue or hernandez skin color ?? Sweating ?? Pain, pressure, tightness, or heaviness in your chest, arm, neck, or jaw ?? Very fast heartbeat ?? Trouble breathing with exercise ?? Gas pains or heartburn ?? You are not feeling better in 2 to 3 days or you are feeling worse Where can I learn more? [employer] http://familydoctor.org/familydoctor/en/diseases-conditions/heart-palpitations/c llvug-vapo-ayumxrr.html [employer] https://www.betterhealth.jean.gov.au/health/conditionsandtreatments/heart-arrhyth yjrs-efl-sgacshjxzosn NHS Choices http://www.nhs.uk/conditions/Heart-palpitations/Pages/Introduction.aspx Last Reviewed Date 2017-08-10 Consumer Information Use and Disclaimer This information [...] right for you. Copyright Copyright ?? 2020 [employer] and its affiliates and/or licensors. All rights reserved. documented in this encounter Progress Notes * Joni Mckeon MD - 09/20/2019 1:30 PM CDT Reason for Visit: Palpitations and Coronary Artery Disease REASON FOR FOLLOW: Hypertension palpitations recent urinary tract infection HISTORY OF PRESENT ILLNESS: Patient was seen approximately 2 weeks ago. Overall in the past 2 weeksshe is making good progress. She is had no more weakness. Her urinary tract infection appears to beresolved. Blood pressures have trended up. She had no recent hospitalizations.. She is had problems with urinary tract infections. Patient hashad problems with volume overload. Patient is weak. She has been losing weight. She has no specificcardiopulmonary complaints other than occasional palpitations. The patient's heart catheterization showed approximately 40% LAD stenosis. Prior echocardiogram demonstrated normal left ventricular size and function with mild tricuspid regurgitation. Patient has no other significant complaints. She is otherwise doing well. Impression recommendation 1. Coronary artery disease. Nonobstructive coronary disease continue risk factor modification 2. Hypertension: Blood pressure is elevated today. Patient is largely asymptomatic. Previous blood pressures were well controlled. Plan to resume amlodipine 5 mg. Continue benazepril. Monitor blood pressures over the next several weeks. Before we make any significant changes. Patient is quite frail. She is slowly recovering. Recommend we slowly titrate her antihypertensives. Continue low-sodium diet. Patient has minimal edema. 3. Palpitations: Prior ECG with occasional PACs. No documented atrial fibrillation. 4. Recurrent urinary tract infection: Patient can follow-up the primary care physician. May need tosee a urologist. Patient sees back approximately 6 weeks or sooner as needed. Medications: Current Outpatient [...] Wednesday and Wednesday., Disp: , Rfl: ??? OMEPRAZOLE 20 MG capsule, TAKE 1 CAPSULE(20 MG) BY MOUTH DAILY, Disp: 90 capsule, Rfl: 0 ??? pravastatin 40 MG tablet, Take 1 tablet (40 mg total) by mouth nightly at bedtime. at bedtime.,Disp: 90 tablet, Rfl: 0 ??? sertraline 100 MG tablet, Take 100 mg by mouth every morning. Indications: Depression, Disp: , Rfl: ??? trazodone 50 MG tablet, Take 50 mg by mouth nightly at bedtime. Indications: Disturbed Sleep, Disp: , Rfl: Allergies Allergen Reactions ??? Septra [Sulfamethoxazole-Trimethoprim] Rash Past Medical History: Diagnosis Date ??? Cancer (CMS/HCC) Past cancer survivor. ??? Diabetes (CMS/HCC) ??? GERD (gastroesophageal reflux disease) ??? Hyperlipidemia ??? Hypertension ??? Hypothyroidism ??? Insomnia ??? Sepsis (CMS/HCC) ??? Vitamin D deficiency Past Surgical History: Procedure Laterality Date ??? [...] shortness of breath and snoring. Cardiovascular: See HPI Gastrointestinal: Negative for blood in stool and melena. Genitourinary: Negative for dysuria. Musculoskeletal: Negative for myalgias and new or worsening joint stiffness/pain. Skin: Negative for rash. Neurological: Negative for tingling/numbness and focal weakness. Endo/Heme/Allergies: Negative for new or significant bruising/bleeding and polydipsia. Psychiatric/Behavioral: Negative for depression and new or significant memory loss. Filed Vitals: 09/20/19 1327 BP: (!) 190/90 Pulse: 58 Weight: 57.2 kg (126 lb) Height: 5' 3 (1.6 m) Body mass index is 22.32 kg/m??. Physical Exam Rate/Rhythm: regular rhythm and normal rate . Heart Sounds: normal heart sounds, normal S1 and normal S2 no gallop, no S3 sound, no S4 sound and no murmur. . PMI: PMI not displaced. Pulses: normal pulses negative for edema Constitutional: healthy appearance not distressed. . Neck: normal range of motion, neck supple and thyroid normal no JVD. . Pulmonary/Chest Wall: effort normal and breath sounds normal . HEENT: teeth/gums normal and oropharynx clear and moist. . Abdomen: abdomen soft and bowel sounds normal No tenderness. no mass. . Eyes: pupils equal, round, and reactive to light and conjunctivae normal. Neurological: alert, oriented x 3, appropriate for situation, intact cranial nerves and normal motor skillsnormal gait, . Skin: dry and warm no cyanosis and no clubbing. Musculoskeletal: no kyphosis normal ROM Cardiovascular Comments: Diagnoses/Impression: No diagnosis found. Referring Provider: No ref. provider found PCP: NOEMI JADE MD documented in this encounter Plan of Treatment Not on file documented as of this encounter Goals Goal Patient Goal Type Associated Problems Recent Progress Patient-Stated? 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
--- OUTSIDE RECORDS SUMMARY | 2024-04-05 00:17 | XMS_ITS | Encounter Summary ---
Author Organization [facility] Address [address] [place] [address]. [place], [place] [id number] [place] [address] Care Team Providers Care Multimedia Services Coordinator Name Role Phone Joni Mckeon MD Unavailable [phone] Noemi Barnard MD Primary Care Provider [phone] Encounter Details Date Type Department Care Team (Latest Contact Info) Description 09/11/2019 9:00 AM CDT Home Care Visit [address] [place] [address] Barbie Morel, PT [address] [place] [address] PT DISCIPLINE DISCHARGE Social History Tobacco Use Types Packs/Day Years [...] Sign Reading Time Taken Comments Blood Pressure 140/68 09/11/2019 9:23 AM CDT Pulse 54 09/11/2019 9:23 AM CDT Temperature 36.2 ??C (97.1 ??F) 09/11/2019 9:23 AM CD T Respiratory Rate 18 09/11/2019 9:23 AM CDT Oxygen Saturation 98% 09/11/2019 9:23 AM CDT Inhaled Oxygen Concentration - - Weight - - Height - - Body Mass Index - - documented in this encounter Functional Status * [...] General No Malgorzata Brown MSW HOME WITH [facility] General No Laura Cheatham, RN documented as of this encounter Visit Diagnoses Not on filedocumented in this encounter Home Health Visit - Care Plan Visit Details Visit Type -PT - Discipline Discharge Discipline -Physical Therapy Problems Problem Description Start Date Status Goals Interventions Discharge Planning Disciplines: Physical Therapy Discharge Planning 07/20/2019 Resolved on 09/11/2019 1 goal linked to scheduled/docume nted intervention 1 goal intervention scheduled/documen ke in this visit Care Coordination Disciplines: Physical Therapy Management and coordination of patient care 07/20/2019 Resolved on 09/11/2019 1 goal linked to scheduled/docume nted intervention 1 goal intervention scheduled/documen ke in this visit A Plan for Next Visit Disciplines: Physical Therapy Plan for next visit 07/20/2019 Resolved on 09/11/2019 1 goal linked to scheduled/docume nted intervention 1 goal intervention scheduled/documen ke in this visit Therapies Medications Disciplines: Physical Therapy Management of home medications 07/20/2019 Resolved on 09/11/2019 1 goal linked to scheduled/docume nted intervention 1 goal intervention scheduled/documen ke in this visit Home Safety Disciplines: Physical Therapy Management and evaluation of patient's home environment 07/20/2019 Resolved on 09/11/2019 1 goal linked to scheduled/docume nted intervention 1 goal intervention scheduled/documen ke in this visit Therapies Vitals Disciplines: Physical Therapy Obtain VS 07/20/2019 Resolved on 09/11/2019 1 goal linked to scheduled/docume nted intervention 1 goal intervention scheduled/documen ke in this visit PT Gait Training Disciplines: Physical Therapy Gait evaluation and training in appropriate use of assistive devices 07/20/2019 Resolved on 09/11/2019 1 goal linked to scheduled/docume nted intervention 1 goal intervention scheduled/documen ke in this visit PT Therapeutic Exercise Disciplines: Physical Therapy Therapeutic exercise 07/20/2019 Resolved on 09/11/2019 1 goal linked to scheduled/docume nted intervention 2 goal interventions scheduled/documen ke in this visit Therapies Transfer Training Disciplines: Physical Therapy Transfer Training 08/22/2019 Resolved on 09/11/2019 1 goal linked to scheduled/docume nted intervention 1 goal intervention scheduled/documen ke in this visit Homebound Status Disciplines: Physical Therapy Patient is homebound which is evidenced by BLE weakness with left weaker than right, decreased s/d balance maintenance with TUG of 30 seconds, instability with gait when unsupported, decreased activity tolerance as evidenced by 30 second sit to stand of 4, inability to leave home alone, and dyspnea with activity/ exertion. Resolved on 09/11/2019 1 goal linked to scheduled/docume nted intervention 1 problem intervention scheduled/documen ke in this visit Goals Goal Associated Problem Outcome Goal Met? Visit Notes Progress towards discharge Description: Documentation of ongoing progress towards goals through DC Discharge Planning Completed Yes Coordination of Care/Interpretive Services Description: Coordination of care will be achieved as needed through telecommunications during entire episode of care. Care Coordination Completed Yes Provide Continuity of Care Description: To provide continuity of care A Plan for Next Visit Completed Yes Therapies - Understanding of Medications - Physical Therapy Description: patient will verbalize understanding of medication regimen by 09/15/19. Therapies Medications Completed Yes Remain Safe in Home Description: Patient will remain safe in their home as evidenced by no falls or injuries, through 09/15/19. Patient will report a minimum of three fall prevention techniques without cues in order to demonstrate decreased fall risk by 09/08/19 Home Safety Completed Yes Physical Therapy - Vital Signs Description: Vital signs to be monitored as needed including pulse oximetry and changes or concerns reported to supervising therapist, showcase maker, and or provider through plan of care. Therapies Vitals Completed Yes PT Gait Training Description: Patient to ambulate independently indoors with device as needed for 250 ft or greater to assist with facility distances by 09/15/19. PT Gait Training Completed Yes PT Therapeutic Exercise Description: Patient to demonstrate independence with HEP to increase LE strength to 4/5 in order to improve patient's ind with mobility and activity tolerance by 09/15/19. Patient will demonstrate a decrease in fall risk as evidenced by an improved Tug score to 26 sec or less by 09/15/19. PT Therapeutic Exercise Completed Yes Physical Therapy - Transfer Training Description: Patient to perform bed/furniture transfers independently and safely by 09/08/19 Therapies Transfer Training Completed Yes Patient meets homebound requirements Description: Patient is homebound which is evidenced by BLE weakness with left weaker than right, decreased s/d balance maintenance with TUG of 30 seconds, instability with gait when unsupported, decreased activity tolerance as evidenced by 30 second sit to stand of 4, inability to leave home alone, and dyspnea with activity/ exertion. Homebound Status Completed Yes Interventions Intervention Associated Problem/Goal Status Variance Visit Notes Plan Towards Discharge Description: Document patient progress towards discharge. Problem:Discharge Planning Goal:Progress towards discharge Completed Patient is discharged from physical therapy with all goals met. Rn to continue with poc. Care Coordination Description: Coordinate care with necessary care team members as needed regarding PT POC or medical conditions or concerns. Problem:Care Coordination Goal:Coordination of Care/Interpretive Services Completed Clinician to review care plan with patient/caregiver. Patient/caregiver agrees to plan of care and agree to discharge this visit. Plan for Next Visit Description: Next visit plan summation Problem:A Plan for Next Visit Goal:Provide Continuity of Care Completed Discharge this visit from physical therapy and discharged bath aide per patient request. Review Medications Description: Skilled PT will record any new, changed or discharged medications as well as will educate the patient on side effects and interactions,. PT to contact MD with any sever/major interactions identified with new or changed medications. Problem:Therapies Medications Goal:Therapies - Understanding of Medications - Physical Therapy Completed Medication changes this visit with medication list left in patient's home and updated. Patient is no longer taking Potassium chloride and is taking benzapril per film or tape librarian appointment on 09/06/19 with rn notified of medication changes Instruct Home Safety Description: Instruct patient on strategies/modification s to home environment-Instructed patient on clear pathways, no throw rugs, tape down edges of large area rugs, proper lighting, to use wwalker at all times, slow position changes, phone within reach at all times, and to use a nightlight at night per home safety/fall prevention handout in soc packet. Problem:Home Safety Goal:Remain Safe in Home Completed Patient is knowledgeable of fall prevention with patient stating use of wwalker, clear pathways, and no throw rugs. No falls during poc. Therapies - Vitals Description: PT, showcase maker or physician to be contacted if pulse ox consistently below 88 percent, temp greater than 100.5, Systolic BP greater than 180 or less than 90, diastolic BP greater than 90 or less than 50, Heart rate consistently greater than 110 or less than 50, and resting respiratory rate less than 12 or greater than 24. Problem:Therapies Vitals Goal:Physical Therapy - Vital Signs All vitals wnl with vitals obtained prior to treatment. PT gait training Description: Evaluate and instruct patient in gait training using 4-wheeled walker. Problem:PT Gait Training Goal:PT Gait Training Completed Patient ambulated independently with wwalker for increased gait distances/without device for short household distances for greater than 400 ft. Patient ambulates with increased yasmin evidenced by tug test and increased/equal step height-length bilat with no dyspnea noted. No rest break after ambulation for fatigue. Instructed patient to continue with use of wwalker at night/when leaving home/increased ambulation distances for gait safety and to perform long walks in home at least daily to bid for cardiovascular benefits. Patient and daughter verbalize understanding and compliance outside of therapy visits. Therapies Balance Description: Assess balance and provide NMRE activities in standing to increase static and dynamic balance in order to improve gait pattern and decrease fall risk. Problem:PT Therapeutic Exercise Goal:PT Therapeutic Exercise Completed Patient completed tug test in 18 sec with no falls during poc. Therapies - Therapeutic Exercise Description: HEP for BLE strength and activity tolerance improvements Problem:PT Therapeutic Exercise Goal:PT Therapeutic Exercise Completed Patient is independent with le seated hep with patient recalling all exercises from memory and completed with proper technique. Increased bilat le mmt to 4/5-5/5. Instructed patient to continue with hep completion at least daily to bid for strength/endurance with patient verbalizing understanding and compliance outside of therapy visits. Therapies - Transfer Training Description: Evaluate and instruct patient Roxana in safe transfers using appropriate body mechanics and necessary equipment to perform safe transfers. Problem:Therapies Transfer Training Goal:Physical Therapy - Transfer Training Completed Patient is independent with sit to stand/stand to sit/exs-[id number]-[id number] transfers with good safety awareness. No difficulty noted with good safety awareness. Therapies Falls - Assess Appropriateness for Homecare Problem:Homebound Status Completed documented in this encounter Care Teams Multimedia Services Coordinator Relationship Specialty Start Date End Date Noemi Barnard MD [facility]. [address] [address] PCP - General INTERNAL MEDICINE 08/23/18 03/03/23 Joni Mckeon MD Three [facility]. [address] [address] Christopher Electric Wirer CARDIOVASCULAR DISEASE 07/04/18 documented as of this encounter
--- OUTSIDE RECORDS SUMMARY | 2024-04-05 00:17 | XMS_ITS | Encounter Summary ---
Author Organization [facility] Address [address] [place] [address]. [place], [place] [id number] [place] [address] Care Team Providers Care Trimmer Buffing Wheel Name Role Phone Joni Mckeon MD Unavailable [phone] Noemi Barnard MD Primary Care Provider [phone] Encounter Details Date Type Department Care Team (Latest Contact Info) Description 09/22/2019 Travel Social History Tobacco Use Types Packs/Day [...] have Coronavirus / COVID-19? No / Unsure 09/22/2019 4:20 PM CDT documented as of this [...] [facility] General No Malgorzata Brown MSW HOME WITH DAUGHTER General No Laura Cheatham, RN documented as of this encounter Visit Diagnoses Not on filedocumented in this encounter Care Teams Trimmer Buffing Wheel Relationship Specialty Start Date End Date Noemi Barnard MD [facility]. [address] [address] PCP - General INTERNAL MEDICINE 08/23/18 03/03/23 Joni Mckeon MD [address] [facility]. [facility] [address] [place] [address] Christopher Control Cabinet Assembler CARDIOVASCULAR DISEASE 07/04/18 documented as of this encounter
--- OUTSIDE RECORDS SUMMARY | 2024-04-05 00:17 | XMS_ITS | Encounter Summary ---
Author Organization [facility] Address [facility] [facility] [place] [address] [place] [address] Care Team Providers Care Overhauler Name Role Phone Joni Mckeon MD Unavailable [phone] Noemi Barnard MD Primary Care Provider [phone] Reason for Referral * Consultation (Urgent) - Closed Specialty Diagnoses / Procedures Referred By Eugenie crain Referred To Contact UROLOGY Diagnoses Recurrent UTI (urinary tract infection) Martha Ruiz NP [facility] [address] [address] Phone: tel: fax: Referral ID Status Reason Start Date Expiration Date Visits Re quested Visits Authorized [id number] Closed 09/22/2019 10/22/2020 100 100 Encounter Details Date Type Department Care Team (Late st Contact Info) Description 09/22/2019 Orders Only [facility] Family & Internal Medicine [address] [address] Martha Ruiz NP Social History Tobacco Use Types Packs/Day Years [...] Status No 08/16/2019 11:28 AM CDT Laila uLjan R N Active documented in this encounter Progress Notes * Herlinda Xiao MA - 09/22/2019 10:09 AM CDT [facility] contacted patient and s/w patients daughter. Referral for Urology placed due to Recurring UTI's.Patient's dtr also wanting to hold off on scheduling f/u appt until they hear on the Urology Referral. * Helrinda Xiao MA - 09/22/2019 7:38 AM CDT Per message from MARINE SURVEYOR, patient will need a referral to Urology. Will need to contact patient and discuss what she is wanting to be seen by Urology for. Also, per Martha, she is wanting to have the patient follow up in 2 weeks. Will need to contact patient to schedule. documented in this encounter Plan of Treatment Scheduled Referrals Name Type Priority Associated Diagnoses Orde r Schedule Ambulatory referral to Urology (OTHER) Referral Routine Recurrent UTI (urinary tract infection) Ordered: 09/22/2019 documented as of this encounter Goals Goal Patient Goal Type Associated Problems Recent Progress Patient-Stated? Author Improve Home Support System General No Laura Cheatham, RN Return home with [facility] home health General No Malgorzata Brown [employer] HOME WITH DAUGHTER General No Laura Cheatham, RN documented as of this encounter Visit Diagnoses Diagnosis Recurrent UTI (urinary tract infection)- Primary Urinary tract infection, site not specified documented in this encounter Care Teams Overhauler Relationship Specialty Start Date End Date Noemi Barnard MD [facility]. [address] [place] [address] PCP - General INTERNAL MEDICINE 08/23/18 03/03/23 Joni Mckeon MD Three [facility]. [address] [place] [address] Christopher Playground Attendant CARDIOVASCULAR DISEASE 07/04/18 documented as of this encounter
--- OUTSIDE RECORDS SUMMARY | 2024-04-05 00:17 | XMS_ITS | Encounter Summary ---
Author Organization [facility] Address [address] [place] [address]. [place], [place] [id number] [place] [address] Care Team Providers Care Software Firmware Engineer Name Role Phone Joni Mckeon MD Unavailable [phone] Noemi Barnard MD Primary Care Provider [phone] Encounter Details Date Type Department Care Team (Late st Contact Info) Description 09/14/2019 12:30 PM CDT Home Care Visit [address] [place] [address] Michelle Sanderson RN SN OASIS DISCHARGE/ASSESSMENT Social History Tobacco Use Types Packs/Day Years [...] Sign Reading Time Taken Comments Blood Pressure 140/80 09/14/2019 12:46 PM CDT Pulse 78 09/14/2019 12:46 PM CDT Temperature 36.8 ??C (98.3 ??F) 09/14/2019 12:46 PM C DT Respiratory Rate 18 09/14/2019 12:46 PM CDT Oxygen Saturation 98% 09/14/2019 12:46 PM CDT Inhaled Oxygen Concentration - - [...] MSW HOME WITH DAUGHTER General No Laura Cheathma RN documented as of this encounter Visit Diagnoses Not on filedocumented in this encounter Home Health Visit - Care Plan Visit Details Visit Type -SN - OASIS Disch arge Discipline -Usp Problems Problem Description Start Date Status Goals Interve ntions Discharge Planning Disciplines: Usp Discharge Planning 07/19/2019 Active 1 goal linked to scheduled/docume nted intervention 1 goal intervention scheduled/documen ke in this visit Care Coordination Disciplines: Usp Management and coordination of patient care 07/19/2019 Active 1 goal linked to scheduled/docume nted intervention 2 goal interventions scheduled/documen ke in this visit Homebound Status Disciplines: Usp Patient meets requirements of homebound status 07/19/2019 Active 1 goal linked to scheduled/docume nted intervention A Plan for Next Visit Disciplines: Usp Plan for next visit 07/19/2019 Active 1 goal linked to scheduled/docume nted intervention 1 goal intervention scheduled/documen ke in this visit Home Safety Disciplines: Usp Management and evaluation of patient's home environment 07/19/2019 Active 1 goal linked to scheduled/docume nted intervention 4 goal interventions scheduled/documen ke in this visit Medications Disciplines: Usp Management of home medications 07/19/2019 Active 1 goal linked to scheduled/docume nted intervention 3 goal interventions scheduled/documen ke in this visit Management and Evaluation of the Care Plan Disciplines: Usp SN for management and evaluation of skilled services 07/19/2019 Active 1 goal linked to scheduled/docume nted intervention 1 goal intervention scheduled/documen ke in this visit Skilled Observation and Assessment Disciplines: Usp Skilled O & A as specified by the physician 07/19/2019 Active 1 goal linked to scheduled/docume nted intervention 2 problem interventions scheduled/documen ke in this visit Nutritional concerns Disciplines: Usp Inadequate/imbala nced nutritional concerns 08/02/2019 Active 1 goal linked to scheduled/docume nted intervention 1 goal intervention scheduled/documen ke in this visit Venipuncture Disciplines: Usp Skilled nurse using clean technique to obtain labs as directed 09/01/2019 Active 1 goal linked to scheduled/docume nted intervention Goals Goal Associated Problem Outcome Goal Met? Visit Notes Progress towards discharge Description: Documentation of ongoing progress towards goals through 09/16/19 Discharge Planning Adequate for Discharge Yes Coordination of Care Achieved Description: Coordination of care will be achieved by / through 09/16/2019 Care Coordination Adequate for Discharge Yes Patient meets homebound requirements Description: Patient meets requirements of homebound status as evidenced by taxing effort to enter and exit home, must have someone provide transportation, memory impairment and uses walker to ambulate. Homebound Status Adequate for Discharge Yes Provide Continuity of Care Description: To provide continuity of care A Plan for Next Visit Adequate for Discharge Yes Remain Safe in Home Description: Patient will remain safe in their home as evidenced by no falls or injuries, through 09/16/2019 Home Safety Adequate for Discharge Yes Understanding of Medication Regimen Description: patient will verbalize understanding of medications and proper administration of medication regimen by 09/16/2019 Medications Adequate for Discharge Yes SN Management and Evaluation of the Care Plan Description: Skilled nurse will continue to manage and evaluate care plan through 09/16/2019 or until patient moves in with her daughter. Management and Evaluation of the Care Plan Adequate for Discharge Yes Skilled Observation and Assessment Description: patient will verbalize understanding and issues to report of assessments through 09/16/2019 Skilled Observation and Assessment Adequate for Discharge Yes Nutritional Status for Optimal Health Description: Patient will demonstrate adequate nutritional status as evidenced by stabilization of weight and intake of required nutrients for optimal health and functioning by 09/16/2019 Nutritional concerns Adequate for Discharge Yes SN Venipuncture Description: Patient will have knowledge and understanding of labs to be obtained by 09/16/19 Venipuncture Adequate for Discharge Yes Interventions Intervention Associated Problem/Goal Status Variance Visit Notes Plan Towards Discharge Description: Document patient progress towards discharge. Problem:Discharge Planning Goal:Progress towards discharge Completed Care Plan Collaboration Description: Care Plan Collaboration Problem:Care Coordination Goal:Coordination of Care Achieved Completed Care plan updates: None at this visit Care Coordination Description: Clinician to review care plan with patient/caregiver(s). Patient/caregiver agrees to plan of care and agree to participate in care Problem:Care Coordination Goal:Coordination of Care Achieved Completed Plan for Next Visit Description: Next visit plan summation Problem:A Plan for Next Visit Goal:Provide Continuity of Care Completed Instruct Home Safety Description: Instruct patient on strategies/modificatio ns to home environment. activity: up as tolerated Problem:Home Safety Goal:Remain Safe in Home Completed Instruct Disaster/Evacuation Plan Description: Instruct in planning and execution of disaster/evacuation plan. Assist patient in development or revision of plan as indicated. Problem:Home Safety Goal:Remain Safe in Home Completed Skilled Assessment Risk for Injury Description: Evaluate patient's home environment for potential safety risks, and educate patient on identified safety risks. Problem:Home Safety Goal:Remain Safe in Home Completed Instruct injury prevention Description: Instruct patient in strategies to prevent injury - modifications to the home environment, decrease clutter, frequent turning/repositioning, not to use ice/heat directly on the skin, choking precautions. Problem:Home Safety Goal:Remain Safe in Home Completed Medication Reconciliation Description: Reconcile medications and identify any unnecessary therapeutic duplication. Each clinician to perform bottle check weekly on their first visit of the week. Problem:Medications Goal:Understanding of Medication Regimen Completed Medication reconciliation performed with weekly bottle check. Skilled assessment medications Description: Assess patient ability to manage medications. Provide detailed instruction on proper administration and medication management. If medications are being managed appropriately, check completed. Problem:Medications Goal:Understanding of Medication Regimen Completed Instruct medications Description: Assess effectiveness of current treatment regimen, including purpose, side effects, food/drug interactions, storage and potential complications, and notify physician of changes needed. Any changes will be reviewed with patient/caregiver, added to medication list, and updated on medication list in home. Patient to take medications from medication box set up by Caregiver. Problem:Medications Goal:Understanding of Medication Regimen Completed Management and evaluation of care plan Description: SN to visit for management and evaluation of unskilled and skilled care providers. Evaluate and manage it to prevent medical complications. Notify physician of the need for modifications. Problem:Management and Evaluation of the Care Plan Goal:SN Management and Evaluation of the Care Plan Completed Skilled assessment knowledge deficit Description: SN to perform general assessment to include height, weight, vital signs, and temperature; General assessment of systems: pulmonary, cardiovascular, neurologic, gastrointestinal, endocrine, hematologic, musculoskeletal, renal/urinary, integumentary, reproductive, psychosocial/psychiatr ic/mental and Other: and report any abnormalities or concerns to the physician. Vital Signs -report to provider if: BP: systolic blood pressure <90 or >160; diastolic blood pressure <60 or >90; Temperature: >100.5 F; Pulse: <60 or >100 bpm; Respiratory Rate: <12 or >28 /min; SPO2: <90%. Problem:Skilled Observation and Assessment Completed Assess nutritional status Description: Skilled nurse to educate on diet each visit, patient to remain on heart healthy diet. Problem:Skilled Observation and Assessment Completed Skilled assessment nutrition Description: Assess patient's current nutritional status, factors that affect the patient's ability to purchase and prepare meals, food preferences, current eating practices, and current knowledge of intake requirements of. Assist with meal planning and instruct on nutritional requirements of regular diet. Problem:Nutritional concerns Goal:Nutritional Status for Optimal Health Completed documented in this encounter Care Teams Software Firmware Engineer Relationship Specialty Start Date End Date Noemi Barnard MD [facility]. [address] [address] PCP - General INTERNAL MEDICINE 08/23/18 03/03/23 Joni Mckeon MD [facility]. [address] [address] [place] [employer] Meat Grader CARDIOVASCULAR DISEASE 07/04/18 documented as of this encounter
--- OUTSIDE RECORDS SUMMARY | 2024-04-05 00:17 | XMS_ITS | Encounter Summary ---
Author Organization [facility] Address [address] [place] [address]. 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 [facility] [address] [place] [address] PCP - General INTERNAL MEDICINE 08/23/18 03/03/23 Joni Mckeon MD [facility]. [facility] [address] [place] [address] Christopher Environmental Health Officer CARDIOVASCULAR DISEASE 4/1/19 documented as of this encounter
--- OUTSIDE RECORDS SUMMARY | 2024-04-05 00:17 | XMS_ITS | Encounter Summary ---
Author Organization [facility] Address [address] [place] [address]. [place], [place] [id number] [place] [address] Care Team Providers Care Carbon Plant Grinder Name Role Phone Joni Mckeon MD Unavailable [phone] Noemi Barnard MD Primary Care Provider [phone] Encounter Details Date Type Department Care Team (Latest Contact Info) Description 09/19/2019 Travel Social History Tobacco Use Types Packs/Day [...] have Coronavirus / COVID-19? No / Unsure 09/19/2019 10:51 AM CDT documented as of this encounter [...] on filedocumented in this encounter Care Teams Carbon Plant Grinder Relationship Specialty Start Date End Date Noemi Barnard MD [facility] [place] [facility]. [address] [address] PCP - General INTERNAL MEDICINE 08/23/18 03/03/23 Joni Mckeon MD [facility] [place] [facility]. [facility] [address] [place] [address] Christopher Band Maker CARDIOVASCULAR DISEASE 07/04/18 documented as of this encounter
--- OUTSIDE RECORDS SUMMARY | 2024-04-05 00:17 | XMS_ITS | Encounter Summary ---
Author Organization [facility] Address [facility] [place] [address] [place] [address] Care Team Providers Care Measurement Superintendent Name Role Phone Joni Mckeon MD Unavailable [phone] Noemi Barnard MD Primary Care Provider [phone] Encounter Details Date Type Department Care Team (Latest Contact Info) Description 10/03/2019 3:05 PM CDT - 10/03/2019 11:59 PM CDT Hospital Encounter [facility] [address] [facility] [place] [address] Marry Pina, APNP [address] [address] Discharge Disposition: Home or Self [...] have Coronavirus / COVID-19? No / Unsure 10/02/2019 3:52 PM CDT documented as of this encounter [...] morning on Wednesday and Wednesday. 03/08/2019 0 OMEPRAZOLE 20 MG capsuleIndicatio ns:Gastroesophag eal reflux disease with esophagitis TAKE 1 CAPSULE(20 MG) BY MOUTH DAILY 90 capsule 08/25/2019 0 pravastatin 40 MG tabletIndication s:Hyperlipidemia Take 1 tablet (40 mg total) by mouth nightly at bedtime. at bedtime. 90 tablet 09/20/2019 0 trazodone 50 MG tabletIndication s:Sleep Disturbance Take 50 mg by mouth nightly at bedtime. Indications: Disturbed Sleep 08/17/2019 0 documented as of this encounter Plan of Treatment Not on file documented as of this encounter Goals Goal Patient Goal Type Associated Problems Recent Progress Patient-Stated? Author Improve Home Support System General No Laura Cheatham RN Return home with [facility] home health General No Malgorzata Brown ORGANIC PREPARATION ANALYST HOME WITH DAUGHTER General No Laura Cheatham RN documented as of this encounter Procedures Procedure Name Priority Date/Time Associated Diagnosis Comments URINE BACTERIA CULTURE Routine 10/03/2019 11:13 AM CDT Recurrent UTI documented in this encounter Results * CULTURE URINE (10/03/2019 11:13 AM CDT) SPEC DESCRIPTION URINE CLEAN CATCH 10/03/2019 3:05 PM CDT [facility] SPECIAL REQUESTS NO SPECIAL REQUEST 10/03/2019 3:05 PM CDT [facility] CULTURE RESULT NO GROWTH 2 DAYS 10/05/2019 8:39 AM CDT [facility] URINE SPECIMEN OBTAINED BY CLEAN CATCH PROCEDURE / Unknown 10/03/2019 11:13 AM CDT 10/03/2019 3:06 PM CDT Marry AVALOS MICROBIOLOGY - GENERAL ORDFauzia SLADE Final Result [facility] [address] [place] [address], documented in this encounter Visit Diagnoses Diagnosis Recurrent UTI Urinary tract infection, site not specified documented in this encounter Care Teams Measurement Superintendent Relationship Specialty Start Date End Date Noemi Barnard MD [facility] [place] [address] PCP - General INTERNAL MEDICINE 08/23/18 03/03/23 Joni Mckeon MD [facility]. [address] [address] [place] [employer] Presser CARDIOVASCULAR DISEASE 07/04/18 documented as of this encounter
--- OUTSIDE RECORDS SUMMARY | 2024-04-05 00:17 | XMS_ITS | Encounter Summary ---
Author Organization [facility] Address [address] [place] [address]. [place], [place] [address] [place] [address] Care Team Providers Care Logistic Specialist Name Role Phone Joni Mckeon MD Unavailable [phone] Noemi Barnard MD Primary Care Provider [phone] Encounter Details Date Type Department Care Team (Late st Contact Info) Description 09/12/2019 2:00 PM CDT Home Care Visit [address] [place] [address] Carlos Alberto Telles, SITE OPERATIONS MANAGER SN HOME VISIT Social History Tobacco Use Types Packs/Day Years [...] Sign Reading Time Taken Comments Blood Pressure 126/60 09/12/2019 1:50 PM CDT Pulse 53 09/12/2019 1:50 PM CDT Temperature 36.4 ??C (97.6 ??F) 09/12/2019 1:50 PM CD T Respiratory Rate 18 09/12/2019 1:50 PM CDT Oxygen Saturation 98% 09/12/2019 1:50 PM CDT Inhaled Oxygen Concentration - - [...] No Laura Cheatham, RN Return home with [facility] home health General No Malgorzata Brown MSW HOME WITH [facility] General No Laura Cheatham, RN documented as of this encounter Visit Diagnoses Not on filedocumented in this encounter Home Health Visit - Care Plan Visit Details Visit Type -SN - Home Visit Discipline -Snf Problems Problem Description Start Date Status Goals Interve ntions Discharge Planning Disciplines: Snf Discharge Planning 07/19/2019 Active 1 goal linked to scheduled/docume nted intervention 1 goal intervention scheduled/documen ke in this visit Care Coordination Disciplines: Snf Management and coordination of patient care 07/19/2019 Active 1 goal linked to scheduled/docume nted intervention 2 goal interventions scheduled/documen ke in this visit Homebound Status Disciplines: Snf Patient meets requirements of homebound status 07/19/2019 Active 1 goal linked to scheduled/docume nted intervention A Plan for Next Visit Disciplines: Snf Plan for next visit 07/19/2019 Active 1 goal linked to scheduled/docume nted intervention 1 goal intervention scheduled/documen ke in this visit Home Safety Disciplines: Snf Management and evaluation of patient's home environment 07/19/2019 Active 1 goal linked to scheduled/docume nted intervention 4 goal interventions scheduled/documen ke in this visit Medications Disciplines: Snf Management of home medications 07/19/2019 Active 1 goal linked to scheduled/docume nted intervention 3 goal interventions scheduled/documen ke in this visit Management and Evaluation of the Care Plan Disciplines: Snf SN for management and evaluation of skilled services 07/19/2019 Active 1 goal linked to scheduled/docume nted intervention 1 goal intervention scheduled/documen ke in this visit Skilled Observation and Assessment Disciplines: Snf Skilled O & A as specified by the physician 07/19/2019 Active 1 goal linked to scheduled/docume nted intervention 2 problem interventions scheduled/documen ke in this visit Nutritional concerns Disciplines: Snf Inadequate/imbala nced nutritional concerns 08/02/2019 Active 1 goal linked to scheduled/docume nted intervention 1 goal intervention scheduled/documen ke in this visit Venipuncture Disciplines: Snf Skilled nurse using clean technique to obtain labs as directed 09/01/2019 Active 1 goal linked to scheduled/docume nted intervention 1 problem intervention scheduled/documen ke in this visit Goals Goal Associated Problem Outcome Goal Met? Visit Notes Progress towards discharge Description: Documentation of ongoing progress towards goals through 09/16/19 Discharge Planning Progressing No Coordination of Care Achieved Description: Coordination of care will be achieved by / through 09/16/2019 Care Coordination Progressing No Patient meets homebound requirements Description: Patient meets requirements of homebound status as evidenced by taxing effort to enter and exit home, must have someone provide transportation, memory impairment and uses walker to ambulate. Homebound Status Progressing No Provide Continuity of Care Description: To provide continuity of care A Plan for Next Visit Progressing No Remain Safe in Home Description: Patient will remain safe in their home as evidenced by no falls or injuries, through 09/16/2019 Home Safety Progressing No Understanding of Medication Regimen Description: patient will verbalize understanding of medications and proper administration of medication regimen by 09/16/2019 Medications Progressing No SN Management and Evaluation of the Care Plan Description: Skilled nurse will continue to manage and evaluate care plan through 09/16/2019 or until patient moves in with her daughter. Management and Evaluation of the Care Plan Progressing No Skilled Observation and Assessment Description: patient will verbalize understanding and issues to report of assessments through 09/16/2019 Skilled Observation and Assessment Progressing No Nutritional Status for Optimal Health Description: Patient will demonstrate adequate nutritional status as evidenced by stabilization of weight and intake of required nutrients for optimal health and functioning by 09/16/2019 Nutritional concerns Progressing No SN Venipuncture Description: Patient will have knowledge and understanding of labs to be obtained by 09/16/19 Venipuncture Progressing No Interventions Intervention Associated Problem/Goal Status Variance Visit Notes Plan Towards Discharge Description: Document patient progress towards discharge. Problem:Discharge Planning Goal:Progress towards discharge Completed Discussed discharge on next nurse visit with patient and daughter and both agreeable, form signed by patient. Care Coordination Description: Clinician to review care plan with patient/caregiver(s) . Patient/caregiver agrees to plan of care and agree to participate in care Problem:Care Coordination Goal:Coordination of Care Achieved Completed Care Plan Collaboration Description: Care Plan Collaboration Problem:Care Coordination Goal:Coordination of Care Achieved Scheduled with variance Defer to next visit Care plan updates: None at this visit Plan for Next Visit Description: Next visit plan summation Problem:A Plan for Next Visit Goal:Provide Continuity of Care Completed Instruct Home Safety Description: Instruct patient on strategies/modificat ions to home environment. activity: up as tolerated [...] to the home environment, decrease clutter, frequent turning/repositionin g, not to use ice/heat directly on the skin, choking precautions. Problem:Home Safety Goal:Remain Safe in Home Completed Medication Reconciliation Description: Reconcile medications and identify any unnecessary therapeutic duplication. Each clinician to perform bottle check weekly on their first visit of the week. Problem:Medication s Goal:Understanding of Medication Regimen Completed Medication reconciliation performed with weekly bottle check. Skilled assessment medications Description: Assess patient ability to manage medications. Provide detailed instruction on proper administration and medication management. If medications are being managed appropriately, check completed. Problem:Medication s Goal:Understanding of Medication Regimen Completed Instruct medications Description: Assess effectiveness of current treatment regimen, including purpose, side effects, food/drug interactions, storage and potential complications, and notify physician of changes needed. Any changes will be reviewed with patient/caregiver, added to medication list, and updated on medication list in home. Patient to take medications from medication box set up by Caregiver. Problem:Medication s Goal:Understanding of Medication Regimen Completed Educated on adverse effects of antibiotic and verbalizes understanding. Management and evaluation of care plan Description: [...] gastrointestinal, endocrine, hematologic, musculoskeletal, renal/urinary, integumentary, reproductive, psychosocial/psychia tric/mental and Other: and report any abnormalities or [...] instruct on nutritional requirements of regular diet. Problem:Nutritiona l concerns Goal:Nutritional Status for Optimal Health Completed Venipuncture Description: Skilled nurse using clean technique to obtain blood for cbc, bmp and tsh via venipuncture on 09/05/19. Results to Martha Ruiz CLAY PUDDLER [phone]. Dx-E03.9, R78.81, I10, E11.9 Problem:Venipunctu re Defer to next visit Labs obtained on 09/05/19 documented in this encounter Care Teams Logistic Specialist Relationship Specialty Start Date End Date Noemi Barnard MD [facility]. [address] [address] PCP - General INTERNAL MEDICINE 08/23/18 03/03/23 Joni Mckeon MD Three [facility]. [address] [address] [place] Operater CARDIOVASCULAR DISEASE 07/04/18 documented as of this encounter
--- OUTSIDE RECORDS SUMMARY | 2024-04-05 00:17 | XMS_ITS | Encounter Summary ---
Author Organization [facility] Address [address] [place] [address]. [place], [place] [address] [place] [address] Care Team Providers Care Recovery Unit Operator Name Role Phone Joni Mckeon MD Unavailable [phone] Noemi Barnard MD Primary Care Provider [phone] Encounter Details Date Type Department Care Team (Latest Contact Info) Description 09/07/2019 Travel Social History Tobacco Use Types Packs/Day [...] [facility] General No Malgorzata Brown MSW HOME WITH DAUGHTER General No Laura Cheatham, RN documented as of this encounter Visit Diagnoses Not on filedocumented in this encounter Care Teams Recovery Unit Operator Relationship Specialty Start Date End Date Noemi Barnard MD Three [facility]. [address] [address] PCP - General INTERNAL MEDICINE 08/23/18 03/03/23 Joni Mckeon MD [facility]. [facility] [address] [place] [address] Christopher Rectifying Attendant CARDIOVASCULAR DISEASE 07/04/18 documented as of this encounter
--- OUTSIDE RECORDS SUMMARY | 2024-04-05 00:17 | XMS_ITS | Encounter Summary ---
Author Organization [facility] Address [address] [place] [address]. [place], [place] [address] [place] [address] Care Team Providers Care Purchaser Name Role Phone Joni Mckeon MD Unavailable [phone] Noemi Barnard MD Primary Care Provider [phone] Encounter Details Date Type Department Care Team (Latest Contact Info) Description 09/28/2019 Travel Social History Tobacco Use Types Packs/Day [...] have Coronavirus / COVID-19? No / Unsure 09/28/2019 3:55 PM CDT documented as of this encounter [...] No Laura Cheatham, RN Return home with [facility] home health General No Malgorzata Brown MSW HOME WITH DAUGHTER General No Laura Cheatham, RN documented as of this encounter Visit Diagnoses Not on filedocumented in this encounter Care Teams Purchaser Relationship Specialty Start Date End Date Noemi Barnard MD [facility]. [address] [address] PCP - General INTERNAL MEDICINE 08/23/18 03/03/23 Joni Mckeon MD [facility]. [facility] [address] [place] [address] Christopher Attorney General CARDIOVASCULAR DISEASE 07/04/18 documented as of this encounter
--- OUTSIDE RECORDS SUMMARY | 2024-04-05 00:17 | XMS_ITS | Encounter Summary ---
Author Organization [facility] Address [address] [place] [address]. [place], [place] [address] [place] [address] Care Team Providers Care Mine Development Engineer Name Role Phone Joni Mckeon MD Unavailable [phone] Noemi Barnard MD Primary Care Provider [phone] Encounter Details Date Type Department Care Team (Latest Contact Info) Description 10/05/2019 Travel Social History Tobacco Use Types Packs/Day [...] have Coronavirus / COVID-19? No / Unsure 10/05/2019 11:27 AM CDT documented as of this encounter [...] Author [facility] General No Lauar Cheatham, RN Return home with [facility] home health General No Malgorzata Brown MSW HOME WITH DAUGHTER General No Laura Cheatham, RN documented as of this encounter Visit Diagnoses Not on filedocumented in this encounter Care Teams Mine Development Engineer Relationship Specialty Start Date End Date Noemi Barnard MD Three [facility]. [address] [address] PCP - General INTERNAL MEDICINE 08/23/18 03/03/23 Joni Mckeon MD [facility]. [facility] [address] [place] [address] Christopher Embroiderer Hand CARDIOVASCULAR DISEASE 07/04/18 documented as of this encounter
--- OUTSIDE RECORDS SUMMARY | 2024-04-05 00:17 | XMS_ITS | Encounter Summary ---
Author Organization [facility] Address [address] [place] [address]. [place], [place] [address] [place] [address] Care Team Providers Care Adobe Flex Developer Name Role Phone Joni Mckeon MD Unavailable [phone] Noemi Barnard MD Primary Care Provider [phone] Reason for Referral * Imaging (Routine) - Closed Specialty Diagnoses / Procedures Referred By Eugenie crain Referred To Contact RADIOLOGY Diagnoses Recurrent UTI Procedures US RETROPERITONEAL COMP Marry Pina APNP Phone: tel: fax: Referral ID Status Reason Start Date Expiration Date Visits Re quested Visits Authorized [id number] Closed 10/03/2019 11/01/2020 1 1 Reason for Visit * Reason Comments New Patient Recurrent uti * Consultation (Urgent) - Closed Specialty Diagnoses / Procedures Referred By Eugenie crain Referred To Contact UROLOGY Diagnoses Recurrent UTI (urinary tract infection) Martha Ruiz, MIKE [facility] [address] [address] Phone: tel: fax: Referral ID Status Reason Start Date Expiration Date Visits Re quested Visits Authorized [id number] Closed 09/22/2019 10/22/2020 100 100 Encounter Details Date Type Department Care Team (Latest Contact Info) Description 10/03/2019 10:00 AM CDT Office Visit [facility] [address] [place] [address] Marry Pina, BAI[place] [address] [address] New Patient (Recurrent uti) Social History Tobacco Use Types Packs/Day Years [...] have Coronavirus / COVID-19? No / Unsure 10/09/2019 4:21 PM CDT documented as of this encounter Last Filed Vital Signs Vital Sign Reading Time Taken Comments Blood Pressure 180/88 10/03/2019 10:12 AM CDT Pulse - - Temperature 36.8 ??C (98.2 ??F) 10/03/2019 10:12 AM C DT Respiratory Rate - - Oxygen Saturation - - Inhaled Oxygen Concentration - - Weight 54.7 kg (120 lb 8 oz) 10/03/2019 10:12 AM CDT Height 160 cm (5' 3 ) 10/03/2019 10:12 AM CDT Body Mass Index 21.35 10/03/2019 10:12 AM CDT documented in this encounter Functional [...] documented in this encounter Progress Notes * BAILEY Miller - 10/03/2019 10:00 AM CDT Urology Consult Referring Provider: PCP: MD Roxana WILLIS is an 84-year-old female here for Chief Complaint Patient presents with ??? New Patient Recurrent uti HPI: 84-year-old white female presents for evaluation of recurrent UTIs. Presents with her daughter whomkrissye lives with. History. Reports 2 hospitalizations within the past 1 year for urinary sepsis. Mostrecent UTI in August of this year. Symptoms manifest typically with dysuria dark urine. Currently she reports dysuria at the end of her void and vaginal discomfort. Reports frequent urination though she cannot quantitate this. Reports urgency with associated incontinence for which she is wearing depends. Denies leakage with things like coughing sneezing and laughing. Reports a bladder lift greater than 25 years ago. Reports some hesitancy and straining to feel she is empty. Nocturia x2-3. Reports chronic lower back pain which increases with activity and intermittent flank pain bilaterally. She has chronic diarrhea. Denies constipation. Denies recent fever or chills. History of diverticulitis. Denies pneumaturia Past Medical History: Diagnosis Date ??? [...] Range COLOR (U) YELLOW TRANSPARENCY HAZY Specific Laie (U) 1.015 1.000 - 1.030 U PH [...] Urine will be sent for culture today. TAZ Miller documented in this encounter Plan of Treatment Not on file documented as of this encounter Goals Goal Patient Goal Type Associated Problems Recent Progress Patient-Stated? Author [facility] General No Laura Cheatham, RN Return home with [facility] home health General No Malgorzata Brown MSW HOME WITH DAUGHTER General No Laura Cheatham RN documented as of this encounter Procedures Procedure Name Priority Date/Time Associated Diagnosis Comments URINALYSIS AUTO DIP Routine 10/03/2019 Recurrent UTI documented in this encounter Results [...] By: Gino Hernandez MD, 10/20/2019 10:51 AM Marry AVALOS ULTRASOUND Final Resul t * CULTURE URINE (10/03/2019 11:13 AM CDT) [...] PM CDT Marry AVALOS MICROBIOLOGY - GENERAL ORDE RABLES Final Result [facility] [address] [id number], [place] [phone] * URINALYSIS AUTO DIP (10/03/2019) COLOR (U) DARK YELLOW [facility] ([address]), [place] TRANSPARENCY CLEAR [facility] ([address]), [place] GLUCOSE (U) 100 mg/dl NEGATIVE MG/DL [facility] ([address]), [place] BILIRUBIN (U) NEGATIVE NEGATIVE [facility] ([address]), [place] KETONES MG/DL (U) NEGATIVE NEGATIVE MG/DL [facility] ([address]), [place] SPECIFIC GRAVITY (U) 1.030 1.001 - 1.[address] ([address]), [...] BY CLEAN CATCH PROCEDURE / Unknown 10/03/2019 us Marry AVALOS URINE ORDERABLES Final Resu lt Performing Organization Address City/State/[facility] Co de Phone Number [address] ([address]), [place] [address] [place] [address], documented in this encounter Visit Diagnoses Diagnosis Recurrent UTI- Primary Urinary tract infection, site not specified Recurrent UTI Urinary tract infection, site not specified documented in this encounter Care Teams Adobe Flex Developer Relationship Specialty Start Date End Date Noemi Barnard MD [address] [facility] [address] [place] [address] PCP - General INTERNAL MEDICINE 08/23/18 03/03/23 Joni Mckeon MD [address] [place] [address] [place] [address] [place] Audiology Doctor CARDIOVASCULAR DISEASE 07/04/18 documented as of this encounter
--- OUTSIDE RECORDS SUMMARY | 2024-04-05 00:17 | XMS_ITS | Encounter Summary ---
Author Organization [facility] Address [address] [place] [address]. [place] [address] [place] [address] Care Team Providers Care Anode Builder Name Role Phone Joni Mckeon MD Unavailable [phone] Noemi Barnard MD Primary Care Provider [phone] Encounter Details Date Type Department Care Team (Latest Contact Info) Description 10/17/2019 Scan HEALTH INFO SRVCS Scanned, Documents Social [...] Author Status Yes 08/16/2019 11:28 AM CDT aLila Lujan R N Active documented as of [...] [facility] General No Malgorzata Brown, BRAND DIRECTOR HOME WITH DAUGHTER General No Laura Cheatham, RN documented as of this encounter Visit Diagnoses Not on filedocumented in this encounter Care Teams Anode Builder Relationship Specialty Start Date End Date Noemi Barnard MD [facility]. [address] [address] PCP - General INTERNAL MEDICINE 08/23/18 03/03/23 Joni Mckeon MD Three [facility]. [facility] [address] [place] [address] Christopher Primary Care Nurse Practitioner CARDIOVASCULAR DISEASE 07/04/18 documented as of this encounter
--- OUTSIDE RECORDS SUMMARY | 2024-04-05 00:17 | XMS_ITS | Encounter Summary ---
Author Organization [facility] Address [address] [place] [address]. [place] [address] [place] [address] Care Team Providers Care Clinical Unit Coordinator Name Role Phone Joni Mckeon MD Unavailable [phone] Noemi Barnard MD Primary Care Provider [phone] Reason for Visit * Reason Onset Date Comments Hospital Follow Up 09/14/2019 Encounter Details Date Type Department Care Team (Late st Contact Info) Description 09/14/2019 Telephone [facility] Care Management [address] [place] [address] Malgorzata Brown, [facility] Hospital Follow Up Social History Tobacco Use [...] No Laura Cheatham, RN Return home with [facility] home health General No Malgorzata Brown, LEADER TIER HOME WITH DAUGHTER General No Laura Cheatham, RN documented as of this encounter Visit Diagnoses Not on filedocumented in this encounter Care Teams Clinical Unit Coordinator Relationship Specialty Start Date End Date Noemi Barnard MD [facility]. [address] [address] [place] [address] PCP - General INTERNAL MEDICINE 08/23/18 03/03/23 Joni Mckeon MD [facility]. [facility] [address] [place] [address] Christopher Major Donor Coordinator CARDIOVASCULAR DISEASE 07/04/18 documented as of this encounter
--- OUTSIDE RECORDS SUMMARY | 2024-04-05 00:17 | XMS_ITS | Encounter Summary ---
Author Organization [facility] System Address [address] [place] [address]. [place] [address] [place] [address] Care Team Providers Care Aluminum Hydroxide Process Operator Name Role Phone Joni Mckeon MD Unavailable [phone] Noemi Jade MD Primary Care Provider [phone] Reason for Visit * Auth/Cert Specialty Diagnoses / Procedures Referred By Eugenie crain Referred To Contact Diagnoses N39.0 Procedures CYSTOSCOPY FLEXIBLE Referral ID Status Reason Start Date Expiration Date Visits Re quested Visits Authorized [id number] 1 1 Encounter Details Date Type Department Care Team (Latest Contact Info) Description 10/19/2019 12:28 PM CDT - 10/19/2019 3:03 PM CDT Hospital Encounter [facility] [address] [place] [address] Clemencia Miller MD [address] [place] [address] [place] [address] Discharge Disposition: Home or Self Care (Routine [...] through Care Everywhere. * Cystoscopy Discharge Instructions (Libyan) * Kidney Stone Diet (Libyan) documented in this encounter Medications at Time [...] during recuperation were discussed with the patient/family/personal commissary representative. Reasonable alternatives to the patient's proposed procedure/surgery including benefits, risks, and side effects related to the alternatives and the risks related to not receiving the proposed care were also discussed with the patient/family/personal commissary representative. Questions were answered and the patient/family/personal commissary representative verbalized understanding and desires to proceed. Source Note - BAILEY Miller - 10/03/2019 10:00 AM CDT Urology Consult Referring Provider: PCP: NOEMI JADE MD Roxana Ch is an 84-year-old female here for Chief Complaint Patient presents with ??? New Patient Recurrent uti HPI: 84-year-old white female presents for evaluation of recurrent UTIs. Presents with her daughter deborah lives with. History. Reports 2 hospitalizations within [...] Range COLOR (U) YELLOW TRANSPARENCY HAZY Specific [place] (U) 1.015 1.000 - 1.030 U PH [...] No Laura Cheatham, RN Return home with [facility] health General No Malgorzata Brown, SENIOR SQL SERVER DEVELOPER HOME WITH DAUGHTER General No Laura Cheatham RN documented as of this encounter Procedures Procedure Name Priority Date/Time Associated Diagnosis Comments CYSTOSCOPY FLEXIBLE 10/19/2019 2 :00 PM CDT N39.0 Special Needs 1300 documented in this encounter Visit Diagnoses Diagnosis UTI symptoms- Primary Recurrent UTI Urinary tract infection, site not specified documented in this encounter Administered Medications Inactive Administered Medications - up to 3 most recent administrations Medication Order MAR Action Action Date Dose Rate Site cephALEXin (KEFLEX) capsule 500 mg 500 mg, Oral, Once, 1 dose, On Veronica 10/19/19 at 1330Indications:UTI symptoms Given 10/19/2019 1:11 PM CDT 500 mg documented in this encounter Active and Recently [...] MD) documented in this encounter Care Teams Aluminum Hydroxide Process Operator Relationship Specialty Start Date End Date Noemi Jade MD [facility]. [address] [address] PCP - General INTERNAL MEDICINE 08/23/18 03/03/23 Joni Mckeon MD [facility]. [address] [address] [place] Paper Folding Machine Operator CARDIOVASCULAR DISEASE 07/04/18 documented as of this encounter
--- OUTSIDE RECORDS SUMMARY | 2024-04-05 00:17 | XMS_ITS | Encounter Summary ---
Author Organization [facility] System Address [address] [place] [address]. [place], [place] [address] [place] [address] Care Team Providers Care Supervisor Dials Name Role Phone Joni Mckeon MD Unavailable [phone] Noemi Barnard MD Primary Care Provider [phone] Encounter Details Date Type Department Care Team (Latest Contact Info) Description 10/09/2019 Travel Social History Tobacco Use Types Packs/Day [...] No Laura Cheatham, RN Return home with [facility] home health General No Malgorzata Brown MSW HOME WITH DAUGHTER General No Laura Cheatham, RN documented as of this encounter Visit Diagnoses Not on filedocumented in this encounter Care Teams Supervisor Dials Relationship Specialty Start Date End Date Noemi Barnard MD Three [facility]. [address] [address] PCP - General INTERNAL MEDICINE 08/23/18 03/03/23 Joni Mckeon MD Three [facility]. [facility] [address] [place] [address] Christopher Glass Tinter CARDIOVASCULAR DISEASE 07/04/18 documented as of this encounter
--- OUTSIDE RECORDS SUMMARY | 2024-04-05 00:17 | XMS_ITS | Encounter Summary ---
Author Organization [facility] System Address [address] [place] [address]. [place], [place] [address] [place] [address] Care Team Providers Care Surgical Garment Assembler Name Role Phone Joni Mckeon MD Unavailable [phone] Noemi Barnard MD Primary Care Provider [phone] Encounter Details Date Type Department Care Team (Latest Contact Info) Description 10/02/2019 Travel Social History Tobacco Use Types Packs/Day [...] on filedocumented in this encounter Care Teams Surgical Garment Assembler Relationship Specialty Start Date End Date Noemi Barnard MD Three [facility]. [address] [address] PCP - General INTERNAL MEDICINE 08/23/18 03/03/23 Joni Mckeon MD Three [facility]. [facility] [address] [place] [address] Christopher Tree Deadener CARDIOVASCULAR DISEASE 07/04/18 documented as of this encounter
--- OUTSIDE RECORDS SUMMARY | 2024-04-05 00:17 | XMS_ITS | Encounter Summary ---
Author Organization [facility] Address [address] [place] [address]. [place] [address] [place] [address] Care Team Providers Care Sheep Shearer Name Role Phone Joni Mckeon MD Unavailable [phone] Noemi Jade MD Primary Care Provider [phone] Reason for Visit * Reason Onset Date Comments Medication 09/20/2019 Encounter Details Date Type Department Care Team (Late st Contact Info) Description 09/20/2019 Telephone [facility] Family [facility] Internal Medicine [facility] [address] [place] [address] [place] Jade [place] [id number] [place] [address] Medication Social History Tobacco Use Types [...] Notes * Melanie Chavez RN - 09/20/2019 3:56 PM CDT Script sent as requested * Ana Cristina Calvert - 09/20/2019 3:46 PM CDT .. Medication and strength: pravastatin 40 mg Pharmacy: [facility] Call back #: [phone] Last office visit at this office: Last visit with NOEMI JADE in INTERNAL MEDICINE was on: 01/17/2019 in [facility] Future appointment scheduled: Future Appointments Date Time Provider Department Center 09/21/2019 1:00 PM [place] [facility] 09/25/2019 1:00 PM Efren Han, ADOBE BALL MIXER [facility] 09/28/2019 1:00 PM Efren Han, ADOBE BALL MIXER [facility] 10/02/2019 1:00 PM Efren Han, ADOBE BALL MIXER [facility] 10/05/2019 1:00 PM Efren Han, ADOBE BALL MIXER [facility] 10/09/2019 1:00 PM Efren Han, ADOBE BALL MIXER [facility] 10/12/2019 1:00 PM Efren Han, ADOBE BALL MIXER [facility] 10/17/2019 8:30 AM Db Rubin MD [facility] 11/07/2019 1:40 PM Martha Ruiz, DOG TRAINER [facility] 11/22/2019 12:00 PM Joni Mckeon MD [facility] documented in this encounter Plan of Treatment Not on file documented as of this encounter Goals Goal Patient Goal Type Associated Problems Recent Progress Patient-Stated? Author Improve Home Support System General No Laura Cheatham, RN Return home with [facility] home health General No Malgorzata Brown CASE RESOLUTION SPECIALIST HOME WITH DAUGHTER General No Laura Cheatham, RN documented as of this encounter Visit Diagnoses Diagnosis Hyperlipidemia Other and unspecified hyperlipidemia documented in this encounter Care Teams Sheep Shearer Relationship Specialty Start Date End Date Noemi Jade MD [facility]. [address] [place] [address] PCP - General INTERNAL MEDICINE 08/23/18 03/03/23 Joni Mckeon MD [facility]. [facility] [address] [place] [address] [place] Oil [employer] Cable Tool Driller CARDIOVASCULAR DISEASE 07/04/18 documented as of this encounter
--- OUTSIDE RECORDS SUMMARY | 2024-04-05 00:17 | XMS_ITS | Encounter Summary ---
Author Organization [facility] Address [address] [place] [address]. [place], [place] [address] [place] [address] Care Team Providers Care Home Agent Name Role Phone Joni Mckeon MD Unavailable [phone] Noemi Barnard MD Primary Care Provider [phone] Encounter Details Date Type Department Care Team (Latest Contact Info) Description 09/25/2019 Travel Social History Tobacco Use Types Packs/Day [...] have Coronavirus / COVID-19? No / Unsure 09/25/2019 2:39 PM CDT documented as of this encounter [...] on filedocumented in this encounter Care Teams Home Agent Relationship Specialty Start Date End Date Noemi Barnard MD Three [facility]. [address] [address] PCP - General INTERNAL MEDICINE 08/23/18 03/03/23 Joni Mckeon MD Three [facility]. [facility] [address] [place] [address] Christopher Transformation Analyst CARDIOVASCULAR DISEASE 07/04/18 documented as of this encounter
--- OUTSIDE RECORDS SUMMARY | 2024-04-05 00:17 | XMS_ITS | Encounter Summary ---
Author Organization [facility] Address [address] [place] [address]. [place], [place] [address] [place] [address] Care Team Providers Care Bike Mechanic Name Role Phone Joni Mckeon MD Unavailable [phone] Noemi Barnard MD Primary Care Provider [phone] Encounter Details Date Type Department Care Team (Latest Contact Info) Description 10/16/2019 Travel Social History Tobacco Use Types Packs/Day [...] have Coronavirus / COVID-19? No / Unsure 10/16/2019 4:27 PM CDT documented as of this encounter [...] [facility] home health General No Malgorzata Brown MSW HOME WITH DAUGHTER General No Laura Cheatham, RN documented as of this encounter Visit Diagnoses Not on filedocumented in this encounter Care Teams Bike Mechanic Relationship Specialty Start Date End Date Noemi Barnard MD Three [facility]. [address] [address] PCP - General INTERNAL MEDICINE 08/23/18 03/03/23 Joni Mckeon MD Three [facility]. [facility] [address] [place] [address] Christopher Managing Member CARDIOVASCULAR DISEASE 07/04/18 documented as of this encounter
--- OUTSIDE RECORDS SUMMARY | 2024-04-05 00:18 | XMS_ITS | Encounter Summary ---
Author Organization [facility] Address [address] [place] [address]. [place], [place] [address] [place] [address] Care Team Providers Care Front Office Administrator Name Role Phone Joni Mckeon MD Unavailable [phone] Noemi Barnard MD Primary Care Provider [phone] Encounter Details Date Type Department Care Team (Late st Contact Info) Description 09/04/2019 10:00 AM CDT Home Care Visit [address] [place] [address] Mekhi Falk, WHIPPED TOPPING SUPERVISOR [address] [place] [address] WHIPPED TOPPING SUPERVISOR HOME VISIT Social History Tobacco Use Types [...] have Coronavirus / COVID-19? No / Unsure 09/01/2019 1:27 PM CDT documented as of this encounter Last Filed Vital Signs Vital Sign Reading Time Taken Comments Blood Pressure 140/90 09/04/2019 10:19 AM CDT Pulse 58 09/04/2019 10:19 AM CDT Temperature 36.5 ??C (97.7 ??F) 09/04/2019 10:19 AM C DT Respiratory Rate 18 09/04/2019 10:19 AM CDT Oxygen Saturation - - Inhaled Oxygen Concentration - - Weight - [...] OF [place] home health General No Malgorzata Brown MSW HOME WITH [facility] General No Laura Cheatham, RN documented as of this encounter Visit Diagnoses Not on filedocumented in this encounter Home Health Visit - Care Plan Visit Details Visit Type -WHIPPED TOPPING SUPERVISOR - Home Visit Discipline -Physical Therapy Problems Problem Description Start Date Status Goals Interve ntions Discharge Planning Disciplines: Physical Therapy Discharge Planning 07/20/2019 Active 1 goal linked to scheduled/docume nted intervention 1 goal intervention scheduled/documen ke in this visit Care Coordination Disciplines: Physical Therapy Management and coordination of patient care 07/20/2019 Active 1 goal linked to scheduled/docume nted intervention 1 goal intervention scheduled/documen ke in this visit A Plan for Next Visit Disciplines: Physical Therapy Plan for next visit 07/20/2019 Active 1 goal linked to scheduled/docume nted intervention 1 goal intervention scheduled/documen ke in this visit Therapies Medications Disciplines: Physical Therapy Management of home medications 07/20/2019 Active 1 goal linked to scheduled/docume nted intervention 1 goal intervention scheduled/documen ke in this visit Home Safety Disciplines: Physical Therapy Management and evaluation of patient's home environment 07/20/2019 Active 1 goal linked to scheduled/docume nted intervention 1 goal intervention scheduled/documen ke in this visit Therapies Vitals Disciplines: Physical Therapy Obtain VS 07/20/2019 Active 1 goal linked to scheduled/docume nted intervention 1 goal intervention scheduled/documen ke in this visit PT Gait Training Disciplines: Physical Therapy Gait evaluation and training in appropriate use of assistive devices 07/20/2019 Active 1 goal linked to scheduled/docume nted intervention 1 goal intervention scheduled/documen ke in this visit PT Therapeutic Exercise Disciplines: Physical Therapy Therapeutic exercise 07/20/2019 Active 1 goal linked to scheduled/docume nted intervention 2 goal interventions scheduled/documen ke in this visit Therapies Transfer Training Disciplines: Physical Therapy Transfer Training 08/22/2019 Active 1 goal linked to scheduled/docume nted [...] home alone, and dyspnea with activity/ exertion. Active - 1 problem intervention scheduled/documen ke in this visit Goals Goal Associated Problem Outcome Goal Met? Visit Notes Progress towards discharge Description: Documentation of ongoing progress towards goals through DC Discharge Planning No Coordination of Care/Interpretive Services Description: Coordination of care will be achieved as needed through telecommunications during entire episode of care. Care Coordination No Provide Continuity of Care Description: To provide continuity of care A Plan for Next Visit No Therapies - Understanding of Medications - Physical Therapy Description: patient will verbalize understanding of medication regimen by 09/15/19. Therapies Medications No Remain Safe in Home Description: Patient will remain safe in their home as evidenced by no falls or injuries, through 09/15/19. Patient will report a minimum of three fall prevention techniques without cues in order to demonstrate decreased fall risk by 09/08/19 Home Safety No Physical Therapy - Vital Signs Description: Vital signs to be monitored as needed including pulse oximetry and changes or concerns reported to supervising therapist, casework manager, and or provider through plan of care. Therapies Vitals No PT Gait Training Description: Patient to ambulate independently indoors with device as needed for 250 ft or greater to assist with facility distances by 09/15/19. PT Gait Training No PT Therapeutic Exercise Description: Patient to demonstrate independence with HEP to increase LE strength to 4/5 in order to improve patient's ind with mobility and activity tolerance by 09/15/19. Patient will demonstrate a decrease in fall risk as evidenced by an improved Tug score to 26 sec or less by 09/15/19. PT Therapeutic Exercise No Physical Therapy - Transfer Training Description: Patient to perform bed/furniture transfers independently and safely by 09/08/19 Therapies Transfer Training No Interventions Intervention Associated Problem/Goal Status Variance Visit Notes Plan Towards Discharge Description: Document patient progress towards discharge. Problem:Discharge Planning Goal:Progress towards discharge Completed patient progressing towards goals. Care Coordination Description: Coordinate care with necessary care team members as needed regarding PT POC or medical conditions or concerns. Problem:Care Coordination Goal:Coordination of Care/Interpretive Services Completed Field Enumerator seen last Plan for Next Visit Description: Next visit plan summation Problem:A Plan for Next Visit Goal:Provide Continuity of Care Completed continue with POC Review Medications Description: Skilled PT will record any new, changed or discharged medications as well as will educate the patient on side effects and interactions,. PT to contact MD with any sever/major interactions identified with new or changed medications. Problem:Therapies Medications Goal:Therapies - Understanding of Medications - Physical Therapy Completed Instruct Home Safety Description: Instruct patient on strategies/modificati ons to home environment-Instructe d patient on clear pathways, no throw rugs, tape down edges of large area rugs, proper lighting, to use wwalker at all times, slow position changes, phone within reach at all times, and to use a nightlight at night per home safety/fall prevention handout in soc packet. Problem:Home Safety Goal:Remain Safe in Home Completed PT INSTRUCTED ON SLOW POSITION CHANGE, USE OF LOW HEEL OR NONSKID SOLES,PUSHING UP WITH HANDS FROM CHAIR OR BED WITH FEET UNDERNEATH THEM,MAKE SURE THE BACK OF LEGS ARE TOUCHING THE SURFACE THAT THEY WILL BE SITTING ON AND REACHING BACK WITH HANDS TO THE SEAT OR BED,USE OF DEVICE NEEDED AND INSTRUCTED BY THERAPIST,REMOVAL OF AREA OR THROW RUGS, TAPE DOWN EDGES OF LARGE RUGS,USE OF BRIGHT LIGHTING THROUGHOUT THE HOUSE,AND KEEPING SMALL LIGHTS OR NIGHT LIGHTS ON FOR NIGHTTIME USE IN THE BEDROOM, BATHROOM, STAIRS, AND KITCHEN Therapies - Vitals Description: PT, casework manager or physician to be contacted if pulse ox consistently below 88 percent, temp greater than 100.5, Systolic BP greater than 180 or less than 90, diastolic BP greater than 90 or less than 50, Heart rate consistently greater than 110 or less than 50, and resting respiratory rate less than 12 or greater than 24. Problem:Therapies Vitals Goal:Physical Therapy - Vital Signs Completed PT gait training Description: Evaluate and instruct patient in gait training using 4-wheeled walker. Problem:PT Gait Training Goal:PT Gait Training Completed Patient ambulated 300' with use of FWW and SBA on even surfaces. Patient demonstrates no fatigue this date during ambulation requiring minimal rest break after ambulation. Therapies - Therapeutic Exercise Description: HEP for BLE strength and activity tolerance improvements Problem:PT Therapeutic Exercise Goal:PT Therapeutic Exercise Completed Patient performed LAQ, hip flexion, hip ABD, and PF/DF x 20 bilaterally in sitting. Patient demonstrates left LE weakness with decreased ROM with last reps of LAQ. Small rest break after all exercises due to muscle fatigue with added reps. Therapies Balance Description: Assess balance and provide NMRE activities in standing to increase static and dynamic balance in order to improve gait pattern and decrease fall risk. Problem:PT Therapeutic Exercise Goal:PT Therapeutic Exercise Scheduled with variance Defer to next visit Patient declined due to shower aide arriving. Therapies - Transfer Training Description: Evaluate and instruct patient Roxana in safe transfers using appropriate body mechanics and necessary equipment to perform safe transfers. Problem:Therapies Transfer Training Goal:Physical Therapy - Transfer Training Completed Patient is mod I with transfers. Therapies Falls - Assess Appropriateness for Homecare Problem:Homebound Status Completed documented in this encounter Care Teams Front Office Administrator Relationship Specialty Start Date End Date Noemi Barnard MD [facility]. [address] [address] PCP - General INTERNAL MEDICINE 08/23/18 03/03/23 Joni Mckeon MD Three [facility]. [address] [address] Christopher Endoscopy Technican CARDIOVASCULAR DISEASE 07/04/18 documented as of this encounter
--- OUTSIDE RECORDS SUMMARY | 2024-04-05 00:18 | XMS_ITS | Encounter Summary ---
Author Organization [facility] Address [address] [place] [address]. [place], [place] [address] [place] [address] Care Team Providers Care Director Instructional Material Name Role Phone Joni Mckeon MD Unavailable [phone] Noemi Barnard MD Primary Care Provider [phone] Reason for Visit * Reason Comments Follow Up 2 week f/u on lab re ken, Seen Rn Staffing. Encounter Details Date Type Department Care Team (Late st Contact Info) Description 09/07/2019 1:00 PM CDT Office Visit [facility] Family & Internal Medicine [address] [address] Martha Parker, MIKE Follow Up (2 week f/u on lab results, Seen Rn Staffing. ) Social History Tobacco Use Types Packs/Day [...] Reading Time Taken Comments Blood Pressure 132/60 09/07/2019 1:12 PM CDT Pulse 54 09/07/2019 12:59 PM CDT Temperature 37.2 ??C (98.9 ??F) 09/07/2019 12:59 PM C DT Respiratory Rate 18 09/07/2019 12:59 PM CDT Oxygen Saturation 97% 09/07/2019 12:59 PM CDT Inhaled Oxygen Concentration - - Weight 56.7 kg (125 lb) 09/07/2019 12:59 PM CDT Height 160 cm (5' 3 ) 09/07/2019 12:59 PM CDT Body Mass Index 22.14 09/07/2019 12:59 PM CDT documented in this encounter Functional [...] * Patient Instructions* Martha Parker NP - 09/07/2019 1:00 PM CDT Will retest urine in two weeks Will retest TSH in 8 weeks. Return in 2 mo. documented in this encounter Progress Notes * Martha Parker NP - 09/07/2019 1:00 PM CDT Reason for Visit: Follow Up (2 week f/u on lab results, Seen Rn Staffing. ) History of Present Illness: Roxana was seen today for follow up. Diagnoses and all orders for this visit: Urinary tract infection with hematuria, site unspecified - URINALYSIS AUTO DIP will be done when completes the antibiotic. Pt last Culture shows 10,000 to 49,000 enterobacter. 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 Pt has sensitivity prior and shows it is sensitive to the Levoquin but because of the renal failure has had adjustment of the dosing to be continued through September 21. Will then need to have repeat of the UA to make sure infection is gone for the pt. Hypothyroidism, unspecified type - TSH W/REFLEX; Future In review of the last labs, found that the TSH is high and will need to have increase in the dosingof the levothyroxine. Pt is appearing stronger and states is feeling better. Pt is now living with daughter and they are helping with the medication. Today a list of medication will be given to the daughter so she will beable to keep track of the dosing for the pt. The patch driller did discontinue the lasix and make some other changes stopping the potassium as well. ROS: Review of Systems Constitutional: Positive for malaise/fatigue and weight loss. See HPI frail weak fragile elderly female HENT: Positive for hearing loss. Pt has hearing loss Eyes: Positive for blurred vision. Respiratory: Negative. Cardiovascular: Negative for leg swelling. See HPI Gastrointestinal: Negative for heartburn. Denies nausea but has no appetite for food. Pt had Ranitidine stopped while in the hospital because it causes cancer? And famotidine was started not helping Genitourinary: Positive for dysuria. Occasional incontinence urine. Musculoskeletal: Positive for myalgias. Skin: See HPI Hematoma still present on the right hip with healing laceration to the right lower back from the original fall 07/30/2019 Neurological: Positive for weakness. Endo/Heme/Allergies: Diabetes but unsure about control since leaving hospital Psychiatric/Behavioral: Positive for depression and memory loss. The patient is nervous/anxious andhas insomnia. Medications: Current Outpatient Medications: ??? aspirin EC [...] Wednesday and Wednesday., Disp: , Rfl: ??? nystatin cream, Apply topically 2 (two) times daily. (Patient taking differently: Apply 1 each topically 2 (two) times daily. Indications: Genital Rash), Disp: 1 g, Rfl: 0 ??? OMEPRAZOLE 20 MG capsule, TAKE 1 CAPSULE(20 MG) BY MOUTH DAILY, Disp: 90 capsule, Rfl: 0 ??? PRAVASTATIN 40 MG tablet, TAKE 1 TABLET BY MOUTH AT BEDTIME, Disp: 90 tablet, Rfl: 0 ??? sertraline 100 MG tablet, Take 100 mg by mouth every morning. Indications: Depression, Disp: , Rfl: ??? trazodone 50 MG tablet, Take 50 mg by mouth nightly at bedtime. Indications: Disturbed Sleep, Disp: , Rfl: ??? levoFLOXacin (LEVAQUIN) 250 MG tablet, Take 1 tablet (250 mg total) by mouth every other day for 14 days. Indications: Urinary Tract Infection, Disp: 7 tablet, Rfl: 0 ??? POTASSIUM CHLORIDE CR 10 MEQ tablet, TAKE 1 TABLET BY MOUTH DAILY WITH BREAKFAST FOR 10 DAYS (Patient not taking: Reported on 09/06/2019), Disp: 10 tablet, Rfl: 0 Allergies Allergen Reactions ??? [...] file Gets together: Not on file Attends cheondoism service: Not on file Active member of [...] normal. Neck: Normal range of motion. Cardiovascular: Normal rate. An irregularly irregular rhythm present. Murmur heard. Systolic murmur is present [...] affect. Her behavior is normal. Filed Vitals: 09/07/19 1259 09/07/19 1312 BP: 150/60 132/60 Pulse: 54 Resp: 18 Temp: 98.9 ??F (37.2 ??C) TempSrc: Temporal SpO2: 97% Weight: 56.7 kg (125 lb) Height: 5' 3 (1.6 m) Assessment Encounter Diagnose(s) ICD-10-CM ICD-9-CM SNOMED CT(R) 1. Urinary tract infection with hematuria, site unspecified N39.0 599.0 URINARY TRACT INFECTIOUS DISEASE URINALYSIS AUTO DIP R31.9 599.70 2. Hypothyroidism, unspecified type E03.9 244.9 HYPOTHYROIDISM TSH W/REFLEX Recommendations and Plan: Outpatient Encounter Medications as of 09/07/2019 Medication Sig Dispense Refill ??? aspirin EC 81 MG EC tablet Take 81 mg by mouth daily. Indications: Anticoagulant Therapy ??? benazepril 20 MG tablet Take 1 tablet by mouth daily. ??? Cholecalciferol (VITAMIN D) 2000 units Cap Take 2,000 Units by mouth daily. Indications: Nutritional Support ??? donepezil 10 MG Tab Take 10 mg by mouth every morning. Indications: High Blood Pressure Disorder ??? [DISCONTINUED] levoFLOXacin (LEVAQUIN) 250 MG tablet Take 1 tablet (250 mg total) by mouth every other day for 14 days. (Patient taking differently: Take 1 tablet by mouth every other day. Indications: Urinary Tract Infection) 7 tablet 0 ??? levothyroxine 50 MCG tablet Indications: Underactive Thyroid Take 1 tablet (50mcg total) by mouth in the morning on Wednesday and Wednesday. ??? nystatin cream Apply topically 2 (two) times daily. (Patient taking differently: Apply 1 each topically 2 (two) times daily. Indications: Genital Rash) 1 g 0 ??? OMEPRAZOLE 20 MG capsule TAKE 1 CAPSULE(20 MG) BY MOUTH DAILY 90 capsule 0 ??? PRAVASTATIN 40 MG tablet TAKE 1 TABLET BY MOUTH AT BEDTIME 90 tablet 0 ??? sertraline 100 MG tablet Take 100 mg by mouth every morning. Indications: Depression ??? trazodone 50 MG tablet Take 50 mg by mouth nightly at bedtime. Indications: Disturbed Sleep ??? POTASSIUM CHLORIDE CR 10 MEQ tablet TAKE 1 TABLET BY MOUTH DAILY WITH BREAKFAST FOR 10 DAYS (Patient not taking: Reported on 09/06/2019) 10 tablet 0 No facility-administered encounter medications on file as of 09/07/2019. Roxana was seen today for follow up. Diagnoses and all orders for this visit: Urinary tract infection with hematuria, site unspecified - URINALYSIS AUTO DIP Hypothyroidism, unspecified type - TSH W/REFLEX; Future Increase of the medication dose of the thyroid medication. Unsure if pt was taking it but had been put in the town planner. Will retest the pt in 8 weeks and evaluate status Will have the result of the urine test done after completion of the antibiotic. MARTHA PARKER NP 09/09/2019 7:37 PM * Melanie Chavez RN - 09/07/2019 1:00 PM CDT Pt made aware and v/u documented in this encounter Plan of Treatment Not on file documented as of this encounter Goals Goal Patient Goal Type Associated Problems Recent Progress Patient-Stated? Author Improve Home Support System General No Laura Cheatham RN Return home with [facility] home health General No Malgorzata Brown, FIBER DESIGNER HOME WITH DAUGHTER General No Laura Cheatham RN documented as of this encounter Procedures Procedure Name Priority Date/Time Associated Diagnosis Comments URINALYSIS AUTO DIP Routine 09/20/2019 Urinary tract infection with hematuria, site unspecified documented in this encounter Results * (ABNORMAL) TSH W/REFLEX (11/07/2019 2:04 PM CDT) TSH 4.713(H) 0.358 - 3.74 uIU/ML 11/07/2019 5:34 PM CDT [facility] Comment: HIGH DOSES OF BIOTIN MAY INTERFERE WITH THIS TEST RESULT. CORRELATION TO CLINICAL HISTORY AND PRESENTATION RECOMMENDED. 11/07/2019 2:04 PM CDT Martha Parker RESERVES CLERK LABORATORY Final Result [facility] [address] [place] [address], [place] [phone] * URINALYSIS AUTO DIP (09/20/2019) COLOR (U) YELLOW [address] ([address]), [place] TRANSPARENCY CLEAR [address] ([address]), [place] GLUCOSE (U) NEGATIVE NEGATIVE MG/DL [address] ([address]), [place] BILIRUBIN (U) NEGATIVE NEGATIVE [address] ([address]), [place] KETONES MG/DL (U) NEGATIVE NEGATIVE MG/DL [address] ([address]), [place] SPECIFIC GRAVITY (U) 1.020 1.001 - 1.[address] ([address]), [place] BLOOD (U) NEGATIVE NEGATIVE [address] ([address]), [place] U PH 5.0 5.0 - 9.[address] ([address]), [place] PROTEIN (U) NEGATIVE NEGATIVE mg/dL [address] ([address]), [place] UROBILINOGEN 0.2 0.2 - 1.0 EU/dL = mg/dL [address] ([address]), [place] NITRITES NEGATIVE NEGATIVE MG/DL [address] ([address]), [place] LEUKOCYTES (U) NEGATIVE NEGATIVE [address] ([address]), [place] URINE SPECIMEN OBTAINED BY CLEAN CATCH PROCEDURE / Unknown 09/20/2019 Martha Parker RESERVES CLERK URINE ORDERABLES Final Result [address] ([address]), [place] [address] [place] [address], documented in this encounter Visit Diagnoses Diagnosis Urinary tract infection with hematuria, site unspecified- Primary Hypothyroidism, unspecified type documented in this encounter Care Teams Director Instructional Material Relationship Specialty Start Date End Date Noemi Barnard MD [facility]. [address] [address] PCP - General INTERNAL MEDICINE 08/23/18 03/03/23 Joni Mckeon MD [facility]. [address] [address] [place] Rn Staffing CARDIOVASCULAR DISEASE 07/04/18 documented as of this encounter
--- OUTSIDE RECORDS SUMMARY | 2024-04-05 00:18 | XMS_ITS | Encounter Summary ---
Author Organization [facility] Address [address] [place] [address]. [place], [place] [address] [place] [address] Care Team Providers Care Fire Coordinator Name Role Phone Joni Mckeon MD Unavailable [phone] Noemi Barnard MD Primary Care Provider [phone] Encounter Details Date Type Department Care Team (Late st Contact Info) Description 09/01/2019 10:00 AM CDT Home Care Visit [address] [place] [address] Vivian Harrison CNA AIDE HOME VISIT Social History Tobacco Use Types [...] Sign Reading Time Taken Comments Blood Pressure 124/60 09/01/2019 10:15 AM CDT Pulse 64 09/01/2019 10:15 AM CDT Temperature 36.4 ??C (97.5 ??F) 09/01/2019 10:15 AM C DT Respiratory Rate 18 09/01/2019 10:15 AM CDT Oxygen Saturation - - Inhaled [...] Status Yes 08/16/2019 11:28 AM CDT Laila Luajn R N Active documented as of this [...] No Laura Cheatham, RN Return home with [facility] home health General No Malgorzata Brown MSW HOME WITH DAUGHTER General No Laura Cheatham, RN documented as of this encounter Visit Diagnoses Not on filedocumented in this encounter Home Health Visit - Care Plan Visit Details Visit Type -Aide - Home Visi t Discipline -Home Health Aide Problems Problem Description Start Date Status Goals Interve ntions Aide for personal cares/mobility /ADL's Disciplines: Home Health Aide Aide to perform personal cares, mobility, ADL's at the direction of the SN. 07/19/2019 Active 1 goal linked to scheduled/documen ke intervention 6 goal interventions scheduled/document ed in this visit Goals Goal Associated Problem Outcome Goal Met? Visit Notes Hygiene Needs Met with Assist of [employer] Description: Hygiene and safety needs will be met with assist of [employer] by 09/16/19 Client will progress towards increased independence in performance of self cares. Aide for personal cares/mobility/ADL's Met This Shift No Interventions Intervention Associated Problem/Goal Status Variance Visit Notes Aide Communication tool Description: Complete [employer] communication Problem:Aide for personal cares/mobility/ADL's Goal:Hygiene Needs Met with Assist of [employer] Completed Last BM Date: 09/01/19 Shampoo: Yes Bathing: Shower Nail Care: No Clothing change: Yes Bruised, open or red areas: None noted Nurse notified or aware: No Aide Check Last BM Description: Check last BM. Notify RN if last BM longer than 3 days ago Problem:Aide for personal cares/mobility/ADL's Goal:Hygiene Needs Met with Assist of [employer] Completed 09/01/19 Aide inspect skin Description: Inspect skin for signs of pressure or irritation. After bathing reapply moisturizer. Report any observed or patient reported concerns to RN. Problem:Aide for personal cares/mobility/ADL's Goal:Hygiene Needs Met with Assist of [employer] Completed SKIN INTACT Aide transfers Description: Assist with transfers using walker. Problem:Aide for personal cares/mobility/ADL's Goal:Hygiene Needs Met with Assist of [employer] Completed PT WALKED WITH ASSIST WITH WALKER TO AND FROM BATHROOM Aide vitals Description: Obtain blood pressure, pulse, temperature, respirations and pulse oximetry. Notify RN of any significant changes. Vital Signs -report to if: BP: systolic blood pressure <90 or >160; diastolic blood pressure <60 or >90; Temperature: >100.5 F; Pulse: <60 or >100 bpm; Respiratory Rate: <12 or >28 /min; SPO2: <90%. Problem:Aide for personal cares/mobility/ADL's Goal:Hygiene Needs Met with Assist of [employer] Completed VITALS WERE TAKEN AND RECORDED Aide tub/shower bath Description: Assistance with bathing using shower stall. Clean shower after bathing. Problem:Aide for personal cares/mobility/ADL's Goal:Hygiene Needs Met with Assist of [employer] Completed PT WAS GIVEN A SHOWER AND SHAMPOO ON A BATH BENCH, LOTIION WAS APPLIED AND CLEAN CLOTHES WERE PUT ON. documented in this encounter Care Teams Fire Coordinator Relationship Specialty Start Date End Date Noemi Barnard MD [address] [address] PCP - General INTERNAL MEDICINE 08/23/18 03/03/23 Joni Mckeon MD [address] [address] [place] Offal Separator CARDIOVASCULAR DISEASE 07/04/18 documented as of this encounter
--- OUTSIDE RECORDS SUMMARY | 2024-04-05 00:18 | XMS_ITS | Encounter Summary ---
Author Organization [facility] Address [address] [place] [address]. [place], [place] [address] [place] [address] Care Team Providers Care Control Clerk Head Name Role Phone Joni Mckeon MD Unavailable [phone] Noemi Barnard MD Primary Care Provider [phone] Encounter Details Date Type Department Care Team (Late st Contact Info) Description 08/31/2019 Orders Only [facility] Family & Internal Medicine [address] [address] Martha Ruiz, LABOR TRAINER Social History Tobacco Use Types Packs/Day Years [...] have Coronavirus / COVID-19? No / Unsure 08/30/2019 1:49 PM CDT documented as of this [...] Laura Cheatham, RN Return home with [facility] home health General No Malgorzata Brown KENNEL HELPER HOME WITH DAUGHTER General No Laura Cheatham, RN documented as of this encounter Visit Diagnoses Diagnosis Essential hypertension- Primary Unspecified essential hypertension Type 2 diabetes mellitus with stage 3 chronic kidney disease, without long-term current use of insulin ([facility] Mixed hyperlipidemia Hypothyroidism, unspecified type documented in this encounter Care Teams Control Clerk Head Relationship Specialty Start Date End Date Noemi Barnard MD [address] [address] PCP - General INTERNAL MEDICINE 08/23/18 03/03/23 Joni Mckeon MD [facility] [address] [place] [address] [place] Organizational Development Director CARDIOVASCULAR DISEASE 07/04/18 documented as of this encounter
--- OUTSIDE RECORDS SUMMARY | 2024-04-05 00:18 | XMS_ITS | Encounter Summary ---
Author Organization [facility] Address [address] [place] [address]. [place], [place] [address] [place] [address] Care Team Providers Care Fiber Designer Name Role Phone Joni Mckeon MD Unavailable Noemi Barnard MD Primary Care Provider [phone] Encounter Details Date Type Department Care Team (Latest Contact Info) Description 09/01/2019 Travel Social History Tobacco Use Types Packs/Day [...] No Laura Cheatham, RN Return home with [facility] home health General No Malgorzata Brown MSW HOME WITH DAUGHTER General No Laura Cheatham, RN documented as of this encounter Visit Diagnoses Not on filedocumented in this encounter Care Teams Fiber Designer Relationship Specialty Start Date End Date Noemi Barnard MD [facility]. [address] [address] PCP - General INTERNAL MEDICINE 08/23/18 03/03/23 Joni Mckeon MD [facility]. [facility] [address] [place] [address] [place] Specialty Therapist CARDIOVASCULAR DISEASE 07/04/18 documented as of this encounter
--- OUTSIDE RECORDS SUMMARY | 2024-04-05 00:18 | XMS_ITS | Encounter Summary ---
Author Organization [facility] Address [address] [place] [address]. [place], [place] [address] [place] [address] Care Team Providers Care Superior Court Clerk Name Role Phone Joni Mckeon MD Unavailable [phone] Noemi Barnard MD Primary Care Provider [phone] Encounter Details Date Type Department Care Team (Latest Contact Info) Description 09/05/2019 10:25 AM CDT - 09/05/2019 11:59 PM CDT Hospital Encounter [facility] [address] [place], [place] [id number] Martha Ruiz, MIKE Discharge Disposition: Home or [...] Author Status No 08/16/2019 11:28 AM CDT Lalia Lujan R N Active documented in this encounter Medications at Time of Discharge aspirin EC 81 MG EC tabletIndications :Anticoagulant Therapy Take 81 mg by mouth daily. Indications: Anticoagulant Therapy 01/03/2018 Cholecalciferol (VITAMIN D) 2000 units CapIndications:Nu tritional Support Take 2,000 Units by mouth daily. Indications: Nutritional Support 01/03/2018 donepezil 10 MG Tab Take two tabs PO QAM 08/17/2019 sertraline 100 MG tabletIndications :Depression Take 100 mg by mouth every morning. Indications: Depression 08/17/2019 benazepril 20 MG tablet Take 1 tablet by mouth daily. 06/20/2019 01/23/20 20 levoFLOXacin (LEVAQUIN) 250 MG tabletIndications :UTI (urinary tract infection) [The details of the medication are not available because there are pending changes by a home health clinician.] 7 tablet 08/29/2019 06/05/20 20 levothyroxine 50 MCG tabletIndications :Hypothyroidism Indications: Underactive Thyroid Take 1 tablet (50mcg total) by mouth in the morning on Wednesday and Wednesday. 03/08/2019 11/08/19 20 nystatin cream [The details of the medication are not available because there are pending changes by a home health clinician.] 1 g 08/16/2019 09/20/19 20 OMEPRAZOLE 20 MG capsuleIndication s:Gastroesophagea l reflux disease with esophagitis TAKE 1 CAPSULE(20 MG) BY MOUTH DAILY 90 capsule 08/25/2019 12/05/19 20 POTASSIUM CHLORIDE CR 10 MEQ tabletIndications :Essential hypertension TAKE 1 TABLET BY MOUTH DAILY WITH BREAKFAST FOR 10 DAYS 10 tablet 08/24/2019 09/20/19 20 PRAVASTATIN 40 MG tabletIndications :Hyperlipidemia TAKE 1 TABLET BY MOUTH AT BEDTIME 90 tablet 05/15/2019 09/20/19 20 trazodone 50 MG tabletIndications :Sleep Disturbance Take 50 mg by mouth nightly at bedtime. Indications: Disturbed Sleep 08/17/2019 10/17/19 20 documented as of this encounter Plan of Treatment Not on file documented as of this encounter Goals Goal Patient Goal Type Associated Problems Recent Progress Patient-Stated? Author Improve Home Support System General Laura Akbar, RN Return home with [facility] home health General Malgorzata Mchugh, LENS ENGRAVER HOME WITH DAUGHTER General Laura Akbar, RN documented as of this encounter Procedures Procedure Name Priority Date/Time Associated Diagnosis Comments BASIC METABOLIC PANEL Routine 09/05/2019 9:40 AM CDT Bacteremia Hypothyroid Hypertension Diabetes mellitus ([facility]) CBC W/DIFF AUTOMATED Routine 09/05/2019 9:40 AM CDT Bacteremia Hypothyroid Hypertension Diabetes mellitus ([facility]) THYROID STIM HORMONE TSH Routine 09/05/2019 9:40 AM CDT Bacteremia Hypothyroid Hypertension Diabetes mellitus ([facility]) documented in this encounter Results * (ABNORMAL) BASIC METABOLIC PANEL (09/05/2019 9:40 AM CDT) GLUCOSE 132(H) 70 - 99 MG/DL 09/05/2019 10:52 AM [facility] BUN 14 7 - 18 MG/DL 09/05/2019 10:52 AM [facility] CREATININE S/P/B 1.13(H) 0.55 - 1.02 MG/DL 09/05/2019 10:52 AM [facility] SODIUM S/P/B 140 136 - 145 MMOL/L 09/05/2019 10:52 AM [facility] POTASSIUM S/P/B 3.9 3.5 - 5.1 MMOL/L 09/05/2019 10:52 AM [facility] CHLORIDE S/P/B 105 100 - 108 MMOL/L 09/05/2019 10:52 AM [facility] CO2 28.5 21 - 32 MMOL/L 09/05/2019 10:52 AM [facility] CALCIUM S/P/B 8.9 8.5 - 10.1 MG/DL 09/05/2019 10:52 AM [facility] ANION GAP 6.5 5 - 15 MMOL/L 09/05/2019 10:52 AM [facility] BUN CREATININE RATIO 12.4 6 - 26 09/05/2019 10:52 AM [facility] EGFR NON-AFR. AMER. 45(L) >90 ML/MIN/1.7 3 M2 09/05/2019 10:52 AM [facility] EGFR AFR. AMER. 52(L) >90 ML/MIN/1.7 3 M2 09/05/2019 10:52 AM [facility] Comment: NOTE: eGFR is not calculated for patients <18 years of age. This is an estimated GFR (CKD EPI) and should not be used for calculating drug doses. 09/05/2019 9:40 AM CDT Martha Ruiz NP LABORATORY Final Result [facility] [address] [place] [id number], * (ABNORMAL) CBC W/DIFF AUTOMATED (09/05/2019 9:40 AM CDT) WBC 3.9(L) 4.4 - 11.0 x10'3/uL 09/05/2019 10:38 AM CDT [facility] RBC 3.83(L) 4.50 - 5.10 x10'6/uL 09/05/2019 10:38 AM CDT [facility] HGB 11.2(L) 12.3 - 15.3 G/DL 09/05/2019 10:38 AM CDT [facility] HCT 34.5(L) 35.9 - 44.6 % 09/05/2019 10:38 AM CDT [facility] MCV 90.1 80.0 - 96.0 FL 09/05/2019 10:38 AM CDT [facility] MCH 29.2 25.3 - 30.9 PG 09/05/2019 10:38 AM CDT [facility] MCHC 32.5 31.0 - 34.1 G/DL 09/05/2019 10:38 AM T [facility] RDW 14.6 12.4 - 15.1 % 09/05/2019 10:38 AM CDT [facility] PLT 157 151 - 353 x10'3/uL 09/05/2019 10:38 AM CDT [facility] MPV 10.0 9.6 - 12.0 FL 09/05/2019 10:38 AM CDT [facility] RBC MORPHOLOGY NORMAL 09/05/2019 10:38 AM CDT [facility] PLT MORPH. NORMAL 09/05/2019 10:38 AM CDT [facility] WBC MORPHOLOGY NORMAL 09/05/2019 10:38 AM CDT [facility] LYMPHOCYTES % 11.2(L) 15.8 - 45.0 % 09/05/2019 10:39 AM CDT [facility] NEUTROPHILS % 80.2(H) 42.1 - 71.9 % 09/05/2019 10:39 AM CDT [facility] MONOCYTES % 6.8 5.7 - 12.5 % 09/05/2019 10:39 AM CDT [facility] EOSINOPHILS 1.0 0.0 - 5.6 % 09/05/2019 10:39 AM CDT [facility] BASOPHILS 0.5 0.0 - 1.3 % 09/05/2019 10:39 AM CDT [facility] ABS. NEUTROPHILS TOTAL 3.09 1.40 - 6.00 x10'3/uL 09/05/2019 10:39 AM CDT [facility] IMMATURE GRANS % 0.3 0.0 - 0.5 % 09/05/2019 10:39 AM CDT [facility] ABS. LYMPHOCYTES 0.43(L) 0.80 - 4.70 x10'3/uL 09/05/2019 10:39 AM T [facility] 09/05/2019 9:40 AM CDT us Martha Ruiz NP LABORATORY Final Result [facility] [address] [place] [address], * (ABNORMAL) THYROID STIM HORMONE, TSH (09/05/2019 9:40 AM CDT) TSH 6.539(H) 0.358 - 3.74 uIU/ML 09/05/2019 10:52 AM CDT [facility] Comment: HIGH DOSES OF BIOTIN MAY INTERFERE WITH THIS TEST RESULT. CORRELATION TO CLINICAL HISTORY AND PRESENTATION RECOMMENDED. 09/05/2019 9:40 AM CDT Martha Ruiz NP LABORATORY Final Result [facility] [address] [place] [address], documented in this encounter Visit Diagnoses Diagnosis Bacteremia Hypothyroid Unspecified hypothyroidism Hypertension Unspecified essential hypertension Diabetes mellitus ([facility]) Type II or unspecified type diabetes mellitus without mention of complication, not stated as uncontrolled documented in this encounter Care Teams Superior Court Clerk Relationship Specialty Start Date End Date Noemi Barnard MD [facility]. [address] [address] PCP - General INTERNAL MEDICINE 08/23/18 03/03/23 Joni Mckeon MD [facility]. [address] [address] [place] Director Of Quality CARDIOVASCULAR DISEASE 07/04/18 documented as of this encounter
--- OUTSIDE RECORDS SUMMARY | 2024-04-05 00:18 | XMS_ITS | Encounter Summary ---
Author Organization [facility] Address [address] [place] [address]. [place], [place] [address] [place] [address] Care Team Providers Care Glass Breaker Name Role Phone Joni Mckeon MD Unavailable [phone] Noemi Barnard MD Primary Care Provider [phone] Encounter Details Date Type Department Care Team (Latest Contact Info) Description 08/28/2019 Travel Social History Tobacco Use Types Packs/Day [...] have Coronavirus / COVID-19? No / Unsure 08/28/2019 10:00 AM CDT documented as of this encounter [...] on filedocumented in this encounter Care Teams Glass Breaker Relationship Specialty Start Date End Date Noemi Barnard MD [facility]. [address] [address] PCP - General INTERNAL MEDICINE 08/23/18 03/03/23 Joni Mckeon MD Three [facility]. [facility] [address] [place] [address] [employer] CARDIOVASCULAR DISEASE 07/04/18 documented as of this encounter
--- OUTSIDE RECORDS SUMMARY | 2024-04-05 00:18 | XMS_ITS | Encounter Summary ---
Author Organization [facility] Address [address] [place] [address]. [place], [place] [id number] [place] [address] Care Team Providers Care Data Integrity Consultant Name Role Phone Joni Mckeon MD Unavailable [phone] Noemi Barnard MD Primary Care Provider [phone] Encounter Details Date Type Department Care Team (Late st Contact Info) Description 09/01/2019 9:15 AM CDT Home Care Visit [address] [place] [address] Juanis Lewis LPN SN HOME VISIT Social History Tobacco Use [...] Sign Reading Time Taken Comments Blood Pressure 100/50 09/01/2019 9:19 AM CDT Pulse 70 09/01/2019 9:19 AM CDT Temperature 36.1 ??C (96.9 ??F) 09/01/2019 9:19 AM CD T Respiratory Rate 18 09/01/2019 9:19 AM CDT Oxygen Saturation - - Inhaled [...] Visit Type -SN - Home Visit Discipline -Assisted Problems Problem Description Start Date Status Goals Interve ntions Discharge Planning Disciplines: Assisted Discharge Planning 07/19/2019 Active 1 goal linked to scheduled/docume nted intervention 1 goal intervention scheduled/documen ke in this visit Care Coordination Disciplines: Assisted Management and coordination of patient care 07/19/2019 Active 1 goal linked to scheduled/docume nted intervention 2 goal interventions scheduled/documen ke in this visit Homebound Status Disciplines: Assisted Patient meets requirements of homebound status 07/19/2019 Active 1 goal linked to scheduled/docume nted intervention A Plan for Next Visit Disciplines: Assisted Plan for next visit 07/19/2019 Active 1 goal linked to scheduled/docume nted intervention 1 goal intervention scheduled/documen ke in this visit Home Safety Disciplines: Assisted Management and evaluation of patient's home environment 07/19/2019 Active 1 goal linked to scheduled/docume nted intervention 4 goal interventions scheduled/documen ke in this visit Medications Disciplines: Assisted Management of home medications 07/19/2019 Active 1 goal linked to scheduled/docume nted intervention 3 goal interventions scheduled/documen ke in this visit Management and Evaluation of the Care Plan Disciplines: Assisted SN for management and evaluation of skilled services 07/19/2019 Active 1 goal linked to scheduled/docume nted intervention 1 goal intervention scheduled/documen ke in this visit Skilled Observation and Assessment Disciplines: Assisted Skilled O & A as specified by the physician 07/19/2019 Active 1 goal linked to scheduled/docume nted intervention 2 problem interventions scheduled/documen ke in this visit Nutritional concerns Disciplines: Assisted Inadequate/imbala nced nutritional concerns 08/02/2019 Active 1 goal linked to scheduled/docume nted intervention 1 goal intervention scheduled/documen ke in this visit Goals Goal Associated Problem Outcome Goal Met? Visit Notes Progress towards discharge Description: Documentation of ongoing progress towards goals through 09/16/19 Discharge Planning Met This Shift No Coordination of Care Achieved Description: Coordination of care will be achieved by / through 09/16/2019 Care Coordination Met This Shift No Patient meets homebound requirements Description: Patient meets requirements of homebound status as evidenced by taxing effort to enter and exit home, must have someone provide transportation, memory impairment and uses walker to ambulate. Homebound Status Met This Shift No Provide Continuity of Care Description: To provide continuity of care A Plan for Next Visit Met This Shift No Remain Safe in Home Description: Patient [...] functioning by 09/16/2019 Nutritional concerns Progressing No Interventions Intervention Associated Problem/Goal Status Variance Visit Notes Plan Towards Discharge Description: Document patient progress towards discharge. Problem:Discharge Planning Goal:Progress towards discharge Completed Care Plan Collaboration Description: Care Plan Collaboration Problem:Care Coordination Goal:Coordination of Care Achieved Completed Care plan updates: None this visit. Care Coordination Description: Clinician to review care [...] of Medication Regimen Completed Medication reconciliation performed without weekly bottle check. Skilled assessment medications Description: [...] Completed documented in this encounter Care Teams Data Integrity Consultant Relationship Specialty Start Date End Date Noemi Barnard MD [address] [address] PCP - General INTERNAL MEDICINE 08/23/18 03/03/23 Joni Mckeon MD [facility]. [address] [address] [place] Sewing Machine Operator S[employer]utomatic CARDIOVASCULAR DISEASE 07/04/18 documented as of this encounter
--- OUTSIDE RECORDS SUMMARY | 2024-04-05 00:18 | XMS_ITS | Encounter Summary ---
Author Organization [facility] Address [facility] [place] [address] [place] [address] Care Team Providers Care Associate Pastor Name Role Phone Josep Mckeon MD Unavailable [phone] Noemi Barnard MD Primary Care Provider [phone] Reason for Visit * Reason Onset Date Comments Concerns 09/04/2019 travel screen Encounter Details Date Type Department Care Team (Late st Contact Info) Description 09/04/2019 Telephone [facility] at [facility], [address] [address] Josep Mckeon MD [facility]. [facility] [address] [place], [place] [id number] Concerns (travel screen) Social History Tobacco Use Types Packs/Day Years [...] documented in this encounter Progress Notes * Stormy Jessica MA - 09/04/2019 10:33 AM CDT Outreach travel screening. Spoke with Roxana Ch regarding his upcoming appointment with JOSEP MCKEON MD. Been in contact with someone who was sick? no Experienced any type of fever? no New respiratory issues? no New shortness of breath? no Severe headache with any above symptoms? no documented in this encounter Plan of Treatment Not on file documented as of this encounter Goals Goal Patient Goal Type Associated Problems Recent Progress Patient-Stated? Author Improve Home Support System General No Laura Cheatham, RN Return home with [facility] home health General No Malgorzata Brown, METAL FURNITURE REPAIRER HOME WITH DAUGHTER General No Laura Cheatham RN documented as of this encounter Visit Diagnoses Not on filedocumented in this encounter Care Teams Associate Pastor Relationship Specialty Start Date End Date Noemi Barnard MD [facility]. [address] [address] PCP - General INTERNAL MEDICINE 08/23/18 03/03/23 Josep Mckeon MD [address] [facility]. [address] [address] [place] [employer] CARDIOVASCULAR DISEASE 07/04/18 documented as of this encounter
--- OUTSIDE RECORDS SUMMARY | 2024-04-05 00:18 | XMS_ITS | Encounter Summary ---
Author Organization [facility] Address [address] [place] [address]. [place] [address] [place] [address] Care Team Providers Care Wildlife Officer Name Role Phone Josep Mckeon MD Unavailable [phone] Noemi Jade MD Primary Care Provider Reason for Visit * Reason Comments Coronary Artery Disease Hypertension Lipids Encounter Details Date Type Department Care Team (Late st Contact Info) Description 09/06/2019 10:15 AM CDT Office Visit [facility] [id number] [place] [address] [phone] Josep Mckeon MD [address] [address] Coronary Artery Disease; Hypertension; Lipids Social History Tobacco Use Types Packs/Day Years [...] Reading Time Taken Comments Blood Pressure 130/60 09/06/2019 9:49 AM CDT Pulse 77 09/06/2019 9:49 AM CDT Temperature - - Respiratory Rate - - Oxygen Saturation - - Inhaled Oxygen Concentration - - Weight 54.9 kg (121 lb) 09/06/2019 9:49 AM CDT Height 160 cm (5' 3 ) 09/06/2019 9:49 AM CDT Body Mass Index 21.43 09/06/2019 9:49 AM CDT documented in this encounter Functional [...] Author Status No 08/16/2019 11:28 AM CDT Laial Lujan R N Active * Because of [...] Instructions * Patient Instructions* Treasure Mojica - 09/06/2019 10:15 AM CDT Images from the original note were not included. Patient Education Patient Education Coronary Heart Disease The Basics Written by the doctors and editors at [facility] What is coronary artery disease???--??Coronary artery [...] process is complete. This topic retrieved from [employer] on: Jul 03, 2019. Topic 78361 Version 22.0 Release: 28.2.2 - C28.105 ?2019??[employer] and/or its affiliates.??All rights reserved. figure 1: Coronary heart disease In people with coronary heart disease, the coronary arteries get clogged with fatty deposits calledplaques. Graphic 06388 Version 5.0 figure 2: Heart attack symptoms [...] to get yourself to the hospital. Graphic 07462 Version 1.0 figure 3: Coronary artery bypass [...] can come from other places, too. Graphic 24474 Version 5.0 Consumer Information Use and Disclaimer [...] that is right for you.The use of [employer] content is governed by the [employer] Terms of Use. ??2020 [employer]. All rights reserved. Copyright ?2020??[employer] and/or its affiliates.??All rights reserved. documented in this encounter Progress Notes * Josep Mckeon MD - 09/06/2019 10:15 AM CDT * Josep Mckeon MD - 09/06/2019 10:15 AM CDT Reason for Visit: Coronary Artery Disease; Hypertension; and Lipids REASON FOR FOLLOWUP: Coronary artery disease. HISTORY OF PRESENT ILLNESS: This is a complex 84-year-old woman who has a history of nonobstructivecoronary artery disease, hypertension who presents for followup today Clinically, the patient has been doing relatively well. Denies any chest pain, no shortness of breath, no PND, no orthopnea. She is compliant with her medications. She is being followed in pulmonary. Patient has had difficult time recently. She has had several hospitalizations. She is had problems with urinary tract infections. Patient has had problems with volume overload. Patient is weak. She has been losing weight. She has no specific cardiopulmonary complaints other than occasional palpitations. I reviewed the patient's pill bottle current medications aspirin 81 mg, vitamin D, Aricept, Synthroid 50 mcg, omeprazole 20 mg, pravastatin 40 mg, benazepril 20 mg completing a course of levofloxacin. Patient's potassium and Lasix has been stopped. nclear whether she is taking sertraline and trazodone at this point. She may have a new prescription is going to be started. The patient's heart catheterization showed approximately 40% LAD stenosis. Prior echocardiogram demonstrated normal left ventricular size and function with mild tricuspid regurgitation. Patient has no other significant complaints. She is otherwise doing well. IMPRESSION AND RECOMMENDATION: 1. Coronary artery disease. Continue risk factor modification 2. Pretension: Blood pressures reasonably well-controlled. Given patient's difficult time recently I be inclined to allow her blood pressure a little bit higher conservative management continue benazepril. 3. Edema patient has some very mild edema. She can come to see us in approximately 2 weeks we will reassess her at that time. I advised her to ensure that she is eating 3 meals a day. She will be checking her blood pressure daily. Medications: Current Outpatient Medications: ??? aspirin EC 81 MG EC tablet, Take 81 mg by mouth daily. Indications: Anticoagulant Therapy, Disp: , Rfl: ??? Cholecalciferol (VITAMIN D) 2000 units Cap, Take 2,000 Units by mouth daily. Indications: Nutritional Support, Disp: , Rfl: ??? donepezil 10 MG Tab, Take 10 mg by mouth every morning. Indications: High Blood Pressure Disorder, Disp: , Rfl: ??? levoFLOXacin (LEVAQUIN) 250 MG tablet, Take 1 tablet (250 mg total) by mouth every other day for 14 days. (Patient taking differently: Take 1 tablet by mouth every other day. Indications: UrinaryTract Infection), Disp: 7 tablet, Rfl: 0 ??? levothyroxine 50 MCG tablet, Indications: Underactive Thyroid Take 1 tablet (50mcg total) by mouth in the morning on Wednesday and Wednesday., Disp: , Rfl: ??? nystatin cream, Apply topically 2 (two) times daily. (Patient taking differently: Apply 1 each topically 2 (two) times daily. Indications: Genital Rash), Disp: 1 g, Rfl: 0 ??? PRAVASTATIN 40 MG tablet, TAKE 1 TABLET BY MOUTH AT BEDTIME (Patient taking differently: Take 40 mg by mouth nightly at bedtime. For hyperlipidemia), Disp: 90 tablet, Rfl: 0 ??? sertraline 100 MG tablet, Take 100 mg by mouth every morning. Indications: Depression, Disp: , Rfl: ??? trazodone 50 MG tablet, Take 50 mg by mouth nightly at bedtime. Indications: Disturbed Sleep, Disp: , Rfl: ??? benazepril 20 MG tablet, Take 1 tablet by mouth daily., Disp: , Rfl: ??? OMEPRAZOLE 20 MG capsule, TAKE 1 CAPSULE(20 MG) BY MOUTH DAILY, Disp: 90 capsule, Rfl: 0 ??? POTASSIUM CHLORIDE CR 10 [...] new or significant memory loss. Filed Vitals: 09/06/19 0949 BP: 130/60 Pulse: 77 Weight: 54.9 kg (121 lb) Height: 5' 3 (1.6 m) Body mass index is 21.43 kg/m??. Physical Exam Rate/Rhythm: regular rhythm and [...] no kyphosis normal ROM Cardiovascular Comments: Diagnoses/Impression: 1. Heart palpitations ELECTROCARDIOGRAM (NON MIDMARK ACQUIRED) 2. Mixed hyperlipidemia Referring Provider: No ref. provider found PCP: NOEMI JADE MD documented in this encounter Plan of Treatment Not on file documented as of this encounter Goals Goal Patient Goal Type Associated Problems Recent Progress Patient-Stated? Author Improve [facility] Support System General No Laura Cheatham, RN Return home with [facility] home health General No Malgorzata Brown, SENIOR CREDIT OFFICER HOME WITH DAUGHTER General No Laura Cheatham, RN documented as of this encounter Procedures Procedure Name Priority Date/Time Associated Diagnosis Comments ELECTROCARDIOGRAM (NON MIDMARK ACQUIRED) Routine 09/06/2019 10:07 AM CDT Heart palpitations documented in this encounter Results * ELECTROCARDIOGRAM (09/06/2019 10:07 AM CDT) 09/06/2019 10:0 7 AM CDT Narrative [facility] - 09/11/2019 7:00 PM CDT ?[facility], [facility] ? Test Date: ?2019-09-06 Pat Name: ? ROXANA RITCHIE ?Department: ? Room: ? Gender: ? Female ? Mental Telepathist: ?? kd : ?1935 ? Requested By: JOSEP MCKEON Order Number: [id number] ?Reading MD: ?? Josep Mckeon ? Measurements Intervals ?[place] ? Rate: ? 58 ? P: ?44 NM: ? 208 ?QRS: ?4 QRSD: ? 131 ?T: ?0 QT: ? 419 ? QTc: ?412 ? Interpretive Statements SINUS BRADYCARDIA WITH FREQUENT SUPRAVENTRICULAR PREMATURE COMPLEXES RIGHT BUNDLE BRANCH BLOCK POSSIBLE ANTERIOR MYOCARDIAL INFARCTION, OF INDETERMINATE AGE Procedure Note Josep Mckeon MD - 09/11/2019 [facility] Test Date: 2019-09-06 Pat Name: ROXANA RITCHIE Department: Room: Gender: Female Mental Telepathist: nanette : 1935 Requested By: JOSEP MCKEON Order Number: [id number] Reading MD: Josep Mckeon Measurements Intervals [place] Rate: 58 P: 44 NM: 208 QRS: 4 QRSD: 131 T: 0 QT: 419 QTc: 412 Interpretive Statements SINUS BRADYCARDIA WITH FREQUENT SUPRAVENTRICULAR PREMATURE COMPLEXES RIGHT BUNDLE BRANCH BLOCK POSSIBLE ANTERIOR MYOCARDIAL INFARCTION, OF INDETERMINATE AGE us Josep Mckeon MD PROCEDURES-ORDERABLE NO CHARGE Final Result [facility] [address] [place] [address] documented in this encounter Visit Diagnoses Diagnosis Heart palpitations- Primary Palpitations Mixed hyperlipidemia Essential hypertension Unspecified essential hypertension Edema, unspecified type documented in this encounter Care Teams Wildlife Officer Relationship Specialty Start Date End Date Noemi Jade MD Three [facility]. [address] [address] PCP - General INTERNAL MEDICINE 08/23/18 03/03/23 Josep Mckeon MD Three [facility]. [address] [address] Christopher Medicaid Specialist CARDIOVASCULAR DISEASE 07/04/18 documented as of this encounter
--- OUTSIDE RECORDS SUMMARY | 2024-04-05 00:18 | XMS_ITS | Encounter Summary ---
Author Organization [facility] Address [address] [place] [address]. [place], [place] [address] [place] [address] Care Team Providers Care Senior Cytogenetic Technologist Name Role Phone Joni Mckeon MD Unavailable [phone] Noemi Barnard MD Primary Care Provider [phone] Encounter Details Date Type Department Care Team (Latest Contact Info) Description 08/28/2019 10:00 AM CDT - 08/28/2019 11:59 PM CDT Hospital Encounter [facility] [address] [place], [place] [id number] Martha Ruiz, MIKE Discharge Disposition: Home or [...] tablet by mouth daily. 06/20/2019 01/23/20 20 levothyroxine 50 MCG tabletIndications :Hypothyroidism Indications: [...] at bedtime. Indications: Disturbed Sleep 08/17/2019 10/17/19 documented as of this encounter Plan of Treatment Not on file documented as of this encounter Goals Goal Patient Goal Type Associated Problems Recent Progress Patient-Stated? Author Improve [facility] Support System General Laura Akbar, KAILEE Return home with [facility] home health General No Malgorzata Brown MSW HOME WITH DAUGHTER General No Laura Cheatham RN documented as of this encounter Procedures Procedure Name Priority Date/Time Associated Diagnosis Comments BASIC METABOLIC PANEL Routine 08/28/2019 10:08 AM CDT Dehydration documented in this encounter Results * (ABNORMAL) BASIC METABOLIC PANEL (08/28/2019 10:08 AM CDT) GLUCOSE 199(H) 70 - 99 MG/DL 08/28/2019 10:36 AM CDT [facility] BUN 17 7 - 18 MG/DL 08/28/2019 10:36 AM CDT [facility] CREATININE S/P/B 1.22(H) 0.55 - 1.02 MG/DL 08/28/2019 10:36 AM CDT [facility] SODIUM S/P/B 138 136 - 145 MMOL/L 08/28/2019 10:36 AM CDT [facility] POTASSIUM S/P/B 3.9 3.5 - 5.1 MMOL/L 08/28/2019 10:36 AM CDT [facility] CHLORIDE S/P/B 102 100 - 108 MMOL/L 08/28/2019 10:36 AM CDT [facility] CO2 27.4 21 - 32 MMOL/L 08/28/2019 10:36 AM CDT [facility] CALCIUM S/P/B 8.9 8.5 - 10.1 MG/DL 08/28/2019 10:36 AM CDT [facility] ANION GAP 8.6 5 - 15 MMOL/L 08/28/2019 10:36 AM CDT [facility] BUN CREATININE RATIO 13.9 6 - 26 08/28/2019 10:36 AM CDT [facility] EGFR NON-AFR. AMER. 41(L) >90 ML/MIN/1.7 3 M2 08/28/2019 10:36 AM T [facility] EGFR AFR. AMER. 47(L) >90 ML/MIN/1.7 3 M2 08/28/2019 10:36 AM T [facility] Comment: NOTE: eGFR is not calculated for patients <18 years of age. This is an estimated GFR (CKD EPI) and should not be used for calculating drug doses. 08/28/2019 10:0 8 AM CDT Martha Ruiz DIRECTOR [facility] Final Result [facility] [address] [place] [address], documented in this encounter Visit Diagnoses Diagnosis Dehydration documented in this encounter Care Teams Senior Cytogenetic Technologist Relationship Specialty Start Date End Date Noemi Barnard MD [facility]. [address] [address] PCP - General INTERNAL MEDICINE 08/23/18 03/03/23 Joni Mckeon MD Three [facility]. [address] [address] Wingate Nurse Emergency CARDIOVASCULAR DISEASE 07/04/18 documented as of this encounter
--- OUTSIDE RECORDS SUMMARY | 2024-04-05 00:18 | XMS_ITS | Encounter Summary ---
Author Organization [facility] Address [address] [place] [address]. [place], [place] [address] [place] [address] Care Team Providers Care Director Of Intelligence Name Role Phone Joni Mckeon MD Unavailable [phone] Noemi Barnard MD Primary Care Provider [phone] Reason for Visit * Reason Onset Date Comments Question 08/29/2019 Encounter Details Date Type Department Care Team (Late st Contact Info) Description 08/29/2019 Telephone [facility] Family & Internal Medicine [address] [address] Martha Ruiz, EMU FARM WORKER Question Social History Tobacco Use Types Packs/Day [...] Progress Notes * Nuha Ruiz RN - 08/29/2019 2:09 PM CDT Spoke to Roxana & informed that she will need to call office since he is the one who told her to increase her water pill, v/u. * Ana Laura Rueda - 08/29/2019 2:00 PM CDT Pt CB# [phone] Pt wanting to know if she should take te extra water pill her DR. Mckeon Told her to he told her that is would lower her b/p And she states it is low. Please Call documented in this encounter Plan of Treatment Not on file documented as of this encounter Goals Goal Patient Goal Type Associated Problems Recent Progress Patient-Stated? Author Improve Home Support System General No Laura Cheatham, RN Return home with [facility] home health General No IzzyoneilMalgorzata, HEAD AUTOMATIC SAWYER HOME WITH DAUGHTER General No Laura Cheatham, RN documented as of this encounter Visit Diagnoses Not on filedocumented in this encounter Care Teams Director Of Intelligence Relationship Specialty Start Date End Date Noemi Barnard MD [address] [address] PCP - General INTERNAL MEDICINE 08/23/18 03/03/23 Joni Mckeon MD [address] [address] Christopher Typing Pool Supervisor CARDIOVASCULAR DISEASE 07/04/18 documented as of this encounter
--- OUTSIDE RECORDS SUMMARY | 2024-04-05 00:18 | XMS_ITS | Encounter Summary ---
Author Organization [facility] Address [address] [place] [address]. [place], [place] [address] [place] [address] Care Team Providers Care Nursing Student Name Role Phone Joni Mckeon MD Unavailable [phone] Noemi Barnard MD Primary Care Provider [phone] Encounter Details Date Type Department Care Team (Late st Contact Info) Description 08/25/2019 4:00 PM CDT Home Care Visit [address] [place] [address] Mekhi Falk, CARPENTER MAINTENANCE [address] [place] [address] CARPENTER MAINTENANCE HOME VISIT Social History Tobacco Use Types [...] have Coronavirus / COVID-19? No / Unsure 08/24/2019 8:38 PM CDT documented as of this encounter Last Filed Vital Signs Vital Sign Reading Time Taken Comments Blood Pressure 120/70 08/25/2019 4:05 PM CDT Pulse 56 08/25/2019 4:05 PM CDT Temperature 35.8 ??C (96.5 ??F) 08/25/2019 4:05 PM CD T Respiratory Rate 18 08/25/2019 4:05 PM CDT Oxygen Saturation - - Inhaled Oxygen [...] General No Malgorzata Brown MSW HOME WITH [facility] General No Laura Cheatham, RN documented as of this encounter Visit Diagnoses Not on filedocumented in this encounter Home Health Visit - Care Plan Visit Details Visit Type -CARPENTER MAINTENANCE - Home Visit Discipline -Physical Therapy Problems [...] changes or concerns reported to supervising therapist, business case analyst, and or provider through plan of care. [...] Problem:Care Coordination Goal:Coordination of Care/Interpretive Services Completed read eval from Barbie Morel PT Plan for Next Visit Description: Next visit [...] AND KITCHEN Therapies - Vitals Description: PT, business case analyst or physician to be contacted if pulse [...] Training Goal:PT Gait Training Completed Patient ambulated 60' and 200' with use of FWW and SBA. CARPENTER MAINTENANCE adjusted height of FWW to appropriate height. Patient reports improved comfort during ambulation with proper height. Standing rest break required during ambulaiton of 200' and sitting rest break after ambulation due to fatigue. Therapies - Therapeutic Exercise Description: HEP for BLE strength and activity tolerance improvements Problem:PT Therapeutic Exercise Goal:PT Therapeutic Exercise Completed Patient performed LAQ, hip flexion, hip ABD, and PF/DF x 10 bilaterally in sitting. Patient required visual cues for initiation of exercises. Noticeable decrease in ROM of left LE due to weakness. No c/o pain with exercises. Therapies Balance Description: Assess balance and provide NMRE activities in standing to increase static and dynamic balance in order to improve gait pattern and decrease fall risk. Problem:PT Therapeutic Exercise Goal:PT Therapeutic Exercise Scheduled with variance Defer to next visit Therapies - Transfer Training Description: Evaluate and instruct patient Roxana in safe transfers using appropriate body mechanics and necessary equipment to perform safe transfers. Problem:Therapies Transfer Training Goal:Physical Therapy - Transfer Training Completed Sit to stands completed with SBA. Patient required no cuing for sequencing or hand placement to complete transfers this date. Therapies Falls - Assess Appropriateness for Homecare Problem:Homebound Status Completed documented in this encounter Care Teams Nursing Student Relationship Specialty Start Date End Date Noemi Barnard MD [address] [address] PCP - General INTERNAL MEDICINE 08/23/18 03/03/23 Joni Mckeon MD [address] [address] Christopher Vault Cashier CARDIOVASCULAR DISEASE 07/04/18 documented as of this encounter
--- OUTSIDE RECORDS SUMMARY | 2024-04-05 00:18 | XMS_ITS | Encounter Summary ---
Author Organization [facility] Address [address] [place] [address]. [place], [place] [address] [place] [address] Care Team Providers Care Invasive Physician Name Role Phone Joni Mckeon MD Unavailable [phone] Noemi Barnard MD Primary Care Provider [phone] Encounter Details Date Type Department Care Team (Latest Contact Info) Description 08/30/2019 Travel Social History Tobacco Use Types Packs/Day [...] No Laura Cheatham, RN Return home with [facility] home health General No Malgorzata Brown MSW HOME WITH DAUGHTER General No Laura Cheatham, RN documented as of this encounter Visit Diagnoses Not on filedocumented in this encounter Care Teams Invasive Physician Relationship Specialty Start Date End Date Noemi Barnard MD Three [facility]. [address] [address] PCP - General INTERNAL MEDICINE 08/23/18 03/03/23 Joni Mckeon MD Three [facility]. [facility] [address] [place] [address] Christopher Airplane Pilot Crop Dusting CARDIOVASCULAR DISEASE 07/04/18 documented as of this encounter
--- OUTSIDE RECORDS SUMMARY | 2024-04-05 00:18 | XMS_ITS | Encounter Summary ---
Author Organization [facility] Address [address] [place] [address]. [place], [place] [id number] [place] [address] Care Team Providers Care Ad Compositor Name Role Phone Joni Mckeon MD Unavailable [phone] Neomi Barnard MD Primary Care Provider [phone] Encounter Details Date Type Department Care Team (Late st Contact Info) Description 09/04/2019 7:00 AM CDT Home Care Visit [address] [place] [address] Treasure Nicole, RADIOGRAPHY TECHNICIAN AIDE HOME VISIT Social History Tobacco Use [...] Time Taken Comments Blood Pressure 140/90 09/04/2019 10:30 AM CDT Pulse 58 09/04/2019 10:30 AM CDT Temperature 36.5 ??C (97.7 ??F) 09/04/2019 10:30 AM C DT Respiratory Rate 18 09/04/2019 10:30 AM CDT Oxygen Saturation - - Inhaled [...] No Laura Cheatham, RN Return home with [facility] home health General No Malgorzata Brown [...] Notes Hygiene Needs Met with Assist of TRANSPORTATION SECURITY OFFICER Description: Hygiene and safety needs will be met with assist of TRANSPORTATION SECURITY OFFICER by 09/16/19 Client will progress towards increased independence in performance of self cares. Aide for personal cares/mobility/ADL's Met This Shift No Interventions Intervention Associated Problem/Goal Status Variance Visit Notes Aide Communication tool Description: Complete TRANSPORTATION SECURITY OFFICER communication Problem:Aide for personal cares/mobility/ADL's Goal:Hygiene Needs Met with Assist of TRANSPORTATION SECURITY OFFICER Completed Last BM Date: 09/03 Shampoo: Yes Bathing: Shower Nail Care: Yes Clothing change: Yes Bruised, open or red areas: None noted Nurse notified or aware: No Aide Check Last BM Description: Check last BM. Notify RN if last BM longer than 3 days ago Problem:Aide for personal cares/mobility/ADL's Goal:Hygiene Needs Met with Assist of TRANSPORTATION SECURITY OFFICER Completed Aide inspect skin Description: Inspect skin for signs of pressure or irritation. After bathing reapply moisturizer. Report any observed or patient reported concerns to RN. Problem:Aide for personal cares/mobility/ADL's Goal:Hygiene Needs Met with Assist of TRANSPORTATION SECURITY OFFICER Completed Aide transfers Description: Assist with transfers using walker. Problem:Aide for personal cares/mobility/ADL's Goal:Hygiene Needs Met with Assist of TRANSPORTATION SECURITY OFFICER Completed Aide vitals Description: Obtain blood pressure, pulse, temperature, respirations and pulse oximetry. Notify RN of any significant changes. Vital Signs -report to sn if: BP: systolic blood pressure <90 or >160; diastolic blood pressure <60 or >90; Temperature: >100.5 F; Pulse: <60 or >100 bpm; Respiratory Rate: <12 or >28 /min; SPO2: <90%. Problem:Aide for personal cares/mobility/ADL's Goal:Hygiene Needs Met with Assist of TRANSPORTATION SECURITY OFFICER Completed Aide tub/shower bath Description: Assistance with bathing using shower stall. Clean shower after bathing. Problem:Aide for personal cares/mobility/ADL's Goal:Hygiene Needs Met with Assist of TRANSPORTATION SECURITY OFFICER Completed documented in this encounter Care Teams Ad Compositor Relationship Specialty Start Date End Date Noemi Barnard MD Three [facility]. [address] [address] PCP - General INTERNAL MEDICINE 08/23/18 03/03/23 Joni Mckeon MD [address] [address] Christopher Hydroblaster CARDIOVASCULAR DISEASE 07/04/18 documented as of this encounter
--- OUTSIDE RECORDS SUMMARY | 2024-04-05 00:18 | XMS_ITS | Encounter Summary ---
Author Organization [facility] Address [address] [place] [address]. [place], [place] [address] [place] [address] Care Team Providers Care Face Hardener Name Role Phone Joni Mckeon MD Unavailable [phone] Noemi Barnard MD Primary Care Provider [phone] Reason for Visit * Reason Onset Date Comments Pre-visit Gap Closure 08/31/2019 Encounter Details Date Type Department Care Team (Late st Contact Info) Description 08/31/2019 Telephone [facility] Medical [facility] Family & Internal Medicine [address] [address] Martha Ruiz, MIKE Pre-visit Gap Closure Social History Tobacco Use [...] documented in this encounter Progress Notes * Kyae [place] MA - 08/31/2019 11:06 AM CDT Contacted patient for pre-visit gap closure. 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 My direct extension for [place] is [phone] and for [facility] is [phone]. documented in this encounter Plan of Treatment Not on file documented as of this encounter Goals Goal Patient Goal Type Associated Problems Recent Progress Patient-Stated? Author Improve Home Support System General No Laura Cheatham, RN Return home with [facility] home health General No Malgorzata Brown TELECOMMUNICATIONS FIELD ENGINEER HOME WITH DAUGHTER General No Laura Cheatham, RN documented as of this encounter Visit Diagnoses Not on filedocumented in this encounter Care Teams Face Hardener Relationship Specialty Start Date End Date [facility] [address] [address] PCP - General INTERNAL MEDICINE 08/23/18 03/03/23 Joni [facility] [address] [address] [place] Ultimate Hoops Scoreboard Operator CARDIOVASCULAR DISEASE 07/04/18 documented as of this encounter
--- OUTSIDE RECORDS SUMMARY | 2024-04-05 00:18 | XMS_ITS | Encounter Summary ---
Author Organization [facility] Address [address] [place] [address]. [place], [place] [address] [place] [address] Care Team Providers Care Senior Administrator Support Name Role Phone Joni Mckeon MD Unavailable [phone] Noemi Barnard MD Primary Care Provider [phone] Encounter Details Date Type Department Care Team (Late st Contact Info) Description 08/29/2019 10:00 AM CDT Home Care Visit [address] [place] [address] Juanis Lewis LPN SN HOME VISIT Social [...] Sign Reading Time Taken Comments Blood Pressure 120/50 08/29/2019 10:05 AM CDT Pulse 66 08/29/2019 10:05 AM CDT Temperature 35.2 ??C (95.3 ??F) 08/29/2019 10:05 AM C DT Respiratory Rate 18 08/29/2019 10:05 AM CDT Oxygen Saturation - - Inhaled [...] Visit Type -SN - Home Visit Discipline -Mcc Problems Problem Description Start Date Status Goals Interve ntions Discharge Planning Disciplines: Mcc Discharge Planning 07/19/2019 Active 1 goal linked to scheduled/docume nted intervention 1 goal intervention scheduled/documen ke in this visit Care Coordination Disciplines: Mcc Management and coordination of patient care 07/19/2019 Active 1 goal linked to scheduled/docume nted intervention 2 goal interventions scheduled/documen ke in this visit Homebound Status Disciplines: Mcc Patient meets requirements of homebound status 07/19/2019 Active 1 goal linked to scheduled/docume nted intervention A Plan for Next Visit Disciplines: Mcc Plan for next visit 07/19/2019 Active 1 goal linked to scheduled/docume nted intervention 1 goal intervention scheduled/documen ke in this visit Home Safety Disciplines: Mcc Management and evaluation of patient's home environment 07/19/2019 Active 1 goal linked to scheduled/docume nted intervention 4 goal interventions scheduled/documen ke in this visit Medications Disciplines: Mcc Management of home medications 07/19/2019 Active 1 goal linked to scheduled/docume nted intervention 3 goal interventions scheduled/documen ke in this visit Management and Evaluation of the Care Plan Disciplines: Mcc SN for management and evaluation of skilled services 07/19/2019 Active 1 goal linked to scheduled/docume nted intervention 1 goal intervention scheduled/documen ke in this visit Skilled Observation and Assessment Disciplines: Mcc Skilled O & A as specified by the physician 07/19/2019 Active 1 goal linked to scheduled/docume nted intervention 2 problem interventions scheduled/documen ke in this visit Nutritional concerns Disciplines: Mcc Inadequate/imbala nced nutritional concerns 08/02/2019 Active 1 [...] Completed documented in this encounter Care Teams Senior Administrator Support Relationship Specialty Start Date End Date Noemi Barnard MD [address] [address] PCP - General INTERNAL MEDICINE 08/23/18 03/03/23 Joni Mckeon MD [facility]. [address] [address] [place] Puddler Pile Driving CARDIOVASCULAR DISEASE 07/04/18 documented as of this encounter
--- OUTSIDE RECORDS SUMMARY | 2024-04-05 00:18 | XMS_ITS | Encounter Summary ---
Author Organization [facility] Address [address] [place] [address]. [place], [place] [address] [place] [address] Care Team Providers Care Membership Sales Advisor Name Role Phone Joni Mckeon MD Unavailable [phone] Noemi Barnard MD Primary Care Provider [phone] Encounter Details Date Type Department Care Team (Late st Contact Info) Description 09/05/2019 Orders Only [facility] Group Family & Internal Medicine - [place] [address] [place] [address] [place] [id number] [place] [address] Social History Tobacco Use Types Packs/Day [...] No Lauar Cheatham, RN Return home with [facility] home health General No Malgorzata Brown MSW HOME WITH [facility] General No Laura Cheatham, RN documented as of this encounter Visit Diagnoses Not on filedocumented in this encounter Care Teams Membership Sales Advisor Relationship Specialty Start Date End Date Noemi Barnard MD [facility] [address] [place] [address] PCP - General INTERNAL MEDICINE 08/23/18 03/03/23 Joni Mckeon MD [facility] [address] [place] [address] [place] Customer Service Voice CARDIOVASCULAR DISEASE 07/04/18 documented as of this encounter
--- OUTSIDE RECORDS SUMMARY | 2024-04-05 00:18 | XMS_ITS | Encounter Summary ---
Author Organization [facility] Address [address] [place] [address]. [place], [place] [address] [place] [address] Care Team Providers Care French Polisher Name Role Phone Joni Mckeon MD Unavailable [phone] Noemi Barnard MD Primary Care Provider [phone] Encounter Details Date Type Department Care Team (Late st Contact Info) Description 09/05/2019 10:00 AM CDT Home Care Visit [address] [place] [address] Gladys Kinney, RN [phone] (Work) SN HOME VISIT Social History Tobacco Use [...] Reading Time Taken Comments Blood Pressure 140/60 09/05/2019 9:20 AM CDT Pulse 68 09/05/2019 9:20 AM CDT Temperature 36.4 ??C (97.5 ??F) 09/05/2019 9:20 AM CD T Respiratory Rate 18 09/05/2019 9:20 AM CDT Oxygen Saturation - - Inhaled [...] No Laura Cheatham, RN Return home with [facility] home health General No Malgorzata Brown MSW HOME WITH DAUGHTER General No Laura Cheatham, RN documented as of this encounter Visit Diagnoses Not on filedocumented in this encounter Home Health Visit - Care Plan Visit Details Visit Type -SN - Home Visit Discipline -Jail Problems Problem Description Start Date Status Goals Interve ntions Discharge Planning Disciplines: Jail Discharge Planning 07/19/2019 Active 1 goal linked to scheduled/docume nted intervention 1 goal intervention scheduled/documen ke in this visit Care Coordination Disciplines: Jail Management and coordination of patient care 07/19/2019 Active 1 goal linked to scheduled/docume nted intervention 2 goal interventions scheduled/documen ke in this visit A Plan for Next Visit Disciplines: Jail Plan for next visit 07/19/2019 Active 1 goal linked to scheduled/docume nted intervention 1 goal intervention scheduled/documen ke in this visit Home Safety Disciplines: Jail Management and evaluation of patient's home environment 07/19/2019 Active 1 goal linked to scheduled/docume nted intervention 4 goal interventions scheduled/documen ke in this visit Medications Disciplines: Jail Management of home medications 07/19/2019 Active 1 goal linked to scheduled/docume nted intervention 3 goal interventions scheduled/documen ke in this visit Management and Evaluation of the Care Plan Disciplines: Jail SN for management and evaluation of skilled services 07/19/2019 Active 1 goal linked to scheduled/docume nted intervention 1 goal intervention scheduled/documen ke in this visit Skilled Observation and Assessment Disciplines: Jail Skilled O & A as specified by the physician 07/19/2019 Active - 2 problem interventions scheduled/documen ke in this visit Nutritional concerns Disciplines: Jail Inadequate/imbala nced nutritional concerns 08/02/2019 Active 1 goal linked to scheduled/docume nted intervention 1 goal intervention scheduled/documen ke in this visit Venipuncture Disciplines: Jail Skilled nurse using clean technique to obtain labs as directed 09/01/2019 Active - 1 problem intervention scheduled/documen ke in this visit Goals Goal Associated Problem Outcome Goal Met? Visit Notes Progress towards discharge Description: Documentation of ongoing progress towards goals through 09/16/19 Discharge Planning No Coordination of Care Achieved Description: Coordination of care will be achieved by / through 09/16/2019 Care Coordination No Provide Continuity of Care Description: To provide continuity of care A Plan for Next Visit No Remain Safe in Home Description: Patient will remain safe in their home as evidenced by no falls or injuries, through 09/16/2019 Home Safety No Understanding of Medication Regimen Description: patient will verbalize understanding of medications and proper administration of medication regimen by 09/16/2019 Medications No SN Management and Evaluation of the Care Plan Description: Skilled nurse will continue to manage and evaluate care plan through 09/16/2019 or until patient moves in with her daughter. Management and Evaluation of the Care Plan No Nutritional Status for Optimal Health Description: Patient will demonstrate adequate nutritional status as evidenced by stabilization of weight and intake of required nutrients for optimal health and functioning by 09/16/2019 Nutritional concerns No Interventions Intervention Associated Problem/Goal Status Variance [...] venipuncture on 09/05/19. Results to Martha Ruiz NP [phone]. 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 Pressure applied. No bleeding noted. Patient tolerated well. Blood taken to [facility] and office notified. documented in this encounter Care Teams French Polisher Relationship Specialty Start Date End Date Noemi Barnard MD [facility]. [address] [address] PCP - General INTERNAL MEDICINE 08/23/18 03/03/23 Joni Mckeon MD [facility]. [address] [address] [place] Code Enforcement Officer CARDIOVASCULAR DISEASE 07/04/18 documented as of this encounter
--- OUTSIDE RECORDS SUMMARY | 2024-04-05 00:18 | XMS_ITS | Encounter Summary ---
Author Organization [facility] Address [address] [place] [address]. [place], [place] [address] [place] [address] Care Team Providers Care Computer Analyst Supervisor Name Role Phone Joni Mckeon MD Unavailable [phone] Noemi Barnard MD Primary Care Provider [phone] Encounter Details Date Type Department Care Team (Late st Contact Info) Description 09/05/2019 Orders Only [facility] Home Care [address] [place], [place] [id number] [place] [address] [place], [place] [id number] Social History Tobacco Use Types Packs/Day Years [...] on filedocumented in this encounter Care Teams Computer Analyst Supervisor Relationship Specialty Start Date End Date Noemi Barnard MD [address] [address] PCP - General INTERNAL MEDICINE 08/23/18 03/03/23 Joni Mckeon MD [facility] [address] [place] [address] Christopher Tool Design Drafter CARDIOVASCULAR DISEASE 07/04/18 documented as of this encounter
--- OUTSIDE RECORDS SUMMARY | 2024-04-05 00:18 | XMS_ITS | Encounter Summary ---
Author Organization [facility] Address [address] [place] [address]. [place] [address] [place] [address] Care Team Providers Care Sap Integration Architect Name Role Phone Joni Mckeon MD Unavailable [phone] Noemi Barnard MD Primary Care Provider [phone] Reason for Visit * Reason Onset Date Comments Hospital Follow Up 09/01/2019 Encounter Details Date Type Department Care Team (Late st Contact Info) Description 09/01/2019 Telephone [facility] Care Management [address] [place] [address] Malgorzata Brown, [facility] Hospital Follow Up Social History Tobacco Use [...] No Laura Cheatham, RN Return home with [facility] home health General No Malgorzata Brown, BLOCK CHOPPER HAND HOME WITH DAUGHTER General No Laura Cheatham, RN documented as of this encounter Visit Diagnoses Not on filedocumented in this encounter Care Teams Sap Integration Architect Relationship Specialty Start Date End Date Noemi Barnard MD [facility]. [place] [address] [place] [address] PCP - General INTERNAL MEDICINE 08/23/18 03/03/23 Joni Mckeon MD [facility]. [facility] [address] [place] [address] Christopher Sterile Instrument Technician CARDIOVASCULAR DISEASE 07/04/18 documented as of this encounter
--- OUTSIDE RECORDS SUMMARY | 2024-04-05 00:18 | XMS_ITS | Encounter Summary ---
Author Organization [facility] Address [address] [place] [address]. [place] [address] [place] [address] Care Team Providers Care Display And Banner Designer Name Role Phone Joni Mckeon MD Unavailable [phone] Noemi Barnard MD Primary Care Provider [phone] Encounter Details Date Type Department Care Team (Latest Contact Info) Description 08/31/2019 Scan HEALTH INFO [facility] Scanned, Documents Social [...] CENTER home health General No Malgorzata Brown, LEAD PROGRAMMER HOME WITH DAUGHTER General No Laura Cheatham, RN documented as of this encounter Visit Diagnoses Not on filedocumented in this encounter Care Teams Display And Banner Designer Relationship Specialty Start Date End Date Noemi Barnard MD [facility]. [address] [address] PCP - General INTERNAL MEDICINE 08/23/18 03/03/23 Joni Mckeon MD [facility]. [facility] [address] [place] [address] Christopher Cost Specialist CARDIOVASCULAR DISEASE 07/04/18 documented as of this encounter
--- OUTSIDE RECORDS SUMMARY | 2024-04-05 00:18 | XMS_ITS | Encounter Summary ---
Author Organization [facility] Address [address] [place] [address]. [place], [place] [address] [place] [address] Care Team Providers Care Ground Water Contractor Name Role Phone Joni Mckeon MD Unavailable [phone] Noemi Barnard MD Primary Care Provider [phone] Encounter Details Date Type Department Care Team (Late st Contact Info) Description 09/04/2019 Orders Only [facility] Family & Internal Medicine - [place] [address] [place] [address] [place] [id number] [place] [address] Social History Tobacco Use Types Packs/Day [...] [facility] General No Malgorzata Brown MSW HOME WITH [facility] General No Laura Cheatham, RN documented as of this encounter Visit Diagnoses Not on filedocumented in this encounter Care Teams Ground Water Contractor Relationship Specialty Start Date End Date Noemi Barnard MD [facility] [address] [place] [address] PCP - General INTERNAL MEDICINE 08/23/18 03/03/23 Joni Mckeon MD [facility] [address] [place] [address] [place] Information Broker CARDIOVASCULAR DISEASE 07/04/18 documented as of this encounter
--- OUTSIDE RECORDS SUMMARY | 2024-04-05 00:18 | XMS_ITS | Encounter Summary ---
Author Organization [facility] Address [address] [place] [address]. [place], [place] [address] [place] [address] Care Team Providers Care Glue Size Machine Operator Name Role Phone Joni Mckeon MD Unavailable [phone] Noemi Barnard MD Primary Care Provider [phone] Encounter Details Date Type Department Care Team (Late st Contact Info) Description 09/05/2019 Orders Only [facility] [address] [place], [place] [id number] Martha Ruiz, PLASTIC SEWER Social History Tobacco Use Types Packs/Day Years [...] No Laura Cheatham, RN Return home with [facility] home health General No Malgorzata Brown, [employer] HOME WITH DAUGHTER General No Laura Cheatham RN documented as of this encounter Results * (ABNORMAL) THYROID STIM HORMONE, TSH (09/05/2019 9:40 AM CDT) TSH 6.539(H) 0.358 - 3.74 uIU/ML 09/05/2019 10:52 AM CDT [facility] Comment: HIGH DOSES OF BIOTIN MAY INTERFERE WITH THIS TEST RESULT. CORRELATION TO CLINICAL HISTORY AND PRESENTATION RECOMMENDED. 09/05/2019 9:40 AM CDT Martha Ruiz NP LABORATORY Final Result [facility] [address] [place] [address], * (ABNORMAL) CBC W/DIFF AUTOMATED (09/05/2019 9:40 AM CDT) [facility] Signature WBC 3.9(L) 4.4 - 11.0 x10'3/uL 09/05/2019 10:38 AM CDT [facility] RBC 3.83(L) 4.50 - 5.10 x10'6/uL 09/05/2019 10:38 AM CDT [facility] HGB 11.2(L) 12.3 - 15.3 G/DL 09/05/2019 10:38 AM T [facility] HCT 34.5(L) 35.9 - 44.6 % 09/05/2019 10:38 AM CDT [facility] MCV 90.1 80.0 - 96.0 FL 09/05/2019 10:38 AM CDT [facility] MCH 29.2 25.3 - 30.9 PG 09/05/2019 10:38 AM CDT [facility] MCHC 32.5 31.0 - 34.1 G/DL 09/05/2019 10:38 AM CDT [facility] RDW 14.6 12.4 - 15.1 % 09/05/2019 10:38 AM T [facility] PLT 157 151 - 353 x10'3/uL 09/05/2019 10:38 AM CDT [facility] MPV 10.0 9.6 - 12.0 FL 09/05/2019 10:38 AM T [facility] RBC MORPHOLOGY NORMAL 09/05/2019 10:38 AM CDT [facility] PLT MORPH. NORMAL 09/05/2019 10:38 AM CDT [facility] WBC MORPHOLOGY NORMAL 09/05/2019 10:38 AM CDT [facility] LYMPHOCYTES % 11.2(L) 15.8 - 45.0 % 09/05/2019 10:39 AM CDT [facility] NEUTROPHILS % 80.2(H) 42.1 - 71.9 % 09/05/2019 10:39 AM CDT [facility] MONOCYTES % 6.8 5.7 - 12.5 % 09/05/2019 10:39 AM CDT [facility] EOSINOPHILS 1.0 0.0 - 5.6 % 09/05/2019 10:39 AM CDT [facility] BASOPHILS 0.5 0.0 - 1.3 % 09/05/2019 10:39 AM CDT [facility] ABS. NEUTROPHILS TOTAL 3.09 1.40 - 6.00 x10'3/uL 09/05/2019 10:39 AM T [facility] IMMATURE GRANS % 0.3 0.0 - 0.5 % 09/05/2019 10:39 AM CDT [facility] ABS. LYMPHOCYTES 0.43(L) 0.80 - 4.70 x10'3/uL 09/05/2019 10:39 AM T [facility] 09/05/2019 9:40 AM CDT Martha Ruiz NP LABORATORY Final Result [facility] [address] [place] [address], * (ABNORMAL) BASIC METABOLIC PANEL (09/05/2019 9:40 AM CDT) [facility] GLUCOSE 132(H) 70 - 99 MG/DL 09/05/2019 10:52 AM CDT [facility] BUN 14 7 - 18 MG/DL 09/05/2019 10:52 AM T [facility] CREATININE S/P/B 1.13(H) 0.55 - 1.02 MG/DL 09/05/2019 10:52 AM [facility] SODIUM S/P/B 140 136 - 145 MMOL/L 09/05/2019 10:52 AM T [facility] POTASSIUM S/P/B 3.9 3.5 - 5.1 MMOL/L 09/05/2019 10:52 AM T [facility] CHLORIDE S/P/B 105 100 - 108 MMOL/L 09/05/2019 10:52 AM T [facility] CO2 28.5 21 - 32 MMOL/L 09/05/2019 10:52 AM [facility] CALCIUM S/P/B 8.9 8.5 - 10.1 MG/DL 09/05/2019 10:52 AM [facility] ANION GAP 6.5 5 - 15 MMOL/L 09/05/2019 10:52 AM [facility] BUN CREATININE RATIO 12.4 6 - 26 09/05/2019 10:52 AM [facility] EGFR NON-AFR. AMER. 45(L) >90 ML/MIN/1.7 3 M2 09/05/2019 10:52 AM [facility] EGFR AFR. AMER. 52(L) >90 ML/MIN/1.7 3 M2 09/05/2019 10:52 AM [facility] Comment: NOTE: eGFR is not calculated for patients <18 years of age. This is an estimated GFR (CKD EPI) and should not be used for calculating drug doses. 09/05/2019 9:40 AM CDT Martha Ruiz NP LABORATORY Final Result [facility] [address] [place] [address], documented in this encounter Visit Diagnoses Diagnosis Bacteremia- Primary Hypothyroid Unspecified hypothyroidism Hypertension Unspecified essential hypertension Diabetes mellitus (CMS/HCC HHS/HCC) Type II or unspecified type diabetes mellitus without mention of complication, not stated as uncontrolled documented in this encounter Care Teams Glue Size Machine Operator Relationship Specialty Start Date End Date Noemi Barnard MD [facility]. [address] [address] PCP - General INTERNAL MEDICINE 08/23/18 03/03/23 Joni Mckeon MD [address] [address] Bethany Embossing Calender Operator CARDIOVASCULAR DISEASE 07/04/18 documented as of this encounter
--- OUTSIDE RECORDS SUMMARY | 2024-04-05 00:18 | XMS_ITS | Encounter Summary ---
Author Organization [facility] Address [address] [place] [address]. [place], [place] [address] [place] [address] Care Team Providers Care Doctor Podiatric Medicine Name Role Phone Joni Mckeon MD Unavailable [phone] Noemi Barnard MD Primary Care Provider [phone] Encounter Details Date Type Department Care Team (Late st Contact Info) Description 08/25/2019 7:00 AM CDT Home Care Visit [address] [place] [address] Treasure Nicole, SPINNERET PERSON AIDE HOME VISIT Social History Tobacco Use [...] Time Taken Comments Blood Pressure 120/70 08/25/2019 2:41 PM CDT Pulse 56 08/25/2019 2:41 PM CDT Temperature 35.3 ??C (95.5 ??F) 08/25/2019 2:41 PM CD T Respiratory Rate 16 08/25/2019 2:41 PM CDT Oxygen Saturation - - Inhaled [...] [facility] General No Malgorzata Brown MSW [...] Notes Hygiene Needs Met with Assist of BRIDGE SAW OPERATOR Description: Hygiene and safety needs will be met with assist of BRIDGE SAW OPERATOR by 09/16/19 Client will progress towards increased independence in performance of self cares. Aide for personal cares/mobility/ADL's Met This Shift No Interventions Intervention Associated Problem/Goal Status Variance Visit Notes Aide Communication tool Description: Complete BRIDGE SAW OPERATOR communication Problem:Aide for personal cares/mobility/ADL's Goal:Hygiene Needs Met with Assist of BRIDGE SAW OPERATOR Completed Last BM Date: 08/23 Shampoo: Yes Bathing: Shower Nail Care: Yes Clothing change: Yes Bruised, open or red areas: None noted Nurse notified or aware: No Aide Check Last BM Description: Check last BM. Notify RN if last BM longer than 3 days ago Problem:Aide for personal cares/mobility/ADL's Goal:Hygiene Needs Met with Assist of BRIDGE SAW OPERATOR Completed Aide inspect skin Description: Inspect skin for signs of pressure or irritation. After bathing reapply moisturizer. Report any observed or patient reported concerns to RN. Problem:Aide for personal cares/mobility/ADL's Goal:Hygiene Needs Met with Assist of BRIDGE SAW OPERATOR Completed Aide transfers Description: Assist with transfers using walker. Problem:Aide for personal cares/mobility/ADL's Goal:Hygiene Needs Met with Assist of BRIDGE SAW OPERATOR Completed Aide vitals Description: Obtain blood pressure, [...] cares/mobility/ADL's Goal:Hygiene Needs Met with Assist of BRIDGE SAW OPERATOR Completed Aide tub/shower bath Description: Assistance with bathing using shower stall. Clean shower after bathing. Problem:Aide for personal cares/mobility/ADL's Goal:Hygiene Needs Met with Assist of BRIDGE SAW OPERATOR Completed documented in this encounter Care Teams Doctor Podiatric Medicine Relationship Specialty Start Date End Date Noemi Barnard MD [facility]. [address] [address] PCP - General INTERNAL MEDICINE 08/23/18 03/03/23 Joni Mckeon MD [address] [address] Christopher Patient Registrar CARDIOVASCULAR DISEASE 07/04/18 documented as of this encounter
--- OUTSIDE RECORDS SUMMARY | 2024-04-05 00:18 | XMS_ITS | Encounter Summary ---
Author Organization [facility] Address [address] [place] [address]. [place], [place] [address] [place] [address] Care Team Providers Care Infrastructure Technician Name Role Phone Joni Mckeon MD Unavailable [phone] Noemi Barnard MD Primary Care Provider [phone] Encounter Details Date Type Department Care Team (Late st Contact Info) Description 09/06/2019 Orders Only [facility] - [place] [address] [place] [address] [place]ard [place] [id number] [place] [address] Social History Tobacco Use Types Packs/Day [...] General No Malgorzata Brown MSW HOME WITH [facility] General No Laura Cheatham, RN documented as of this encounter Visit Diagnoses Not on filedocumented in this encounter Care Teams Infrastructure Technician Relationship Specialty Start Date End Date Noemi Barnard MD [facility] [address] [place] [address] PCP - General INTERNAL MEDICINE 08/23/18 03/03/23 Joni Mckeon MD [facility] [address] [place] [address] [place] Track Man CARDIOVASCULAR DISEASE 07/04/18 documented as of this encounter
--- OUTSIDE RECORDS SUMMARY | 2024-04-05 00:18 | XMS_ITS | Encounter Summary ---
Author Organization [facility] Address [address] [place] [address]. [place], [place] [address] [place] [address] Care Team Providers Care Golf Course Keeper Name Role Phone Joni Mckeon MD Unavailable [phone] Noemi Barnard MD Primary Care Provider [phone] Encounter Details Date Type Department Care Team (Late st Contact Info) Description 09/06/[address] 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 [address] [address] PCP - General INTERNAL MEDICINE 08/23/18 03/03/23 Joni Mckeon MD [facility]. [facility] [address] [place] [address] (work) Christopher Rail Detector Car Operator CARDIOVASCULAR DISEASE 07/04/18 documented as of this encounter
--- OUTSIDE RECORDS SUMMARY | 2024-04-05 00:18 | XMS_ITS | Encounter Summary ---
Author Organization [facility] Address [address] [place] [address]. [place], [place] [address] [place] [address] Care Team Providers Care Eyeglass Fitter Name Role Phone Joni Mckeon MD Unavailable [phone] Noemi Barnard MD Primary Care Provider [phone] Encounter Details Date Type Department Care Team (Late st Contact Info) Description 09/01/2019 1:30 PM CDT Home Care Visit [address] [place] [address] Mekhi Falk, CLOTH COLORS EXAMINER [address] [place] [address] CLOTH COLORS EXAMINER HOME VISIT Social History Tobacco Use Types [...] Time Taken Comments Blood Pressure 124/60 09/01/2019 1:35 PM CDT Pulse 68 09/01/2019 1:35 PM CDT Temperature 36.4 ??C (97.5 ??F) 09/01/2019 1:35 PM CD T Respiratory Rate 18 09/01/2019 1:35 PM CDT Oxygen Saturation - - Inhaled [...] [facility] home health General No Malgorzata Brown MSW HOME WITH [facility] General No Laura Cheatham, RN documented as of this encounter Visit Diagnoses Not on filedocumented in this encounter Home Health Visit - Care Plan Visit Details Visit Type -CLOTH COLORS EXAMINER - Home Visit Discipline -Physical Therapy Problems [...] changes or concerns reported to supervising therapist, nurse case manager, and or provider through plan of [...] Planning Goal:Progress towards discharge Completed patient progressing well towards goals. Care Coordination Description: Coordinate care with necessary care team members as needed regarding PT POC or medical conditions or concerns. Problem:Care Coordination Goal:Coordination of Care/Interpretive Services Completed Energy Technician seen last Plan for Next Visit Description: [...] AND KITCHEN Therapies - Vitals Description: PT, nurse case manager or physician to be contacted if [...] Training Goal:PT Gait Training Completed Patient ambulated 350' with use of FWW and SBA. Patient has slight increase in overall fatigue this date with decreased stride length and pace towards end of ambulation along with head hang. Rest break required after ambulation. Therapies - Therapeutic Exercise Description: HEP for BLE strength and activity tolerance improvements Problem:PT Therapeutic Exercise Goal:PT Therapeutic Exercise Completed Patient performed LAQ, hip flexion, hip ABD, and PF/DF x 15 bilaterally in sitting. Difficulty with left LAQ and hip ABD this date due to overall fatigue from todays activities. Sitting rest break required to reduce muscle fatigue with exercises. Therapies Balance Description: Assess balance [...] Goal:Physical Therapy - Transfer Training Completed Patient completed sit to stand x 10 consecutively to improve LE strengthening and technique with continuous movements. Patient demonstrates increased fatigue after activity requiring sitting rest break. Therapies Falls - Assess Appropriateness for Homecare Problem:Homebound Status Completed documented in this encounter Care Teams Eyeglass Fitter Relationship Specialty Start Date End Date Noemi Barnard MD [facility]. [address] [address] PCP - General INTERNAL MEDICINE 08/23/18 03/03/23 Joni Mckeon MD [address] [address] Christopher Project Officer CARDIOVASCULAR DISEASE 07/04/18 documented as of this encounter
--- OUTSIDE RECORDS SUMMARY | 2024-04-05 00:18 | XMS_ITS | Encounter Summary ---
Author Organization [facility] Address [address] [place] [address]. [place], [place] [address] [place] [address] Care Team Providers Care Medical I D Sales Name Role Phone Joni Mckeon MD Unavailable [phone] Noemi Barnard MD Primary Care Provider [phone] Encounter Details Date Type Department Care Team (Latest Contact Info) Description 08/24/2019 Travel Social History Tobacco Use Types Packs/Day [...] on filedocumented in this encounter Care Teams Medical I D Sales Relationship Specialty Start Date End Date oNemi Barnard MD Three [facility]. [address] [address] PCP - General INTERNAL MEDICINE 08/23/18 03/03/23 Joni Mckeon MD Three [facility]. [facility] [address] [place] [address] Christopher Bicycle Repairman CARDIOVASCULAR DISEASE 07/04/18 documented as of this encounter
--- OUTSIDE RECORDS SUMMARY | 2024-04-05 00:18 | XMS_ITS | Encounter Summary ---
Author Organization [facility] Address [address] [place] [address]. [place], [place] [address] [place] [address] Care Team Providers Care Manager Of Exhibitions And Collections Name Role Phone Joni Mckeon MD Unavailable [phone] Noemi Barnard MD Primary Care Provider [phone] Encounter Details Date Type Department Care Team (Late st Contact Info) Description 08/30/2019 12:30 PM CDT Home Care Visit [address] [place] [address] Mekhi Falk, MARINE PIPEFITTER [address] [place] [address] MARINE PIPEFITTER HOME VISIT Social History Tobacco Use Types [...] Sign Reading Time Taken Comments Blood Pressure 118/60 08/30/2019 12:49 PM CDT Pulse 64 08/30/2019 12:49 PM CDT Temperature 36.4 ??C (97.5 ??F) 08/30/2019 12:49 PM C DT Respiratory Rate 18 08/30/2019 12:49 PM CDT Oxygen Saturation - - Inhaled [...] - Care Plan Visit Details Visit Type -MARINE PIPEFITTER - Home Visit Discipline -Physical Therapy Problems [...] changes or concerns reported to supervising therapist, pillowcase cleaner, and or provider through plan of care. [...] Goal:Progress towards discharge Completed patient progressing towards goals Care Coordination Description: Coordinate care with necessary care team members as needed regarding PT POC or medical conditions or concerns. Problem:Care Coordination Goal:Coordination of Care/Interpretive Services Completed Shearing Shed Worker seen last Plan for Next Visit Description: Next visit plan summation Problem:A Plan for Next Visit Goal:Provide Continuity of Care Completed continue [facility] POC Review Medications Description: Skilled PT will [...] AND KITCHEN Therapies - Vitals Description: PT, pillowcase cleaner or physician to be contacted if pulse [...] of FWW and SBA on even surfaces. Demonstrating improved posture and overall gait pattern. Patient reports minimal to no fatigue after ambulation requiring a slight rest break. Therapies - Therapeutic Exercise Description: HEP for BLE strength and activity tolerance improvements Problem:PT Therapeutic Exercise Goal:PT Therapeutic Exercise Completed Patient performed LAQ, hip flexion, hip ABD, and PF/DF x 20 bilaterally in sitting. Decreased ROM of exercises with left LE due to weakness but patient completed all reps. Visual cues given for initiation of exercises. Small rest breaks to reduce muscle fatigue. Therapies Balance Description: Assess balance and provide [...] Therapy - Transfer Training Completed Patient is Mod I with bed and recliner transfers. Therapies Falls - Assess Appropriateness for Homecare Problem:Homebound Status Completed documented in this encounter Care Teams Manager Of Exhibitions And Collections Relationship Specialty Start Date End Date Noemi Barnard MD [facility]. [address] [address] PCP - General INTERNAL MEDICINE 08/23/18 03/03/23 Joni Mckeon MD [facility]. [address] [address] Christopher Warehouse Processor CARDIOVASCULAR DISEASE 07/04/18 documented as of this encounter
--- OUTSIDE RECORDS SUMMARY | 2024-04-05 00:19 | XMS_ITS | Encounter Summary ---
Author Organization [facility] Address [address] [place] [address]. [place], [place] [address] [place] [address] Care Team Providers Care Women'S Soccer Coach Name Role Phone Joni Mckeon MD Unavailable [phone] Noemi Barnard MD Primary Care Provider [phone] Reason for Visit * Reason Comments TCM in [facility]) for Hyponatremia and hypokalemia, she also fell at home on 08/01/2019, she is starting to get a little energy back Encounter Details Date Type Department Care Team (Late st Contact [facility]) Description 08/23/2019 1:40 PM CDT Office Visit [facility] Family & Internal Medicine [address] [address] Martha Ruiz NP TCM (in [facility]) for Hyponatremia and hypokalemia, she also fell at home on 08/01/2019, she is starting to get a little energy back) Social History Tobacco Use Types Packs/Day Years [...] Sign Reading Time Taken Comments Blood Pressure 116/62 08/23/2019 1:30 PM CDT Pulse 80 08/23/2019 1:30 PM CDT Temperature - - Respiratory Rate 18 08/23/2019 1:30 PM CDT Oxygen Saturation 96% 08/23/2019 1:30 PM CDT Inhaled Oxygen Concentration - - Weight 54.4 kg (120 lb) 08/23/2019 1:30 PM CDT Height 160 cm (5' 3 ) 08/23/2019 1:30 PM CDT Body Mass Index 21.26 08/23/2019 1:30 PM CDT documented in this encounter Functional [...] encounter Patient Instructions * Patient Instructions* Martha Ruiz NP - 08/23/2019 1:40 PM CDT Drink 8 cups of water per day Send the urine for urinalysis, Try to use acidophilus for the bowel Glycerna or any low sugar protein drink would be good. Pt will continue to walk with walker Labs were drawn today in the office. Will call the results of the test Call daughter. Pt is going to be taking Omeprazole one 20 mg dailly Two weeks monitor conditions documented in this encounter Progress Notes * Martha Ruiz NP - 08/23/2019 1:40 PM CDT Transitional Care Note: Pt was in hospital here Pt was admitted on: to [facility] then 08/01/2019 to [facility] Pt was discharged on: 08/01/2019 from [facility] then 08/16/2019 Admit Diagnosis: Fall, found to have UTI and acute kidney failure, with following active problem list Claudication, colitis, DM, Dyshidrotic eczema, Gerd, Hyperlipidemia, HTN, Hypothyrroidisim, Insomnia, Lumbago, diarrhea, vaginal burning , diverticulitis, suprapubic pain, dizziness, atypical chest pain, SOB, physical deconditioning, allergies Discharge Diagnosis: Same dx but the UTI has been resolved, continues with deconditioning Initial Nursing contact: See telephone encounter on:08/21/2019 I called pt to inquire how she has been feeling. Pt was scheduled to see Dr Rubin on 08/22/19 butdue to restrictions and recommendations of the CDC, [facility] and [facility] regarding COVID-19 pt was unable to attend [facility] in person to keep appointment with Dr Rubin. Pt reports mood is fair. Pt reports feeling depressed 30 % of the time. Pt was just discharged from inpatient hospitalization for a UTI. Pt report anxiety and excessive worry especially over the virus and her upcoming move to her daughters. Pt reports energy is fair. Pt reports appetite is fair but improving. Pt reports sleep is okay. Pt reports concentration is pretty good. Pt denies anhedonia. Pt denies SI/HI. Pt denies hallucinations or racing thoughts. Pt denies pain. Pt denies any recent falls. Pt denies feeling hopeless, worthless or guilty. Pt denies any questions or concerns for Dr Rubin. Medication refills were addressed. Pt reports taking prescribed medication ordered by Dr. Rubin and denies any questions or concerns. Pt denies any new medication. Pt information will be relayed to Dr Rubin during staffing over the phone on 08/22/19 at 0845 Informed pt I would call after staffing with Dr. Rubin tomorrow to review any new orders. Discharge note from [facility] was reviewed In summary: 84 y/o female had presyncope episode and fall 07/30/19 and was discharge to our swing bed after 2 day hospital stay. Pt dx with UTI, bacteremia, and acute kidney injury. She is moderately confused and generally weak. Since Discharge: Roxana has been doing Pt is doing poorly at this time she has continued to lose weight, she is not eating and had difficult time with taking medication correctly. Pt has home health coming in at this time and will be need of monitoring frequently. She has family support but at this time still having low blood pressure and weakness. Pt reports becoming very weak while standing at the sink. Presyncope and electrolyte abnormalities of hypokalemia and hyponatremia will need to continue to be monitored. All of her diuretics have been discontinued at this time. Pt has large righthip hematoma from the fall incurred on 07/30/2019. Healing but is drawing frame tender and presnent. Diabetes had been controlled at the hospital with SSI. Unsure what testing is being done in the home. Metformin was stopped while in the hospital because of the renal function. Will contact home health nursing to evaluate and teach family/patient how the test blood glucose. Pt still having burning with urination. Concern may just be irritation because pt states is incontinent of urine at times. Pt was treated with nystatin for this but does not seem to be helping at this time. Pt did have Klbsiella pneumoniae UTI and was treated with antibiotic oral and reports having two more days of the medication left. Pt B/P is still low. Pt was sent home with Lasix 20 mg and benazepril 20 mg for B/P control. Pt is unsure of her medication and this is reported on the discharge summary from the hospital. HLD, Hypothyroidism, depression, insomna were continued as before admission. ROS: Review of Systems Constitutional: Positive for malaise/fatigue and weight loss. See HPI frail weak fragile elderly female HENT: Positive for hearing loss. Pt has hearing loss Eyes: Positive for blurred vision. Respiratory: Negative. Cardiovascular: Negative for leg swelling. See HPI Gastrointestinal: Positive for heartburn. Denies nausea but has no [...] The patient is nervous/anxious andhas insomnia. Medications: Medication Reconciliation was preformed during visit. Current Outpatient Medications: ??? aspirin EC 81 [...] Rash), Disp: 1 g, Rfl: 0 ??? omeprazole 20 MG capsule, Take 1 capsule (20 mg total) by mouth daily., Disp: 30 capsule, Rfl: 1 ??? PRAVASTATIN 40 MG tablet, TAKE 1 [...] Indications: Disturbed Sleep, Disp: , Rfl: ??? POTASSIUM CHLORIDE CR 10 MEQ tablet, TAKE 1 TABLET BY MOUTH DAILY WITH BREAKFAST FOR 10 DAYS, Disp: 10 tablet, Rfl: 0 Allergies Allergen [...] file Gets together: Not on file Attends buddhism service: Not on file Active member of [...] Other (Not Specified) ??? Mother ??? Father Filed Vitals: 08/23/19 1330 BP: 116/62 Pulse: 80 Resp: 18 SpO2: 96% Weight: 54.4 kg (120 lb) Height: 5' 3 (1.6 m) Physical Exam Constitutional: She is oriented to [...] Effort normal. No respiratory distress. She has decreased breath sounds in the right upper field, the right middle field, the right lower field, the left upper field, the left middlefield and the left lower field. She has no rales. Abdominal: Soft. Musculoskeletal: She exhibits tenderness. No edema of lower extremities, general muscle tenderness noted over body. W/c for long distance does walk with cane in the home Neurological: She is alert and oriented to person, place, and time. Pt is easily confused about medication and what day certain events occurred but pt is very weak at this time Skin: Skin is warm and dry. See HPI for bruising and scratch on the right back Psychiatric: She has a normal mood and affect. Her behavior is normal. Pt does have heart burn and because poor eating will start on omeprozole 20 mg po daily to reduce heartburn and hopefully help appetite to return for the pt. Diagnoses/Impression: Encounter Diagnose(s) ICD-10-CM ICD-9-CM SNOMED CT(R) 1. CLAUDIO (acute kidney injury) ([facility]) N17.9 584.9 ACUTE INJURY OF KIDNEY URINALYSIS AUTO DIP CULTURE URINE COMPREHENSIVE METABOLIC PANEL CBC W/DIFF AUTOMATED VENIPUNC ARM DRAW 2. UTI symptoms R39.9 788.99 URINARY SYMPTOMS CULTURE URINE 3. Gastroesophageal reflux disease with esophagitis K21.0 530.11 GASTRO- ESOPHAGEAL REFLUX DISEASE WITH ESOPHAGITIS omeprazole 20 MG capsule COMPREHENSIVE METABOLIC PANEL CBC W/DIFF AUTOMATED 4. Type 2 diabetes mellitus with stage 3 chronic kidney disease, without long- term current use of insulin ([facility]) E11.22 250.40 TYPE 2 DIABETES MELLITUS HEMOGLOBIN, GLYCOSYLATED N18.3 585.3 VENIPUNC ARM DRAW Plan: 1. Medications/DME - Continue current medications. There are some questions about medication that occurred after the visit and will work through home health to clear up these concerns over DM medication. 2. Lab/Diagnostics - See orders. 3. Education - Current treatment discussed and patient education given as appropriate. 4. Referrals - Pt will be seeing Dr Johns steaming cabinet tender very soon. 5. RTC - 1 month(s) * Nuha Ruiz RN - 08/23/2019 1:40 PM CDT Called [facility], they are gone for the day, will call tomorrow morning. * Nuha Ruiz RN - 08/23/2019 1:40 PM CDT LMOM for [facility] to call me. * Nuha Ruiz RN - 08/23/2019 1:40 PM CDT Orders faxed to [facility], for blood sugar three times a week, current list of medication & lab work. documented in this encounter Plan of Treatment Not on file documented as of this encounter Goals Goal Patient Goal Type Associated Problems Recent Progress Patient-Stated? Author Improve Home Support System General No Laura Cheatham, RN Return home with [facility] home health General No Malgorzata Brown, PRACTICAL NURSE CLINICAL COORDINATOR HOME WITH DAUGHTER General No Laura Cheatham RN documented as of this encounter Procedures Procedure Name Priority Date/Time Associated Diagnosis Comments COLLECTION VENOUS BLOOD VENIPUNCTURE Routine 08/23/2019 2:58 PM CDT CLAUDIO (acute kidney injury) Type 2 diabetes mellitus with stage 3 chronic kidney disease, without long-term current use of insulin ([facility]) URINALYSIS AUTO DIP Routine 08/23/2019 CLAUDIO (acute kidney injury) HEMOGLOBIN, GLYCOSYLATED Routine 08/23/2019 Type 2 diabetes mellitus with stage 3 chronic kidney disease, without long-term current use of insulin ([facility]) documented in this encounter Results * (ABNORMAL) CBC W/DIFF AUTOMATED (08/23/2019 7:19 PM CDT) WBC 6.1 4.4 - 11.0 x10'3/uL 08/23/2019 7:44 PM CDT [facility] RBC 4.38(L) 4.50 - 5.10 x10'6/uL 08/23/2019 7:44 PM CDT [facility] HGB 12.7 12.3 - 15.3 G/DL 08/23/2019 7:44 PM CDT [facility] HCT 38.9 35.9 - 44.6 % 08/23/2019 7:44 PM [facility] MCV 88.8 80.0 - 96.0 FL 08/23/2019 7:44 PM T [facility] MCH 29.0 25.3 - 30.9 PG 08/23/2019 7:44 PM [facility] MCHC 32.6 31.0 - 34.1 G/DL 08/23/2019 7:44 PM [facility] RDW 14.7 12.4 - 15.1 % 08/23/2019 7:44 PM [facility] PLT 333 151 - 353 x10'3/uL 08/23/2019 7:44 PM [facility] MPV 9.9 9.6 - 12.0 FL 08/23/2019 7:44 PM [facility] RBC MORPHOLOGY NORMAL 08/23/2019 7:44 PM [facility] PLT MORPH. NORMAL 08/23/2019 7:44 PM [facility] WBC MORPHOLOGY NORMAL 08/23/2019 7:44 PM [facility] LYMPHOCYTES % 11.2(L) 15.8 - 45.0 % 08/23/2019 7:44 PM [facility] NEUTROPHILS % 79.8(H) 42.1 - 71.9 % 08/23/2019 7:44 PM [facility] MONOCYTES % 7.2 5.7 - 12.5 % 08/23/2019 7:44 PM [facility] EOSINOPHILS 0.8 0.0 - 5.6 % 08/23/2019 7:44 PM [facility] BASOPHILS 0.5 0.0 - 1.3 % 08/23/2019 7:44 PM [facility] ABS. NEUTROPHILS TOTAL 4.85 1.40 - 6.00 x10'3/uL 08/23/2019 7:44 PM CDT [facility] IMMATURE GRANS % 0.5 0.0 - 0.5 % 08/23/2019 7:44 PM CDT [facility] ABS. LYMPHOCYTES 0.68(L) 0.80 - 4.70 x10'3/uL 08/23/2019 7:44 PM CDT [facility] 08/23/2019 7:19 PM CDT Martha Ruiz NP LABORATORY Final Result [facility] [address] [place] [address], [place] [phone] * (ABNORMAL) COMPREHENSIVE METABOLIC PANEL (08/23/2019 7:19 PM CDT) Pathologist [facility] GLUCOSE 107(H) 70 - 99 MG/DL 08/23/2019 8:57 PM CDT [facility] BUN 31(H) 7 - 18 MG/DL 08/23/2019 8:57 PM CDT [facility] CREATININE S/P/B 1.61(H) 0.55 - 1.02 MG/DL 08/23/2019 8:57 PM CDT [facility] SODIUM S/P/B 138 136 - 145 MMOL/L 08/23/2019 8:57 PM CDT [facility] POTASSIUM S/P/B 4.5 3.5 - 5.1 MMOL/L 08/23/2019 8:57 PM CDT [facility] CHLORIDE S/P/B 99(L) 100 - 108 MMOL/L 08/23/2019 8:57 PM CDT [facility] CO2 27.7 21 - 32 MMOL/L 08/23/2019 8:57 PM CDT [facility] CALCIUM S/P/B 9.6 8.5 - 10.1 MG/DL 08/23/2019 8:57 PM [facility] BILIRUBIN TOTAL S/P/B 0.4 0.2 - 1.2 MG/DL 08/23/2019 8:57 PM [facility] TOTAL PROTEIN S/P/B 7.0 6.4 - 8.2 G/DL 08/23/2019 8:57 PM [facility] ALBUMIN S/P/B 4.1 3.4 - 5.0 G/DL 08/23/2019 8:57 PM [facility] AST 33 15 - 37 U/L 08/23/2019 8:57 PM [facility] ALT 53 14 - 55 U/L 08/23/2019 8:57 PM [facility] ALKALINE PHOSPHATASE S/P/B 83 50 - 136 U/L 08/23/2019 8:57 PM [facility] ANION GAP 11.3 5 - 15 MMOL/L 08/23/2019 8:57 PM [facility] BUN CREATININE RATIO 19.3 6 - 26 08/23/2019 8:57 PM [facility] A/G RATIO 1.4 1.0 - 2.0 RATIO 08/23/2019 8:57 PM [facility] EGFR NON-AFR. AMER. 29(L) >90 ML/MIN/1.7 3 M2 08/23/2019 8:57 PM [facility] EGFR AFR. AMER. 34(L) >90 ML/MIN/1.7 3 M2 08/23/2019 8:57 PM [facility] Comment: NOTE: eGFR is not calculated for patients <18 years of age. This is an estimated GFR (CKD EPI) and should not be used for calculating drug doses. 08/23/2019 7:19 PM CDT Martha Ruiz NP LABORATORY Final Result [facility] [address] [place] [address], [place] [phone] * (ABNORMAL) CULTURE URINE (08/23/2019 7:19 PM CDT) SPEC DESCRIPTION URINE VOIDED 08/23/2019 6:48 PM CDT [facility] SPECIAL REQUESTS NO SPECIAL REQUEST 08/23/2019 6:48 PM CDT [facility] CULTURE RESULT 10,000-49,0 00 COL/ML ENTEROBACTE R CLOACAE COMPLEX (A) 08/26/2019 6:40 AM CDT [facility] URINE SPECIMEN FROM URETHRA / Unknown 08/23/2019 7:19 PM CDT 08/23/2019 7:20 PM CDT Narrative Organism Antibiotic Method Susceptibility Enterobacter cloacae complex CEFTRIAXONE FELIX (VITEK) >=64: Resistant Enterobacter cloacae complex CEFTAZIDIME FELIX (VITEK) >=64: Resistant Enterobacter cloacae complex CEFAZOLIN FELIX (VITEK) >=64: Resistant Enterobacter cloacae complex NITROFURANTOIN FELIX (VITEK ) 32: Sensitive Enterobacter cloacae complex GENTAMICIN FELIX (VITEK) <=1: Sensitive Enterobacter cloacae complex LEVOFLOXACIN FELIX (VITEK) <=0.12: Sensitive Enterobacter cloacae complex MEROPENEM FELIX (VITEK) <=0.25: Sensitive Enterobacter cloacae complex PIPRACIL/TAZO FELIX (VITEK) >=128: Resistant Enterobacter cloacae complex TRIMETH-SULFAMETH. FELIX (V ITEK) <=20: Sensitive Enterobacter cloacae complex CEFEPIME FELIX (VITEK) Sensitive Martha Ruiz NP MICROBIOLOGY - GENERAL ORDERA BLES Final Result [facility] [address] [place] [address], [place] [phone] [facility] [address] [place] [address], [place] [phone] * HEMOGLOBIN, GLYCOSYLATED (08/23/2019) HGB A1C 5.[address] ([address]), [place] 08/23/2019 Martha Ruiz NP LABORATORY Final Result [address] ([address]), [place] [address] [place] [address], [place] [phone] * URINALYSIS AUTO DIP (08/23/2019) COLOR (U) OTHER [address] ([address]), [place] TRANSPARENCY CLEAR [address] ([address]), [place] GLUCOSE (U) NEGATIVE NEGATIVE MG/DL [address] ([address]), [place] BILIRUBIN (U) NEGATIVE NEGATIVE [address] ([address]), [place] KETONES MG/DL (U) NEGATIVE NEGATIVE MG/DL [address] ([address]), [place] SPECIFIC GRAVITY (U) 1.015 1.001 - 1.[address] ([address]), [place] BLOOD (U) NEGATIVE NEGATIVE [address] ([address]), [place] U PH 5.0 5.0 - 9.[address] ([address]), [place] PROTEIN (U) NEGATIVE NEGATIVE mg/dL [address] ([address]), [place] UROBILINOGEN 0.2 0.2 - 1.0 EU/dL = mg/dL [address] ([address]), [place] NITRITES NEGATIVE NEGATIVE MG/DL [address] ([address]), [place] LEUKOCYTES (U) TRACE NEGATIVE [address] ([address]), [place] URINE SPECIMEN OBTAINED BY CLEAN CATCH PROCEDURE / Unknown 08/23/2019 Martha Ruiz CLERK TYPIST URINE ORDERABLES Final Result [facility] ([id number]), [place] [address] [place] [address], documented in this encounter Visit Diagnoses Diagnosis CLAUDIO (acute kidney injury) ([facility])- Primary Acute kidney failure, unspecified UTI symptoms Gastroesophageal reflux disease with esophagitis Type 2 diabetes mellitus with stage 3 chronic kidney disease, without long-term current use of insulin ([facility]) documented in this encounter Care Teams Women'S Soccer Coach Relationship Specialty Start Date End Date Noemi Barnard MD [address] [address] PCP - General INTERNAL MEDICINE 08/23/18 03/03/23 Joni Mckeon MD [facility]. [address] [address] [place] Public Relations Specialist CARDIOVASCULAR DISEASE 07/04/18 documented as of this encounter
--- OUTSIDE RECORDS SUMMARY | 2024-04-05 00:19 | XMS_ITS | Encounter Summary ---
Author Organization [facility] Address [address] [place] [address]. [place], [place] [id number] [place] [address] Care Team Providers Care Adjuster Name Role Phone Joni Mckeon MD Unavailable [phone] Noemi Barnard MD Primary Care Provider [phone] Encounter Details Date Type Department Care Team (Late st Contact Info) Description 08/18/2019 7:00 AM CDT Home Care Visit [address] [place] [address] Treasure Nicole, TACK CUTTER AIDE HOME VISIT Social History Tobacco Use [...] have Coronavirus / COVID-19? No / Unsure 08/01/2019 7:22 PM CDT documented as of this encounter Last Filed Vital Signs Vital Sign Reading Time Taken Comments Blood Pressure 100/52 08/18/2019 12:12 PM CDT Pulse 60 08/18/2019 12:12 PM CDT Temperature 36.2 ??C (97.1 ??F) 08/18/2019 12:12 PM C DT Respiratory Rate 20 08/18/2019 12:12 PM CDT Oxygen Saturation - - Inhaled [...] [facility] home health General No Malgorzata Brown [...] Notes Hygiene Needs Met with Assist of FAST BRIM POUNCER Description: Hygiene and safety needs will be met with assist of FAST BRIM POUNCER by 09/16/19 Client will progress towards increased independence in performance of self cares. Aide for personal cares/mobility/ADL's Met This Shift No Interventions Intervention Associated Problem/Goal Status Variance Visit Notes Aide Communication tool Description: Complete FAST BRIM POUNCER communication Problem:Aide for personal cares/mobility/ADL's Goal:Hygiene Needs Met with Assist of FAST BRIM POUNCER Completed Last BM Date: 08/17 Shampoo: Yes Bathing: Shower Nail Care: Yes Clothing change: Yes Bruised, open or red areas: None noted Nurse notified or aware: No Aide Check Last BM Description: Check last BM. Notify RN if last BM longer than 3 days ago Problem:Aide for personal cares/mobility/ADL's Goal:Hygiene Needs Met with Assist of FAST BRIM POUNCER Completed Aide inspect skin Description: Inspect skin for signs of pressure or irritation. After bathing reapply moisturizer. Report any observed or patient reported concerns to RN. Problem:Aide for personal cares/mobility/ADL's Goal:Hygiene Needs Met with Assist of FAST BRIM POUNCER Completed Aide transfers Description: Assist with transfers using walker. Problem:Aide for personal cares/mobility/ADL's Goal:Hygiene Needs Met with Assist of FAST BRIM POUNCER Completed Aide vitals Description: Obtain blood pressure, [...] cares/mobility/ADL's Goal:Hygiene Needs Met with Assist of FAST BRIM POUNCER Completed Aide tub/shower bath Description: Assistance with bathing using shower stall. Clean shower after bathing. Problem:Aide for personal cares/mobility/ADL's Goal:Hygiene Needs Met with Assist of FAST BRIM POUNCER Completed documented in this encounter Care Teams Adjuster Relationship Specialty Start Date End Date Noemi Barnard MD [facility]. [address] [address] PCP - General INTERNAL MEDICINE 08/23/18 03/03/23 Joni Mckeon MD [address] [address] [place] Director Of Neurology CARDIOVASCULAR DISEASE 07/04/18 documented as of this encounter
--- OUTSIDE RECORDS SUMMARY | 2024-04-05 00:19 | XMS_ITS | Encounter Summary ---
Author Organization [facility] Address [address] [place] [address]. [place], [place] [id number] [place] [address] Care Team Providers Care Professor Of Religion Name Role Phone Joni Mckeon MD Unavailable [phone] Noemi Barnard MD Primary Care Provider [phone] Encounter Details Date Type Department Care Team (Late st Contact Info) Description 08/21/2019 7:00 AM CDT Home Care Visit [address] [place] [address] Treasure Nicole, FIBERGLASS QUALITY TECHNICIAN AIDE HOME VISIT Social History Tobacco [...] Sign Reading Time Taken Comments Blood Pressure 113/68 08/21/2019 11:42 AM CDT Pulse 80 08/21/2019 11:42 AM CDT Temperature 36.1 ??C (96.9 ??F) 08/21/2019 11:42 AM C DT Respiratory Rate 18 08/21/2019 11:42 AM CDT Oxygen Saturation - - Inhaled [...] Notes Hygiene Needs Met with Assist of ARM MAKER Description: Hygiene and safety needs will be met with assist of ARM MAKER by 09/16/19 Client will progress towards increased independence in performance of self cares. Aide for personal cares/mobility/ADL's Met This Shift No Interventions Intervention Associated Problem/Goal Status Variance Visit Notes Aide Communication tool Description: Complete ARM MAKER communication Problem:Aide for personal cares/mobility/ADL's Goal:Hygiene Needs Met with Assist of ARM MAKER Completed Last BM Date: 08/20 Shampoo: Yes Bathing: Shower Nail Care: Yes Clothing change: Yes Bruised, open or red areas: None noted Nurse notified or aware: No Aide Check Last BM Description: Check last BM. Notify RN if last BM longer than 3 days ago Problem:Aide for personal cares/mobility/ADL's Goal:Hygiene Needs Met with Assist of ARM MAKER Completed Aide inspect skin Description: Inspect skin for signs of pressure or irritation. After bathing reapply moisturizer. Report any observed or patient reported concerns to RN. Problem:Aide for personal cares/mobility/ADL's Goal:Hygiene Needs Met with Assist of ARM MAKER Completed Aide transfers Description: Assist with transfers using walker. Problem:Aide for personal cares/mobility/ADL's Goal:Hygiene Needs Met with Assist of ARM MAKER Completed Aide vitals Description: Obtain blood pressure, [...] cares/mobility/ADL's Goal:Hygiene Needs Met with Assist of ARM MAKER Completed Aide tub/shower bath Description: Assistance with bathing using shower stall. Clean shower after bathing. Problem:Aide for personal cares/mobility/ADL's Goal:Hygiene Needs Met with Assist of ARM MAKER Completed documented in this encounter Care Teams Professor Of Religion Relationship Specialty Start Date End Date Noemi Barnard MD Three [facility]. [address] [address] PCP - General INTERNAL MEDICINE 08/23/18 03/03/23 Joni Mckeon MD [address] [address] Christopher Inspector Metal Can CARDIOVASCULAR DISEASE 07/04/18 documented as of this encounter
--- OUTSIDE RECORDS SUMMARY | 2024-04-05 00:19 | XMS_ITS | Encounter Summary ---
Author Organization [facility] Address [address] [place] [address]. [place], [place] [id number] [place] [address] Care Team Providers Care Director Regulatory Agency Name Role Phone Joni Mckeon MD Unavailable [phone] Noemi Barnard MD Primary Care Provider [phone] Encounter Details Date Type Department Care Team (Late st Contact Info) Description 08/22/2019 2:00 PM CDT Home Care Visit [address] [place] [address] Anita Swenson, RN [phone] (Work) SN HOME VISIT Social History [...] have Coronavirus / COVID-19? No / Unsure 08/23/2019 1:02 PM CDT documented as of this encounter Last Filed Vital Signs Vital Sign Reading Time Taken Comments Blood Pressure 106/54 08/22/2019 3:40 PM CDT Pulse 76 08/22/2019 3:40 PM CDT Temperature 36.8 ??C (98.2 ??F) 08/22/2019 3:40 PM CD T Respiratory Rate 18 08/22/2019 3:40 PM CDT Oxygen Saturation - - Inhaled [...] Visit Type -SN - Home Visit Discipline -Longterm Problems Problem Description Start Date Status Goals Interve ntions Discharge Planning Disciplines: Longterm Discharge Planning 07/19/2019 Active 1 goal linked to scheduled/docume nted intervention 1 goal intervention scheduled/documen ke in this visit Care Coordination Disciplines: Longterm Management and coordination of patient care 07/19/2019 Active 1 goal linked to scheduled/docume nted intervention 2 goal interventions scheduled/documen ke in this visit A Plan for Next Visit Disciplines: Longterm Plan for next visit 07/19/2019 Active 1 goal linked to scheduled/docume nted intervention 1 goal intervention scheduled/documen ke in this visit Home Safety Disciplines: Longterm Management and evaluation of patient's home environment 07/19/2019 Active 1 goal linked to scheduled/docume nted intervention 4 goal interventions scheduled/documen ke in this visit Medications Disciplines: Longterm Management of home medications 07/19/2019 Active 1 goal linked to scheduled/docume nted intervention 3 goal interventions scheduled/documen ke in this visit Management and Evaluation of the Care Plan Disciplines: Longterm SN for management and evaluation of skilled services 07/19/2019 Active 1 goal linked to scheduled/docume nted intervention 1 goal intervention scheduled/documen ke in this visit Skilled Observation and Assessment Disciplines: Longterm Skilled O & A as specified by the physician 07/19/2019 Active - 2 problem interventions scheduled/documen ke in this visit Nutritional concerns Disciplines: Longterm Inadequate/imbala nced nutritional concerns 08/02/2019 Active 1 [...] Completed documented in this encounter Care Teams Director Regulatory Agency Relationship Specialty Start Date End Date Noemi Barnard MD [facility]. [address] [address] PCP - General INTERNAL MEDICINE 08/23/18 03/03/23 Joni Mckeon MD [facility]. [address] [address] [place] Printing Machine Mechanic CARDIOVASCULAR DISEASE 07/04/18 documented as of this encounter
--- OUTSIDE RECORDS SUMMARY | 2024-04-05 00:19 | XMS_ITS | Encounter Summary ---
Author Organization [facility] Address [address] [place] [address]. [place], [place] [address] [place] [address] Care Team Providers Care Oral Communication Instructor Name Role Phone Joni Mckeon MD Unavailable [phone] Noemi Barnard MD Primary Care Provider [phone] Encounter Details Date Type Department Care Team (Latest Contact Info) Description 08/17/2019 1:30 PM CDT Home Care Visit [address] [place] [address] Gladys Kinney, RN [phone] (Work) SN OASIS RESUMPTION OF CARE Social History Tobacco Use Types Packs/Day Years [...] Sign Reading Time Taken Comments Blood Pressure 128/62 08/17/2019 11:34 AM CDT Pulse 68 08/17/2019 11:29 AM CDT Temperature 35.7 ??C (96.2 ??F) 08/17/2019 11:29 AM C DT Respiratory Rate 18 08/17/2019 11:29 AM CDT Oxygen Saturation - - Inhaled Oxygen Concentration - - Weight 59 kg (130 lb) 08/17/2019 11:29 AM CDT Height 160 cm (5' 3 ) 08/17/2019 11:29 AM CDT Body Mass Index 23.03 08/17/2019 11:29 AM CDT documented in this encounter Functional [...] Type Associated Problems Recent Progress Patient-Stated? 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 COORDINATOR HOME WITH DAUGHTER General No Laura Cheatham RN documented as of this encounter Visit Diagnoses Not on filedocumented in this encounter Home Health Visit - Care Plan Visit Details Visit Type -SN - OASIS Resum ption of Care Discipline -Custodial Problems Problem Description Start Date Status Goals Interve ntions Discharge Planning Disciplines: Custodial Discharge Planning 07/19/2019 Active 1 goal linked to scheduled/docume nted intervention 1 goal intervention scheduled/documen ke in this visit Care Coordination Disciplines: Custodial Management and coordination of patient care 07/19/2019 Active 1 goal linked to scheduled/docume nted intervention 2 goal interventions scheduled/documen ke in this visit A Plan for Next Visit Disciplines: Custodial Plan for next visit 07/19/2019 Active 1 goal linked to scheduled/docume nted intervention 1 goal intervention scheduled/documen ke in this visit Home Safety Disciplines: Custodial Management and evaluation of patient's home environment 07/19/2019 Active 1 goal linked to scheduled/docume nted intervention 4 goal interventions scheduled/documen ke in this visit Medications Disciplines: Custodial Management of home medications 07/19/2019 Active 1 goal linked to scheduled/docume nted intervention 3 goal interventions scheduled/documen ke in this visit Management and Evaluation of the Care Plan Disciplines: Custodial SN for management and evaluation of skilled services 07/19/2019 Active 1 goal linked to scheduled/docume nted intervention 1 goal intervention scheduled/documen ke in this visit Skilled Observation and Assessment Disciplines: Custodial Skilled O & A as specified by the physician 07/19/2019 Active - 2 problem interventions scheduled/documen ke in this visit Nutritional concerns Disciplines: Custodial Inadequate/imbala nced nutritional concerns 08/02/2019 Active 1 [...] of Care Achieved Completed Care plan updates: Developed at this visit and collaborated with patient and patient telephone claims representative Care Coordination Description: Clinician to review care [...] Completed documented in this encounter Care Teams Oral Communication Instructor Relationship Specialty Start Date End Date [facility] [address] [address] PCP - General INTERNAL MEDICINE 08/23/18 03/03/23 [facility] [address] [place] 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
--- OUTSIDE RECORDS SUMMARY | 2024-04-05 00:19 | XMS_ITS | Encounter Summary ---
Author Organization [facility] Address [address] [place] [address]. [place], [place] [address] [place] [address] Care Team Providers Care Health Physics Technician Name Role Phone Joni Mckeon MD Unavailable [phone] Noemi Barnard MD Primary Care Provider [phone] Encounter Details Date Type Department Care Team (Latest Contact Info) Description 08/22/2019 12:30 PM CDT Home Care Visit [address] [place] [address] Barbie Morel, PT [address] [place] [address] PT INITIAL EVALUATION Social History Tobacco Use Types Packs/Day Years [...] Sign Reading Time Taken Comments Blood Pressure 100/54 08/22/2019 1:12 PM CDT Pulse 74 08/22/2019 1:12 PM CDT Temperature 35.6 ??C (96 ??F) 08/22/2019 1:12 PM CDT Respiratory Rate 18 08/22/2019 1:12 PM CDT Oxygen Saturation 98% 08/22/2019 1:12 PM CDT Inhaled Oxygen Concentration - - [...] General No Malgorzata Brown MSW HOME WITH [facility] General No Laura Cheatham, RN documented as of this encounter Visit Diagnoses Not on filedocumented in this encounter Home Health Visit - Care Plan Visit Details Visit Type -PT - Initial Lisa lugo Discipline -Physical Therapy Problems Problem Description Start [...] alone, and dyspnea with activity/ exertion. Active 1 goal linked to scheduled/docume nted intervention 1 problem intervention scheduled/documen ke in this visit Goals Goal Associated Problem Outcome Goal Met? Visit Notes Progress towards discharge Description: Documentation of ongoing progress towards goals through DC Discharge Planning Progressing No Coordination of Care/Interpretive Services Description: Coordination of care will be achieved as needed through telecommunications during entire episode of care. Care Coordination Met This Shift No Provide Continuity of Care Description: To provide continuity of care A Plan for Next Visit Met This Shift No Therapies - Understanding of Medications - Physical Therapy Description: patient will verbalize understanding of medication regimen by 09/15/19. Therapies Medications Progressing No Remain Safe in Home Description: Patient will remain safe in their home as evidenced by no falls or injuries, through 09/15/19. Patient will report a minimum of three fall prevention techniques without cues in order to demonstrate decreased fall risk by 09/08/19 Home Safety Progressing No Physical Therapy - Vital Signs Description: Vital signs to be monitored as needed including pulse oximetry and changes or concerns reported to supervising therapist, manager case management, and or provider through plan of care. Therapies Vitals Met This Shift No PT Gait Training Description: Patient to ambulate independently indoors with device as needed for 250 ft or greater to assist with facility distances by 09/15/19. PT Gait Training Progressing No PT Therapeutic Exercise Description: Patient to demonstrate independence with HEP to increase LE strength to 4/5 in order to improve patient's ind with mobility and activity tolerance by 09/15/19. Patient will demonstrate a decrease in fall risk as evidenced by an improved Tug score to 26 sec or less by 09/15/19. PT Therapeutic Exercise Progressing No Physical Therapy - Transfer Training Description: Patient to perform bed/furniture transfers independently and safely by 09/08/19 Therapies Transfer Training Progressing No Patient meets homebound requirements Description: Patient is homebound which is evidenced by BLE weakness with left weaker than right, decreased s/d balance maintenance with TUG of 30 seconds, instability with gait when unsupported, decreased activity tolerance as evidenced by 30 second sit to stand of 4, inability to leave home alone, and dyspnea with activity/ exertion. Homebound Status Met This Shift No Interventions Intervention Associated Problem/Goal Status Variance Visit Notes Plan Towards Discharge Description: Document patient progress towards discharge. Problem:Discharge Planning Goal:Progress towards discharge Completed Discussed physical therapy poc/frequency with patient agreeable. Care Coordination Description: Coordinate care with necessary care team members as needed regarding PT POC or medical conditions or concerns. Problem:Care Coordination Goal:Coordination of Care/Interpretive Services Completed Clinician reviewed care plan with patient with patient agreeable to plan of care and agrees to participate in care. Plan for Next Visit Description: Next visit plan summation Problem:A Plan for Next Visit Goal:Provide Continuity of Care Completed Plan to initiate bilat le ther ex, progress gait distance to facility distances in hallway, and patient instruction for home safety/hep for strengthening. Review Medications Description: Skilled PT will record any new, changed or discharged medications as well as will educate the patient on side effects and interactions,. PT to contact MD with any sever/major interactions identified with new or changed medications. Problem:Therapies Medications Goal:Therapies - Understanding of Medications - Physical Therapy Completed No medication changes this visit with medication list left in patient's home. Instruct Home Safety Description: Instruct patient on [...] Problem:Home Safety Goal:Remain Safe in Home Completed Instructed patient to change positions every 1-2 hours for skin integrity and to drink 6-8 glasses of fluids daily for adequate hydration. Instructed patient on clear pathways, no throw rugs, tape down edges of large area rugs, proper lighting, to use wwalker at all times, slow position changes, phone within reach at all times, and to use a nightlight at night per home safety/fall prevention handout in soc packet. Therapies - Vitals Description: PT, manager case management or physician to be contacted if pulse ox consistently below 88 percent, temp greater than 100.5, Systolic BP greater than 180 or less than 90, diastolic BP greater than 90 or less than 50, Heart rate consistently greater than 110 or less than 50, and resting respiratory rate less than 12 or greater than 24. Problem:Therapies Vitals Goal:Physical Therapy - Vital Signs Completed All vitals wnl with vitals obtained prior to treatment with md notified of bp. PT gait training Description: Evaluate and instruct patient in gait training using 4-wheeled walker. Problem:PT Gait Training Goal:PT Gait Training Completed Patient ambulated 125 ft, 20 ft without device(tendency to furniture surf) with sba/cga and with 4 wwalker with sba. Increased instability noted when ambulating unsupported. Patient ambulates with shuffling gait with left le worse than right(increased left le weakness compared to right le), decreased step length bilat, slightly flexed posture, and dyspnea with exertion wtih patient requesting to ambulate in apartment on this date. No pain reported during/after ambulation. Verbal cues for proper breathing technique to minimize dyspnea with exertion and upright posture with use of 4wwalker at all times for gait safety. Instructed patient to perform long walks at least daily to bid for cardiovascular benefits. Patient verbalizes understanding. Therapies - Therapeutic Exercise Description: HEP for BLE strength and activity tolerance improvements Problem:PT Therapeutic Exercise Goal:PT Therapeutic Exercise Completed with variance Defer to next visit Patient fatigued after evaluation with bp rechecked 104/60. Le seated hep handout left in home with plans to initiate at next visit. Therapies Balance Description: Assess balance and provide NMRE activities in standing to increase static and dynamic balance in order to improve gait pattern and decrease fall risk. Problem:PT Therapeutic Exercise Goal:PT Therapeutic Exercise Completed Patient completd tug test in 30 sec with recent fall prior to hospitalization and is struggling with low bp readings on this date. Md office notified. Therapies - Transfer Training Description: Evaluate and instruct patient Roxana in safe transfers using appropriate body mechanics and necessary equipment to perform safe transfers. Problem:Therapies Transfer Training Goal:Physical Therapy - Transfer Training Completed Patient is sba with sit to stand/stand to sit/bed-chair transfers with patient pushing up from surface with sit to stand. Verbal cues for slow position changes. Therapies Falls - Assess Appropriateness for Homecare Problem:Homebound Status Completed documented in this encounter Care Teams Health Physics Technician Relationship Specialty Start Date End Date Noemi Barnard MD [facility]. [address] [place] [address] PCP - General INTERNAL MEDICINE 08/23/18 03/03/23 Joni Mckeon MD [facility]. [address] [place] [address] Christopher Zipper Trimmer Hand CARDIOVASCULAR DISEASE 07/04/18 documented as of this encounter
--- OUTSIDE RECORDS SUMMARY | 2024-04-05 00:19 | XMS_ITS | Encounter Summary ---
Author Organization [facility] Address [address] [place] [address]. [place] [address] [place] [address] Care Team Providers Care Substitute School Nurse Name Role Phone Joni Mckeon MD Unavailable [phone] Noemi Barnard MD Primary Care Provider [phone] Reason for Visit * Reason Onset Date Comments Hospital Follow Up 08/19/2019 Encounter Details Date Type Department Care Team (Late st Contact Info) Description 08/19/2019 Telephone [facility] Med/Surg [address] [place] [address] Donna Chaves, RN Hospital Follow Up Social History Tobacco Use [...] documented in this encounter Progress Notes * Donna Chaves RN - 08/19/2019 5:02 PM CDT Patient states she is doing pretty good, still a little weak but getting around okay. Home health is following her and she has follow up appointments scheduled. No further questions or concerns. documented in this encounter Plan of Treatment Not on file documented as of this encounter Goals Goal Patient Goal Type Associated Problems Recent Progress Patient-Stated? Author Improve Home Support System General No Laura Cheatham RN Return home with [facility] home health General No Malgorzata Brown MSW HOME WITH DAUGHTER General No Laura Cheatham, RN documented as of this encounter Visit Diagnoses Not on filedocumented in this encounter Care Teams Substitute School Nurse Relationship Specialty Start Date End Date Noemi Barnard MD [facility]. [address] [address] PCP - General INTERNAL MEDICINE 08/23/18 03/03/23 Joni Mckeon MD Three [facility]. 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
--- OUTSIDE RECORDS SUMMARY | 2024-04-05 00:19 | XMS_ITS | Encounter Summary ---
Author Organization [facility] Address [address] [place] [address]. [place], [place] [address] [place] [address] Care Team Providers Care Dispensing Optician Name Role Phone oJni Mckeon MD Unavailable [phone] Neomi Barnard MD Primary Care Provider [phone] Encounter Details Date Type Department Care Team (Late st Contact Info) Description 08/18/2019 1:15 PM CDT Home Care Visit [address] [place] [address] Gladys Kinney, RN [phone] (Work) SN TELEPHONE CALL Social History Tobacco Use Types Packs/Day Years [...] General No Malgorzata Brown MSW HOME WITH [facility] General No Laura Cheatham RN documented as of this encounter Visit Diagnoses Not on filedocumented in this encounter Home Health Visit - Care Plan Visit Details Visit Type -SN - Telephone C all Discipline -Snf Problems Problem Description Start Date [...] visit A Plan for Next Visit Disciplines: Snf [...] towards discharge. Problem:Discharge Planning Goal:Progress towards discharge Scheduled Care Plan Collaboration Description: Care Plan Collaboration Problem:Care Coordination Goal:Coordination of Care Achieved Scheduled Care Coordination Description: Clinician to review care plan with patient/caregiver(s). Patient/caregiver agrees to plan of care and agree to participate in care Problem:Care Coordination Goal:Coordination of Care Achieved Scheduled Plan for Next Visit Description: Next visit plan summation Problem:A Plan for Next Visit Goal:Provide Continuity of Care Scheduled Instruct Home Safety Description: Instruct patient on strategies/modifications to home environment. activity: up as tolerated Problem:Home Safety Goal:Remain Safe in Home Scheduled Instruct Disaster/Evacuation Plan Description: Instruct in planning and execution of disaster/evacuation plan. Assist patient in development or revision of plan as indicated. Problem:Home Safety Goal:Remain Safe in Home Scheduled Skilled Assessment Risk for Injury Description: Evaluate patient's home environment for potential safety risks, and educate patient on identified safety risks. Problem:Home Safety Goal:Remain Safe in Home Scheduled Instruct injury prevention Description: Instruct patient in strategies to prevent injury - modifications to the home environment, decrease clutter, frequent turning/repositioning, not to use ice/heat directly on the skin, choking precautions. Problem:Home Safety Goal:Remain Safe in Home Scheduled Medication Reconciliation Description: Reconcile medications and identify any unnecessary therapeutic duplication. Each clinician to perform bottle check weekly on their first visit of the week. Problem:Medications Goal:Understanding of Medication Regimen Scheduled Skilled assessment medications Description: Assess patient ability to manage medications. Provide detailed instruction on proper administration and medication management. If medications are being managed appropriately, check completed. Problem:Medications Goal:Understanding of Medication Regimen Scheduled Instruct medications Description: Assess effectiveness of current treatment regimen, including purpose, side effects, food/drug interactions, storage and potential complications, and notify physician of changes needed. Any changes will be reviewed with patient/caregiver, added to medication list, and updated on medication list in home. Patient to take medications from medication box set up by Caregiver. Problem:Medications Goal:Understanding of Medication Regimen Scheduled Management and evaluation of care plan Description: SN to visit for management and evaluation of unskilled and skilled care providers. Evaluate and manage it to prevent medical complications. Notify physician of the need for modifications. Problem:Management and Evaluation of the Care Plan Goal:SN Management and Evaluation of the Care Plan Scheduled Skilled assessment knowledge deficit Description: SN to perform general assessment to include height, weight, vital signs, and temperature; General assessment of systems: pulmonary, cardiovascular, neurologic, gastrointestinal, endocrine, hematologic, musculoskeletal, renal/urinary, integumentary, reproductive, psychosocial/psychiatric/me ntal and Other: and report any abnormalities or concerns to the physician. Vital Signs -report to provider if: BP: systolic blood pressure <90 or >160; diastolic blood pressure <60 or >90; Temperature: >100.5 F; Pulse: <60 or >100 bpm; Respiratory Rate: <12 or >28 /min; SPO2: <90%. Problem:Skilled Observation and Assessment Scheduled Assess nutritional status Description: Skilled nurse to educate on diet each visit, patient to remain on heart healthy diet. Problem:Skilled Observation and Assessment Scheduled Skilled assessment nutrition Description: Assess patient's current nutritional status, factors that affect the patient's ability to purchase and prepare meals, food preferences, current eating practices, and current knowledge of intake requirements of. Assist with meal planning and instruct on nutritional requirements of regular diet. Problem:Nutritional concerns Goal:Nutritional Status for Optimal Health Scheduled documented in this encounter Care Teams Dispensing Optician Relationship Specialty Start Date End Date Noemi Barnard MD [address] [address] PCP - General INTERNAL MEDICINE 08/23/18 03/03/23 Joni Mckeon MD [address] [address] Christopher Property Manager CARDIOVASCULAR DISEASE 07/04/18 documented as of this encounter
--- OUTSIDE RECORDS SUMMARY | 2024-04-05 00:19 | XMS_ITS | Encounter Summary ---
Author Organization [facility] Address [address] [place] [address]. [place] [address] [place] [address] Care Team Providers Care Receiving Teller Name Role Phone Joni Mckeon MD Unavailable [phone] Noemi Barnard MD Primary Care Provider [phone] Reason for Visit * Reason Onset Date Comments Hospital Follow Up 08/24/2019 Encounter Details Date Type Department Care Team (Late st Contact Info) Description 08/24/2019 Telephone [facility] Care Management [address] [place] [address] Malgorzata Brown, [facility] Follow Up Social History Tobacco Use [...] [facility] home health General No Malgorzata Brown, PAINT MAKER HOME WITH DAUGHTER General No Laura Cheatham, RN documented as of this encounter Visit Diagnoses Not on filedocumented in this encounter Care Teams Receiving Teller Relationship Specialty Start Date End Date Noemi Barnard MD [facility]. [place] [address] [place] [address] PCP - General INTERNAL MEDICINE 08/23/18 03/03/23 Joni Mckeon MD [facility] [address] [place] [address] Christopher Transmission Rebuilder CARDIOVASCULAR DISEASE 07/04/18 documented as of this encounter
--- OUTSIDE RECORDS SUMMARY | 2024-04-05 00:19 | XMS_ITS | Encounter Summary ---
Author Organization [facility] Address [address] [place] [address]. [place] [address] [place] [address] Care Team Providers Care Cotton Bag Clipper Name Role Phone Joni Mckeon MD Unavailable [phone] Noemi Barnard MD Primary Care Provider [phone] Reason for Visit * Reason Onset Date Comments Information 08/16/2019 TCM Encounter Details Date Type Department Care Team (Late st Contact Info) Description 08/16/2019 Telephone [facility] Family Medicine - [place] [address] [address] [place] [address] [place] [address] Information (TCM) Social History Tobacco Use Types Packs/Day Years [...] as of this encounter Functional Status * Question Answer Date of Assessment Author Status Do you have serious difficulty walking or climbing stairs? Yes 08/16/2019 11:28 AM Laila Mina RN Acti ve Do you have difficulty dressing or bathing? No 08/16/2019 11:28 AM Laila Mina RN Active Because of a physical, mental, or emotional condition, do you have difficulty doing errands alone such as visiting a doctor's office or shopping? Yes 08/16/2019 11:28 AM Yolanda Mina i, RN Active * RETIRED Are you deaf or do [...] serious difficulty concentrating, remembering, or making decisions? No 08/16/2019 11:28 AM Laila Mina RN Active * Because of a physical, mental, or emotional condition, do you have serious difficulty concentrating, remembering, or making decisions? Answer Entry Date Author Status No 08/16/2019 11:28 AM Laila Mina R N Active documented in this encounter Progress Notes * Melanie Chavez RN - 08/16/2019 1:19 PM CDT noted * Ana Cristina Calvert - 08/16/2019 1:02 PM CDT Patient only wants to see Martha Ruiz, appt changed, still coming on 08/23/19 * Melanie Chavez RN - 08/16/2019 11:31 AM CDT Will need to tuyet pt tomorrow * Le Russell - 08/16/2019 11:27 AM CDT TCM [facility] 07/29-08/15 Acute Kidney Injury/UTI Dr [place] pt [id number] documented in this encounter Plan of Treatment Not on file documented as of this encounter Goals Goal Patient Goal Type Associated Problems Recent Progress Patient-Stated? Author Improve Home Support System General No Laura Cheatham, RN Return home with [facility] home health General No Malgorzata Brown, CHILD PSYCHOLOGY TEACHER HOME WITH DAUGHTER General No Laura Cheatham RN documented as of this encounter Visit Diagnoses Not on filedocumented in this encounter Care Teams Cotton Bag Clipper Relationship Specialty Start Date End Date Noemi Barnard MD [facility]. [address] [id number] PCP - General INTERNAL MEDICINE 08/23/18 03/03/23 Joni Mckeon MD [facility] [place] [address] [place] [address] Christopher Music Sound Light Technician CARDIOVASCULAR DISEASE 07/04/18 documented as of this encounter
--- OUTSIDE RECORDS SUMMARY | 2024-04-05 00:19 | XMS_ITS | Encounter Summary ---
Author Organization [facility] Address [address] [place] [address]. [place], [place] [address] [place] [address] Care Team Providers Care It Service Continuity Supervisor Name Role Phone Joni Mckeon MD Unavailable [phone] Noemi Barnard MD Primary Care Provider [phone] Reason for Visit * Reason Comments Weakness Encounter Details Date Type Department Care Team (Late st Contact Info) Description 08/24/2019 2:30 PM CDT Home Care Visit [facility] Home Care [address] [place] [address] [place] [address] Treasure Brown LPN SN HOME VISIT Social History Tobacco [...] Sign Reading Time Taken Comments Blood Pressure 110/80 08/24/2019 2:45 PM CDT Pulse 56 08/24/2019 2:45 PM CDT Temperature 36.2 ??C (97.1 ??F) 08/24/2019 2:45 PM CD T Respiratory Rate 98 08/24/2019 2:45 PM CDT Oxygen Saturation 98% 08/24/2019 2:45 PM CDT Inhaled Oxygen Concentration - - [...] Status No 08/16/2019 11:28 AM CDT Laila Ljuan R N Active documented in this encounter Plan of Treatment Not on file documented as of this encounter Goals Goal Patient Goal Type Associated Problems Recent Progress Patient-Stated? Author Improve Home Support System General No Laura Cheatham, RN Return home with [facility] home health General No Malgorzata Brown MSW [...] Next Visit Goal:Provide Continuity of Care Completed Skilled nurse to continue assessing body system, gait for stability, fall precautions, infection prevention, medication management and education. Instruct Home Safety Description: Instruct patient on strategies/modificatio ns to home environment. activity: up as tolerated Problem:Home Safety Goal:Remain Safe in Home Completed Skilled nurse entered clean residence with open pathways. Instruct Disaster/Evacuation Plan Description: Instruct in planning [...] Caregiver. Problem:Medications Goal:Understanding of Medication Regimen Completed Skilled nurse educated patient on omeprazole side effects, intended effects, and schedule of administration. Patient verbalized understanding. Management and evaluation of care plan [...] diet. Problem:Skilled Observation and Assessment Completed Skilled nurse educated patient on proper hydration including protein, fruits, and vegetables. Patient verbalized understanding. Skilled assessment nutrition Description: Assess patient's current nutritional status, factors that affect the patient's ability to purchase and prepare meals, food preferences, current eating practices, and current knowledge of intake requirements of. Assist with meal planning and instruct on nutritional requirements of regular diet. Problem:Nutritional concerns Goal:Nutritional Status for Optimal Health Completed documented in this encounter Care Teams It Service Continuity Supervisor Relationship Specialty Start Date End Date Noemi Barnard MD [facility]. [address] [address] PCP - General INTERNAL MEDICINE 08/23/18 03/03/23 Joni Mckeon MD [facility]. [address] [address] Christopher System Support Technician CARDIOVASCULAR DISEASE 07/04/18 documented as of this encounter
--- OUTSIDE RECORDS SUMMARY | 2024-04-05 00:19 | XMS_ITS | Encounter Summary ---
Author Organization [facility] Address [address] [place] [address]. [place], [place] [address] [place] [address] Care Team Providers Care Stake Driver Name Role Phone Joni Mckeon MD Unavailable [phone] Noemi Barnard MD Primary Care Provider [phone] Encounter Details Date Type Department Care Team (Late st Contact Info) Description 08/24/2019 Orders Only [facility] Family & Internal Medicine [address] [address] Martha Ruiz, CHIEF RESOURCE OFFICER Social History Tobacco Use Types Packs/Day Years [...] as of this encounter Results * (ABNORMAL) BASIC METABOLIC PANEL (08/28/2019 10:08 AM CDT) [facility] GLUCOSE 199(H) 70 - 99 MG/DL 08/28/2019 10:36 AM CDT [facility] BUN 17 7 - 18 MG/DL 08/28/2019 10:36 AM CDT [facility] CREATININE S/P/B 1.22(H) 0.55 - 1.02 MG/DL 08/28/2019 10:36 AM T [facility] SODIUM S/P/B 138 136 - 145 MMOL/L 08/28/2019 10:36 AM CDT [facility] POTASSIUM S/P/B 3.9 3.5 - 5.1 MMOL/L 08/28/2019 10:36 AM CDT [facility] CHLORIDE S/P/B 102 100 - 108 MMOL/L 08/28/2019 10:36 AM CDT [facility] CO2 27.4 21 - 32 MMOL/L 08/28/2019 10:36 AM CDT [facility] CALCIUM S/P/B 8.9 8.5 - 10.1 MG/DL 08/28/2019 10:36 AM CDT [facility] ANION GAP 8.6 5 - 15 MMOL/L 08/28/2019 10:36 AM CDT [facility] BUN CREATININE RATIO 13.9 6 - 26 08/28/2019 10:36 AM T [facility] EGFR NON-AFR. AMER. 41(L) >90 ML/MIN/1.7 3 M2 08/28/2019 10:36 AM T [facility] EGFR AFR. AMER. 47(L) >90 ML/MIN/1.7 3 M2 08/28/2019 10:36 AM T [facility] Comment: NOTE: eGFR is not calculated for patients <18 years of age. This is an estimated GFR (CKD EPI) and should not be used for calculating drug doses. 08/28/2019 10:0 8 AM CDT us Martha Ruiz CHIEF RESOURCE OFFICER LABORATORY Final Result [facility] [address] [place] [address], [place] [phone] documented in this encounter Visit Diagnoses Diagnosis Dehydration- Primary documented in this encounter Care Teams Stake Driver Relationship Specialty Start Date End Date Noemi Barnard MD [facility] [place]. [address] [address] PCP - General INTERNAL MEDICINE 08/23/18 03/03/23 Joni Mckeon MD [facility] [place]. [address] [address] Christopher Social Services Coordinator CARDIOVASCULAR DISEASE 07/04/18 documented as of this encounter
--- OUTSIDE RECORDS SUMMARY | 2024-04-05 00:19 | XMS_ITS | Encounter Summary ---
Author Organization [facility] Address [address] [place] [address]. [place], [place] [address] [place] [address] Care Team Providers Care Engineer Fishing Vessel Name Role Phone Joni Mckeon MD Unavailable [phone] Noemi Barnard MD Primary Care Provider [phone] Encounter Details Date Type Department Care Team (Latest Contact Info) Description 08/23/2019 Travel Social History Tobacco Use Types Packs/Day [...] No Laura Cheatham, RN Return home with [facility] home health General No Malgorzata Brown MSW HOME WITH DAUGHTER General No Laura Cheatham, RN documented as of this encounter Visit Diagnoses Not on filedocumented in this encounter Care Teams Engineer Fishing Vessel Relationship Specialty Start Date End Date Noemi Barnard MD [facility]. [address] [address] PCP - General INTERNAL MEDICINE 08/23/18 03/03/23 Joni Mckeon MD [facility]. [facility] [address] [place] [address] Christopher Knife Sharpener CARDIOVASCULAR DISEASE 07/04/18 documented as of this encounter
--- OUTSIDE RECORDS SUMMARY | 2024-04-05 00:19 | XMS_ITS | Encounter Summary ---
Author Organization [facility] Address [address] [place] [address]. [place], [place] [address] [place] [address] Care Team Providers Care Allergist Name Role Phone Joni Mckeon MD Unavailable [phone] Noemi Barnard MD Primary Care Provider [phone] Encounter Details Date Type Department Care Team (Latest Contact Info) Description 08/23/2019 7:01 PM CDT - 08/23/2019 11:59 PM CDT Hospital Encounter [facility] [address] [place], [place] [id number] Martha Ruiz, MIKE Discharge Disposition: Home or [...] health clinician.] 1 g 08/16/2019 09/20/19 20 omeprazole 20 MG capsuleIndication s:Gastroesophagea l reflux disease with esophagitis Take 1 capsule (20 mg total) by mouth daily. 30 capsule 1 08/23/2019 08/25/19 20 OMEPRAZOLE 20 MG capsuleIndication s:Gastroesophagea l reflux disease with esophagitis TAKE 1 CAPSULE(20 MG) BY MOUTH DAILY 90 capsule 08/25/2019 12/05/19 20 POTASSIUM CHLORIDE CR 10 MEQ tabletIndications :Essential hypertension [The details of the medication are not available because there are pending changes by a home health clinician.] 10 tablet 07/24/2019 08/24/19 20 PRAVASTATIN 40 MG tabletIndications :Hyperlipidemia TAKE [...] General Laura Akbar, RN Return home with [facility] home health General Malgorzata Mchugh, MONOMER RECOVERY OPERATOR HOME WITH DAUGHTER General Laura Akbar, RN documented as of this encounter Visit Diagnoses Not on filedocumented in this encounter Care Teams Allergist Relationship Specialty Start Date End Date Noemi Barnard MD [address] [address] PCP - General INTERNAL MEDICINE 08/23/18 03/03/23 Joni Mckeon MD [facility]. [address] [address] Arcadia Lesson Instructor CARDIOVASCULAR DISEASE 07/04/18 documented as of this encounter
--- OUTSIDE RECORDS SUMMARY | 2024-04-05 00:19 | XMS_ITS | Encounter Summary ---
Author Organization [facility] Address [address] [place] [address]. [place] [address] [place] [address] Care Team Providers Care Barrel Lathe Operator Outside Name Role Phone Joni Mckeon MD Unavailable [phone] Noemi Barnard MD Primary Care Provider [phone] Encounter Details Date Type Department Care Team (Latest Contact Info) Description 08/23/2019 6:47 PM CDT - 08/23/2019 7:00 PM CDT Hospital Encounter [facility] [id number] [place], [place] [id number] Martha Ruiz, MIKE Discharge Disposition: Home or [...] General Laura Akbar, RN Return home with [facility] home health General Malgorzata Mchugh, ELECTRICAL APPLIANCE MECHANIC HOME WITH DAUGHTER General Laura Akbar, RN documented as of this encounter Procedures Procedure Name Priority Date/Time Associated Diagnosis Comments URINE BACTERIA CULTURE Routine 0 7:19 PM CDT CLAUDIO (acute kidney injury) UTI symptoms COMPREHENSIVE METABOLIC PANEL Routine 08/23/2019 7:19 PM CDT CLAUDIO (acute kidney injury) Gastroesophageal reflux disease with esophagitis CBC W/DIFF AUTOMATED Routine 08/23/2019 7:19 PM CDT CLAUDIO (acute kidney injury) Gastroesophageal reflux disease with esophagitis documented in this encounter Results * (ABNORMAL) COMPREHENSIVE METABOLIC PANEL (08/23/2019 7:19 PM CDT) GLUCOSE 107(H) 70 - 99 MG/DL 08/23/2019 8:57 PM CDT [facility] BUN 31(H) 7 - 18 MG/DL 08/23/2019 8:57 PM CDT [facility] CREATININE S/P/B 1.61(H) 0.55 - 1.02 MG/DL 08/23/2019 8:57 PM T [facility] SODIUM S/P/B 138 136 - 145 MMOL/L 08/23/2019 8:57 PM T [facility] POTASSIUM S/P/B 4.5 3.5 - 5.1 MMOL/L 08/23/2019 8:57 PM T [facility] CHLORIDE S/P/B 99(L) 100 - 108 MMOL/L 08/23/2019 8:57 PM [facility] CO2 27.7 21 - 32 MMOL/L 08/23/2019 8:57 PM T [facility] CALCIUM S/P/B 9.6 8.5 - 10.1 MG/DL 08/23/2019 8:57 PM T [facility] BILIRUBIN TOTAL S/P/B 0.4 0.2 - 1.2 MG/DL 08/23/2019 8:57 PM [facility] TOTAL PROTEIN S/P/B 7.0 6.4 - 8.2 G/DL 08/23/2019 8:57 PM T [facility] ALBUMIN S/P/B 4.1 3.4 - 5.0 G/DL 08/23/2019 8:57 PM T [facility] AST 33 15 - 37 U/L 08/23/2019 8:57 PM [facility] ALT 53 14 - 55 U/L 08/23/2019 8:57 PM [facility] ALKALINE PHOSPHATASE S/P/B 83 50 - 136 U/L 08/23/2019 8:57 PM T [facility] ANION GAP 11.3 5 - 15 MMOL/L 08/23/2019 8:57 PM CDT [facility] BUN CREATININE RATIO 19.3 6 - 26 08/23/2019 8:57 PM CDT [facility] A/G RATIO 1.4 1.0 - 2.0 RATIO 08/23/2019 8:57 PM CDT [facility] EGFR NON-AFR. AMER. 29(L) >90 ML/MIN/1.7 3 M2 08/23/2019 8:57 PM CDT [facility] EGFR AFR. AMER. 34(L) >90 ML/MIN/1.7 3 M2 08/23/2019 8:57 PM CDT [facility] Comment: NOTE: eGFR is not calculated for patients <18 years of age. This is an estimated GFR (CKD EPI) and should not be used for calculating drug doses. 08/23/2019 7:19 PM CDT us Martha Ruiz NP LABORATORY Final Result [facility] [address] [place] [address], * (ABNORMAL) CBC W/DIFF AUTOMATED (08/23/2019 7:19 PM CDT) WBC 6.1 4.4 - 11.0 x10'3/uL 08/23/2019 7:44 PM CDT [facility] RBC 4.38(L) 4.50 - 5.10 x10'6/uL 08/23/2019 7:44 PM CDT [facility] HGB 12.7 12.3 - 15.3 G/DL 08/23/2019 7:44 PM CDT [facility] HCT 38.9 35.9 - 44.6 % 08/23/2019 7:44 PM [facility] MCV 88.8 80.0 - 96.0 FL 08/23/2019 7:44 PM T [facility] MCH 29.0 25.3 - 30.9 PG 08/23/2019 7:44 PM [facility] MCHC 32.6 31.0 - 34.1 G/DL 08/23/2019 7:44 PM [facility] RDW 14.7 12.4 - 15.1 % 08/23/2019 7:44 PM [facility] PLT 333 151 - 353 x10'3/uL 08/23/2019 7:44 PM [facility] MPV 9.9 9.6 - 12.0 FL 08/23/2019 7:44 PM [facility] RBC MORPHOLOGY NORMAL 08/23/2019 7:44 PM [facility] PLT MORPH. NORMAL 08/23/2019 7:44 PM [facility] WBC MORPHOLOGY NORMAL 08/23/2019 7:44 PM [facility] LYMPHOCYTES % 11.2(L) 15.8 - 45.0 % 08/23/2019 7:44 PM [facility] NEUTROPHILS % 79.8(H) 42.1 - 71.9 % 08/23/2019 7:44 PM [facility] MONOCYTES % 7.2 5.7 - 12.5 % 08/23/2019 7:44 PM [facility] EOSINOPHILS 0.8 0.0 - 5.6 % 08/23/2019 7:44 PM [facility] BASOPHILS 0.5 0.0 - 1.3 % 08/23/2019 7:44 PM [facility] ABS. NEUTROPHILS TOTAL 4.85 1.40 - 6.00 x10'3/uL 08/23/2019 7:44 PM CDT [facility] IMMATURE GRANS % 0.5 0.0 - 0.5 % 08/23/2019 7:44 PM CDT [facility] ABS. LYMPHOCYTES 0.68(L) 0.80 - 4.70 x10'3/uL 08/23/2019 7:44 PM CDT [facility] 08/23/2019 7:19 PM CDT Martha Ruiz NP LABORATORY Final Result [facility] [address] [place] [address], * (ABNORMAL) CULTURE URINE (08/23/2019 7:19 PM CDT) SPEC DESCRIPTION URINE VOIDED 08/23/2019 6:48 PM CDT [facility] SPECIAL REQUESTS NO SPECIAL REQUEST 08/23/2019 6:48 PM CDT [facility] CULTURE RESULT 10,000-49,0 00 COL/ML ENTEROBACTE R CLOACAE COMPLEX (A) 08/26/2019 6:40 AM CDT [facility] URINE SPECIMEN FROM URETHRA / Unknown [...] complex CEFEPIME FELIX (VITEK) Sensitive Martha Ruiz CIRCULAR TANK COOPER MICROBIOLOGY - GENERAL ORDERA BLES Final Result [facility] [address] [place] [address], [place] [phone] [facility] [address] [place] [address], documented in this encounter Visit Diagnoses Diagnosis CLAUDIO (acute kidney injury) ([facility]) Acute kidney failure, unspecified UTI symptoms Gastroesophageal reflux disease with esophagitis documented in this encounter Care Teams Barrel Lathe Operator Outside Relationship Specialty Start Date End Date Noemi Barnard MD [address] [address] PCP - General INTERNAL MEDICINE 08/23/18 03/03/23 Joni Mckeon MD [facility]. [address] [address] Christopher Digital Asset Specialist CARDIOVASCULAR DISEASE 07/04/18 documented as of this encounter
--- OUTSIDE RECORDS SUMMARY | 2024-04-05 00:20 | XMS_ITS | Encounter Summary ---
Author Organization [facility] Address [address] [place] [address]. [place], [place] [id number] [place] [address] Care Team Providers Care Housekeeping Room Attendant Name Role Phone Joni Mckeon MD Unavailable [phone] Noemi Barnard MD Primary Care Provider [phone] Encounter Details Date Type Department Care Team (Late st Contact Info) Description 07/30/2019 8:30 PM CDT Home Care Visit [address] [place] [address] Pushpa Villela, RN [phone] (Work) SN HOME PRN VISIT Social History Tobacco Use Types Packs/Day [...] Reading Time Taken Comments Blood Pressure 124/72 07/30/2019 8:40 PM CDT Pulse 72 07/30/2019 8:40 PM CDT Temperature 37.2 ??C (98.9 ??F) 07/30/2019 8:40 PM CD T Respiratory Rate 20 07/30/2019 8:40 PM CDT Oxygen Saturation 98% 07/30/2019 8:40 PM CDT Inhaled Oxygen Concentration - - Weight - - Height - - Body Mass Index - - documented in this encounter Functional Status * Question Answer Date of Assessment Author Status Do you have serious difficulty walking or climbing stairs? Yes 08/01/2019 7:29 PM CDT Denise Mcmahon RN A ctive * Question Answer Date of Assessment Author Status Do you have difficulty dressing or bathing? Yes 08/01/2019 7:29 PM CDT Denise Mcmahon RN Active Because of a physical, mental, or emotional condition, do you have difficulty doing errands alone such as visiting a doctor's office or shopping? Yes 08/01/2019 7:29 PM CDT Denise Mcmahon RN Ac tive * RETIRED Are you deaf or do you have serious difficulty hearing Answer Date of Assessment Author Status Yes 07/06/2019 4:29 PM CDT Activ e * RETIRED Are you blind or do you have serious difficulty seeing, even when wearing glasses? Answer Date of Assessment Author Status No 07/18/2019 11:38 AM CDT Acti ve * Do you have serious difficulty walking or climbing stairs? Answer Date of Assessment Author Status Yes 07/18/2019 11:38 AM CDT Leticia Grove R N Active * Do you have difficulty dressing or bathing? Answer Date of Assessment Author Status Yes 07/18/2019 11:38 AM CDT Leticia Grove R N Active * Because of a physical, mental, or emotional condition, do you have difficulty doing errands alone such as visiting a doctor's office or shopping? Answer Date of Assessment Author Status Yes 07/18/2019 11:38 AM CDT Leticia Groev R N Active documented as of this encounter Mental Status * Question Answer Entry Date Author Status Because of a physical, mental, or emotional condition, do you have serious difficulty concentrating, remembering, or making decisions? No 08/01/2019 7:29 PM DAVIDT Denise Mcmahon RN Active * Because of a physical, mental, or emotional condition, do you have serious difficulty concentrating, remembering, or making decisions? Answer Entry Date Author Status Yes 07/18/2019 11:38 AM CDT Lteicia Grove R N Active documented in this encounter Plan of Treatment Not on file documented as of this encounter Goals Goal Patient Goal Type Associated Problems Recent Progress Patient-Stated? Author Improve Home Support System General No Laura Cheatham, RN Return home with [facility] home health General No Malgorzata Brown MSW HOME WITH DAUGHTER General No Larua Cheatham, RN documented as of this encounter Visit Diagnoses Not on filedocumented in this encounter Home Health Visit - Care Plan Visit Details Visit Type -SN - Home PRN Vi sit Discipline -Intermediate Problems Problem Description Start Date Status Goals Interve ntions Discharge Planning Disciplines: Intermediate Discharge Planning 07/19/2019 Active 1 goal linked to scheduled/docume nted intervention 1 goal intervention scheduled/documen ke in this visit Care Coordination Disciplines: Intermediate Management and coordination of patient care 07/19/2019 Active 1 goal linked to scheduled/docume nted intervention 2 goal interventions scheduled/documen ke in this visit A Plan for Next Visit Disciplines: Intermediate Plan for next visit 07/19/2019 Active 1 goal linked to scheduled/docume nted intervention 1 goal intervention scheduled/documen ke in this visit Home Safety Disciplines: Intermediate Management and evaluation of patient's home environment 07/19/2019 Active 1 goal linked to scheduled/docume nted intervention 4 goal interventions scheduled/documen ke in this visit Medications Disciplines: Intermediate Management of home medications 07/19/2019 Active 1 goal linked to scheduled/docume nted intervention 3 goal interventions scheduled/documen ke in this visit Management and Evaluation of the Care Plan Disciplines: Intermediate SN for management and evaluation of skilled services 07/19/2019 Active 1 goal linked to scheduled/docume nted intervention 1 goal intervention scheduled/documen ke in this visit Skilled Observation and Assessment Disciplines: Intermediate Skilled O & A as specified by the physician 07/19/2019 Active - 2 problem interventions scheduled/documen ke in this visit Goals Goal Associated Problem Outcome Goal Met? Visit Notes Progress towards discharge Description: Documentation of ongoing progress towards goals through 08/05/2019 Discharge Planning No Coordination of Care Achieved Description: Coordination of care will be achieved by / through 08/05/2019 Care Coordination No Provide Continuity of Care Description: To provide continuity of care A Plan for Next Visit No Remain Safe in Home Description: Patient will remain safe in their home as evidenced by no falls or injuries, through 08/05/2019 Home Safety No Understanding of Medication Regimen Description: patient will verbalize understanding of medications and proper administration of medication regimen by 08/05/2019 Medications No SN Management and Evaluation of the Care Plan Description: Skilled nurse will continue to manage and evaluate care plan through 08/05/2019 or until patient moves in with her daughter. Management and Evaluation of the Care Plan No Interventions Intervention Associated Problem/Goal Status Variance [...] healthy diet. Problem:Skilled Observation and Assessment Scheduled documented in this encounter Care Teams Housekeeping Room Attendant Relationship Specialty Start Date End Date No[facility] [address] [address] PCP - General INTERNAL MEDICINE 08/23/18 03/03/23 Joni Mckeon MD [facility]. [address] [address] Christopher Vp Public Relations CARDIOVASCULAR DISEASE 07/04/18 documented as of this encounter
--- OUTSIDE RECORDS SUMMARY | 2024-04-05 00:20 | XMS_ITS | Encounter Summary ---
Author Organization [facility] Address [address] [place] [address]. [place], [place] [id number] [place] [address] Care Team Providers Care Strategic Advisor Name Role Phone Joni Mckeon MD Unavailable [phone] Noemi Barnard MD Primary Care Provider [phone] Encounter Details Date Type Department Care Team (Late st Contact Info) Description 07/19/2019 Plan of Care Documentation [address] [place] [address] Social History Tobacco Use Types Packs/Day Years [...] have Coronavirus / COVID-19? No / Unsure 07/05/2019 7:33 PM CDT documented as of this encounter [...] Status Yes 07/18/2019 11:38 AM CDT Leticia Grove, R N Active * Do you have difficulty dressing or bathing? Answer Date of Assessment Author Status Yes 07/18/2019 11:38 AM CDT Leticia Grove, R N Active * Because of a physical, mental, or emotional condition, do you have difficulty doing errands alone such as visiting a doctor's office or shopping? Answer Date of Assessment Author Status Yes 07/18/2019 11:38 AM CDT Leticia Grove, R N Active documented as of this encounter Mental Status * Because of a physical, mental, or emotional condition, do you have serious difficulty concentrating, remembering, or making decisions? Answer Entry Date Author Status Yes 07/18/2019 11:38 AM CDT Leticia Grove, R N Active documented in this encounter Plan of Treatment Not on file documented as of this encounter Goals Goal Patient Goal Type Associated Problems Recent Progress Patient-Stated? Author Improve Home Support System General No Laura Cheatham RN documented as of this encounter Visit Diagnoses Not on filedocumented in this encounter Care Teams Strategic Advisor Relationship Specialty Start Date End Date Noemi Barnard MD [facility]. [facility] [address] [place] [address] PCP - General INTERNAL MEDICINE 08/23/18 03/03/23 Jon[facility] MD [facility] [address] [place] [address] Christopher Golf Ball Trimmer CARDIOVASCULAR DISEASE 07/04/18 documented as of this encounter
--- OUTSIDE RECORDS SUMMARY | 2024-04-05 00:20 | XMS_ITS | Encounter Summary ---
Author Organization [facility] Address [address] [place] [address]. [place], [place] [address] [place] [address] Care Team Providers Care Clinical Nurse Specialist Name Role Phone Joni Mckeon MD Unavailable [phone] Noemi Barnard MD Primary Care Provider [phone] Encounter Details Date Type Department Care Team (Latest Contact Info) Description 2019 Travel Social History Tobacco Use Types Packs/Day [...] have Coronavirus / COVID-19? No / Unsure 07/30/2019 10:06 PM CDT documented as of this encounter Functional Status * RETIRED Are you deaf or do you have serious difficulty hearing Answer Date of Assessment Author Status No 2019 1:20 AM CDT Activ e * RETIRED Are you [...] AM CDT Leticia Grove R N Active documented as of this encounter Mental Status * Because of a physical, mental, or emotional condition, do you have serious difficulty concentrating, remembering, or making decisions? Answer Entry Date Author Status Yes 07/18/2019 11:38 AM CDT Leticia Grove R N Active documented in this encounter Plan of Treatment Not on file documented as of this encounter Goals Goal Patient Goal Type Associated Problems Recent Progress Patient-Stated? Author Improve Home Support System General No Laura Cheatham RN Return home with [facility] home health General No Malgorzata Brown MSW documented as of this encounter Visit Diagnoses Not on filedocumented in this encounter Care Teams Clinical Nurse Specialist Relationship Specialty Start Date End Date Noemi Barnard MD Three [facility]. [facility] [address] [place] [address] PCP - General INTERNAL MEDICINE 08/23/18 03/03/23 Joni Mckeon MD Three [facility]. [facility] [address] [place] [address] Christopher Master Naval Parachutist CARDIOVASCULAR DISEASE 07/04/18 documented as of this encounter
--- OUTSIDE RECORDS SUMMARY | 2024-04-05 00:20 | XMS_ITS | Encounter Summary ---
Author Organization [facility] Address [address] [place] [address]. [place], [place] [id number] [place] [address] Care Team Providers Care Portfolio Strategist Name Role Phone Joni Mckeon MD Unavailable [phone] Noemi Barnard MD Primary Care Provider [phone] Encounter Details Date Type Department Care Team (Latest Contact Info) Description 07/20/2019 9:00 AM CDT Home Care Visit [address] [place] [address] Theodore Guo, PT [address] [place] [address] PT INITIAL EVALUATION Social History Tobacco Use [...] Sign Reading Time Taken Comments Blood Pressure 122/76 07/20/2019 9:29 AM CDT Pulse 72 07/20/2019 9:29 AM CDT Temperature 36.7 ??C (98.1 ??F) 07/20/2019 9:29 AM CD T Respiratory Rate 18 07/20/2019 9:29 AM CDT Oxygen Saturation 98% 07/20/2019 9:29 AM CDT Inhaled Oxygen Concentration - - [...] Details Visit Type -PT - Initial Lisa luation Discipline -Physical Therapy Problems Problem Description Start [...] visit Homebound Status Disciplines: Physical Therapy Patient meets requirements of homebound status as evidenced by decreased ability to exit home independently 07/20/2019 Resolved on 07/20/2019 1 goal linked to scheduled/docume nted intervention A Plan for Next Visit Disciplines: Physical [...] goal interventions scheduled/documen ke in this visit Goals Goal Associated Problem Outcome Goal Met? Visit Notes Progress towards discharge Description: Documentation of ongoing progress towards goals through DC Discharge Planning No Coordination of Care/Interpretive Services Description: Coordination of care will be achieved as needed through telecommunications during entire episode of care. Care Coordination No PT - Homebound Status Description: Patient meets requirements of homebound status as evidenced by unsteady gait and fall risk Homebound Status Completed Yes Provide Continuity of Care Description: To provide continuity of care A Plan for Next Visit No Therapies - Understanding of Medications - Physical Therapy Description: patient will verbalize understanding of medication regimen by DC. Therapies Medications No Remain Safe in Home Description: Patient will remain safe in their home as evidenced by no falls or injuries, through DC. Patient will report a minimum of three fall prevention techniques without cues in order to demonstrate decreased fall risk by DC. Home Safety No Physical Therapy - Vital Signs Description: Vital signs to be monitored as needed through DC. Therapies Vitals No PT Gait Training Description: Patient will ambulate a distance of 500 feet or greater with use of rollator walker without fatigue or fall risk by 09/15 PT Gait Training No PT Therapeutic Exercise Description: Patient to demonstrate independence with HEP to increase LE strength to 5/5 in order to improve patient's ind with mobility and activity tolerance. Patient will demonstrate a decrease in fall risk as evidenced by an improved Tinetti score to greater than 20/28 PT Therapeutic Exercise No Interventions Intervention Associated Problem/Goal Status Variance Visit Notes Plan Towards Discharge Description: Document patient progress towards discharge. Problem:Discharge Planning Goal:Progress towards discharge Completed DC to self care- patient agreeable to POC Care Coordination Description: Coordinate care with necessary care team members as needed regarding PT POC or medical conditions or concerns. Problem:Care Coordination Goal:Coordination of Care/Interpretive Services Completed Case communication to MD, RN and RIPSAWYER regarding PT POC Plan for Next Visit Description: Next visit plan summation Problem:A Plan for Next Visit Goal:Provide Continuity of Care Completed Review HEP, gait and balance training and instruct walking program Review Medications Description: Skilled PT will record any new, changed or discharged medications as well as will educate the patient on side effects and interactions,. PT to contact MD with any sever/major interactions identified with new or changed medications. Problem:Therapies Medications Goal:Therapies - Understanding of Medications - Physical Therapy Completed No new or changed medications. Assited patient in calling in needed refills of medications to pharmace Instruct Home Safety Description: Instruct patient on strategies/modificati ons to home environment. Problem:Home Safety Goal:Remain Safe in Home Completed Instructed patient on home safety and fall prevention techniques per SOC packet including emergency care plan and contact numbers for agency and primary MD with patient exhibiting full understanding. Therapies - Vitals Description: PT, case sealer or physician to be contacted if pulse ox consistently below 88 percent, temp greater than 100.5, Systolic BP greater than 180 or less than 90, diastolic BP greater than 90 or less than 50, Heart rate consistently greater than 110 or less than 50, and resting respiratory rate less than 12 or greater than 24. Problem:Therapies Vitals Goal:Physical Therapy - Vital Signs Completed Within parameters PT gait training Description: Evaluate and instruct patient in gait training using 4-wheeled walker. Problem:PT Gait Training Goal:PT Gait Training Completed Amb in hallway with rollator with slow, short strided gait pattern and fatigue noted after 150 feet. Turns are slow and unsteady. Amb in apartment without rollator with patient leaning and reaching for next available support surface. Strides are increasingly shortened and unsteady. Therapies Balance Description: Assess balance and provide NMRE activities in standing to increase static and dynamic balance in order to improve gait pattern and decrease fall risk. Problem:PT Therapeutic Exercise Goal:PT Therapeutic Exercise Completed Tinetti which indicates high fall risk Therapies - Therapeutic Exercise Description: HEP for BLE strength and activity tolerance improvements Problem:PT Therapeutic Exercise Goal:PT Therapeutic Exercise Completed Instructed on seated HEP for daily performance documented in this encounter Care Teams Portfolio Strategist Relationship Specialty Start Date End Date Noemi Barnard MD [address] [address] PCP - General INTERNAL MEDICINE 08/23/18 03/03/23 Joni Mckeon MD [address] [address] Christopher Ese Teacher CARDIOVASCULAR DISEASE 07/04/18 documented as of this encounter
--- OUTSIDE RECORDS SUMMARY | 2024-04-05 00:20 | XMS_ITS | Encounter Summary ---
Author Organization [facility] Address [address] [place] [address] [place] [address] Care Team Providers Care Wine Steward Name Role Phone Joni Mckeon MD Unavailable [phone] Noemi Barnard MD Primary Care Provider [phone] Reason for Visit * Reason Onset Date Comments Follow Up Call 07/19/2019 pt states is doi ng well. denies any s/s of infection. Denies any questions or concerns about discharge medications or discharge instructions. Encounter Details Date Type Department Care Team (Late st Contact Info) Description 07/19/2019 Telephone [facility] Med/Surg [address] [place] [address] Denise Mcmahon, RN Follow Up Call (pt states is doing well. denies any s/s of infection. Denies any questions or concerns about discharge medications or discharge instructions. ) Social History Tobacco Use Types Packs/Day [...] [facility] General No Laura Chetaham RN documented as of this encounter Visit Diagnoses Not on filedocumented in this encounter Care Teams Wine Steward Relationship Specialty Start Date End Date Noemi Barnard MD [facility] [address] [place] [address] PCP - General INTERNAL MEDICINE 08/23/18 03/03/[address] [facility] [address] [place] [address] [place] Chief Engineer CARDIOVASCULAR DISEASE 07/04/18 documented as of this encounter
--- OUTSIDE RECORDS SUMMARY | 2024-04-05 00:20 | XMS_ITS | Encounter Summary ---
Author Organization [facility] Address [address] [place] [address]. [place], [place] [id number] [place] [id number] Care Team Providers Care Banking Assistant Name Role Phone Josep Mckeon MD Unavailable [phone] Elaina Jade MD Primary Care Provider [phone] Reason for Referral * (Routine) - Canceled Specialty Diagnoses / Procedures Referred By Contac t Referred To Contact Procedures PT Eval and [place] [address] Phone: tel: [phone] fax: Referral ID Status Reason Start Date Expiration Date V isits Requested Visits Authorized [id number] Canceled 2019 08/29/2020 1 1 * (Routine) - Canceled Specialty Diagnoses / Procedures Referred By Eugenie t Referred To Contact Procedures OT eval and treat Leia Jin MD [address] [place] [address] Phone: tel: [phone] fax: Referral ID Status Reason Start Date Expiration Date V isits Requested Visits Authorized [id number] Canceled 2019 08/28/2020 1 1 * (Routine) - Canceled Specialty Diagnoses / Procedures Referred By Contac t Referred To Contact Procedures PT eval and treat Leia Jin MD [address] [place] [address] Phone: tel: [phone] fax: Referral ID Status Reason Start Date Expiration Date V isits Requested Visits Authorized [id number] Canceled 2019 08/28/2020 1 1 * Imaging (Emergency) - Closed Specialty Diagnoses / Procedures Referred By Contac t Referred To Contact RADIOLOGY Procedures CT PEL WO CON Erich Connor MD Referral ID Status Reason Start Date Expiration Date Visits Re quested Visits Authorized [id number] Closed 07/30/2019 08/28/2020 1 1 * Imaging (Emergency) - Closed Specialty Diagnoses / Procedures Referred By Contac t Referred To Contact RADIOLOGY Procedures CT CERV SPINE WO CON Erich Connor MD Referral ID Status Reason Start Date Expiration Date Visits Re quested Visits Authorized [id number] Closed 07/30/2019 08/28/2020 1 1 * Imaging (Emergency) - Closed Specialty Diagnoses / Procedures Referred By Contac t Referred To Contact RADIOLOGY Procedures CT HEAD WO CON Erich Connor MD Referral ID Status Reason Start Date Expiration Date Visits Re quested Visits Authorized [id number] Closed 07/30/2019 08/28/2020 1 1 Reason for Visit * Reason Comments [facility] WITH [facility]/O FALL. PT STATED WAS STANDING IN THE KITCHEN AND JUST FELL OVER. PT STATED HAVE BEEN FEELING LIGHT HEADED FOR PAST WEEK. PT HAD BEEN DISCHARGED FROM HOSPITAL 5 DAYS AGO AND HAD BEEN TREATED FOR A UTI * Auth/Cert Specialty Diagnoses / Procedures Referred By Contac t Referred To Contact Diagnoses Contusion of hip Dehydration Hypokalemia Dizziness Hyponatremia Closed head injury Acute kidney injury (CMS/HCC) Scalp hematoma, initial encounter Fall at home, initial encounter CLAUDIO (acute kidney injury) (CMS/[facility]) Referral ID Status Reason Start Date Expiration Date Visits Re quested Visits Authorized [id number] 1 1 Encounter Details Date Type Department Care Team (Late st Contact Info) Description 07/30/2019 9:54 PM CDT - 08/01/2019 5:28 PM CDT Hospital Encounter [facility] Med/Surg [address] [place], [place] [id number] Erich Connor MD Mahtani, Andrew, MD [facility]. [place], [place] [id number] [phone] (Work) Leia Jin MD [address] [place], [place] [address] [phone] (Work) Fall (PT TO ER PER [facility] WITH C/O FALL. PT STATED WAS STANDING IN THE KITCHEN AND JUST FELL OVER. PT STATED HAVE BEEN FEELING LIGHT HEADED FOR PAST WEEK. PT HAD BEEN DISCHARGED FROM HOSPITAL 5 DAYS AGO AND HAD BEEN TREATED FOR A UTI) Discharge Disposition: Swing Bed Social History Tobacco Use Types Packs/Day Years [...] Sign Reading Time Taken Comments Blood Pressure 125/63 08/01/2019 4:18 PM CDT Pulse 54 08/01/2019 4:22 PM CDT Temperature 36.2 ??C (97.2 ??F) 08/01/2019 4:13 PM CD T Respiratory Rate 20 08/01/2019 4:22 PM CDT Oxygen Saturation 97% 08/01/2019 4:22 PM CDT Inhaled Oxygen Concentration - - Weight 59.1 kg (130 lb 4.7 oz) 08/01/2019 4:00 A M CDT Height 161.3 cm (5' 3.5 ) 07/30/2019 10:00 PM CD T Body Mass Index 22.72 07/30/2019 10:00 PM CDT documented in this encounter Functional [...] documented in this encounter Discharge Summaries * Emiliano Hubbard MD - 08/01/2019 9:52 AM CDT Hospitalist Discharge Summary Patient ID: Aviva Ch. [id number]. [id number] Admit date: 07/30/2019 9:54 PM Discharge date: 08/01/19 Admitting Physician: Leia Davenport MD Attending Physician: Emiliano Hubbard MD Primary Care Physician: ELAINA JADE MD Discharge Physician: EMILIANO HUBBARD MD Primary Diagnoses: Patient Active Problem List Diagnosis ??? Claudication ([facility]) ??? Colitis ??? Diabetes mellitus ([facility]) ??? Dyshidrotic eczema ??? GERD (gastroesophageal reflux disease) ??? Hyperlipidemia ??? Hypertension ??? Hypothyroidism ??? Insomnia ??? Lumbago ??? Diarrhea, unspecified type ??? Vaginal burning ??? Otitis externa of right ear, unspecified chronicity, unspecified type ??? Diverticulitis ??? Suprapubic pain ??? Dizziness ??? Atypical chest pain ??? SOB (shortness of breath) ??? Physical deconditioning ??? Environmental and seasonal allergies ??? Bacteremia ??? E-coli UTI ??? Type 2 diabetes mellitus with stage 3 chronic kidney disease, without long- term current use of insulin ([facility]) ??? CLAUDIO (acute kidney injury) ([facility]) Discharged Condition: Stable Code Status: Full Code Indication for Admission: Chief Complaint Patient presents with ??? Fall PT TO ER PER [facility] WITH C/O FALL. PT STATED WAS STANDING IN THE KITCHEN AND JUST FELL OVER. PT STATED HAVE BEEN FEELING LIGHT HEADED FOR PAST WEEK. PT HAD BEEN DISCHARGED FROM HOSPITAL 5 DAYS AGO AND HAD BEEN TREATED FOR A UTI Reason for hospitalization: Patient Active Problem List Diagnosis ??? Claudication ([facility]/HCC) ??? Colitis ??? Diabetes mellitus ([facility]) ??? Dyshidrotic eczema ??? GERD (gastroesophageal reflux disease) ??? Hyperlipidemia ??? Hypertension ??? Hypothyroidism ??? Insomnia ??? Lumbago ??? Diarrhea, unspecified type ??? Vaginal burning ??? Otitis externa of right ear, unspecified chronicity, unspecified type ??? Diverticulitis ??? Suprapubic pain ??? Dizziness ??? Atypical chest pain ??? SOB (shortness of breath) ??? Physical deconditioning ??? Environmental and seasonal allergies ??? Bacteremia ??? E-coli UTI ??? Type 2 diabetes mellitus with stage 3 chronic kidney disease, without long- term current use of insulin ([facility]) ??? CLAUDIO (acute kidney injury) ([facility]) Readmission/Mortality Score at discharge: Low 0-28, Medium 29-58, High >59 LACE+ Score Readmission Score: 78 Male Patient: Urgent Admission: 15 Discharge Institution: Length of Stay: 3 Alternative Level of Care Status: 0 ED Visits in Previous 6 Months: 3 Elective Admission in Previous Year: 6 Comorbidity Score (by age & number of urgent admissions): 51 Hospital Course: 84-year-old female presented with presyncope and fall with hyponatremia and hypokalemia. Likely secondary to hydrochlorothiazide that will was discontinued. Continue with Lasix and potassium, benazepril, and Norvasc. A/P Presyncope with fall and electrolyte abnormalities of hypokalemia and hyponatremia Suspect iatrogenic secondary to Lasix and possibly hydrochlorothiazide/Lasix/amlodipine, will hold for now Gentle hydration Troponins negative stable on telemetry Hold antihypertensives for now as likely cause for electrolyte abnormalities 07/31 resolved with holding of home medications primarily Lasix and hydrochlorothiazide. Will resumeNorvasc, benazepril, Lasix, potassium and hold hydrochlorothiazide. ?? Diabetes ADA diet if pt allows ISS Avoid Metformin while inpatient ?? HTN Hold Lasix, amlodipine, hydrochlorothiazide, ANGEL inhibitor, monitor trend ?? Hyperlipidemia continue current regimen ?? Dehydration mild, avoid nephrotoxic agents ?? Hypothyroidism Cont current regimen ?? Depression appears stable continue current regimen ?? History of cancer noted adds complexity patient care ?? Insomnia on trazodone may be contributing consider holding if patient complies ?? DVT Prophylaxis Heparin Subcutaneous, SCD. ?? Advanced care full code ?? Projected length of stay to home in the next 2 days pending patient progress ?Consults: None Significant Diagnostic Studies: Recent Labs Lab 07/30/19 2216 07/31/19 0629 08/01/19 0620 WBC 8.1 5.0 3.6* RBC 4.48* 4.21* 3.90* HGB 12.8 12.1* 11.2* HCT 36.8 35.0* 33.2* MCV 82.1 83.1 85.1 MCH 28.6 28.7 28.7 MCHC 34.8* 34.6* 33.7 PLT 194 159 165 RDW 13.0 13.2 13.6 MPV 10.5 10.9 10.2 PERNEU 84.2* 75.2* 69.5 PERLYM 7.0* 11.5* 17.2 PERMON 8.0 10.9 10.0 LYMC 0.57* 0.57* 0.62* Recent Labs Lab 07/30/19221507/31/19 0629 08/01/19 0620 NA 124* 127* 136 K 2.8* 4.9 3.8 CL 86* 93* 102 CO2 29.2 25.5 27.4 AGAP 8.8 8.5 6.6 BUN 31* 23* 14 CR 1.43* 0.97 0.80 BUNCREATININ 21.7 23.7 17.5 GFRNON 34* 54* 68* GFR 39* 62* 78* GLU 154* 108* 88 CA 10.2* 9.4 8.6 TP 6.9 -- -- ALB 3.8 -- -- TBIL 0.6 -- -- ALKP 87 -- -- AST 42* -- -- ALT 68* -- -- Recent Labs Lab 07/31/19628 TSH 4.638* Recent Labs Lab 07/30/192215 INR 1.1 Recent Labs Lab 07/30/19221507/31/19 0041 07/31/19 0629 TROP <0.017 <0.017 <0.017 Recent Labs Lab 07/30/192216 LACTICACID 0.8 No results for input(s): PH, PCO2, PO2, [id number], BICARBWB, BASEDEFICIT, BASEEXCESS in the [id number] hours. Results for orders placed or performed during the hospital encounter of 07/30/19 URINALYSIS, AUTO, COMPLETE Result Value Ref Range COLOR (U) YELLOW TRANSPARENCY HAZY Specific [place] (U) 1.015 1.000 - 1.030 U PH 5.5 5.0 - 9.0 LEUKOCYTE ESTERASE 1+ (A) NEGATIVE NITRITES NEGATIVE NEGATIVE PROTEIN(U) NEGATIVE NEGATIVE URINE GLUCOSE NEGATIVE NEGATIVE U KET[place]ES TRACE (A) NEGATIVE BILIRUBIN (U) NEGATIVE NEGATIVE BLOOD NEGATIVE NEGATIVE WBC/HPF 5-10 0 - 5 /HPF RBC/HPF 0-5 0 - 5 /HPF EPI/HPF FEW /HPF URINE, OTHER CASTS HYALINE /LPF BACTERIA (URINE) FEW /HPF Radiology Reports : No results found. Discharge Exam: Filed Vitals: 07/31/19 2323 08/01/19 0307 08/01/19 0400 08/01/19 0715 BP: 112/61 137/55 137/59 Pulse: 72 54 54 Resp: 18 16 16 Temp: 97.5 ??F (36.4 ??C) 97.7 ??F (36.5 ??C) 97.5 ??F (36.4 ??C) TempSrc: Tympanic Tympanic Tympanic SpO2: 97% 96% 91% Weight: 59.1 kg (130 lb 4.7 oz) Height: General: Laying in bed, NAD. Eyes: EOMI, PERRLA ENT: MMM Lungs: Dec BS in the bases, No wheezes, No crackles Cardiovascular: Regular rate rhythm, S1 and S2 normal, No murmurs, Abdomen: S, NT, no rebound/guarding. BS present. Extremities: Tr edema. Neurological: Tired, CN II-XII grossly intact Psych: Flat affect Discharge Medications: Medication List ASK your doctor about these medications amLODIPine 5 MG tablet Commonly known as: NORVASC TAKE 1 TABLET BY MOUTH DAILY aspirin EC 81 MG tablet Commonly known as: ECOTRIN benazepril 20 MG tablet Commonly known as: LOTENSIN TAKE 1 TABLET BY MOUTH EVERY DAY donepezil 10 MG Tabs Commonly known as: ARICEPT furosemide 20 MG tablet Commonly known as: LASIX Take 1 tablet (20 mg total) by mouth daily. hydroCHLOROthiazide 25 MG tablet Commonly known as: HYDRODIURIL Take 1 tablet (25 mg total) by mouth every morning. levothyroxine 50 MCG tablet Commonly known as: SYNTHROID potassium chloride CR 10 MEQ tablet Commonly known as: KLOR-CON M TAKE 1 TABLET(10 MEQ) BY MOUTH DAILY WITH BREAKFAST pravastatin 40 MG tablet Commonly known as: PRAVACHOL TAKE 1 TABLET BY MOUTH AT BEDTIME sertraline 100 MG tablet Commonly known as: ZOLOFT traZODone 50 MG tablet Commonly known as: DESYREL Vitamin D 50 MCG (1999 UT) Caps Medications Discontinued during this hospitalization: Medications Discontinued During This Encounter Medication Reason ??? 0.9 % NaCl with KCl 20 mEq infusion Error ??? sodium chloride 0.9% infusion Error ??? potassium chloride CR (KLOR-CON M) tablet 40 mEq Ordering Physician ??? sodium chloride 0.9% infusion ??? sodium chloride 0.9% infusion Patient Instructions: Activity: as tolerated. Diet: Diet general Appropriate Therapy Ordered: No therapy plan of the specified type found. Follow-up appointments: No follow-ups on file. Followup Lab Orders: Time Spent on Discharge greater than 30 minutes. EMILIANO HUBBARD MD 08/01/2019 9:52 AM documented in this encounter Medications at Time [...] by mouth every morning. Indications: Depression 08/17/2019 AMLODIPINE 5 MG tablet TAKE 1 TABLET BY MOUTH DAILY 90 tablet 1 06/20/2019 08/16/19 20 BENAZEPRIL 20 MG tablet [The details of the medication are not available because there are pending changes by a home health clinician.] 90 tablet 1 06/20/2019 08/23/19 20 benazepril 20 MG tablet Take 1 tablet by mouth daily. 06/20/2019 01/23/20 20 furosemide 20 MG tablet [The details of the medication are not available because there are pending changes by a home health clinician.] 30 tablet 07/19/2019 08/23/19 20 levothyroxine 50 MCG tabletIndications :Hypothyroidism Indications: Underactive Thyroid Take 1 tablet (50mcg total) by mouth in the morning on Wednesday and Wednesday. 03/08/2019 11/08/19 20 nystatin cream [The details of the medication are not available because there are pending changes by a home health clinician.] 1 g 08/16/2019 09/20/19 20 POTASSIUM CHLORIDE CR 10 MEQ tabletIndications [...] 10/17/19 20 documented as of this encounter Progress Notes * Marisa Wheatley PTA - 08/01/2019 2:27 PM CDT Pt is progressing towards her PT goals. * Marisa Wheatley PTA - 08/01/2019 2:25 PM CDT 08/01/19 1348 Therapy Visit Subjective Pt states that she is tired, but wants to get her PT done first. Verified Two Patient Identifiers Yes Patient consents to therapy Yes Acute Inpatient PT Time Calculation PT Start Time 1348 PT Stop Time 1411 PT Time Calculation (min) 23 min Precautions Precautions Yes/No Yes Instructed on Precautions Yes;Needs reinforcement and education Pain Pain Yes Pain Score 3 Location R hip Interventions Relaxation;Re-positioning Activity Tolerance Activity Tolerance Comments Pt fatigued at end of session. Cognition Overall Cognitive Status WFL Other (Comment) Very [place] Bed Mobility Supine to Sit Min assist to left (using bed rail) Sit to Supine Min assist to right TRANSFERS Sit to Stand Min assist Other (Comment) Stand to sit with CGA, cues for hand placement. Gait Gait Assistance Contact guard assist;SBA/supervision Assistive Device 2 Wheeled walker Ambulation Distance (Feet) 85' Pattern Shuffle steps Weight Bearing Status Total Other (Comment) Slow yasmin. Exercises Ankle Pumps x 10 Quad Sets x 10 Short Arc Quad x 10 Glut Sets x 10 Supine LE Exercise Isometric hip add with blanket roll x 10 Patient/Family Training Bed Mobility X Transfer Training X Gait Training X Precautions X Exercise Program X PT Assessment PT Assessment Pt fatigued at end of session. Pt able to increase her amb distance. Plan Progress Progressing toward goals If this is the last treatment note,it will serve as the discharge summary Yes End of Session Safety End of Session Safety Bed alarm set/activated;Call light within reach End of Session Comment Pt in bed at end of session. * AMANDA Blum - 08/01/2019 2:05 PM CDT Interdisciplinary Team conference held. In attendance; case management, UR, nursing, PT, OT, cardiopulmonary, TIMBER REPAIRER, Hospitalist, Pastoral Care, and Pharmacy. Meeting held at 11:00. Patient to admit to [facility] program today. * Amber Ace RRT - 08/01/2019 12:27 PM CDT RT spoke to patient. Patient does not wear a home cpap/ bipap. RN is aware. * Norma Guidry OT - 08/01/2019 10:44 AM CDT Limited by impaired endurance, balance, and safety. High risk for falls. Requires increased assistance w/ ADLs and transfers along w/ mob using ww. * Norma Guidry OT - 08/01/2019 10:43 AM CDT 08/01/19 0748 Therapy Visit OT Received On 08/01/19 Reason for admission DX: CLAUDIO. Fell in kitchen 07/30/19 and brought to ER. Comorbidities Relevant to OT PMH includes at [facility] 06/22-07/18/19 for bactremia, UTI. PMH sig for CA, DM, GERD, HTN, HLD, hypothyroid, insomnia, sepsis, nu, hyst, RTC repair. Verified Two Patient Identifiers Yes Patient consents to therapy Yes Acute Inpatient OT Time Calculation OT Start Time 747 OT Stop Time 831 OT Time Calculation (min) 44 min Precautions General Precautions Bed Alarm;Chair Alarm;Fall Risk;Other(comment) (Telemetry, IV Line) Other Abrasion to R hip/side Subjective Subjective Pt. agreeable to working w/ OT. Wants to get up and use the bathroom and get cleaned up.States I had a fall at home, I just can't believe it, I banged myself up good. Pain Pain Yes Pain Score (not rated) Location R hip/side Activity Tolerance Activity Tolerance Comments Pt. fatigued quickly w/ exertion, especially during standing ADL's. Cognition Overall Cognitive Status WFL Other (Comment) Very [place] ADL Grooming Assistance Minimal;Sitting in chair Grooming Deficit Setup;Supervision/safety;Increased time to complete;Brushing hair Grooming Comment To wash face; min assist for thoroughness w/ combing hair after OT assisted w/ shampoo cap Bathing Assistance Minimal;Alternating sit/stand Bathing Deficit Setup;Steadying;Verbal cueing;Supervision/safety;Increased time to complete;Right lower leg including foot;Left lower leg including foot Bathing Comment Sponge bath completed in bedside chair. SBA w/ washing seated components of UB and LB, up until feet. Required assist to wash bilateral feet d/t decreased distal reach. While standingw/ ww, CGA/min assist for balance/steadying during emerson-care buttocks. Pt. was able to reach aroundto wash buttocks but struggle noted d/t hip pain. UE Dressing Assistance Minimal;Sitting in chair UE Dressing Deficit Setup;Verbal cueing;Supervision/safety;Increased time to complete;Thread RUE UE Dressing Comment to don/doff [facility] gown LE Dressing Assistance Maximal;Alternating sit/stand LE Dressing Deficit Setup;Steadying;Requires assistive device for steadying;Verbal cueing;Supervision/safety;Increased time to complete;Don/doff R sock;Don/doff L sock LE Dressing Comment Total assist to change socks. Max assist to pull hospital brief up over hips while standing w/ ww. Toileting Assistance Minimal;CGA Toileting Deficit Setup;Steadying;Verbal cueing;Supervision/safety;Increased time to complete;Grab bar use Toileting Comment Utilized standard toilet for toileting w/ grab bar. Min assist/CGA for balance/steadying while completing hygiene while standing w/ ww and grab bar. Bed Mobility Supine to Sit Min assist to left (using bed rail) Functional Transfers Sit to Stand Min assist;Contact guard assist;Other (from EOB) Toilet Transfers Mod assist;Grab bars;Additional time (from standard toilet ) Functional Mobility Min assist mob w/ ww to/from bathroom and around room to recliner chair. Other (Comment) CGA w/ stand/sit transfers. Needs vc's for hand placement w/ transfers. Balance Sitting - Static Independent Sitting - Dynamic SBA Standing - Static CGA;Support of one upper extremity;Support of both upper extremities Standing - Dynamic Min Assist;CGA;Support of one upper extremity;Support of both upper extremities Patient/Family Training Self Cares tech's to promote increased indep/safety Transfer Training hand placement, safety OT Assessment OT Assessment Aviva hurd's decreased endurance/activity tolerance, balance, and overall indep/safety w/ ADLs and transfers/mob. Will benefit from continued skilled OT. Recommed pt. transition to swing bed for further rehab as she is not safe to return home alone. She is a very high fall risk. Modified [place] Score Interval Daily Score 0-6 4 Moderately severe disability, unable to walk without assistance and unable to attend toown bodily needs without assistance Plan Progress Progressing toward goals If this is the last treatment note, it will serve as the discharge summary Yes End of Session Safety End of Session Safety Call light within reach;Chair alarm set/activated;Nursing aware of session * Marisa Wheatley, GENI - 08/01/2019 10:38 AM CDT 08/01/19918 Therapy Visit Subjective Pt states she is very tired, but knows she needs to work with PT to get stronger. Verified Two Patient Identifiers Yes Patient consents to therapy Yes Acute Inpatient PT Time Calculation PT Start Time 918 PT Stop Time 941 PT Time Calculation (min) 23 min Precautions Precautions Yes/No Yes General Precautions (IV and telemetry) Instructed on Precautions Yes;Needs reinforcement and education Pain Pain Yes Pain Score (sore at rest, mod with sit to stand) Location R side Interventions Relaxation;Re-positioning Cognition Overall Cognitive Status WFL Other (Comment) Very [place] TRANSFERS Sit to Stand Min assist Other (Comment) Stand to sit with CGA, cues for hand placement. Gait Gait Assistance Contact guard assist (plus assist for IV pole) Assistive Device 2 Wheeled walker Ambulation Distance (Feet) 55' Pattern Shuffle steps Weight Bearing Status Total Other (Comment) Slow yasmin. Exercises Ankle Pumps x 10 Quad Sets x 10 Glut Sets x 10 Other (Comment) Pt too fatigued to perform more ex. PT Assessment PT Assessment Pt seems motivated, but fatigues easily. Plan Progress Progressing toward goals If this is the last treatment note,it will serve as the discharge summary Yes End of Session Safety End of Session Safety Chair alarm set/activated;Call light within reach End of Session Comment Pt reclined in gerichair at end of session. * Ana M Paredes, GENI - 2019 4:07 PM CDT 07/31/19 1500 Therapy Visit PT Received On 07/31/19 Subjective Patient states that she is tired as she had a bad night last night and didn't get any sleep. Verified Two Patient Identifiers Yes Patient consents to therapy Yes Acute Inpatient PT Time Calculation PT Start Time 1457 PT Stop Time 1528 PT Time Calculation (min) 31 min PT Therapy Interruption (min) minus 5 min with pt on commode Precautions Precautions Yes/No Yes General Precautions Bed Alarm;Chair Alarm;Fall Risk Instructed on Precautions Yes;Needs reinforcement and education Other Abrasion to R hip/side Pain Pain Patient does not offer or c/o pain Activity Tolerance Endurance Tolerates 20 - 30 min activity with rests Cognition Overall Cognitive Status WFL Following Commands Follows one step commands with repetition Other (Comment) Very [place] Bed Mobility Supine to Sit Contact guard assist (to R side) Sit to Supine Contact guard assist TRANSFERS Stand Pivot Transfers Min assist;Other (to commode) Sit to Stand Contact guard assist Gait Gait Assistance Min assist;Contact guard assist Assistive Device 2 Wheeled walker Ambulation Distance (Feet) 40' Pattern Shuffle steps Weight Bearing Status Total Other (Comment) fatigued by end of gait Balance Sitting - Static SBA Sitting - Dynamic CGA Standing - Static CGA;Support of both upper extremities Standing - Dynamic Min Assist;Support of both upper extremities Patient/Family Training Bed Mobility x Transfer Training x Gait Training x PT Assessment PT Assessment Patient did well during PM session. Patient does fatigue quickly with ambulation. Less overall assist with transfers in PM. Plan PT Treatments/Interventions Gait Training;Therapeutic Exercises;Therapeutic Activities;Neuromuscular re-education;Patient/family training Progress Progressing toward goals If this is the last treatment note,it will serve as the discharge summary Yes End of Session Safety End of Session Safety Bed alarm set/activated;Call light within reach End of Session Comment Patient resting comfortably in bed following PT session. * AMANDA Blum - 2019 3:25 PM CDT Patient requested outsole caser to contact [facility] to notify them she is back in the hospital. r d manager spoke to Tatum with [facility] and informed her that patient was here. Tatum expressed concern related to patients diabetes. Tatum stated patient son reported concerns with the mealsshe was getting and wanted to ensure they were diabetic friendly. Tatum reports patient is listed asdiabetic and received the diabetic meals. Patient reports to her son that she received carbs in hermeals and does not eat those as she fears that will mess with her diabetes. Tatum suggested having someone educate patient on diabetic friendly foods/meals and how to monitor carb intake. Case managerpassed these concerns on to patient nurse and attending physician. * Mary Dickey, OT - 2019 3:16 PM CDT 07/31/19 1400 OBSERVATION Eval Reason for admission DX: CLAUDIO. Fell in kitchen 07/30/19 and brought to ER. Comorbidities Relevant to OT PMH includes at [facility] 06/22-07/18/19 for bactremia, UTI. PMH sig for CA, DM, GERD, HTN, HLD, hypothyroid, insomnia, sepsis, nu, hyst, RTC repair. Previous Occupational Therapy Inpatient Therapy;Home care Ordering Provider Dr. Gomez Verified Two Patient Identifiers Yes Patient consents to therapy Yes Acute Inpatient OT Time Calculation OT Start Time 931 OT Stop Time 958 OT Time Calculation (min) 27 min OT Therapy Interruption (min) Total eval time 45 ; Co-eval w/ PT Precautions Precautions Yes/No Yes General Precautions Bed Alarm;Chair Alarm;Fall Risk (Telemetry and IV) Instructed on Precautions Yes;Needs reinforcement and education Other Abrasion to R hip/side Subjective Subjective Patient states she just feels so weak and shaky. Had been getting more shaky the past 5 days before coming back to [facility]. Had been trying to sit when felt too weak. Was planning on moving inwith daughter, but that is 2-3 months away yet. Home Living Type of Home Apartment ([address]) Home Layout One level Home Accessibility 0 Steps to enter Bathroom Shower/Tub Tub/shower unit Bathroom Toilet Grab bars around toilet Bathroom Equipment Tub/shower chair with back Home Equipment 2 Wheeled walker;4 Wheeled walker Additional Comments Getting MOW and HH recently Prior Function Level of Gamaliel Independent with ADLs;Independent with functional transfers;Independent with ambulation;Needs assistance with homemaking Device used at baseline 2 Wheeled walker;4 Wheeled walker Baseline Ambulation Distance/Assistance household distances Fall History Yes Reason for fall weakness Most recent fall 07/30/19 Lives With Alone Receives Help From Family;Home health Pain Pain Patient does not offer or c/o pain Activity Tolerance Endurance Tolerates 10 - 20 min activity with rests Vision - Basic Assessment Current Vision Wears glasses Cognition Overall Cognitive Status WFL Arousal/Alertness Appropriate responses to stimuli Attention Span Appears intact Memory Appears intact Orientation Level Oriented X4 Following Commands Follows one step commands with repetition Safety Judgment Good awareness of safety precautions Other (Comment) Very [place] Overall Extremity Assessment Upper Extremity Patient is cautious w/ UE movement. AROM grossly 90 degrees shoulder flexion B UE. Strength grossly 3/5 B shoulders, 3+/5 B elbows/wrists/hands Hand Function Gross Grasp Functional Coordination Functional Sensation Light Touch No apparent deficits ADL Toileting Assistance Total Toileting Deficit Bedside commode;Clothing management up;Clothing management down;Perineal hygiene Additional Comments Patient unable to tolerate full ADL session this am. [facility]/ [facility]. Based on simulation and clinical judgement, patient currently needs mod assist w/ UB ADL's, max assist LB ADL's. Struggles w/ distal reach, endurance, standing tolerance, Bed Mobility Supine to Sit Min assist to left Sit to Supine Min assist to right Other (Comment) Min assist to scoot EOB Functional Transfers Sit to Stand Min assist Bed to Chair Min assist Toilet Transfers Min assist (BSC) Functional Mobility Pivot to/from BSC Balance Sitting - Static SBA Sitting - Dynamic CGA Standing - Static CGA;Support of both upper extremities Standing - Dynamic Min Assist;Support of both upper extremities Assessment Occupational Profile and History Complexity Moderate (Expanded) Performance Skills Deficits Bathing/showering;Dressing;Functional mobility;Meal preparation and cleaning;Personal hygiene and grooming;Toileting Performance Deficit Level High (5 or more deficits) Clinical Decision Making Moderate (min/mod modifications) Complexity Level of Evaluation Moderate Prognosis Good OT Assess/Eval Other (Comment) Aviva has had a significant decline w/ ability to manage BADL's and mob w/ recent fall. She has been struggling at home the past several days. Will benefit from skilled OT to promote max level of indep w/ ADL's and mob so that she can transition to appropriate living situation. Appropriate for swing bed. Question whether or not home alone will be a safe option for this patient due to recent failed attempt w/ home alone. Modified [place] Score Interval Baseline Score 0-6 1 No significant disability despite symptoms, able to carry out all usual duties and activities Patient/Family Training Other (Comment) OT POC Recommendation OT Recommendation Swing Bed Unit OT Equipment Recommended Currently has DME in Place;To Be Determined Plan OT Treatment/Intervention Self-care training;Therapeutic exercises;Therapeutic activities;Patient/family training;Safety;Functional activity OT Frequency (1x/day 4-5x/wk) If this is the last treatment note, it will serve as the discharge summary Yes End of Session Safety End of Session Safety Bed alarm set/activated;Call light within reach Cosigned by Emiliano Hubbard MD at 2019 4:05 PM CDT * AMANDA Blum - 2019 12:37 PM CDT Interdisciplinary Team conference held. In attendance; case management, UR, nursing, PT, OT, cardiopulmonary, TIMBER REPAIRER, Hospitalist, Pastoral Care, and Pharmacy. Meeting held at 11:00. PT/OT evaluated patient and are recommending 2 weeks of PT/OT. Patient was recently here for [facility] program and is agreeable to this again as long as her daughter Krystina is agreeable. Spoke to patient daughter Krystina and she thinks [facility] is a good idea. Notified patient that her daughter thought it was a good idea. Plan to admit patient to [facility] today or tomorrow. * AMANDA Blum - 2019 12:29 PM CDT 07/31/19 1227 Referral Data Referral Reason Discharge Planning Source of Information Patient Patient Information OB Patient < 19 yrs old No Primary Caregiver Self Support System Immediate family Baseline ADL's Functional Status Independent Living Arrangements Alone Type of Residence Private residence Ambulation Assistance No Active DME Four wheel walker Bathing/Grooming Assistance No Dressing Assistance No Behavior Oriented;Cooperative Communication Talks;Understands speaking;Understands French Current Services Being Provided Home Health halfway;Physical therapy;Occupational therapy (current with [facility]) Other Services Meal Service Socioeconomic Needs Caregiver Needed No At Risk of Abuse or Neglect No Adequate Resources Yes Psychological Needs: Mental health concerns No Suspected Drug or Alcohol Abuse No Inappropriate Patient/Family Behaviors No Difficult Adjustment to Diagnosis No Recent Hospitalization Recent Hospitalization within 30 days Yes Anticipated Discharge Needs Change in Living Arrangements No In-Home Care or Equipment No Vocational and/or Role Loss No Inability to Complete ADL's No Anticipated DC Plan Living Arrangements Alone Support Systems Children Type of Residence Private residence Assistance Needed Yes Discharge assistance Home Health;Meals on wheels Patient expects to be discharged to: Home Psychosocial Needs With Indication for Social Work Consult Diagnosis/prognosis resulting in poor adjustment or coping with illness No Diagnosis/prognosis with anticipated outcome of major lifestyle changes, including change in rn long term care living environment No Family concerns/conflicts No Inadequate social and/or financial supports No Abuse and/or neglect of elder, adult or child No Psychiatric and/or substance abuse issues affecting current hospitalization No Homelessness with lack of safe discharge environment No Need for guardianship petition No Chaptered patient No [facility]. [facility] was recently discharged from [facility] program with [facility] home health to follow. Patient would like to resume this service at discharge. * Gina Moyer, PT - 2019 12:20 PM CDT 07/31/19 1200 Therapy Visit Treatment Day (Obs bed eval) Subjective Patient states she just feels so weak and shaky. Had been getting more shaky the past 5 days before coming back to [facility]. Had been trying to sit when felt too weak, but no where to sit when felt weak and fell to floor prior to admission. Was planning on moving in with daughter, but that is2-3 months away yet. Reason for admission DX: CLAUDIO. Fell in kitchen 07/30/19 and brought to ER. Relevant Comorbidities/ Personal Factors to PT PMH includes at [facility] 06/22-07/18/19 for bactremia, UTI,CA, DM, GERD, HTN, HLD, hypothyroid, insomnia, sepsis, nu, hyst, RTC repair. Verified Two Patient Identifiers Yes Patient consents to therapy Yes Acute Inpatient PT Time Calculation PT Start Time 0944 PT Stop Time 1001 PT Time Calculation (min) 17 min PT Therapy Interruption (min) 2' interruption for commode use. 45' eval time total Precautions Precautions Yes/No Yes General Precautions Bed Alarm;Chair Alarm;Fall Risk (IV) Skin Integrity bruising R hip and LB with laceration also - closed without bleeding or dressing Home Living Type of Home Apartment Home Layout (on 2nd floor, uses elevator, no steps to manage) Home Accessibility 0 Steps to enter Home Equipment 2 Wheeled walker;4 Wheeled walker Additional Comments Getting MOW and HH recently Prior Function Level of Gamaliel Independent with ADLs;Independent with functional transfers;Independent with ambulation Device used at baseline 2 Wheeled walker;4 Wheeled walker Baseline Ambulation Distance/Assistance household distances Fall History Yes Reason for fall weakness Most recent fall 07/30/19 Lives With Alone Receives Help From Family;Home health (daughter provides groceries and transportation) Pain Pain Patient does not offer or c/o pain (Denies pain. Also, denies dizziness) Activity Tolerance Endurance Tolerates 10 - 20 min activity with rests Vision - Basic Assessment Current Vision Wears glasses Cognition Overall Cognitive Status WFL Arousal/Alertness Appropriate responses to stimuli Attention Span Appears intact Memory Appears intact Orientation Level Oriented X4 Following Commands Follows one step commands with repetition (very [place]) Other (Comment) Very [place] Sensation Light Touch No apparent deficits Additional Comments Denies N/T Overall Extremity Assessment Upper Extremity See OT eval Lower Extremity AROM WFL Lower Extremity Comment / seated MMT motions for B LE Bed Mobility Supine to Sit Min assist to left Sit to Supine Min assist to right Other (Comment) Min assist to scoot EOB TRANSFERS Stand Pivot Transfers Min assist Sit to Stand Min assist Other (Comment) All trans with WW. Min assist for stand to sit also. Cues for safety and hand placement. Gait Gait Assistance Min assist Assistive Device 2 Wheeled walker Ambulation Distance (Feet) steps bed <-> commode Pattern Shuffle steps Weight Bearing Status Total Other (Comment) slow movement, fatigues easily, c/o feeling weak and shaky Balance Sitting - Static SBA Sitting - Dynamic CGA Standing - Static CGA;Support of both upper extremities Standing - Dynamic Min Assist;Support of both upper extremities Assessment Personal Factors/Comorbidities Impacting Care 3-4 personal factors/comorbidities Examination of Body Systems Moderate (3 or more Elements) Objectives of Body Systems Impaired bed mobility;Impaired transfers;Impaired ambulation Clinical Presentation of Patient Evolving and changing characteristics Complexity Level of Evaluation Moderate Prognosis Good (for goals) PT Assess/Eval Other (Comment) Patient with recent fall and medical issues. Not at PLOF of indep with AD and safe to be alone in her apt at this time. She would benefit from further PT to improve overall mobility and safety so that she can eventually return to her apt with limited assistance. Anticipate need for swing bed to fully meet PT goals. Recommendation PT Recommendation PT during Hospitalization;Swing Bed Unit PT Equipment Recommended Currently has DME in Place Plan PT Treatments/Interventions Gait Training;Therapeutic Exercises;Therapeutic Activities;Neuromuscular re-education;Patient/family training PT Frequency (5-11 visits/wk) PT plan for next session Progress overall mobility, safety, and EX/endurance as able. If this is the last treatment note,it will serve as the discharge summary Yes End of Session Safety End of Session Safety Bed alarm set/activated;Chair alarm set/activated;Call light within reach Cosigned by Emiliano Hubbard MD at 2019 1:21 PM CDT documented in this encounter H&P Notes * Emiliano Hubbard MD - 2019 8:21 AM CDT Hospitalist History and Physical Admission date: 07/30/2019 Reason for Admission: CLAUDIO (acute kidney injury) ([facility]/HCC) History of present illness: Aviva Ch is a 84-year-old female, who has a past medical history of Cancer ([facility]), Diabetes (CMS/HCC), GERD (gastroesophageal reflux disease), Hyperlipidemia, Hypertension, Hypothyroidism, Insomnia, Sepsis (CMS/[facility]), and Vitamin D deficiency.; and a has a past surgical history that includes Abdominal surgery; breast reduction bilateral; Cholecystectomy; colonoscopy; Hemorrhoidectomy; Hysterectomy; inner ear surgery proc unlisted; and repair rotator cuff,acute. Who presents with dizziness and fall while in the kitchen standing 5 days following admission for UTI. Imaging negative for fracture or bleed. Denies fevers, chills, chest pain, shortness of breath, nausea, vomiting or diarrhea.. Allergies Allergies Allergen Reactions ??? Septra [Sulfamethoxazole-Trimethoprim] Rash Medication List: Medications Prior to Admission Medication Sig Dispense Refill ??? AMLODIPINE 5 MG tablet TAKE 1 TABLET BY MOUTH DAILY (Patient taking differently: Take 5 mg by mouth daily. ) 90 tablet 1 ??? aspirin EC 81 MG EC tablet Take 81 mg by mouth daily. ??? BENAZEPRIL 20 MG tablet TAKE 1 TABLET BY MOUTH EVERY DAY (Patient taking differently: Take 10 mg by mouth daily. ) 90 tablet 1 ??? Cholecalciferol (VITAMIN D) 2000 units Cap Take 2,000 Units by mouth daily. ??? donepezil 10 MG Tab Take 10 mg by mouth every morning. ??? furosemide 20 MG tablet Take 1 tablet (20 mg total) by mouth daily. 30 tablet 0 ??? hydrochlorothiazide 25 MG tablet Take 1 tablet (25 mg total) by mouth every morning. 90 tablet 3 ??? levothyroxine 50 MCG tablet Take 1 tablet (50mcg total) by mouth in the morning on Wednesday andWednesday. ??? POTASSIUM CHLORIDE CR 10 MEQ tablet TAKE 1 TABLET(10 MEQ) BY MOUTH DAILY WITH BREAKFAST 10 tablet 0 ??? PRAVASTATIN 40 MG tablet TAKE 1 TABLET BY MOUTH AT BEDTIME (Patient taking differently: Take 40mg by mouth nightly at bedtime. ) 90 tablet 0 ??? sertraline 100 MG tablet Take 100 mg by mouth every morning. ??? trazodone 50 MG tablet Take 50 mg by mouth nightly at bedtime. Current Facility-Administered Medications Medication ??? acetaminophen (TYLENOL) tablet 650 mg ??? aspirin EC (ECOTRIN) tablet 81 mg ??? docusate sodium (COLACE) capsule 100 mg ??? donepezil (ARICEPT) tablet 10 mg ??? heparin (porcine) injection 5,000 Units ??? [START ON 08/05/2019] levothyroxine (SYNTHROID) tablet 50 mcg ??? ondansetron (ZOFRAN) injection 4 mg ??? polyethylene glycol (GLYCOLAX) packet 17 g ??? pravastatin (PRAVACHOL) tablet 40 mg ??? sertraline (ZOLOFT) tablet 100 mg ??? sodium chloride 0.9% infusion ??? traZODone (DESYREL) tablet 50 mg ??? vitamin D3 (cholecalciferol) tablet 2,000 Units Past Medical History Past Medical History: Diagnosis Date ??? Cancer [...] UNLISTED ??? REPAIR ROTATOR CUFF,ACUTE Social History Social [...] file Gets together: Not on file Attends restoration service: Not on file Active member of [...] Self Care Not Asked Social History Narrative ??? Not on file Family History Family History Problem Relation Name Age of Onset ??? Diabetes Other ??? Breast Cancer Other ??? Other (cardiac disorder) Other ??? Heart Attack Mother Review of Systems: A 14 point review of systems was taken and pertinent positive as per HPI. Physical Exam: Vitals: 07/31/19 0755 BP: 116/60 Pulse: 55 Resp: 16 Temp: 96.3 ??F (35.7 ??C) SpO2: 97% General: Laying in bed, tired. Eyes: EOMI, PERRLA ENT: MMM, septum midline Lungs: Dec BS in the bases, No wheezes, No crackles Cardiovascular: Regular rate rhythm, S1 and S2 normal, No murmurs, Abdomen: S, NT, no rebound/guarding. BS present. Extremities: Tr edema. Neurological: Tired, No gross neuro deficit Psych: Flat affect, nl mood Skin: Skin color, texture, turgor normal. No rashes or lesions Intake/Output last 3 shifts: I/O last 3 completed shifts: In: - Out: 100 [Urine:100] Labs: Recent Labs Lab 07/30/19221507/31/19 06 NA 124* 127* K 2.8* 4.9 CL 86* 93* CO2 29.2 25.5 AGAP 8.8 8.5 BUN 31* 23* CR 1.43* 0.97 BUNCREATININ 21.7 23.7 GFRNON 34* 54* GFR 39* 62* GLU 154* 108* CA 10.2* 9.4 MAGNESIUM -- 2.4 Recent Labs Lab 07/30/19221507/31/19628 WBC 8.1 5.0 RBC 4.48* 4.21* HGB 12.8 12.1* HCT 36.8 35.0* MCV 82.1 83.1 MCH 28.6 28.7 MCHC 34.8* 34.6* PLT 194 159 RDW 13.0 13.2 MPV 10.5 10.9 Recent Labs Lab 07/30/192215 AST 42* ALT 68* Recent Labs Lab 07/30/192215 INR 1.1 Invalid input(s): ABG Recent Labs Lab 07/30/19221507/31/19 0041 07/31/19 0629 TROP <0.017 <0.017 <0.017 No results for input(s): PH, PCO2, PO2, A6NEIQTHUMPD, BICARBWB, BASEDEFICIT, BASEEXCESS in the [id number] hours. Imaging & Other Studies No results found. Results for orders placed or performed during the hospital encounter of 07/30/19 ECG 12 lead Narrative [facility] Test Date: 2019-07-30 Pat Name: AVIVA CH Department: Room: 123 Gender: Female Clinical Trial Assistant: : 1935 Requested By: ERICH CONNOR Order Number: [id number] Spencer BERMUDEZ: Scott Cabello Measurements Intervals [place] Rate: 68 P: -74 W[place]: 212 QRS: 44 QRSD: 158 T: -14 QT: 434 QTc: 464 Interpretive Statements SINUS RHYTHM WITH FIRST DEGREE AV BLOCK WITH OCCASIONAL SUPRAVENTRICULAR PREMATURE COMPLEXES RIGHT BUNDLE BRANCH BLOCK [120+ ms QRS DURATION, UPRIGHT V1, 40+ ms S IN I/aVL/V4/V5/V6] Compared to ECG 07/15/2019 13:37:26 Sinus bradycardia no longer present Sinus arrhythmia no longer present Active Problems: Patient Active Problem List Diagnosis Date Noted ??? CLAUDIO (acute kidney injury) ([facility]) 07/30/2019 ??? Type 2 diabetes mellitus with stage 3 chronic kidney disease, without long- term current use of insulin ([facility]) 07/26/2019 ??? E-coli UTI 07/07/2019 ??? Bacteremia 07/03/2019 ??? Physical deconditioning 11/02/2018 ??? Environmental and seasonal allergies 11/02/2018 ??? SOB (shortness of breath) 08/05/2018 ??? Atypical chest pain 06/21/2018 ??? Dizziness 06/18/2018 ??? Otitis externa of right ear, unspecified chronicity, unspecified type 06/15/2018 ??? Diverticulitis 06/15/2018 ??? Suprapubic pain 06/15/2018 ??? Diarrhea, unspecified type 03/10/2018 ??? Vaginal burning 03/10/2018 ??? GERD (gastroesophageal reflux disease) 05/17/2017 ??? Colitis 03/17/2017 ??? Claudication ([facility]) 08/10/2016 ??? 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 Lumbago 08/10/2016 ??? Hypothyroidism 08/07/2015 ??? Insomnia 01/11/2015 ??? Diabetes mellitus ([facility]) 12/25/2014 ??? Hyperlipidemia 12/25/2014 ??? Hypertension 12/25/2014 Assessment & Plan: Presyncope with fall and electrolyte abnormalities of hypokalemia and hyponatremia Suspect iatrogenic secondary to Lasix and possibly hydrochlorothiazide/Lasix/amlodipine, will hold for now Gentle hydration Troponins negative stable on telemetry Hold antihypertensives for now as likely cause for electrolyte abnormalities Diabetes ADA diet if pt allows ISS Avoid Metformin while inpatient HTN Hold Lasix, amlodipine, hydrochlorothiazide, ANGEL inhibitor, monitor trend Hyperlipidemia continue current regimen Dehydration mild, avoid nephrotoxic agents Hypothyroidism Cont current regimen Depression appears stable continue current regimen History of cancer noted adds complexity patient care Insomnia on trazodone may be contributing consider holding if patient complies DVT Prophylaxis Heparin Subcutaneous, SCD. Advanced care full code Projected length of stay to home in the next 2 days pending patient progress EMILIANO HUBBARD MD 2019 8:21 AM documented in this encounter Nursing Notes * Denise Mcmahon RN - 08/01/2019 4:56 PM CDT Pt daughter Krystina called and updated on pt swinging today for PT. documented in this encounter ED Notes * Josep Carty RN - 07/30/2019 10:[address] SCAN PER JOHN * Erich Connor MD - 07/30/2019 10:20 PM CDTAssociated Order(s): EKG Reading Chief Complaint Chief Complaint Patient presents with ??? Fall PT TO ER PER [facility] WITH C/O FALL. PT STATED WAS STANDING IN THE KITCHEN AND JUST FELL OVER. PT STATED HAVE BEEN FEELING LIGHT HEADED FOR PAST WEEK. PT HAD BEEN DISCHARGED FROM HOSPITAL 5 DAYS AGO AND HAD BEEN TREATED FOR A UTI History of Present Illness Patient is an 83 year old female complaining of fall while standing in her kitchen. She describes feeling dizzy but no chest pain, no shortness of breath. She got dizzy and fell to the floor hitting the wall with her right side on the way down. PMH reviewed, see list below FH reviewed, see list below SH: no tobacco, no alcohol, no drugs. History provided by: Patient Fall The accident occurred 3 to 5 hours ago (630 PM). The fall occurred while standing. She fell from a height of 3 to 5 ft. She landed on a hard floor. There was no blood loss. The point of impact was the head. The pain is present in the right hip. The pain is moderate. She was ambulatory at the scene.There was no entrapment after the fall. There was no drug use involved in the accident. There was no alcohol use involved in the accident. Pertinent negatives include no visual change, no fever, no numbness, no abdominal pain, no bowel incontinence, no nausea, no vomiting, no hematuria, no headaches, no hearing loss, no loss of consciousness and no tingling. Treatment on scene includes a c-collar. She has tried ice for the symptoms. The treatment provided mild relief. Medical History ALLERGIES: Allergies Allergen Reactions ??? Septra [Sulfamethoxazole-Trimethoprim] Rash MEDICATIONS: Prior to Admission medications Medication Sig Start Date End Date Taking? Authorizing Provider AMLODIPINE 5 MG tablet TAKE 1 TABLET BY MOUTH DAILY Patient taking differently: Take 5 mg by mouth daily. 06/20/19 Josep Mckeon MD aspirin EC 81 MG EC tablet Take 81 mg by mouth daily. 01/03/18 Elaina Jade MD BENAZEPRIL 20 MG tablet TAKE 1 TABLET BY MOUTH EVERY DAY Patient taking differently: Take 10 mg by mouth daily. 06/20/19 Josep Mckeon MD Cholecalciferol (VITAMIN D) 2000 units Cap Take 2,000 Units by mouth daily. 01/03/18 Elaina Jade MD donepezil 10 MG Tab Take 10 mg by mouth every morning. Doc Abstract furosemide 20 MG tablet Take 1 tablet (20 mg total) by mouth daily. 07/19/19 Ludy Coon NP hydrochlorothiazide 25 MG tablet Take 1 tablet (25 mg total) by mouth every morning. 09/21/18 Josep Price MD levothyroxine 50 MCG tablet Take 1 tablet (50mcg total) by mouth in the morning on Wednesday and Wednesday. 03/08/19 Josep Mckeon MD POTASSIUM CHLORIDE CR 10 MEQ tablet TAKE 1 TABLET(10 MEQ) BY MOUTH DAILY WITH BREAKFAST 07/24/19 Elaina Jade MD PRAVASTATIN 40 MG tablet TAKE 1 TABLET BY MOUTH AT BEDTIME Patient taking differently: Take 40 mg by mouth nightly at bedtime. 05/15/19 Elaina Jade MD sertraline 100 MG tablet Take 100 mg by mouth every morning. Doc Abstract trazodone 50 MG tablet Take 50 mg by mouth nightly at bedtime. Doc Abstract PAST MEDICAL HISTORY: Past Medical History: Diagnosis Date ??? Cancer (CMS/HCC) Past cancer survivor. ??? Diabetes (CMS/HCC) ??? GERD (gastroesophageal reflux disease) ??? Hyperlipidemia ??? Hypertension ??? Hypothyroidism ??? Insomnia ??? Sepsis (CMS/HCC) ??? Vitamin D deficiency PAST SURGICAL HISTORY: Past Surgical History: Procedure Laterality Date ??? ABDOMINAL SURGERY ??? BREAST REDUCTION BILATERAL ??? CHOLECYSTECTOMY ??? COLONOSCOPY ??? HEMORRHOIDECTOMY ??? HYSTERECTOMY ??? INNER EAR SURGERY PROC UNLISTED ??? REPAIR ROTATOR CUFF,ACUTE FAMILY HISTORY: Family History Problem Relation Name Age of Onset ??? Diabetes Other ??? Breast Cancer Other ??? Other (cardiac disorder) Other ??? Heart Attack Mother SOCIAL HISTORY: Social History Tobacco Use ??? Smoking status: Never Smoker ??? Smokeless tobacco: Never Used Substance Use Topics ??? Alcohol use: No Frequency: Never ??? Drug use: No Review of Systems Review of Systems Constitutional: Negative for activity change, appetite change and fever. HENT: Negative for congestion and sore throat. Eyes: Negative for visual disturbance. Respiratory: Negative for cough, chest tightness, shortness of breath, wheezing and stridor. Cardiovascular: Negative for chest pain, palpitations and leg swelling. Gastrointestinal: Negative for abdominal pain, bowel incontinence, nausea and vomiting. Endocrine: Negative for polydipsia, polyphagia and polyuria. Genitourinary: Negative for dysuria and hematuria. Musculoskeletal: Negative for back pain and neck pain. Skin: Negative for pallor and rash. Allergic/Immunologic: Negative for immunocompromised state. Neurological: Positive for dizziness and weakness. Negative for tingling, seizures, loss of consciousness, numbness and headaches. Psychiatric/Behavioral: Negative for agitation. Physical Exam Filed Vitals: 07/30/19 2200 BP: 137/63 Pulse: 76 Resp: 16 Temp: 98.4 ??F (36.9 ??C) TempSrc: Temporal SpO2: 95% Weight: 60.8 kg (134 lb) Height: 5' 3.5 (1.613 m) Physical Exam Constitutional: She is oriented to person, place, and time. She appears well- developed and well-nourished. Pulse ox 95% on Room Air, normal. HENT: Head: Normocephalic. Scalp hematoma Eyes: Pupils are equal, round, and reactive to light. EOM are normal. Neck: Normal range of motion. Neck supple. Cardiovascular: Normal rate, regular rhythm, normal heart sounds and intact distal pulses. Pulmonary/Chest: Effort normal and breath sounds normal. Abdominal: Soft. Bowel sounds are normal. Musculoskeletal: Normal range of motion. No hip pain, knee pain or ankle pain. Neurological: She is alert and oriented to person, place, and time. She displays normal reflexes. No cranial nerve deficit or sensory deficit. She exhibits normal muscle tone. Coordination normal. Skin: Skin is warm and dry. Linear deep abrasion to right hip, hematoma, right hip. Scalp hematoma right parietal. No facial orscalp lacerations. Nursing note and vitals reviewed. Diagnostic Studies / Procedures ELECTROCARDIOGRAMS: Results for orders placed or performed during the hospital encounter of 07/30/19 ECG 12 lead Narrative [facility] Test Date: 2019-07-30 Pat Name: AVIVA CH Department: Room: EXAM 404 Gender: Female Clinical Trial Assistant: : [id number] Requested By: ERICH CONNOR Order Number: [id number] Reading MD: Measurements Intervals [place] Rate: 68 P: -74 W[place]: 212 QRS: 44 QRSD: 158 T: -14 QT: 434 QTc: 464 Interpretive Statements SINUS RHYTHM WITH FIRST DEGREE AV BLOCK WITH OCCASIONAL SUPRAVENTRICULAR PREMATURE COMPLEXES RIGHT BUNDLE BRANCH BLOCK [120+ ms QRS DURATION, UPRIGHT V1, 40+ ms S IN I/aVL/V4/V5/V6] Compared to ECG 07/15/2019 13:37:26 Sinus bradycardia no longer present Sinus arrhythmia no longer present LABORATORY STUDIES: No results found for this visit on 07/30/19. IMAGING STUDIES CT HEAD WO CON (Results Pending) CT CERV SPINE WO CON (Results Pending) CT PEL WO CON (Results Pending) XR CHEST PA+LAT (Results Pending) EKG Reading Date/Time: 07/30/2019 10:30 PM Performed by: Erich Connor MD Authorized by: Erich Connor MD Interpreted by ED physician Comparison: compared with previous ECG from 07/15/2019 Comparison to previous ECG: No change from previous Rhythm: sinus rhythm Ectopy: PVCs Rate: normal BPM: 68 Conduction: right bundle branch block ST Segments: ST segments normal T Waves: T waves normal Other: no other findings Clinical impression: abnormal ECG Comments: PVCs noted on ECG by EMS, occ PVC, otherwise morphologically no change from previous. ED Course / Medical Decision Making MDM Number of Diagnoses or Management Options Acute kidney injury (CMS/HCC): Closed head injury: Contusion of hip: Dehydration: Dizziness: Fall at home, initial encounter: Hypokalemia: Hyponatremia: Scalp hematoma, initial encounter: Diagnosis management comments: Diff Dx: Dizziness and fall secondary to cardiac dysrhythmia versus ACS versus metabolic derangement versus recurrent infectious process. Patient recently admitted here for UTI and discharged to rehab due to weakness. Will do labs, CT of head, neck and pelvis due to multiple locations of trauma, Head and pelvis. There is a long linear abrasion to right hip and a soft tissue hematoma right buttock from impact to wall. Also soft tissue scalp hematoma from impact to head. Patient is hard of hearing but otherwise alert, awake, oriented x 3 and with no motor or sensory deficits on exam. Reportedly, she has been fully ambulatory after fall before calling EMS. Progress Note: Radiology and CT reports from [facility] reviewed and noted as follows: Chest X-ray - no acute cardiopulmonary process, no pulmonary airspace consolidation, no pleural effusion, no PTX, unremarkable cardiomediastinal silhoutte CT Head: no acute intracranial abnormality, soft tissue swelling right frontoparietal scalp CT C-spine: No acute fractures CT Pelvis: No acute fracture, no dislocation. Hematoma of subcutaneous fat, right gluteal soft tissues 4.7 x 4.1 x 2.9 cm. Labs reviewed and notable for metabolic abnormalities: Hypokalemia - 2.8 Hyponatremia - 124 Acute Kidney Injury - Bun/Creat 31/1.4 All lab values compared to her previous and significantly changed. Will start IV fluids as well as IV and PO replacement of potassium. Case discussed with Dr. Gomez, Hospitalist. Patient has been accepted for admission to telemetry bed. Plan of care discussed with patient who agrees to admission Diagnosis: (1) Acute Kidney Injury (2) Dehydration (3) Dizziness (4) Hypokalemia (5) Hyponatremia (6) Closed head injury (7) Scalp Hematoma (8) Hip Contusion (9) Hip soft tissue Hematoma (10) Fall Disposition: Admit to Telemetry Unit. Amount and/or Complexity of Data Reviewed Clinical lab tests: ordered and reviewed Tests in the radiology section of CPT??: ordered and reviewed Tests in the medicine section of CPT??: ordered and reviewed Discussion of test results with the performing providers: yes Decide to obtain previous medical records or to obtain history from someone other than the patient:yes Obtain history from someone other than the patient: yes Review and summarize past medical records: yes Discuss the patient with other providers: yes Independent visualization of images, tracings, or specimens: yes Risk of Complications, Morbidity, and/or Mortality Presenting problems: moderate Diagnostic procedures: moderate Management options: moderate Patient Progress Patient progress: improved Clinical Impression None Disposition: Data Unavailable Erich Connor MD 08/04/19 1950 documented in this encounter Plan of Treatment Not on file documented as of this encounter Goals Goal Patient Goal Type Associated Problems Recent Progress Patient-Stated? 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 documented as of this encounter Procedures Procedure Name Priority Date/Time Associated Diagnosis Comments POCT GLUCOSE - MARISCAL DOCKED DEVICE Routine 08/01/2019 4:40 PM CDT POCT GLUCOSE - MARISCAL DOCKED DEVICE Routine 08/01/2019 11:16 AM CDT BASIC METABOLIC PANEL Routine 08/01/2019 6:20 AM CDT CBC W/DIFF AUTOMATED Routine 08/01/2019 6:20 AM CDT MAGNESIUM Routine 08/01/2019 6:20 AM CDT POCT GLUCOSE - MARISCAL DOCKED DEVICE Routine 2019 8:41 PM CDT POCT GLUCOSE - MARISCAL DOCKED DEVICE Routine 2019 5:10 PM CDT POCT GLUCOSE - MARISCAL DOCKED DEVICE Routine 2019 12:15 PM CDT BASIC METABOLIC PANEL Routine 2019 6:29 AM CDT CBC W/DIFF AUTOMATED Routine 2019 6:29 AM CDT TROPONIN, QUANT TIMED 2019 6:29 AM CDT THYROID STIM HORMONE TSH Routine 020 6:29 AM CDT MAGNESIUM Routine 2019 6:29 AM CDT TROPONIN, QUANT TIMED 2019 12:41 AM CDT URINALYSIS, AUTO, COMPLETE STAT 07/30/2019 11:07 PM CDT XR CHEST PA+LAT STAT 07/30/2019 10:[address] PEL WO CON STAT 07/30/2019 10:[address] HEAD WO CON STAT 07/30/2019 10:[address] CERV SPINE WO CON STAT 07/30/2019 10:57 PM CDT ELECTROCARDIOGRAM REPORT Routine 10:20 PM CDT LACTIC ACID STAT 07/30/2019 10:17 PM CDT PROTHROMBIN TIME, VENOUS STAT 020 10:16 PM CDT COMPREHENSIVE METABOLIC PANEL STAT 07/30/2019 10:16 PM CDT CBC W/DIFF AUTOMATED STAT 07/30/2019 10:16 PM CDT TROPONIN, QUANT STAT 07/30/2019 10:16 PM CDT ECG 12-LEAD Routine 07/30/2019 10:07 PM CDT documented in this encounter Results * POCT glucose (08/01/2019 4:40 PM CDT) GLUCOSE POC 87 70 - 110 mg/dL 08/01/2019 4:47 PM CDT [facility] ORDERS INTERFACE 08/01/2019 4:40 PM CDT Emiliano Hubbard MD POCT ORDERABLES - DEVICE Final Result [facility] ORDERS INTERFACE US * POCT glucose (08/01/2019 11:16 AM CDT) GLUCOSE POC 88 70 - 110 mg/dL 08/01/2019 12:05 PM CDT [facility] ORDERS INTERFACE 08/01/2019 11:1 6 AM CDT us Emiliano Hubbard MD POCT ORDERABLES - DEVICE Final Result Performing Organization Address City/[facility]/ZIP Co de Phone Number [facility] ORDERS INTERFACE US * (ABNORMAL) MAGNESIUM (08/01/2019 6:20 AM CDT) MAGNESIUM 1.7(L) 1.8 - 2.4 MG/DL 08/01/2019 7:06 AM CDT [facility] 08/01/2019 6:20 AM CDT Leia Davenport MD LABORATORY Final Result [facility] [address] [place] [address], [place] [phone] * (ABNORMAL) BASIC METABOLIC PANEL (08/01/2019 6:20 AM CDT) GLUCOSE 88 70 - 99 MG/DL 08/01/2019 7:06 AM CDT [facility] BUN 14 7 - 18 MG/DL 08/01/2019 7:06 AM T [facility] CREATININE S/P/B 0.80 0.55 - 1.02 MG/DL 08/01/2019 7:06 AM [facility] SODIUM S/P/B 136 136 - 145 MMOL/L 08/01/2019 7:06 AM T [facility] POTASSIUM S/P/B 3.8 3.5 - 5.1 MMOL/L 08/01/2019 7:06 AM T [facility] CHLORIDE S/P/B 102 100 - 108 MMOL/L 08/01/2019 7:06 AM [facility] CO2 27.4 21 - 32 MMOL/L 08/01/2019 7:06 AM [facility] CALCIUM S/P/B 8.6 8.5 - 10.1 MG/DL 08/01/2019 7:06 AM [facility] ANION GAP 6.6 5 - 15 MMOL/L 08/01/2019 7:06 AM [facility] BUN CREATININE RATIO 17.5 6 - 26 08/01/2019 7:06 AM [facility] EGFR NON-AFR. AMER. 68(L) >90 ML/MIN/1.7 3 M2 08/01/2019 7:06 AM [facility] EGFR AFR. AMER. 78(L) >90 ML/MIN/1.7 3 M2 08/01/2019 7:06 AM [facility] Comment: NOTE: eGFR is not calculated for patients <18 years of age. This is an estimated GFR (CKD EPI) and should not be used for calculating drug doses. 08/01/2019 6:20 AM CDT Leia Davenport MD LABORATORY Final Result [facility] [address] [place] [address], * (ABNORMAL) CBC W/DIFF AUTOMATED (08/01/2019 6:20 AM CDT) [facility] Signature WBC 3.6(L) 4.4 - 11.0 x10'3/uL 08/01/2019 6:56 AM CDT [facility] RBC 3.90(L) 4.50 - 5.10 x10'6/uL 08/01/2019 6:56 AM CDT [facility] HGB 11.2(L) 12.3 - 15.3 G/DL 08/01/2019 6:56 AM CDT [facility] HCT 33.2(L) 35.9 - 44.6 % 08/01/2019 6:56 AM CDT [facility] MCV 85.1 80.0 - 96.0 FL 08/01/2019 6:56 AM CDT [facility] MCH 28.7 25.3 - 30.9 PG 08/01/2019 6:56 AM CDT [facility] MCHC 33.7 31.0 - 34.1 G/DL 08/01/2019 6:56 AM CDT [facility] RDW 13.6 12.4 - 15.1 % 08/01/2019 6:56 AM CDT [facility] PLT 165 151 - 353 x10'3/uL 08/01/2019 6:56 AM CDT [facility] MPV 10.2 9.6 - 12.0 FL 08/01/2019 6:56 AM CDT [facility] RBC MORPHOLOGY NORMAL 08/01/2019 6:56 AM CDT [facility] PLT MORPH. NORMAL 08/01/2019 6:56 AM CDT [facility] WBC MORPHOLOGY NORMAL 08/01/2019 6:56 AM CDT [facility] LYMPHOCYTES % 17.2 15.8 - 45.0 % 08/01/2019 6:57 AM CDT [facility] NEUTROPHILS % 69.5 42.1 - 71.9 % 08/01/2019 6:57 AM CDT [facility] MONOCYTES % 10.0 5.7 - 12.5 % 08/01/2019 6:57 AM CDT [facility] EOSINOPHILS 1.9 0.0 - 5.6 % 08/01/2019 6:57 AM CDT [facility] BASOPHILS 0.8 0.0 - 1.3 % 08/01/2019 6:57 AM CDT [facility] ABS. NEUTROPHILS TOTAL 2.50 1.40 - 6.00 x10'3/uL 08/01/2019 6:57 AM T [facility] IMMATURE GRANS % 0.6(H) 0.0 - 0.5 % 08/01/2019 6:57 AM T [facility] ABS. LYMPHOCYTES 0.62(L) 0.80 - 4.70 x10'3/uL 08/01/2019 6:57 AM T [facility] 08/01/2019 6:20 AM CDT us Leia Davenport MD LABORATORY Final Result [facility] [address] [place] [address], * (ABNORMAL) POCT glucose (2019 8:41 PM CDT) GLUCOSE POC 119(H) 70 - 110 mg/dL 08/01/2019 1:20 AM CDT [facility] ORDERS INTERFACE 2019 8:41 PM CDT Emiliano Hubbard MD POCT ORDERABLES - DEVICE Final Result Performing Organization Address [facility] Phone Number [facility] ORDERS INTERFACE US * POCT glucose (2019 5:10 PM CDT) GLUCOSE POC 88 70 - 110 mg/dL 2019 5:14 PM CDT [facility] ORDERS INTERFACE 2019 5:10 PM CDT Emiliano Hubbard MD POCT ORDERABLES - DEVICE Final Result Performing Organization Address [facility] Phone Number [facility] ORDERS INTERFACE US * (ABNORMAL) POCT glucose (2019 12:15 PM CDT) GLUCOSE POC 129(H) 70 - 110 mg/dL 2019 12:43 PM CDT [facility] ORDERS INTERFACE 2019 12:1 5 PM CDT Emiliano Hubbard MD POCT ORDERABLES - DEVICE Final Result Performing Organization Address [facility] Phone Number [facility] ORDERS INTERFACE US * MAGNESIUM (2019 6:29 AM CDT) MAGNESIUM 2.4 1.8 - 2.4 MG/DL 2019 7:38 AM CDT [facility] 2019 6:29 AM CDT Leia Davenport MD LABORATORY Final Result Performing Organization Address [facility] Co de Phone Number [facility] [address] [place] [address], [place] [phone] * (ABNORMAL) BASIC METABOLIC PANEL (2019 6:29 AM CDT) [facility] GLUCOSE 108(H) 70 - 99 MG/DL 2019 7:38 AM [facility] BUN 23(H) 7 - 18 MG/DL 2019 7:38 AM [facility] CREATININE S/P/B 0.97 0.55 - 1.02 MG/DL 2019 7:38 AM [facility] SODIUM S/P/B 127(L) 136 - 145 MMOL/L 2019 7:38 AM [facility] POTASSIUM S/P/B 4.9 3.5 - 5.1 MMOL/L 2019 7:39 AM [facility] CHLORIDE S/P/B 93(L) 100 - 108 MMOL/L 2019 7:38 AM [facility] CO2 25.5 21 - 32 MMOL/L 2019 7:38 AM [facility] CALCIUM S/P/B 9.4 8.5 - 10.1 MG/DL 2019 7:38 AM [facility] ANION GAP 8.5 5 - 15 MMOL/L 2019 7:38 AM [facility] BUN CREATININE RATIO 23.7 6 - 26 2019 7:38 AM [facility] EGFR NON-AFR. AMER. 54(L) >90 ML/MIN/1.7 3 M2 2019 7:38 AM [facility] EGFR AFR. AMER. 62(L) >90 ML/MIN/1.7 3 M2 2019 7:38 AM [facility] Comment: NOTE: eGFR is not calculated for patients <18 years of age. This is an estimated GFR (CKD EPI) and should not be used for calculating drug doses. 2019 6:29 AM CDT us Leia Davenport MD LABORATORY Final Result [facility] [address] [place] [address], [place] [phone] * (ABNORMAL) CBC W/DIFF AUTOMATED (2019 6:29 AM CDT) [facility] WBC 5.0 4.4 - 11.0 x10'3/uL 2019 7:11 AM CDT [facility] RBC 4.21(L) 4.50 - 5.10 x10'6/uL 2019 7:11 AM CDT [facility] HGB 12.1(L) 12.3 - 15.3 G/DL 2019 7:11 AM CDT [facility] HCT 35.0(L) 35.9 - 44.6 % 2019 7:11 AM CDT [facility] MCV 83.1 80.0 - 96.0 FL 2019 7:11 AM CDT [facility] MCH 28.7 25.3 - 30.9 PG 2019 7:11 AM CDT [facility] MCHC 34.6(H) 31.0 - 34.1 G/DL 2019 7:11 AM CDT [facility] RDW 13.2 12.4 - 15.1 % 2019 7:11 AM CDT [facility] PLT 159 151 - 353 x10'3/uL 2019 7:11 AM CDT [facility] MPV 10.9 9.6 - 12.0 FL 2019 7:11 AM CDT [facility] RBC MORPHOLOGY NORMAL 2019 7:11 AM CDT [facility] PLT MORPH. NORMAL 2019 7:11 AM T [facility] WBC MORPHOLOGY NORMAL 2019 7:11 AM CDT [facility] LYMPHOCYTES % 11.5(L) 15.8 - 45.0 % 2019 7:11 AM CDT [facility] NEUTROPHILS % 75.2(H) 42.1 - 71.9 % 2019 7:11 AM CDT [facility] MONOCYTES % 10.9 5.7 - 12.5 % 2019 7:11 AM CDT [facility] EOSINOPHILS 1.4 0.0 - 5.6 % 2019 7:11 AM CDT [facility] BASOPHILS 0.4 0.0 - 1.3 % 2019 7:11 AM CDT [facility] ABS. NEUTROPHILS TOTAL 3.73 1.40 - 6.00 x10'3/uL 2019 7:11 AM T [facility] IMMATURE GRANS % 0.6(H) 0.0 - 0.5 % 2019 7:11 AM CDT [facility] ABS. LYMPHOCYTES 0.57(L) 0.80 - 4.70 x10'3/uL 2019 7:11 AM T [facility] 2019 6:29 AM CDT us Leia Davenport MD LABORATORY Final Result [facility] [address] [place] [address], * (ABNORMAL) THYROID STIM HORMONE, TSH (2019 6:29 AM CDT) TSH 4.638(H) 0.358 - 3.74 uIU/ML 2019 7:38 AM CDT [facility] Comment: HIGH DOSES OF BIOTIN MAY INTERFERE WITH THIS TEST RESULT. CORRELATION TO CLINICAL HISTORY AND PRESENTATION RECOMMENDED. 2019 6:29 AM CDT Leia Davenport MD LABORATORY Final Result Performing Organization Address [facility] Co de Phone Number [facility] [address] [place] [address], [place] [phone] * TROPONIN, QUANT (2019 6:29 AM CDT) TROPONIN I <0.017 0.000 - 0.056 ng/mL. 2019 7:38 AM CDT [facility] Comment: NORMAL: LESS THAN OR EQUAL TO 0.056 NG/ML INDETERMINATE ZONE: 0.056 TO 0.599 NG/ML CONDITIONS RESULTING IN MYOCARDIAL CELL DAMAGE CAN POTENTIALLY INCREASE LEVELS ABOVE THE EXPECTED RANGE. HIGH DOSES OF BIOTIN MAY INTERFERE WITH THIS TEST RESULT. CORRELATION TO CLINICAL HISTORY AND PRESENTATION RECOMMENDED. 2019 6:29 AM CDT Leia Davenport MD LABORATORY Final Result Performing Organization Address City/[facility]/ZIP Co de Phone Number [facility] [address] [place] [address], [place] [phone] * TROPONIN, QUANT (2019 12:41 AM CDT) TROPONIN I <0.017 0.000 - 0.056 ng/mL. 2019 2:26 AM CDT [facility] Comment: NORMAL: LESS THAN OR EQUAL TO 0.056 NG/ML INDETERMINATE ZONE: 0.056 TO 0.599 NG/ML CONDITIONS RESULTING IN MYOCARDIAL CELL DAMAGE CAN POTENTIALLY INCREASE LEVELS ABOVE THE EXPECTED RANGE. HIGH DOSES OF BIOTIN MAY INTERFERE WITH THIS TEST RESULT. CORRELATION TO CLINICAL HISTORY AND PRESENTATION RECOMMENDED. 2019 12:4 1 AM CDT us Leia Davenport MD LABORATORY Final Result [facility] [address] [place] [address], [place] [phone] * (ABNORMAL) URINALYSIS, AUTO, COMPLETE (07/30/2019 11:07 PM CDT) COLOR (U) YELLOW 07/30/2019 11:21 PM CDT [facility] TRANSPARENCY HAZY 07/30/2019 11:21 PM CDT [facility] SPECIFIC GRAVITY (U) 1.015 1.000 - 1.030 07/30/2019 11:21 PM CDT [facility] U PH 5.5 5.0 - 9.0 07/30/2019 11:21 PM T [facility] LEUKOCYTES (U) 1+(A) NEGATIVE 07/30/2019 11:21 PM CDT [facility] NITRITES NEGATIVE NEGATIVE 07/30/2019 11:21 PM CDT [facility] PROTEIN (U) NEGATIVE NEGATIVE 07/30/2019 11:21 PM CDT [facility] URINE GLUCOSE NEGATIVE NEGATIVE 07/30/2019 11:21 PM CDT [facility] KETONES MG/DL (U) TRACE(A) NEGATIVE 07/30/2019 11:21 PM T [facility] BILIRUBIN (U) NEGATIVE NEGATIVE 07/30/2019 11:21 PM CDT [facility] BLOOD (U) NEGATIVE NEGATIVE 07/30/2019 11:21 PM CDT [facility] WBC/HPF 5-10 0 - 5 /HPF 07/30/2019 11:21 PM CDT [facility] RBC/HPF 0-5 0 - 5 /HPF 07/30/2019 11:21 PM CDT [facility] EPI/HPF FEW /HPF 07/30/2019 11:21 PM CDT [facility] OTHER CASTS (U) HYALINE /LPF 0 11:21 PM CDT [facility] Comment:FEW BACTERIA (U) FEW /HPF 07/30/2019 11:21 PM CDT [facility] URINE SPECIMEN OBTAINED BY CLEAN CATCH PROCEDURE / Unknown 07/30/2019 11:07 PM CDT Erich Connor MD URINE ORDERABLES Final Result [facility] [address] [place] [address], [place] [phone] * XR CHEST PA+LAT (07/30/2019 10:57 PM CDT) Anatomical Region Laterality Modality Chest Radiographic Lacy ging 2019 8:50 AM CDT Impressions 2019 8:53 AM CDT IMPRESSION: No evidence of acute cardiopulmonary disease. Mildly atherosclerotic aorta without cardiomegaly. Lungs are clear. No pneumothorax or pleural effusion. Chronic changes within the shoulders and spine including a compression deformity noted L1 vertebral body, also demonstrated on the 07/03/2019 CT abdomen and pelvis. Concur with preliminary report rendered by Andrew Wiseman M.D. per report findings discussed with Dr. Connor at 2:12 AM ET Interpreted By: Andrew Massey, 2019 8:50 AM Narrative 2019 8:53 AM CDT IMAGING STUDIES: ??XR CHEST PA+LAT ? EXAM DATE/TIME: ??07/30/2019 10:23 PM INDICATION: dizziness ?? . COMPARISON: ??07/03/2019. TECHNIQUE: 2 views. Procedure Note Andrew Massey MD - 2019 IMAGING STUDIES: XR CHEST PA+LAT EXAM DATE/TIME: 07/30/2019 10:23 PM INDICATION: dizziness . COMPARISON: 07/03/2019. TECHNIQUE: 2 views. IMPRESSION: No evidence of acute cardiopulmonary disease. Mildly atherosclerotic aorta without cardiomegaly. Lungs are clear. No pneumothorax or pleural effusion. Chronic changes within the shoulders and spine including a compression deformity noted L1 vertebral body, also demonstrated on the 07/03/2019 CT abdomen and pelvis. Concur with preliminary report rendered by Andrew Wiseman M.D. perreport findings discussed with Dr. Connor at 2:12 AM ET Interpreted By: Andrew Massey, 2019 8:50 AM Leia Davenport MD GENERAL IMAGING Final Result * CT PEL WO CON (07/30/2019 10:57 PM CDT) Anatomical Region Laterality Modality Pelvis Computed Tomogra phy 2019 10:2 6 AM CDT Impressions 2019 10:29 AM CDT IMPRESSION: ?? Visualized portion of the bony pelvis and proximal femurs appear intact. Mild degenerative changes present within the hips. Degenerative changes noted within the pubic symphysis, SI joints and lower lumbar spine. Slight anterolisthesis L4-L5. Probable subcutaneous hematoma right gluteal soft tissues measuring approximately 5 cm. Hysterectomy. Diverticulosis. Atherectomy aorta. Concur with preliminary report rendered by Andrew Wiseman M.D. per report findings discussed with Dr. Connor at 2:12 AM ET Interpreted By: Andrew Massey, 2019 10:26 AM Narrative 2019 10:29 AM CDT IMAGING STUDIES: CT PEL WO CON ? DATE: 07/30/2019 10:57 PM INDICATION: Pelvis-perineal trauma, blunt (straddle injury) ?? COMPARISON: No comparisons. CONTRAST: No intravenous contrast. Radiation dose reduction technique was utilized. Procedure Note Andrew Massey MD - 2019 IMAGING STUDIES: CT PEL WO CON DATE: 07/30/2019 10:57 PM INDICATION: Pelvis-perineal trauma, blunt (straddle injury) COMPARISON: No comparisons. CONTRAST: No intravenous contrast. Radiation dose reduction technique was utilized. IMPRESSION: Visualized portion of the bony pelvis and proximal femurs appear intact. Mild degenerative changes present within the hips. Degenerative changes noted within the pubic symphysis, SI joints and lower lumbar spine.Slight anterolisthesis L4-L5. Probable subcutaneous hematoma right gluteal soft tissues measuring approximately 5 cm. Hysterectomy. Diverticulosis. Atherectomy aorta. Concur with preliminary report rendered by Andrew Wiseman M.D. perreport findings discussed with Dr. Connor at 2:12 AM ET Interpreted By: Andrew Massey, 2019 10:26 AM Erich Connor MD CT Final Result * CT CERV SPINE WO CON (07/30/2019 10:57 PM CDT) Anatomical Region Laterality Modality Spine Computed Tomogra phy 2019 9:06 AM CDT Impressions 2019 9:08 AM CDT IMPRESSION: C1 through T1 are intact. Normal vertebral body heights. Reversal of cervical lordosis. Slight anterolisthesis C4-C5. Multilevel degenerative disc disease with loss of disc height, endplate and facet hypertrophy. Multilevel foraminal narrowing. Chronic changes involving the C1 to joint, anteriorly. Mild carotid bifurcation vascular calcifications.. Visualized portions of lung apices, mastoid air cells and middle ears are aerated. Concur with preliminary report rendered by Andrew Wiseman M.D. per report findings discussed with Dr. Connor at 2:12 AM ET Interpreted By: Andrew Massey, 2019 9:06 AM Narrative 2019 9:08 AM CDT IMAGING STUDIES: ??CT CERV SPINE WO CON ? DATE: ??07/30/2019 10:57 PM INDICATION: ??Spine fracture, traumatic, cervical ?? . COMPARISON: No comparison. Radiation dose reduction technique was utilized. Procedure Note Andrew Massey MD - 2019 IMAGING STUDIES: CT CERV SPINE WO CON DATE: 07/30/2019 10:57 PM INDICATION: Spine fracture, traumatic, cervical . COMPARISON: No comparison. Radiation dose reduction technique was utilized. IMPRESSION: C1 through T1 are intact. Normal vertebral body heights. Reversal of cervical lordosis. Slight anterolisthesis C4-C5. Multilevel degenerative disc disease with loss of disc height, endplateand facet hypertrophy. Multilevel foraminal narrowing. Chronic changes involving the C1 to joint, anteriorly. Mild carotid bifurcation vascular calcifications.. Visualized portions of lung apices, mastoid air cells and middle earsare aerated. Concur with preliminary report rendered by Andrew Wiseman M.D. perreport findings discussed with Dr. Connor at 2:12 AM ET Interpreted By: Andrew Massey, 2019 9:06 AM Erich Connor MD CT Final Result * CT HEAD WO CON (07/30/2019 10:57 PM CDT) Anatomical Region Laterality Modality Head Computed Tomogra phy 2019 8:53 AM CDT Impressions 2019 8:57 AM CDT IMPRESSION: No evidence of acute hemorrhage, mass effect or hydrocephalus. 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 Intracranial vascular calcifications. Unerupted right maxillary molar partially included. The visualized portions of the mastoid air cells and middle ears are clear. Concur with preliminary report rendered by Andrew Wiseman M.D. per report findings discussed with Dr. Connor at 2:12 AM ET Interpreted By: Andrew Massey, 2019 8:53 AM Narrative 2019 8:57 AM CDT IMAGING STUDIES: CT HEAD WO CON ? DATE: 07/30/2019 10:57 PM INDICATION: Headache, post trauma ?? COMPARISON: 04/26/2019 CONTRAST DOSE: No intravenous contrast. Radiation dose reduction technique was utilized. Procedure Note Andrew Massey MD - 2019 IMAGING STUDIES: CT HEAD WO CON DATE: 07/30/2019 10:57 PM INDICATION: Headache, post trauma COMPARISON: 04/26/2019 CONTRAST DOSE: No intravenous contrast. Radiation dose reduction technique was utilized. IMPRESSION: No evidence of acute hemorrhage, mass effect or hydrocephalus. 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 Intracranial vascular calcifications. Unerupted right maxillary molar partially included. The visualized portions of the mastoid air cells and middle ears areclear. Concur with preliminary report rendered by Andrew Wiseman M.D. perreport findings discussed with Dr. Connor at 2:12 AM ET Interpreted By: Andrew Massey, 2019 8:53 AM us Erich Connor MD CT Final Result * EKG Reading (07/30/2019 10:20 PM CDT) Narrative Erich Connor MD - 07/30/2019 10:20 PM CDT Erich Connor MD ? 08/04/2019 ??7:50 PM EKG Reading Date/Time: 07/30/2019 10:30 PM Performed by: Erich Connor MD Authorized by: Erich Connor MD Interpreted by ED physician Comparison: compared with previous ECG from 07/15/2019 Comparison to previous ECG: No change from previous Rhythm: sinus rhythm Ectopy: PVCs Rate: normal BPM: 68 Conduction: right bundle branch block ST Segments: ST segments normal T Waves: T waves normal Other: no other findings Clinical impression: abnormal ECG Comments: PVCs noted on ECG by EMS, occ PVC, otherwise morphologically no change from previous. Erich Connor MD [facility] Final Result * LACTIC ACID - SINGLE (07/30/2019 10:17 PM CDT) LACTIC ACID VENOUS 0.8 0.4 - 2.0 MMOL/L 07/30/2019 10:58 PM CDT [facility] 07/30/2019 10:1 7 PM CDT Erich Connor MD LABORATORY Final Result [facility] [address] [place] [address], [place] [phone] * (ABNORMAL) PROTIME/INR, VENOUS (07/30/2019 10:16 PM CDT) PROTIME 12.5(H) 9.1 - 12.4 SEC 07/30/2019 10:46 PM CDT [facility] INR 1.1 07/30/2019 10:46 PM CDT [facility] Comment: Recommend INR ranges for Oral Anticoagulant Therapy: Mechanical Cardiac Values 2.5-3.5 All others indication 2.0-3.0 07/30/2019 10:1 6 PM CDT Erich Connor MD LABORATORY Final Result [facility] [address] [place] [address], [place] [phone] * TROPONIN, QUANT (07/30/2019 10:16 PM CDT) TROPONIN I <0.017 0.000 - 0.056 ng/mL. 07/30/2019 10:58 PM CDT [facility] Comment: NORMAL: LESS THAN OR EQUAL TO 0.056 NG/ML INDETERMINATE ZONE: 0.056 TO 0.599 NG/ML CONDITIONS RESULTING IN MYOCARDIAL CELL DAMAGE CAN POTENTIALLY INCREASE LEVELS ABOVE THE EXPECTED RANGE. HIGH DOSES OF BIOTIN MAY INTERFERE WITH THIS TEST RESULT. CORRELATION TO CLINICAL HISTORY AND PRESENTATION RECOMMENDED. 07/30/2019 10:1 6 PM CDT Erich Connor MD LABORATORY Final Result [facility] [address] [place] [address], * (ABNORMAL) COMPREHENSIVE METABOLIC PANEL (07/30/2019 10:16 PM CDT) GLUCOSE 154(H) 70 - 99 MG/DL 07/30/2019 10:57 PM CDT [facility] BUN 31(H) 7 - 18 MG/DL 07/30/2019 10:57 PM CDT [facility] CREATININE S/P/B 1.43(H) 0.55 - 1.02 MG/DL 07/30/2019 10:57 PM CDT [facility] SODIUM S/P/B 124(L) 136 - 145 MMOL/L 07/30/2019 10:57 PM CDT [facility] POTASSIUM S/P/B 2.8(LL) 3.5 - 5.1 MMOL/L 07/30/2019 10:57 PM CDT [facility] Comment:AF CALLED CRITICAL R ESULTS AT 30Jul2019 TO AND READ BACK BY JOSEP DUGAN CHLORIDE S/P/B 86(L) 100 - 108 MMOL/L 07/30/2019 10:57 PM [facility] CO2 29.2 21 - 32 MMOL/L 07/30/2019 10:57 PM [facility] CALCIUM S/P/B 10.2(H) 8.5 - 10.1 MG/DL 07/30/2019 10:57 PM [facility] BILIRUBIN TOTAL S/P/B 0.6 0.2 - 1.2 MG/DL 07/30/2019 10:57 PM [facility] TOTAL PROTEIN S/P/B 6.9 6.4 - 8.2 G/DL 07/30/2019 10:57 PM [facility] ALBUMIN S/P/B 3.8 3.4 - 5.0 G/DL 07/30/2019 10:57 PM [facility] AST 42(H) 15 - 37 U/L 07/30/2019 10:57 PM [facility] ALT 68(H) 14 - 55 U/L 07/30/2019 10:57 PM [facility] ALKALINE PHOSPHATASE S/P/B 87 50 - 136 U/L 07/30/2019 10:57 PM [facility] ANION GAP 8.8 5 - 15 MMOL/L 07/30/2019 10:57 PM [facility] BUN CREATININE RATIO 21.7 6 - 26 07/30/2019 10:57 PM [facility] A/G RATIO 1.2 1.0 - 2.0 RATIO 07/30/2019 10:57 PM [facility] EGFR NON-AFR. AMER. 34(L) >90 ML/MIN/1.7 3 M2 07/30/2019 10:57 PM [facility] EGFR AFR. AMER. 39(L) >90 ML/MIN/1.7 3 M2 07/30/2019 10:57 PM CDT [facility] Comment: NOTE: eGFR is not calculated for patients <18 years of age. This is an estimated GFR (CKD EPI) and should not be used for calculating drug doses. 07/30/2019 10:1 6 PM CDT Erich Connor MD LABORATORY Final Result [facility] [address] [place] [address], [place] [phone] * (ABNORMAL) CBC W/DIFF AUTOMATED (07/30/2019 10:16 PM CDT) WBC 8.1 4.4 - 11.0 x10'3/uL 07/30/2019 10:54 PM CDT [facility] RBC 4.48(L) 4.50 - 5.10 x10'6/uL 07/30/2019 10:54 PM CDT [facility] HGB 12.8 12.3 - 15.3 G/DL 07/30/2019 10:54 PM CDT [facility] HCT 36.8 35.9 - 44.6 % 07/30/2019 10:54 PM CDT [facility] MCV 82.1 80.0 - 96.0 FL 07/30/2019 10:54 PM CDT [facility] MCH 28.6 25.3 - 30.9 PG 07/30/2019 10:54 PM CDT [facility] MCHC 34.8(H) 31.0 - 34.1 G/DL 07/30/2019 10:54 PM CDT [facility] RDW 13.0 12.4 - 15.1 % 07/30/2019 10:54 PM CDT [facility] PLT 194 151 - 353 x10'3/uL 07/30/2019 10:54 PM CDT [facility] MPV 10.5 9.6 - 12.0 FL 07/30/2019 10:54 PM CDT [facility] NEUTROPHILS % 84.2(H) 42.1 - 71.9 % 07/30/2019 10:54 PM CDT [facility] LYMPHOCYTES % 7.0(L) 15.8 - 45.0 % 07/30/2019 10:54 PM CDT [facility] BASOPHILS 0.2 0.0 - 1.3 % 07/30/2019 10:54 PM CDT [facility] EOSINOPHILS 0.4 0.0 - 5.6 % 07/30/2019 10:54 PM CDT [facility] MONOCYTES % 8.0 5.7 - 12.5 % 07/30/2019 10:54 PM T [facility] IMMATURE GRANS % 0.2 0.0 - 0.5 % 07/30/2019 10:54 PM CDT [facility] ABS. NEUTROPHILS TOTAL 6.82(H) 1.40 - 6.00 x10'3/uL 07/30/2019 10:54 PM T [facility] ABS. LYMPHOCYTES 0.57(L) 0.80 - 4.70 x10'3/uL 07/30/2019 10:54 PM T [facility] PLT MORPH. NORMAL 07/30/2019 10:54 PM CDT [facility] RBC MORPHOLOGY NORMAL 07/30/2019 10:54 PM T [facility] WBC MORPHOLOGY NORMAL 07/30/2019 10:54 PM T [facility] 07/30/2019 10:1 6 PM CDT us Erich Connor MD LABORATORY Final Result [facility] [address] [place] [address], * ECG 12 lead (07/30/2019 10:07 PM CDT) 07/30/2019 10:0 7 PM CDT Narrative [facility] - 2019 7:10 AM CDT ?[facility] ? Test Date: ?2019-07-30 Pat Name: ? AVIVA CH ?Department: ? Room: ? 123 Gender: ? Female ? Clinical Trial Assistant: ?? : ?[id number] ? Requested By: ERICH CONNOR Order Number: [id number] ? Reading : ?? Scott Cabello ? Measurements Intervals ?[place] ? Rate: ? 68 ? P: ?-74 [place]: ? 212 ?QRS: ?44 QRSD: ? 158 ?T: ?-14 QT: ? 434 ? QTc: ?464 ? Interpretive Statements SINUS RHYTHM WITH FIRST DEGREE AV BLOCK WITH OCCASIONAL SUPRAVENTRICULAR PREMATURE COMPLEXES RIGHT BUNDLE BRANCH BLOCK ??[120+ ms QRS DURATION, UPRIGHT V1, 40+ ms S IN I/aVL/V4/V5/V6] Compared to ECG 07/15/2019 13:37:26 Sinus bradycardia no longer present Sinus arrhythmia no longer present Procedure Note Scott Cabello MD - 2019 [facility] Test Date: 2019-07-30 Pat Name: AVIVA CH Department: Room: 123 Gender: Female Clinical Trial Assistant: : [id number] Requested By: ERICH CONNOR Order Number: [id number] Spencer MD: Scott Cabello Measurements Intervals [place] Rate: 68 P: -74 [place]: 212 QRS: 44 QRSD: 158 T: -14 QT: 434 QTc: 464 Interpretive Statements SINUS RHYTHM WITH FIRST DEGREE AV BLOCK WITH OCCASIONAL SUPRAVENTRICULAR PREMATURE COMPLEXES RIGHT BUNDLE BRANCH BLOCK [120+ ms QRS DURATION, UPRIGHT V1, 40+ ms S IN I/aVL/V4/V5/V6] Compared to ECG 07/15/2019 13:37:26 Sinus bradycardia no longer present Sinus arrhythmia no longer present us Erich Connor MD ECG ORDERABLES Final Result [facility] documented in this encounter Visit Diagnoses Diagnosis CLAUDIO (acute kidney injury) (CMS/HCC)- Primary Acute kidney failure, unspecified Hypokalemia Hypopotassemia Hyponatremia Hyposmolality and/or hyponatremia Acute kidney injury (CMS/HCC) Acute kidney failure, unspecified Dehydration Dizziness Dizziness and giddiness Closed head injury Head injury, unspecified Contusion of hip Scalp hematoma, initial encounter Fall at home, initial encounter documented in this encounter Admitting Diagnoses Diagnosis Dehydration documented in this encounter Administered Medications Inactive Administered Medications - up to 3 most recent administrations Medication Order MAR Action Action Date Dose Rate Site acetaminophen (TYLENOL) tablet 650 mg 650 mg, Oral, Every 4 hours PRN, Fever, Discomfort, Starting on Wed07/31/19 at 0040, Until Wed08/01/19 at 1730, Maximum dose of acetaminophen is 4000 mg from all sources in 24 hours. Given 08/01/2019 10:28 AM CDT 650 mg amLODIPine (NORVASC) tablet 5 mg 5 mg, Oral, Daily, First dose on Wed08/01/19 at 1015, Until Discontinued Given 08/01/2019 10:27 AM CDT 5 mg aspirin EC (ECOTRIN) tablet 81 mg 81 mg, Oral, Daily, First dose on Wed07/31/19 at 0900, Until Discontinued, Do not break, chew, or crush. Given 08/01/2019 9:06 AM CDT 81 mg Given 2019 9:35 AM CDT 81 mg docusate sodium (COLACE) capsule 100 mg 100 mg, Oral, 2 times daily, First dose on Wed07/31/19 at 0045, Until Discontinued Given 08/01/2019 9:05 AM CDT 100 mg Given 2019 8:42 PM CDT 100 mg Given 2019 9:35 AM CDT 100 mg donepezil (ARICEPT) tablet 10 mg 10 mg, Oral, Every morning, First dose on Wed07/31/19 at 0700, Until Discontinued Given 08/01/2019 6:06 AM CDT 10 mg Given 2019 6:46 AM CDT 10 mg furosemide (LASIX) tablet 20 mg 20 mg, Oral, Daily, First dose on Wed08/01/19 at 1015, Until Discontinued Given 08/01/2019 10:28 AM CDT 20 mg heparin (porcine) injection 5,000 Units 5,000 Units, Subcutaneous, 3 times daily, First dose on Wed07/31/19 at 0900, Until Discontinued Given 08/01/2019 5:00 PM CDT 5,000 Units Right Lower Abdomen Given 08/01/2019 9:05 AM CDT 5,000 Units R ight Lower Abdomen Given 2019 8:42 PM CDT 5,000 Units L eft Lower Abdomen insulin lispro (HUMALOG) injection 0-14 Units 0-14 Units, Subcutaneous, 3 times daily before meals, First dose on Wed07/31/19 at 1100, Until Discontinued, Blood Glucose (SENSITIVE Dosing): [Less than 70:? Initiate Hypoglycemia Standing Orders] [71-140: 0 units] [141-180: 2 units] [181-220: 4 units] [221-260: 6 units] [261-300: 8 units] [301-350: 10 units] [351-400: 12 units] [Greater than 400: 14 units and Call Physician] insulin lispro (HUMALOG) injection 0-7 Units 0-7 Units, Subcutaneous, Nightly at bedtime, First dose on Wed07/31/19 at 2100, Until Discontinued, Blood Glucose (SENSITIVE Dosing): [Less than 70:? Initiate Hypoglycemia Standing Orders] [71-180: ? 0 units] [181-220:? 2 units] [221-260:? 3 units] [261-300:? 4 units] [301-350:? 5 units] [351-400:? 6 units] [Greater than 400:? 7 units and Call Physician] lisinopril (PRINIVIL) tablet 5 mg 5 mg, Oral, Daily, First dose on Wed08/01/19 at 1015, Until Discontinued Given 08/01/2019 10:28 AM CDT 5 mg magnesium sulfate IVPB 2 g 2 g, Intravenous, at 25 mL/hr, Once, 1 dose, On Wed07/31/19 at 0100 New Bag 2019 1:50 AM CDT 2 g 25 mL/hr potassium chloride 10 mEq in SW 100 mL IVPB 10 mEq, Intravenous, Administer over 60 Minutes, Every hour scheduled, 4 doses, First dose on Wed07/31/19 at 0100, Last dose on Wed07/31/19 at 0400, MAX rate in peripheral line of 10 mEq per hour. New Bag 2019 5:49 AM CDT 10 mEq 100 mL/hr New Bag 2019 4:30 AM CDT 10 mEq 100 mL/hr New Bag 2019 3:03 AM CDT 10 mEq 100 mL/hr potassium chloride 20 MEQ/15ML (10%) solution 40 mEq 40 mEq, Oral, Once, 1 dose, On Wed07/30/19 at 2330, Dilute with 240 mL water or juice. Given 07/30/2019 11:34 PM CDT 40 mEq potassium chloride 20 MEQ/15ML (10%) solution 40 mEq 40 mEq, Oral, Once, 1 dose, On Wed07/31/19 at 0230, Dilute with 240 mL water or juice. Given 2019 2:17 AM C DT 40 mEq potassium chloride CR (KLOR-CON M) tablet 10 mEq 10 mEq, Oral, Daily, First dose on Wed08/01/19 at 1015, Until Discontinued, Do not chew, crush, or suck on tablet. May break in half. May dissolve whole tablet in 120 mL of water and drink immediately. Given 08/01/2019 10:27 AM CDT 10 mEq pravastatin (PRAVACHOL) tablet 40 mg 40 mg, Oral, Nightly at bedtime, First dose on Wed07/31/19 at 0045, Until Discontinued, at bedtime. Given 2019 8:42 PM CDT 40 mg sertraline (ZOLOFT) tablet 100 mg 100 mg, Oral, Every morning, First dose on Wed07/31/19 at 0700, Until Discontinued Given 08/01/2019 6:06 AM CDT 100 mg Given 2019 6:46 AM CDT 100 mg sodium chloride 0.9% infusion at 100 mL/hr, Intravenous, Continuous, Starting on Wed07/30/19 at 2330, Until Wed07/31/19 at 0059 Rate/Dose Change 2019 2:44 AM CDT 75 mL/hr New Bag 07/30/2019 11:35 PM CDT 100 mL/hr sodium chloride 0.9% infusion at 75 mL/hr, Intravenous, Continuous, Starting on Wed07/31/19 at 1200, Until Wed08/01/19 at 1730 New Bag 08/01/2019 5:00 PM CDT 75 mL/hr New Bag 08/01/2019 3:38 AM CDT 75 mL/hr New Bag 2019 11:39 AM CDT 75 mL/hr vitamin D3 (cholecalciferol) tablet 2,000 Units 2,000 Units, Oral, Daily, First dose on Wed07/31/19 at 0900, Until Discontinued Given 08/01/2019 9:05 AM C DT 2,000 Units Given 2019 9:35 AM CDT 2,000 Units documented in this encounter Active and Recently Administered Medications Times are shown in CDT. Scheduled Medication Order 07/30/2019 2019 08/01/2019 amLODIPine (NORVASC) tablet 5 mg 5 mg, Oral, Daily, First dose on Wed08/01/19 at 1015, Until Discontinued 1027 (Given - Provider: Denise Mcmahon RN) aspirin EC (ECOTRIN) tablet 81 mg 81 mg, Oral, Daily, First dose on Wed07/31/19 at 0900, Until Discontinued, Do not break, chew, or crush. 0935 (Given - Provider: Claribel Diaz RN) 0906 (Given - Provider: Denise Mcmahon, KAILEE) docusate sodium (COLACE) capsule 100 mg 100 mg, Oral, 2 times daily, First dose on Wed07/31/19 at 0045, Until Discontinued 0139 (Not Given - Provider: Dagmar Gonzalez RN - Reason: Patient/family declined)0935 (Given - Provider: Claribel Diaz RN)2041 (Given - Provider: Sahara Leung LPN) 0905 (Given - Provider: eDnise Mcmahon RN) donepezil (ARICEPT) tablet 10 mg 10 mg, Oral, Every morning, First dose on Wed07/31/19 at 0700, Until Discontinued 0646 (Given - Provider: Dagmar Gonzalez RN) 0606 (Given - Provider: Martine Zapata RN) furosemide (LASIX) tablet 20 mg 20 mg, Oral, Daily, First dose on Wed08/01/19 at 1015, Until Discontinued 1028 (Given - Provider: Denise Mcmahon RN) heparin (porcine) injection 5,000 Units(Linked Group 1) 5,000 Units, Subcutaneous, 3 times daily, First dose on Wed07/31/19 at 0900, Until Discontinued 0935 (Given - Provider: Claribel Diaz RN)1652 (Given - Provider: Claribel Diaz RN)2042 (Given - Provider: Sahara Leung LPN) 09 (Given - Provider: Denise Mcmahon RN)1700 (Given - Provider: Denise Mcmahon RN) insulin lispro (HUMALOG) injection 0-14 Units(Linked Group 2) 0-14 Units, Subcutaneous, 3 times daily before meals, First dose on Wed07/31/19 at 1100, Until Discontinued, Blood Glucose (SENSITIVE Dosing): [Less than 70:? Initiate Hypoglycemia Standing Orders] [71-140: 0 units] [141-180: 2 units] [181-220: 4 units] [221-260: 6 units] [261-300: 8 units] [301-350: 10 units] [351-400: 12 units] [Greater than 400: 14 units and Call Physician] 1251 (Not Given - Provider: Claribel Diaz RN - Reason: Order parameters not met)1710 (Not Given - Provider: Claribel Diaz RN - Reason: Order parameters not met) 0751 (Not Given - Provider: Denise Mcmahon RN - Reason: Order parameters not met)1117 (Not Given - Provider: Denise Mcmahon RN - Reason: Order parameters not met - Comment: glucose 88)1640 (Not Given - Provider: Denise Mcmahon RN - Reason: Order parameters not met) insulin lispro (HUMALOG) injection 0-7 Units(Linked Group 2) 0-7 Units, Subcutaneous, Nightly at bedtime, First dose on Wed07/31/19 at 2100, Until Discontinued, Blood Glucose (SENSITIVE Dosing): [Less than 70:? Initiate Hypoglycemia Standing Orders] [71-180: ? 0 units] [181-220:? 2 units] [221-260:? 3 units] [261-300:? 4 units] [301-350:? 5 units] [351-400:? 6 units] [Greater than 400:? 7 units and Call Physician] 2046 (Not Given - Provider: Sahara Leung LPN - Reason: Order parameters not met - Comment: BS 119) levothyroxine (SYNTHROID) tablet 50 mcg 50 mcg, Oral, User specified (Once per day on Sun Sat), First dose on Wed08/05/19 at 0600, Until Discontinued, Take 1 tablet (50mcg total) by mouth in the morning on Wednesday and Wednesday. Avoid iron, calcium, and antacids within 4 hours of administration. lisinopril (PRINIVIL) tablet 5 mg 5 mg, Oral, Daily, First dose on Wed08/01/19 at 1015, Until Discontinued 1028 (Given - Provider: Denise Mcmahon RN) magnesium sulfate IVPB 2 g (COMPLETED) 2 g, Intravenous, at 25 mL/hr, Once, 1 dose, On Wed07/31/19 at 0100 0150 (New Bag - Provider: Wendy Rivera RN)0428 (Infusion Stop Time - Provider: Dagmar Gonzalez RN) potassium chloride 10 mEq in SW 100 mL IVPB (COMPLETED) 10 mEq, Intravenous, Administer over 60 Minutes, Every hour scheduled, 4 doses, First dose on Wed07/31/19 at 0100, Last dose on Wed07/31/19 at 0400, MAX rate in peripheral line of 10 mEq per hour. 0133 (New Bag - Provider: Wendy Rivera RN)030 (Infusion Stop Time - Provider: Dagmar Gonzalez RN)0303 (New Bag - Provider: Dagmar Gonzalez RN)0425 (Infusion Stop Time - Provider: Dagmar Gonzalez RN)0430 (New Bag - Provider: Dagmar Gonzalez RN)0545 (Infusion Stop Time - Provider: Claribel Diaz RN)0549 (New Bag - Provider: Dagmar Gonzalez RN)0700 (Infusion Stop Time - Provider: Claribel Diaz RN) potassium chloride 20 MEQ/15ML (10%) solution 40 mEq (COMPLETED) 40 mEq, Oral, Once, 1 dose, On Wed07/30/19 at 2330, Dilute with 240 mL water or juice. 2334 (Given - Provider: Josep Carty RN) potassium chloride 20 MEQ/15ML (10%) solution 40 mEq (COMPLETED) 40 mEq, Oral, Once, 1 dose, On Wed07/31/19 at 0230, Dilute with 240 mL water or juice. 0217 (Given - Provider: Dagmar Gonzalez RN) potassium chloride CR (KLOR-CON M) tablet 10 mEq 10 mEq, Oral, Daily, First dose on Wed08/01/19 at 1015, Until Discontinued, Do not chew, crush, or suck on tablet. May break in half. May dissolve whole tablet in 120 mL of water and drink immediately. 1027 (Given - Provider: Denise Mcmahon RN) pravastatin (PRAVACHOL) tablet 40 mg 40 mg, Oral, Nightly at bedtime, First dose on Wed07/31/19 at 0045, Until Discontinued, at bedtime. 0208 (Not Given - Provider: Dagmar Gonzalez RN - Reason: Patient/family declined)2041 (Given - Provider: Sahara Leung LPN) sertraline (ZOLOFT) tablet 100 mg 100 mg, Oral, Every morning, First dose on Wed07/31/19 at 0700, Until Discontinued 0646 (Given - Provider: Dagmar Gonzalez RN) 06 (Given - Provider: Martine Zapata RN) vitamin D3 (cholecalciferol) tablet 2,000 Units 2,000 Units, Oral, Daily, First dose on Wed07/31/19 at 0900, Until Discontinued 0935 (Given - Provider: Claribel Diaz RN) 09 (Given - Provider: Denise Mcmahon RN) Continuous Medication Order 07/30/2019 2019 08/01/2019 sodium chloride 0.9% infusion (CANCELED) at 100 mL/hr, Intravenous, Continuous, Starting on Wed07/30/19 at 2330, Until Wed07/31/19 at 0059 2335 (New Bag - Provider: Josep Carty RN) 0244 (Rate/Dose Change - Provider: Wendy Rivera RN - Comment: came to floor with bag)1138 (Infusion Stop Time - Provider: Claribel Diaz RN) sodium chloride 0.9% infusion at 75 mL/hr, Intravenous, Continuous, Starting on Wed07/31/19 at 1200, Until Wed08/01/19 at 1730 1139 (New Bag - Provider: Claribel Diaz RN) 0338 (New Bag - Provider: Sahara Leung LPN)1700 (New Bag - Provider: Denise Mcmahon RN) PRN Medication Order 07/30/2019 2019 08/01/2019 acetaminophen (TYLENOL) tablet 650 mg 650 mg, Oral, Every 4 hours PRN, Fever, Discomfort, Starting on Wed07/31/19 at 0040, Until Wed08/01/19 at 1730, Maximum dose of acetaminophen is 4000 mg from all sources in 24 hours. 1028 (Given - Provid er: Denise Mcmahon RN) ondansetron (ZOFRAN) injection 4 mg 4 mg, Intravenous, Every 8 hours PRN, Nausea, Vomiting, Starting on Wed07/31/19 at 0040, Until Wed08/01/19 at 1730, IV push over 2-5 minutes. polyethylene glycol (GLYCOLAX) packet 17 g 17 g, Oral, Daily as needed, Constipation, Starting on Wed07/31/19 at 0040, Until Wed08/01/19 at 1730, If both senna and polyethylene glycol are ordered, use 1st; if no response by next dosing interval, go to next option. traZODone (DESYREL) tablet 50 mg 50 mg, Oral, Nightly PRN, Sleep, Starting on Wed07/31/19 at 0040, Until Wed08/01/19 at 1730 Linked Groups Order Group 1: heparin (porcine) injection 5,000 UnitsJump to med 5,000 Units, Subcutaneous, 3 times daily, First dose on Wed07/31/19 at 0900, Until Discontinued And Moderate Risk for VTE (COMPLETED) Group 2: insulin lispro (HUMALOG) injection 0-14 UnitsJump to med 0-14 Units, Subcutaneous, 3 times daily before meals, First dose on Wed07/31/19 at 1100, Until Discontinued, Blood Glucose (SENSITIVE Dosing): [Less than 70:? Initiate Hypoglycemia Standing Orders] [71-140: 0 units] [141-180: 2 units] [181-220: 4 units] [221-260: 6 units] [261-300: 8 units] [301-350: 10 units] [351-400: 12 units] [Greater than 400: 14 units and Call Physician] And insulin lispro (HUMALOG) injection 0-7 UnitsJump to med 0-7 Units, Subcutaneous, Nightly at bedtime, First dose on Wed07/31/19 at 2100, Until Discontinued, Blood Glucose (SENSITIVE Dosing): [Less than 70:? Initiate Hypoglycemia Standing Orders] [71-180: ? 0 units] [181-220:? 2 units] [221-260:? 3 units] [261-300:? 4 units] [301-350:? 5 units] [351- 400:? 6 units] [Greater than 400:? 7 units and Call Physician] documented in this encounter Care Teams Banking Assistant Relationship Specialty Start Date End Date Elaina Jade MD [facility] [address] PCP - General INTERNAL MEDICINE 08/23/18 03/03/23 Josep Mckeon MD [address] [facility] 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
--- OUTSIDE RECORDS SUMMARY | 2024-04-05 00:20 | XMS_ITS | Encounter Summary ---
Author Organization [facility] Address [address] [place] [address]. [place], [place] [address] [place] [address] Care Team Providers Care Tree Driller Name Role Phone Joni Mckeon MD Unavailable [phone] Noemi Barnard MD Primary Care Provider [phone] Encounter Details Date Type Department Care Team (Late st Contact Info) Description 07/21/2019 11:00 AM CDT Home Care Visit [address] [place] [address] Treasure Nicole, INSOLE TACKER AIDE HOME VISIT Social History Tobacco Use [...] Reading Time Taken Comments Blood Pressure 106/54 07/21/2019 2:24 PM CDT Pulse 76 07/21/2019 2:24 PM CDT Temperature 36.3 ??C (97.4 ??F) 07/21/2019 2:24 PM CD T Respiratory Rate 20 07/21/2019 2:24 PM CDT Oxygen Saturation - - Inhaled [...] CDT Leticia Groev R N Active documented in this encounter [...] Notes Hygiene Needs Met with Assist of MANAGER OF MEDICAL Description: Hygiene and safety needs will be met with assist of MANAGER OF MEDICAL by 09/16/19. Client will progress towards increased independence in performance of self cares. Aide for personal cares/mobility/ADL's No Interventions Intervention Associated Problem/Goal Status Variance Visit Notes Aide Communication tool Description: Complete MANAGER OF MEDICAL communication Problem:Aide for personal cares/mobility/ADL's Goal:Hygiene Needs Met with Assist of MANAGER OF MEDICAL Scheduled Aide Check Last BM Description: Check last BM. Notify RN if last BM longer than 3 days ago Problem:Aide for personal cares/mobility/ADL's Goal:Hygiene Needs Met with Assist of MANAGER OF MEDICAL Scheduled Aide inspect skin Description: Inspect skin for signs of pressure or irritation. After bathing reapply moisturizer. Report any observed or patient reported concerns to RN. Problem:Aide for personal cares/mobility/ADL's Goal:Hygiene Needs Met with Assist of MANAGER OF MEDICAL Scheduled Aide transfers Description: Assist with transfers using walker. Problem:Aide for personal cares/mobility/ADL's Goal:Hygiene Needs Met with Assist of MANAGER OF MEDICAL Scheduled Aide vitals Description: Obtain blood pressure, pulse, temperature, respirations and pulse oximetry. Notify RN of any significant changes. Vital Signs -report to sn if: BP: systolic blood pressure <90 or >160; diastolic blood pressure <60 or >90; Temperature: >100.5 F; Pulse: <60 or >100 bpm; Respiratory Rate: <12 or >28 /min; SPO2: <90%. Problem:Aide for personal cares/mobility/ADL's Goal:Hygiene Needs Met with Assist of MANAGER OF MEDICAL Scheduled Aide tub/shower bath Description: Assistance with bathing using shower stall. Clean shower after bathing. Problem:Aide for personal cares/mobility/ADL's Goal:Hygiene Needs Met with Assist of MANAGER OF MEDICAL Scheduled documented in this encounter Care Teams Tree Driller Relationship Specialty Start Date End Date Noemi Barnard MD [facility]. [address] [address] PCP - General INTERNAL MEDICINE 08/23/18 03/03/23 Joni Mckeon MD [facility]. [address] [address] [place] Hand Cutter CARDIOVASCULAR DISEASE 07/04/18 documented as of this encounter
--- OUTSIDE RECORDS SUMMARY | 2024-04-05 00:20 | XMS_ITS | Encounter Summary ---
Author Organization [facility] Address [address] [place] [address]. [place], [place] [address] [place] [address] Care Team Providers Care Facing Baster Name Role Phone Joni Mckeon MD Unavailable [phone] Noemi Barnard MD Primary Care Provider [phone] Encounter Details Date Type Department Care Team (Late st Contact Info) Description 07/27/2019 1:00 PM CDT Home Care Visit [address] [place] [address] Anita Swenson, RN [phone] (Work) SN HOME VISIT Social History [...] Sign Reading Time Taken Comments Blood Pressure 80/50 07/27/2019 1:33 PM CDT Pulse 86 07/27/2019 1:33 PM CDT Temperature 36.2 ??C (97.1 ??F) 07/27/2019 1:33 PM CD T Respiratory Rate 18 07/27/2019 1:33 PM CDT Oxygen Saturation 98% 07/27/2019 1:33 PM CDT Inhaled Oxygen Concentration - - [...] Progress Notes * Nuha Ruiz RN - 07/27/2019 1:00 PM CDT . documented in this encounter Plan of Treatment Not on file documented as of this encounter Goals Goal Patient Goal Type Associated Problems Recent Progress Patient-Stated? Author Improve Home Support System General No Laura Cheatham RN Return home with [facility] home health General No Malgorzata Brown GLOBAL REGULATORY LEAD documented as of this encounter Visit Diagnoses [...] care will be achieved by / through 09/16/19 Care Coordination No Provide Continuity of Care Description: To provide continuity of care A Plan for Next Visit No Remain Safe in Home Description: Patient will remain safe in their home as evidenced by no falls or injuries, through 09/16/19 Home Safety No Understanding of Medication Regimen Description: patient will verbalize understanding of medications and proper administration of medication regimen by 09/16/19 Medications No SN Management and Evaluation of the Care Plan Description: Skilled nurse will continue to manage and evaluate care plan through 09/16/19, or until patient moves in with her [...] patient on strategies/modificatio ns to home environment. Problem:Home Safety Goal:Remain Safe [...] healthy diet. Problem:Skilled Observation and Assessment Completed documented in this encounter Care Teams Facing Baster Relationship Specialty Start Date End Date Noemi Barnard MD [facility]. [address] [address] PCP - General INTERNAL MEDICINE 08/23/18 03/03/23 Joni Mckeon MD [facility]. [address] [address] [place] Handwriting Expert CARDIOVASCULAR DISEASE 07/04/18 documented as of this encounter
--- OUTSIDE RECORDS SUMMARY | 2024-04-05 00:20 | XMS_ITS | Encounter Summary ---
Author Organization [facility] Address [address] [place] [address]. [place], [place] [address] [place] [address] Care Team Providers Care Atm Manager Name Role Phone Joni Mckeon MD Unavailable Noemi Barnard MD Primary Care Provider [phone] Encounter Details Date Type Department Care Team (Latest Contact Info) Description 08/01/2019 Travel Social History Tobacco Use Types Packs/Day [...] or making decisions? No 08/01/2019 7:29 PM CDT Denise Mcmahon RN Active * Because of [...] No Laura Cheatham RN Return home with [facility] home health General No Malgorzata Brown CONTACT CENTER CONSULTANT documented as of this encounter Visit Diagnoses Not on filedocumented in this encounter Care Teams Atm Manager Relationship Specialty Start Date End Date Noemi Barnard MD [facility]. [address] [address] PCP - General INTERNAL MEDICINE 08/23/18 03/03/23 Joni Mckeon MD [facility]. [address] [address] [place] Melter Clerk CARDIOVASCULAR DISEASE 07/04/18 documented as of this encounter
--- OUTSIDE RECORDS SUMMARY | 2024-04-05 00:20 | XMS_ITS | Encounter Summary ---
Author Organization [facility] Address [address] [place] [address]. [place], [place] [address] [place] [address] Care Team Providers Care Pound Attendant Name Role Phone Joni Mckeon MD Unavailable [phone] Noemi Barnard MD Primary Care Provider [phone] Encounter Details Date Type Department Care Team (Latest Contact Info) Description 07/30/2019 Travel Social History Tobacco Use Types Packs/Day [...] on filedocumented in this encounter Care Teams Pound Attendant Relationship Specialty Start Date End Date Noemi Barnard MD [facility]. [facility] [address] [place] [address] PCP - General INTERNAL MEDICINE 08/23/18 03/03/23 Joni Mckeon MD [facility]. [facility] [address] [place] [address] [employer] Welding Machine Operator Helper Gas CARDIOVASCULAR DISEASE 07/04/18 documented as of this encounter
--- OUTSIDE RECORDS SUMMARY | 2024-04-05 00:20 | XMS_ITS | Encounter Summary ---
Author Organization [facility] Address [address] [place] [address]. [place], [place] [address] [place] [address] Care Team Providers Care Resident Assistant Cna Name Role Phone Joni Mckeon MD Unavailable [phone] Noemi Barnard MD Primary Care Provider [phone] Encounter Details Date Type Department Care Team (Late st Contact Info) Description 07/24/2019 12:15 PM CDT Home Care Visit [address] [place] [address] Juanis Lewis LPN SN HOME VISIT Social [...] Sign Reading Time Taken Comments Blood Pressure 102/52 07/24/2019 11:59 AM CDT Pulse 80 07/24/2019 11:59 AM CDT Temperature 36.1 ??C (97 ??F) 07/24/2019 11:59 AM CDT Respiratory Rate 18 07/24/2019 11:59 AM CDT Oxygen Saturation - - Inhaled [...] Visit Type -SN - Home Visit Discipline -Care Home Problems Problem Description Start Date Status Goals Interve ntions Discharge Planning Disciplines: Care Home Discharge Planning 07/19/2019 Active 1 goal linked to scheduled/docume nted intervention 1 goal intervention scheduled/documen ke in this visit Care Coordination Disciplines: Care Home Management and coordination of patient care 07/19/2019 Active 1 goal linked to scheduled/docume nted intervention 2 goal interventions scheduled/documen ke in this visit Homebound Status Disciplines: Care Home Patient meets requirements of homebound status as evidenced by . 07/19/2019 Active 1 goal linked to scheduled/docume nted intervention A Plan for Next Visit Disciplines: Care Home Plan for next visit 07/19/2019 Active 1 goal linked to scheduled/docume nted intervention 1 goal intervention scheduled/documen ke in this visit Home Safety Disciplines: Care Home Management and evaluation of patient's home environment 07/19/2019 Active 1 goal linked to scheduled/docume nted intervention 4 goal interventions scheduled/documen ke in this visit Medications Disciplines: Care Home Management of home medications 07/19/2019 Active 1 goal linked to scheduled/docume nted intervention 3 goal interventions scheduled/documen ke in this visit Management and Evaluation of the Care Plan Disciplines: Care Home SN for management and evaluation of skilled services 07/19/2019 Active 1 goal linked to scheduled/docume nted intervention 1 goal intervention scheduled/documen ke in this visit Skilled Observation and Assessment Disciplines: Care Home Skilled O & A as specified by the physician 07/19/2019 Active 1 goal linked to scheduled/docume nted intervention 2 problem interventions scheduled/documen ke in this visit Goals Goal Associated Problem Outcome Goal Met? Visit Notes Progress towards discharge Description: Documentation of ongoing progress towards goals through . Discharge Planning Met This Shift No Coordination of Care Achieved Description: Coordination of care will be achieved by / through for . Care Coordination Progressing No Patient meets homebound requirements Description: Patient meets requirements of homebound status as evidenced by . Homebound Status Met This Shift No Provide Continuity of Care Description: To provide continuity of care A Plan for Next Visit Met This Shift No Remain Safe in Home Description: Patient will remain safe in their home as evidenced by no falls or injuries, through . Home Safety Progressing No Understanding of Medication Regimen Description: { PATIENT CAREGIVER:442063} will verbalize understanding of medications and proper administration of medication regimen by . Medications Progressing No SN Management and Evaluation of the Care Plan Description: Management and Evaluation of the Care Plan Progressing No Skilled Observation and Assessment Description: Skilled Observation and Assessment Progressing No Interventions Intervention Associated Problem/Goal Status Variance Visit Notes Plan Towards Discharge Description: Document { PATIENT CAREGIVER:616190} progress towards discharge. Problem:Discharge Planning Goal:Progress towards discharge Completed Care Plan Collaboration Description: Care Plan Collaboration Problem:Care Coordination Goal:Coordination of Care Achieved Completed Care plan updates: None this visit. Care Coordination Description: Coordinate care with regarding . Problem:Care Coordination Goal:Coordination of Care Achieved Completed Plan for Next Visit Description: Next visit plan summation Problem:A Plan for Next Visit Goal:Provide Continuity of Care Completed Instruct Home Safety Description: Instruct { PATIENT CAREGIVER:014743} on strategies/modificatio ns to home environment. Problem:Home Safety Goal:Remain Safe in Home Completed Instruct Disaster/Evacuation Plan Description: Instruct in planning and execution of disaster/evacuation plan. Assist { PATIENT CAREGIVER:095106} in development or revision of plan as indicated. Problem:Home Safety Goal:Remain Safe in Home Completed Skilled Assessment Risk for Injury Description: Evaluate patient's home environment for potential safety risks, and educate { PATIENT CAREGIVER:675658} on identified safety risks. Problem:Home Safety Goal:Remain Safe in Home Completed Instruct injury prevention Description: Instruct { PATIENT CAREGIVER:644815} in strategies to prevent injury - modifications [...] bottle check. Skilled assessment medications Description: Assess { PATIENT CAREGIVER:299103} ability to manage medications. Provide detailed instruction [...] list in home. Patient to take medications { MEDICATION ADMINISTRATION SOURCE:847575} set up by { MEDICATION SET UP:954083}. Problem:Medications Goal:Understanding of Medication Regimen Completed Management and evaluation of care plan Description: SN to visit for management and evaluation of unskilled and skilled care providers. Evaluate and manage it to prevent medical complications. Notify physician of the need for modifications. Problem:Management and Evaluation of the Care Plan Goal:SN Management and Evaluation of the Care Plan Completed Skilled assessment knowledge deficit Problem:Skilled Observation and Assessment Scheduled Assess nutritional status Problem:Skilled Observation and Assessment Scheduled documented in this encounter Care Teams Resident Assistant Cna Relationship Specialty Start Date End Date Noemi Barnard MD [facility]. [address] [address] PCP - General INTERNAL MEDICINE 08/23/18 03/03/23 Joni Mckeon MD [facility]. [address] [address] Christopher Rn Documentation Specialist CARDIOVASCULAR DISEASE 07/04/18 documented as of this encounter
--- OUTSIDE RECORDS SUMMARY | 2024-04-05 00:20 | XMS_ITS | Encounter Summary ---
Author Organization [facility] Address [address] [place] [address]. [place], [place] [address] [place] [address] Care Team Providers Care Networks Software Consultant Name Role Phone Joni Mckeon MD Unavailable [phone] Noemi Barnard MD Primary Care Provider [phone] Encounter Details Date Type Department Care Team (Late st Contact Info) Description 07/25/2019 3:00 PM CDT Home Care Visit [address] [place] [address] Mekhi Falk, BIOFUELS RESEARCH SCIENTIST [address] [place] [address] BIOFUELS RESEARCH SCIENTIST HOME VISIT Social History Tobacco Use Types [...] Sign Reading Time Taken Comments Blood Pressure 120/62 07/25/2019 3:22 PM CDT Pulse 68 07/25/2019 3:22 PM CDT Temperature 36.7 ??C (98 ??F) 07/25/2019 3:22 PM CDT Respiratory Rate 18 07/25/2019 3:22 PM CDT Oxygen Saturation - - Inhaled [...] - Care Plan Visit Details Visit Type -BIOFUELS RESEARCH SCIENTIST - Home Visit Discipline -Physical Therapy Problems [...] of Care/Interpretive Services Completed read eval from [facility] PT Plan for Next Visit Description: Next [...] AND KITCHEN Therapies - Vitals Description: PT, protective services case worker or physician to be contacted if pulse [...] Gait Training Completed Patient ambulated 60' and 120' with use of rollator and SBA. Entered/exited elevator safely without difficulty. Slow pace noted during ambulaiton with short step height and small stride lengths. Fatigue noted during ambulaiton requiring sitting rest break. Therapies Balance Description: Assess balance and provide NMRE activities in standing to increase static and dynamic balance in order to improve gait pattern and decrease fall risk. Problem:PT Therapeutic Exercise Goal:PT Therapeutic Exercise Completed Therapies - Therapeutic Exercise Description: HEP for BLE strength and activity tolerance improvements Problem:PT Therapeutic Exercise Goal:PT Therapeutic Exercise Completed Patient completed LAQ, hip flexion, hip ABD, and PF/DF bilaterally. All exercises completed x 15 besides LAQ on left LE x 10 due to weakness and fatigue. Difficulty with reps 7-10 of LAQ. Patient c/o fatigue and difficulty of exercises with left LE. documented in this encounter Care Teams Networks Software Consultant Relationship Specialty Start Date End Date Noemi Barnard MD [address] [address] PCP - General INTERNAL MEDICINE 08/23/18 03/03/23 Joni Mckeon MD [address] [address] Christopher Outbound Call Center Representative CARDIOVASCULAR DISEASE 07/04/18 documented as of this encounter
--- OUTSIDE RECORDS SUMMARY | 2024-04-05 00:20 | XMS_ITS | Encounter Summary ---
Author Organization [facility] Address [address] [place] [address]. [place] [address] [place] [address] Care Team Providers Care Access Developer Name Role Phone Joni Mckeon MD Unavailable [phone] Noemi Barnard MD Primary Care Provider [phone] Reason for Visit * Reason Onset Date Comments Hospital Follow Up 07/26/2019 Encounter Details Date Type Department Care Team (Late st Contact Info) Description 07/26/2019 Telephone [facility] Care Management [address] [place] [address] Laura Cheatham, RN Hospital Follow Up Social History Tobacco [...] documented in this encounter Progress Notes * Laura Cheatham RN - 07/26/2019 10:54 AM CDT SPOKE WITH PATIENT. SHE STATED SHE IS DOING WELL. STATED DAUGHTER ASSISTS HER NEEDED. HAS APPOINTMENT WITH HER PCP NEXT WEEK Wednesday. STATED WILL CALL IF FEELS NEED TO SEE PCP SOONER. DENIES ANYTEMPERATURES. documented in this encounter Plan of Treatment Not on file documented as of this encounter Goals Goal Patient Goal Type Associated Problems Recent Progress Patient-Stated? Author Improve Home Support System General No Laura Cheatham RN documented as of this encounter Visit Diagnoses Not on filedocumented in this encounter Care Teams Access Developer Relationship Specialty Start Date End Date Noemi Barnard MD [address] [address] PCP - General INTERNAL MEDICINE 08/23/18 03/03/23 Joni Mckeon MD [facility]. [address] [address] [place] Charge Lpn CARDIOVASCULAR DISEASE 07/04/18 documented as of this encounter
--- OUTSIDE RECORDS SUMMARY | 2024-04-05 00:20 | XMS_ITS | Encounter Summary ---
Author Organization [facility] Address [address] [place] [address]. [place], [place] [address] [place] [address] Care Team Providers Care Automatic Mold Sander Name Role Phone Joni Mckeon MD Unavailable [phone] Noemi Barnard MD Primary Care Provider [phone] Encounter Details Date Type Department Care Team (Late st Contact Info) Description 07/27/2019 1:30 PM CDT Home Care Visit [address] [place] [address] Mekhi Falk, CHIEF PRIVACY OFFICER [address] [place] [address] CHIEF PRIVACY OFFICER HOME VISIT Social History Tobacco Use Types [...] Sign Reading Time Taken Comments Blood Pressure 118/70 07/27/2019 2:12 PM CDT Pulse 84 07/27/2019 2:12 PM CDT Temperature - - Respiratory Rate 18 07/27/2019 2:12 PM CDT Oxygen Saturation - - Inhaled [...] - Care Plan Visit Details Visit Type -CHIEF PRIVACY OFFICER - Home Visit Discipline -Physical Therapy Problems [...] Problem:Care Coordination Goal:Coordination of Care/Interpretive Services Completed Pilot Submersible seen last Plan for Next Visit Description: [...] Instruct Home Safety Description: Instruct patient on strategies/modifica tions to home environment. Problem:Home Safety Goal:Remain Safe [...] AND KITCHEN Therapies - Vitals Description: PT, telephonic case manager or physician to be contacted [...] Problem:PT Gait Training Goal:PT Gait Training Completed Attempted ambulation but after 5' patient became more dizzy this date and required step to gait back to recliner before sitting down. Withheld this date. Therapies - Therapeutic Exercise Description: HEP for BLE strength and activity tolerance improvements Problem:PT Therapeutic Exercise Goal:PT Therapeutic Exercise Completed Patient performed LAQ, hip flexion, hip ABD, and PF/DF x 20 bilaterally in sitting. Patient required visual cues for initiation of exercises. Demonstrates improved ROM and technique with exercises this date with less fatigue. C/o fatigue at end of reps. Therapies Balance Description: Assess balance and provide NMRE activities in standing to increase static and dynamic balance in order to improve gait pattern and decrease fall risk. Problem:PT Therapeutic Exercise Goal:PT Therapeutic Exercise Scheduled with variance Defer to next visit documented in this encounter Care Teams Automatic Mold Sander Relationship Specialty Start Date End Date Noemi Barnard MD [address] [address] PCP - General INTERNAL MEDICINE 08/23/18 03/03/23 Joni Mckeon MD [facility]. [address] [address] Christopher Food Stylist CARDIOVASCULAR DISEASE 07/04/18 documented as of this encounter
--- OUTSIDE RECORDS SUMMARY | 2024-04-05 00:20 | XMS_ITS | Encounter Summary ---
Author Organization [facility] Address [address] [place] [address]. [place], [place] [id number] [place] [id number] Care Team Providers Care Roll Tension Tester Name Role Phone Joni Mckeon MD Unavailable [phone] Noemi Jade MD Primary Care Provider [phone] Reason for Referral * Imaging (Urgent) - Closed Specialty Diagnoses / Procedures Referred By Contac t Referred To Contact RADIOLOGY Procedures CT HIP RT WO CON CT HIP RT W CON Kena Dos Santos APRN 1 [place] [address] Phone: tel: [phone] fax: Referral ID Status Reason Start Date Expiration Date Visits Re quested Visits Authorized [id number] Closed 08/07/2019 09/06/2020 1 1 * Imaging (Urgent) - Closed Specialty Diagnoses / Procedures Referred By Contac t Referred To Contact RADIOLOGY Procedures CT PEL WO CON CT PEL W CON Kena Dos Santos APRN 1 [place] [address] Phone: tel: [phone] fax: Referral ID Status Reason Start Date Expiration Date Visits Re quested Visits Authorized [id number] Closed 08/07/2019 09/06/2020 1 1 * (Routine) - Canceled Specialty Diagnoses / Procedures Referred By Contac t Referred To Contact Procedures OT Eval and Treat [facility] [address] [place] [address] Phone: tel: Referral ID Status Reason Start Date Expiration Date V isits Requested Visits Authorized [id number] Canceled 08/02/2019 08/31/2020 1 1 * (Routine) - Canceled Specialty Diagnoses / Procedures Referred By Contac t Referred To Contact Procedures PT Eval and Treat [place]iano [place] [address] Phone: tel: [phone] fax: Referral ID Status Reason Start Date Expiration Date V isits Requested Visits Authorized [id number] Canceled 08/01/2019 08/30/2020 1 1 Reason for Visit * Auth/Cert Specialty Diagnoses / Procedures Referred By Contac t Referred To Contact Diagnoses Physical deconditioning Referral ID Status Reason Start Date Expiration Date Visits Re quested Visits Authorized [id number] 1 1 Encounter Details Date Type Department Care Team (Late st Contact Info) Description 08/01/2019 5:29 PM CDT - 08/16/2019 1:30 PM CDT Hospital Encounter [facility] [address] [place] [address] [place] [address] [phone] (Work) Ciarra [place] [address] Kena Dos Santos APRN 1 [place] [address] [phone] (Work) Bijan [place] [address] [phone] (Work) Tori Coon, MIKE [address] [place] [address] Shy Cosme MD [address] [facility] [address] [place] [address] Discharge Disposition: Home with Home Health Care Social History Tobacco Use Types Packs/Day Years [...] Sign Reading Time Taken Comments Blood Pressure 131/56 08/16/2019 9:10 AM CDT Pulse 68 08/16/2019 9:10 AM CDT Temperature 36.9 ??C (98.4 ??F) 08/16/2019 9:10 AM CD T Respiratory Rate 20 08/16/2019 9:10 AM CDT Oxygen Saturation 91% 08/16/2019 9:10 AM CDT Inhaled Oxygen Concentration - - Weight 55.6 kg (122 lb 9.2 oz) 08/16/2019 1:38 A M CDT Height - - Body Mass Index 21.37 07/30/2019 10:00 PM CDT documented in this [...] Assessment Author Status No 08/16/2019 11:28 AM JEANNIE Acti ve * RETIRED Are you blind or do you have serious difficulty seeing, even when wearing glasses? Answer Date of Assessment Author Status No 08/16/2019 11:28 AM DAVIDT Acti ve * Do you have serious [...] Status No 08/16/2019 11:28 AM CDT Tai, Laial L, R N Active documented in this encounter Discharge Summaries * Emiliano Hubbard MD - 08/16/2019 11:15 AM CDT Hospitalist Discharge Summary Patient ID: Roxana Ch. female. [id number] Admit date: 08/01/2019 5:29 PM Discharge date: 08/16/19 Admitting Physician: Emiliano Hubbard MD Attending Physician: Emiliano Hubbard MD Primary Care Physician: NOEMI JADE MD Discharge Physician: EMILIANO HUBBARD MD Primary Diagnoses: Patient Active Problem List Diagnosis ??? Claudication ([facility]) ??? Colitis ??? Diabetes mellitus ([facility]) ??? Dyshidrotic eczema ??? GERD (gastroesophageal [...] without long- term current use of insulin ([facility]) ??? CLAUDIO (acute kidney injury) ([facility]) Discharged Condition: Stable Code Status: Full Code Indication for Admission: No chief complaint on file. Reason for hospitalization: Patient Active Problem List Diagnosis ??? Claudication ([facility]) ??? Colitis ??? Diabetes mellitus ([facility]) ??? Dyshidrotic eczema ??? GERD (gastroesophageal [...] without long- term current use of insulin ([facility]) ??? CLAUDIO (acute kidney injury) ([facility]) Readmission/Mortality Score at discharge: Low 0-28, Medium 29-58, High >59 LACE+ Score Readmission Score: 69 Male Patient: Urgent Admission: Discharge Institution: Length of Stay: 9 Alternative Level of Care Status: 0 ED Visits in Previous 6 Months: 3 Elective Admission in Previous Year: 6 Comorbidity Score (by age & number of urgent admissions): 51 Hospital Course:??84-year-old??female??presented with presyncope and fall with hyponatremia and hypokalemia. ??Likely secondary to hydrochlorothiazide that will was discontinued. ??Continue with Lasix and potassium, benazepril, and Norvasc. Admitted for deconditioning to swing bed. ?? A/P Physical Deconditioning 08/15 Made good progress w PT, meeting goals. ?? Presyncope with fall and electrolyte abnormalities??of hypokalemia and hyponatremia Suspect iatrogenic secondary to??Lasix and possibly hydrochlorothiazide/Lasix/amlodipine Troponins negative stable on telemetry on Norvasc, benazepril, Lasix ?? Stopped hydrochlorothiazide. Goals 08/16/2019 ?? Right hip hematoma ??S/p fall Noted on CT 07/29; brusing stable H&H stable ?? Hemodynamically stable Noted hematoma on exam over right ilium area that is soft but appears walled off? hemtoma vs fluid collection Repeat CT scan stable?? 08/12: Stable in size ?? Diabetes ADA diet if pt allows SSI for tight glycemic control Avoid Metformin while inpatient 08/12. ??Glucoses well controlled ?? Dysuria, UTI: Noted 08/09 Check UA UA suggestive of UTI Start Keflex Await urine culture?? 08/12: >100 K Klebsiella pneumoniae Continue Keflex for 7 days 08/15 resolved Candidiasis Nystatin ?? HTN Resumed??Lasix, amlodipine, ANGEL inhibitor, monitor trend Stopped HCTZ as above.?? 08/12: BP low normal DC amlodipine for now if resumed 2.5 mg dose if necessary ?? Hyperlipidemia Continue current regimen ?? Hypothyroidism Cont current regimen ?? Depression?? Appears stable continue current regimen ?? Insomnia?? On trazodone may be contributing consider holding if patient complies ?? Rhinitis ?? DVT Prophylaxis Heparin Subcutaneous, SCD. ?? Advanced care full code Consults: None Significant Diagnostic Studies: Recent Labs Lab 08/11/19 0633 08/15/19 0626 WBC 9.8 3.1* RBC 3.98* 3.76* HGB 11.7* 10.9* HCT 35.2* 33.0* MCV 88.4 87.8 MCH 29.4 29.0 MCHC 33.2 33.0 PLT 165 180 RDW 14.6 14.5 MPV 9.2* 9.8 PERNEU -- 65.8 PERLYM -- 17.6 PERMON -- 12.7* LYMC 0.29* 0.54* Recent Labs Lab 08/15/19 0626 NA 139 K 4.0 CL 101 CO2 27.4 AGAP 10.6 BUN 22* CR 1.07* BUNCREATININ 20.6 GFRNON 48* GFR 55* GLU 105* CA 8.7 No results for input(s): CHOL, TRI, HDL, LDL, HGBA1C, TSH in the last 168 hours. No results for input(s): APTT, INR, PTT in the last 168 hours. No results for input(s): TROP, TROPIWB, CKMB, CPK in the last 168 hours. No results for input(s): LACTICACID, PROCT in the last 168 hours. No results for input(s): PH, PCO2, PO2, R6MDFOZAFANW, BICARBWB, BASEDEFICIT, BASEEXCESS in the [id number] hours. Results for orders placed or performed during the hospital encounter of 07/30/19 URINALYSIS, AUTO, COMPLETE Result Value Ref Range COLOR (U) YELLOW TRANSPARENCY HAZY Specific [place] (U) 1.015 1.000 - 1.030 U PH [...] No results found. Discharge Exam: Filed Vitals: 08/15/19 0627 08/15/19 0700 08/16/19 0138 08/16/19 0910 BP: 135/54 131/56 Pulse: 60 68 Resp: 20 20 Temp: 97.6 ??F (36.4 ??C) 97.8 ??F (36.6 ??C) 98.4 ??F (36.9 ??C) TempSrc: Tympanic Tympanic Tympanic SpO2: 92% 91% Weight: 55.6 kg (122 lb 9.2 oz) General: Laying in bed, NAD. Eyes: EOMI, PERRLA ENT: MMM Lungs: Dec BS in the bases, No wheezes, No crackles Cardiovascular: Regular rate rhythm, S1 and S2 normal, No murmurs, Abdomen: S, NT, no rebound/guarding. BS present. Extremities: Tr edema. Neurological: Tired, CN II-XII grossly intact Psych: Flat affect Discharge Medications: Medication List START taking these medications nystatin cream Commonly known as: MYCOSTATIN Apply topically 2 (two) times daily. CHANGE how you take these medications benazepril 20 MG tablet Commonly known as: LOTENSIN TAKE 1 TABLET BY MOUTH EVERY DAY What changed: how much to take pravastatin 40 MG tablet Commonly known as: PRAVACHOL TAKE 1 TABLET BY MOUTH AT BEDTIME What changed: additional instructions CONTINUE taking these medications aspirin EC 81 MG tablet Commonly known as: ECOTRIN donepezil 10 MG Tabs Commonly known as: ARICEPT furosemide 20 MG tablet Commonly known as: LASIX Take 1 tablet (20 mg total) by mouth daily. levothyroxine 50 MCG tablet Commonly known as: SYNTHROID potassium chloride CR 10 MEQ tablet Commonly known as: KLOR-CON M TAKE 1 TABLET(10 MEQ) BY MOUTH DAILY WITH BREAKFAST sertraline 100 MG tablet Commonly known as: ZOLOFT traZODone 50 MG tablet Commonly known as: DESYREL Vitamin D 50 MCG (1999 UT) Caps STOP taking these medications amLODIPine 5 MG tablet Commonly known as: NORVASC Where to Get Your Medications These medications were sent to [id number] - [place], [place] - [address] AT [place] [address] [address] [facility] [id number] ?? nystatin cream Medications Discontinued during this hospitalization: Medications Discontinued During This Encounter Medication Reason ??? acetaminophen (TYLENOL) tablet 650 mg Duplicate Med ??? sodium chloride 0.9% infusion Ordering Physician ??? donepezil (ARICEPT) tablet 10 mg Ordering Physician ??? furosemide (LASIX) tablet 20 mg Ordering Physician ??? sertraline (ZOLOFT) tablet 100 mg Ordering Physician ??? amLODIPine (NORVASC) tablet 5 mg Ordering Physician ??? aspirin EC (ECOTRIN) tablet 81 mg Ordering Physician ??? pravastatin (PRAVACHOL) tablet 40 mg Ordering Physician ??? vitamin D3 (cholecalciferol) tablet 2,000 Units Ordering Physician ??? potassium chloride CR (KLOR-CON M) tablet 10 mEq Ordering Physician ??? lisinopril (PRINIVIL) tablet 5 mg Ordering Physician ??? levothyroxine (SYNTHROID) tablet 50 mcg Ordering Physician ??? famotidine (PEPCID) injection 20 mg ??? famotidine (PEPCID) tablet 20 mg ??? bacitracin ointment ??? ondansetron (ZOFRAN) injection 4 mg Alternate therapy ??? insulin lispro (HUMALOG) injection 0-14 Units ??? insulin lispro (HUMALOG) injection 0-7 Units Ordering Physician ??? amLODIPine (NORVASC) tablet 5 mg Ordering Physician ??? cephALEXin (KEFLEX) capsule 500 mg Ordering Physician ??? cefTRIAXone (ROCEPHIN) 1 g in sterile water 10 mL IV Patient Instructions: Activity: as tolerated. Diet: Diet general Appropriate Therapy Ordered: No therapy plan of the specified type found. Follow-up appointments: No follow-ups on file. Followup Lab Orders: Time Spent on Discharge greater than 30 minutes. EMILIANO HUBBARD MD 08/16/2019 11:24 AM documented in this encounter Discharge Instructions * Discharge Instructions* Laila Lujan RN - 08/16/2019 12:56 PM CDT [employer] WILL START 08/17/2019 [facility] HEALTH MONITOR SCAB ON RT BACK, HEMATOMA RT HIP documented in this encounter Medications at Time [...] by mouth every morning. Indications: Depression 08/17/2019 BENAZEPRIL 20 MG tablet [The details of [...] as of this encounter Progress Notes * AMANDA Blum - 08/16/2019 11:30 AM CDT Interdisciplinary Team conference held. In attendance; case management, UR, nursing, PT, OT, cardiopulmonary, REPORTING MANAGER, Hospitalist, Pastoral Care, and Pharmacy. Meeting held at 11:00. Plan to discharge home today with [facility] home health to follow. CM contacted [employer] and requested they resume services for tomorrow. * Sindy Escudero PT - 08/16/2019 11:26 AM CDT 08/16/19 1100 Therapy Visit Subjective Patient to be discharged today. No PT performed, but patient was given a written HEP andverbalized understanding of ex. Patient to receive PT. Verified Two Patient Identifiers Yes PT Assessment PT Assessment Patient has made good progress and is safe to return home with family. Plan If this is the last treatment note,it will serve as the discharge summary Yes * Laila Lujan RN - 08/16/2019 11:19 AM CDT Problem: Reduced risk for falls/injury Goal: Reduced Risk for Falls/Injury Outcome: Adequate for Discharge Goal: Reduced Risk of Dizziness/Vertigo/Balance Outcome: Adequate for Discharge * AMANDA Blum - 08/15/2019 12:04 PM CDT Interdisciplinary Team conference held. In attendance; case management, UR, nursing, PT, OT, cardiopulmonary, REPORTING MANAGER, Hospitalist, Pastoral Care, and Pharmacy. Meeting held at 11:00. Plan to discharge home tomorrow with [facility] home health to follow. CM will contact [employer] tomorrow to notify them of discharge and request her services be resumed. Reviewed Non-Coverage letter with patient. The form was signed by the patient as having been received and understood. A copy of the form was left with patient and a copy of the form was placed in thepatient's skinny file for scanning. * Va Rios, FARROWING WORKER - 08/15/2019 10:22 AM CDT 08/15/19 1002 Therapy Visit Ordering Provider Dr. Hubbard PT Received On 07/31/19 Subjective Pt denied pain, doing Ok. Reason for admission DX: CLAUDIO. Fell in kitchen 07/30/19 and brought to ER. Transitioned to swing bed at [facility] on 08/01/2019. Relevant Comorbidities/ Personal Factors to PT PMH includes at [facility] 06/22-07/18/19 for bactremia, UTI,CA, DM, GERD, HTN, HLD, hypothyroid, insomnia, sepsis, nu, hyst, RTC repair. Transfer to swing bed 08/01/19. Verified Two Patient Identifiers Yes Patient consents to therapy Yes Acute Inpatient PT Time Calculation PT Start Time 0946 PT Stop Time 1015 PT Time Calculation (min) 29 min Precautions Precautions Yes/No Yes General Precautions Chair Alarm Instructed on Precautions Yes Pain Pain Patient does not offer or c/o pain Activity Tolerance Endurance Tolerates 30 min activity with rests Cognition Overall Cognitive Status WFL Arousal/Alertness Appropriate responses to stimuli Attention Span Appears intact Memory Appears intact Orientation Level Oriented X4 Following Commands Follows one step commands with repetition Motor Planning Cues to use objects appropriately Other (Comment) vc required to roll to sit up and also to straighten self out in supine Bed Mobility Rolling SBA/supervision Supine to Sit SBA/supervision Sit to Supine SBA/supervision Other (Comment) vc to reposition etc (motor planning) TRANSFERS Sit to Stand SBA/supervision Bed to Chair Contact guard assist Gait Gait Assistance Contact guard assist Assistive Device 2 Wheeled walker Ambulation Distance (Feet) 150'x1 Pattern Shuffle steps Weight Bearing Status Total Other (Comment) decreasd yasmin, V/C to improve step length Balance Sitting - Static Independent Sitting - Dynamic Independent Standing - Static CGA Standing - Dynamic CGA Exercises Ankle Pumps x10 B reclined Knee ROM LAQ x 10 each Hip Flexion Marches x 10 each Patient/Family Training Bed Mobility x Transfer Training x Gait Training x Precautions x Exercise Program x PT Assessment PT Assessment Pt struggles most with bed mobility but with increase time she is more indep Modified [place] Score Interval Daily Recommendation PT Recommendation Swing Bed Unit PT Equipment Recommended Currently has DME in Place OT Recommendation Home OT;Home with assistance;Other (Comment) OT Equipment Recommended Currently has DME in Place Barriers to Community Discharge Safety Plan PT Treatments/Interventions Gait Training;Therapeutic Exercises;Therapeutic Activities;Neuromuscular re-education;Patient/family training Progress Progressing toward goals PT plan for next session Continue to emphasis on bed mobility If this is the last treatment note,it will serve as the discharge summary Yes End of Session Safety End of Session Safety Chair alarm set/activated * Mini Tillman OT - 08/15/2019 9:21 AM CDT 08/15/19 0900 Therapy Visit OT Received On 08/15/19 Reason for admission DX: CLAUDIO. Fell in kitchen 07/30/19 and brought to ER. Transitioned to swing bed at [facility] on 08/01/2019. Comorbidities Relevant to OT PMH includes at [facility] 06/22-07/18/19 for bactremia, UTI. PMH sig for CA, DM, GERD, HTN, HLD, hypothyroid, insomnia, sepsis, nu, hyst, RTC repair. Previous Occupational Therapy Inpatient Therapy;Home care Ordering Provider Dr. Hubbard Verified Two Patient Identifiers Yes Patient consents to therapy Yes Acute Inpatient OT Time Calculation OT Start Time 08 OT Stop Time 09 OT Time Calculation (min) 32 min Precautions Precautions Yes/No Yes General Precautions Bed Alarm;Chair Alarm;Fall Risk Instructed on Precautions Yes Skin Integrity bordered gauze present over posterior R hip Other [place] Subjective Subjective Patient reports she is ready for bathing and dressing. Patient denies pain this morning. Home Living Type of Home Apartment Home Layout One level;Other (Comment) Home Accessibility 0 Steps to enter Bathroom Shower/Tub Tub/shower unit Bathroom Toilet Grab bars around toilet Bathroom Equipment Tub/shower chair with back Bathroom Accessibility Accessible Home Equipment 2 Wheeled walker;4 Wheeled walker Additional Comments Getting MOW and HH recently Prior Function Level of [place] Independent with ADLs;Independent with functional transfers;Independent with ambulation Device used at baseline 2 Wheeled walker;4 Wheeled walker Baseline Ambulation Distance/Assistance household distances Fall History Yes Reason for fall weakness Most recent fall 07/30/19 Receives Help From Family;Home health Pain Pain Patient does not offer or c/o pain Objective Objective Patient seated in bedside chair with breakfast finished upon therapist arrival. Activity Tolerance Endurance Tolerates 30 min activity with rests Activity Tolerance Comments Pt demos good- tolerance for alt sit to stand ADL tx; pt demos mild BUEclonis tremor at end of ADL tx seated in bathroom. Cognition Overall Cognitive Status WFL Arousal/Alertness Appropriate responses to stimuli Attention Span Appears intact Memory Appears intact Orientation Level Oriented X4 Following Commands Follows one step commands with repetition Safety Judgment Good awareness of safety precautions ADL Eating/Feeding Assistance Independent;Sitting in chair Eating/Feeding Deficit Setup Eating/Feeding Comment Patient ate 100% of breakfast this AM. Grooming Assistance Standing at sink;Stand by Grooming Deficit Standing with assistive device Grooming Comment Completed oral care Bathing Assistance Stand by;Alternating sit/stand (from armless shower chair) Bathing Deficit Setup;Supervision/safety;Increased time to complete Bathing Comment Pt completed sponge bath alt sit to stand from armless shower chair at bathroom sink. SBA to wash UB and LB. Patient able to reach feet for bathing with min extra time and encouragment.SBA to complete perihygiene in standing; support of 1 UE on solid surface for steadying support. Pt hesitant about using R hand d/t IV placement. UE Dressing Assistance Minimal;Sitting in chair UE Dressing Deficit Setup;Supervision/safety;Fasteners UE Dressing Comment to don/dof hospital gown LE Dressing Assistance Minimal LE Dressing Deficit Setup LE Dressing Comment Pt indep to doff B hosp socks. Min A to don socks in sitting. on armless showerchair. Patient reports she is able to manage socks when sitting on recliner at home, Toileting Assistance Stand by Toileting Deficit Setup;Steadying;Grab bar use;Toilet riser Toileting Comment Pt completed toileting utilizing 3 in 1 commode frame over standard toilet; completes perihygiene in standing w/ SBA and use of ww for steadying support. Additional Comments Patient declined wearing street clothes as she only has pajamas from when she arrived via EMS. If my bowels move from medicine today I don't want a mess either. Functional Transfers Sit to Stand SBA/supervision (with ww) Toilet Transfers Grab bars (SBA with ww) Functional Mobility SBA within room and bathroom with ww Other (Comment) armless shower chair with ww SBA Assessment OT Assess/Eval Other (Comment) Patient is performing functional transfers/mobility and basic self care with SBA. Good safety is demonstrated with ww. Improvements are noted with activity tolerance however patient performs best with min encouragement. Patient will transition well to home and home hea lth services. Patient/Family Training Self Cares techniques to promote increased independence and safety Transfer Training safety with ww Recommendation OT Recommendation Home OT;Home with assistance;Other (Comment) OT Equipment Recommended Currently has DME in Place Plan OT Treatment/Intervention Self-care training;Therapeutic exercises;Therapeutic activities;Functional activity;Safety Progress Progressing toward goals If this is the last treatment note, it will serve as the discharge summary Yes End of Session Safety End of Session Safety Nursing aware of session;Call light within reach * Imelda Murray RN - 08/14/2019 11:21 PM CDT Problem: Reduced risk for falls/injury Goal: Reduced Risk for Falls/Injury Outcome: Progressing No falls this hospitalization Problem: Reduced risk for falls/injury Goal: Reduced Risk of Dizziness/Vertigo/Balance Outcome: Progressing Denies Dizziness. * Sindy Escudero, PT - 08/14/2019 3:43 PM CDT 08/14/19 1500 Therapy Visit Subjective Patient states she is tired, but willing to get up and walk and do a few ex. Verified Two Patient Identifiers Yes Patient consents to therapy Yes Acute Inpatient PT Time Calculation PT Start Time 1431 PT Stop Time 1446 PT Time Calculation (min) 15 min Precautions Precautions Yes/No Yes General Precautions Bed Alarm;Chair Alarm;Fall Risk Instructed on Precautions Yes Bed Mobility Supine to Sit Min assist to right Sit to Supine Min assist to left Other (Comment) used rail to assist with bed mobility. TRANSFERS Sit to Stand Contact guard assist Other (Comment) stand to sit with supervision Gait Gait Assistance Contact guard assist Assistive Device 2 Wheeled walker Ambulation Distance (Feet) 70' Pattern Shuffle steps Balance Sitting - Static Independent Standing - Static SBA;Support of both upper extremities Standing - Dynamic CGA;Support of both upper extremities Exercises Sitting LE Exercise sitting ankle DF/PF x 10 and LAQs x 5 B Patient/Family Training Bed Mobility yes Transfer Training yes Gait Training yes Precautions yes Exercise Program yes PT Assessment PT Assessment Patient struggles with most with bed mobility. Plan PT plan for next session Continue PT If this is the last treatment note,it will serve as the discharge summary Yes End of Session Safety End of Session Safety Bed alarm set/activated;Call light within reach * Steffany Moreno, PIANO CASE MAKER - 08/14/2019 1:17 PM CDT 08/14/1945 Therapy Visit OT Received On 08/14/19 Reason for admission DX: CLAUDIO. Fell in kitchen 07/30/19 and brought to ER. Transitioned to swing bed at [facility] on 08/01/2019. Comorbidities Relevant to OT PMH includes at [facility] 06/22-07/18/19 for bactremia, UTI. PMH sig for CA, DM, GERD, HTN, HLD, hypothyroid, insomnia, sepsis, nu, hyst, RTC repair. Previous Occupational Therapy Inpatient Therapy;Home care Ordering Provider Dr. Hubbard Verified Two Patient Identifiers Yes Patient consents to therapy Yes Acute Inpatient OT Time Calculation OT Start Time 844 OT Stop Time 920 OT Time Calculation (min) 36 min Precautions Precautions Yes/No Yes General Precautions Bed Alarm;Chair Alarm;Fall Risk;Monitor Vitals Other [place], Abrasion to R hip Subjective Subjective I've got this baldder infection again. Pt presented in bedside chair, willing to participate in tx. Pain Pain Patient does not offer or c/o pain Activity Tolerance Endurance Tolerates 30 min activity with rests Activity Tolerance Comments Pt demos fair+ tolerance for alt sit to stand ADL tx; pt demos mild BUEclonis tremor at end of ADL tx seated in bathroom. Pt states she gets that way before breakfast. Cognition Overall Cognitive Status WFL ADL Grooming Assistance Stand by;Sitting in chair Grooming Deficit Setup;Supervision/safety;Increased time to complete Grooming Comment To wash face/hands and complete denture care seated in armless shower chair at bathroom sink. Bathing Assistance Minimal;Alternating sit/stand Bathing Deficit Setup;Supervision/safety;Increased time to complete;Right lower leg including foot;Left lower leg including foot Bathing Comment Pt completed sponge bath alt sit to stand from armless shower chair at bathroom sink. SBA to wash UB and LB to feet; requires assist to wash B feet d/t limited distal reach s/t environmental constraint. SBA to complete perihygiene in standing; support of 1 UE on solid surface for steadying support. Pt hesitant about using R hand d/t IV placement. UE Dressing Assistance Minimal;Sitting in chair UE Dressing Deficit Setup;Supervision/safety;Fasteners UE Dressing Comment to don/dof hospital gown LE Dressing Assistance Minimal LE Dressing Deficit Setup;Don/doff R sock;Don/doff L sock LE Dressing Comment Pt indep to dof B hosp socks but requires Total assist to don socks while seated at bathroom sink. Toileting Assistance Stand by Toileting Deficit Setup;Steadying;Grab bar use;Toilet riser Toileting Comment Pt completed toileting utilizing 3 in 1 commode; completes perihygiene in standing w/ SBA and use of ww for steadying support. Functional Transfers Sit to Stand Contact guard assist Toilet Transfers CGA;Grab bars;Additional time;Adaptive equipment (3 in 1 commode over standard toilet) Functional Mobility CGA w/ww, bedside chair opposite side of room<>bathroom Balance Sitting - Static Independent Sitting - Dynamic Independent Standing - Static SBA;Support of one upper extremity;Support of both upper extremities Standing - Dynamic SBA;CGA;Support of both upper extremities Patient/Family Training Self Cares EC techs for optimal safety and indep Transfer Training Hand placement for sit to stand safety. OT Assessment OT Assessment Pt cooperative and motivated to complete tx; demos increased indep w/standing componenets of ADL tx. Will continue to progress with skilled OT. Plan OT Treatment/Intervention Self-care training;Therapeutic exercises;Therapeutic activities;Functional activity;Safety Progress Progressing toward goals If this is the last treatment note, it will serve as the discharge summary Yes End of Session Safety End of Session Safety Chair alarm set/activated;Call light within reach * AMANDA Blum - 08/14/2019 11:44 AM CDT Interdisciplinary Team conference held. In attendance; case management, UR, nursing, PT, OT, cardiopulmonary, REPORTING MANAGER, Hospitalist, Pastoral Care, and Pharmacy. Meeting held at 11:00. Continue with PT goals through 08/16/2019. Updated [facility] home health on DC date. Patient will discharge home 08/16/2019 with [facility] home health. * Sindy Escudero PT - 08/14/2019 11:08 AM CDT 08/14/19 0900 Therapy Visit Subjective Patient states she has a bladder infection so now has an IV. Verified Two Patient Identifiers Yes Patient consents to therapy Yes Acute Inpatient PT Time Calculation PT Start Time 0948 PT Stop Time 1015 PT Time Calculation (min) 27 min Precautions Precautions Yes/No Yes General Precautions Bed Alarm;Chair Alarm;Fall Risk Instructed on Precautions Yes Pain Pain Patient does not offer or c/o pain TRANSFERS Sit to Stand Contact guard assist Other (Comment) stand to sit with supervision Gait Gait Assistance Contact guard assist Assistive Device 2 Wheeled walker Ambulation Distance (Feet) 70' and 50' Pattern Shuffle steps Balance Sitting - Static Independent Sitting - Dynamic Independent Standing - Static SBA;Support of both upper extremities Standing - Dynamic CGA;Support of both upper extremities Exercises Sitting LE Exercise sitting B LE Ex x 10 reps each Patient/Family Training Transfer Training yes Gait Training yes Precautions yes Exercise Program yes PT Assessment PT Assessment Patient continues to make slow progress. Plan Progress Progressing toward goals PT plan for next session Continue PT increasing ex and mobility as tolerated. If this is the last treatment note,it will serve as the discharge summary Yes End of Session Safety End of Session Safety Chair alarm set/activated;Call light within reach * Sindy Escudero PT - 08/14/2019 11:08 AM CDT Patient continuing to make progress * Imelda Henley RN - 08/14/2019 1:39 AM CDT Problem: Reduced risk for falls/injury Goal: Reduced Risk for Falls/Injury Outcome: Progressing Goal: Reduced Risk of Altered Elimination Outcome: Progressing Goal: Reduced Risk of Dizziness/Vertigo/Balance Outcome: Progressing Problem: Mobility Goal: STG - Pt will ambulate Description Supervision with WW x100' for short community distances Outcome: Progressing Problem: Transfers Goal: STG - Pt will perform bed mobility Description With supervision Outcome: Progressing Goal: STG - Pt will perform sit to stand Description With supervision Outcome: Progressing * Shy Cosme MD - 08/13/2019 2:13 PM CDT Hospital Daily Progress Note History Complains of frequent runny nose and cough. Physical Exam Filed Vitals: 08/12/19 0300 08/12/19 0741 08/13/19 0500 08/13/19 0736 BP: 110/44 106/54 Pulse: 62 58 Resp: 18 16 Temp: 97.9 ??F (36.6 ??C) 98 ??F (36.7 ??C) TempSrc: Tympanic Tympanic SpO2: 95% 92% Weight: 56.6 kg (124 lb 12.5 oz) 56.9 kg (125 lb 7.1 oz) Intake/Output Summary (Last 24 hours) at 08/13/2019 1413 Last data filed at 08/13/2019 1300 Gross per 24 hour Intake 420 ml Output 1600 ml Net -1180 ml Physical Exam Constitutional: She is oriented to person, place, and time. She appears well- developed and well-nourished. HENT: Head: Normocephalic and atraumatic. Eyes: Conjunctivae are normal. Neck: Neck supple. Cardiovascular: Normal rate, regular rhythm and normal heart sounds. Pulmonary/Chest: Effort normal and breath sounds normal. No respiratory distress. She has no wheezes. Abdominal: Soft. Bowel sounds are normal. Musculoskeletal: Tenderness over right posterior lateral hip Neurological: She is alert and oriented to person, place, and time. Skin: Hematoma with tenderness right along iliac crest Lab Results Component Value Date NA 140 08/08/2019 K 4.4 08/08/2019 CL 104 08/08/2019 CO2 31.7 08/08/2019 AGAP 4.3 (L) 08/08/2019 BUN 15 08/08/2019 CR 1.09 (H) 08/08/2019 BUNCREATININ 13.8 08/08/2019 GFRNON 47 (L) 08/08/2019 GFR 54 (L) 08/08/2019 GLU 107 (H) 08/08/2019 CA 9.7 08/08/2019 Lab Results Component Value Date WBC 9.8 08/11/2019 HGB 11.7 (L) 08/11/2019 PLT 165 08/11/2019 Lab Results Component Value Date CHOL 164 07/16/2019 TRI 130 07/16/2019 HDL 52 07/16/2019 TP 6.9 07/30/2019 ALB 3.8 07/30/2019 ALT 68 (H) 07/30/2019 HGBA1C 6.5 (H) 07/13/2019 TSH 4.638 (H) 2019 Cultures: Blood: Results for orders placed or performed during the hospital encounter of 08/01/19 (from the past 168hour(s)) CULTURE, BACTERIA, BLOOD Collection Time: 08/11/19 10:01 AM Result Value Ref Range Spec. Description BLOOD Special Requests: NO SPECIAL REQUEST Culture Result: NO GROWTH 2 DAYS Urine: Results for orders placed or performed during the hospital encounter of 08/01/19 (from the past 168hour(s)) CULTURE URINE Collection Time: 08/10/19 11:45 AM Result Value Ref Range Spec. Description URINE CLEAN CATCH Special Requests: NO SPECIAL REQUEST Culture Result: >100,000 COL/ML KLEBSIELLA PNEUMONIAE (A) Susceptibility Klebsiella pneumoniae - FELIX (VITEK) AMPICILLIN >=32 Resistant AMPICILLIN/SULBACTAM 4 Sensitive CEFTRIAXONE <=1 Sensitive CEFTAZIDIME <=1 Sensitive CEFAZOLIN <=4 Sensitive ESBL NEG Sensitive NITROFURANTOIN <=16 Sensitive GENTAMICIN <=1 Sensitive LEVOFLOXACIN <=0.12 Sensitive PIPRACIL/TAZO <=4 Sensitive TRIMETH-SULFAMETH. <=20 Sensitive Respiratory: No results found. Imaging & Other Studies: CT Pelvis 08/07/2019: IMPRESSION: Redemonstration of multilobulated mass right gluteal subcutaneous tissues measuring 56 x 45 mm on today's examination, grossly similar in configuration, with decrease in amount of surrounding fat stranding. Nonspecific findings most consistent with subcutaneous hematoma. Degenerative changes lower lumbar spine. Bony pelvis and proximal femurs appear intact. Only mild degenerative changes present within the hips. Degenerative changes present within the SI joints and pubic symphysis. Vascular calcifications. CT Hip Right 08/07/2019: IMPRESSION: Bony structures appear grossly intact. Mild degenerative changes right hip. Should occult fracture be suspected, correlate with MRI. CT pel WO 07/30/19 Visualized portion of the bony pelvis and proximal femurs appear intact. Mild degenerative changes present within the hips. Degenerative changes noted within the pubic symphysis, SI joints and lower lumbar spine. Slight anterolisthesis L4-L5. Probable subcutaneous hematoma right gluteal soft tissues measuring approximately 5 cm. Hysterectomy. Diverticulosis. Atherectomy aorta. CT Head WO 07/30/19 No evidence of acute hemorrhage, mass effect or hydrocephalus. 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 Intracranial vascular calcifications. Unerupted right maxillary molar partially included. The visualized portions of the mastoid air cells and middle ears are clear. CT C -spine WO 07/30/19 C1 through T1 are intact. Normal vertebral body heights. Reversal of cervical lordosis. Slight anterolisthesis C4-C5. Multilevel degenerative disc disease with loss of disc height, endplate and facet hypertrophy. Multilevel foraminal narrowing. Chronic changes involving the C1 to joint, anteriorly. Mild carotid bifurcation vascular calcifications.. Visualized portions of lung apices, mastoid air cells and middle ears are Aerated. CXR 07/30/19 No evidence of acute cardiopulmonary disease. Mildly atherosclerotic aorta without cardiomegaly. Lungs are clear. No pneumothorax or pleural effusion. Chronic changes within the shoulders and spine including a compression deformity noted L1 vertebralbody, also demonstrated on the 07/03/2019 CT abdomen and pelvis. Assessment/Plan: Hospital Course:??84-year-old??female??presented with presyncope and fall with hyponatremia and hypokalemia. ??Likely secondary to hydrochlorothiazide that will was discontinued. ??Continue with Lasix and potassium, benazepril, and Norvasc. Admitted for deconditioning to swing bed. ?? A/P Physical Deconditioning Continues to improve in terms of walking distance Presyncope with fall and electrolyte abnormalities??of hypokalemia and hyponatremia Suspect iatrogenic secondary to??Lasix and possibly hydrochlorothiazide/Lasix/amlodipine Troponins negative stable on telemetry on Norvasc, benazepril, Lasix Stopped hydrochlorothiazide. Goals 08/16/2019 Right hip hematoma S/p fall Noted on CT 07/29; brusing stable H&H stable Hemodynamically stable Noted hematoma on exam over right ilium area that is soft but appears walled off? hemtoma vs fluid collection Repeat CT scan stable 08/12: Stable in size ?? Diabetes ADA diet if pt allows SSI for tight glycemic control Avoid Metformin while inpatient 08/12. Glucoses well controlled Dysuria, UTI: Noted 08/09 Check UA UA suggestive of UTI Start Keflex Await urine culture 08/12: >100 K Klebsiella pneumoniae Continue Keflex for 7 days HTN Resumed??Lasix, amlodipine, AGNEL inhibitor, monitor trend Stopped HCTZ as above. 08/12: BP low normal DC amlodipine for now if resumed 2.5 mg dose if necessary ?? Hyperlipidemia Continue current regimen ?? Hypothyroidism Cont current regimen ?? Depression Appears stable continue current regimen ?? Insomnia On trazodone may be contributing consider holding if patient complies Rhinitis ?? DVT Prophylaxis Heparin Subcutaneous, SCD. ?? Advanced care full code Plan Continue PT OT And treatment nasal spray 0.03% 2 puffs twice daily as needed DC planning SHY COSME MD * Imelda Henley RN - 08/13/2019 12:32 AM CDT Problem: Reduced risk for falls/injury Goal: Reduced Risk for Falls/Injury Outcome: Progressing Goal: Reduced Risk of Altered Elimination Outcome: Progressing Goal: Reduced Risk of Dizziness/Vertigo/Balance Outcome: Progressing Problem: Mobility Goal: STG - Pt will ambulate Description Supervision with WW x100' for short community distances Outcome: Progressing Problem: Transfers Goal: STG - Pt will perform bed mobility Description With supervision Outcome: Progressing Goal: STG - Pt will perform sit to stand Description With supervision Outcome: Progressing * Imelda Henley RN - 08/12/2019 12:34 AM CDT Problem: Reduced risk for falls/injury Goal: Reduced Risk for Falls/Injury Outcome: Progressing Goal: Reduced Risk of Altered Elimination Outcome: Progressing Goal: Reduced Risk of Dizziness/Vertigo/Balance Outcome: Progressing Problem: Mobility Goal: STG - Pt will ambulate Description Supervision with WW x100' for short community distances Outcome: Progressing Problem: Transfers Goal: STG - Pt will perform bed mobility Description With supervision Outcome: Progressing Goal: STG - Pt will perform sit to stand Description With supervision Outcome: Progressing * June Laughlin, PT - 08/11/2019 3:29 PM CDT Patient is progressing towards all of her goals at this time * June Laughlin, PT - 08/11/2019 3:28 PM CDT 08/11/19 1522 Therapy Visit Subjective Patient was seated in recliner at the beginning of the session and she agrees to participate in therapy. She reports that she would like to get into bed after the session Verified Two Patient Identifiers Yes Patient consents to therapy Yes Acute Inpatient PT Time Calculation PT Start Time 1318 PT Stop Time 1336 PT Time Calculation (min) 18 min Precautions Precautions Yes/No Yes General Precautions Bed Alarm;Chair Alarm;Fall Risk Instructed on Precautions Yes Other [place], Abrasion to Rhip Pain Pain Patient does not offer or c/o pain Activity Tolerance Endurance Tolerates 10 - 20 min activity with rests Cognition Overall Cognitive Status WFL Bed Mobility Sit to Supine Min assist to right (to lift LE onto the bed ) Other (Comment) Patien continues to require assist to lift LE onto the bed TRANSFERS Sit to Stand Contact guard assist (from recliner with increased time. ) Other (Comment) STS from EOB supervision. Stand to sit supervision/CGA for safety Gait Gait Assistance SBA/supervision;Contact guard assist Assistive Device 2 Wheeled walker Ambulation Distance (Feet) 120' x2 Pattern Shuffle steps Weight Bearing Status Total Balance Sitting - Static Independent Sitting - Dynamic Independent Standing - Static SBA;Support of both upper extremities Standing - Dynamic CGA;SBA;Support of both upper extremities Exercises Ankle Pumps x10 B reclined Quad Sets x10 B reclined Hip Abduction x10 B reclined, no Assist needed Sitting LE Exercise LAQ x 10 B no assist needed Patient/Family Training Bed Mobility x Transfer Training x Gait Training x Precautions x Exercise Program x PT Assessment PT Assessment Patient continues to require assist with bed mobility. Endurance is slowly improving,but patient requires supervision/CGA for safety Plan Progress Progressing toward goals PT plan for next session Cont PT per POC If this is the last treatment note,it will serve as the discharge summary Yes End of Session Safety End of Session Safety Bed alarm set/activated;Call light within reach End of Session Comment Ended the session with patient supine in bed * June Laughlin PT - 08/11/2019 3:22 PM CDT 08/11/19 1500 Therapy Visit Subjective Family care plan meeting held in the patient's room with the patient, CM, Pastoral care and the patient's daughter on the phone. Educated the patient and her daughter on patient's progressin therapy asnd recommendations for D/C. PT and OT recommend home with Assist, but daughter reportsthe room at her house will not be ready for the patient byt D/C date. PT expressed concerns about quintin aparicio returning to her apartment alone, and recommended caregivers. The family verbalized that the patient would not need caregivers and she will check on the patient every other day. Medical alert system was recommended and the family was agreeable, along with HH OT/PT/nursing/bath aid. Patient isto move in with her daughter when the room is ready at her home. The patient and family had no furth er questions or concerns at this time. Verified Two Patient Identifiers Yes Patient consents to therapy Yes Acute Inpatient PT Time Calculation PT Start Time 1303 PT Stop Time 1317 PT Time Calculation (min) 14 min * AMANDA Blum - 08/11/2019 2:26 PM CDT Interdisciplinary Team conference held. In attendance; case management, UR, nursing, PT, OT, cardiopulmonary, REPORTING MANAGER, Hospitalist, Pastoral Care, and Pharmacy. Meeting held at 11:00. Continue with PT goals through 08/16/2019. Family meeting held today at 1300 in patient room. In attendance; Case Management, Therapy, Patient, and Patient's daughter, Krystina (on speaker phone). Discussed therapy goals and progress. Patient is progressing well with therapy and will be ready for DC 08/15. Patient daughter Krystina reports theroom is not finished yet and therefore patient will need to return to her apartment. Patient has meals on wheels and will be set up with [facility] home health at discharge. Once Krystina gets the room finished patient will be moving in with her. * Va Rios PTA - 08/11/2019 1:10 PM CDT 08/11/19 1300 Therapy Visit Ordering Provider Dr. Hubbard Subjective Pt reported not feeling well. Has a UTI and is running a feveer, also c/o stomach ache. Reason for admission DX: CLAUDIO. Fell in kitchen 07/30/19 and brought to ER. Transitioned to swing bed at [facility] on 08/01/2019. Relevant Comorbidities/ Personal Factors to PT PMH includes at [facility] 06/22-07/18/19 for bactremia, UTI,CA, DM, GERD, HTN, HLD, hypothyroid, insomnia, sepsis, nu, hyst, RTC repair. Transfer to swing bed 08/01/19. Verified Two Patient Identifiers Yes Patient consents to therapy Yes Acute Inpatient PT Time Calculation PT Start Time 0943 PT Stop Time 1007 PT Time Calculation (min) 24 min Precautions Precautions Yes/No Yes General Precautions Chair Alarm Instructed on Precautions Yes Pain Pain Patient does not offer or c/o pain Activity Tolerance Endurance Tolerates 20 - 30 min activity with rests Cognition Overall Cognitive Status WFL Arousal/Alertness Appropriate responses to stimuli Attention Span Appears intact Memory Appears intact Orientation Level Oriented X4 Following Commands Follows one step commands with repetition Safety Judgment Good awareness of safety precautions Other (Comment) [place] TRANSFERS Sit to Stand Contact guard assist Bed to Chair Contact guard assist Gait Gait Assistance Contact guard assist;SBA/supervision Assistive Device 2 Wheeled walker Ambulation Distance (Feet) 60'x1 Pattern Shuffle steps Weight Bearing Status Total Balance Sitting - Static Independent Sitting - Dynamic Independent Standing - Static SBA;Support of both upper extremities Standing - Dynamic CGA;SBA;Support of both upper extremities Exercises Ankle Pumps x10 Knee ROM LAQ x 10 each Hip Flexion Marches x 10 each Patient/Family Training Bed Mobility x Transfer Training x Gait Training x Precautions x Exercise Program x PT Assessment PT Assessment Pt clearly not feeling well but still agreeable to participate in PT as able. Modified Luz Maria Score Interval Daily Recommendation PT Recommendation Swing Bed Unit PT Equipment Recommended Currently has DME in Place OT Recommendation Home OT;Home with assistance;Other (Comment) OT Equipment Recommended Currently has DME in Place Plan Progress Progressing toward goals If this is the last treatment note,it will serve as the discharge summary Yes End of Session Safety End of Session Safety Chair alarm set/activated End of Session Comment Ended session with pt reclined in harpreet chair. * Mini Tillman OT - 08/11/2019 12:05 PM CDT 08/11/19 1100 Therapy Visit OT Received On 08/11/19 Reason for admission DX: CLAUDIO. Fell in kitchen 07/30/19 and brought to ER. Transitioned to swing bed at [facility] on 08/01/2019. Comorbidities Relevant to OT PMH includes at [facility] 06/22-07/18/19 for bactremia, UTI. PMH sig for CA, DM, GERD, HTN, HLD, hypothyroid, insomnia, sepsis, nu, hyst, RTC repair. Previous Occupational Therapy Inpatient Therapy;Home care Ordering Provider Dr. Hubbard Verified Two Patient Identifiers Yes Patient consents to therapy Yes Acute Inpatient OT Time Calculation OT Start Time 08 OT Stop Time 0854 OT Time Calculation (min) 23 min Precautions Precautions Yes/No Yes General Precautions Chair Alarm Instructed on Precautions Yes Skin Integrity Bruising to R hip and R lower back Subjective Subjective Patient reports she is feeling tired today . Pain Pain Patient does not offer or c/o pain Activity Tolerance Endurance Tolerates 20 - 30 min activity with rests Activity Tolerance Comments Rest breasks during ADLS session due to fatigue Vision - Basic Assessment Current Vision Wears glasses Cognition Overall Cognitive Status WFL Other (Comment) [place] ADL Grooming Assistance Sitting in chair Grooming Deficit Setup Grooming Comment Completed combing hair, washing face and hands while seated on armless shower chair at sinkside Bathing Assistance Alternating sit/stand;CGA Bathing Deficit Setup;Steadying;Supervision/safety Bathing Comment spongebathing while seated on armless shower chair. Setup/SBA for UB in sitting. Distal reach of lower legs and feet in sitting with min extra time with min A for stabilizing leg whencrossing. CGA for standing components with ww to attend to emerson area and buttocks for balance/steadying. UE Dressing Assistance Minimal;Sitting in chair UE Dressing Deficit Setup;Supervision/safety UE Dressing Comment to [facility] LE Dressing Assistance Minimal LE Dressing Deficit Setup;Steadying;Requires assistive device for steadying;Supervision/safety LE Dressing Comment Patient was able to doff B non skid footies via crossing leg with min A for steadying leg when crossing with min extra time. Patient required assistance with donning of R sock (total). Donned L sock with min A. Functional Transfers Sit to Stand Contact guard assist Bed to Chair Contact guard assist Patient/Family Training Self Cares compensatory techniques to promote independence and saferty Transfer Training proper hand placement for increased safety Recommendation OT Recommendation Home OT;Home with assistance OT Equipment Recommended Currently has DME in Place Plan OT Treatment/Intervention Self-care training Progress Progressing toward goals OT Frequency 4 times/week;5 times/week If this is the last treatment note, it will serve as the discharge summary Yes End of Session Safety End of Session Safety Chair alarm set/activated;Nursing aware of session * Va Rios, GENI - 08/10/2019 4:16 PM CDT 08/10/19 1500 Therapy Visit Ordering Provider Dr. Hubbard Reason for admission DX: CLAUDIO. Fell in kitchen 07/30/19 and brought to ER. Transitioned to swing bed at [facility] on 08/01/2019. Relevant Comorbidities/ Personal Factors to PT PMH includes at [facility] 06/22-07/18/19 for bactremia, UTI,CA, DM, GERD, HTN, HLD, hypothyroid, insomnia, sepsis, nu, hyst, RTC repair. Transfer to swing bed 08/01/19. Verified Two Patient Identifiers Yes Patient consents to therapy Yes Acute Inpatient PT Time Calculation PT Start Time 1526 PT Stop Time 1550 PT Time Calculation (min) 24 min Precautions Precautions Yes/No Yes General Precautions Chair Alarm Instructed on Precautions Yes Skin Integrity Bruising to R hip Pain Pain No Activity Tolerance Endurance Tolerates 20 - 30 min activity with rests Activity Tolerance Comments Pt reported fatigue at end of session Cognition Overall Cognitive Status WFL Arousal/Alertness Appropriate responses to stimuli Attention Span Appears intact Memory Appears intact Orientation Level Oriented X4 Following Commands Follows one step commands with repetition Safety Judgment Good awareness of safety precautions Other (Comment) [place] Bed Mobility Supine to Sit SBA/supervision Sit to Supine SBA/supervision Other (Comment) Pt required vc but did much better getting in and out of bed on the R side (Pt required vc but did better in and out of bed on R side) TRANSFERS Stand Pivot Transfers Contact guard assist Sit to Stand Contact guard assist Bed to Chair Contact guard assist Other (Comment) Stand to sit: supervision. Toilet trans: Patient required CGA to stand from toilet and min assist to perform thorough hygiene Gait Gait Assistance Contact guard assist;SBA/supervision Assistive Device 2 Wheeled walker Ambulation Distance (Feet) 120' x 2, 30' Pattern Shuffle steps Weight Bearing Status Total Other (Comment) decreasd yasmin, V/C to improve step length Balance Sitting - Static Independent Sitting - Dynamic Independent Standing - Static SBA;Support of both upper extremities Standing - Dynamic CGA;SBA;Support of both upper extremities Exercises Ankle Pumps x20 Heelslides x10 Knee ROM LAQ x 10 each Straight Leg Raise x5 indep Hip Flexion Marches x 10 each Patient/Family Training Bed Mobility x Transfer Training x Gait Training x Precautions x Exercise Program x PT Assessment PT Assessment Pt making good progress with current Rx. Modified [place] Score Interval Daily Recommendation PT Recommendation Swing Bed Unit PT Equipment Recommended Currently has DME in Place OT Recommendation Home OT;Home with assistance;Other (Comment) OT Equipment Recommended Currently has DME in Place Barriers to Community Discharge Safety Plan PT Treatments/Interventions Gait Training;Therapeutic Exercises;Therapeutic Activities;Neuromuscular re-education;Patient/family training Progress Progressing toward goals PT plan for next session Practice bed mobility If this is the last treatment note,it will serve as the discharge summary Yes End of Session Safety End of Session Safety Chair alarm set/activated End of Session Comment Ended session with pt reclined in the harpreet chair. Call light accesable * Mini Tillman, ALICIA - 08/10/2019 1:13 PM CDT Patient progressing towards goals. CGA for transfers/mobiltiy w/ww Setup/SBA grooming UB bathe/dress SBA/min A LB ADLS min/mod A * Mini Tillman OT - 08/10/2019 1:11 PM CDT 08/10/19 1200 Therapy Visit OT Received On 08/10/19 Reason for admission DX: CLAUDIO. Fell in kitchen 07/30/19 and brought to ER. Transitioned to swing bed at [facility] on 08/01/2019. Comorbidities Relevant to OT PMH includes at [facility] 06/22-07/18/19 for bactremia, UTI. PMH sig for CA, DM, GERD, HTN, HLD, hypothyroid, insomnia, sepsis, nu, hyst, RTC repair. Previous Occupational Therapy Inpatient Therapy;Home care Ordering Provider Dr. Hubbard Verified Two Patient Identifiers Yes Patient consents to therapy Yes Acute Inpatient OT Time Calculation OT Start Time 816 OT Stop Time 0845 OT Time Calculation (min) 28 min Precautions Precautions Yes/No Yes General Precautions Bed Alarm;Chair Alarm;Fall Risk Instructed on Precautions Yes Skin Integrity bruising to R hip and lower back. Bordered gauze dressing present to R lower back Subjective Subjective Patient reports she is ready to get out of bed this AM. Pain Pain No Activity Tolerance Endurance Tolerates 20 - 30 min activity with rests Activity Tolerance Comments Patient reports fatigue at end of ADL session Vision - Basic Assessment Current Vision Wears glasses Cognition Overall Cognitive Status WFL Orientation Level Oriented X4 Other (Comment) [place] ADL Grooming Assistance Sitting in chair Grooming Deficit Setup Grooming Comment Completed combing hair, washing face and hands while seated on armless shower chair at sinkside Bathing Assistance Alternating sit/stand;CGA Bathing Deficit Setup;Steadying;Supervision/safety Bathing Comment spongebathing while seated on armless shower chair. Setup/SBA for UB in sitting. Distal reach of lower legs and feet in sitting with min extra time with min A for stabilizing leg whencrossing. CGA for standing components with ww to attend to emerson area and buttocks for balance/steadying. UE Dressing Assistance Minimal;Sitting in chair UE Dressing Deficit Setup;Supervision/safety UE Dressing Comment to don/rip [facility] LE Dressing Assistance Minimal LE Dressing Deficit Setup;Steadying;Requires assistive device for steadying;Supervision/safety (don R sock) LE Dressing Comment Patient was able to doff B non skid footies via crossing leg with min A for steadying leg when crossing with min extra time. Patient required assistance with donning of R sock (total). Donned L sock with min A. Toileting Assistance CGA Toileting Deficit Supervision/safety Toileting Comment Utilized standard toilet for toileting w/ grab bar. Completes hygiene while seated on toilet w/ SBA. Did not complete clothing mgmt. over hips as pt. was not wearing briefs/underwear yet. Bed Mobility Supine to Sit SBA/supervision (to the left with bedrail use ) Functional Transfers Sit to Stand Contact guard assist Bed to Chair Contact guard assist (with ww) Toilet Transfers CGA;Grab bars;Additional time Other (Comment) CGA w/ stand/sit transfers. Needs vc's for hand placement w/ transfers. Assessment Prognosis Good OT Assess/Eval Other (Comment) Patient performing all functional transfers and mobility with CGA utilizing wheeled walker. Patient deisplays increased independence wtih doff/don non skid footies thisdate. Patient declined mesh underwear as they irritated me. Patient with improved tolerance from previous ADL session on Wednesday 5/5 AM. She continues to benefit from skilled OT. Patient/Family Training Self Cares compensatory techniques to promote independence and saferty Transfer Training proper hand placement for increased safety Recommendation OT Recommendation Home OT;Home with assistance;Other (Comment) OT Equipment Recommended Currently has DME in Place Plan OT Treatment/Intervention Self-care training Progress Progressing toward goals OT Frequency 4 times/week;5 times/week If this is the last treatment note, it will serve as the discharge summary Yes End of Session Safety End of Session Safety Call light within reach;Nursing aware of session * Tori Coon, MIKE - 08/10/2019 10:26 AM CDT Hospitalist Progress Note Roxana Ch is a 84-year-old female patient. Subjective: Ms. Ch is sitting upright in chair when evaluated. She tells me she is doing okay. She continues to have protruding hematoma to right hip. This was evaluated by CT a few days ago, appeared stable. She did not report to be but overhead a conversation patient was having about burning with urination. Will check UA. Current Facility-Administered Medications Medication Dose Route Frequency Provider Last Rate Last Dose ??? acetaminophen (TYLENOL) tablet 650 mg 650 mg Oral Q4H PRN Emiliano Hubbard MD 650 mg at 08/01/200255 ??? amLODIPine (NORVASC) tablet 5 mg 5 mg Oral Daily Emiliano Hubbard MD 5 mg at 08/10/19902 ??? aspirin EC (ECOTRIN) tablet 81 mg 81 mg Oral Daily Emiliano Hubbard MD 81 mg at 08/10/19 0902 ??? docusate sodium (COLACE) capsule 100 mg 100 mg Oral BID Emiliano Hubbard MD 100 mg at 08/09/19 0909 ??? donepezil (ARICEPT) tablet 10 mg 10 mg Oral QAM Emiliano Hubbard MD 10 mg at 08/10/19 0618 ??? famotidine (PEPCID) injection 20 mg 20 mg Intravenous Daily Ciarra Cancino APRN Or ??? famotidine (PEPCID) tablet 20 mg 20 mg Oral Daily Ciarra Cancino APRN 20 mg at 08/10/19902 ??? furosemide (LASIX) tablet 20 mg 20 mg Oral Daily Emiliano Hubbard MD 20 mg at 08/10/19 0902 ??? heparin (porcine) injection 5,000 Units 5,000 Units Subcutaneous BID Emiliano Hubbard MD 5,000 Units at 08/10/19 0903 ??? insulin lispro (HUMALOG) injection 0-14 Units 0-14 Units Subcutaneous TID AC Emiliano Hubbard MD4 Units at 08/09/19 1233 ??? insulin lispro (HUMALOG) injection 0-7 Units 0-7 Units Subcutaneous Nightly at bedtime Emiliano Hubbard MD ??? levothyroxine (SYNTHROID) tablet 50 mcg 50 mcg Oral Once per day on Sun Sat Emiliano Hubbard MD 50 mcg at 08/06/19 0645 ??? lisinopril (PRINIVIL) tablet 5 mg 5 mg Oral Daily Emiliano Hubbard MD 5 mg at 08/10/19 0903 ??? magnesium hydroxide (MILK OF MAGNESIA) 400 MG/5ML suspension 30 mL 30 mL Oral Nightly PRN Emiliano Hubbard MD ??? ondansetron (ZOFRAN) injection 4 mg 4 mg Intravenous Q8H PRN Emiliano Hubbard MD ??? polyethylene glycol (GLYCOLAX) packet 17 g 17 g Oral Daily PRN Emiliano Hubbard MD ??? potassium chloride CR (KLOR-CON M) tablet 10 mEq 10 mEq Oral Daily Emiliano Hubbard MD 10 mEq at08/10/19 0902 ??? pravastatin (PRAVACHOL) tablet 40 mg 40 mg Oral Nightly at bedtime Emiliano Hubbard MD 40 mg at 08/09/192021 ??? sertraline (ZOLOFT) tablet 100 mg 100 mg Oral QAM Emiliano Hubbard MD 100 mg at 08/10/19 0618 ??? traZODone (DESYREL) tablet 50 mg 50 mg Oral Nightly PRN Emiliano Hubbard MD ??? traZODone (DESYREL) tablet 50 mg 50 mg Oral Nightly at bedtime Emiliano Hubbard MD 50 mg at 08/09/192021 ??? vitamin D3 (cholecalciferol) tablet 2,000 Units 2,000 Units Oral Daily Emiliano Hubbard MD 2,000Units at 08/10/19 0902 Allergies Allergen Reactions ??? Septra [Sulfamethoxazole-Trimethoprim] Rash ROS: 14 point ROS Negative except for as noted in HPI. Objective: Filed Vitals: 08/09/19 0549 08/09/19 0920 08/10/19 0334 08/10/19 0700 BP: 108/44 116/52 Pulse: 67 59 Resp: 20 18 Temp: 98.4 ??F (36.9 ??C) 98.5 ??F (36.9 ??C) TempSrc: Tympanic Tympanic SpO2: 94% 92% Weight: 56.3 kg (124 lb 1.9 oz) 56.4 kg (124 lb 5.4 oz) Physical Exam: GEN: In no acute distress. Breathing comfortably on room air. HEENT: Clear conjunctiva. Mucous membranes moist. CHEST: CTA, no wheezes or crackles. CVS: RRR, no MRG. Abd: Soft, NT. Ext: No edema. SKIN: Warm, dry. No rashes or ulcers. PSYCH: Appropriate affect NEURO: Alert and oriented. CNII-XII grossly intact LABS: Recent Labs Lab 08/05/19 0608/07/19 1616 08/08/19 0648 NA 140 138 140 K 3.9 4.0 4.4 CL 104 102 104 CO2 28.3 29.9 31.7 AGAP 7.7 6.1 4.3* BUN 12 14 15 CR 0.98 0.97 1.09* BUNCREATININ 12.2 14.4 13.8 GFRNON 53* 54* 47* GFR 61* 62* 54* GLU 100* 110* 107* CA 9.1 9.6 9.7 Recent Labs Lab 08/05/19 0608/07/19 1616 08/08/19 0648 WBC 4.6 5.4 4.5 RBC 3.93* 4.02* 4.09* HGB 11.5* 11.7* 11.9* HCT 34.5* 35.7* 36.4 MCV 87.8 88.8 89.0 MCH 29.3 29.1 29.1 MCHC 33.3 32.8 32.7 PLT 189 198 202 RDW 14.0 14.2 14.5 MPV 9.4* 9.1* 9.3* PERNEU 71.0 74.0* 74.1* PERLYM 17.7 15.2* 14.4* PERMON 7.3 7.2 7.7 LYMC 0.82 0.82 0.65* Imaging & Other Studies: CT Pelvis 08/07/2019: IMPRESSION: Redemonstration of multilobulated mass right gluteal subcutaneous tissues measuring 56 x 45 mm on today's examination, grossly similar in configuration, with decrease in amount of surrounding fat stranding. Nonspecific findings most consistent with subcutaneous hematoma. Degenerative changes lower lumbar spine. Bony pelvis and proximal femurs appear intact. Only mild degenerative changes present within the hips. Degenerative changes present within the SI joints and pubic symphysis. Vascular calcifications. CT Hip Right 08/07/2019: IMPRESSION: Bony structures appear grossly intact. Mild degenerative changes right hip. Should occult fracture be suspected, correlate with MRI. CT pel WO 07/30/19 Visualized portion of the bony pelvis and proximal femurs appear intact. Mild degenerative changes present within the hips. Degenerative changes noted within the pubic symphysis, SI joints and lower lumbar spine. Slight anterolisthesis L4-L5. Probable subcutaneous hematoma right gluteal soft tissues measuring approximately 5 cm. Hysterectomy. Diverticulosis. Atherectomy aorta. CT Head WO 07/30/19 No evidence of acute hemorrhage, mass effect or hydrocephalus. 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 Intracranial vascular calcifications. Unerupted right maxillary molar partially included. The visualized portions of the mastoid air cells and middle ears are clear. CT C -spine WO 07/30/19 C1 through T1 are intact. Normal vertebral body heights. Reversal of cervical lordosis. Slight anterolisthesis C4-C5. Multilevel degenerative disc disease with loss of disc height, endplate and facet hypertrophy. Multilevel foraminal narrowing. Chronic changes involving the C1 to joint, anteriorly. Mild carotid bifurcation vascular calcifications.. Visualized portions of lung apices, mastoid air cells and middle ears are Aerated. CXR 07/30/19 No evidence of acute cardiopulmonary disease. Mildly atherosclerotic aorta without cardiomegaly. Lungs are clear. No pneumothorax or pleural effusion. Chronic changes within the shoulders and spine including a compression deformity noted L1 vertebralbody, also demonstrated on the 07/03/2019 CT abdomen and pelvis. Assessment/Plan: Hospital Course:??84-year-old??female??presented with presyncope and fall with hyponatremia and hypokalemia. ??Likely secondary to hydrochlorothiazide that will was discontinued. ??Continue with Lasix and potassium, benazepril, and Norvasc. Admitted for deconditioning to swing bed. ?? A/P Presyncope with fall and electrolyte abnormalities??of hypokalemia and hyponatremia Suspect iatrogenic secondary to??Lasix and possibly hydrochlorothiazide/Lasix/amlodipine Troponins negative stable on telemetry on Norvasc, benazepril, Lasix Stopped hydrochlorothiazide. Goals 08/16/2019 Right hip hematoma S/p fall Noted on CT 07/29; brusing stable H&H stable Hemodynamically stable Noted hematoma on exam over right ilium area that is soft but appears walled off? hemtoma vs fluid collection Repeat CT scan stable ?? Diabetes ADA diet if pt allows SSI for tight glycemic control Avoid Metformin while inpatient Dysuria, UTI: Noted 08/09 Check UA UA suggestive of UTI Start Keflex Await urine culture ?? HTN Resumed??Lasix, amlodipine, ANGEL inhibitor, monitor trend Stopped HCTZ as above. ?? Hyperlipidemia Continue current regimen ?? Hypothyroidism Cont current regimen ?? Depression Appears stable continue current regimen ?? Insomnia On trazodone may be contributing consider holding if patient complies ?? DVT Prophylaxis Heparin Subcutaneous, SCD. ?? Advanced care full code TORI COON NP 08/10/2019 * Mary Dickey, ALICIA - 08/09/2019 4:03 PM CDT 08/09/19 1600 Subjective Subjective No OT this date due to therapist unavailable/time constraints. * Marcin Rodriguez RD - 08/09/2019 1:37 PM CDT Dietitian Nutrition Assessment Roxana Ch, 1935, 84-year-old female admitted for No admission diagnoses are documented for this encounter.. Nutrition Recommendations: Nutrition Diagnosis: Altered nutrition related laboratory values related to endocrine dysfunction as evidenced by elevated blood glucose levels Nutrition Intervention: Food and/or nutrient delivery Change diet to 60gm Carbohdyrate control diet. Nutrition Prescription: Recommend to continue a carb control diet to better improve blood glucose levels Nutrition Monitoring and Evaluation: blood glucose levels and knowledge of carb control diet Past Medical History Past Medical History: Diagnosis Date ??? Cancer (CMS/HCC) Past cancer survivor. ??? Diabetes (CMS/[facility]) ??? GERD (gastroesophageal reflux disease) ??? Hyperlipidemia ??? Hypertension ??? Hypothyroidism ??? Insomnia ??? Sepsis (CMS/HCC) ??? Vitamin D deficiency Referral From: Nutrition Screening Assessment: Initial Assessment Anthropometrics: Wt Readings from Last 3 Encounters: 08/09/19 56.3 kg (124 lb 1.9 oz) 08/01/19 59.1 kg (130 lb 4.7 oz) 07/19/19 60.8 kg (134 lb) Ht Readings from Last 1 Encounters: 07/30/19 5' 3.5 (1.613 m) Body mass index is 21.64 kg/m??. BMI Assessment: Normal [place] Body Weight: 115# Percent [place] Body Weight: 107% Usual Body Weight:139# Percent Usual Body Weight: 89% Percent Weight Loss: 10% (question accuracy possibly due to fluid) Nutrition: Current Diet Order: Diet general Appropriate Diet Comment: not able to speak with patient at this time Chewing/swallowing problems: No Food allergies/intolerances: none Cultural/Synagogue food preferences: none Current diet appropriate? Yes Current intake sufficient to meet nutritional needs? Yes Pain affecting PO intake? No Estimated Nutrient Needs: Calories: 1400 kcal/day, based on 25 kcal/kg Protein: 56 gm/day, based on 1.0gm/kg Labs: HGB A1C Date Value Ref Range Status 07/13/2019 6.5 (H) <5.7 % Final Comment: INCREASED RISK OF DIABETES <5.7% NON-DIABETES 5.7-6.4% INCREASED RISK FOR FUTURE DIABETES > OR = 6.5 CONSISTENT WITH DIABETES STANDARDS OF MEDICAL CARE IN DIABETES-2010 DIABETES CARE, 33(SUPP 1): S1-S61,2010 Nutrition Risk: Medium Discharge nutrition plan: Discharge needs assessed. Will provide/update discharge instructions as needed. (See Nutrition Prescription above) MARCIN RODRIGUEZ RD 08/09/19, 1:37 PM * June Laughlin, PT - 08/09/2019 1:34 PM CDT 08/09/19 1300 Therapy Visit Subjective Patient was seated in recliner on arrival to the room. She reports that she should probabaly try to use the restroom. Verified Two Patient Identifiers Yes Patient consents to therapy Yes Acute Inpatient PT Time Calculation PT Start Time 1253 PT Stop Time 1325 PT Time Calculation (min) 32 min Precautions Precautions Yes/No Yes General Precautions Bed Alarm;Chair Alarm;Fall Risk Instructed on Precautions Yes Other Abrasion R hip Pain Pain Patient does not offer or c/o pain Activity Tolerance Endurance Tolerates 20 - 30 min activity with rests Cognition Overall Cognitive Status WFL Other (Comment) [place] Bed Mobility Sit to Supine Min assist to right (to lift LE onto the bed ) TRANSFERS Sit to Stand Contact guard assist (from recliner) Other (Comment) Stand to sit: supervision. Toilet trans: Patient required CGA to stand from toilet and min assist to perform thorough hygiene Gait Gait Assistance Contact guard assist;SBA/supervision Assistive Device 2 Wheeled walker Ambulation Distance (Feet) 120' x 2, 30' Pattern Shuffle steps Weight Bearing Status Total Other (Comment) decreasd yasmin, V/C to improve step length Balance Sitting - Static Independent Sitting - Dynamic Independent Standing - Static SBA;Support of both upper extremities Standing - Dynamic CGA;SBA;Support of both upper extremities Exercises Ankle Pumps x10 B Short Arc Quad x10 B Heelslides x10 B with assist Straight Leg Raise x10 B with assist Glut Sets x10 B Hip Abduction x10 B with assist Other (Comment) Patient performed all exercises while supine in bed Patient/Family Training Bed Mobility x Transfer Training x Gait Training x Precautions x Exercise Program x PT Assessment PT Assessment Patient was able to AMB with less assist this PM and demosntrates good balance when using the ww for UE support. Plan Progress Progressing toward goals PT plan for next session Cont PT per POC If this is the last treatment note,it will serve as the discharge summary Yes End of Session Safety End of Session Safety Bed alarm set/activated;Call light within reach End of Session Comment Ended session with patient supine in bed * June Laughlin, PT - 08/09/2019 11:45 AM CDT 08/09/19 1100 Therapy Visit Subjective Patient was seated in recliner on arrival to the room and agrees to participate in therapy Verified Two Patient Identifiers Yes Patient consents to therapy Yes Acute Inpatient PT Time Calculation PT Start Time 1011 PT Stop Time 1036 PT Time Calculation (min) 25 min Precautions Precautions Yes/No Yes General Precautions Bed Alarm;Chair Alarm;Fall Risk Instructed on Precautions Yes Other Abrasion R hip Pain Pain Patient does not offer or c/o pain Activity Tolerance Endurance Tolerates 20 - 30 min activity with rests Activity Tolerance Comments Patient was fatigued after AMB and required increased assistance to perform bed mobility. Cognition Overall Cognitive Status WFL Other (Comment) [place] Bed Mobility Supine to Sit Min assist to right (min A to advance LE and to lift trunk into sitting ) Sit to Supine Min assist to left (to lift legs into the bed ) Other (Comment) Patient required assist with bed mobility TRANSFERS Sit to Stand Contact guard assist Other (Comment) Stand to sit: Supervision. Patient performed toilet transfer with CGA for safety. She was able to perform hygiene with min A. Gait Gait Assistance Contact guard assist;SBA/supervision Assistive Device 2 Wheeled walker Ambulation Distance (Feet) 150' Pattern Shuffle steps Weight Bearing Status Total Other (Comment) Slow yasmin Balance Sitting - Static Independent Sitting - Dynamic Independent Standing - Static SBA;Support of both upper extremities Standing - Dynamic CGA;SBA;Support of both upper extremities Exercises Ankle Pumps x10 B Quad Sets x10 B Glut Sets x10 B Hip Abduction x10 B with assist Other (Comment) Performed exercises with patient reclined in chair Patient/Family Training Bed Mobility x Transfer Training x Gait Training x Precautions x Exercise Program x Other (Comment) Progress in therapy PT Assessment PT Assessment Patient continues to fatigue quickly with AMB and other functional mobility. She requires assist and increased time to perform bed mobility this session. Once standing with UE support through ww, that patient has good balance. SHe is progressing towards her AMB, bed mobility and transfers goals at this time. Plan Progress Progressing toward goals PT plan for next session Cont PT per POC If this is the last treatment note,it will serve as the discharge summary Yes End of Session Safety End of Session Safety Chair alarm set/activated;Call light within reach End of Session Comment Ended session with patient seated in recliner * June Laughlin, PT - 08/09/2019 11:45 AM CDT Patient has not met any of her goals at this time. She is progressing towards all of her goals. * Va Rios, FARROWING WORKER - 08/08/2019 2:21 PM CDT 08/08/19 1300 Therapy Visit Ordering Provider Dr. Hubbard Subjective Pt reported being tired from sitting up in chair all morning. States she got an xray last night but hasn't heard any results. States her legs feel so stiff . Reason for admission DX: CLAUDIO. Fell in kitchen 07/30/19 and brought to ER. Transitioned to swing bed at [facility] on 08/01/2019. Relevant Comorbidities/ Personal Factors to PT PMH includes at [facility] 06/22-07/18/19 for bactremia, UTI,CA, DM, GERD, HTN, HLD, hypothyroid, insomnia, sepsis, nu, hyst, RTC repair. Transfer to swing bed 08/01/19. Verified Two Patient Identifiers Yes Patient consents to therapy Yes Acute Inpatient PT Time Calculation PT Start Time 1341 PT Stop Time 1408 PT Time Calculation (min) 27 min Precautions Precautions Yes/No Yes General Precautions Bed Alarm;Chair Alarm;Fall Risk Instructed on Precautions Yes Other Abrasion R hip Pain Pain No Activity Tolerance Endurance Tolerates 20 - 30 min activity with rests Cognition Overall Cognitive Status WFL Other (Comment) [place] Bed Mobility Supine to Sit Min assist to right;Contact guard assist Sit to Supine Min assist to right Other (Comment) assist for LEs with sit to supine and assist for trunk with supine to sit. TRANSFERS Sit to Stand Contact guard assist Gait Gait Assistance Contact guard assist Assistive Device 2 Wheeled walker Ambulation Distance (Feet) 120'x2 Pattern Shuffle steps Weight Bearing Status Total Other (Comment) slow yasmin Balance Sitting - Static Independent Sitting - Dynamic Independent Standing - Static SBA;Support of both upper extremities Standing - Dynamic CGA;SBA;Support of both upper extremities Exercises Ankle Pumps x 10 seated Heelslides x10 B with A Knee ROM LAQ x 10 each Hip Flexion Marches x 10 each Hip Abduction x10 B supine with assist Patient/Family Training Bed Mobility x Transfer Training x Gait Training x Precautions x Exercise Program x PT Assessment PT Assessment Pt struggles with fatigue, agreeable to participating in PT but appears to lack motivation. Modified Manchester Score Interval Daily Recommendation PT Recommendation Swing Bed Unit PT Equipment Recommended Currently has DME in Place OT Recommendation Home OT;Home with assistance;Other (Comment) Barriers to Community Discharge Safety Plan PT Treatments/Interventions Gait Training;Therapeutic Exercises;Therapeutic Activities;Neuromuscular re-education;Patient/family training Progress Progressing toward goals If this is the last treatment note,it will serve as the discharge summary Yes End of Session Safety End of Session Safety Bed alarm set/activated End of Session Comment Pt wanted to go back to bed and was left there semi reclined. * Michell Molina RN - 08/08/2019 10:46 AM CDT Small scabbed area noted and emerson skin is bruised * Mini Tillman OT - 08/08/2019 9:28 AM CDT 08/08/19 0900 Therapy Visit OT Received On 08/08/19 Reason for admission DX: CLAUDIO. Fell in kitchen 07/30/19 and brought to ER. Transitioned to swing bed at [facility] on 08/01/2019. Comorbidities Relevant to OT PMH includes at [facility] 06/22-07/18/19 for bactremia, UTI. PMH sig for CA, DM, GERD, HTN, HLD, hypothyroid, insomnia, sepsis, nu, hyst, RTC repair. Previous Occupational Therapy Inpatient Therapy;Home care Ordering Provider Dr. Hubbard Verified Two Patient Identifiers Yes Patient consents to therapy Yes Acute Inpatient OT Time Calculation OT Start Time 850 OT Stop Time 918 OT Time Calculation (min) 28 min Precautions Precautions Yes/No Yes General Precautions Bed Alarm;Chair Alarm;Fall Risk Subjective Subjective Patient reports she gets shakey in the morning due to diabetes. Patient reports she isready to ghet washed and dressed. Pain Pain No Activity Tolerance Activity Tolerance Comments Patient fatigues with standing components of ADLS Cognition Overall Cognitive Status WFL ADL Eating/Feeding Assistance Independent;Sitting in chair Eating/Feeding Deficit Setup Eating/Feeding Comment Patient did not eat much of breakfast. She states the fresh fruit has too much sugar and she does not like eggs. I am use to eating oatmeal in the morning. Grooming Assistance Sitting in chair Grooming Deficit Setup Grooming Comment combing hair, washing face while seated on armless shower chair . Declines oral care as she soaked dentures overnight. Bathing Assistance Alternating sit/stand;CGA Bathing Deficit Setup;Steadying;Supervision/safety Bathing Comment spongebathing while seated on armless shower chair. Setup/SBA for UB in sitting. Distal reach of lower legs and feet in sitting with min extra time. CGA for standing components with ww to attend to emerson area and buttocks for balance/steadying. UE Dressing Assistance Minimal;Sitting in chair UE Dressing Deficit Setup;Supervision/safety UE Dressing Comment to [facility] LE Dressing Assistance Minimal LE Dressing Deficit Setup;Steadying;Requires assistive device for steadying;Supervision/safety;Don/doff R sock;Don/doff L sock LE Dressing Comment Patient did not want to wear underwear as she is irritiated Toileting Assistance CGA Toileting Deficit Supervision/safety Toileting Comment Utilized standard toilet for toileting w/ grab bar. Completes hygiene while seated on toilet w/ SBA. Did not complete clothing mgmt. over hips as pt. was not wearing briefs/underwear yet. Functional Transfers Sit to Stand Contact guard assist Bed to Chair Contact guard assist (with ww) Toilet Transfers CGA;Grab bars;Additional time Patient/Family Training Self Cares techniques to promote independence and safety Transfer Training hand placement for safety Recommendation OT Recommendation Home OT;Home with assistance;Other (Comment) OT Equipment Recommended Currently has DME in Place Plan OT Treatment/Intervention Self-care training;Patient/family training;Functional activity;Safety;Therapeutic exercises Progress Progressing toward goals OT Frequency 4 times/week;5 times/week If this is the last treatment note, it will serve as the discharge summary Yes End of Session Safety End of Session Safety Chair alarm set/activated;Call light within reach;Nursing aware of session * Kena Dos Santos APRN - 08/07/2019 4:06 PM CDT Hospitalist Progress Note Roxana Ch is a 84-year-old female patient. Subjective: Ms. Ch is resting in bed on exam. She has right hip pain that is mild and only on palpitation. No impairment with walking. No other complaints. . Current Facility-Administered Medications Medication Dose Route Frequency Provider Last Rate Last Dose ??? acetaminophen (TYLENOL) tablet 650 mg 650 mg Oral Q4H PRN Emiliano Hubbard MD 650 mg at ??? amLODIPine (NORVASC) tablet 5 mg 5 mg Oral Daily Emiliano Hubbard MD 5 mg at 08/07/19927 ??? aspirin EC (ECOTRIN) tablet 81 mg 81 mg Oral Daily Emiliano Hubbard MD 81 mg at 08/07/19928 ??? bacitracin ointment Topical TID Domingo Collins MD ??? docusate sodium (COLACE) capsule 100 mg 100 mg Oral BID Emiliano Hubbard MD 100 mg at 08/06/192038 ??? donepezil (ARICEPT) tablet 10 mg 10 mg Oral QAM Emiliano Hubbard MD 10 mg at 08/07/19608 ??? famotidine (PEPCID) injection 20 mg 20 mg Intravenous Daily Ciarra Cancino APRN Or ??? famotidine (PEPCID) tablet 20 mg 20 mg Oral Daily Ciarra Cancino APRN 20 mg at 08/07/19928 ??? furosemide (LASIX) tablet 20 mg 20 mg Oral Daily Emiliano Hubbard MD 20 mg at 08/07/19928 ??? heparin (porcine) injection 5,000 Units 5,000 Units Subcutaneous BID Emiliano Hubbard MD 5,000 Units at 08/07/19927 ??? insulin lispro (HUMALOG) injection 0-14 Units 0-14 Units Subcutaneous TID AC Emiliano Hubbard MD2 Units at 08/06/19 1233 ??? insulin lispro (HUMALOG) injection 0-7 Units 0-7 Units Subcutaneous Nightly at bedtime Emiliano Hubbard MD ??? levothyroxine (SYNTHROID) tablet 50 mcg 50 mcg Oral Once per day on Sun Sat Emiliano Hubbard MD 50 mcg at 08/06/19 0645 ??? lisinopril (PRINIVIL) tablet 5 mg 5 mg Oral Daily Emiliano Hubbard MD 5 mg at 08/07/19928 ??? magnesium hydroxide (MILK OF MAGNESIA) 400 MG/5ML suspension 30 mL 30 mL Oral Nightly PRN Emiliano Hubbard MD ??? ondansetron (ZOFRAN) injection 4 mg 4 mg Intravenous Q8H PRN Emiliano Hubbard MD ??? polyethylene glycol (GLYCOLAX) packet 17 g 17 g Oral Daily PRN Emiliano Hubbard MD ??? potassium chloride CR (KLOR-CON M) tablet 10 mEq 10 mEq Oral Daily Emiliano Hubbard MD 10 mEq at08/07/19928 ??? pravastatin (PRAVACHOL) tablet 40 mg 40 mg Oral Nightly at bedtime Emiliano Hubbard MD 40 mg at 08/06/192038 ??? sertraline (ZOLOFT) tablet 100 mg 100 mg Oral QAM Emiliano Hubbard MD 100 mg at 08/07/19928 ??? traZODone (DESYREL) tablet 50 mg 50 mg Oral Nightly PRN Emiliano Hubbard MD ??? traZODone (DESYREL) tablet 50 mg 50 mg Oral Nightly at bedtime Emiliano Hubbard MD 50 mg at 08/06/192038 ??? vitamin D3 (cholecalciferol) tablet 2,000 Units 2,000 Units Oral Daily Emiliano Hubbard MD 2,000Units at 05/04/20 0929 Allergies Allergen Reactions ??? Septra [Sulfamethoxazole-Trimethoprim] Rash ROS: 14 point ROS Negative except for as noted in HPI. Objective: Filed Vitals: 08/06/19 0500 08/06/19 0803 08/07/19 0405 08/07/19 0715 BP: 117/44 135/52 Pulse: 59 51 Resp: 18 18 Temp: 97.6 ??F (36.4 ??C) 98.1 ??F (36.7 ??C) TempSrc: Tympanic Tympanic SpO2: 94% 94% Weight: 57.4 kg (126 lb 8.7 oz) 57.1 kg (125 lb 14.1 oz) Physical Exam: GEN: In no acute distress. Breathing comfortably on room air. HEENT: Clear conjunctiva. Mucous membranes moist. CHEST: CTA, no wheezes or crackles. CVS: RRR, no MRG. Abd: Soft, NT. Ext: No edema. SKIN: Warm, dry. No rashes or ulcers. PSYCH: Appropriate affect NEURO: Alert and oriented. CNII-XII grossly intact LABS: Recent Labs Lab 08/01/19 0608/04/19 0948 08/05/19 0619 NA 136 139 140 K 3.8 3.7 3.9 CL 102 104 104 CO2 27.4 26.5 28.3 AGAP 6.6 8.5 7.7 BUN 14 9 12 CR 0.80 1.01 0.98 BUNCREATININ 17.5 8.9 12.2 GFRNON 68* 51* 53* GFR 78* 59* 61* GLU 88 137* 100* CA 8.6 8.7 9.1 Recent Labs Lab 08/01/1961908/04/19 0948 08/05/19 0619 WBC 3.6* 4.7 4.6 RBC 3.90* 4.05* 3.93* HGB 11.2* 11.6* 11.5* HCT 33.2* 36.0 34.5* MCV 85.1 88.9 87.8 MCH 28.7 28.6 29.3 MCHC 33.7 32.2 33.3 PLT 165 196 189 RDW 13.6 14.0 14.0 MPV 10.2 9.6 9.4* PERNEU 69.5 75.8* 71.0 PERLYM 17.2 14.7* 17.7 PERMON 10.0 6.0 7.3 LYMC 0.62* 0.69* 0.82 Imaging & Other Studies: CT pel WO 07/30/19 Visualized portion of the bony pelvis and proximal femurs appear intact. Mild degenerative changes present within the hips. Degenerative changes noted within the pubic symphysis, SI joints and lower lumbar spine. Slight anterolisthesis L4-L5. Probable subcutaneous hematoma right gluteal soft tissues measuring approximately 5 cm. Hysterectomy. Diverticulosis. Atherectomy aorta. CT Head WO 07/30/19 No evidence of acute hemorrhage, mass effect or hydrocephalus. 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 Intracranial vascular calcifications. Unerupted right maxillary molar partially included. The visualized portions of the mastoid air cells and middle ears are clear. CT C -spine WO 07/30/19 C1 through T1 are intact. Normal vertebral body heights. Reversal of cervical lordosis. Slight anterolisthesis C4-C5. Multilevel degenerative disc disease with loss of disc height, endplate and facet hypertrophy. Multilevel foraminal narrowing. Chronic changes involving the C1 to joint, anteriorly. Mild carotid bifurcation vascular calcifications.. Visualized portions of lung apices, mastoid air cells and middle ears are Aerated. CXR 07/30/19 No evidence of acute cardiopulmonary disease. Mildly atherosclerotic aorta without cardiomegaly. Lungs are clear. No pneumothorax or pleural effusion. Chronic changes within the shoulders and spine including a compression deformity noted L1 vertebral body, also demonstrated on the 07/03/2019 CT abdomen and pelvis. Assessment/Plan: 84-year-old female admitted to swing bed for deconditioning and rehab, secondary to presyncope withfalls secondary to iatrogenic electrolyte abnormalities from polypharmacy, most likely hydrochlorothiazide that was discontinued. ?? Hospital Course:??84-year-old??female??presented with presyncope and fall with hyponatremia and hypokalemia. ??Likely secondary to hydrochlorothiazide that will was discontinued. ??Continue with Lasix and potassium, benazepril, and Norvasc. ?? A/P Presyncope with fall and electrolyte abnormalities??of hypokalemia and hyponatremia Suspect iatrogenic secondary to??Lasix and possibly hydrochlorothiazide/Lasix/amlodipine Troponins negative stable on telemetry on Norvasc, benazepril, Lasix, potassium and hold hydrochlorothiazide. Right hip hematoma S/p fall Noted on CT 07/29; brusing stable H&H stable 2 days ago Hemodynamically stable Noted hematoma on exam over right ilium area that is soft but appears walled off? hemtoma vs fluid collection Will repeat CT of pelvis/hip and check H&H today. (08/06) ?? Diabetes ADA diet if pt allows SSI Avoid Metformin while inpatient ?? HTN Resumed??Lasix, amlodipine, ANGEL inhibitor, monitor trend Continue holding HCTZ as above. ?? Hyperlipidemia continue current regimen ?? Hypothyroidism Cont current regimen ?? Depression appears stable continue current regimen ?? History of cancer noted adds complexity patient care ?? Insomnia on trazodone may be contributing consider holding if patient complies ?? DVT Prophylaxis Heparin Subcutaneous, SCD. ?? Advanced care full code ?? Projected length of stay to home in the next??2??days pending patient progress KENA DOS SANTOS APRN 08/07/2019 * Sindy Daugherty Kota, PT - 08/07/2019 1:43 PM CDT 08/07/19 1300 Therapy Visit Subjective Patient states she knows she needs to do PT, so is willing to get out of bed. Verified Two Patient Identifiers Yes Patient consents to therapy Yes Acute Inpatient PT Time Calculation PT Start Time 1318 PT Stop Time 1343 PT Time Calculation (min) 25 min Precautions Precautions Yes/No Yes General Precautions Bed Alarm;Chair Alarm;Fall Risk Pain Pain Patient does not offer or c/o pain Activity Tolerance Activity Tolerance Comments fatigues with ex/ambulation Bed Mobility Supine to Sit Contact guard assist Sit to Supine Min assist to right Other (Comment) assist for LEs with sit to supine and assist for trunk with supine to sit. TRANSFERS Sit to Stand Contact guard assist Other (Comment) stand to sit with CGA Gait Gait Assistance Contact guard assist Assistive Device 2 Wheeled walker Ambulation Distance (Feet) 100' Other (Comment) slow yasmin Exercises Supine LE Exercise B LE ex with assist for heelslides B x 10 each Patient/Family Training Bed Mobility yes Transfer Training yes Gait Training yes Exercise Program yes PT Assessment PT Assessment Patient is continuing to make slow progress toward goals. Plan Progress Progressing toward goals If this is the last treatment note,it will serve as the discharge summary Yes End of Session Safety End of Session Safety Bed alarm set/activated;Call light within reach * AMANDA Blum - 08/07/2019 11:51 AM CDT Interdisciplinary Team conference held. In attendance; case management, UR, nursing, PT, OT, cardiopulmonary, REPORTING MANAGER, Hospitalist, Pastoral Care, and Pharmacy. Meeting held at 11:00. Continue with PT goals. Pt stated patient is doing well and they are planning to move goal sate to 08/16/2019 instead of 08/23/2019. Spoke to patients daughter, Krystina to update her on this. Krystina reports she is concerned about her being home alone but thinks between home health and her going out more often patient will be ok until she is able to move in with Krystina early September. Set up family meeting for Wednesday08/11/2019 at 1300. * Sindy Escudero, PT - 08/07/2019 11:24 AM CDT Patient is making progress with her mobility, but continues to fatigue quickly with activity. * Sindy Escudero, PT - 08/07/2019 11:22 AM CDT 08/07/19 0900 Therapy Visit Subjective Patient states she is doing ok today. Was ready to lay down, but will do therapy first. Verified Two Patient Identifiers Yes Patient consents to therapy Yes Acute Inpatient PT Time Calculation PT Start Time 1024 PT Stop Time 1053 PT Time Calculation (min) 29 min Precautions Precautions Yes/No Yes General Precautions Bed Alarm;Chair Alarm;Fall Risk Instructed on Precautions Yes Pain Pain Patient does not offer or c/o pain Activity Tolerance Activity Tolerance Comments fatigues with ex/ambulation Bed Mobility Sit to Supine Min assist to right Other (Comment) assist with LEs for sit to supine TRANSFERS Sit to Stand Contact guard assist Other (Comment) stand to sit with CGA. vc with transfers for hand placement and to turn completely before trying to reach for chair. Gait Gait Assistance Contact guard assist Assistive Device 2 Wheeled walker Ambulation Distance (Feet) 100'x2 Other (Comment) slow yasmin. Exercises Sitting LE Exercise Sitting B LE ex x 10 reps each (LAQs, marching, hip abd, ankle DF/PF) Other (Comment) patient does better with ex when distracted. Patient/Family Training Bed Mobility yes Transfer Training yes Gait Training yes Exercise Program yes PT Assessment PT Assessment Patient continues to fatigue with ex and gait, but slowing making progress. Plan Progress Progressing toward goals If this is the last treatment note,it will serve as the discharge summary Yes End of Session Safety End of Session Safety Bed alarm set/activated;Call light within reach * Mary Dickey, OT - 08/07/2019 8:01 AM CDT 08/07/19722 Therapy Visit Reason for admission DX: CLAUDIO. Fell in kitchen 07/30/19 and brought to ER. Transitioned to swing bed at [facility] on 08/01/2019. Comorbidities Relevant to OT PMH includes at [facility] 06/22-07/18/19 for bacteremia, UTI. PMH sig for CA, DM, GERD, HTN, HLD, hypothyroid, insomnia, sepsis, nu, hyst, RTC repair. Verified Two Patient Identifiers Yes Patient consents to therapy Yes Acute Inpatient OT Time Calculation OT Start Time 722 OT Stop Time 800 OT Time Calculation (min) 38 min Precautions Precautions Yes/No Yes General Precautions Bed Alarm;Chair Alarm;Fall Risk Instructed on Precautions Yes Pain Pain Patient does not offer or c/o pain Activity Tolerance Activity Tolerance Comments Fatigued after ADL session Cognition Overall Cognitive Status WFL ADL Grooming Assistance Sitting in chair Grooming Deficit Setup Grooming Comment Washing face, hands. Declines brushing teeth Bathing Assistance Minimal;Alternating sit/stand Bathing Deficit Setup;Steadying;Supervision/safety;Right lower leg including foot;Left lower leg including foot Bathing Comment Sponge bath from armless chair at sink. Assist for feet. UE Dressing Assistance Minimal;Sitting in chair UE Dressing Deficit Setup;Supervision/safety UE Dressing Comment to [facility] LE Dressing Assistance Moderate;Alternating sit/stand LE Dressing Deficit Setup;Steadying;Requires assistive device for steadying;Supervision/safety;Don/doff R sock;Don/doff L sock;Thread LLE into underwear Toileting Assistance CGA Toileting Deficit Supervision/safety Toileting Comment Utilized standard toilet for toileting w/ grab bar. Completes hygiene while seated on toilet w/ SBA. Did not complete clothing mgmt. over hips as pt. was not wearing briefs/underwear yet. Bed Mobility Supine to Sit Contact guard assist (Uses bed rail) Functional Transfers Sit to Stand Contact guard assist Toilet Transfers CGA;Grab bars;Additional time Functional Mobility CGA w/ mob to and from bathroom using ww Patient/Family Training Self Cares Promoting safety and indep Transfer Training Promoting indep OT Assessment OT Assessment Making good progress towards OT goals. Motivated and cooperative. Demo's potential for further progress. Not yet at PLOF Modified [place] Score Interval Daily Score 0-6 4 Moderately severe disability, unable to walk without assistance and unable to attend toown bodily needs without assistance Plan Progress Progressing toward goals If this is the last treatment note, it will serve as the discharge summary Yes End of Session Safety End of Session Safety Chair alarm set/activated;Call light within reach * Mary Dickey OT - 08/07/2019 8:00 AM CDT Good progress towards all goals. Motivated and cooperative. Min assist w/ LB ADL's. CGA mob and transfers * Imelda Murray RN - 08/06/2019 11:55 PM CDT Problem: Reduced risk for falls/injury Goal: Reduced Risk for Falls/Injury Outcome: Progressing No falls this hospitalization. * Clementina Gautam PTA - 08/05/2019 9:44 AM CDT 08/05/19 0900 Therapy Visit Subjective Patient seated in chair upon arrival. DIdn't know therapy came on . Wants to walk with PT. Verified Two Patient Identifiers Yes Patient consents to therapy Yes Acute Inpatient PT Time Calculation PT Start Time 0910 PT Stop Time 0925 PT Time Calculation (min) 15 min Precautions Precautions Yes/No Yes General Precautions Bed Alarm;Chair Alarm;Fall Risk Cognition Overall Cognitive Status WFL TRANSFERS Sit to Stand Contact guard assist Gait Gait Assistance SBA/supervision;Contact guard assist Assistive Device 2 Wheeled walker Ambulation Distance (Feet) 125' x 1 Pattern Shuffle steps Weight Bearing Status Total Exercises Ankle Pumps x 10 seated Knee ROM LAQ x 10 each Hip Flexion Marches x 10 each Patient/Family Training Transfer Training x Gait Training x Exercise Program x PT Assessment PT Assessment Patient did well with ambulation and exercises. No complaints throughout therapy. Patient is progressing towards goals. Plan If this is the last treatment note,it will serve as the discharge summary Yes End of Session Safety End of Session Safety Chair alarm set/activated;Call light within reach;Nursing aware of session End of Session Comment Patient left seated in chair. * Ciarra Cancino APRN - 08/04/2019 4:33 PM CDT Hospitalist Progress Note Roxana Ch is a 84-year-old female patient. Subjective: Ms. Ch is resting in bed on exam. She denies any current dizziness. She still continues to feel weak. No other complaints. Current Facility-Administered Medications Medication Dose Route Frequency Provider Last Rate Last Dose ??? acetaminophen (TYLENOL) tablet 650 mg 650 mg Oral Q4H PRN Emiliano Hubbard MD 650 mg at ??? amLODIPine (NORVASC) tablet 5 mg 5 mg Oral Daily Emiliano Hubbard MD 5 mg at 08/04/19807 ??? aspirin EC (ECOTRIN) tablet 81 mg 81 mg Oral Daily Emiliano Hubbard MD 81 mg at 08/04/19807 ??? bacitracin ointment Topical TID Domingo Collins MD ??? docusate sodium (COLACE) capsule 100 mg 100 mg Oral BID Emiliano Hubbard MD 100 mg at 08/03/192039 ??? donepezil (ARICEPT) tablet 10 mg 10 mg Oral QAM Emiliano Hubbard MD 10 mg at 08/04/19 0545 ??? famotidine (PEPCID) injection 20 mg 20 mg Intravenous 2 times per day Emiliano Hubbard MD Or ??? famotidine (PEPCID) tablet 20 mg 20 mg Oral 2 times per day Emiliano Hubbard MD 20 mg at 08/04/19807 ??? furosemide (LASIX) tablet 20 mg 20 mg Oral Daily Emiliano Hubbard MD 20 mg at 08/04/19807 ??? heparin (porcine) injection 5,000 Units 5,000 Units Subcutaneous BID Emiliano Hubbard MD 5,000 Units at 08/04/19 08 ??? insulin lispro (HUMALOG) injection 0-14 Units 0-14 Units Subcutaneous TID AC Emiliano Hubbard MD ??? insulin lispro (HUMALOG) injection 0-7 Units 0-7 Units Subcutaneous Nightly at bedtime Emiliano Hubbard MD ??? [START ON 08/05/2019] levothyroxine (SYNTHROID) tablet 50 mcg 50 mcg Oral Once per day on Sun SatEmiliano Hubbard MD ??? lisinopril (PRINIVIL) tablet 5 mg 5 mg Oral Daily Emiliano Hubbard MD 5 mg at 08/04/19807 ??? magnesium hydroxide (MILK OF MAGNESIA) 400 MG/5ML suspension 30 mL 30 mL Oral Nightly PRN Emiliaon Hubbard MD ??? ondansetron (ZOFRAN) injection 4 mg 4 mg Intravenous Q8H PRN Emiliano Hubbard MD ??? polyethylene glycol (GLYCOLAX) packet 17 g 17 g Oral Daily PRN Emiliano Hubbard MD ??? potassium chloride CR (KLOR-CON M) tablet 10 mEq 10 mEq Oral Daily Emiliano Hubbard MD 10 mEq at08/04/19807 ??? pravastatin (PRAVACHOL) tablet 40 mg 40 mg Oral Nightly at bedtime Emiliano Hubbard MD 40 mg at 08/03/192039 ??? sertraline (ZOLOFT) tablet 100 mg 100 mg Oral QAM Emiliano Hubbard MD 100 mg at 08/04/19 0545 ??? traZODone (DESYREL) tablet 50 mg 50 mg Oral Nightly PRN Emiliano Hubbard MD ??? traZODone (DESYREL) tablet 50 mg 50 mg Oral Nightly at bedtime Emiliano Hubbard MD 50 mg at 08/03/192039 ??? vitamin D3 (cholecalciferol) tablet 2,000 Units 2,000 Units Oral Daily Emiliano Hubbard MD 2,000Units at 08/04/19 0808 Allergies Allergen Reactions ??? Septra [Sulfamethoxazole-Trimethoprim] Rash ROS: 14 point ROS Negative except for as noted in HPI. Objective: Filed Vitals: 08/03/19 0500 08/03/19 0716 08/04/19 0352 08/04/19 0655 BP: 127/43 148/56 Pulse: 50 50 Resp: 20 16 Temp: 97 ??F (36.1 ??C) 97.7 ??F (36.5 ??C) TempSrc: Tympanic Tympanic SpO2: 95% 95% Weight: 59.5 kg (131 lb 2.8 oz) 59.9 kg (132 lb 0.9 oz) Physical Exam: GEN: In no acute distress. Breathing comfortably on room air. HEENT: Clear conjunctiva. Mucous membranes moist. CHEST: CTA, no wheezes or crackles. CVS: RRR, no MRG. Abd: Soft, NT. Ext: No edema. SKIN: Warm, dry. No rashes or ulcers. PSYCH: Appropriate affect NEURO: Alert and oriented. CNII-XII grossly intact LABS: Recent Labs Lab 07/31/19 0629 08/01/19 0620 08/04/19 0948 NA 127* 136 139 K 4.9 3.8 3.7 CL 93* 102 104 CO2 25.5 27.4 26.5 AGAP 8.5 6.6 8.5 BUN 23* 14 9 CR 0.97 0.80 1.01 BUNCREATININ 23.7 17.5 8.9 GFRNON 54* 68* 51* GFR 62* 78* 59* GLU 108* 88 137* CA 9.4 8.6 8.7 Recent Labs Lab 07/31/19 0629 08/01/19 0620 08/04/19 0948 WBC 5.0 3.6* 4.7 RBC 4.21* 3.90* 4.05* HGB 12.1* 11.2* 11.6* HCT 35.0* 33.2* 36.0 MCV 83.1 85.1 88.9 MCH 28.7 28.7 28.6 MCHC 34.6* 33.7 32.2 PLT 159 165 196 RDW 13.2 13.6 14.0 MPV 10.9 10.2 9.6 PERNEU 75.2* 69.5 75.8* PERLYM 11.5* 17.2 14.7* PERMON 10.9 10.0 6.0 LYMC 0.57* 0.62* 0.69* Imaging & Other Studies: CT pel WO 07/30/19 Visualized portion of the bony pelvis and proximal femurs appear intact. Mild degenerative changes present within the hips. Degenerative changes noted within the pubic symphysis, SI joints and lower lumbar spine. Slight anterolisthesis L4-L5. Probable subcutaneous hematoma right gluteal soft tissues measuring approximately 5 cm. Hysterectomy. Diverticulosis. Atherectomy aorta. CT Head WO 07/30/19 No evidence of acute hemorrhage, mass effect or hydrocephalus. 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 Intracranial vascular calcifications. Unerupted right maxillary molar partially included. The visualized portions of the mastoid air cells and middle ears are clear. CT C -spine WO 07/30/19 C1 through T1 are intact. Normal vertebral body heights. Reversal of cervical lordosis. Slight anterolisthesis C4-C5. Multilevel degenerative disc disease with loss of disc height, endplate and facet hypertrophy. Multilevel foraminal narrowing. Chronic changes involving the C1 to joint, anteriorly. Mild carotid bifurcation vascular calcifications.. Visualized portions of lung apices, mastoid air cells and middle ears are Aerated. CXR 07/30/19 No evidence of acute cardiopulmonary disease. Mildly atherosclerotic aorta without cardiomegaly. Lungs are clear. No pneumothorax or pleural effusion. Chronic changes within the shoulders and spine including a compression deformity noted L1 vertebral body, also demonstrated on the 07/03/2019 CT abdomen and pelvis. Assessment/Plan: 84-year-old female admitted to swing bed for deconditioning and rehab, secondary to presyncope withfalls secondary to iatrogenic electrolyte abnormalities from polypharmacy, most likely hydrochlorothiazide that was discontinued. ?? Hospital Course:??84-year-old??female??presented with presyncope and fall with hyponatremia and hypokalemia. ??Likely secondary to hydrochlorothiazide that will was discontinued. ??Continue with Lasix and potassium, benazepril, and Norvasc. ?? A/P Presyncope with fall and electrolyte abnormalities??of hypokalemia and hyponatremia Suspect iatrogenic secondary to??Lasix and possibly hydrochlorothiazide/Lasix/amlodipine Troponins negative stable on telemetry 07/31 resolved with holding of home medications primarily Lasix and hydrochlorothiazide. ??Will resume Norvasc, benazepril, Lasix, potassium and hold hydrochlorothiazide. ?? Diabetes ADA diet if pt allows SSI Avoid Metformin while inpatient ?? HTN Resumed??Lasix, amlodipine, ANGEL inhibitor, monitor trend Continue holding HCTZ as above. ?? Hyperlipidemia continue current regimen ?? Dehydration [...] length of stay to home in the next??2??days pending patient progress CIARRA CANCINO APRN 08/04/2019 Cosigned by Bijan Wilburn MD at 08/04/2019 5:40 PM CDT Associated attestation - Bijan Wilburn MD - 08/04/2019 5:40 PM CDT I, BIJAN WILBURN MD, performed an examination of the patient and discussed the management with the Advanced Practice Provider (JEREMÍAS). I reviewed the JEREMÍAS's progress note and agree with the findings andplan of care, except as I have documented. * June Laughlin, PT - 08/04/2019 2:20 PM CDT 08/04/19 1300 Therapy Visit Subjective Patient was seated in the recliner on arrival to the room and was agreeable to PT. She notes that she would like to get into bed after therapy Verified Two Patient Identifiers Yes Patient consents to therapy Yes Acute Inpatient PT Time Calculation PT Start Time 1307 PT Stop Time 1337 PT Time Calculation (min) 30 min Precautions Precautions Yes/No Yes General Precautions Bed Alarm;Chair Alarm;Fall Risk;Hard of Hearing Instructed on Precautions Yes Pain Pain Patient does not offer or c/o pain Activity Tolerance Endurance Tolerates 20 - 30 min activity with rests Cognition Overall Cognitive Status WFL Bed Mobility Sit to Supine Min assist to right (to lift LE onto the bed ) Other (Comment) Patient required min assist to lift B LE onto the bed TRANSFERS Sit to Stand Contact guard assist (from recliner, increased time to perform task) Gait Gait Assistance Contact guard assist;SBA/supervision Assistive Device 2 Wheeled walker Ambulation Distance (Feet) 100' x 2 Pattern Shuffle steps Weight Bearing Status Total Other (Comment) Patient continues to present with decreased yasmin and decreased knee flexion during swing. Balance Sitting - Static Independent Sitting - Dynamic Independent Standing - Static SBA;Support of both upper extremities Standing - Dynamic CGA;SBA;Support of both upper extremities Exercises Ankle Pumps x15 B seated Short Arc Quad x10 B supine Straight Leg Raise x10 B supine with Assist Hip Flexion x10 B marching alternating with assist on the L Hip Abduction x10 B supine with assist Sitting LE Exercise LAQ x 10 B with assist Patient/Family Training Bed Mobility x Transfer Training x Gait Training x Precautions x Exercise Program x PT Assessment PT Assessment Due to fatigue, the patient required min A to perform sit to supine. When the patientcontinues to require assist with exercises to achieve full ROM. Endurance is slowly improving. Plan Progress Progressing toward goals PT plan for next session Cont PT per POC If this is the last treatment note,it will serve as the discharge summary Yes End of Session Safety End of Session Safety Bed alarm set/activated;Call light within reach End of Session Comment Ended session with patient supine in bed * June Laughlin, PT - 08/04/2019 2:20 PM CDT Patient is progressing towards all of her goals at this time. * AMANDA Blum - 08/04/2019 12:39 PM CDT Interdisciplinary Team conference held. In attendance; case management, UR, nursing, PT, OT, cardiopulmonary, REPORTING MANAGER, Hospitalist, Pastoral Care, and Pharmacy. Meeting held at 11:00. Continue with PT goals through 08/23/2019. * Norma Guidry OT - 08/04/2019 10:32 AM CDT Good progress towards all goals. Demo's increase balance, endurance, and safety. Improvements notedw/ functional transfers and ability to complete ADL tasks. * Norma Guidry OT - 08/04/2019 10:31 AM CDT 08/04/19 0722 Therapy Visit OT Received On 08/04/19 Reason for admission DX: CLAUDIO. Fell in kitchen 07/30/19 and brought to ER. Transitioned to swing bed at [facility] on 08/01/2019. Comorbidities Relevant to OT PMH includes at [facility] 06/22-07/18/19 for bactremia, UTI. PMH sig for CA, DM, GERD, HTN, HLD, hypothyroid, insomnia, sepsis, nu, hyst, RTC repair. Verified Two Patient Identifiers Yes Patient consents to therapy Yes Acute Inpatient OT Time Calculation OT Start Time 0826 OT Stop Time 0851 (also in room from 3559-0924; 38 total billable time) OT Time Calculation (min) 25 min Precautions General Precautions Bed Alarm;Chair Alarm;Hard of Hearing;Fall Risk Subjective Subjective Pt. requested to go to the bathroom and get up to chair for breakfast. Wants to get cleaned up after her breakfast. Pain Pain Patient does not offer or c/o pain Activity Tolerance Activity Tolerance Comments Good endurance w/ ADL routine noted. Fatigues w/ standing ADL's but hasimproved since SOC. Cognition Overall Cognitive Status WFL Other (Comment) [place] ADL Eating/Feeding Assistance Independent;Sitting in chair Eating/Feeding Deficit Setup Grooming Assistance Stand by;CGA;Standing at sink;Sitting in chair Grooming Deficit Steadying;Supervision/safety Grooming Comment To wash hands standing at sink; Washes face and [place] hair while seated indep after set-up Bathing Assistance Minimal;Alternating sit/stand Bathing Deficit Setup;Steadying;Supervision/safety;Right lower leg including foot;Left lower leg including foot Bathing Comment Completed sponge bath while seated in bedside chair at room sink. Assist required for bilateral feet d/t decreased distal reach. Otherwise, SBA w/ seated UB/LB bathing. Stands w/ ww at sink and completes emerson- care/buttocks w/ SBA/CGA for balance/safety, intermittent support of UE onww during task. UE Dressing Assistance Minimal;Sitting in chair UE Dressing Deficit Setup;Supervision/safety UE Dressing Comment to [facility] gown LE Dressing Assistance Maximal;Alternating sit/stand LE Dressing Deficit Setup;Steadying;Requires assistive device for steadying;Supervision/safety;[facility] R sock;[facility] L sock;Pull up over hips LE Dressing Comment Dep to [facility] socks; Max A to [facility] depends over hips while standing w/ww. Toileting Assistance Stand by Toileting Deficit Supervision/safety Toileting Comment Utilized standard toilet for toileting w/ grab bar. Completes hygiene while seated on toilet w/ SBA. Did not complete clothing mgmt. over hips as pt. was not wearing briefs/underwear yet. Bed Mobility Supine to Sit Contact guard assist;SBA/supervision (using bed rail, HOB slightly elevated, increased time) Functional Transfers Sit to Stand Contact guard assist;Other (from EOB and bedside chair) Toilet Transfers CGA;Grab bars;Additional time (from standard toilet) Functional Mobility During 1st session, pt. performed mobility using ww to/from bathroom and aroundfoot of bed to recliner chair w/ SBA/CGA. During 2nd part of session, Performed mobility to room sink using ww w/ SBA/CGA. Did not complete mobility back from room sink d/t fatigue at end of ADL session. Balance Sitting - Static Independent Sitting - Dynamic Independent Standing - Static SBA;CGA;Support of one upper extremity Standing - Dynamic CGA;SBA;Support of one upper extremity;Support of both upper extremities Patient/Family Training Self Cares tech's to promote increased indep/safety Transfer Training hand placement, safety techniques OT Assessment OT Assessment Pt. puts forth good effort during ADL training. Current POC remains appropriate at this time. Demonstrating reduced hip/back pain, allowing for increased participation in mobility w/ ADL's and improved balance/endurance w/ standing ADL tasks. Recommend continued skilled OT services. Modified [place] Score Interval Daily Score 0-6 4 Moderately severe disability, unable to walk without assistance and unable to attend toown bodily needs without assistance Plan Progress Progressing toward goals If this is the last treatment note, it will serve as the discharge summary Yes End of Session Safety End of Session Safety Call light within reach;Chair alarm set/activated;Nursing aware of session * June Laughlin, PT - 08/04/2019 9:44 AM CDT 08/04/19 0900 Therapy Visit Subjective Patient was seated in recliner on arrival to the room and agrees to participate. She reports that her legs are stiff. Verified Two Patient Identifiers Yes Patient consents to therapy Yes Acute Inpatient PT Time Calculation PT Start Time 09 PT Stop Time 09 PT Time Calculation (min) 29 min Precautions Precautions Yes/No Yes General Precautions Bed Alarm;Chair Alarm;Fall Risk;Hard of Hearing Instructed on Precautions Yes Pain Pain Patient does not offer or c/o pain Location Patient did report pain of 1-2/10 in her L hip after AMB Activity Tolerance Endurance Tolerates 20 - 30 min activity with rests Activity Tolerance Comments Fair tolerance to activity, increased fatigue after gait Cognition Overall Cognitive Status WFL TRANSFERS Sit to Stand Contact guard assist (increased time from recliner) Gait Gait Assistance Contact guard assist;SBA/supervision Assistive Device 2 Wheeled walker Ambulation Distance (Feet) 100', 125' Pattern Shuffle steps Weight Bearing Status Total Other (Comment) Decreased yasmin with gait Balance Standing - Static SBA;Support of both upper extremities Standing - Dynamic CGA;Support of both upper extremities Exercises Ankle Pumps x15B Quad Sets x15B Heelslides x10 B with A Glut Sets x15B Hip Abduction x10 B with assist Sitting LE Exercise LAQ x10 B with Assist Patient/Family Training Transfer Training x Gait Training x Precautions x Exercise Program x PT Assessment PT Assessment Patient continues to fatigue with AMB and requires assist for full range of motion with ex. Plan Progress Progressing toward goals PT plan for next session Continue PT as ordered If this is the last treatment note,it will serve as the discharge summary Yes End of Session Safety End of Session Safety Chair alarm set/activated;Call light within reach End of Session Comment Ended session with patient reclined in chair * Va Rios, FARROWING WORKER - 08/03/2019 2:46 PM CDT 08/03/19 1300 Therapy Visit Ordering Provider Dr. Hubbard Subjective Pt states she tires-out so easy. Reason for admission DX: CLAUDIO. Fell in kitchen 07/30/19 and brought to ER. Transitioned to swing bed at [facility] on 08/01/2019. Relevant Comorbidities/ Personal Factors to PT PMH includes at [facility] 06/22-07/18/19 for bactremia, UTI,CA, DM, GERD, HTN, HLD, hypothyroid, insomnia, sepsis, nu, hyst, RTC repair. Transfer to swing bed 08/01/19. Verified Two Patient Identifiers Yes Patient consents to therapy Yes Acute Inpatient PT Time Calculation PT Start Time 1416 PT Stop Time 1440 PT Time Calculation (min) 24 min Precautions Precautions Yes/No Yes General Precautions Bed Alarm;Chair Alarm;Hard of Hearing;Fall Risk Instructed on Precautions Yes;Needs reinforcement and education Pain Pain Patient does not offer or c/o pain Activity Tolerance Endurance Tolerates 20 - 30 min activity with rests Cognition Overall Cognitive Status WFL Arousal/Alertness Appropriate responses to stimuli Attention Span Appears intact Memory Appears intact Orientation Level Oriented X4 Following Commands Follows one step commands with repetition Safety Judgment Good awareness of safety precautions Other (Comment) [place] Bed Mobility Supine to Sit SBA/supervision Sit to Supine Contact guard assist Other (Comment) Pt requires increase time to complete transfers on her own. TRANSFERS Stand Pivot Transfers Contact guard assist Sit to Stand Contact guard assist Gait Gait Assistance Contact guard assist Assistive Device 2 Wheeled walker Ambulation Distance (Feet) 100' Pattern Shuffle steps Weight Bearing Status Total Other (Comment) Slow yasmin. Balance Sitting - Static Independent Sitting - Dynamic Independent Standing - Static SBA;CGA;Support of both upper extremities;Support of one upper extremity Standing - Dynamic SBA;CGA;Support of one upper extremity;Support of both upper extremities Other (Comment) performed gentle perturbations in attempts to engage core stabilization Exercises Ankle Pumps x15 B Heelslides x10 with A Knee ROM LAQ x10 B Straight Leg Raise x 10 Hip Flexion x10 marching B Hip Abduction x12 B Sitting LE Exercise LAQ x 10 B with A, Hip flexion x 10 B with assist Patient/Family Training Bed Mobility x Transfer Training x Gait Training x Precautions x Exercise Program x PT Assessment PT Assessment Pt fatigues with gt and ex and required min assist for LE's for sit to supine Modified [place] Score Interval Daily Recommendation PT Recommendation Swing Bed Unit PT Equipment Recommended Currently has DME in Place OT Recommendation Home OT;Home with assistance;Other (Comment) OT Equipment Recommended Currently has DME in Place;To Be Determined Plan PT Treatments/Interventions Gait Training;Therapeutic Exercises;Therapeutic Activities;Neuromuscular re-education;Patient/family training Progress Progressing toward goals PT plan for next session Continue PT as oredered. If this is the last treatment note,it will serve as the discharge summary Yes End of Session Safety End of Session Safety Bed alarm set/activated End of Session Comment ended session with pt relcined in bed. * EMERALD Gallardo - 08/03/2019 12:36 PM CDT 08/03/19 1053 Therapy Visit OT Received On 08/03/19 Reason for admission DX: CLAUDIO. Fell in kitchen 07/30/19 and brought to ER. Transitioned to swing bed at [facility] on 08/01/2019. Comorbidities Relevant to OT PMH includes at [facility] 06/22-07/18/19 for bactremia, UTI. PMH sig for CA, DM, GERD, HTN, HLD, hypothyroid, insomnia, sepsis, nu, hyst, RTC repair. Ordering Provider Dr. Hubbard Verified Two Patient Identifiers Yes Patient consents to therapy Yes Acute Inpatient OT Time Calculation OT Start Time 1053 OT Stop Time 1123 OT Time Calculation (min) 30 min Precautions Precautions Yes/No Yes General Precautions Bed Alarm;Chair Alarm;Hard of Hearing;Fall Risk Other Abrasion R hip Subjective Subjective I haven't done that yet. Pt presented in bedside chair, agreeable to therapy. Pain Pain Patient does not offer or c/o pain Activity Tolerance Endurance Tolerates 30 min activity with rests Activity Tolerance Comments Pt demos good tolerance for alt sit to stand(briefly) ADL tx. Cognition Overall Cognitive Status WFL Other (Comment) [place] ADL Grooming Assistance Stand by;Sitting in chair;Alternating sit/stand Grooming Deficit Setup;Supervision/safety Grooming Comment to wash face/hands; pt declines oral hygiene, r/o completing prior to tx. Bathing Assistance Minimal;Alternating sit/stand Bathing Deficit Setup;Right lower leg including foot;Left lower leg including foot;Supervision/safety Bathing Comment Pt completed sponge bath alt sit to stand from bedside recliner at room sink; SBA for UB/LB above knee level; therapist assist w/below knees and B feet d/t limited distal reach; SBA for balance completing perihygiene in standing, intermittent support of UE on ww. UE Dressing Assistance Minimal;Sitting in chair UE Dressing Deficit Setup;Fasteners (to don/dof hsop gown) LE Dressing Assistance Maximal;Alternating sit/stand LE Dressing Deficit Setup;Requires assistive device for steadying;Supervision/safety;Don/doff R sock;Don/doff L sock LE Dressing Comment Dep to don/dof hospital socks; Max A to don hospital depends garment while standing w/ww. Functional Transfers Sit to Stand Contact guard assist (from bedside recliner w/ww) Functional Mobility Completed in bedside recliner <> room sink Balance Sitting - Static Independent Sitting - Dynamic Independent Standing - Static SBA;CGA;Support of both upper extremities;Support of one upper extremity Standing - Dynamic SBA;CGA;Support of one upper extremity;Support of both upper extremities Patient/Family Training Self Cares x Transfer Training hand placement for safety. OT Assessment OT Assessment Pt cooperative and motivated to complete tx; will continue to benefit from skilled OTfor optimal safety and endurance completing daily activities. Plan OT Treatment/Intervention Self-care training;Patient/family training;Functional activity;Safety;Therapeutic exercises Progress Progressing toward goals If this is the last treatment note, it will serve as the discharge summary Yes End of Session Safety End of Session Safety Chair alarm set/activated;Call light within reach * June Laughlin, PT - 08/03/2019 11:00 AM CDT 08/03/19 0900 Therapy Visit Subjective Patient was seated in recliner on arrival to the room and agrees to participate in therapy. Verified Two Patient Identifiers Yes Patient consents to therapy Yes Acute Inpatient PT Time Calculation PT Start Time 1014 PT Stop Time 1041 PT Time Calculation (min) 27 min Precautions Precautions Yes/No Yes General Precautions Bed Alarm;Chair Alarm;Fall Risk;Hard of Hearing Instructed on Precautions Yes;Needs reinforcement and education Other Abrasion R hip Pain Pain Patient does not offer or c/o pain Activity Tolerance Activity Tolerance Comments Patient demonstrates fatigue with exercises and AMB Cognition Overall Cognitive Status WFL TRANSFERS Sit to Stand Contact guard assist Other (Comment) Stand to sit CGA for safety. Increased time to perform sit to/from stand Gait Gait Assistance Contact guard assist Assistive Device 2 Wheeled walker Ambulation Distance (Feet) 100' Pattern Shuffle steps (decreased yasmin ) Weight Bearing Status Total Balance Sitting - Static Independent Sitting - Dynamic SBA Standing - Static CGA;SBA;Support of both upper extremities Standing - Dynamic CGA;Support of both upper extremities Exercises Ankle Pumps x15 B Quad Sets x12 B Short Arc Quad x10 B with A Heelslides x10 with A Glut Sets x12 Hip Abduction x12 B Sitting LE Exercise LAQ x 10 B with A, Hip flexion x 10 B with assist Other (Comment) Assist needed to perform reclined and seated exercises due to LE weakness and poor endurance. Patient/Family Training Transfer Training x Gait Training x Precautions x Exercise Program x PT Assessment PT Assessment Patient continues to demonstrate fatigue with AMB and requires assist with LE exericses. Less assistance required for AMB and patient demonstrates goo balance with UE support. Plan Progress Progressing toward goals PT plan for next session Cont PT per POC If this is the last treatment note,it will serve as the discharge summary Yes End of Session Safety End of Session Safety Chair alarm set/activated;Call light within reach End of Session Comment Ended session with patient seated in recliner * Marias Wheatley PTA - 08/02/2019 3:27 PM CDT 08/02/19 1328 Therapy Visit Subjective Pt states she is tired, but wants to participate in PT. Verified Two Patient Identifiers Yes Patient consents to therapy Yes Acute Inpatient PT Time Calculation PT Start Time 1328 PT Stop Time 1406 PT Time Calculation (min) 38 min Precautions Precautions Yes/No Yes General Precautions Bed Alarm;Chair Alarm;Fall Risk;Hard of Hearing Instructed on Precautions Yes;Needs reinforcement and education Pain Pain Patient does not offer or c/o pain Cognition Overall Cognitive Status WFL Bed Mobility Supine to Sit SBA/supervision (with rail, HOB elevated, and increased time.) Sit to Supine Contact guard assist (with increased time and effort.) TRANSFERS Sit to Stand Contact guard assist Other (Comment) Stand to sit with CGA and cues for hand placement. Gait Gait Assistance Contact guard assist Assistive Device 2 Wheeled walker Ambulation Distance (Feet) 100' Pattern Shuffle steps ([place] JUAN.) Weight Bearing Status Total Other (Comment) Slow yasmin. Exercises Ankle Pumps x 15 Quad Sets x 15 Short Arc Quad x 15 Heelslides x 10 Glut Sets x 15 Hip Abduction x 15 Patient/Family Training Bed Mobility X Transfer Training X Gait Training X Precautions X Exercise Program X PT Assessment PT Assessment Pt with improved performance. Pt able to get in and out of bed with less assistance, but requires increased time and effort. Plan Progress Progressing toward goals If this is the last treatment note,it will serve as the discharge summary Yes End of Session Safety End of Session Safety Bed alarm set/activated;Call light within reach;Nursing aware of session End of Session Comment Pt in bed at end of session. * Norma Guidry, OT - 08/02/2019 12:51 PM CDT OT Evaluation 08/02/19 7407 Therapy Visit OT Received On 08/02/19 Reason for admission DX: CLAUDIO. Fell in kitchen 07/30/19 and brought to ER. Transitioned to swing bed at [facility] on 08/01/2019. Comorbidities Relevant to OT PMH includes at [facility] 06/22-07/18/19 for bactremia, UTI. PMH sig for CA, DM, GERD, HTN, HLD, hypothyroid, insomnia, sepsis, nu, hyst, RTC repair. Previous Occupational Therapy Inpatient Therapy;Home care Ordering Provider Dr. Hubbard Verified Two Patient Identifiers Yes Patient consents to therapy Yes Acute Inpatient OT Time Calculation OT Start Time 0757 OT Stop Time 0822 (Eval, ADL charge; Total eval time= 45 ) OT Time Calculation (min) 25 min Precautions General Precautions Bed Alarm;Chair Alarm;Fall Risk;Hard of Hearing Other Abrasion to R hip/side; very [place] Subjective Subjective Pt. eager to get cleaned up this morning. Reports she had a rough night from increased hip pain, had difficulty getting comfortable. Would prefer to get cleaned up from bedside chair. Home Living Type of Home Apartment Home Layout One level;Other (Comment) (on 2nd floor of apartment, uses elevator) Home Accessibility 0 Steps to enter Bathroom Shower/Tub Tub/shower unit Bathroom Toilet Grab bars around toilet Bathroom Equipment Tub/shower chair with back Home Equipment 2 Wheeled walker;4 Wheeled walker Additional Comments Getting MOW and HH recently Prior Function Level of [place] Independent with ADLs;Independent with functional transfers;Independent with ambulation Device used at baseline 2 Wheeled walker;4 Wheeled walker Baseline Ambulation Distance/Assistance household distances Fall History Yes Reason for fall weakness Most recent fall 07/30/19 Lives With Alone Receives Help From Family;Home health ADL Assistance Independent Homemaking Assistance Needs assistance Comments Dtr. assists w/ groceries and transportation needs. Pain Pain Yes Pain Score (not rated) Location R hip/back Interventions Relaxation;Re-positioning Objective Objective Completed OT evaluation as documented. Pt. up in chair upon arrival. In chair at end of evaluation. Activity Tolerance Endurance Tolerates 20 - 30 min activity with rests Activity Tolerance Comments Fatigues easily w/ standing ADL tasks. Cognition Overall Cognitive Status WFL Other (Comment) Very [place] Overall Extremity Assessment Upper Extremity Patient is guarded w/ UE movements, mild rigidity noted. AROM grossly 90-100 degrees shoulder flexion B UE. Strength grossly 3/5 B shoulders, 3+/5 B elbows/wrists/hands. Hand Function Gross Grasp Functional Coordination Functional Sensation Light Touch No apparent deficits ADL Eating/Feeding Assistance Independent;Sitting in chair Eating/Feeding Deficit Setup Grooming Assistance Stand by;Sitting in chair Grooming Deficit Setup;Supervision/safety;Increased time to complete Grooming Comment To wash face and perform oral care (rinse w/ mouth wash) while seated in bedside chair at sink. Bathing Assistance Minimal;Alternating sit/stand Bathing Deficit Setup;Steadying;Verbal cueing;Supervision/safety;Increased time to complete;Right lower leg including foot;Left lower leg including foot Bathing Comment Sponge bath completed in bedside chair at room sink. SBA w/ UB bathing and washing LE's up until mid-calf level. Requires assist to bathe bilateral feet. CGA/min assist for balance while standing at sink to complete emerson-care. Pt. able to reach buttocks; however, struggle noted. UE Dressing Assistance Minimal;Sitting in chair UE Dressing Deficit Setup;Supervision/safety;Increased time to complete;Thread RUE;Thread LUE UE Dressing Comment to don/doff [facility] hospital gown LE Dressing Assistance Maximal;Alternating sit/stand LE Dressing Deficit Setup;Steadying;Requires assistive device for steadying;Verbal cueing;Supervision/safety;Increased time to complete;Don/doff R sock;Don/doff L sock;Pull up over hips LE Dressing Comment Total assist to change socks. Mod/Max assist to pull hospital brief up over hips while standing at sink. Toileting Assistance Not performed Functional Transfers Sit to Stand Min assist;Other (from recliner chair at sink) Functional Mobility Unable to complete mobility to/from sink or bathroom d/t increased hip pain. Balance Sitting - Static Independent Sitting - Dynamic SBA;Modified independence Standing - Static CGA;Support of one upper extremity;Support of both upper extremities Standing - Dynamic Min Assist;CGA;Support of one upper extremity;Support of both upper extremities Assessment Occupational Profile and History Complexity Moderate (Expanded) Performance Skills Deficits Bathing/showering;Dressing;Functional mobility;Meal preparation and cleaning;Personal hygiene and grooming;Toileting Performance Deficit Level High (5 or more deficits) Clinical Decision Making Moderate (min/mod modifications) Complexity Level of Evaluation Moderate Prognosis Good OT Assess/Eval Other (Comment) Roxana presents w/ a decline in ability to manage ADLs/mob s/p recent onset of fall w/ illness along w/ prolonged hospital course. She was recently admitted at [facility] onswing bed for rehab and discharged home alone. She has been struggling more lately w/ management ofADL's. She will benefit from skilled OT while in swing bed to promote maximal level of indep/safety Modified [place] Score Interval Daily Score 0-6 4 Moderately severe disability, unable to walk without assistance and unable to attend toown bodily needs without assistance Patient/Family Training Self Cares tech's to promote increased indep/safety Transfer Training health and safety director's, hand placement Other (Comment) OT POC/goals Recommendation OT Recommendation Home OT;Home with assistance;Other (Comment) (OT during swing bed) OT Equipment Recommended Currently has DME in Place;To Be Determined Barriers to Community Discharge Safety Plan OT Treatment/Intervention Self-care training;Therapeutic exercises;Therapeutic activities;Patient/family training;Safety;Functional activity Progress Progressing toward goals OT Frequency 4 times/week;5 times/week (1-2x/day) OT plan for next session ADL/transfer training If this is the last treatment note, it will serve as the discharge summary Yes End of Session Safety End of Session Safety Chair alarm set/activated;Call light within reach;Nursing aware of session Cosigned by Emiliano Hubbard MD at 08/03/2019 10:06 AM CDT * Gina Moyer, PT - 08/02/2019 11:56 AM CDT 08/02/19 1100 Therapy Visit Treatment Day (swing bed eval) Subjective Patient agreeable to working with PT. States she did not sleep well due to discomfort. No pain now though. Reason for admission DX: CLAUDIO. Fell in kitchen 07/30/19 and brought to ER. Transitioned to swing bed at [facility] on 08/01/2019. Relevant Comorbidities/ Personal Factors to PT [facility] includes at [facility] 06/22-07/18/19 for bactremia, UTI,CA, DM, GERD, HTN, HLD, hypothyroid, insomnia, sepsis, nu, hyst, RTC repair. Transfer to swing bed 08/01/19. Verified Two Patient Identifiers Yes Patient consents to therapy Yes Acute Inpatient PT Time Calculation PT Start Time 0933 PT Stop Time 0949 PT Time Calculation (min) 16 min PT Therapy Interruption (min) 45' eval time total Precautions Precautions Yes/No Yes General Precautions Bed Alarm;Chair Alarm;Fall Risk;Hard of Hearing Instructed on Precautions Yes;Needs reinforcement and education Home Living Type of Home Apartment Home Layout One level;Other (Comment) (2nd floor apt, uses elevator) Home Accessibility 0 Steps to enter Home Equipment 2 Wheeled walker;4 Wheeled walker Additional Comments Getting MOW and HH recently Prior Function Level of [place] Independent with ADLs;Independent with functional transfers;Independent with ambulation Device used at baseline 2 Wheeled walker;4 Wheeled walker Baseline Ambulation Distance/Assistance household distances Fall History Yes Reason for fall weakness Most recent fall 07/30/19 Lives With Alone Receives Help From Family;Home health Pain Pain Patient does not offer or c/o pain Cognition Overall Cognitive Status WFL Arousal/Alertness Appropriate responses to stimuli Attention Span Appears intact Memory Appears intact Orientation Level Oriented X4 Following Commands Follows one step commands with repetition Safety Judgment Good awareness of safety precautions Other (Comment) Very [place] Sensation Light Touch No apparent deficits Additional Comments Denies N/T Overall Extremity Assessment Lower Extremity AROM WFL Lower Extremity Comment / seated MMT motions for B LE Bed Mobility Other (Comment) NT with patient in chair this session TRANSFERS Stand Pivot Transfers Contact guard assist Sit to Stand Min assist;Contact guard assist Other (Comment) stand to sit with CGA. Cues for safety and hand placement. Gait Gait Assistance Contact guard assist Assistive Device 2 Wheeled walker Ambulation Distance (Feet) 20' Pattern Shuffle steps (chair follow, fatigues with gait) Weight Bearing Status Total Other (Comment) Slow yasmin. Balance Sitting - Static Independent Sitting - Dynamic SBA Standing - Static CGA;Support of both upper extremities Standing - Dynamic Min Assist;CGA;Support of both upper extremities Exercises Ankle Pumps x10 B Knee ROM LAQ x10 B Hip Flexion x10 marching B Hip Abduction x10 B seated Other (Comment) cues for ex technique for best strengthening Patient/Family Training Transfer Training x Gait Training x Precautions x Exercise Program x Other (Comment) PT POC, safety with mobility Assessment Personal Factors/Comorbidities Impacting Care 1-2 personal factors/comorbidities Examination of Body Systems Moderate (3 or more Elements) Objectives of Body Systems Impaired bed mobility;Impaired transfers;Impaired ambulation Clinical Presentation of Patient Stable uncomplicated Complexity Level of Evaluation Low Prognosis Good (for goals) PT Assess/Eval Other (Comment) Patient with recent fall and hospitalizations. She presents with impaired mobility and not safe to return home at this time. She would benefit from skilled PT to improve overall mobility and safety so that she can return to her apt safely. Recommendation PT Recommendation Swing Bed Unit PT Equipment Recommended Currently has DME in Place Plan PT Treatments/Interventions Gait Training;Therapeutic Exercises;Therapeutic Activities;Neuromuscular re-education;Patient/family training PT Frequency (5-11 visits/wk) PT plan for next session Progress mobility, EX, endurance and safety If this is the last treatment note,it will serve as the discharge summary Yes End of Session Safety End of Session Safety Chair alarm set/activated;Call light within reach Cosigned by Emiliano Hubbard MD at 08/03/2019 10:06 AM CDT * Laura Cheatham RN - 08/02/2019 9:05 AM CDT 08/02/19 0859 Referral Data Referral Reason Discharge Planning Source of Information Patient Patient Information OB Patient < 19 yrs old No Primary Caregiver Self Support System Immediate family Baseline ADL's Functional Status Independent Living Arrangements Alone Type of Residence Private residence (LOIVES AT [place] [facility]. PLANS TO MOVE IN WITH DAUGHTER IN A FEW WEEKS) Ambulation Assistance No Active DME Four wheel walker Bathing/Grooming Assistance No Dressing Assistance No Behavior Oriented;Cooperative Communication Talks;Understands speaking;Understands Mauritian Current Services Being Provided Home Health FDC;Physical therapy;Occupational therapy;Aide (CURRENT WITH [facility]) Socioeconomic Needs Caregiver Needed No At Risk [...] Type of Residence Private residence Assistance Needed No Discharge assistance Home Care Services (CURRENT WITH [facility]) Patient expects to be discharged to: Home Psychosocial Needs With Indication for Social Work Consult Diagnosis/prognosis resulting in poor adjustment or coping with illness No Diagnosis/prognosis with anticipated outcome of major lifestyle changes, including 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 STATED IS CURRENT WITH [facility] documented in this encounter H&P Notes * Emiliano Hubbard MD - 08/02/2019 8:35 AM CDT Hospitalist History and Physical Admission date: 08/01/2019 Reason for Admission: Physical deconditioning History of present illness: Roxana Ch is a 84-year-old female, who has a past medical history of Cancer ([facility]), Diabetes ([facility]), GERD (gastroesophageal reflux disease), Hyperlipidemia, Hypertension, Hypothyroidism, Insomnia, Sepsis ([facility]), and Vitamin D deficiency.; and a has a past surgical history that includes Abdominal surgery; breast reduction bilateral; Cholecystectomy; colonoscopy; Hemorrhoidectomy; Hysterectomy; inner ear surgery proc unlisted; and repair rotator cuff,acute. Who presents with deconditioning post fall and presyncope secondary to electrolyte abnormalities. Denies fevers, chills,chest pain, shortness of breath, nausea, vomiting or diarrhea. Allergies Allergies Allergen Reactions ??? Septra [Sulfamethoxazole-Trimethoprim] Rash Medication List: Medications Prior to Admission Medication Sig Dispense Refill ??? AMLODIPINE 5 MG tablet TAKE 1 TABLET BY MOUTH DAILY (Patient taking differently: Take 5 mg by mouth daily. ) 90 tablet 1 ??? aspirin EC 81 MG EC tablet Take 81 mg by mouth daily. ??? Cholecalciferol (VITAMIN D) 2000 units Cap Take 2,000 Units by mouth daily. ??? donepezil 10 MG Tab Take 10 mg by mouth every morning. ??? furosemide 20 MG tablet Take 1 tablet (20 mg total) by mouth daily. 30 tablet 0 ??? levothyroxine 50 MCG tablet Take 1 [...] 100 mg by mouth every morning. ??? BENAZEPRIL 20 MG tablet TAKE 1 TABLET BY MOUTH EVERY DAY (Patient taking differently: Take 10 mg by mouth daily. ) 90 tablet 1 ??? trazodone 50 MG tablet Take 50 mg by mouth nightly at bedtime. Current Facility-Administered Medications Medication ??? acetaminophen (TYLENOL) tablet 650 mg ??? docusate sodium (COLACE) capsule 100 mg ??? famotidine (PEPCID) injection 20 mg Or ??? famotidine (PEPCID) tablet 20 mg ??? heparin (porcine) injection 5,000 Units ??? magnesium hydroxide (MILK OF MAGNESIA) 400 MG/5ML suspension 30 mL Past Medical History Past Medical History: Diagnosis [...] file Gets together: Not on file Attends church service: Not on file Active member of [...] positive as per HPI. Physical Exam: Vitals: 08/02/19 0759 BP: 108/57 Pulse: 54 Resp: 18 Temp: 97.4 ??F (36.3 ??C) SpO2: 95% General: Laying in bed, tired. Eyes: EOMI, [...] shifts: I/O last 3 completed shifts: In: 1450 [P.O.:450; I.V.:1000] Out: 800 [Urine:800] Labs: Recent Labs Lab 07/30/19221507/31/1962808/01/19619 NA 124* 127* 136 K 2.8* 4.9 3.8 CL 86* 93* 102 CO2 29.2 25.5 27.4 AGAP 8.8 8.5 6.6 BUN 31* 23* 14 CR 1.43* 0.97 0.80 BUNCREATININ 21.7 23.7 17.5 GFRNON 34* 54* 68* GFR 39* 62* 78* GLU 154* 108* 88 CA 10.2* 9.4 8.6 MAGNESIUM -- 2.4 1.7* Recent Labs Lab 07/30/19221507/31/1962808/01/19619 WBC 8.1 5.0 3.6* RBC 4.48* 4.21* 3.90* HGB 12.8 12.1* 11.2* HCT 36.8 35.0* 33.2* MCV 82.1 83.1 85.1 MCH 28.6 28.7 28.7 MCHC 34.8* 34.6* 33.7 PLT 194 159 165 RDW 13.0 13.2 13.6 MPV 10.5 10.9 10.2 Recent Labs Lab 07/30/192215 AST 42* ALT 68* Recent Labs Lab 07/30/192215 INR 1.1 Invalid input(s): ABG Recent Labs Lab 07/30/19221507/31/19 0041 07/31/19 0629 TROP <0.017 <0.017 <0.017 No results for input(s): PH, PCO2, PO2, [id number], BICARBWB, BASEDEFICIT, BASEEXCESS in the [id number] hours. Imaging & Other Studies No results found. No results found for this visit on 08/01/19. Active Problems: Patient Active Problem List Diagnosis [...] disease) 05/17/2017 ??? Colitis 03/17/2017 ??? Claudication ([facility]) 08/10/2016 ??? 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 Lumbago 08/10/2016 ??? Hypothyroidism 08/07/2015 ??? Insomnia 01/11/2015 ??? Diabetes mellitus ([facility]) 12/25/2014 ??? Hyperlipidemia 12/25/2014 ??? Hypertension 12/25/2014 Assessment & Plan: 84-year-old female admitted to swing bed for deconditioning and rehab, secondary to presyncope withfalls secondary to iatrogenic electrolyte abnormalities from polypharmacy, most likely hydrochlorothiazide that was discontinued. Hospital Course: 84-year-old female presented with presyncope and fall with hyponatremia and hypokalemia. Likely secondary to hydrochlorothiazide that will was discontinued. Continue with Lasix and potassium, benazepril, and Norvasc. ?? A/P Presyncope with fall and electrolyte abnormalities??of hypokalemia and hyponatremia Suspect iatrogenic secondary to??Lasix and possibly hydrochlorothiazide/Lasix/amlodipine,??will hold for now Gentle hydration Troponins negative stable on telemetry Hold antihypertensives for now??as likely cause for electrolyte abnormalities 07/31 resolved with holding of home medications primarily Lasix and hydrochlorothiazide. Will resumeNorvasc, benazepril, Lasix, potassium and hold hydrochlorothiazide. ?? Diabetes ADA diet if pt allows ISS Avoid Metformin while inpatient ?? HTN Hold??Lasix, amlodipine, hydrochlorothiazide, ANGEL inhibitor, monitor trend ?? [...] length of stay to home in the next??2??days pending patient progress ?? EMILIANO HUBBARD MD 08/02/2019 8:37 AM documented in this encounter Nursing Notes * Imelda Murray RN - 08/14/2019 7:30 PM CDT Viet Will (daughter) notified of Labs, antibiotic change, and current condition. All questionsanswered. Daughter very appreciative. documented in this encounter Plan of Treatment [...] POCT GLUCOSE - MARISCAL DOCKED DEVICE Routine 08/16/2019 6:10 AM CDT POCT GLUCOSE - MARISCAL DOCKED DEVICE Routine 08/15/2019 4:28 PM CDT BASIC METABOLIC PANEL Routine 08/15/2019 6:26 AM CDT CBC W/DIFF AUTOMATED Routine 08/15/2019 6:26 AM CDT POCT GLUCOSE - MARISCAL DOCKED DEVICE Routine 08/15/2019 6:18 AM CDT POCT GLUCOSE - MARISCAL DOCKED DEVICE Routine 08/14/2019 8:31 PM CDT POCT GLUCOSE - MARISCAL DOCKED DEVICE Routine 08/14/2019 4:09 PM CDT POCT GLUCOSE - MARISCAL DOCKED DEVICE Routine 08/14/2019 11:10 AM CDT CULTURE, BACTERIA, BLOOD TIMED 08/14/2019 6:29 AM CDT CULTURE, BACTERIA, BLOOD STAT 08/14/2019 6:28 AM CDT POCT GLUCOSE - MARISCAL DOCKED DEVICE Routine 08/14/2019 6:04 AM CDT POCT GLUCOSE - MARISCAL DOCKED DEVICE Routine 08/13/2019 4:38 PM CDT POCT GLUCOSE - MARISCAL DOCKED DEVICE Routine 08/13/2019 5:45 AM CDT POCT GLUCOSE - MARISCAL DOCKED DEVICE Routine 08/12/2019 4:40 PM CDT POCT GLUCOSE - MARISCAL DOCKED DEVICE Routine 08/12/2019 6:07 AM CDT POCT GLUCOSE - MARISCAL DOCKED DEVICE Routine 08/11/2019 9:15 PM CDT POCT GLUCOSE - MARISCAL DOCKED DEVICE Routine 08/11/2019 4:33 PM CDT POCT GLUCOSE - MARISCAL DOCKED DEVICE Routine 08/11/2019 11:29 AM CDT CULTURE, BACTERIA, BLOOD LEXY 08/11/2019 10:01 AM CDT XR CHEST PORTABLE Today 08/11/2019 9:3 8 AM CDT POCT GLUCOSE - MARISCAL DOCKED DEVICE Routine 08/11/2019 7:32 AM CDT CBC W/DIFF AUTOMATED Routine 08/11/2019 6:33 AM CDT POCT GLUCOSE - MARISCAL DOCKED DEVICE Routine 08/10/2019 8:35 PM CDT POCT GLUCOSE - MARISCAL DOCKED DEVICE Routine 08/10/2019 4:46 PM CDT URINALYSIS WI REFLEX TO CULTURE Routine 08/10/2019 11:45 AM CDT URINE BACTERIA CULTURE Routine 08/10/2019 11:45 AM CDT POCT GLUCOSE - MARISCAL DOCKED DEVICE Routine 08/10/2019 11:19 AM CDT POCT GLUCOSE - MARISCAL DOCKED DEVICE Routine 08/10/2019 6:18 AM CDT POCT GLUCOSE - MARISCAL DOCKED DEVICE Routine 08/09/2019 8:20 PM CDT POCT GLUCOSE - MARISCAL DOCKED DEVICE Routine 08/09/2019 4:15 PM CDT POCT GLUCOSE - MARISCAL DOCKED DEVICE Routine 08/09/2019 5:53 AM CDT POCT GLUCOSE - MARISCAL DOCKED DEVICE Routine 08/08/2019 8:21 PM CDT POCT GLUCOSE - MARISCAL DOCKED DEVICE Routine 08/08/2019 5:02 PM CDT POCT GLUCOSE - MARISCAL DOCKED DEVICE Routine 08/08/2019 11:05 AM CDT BASIC METABOLIC PANEL Routine 08/08/2019 6:48 AM CDT CBC W/DIFF AUTOMATED Routine 08/08/2019 6:48 AM CDT POCT GLUCOSE - MARISCAL DOCKED DEVICE Routine 08/07/2019 8:[address] PEL WO CON LEXY 08/07/2019 7:[address] HIP RT WO CON LEXY 08/07/2019 7:42 PM CDT BASIC METABOLIC PANEL Routine 08/07/2019 4:16 PM CDT CBC W/DIFF AUTOMATED Routine 08/07/2019 4:16 PM CDT POCT GLUCOSE - MARISCAL DOCKED DEVICE Routine 08/07/2019 11:56 AM CDT POCT GLUCOSE - MARISCAL DOCKED DEVICE Routine 08/06/2019 8:54 PM CDT POCT GLUCOSE - MARISCAL DOCKED DEVICE Routine 08/06/2019 4:47 PM CDT POCT GLUCOSE - MARISCAL DOCKED DEVICE Routine 08/06/2019 11:07 AM CDT POCT GLUCOSE - MARISCAL DOCKED DEVICE Routine 08/06/2019 6:00 AM CDT POCT GLUCOSE - MARISCAL DOCKED DEVICE Routine 08/05/2019 7:54 PM CDT POCT GLUCOSE - MARISCAL DOCKED DEVICE Routine 08/05/2019 4:13 PM CDT POCT GLUCOSE - MARISCAL DOCKED DEVICE Routine 08/05/2019 11:53 AM CDT BASIC METABOLIC PANEL Routine 08/05/2019 6:19 AM CDT CBC W/DIFF AUTOMATED Routine 08/05/2019 6:19 AM CDT POCT GLUCOSE - MARISCAL DOCKED DEVICE Routine 08/04/2019 10:10 PM CDT POCT GLUCOSE - MARISCAL DOCKED DEVICE Routine 08/04/2019 11:14 AM CDT BASIC METABOLIC PANEL Routine 08/04/2019 9:48 AM CDT CBC W/DIFF AUTOMATED Routine 08/04/2019 9:48 AM CDT POCT GLUCOSE - MARISCAL DOCKED DEVICE Routine 08/04/2019 6:09 AM CDT POCT GLUCOSE - MARISCAL DOCKED DEVICE Routine 08/03/2019 7:49 PM CDT POCT GLUCOSE - MARISCAL DOCKED DEVICE Routine 08/03/2019 5:09 PM CDT POCT GLUCOSE - MARISACL DOCKED DEVICE Routine 08/03/2019 11:44 AM CDT POCT GLUCOSE - MARISCAL DOCKED DEVICE Routine 08/02/2019 8:47 PM CDT POCT GLUCOSE - MARISCAL DOCKED DEVICE Routine 08/02/2019 4:17 PM CDT POCT GLUCOSE - MARISCAL DOCKED DEVICE Routine 08/02/2019 11:50 AM CDT POCT GLUCOSE - MARISCAL DOCKED DEVICE Routine 08/02/2019 5:55 AM CDT POCT GLUCOSE - MARISCAL DOCKED DEVICE Routine 08/01/2019 9:00 PM CDT documented in this encounter Results * POCT glucose (08/16/2019 6:10 AM CDT) [facility] GLUCOSE POC 99 70 - 110 mg/dL 08/16/2019 6:32 AM CDT [facility] INTERFACE 08/16/2019 6:10 AM CDT us Emiliano Hubbard MD POCT ORDERABLES - DEVICE Final Result [facility] INTERFACE US * (ABNORMAL) POCT glucose (08/15/2019 4:28 PM CDT) GLUCOSE POC 112(H) 70 - 110 mg/dL 08/15/2019 4:30 PM CDT [facility] INTERFACE 08/15/2019 4:28 PM CDT us Shy Cosme MD POCT ORDERABLES - DEVICE Final Result [facility] INTERFACE US * (ABNORMAL) BASIC METABOLIC PANEL (08/15/2019 6:26 AM CDT) GLUCOSE 105(H) 70 - 99 MG/DL 08/15/2019 7:01 AM CDT [facility] BUN 22(H) 7 - 18 MG/DL 08/15/2019 7:01 AM T [facility] CREATININE S/P/B 1.07(H) 0.55 - 1.02 MG/DL 08/15/2019 7:01 AM T [facility] SODIUM S/P/B 139 136 - 145 MMOL/L 08/15/2019 7:01 AM T [facility] POTASSIUM S/P/B 4.0 3.5 - 5.1 MMOL/L 08/15/2019 7:01 AM T [facility] CHLORIDE S/P/B 101 100 - 108 MMOL/L 08/15/2019 7:01 AM T [facility] CO2 27.4 21 - 32 MMOL/L 08/15/2019 7:01 AM T [facility] CALCIUM S/P/B 8.7 8.5 - 10.1 MG/DL 08/15/2019 7:01 AM T [facility] ANION GAP 10.6 5 - 15 MMOL/L 08/15/2019 7:01 AM T [facility] BUN CREATININE RATIO 20.6 6 - 26 08/15/2019 7:01 AM CDT [facility] EGFR NON-AFR. AMER. 48(L) >90 ML/MIN/1.7 3 M2 08/15/2019 7:01 AM CDT [facility] EGFR AFR. AMER. 55(L) >90 ML/MIN/1.7 3 M2 08/15/2019 7:01 AM CDT [facility] Comment: NOTE: eGFR is not calculated for patients <18 years of age. This is an estimated GFR (CKD EPI) and should not be used for calculating drug doses. 08/15/2019 6:26 AM CDT Shy Cosme MD LABORATORY Final Result [facility] [id number] [place] [address], * (ABNORMAL) CBC W/DIFF AUTOMATED (08/15/2019 6:26 AM CDT) WBC 3.1(L) 4.4 - 11.0 x10'3/uL 08/15/2019 7:04 AM T [facility] RBC 3.76(L) 4.50 - 5.10 x10'6/uL 08/15/2019 7:04 AM CDT [facility] HGB 10.9(L) 12.3 - 15.3 G/DL 08/15/2019 7:04 AM T [facility] HCT 33.0(L) 35.9 - 44.6 % 08/15/2019 7:04 AM CDT [facility] MCV 87.8 80.0 - 96.0 FL 08/15/2019 7:04 AM CDT [facility] MCH 29.0 25.3 - 30.9 PG [facility]2019 [facility] MCHC 33.0 31.0 - 34.1 G/DL 08/15/2019 7:04 AM [facility] RDW 14.5 12.4 - 15.1 % 08/15/2019 7:04 AM [facility] PLT 180 151 - 353 x10'3/uL 08/15/2019 7:04 AM T [facility] MPV 9.8 9.6 - 12.0 FL 08/15/2019 7:04 AM [facility] RBC MORPHOLOGY NORMAL 08/15/2019 7:04 AM [facility] PLT MORPH. NORMAL 08/15/2019 7:04 AM [facility] WBC MORPHOLOGY NORMAL 08/15/2019 7:04 AM [facility] LYMPHOCYTES % 17.6 15.8 - 45.0 % 08/15/2019 7:04 AM [facility] NEUTROPHILS % 65.8 42.1 - 71.9 % 08/15/2019 7:04 AM [facility] MONOCYTES % 12.7(H) 5.7 - 12.5 % 08/15/2019 7:04 AM [facility] EOSINOPHILS 3.3 0.0 - 5.6 % 08/15/2019 7:04 AM [facility] BASOPHILS 0.3 0.0 - 1.3 % 08/15/2019 7:04 AM [facility] ABS. NEUTROPHILS TOTAL 2.02 1.40 - 6.00 x10'3/uL 08/15/2019 7:04 AM [facility] [facility] IMMATURE GRANS % 0.3 0.0 - 0.5 % 08/15/2019 7:04 AM [facility] ABS. LYMPHOCYTES 0.54(L) 0.80 - 4.70 x10'3/uL 08/15/2019 7:04 AM CDT [facility] 08/15/2019 6:26 AM CDT us Shy Cosme MD LABORATORY Final Result Performing Organization Address [facility]/ZIP Co de Phone Number [facility] [address] [place] [address], * POCT glucose (08/15/2019 6:18 AM CDT) GLUCOSE POC 109 70 - 110 mg/dL 08/15/2019 6:22 AM CDT [facility] ORDERS INTERFACE 08/15/2019 6:18 AM CDT us Shy Cosme MD POCT ORDERABLES - DEVICE Final Result Performing Organization Address [facility] de Phone Number [facility] ORDERS INTERFACE US * (ABNORMAL) POCT glucose (08/14/2019 8:31 PM CDT) GLUCOSE POC 128(H) 70 - 110 mg/dL 08/14/2019 8:42 PM CDT [facility] ORDERS INTERFACE 08/14/2019 8:31 PM CDT us Shy Cosme MD POCT ORDERABLES - DEVICE Final Result Performing Organization Address [facility] de Phone Number [facility] ORDERS INTERFACE US * POCT glucose (08/14/2019 4:09 PM CDT) GLUCOSE POC 88 70 - 110 mg/dL 08/14/2019 4:18 PM CDT [facility] ORDERS INTERFACE 08/14/2019 4:09 PM CDT us Syh Cosme MD POCT ORDERABLES - DEVICE Final Result Performing Organization Address [facility]/ZIP Co de Phone Number [facility] ORDERS INTERFACE US * (ABNORMAL) POCT glucose (08/14/2019 11:10 AM CDT) GLUCOSE POC 124(H) 70 - 110 mg/dL 08/14/2019 11:16 AM CDT [facility] ORDERS INTERFACE 08/14/2019 11:1 0 AM CDT us Shy Cosme MD POCT ORDERABLES - DEVICE Final Result [facility] ORDERS INTERFACE US * CULTURE, BACTERIA, BLOOD (08/14/2019 6:29 AM CDT) SPEC DESCRIPTION BLOOD 08/14/2019 6:23 AM CDT [facility] SPECIAL REQUESTS NO SPECIAL REQUEST 08/14/2019 6:23 AM CDT [facility] CULTURE RESULT NO GROWTH 5 DAYS 08/19/2019 9:37 AM CDT [facility] BLOOD SPECIMEN OBTAINED FOR BLOOD CULTURE / Unknown 08/14/2019 6:29 AM CDT 08/14/2019 6:30 AM CDT us Surjit Ca MD MICROBIOLOGY - GENERAL ORDER DANNA Final Result [facility] [address] [place] [address], [place] [phone] [facility] [address] [place] [address], [place] [phone] * CULTURE, BACTERIA, BLOOD (08/14/2019 6:28 AM CDT) SPEC DESCRIPTION BLOOD 08/14/2019 6:23 AM CDT [facility] SPECIAL REQUESTS NO SPECIAL REQUEST 08/14/2019 6:23 AM CDT [facility] CULTURE RESULT NO GROWTH 5 DAYS 08/19/2019 9:37 AM CDT [facility] BLOOD SPECIMEN OBTAINED FOR BLOOD CULTURE / Unknown 08/14/2019 6:28 AM CDT 08/14/2019 6:29 AM CDT Surjit Ca MD MICROBIOLOGY - GENERAL ORDER DANNA Final Result Performing Organization Address City/[facility]/ZIP Co de Phone Number [facility] [address] [place] [address], [place] [phone] [facility] [address] [place] [address], [place] [phone] * POCT glucose (08/14/2019 6:04 AM CDT) GLUCOSE POC 94 70 - 110 mg/dL 08/14/2019 6:12 AM CDT [facility] ORDERS INTERFACE 08/14/2019 6:04 AM CDT us Shy Cosme MD POCT ORDERABLES - DEVICE Final Result Performing Organization Address City/[facility]/ZIP Co de Phone Number [facility] ORDERS INTERFACE US * (ABNORMAL) POCT glucose (08/13/2019 4:38 PM CDT) GLUCOSE POC 115(H) 70 - 110 mg/dL 08/13/2019 5:04 PM CDT [facility] ORDERS INTERFACE 08/13/2019 4:38 PM CDT us Shy Cosme MD POCT ORDERABLES - DEVICE Final Result [facility] ORDERS INTERFACE US * POCT glucose (08/13/2019 5:45 AM CDT) GLUCOSE POC 97 70 - 110 mg/dL 08/13/2019 6:05 AM CDT [facility] ORDERS INTERFACE 08/13/2019 5:45 AM CDT us Shy Cosme MD POCT ORDERABLES - DEVICE Final Result Performing Organization Address [facility] de Phone Number [facility] ORDERS INTERFACE US * POCT glucose (08/12/2019 4:40 PM CDT) GLUCOSE POC 91 70 - 110 mg/dL 08/12/2019 4:54 PM CDT [facility] ORDERS INTERFACE 08/12/2019 4:40 PM CDT Shy Cosme MD POCT ORDERABLES - DEVICE Final Result Performing Organization Address [facility] de Phone Number [facility] ORDERS INTERFACE US * POCT glucose (08/12/2019 6:07 AM CDT) GLUCOSE POC 83 70 - 110 mg/dL 08/12/2019 6:13 AM CDT [facility] ORDERS INTERFACE 08/12/2019 6:07 AM CDT Shy Cosme MD POCT ORDERABLES - DEVICE Final Result Performing Organization Address [facility] Phone Number [facility] ORDERS INTERFACE US * POCT glucose (08/11/2019 9:15 PM CDT) GLUCOSE POC 107 70 - 110 mg/dL 08/11/2019 9:24 PM CDT [facility] ORDERS INTERFACE 08/11/2019 9:15 PM CDT Shy Cosme MD POCT ORDERABLES - DEVICE Final Result Performing Organization Address [facility] de Phone Number [facility] ORDERS INTERFACE US * POCT glucose (08/11/2019 4:33 PM CDT) GLUCOSE POC 103 70 - 110 mg/dL 08/11/2019 4:35 PM CDT [facility] ORDERS INTERFACE 08/11/2019 4:33 PM CDT Shy Cosme MD POCT ORDERABLES - DEVICE Final Result Performing Organization Address [facility]/ZIP Co de Phone Number [facility] ORDERS INTERFACE US * (ABNORMAL) POCT glucose (08/11/2019 11:29 AM CDT) GLUCOSE POC 144(H) 70 - 110 mg/dL 08/11/2019 11:37 AM CDT [facility] ORDERS INTERFACE 08/11/2019 11:2 9 AM CDT us Shy Cosme MD POCT ORDERABLES - DEVICE Final Result [facility] ORDERS INTERFACE US * (ABNORMAL) CULTURE, BACTERIA, BLOOD (08/11/2019 10:01 AM CDT) SPEC DESCRIPTION BLOOD-PEDIATRI C VOLUME 08/11/2019 8:31 AM CDT [facility] SPECIAL REQUESTS NO SPECIAL REQUEST 08/11/2019 8:31 AM CDT [facility] GRAM STAIN RESULT GRAM NEGATIVE RODS 08/14/2019 10:02 AM CDT [facility] CULTURE RESULT GROWTH OF KLEBSIELLA PNEUMONIAE (AA) 08/15/2019 4:05 PM CDT [facility] CULTURE RESULT postive bc GNR ??08/14/19 called to randall parekh on inpat at [id number] akf 08/15/2019 4:05 PM CDT [facility] BLOOD SPECIMEN OBTAINED FOR BLOOD CULTURE / Unknown 08/11/2019 10:01 AM CDT 08/11/2019 10:02 AM CDT Narrative Organism Antibiotic Method Susceptibility Klebsiella pneumoniae AMPICILLIN FELIX (VITEK) >=32: Resistant Klebsiella pneumoniae AMPICILLIN/SULBACTAM FELIX (VITEK) 4: Sensitive Klebsiella pneumoniae CEFTRIAXONE FELIX (VITEK) <=1: Sensitive Klebsiella pneumoniae CEFTAZIDIME FELIX (VITEK) <=1: Sensitive Klebsiella pneumoniae CEFAZOLIN FELIX (VITEK) <=4: Sensitive Klebsiella pneumoniae ESBL FELIX (VITEK) NEG: Sensitive Klebsiella pneumoniae GENTAMICIN FELIX (VITEK) <=1: Sensitive Klebsiella pneumoniae LEVOFLOXACIN FELIX (VITEK) <=0.12: Sensitive Klebsiella pneumoniae PIPRACIL/TAZO FELIX (VITEK) <=4: Sensitive Klebsiella pneumoniae TRIMETH-SULFAMETH. FELIX (VITEK) <=20: Sensitive Shy Cosme MD MICROBIOLOGY - GENERAL ORDERAB LES Final Result [facility] [address] [place] [address], [place] [phone] [facility] [address] [place] [address], [place] [phone] * XR CHEST PORTABLE (08/11/2019 9:38 AM CDT) Anatomical Region Laterality Modality Chest Radiographic Lacy ging 08/11/2019 9:41 AM CDT Impressions 08/11/2019 9:55 AM CDT IMPRESSION: No evidence of acute cardiopulmonary disease. Normal heart size with atherosclerotic aorta. Scattered interstitial fibrosis and no focal consolidation, overt failure or large pleural effusion. Chronic changes present within the spine and shoulders. Interpreted By: Andrew Massey, 08/11/2019 9:41 AM Narrative 08/11/2019 9:55 AM CDT IMAGING STUDIES: XR CHEST PORTABLE DATE: 08/11/2019 9:24 AM INDICATION: Fever ? COMPARISON: No comparisons. TECHNIQUE: AP portable upright Procedure Note Andrew Massey MD - 08/11/2019 IMAGING STUDIES: XR CHEST PORTABLE DATE: 08/11/2019 9:24 AM INDICATION: Fever COMPARISON: No comparisons. TECHNIQUE: AP portable upright IMPRESSION: No evidence of acute cardiopulmonary disease. Normal heart size with atherosclerotic aorta. Scattered interstitial fibrosis and no focal consolidation, overtfailure or large pleural effusion. Chronic changes present within the spine and shoulders. Interpreted By: Andrew Massey, 08/11/2019 9:41 AM Shy Cosme MD GENERAL IMAGING Final Result * (ABNORMAL) POCT glucose (08/11/2019 7:32 AM CDT) GLUCOSE POC 125(H) 70 - 110 mg/dL 08/11/2019 7:42 AM CDT [facility] ORDERS INTERFACE 08/11/2019 7:32 AM CDT Shy Cosme MD POCT ORDERABLES - DEVICE Final Result [facility] ORDERS INTERFACE US * (ABNORMAL) CBC W/DIFF AUTOMATED (08/11/2019 6:33 AM CDT) Pathologist [facility] WBC 9.8 4.4 - 11.0 x10'3/uL 08/11/2019 7:11 AM CDT [facility] RBC 3.98(L) 4.50 - 5.10 x10'6/uL 08/11/2019 7:11 AM CDT [facility] HGB 11.7(L) 12.3 - 15.3 G/DL 08/11/2019 7:11 AM CDT [facility] HCT 35.2(L) 35.9 - 44.6 % 08/11/2019 7:11 AM CDT [facility] MCV 88.4 80.0 - 96.0 FL 08/11/2019 7:11 AM CDT [facility] MCH 29.4 25.3 - 30.9 PG 08/11/2019 7:11 AM CDT [facility] MCHC 33.2 31.0 - 34.1 G/DL 08/11/2019 7:11 AM CDT [facility] RDW 14.6 12.4 - 15.1 % 08/11/2019 7:11 AM CDT [facility] PLT 165 151 - 353 x10'3/uL 08/11/2019 7:11 AM CDT [facility] MPV 9.2(L) 9.6 - 12.0 FL 08/11/2019 7:11 AM CDT [facility] SEG NEUTROPHILS 93(H) 42 - 72 % 0 7:46 AM CDT [facility] LYMPHOCYTES 3(L) 15.8 - 45.0 % 08/11/2019 7:46 AM CDT [facility] MONOCYTES 4(L) 5.7 - 12.5 % 08/11/2019 7:46 AM CDT [facility] ABS. NEUTROPHILS TOTAL 9.11(H) 1.40 - 6.00 x10'3/uL 08/11/2019 7:46 AM CDT [facility] ABS. LYMPHOCYTES 0.29(L) 0.80 - 4.70 x10'3/uL 08/11/2019 7:46 AM T [facility] PLT MORPH. NORMAL 08/11/2019 7:46 AM T [facility] RBC MORPHOLOGY SLIGHT 08/11/2019 7:46 AM CDT [facility] Comment:ANISOCYTOSIS WBC MORPHOLOGY NORMAL 08/11/2019 7:46 AM T [facility] 08/11/2019 6:33 AM CDT us Tori Coon NP LABORATORY Edited Result - Final [facility] [address] [place] [address], [place] [phone] * (ABNORMAL) POCT glucose (08/10/2019 8:35 PM CDT) [facility] GLUCOSE POC 138(H) 70 - 110 mg/dL 08/10/2019 9:46 PM CDT [facility] ORDERS INTERFACE 08/10/2019 8:35 PM CDT us Tori L Coon REPORTING MANAGER POCT ORDERABLES - DEVICE Lisa l Result [facility] ORDERS INTERFACE US * (ABNORMAL) POCT glucose (08/10/2019 4:46 PM CDT) GLUCOSE POC 123(H) 70 - 110 mg/dL 08/10/2019 4:58 PM CDT [facility] ORDERS INTERFACE 08/10/2019 4:46 PM CDT us Tori Coon REPORTING MANAGER POCT ORDERABLES - DEVICE Lisa l Result [facility] ORDERS INTERFACE US * (ABNORMAL) CULTURE URINE (08/10/2019 11:45 AM CDT) SPEC DESCRIPTION URINE CLEAN CATCH 08/10/2019 12:17 PM CDT [facility] SPECIAL REQUESTS NO SPECIAL REQUEST 08/10/2019 12:17 PM CDT [facility] CULTURE RESULT >100,000 COL/ML KLEBSIELLA PNEUMONIAE (A) 08/11/2019 9:04 PM CDT [facility] URINE SPECIMEN OBTAINED BY CLEAN CATCH PROCEDURE / Unknown 08/10/2019 11:45 AM CDT 08/10/2019 12:16 PM CDT Narrative Organism Antibiotic Method Susceptibility Klebsiella pneumoniae AMPICILLIN FELIX (VITEK) >=32: Resistant Klebsiella pneumoniae AMPICILLIN/SULBACTAM FELIX (VITEK) 4: Sensitive Klebsiella pneumoniae CEFTRIAXONE FELIX (VITEK) <=1: Sensitive Klebsiella pneumoniae CEFTAZIDIME FELIX (VITEK) <=1: Sensitive Klebsiella pneumoniae CEFAZOLIN FELIX (VITEK) <=4: Sensitive Klebsiella pneumoniae ESBL FELIX (VITEK) NEG: Sensitive Klebsiella pneumoniae NITROFURANTOIN FELIX (VITEK) <=16: Sensitive Klebsiella pneumoniae GENTAMICIN FELIX (VITEK) <=1: Sensitive Klebsiella pneumoniae LEVOFLOXACIN FELIX (VITEK) <=0.12: Sensitive Klebsiella pneumoniae PIPRACIL/TAZO FELIX (VITEK) <=4: Sensitive Klebsiella pneumoniae TRIMETH-SULFAMETH. FELIX (VITEK) <=20: Sensitive Tori Coon NP MICROBIOLOGY - GENERAL ORDERA BLES Final Result [facility] [address] [facility] [place] [address], [place] [phone] [facility] [address] [place] [address], [place] [phone] * (ABNORMAL) URINALYSIS WI REFLEX TO CULTURE (08/10/2019 11:45 AM CDT) COLOR (U) YELLOW 08/10/2019 12:16 PM CDT [facility] TRANSPARENCY CLOUDY 08/10/2019 12:16 PM CDT [facility] SPECIFIC GRAVITY (U) 1.010 1.000 - 1.030 08/10/2019 12:16 PM CDT [facility] U PH 6.0 5.0 - 9.0 08/10/2019 12:16 PM CDT [facility] LEUKOCYTES (U) 3+(A) NEGATIVE 08/10/2019 12:16 PM CDT [facility] NITRITES NEGATIVE NEGATIVE 08/10/2019 12:16 PM CDT [facility] PROTEIN (U) 1+(A) NEGATIVE 08/10/2019 12:16 PM T [facility] URINE GLUCOSE NEGATIVE NEGATIVE 08/10/2019 12:16 PM T [facility] KETONES MG/DL (U) NEGATIVE NEGATIVE 08/10/2019 12:16 PM T [facility] BILIRUBIN (U) NEGATIVE NEGATIVE 08/10/2019 12:16 PM T [facility] BLOOD (U) 2+(A) NEGATIVE 08/10/2019 12:16 PM CDT [facility] WBC/HPF TOO NUMEROUS TO COUNT 0 - 5 /HPF 08/10/2019 12:16 PM CDT [facility] RBC/HPF NONE SEEN 0 - 5 /HPF 08/10/2019 12:16 PM CDT [facility] EPI/HPF RARE /HPF 08/10/2019 12:16 PM CDT [facility] CULTURE & SENSITIVITY INDICATED? SPECIMEN SETUP FOR CULTURE 08/10/2019 12:16 PM CDT [facility] BACTERIA (U) MODERATE /HPF 08/10/2019 12:16 PM CDT [facility] URINE SPECIMEN OBTAINED BY CLEAN CATCH PROCEDURE / Unknown 08/10/2019 11:45 AM CDT us Tori Coon REPORTING MANAGER URINE ORDERABLES Final Result Performing Organization Address [facility]/ZIP Co de Phone Number [facility] [address] [place] [address], [place] [phone] * (ABNORMAL) POCT glucose (08/10/2019 11:19 AM CDT) GLUCOSE POC 111(H) 70 - 110 mg/dL 08/10/2019 11:43 AM CDT [facility] ORDERS INTERFACE 08/10/2019 11:1 9 AM CDT us Tori Coon NP POCT ORDERABLES - DEVICE Lisa l Result [facility] ORDERS INTERFACE US * POCT glucose (08/10/2019 6:18 AM CDT) GLUCOSE POC 108 70 - 110 mg/dL 08/10/2019 6:32 AM CDT [facility] ORDERS INTERFACE 08/10/2019 6:18 AM CDT us Tori Coon NP POCT ORDERABLES - DEVICE Lisa l Result [facility] ORDERS INTERFACE US * POCT glucose (08/09/2019 8:20 PM CDT) GLUCOSE POC 109 70 - 110 mg/dL 08/09/2019 9:07 PM CDT [facility] ORDERS INTERFACE 08/09/2019 8:20 PM CDT us Tori Coon REPORTING MANAGER POCT ORDERABLES - DEVICE Lisa l Result Performing Organization Address [facility] de Phone Number [facility] ORDERS INTERFACE US * POCT glucose (08/09/2019 4:15 PM CDT) GLUCOSE POC 78 70 - 110 mg/dL 08/09/2019 4:39 PM CDT [facility] ORDERS INTERFACE 08/09/2019 4:15 PM CDT us Tori Coon NP POCT ORDERABLES - DEVICE Lisa l Result Performing Organization Address [facility] de Phone Number [facility] ORDERS INTERFACE US * POCT glucose (08/09/2019 5:53 AM CDT) GLUCOSE POC 103 70 - 110 mg/dL 08/09/2019 6:04 AM CDT [facility] ORDERS INTERFACE 08/09/2019 5:53 AM CDT us Tori Coon NP POCT ORDERABLES - DEVICE Lisa l Result Performing Organization Address [facility] de Phone Number [facility] ORDERS INTERFACE US * (ABNORMAL) POCT glucose (08/08/2019 8:21 PM CDT) GLUCOSE POC 139(H) 70 - 110 mg/dL 08/08/2019 8:35 PM CDT [facility] ORDERS INTERFACE 08/08/2019 8:21 PM CDT us Bijan Wilburn MD POCT ORDERABLES - DEVICE Final R esult Performing Organization Address [facility]/State/[facility] Co de Phone Number [facility] ORDERS INTERFACE US * POCT glucose (08/08/2019 5:02 PM CDT) GLUCOSE POC 101 70 - 110 mg/dL 08/08/2019 5:08 PM CDT [facility] ORDERS INTERFACE 08/08/2019 5:02 PM CDT Bijan Wilburn MD POCT ORDERABLES - DEVICE Final R esult Performing Organization Address [facility] de Phone Number [facility] ORDERS INTERFACE US * (ABNORMAL) POCT glucose (08/08/2019 11:05 AM CDT) GLUCOSE POC 165(H) 70 - 110 mg/dL 08/08/2019 11:12 AM CDT [facility] ORDERS INTERFACE 08/08/2019 11:0 5 AM CDT Bijan Wilburn MD POCT ORDERABLES - DEVICE Final R esult Performing Organization Address [facility] de Phone Number [facility] ORDERS INTERFACE US * (ABNORMAL) BASIC METABOLIC PANEL (08/08/2019 6:48 AM CDT) GLUCOSE 107(H) 70 - 99 MG/DL 08/08/2019 7:42 AM CDT [facility] BUN 15 7 - 18 MG/DL 08/08/2019 7:42 AM CDT [facility] CREATININE S/P/B 1.09(H) 0.55 - 1.02 MG/DL 08/08/2019 7:42 AM CDT [facility] SODIUM S/P/B 140 136 - 145 MMOL/L 08/08/2019 7:42 AM CDT [facility] POTASSIUM S/P/B 4.4 3.5 - 5.1 MMOL/L 08/08/2019 7:42 AM CDT [facility] CHLORIDE S/P/B 104 100 - 108 MMOL/L 08/08/2019 7:42 AM CDT [facility] CO2 31.7 21 - 32 MMOL/L 08/08/2019 7:42 AM CDT [facility] CALCIUM S/P/B 9.7 8.5 - 10.1 MG/DL 08/08/2019 7:42 AM CDT [facility] ANION GAP 4.3(L) 5 - 15 MMOL/L 08/08/2019 7:42 AM CDT [facility] BUN CREATININE RATIO 13.8 6 - 26 08/08/2019 7:42 AM T [facility] EGFR NON-AFR. AMER. 47(L) >90 ML/MIN/1.7 3 M2 08/08/2019 7:42 AM CDT [facility] EGFR AFR. AMER. 54(L) >90 ML/MIN/1.7 3 M2 08/08/2019 7:42 AM T [facility] Comment: NOTE: eGFR is not calculated for patients <18 years of age. This is an estimated GFR (CKD EPI) and should not be used for calculating drug doses. 08/08/2019 6:48 AM CDT us Kena Dos Santos ER NURSE LABORATORY Final Re sult [facility] [address] [place] [address], * (ABNORMAL) CBC W/DIFF AUTOMATED (08/08/2019 6:48 AM CDT) WBC 4.5 4.4 - 11.0 x10'3/uL 08/08/2019 7:37 AM CDT [facility] RBC 4.09(L) 4.50 - 5.10 x10'6/uL 08/08/2019 7:37 AM CDT [facility] HGB 11.9(L) 12.3 - 15.3 G/DL 08/08/2019 7:37 AM CDT [facility] HCT 36.4 35.9 - 44.6 % 08/08/2019 7:37 AM CDT [facility] MCV 89.0 80.0 - 96.0 FL 08/08/2019 7:37 AM CDT [facility] MCH 29.1 25.3 - 30.9 PG 08/08/2019 7:37 AM T [facility] MCHC 32.7 31.0 - 34.1 G/DL 08/08/2019 7:37 AM T [facility] RDW 14.5 12.4 - 15.1 % 08/08/2019 7:37 AM [facility] PLT 202 151 - 353 x10'3/uL 08/08/2019 7:37 AM T [facility] MPV 9.3(L) 9.6 - 12.0 FL 08/08/2019 7:37 AM T [facility] RBC MORPHOLOGY NORMAL 08/08/2019 7:37 AM [facility] PLT MORPH. NORMAL 08/08/2019 7:37 AM [facility] WBC MORPHOLOGY NORMAL 08/08/2019 7:37 AM T [facility] LYMPHOCYTES % 14.4(L) 15.8 - 45.0 % 08/08/2019 7:37 AM T [facility] NEUTROPHILS % 74.1(H) 42.1 - 71.9 % 08/08/2019 7:37 AM T [facility] MONOCYTES % 7.7 5.7 - 12.5 % 08/08/2019 7:37 AM T [facility] EOSINOPHILS 2.4 0.0 - 5.6 % 08/08/2019 7:37 AM CDT [facility] BASOPHILS 0.7 0.0 - 1.3 % 08/08/2019 7:37 AM CDT [facility] ABS. NEUTROPHILS TOTAL 3.35 1.40 - 6.00 x10'3/uL 08/08/2019 7:37 AM CDT [facility] IMMATURE GRANS % 0.7(H) 0.0 - 0.5 % 08/08/2019 7:37 AM CDT [facility] ABS. LYMPHOCYTES 0.65(L) 0.80 - 4.70 x10'3/uL 08/08/2019 7:37 AM CDT [facility] 08/08/2019 6:48 AM CDT [facility] NURSE LABORATORY Final Re sult [facility] [id number] [place] [address], [place] [phone] * POCT glucose (08/07/2019 8:53 PM CDT) [facility] GLUCOSE POC 105 70 - 110 mg/dL 08/07/2019 9:03 PM CDT [facility] ORDERS INTERFACE 08/07/2019 8:53 PM CDT Kena Dos Santos ER NURSE POCT ORDERABLES - DEVICE Final Result [facility] ORDERS INTERFACE US * CT PEL WO CON (08/07/2019 7:42 PM CDT) Anatomical Region Laterality Modality Pelvis Computed Tomogra phy 08/08/2019 8:39 AM CDT Impressions 08/08/2019 8:41 AM CDT IMPRESSION: ?? Redemonstration of multilobulated mass right gluteal subcutaneous tissues measuring 56 x 45 mm on today's examination, grossly similar in configuration, with decrease in amount of surrounding fat stranding. Nonspecific findings most consistent with subcutaneous hematoma. Degenerative changes lower lumbar spine. Bony pelvis and proximal femurs appear intact. Only mild degenerative changes present within the hips. Degenerative changes present within the SI joints and pubic symphysis. Vascular calcifications. Interpreted By: Andrew Massey, 08/08/2019 8:39 AM Narrative 08/08/2019 8:41 AM CDT IMAGING STUDIES: CT PEL WO CON ? DATE: 08/07/2019 7:41 PM INDICATION: recent fall without fracture; hematoma noted; now expanded Pelvis trauma, fx known or suspected, xray insufficient ?? COMPARISON: CT pelvis 09/29/2019, CT right hip 08/07/2019 CONTRAST: No intravenous contrast. Radiation dose reduction technique was utilized. Procedure Note Andrew Massey MD - 08/08/2019 IMAGING STUDIES: CT PEL WO CON DATE: 08/07/2019 7:41 PM INDICATION: recent fall without fracture; hematoma noted; now expanded Pelvis trauma, fx known or suspected, xray insufficient COMPARISON: CT pelvis 09/29/2019, CT right hip 08/07/2019 CONTRAST: No intravenous contrast. Radiation dose reduction technique was utilized. IMPRESSION: Redemonstration of multilobulated mass right gluteal subcutaneoustissues measuring 56 x 45 mm on today's examination, grossly similar in configuration, with decrease in amount of surrounding fat stranding. Nonspecific findings most consistent with subcutaneous hematoma. Degenerative changes lower lumbar spine. Bony pelvis and proximal femurs appear intact. Only mild degenerative changes present within the hips. Degenerative changes present within the SI joints and pubic symphysis. Vascular calcifications. Interpreted By: Andrew Massey, 08/08/2019 8:39 AM us Kena Dos Santos ER NURSE CT Final Re sult * CT HIP RT WO CON (08/07/2019 7:42 PM CDT) Anatomical Region Laterality Modality Hip Computed Tomogra phy 08/08/2019 8:33 AM CDT Impressions 08/08/2019 8:38 AM CDT IMPRESSION: ?? Bony structures appear grossly intact. Mild degenerative changes right hip. Should occult fracture be suspected, correlate with MRI. Interpreted By: Andrew Massey, 08/08/2019 8:33 AM Narrative 08/08/2019 8:38 AM CDT IMAGING STUDIES: CT HIP RT WO CON ? DATE: 08/07/2019 7:41 PM INDICATION: recent fall; compare to CT on 07/29; COMPARISON: CT pelvis 08/07/2019, 07/30/2019 CONTRAST: No intravenous contrast. Radiation dose reduction technique was utilized. Procedure Note Andrew Massey MD - 08/08/2019 IMAGING STUDIES: CT HIP RT WO CON DATE: 08/07/2019 7:41 PM INDICATION: recent fall; compare to CT on 07/29; COMPARISON: CT pelvis 08/07/2019, 07/30/2019 CONTRAST: No intravenous contrast. Radiation dose reduction technique was utilized. IMPRESSION: Bony structures appear grossly intact. Mild degenerative changes righthip. Should occult fracture be suspected, correlate with MRI. Interpreted By: Andrew Massey, 08/08/2019 8:33 AM us Kena Dos Santos ER NURSE CT Final Re sult * (ABNORMAL) BASIC METABOLIC PANEL (08/07/2019 4:16 PM CDT) GLUCOSE 110(H) 70 - 99 MG/DL 08/07/2019 4:40 PM CDT [facility] BUN 14 7 - 18 MG/DL 08/07/2019 4:40 PM CDT [facility] CREATININE S/P/B 0.97 0.55 - 1.02 MG/DL 08/07/2019 4:40 PM CDT [facility] SODIUM S/P/B 138 136 - 145 MMOL/L 08/07/2019 4:40 PM CDT [facility] POTASSIUM S/P/B 4.0 3.5 - 5.1 MMOL/L 08/07/2019 4:40 PM CDT [facility] CHLORIDE S/P/B 102 100 - 108 MMOL/L 08/07/2019 4:40 PM CDT [facility] CO2 29.9 21 - 32 MMOL/L 08/07/2019 4:40 PM T [facility] CALCIUM S/P/B 9.6 8.5 - 10.1 MG/DL 08/07/2019 4:40 PM T [facility] ANION GAP 6.1 5 - 15 MMOL/L 08/07/2019 4:40 PM T [facility] BUN CREATININE RATIO 14.4 6 - 26 08/07/2019 4:40 PM T [facility] EGFR NON-AFR. AMER. 54(L) >90 ML/MIN/1.7 3 M2 08/07/2019 4:40 PM T [facility] EGFR AFR. AMER. 62(L) >90 ML/MIN/1.7 3 M2 08/07/2019 4:40 PM T [facility] Comment: NOTE: eGFR is not calculated for patients <18 years of age. This is an estimated GFR (CKD EPI) and should not be used for calculating drug doses. 08/07/2019 4:16 PM CDT us Kena Dos Santos ER NURSE LABORATORY Final Re sult [facility] [address] [place] [address], [place] [phone] * (ABNORMAL) CBC W/DIFF AUTOMATED (08/07/2019 4:16 PM CDT) WBC 5.4 4.4 - 11.0 x10'3/uL 08/07/2019 4:26 PM CDT [facility] RBC 4.02(L) 4.50 - 5.10 x10'6/uL 08/07/2019 4:26 PM CDT [facility] HGB 11.7(L) 12.3 - 15.3 G/DL 08/07/2019 4:26 PM CDT [facility] HCT 35.7(L) 35.9 - 44.6 % 08/07/2019 4:26 PM CDT [facility] MCV 88.8 80.0 - 96.0 FL 08/07/2019 4:26 PM CDT [facility] MCH 29.1 25.3 - 30.9 PG 08/07/2019 4:26 PM CDT [facility] MCHC 32.8 31.0 - 34.1 G/DL 08/07/2019 4:26 PM CDT [facility] RDW 14.2 12.4 - 15.1 % 08/07/2019 4:26 PM CDT [facility] PLT 198 151 - 353 x10'3/uL 08/07/2019 4:26 PM T [facility] MPV 9.1(L) 9.6 - 12.0 FL 08/07/2019 4:26 PM CDT [facility] RBC MORPHOLOGY NORMAL 08/07/2019 4:26 PM T [facility] PLT MORPH. NORMAL 08/07/2019 4:26 PM CDT [facility] WBC MORPHOLOGY NORMAL 08/07/2019 4:26 PM CDT [facility] LYMPHOCYTES % 15.2(L) 15.8 - 45.0 % 08/07/2019 4:26 PM CDT [facility] NEUTROPHILS % 74.0(H) 42.1 - 71.9 % 08/07/2019 4:26 PM CDT [facility] MONOCYTES % 7.2 5.7 - 12.5 % 08/07/2019 4:26 PM CDT [facility] EOSINOPHILS 2.6 0.0 - 5.6 % 08/07/2019 4:26 PM CDT [facility] BASOPHILS 0.4 0.0 - 1.3 % 08/07/2019 4:26 PM CDT [facility] ABS. NEUTROPHILS TOTAL 3.99 1.40 - 6.00 x10'3/uL 08/07/2019 4:26 PM CDT [facility] IMMATURE GRANS % 0.6(H) 0.0 - 0.5 % 08/07/2019 4:26 PM CDT [facility] ABS. LYMPHOCYTES 0.82 0.80 - 4.70 x10'3/uL 08/07/2019 4:26 PM CDT [facility] 08/07/2019 4:16 PM CDT Kena Dos Santos APRN LABORATORY Final Re sult [facility] [address] [place] [address], * (ABNORMAL) POCT glucose (08/07/2019 11:56 AM CDT) [facility] Signature GLUCOSE POC 123(H) 70 - 110 mg/dL 08/07/2019 12:39 PM CDT [facility] ORDERS INTERFACE 08/07/2019 11:5 6 AM CDT Kena Dos Santos ER NURSE POCT ORDERABLES - DEVICE Final Result [facility] ORDERS INTERFACE US * (ABNORMAL) POCT glucose (08/06/2019 8:54 PM CDT) GLUCOSE POC 116(H) 70 - 110 mg/dL 08/06/2019 9:51 PM CDT [facility] ORDERS INTERFACE 08/06/2019 8:54 PM CDT Kenaareli Dos Santos ER NURSE POCT ORDERABLES - DEVICE Final Result Performing Organization Address City/[facility]/ZIP Co de Phone Number [facility] ORDERS INTERFACE US * POCT glucose (08/06/2019 4:47 PM CDT) GLUCOSE POC 94 70 - 110 mg/dL 08/06/2019 5:02 PM CDT [facility] ORDERS INTERFACE 08/06/2019 4:47 PM CDT Kena Dos Santos ER NURSE POCT ORDERABLES - DEVICE Final Result Performing Organization Address City/[facility]/ZIP Co de Phone Number [facility] ORDERS INTERFACE US * (ABNORMAL) POCT glucose (08/06/2019 11:07 AM CDT) GLUCOSE POC 172(H) 70 - 110 mg/dL 08/06/2019 11:33 AM CDT [facility] ORDERS INTERFACE 08/06/2019 11:0 7 AM CDT Kena Dos Santos APRN POCT ORDERABLES - DEVICE Final Result [facility] ORDERS INTERFACE US * POCT glucose (08/06/2019 6:00 AM CDT) GLUCOSE POC 105 70 - 110 mg/dL 08/06/2019 6:29 AM CDT [facility] ORDERS INTERFACE 08/06/2019 6:00 AM CDT Kena Dos Santos ER NURSE POCT ORDERABLES - DEVICE Final Result Performing Organization Address [facility] Co de Phone Number [facility] ORDERS INTERFACE US * (ABNORMAL) POCT glucose (08/05/2019 7:54 PM CDT) GLUCOSE POC 123(H) 70 - 110 mg/dL 08/05/2019 8:31 PM CDT [facility] ORDERS INTERFACE 08/05/2019 7:54 PM CDT us Ciarra Cancnio ER NURSE POCT ORDERABLES - DEVICE Final Result Performing Organization Address [facility] de Phone Number [facility] ORDERS INTERFACE US * POCT glucose (08/05/2019 4:13 PM CDT) GLUCOSE POC 107 70 - 110 mg/dL 08/05/2019 4:15 PM CDT [facility] ORDERS INTERFACE 08/05/2019 4:13 PM CDT Ciarra Cancino ER NURSE POCT ORDERABLES - DEVICE Final Result Performing Organization Address [facility] de Phone Number [facility] ORDERS INTERFACE US * (ABNORMAL) POCT glucose (08/05/2019 11:53 AM CDT) GLUCOSE POC 123(H) 70 - 110 mg/dL 08/05/2019 12:05 PM CDT [facility] ORDERS INTERFACE 08/05/2019 11:5 3 AM CDT Ciarra Cancino ER NURSE POCT ORDERABLES - DEVICE Final Result Performing Organization Address [facility] Co de Phone Number [facility] ORDERS INTERFACE US * (ABNORMAL) BASIC METABOLIC PANEL (08/05/2019 6:19 AM CDT) GLUCOSE 100(H) 70 - 99 MG/DL 08/05/2019 6:46 AM CDT [facility] BUN 12 7 - 18 MG/DL 08/05/2019 6:46 AM T [facility] CREATININE S/P/B 0.98 0.55 - 1.02 MG/DL 08/05/2019 6:46 AM [facility] SODIUM S/P/B 140 136 - 145 MMOL/L 08/05/2019 6:46 AM [facility] POTASSIUM S/P/B 3.9 3.5 - 5.1 MMOL/L 08/05/2019 6:46 AM [facility] CHLORIDE S/P/B 104 100 - 108 MMOL/L 08/05/2019 6:46 AM [facility] CO2 28.3 21 - 32 MMOL/L 08/05/2019 6:46 AM [facility] CALCIUM S/P/B 9.1 8.5 - 10.1 MG/DL 08/05/2019 6:46 AM [facility] ANION GAP 7.7 5 - 15 MMOL/L 08/05/2019 6:46 AM [facility] BUN CREATININE RATIO 12.2 6 - 26 08/05/2019 6:46 AM [facility] EGFR NON-AFR. AMER. 53(L) >90 ML/MIN/1.7 3 M2 08/05/2019 6:46 AM [facility] EGFR AFR. AMER. 61(L) >90 ML/MIN/1.7 3 M2 08/05/2019 6:46 AM [facility] Comment: NOTE: eGFR is not calculated for patients <18 years of age. This is an estimated GFR (CKD EPI) and should not be used for calculating drug doses. 08/05/2019 6:19 AM CDT Ciarra Cancino ER NURSE LABORATORY Final Result [facility] [address] [place] [address], * (ABNORMAL) CBC W/DIFF AUTOMATED (08/05/2019 6:19 AM CDT) [facility] WBC 4.6 4.4 - 11.0 x10'3/uL 08/05/2019 6:38 AM CDT [facility] RBC 3.93(L) 4.50 - 5.10 x10'6/uL 08/05/2019 6:38 AM CDT [facility] HGB 11.5(L) 12.3 - 15.3 G/DL 08/05/2019 6:38 AM CDT [facility] HCT 34.5(L) 35.9 - 44.6 % 08/05/2019 6:38 AM CDT [facility] MCV 87.8 80.0 - 96.0 FL 08/05/2019 6:38 AM CDT [facility] MCH 29.3 25.3 - 30.9 PG 08/05/2019 6:38 AM CDT [facility] MCHC 33.3 31.0 - 34.1 G/DL 08/05/2019 6:38 AM CDT [facility] RDW 14.0 12.4 - 15.1 % 08/05/2019 6:38 AM CDT [facility] PLT 189 151 - 353 x10'3/uL 08/05/2019 6:38 AM CDT [facility] MPV 9.4(L) 9.6 - 12.0 FL 08/05/2019 6:38 AM CDT [facility] RBC MORPHOLOGY NORMAL 08/05/2019 6:38 AM CDT [facility] PLT MORPH. NORMAL 08/05/2019 6:38 AM CDT [facility] WBC MORPHOLOGY NORMAL 08/05/2019 6:38 AM CDT [facility] LYMPHOCYTES % 17.7 15.8 - 45.0 % 08/05/2019 6:38 AM CDT [facility] NEUTROPHILS % 71.0 42.1 - 71.9 % 08/05/2019 6:38 AM CDT [facility] MONOCYTES % 7.3 5.7 - 12.5 % 08/05/2019 6:38 AM CDT [facility] EOSINOPHILS 3.0 0.0 - 5.6 % 08/05/2019 6:38 AM CDT [facility] BASOPHILS 0.6 0.0 - 1.3 % 08/05/2019 6:38 AM CDT [facility] ABS. NEUTROPHILS TOTAL 3.29 1.40 - 6.00 x10'3/uL 08/05/2019 6:38 AM T [facility] IMMATURE GRANS % 0.4 0.0 - 0.5 % 08/05/2019 6:38 AM T [facility] ABS. LYMPHOCYTES 0.82 0.80 - 4.70 x10'3/uL 08/05/2019 6:38 AM T [facility] 08/05/2019 6:19 AM CDT Latrell Jethro Cancino ER NURSE LABORATORY Final Result [facility] [address] [place] [address], * (ABNORMAL) POCT glucose (08/04/2019 10:10 PM CDT) GLUCOSE POC 130(H) 70 - 110 mg/dL 08/04/2019 11:40 PM T [facility] ORDERS INTERFACE 08/04/2019 10:1 0 PM CDT Ciarra Cancino ER NURSE POCT ORDERABLES - DEVICE Final Result [facility] ORDERS INTERFACE US * (ABNORMAL) POCT glucose (08/04/2019 11:14 AM CDT) GLUCOSE POC 128(H) 70 - 110 mg/dL 08/04/2019 11:17 AM CDT [facility] ORDERS INTERFACE 08/04/2019 11:1 4 AM CDT Latrellsejal Morelos Shine ER NURSE POCT ORDERABLES - DEVICE Final Result Performing Organization Address [facility] de Phone Number [facility] ORDERS INTERFACE US * (ABNORMAL) BASIC METABOLIC PANEL (08/04/2019 9:48 AM CDT) GLUCOSE 137(H) 70 - 99 MG/DL 08/04/2019 10:29 AM CDT [facility] BUN 9 7 - 18 MG/DL 08/04/2019 10:29 AM CDT [facility] CREATININE S/P/B 1.01 0.55 - 1.02 MG/DL 08/04/2019 10:29 AM CDT [facility] SODIUM S/P/B 139 136 - 145 MMOL/L 08/04/2019 10:29 AM CDT [facility] POTASSIUM S/P/B 3.7 3.5 - 5.1 MMOL/L 08/04/2019 10:29 AM CDT [facility] CHLORIDE S/P/B 104 100 - 108 MMOL/L 08/04/2019 10:29 AM CDT [facility] CO2 26.5 21 - 32 MMOL/L 08/04/2019 10:29 AM CDT [facility] CALCIUM S/P/B 8.7 8.5 - 10.1 MG/DL 08/04/2019 10:29 AM CDT [facility] ANION GAP 8.5 5 - 15 MMOL/L 08/04/2019 10:29 AM CDT [facility] BUN CREATININE RATIO 8.9 6 - 26 08/04/2019 10:29 AM CDT [facility] EGFR NON-AFR. AMER. 51(L) >90 ML/MIN/1.7 3 M2 08/04/2019 10:29 AM CDT [facility] EGFR AFR. AMER. 59(L) >90 ML/MIN/1.7 3 M2 08/04/2019 10:29 AM CDT [facility] Comment: NOTE: eGFR is not calculated for patients <18 years of age. This is an estimated GFR (CKD EPI) and should not be used for calculating drug doses. 08/04/2019 9:48 AM CDT Ciarra Cancino ER NURSE LABORATORY Final Result [facility] [address] [place] [address], * (ABNORMAL) CBC W/DIFF AUTOMATED (08/04/2019 9:48 AM CDT) WBC 4.7 4.4 - 11.0 x10'3/uL 08/04/2019 10:03 AM CDT [facility] RBC 4.05(L) 4.50 - 5.10 x10'6/uL 08/04/2019 10:03 AM CDT [facility] HGB 11.6(L) 12.3 - 15.3 G/DL 08/04/2019 10:03 AM T [facility] HCT 36.0 35.9 - 44.6 % 08/04/2019 10:03 AM CDT [facility] MCV 88.9 80.0 - 96.0 FL 08/04/2019 10:03 AM T [facility] MCH 28.6 25.3 - 30.9 PG 08/04/2019 10:03 AM [facility] MCHC 32.2 31.0 - 34.1 G/DL 08/04/2019 10:03 AM [facility] RDW 14.0 12.4 - 15.1 % 08/04/2019 10:03 AM [facility] PLT 196 151 - 353 x10'3/uL 08/04/2019 10:03 AM [facility] MPV 9.6 9.6 - 12.0 FL 08/04/2019 10:03 AM [facility] RBC MORPHOLOGY NORMAL 08/04/2019 10:03 AM [facility] PLT MORPH. NORMAL 08/04/2019 10:03 AM [facility] WBC MORPHOLOGY NORMAL 08/04/2019 10:03 AM [facility] LYMPHOCYTES % 14.7(L) 15.8 - 45.0 % 08/04/2019 10:04 AM [facility] NEUTROPHILS % 75.8(H) 42.1 - 71.9 % 08/04/2019 10:04 AM [facility] MONOCYTES % 6.0 5.7 - 12.5 % 08/04/2019 10:04 AM [facility] EOSINOPHILS 2.3 0.0 - 5.6 % 08/04/2019 10:04 AM [facility] BASOPHILS 0.6 0.0 - 1.3 % 08/04/2019 10:04 AM [facility] ABS. NEUTROPHILS TOTAL 3.56 1.40 - 6.00 x10'3/uL 08/04/2019 10:04 AM CDT [facility] IMMATURE GRANS % 0.6(H) 0.0 - 0.5 % 08/04/2019 10:04 AM CDT [facility] ABS. LYMPHOCYTES 0.69(L) 0.80 - 4.70 x10'3/uL 08/04/2019 10:04 AM CDT [facility] 08/04/2019 9:48 AM CDT Ciarra Cancino ER NURSE LABORATORY Final Result [facility] [address] [place] [address], * POCT glucose (08/04/2019 6:09 AM CDT) GLUCOSE POC 93 70 - 110 mg/dL 08/04/2019 6:12 AM CDT [facility] ORDERS INTERFACE 08/04/2019 6:09 AM CDT Ciarra Cancino APRN POCT ORDERABLES - DEVICE Final Result Performing Organization Address [facility]/ZIP Co de Phone Number [facility] ORDERS INTERFACE US * (ABNORMAL) POCT glucose (08/03/2019 7:49 PM CDT) GLUCOSE POC 146(H) 70 - 110 mg/dL 08/03/2019 7:51 PM CDT [facility] ORDERS INTERFACE 08/03/2019 7:49 PM CDT us Emiliano Hubbard MD POCT ORDERABLES - DEVICE Final Result [facility] ORDERS INTERFACE US * POCT glucose (08/03/2019 5:09 PM CDT) GLUCOSE POC 81 70 - 110 mg/dL 08/03/2019 5:12 PM CDT [facility] ORDERS INTERFACE 08/03/2019 5:09 PM CDT Emiliano Hubbard MD POCT ORDERABLES - DEVICE Final Result Performing Organization Address [facility] Phone Number [facility] ORDERS INTERFACE US * (ABNORMAL) POCT glucose (08/03/2019 11:44 AM CDT) GLUCOSE POC 125(H) 70 - 110 mg/dL 08/03/2019 11:47 AM CDT [facility] ORDERS INTERFACE 08/03/2019 11:4 4 AM CDT Emiliano Hubbard MD POCT ORDERABLES - DEVICE Final Result Performing Organization Address [facility] Phone Number [facility] ORDERS INTERFACE US * (ABNORMAL) POCT glucose (08/02/2019 8:47 PM CDT) GLUCOSE POC 126(H) 70 - 110 mg/dL 08/02/2019 10:25 PM CDT [facility] ORDERS INTERFACE 08/02/2019 8:47 PM CDT Emiliano Hubbard MD POCT ORDERABLES - DEVICE Final Result Performing Organization Address [facility] Phone Number [facility] ORDERS INTERFACE US * POCT glucose (08/02/2019 4:17 PM CDT) GLUCOSE POC 107 70 - 110 mg/dL 08/02/2019 4:20 PM CDT [facility] ORDERS INTERFACE 08/02/2019 4:17 PM CDT Emiliano Hubbard MD POCT ORDERABLES - DEVICE Final Result Performing Organization Address [facility] Phone Number [facility] ORDERS INTERFACE US * (ABNORMAL) POCT glucose (08/02/2019 11:50 AM CDT) GLUCOSE POC 127(H) 70 - 110 mg/dL 08/02/2019 11:53 AM CDT [facility] LAB ORDERS INTERFACE 08/02/2019 11:5 0 AM CDT Emiliano Hubbard MD POCT ORDERABLES - DEVICE Final Result Performing Organization Address [facility] de Phone Number [facility] ORDERS INTERFACE US * POCT glucose (08/02/2019 5:55 AM CDT) GLUCOSE POC 81 70 - 110 mg/dL 08/02/2019 6:14 AM CDT [facility] ORDERS INTERFACE 08/02/2019 5:55 AM CDT Emiliano Hubbard MD POCT ORDERABLES - DEVICE Final Result Performing Organization Address [facility] Co de Phone Number [facility] ORDERS INTERFACE US * POCT glucose (08/01/2019 9:00 PM CDT) GLUCOSE POC 87 70 - 110 mg/dL 08/01/2019 10:06 PM CDT [facility] ORDERS INTERFACE 08/01/2019 9:00 PM CDT Emiliano Hubbard MD POCT ORDERABLES - DEVICE Final Result Performing Organization Address [facility] Co de Phone Number [facility] ORDERS INTERFACE US documented in this encounter Visit Diagnoses Diagnosis Physical deconditioning- Primary Debility, unspecified documented in this encounter Administered Medications Inactive Administered Medications - up to 3 most recent administrations Medication Order MAR Action Action Date Dose Rate Site acetaminophen (TYLENOL) tablet 650 mg 650 mg, Oral, Every 4 hours PRN, Mild pain (Scale 1 - 3), Starting on Wed08/01/19 at 1731, Until Wed08/16/19 at 1531, Maximum dose of acetaminophen is 4000 mg from all sources in 24 hours. Given 08/02/2019 3:55 AM CDT 650 mg amLODIPine (NORVASC) tablet 5 mg 5 mg, Oral, Daily, First dose (after last reorder) on Wed08/02/19 at 1300, Until Discontinued Given 08/02/2019 2:01 PM CDT 5 mg amLODIPine (NORVASC) tablet 5 mg 5 mg, Oral, Daily, First dose on Wed08/02/19 at 1900, Until Discontinued Given 08/13/2019 8:22 AM CDT 5 mg Given 08/12/2019 8:26 AM CDT 5 mg Given 08/11/2019 9:14 AM CDT 5 mg aspirin EC (ECOTRIN) tablet 81 mg 81 mg, Oral, Daily, First dose (after last reorder) on Wed08/02/19 at 1300, Until Discontinued, Do not break, chew, or crush. Given 08/02/2019 2:03 PM CDT 81 mg aspirin EC (ECOTRIN) tablet 81 mg 81 mg, Oral, Daily, First dose on Wed08/02/19 at 1900, Until Discontinued, Do not break, chew, or crush. Given 08/16/2019 9:51 AM CDT 81 mg Given 08/15/2019 9:17 AM CDT 81 mg Given 08/14/2019 9:22 AM CDT 81 mg bacitracin ointment Topical, 3 times daily, First dose on Wed08/04/19 at 0300, Until Discontinued, Apply topically to affected area(s) three times daily Given 08/06/2019 8:40 PM CDT Given 08/06/2019 8:41 AM CDT Given 08/05/2019 8:10 PM CDT cefTRIAXone (ROCEPHIN) 1 g in sterile water 10 mL IV 1 g, Intravenous, at 120 mL/hr, Every 24 hours, First dose on Wed08/14/19 at 0645, Until Discontinued Given 08/14/2019 6:44 AM CDT 1 g 120 mL /hr cefTRIAXone (ROCEPHIN) 2 g in sterile water 20 mL IV 2 g, Intravenous, at 240 mL/hr, Every 24 hours, First dose (after last modification) on Wed08/14/19 at 1800, Until Discontinued Given 08/15/2019 7:00 PM CDT 2 g 240 mL/hr Given 08/14/2019 5:34 PM CDT 2 g 240 mL/hr cephALEXin (KEFLEX) capsule 500 mg 500 mg, Oral, Every 12 hours scheduled (2 times per day), 10 doses, First dose on Wed08/10/19 at 2100, Last dose on Wed08/15/19 at 0900 Given 08/13/2019 8:34 PM CDT 500 mg Given 08/13/2019 8:21 AM CDT 500 mg Given 08/12/2019 8:38 PM CDT 500 mg docusate sodium (COLACE) capsule 100 mg 100 mg, Oral, 2 times daily, First dose on Wed08/01/19 at 2100, Until Discontinued Given 08/01/2019 9:20 PM CDT 100 mg docusate sodium (COLACE) capsule 100 mg 100 mg, Oral, 2 times daily, First dose (after last reorder) on Wed08/02/19 at 2100, Until Discontinued Given 08/16/2019 9:51 AM CDT 100 mg Given 08/15/2019 8:33 PM CDT 100 mg Given 08/15/2019 9:17 AM CDT 100 mg donepezil (ARICEPT) tablet 10 mg 10 mg, Oral, Every morning, First dose on Wed08/03/19 at 0700, Until Discontinued Given 08/16/2019 6:06 AM CDT 10 mg Given 08/15/2019 6:14 AM CDT 10 mg Given 08/14/2019 6:04 AM CDT 10 mg famotidine (PEPCID) injection 20 mg 20 mg, Intravenous, Every 24 hours scheduled (Daily), First dose (after last modification) on Wed08/06/19 at 0900, Until Discontinued, Give if unable to take PO., Renally adjusted for CrCl less than 50 ml/min. IV Push over 2 minutes famotidine (PEPCID) tablet 20 mg 20 mg, Oral, Every 12 hours scheduled (2 times per day), First dose on Wed08/01/19 at 2100, Until Discontinued Given 08/05/2019 8:32 AM CDT 20 mg Given 08/04/2019 10:16 PM CDT 20 mg Given 08/04/2019 8:08 AM CDT 20 mg famotidine (PEPCID) tablet 20 mg 20 mg, Oral, Every 24 hours scheduled (Daily), First dose (after last modification) on Wed08/06/19 at 0900, Until Discontinued, Renally adjusted for CrCl less than 50 ml/min. Given 08/16/2019 9:51 AM CDT 20 mg Given 08/15/2019 9:17 AM CDT 20 mg Given 08/14/2019 9:22 AM CDT 20 mg furosemide (LASIX) tablet 20 mg 20 mg, Oral, Daily, First dose (after last reorder) on Wed08/02/19 at 1300, Until Discontinued Given 08/02/2019 2:01 PM CDT 20 mg furosemide (LASIX) tablet 20 mg 20 mg, Oral, Daily, First dose on Wed08/02/19 at 1900, Until Discontinued Given 08/16/2019 9:50 AM CDT 20 mg Given 08/15/2019 9:17 AM CDT 20 mg Given 08/14/2019 9:22 AM CDT 20 mg heparin (porcine) injection 5,000 Units 5,000 Units, Subcutaneous, Every 12 hours scheduled (2 times per day), First dose on Wed08/01/19 at 2100, Until Discontinued Given 08/02/2019 9:26 AM CDT 5,000 Units Right Lower Abdomen Given 08/01/2019 9:20 PM CDT 5,000 Units R ight Lower Abdomen heparin (porcine) injection 5,000 Units 5,000 Units, Subcutaneous, 2 times daily, First dose (after last reorder) on Wed08/02/19 at 2100, Until Discontinued Given 08/16/2019 9:50 AM CDT 5,000 Units Left Lower Abdomen Given 08/15/2019 8:33 PM CDT 5,000 Units L eft Lower Abdomen Given 08/15/2019 9:17 AM CDT 5,000 Units L eft Lower Abdomen insulin lispro (HUMALOG) injection 0-14 Units 0-14 Units, Subcutaneous, 3 times daily before meals, First dose (after last reorder) on Wed08/02/19 at 1600, Until Discontinued, Blood Glucose (SENSITIVE Dosing): [Less than 70:? Initiate Hypoglycemia Standing Orders] [71-140: 0 units] [141-180: 2 units] [181-220: 4 units] [221-260: 6 units] [261-300: 8 units] [301-350: 10 units] [351-400: 12 units] [Greater than 400: 14 units and Call Physician] Given 08/09/2019 12:33 PM CDT 4 Units Right Arm Given 08/08/2019 11:51 AM CDT 2 Units R ight Arm Given 08/06/2019 12:33 PM CDT 2 Units L eft Arm insulin lispro (HUMALOG) injection 0-14 Units 0-14 Units, Subcutaneous, 2 times daily before meals, First dose (after last modification) on 08/12/19 at 1600, Until Discontinued, Blood Glucose (SENSITIVE Dosing): [Less than 70:? Initiate Hypoglycemia Standing Orders] [71-140: 0 units] [141-180: 2 units] [181-220: 4 units] [221-260: 6 units] [261-300: 8 units] [301-350: 10 units] [351-400: 12 units] [Greater than 400: 14 units and Call Physician] ipratropium (ATROVENT) 0.03 % nasal spray 2 spray 2 spray, Each Nostril, 3 times daily PRN, Other, Runny nose, Starting on Wed08/13/19 at 1425, Until Wed08/16/19 at 1531 levothyroxine (SYNTHROID) tablet 50 mcg 50 mcg, Oral, User specified (Once per day on Wed), First dose on Wed08/05/19 at 0600, Until Discontinued, Take 1 tablet (50mcg total) by mouth in the morning on Wednesday and Wednesday. Avoid iron, calcium, and antacids within 4 hours of administration. Given 08/13/2019 5:46 AM CDT 50 mcg Given 08/12/2019 6:02 AM CDT 50 mcg Given 08/06/2019 6:45 AM CDT 50 mcg lisinopril (PRINIVIL) tablet 5 mg 5 mg, Oral, Daily, First dose (after last reorder) on Wed08/02/19 at 1300, Until Discontinued Given 08/02/2019 2:02 PM CDT 5 mg lisinopril (PRINIVIL) tablet 5 mg 5 mg, Oral, Daily, First dose on Wed08/02/19 at 1900, Until Discontinued Given 08/16/2019 9:51 AM CDT 5 mg Given 08/15/2019 9:17 AM CDT 5 mg Given 08/14/2019 9:21 AM CDT 5 mg magnesium hydroxide (MILK OF MAGNESIA) 400 MG/5ML suspension 30 mL 30 mL, Oral, Nightly PRN, Constipation, Starting on Wed08/01/19 at 1731, Until Wed08/16/19 at 1531, Shake Well Given 08/15/2019 10:39 AM CDT 30 mLs nystatin (MYCOSTATIN) cream Topical, 2 times daily, First dose on Wed08/16/19 at 1130, Until Discontinued Given 08/16/2019 12:22 PM CDT ondansetron (ZOFRAN-ODT) disintegrating tablet 4 mg 4 mg, Oral, Every 8 hours PRN, Nausea, Vomiting, Starting on Wed08/11/19 at 1132, Until Wed08/16/19 at 1531 Given 08/11/2019 11:42 AM CDT 4 mg polyethylene glycol (GLYCOLAX) packet 17 g 17 g, Oral, Daily as needed, Constipation, Starting on Wed08/02/19 at 1242, Until Wed08/16/19 at 1531, If both senna and polyethylene glycol are ordered, use 1st; if no response by next dosing interval, go to next option. Given 08/15/2019 9:17 AM CDT 17 g potassium chloride CR (KLOR-CON M) tablet 10 mEq 10 mEq, Oral, Daily, First dose (after last reorder) on Wed08/02/19 at 1300, Until Discontinued, Do not chew, crush, or suck on tablet. May break in half. May dissolve whole tablet in 120 mL of water and drink immediately. Given 08/02/2019 2:02 PM CDT 10 mEq potassium chloride CR (KLOR-CON M) tablet 10 mEq 10 mEq, Oral, Daily, First dose on Wed08/02/19 at 1900, Until Discontinued, Do not chew, crush, or suck on tablet. May break in half. May dissolve whole tablet in 120 mL of water and drink immediately. Given 08/16/2019 9:50 AM CDT 10 mEq Given 08/15/2019 9:17 AM CDT 10 mEq Given 08/14/2019 9:22 AM CDT 10 mEq pravastatin (PRAVACHOL) tablet 40 mg 40 mg, Oral, Nightly at bedtime, First dose on Wed08/02/19 at 2100, Until Discontinued Given 08/15/2019 8:33 PM CDT 40 m g Given 08/14/2019 8:32 PM CDT 40 mg Given 08/13/2019 8:34 PM CDT 40 mg prochlorperazine (COMPAZINE) injection 5 mg 5 mg, Intravenous, Every 6 hours PRN, Nausea, Vomiting, Starting on Wed08/11/19 at 2002, Until Wed08/16/19 at 1531, If giving IV, further dilute to a concentration of 1 mg/mL and give 1 mL/min. Monitor vitals every 10 minutes for 30 minutes post dose. sertraline (ZOLOFT) tablet 100 mg 100 mg, Oral, Every morning, First dose on Wed08/03/19 at 0700, Until Discontinued Given 08/16/2019 6:07 AM CDT 100 mg Given 08/15/2019 6:14 AM CDT 100 mg Given 08/14/2019 6:04 AM CDT 100 mg traZODone (DESYREL) tablet 50 mg 50 mg, Oral, Nightly PRN, Sleep, Starting on Wed08/02/19 at 1242, Until Wed08/16/19 at 1531 traZODone (DESYREL) tablet 50 mg 50 mg, Oral, Nightly at bedtime, First dose on Wed08/02/19 at 2100, Until Discontinued Given 08/15/2019 8:33 PM CDT 50 m g Given 08/14/2019 8:32 PM CDT 50 mg Given 08/13/2019 8:34 PM CDT 50 mg vitamin D3 (cholecalciferol) tablet 2,000 Units 2,000 Units, Oral, Daily, First dose (after last reorder) on Wed08/02/19 at 1300, Until Discontinued, 1000 units = 25 mcg Given 08/02/2019 2:02 PM CDT 2,000 Units vitamin D3 (cholecalciferol) tablet 2,000 Units 2,000 Units, Oral, Daily, First dose on Wed08/02/19 at 1900, Until Discontinued, 1000 units = 25 mcg Given 08/16/2019 9:50 AM CDT 2,000 Units Given 08/15/2019 9:17 AM CDT 2,000 Units Given 08/14/2019 9:23 AM CDT 2,000 Units documented in this encounter Active and Recently Administered Medications Times are shown in CDT. Scheduled Medication Order 08/14/2019 08/15/2019 08/16/2019 aspirin EC (ECOTRIN) tablet 81 mg 81 mg, Oral, Daily, First dose on Wed08/02/19 at 1900, Until Discontinued, Do not break, chew, or crush. 0922 (Given - Provider: Lauren Ortega RN) 0917 (Given - Provider: Aliya Baca RN) 0951 (Given - Provider: Laila Lujan, KAILEE) cefTRIAXone (ROCEPHIN) 1 g in sterile water 10 mL IV (CANCELED) 1 g, Intravenous, at 120 mL/hr, Every 24 hours, First dose on Wed08/14/19 at 0645, Until Discontinued 0644 (Given - Provider: Iemlda Henley RN) cefTRIAXone (ROCEPHIN) 2 g in sterile water 20 mL IV 2 g, Intravenous, at 240 mL/hr, Every 24 hours, First dose (after last modification) on Wed08/14/19 at 1800, Until Discontinued 1734 (Given - Provider: Nuzhat Russell RN) 1900 (Given - Provider: Denise Mcmahon RN) docusate sodium (COLACE) capsule 100 mg 100 mg, Oral, 2 times daily, First dose (after last reorder) on Wed08/02/19 at 2100, Until Discontinued 09 (Given - Provider: Lauren Ortega RN)2031 (Given - Provider: Imelda Murray RN) 916 (Given - Provider: Aliya Baca RN)2032 (Given - Provider: Sahara Leung LPN) 0951 (Given - Provider: Laila Lujan RN) donepezil (ARICEPT) tablet 10 mg 10 mg, Oral, Every morning, First dose on Wed08/03/19 at 0700, Until Discontinued 06 (Given - Provider: Imelda Henley RN) 0614 (Given - Provider: Imelda Murray RN) 0606 (Given - Provider: Sahara Leung LPN) famotidine (PEPCID) injection 20 mg(Linked Group 1) 20 mg, Intravenous, Every 24 hours scheduled (Daily), First dose (after last modification) on Wed08/06/19 at 0900, Until Discontinued, Give if unable to take PO., Renally adjusted for CrCl less than 50 ml/min. IV Push over 2 minutes 09 (See Alternative - Provider: Lauren Ortega RN) 09 (See Alternative - Provider: Aliya Baca RN) 0951 (See Alternative - Provider: Laila Lujan RN) famotidine (PEPCID) tablet 20 mg(Linked Group 1) 20 mg, Oral, Every 24 hours scheduled (Daily), First dose (after last modification) on Wed08/06/19 at 0900, Until Discontinued, Renally adjusted for CrCl less than 50 ml/min. 921 (Given - Provider: Lauren Ortega RN) 916 (Given - Provider: Aliya Baca, KAILEE) 0951 (Given - Provider: Laila Lujan RN) furosemide (LASIX) tablet 20 mg 20 mg, Oral, Daily, First dose on Wed08/02/19 at 1900, Until Discontinued 921 (Given - Provider: Lauren Ortega RN) 916 (Given - Provider: Aliya Baca RN) 0950 (Given - Provider: Laila Lujan RN) heparin (porcine) injection 5,000 Units 5,000 Units, Subcutaneous, 2 times daily, First dose (after last reorder) on Wed08/02/19 at 2100, Until Discontinued 921 (Given - Provider: Lauren Ortega RN)2031 (Given - Provider: Imelda Murray RN) 916 (Given - Provider: Aliya Baca RN)2032 (Given - Provider: Sahara Leung LPN) 0950 (Given - Provider: Laila Lujan RN) insulin lispro (HUMALOG) injection 0-14 Units 0-14 Units, Subcutaneous, 2 times daily before meals, First dose (after last modification) on Wed08/12/19 at 1600, Until Discontinued, Blood Glucose (SENSITIVE Dosing): [Less than 70:? Initiate Hypoglycemia Standing Orders] [71-140: 0 units] [141-180: 2 units] [181-220: 4 units] [221-260: 6 units] [261-300: 8 units] [301-350: 10 units] [351-400: 12 units] [Greater than 400: 14 units and Call Physician] 06 (Not Given - Provider: Imelda Henley RN - Reason: Order parameters not met)162 (Not Given - Provider: Nuzhat Russell RN - Reason: Order parameters not met) 621 (Not Given - Provider: Imelda Murray RN - Reason: Order parameters not met)1630 (Not Given - Provider: Aliya Baca RN - Reason: Order parameters not met) 0628 (Not Given - Provider: Sahara Leung LPN - Reason: Order parameters not met - Comment: blood sugar 99) levothyroxine (SYNTHROID) tablet 50 mcg 50 mcg, Oral, User specified (Once per day on Sun Sat), First dose on 08/05/19 at 0600, Until Discontinued, Take 1 tablet (50mcg total) by mouth in the morning on Wednesday and Wednesday. Avoid iron, calcium, and antacids within 4 hours of administration. lisinopril (PRINIVIL) tablet 5 mg 5 mg, Oral, Daily, First dose on Wed08/02/19 at 1900, Until Discontinued 09 (Given - Provider: Lauren Ortega RN) 09 (Given - Provider: Aliya Baca RN) 0951 (Given - Provider: Laila Lujan RN) nystatin (MYCOSTATIN) cream Topical, 2 times daily, First dose on Wed08/16/19 at 1130, Until Discontinued 1222 (Given - Provider: Laila Lujan RN) potassium chloride CR (KLOR-CON M) tablet 10 mEq 10 mEq, Oral, Daily, First dose on Wed08/02/19 at 1900, Until Discontinued, Do not chew, crush, or suck on tablet. May break in half. May dissolve whole tablet in 120 mL of water and drink immediately. 09 (Given - Provider: Lauren Ortega RN) 0917 (Given - Provider: Aliya Baca RN) 0950 (Given - Provider: Laila Lujan RN) pravastatin (PRAVACHOL) tablet 40 mg 40 mg, Oral, Nightly at bedtime, First dose on Wed08/02/19 at 2100, Until Discontinued 2031 (Given - Provider: Imelda Murray RN) 2032 (Given - Provider: Sahara Leung LPN) sertraline (ZOLOFT) tablet 100 mg 100 mg, Oral, Every morning, First dose on Wed08/03/19 at 0700, Until Discontinued 06 (Given - Provider: Imelda Henley RN) 0614 (Given - Provider: Imelda Murray RN) 0607 (Given - Provider: Sahara Leung LPN) traZODone (DESYREL) tablet 50 mg 50 mg, Oral, Nightly at bedtime, First dose on Wed08/02/19 at 2100, Until Discontinued 2031 (Given - Provider: Imelda Murray RN) 2032 (Given - Provider: Sahara Leung LPN) vitamin D3 (cholecalciferol) tablet 2,000 Units 2,000 Units, Oral, Daily, First dose on Wed08/02/19 at 1900, Until Discontinued, 1000 units = 25 mcg 0923 (Given - Provider: Lauren Ortega RN) 0917 (Given - Provider: Aliya Baca RN) 0950 (Given - Provider: Laila Lujan RN) PRN Medication Order 08/14/2019 08/15/2019 08/16/2019 acetaminophen (TYLENOL) tablet 650 mg 650 mg, Oral, Every 4 hours PRN, Mild pain (Scale 1 - 3), Starting on Wed08/01/19 at 1731, Until Wed08/16/19 at 1531, Maximum dose of acetaminophen is 4000 mg from all sources in 24 hours. ipratropium (ATROVENT) 0.03 % nasal spray 2 spray 2 spray, Each Nostril, 3 times daily PRN, Other, Runny nose, Starting on Wed08/13/19 at 1425, Until Wed08/16/19 at 1531 magnesium hydroxide (MILK OF MAGNESIA) 400 MG/5ML suspension 30 mL 30 mL, Oral, Nightly PRN, Constipation, Starting on Wed08/01/19 at 1731, Until Wed08/16/19 at 1531, Shake Well 1039 (Given - Provider: Irina Baca RN) ondansetron (ZOFRAN-ODT) disintegrating tablet 4 mg 4 mg, Oral, Every 8 hours PRN, Nausea, Vomiting, Starting on Wed08/11/19 at 1132, Until Wed08/16/19 at 1531 polyethylene glycol (GLYCOLAX) packet 17 g 17 g, Oral, Daily as needed, Constipation, Starting on Wed08/02/19 at 1242, Until Wed08/16/19 at 1531, If both senna and polyethylene glycol are ordered, use 1st; if no response by next dosing interval, go to next option. 0917 (Given - Provider: Irina Baca RN) prochlorperazine (COMPAZINE) injection 5 mg 5 mg, Intravenous, Every 6 hours PRN, Nausea, Vomiting, Starting on Wed08/11/19 at 2002, Until Wed08/16/19 at 1531, If giving IV, further dilute to a concentration of 1 mg/mL and give 1 mL/min. Monitor vitals every 10 minutes for 30 minutes post dose. traZODone (DESYREL) tablet 50 mg 50 mg, Oral, Nightly PRN, Sleep, Starting on Wed08/02/19 at 1242, Until Wed08/16/19 at 1531 Linked Groups Order Group 1: famotidine (PEPCID) injection 20 mgJump to med 20 mg, Intravenous, Every 24 hours scheduled (Daily), First dose (after last modification) on Wed08/06/19 at 0900, Until Discontinued, Give if unable to take PO., Renally adjusted for CrCl less than 50 ml/min. IV Push over 2 minutes Or famotidine (PEPCID) tablet 20 mgJump to med 20 mg, Oral, Every 24 hours scheduled (Daily), First dose (after last modification) on Wed08/06/19 at 0900, Until Discontinued, Renally adjusted for CrCl less than 50 ml/min. documented in this encounter Care Teams Roll Tension Tester Relationship Specialty Start Date End Date Noemi Jade MD [facility]. [address] [address] PCP - General INTERNAL MEDICINE 08/23/18 03/03/23 Joni Mckeon MD [facility]. [address] [address] [place] Book Agent CARDIOVASCULAR DISEASE 07/04/18 documented as of this encounter
--- OUTSIDE RECORDS SUMMARY | 2024-04-05 00:20 | XMS_ITS | Encounter Summary ---
Author Organization [facility] Address [address] [place] [address]. [place], [place] [address] [place] [id number] Care Team Providers Care Pre Press Manager Name Role Phone Joni Mckeon MD Unavailable [phone] Noemi Barnard MD Primary Care Provider [phone] Encounter Details Date Type Department Care Team (Late st Contact Info) Description 2019 Home Care Visit [facility] Home Care [address] [place] [address] Sirisha Alves RN SN OASIS TRANSFER W/OUT DC Social History Tobacco Use Types Packs/Day Years [...] No Laura Cheatham RN Return home with [facility] home health General No Malgorzata Brown, LENS INSERTER documented as of this encounter Visit Diagnoses Not on filedocumented in this encounter Home Health Visit - Care Plan Visit Details Visit Type -SN - OASIS Trans renetta w/o DC Discipline -Senior Living Problems Problem Description Start Date Status Goals Interve ntions Discharge Planning Disciplines: Senior Living Discharge Planning 07/19/2019 Active 1 goal linked to scheduled/docume nted intervention 1 goal intervention scheduled/documen ke in this visit Care Coordination Disciplines: Senior Living Management and coordination of patient care 07/19/2019 Active 1 goal linked to scheduled/docume nted intervention 2 goal interventions scheduled/documen ke in this visit A Plan for Next Visit Disciplines: Senior Living Plan for next visit 07/19/2019 Active 1 goal linked to scheduled/docume nted intervention 1 goal intervention scheduled/documen ke in this visit Home Safety Disciplines: Senior Living Management and evaluation of patient's home environment 07/19/2019 Active 1 goal linked to scheduled/docume nted intervention 4 goal interventions scheduled/documen ke in this visit Medications Disciplines: Senior Living Management of home medications 07/19/2019 Active 1 goal linked to scheduled/docume nted intervention 3 goal interventions scheduled/documen ke in this visit Management and Evaluation of the Care Plan Disciplines: Senior Living SN for management and evaluation of skilled services 07/19/2019 Active 1 goal linked to scheduled/docume nted intervention 1 goal intervention scheduled/documen ke in this visit Skilled Observation and Assessment Disciplines: Senior Living Skilled O & A as specified by [...] Instruct patient on strategies/modifications to home environment. Problem:Home Safety Goal:Remain Safe in Home Scheduled [...] Scheduled documented in this encounter Care Teams Pre Press Manager Relationship Specialty Start Date End Date Noemi Barnard MD [facility]. [address] [address] PCP - General INTERNAL MEDICINE 08/23/18 03/03/23 Joni Mckeon MD [facility]. [address] [address] [place] Circus Artist CARDIOVASCULAR DISEASE 07/04/18 documented as of this encounter
--- OUTSIDE RECORDS SUMMARY | 2024-04-05 00:20 | XMS_ITS | Encounter Summary ---
Author Organization [facility] Address [address] [place] [address]. [place] [address] [place] [address] Care Team Providers Care Sap Portal Developer Name Role Phone Joni Mckeon MD Unavailable [phone] Noemi Barnard MD Primary Care Provider [phone] Reason for Visit * Reason Onset Date Comments TCM 07/18/2019 Encounter Details Date Type Department Care Team (Late st Contact Info) Description 07/18/2019 Telephone [facility] Family & Internal Medicine [facility] [address] [place] [address] [place] Barnard [place] [id number] [place] [address] TCM Social History Tobacco Use Types Packs/Day Years [...] serious difficulty walking or climbing stairs? Yes 07/18/2019 11:38 AM CDT Leticia Grove RN Acti ve Do you have difficulty dressing or bathing? Yes 07/18/2019 11:38 AM CDT Leticia Grove RN Active Because of a physical, mental, or emotional condition, do you have difficulty doing errands alone such as visiting a doctor's office or shopping? Yes 07/18/2019 11:38 AM CDT Gaston Grove RN Active * RETIRED Are you deaf [...] difficulty concentrating, remembering, or making decisions? Yes 07/18/2019 11:38 AM CDT Leticia Grove RN Active * Because of a physical, mental, or emotional condition, do you have serious difficulty concentrating, remembering, or making decisions? Answer Entry Date Author Status Yes 07/18/2019 11:38 AM CDT Leticia Grove R N Active documented in this encounter Progress Notes * Nuha Ruiz RN - 07/19/2019 10:28 AM CDT Follow up call to pt post hospitalization. Pt discharged from [facility] 07/18/2019. 1. Discharge diagnosis- deconditioning. 2. Procedures performed while inpatient. 3. Medication reconciliation complete- start Furosemide Daily, potassium 10meq; stop Ranitidine andchange Benazepril 20mg daily, pravastatin 40mg @HS; cont all other medications. 4. Follow up services needed- yes, and has a cardio appt in September. 5. Education self management- yes, lives in an apartment by herself. 6. Support and adherence with treatment regime- yes. 7. Does pt have access to care and services- yes, HH is starting on 07/20/2019. 8. Appointment for follow-up in the office. 7 days if high complexity or within 14 days for medium complexity. Pt has appt scheduled for 07/24/2019 with . TCM call back completed 07/19/2019. * Melanie Chavez RN - 07/18/2019 11:56 AM CDT Will need to call pt tomorrow * Ana Laura Rueda - 07/18/2019 11:50 AM CDT Pt CB# [phone] [facility] ADmitt 07/03/19 D/c 07/18/19 Appt 07/24/19@0920 DX Urosepsis documented in this encounter Plan of Treatment Not on file documented as of this encounter Goals Goal Patient Goal Type Associated Problems Recent Progress Patient-Stated? Author Improve Home Support System General No Laura Cheatham RN documented as of this encounter Visit Diagnoses Not on filedocumented in this encounter Care Teams Sap Portal Developer Relationship Specialty Start Date End Date Noemi Barnard MD [facility]. [address] [address] PCP - General INTERNAL MEDICINE 08/23/18 03/03/23 Join Mckeon MD [facility]. [address] [address] [place] Director Of Extension Work CARDIOVASCULAR DISEASE 07/04/18 documented as of this encounter
--- OUTSIDE RECORDS SUMMARY | 2024-04-05 00:20 | XMS_ITS | Encounter Summary ---
Author Organization [facility] Address [address] [place] [address]. [place], [place] [address] [place] [address] Care Team Providers Care Social Media Designer Name Role Phone Joni Mckeon MD Unavailable [phone] Noemi Barnard MD Primary Care Provider [phone] Encounter Details Date Type Department Care Team (Late st Contact Info) Description 07/20/2019 10:15 AM CDT Home Care Visit [address] [place] [address] Anita Swenson, RN [phone] (Work) SN TELEPHONE CALL Social History [...] Type -SN - Telephone C all Discipline -Correction Problems Problem Description Start Date Status Goals Interve ntions Discharge Planning Disciplines: Correction Discharge Planning 07/19/2019 Active 1 goal linked to scheduled/docume nted intervention 1 goal intervention scheduled/documen ke in this visit Care Coordination Disciplines: Correction Management and coordination of patient care 07/19/2019 Active 1 goal linked to scheduled/docume nted intervention 2 goal interventions scheduled/documen ke in this visit A Plan for Next Visit Disciplines: Correction Plan for next visit 07/19/2019 Active 1 goal linked to scheduled/docume nted intervention 1 goal intervention scheduled/documen ke in this visit Home Safety Disciplines: Correction Management and evaluation of patient's home environment 07/19/2019 Active 1 goal linked to scheduled/docume nted intervention 4 goal interventions scheduled/documen ke in this visit Medications Disciplines: Correction Management of home medications 07/19/2019 Active 1 goal linked to scheduled/docume nted intervention 3 goal interventions scheduled/documen ke in this visit Management and Evaluation of the Care Plan Disciplines: Correction SN for management and evaluation of skilled services 07/19/2019 Active 1 goal linked to scheduled/docume nted intervention 1 goal intervention scheduled/documen ke in this visit Skilled Observation and Assessment Disciplines: Correction Skilled O & A as specified by [...] Scheduled documented in this encounter Care Teams Social Media Designer Relationship Specialty Start Date End Date Noemi Barnard MD [facility]. [address] [address] PCP - General INTERNAL MEDICINE 08/23/18 03/03/23 Joni Mckeon MD [facility]. [address] [address] [place] Swamper CARDIOVASCULAR DISEASE 07/04/18 documented as of this encounter
--- OUTSIDE RECORDS SUMMARY | 2024-04-05 00:20 | XMS_ITS | Encounter Summary ---
Author Organization [facility] Address [address] [place] [address]. [place], [place] [id number] [place] [address] Care Team Providers Care Slip Cover Operator Name Role Phone Joni Mckeon MD Unavailable [phone] Noemi Barnard MD Primary Care Provider [phone] Reason for Visit * Reason Comments Weakness Encounter Details Date Type Department Care Team (Late st Contact Info) Description 07/21/2019 12:30 PM CDT Home Care Visit [address] [place] [address] Nivia Rodriguez, RN [phone] (Work) SN HOME VISIT Social History [...] Sign Reading Time Taken Comments Blood Pressure 106/56 07/21/2019 2:37 PM CDT Pulse 86 07/21/2019 2:37 PM CDT Temperature 36.3 ??C (97.4 ??F) 07/21/2019 2:37 PM CD T Respiratory Rate 20 07/21/2019 2:37 PM CDT Oxygen Saturation 98% 07/21/2019 2:37 PM CDT Inhaled Oxygen Concentration - - [...] Visit Type -SN - Home Visit Discipline -Nursing Home Problems Problem Description Start Date Status Goals Interve ntions Discharge Planning Disciplines: Nursing Home Discharge Planning 07/19/2019 Active 1 goal linked to scheduled/docume nted intervention 1 goal intervention scheduled/documen ke in this visit Care Coordination Disciplines: Nursing Home Management and coordination of patient care 07/19/2019 Active 1 goal linked to scheduled/docume nted intervention 2 goal interventions scheduled/documen ke in this visit Homebound Status Disciplines: Nursing Home Patient meets requirements of homebound status as evidenced by . 07/19/2019 Active 1 goal linked to scheduled/docume nted intervention A Plan for Next Visit Disciplines: Nursing Home Plan for next visit 07/19/2019 Active 1 goal linked to scheduled/docume nted intervention 1 goal intervention scheduled/documen ke in this visit Home Safety Disciplines: Nursing Home Management and evaluation of patient's home environment 07/19/2019 Active 1 goal linked to scheduled/docume nted intervention 4 goal interventions scheduled/documen ke in this visit Medications Disciplines: Nursing Home Management of home medications 07/19/2019 Active 1 goal linked to scheduled/docume nted intervention 3 goal interventions scheduled/documen ke in this visit Management and Evaluation of the Care Plan Disciplines: Nursing Home SN for management and evaluation of skilled services 07/19/2019 Active 1 goal linked to scheduled/docume nted intervention 1 goal intervention scheduled/documen ke in this visit Skilled Observation and Assessment Disciplines: Nursing Home Skilled O & A as specified by the physician 07/19/2019 Active 1 goal linked to scheduled/docume nted intervention 2 problem interventions scheduled/documen ke in this visit Goals Goal Associated Problem Outcome Goal Met? Visit Notes Progress towards discharge Description: Documentation of ongoing progress towards goals through . Discharge Planning No Coordination of Care Achieved [...] falls or injuries, through . Home Safety Met This Shift No Understanding of Medication Regimen Description: { PATIENT CAREGIVER:[id number]} will verbalize understanding of medications and proper administration of medication regimen by . Medications Progressing No SN Management and Evaluation of the Care Plan Description: Management and Evaluation of the Care Plan Progressing No Skilled Observation and Assessment Description: Skilled Observation and Assessment Progressing No Interventions Intervention Associated Problem/Goal Status Variance Visit Notes Plan Towards Discharge Description: Document {GEOVANNI PATIENT CAREGIVER:559305} progress towards discharge. Problem:Discharge Planning Goal:Progress towards discharge Completed Care Plan Collaboration Description: Care Plan Collaboration Problem:Care Coordination Goal:Coordination of Care Achieved Completed Care plan updates: None at this visit Care Coordination Description: Coordinate care with regarding . Problem:Care Coordination Goal:Coordination of Care Achieved Completed Plan for Next Visit Description: Next visit plan summation Problem:A Plan for Next Visit Goal:Provide Continuity of Care Completed Skilled nurse to continue assessing all body systems, fall precautions, infection prevention, gait instability, medication management and education Instruct Home Safety Description: Instruct {GEOVANNI PATIENT CAREGIVER:[id number]} on strategies/modificatio ns to home environment. Problem:Home Safety Goal:Remain Safe in Home Completed Skilled nurse entered clean residence with pathways open. Instruct Disaster/Evacuation Plan Description: Instruct in planning and execution of disaster/evacuation plan. Assist {GEOVANNI PATIENT CAREGIVER:[id number]} in development or revision of plan as indicated. Problem:Home Safety Goal:Remain Safe in Home Completed Skilled Assessment Risk for Injury Description: Evaluate patient's home environment for potential safety risks, and educate {GEOVANNI PATIENT CAREGIVER:185316} on identified safety risks. Problem:Home Safety Goal:Remain Safe in Home Completed Skilled nurse educated patient to report falls. Skilled nurse also educated patient on fall prevention. Patient verbalized understanding. Instruct injury prevention Description: Instruct { PATIENT CAREGIVER:[id number]} in strategies to prevent injury - modifications [...] bottle check. Skilled assessment medications Description: Assess {GEOVANNI PATIENT CAREGIVER:545299} ability to manage medications. Provide detailed instruction [...] Patient to take medications { MEDICATION ADMINISTRATION SOURCE:993413} set up by { MEDICATION SET UP:687943}. Problem:Medications Goal:Understanding of Medication Regimen Completed Skilled nurse educated patient on Levothyroxine side effects, intended effects and schedule of administration. Patient verbalized understanding. [...] Scheduled documented in this encounter Care Teams Slip Cover Operator Relationship Specialty Start Date End Date Noemi Barnard MD [facility]. [address] [address] PCP - General INTERNAL MEDICINE 08/23/18 03/03/23 Joni Mckeon MD [facility]. [address] [address] Christopher Shotgun Shell Assembly Machine Operator CARDIOVASCULAR DISEASE 07/04/18 documented as of this encounter
--- OUTSIDE RECORDS SUMMARY | 2024-04-05 00:20 | XMS_ITS | Encounter Summary ---
Author Organization [facility] Address [address] [place] [address]. [place], [place] [address] [place] [address] Care Team Providers Care Pesticide Control Inspector Name Role Phone Joni Mckeon MD Unavailable [phone] Noemi Barnard MD Primary Care Provider [phone] Reason for Visit * Home Health Care (Routine) - New Request Specialty Diagnoses / Procedures Referred By Eugenie t Referred To Contact Home Health Services / [facility] Diagnoses Otitis Physical deconditioning Heraclio Cosme MD [address] [facility] [address] [address] Phone: tel: fax: [facility] Home Care [address] [place] [address] [place] [address] Phone: tel: fax: Referral ID Status Reason Start Date Expiration Date V isits Requested Visits Authorized [id number] New Request 1 1 Encounter Details Date Type Department Care Team (Latest Contact Info) Description 07/19/2019 12:30 PM CDT Home Care Visit [facility] Home Care [address] [place] [address] [place] [address] Anita Swenson, RN [phone] (Work) SN OASIS START OF CARE Social History Tobacco Use Types [...] Reading Time Taken Comments Blood Pressure 100/50 07/19/2019 2:47 PM CDT Pulse 91 07/19/2019 2:10 PM CDT Temperature 35.9 ??C (96.7 ??F) 07/19/2019 2:10 PM CD T Respiratory Rate 18 07/19/2019 2:10 PM CDT Oxygen Saturation - - Inhaled Oxygen Concentration - - Weight 60.8 kg (134 lb) 07/19/2019 2:10 PM CDT Height 161.3 cm (5' 3.5 ) 07/19/2019 2:10 PM CDT Body Mass Index 23.36 07/19/2019 2:10 PM CDT documented in this encounter Functional [...] No Laura Cheatham, RN Return home with [facility] home health General No Malgorzata Brown MSW HOME WITH [facility] General No Laura Cheatham RN documented as of this encounter Visit Diagnoses Not on filedocumented in this encounter Home Health Visit - Care Plan Visit Details Visit Type -SN - OASIS Start of Care Discipline -Mcfp Problems Problem Description Start Date Status Goals Interve ntions Discharge Planning Disciplines: Mcfp Discharge Planning 07/19/2019 Active 1 goal linked to scheduled/docume nted intervention 1 goal intervention scheduled/documen ke in this visit Care Coordination Disciplines: Mcfp Management and coordination of patient care 07/19/2019 Active 1 goal linked to scheduled/docume nted intervention 2 goal interventions scheduled/documen ke in this visit A Plan for Next Visit Disciplines: Mcfp Plan for next visit 07/19/2019 Active 1 goal linked to scheduled/docume nted intervention 1 goal intervention scheduled/documen ke in this visit Home Safety Disciplines: Mcfp Management and evaluation of patient's home environment 07/19/2019 Active 1 goal linked to scheduled/docume nted intervention 4 goal interventions scheduled/documen ke in this visit Medications Disciplines: Mcfp Management of home medications 07/19/2019 Active 1 goal linked to scheduled/docume nted intervention 3 goal interventions scheduled/documen ke in this visit Management and Evaluation of the Care Plan Disciplines: Mcfp SN for management and evaluation of skilled services 07/19/2019 Active 1 goal linked to scheduled/docume nted intervention 1 goal intervention scheduled/documen ke in this visit Skilled Observation and Assessment Disciplines: Mcfp Skilled O & A as specified by [...] Completed documented in this encounter Care Teams Pesticide Control Inspector Relationship Specialty Start Date End Date Noemi Barnard MD [address] [address] PCP - General INTERNAL MEDICINE 08/23/18 03/03/23 Joni Mckeon MD [address] [address] Christopher Stope Miner CARDIOVASCULAR DISEASE 07/04/18 documented as of this encounter
--- OUTSIDE RECORDS SUMMARY | 2024-04-05 00:20 | XMS_ITS | Encounter Summary ---
Author Organization [facility] Address [address] [place] [address]. [place], [place] [address] [place] [address] Care Team Providers Care Electrical Instrumentation Technician Name Role Phone Joni Mckeon MD Unavailable [phone] Noemi Barnard MD Primary Care Provider [phone] Encounter Details Date Type Department Care Team (Late st Contact Info) Description 07/24/2019 8:00 AM CDT Home Care Visit [address] [place] [address] Treasure Nicole, COAT FELLER AIDE HOME VISIT Social History Tobacco Use [...] Sign Reading Time Taken Comments Blood Pressure 106/66 07/24/2019 10:16 AM CDT Pulse 72 07/24/2019 10:16 AM CDT Temperature 35.2 ??C (95.3 ??F) 07/24/2019 10:16 AM C DT Respiratory Rate 20 07/24/2019 10:16 AM CDT Oxygen Saturation - - Inhaled [...] Notes Hygiene Needs Met with Assist of OFFSET PRESSMAN Description: Hygiene and safety needs will be met with assist of OFFSET PRESSMAN by 09/16/19. Client will progress towards increased independence in performance of self cares. Aide for personal cares/mobility/ADL's Met This Shift No Interventions Intervention Associated Problem/Goal Status Variance Visit Notes Aide Communication tool Description: Complete OFFSET PRESSMAN communication Problem:Aide for personal cares/mobility/ADL's Goal:Hygiene Needs Met with Assist of OFFSET PRESSMAN Completed Last BM Date: 07/23 Shampoo: No Bathing: Shower Nail Care: Yes Clothing change: Yes Bruised, open or red areas: None noted Nurse notified or aware: No Aide Check Last BM Description: Check last BM. Notify RN if last BM longer than 3 days ago Problem:Aide for personal cares/mobility/ADL's Goal:Hygiene Needs Met with Assist of OFFSET PRESSMAN Completed Aide inspect skin Description: Inspect skin for signs of pressure or irritation. After bathing reapply moisturizer. Report any observed or patient reported concerns to RN. Problem:Aide for personal cares/mobility/ADL's Goal:Hygiene Needs Met with Assist of OFFSET PRESSMAN Completed Aide transfers Description: Assist with transfers using walker. Problem:Aide for personal cares/mobility/ADL's Goal:Hygiene Needs Met with Assist of OFFSET PRESSMAN Completed Aide vitals Description: Obtain blood pressure, [...] cares/mobility/ADL's Goal:Hygiene Needs Met with Assist of OFFSET PRESSMAN Completed Aide tub/shower bath Description: Assistance with bathing using shower stall. Clean shower after bathing. Problem:Aide for personal cares/mobility/ADL's Goal:Hygiene Needs Met with Assist of OFFSET PRESSMAN Completed documented in this encounter Care Teams Electrical Instrumentation Technician Relationship Specialty Start Date End Date Noemi Barnard MD [address] [address] PCP - General INTERNAL MEDICINE 08/23/18 03/03/23 Joni Mckeon MD [facility]. [address] [address] Christopher Organ Tuner Electronic CARDIOVASCULAR DISEASE 07/04/18 documented as of this encounter
--- OUTSIDE RECORDS SUMMARY | 2024-04-05 00:21 | XMS_ITS | Encounter Summary ---
Author Organization [facility] Address [address] [place] [address]. [place] [address] [place] [address] Care Team Providers Care Log Deck Tender Name Role Phone Joni Mckeon MD Unavailable [phone] Elaina Jade MD Primary Care Provider [phone] Reason for Referral * Imaging (Emergency) - Closed Specialty Diagnoses / Procedures Referred By Eugenie crain Referred To Contact RADIOLOGY Procedures CT ABD+PEL WO CON Rea Jenkins MD Referral ID Status Reason Start Date Expiration Date Visits Re quested Visits Authorized [id number] Closed 07/03/2019 08/02/2020 1 1 Reason for Visit * Reason Comments Abnormal Lab Results POSITIVE BLOOD CULT URES. UTI * Auth/Cert Specialty Diagnoses / Procedures Referred By Eugenie crain Referred To Contact Diagnoses Bacteremia Urinary tract infection with hematuria, site unspecified Sepsis, due to unspecified organism, unspecified whether acute organ dysfunction present ([facility]) Bacteremia Referral ID Status Reason Start Date Expiration Date Visits Re quested Visits Authorized [id number] 1 1 Encounter Details Date Type Department Care Team (Late st Contact Info) Description 07/03/2019 1:24 PM CDT - 07/06/2019 3:51 PM CDT Hospital Encounter [facility] [address] [place] [address] Rea Jenkins MD Mahtani, Andrew, MD [place] [address] [phone] (Work) Shy Cosme MD [address] [address] Abnormal Lab Results (POSITIVE BLOOD CULTURES. UTI) Discharge Disposition: Swing Bed Social History [...] Sign Reading Time Taken Comments Blood Pressure 145/66 07/06/2019 12:18 PM CDT Pulse 50 07/06/2019 12:18 PM CDT Temperature 36.6 ??C (97.8 ??F) 07/06/2019 1 2:18 PM CDT Respiratory Rate 18 07/06/2019 12:1 8 PM CDT Oxygen Saturation 95% 07/06/2019 12: 18 PM CDT Inhaled Oxygen Concentration - - Weight 63.4 kg (139 lb 12.4 oz) 07/06/2019 3:34 AM CDT Height 162.6 cm (5' 4 ) 07/03/2019 4:20 PM CDT Body Mass Index 23.99 07/03/2019 4:20 PM CDT documented in this encounter Functional Status * Question Answer Date of Assessment Author Status Do you have serious difficulty walking or climbing stairs? Yes 07/03/2019 5:23 PM CDT Kimberly Jarvis I, RN Acti ve * Question Answer Date of Assessment Author Status Do you have difficulty dressing or bathing? No 07/03/2019 5:23 PM DAVIDT Kimberly Jarvis RN Active Because of a physical, mental, or emotional condition, do you have difficulty doing errands alone such as visiting a doctor's office or shopping? Yes 07/03/2019 5:23 PM DAVIDT Mirtha Jarvis RN Active * RETIRED Are you deaf or do you have serious difficulty hearing Answer Date of Assessment Author Status Yes 07/03/2019 5:23 PM CDT Activ e * RETIRED Are you blind or do you have serious difficulty seeing, even when wearing glasses? Answer Date of Assessment Author Status No 07/03/2019 5:23 PM CDT Activ e * Do you have serious difficulty walking or climbing stairs? Answer Date of Assessment Author Status Yes 07/03/2019 5:23 PM CDT Kimberly Jarvis R N Active * Do you have difficulty dressing or bathing? Answer Date of Assessment Author Status No 07/03/2019 5:23 PM CDT Kimberly Jarvis R N Active * Because of a physical, mental, or emotional condition, do you have difficulty doing errands alone such as visiting a doctor's office or shopping? Answer Date of Assessment Author Status Yes 07/03/2019 5:23 PM CDKimberly Ryan R N Active documented as of this encounter Mental Status * Question Answer Entry Date Author Status Because of a physical, mental, or emotional condition, do you have serious difficulty concentrating, remembering, or making decisions? No 07/03/2019 5:23 PM Kimberly Morales RN Active * Because of a physical, mental, or emotional condition, do you have serious difficulty concentrating, remembering, or making decisions? Answer Entry Date Author Status No 07/03/2019 5:23 PM Kimberly Morales R N Active documented in this encounter Discharge Summaries * Shy Cosme MD - 07/06/2019 3:47 PM CDT Discharge Summary Aviva Ch female 1935 Admit Date: 07/03/2019 1:24 PM Discharge date and time: 07/06/2019 3:47 PM Admitting Physician: Emiliano Hubbard MD Primary Care Physician: ELAINA JADE MD Discharge Physician: SHY COSME MD Admission Diagnosis: Bacteremia [R78.81] Urinary tract infection with hematuria, site unspecified [N39.0, R31.9] Sepsis, due to unspecified organism, unspecified whether acute organ dysfunction present ([facility]) [A41.9] Discharge Diagnosis: Bacteremia Admission Condition: Stable Reason for Hospitalization: E.coli Bactermia Discharged Condition: Stable Code Status: Full Code Hospital Course: 83 yr hx CAD nonobstructiveType 2DM, DL, HTN, hypothyroidism, and carotid artery stenosis was seen in the ED on 07/01 and treated for UTI. The next day the patient was called and informed of + BC. The patient was admitted and found to have E.coli UTI with bacteremia. The patient was treated with ceftriaxone 2gm IVPB qd. The patient remained afebrile and WBC remained normal. Once the sensitivity came back the patient was switched to Ancef. The patient had hypokalemia treated with KCL supplementation. The patient was evaluated by physical therapy and was note to be weak. It was recommended that the patient be admitted to [facility] to facilitate return to independent living safely. Consults: None Significant Diagnostic Studies: None Discharge Exam: Filed Vitals: 07/06/19 0334 07/06/19 0700 07/06/19 0800 07/06/19 1218 BP: 135/47 149/46 149/46 145/66 Pulse: 52 57 50 Resp: 14 18 18 Temp: 98.9 ??F (37.2 ??C) 98.4 ??F (36.9 ??C) 98.4 ??F (36.9 ??C) 97.8 ??F (36.6 ??C) TempSrc: Tympanic Tympanic Tympanic SpO2: 94% 95% 95% Weight: 63.4 kg (139 lb 12.4 oz) Height: Physical Exam Constitutional: She is oriented to person, place, and time. She appears well- developed and well-nourished. HENT: Head: Normocephalic and atraumatic. Eyes: Conjunctivae are normal. Neck: Neck supple. Cardiovascular: Normal rate, regular rhythm and normal heart sounds. Exam reveals no gallop and no friction rub. No murmur heard. Pulmonary/Chest: Breath sounds normal. No respiratory distress. She has no wheezes. She has no rales. She exhibits no tenderness. Abdominal: Bowel sounds are normal. She exhibits no distension. There is no tenderness. There is norebound. Musculoskeletal: She exhibits no edema, tenderness or deformity. Neurological: She is alert and oriented to person, place, and time. Skin: Skin is warm. Psychiatric: She has a normal mood and affect. Discharge Medications: Medication List ASK your doctor about these medications amLODIPine 5 MG tablet Commonly known as: NORVASC TAKE 1 TABLET BY MOUTH DAILY aspirin EC 81 MG tablet Commonly known as: ECOTRIN benazepril 20 MG tablet Commonly known as: LOTENSIN TAKE 1 TABLET BY MOUTH EVERY DAY cephALEXin 500 MG capsule Commonly known as: Keflex Take 1 capsule (500 mg total) by mouth 3 (three) times daily for 7 days. donepezil 10 MG Tabs Commonly known as: ARICEPT hydroCHLOROthiazide 25 MG tablet Commonly known as: HYDRODIURIL Take 1 tablet (25 mg total) by mouth every morning. levothyroxine 50 MCG tablet Commonly known as: SYNTHROID pravastatin 40 MG tablet Commonly known as: PRAVACHOL TAKE 1 TABLET BY MOUTH AT BEDTIME raNITIdine 300 MG tablet Commonly known as: ZANTAC TAKE 1 TABLET BY MOUTH EVERY NIGHT AT BEDTIME sertraline 100 MG tablet Commonly known as: ZOLOFT traZODone 50 MG tablet Commonly known as: DESYREL Vitamin D 50 MCG (1999 UT) Caps Disposition: Swing Bed Follow up: Dr. Jade Time Spent on discharge: Less than 30 minute Signed SHY COSME MD documented in this encounter Medications at Time [...] BY MOUTH DAILY 90 tablet 1 06/20/2019 0 BENAZEPRIL 20 MG tablet [The details of the medication are not available because there are pending changes by a home health clinician.] 90 tablet 1 06/20/2019 0 benazepril 20 MG tablet Take 1 tablet by mouth daily. 06/20/2019 0 cephALEXin (KEFLEX) 500 MG capsule Take 1 capsule (500 mg total) by mouth 3 (three) times daily for 7 days. 21 capsule 07/02/2019 0 furosemide 20 MG tablet [The details of the medication are not available because there are pending changes by a home health clinician.] 30 tablet 07/19/[address] 25 MG tablet Take 1 tablet (25 mg total) by mouth every morning. 90 tablet 3 09/21/2018 0 levothyroxine 50 MCG tabletIndication s:Hypothyroidism Indications: Underactive Thyroid Take 1 tablet (50mcg total) by mouth in the morning on Wednesday and Wednesday. 03/08/2019 0 potassium chloride CR 10 MEQ tablet Take 1 tablet (10 mEq total) by mouth daily with breakfast. 10 tablet 07/19/2019 0 PRAVASTATIN 40 MG tabletIndication s:Hyperlipidemia TAKE 1 TABLET BY MOUTH AT BEDTIME 90 tablet 05/15/2019 0 RANITIDINE 300 MG tabletIndication s:Gastroesophage al reflux disease without esophagitis TAKE 1 TABLET BY MOUTH EVERY NIGHT AT BEDTIME 90 tablet 05/23/2019 0 trazodone 50 MG tabletIndication s:Sleep Disturbance Take 50 mg by mouth nightly at bedtime. Indications: Disturbed Sleep 08/17/2019 0 documented as of this encounter Progress Notes * Barbie Mcarthur PTA - 07/06/2019 3:51 PM CDT Pt progressing toward goals. * Barbie Mcarthur PTA - 07/06/2019 3:51 PM CDT 07/06/19 1316 Therapy Visit Ordering Provider Dr. Hubbard Subjective Pt states she feels OK and agrees to do therapy. Reason for admission Bacteremia Relevant Comorbidities/ Personal Factors to PT Patient came to ED 07/02/19 with c/o weakness - wanted to avoid hospitalization due to general COVID threat. Returned home but called back 07/03/19 for admission due to positive cultures. PMH incluldes HTN, hypercholestremia, CA, DM, GERD, hypothyroid, insomnia, sepsis, RTC repair. Verified Two Patient Identifiers Yes Patient consents to therapy Yes Acute Inpatient PT Time Calculation PT Start Time 1315 PT Stop Time 1343 PT Time Calculation (min) 28 min Precautions Precautions Yes/No Yes General Precautions Bed Alarm;Chair Alarm;Fall Risk;Hard of Hearing;Multiple lines Pain Pain No Activity Tolerance Endurance Tolerates 20 - 30 min activity with rests Bed Mobility Supine to Sit Contact guard assist;SBA/supervision TRANSFERS Stand Pivot Transfers SBA/supervision Sit to Stand Contact guard assist Other (Comment) stand to sit SUPRV. Gait Gait Assistance SBA/supervision;Contact guard assist Assistive Device 4 Wheeled walker Ambulation Distance (Feet) 100' x 2 Weight Bearing Status Total Exercises Ankle Pumps x 10 B Quad Sets x 10 B Short Arc Quad x 10 B Heelslides x 10 B Glut Sets x 10 Hip Flexion x 10 B Hip Abduction x 10 B Sitting LE Exercise LAQ x 10 B Other (Comment) some assist for ex on L LE Patient/Family Training Bed Mobility x Transfer Training x Gait Training x Stair Climbing x Exercise Program x PT Assessment PT Assessment Pt again able to increase amb distance this session. Pt needed increased assist with L LE ex this afternoon most likely due to increased fatigue. No c/o pain after rx. Plan Progress Progressing toward goals If this is the last treatment note,it will serve as the discharge summary Yes End of Session Safety End of Session Safety Chair alarm set/activated;Call light within reach End of Session Comment Pt seated in chair with LEs elevated at end of session. * AMANDA Blum - 07/06/2019 1:35 PM CDT Interdisciplinary Team conference held. In attendance; case management, UR, nursing, PT, OT, cardiopulmonary, MATHEMATICS PROFESSOR, Hospitalist, Pastoral Care, and Pharmacy. Meeting held at 11:00. PT recommending [facility] for continue PT/OT. Spoke to patient and daughter Krystina and both are in agreement with plan. Patient will admit to [facility] today. * Barbie Mcarthur, OUTREACH AND EDUCATION SOCIAL WORKER - 07/06/2019 11:43 AM CDT 07/06/19 0854 Therapy Visit Ordering Provider Dr. Hubbard Subjective Pt states I guess so when asked if she is ready to do therapy. Pt denies c/o pain. Reason for admission Bacteremia Relevant Comorbidities/ Personal Factors to PT Patient came to ED 07/02/19 with c/o weakness - wanted to avoid hospitalization due to general COVID threat. Returned home but called back 07/03/19 for admission due to positive cultures. PMH incluldes HTN, hypercholestremia, CA, DM, GERD, hypothyroid, insomnia, sepsis, RTC repair. Verified Two Patient Identifiers Yes Patient consents to therapy Yes Acute Inpatient PT Time Calculation PT Start Time 0854 PT Stop Time 0919 PT Time Calculation (min) 25 min Precautions Precautions Yes/No Yes General Precautions Bed Alarm;Chair Alarm;Fall Risk;Hard of Hearing;Multiple lines Pain Pain No Activity Tolerance Endurance Tolerates 20 - 30 min activity with rests Bed Mobility Supine to Sit Contact guard assist (to left) TRANSFERS Sit to Stand Min assist;Contact guard assist (CGA from bed, MIN from toilet) Other (Comment) stand to sit CGA; cues for safety Gait Gait Assistance Contact guard assist Assistive Device 4 Wheeled walker Ambulation Distance (Feet) 12' x 2, 100' Weight Bearing Status Total Other (Comment) Assist with IV pole Exercises Ankle Pumps x 10 B Glut Sets x 10 Hip Abduction x 10 B Sitting LE Exercise LAQ x 10 B Patient/Family Training Bed Mobility x Transfer Training x Gait Training x Exercise Program x PT Assessment PT Assessment Pt able to increase amb distance this session. Pt did not need assist with LE ex today. Plan Progress Progressing toward goals If this is the last treatment note,it will serve as the discharge summary Yes End of Session Safety End of Session Safety Chair alarm set/activated;Call light within reach End of Session Comment Pt seated in chair at end of rx with LEs elevated. * Shy Cosme MD - 07/05/2019 7:09 PM CDT Hospital Daily Progress Note History Feeling better but remains weak Physical Exam Filed Vitals: 07/05/19 0803 07/05/19 1252 07/05/19 1300 07/05/19 1700 BP: 130/54 138/45 (!) 142/33 146/43 Pulse: 83 93 55 Resp: 18 18 20 Temp: 97.1 ??F (36.2 ??C) 97.9 ??F (36.6 ??C) 97.9 ??F (36.6 ??C) 98.6 ??F (37 ??C) TempSrc: Tympanic Tympanic Tympanic SpO2: 95% 95% 94% 94% Weight: Height: Intake/Output Summary (Last 24 hours) at 07/05/2019 1909 Last data filed at 07/05/2019 1700 Gross per 24 hour Intake 970 ml Output 1100 ml Net -130 ml Physical Exam Constitutional: She is oriented to person, place, and time. She appears well- developed and well-nourished. HENT: Head: Normocephalic. Eyes: Conjunctivae are normal. Cardiovascular: Normal rate, regular rhythm and normal heart sounds. Pulmonary/Chest: Effort normal and breath sounds normal. Abdominal: Soft. Bowel sounds are normal. There is no tenderness. Neurological: She is oriented to person, place, and time. Skin: Skin is warm. Psychiatric: She has a normal mood and affect. Lab Results Component Value Date NA 143 07/05/2019 K 4.0 07/05/2019 CL 109 (H) 07/05/2019 CO2 23.2 07/05/2019 AGAP 10.8 07/05/2019 BUN 15 07/05/2019 CR 0.68 07/05/2019 BUNCREATININ 22.1 07/05/2019 GFRNON 81 (L) 07/05/2019 GFR >90 07/05/2019 GLU 87 07/05/2019 CA 8.1 (L) 07/05/2019 Lab Results Component Value Date WBC 3.2 (L) 07/05/2019 HGB 11.6 (L) 07/05/2019 PLT 145 (L) 07/05/2019 Lab Results Component Value Date CHOL 149 03/13/2019 TRI 104 03/13/2019 HDL 66 03/13/2019 TP 5.4 (L) 07/05/2019 ALB 2.7 (L) 07/05/2019 ALT 25 07/05/2019 HGBA1C 6.5% 01/17/2019 TSH 7.321 (H) 05/12/2019 Cultures: Blood: Results for orders placed or performed during the hospital encounter of 07/03/19 (from the past 168hour(s)) CULTURE, BACTERIA, BLOOD Collection Time: 07/03/19 1:45 PM Result Value Ref Range Spec. Description BLOOD Special Requests: NO SPECIAL REQUEST Culture Result: NO GROWTH 2 DAYS CULTURE, BACTERIA, BLOOD Collection Time: 07/03/19 1:42 PM Result Value Ref Range Spec. Description BLOOD Special Requests: NO SPECIAL REQUEST Culture Result: NO GROWTH 2 DAYS Urine: Results for orders placed or performed during the hospital encounter of 07/03/19 (from the past 168hour(s)) CULTURE URINE Collection Time: 07/03/19 2:02 PM Result Value Ref Range Spec. Description URINE CLEAN CATCH Special Requests: NO SPECIAL REQUEST Culture Result: NO GROWTH 2 DAYS Respiratory: No results found. Assessment Bacteremia 2/2 UTI, BCx sensitivities pending, urine culture growing greater than 100,000 E. coli. F/u Cx Cont Rocephin Gentle hydration Resume home meds 07/04: Completed Rocephin Rx/ Switched to Ancef Afebrile no urinary symptoms Hypothyroidism Cont current regimen Diabetes ADA diet if pt allows ISS Avoid Metformin while inpatient Hyperlipidemia continue current regimen GERD continue antacid DVT Prophylaxis Heparin Subcutaneous, SCD. Physical Deconditioning Advanced care full code Projected length of stay to home in the next 2 to 3 days pending patient progress . Plan 1. Complete 5 days of IV antibiotics Then transition to 5-7 more days of oral abx 2. DC [facility] tomorrow. SHY COSME MD * Laila Lujan RN - 07/05/2019 6:12 PM CDT Problem: Infection Goal: Absence of infection signs and symptoms Infection/Isolation Outcome: Progressing * Barbie Mcarthur PTA - 07/05/2019 4:45 PM CDT Pt progressing toward goals but does fatigue easily. * Barbie Mcarthur PTA - 07/05/2019 4:44 PM CDT 07/05/19 1517 Therapy Visit Ordering Provider Dr. Hubbard Subjective Pt agrees to take a walk but states she doesn't want to go too far. 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 Reason for admission Bacteremia Relevant Comorbidities/ Personal Factors to PT Patient came to ED 07/02/19 with c/o weakness - wanted to avoid hospitalization due to general COVID threat. Returned home but called back 07/03/19 for admission due to positive cultures. PMH incluldes HTN, hypercholestremia, CA, DM, GERD, hypothyroid, insomnia, sepsis, RTC repair. Verified Two Patient Identifiers Yes Patient consents to therapy Yes Acute Inpatient PT Time Calculation PT Start Time 1517 PT Stop Time 1542 PT Time Calculation (min) 25 min Precautions Precautions Yes/No Yes General Precautions Bed Alarm;Chair Alarm;Fall Risk;Hard of Hearing;Multiple lines Pain Pain No Activity Tolerance Endurance Tolerates 20 - 30 min activity with rests Bed Mobility Sit to Supine Contact guard assist;Min assist to right TRANSFERS Sit to Stand Contact guard assist Other (Comment) stand to sit CGA; cues for proper B UE placement and brakes on 4WW Gait Gait Assistance Contact guard assist Assistive Device 4 Wheeled walker Ambulation Distance (Feet) 10', 50' Weight Bearing Status Total Exercises Ankle Pumps x 10 B Quad Sets x 10 B Heelslides x 10 B Straight Leg Raise x 10 B Glut Sets x 10 Hip Flexion x 10 B Hip Abduction x 10 B Other (Comment) assist needed for some ex Patient/Family Training Bed Mobility cues for sequence Transfer Training cues for safety and sequence Gait Training cues for safety and sequence Exercise Program cues for proper technique PT Assessment PT Assessment Pt was fatigued but able to complete transfers, gait, bed mobility and ex this session. Pt is challenged with LE ex. Plan Progress Progressing toward goals If this is the last treatment note,it will serve as the discharge summary Yes End of Session Safety End of Session Safety Bed alarm set/activated;Call light within reach End of Session Comment Pt lying in bed at end of rx. * Laura Cheatham RN - 07/05/2019 3:53 PM CDT INTERDISCIPLINARY CARE CONFERENCE: TEAM ATTENDANCE: CASE MANAGEMENT, UR, NURSING, PT, OT, CARDIOPULMONARY, MATHEMATICS PROFESSOR, HOSPITALIST HOME HEALTH,PASTORAL CARE, PHARMACY Meeting held at 1100.PT REPORTS PATIENT GOALS SET FOR 07/17. STATED WOULD BENEFIT FROM ALMOST HOME ADMISSION. CONT. WITH IV FLUIDS AND ANTIBIOTICS. * Laura Cheatham RN - 07/05/2019 10:24 AM CDT 07/05/19 1015 Referral Data Referral Reason Discharge Planning Source of Information Patient Patient Information OB Patient < 19 yrs old No Primary Caregiver Self Support System Immediate family Baseline ADL's Functional Status Independent Living Arrangements Alone Type of Residence Private residence ([facility]) Ambulation Assistance No Active DME Four wheel walker Bathing/Grooming Assistance No Dressing Assistance No Behavior Oriented;Cooperative Communication Talks;Understands speaking;Understands Russian Current Services Being Provided Home Health (MAY WANT HOME HEALTH AT DISCHARGE. WOULD LIKE TO TALK TO DAUGHTER FIRST) Socioeconomic Needs Caregiver Needed No At Risk [...] residence Assistance Needed Yes Discharge assistance Home Care Services (WILL DISCUSS WITH DAUGHTER) Patient expects to be discharged to: Home Psychosocial Needs With Indication for Social Work Consult Diagnosis/prognosis resulting in poor adjustment or coping with illness No Diagnosis/prognosis with anticipated outcome of major lifestyle changes, including change in continuous churn buttermaker living environment No Family concerns/conflicts No Inadequate social and/or financial supports No Abuse and/or neglect of elder, adult or child No Psychiatric and/or substance abuse issues affecting current hospitalization No Homelessness with lack of safe discharge environment No Need for guardianship petition No Chaptered patient No LIVES AT INDEPENDENT LIVING APARTMENT AT [place]. UNSURE WHAT HOME HEALTH TO USE. LOOKED ON [facility]. STATED USED ONE IN PAST UNSURE WHO. WOULD LIKE TO DISCUSS WITH DAUGHTER FIRST * Stormy Bacon PTA - 07/05/2019 9:35 AM CDT 07/05/19 0700 Therapy Visit Ordering Provider Dr. Hubbard Subjective I don't want to sit up in the chair today. I sat up yesterday and I didn't sleep well last night. I had to get up 3 times to use the bathroom. Reason for admission Bacteremia Verified Two Patient Identifiers Yes Patient consents to therapy Yes Acute Inpatient PT Time Calculation PT Start Time 08 PT Stop Time 09 PT Time Calculation (min) 35 min PT Therapy Interruption (min) 5' in bathroom Pain Pain No Bed Mobility Supine to Sit Contact guard assist;Min assist to left TRANSFERS Sit to Stand Contact guard assist Other (Comment) vc for UE placement Gait Gait Assistance Contact guard assist Assistive Device 4 Wheeled walker Ambulation Distance (Feet) 15', 60' Weight Bearing Status Total Other (Comment) NBOS Exercises Ankle Pumps x 20 B Quad Sets x 10 B Heelslides x 10 B with assist Straight Leg Raise x 10 B with assist Glut Sets x 15 Hip Abduction x 10 B Patient/Family Training Bed Mobility x Transfer Training x Gait Training x Exercise Program x PT Assessment PT Assessment Pt did better this session. She was able to increase her GT distance, exercise reps and improved with transfers and bed mobility. Pt does fatigue quickly. Plan Progress Progressing toward goals End of Session Safety End of Session Safety Chair alarm set/activated;Call light within reach (Cell phone in reach.) End of Session Comment Pt sitting up in chair. * Clementina Gautam PTA - 07/04/2019 3:06 PM CDT The patient did well with PM therapy treatment and has made moves of progression towards her goals that were set at her evaluation this AM. We will continue to build up endurance tolerance to reach goals in an appropriate time frame. * Clementina Gautam PTA - 07/04/2019 3:05 PM CDT 07/04/19 1300 Therapy Visit Ordering Provider Dr. Hubbard Subjective The patient was on the toilet upon arrival. She was finished and ready to be brought back to bed. The patient reported agreeable the therapy this afternoon. But I'm weak, I may not be able to do much . Reason for admission Bacteremia Verified Two Patient Identifiers Yes Patient consents to therapy Yes Acute Inpatient PT Time Calculation PT Start Time 1431 PT Stop Time 1457 PT Time Calculation (min) 26 min Precautions Precautions Yes/No Yes General Precautions Bed Alarm;Chair Alarm;Fall Risk;Hard of Hearing;Multiple lines Pain Pain Patient does not offer or c/o pain Activity Tolerance Endurance Tolerates 20 - 30 min activity with rests Cognition Overall Cognitive Status WFL Bed Mobility Sit to Supine Min assist to right (assist with LE placement) TRANSFERS Sit to Stand Min assist (Min assist from toilet to stand/ EOB to stand) Other (Comment) Verbal cues for hand placement with transfers Gait Gait Assistance Contact guard assist Assistive Device 4 Wheeled walker Ambulation Distance (Feet) 15' x 1 (bathroom to EOB) Pattern Shuffle steps Weight Bearing Status Total Balance Sitting - Static Independent;Support of both upper extremities Sitting - Dynamic SBA;Support of both upper extremities Standing - Static CGA Standing - Dynamic CGA Other (Comment) Static stood for 1 minute Exercises Ankle Pumps x 10 B Quad Sets x 10 B Heelslides x 5 B (with assist in supine) Knee ROM x 5 B (LA) Straight Leg Raise attempted but unable Glut Sets x 15 Hip Flexion x 10 B (june) Hip Abduction x 5 B (with assist in supine) Patient/Family Training Bed Mobility x Transfer Training x Gait Training x Exercise Program x PT Assessment PT Assessment The patient did very well this afternoon. She was able to complete all transfers withminimal assistance, compared to this morning during her evaluation when she was moderate assistance. The patient was not confortable with walking this afternoon secondary to fatigue, however was ableto ambulate from the bathroom to her bed without issues. The patient was able to stand for a solid minute before having to sit down due to fatigue. The patient did demo increased weakness in the right LE, compared to the left. Plan Progress Progressing toward goals If this is the last treatment note,it will serve as the discharge summary Yes End of Session Safety End of Session Safety Bed alarm set/activated;Call light within reach;Nursing aware of session End of Session Comment The patient was left laying in bed, in hopes to take a nap. * AMANDA Blum - 07/04/2019 2:55 PM CDT Interdisciplinary Team conference held. In attendance; case management, UR, nursing, PT, OT, cardiopulmonary, MATHEMATICS PROFESSOR, Hospitalist, Pastoral Care, and Pharmacy. Meeting held at 11:00. Attending reports possible 2-3 days stay. PT/OT evaluated and stated patient may benefit form [facility]. Will see how patient progresses. * Gina Moyer, PT - 07/04/2019 11:31 AM CDT 07/04/19 1100 Therapy Visit Ordering Provider Dr Hubbard Treatment Day (acute eval) Subjective Patient c/o feeling very weak. Denies pain. Reason for admission Bacteremia Relevant Comorbidities/ Personal Factors to PT Patient came to ED 07/02/19 with c/o weakness - wanted to avoid hospitalization due to general COVID threat. Returned home but called back 07/03/19 for admission due to positive cultures. PMH incluldes HTN, hypercholestremia, CA, DM, GERD, hypothyroid, insomnia, sepsis, RTC repair. Verified Two Patient Identifiers Yes Patient consents to therapy Yes Acute Inpatient PT Time Calculation PT Start Time 09 PT Stop Time 09 PT Time Calculation (min) 20 min PT Therapy Interruption (min) 5' treatment time. 45' eval time. Precautions Precautions Yes/No Yes General Precautions Bed Alarm;Chair Alarm;Hard of Hearing (IV R UE) Instructed on Precautions Yes;Verbalizes understanding Home Living Type of Home Apartment Home Layout (2nd floor apt, uses elevator to get to/from apt) Home Accessibility Ramped entrance;Elevator Home Equipment 4 Wheeled walker Prior Function Level of [place] Independent with ADLs;Independent with functional transfers;Independent with ambulation Device used at baseline 4 Wheeled walker Baseline Ambulation Distance/Assistance short community distances Lives With Alone (Daughter assists only for transportation) Receives Help From Family (daughter assists for transportation) ADL Assistance Independent Homemaking Assistance Independent Pain Pain Patient does not offer or c/o pain (Denies pain) Activity Tolerance Endurance Tolerates 10 - 20 min activity with rests Activity Tolerance Comments fatigues easily with mobility Cognition Overall Cognitive Status WFL Arousal/Alertness Appropriate responses to stimuli Attention Span Appears intact Memory Appears intact Orientation Level Oriented X4 Following Commands Follows all commands and directions without difficulty Safety Judgment Good awareness of safety precautions Sensation Light Touch No apparent deficits Additional Comments Denies N/T Overall Extremity Assessment Upper Extremity WFL B UE, 3/5 B UE seated MMT motions Lower Extremity AROM WFL Lower Extremity Comment 3 B LE MMT motions Bed Mobility Supine to Sit Mod assist to left Other (Comment) Mod assist to scoot to EOB TRANSFERS Stand Pivot Transfers Mod assist Sit to Stand Mod assist Other (Comment) with 4WW, cues for safety/hand placement with trans and brake us Gait Gait Assistance Mod assist Assistive Device 4 Wheeled walker Ambulation Distance (Feet) shuffling steps bed to chair Pattern Shuffle steps (fatigues with steps bed to chair in close proximity) Weight Bearing Status Weight bearing as tolerated Balance Sitting - Static CGA Sitting - Dynamic Min Assist Standing - Static Min Assist Standing - Dynamic Mod Assist Patient/Family Training Bed Mobility x Transfer Training x Gait Training x Precautions x Other (Comment) safety with mobility, PT POC Assessment Personal Factors/Comorbidities Impacting Care 3-4 personal factors/comorbidities Examination of Body Systems Moderate (3 or more Elements) Objectives of Body Systems Impaired bed mobility;Impaired transfers;Impaired ambulation;Impaired balance Clinical Presentation of Patient Evolving and changing characteristics Complexity Level of Evaluation Moderate Prognosis Good (for goals) PT Assess/Eval Other (Comment) Patient with recent medical issues and weakness who is not at her PLOF for mobility. She would benefit from skilled PT to improve overall mobility, safety and enduranceso that she can eventually return home with limited assistance. Anticipate need for swing bed stay to fully meet PT goals. Recommendation PT Recommendation PT during Hospitalization;Swing Bed Unit PT Equipment Recommended To Be Determined Plan PT Treatments/Interventions Gait Training;Therapeutic Exercises;Therapeutic Activities;Neuromuscular re-education;Patient/family training PT Frequency (5-11 visits/wk) PT plan for next session Progress mobility and safety as able. Address EX and endurance as able. If this is the last treatment note,it will serve as the discharge summary Yes End of Session Safety End of Session Safety Chair alarm set/activated;Call light within reach;Nursing aware of session documented in this encounter H&P Notes * Emiliano Hubbard MD - 07/04/2019 11:10 AM CDT Hospitalist History and Physical Admission date: 07/03/2019 Reason for Admission: Bacteremia History of present illness: Aviva Ch is a 83-year-old female, who has a past medical history of Cancer ([facility]), Diabetes ([facility]), GERD (gastroesophageal reflux disease), Hyperlipidemia, Hypertension, Hypothyroidism, Insomnia, Sepsis ([facility]), and Vitamin D deficiency.; and a has a past surgical history that includes Abdominal surgery; breast reduction bilateral; Cholecystectomy; colonoscopy; Hemorrhoidectomy; Hysterectomy; inner ear surgery proc unlisted; and repair rotator cuff,acute. Who presents with positive blood cultures after being sent home for treatment for UTI. Urine culture grew E. coli greater than 100,000 sensitivities pending. Blood culture 1 out of 2 grew are growing gram-negative rods sensitivities pending. She notes that she is profoundly weak, potassium is low 2.7. Denies fevers, chills, chest pain, shortness of [...] mouth daily. ) 90 tablet 1 ??? cephALEXin (KEFLEX) 500 MG capsule Take 1 capsule (500 mg total) by mouth 3 (three) times dailyfor 7 days. 21 capsule 0 ??? Cholecalciferol (VITAMIN D) 2000 units Cap Take 2,000 Units by mouth daily. ??? donepezil 10 MG Tab Take 10 mg by mouth every morning. ??? hydrochlorothiazide 25 MG tablet Take 1 tablet (25 mg total) by mouth every morning. 90 tablet 3 ??? levothyroxine 50 MCG tablet Take 1 tablet (50mcg total) by mouth in the morning on Wednesday andWednesday. ??? PRAVASTATIN 40 MG tablet TAKE 1 TABLET BY MOUTH AT BEDTIME (Patient taking differently: Take 40mg by mouth nightly at bedtime. ) 90 tablet 0 ??? RANITIDINE 300 MG tablet TAKE 1 TABLET BY MOUTH EVERY NIGHT AT BEDTIME (Patient taking differently: Take 300 mg by mouth nightly at bedtime. ) 90 tablet 0 ??? sertraline 100 MG tablet Take 100 mg by mouth every morning. ??? trazodone 50 MG tablet Take 50 mg by mouth nightly at bedtime. Current Facility-Administered Medications Medication ??? acetaminophen (TYLENOL) tablet 650 mg ??? cefTRIAXone (ROCEPHIN) 2 g in sterile water 20 mL IV ??? famotidine (PEPCID) injection 20 mg Or ??? famotidine (PEPCID) tablet 20 mg ??? heparin (porcine) injection 5,000 Units ??? insulin lispro (HUMALOG) injection 0-14 Units And ??? insulin lispro (HUMALOG) injection 0-7 Units ??? iveufftdv-myhrslxu-rlkazmynkeq (MYLANTA MAXIMUM STRENGTH) 8676-4506-004 mg/30mL suspension ??? melatonin tablet 3 mg ??? metroNIDAZOLE (FLAGYL) IVPB 500 mg ??? ondansetron (ZOFRAN) injection 4 mg ??? potassium chloride 10 mEq in SW 100 mL IVPB ??? potassium chloride CR (KLOR-CON M) tablet 40 mEq ??? Senna (SENOKOT) 8.6 MG tablet 8.6 mg ??? sodium chloride 0.9% infusion Past Medical History Past Medical History: Diagnosis [...] file Gets together: Not on file Attends spiritism service: Not on file Active member of [...] positive as per HPI. Physical Exam: Vitals: 07/04/19 0800 BP: 116/41 Pulse: 53 Resp: 20 Temp: 98.2 ??F (36.8 ??C) SpO2: 96% General: Laying in bed, tired. Eyes: EOMI, [...] shifts: I/O last 3 completed shifts: In: 440 [P.O.:340; IV Piggyback:100] Out: 500 [Urine:500] Labs: Recent Labs Lab 07/02/19159907/03/19134107/04/19 0714 NA 136 136 141 K 2.7* 3.1* 2.7* CL 98* 98* 105 CO2 25.4 24.8 23.2 AGAP 12.6 13.2 12.8 BUN 22* 31* 24* CR 1.06* 1.39* 0.87 BUNCREATININ 20.8 22.3 27.6* GFRNON 49* 35* 62* GFR 56* 41* 71* GLU 162* 114* 76 CA 9.1 9.4 8.0* MAGNESIUM 1.5* -- -- Recent Labs Lab 07/02/19 1600 07/03/19 1342 07/04/19 0714 WBC 8.3 6.9 3.8* RBC 4.37* 4.69 3.90* HGB 12.7 13.5 11.3* HCT 37.9 40.7 34.6* MCV 86.7 86.8 88.7 MCH 29.1 28.8 29.0 MCHC 33.5 33.2 32.7 PLT 145* 165 127* RDW 13.3 13.5 13.5 MPV 9.7 10.5 10.7 Recent Labs Lab 07/02/19 1600 07/03/19 1342 07/04/19 0714 AST 18 24 24 ALT 25 30 21 No results for input(s): INR, PTT in the last 168 hours. Invalid input(s): ABG Recent Labs Lab 07/02/19 1600 07/03/19 1342 TROP <0.017 <0.017 No results for input(s): PH, PCO2, PO2, P3NEEUZGVBOL, BICARBWB, BASEDEFICIT, BASEEXCESS in the diof242 hours. Imaging & Other Studies No results found. Results for orders placed or performed during the hospital encounter of 07/03/19 ECG 12-Lead Narrative [facility] Test Date: 2019-07-03 Pat Name: AVIVA CH Department: Room: 123 Gender: Female Muff Winder: RR : 1935 Requested By: REA JENKINS Order Number: [id number] Reading MD: Scott Cabello Measurements Intervals Cassel Rate: 81 P: SC: 0 QRS: 26 QRSD: 145 T: -15 QT: 412 QTc: 478 Interpretive Statements ATRIAL FIBRILLATION INDETERMINATE AXIS RIGHT BUNDLE BRANCH BLOCK [120+ ms QRS DURATION, UPRIGHT V1, 40+ ms S IN I/aVL/V4/V5/V6] Compared to ECG 07/02/2019 15:54:08 Indeterminate axis now present Right-axis deviation no longer present ST (T wave) deviation no longer present Active Problems: Patient Active Problem List Diagnosis Date Noted ??? Bacteremia 07/03/2019 ??? Physical deconditioning 11/02/2018 [...] disease) 05/17/2017 ??? Colitis 03/17/2017 ??? Claudication ([facility]) 08/10/2016 ??? 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 Lumbago 08/10/2016 ??? Hypothyroidism 08/07/2015 ??? Insomnia 01/11/2015 ??? Diabetes mellitus ([facility]) 12/25/2014 ??? Hyperlipidemia 12/25/2014 ??? Hypertension 12/25/2014 Assessment & Plan: Bacteremia 2/2 UTI, BCx sensitivities pending, urine culture growing greater than 100,000 E. coli. F/u Cx Cont Rocephin Gentle hydration Resume home meds Hypothyroidism Cont current regimen Diabetes ADA diet if pt allows ISS Avoid Metformin while inpatient Hyperlipidemia continue current regimen GERD continue antacid DVT Prophylaxis Heparin Subcutaneous, SCD. Advanced care full code Projected length of stay to home in the next 2 to 3 days pending patient progress EMILIANO HUBBARD MD 07/04/2019 11:10 AM documented in this encounter ED Notes * Rea Jenkins MD - 07/03/2019 2:28 PM CDT Chief Complaint Chief Complaint Patient presents with ??? Abnormal Lab Results POSITIVE BLOOD CULTURES. UTI History of Present Illness 83yo F w/ HTN, GERD, DM, and hypothyroidism p/w malaise and fever Seen yesterday for same with diagnosis of UTI 1 week of symptoms. Generally feels unwell, weakness, and poor appetite. +Dysuria +abdominal pain, worst in LLQ Today called back to ER as BCx from yesterday has gram stain positive for GNR. Taking keflex Medical History ALLERGIES: Allergies Allergen Reactions ??? Septra [Sulfamethoxazole-Trimethoprim] Rash MEDICATIONS: Prior to Admission medications Medication Sig Start Date End Date Taking? Authorizing Provider AMLODIPINE 5 MG tablet TAKE 1 TABLET BY MOUTH DAILY 06/20/19 Joni Mckeon MD amlodipine-benazepril 5-20 MG capsule Take 1 capsule by mouth daily. 09/21/18 Joni Mckeon MD aspirin EC 81 MG EC tablet Take 1 tablet by mouth daily. 01/03/18 Elaina Jade MD BENAZEPRIL 20 MG tablet TAKE 1 TABLET BY MOUTH EVERY DAY 06/20/19 Joni Mckeon MD cephALEXin (KEFLEX) 500 MG capsule Take 1 capsule (500 mg total) by mouth 3 (three) times daily for7 days. 07/02/19 07/09/19 Kamari Daley, Cholecalciferol (VITAMIN D) 2000 units Cap Take 1 capsule by mouth daily. 01/03/18 Elaina Jade MD donepezil 10 MG Tab Take by mouth every morning. Doc Abstract hydrochlorothiazide 25 MG tablet Take 1 tablet (25 mg total) by mouth every morning. 09/21/18 Joni Price MD levothyroxine 50 MCG tablet Take 1 tablet (50mcg total) by mouth in the morning on Wednesday and Wednesday. 03/08/19 Joni Mckeon MD PRAVASTATIN 40 MG tablet TAKE 1 TABLET BY MOUTH AT BEDTIME 05/15/19 Elaina Jade MD RANITIDINE 300 MG tablet TAKE 1 TABLET BY MOUTH EVERY NIGHT AT BEDTIME 05/23/19 Elaina Jade MD sertraline 100 MG tablet [...] Review of Systems Review of Systems Constitutional: Positive for appetite change, fatigue and fever. HENT: Negative for facial swelling. Eyes: Negative for visual disturbance. Respiratory: Negative for shortness of breath. Cardiovascular: Negative for chest pain. Gastrointestinal: Positive for abdominal pain. Negative for diarrhea. Genitourinary: Negative for dysuria. Musculoskeletal: Negative for arthralgias. Skin: Negative for rash. Neurological: Positive for weakness. Negative for seizures. Psychiatric/Behavioral: Negative for suicidal ideas. Physical Exam Filed Vitals: 07/03/19 1338 07/03/19 1345 07/03/19 1400 07/03/19 1500 BP: 118/59 118/59 124/54 124/59 Pulse: 93 92 83 77 Resp: Temp: 98.4 ??F (36.9 ??C) TempSrc: Oral SpO2: 96% 95% 94% 94% Weight: 59 kg (130 lb) Height: 5' 4 (1.626 m) Physical Exam Constitutional: She is oriented to person, place, and time. She appears well-developed. HENT: Head: Normocephalic and atraumatic. Eyes: Pupils are equal, round, and reactive to light. EOM are normal. Neck: Neck supple. Cardiovascular: Normal rate, regular rhythm, normal heart sounds and intact distal pulses. Pulmonary/Chest: Effort normal. No respiratory distress. Abdominal: Soft. Bowel sounds are normal. There is tenderness (LLQ). There is no rebound. Musculoskeletal: Normal range of motion. Neurological: She is alert and oriented to person, place, and time. Skin: Skin is warm and dry. She is not diaphoretic. Psychiatric: She has a normal mood and affect. Nursing note and vitals reviewed. Diagnostic Studies / Procedures ELECTROCARDIOGRAMS: Results for orders placed or performed during the hospital encounter of 07/03/19 ECG 12-Lead Narrative [facility] Test Date: 2019-07-03 Pat Name: AVIVA CH Department: Room: EXAM 202 Gender: Female Muff Winder: VINICIUS : 1935 Requested By: REA JENKINS Order Number: [id number] Reading MD: Measurements Intervals [place] Rate: 81 P: SC: 0 QRS: 26 QRSD: 145 T: -15 QT: 412 QTc: 478 Interpretive Statements ATRIAL FIBRILLATION INDETERMINATE AXIS RIGHT BUNDLE BRANCH BLOCK [120+ ms QRS DURATION, UPRIGHT V1, 40+ ms S IN I/aVL/V4/V5/V6] Compared to ECG 07/02/2019 15:54:08 Indeterminate axis now present Right-axis deviation no longer present ST (T wave) deviation no longer present My Interpretation: sinus arrhythmia, 80bpm, RBBB, no STEMI LABORATORY STUDIES: Results for orders placed or performed during the hospital encounter of 07/03/19 CBC W/DIFF AUTOMATED Result Value Ref Range WBC 6.9 4.4 - 11.0 x10'3/uL RBC 4.69 4.50 - 5.10 x10'6/uL HGB 13.5 12.3 - 15.3 G/DL HCT 40.7 35.9 - 44.6 % MCV 86.8 80.0 - 96.0 FL MCH 28.8 25.3 - 30.9 PG MCHC 33.2 31.0 - 34.1 G/DL RDW 13.5 12.4 - 15.1 % PLT 165 151 - 353 x10'3/uL MPV 10.5 9.6 - 12.0 FL SEG NEUTROPHILS 90 (H) 42 - 72 % BANDS 2 % LYMPHOCYTES 3 (L) 15.8 - 45.0 % MONOCYTES 5 (L) 5.7 - 12.5 % ABS. NEUTROPHILS TOTAL 6.35 (H) 1.40 - 6.00 x10'3/uL ABS. LYMPHOCYTES 0.21 (L) 0.80 - 4.70 x10'3/uL PLT MORPH. NORMAL RBC MORPHOLOGY NORMAL WBC MORPHOLOGY NORMAL LACTIC ACID Result Value Ref Range LACTIC ACID 1.8 0.4 - 2.0 MMOL/L Comprehensive metabolic panel Result Value Ref Range GLUCOSE 114 (H) 70 - 99 MG/DL BUN 31 (H) 7 - 18 MG/DL CREATININE S/P/B 1.39 (H) 0.55 - 1.02 MG/DL SODIUM 136 136 - 145 MMOL/L POTASSIUM 3.1 (L) 3.5 - 5.1 MMOL/L CHLORIDE S/P/B 98 (L) 100 - 108 MMOL/L CO2 24.8 21 - 32 MMOL/L CALCIUM 9.4 8.5 - 10.1 MG/DL TOTAL BILIRUBIN S/P/B 0.7 0.2 - 1.2 MG/DL TOTAL PROTEIN 7.5 6.4 - 8.2 G/DL ALBUMIN S/P/B 3.6 3.4 - 5.0 G/DL AST 24 15 - 37 U/L ALT 30 14 - 55 U/L ALK PHOS 83 50 - 136 U/L ANION GAP 13.2 5 - 15 MMOL/L BUN CREATININE RATIO 22.3 6 - 26 A/G RATIO 0.9 (L) 1.0 - 2.0 RATIO eGFR Non-Afr. Amer. 35 (L) >90 ML/MIN/1.73 M2 eGFR Afr. Amer. 41 (L) >90 ML/MIN/1.73 M2 URINALYSIS Result Value Ref Range COLOR (U) YELLOW TRANSPARENCY CLOUDY Specific [place] (U) 1.020 1.000 - 1.030 U PH 5.5 5.0 - 9.0 LEUKOCYTE ESTERASE 2+ (A) NEGATIVE NITRITES NEGATIVE NEGATIVE PROTEIN(U) TRACE (A) NEGATIVE URINE GLUCOSE NEGATIVE NEGATIVE U KETONES TRACE (A) NEGATIVE BILIRUBIN (U) NEGATIVE NEGATIVE BLOOD 2+ (A) NEGATIVE CULTURE & SENSITIVITY INDICATED? SPECIMEN SETUP FOR CULTURE TROPONIN, QUANT Result Value Ref Range TROPONIN I <0.017 0.000 - 0.056 ng/mL. URINALYSIS MICRO ONLY Result Value Ref Range WBC/HPF 10-25 0 - 5 /HPF RBC/HPF 5-10 0 - 5 /HPF EPI/HPF MODERATE /HPF BACTERIA (URINE) FEW /HPF IMAGING STUDIES XR CHEST PORTABLE Final Result by User, [id number] (07/02 2037) IMAGING STUDIES: XR CHEST PORTABLE DATE: 07/03/2019 2:29 PM CLINICAL HISTORY: sepsis . COMPARISON: 07/02/2019 IMPRESSION: 1. No evidence of acute cardiopulmonary disease. 2. No evidence of pleural effusion or pneumothorax. No CHF. Stable mild scattered interstitial fibrosis. Stable moderate elevation of the right hemidiaphragm. 3. Atherosclerotic aorta. Mild cardiomegaly. Degenerative change in thoracic spine. Interpreted By: Maren Granda, 07/03/2019 3:[address] ABD+PEL WO CON Final Result by User, [id number] (07/02 1523) IMAGING STUDIES: CT ABD+PEL WO CON DATE: 07/03/2019 2:29 PM CLINICAL HISTORY: Abd pain, fever, abscess suspected . Lower abdominal pain. History of diverticulitis. IMPRESSION: 1. Routine CT of the abdomen [...] Interpreted By: Maren Granda, 07/03/2019 3:03 PM ED Course / Medical Decision Making I reviewed all ED labs and imaging studies. All EKGs interpreted by myself in realtime. I reviewed old records noting relevant: yesterday seen for same, at that time family and patient concerned for admission due to COVID-19 concerns BCx from yesterday with gram stain showing GNR. This is consistent with urinary source of infection Patient has history of diverticulitis and abd pain today. This would also lead to GNR in BCx. CTAP obtained. CLAUDIO today compared to yesterday IV fluids resuscitation in ED. ABX coverage broadened back to ceftriaxone (prior UCx shows e coli sensative to ceftriaxone). Given results of CTAP with concern for diverticulitis will also start Flagyl. This patient at high risk for medical decompensation or if not admitted with proper IV antibiotics and then therapy tailored to culture results. Will admit to hospital for minimum 48 hours to show improvement and negative cultures. I discussed this plan of care with the patient and any available family/friends who are at bedside.All questions answered to the best of my ability. Clinical Impression Sepsis, due to unspecified organism, unspecified whether acute organ dysfunction present (CMS/HCC) (Primary) Bacteremia Urinary tract infection with hematuria, site unspecified Disposition: Admit Rea Jenkins MD 07/03/19 1611 * Evelyn Boateng RN - 07/03/2019 1:41 PM CDT TO ED FROM HOME. PATIENT LIVES AT [facility] [place]. PATIENT WAS SEEN IN ED ONE DAY AGOFOR URINARY SYMPTOMS AND SOB. PATIENT BEING TREATED AT HOME WITH PO ABX. PATIENT CAME BACK TO ED TODAY DUE BLOOD CULTURES COMING BACK POSITIVE. documented in this encounter Plan of Treatment Not on file documented as of this encounter Goals Goal Patient Goal Type Associated Problems Recent Progress Patient-Stated? Author [facility] General No Laura Cheatham RN documented as of this encounter Procedures Procedure Name Priority Date/Time Associated Diagnosis Comments POCT GLUCOSE - MARISCAL DOCKED DEVICE Routine 07/06/2019 12:25 PM CDT COMPREHENSIVE METABOLIC PANEL Routine 07/06/2019 8:16 AM CDT CBC W/DIFF AUTOMATED Routine 07/06/2019 8:16 AM CDT POCT GLUCOSE - MARISCAL DOCKED DEVICE Routine 07/06/2019 6:12 AM CDT POCT GLUCOSE - MARISCAL DOCKED DEVICE Routine 07/05/2019 9:11 PM CDT POCT GLUCOSE - MARISCAL DOCKED DEVICE Routine 07/05/2019 4:56 PM CDT POCT GLUCOSE - MARISCAL DOCKED DEVICE Routine 07/05/2019 11:53 AM CDT COMPREHENSIVE METABOLIC PANEL Routine 07/05/2019 6:37 AM CDT CBC W/DIFF AUTOMATED Routine 07/05/2019 6:37 AM CDT POCT GLUCOSE - MARISCAL DOCKED DEVICE Routine 07/05/2019 6:36 AM CDT POCT GLUCOSE - MARISCAL DOCKED DEVICE Routine 07/04/2019 9:25 PM CDT POCT GLUCOSE - MARISCAL DOCKED DEVICE Routine 07/04/2019 5:13 PM CDT POCT GLUCOSE - MARISCAL DOCKED DEVICE Routine 07/04/2019 2:22 PM CDT POCT GLUCOSE - MARISCAL DOCKED DEVICE Routine 07/04/2019 12:38 PM CDT COMPREHENSIVE METABOLIC PANEL Routine 07/04/2019 7:14 AM CDT CBC W/DIFF AUTOMATED Routine 07/04/2019 7:14 AM CDT XR CHEST PORTABLE STAT 07/03/2019 3:[address] ABD+PEL WO CON STAT 07/03/2019 3:0 0 PM CDT ECG 12-LEAD STAT 07/03/2019 2:19 PM CDT HC URINALYSIS AUTO W/O MICRO STAT 07/03/2019 2:02 PM CDT URINE BACTERIA CULTURE STAT 0 2:02 PM CDT URINALYSIS MICRO ONLY STAT 07/03/2019 2:02 PM CDT CULTURE, BACTERIA, BLOOD STAT 07/03/2019 1:45 PM CDT COMPREHENSIVE METABOLIC PANEL STAT 07/03/2019 1:42 PM CDT LACTIC ACID STAT 07/03/2019 1:42 PM CDT CULTURE, BACTERIA, BLOOD STAT 07/03/2019 1:42 PM CDT CBC W/DIFF AUTOMATED STAT 07/03/2019 1:42 PM CDT TROPONIN, QUANT STAT 07/03/2019 1:42 PM CDT documented in this encounter Results * (ABNORMAL) POCT glucose (07/06/2019 12:25 PM CDT) GLUCOSE POC 124(H) 70 - 110 mg/dL 07/06/2019 12:49 PM CDT [facility] INTERFACE 07/06/2019 12:2 5 PM CDT us Shy Cosme MD POCT ORDERABLES - DEVICE Final Result [facility] INTERFACE US * (ABNORMAL) COMPREHENSIVE METABOLIC PANEL (07/06/2019 8:16 AM CDT) [facility] GLUCOSE 93 70 - 99 MG/DL 07/06/2019 8:52 AM CDT [facility] BUN 9 7 - 18 MG/DL 07/06/2019 8:52 AM CDT [facility] CREATININE S/P/B 0.80 0.55 - 1.02 MG/DL 07/06/2019 8:52 AM CDT [facility] SODIUM S/P/B 144 136 - 145 MMOL/L 07/06/2019 8:52 AM CDT [facility] POTASSIUM S/P/B 3.4(L) 3.5 - 5.1 MMOL/L 07/06/2019 8:52 AM CDT [facility] CHLORIDE S/P/B 107 100 - 108 MMOL/L 07/06/2019 8:52 AM CDT [facility] CO2 25.8 21 - 32 MMOL/L 07/06/2019 8:52 AM [facility] CALCIUM S/P/B 8.4(L) 8.5 - 10.1 MG/DL 07/06/2019 8:52 AM [facility] BILIRUBIN TOTAL S/P/B 0.3 0.2 - 1.2 MG/DL 07/06/2019 8:52 AM [facility] TOTAL PROTEIN S/P/B 6.1(L) 6.4 - 8.2 G/DL 07/06/2019 8:52 AM [facility] ALBUMIN S/P/B 2.9(L) 3.4 - 5.0 G/DL 07/06/2019 8:52 AM [facility] AST 39(H) 15 - 37 U/L 07/06/2019 8:52 AM [facility] ALT 29 14 - 55 U/L 07/06/2019 8:52 AM [facility] ALKALINE PHOSPHATASE S/P/B 73 50 - 136 U/L 07/06/2019 8:52 AM [facility] ANION GAP 11.2 5 - 15 MMOL/L 07/06/2019 8:52 AM [facility] BUN CREATININE RATIO 11.2 6 - 26 07/06/2019 8:52 AM [facility] A/G RATIO 0.9(L) 1.0 - 2.0 RATIO 07/06/2019 8:52 AM [facility] EGFR NON-AFR. AMER. 68(L) >90 ML/MIN/1.7 3 M2 07/06/2019 8:52 AM [facility] EGFR AFR. AMER. 79(L) >90 ML/MIN/1.7 3 M2 07/06/2019 8:52 AM CDT [facility] Comment: NOTE: eGFR is not calculated for patients <18 years of age. This is an estimated GFR (CKD EPI) and should not be used for calculating drug doses. 07/06/2019 8:16 AM CDT Emliiano Hubbard MD LABORATORY Final Result [facility] [address] [place] [address], * (ABNORMAL) CBC W/DIFF AUTOMATED (07/06/2019 8:16 AM CDT) WBC 3.7(L) 4.4 - 11.0 x10'3/uL 07/06/2019 8:45 AM CDT [facility] RBC 4.18(L) 4.50 - 5.10 x10'6/uL 07/06/2019 8:45 AM CDT [facility] HGB 11.8(L) 12.3 - 15.3 G/DL 07/06/2019 8:45 AM CDT [facility] HCT 36.3 35.9 - 44.6 % 07/06/2019 8:45 AM CDT [facility] MCV 86.8 80.0 - 96.0 FL 07/06/2019 8:45 AM CDT [facility] MCH 28.2 25.3 - 30.9 PG 07/06/2019 8:45 AM CDT [facility] MCHC 32.5 31.0 - 34.1 G/DL 07/06/2019 8:45 AM CDT [facility] RDW 13.6 12.4 - 15.1 % 07/06/2019 8:45 AM CDT [facility] PLT 167 151 - 353 x10'3/uL 07/06/2019 8:45 AM CDT [facility] MPV 10.4 9.6 - 12.0 FL 07/06/2019 8:45 AM CDT [facility] RBC MORPHOLOGY NORMAL 07/06/2019 8:45 AM CDT [facility] PLT MORPH. NORMAL 07/06/2019 8:45 AM CDT [facility] WBC MORPHOLOGY NORMAL 07/06/2019 8:45 AM CDT [facility] LYMPHOCYTES % 15.6(L) 15.8 - 45.0 % 07/06/2019 8:46 AM CDT [facility] NEUTROPHILS % 72.4(H) 42.1 - 71.9 % 07/06/2019 8:46 AM CDT [facility] MONOCYTES % 7.7 5.7 - 12.5 % 07/06/2019 8:46 AM T [facility] EOSINOPHILS 3.3 0.0 - 5.6 % 07/06/2019 8:46 AM CDT [facility] BASOPHILS 0.5 0.0 - 1.3 % 07/06/2019 8:46 AM CDT [facility] ABS. NEUTROPHILS TOTAL 2.65 1.40 - 6.00 x10'3/uL 07/06/2019 8:46 AM CDT [facility] IMMATURE GRANS % 0.5 0.0 - 0.5 % 07/06/2019 8:46 AM T [facility] ABS. LYMPHOCYTES 0.57(L) 0.80 - 4.70 x10'3/uL 07/06/2019 8:46 AM T [facility] 07/06/2019 8:16 AM CDT us Emiliano Hubbard MD LABORATORY Final Result [facility] [address] [place] [address], [place] [phone] * POCT glucose (07/06/2019 6:12 AM CDT) GLUCOSE POC 89 70 - 110 mg/dL 07/06/2019 6:21 AM CDT [facility] ORDERS INTERFACE 07/06/2019 6:12 AM CDT us Shy Cosme MD POCT ORDERABLES - DEVICE Final Result Performing Organization Address City/[facility]/ZIP Co de Phone Number [facility] ORDERS INTERFACE US * (ABNORMAL) POCT glucose (07/05/2019 9:11 PM CDT) GLUCOSE POC 121(H) 70 - 110 mg/dL 07/05/2019 11:42 PM CDT [facility] ORDERS INTERFACE 07/05/2019 9:11 PM CDT Shy Cosme MD POCT ORDERABLES - DEVICE Final Result Performing Organization Address [facility] Co de Phone Number [facility] ORDERS INTERFACE US * POCT glucose (07/05/2019 4:56 PM CDT) GLUCOSE POC 102 70 - 110 mg/dL 07/05/2019 5:01 PM CDT [facility] ORDERS INTERFACE 07/05/2019 4:56 PM CDT us Shy Cosme MD POCT ORDERABLES - DEVICE Final Result Performing Organization Address City/[facility]/ZIP Co de Phone Number [facility] ORDERS INTERFACE US * POCT glucose (07/05/2019 11:53 AM CDT) GLUCOSE POC 95 70 - 110 mg/dL 07/05/2019 12:05 PM CDT [facility] ORDERS INTERFACE 07/05/2019 11:5 3 AM CDT us Shy Cosme MD POCT ORDERABLES - DEVICE Final Result [facility] ORDERS INTERFACE US * (ABNORMAL) COMPREHENSIVE METABOLIC PANEL (07/05/2019 6:37 AM CDT) [facility] Signature GLUCOSE 87 70 - 99 MG/DL 07/05/2019 7:40 AM CDT [facility] BUN 15 7 - 18 MG/DL 07/05/2019 7:40 AM CDT [facility] CREATININE S/P/B 0.68 0.55 - 1.02 MG/DL 07/05/2019 7:40 AM CDT [facility] SODIUM S/P/B 143 136 - 145 MMOL/L 07/05/2019 7:40 AM CDT [facility] POTASSIUM S/P/B 4.0 3.5 - 5.1 MMOL/L 07/05/2019 7:40 AM CDT [facility] CHLORIDE S/P/B 109(H) 100 - 108 MMOL/L 07/05/2019 7:40 AM CDT [facility] CO2 23.2 21 - 32 MMOL/L 07/05/2019 7:40 AM T [facility] CALCIUM S/P/B 8.1(L) 8.5 - 10.1 MG/DL 07/05/2019 7:40 AM CDT [facility] BILIRUBIN TOTAL S/P/B 0.2 0.2 - 1.2 MG/DL 07/05/2019 7:40 AM T [facility] TOTAL PROTEIN S/P/B 5.4(L) 6.4 - 8.2 G/DL 07/05/2019 7:40 AM T [facility] ALBUMIN S/P/B 2.7(L) 3.4 - 5.0 G/DL 07/05/2019 7:40 AM T [facility] AST 25 15 - 37 U/L 07/05/2019 7:40 AM CDT [facility] ALT 25 14 - 55 U/L 07/05/2019 7:40 AM CDT [facility] ALKALINE PHOSPHATASE S/P/B 72 50 - 136 U/L 07/05/2019 7:40 AM CDT [facility] ANION GAP 10.8 5 - 15 MMOL/L 07/05/2019 7:40 AM CDT [facility] BUN CREATININE RATIO 22.1 6 - 26 07/05/2019 7:40 AM CDT [facility] A/G RATIO 1.0 1.0 - 2.0 RATIO 07/05/2019 7:40 AM T [facility] EGFR NON-AFR. AMER. 81(L) >90 ML/MIN/1.7 3 M2 07/05/2019 7:40 AM CDT [facility] EGFR AFR. AMER. >90 >90 ML/MIN/1.7 3 M2 07/05/2019 7:40 AM T [facility] Comment: NOTE: eGFR is not calculated for patients <18 years of age. This is an estimated GFR (CKD EPI) and should not be used for calculating drug doses. 07/05/2019 6:37 AM CDT Emiliano Hubbard MD LABORATORY Final Result [facility] [address] [place] [address], * (ABNORMAL) CBC W/DIFF AUTOMATED (07/05/2019 6:37 AM CDT) WBC 3.2(L) 4.4 - 11.0 x10'3/uL 07/05/2019 7:16 AM CDT [facility] RBC 3.93(L) 4.50 - 5.10 x10'6/uL 07/05/2019 7:16 AM CDT [facility] HGB 11.6(L) 12.3 - 15.3 G/DL 07/05/2019 7:16 AM T [facility] HCT 34.7(L) 35.9 - 44.6 % 07/05/2019 7:16 AM CDT [facility] MCV 88.3 80.0 - 96.0 FL 07/05/2019 7:16 AM CDT [facility] MCH 29.5 25.3 - 30.9 PG 07/05/2019 7:16 AM CDT [facility] MCHC 33.4 31.0 - 34.1 G/DL 07/05/2019 7:16 AM [facility] RDW 13.7 12.4 - 15.1 % 07/05/2019 7:16 AM [facility] PLT 145(L) 151 - 353 x10'3/uL 07/05/2019 7:16 AM T [facility] MPV 10.7 9.6 - 12.0 FL 07/05/2019 7:16 AM T [facility] RBC MORPHOLOGY NORMAL 07/05/2019 7:16 AM T [facility] PLT MORPH. NORMAL 07/05/2019 7:16 AM T [facility] WBC MORPHOLOGY NORMAL 07/05/2019 7:16 AM T [facility] LYMPHOCYTES % 14.9(L) 15.8 - 45.0 % 07/05/2019 7:17 AM T [facility] NEUTROPHILS % 70.6 42.1 - 71.9 % 07/05/2019 7:17 AM T [facility] MONOCYTES % 12.3 5.7 - 12.5 % 07/05/2019 7:17 AM CDT [facility] EOSINOPHILS 1.6 0.0 - 5.6 % 07/05/2019 7:17 AM CDT [facility] BASOPHILS 0.3 0.0 - 1.3 % 07/05/2019 7:17 AM CDT [facility] ABS. NEUTROPHILS TOTAL 2.23 1.40 - 6.00 x10'3/uL 07/05/2019 7:17 AM CDT [facility] IMMATURE GRANS % 0.3 0.0 - 0.5 % 07/05/2019 7:17 AM CDT [facility] ABS. LYMPHOCYTES 0.47(L) 0.80 - 4.70 x10'3/uL 07/05/2019 7:17 AM CDT [facility] 07/05/2019 6:37 AM CDT Emiliano Hubbard MD LABORATORY Final Result [facility] [address] [place] [address], [place] [phone] * POCT glucose (07/05/2019 6:36 AM CDT) GLUCOSE POC 75 70 - 110 mg/dL 07/05/2019 6:55 AM CDT [facility] ORDERS INTERFACE 07/05/2019 6:36 AM CDT Shy Cosme MD POCT ORDERABLES - DEVICE Final Result [facility] ORDERS INTERFACE US * POCT glucose (07/04/2019 9:25 PM CDT) GLUCOSE POC 102 70 - 110 mg/dL 07/05/2019 6:55 AM CDT [facility] ORDERS INTERFACE 07/04/2019 9:25 PM CDT us Shy Cosme MD POCT ORDERABLES - DEVICE Final Result [facility] ORDERS INTERFACE US * POCT glucose (07/04/2019 5:13 PM CDT) GLUCOSE POC 85 70 - 110 mg/dL 07/04/2019 6:18 PM CDT [facility] ORDERS INTERFACE 07/04/2019 5:13 PM CDT us Emiliano Hubbard MD POCT ORDERABLES - DEVICE Final Result [facility] ORDERS INTERFACE US * POCT glucose (07/04/2019 2:22 PM CDT) GLUCOSE POC 104 70 - 110 mg/dL 07/04/2019 3:00 PM CDT [facility] ORDERS INTERFACE 07/04/2019 2:22 PM CDT us Emiliano Hubbard MD POCT ORDERABLES - DEVICE Final Result [facility] ORDERS INTERFACE US * (ABNORMAL) POCT glucose (07/04/2019 12:38 PM CDT) GLUCOSE POC 58(L) 70 - 110 mg/dL 07/04/2019 3:00 PM CDT [facility] ORDERS INTERFACE 07/04/2019 12:3 8 PM CDT us Emiliano Hubbard MD POCT ORDERABLES - DEVICE Final Result [facility] ORDERS INTERFACE US * (ABNORMAL) COMPREHENSIVE METABOLIC PANEL (07/04/2019 7:14 AM CDT) GLUCOSE 76 70 - 99 MG/DL 07/04/2019 8:32 AM CDT [facility] BUN 24(H) 7 - 18 MG/DL 07/04/2019 8:32 AM CDT [facility] CREATININE S/P/B 0.87 0.55 - 1.02 MG/DL 07/04/2019 8:32 AM CDT [facility] SODIUM S/P/B 141 136 - 145 MMOL/L 07/04/2019 8:32 AM T [facility] POTASSIUM S/P/B 2.7(LL) 3.5 - 5.1 MMOL/L 07/04/2019 8:32 AM T [facility] Comment: CALLED CRITICAL R ESULTS AT 04Jul2019 TO AND READ BACK BY DONNA DUGAN CHLORIDE S/P/B 105 100 - 108 MMOL/L 07/04/2019 8:32 AM T [facility] CO2 23.2 21 - 32 MMOL/L 07/04/2019 8:32 AM T [facility] CALCIUM S/P/B 8.0(L) 8.5 - 10.1 MG/DL 07/04/2019 8:32 AM [facility] BILIRUBIN TOTAL S/P/B 0.4 0.2 - 1.2 MG/DL 07/04/2019 8:32 AM [facility] TOTAL PROTEIN S/P/B 5.7(L) 6.4 - 8.2 G/DL 07/04/2019 8:32 AM [facility] ALBUMIN S/P/B 2.6(L) 3.4 - 5.0 G/DL 07/04/2019 8:32 AM T [facility] AST 24 15 - 37 U/L 07/04/2019 8:32 AM T [facility] ALT 21 14 - 55 U/L 07/04/2019 8:32 AM T [facility] ALKALINE PHOSPHATASE S/P/B 59 50 - 136 U/L 07/04/2019 8:32 AM T [facility] ANION GAP 12.8 5 - 15 MMOL/L 07/04/2019 8:32 AM CDT [facility] BUN CREATININE RATIO 27.6(H) 6 - 26 07/04/2019 8:32 AM CDT [facility] A/G RATIO 0.8(L) 1.0 - 2.0 RATIO 07/04/2019 8:32 AM CDT [facility] EGFR NON-AFR. AMER. 62(L) >90 ML/MIN/1.7 3 M2 07/04/2019 8:32 AM CDT [facility] EGFR AFR. AMER. 71(L) >90 ML/MIN/1.7 3 M2 07/04/2019 8:32 AM CDT [facility] Comment: NOTE: eGFR is not calculated for patients <18 years of age. This is an estimated GFR (CKD EPI) and should not be used for calculating drug doses. 07/04/2019 7:14 AM CDT us Emiliano Hubbard MD LABORATORY Final Result [facility] [address] [place] [address], [place] [phone] * (ABNORMAL) CBC W/DIFF AUTOMATED (07/04/2019 7:14 AM CDT) WBC 3.8(L) 4.4 - 11.0 x10'3/uL 07/04/2019 8:07 AM CDT [facility] RBC 3.90(L) 4.50 - 5.10 x10'6/uL 07/04/2019 8:07 AM CDT [facility] HGB 11.3(L) 12.3 - 15.3 G/DL 07/04/2019 8:07 AM CDT [facility] HCT 34.6(L) 35.9 - 44.6 % 07/04/2019 8:07 AM CDT [facility] MCV 88.7 80.0 - 96.0 FL 07/04/2019 8:07 AM T [facility] MCH 29.0 25.3 - 30.9 PG 07/04/2019 8:07 AM T [facility] MCHC 32.7 31.0 - 34.1 G/DL 07/04/2019 8:07 AM T [facility] RDW 13.5 12.4 - 15.1 % 07/04/2019 8:07 AM T [facility] PLT 127(L) 151 - 353 x10'3/uL 07/04/2019 8:07 AM [facility] MPV 10.7 9.6 - 12.0 FL 07/04/2019 8:07 AM [facility] RBC MORPHOLOGY NORMAL 07/04/2019 8:07 AM [facility] PLT MORPH. NORMAL 07/04/2019 8:07 AM T [facility] WBC MORPHOLOGY NORMAL 07/04/2019 8:07 AM [facility] LYMPHOCYTES % 10.8(L) 15.8 - 45.0 % 07/04/2019 8:07 AM T [facility] NEUTROPHILS % 78.7(H) 42.1 - 71.9 % 07/04/2019 8:07 AM T [facility] MONOCYTES % 9.2 5.7 - 12.5 % 07/04/2019 8:07 AM T [facility] EOSINOPHILS 0.5 0.0 - 5.6 % 07/04/2019 8:07 AM [facility] BASOPHILS 0.5 0.0 - 1.3 % 07/04/2019 8:07 AM T [facility] ABS. NEUTROPHILS TOTAL 2.99 1.40 - 6.00 x10'3/uL 07/04/2019 8:07 AM CDT [facility] IMMATURE GRANS % 0.3 0.0 - 0.5 % 07/04/2019 8:07 AM CDT [facility] ABS. LYMPHOCYTES 0.41(L) 0.80 - 4.70 x10'3/uL 07/04/2019 8:07 AM CDT [facility] 07/04/2019 7:14 AM CDT Emiliano Hubbard MD LABORATORY Final Result [facility] [address] [place] [address], * XR CHEST PORTABLE (07/03/2019 3:00 PM CDT) Anatomical Region Laterality Modality Chest Radiographic Lacy ging 07/03/2019 3:01 PM CDT Impressions 07/03/2019 3:03 PM CDT IMPRESSION: 1. ??No evidence of acute cardiopulmonary disease. ? 2. ??No evidence of pleural effusion or pneumothorax. No CHF. Stable mild scattered interstitial fibrosis. Stable moderate elevation of the right hemidiaphragm. 3. ??Atherosclerotic aorta. Mild cardiomegaly. Degenerative change in thoracic spine. ? Interpreted By: Maren Granda, 07/03/2019 3:01 PM Narrative 07/03/2019 3:03 PM CDT IMAGING STUDIES: XR CHEST PORTABLE ? DATE: 07/03/2019 2:29 PM CLINICAL HISTORY: sepsis ?? . ? COMPARISON: 07/02/2019 Procedure Note Flip Granda MD - 07/03/2019 IMAGING STUDIES: XR CHEST PORTABLE DATE: 07/03/2019 2:29 PM CLINICAL HISTORY: sepsis . COMPARISON: 07/02/2019 IMPRESSION: 1. No evidence of acute cardiopulmonary disease. 2. No evidence of pleural effusion or pneumothorax. No CHF. Stable mild scattered interstitial fibrosis. Stable moderate elevation of the right hemidiaphragm. 3. Atherosclerotic aorta. Mild cardiomegaly. Degenerative change in thoracic spine. Interpreted By: Maren Granda, 07/03/2019 3:01 PM Rea Jenkins MD GENERAL IMAGING Final Result * CT ABD+PEL WO CON (07/03/2019 3:00 PM CDT) Anatomical Region Laterality Modality Abdomen Computed Tomogra phy 07/03/2019 3:03 PM CDT Impressions 07/03/2019 3:20 PM CDT IMPRESSION: 1. ??Routine CT of the abdomen and pelvis without contrast. Comparison 11/21/2017. Radiation dose reduction technique was utilized. 2. ??Exam is positive for mild mucosal thickening with very minor adjacent fatty infiltration in the distal descending colon. Adjacent diverticuli. Most likely mild diverticulitis versus focal colitis. Proximal colon with mild stool without obstruction. Very small amount of free fluid in the pelvis without abscess. No free air. 3. ??Numerous sigmoid diverticuli without inflammation. Hysterectomy. No adnexal lesions. No renal calculi or hydronephrosis. Cholecystectomy. ? 4. ??Mild fatty infiltration of the liver without mass. All other visualized noncontrast visceral structures are within normal limits.. Stable large duodenal diverticuli.. Stable soft tissue nodule which is most likely benign along the lateral mid right abdomen seen on image 59 of 162 and measuring 1.5 cm. May be scar. 5. ??No bowel obstruction. ??Atherosclerotic normal-sized aorta. ??No pathologic lymphadenopathy. ? 6. ??Lung bases with mild scar. No infiltrate or effusion. Moderately advanced atherosclerotic coronary calcifications.. Degenerative change in lumbar spine. Stable 80% compression deformity of L1 without significant retropulsion.. Osteopenia. Interpreted By: Maren Granda, 07/03/2019 3:03 PM Narrative 07/03/2019 3:20 PM CDT IMAGING STUDIES: CT ABD+PEL WO CON ?DATE: 07/03/2019 2:29 PM CLINICAL HISTORY: Abd pain, fever, abscess suspected ?? . Lower abdominal pain. History of diverticulitis. Procedure Note Flip Granda MD - 07/03/2019 IMAGING STUDIES: CT ABD+PEL WO CON DATE: 07/03/2019 2:29 PM CLINICAL HISTORY: Abd pain, fever, abscess suspected . Lower abdominal pain. History of diverticulitis. IMPRESSION: 1. Routine CT of the abdomen and pelvis without contrast. Comparison 11/21/2017. Radiation dose reduction technique was utilized. 2. Exam is positive for mild mucosal thickening with very minoradjacent fatty infiltration in the distal descending colon. Adjacent diverticuli. Most likely mild diverticulitis versus focal colitis. Proximal colonwith mild stool without obstruction. Very small amount of free fluid in the pelvis without abscess. No free air. 3. Numerous sigmoid diverticuli without inflammation. Hysterectomy. No adnexal lesions. No renal calculi or hydronephrosis. Cholecystectomy. 4. Mild fatty infiltration of the liver without mass. All othervisualized noncontrast visceral structures are within normal limits.. [...] effusion. Moderately advanced atherosclerotic coronary calcifications.. Degenerative changein lumbar spine. Stable 80% compression deformity of L1 without significant retropulsion.. Osteopenia. Interpreted By: Maren Granda, 07/03/2019 3:03 PM eRa Jenkins MD CT Final Result * ECG 12-Lead (07/03/2019 2:19 PM CDT) 07/03/2019 2:19 PM CDT Narrative [facility]) 07/03/2019 4:30 PM CDT ?[facility] ? Test Date: ?2019-07-03 Pat Name: ? AVIVA CH ?Department: ? Room: ? 123 Gender: ? Female ? Muff Winder: ?? RR : ?1935 ? Requested By: REA JENKINS Order Number: [id number] ? Reading MD: ?? Scott Cabello ? Measurements Intervals ?Cassel ? Rate: ? 81 ? P: ? SC: ? 0 ?QRS: ?26 QRSD: ? 145 ?T: ?-15 QT: ? 412 ? QTc: ?478 ? Interpretive Statements ATRIAL FIBRILLATION INDETERMINATE AXIS RIGHT BUNDLE BRANCH BLOCK ??[120+ ms QRS DURATION, UPRIGHT V1, 40+ ms S IN I/aVL/V4/V5/V6] Compared to ECG 07/02/2019 15:54:08 Indeterminate axis now present Right-axis deviation no longer present ST (T wave) deviation no longer present Procedure Note Scott Cabello MD - 07/03/2019 [facility] Test Date: 2019-07-03 Pat Name: AVIVA CH Department: Room: [facility] Gender: Female Muff Winder: : 1935 Requested By: REA JENKINS Order Number: [id number] Spencer MD: Scott Cabello Measurements Intervals Cassel Rate: 81 P: SC: 0 QRS: 26 QRSD: 145 T: -15 QT: 412 QTc: 478 Interpretive Statements ATRIAL FIBRILLATION INDETERMINATE AXIS RIGHT BUNDLE BRANCH BLOCK [120+ ms QRS DURATION, UPRIGHT V1, 40+ ms S IN I/aVL/V4/V5/V6] Compared to ECG 07/02/2019 15:54:08 Indeterminate axis now present Right-axis deviation no longer present ST (T wave) deviation no longer present us Rea Jenkins MD ECG ORDERABLES Final Result [facility] ([facility]) RAD * URINALYSIS MICRO ONLY (07/03/2019 2:02 PM CDT) WBC/HPF 10-25 0 - 5 /HPF 07/03/2019 2:28 PM CDT [facility] RBC/HPF 5-10 0 - 5 /HPF 07/03/2019 2:28 PM CDT [facility] EPI/HPF MODERATE /HPF 07/03/2019 2:28 PM CDT [facility] BACTERIA (U) FEW /HPF 07/03/2019 2:28 PM CDT [facility] 07/03/2019 2:02 PM CDT us Rea Jenkins MD URINE ORDERABLES Final Result Performing Organization Address [facility]/ZIP Co de Phone Number [facility] [id number] [place] [address], [place] [phone] * CULTURE URINE (07/03/2019 2:02 PM CDT) SPEC DESCRIPTION URINE CLEAN CATCH 07/03/2019 2:03 PM CDT [facility] SPECIAL REQUESTS NO SPECIAL REQUEST 07/03/2019 2:03 PM CDT [facility] CULTURE RESULT NO GROWTH 2 DAYS 07/05/2019 8:33 AM CDT [facility] URINE SPECIMEN OBTAINED BY CLEAN CATCH PROCEDURE / Unknown 07/03/2019 2:02 PM CDT 07/03/2019 2:08 PM CDT us Rea Jenkins MD MICROBIOLOGY - GENERAL ORDERA BLES Final Result [facility] [address] [place] [address], [place] [phone] [facility] [address] [place] [address], [place] [phone] * (ABNORMAL) URINALYSIS (07/03/2019 2:02 PM CDT) COLOR (U) YELLOW 07/03/2019 2:28 PM CDT [facility] TRANSPARENCY CLOUDY 07/03/2019 2:28 PM CDT [facility] SPECIFIC GRAVITY (U) 1.020 1.000 - 1.030 07/03/2019 2:28 PM CDT [facility] U PH 5.5 5.0 - 9.0 07/03/2019 2:28 PM CDT [facility] LEUKOCYTES (U) 2+(A) NEGATIVE 07/03/2019 2:28 PM CDT [facility] NITRITES NEGATIVE NEGATIVE 07/03/2019 2:28 PM CDT [facility] PROTEIN (U) TRACE(A) NEGATIVE 07/03/2019 2:28 PM CDT [facility] URINE GLUCOSE NEGATIVE NEGATIVE 07/03/2019 2:28 PM T [facility] KETONES MG/DL (U) TRACE(A) NEGATIVE 07/03/2019 2:28 PM CDT [facility] BILIRUBIN (U) NEGATIVE NEGATIVE 07/03/2019 2:28 PM T [facility] BLOOD (U) 2+(A) NEGATIVE 07/03/2019 2:28 PM T [facility] CULTURE & SENSITIVITY INDICATED? SPECIMEN SETUP FOR CULTURE 07/03/2019 2:28 PM T [facility] URINE SPECIMEN OBTAINED BY CLEAN CATCH PROCEDURE / Unknown 07/03/2019 2:02 PM CDT Rea Jenkins MD URINE ORDERABLES Final Result Performing Organization Address City/State/[facility] Co de Phone Number [facility] [address] [place] [address], [place] [phone] * CULTURE, BACTERIA, BLOOD (07/03/2019 1:45 PM CDT) Pathologist [facility] SPEC DESCRIPTION BLOOD 07/03/2019 1:56 PM CDT [facility] SPECIAL REQUESTS NO SPECIAL REQUEST 07/03/2019 1:56 PM CDT [facility] CULTURE RESULT NO GROWTH 5 DAYS 07/08/2019 8:36 AM CDT [facility] BLOOD SPECIMEN OBTAINED FOR BLOOD CULTURE / Unknown 07/03/2019 1:45 PM CDT 07/03/2019 1:59 PM CDT us Rea Jenkins MD MICROBIOLOGY - GENERAL ORDERA BLES Final Result Performing Organization Address [facility] Co de Phone Number [facility] [address] [place] [address], [place] [phone] [facility] [address] [place] [address], [place] [phone] * TROPONIN, QUANT (07/03/2019 1:42 PM CDT) Pathologist [facility] TROPONIN I <0.017 0.000 - 0.056 ng/mL. 07/03/2019 2:20 PM CDT [facility] Comment: NORMAL: LESS THAN OR EQUAL TO 0.056 NG/ML INDETERMINATE ZONE: 0.056 TO 0.599 NG/ML CONDITIONS RESULTING IN MYOCARDIAL CELL DAMAGE CAN POTENTIALLY INCREASE LEVELS ABOVE THE EXPECTED RANGE. HIGH DOSES OF BIOTIN MAY INTERFERE WITH THIS TEST RESULT. CORRELATION TO CLINICAL HISTORY AND PRESENTATION RECOMMENDED. 07/03/2019 1:42 PM CDT us Rea Jenkins MD LABORATORY Final Result [facility] [address] [place] [address], [place] [phone] * CULTURE, BACTERIA, BLOOD (07/03/2019 1:42 PM CDT) SPEC DESCRIPTION BLOOD 07/03/2019 1:56 PM CDT [facility] SPECIAL REQUESTS NO SPECIAL REQUEST 07/03/2019 1:56 PM CDT [facility] CULTURE RESULT NO GROWTH 5 DAYS 07/08/2019 8:36 AM CDT [facility] BLOOD SPECIMEN OBTAINED FOR BLOOD CULTURE / Unknown 07/03/2019 1:42 PM CDT 07/03/2019 1:59 PM CDT Rea Jenkins MD MICROBIOLOGY - GENERAL ORDERA BLES Final Result Performing Organization Address [facility] Co de Phone Number [facility] [address] [place] [address], [place] [phone] [facility] [address] [place] [address], [place] [phone] * (ABNORMAL) Comprehensive metabolic panel (07/03/2019 1:42 PM CDT) GLUCOSE 114(H) 70 - 99 MG/DL 07/03/2019 2:21 PM CDT [facility] BUN 31(H) 7 - 18 MG/DL 07/03/2019 2:21 PM CDT [facility] CREATININE S/P/B 1.39(H) 0.55 - 1.02 MG/DL 07/03/2019 2:21 PM CDT [facility] SODIUM S/P/B 136 136 - 145 MMOL/L 07/03/2019 2:21 PM CDT [facility] POTASSIUM S/P/B 3.1(L) 3.5 - 5.1 MMOL/L 07/03/2019 2:21 PM [facility] CHLORIDE S/P/B 98(L) 100 - 108 MMOL/L 07/03/2019 2:21 PM [facility] CO2 24.8 21 - 32 MMOL/L 07/03/2019 2:21 PM [facility] CALCIUM S/P/B 9.4 8.5 - 10.1 MG/DL 07/03/2019 2:21 PM [facility] BILIRUBIN TOTAL S/P/B 0.7 0.2 - 1.2 MG/DL 07/03/2019 2:21 PM [facility] TOTAL PROTEIN S/P/B 7.5 6.4 - 8.2 G/DL 07/03/2019 2:21 PM [facility] ALBUMIN S/P/B 3.6 3.4 - 5.0 G/DL 07/03/2019 2:21 PM [facility] AST 24 15 - 37 U/L 07/03/2019 2:21 PM [facility] ALT 30 14 - 55 U/L 07/03/2019 2:21 PM [facility] ALKALINE PHOSPHATASE S/P/B 83 50 - 136 U/L 07/03/2019 2:21 PM [facility] ANION GAP 13.2 5 - 15 MMOL/L 07/03/2019 2:21 PM [facility] BUN CREATININE RATIO 22.3 6 - 26 07/03/2019 2:21 PM [facility] A/G RATIO 0.9(L) 1.0 - 2.0 RATIO 07/03/2019 2:21 PM [facility] EGFR NON-AFR. AMER. 35(L) >90 ML/MIN/1.7 3 M2 07/03/2019 2:21 PM CDT [facility] EGFR AFR. AMER. 41(L) >90 ML/MIN/1.7 3 M2 07/03/2019 2:21 PM CDT [facility] Comment: NOTE: eGFR is not calculated for patients <18 years of age. This is an estimated GFR (CKD EPI) and should not be used for calculating drug doses. 07/03/2019 1:42 PM CDT us Rea Jenkins MD LABORATORY Final Result Performing Organization Address City/[facility]/ZIP Co de Phone Number [facility] [address] [place] [address], [place] [phone] * LACTIC ACID (07/03/2019 1:42 PM CDT) LACTIC ACID VENOUS 1.8 0.4 - 2.0 MMOL/L 07/03/2019 2:17 PM CDT [facility] 07/03/2019 1:42 PM CDT us Rea Jenkins MD LABORATORY Final Result Performing Organization Address City/[facility]/ZIP Co de Phone Number [facility] [address] [place] [address], [place] [phone] * (ABNORMAL) CBC W/DIFF AUTOMATED (07/03/2019 1:42 PM CDT) WBC 6.9 4.4 - 11.0 x10'3/uL 07/03/2019 2:09 PM CDT [facility] RBC 4.69 4.50 - 5.10 x10'6/uL 07/03/2019 2:09 PM CDT [facility] HGB 13.5 12.3 - 15.3 G/DL 07/03/2019 2:09 PM CDT [facility] HCT 40.7 35.9 - 44.6 % 07/03/2019 2:09 PM CDT [facility] MCV 86.8 80.0 - 96.0 FL 07/03/2019 2:09 PM CDT [facility] MCH 28.8 25.3 - 30.9 PG 07/03/2019 2:09 PM CDT [facility] MCHC 33.2 31.0 - 34.1 G/DL 07/03/2019 2:09 PM T [facility] RDW 13.5 12.4 - 15.1 % 07/03/2019 2:09 PM T [facility] PLT 165 151 - 353 x10'3/uL 07/03/2019 2:09 PM T [facility] MPV 10.5 9.6 - 12.0 FL 07/03/2019 2:09 PM [facility] SEG NEUTROPHILS 90(H) 42 - 72 % 0 2:31 PM T [facility] BANDS 2 % 07/03/2019 2:31 PM T [facility] LYMPHOCYTES 3(L) 15.8 - 45.0 % 07/03/2019 2:31 PM T [facility] MONOCYTES 5(L) 5.7 - 12.5 % 07/03/2019 2:31 PM T [facility] ABS. NEUTROPHILS TOTAL 6.35(H) 1.40 - 6.00 x10'3/uL 07/03/2019 2:31 PM T [facility] ABS. LYMPHOCYTES 0.21(L) 0.80 - 4.70 x10'3/uL 07/03/2019 2:31 PM T [facility] PLT MORPH. NORMAL 07/03/2019 2:31 PM CDT [facility] RBC MORPHOLOGY NORMAL 07/03/2019 2:31 PM CDT [facility] WBC MORPHOLOGY NORMAL 07/03/2019 2:31 PM CDT [facility] 07/03/2019 1:42 PM CDT Rea Jenkins MD LABORATORY Final Result [facility] [address] [place] [address], [place] [phone] documented in this encounter Visit Diagnoses Diagnosis Bacteremia- Primary Sepsis, due to unspecified organism, unspecified whether acute organ dysfunction present ([facility]) Bacteremia Urinary tract infection with hematuria, site unspecified documented in this encounter Admitting Diagnoses Diagnosis Bacteremia documented in this encounter Administered Medications Inactive Administered Medications - up to 3 most recent administrations Medication Order MAR Action Action Date Dose Rate Site acetaminophen (TYLENOL) tablet 650 mg 650 mg, Oral, Every 4 hours PRN, Mild pain (Scale 1 - 3), Starting on Wed07/03/19 at 1639, Until Veronica 07/06/19 at 1552, Maximum dose of acetaminophen is 4000 mg from all sources in 24 hours. ceFAZolin (ANCEF) 2 g in sterile water 20 mL IV 2 g, Intravenous, at 240 mL/hr, Every 8 hours, First dose on Veronica 07/06/19 at 0900, Until Discontinued Given 07/06/2019 10:24 AM CDT 2 g 240 mL/hr cefTRIAXone (ROCEPHIN) 1 g in sterile water 10 mL IV 1 g, Intravenous, at 120 mL/hr, Once, 1 dose, On Wed07/03/19 at 1400 Given 07/03/2019 2:29 PM CDT 1 g 120 mL/hr cefTRIAXone (ROCEPHIN) 2 g in sterile water 20 mL IV 2 g, Intravenous, at 240 mL/hr, Every 24 hours, First dose on Wed07/04/19 at 0900, Until Discontinued Given 07/05/2019 9:29 AM CDT 2 g 240 mL/hr Given 07/04/2019 10:05 AM CDT 2 g 240 mL/hr famotidine (PEPCID) injection 20 mg 20 mg, Intravenous, Daily, First dose on Wed07/03/19 at 1645, Until Discontinued, Give if unable to take PO. IV Push over 2 minutes famotidine (PEPCID) tablet 20 mg 20 mg, Oral, Daily, First dose on Wed07/03/19 at 1645, Until Discontinued Given 07/06/2019 8:16 AM CDT 20 mg Given 07/05/2019 8:24 AM CDT 20 mg Given 07/04/2019 8:10 AM CDT 20 mg heparin (porcine) injection 5,000 Units 5,000 Units, Subcutaneous, Every 12 hours scheduled (2 times per day), First dose on Wed07/03/19 at 2100, Until Discontinued Given 07/06/2019 8:16 AM CDT 5,000 Units Left Lower Abdomen Given 07/05/2019 9:12 PM CDT 5,000 Units L eft Lower Abdomen Given 07/05/2019 8:24 AM CDT 5,000 Units L eft Lower Abdomen insulin lispro (HUMALOG) injection 0-14 Units 0-14 Units, Subcutaneous, 3 times daily before meals, First dose on Wed07/04/19 at 1130, Until Discontinued, Blood Glucose (SENSITIVE Dosing): [Less than 70:? Initiate Hypoglycemia Standing Orders] [71-140: 0 units] [141-180: 2 units] [181-220: 4 units] [221-260: 6 units] [261-300: 8 units] [301-350: 10 units] [351-400: 12 units] [Greater than 400: 14 units and Call Physician] insulin lispro (HUMALOG) injection 0-7 Units 0-7 Units, Subcutaneous, Nightly at bedtime, First dose on Wed07/04/19 at 2100, Until Discontinued, Blood Glucose (SENSITIVE Dosing): [Less than 70:? Initiate Hypoglycemia Standing Orders] [71-180: ? 0 units] [181-220:? 2 units] [221-260:? 3 units] [261-300:? 4 units] [301-350:? 5 units] [351-400:? 6 units] [Greater than 400:? 7 units and Call Physician] [id number]-jdnkvsmmdje (MYLANTA MAXIMUM STRENGTH) 1430-0822-212 mg/30mL suspension 10 mL, Oral, Every 4 hours PRN, Indigestion, Heartburn, Starting on Wed07/03/19 at 1639, Until Wed07/06/19 at 1552, Shake Well Given 07/05/2019 2:13 AM CDT 10 mLs melatonin tablet 3 mg 3 mg, Oral, Nightly at bedtime, First dose on Wed07/03/19 at 2100, Until Discontinued Given 07/05/2019 9:13 PM CDT 3 mg Given 07/04/2019 9:27 PM CDT 3 mg Given 07/03/2019 8:04 PM CDT 3 mg metroNIDAZOLE (FLAGYL) IVPB 500 mg 500 mg, Intravenous, at 100 mL/hr, Once, 1 dose, On Wed07/03/19 at 1600 New 07/03/2019 3:57 PM CDT 500 mg 100 mL/hr metroNIDAZOLE (FLAGYL) IVPB 500 mg 500 mg, Intravenous, at 100 mL/hr, Every 8 hours, First dose on Wed07/04/19 at 0000, Until Discontinued New Bag 07/06/2019 8:16 AM CDT 500 m g 100 mL/hr New 07/05/2019 11:46 PM CDT 500 mg 100 mL/hr New 07/05/2019 4:52 PM CDT 500 mg 100 mL/hr ondansetron (ZOFRAN) injection 4 mg 4 mg, Intravenous, Every 8 hours PRN, Nausea, Vomiting, Starting on Wed07/03/19 at 1639, Until Veronica 07/06/19 at 1552, IV push over 2-5 minutes. potassium chloride 10 mEq in SW 100 mL IVPB 10 mEq, Intravenous, Administer over 60 Minutes, Every hour scheduled, 4 doses, First dose on Wed07/04/19 at 1200, Last dose on Wed07/04/19 at 1500, TOTAL DOSE 40 MEQ MAX rate in peripheral line of 10 mEq per hour. New 07/04/2019 7:29 PM CDT 10 mEq 100 mL/hr New 07/04/2019 5:09 PM CDT 10 mEq 100 mL/hr New 07/04/2019 2:18 PM CDT 10 mEq 100 mL/hr potassium chloride CR (KLOR-CON M) tablet 40 mEq 40 mEq, Oral, Once, 1 dose, On Wed07/04/19 at 1130, Do not chew, crush, or suck on tablet. May break in half. May dissolve whole tablet in 120 mL of water and drink immediately. Given 07/04/2019 12:31 PM CDT 40 mEq Senna (SENOKOT) 8.6 MG tablet 8.6 mg 8.6 mg, Oral, Daily as needed, Constipation, Starting on Wed07/03/19 at 1639, Until Wed07/06/19 at 1552, If both senna and polyethylene glycol are ordered, use as 2nd choice. sodium chloride 0.9% bolus infusion SOLN 1,000 mL 1,000 mL, Intravenous, Administer over 30 Minutes, Once, 1 dose, On Wed07/03/19 at 1400, RN to infuse total volume of 1769 mL (30 ml/kg in Actual Body Weight) including prior to arrival and / or prediagnosis fluids. New Bag 07/03/2019 2:14 PM CDT 1,000 mLs sodium chloride 0.9% infusion at 75 mL/hr, Intravenous, Continuous, Starting on Wed07/03/19 at 1700, Until Wed07/05/19 at 1908 New Bag 07/05/2019 4:19 AM CDT 75 mL/hr New Bag 07/04/2019 10:05 AM CDT 75 mL/hr New Bag 07/03/2019 5:20 PM CDT 75 mL/hr documented in this encounter Active and Recently Administered Medications Times are shown in CDT. Scheduled Medication Order 07/04/2019 07/05/2019 07/06/2019 ceFAZolin (ANCEF) 2 g in sterile water 20 mL IV 2 g, Intravenous, at 240 mL/hr, Every 8 hours, First dose on Wed07/06/19 at 0900, Until Discontinued 1024 (Given - Provider: Martine Ye RN) cefTRIAXone (ROCEPHIN) 2 g in sterile water 20 mL IV (CANCELED) 2 g, Intravenous, at 240 mL/hr, Every 24 hours, First dose on Wed07/04/19 at 0900, Until Discontinued 1005 (Given - Provider: Donna Chaves RN) 0929 (Given - Provider: Laila Lujan RN) famotidine (PEPCID) injection 20 mg(Linked Group 1) 20 mg, Intravenous, Daily, First dose on Wed07/03/19 at 1645, Until Discontinued, Give if unable to take PO. IV Push over 2 minutes 0810 (See Alternative - Provider: Donna Chaves RN) 0824 (See Alternative - Provider: Laila Lujan RN) 0816 (See Alternative - Provider: Martine Ye, KAILEE) famotidine (PEPCID) tablet 20 mg(Linked Group 1) 20 mg, Oral, Daily, First dose on Wed07/03/19 at 1645, Until Discontinued 0810 (Given - Provider: Donna Chaves RN) 0824 (Given - Provider: Laila Lujan RN) 0816 (Given - Provider: Martine Ye RN) heparin (porcine) injection 5,000 Units(Linked Group 2) 5,000 Units, Subcutaneous, Every 12 hours scheduled (2 times per day), First dose on Wed07/03/19 at 2100, Until Discontinued 809 (Given - Provider: Donna Chaves RN)2126 (Given - Provider: Dagmar Gonzalez RN) 823 (Given - Provider: Laila Lujan, KAILEE)2111 (Given - Provider: Tiki Peralta RN) 16 (Given - Provider: Martine Ye, KAILEE) insulin lispro (HUMALOG) injection 0-14 Units(Linked Group 3) 0-14 Units, Subcutaneous, 3 times daily before meals, First dose on Wed07/04/19 at 1130, Until Discontinued, Blood Glucose (SENSITIVE Dosing): [Less than 70:? Initiate Hypoglycemia Standing Orders] [71-140: 0 units] [141-180: 2 units] [181-220: 4 units] [221-260: 6 units] [261-300: 8 units] [301-350: 10 units] [351-400: 12 units] [Greater than 400: 14 units and Call Physician] 1242 (Not Given - Provider: Donna Chaves RN - Reason: Order parameters not met)1720 (Not Given - Provider: Donna Chaves RN - Reason: Order parameters not met) 0644 (Not Given - Provider: Dagmar Gonzalez RN - Reason: Order parameters not met)1159 (Not Given - Provider: Laila Lujan RN - Reason: Order parameters not met)1656 (Not Given - Provider: Laila Lujan RN - Reason: Order parameters not met) 0740 (Not Given - Provider: Martine Ye RN - Reason: Order parameters not met - Comment: Patient's glucose is 89 and does not meet parameters for insulin)1253 (Not Given - Provider: Martine Ye RN - Reason: Order parameters not met - Comment: Blood glucose only 124. Order parameters not met.) insulin lispro (HUMALOG) injection 0-7 Units(Linked Group 3) 0-7 Units, Subcutaneous, Nightly at bedtime, First dose on Wed07/04/19 at 2100, Until Discontinued, Blood Glucose (SENSITIVE Dosing): [Less than 70:? Initiate Hypoglycemia Standing Orders] [71-180: ? 0 units] [181-220:? 2 units] [221-260:? 3 units] [261-300:? 4 units] [301-350:? 5 units] [351-400:? 6 units] [Greater than 400:? 7 units and Call Physician] 2125 (Not Given - Provider: Dagmar Gonzalez RN - Reason: Order parameters not met) 2112 (Not Given - Provider: Tiki Peralta RN - Reason: Order parameters not met) melatonin tablet 3 mg 3 mg, Oral, Nightly at bedtime, First dose on Wed07/03/19 at 2100, Until Discontinued 2126 (Given - Provider: Dagmar Gonzalez RN) 2112 (Given - Provider: Tiki Peralta, KAILEE) metroNIDAZOLE (FLAGYL) IVPB 500 mg (CANCELED) 500 mg, Intravenous, at 100 mL/hr, Every 8 hours, First dose on Wed07/04/19 at 0000, Until Discontinued 35 (Infusion Stop Time - Provider: Nuzhat Russell RN)0808 (New Bag - Provider: Donna Chaves RN)1006 (Infusion Stop Time - Provider: Donna Chaves RN)1559 (New Bag - Provider: Donna Chaves RN)1708 (Infusion Stop Time - Provider: Donna Chaves RN)2336 (New Bag - Provider: Dagmar Gonzalez RN) 0114 (Infusion Stop Time - Provider: Dagmar Gonzalez RN)0822 (New Bag - Provider: Laila Lujan, RN)0930 (Infusion Stop Time - Provider: Laila Lujan, RN)1652 (New Bag - Provider: Laila Lujan, RN)1759 (Infusion Stop Time - Provider: Laila Lujan, RN)2346 (New Bag - Provider: Tiki Peralta, RN) 0046 (Infusion Stop Time - Provider: Tiki Peralta, RN)0816 (New Bag - Provider: Martine Ye, RN)0920 (Infusion Stop Time - Provider: Martine Ye RN) potassium chloride 10 mEq in SW 100 mL IVPB (COMPLETED) 10 mEq, Intravenous, Administer over 60 Minutes, Every hour scheduled, 4 doses, First dose on Wed07/04/19 at 1200, Last dose on Wed07/04/19 at 1500, TOTAL DOSE 40 MEQ MAX rate in peripheral line of 10 mEq per hour. 1231 (New Bag - Provider: Donna Chaves RN)1300 (Infusion Stop Time - Provider: Donna Chaves RN)1418 (New Bag - Provider: Donna Chaves RN)1601 (Infusion Stop Time - Provider: Donna Chaves RN)1709 (New Bag - Provider: Donna Chaves RN)1926 (Infusion Stop Time - Provider: Donna Chaves RN)1929 (New Bag - Provider: Donna Chaves RN - Comment: unable to scan)2135 (Infusion Stop Time - Provider: Dagmar Gonzalez RN) potassium chloride CR (KLOR-CON M) tablet 40 mEq (COMPLETED) 40 mEq, Oral, Once, 1 dose, On Wed07/04/19 at 1130, Do not chew, crush, or suck on tablet. May break in half. May dissolve whole tablet in 120 mL of water and drink immediately. 1231 (Given - Provider: Donna Chaves RN) Continuous Medication Order 07/04/2019 07/05/201907/06/2019 sodium chloride 0.9% infusion (CANCELED) at 75 mL/hr, Intravenous, Continuous, Starting on Wed07/03/19 at 1700, Until Wed07/05/19 at 1908 1005 (New Bag - Provider: Donna Chaves, RN) 0419 (New Bag - Provider: Dagmar Gonzalez RN) PRN Medication Order 07/04/2019 07/05/2019 07/06/2019 acetaminophen (TYLENOL) tablet 650 mg 650 mg, Oral, Every 4 hours PRN, Mild pain (Scale 1 - 3), Starting on Wed07/03/19 at 1639, Until Veronica 07/06/19 at 1552, Maximum dose of acetaminophen is 4000 mg from all sources in 24 hours. pggnhgxgu-qxhyqtqc-jjagyvcdctc (MYLANTA MAXIMUM STRENGTH) 4029-2603-972 mg/30mL suspension 10 mL, Oral, Every 4 hours PRN, Indigestion, Heartburn, Starting on Wed07/03/19 at 1639, Until Veronica 07/06/19 at 1552, Shake Well 0213 (Given - Provider: Nany Gonzalez RN) ondansetron (ZOFRAN) injection 4 mg 4 mg, Intravenous, Every 8 hours PRN, Nausea, Vomiting, Starting on Wed07/03/19 at 1639, Until Veronica 07/06/19 at 1552, IV push over 2-5 minutes. Senna (SENOKOT) 8.6 MG tablet 8.6 mg 8.6 mg, Oral, Daily as needed, Constipation, Starting on Wed07/03/19 at 1639, Until Veronica 07/06/19 at 1552, If both senna and polyethylene glycol are ordered, use as 2nd choice. Linked Groups Order Group 1: famotidine (PEPCID) injection 20 mgJump to med 20 mg, Intravenous, Daily, First dose on Wed07/03/19 at 1645, Until Discontinued, Give if unable to take PO. IV Push over 2 minutes Or famotidine (PEPCID) tablet 20 mgJump to med 20 mg, Oral, Daily, First dose on Wed07/03/19 at 1645, Until Discontinued Group 2: heparin (porcine) injection 5,000 UnitsJump to med 5,000 Units, Subcutaneous, Every 12 hours scheduled (2 times per day), First dose on Wed07/03/19 at 2100, Until Discontinued And Place sequential compression device (COMPLETED) Routine, Once, On Wed07/03/19 at 1637, For 1 occurrence And Intermittent Pneumatic Compression Device Applied (COMPLETED) And Assess Sequential Compression Device (Assess skin at a minimum of every shift) (CANCELED) Routine, Every shift, First occurrence on Wed07/03/19 at 1637 And Maintain Sequential Compression Device (CANCELED) Routine, Daily, First occurrence on Wed07/04/19 at 0600 And High Risk for VTE (COMPLETED) Group 3: insulin lispro (HUMALOG) injection 0-14 UnitsJump to med 0-14 Units, Subcutaneous, 3 times daily before meals, First dose on Wed07/04/19 at 1130, Until Discontinued, Blood Glucose (SENSITIVE Dosing): [Less than 70:? Initiate Hypoglycemia Standing Orders] [71-140: 0 units] [141-180: 2 units] [181-220: 4 units] [221-260: 6 units] [261-300: 8 units] [301-350: 10 units] [351-400: 12 units] [Greater than 400: 14 units and Call Physician] And insulin lispro (HUMALOG) injection 0-7 UnitsJump to med 0-7 Units, Subcutaneous, Nightly at bedtime, First dose on Wed07/04/19 at 2100, Until Discontinued, Blood Glucose (SENSITIVE Dosing): [Less than 70:? Initiate Hypoglycemia Standing Orders] [71-180: ? 0 units] [181-220:? 2 units] [221-260:? 3 units] [261-300:? 4 units] [301-350:? 5 units] [351- 400:? 6 units] [Greater than 400:? 7 units and Call Physician] documented in this encounter Care Teams Log Deck Tender Relationship Specialty Start Date End Date Elaina Jade MD [address] [address] PCP - General INTERNAL MEDICINE 5/21/19 11/29/23 Joni Mckeon MD [facility]. [address] [address] [place] [employer]afety [employer] Manager CARDIOVASCULAR DISEASE 07/04/18 documented as of this encounter
--- OUTSIDE RECORDS SUMMARY | 2024-04-05 00:21 | XMS_ITS | Encounter Summary ---
Author Organization [facility] Address [address] [place] [address]. [place], [place] [id number] [place] [id number] Care Team Providers Care Pole Maker Name Role Phone Joni Mckeon MD Unavailable [phone] Elaina Jade MD Primary Care Provider [phone] Reason for Referral * Imaging (Urgent) - Closed Specialty Diagnoses / Procedures Referred By Contac t Referred To Contact RADIOLOGY Procedures USE ECHOCARDIOGRAM [place] [address] Phone: tel: [phone] fax: Referral ID Status Reason Start Date Expiration Date Visits Re quested Visits Authorized [id number] Closed 07/15/2019 08/13/2020 1 1 * (Routine) - Canceled Specialty Diagnoses / Procedures Referred By Contac t Referred To Contact Procedures OT Eval and Treat [facility] [address] [place] [address] Phone: tel: Referral ID Status Reason Start Date Expiration Date V isits Requested Visits Authorized [id number] Canceled 07/07/2019 08/05/2020 1 1 * (Routine) - Canceled Specialty Diagnoses / Procedures Referred By Contac t Referred To Contact Procedures PT eval [place] [address] Phone: tel:[phone] fax: Referral ID Status Reason Start Date Expiration Date V isits Requested Visits Authorized [id number] Canceled 07/06/2019 08/04/2020 1 1 Reason for Visit * Auth/Cert Specialty Diagnoses / Procedures Referred By Contac t Referred To Contact Diagnoses UTI (urinary tract infection) Physical deconditioning Referral ID Status Reason Start Date Expiration Date Visits Re quested Visits Authorized [id number] 1 1 Encounter Details Date Type Department Care Team (Late st Contact Info) Description 07/06/2019 3:52 PM CDT - 07/18/2019 1:00 PM CDT Hospital Encounter [facility] Med[facility]Surg [address] [place] [address] Shy Cosme MD [address] [facility] [address] [address] [place] [address] [place] [address] [phone] (Work) [place] [address] [phone] (Work) Ludy Coon, [employer]ANT [address] [place] [id number] Discharge Disposition: Home with Home Health Care [...] Sign Reading Time Taken Comments Blood Pressure 111/54 07/18/2019 8:35 AM CDT Pulse 63 07/18/2019 8:35 AM CDT Temperature 36.2 ??C (97.2 ??F) 07/18/2019 8:35 AM CD T Respiratory Rate 18 07/18/2019 8:35 AM CDT Oxygen Saturation 95% 07/18/2019 8:35 AM CDT Inhaled Oxygen Concentration - - Weight 59.2 kg (130 lb 8.2 oz) 07/18/2019 3:28 A M CDT Height 162.6 cm (5' 4 ) 07/06/2019 4:45 PM CDT Body Mass Index 22.4 07/06/2019 4:45 PM CDT documented in this encounter Functional Status * Question Answer Date of Assessment Author Status Do you have serious difficulty walking or climbing stairs? Yes 07/18/2019 11:38 AM CDT Leticia Gorve RN Acti ve Do you have difficulty [...] documented in this encounter Discharge Summaries * Norma Ernst Chao, OT - 07/18/2019 1:00 PM CDT 07/18/19 07 Therapy Visit OT Received On 07/18/19 Reason for admission Patient arrived to the ED on 07/01 with weakness, went home, and returned on 07/02 with positive urine cultures. She was found to have Bacteremia and admitted to acute care, transitioned to [facility] bed for rehab. 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 reports she feels she is ready to go home today. Doesn't feel like she will need to get a sock-aid for home. Pain Pain Patient does not offer or c/o pain Activity Tolerance Activity Tolerance Comments Good endurance w/ ADL's, transfers, and mobility. Cognition Overall Cognitive Status WFL Other (Comment) Pt. is LOWER BRULE ADL Grooming Assistance Independent;Stand by;Sitting in chair;Standing at sink Grooming Deficit Setup;Supervision/safety Grooming Comment Washes face indep after set-up while seated at sink. Stands at sink w/ SBA/independence and good balance to comb hair. Bathing Assistance Stand by;Alternating sit/stand Bathing Deficit Setup;Supervision/safety Bathing Comment Completed sponge bath seated on armless shower chair at bathroom sink. SBA w/ UB and LB bathing (up until feet), declines bathing feet. Stands w/ 4ww and completes front/rear emerson-care w/ SBA and good balance/safety. UE Dressing Assistance Independent;Sitting in chair UE Dressing Deficit Setup;Supervision/safety UE Dressing Comment To don bra and pullover long-sleeve shirt LE Dressing Assistance Stand by;Alternating sit/stand LE Dressing Deficit Setup;Supervision/safety LE Dressing Comment Threads personal underwear and jeans over feet w/ SBA while seated on chair. Pulls clothing up over hips w/ SBA while standing w/ 4ww. Good balance/safety throughout. Declines changing socks. Toileting Assistance Modified independent Toileting Deficit Grab bar use Toileting Comment Completes all toileting aspects w/ mod independence. Bed Mobility Supine to Sit SBA/supervision Functional Transfers Sit to Stand SBA/supervision;Modified independence;Other (from EOB ) Toilet Transfers Modified Independent (from standard toilet ) Functional Mobility SBA mob w/ 4ww to/from bathrom. Other (Comment) SBA w/ sit/stand and stand/sit onto armless shower chair at sink. Needs vc's for use of 4ww brakes w/ transfers. Balance Sitting - Static Independent Sitting - Dynamic Independent Standing - Static Independent;SBA Standing - Dynamic SBA;Support of one upper extremity;Support of both upper extremities Patient/Family Training Self Cares tech's to promote increased indep/safety; uses for risk and insurance consultant at home to ease demands of tasks Transfer Training 4ww brake use OT Assessment OT Assessment Aviva has made good progress towards all OT goals. Demo's improvements w/ LB dressing d/t increased distal reach. Pt. not receptive to using sock-aid at home, feels she will be able to manage socks without difficulty. Alex's good balance/endurance w/ ADL routine, mobility, and trans fers. Recommend continued OT services on Care level to continue to work towards maximizing indep/safety level. Modified Luz Maria Score Interval Discharge Score 0-6 2 Slight disability, unable to carry out all previous activities, but able to look after own affairs without assistance Recommendation OT Equipment Recommended Currently has DME in Place Plan Progress Progressing toward goals OT plan for next session Planned d/c today w/ HH If this is the last treatment note, it will serve as the discharge summary Yes End of Session Safety End of Session Safety Call light within reach;Chair alarm set/activated * Ludy Coon NP - 07/18/2019 11:04 AM CDT Hospitalist Discharge Summary Patient ID: Aviva Ch. female. 1935. Admit date: 07/06/2019 3:52 PM Discharge date and time: 07/18/19 Admitting Physician: Shy Cosme MD Primary Care Physician: ELAINA JADE MD Discharge Physician: LUDY COON NP Discharge Diagnosis: deconditioning Hospital Course: This is a 83-year-old female with a history of CHD, HTN, dyslipidemia, hypothyroidism, GERD, and dementia presented to the ED on 07/02/2019 with a fever complaining of weakness and difficulty urinating. Blood and urine cultures were performed and the patient received Rocephin IV. The patient was discharged home on oral antibiotics. The next day blood cultures were gram-negative rods the patient was contacted to come back to the ED for expected admission. Cultures grew out E. coli in urine and blood. Patient was initiated Rocephin responded to therapy. The patient had evaluation by PT was notedto have acute weakness and the recommendations were for the patient to receive physical therapy. The patient agreed she was transferred into the almost home program. Patient worked with both PT/OT and met therapy goals. She had an episode of chest pain during admission, self resolving, workup unrevealing. By 07/17 patient was hemodynamically stable for discharge and had met her therapy goals. She was discharge home with [facility]. She is to follow up with her PCP in 1 week. Consults: Discharge Exam: Filed Vitals: 07/17/19 0300 07/17/19 0719 07/18/19 0328 07/18/19 0835 BP: (!) 151/61 111/54 Pulse: 58 63 Resp: 18 18 Temp: 97.3 ??F (36.3 ??C) 97.2 ??F (36.2 ??C) TempSrc: Tympanic Tympanic SpO2: 95% 95% Weight: 59.7 kg (131 lb 9.8 oz) 59.2 kg (130 lb 8.2 oz) Height: Physical Exam: General: No acute distress, speaking in full sentences, no use of accessory muscles HEENT: Oropharynx is clear Neck: Supple, no lymphadenopathy, no JVD Lungs: Clear to auscultation bilaterally Cardiovascular: Regular rate and rhythm with normal S1 and S2 Abdomen: Soft, nontender, nondistended, normoactive bowel sounds Extremities: No cyanosis clubbing or edema Neuro: Nonfocal, A&O x3 Psych: Normal affect Code Status: Full Code Discharge Medications: Medication List START taking these medications furosemide 20 MG tablet Commonly known as: LASIX Take 1 tablet (20 mg total) by mouth daily. Start taking on: July 19, 2019 potassium chloride CR 10 MEQ tablet Commonly known as: KLOR-CON M Take 1 tablet (10 mEq total) by mouth daily with breakfast. Start taking on: July 19, 2019 CHANGE how you take these medications benazepril 20 MG tablet Commonly known as: LOTENSIN TAKE 1 TABLET BY MOUTH EVERY DAY What changed: how much to take pravastatin 40 MG tablet Commonly known as: PRAVACHOL TAKE 1 TABLET BY MOUTH AT BEDTIME What changed: additional instructions raNITIdine 300 MG tablet Commonly known as: ZANTAC TAKE 1 TABLET BY MOUTH EVERY NIGHT AT BEDTIME What changed: additional instructions CONTINUE taking these medications amLODIPine 5 MG tablet Commonly known as: NORVASC TAKE 1 TABLET BY MOUTH DAILY aspirin EC 81 MG tablet Commonly known as: ECOTRIN donepezil 10 MG Tabs Commonly known as: ARICEPT hydroCHLOROthiazide 25 MG tablet Commonly known as: HYDRODIURIL Take 1 tablet (25 mg total) by mouth every morning. levothyroxine 50 MCG tablet Commonly known as: SYNTHROID sertraline 100 MG tablet Commonly known as: ZOLOFT traZODone 50 MG tablet Commonly known as: DESYREL Vitamin D 50 MCG (1999 [place]) Caps STOP taking these medications cephALEXin 500 MG capsule Commonly known as: Keflex Where to Get Your Medications These medications were sent to [id number] - [place], [place] - [address] [facility] [address] [facility] [id number] ?? furosemide 20 MG tablet ?? potassium chloride CR 10 MEQ tablet IMAGING: Ct Abd+pel Wo Con ?? Result Date: 07/03/2019 IMAGING STUDIES: CT ABD+PEL WO CON [...] liver without mass. All other visualized noncontrast vis ceral structures are within normal limits.. Stable large [...] Degenerative change in lumbar spine. Stable 80% compressiondeformity of L1 without significant retropulsion.. Osteopenia. Interpreted By: Maren Granda, 07/03/2019 3:03 PM ?? Xr Chest Portable ?? Result Date: 07/03/2019 IMAGING STUDIES: XR CHEST PORTABLE DATE: 07/03/2019 2:29 PM CLINICAL HISTORY: sepsis . COMPARISON: 07/02/2019 ?? IMPRESSION: 1. No evidence of acute cardiopulmonary disease. 2. No evidence of pleural effusion or pneumothorax. No CHF. Stable mild scattered interstitial fibrosis. Stable moderate elevation of the right hemidiaphragm. 3. Atherosclerotic aorta. Mild cardiomegaly. Degenerative change in thoracic spine. Interpreted By: Maren Granda, 07/03/2019 3:01 PM ?? Xr Chest Portable ?? Result Date: 07/02/2019 EXAM: XR CHEST PORTABLE AT 1620 HOURS DATE: 07/02/2019 HISTORY: dyspnea COMPARISON: 07/06/2018 FINDINGS: The right hemidiaphragm remains elevated. The heart appears mildly enlarged. No new consolidation, pneumothorax, or pleural effusions are seen. ?? IMPRESSION: 1. Cardiomegaly. Interpreted By: Mark Anthony Zaman, 07/02/2019 4:42 PM ? EKG: Results for orders placed or performed during the hospital encounter of 07/06/19 ECG 12 lead ?? Narrative ?? 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 Assessment / Plan: ?? Chest pain July 14-patient with sudden onset left-sided chest pain. Relieved with sublingual nitroglycerin. EKG shows no evidence of active ischemia. Patient's blood pressure was high, this is likely demand ischemia. Restart amlodipine and manage blood pressure as below Check serial troponin (negative) Pain resolved . Echo pending at time of discharge ?? HTN Monitor BP Resume lisinopril Resume HEALTH IT SPECIALIST amlodipine Hydralazine as needed Add low-dose Lasix ? Physical deconditioning Making progress in overall strength and mobility Met therapy goals ?? E. coli UTI with bacteremia Good clinical response to Rocephin Antibiotic course completed ?? Hypokalemia Oral KCl repletion Follow up BMP in 1 week ?? CHD Nonobstructive Asymptomatic ?? Hypothyroidism Rx levothyroxine ?? Depression Continue sertraline/trazodone ?? GERD Stop home ranitidine as now off market ? Hypoalbuminemia Likely decrease appetite Due to infection ?? CODE STATUS: Full code POA: Daughter Disposition: home with [facility] Followup Lab Orders:BMP in 1 week Time Spent on Discharge 35 mins Signed: LUDY COON NP Cosigned by Bijan Wilburn MD at 07/18/2019 1:20 PM CDT Associated attestation - Bijan Wilburn MD - 07/18/2019 1:20 PM CDT I, BIJAN WILBURN MD, discussed the discharge plans and disposition with the Advanced Practice Provider (JEREMÍAS). I reviewed the JEREMÍAS's note and agree with the findings and discharge plan of care, except as I have documented. documented in this encounter Medications at Time [...] 1 tablet by mouth daily. 06/20/2019 0 furosemide 20 MG tablet [The details [...] MOUTH AT BEDTIME 90 tablet 05/15/2019 0 trazodone 50 MG tabletIndication s:Sleep Disturbance Take 50 mg by mouth nightly at bedtime. Indications: Disturbed Sleep 08/17/2019 0 documented as of this encounter Progress Notes * Marisa Wheatley PTA - 07/18/2019 1:00 PM CDT Pt nearly met her balance and bed mobility goals. Pt met her other PT goals. Pt to cont PT with HH upon discharge. * AMANDA Blum - 07/18/2019 12:09 PM CDT Interdisciplinary Team conference held. In attendance; case management, UR, nursing, PT, OT, cardiopulmonary, CISCO CONSULTANT, Hospitalist, Pastoral Care, and Pharmacy. Meeting held at 11:00. Patient to discharge home today with [facility] health to follow. * Marisa Wheatley PTA - 07/18/2019 11:38 AM CDT 07/18/19 1045 Therapy Visit Subjective Pt states she is ready to go home today, but wants to work with PT staff yet this AM. Verified Two Patient Identifiers Yes Patient consents to therapy Yes Acute Inpatient PT Time Calculation PT Start Time 848 PT Stop Time 927 PT Time Calculation (min) 39 min Precautions Precautions Yes/No Yes General Precautions Bed Alarm;Chair Alarm;Fall Risk Instructed on Precautions Yes;Verbalizes understanding Cognition Overall Cognitive Status WFL Bed Mobility Supine to Sit SBA/supervision Sit to Supine SBA/supervision TRANSFERS Sit to Stand SBA/supervision;Independent Other (Comment) Stand to sit with suprv/I. Gait Gait Assistance SBA/supervision;Independent Assistive Device 4 Wheeled walker Ambulation Distance (Feet) 100' x 2 Weight Bearing Status Total Balance Balance Test Tinetti: 22 Exercises Ankle Pumps x 10 Quad Sets x 10 Short Arc Quad x 10 Heelslides x 10 Straight Leg Raise x 10 Glut Sets x 10 Hip Abduction x 10 Sitting LE Exercise AP, LAQ, hip flex, hip abd x 10 Other (Comment) Written I/S provided for all ex for pt to perform as home ex program. Additional cues added to handouts as needed. Patient/Family Training Bed Mobility X Transfer Training X Gait Training X Precautions X Exercise Program X PT Assessment PT Assessment Pt performed well. Pt tolerates much more activity than previously. Plan Progress Discontinue PT (Pt scheduled to D/C to home with today.) If this is the last treatment note,it will serve as the discharge summary Yes End of Session Safety End of Session Safety Bed alarm set/activated;Call light within reach End of Session Comment Pt in bed at end of session. Cosigned by June Laughlin, PT at 07/18/2019 4:25 PM CDT * AMANDA Blum - 07/18/2019 10:32 AM CDT Reviewed Non-Coverage letter with patient. The form was signed by the patient as having been received and understood. A copy of the form was left with patient and a copy of the form was placed in thepatient's skinny file for scanning. * Marisa Wheatley PTA - 07/17/2019 3:26 PM CDT Pt is progressing towards all of her PT goals. Pt was able to meet her pivot transfer goal this date. Pt was able to perform bed mobility without leg health information technician, but with effort, today. * Marisa Wheatley PTA - 07/17/2019 3:24 PM CDT 07/17/19 1328 Therapy Visit Subjective Pt states she is feeling pretty good, but knows she needs to keep working. Verified Two Patient Identifiers Yes Patient consents to therapy Yes Acute Inpatient PT Time Calculation PT Start Time 1328 PT Stop Time 1406 PT Time Calculation (min) 38 min Precautions Precautions Yes/No Yes General Precautions Bed Alarm;Chair Alarm;Fall Risk Instructed on Precautions Yes;Verbalizes understanding Pain Pain No Cognition Overall Cognitive Status WFL Other (Comment) Pt. is LOWER BRULE Bed Mobility Supine to Sit Contact guard assist;SBA/supervision (no leg health information technician needed.) Sit to Supine Contact guard assist;SBA/supervision (no leg health information technician needed.) TRANSFERS Sit to Stand SBA/supervision Other (Comment) Stand to sit with suprv/I and cues for hand placement. Gait Gait Assistance SBA/supervision;Independent Assistive Device 4 Wheeled walker Ambulation Distance (Feet) 150' and 120' Weight Bearing Status Total Exercises Ankle Pumps x 10 Quad Sets x 10 Short Arc Quad x 10 Heelslides x 10 with slide board Straight Leg Raise x 5 AROM Glut Sets x 10 Hip Abduction x 10 with slide board. Supine LE Exercise Hip ADD pillow squeeze x 10 Patient/Family Training Bed Mobility X Transfer Training X Gait Training X Precautions X Exercise Program X PT Assessment PT Assessment Pt with improving tolerance for activity. Pt was able to get in and out of bed this session without using any type of leg lifting assistive device. (Pt is pleasant, cooperative, and motivated.) Plan Progress Progressing toward goals If this is the last treatment note,it will serve as the discharge summary Yes End of Session Safety End of Session Safety Bed alarm set/activated;Call light within reach End of Session Comment Pt in bed at end of session. * AMANDA Blum - 07/17/2019 1:57 PM CDT Interdisciplinary Team conference held. In attendance; case management, UR, nursing, PT, OT, cardiopulmonary, CISCO CONSULTANT, Hospitalist, Pastoral Care, and Pharmacy. Meeting held at 11:00. Plan to discharge to her apartment tomorrow with [facility] home health to follow. production manager spoke to patient daughter Krystina today and confirmed merchandise pickup/receiving associate for 1300 tomorrow. production manager also contacted [employer] and notified them of discharge tomorrow. * Marisa Wheatley PTA - 07/17/2019 12:53 PM CDT 07/17/19 1021 Therapy Visit Subjective Pt states she can tell she is stronger. Pt reports she doesn't think her family will be able to get her a leg health information technician right now. Verified Two Patient Identifiers Yes Patient consents to therapy Yes Acute Inpatient PT Time Calculation PT Start Time 1021 PT Stop Time 1052 PT Time Calculation (min) 31 min Precautions Precautions Yes/No Yes General Precautions Bed Alarm;Chair Alarm;Fall Risk Instructed on Precautions Yes;Verbalizes understanding Pain Pain No Cognition Overall Cognitive Status WFL Other (Comment) Pt. is LOWER BRULE Bed Mobility Supine to Sit Contact guard assist (after placement of sheet under foot to use as leg health information technician.) Sit to Supine Contact guard assist (with use of sheet as leg health information technician. 2 trials performed.) TRANSFERS Stand Pivot Transfers Independent (with WW.) Sit to Stand SBA/supervision Other (Comment) Stand to sit with suprv/I and cues for hand placement. Gait Gait Assistance SBA/supervision;Independent Assistive Device 4 Wheeled walker Ambulation Distance (Feet) 120' x 2 Pattern Shuffle steps Weight Bearing Status Total Other (Comment) Slow gait, but improving. Exercises Sitting LE Exercise AP, LAQ, hip flex, hip abd x 10 Patient/Family Training Bed Mobility X Transfer Training X Gait Training X Precautions X Exercise Program X PT Assessment PT Assessment Pt used sheet as leg health information technician as she stated that she did not think her family would be able to get her one at this time. Pt needed some assisstance to place sheet under foot when in supine. Plan Progress Progressing toward goals If this is the last treatment note,it will serve as the discharge summary Yes End of Session Safety End of Session Safety Bed alarm set/activated;Call light within reach End of Session Comment Pt in bed at end of session with radiology entering room to perform a test. * Norma Guidry, ALICIA - 07/17/2019 12:50 PM CDT Pt. Completed LB dressing w/ increased indep this date. Continues to need vc's for safety awarenessand problem solving. * Norma Guidry OT - 07/17/2019 12:49 PM CDT 07/17/19 0849 Therapy Visit OT Received On 07/17/19 Reason for admission Patient arrived to the ED on 07/01 with weakness, went home, and returned on 07/02 with positive urine cultures. She was found to have Bacteremia and admitted to acute care, transitioned to [facility] swing bed for rehab. Comorbidities Relevant to OT hx CAD, nonobstructiveType 2DM, DL, HTN, hypothyroidism, and carotid artery stenosis Verified Two Patient Identifiers Yes Patient consents to therapy Yes Acute Inpatient OT Time Calculation OT Start Time 0849 OT Stop Time 0918 (also in room from 0582-8187; 39 total OT time) OT Time Calculation (min) 29 min Precautions General Precautions Bed Alarm;Chair Alarm;Fall Risk Subjective Subjective Pt. eager to get cleaned up. I think I am getting a little better using this equipment pt. reports during completion of LB dressing tasks. Pain Pain Patient does not offer or c/o pain Activity Tolerance Activity Tolerance Comments Alex's good endurance w/ ADL routine. Cognition Overall Cognitive Status WFL Other (Comment) Pt. is LOWER BRULE ADL Eating/Feeding Assistance Independent;Sitting in chair Eating/Feeding Deficit Setup Eating/Feeding Comment set pt. up w/ breakfast during 1st part of session Grooming Assistance Stand by;Standing at sink;Sitting in chair Grooming Deficit Setup;Supervision/safety Grooming Comment To wash face seated; stands at sink and briscoe hair w/ SBA and good balance Bathing Assistance Minimal;Sitting in chair;Alternating sit/stand Bathing Deficit Setup;Verbal cueing;Supervision/safety;Steadying;Right lower leg including foot;Left lower leg including foot Bathing Comment Completed sponge bath seated on armless shower chair at bathroom sink. Pt. washes UB and LB (up until feet) w/ SBA. Min assist to bathe feet d/t decreased distal reach. Completes emerson-care while standing w/ 4ww w/ SBA/CGA for balance/steadying. UE Dressing Assistance CGA;Sitting in chair UE Dressing Deficit Setup;Supervision/safety;Pull around back UE Dressing Comment [facility] [facility] LE Dressing Assistance CGA;Minimal;Sitting in chair;Alternating sit/stand LE Dressing Deficit Setup;Steadying;Requires assistive device for steadying;Verbal cueing;Supervision/safety;Increased time to complete;Pull up over hips LE Dressing Comment Pt. alex's ability to thread underwear over feet while seated in chair w/ SBA and increased time. Doffs socks indep using risk and insurance consultant w/ increased time, dons socks using sock-aid w/ SBA/CGA and increased time. Pulls clothing up over hips w/ SBA/CGA; however, pt. required min assist to bring underwear to lower leg level as they dropped to ankle level upon standing. Bed Mobility Supine to Sit Min assist to right (using bed rail ) Functional Transfers Sit to Stand SBA/supervision Bed to Chair Contact guard assist;Other (using 4ww ) Functional Mobility SBA mob w/ 4ww to/from bathroom for ADL training. Other (Comment) CGA/SBA w/ transfers to/from armless shower chair at bathroom sink. Balance Sitting - Static Independent Sitting - Dynamic Independent Standing - Static SBA Standing - Dynamic CGA;SBA;Support of one upper extremity;Support of both upper extremities Patient/Family Training Self Cares tech's to promote increased indep/safety Transfer Training locking 4ww brakes, hand placement OT Assessment OT Assessment Pt. alex's increased indep w/ managing LHAE during LB dressing tasks today. Also alex's increased distal reach as she was able to thread underwear over feet without using risk and insurance consultant. Alex's consistent improvements w/ balance and endurance. Continues to need vc's for safety awareness, such as w/ 4ww brake usage during transfers/mob. Modified Luz Maria Score Interval Daily Score 0-6 3 Moderate disability, requiring some help, but able to walk without assistance Plan Progress Progressing toward goals If this is the last treatment note, it will serve as the discharge summary Yes End of Session Safety End of Session Safety Chair alarm set/activated;Call light within reach;Nursing aware of session * Claribel Diaz RN - 07/17/2019 8:48 AM CDT Problem: Discharge Planning Goal: Knowledge of discharge instructions Outcome: Progressing Problem: Mobility - Impaired Goal: Able to use ambulatory assistive device appropriately Outcome: Progressing Goal: Knowledge of need for increased mobility Outcome: Progressing Problem: Pain Goal: Achieve acceptable pain level Outcome: Progressing Problem: Self-care Deficit Goal: Able to perform at functional level of ADLs Outcome: Progressing Problem: Skin Integrity - Impaired Goal: Absence of new skin breakdown Outcome: Progressing Goal: Wound healing Outcome: Progressing Problem: Venous Thromboembolism - Risk of Goal: Absence of venous thromboembolism Outcome: Progressing * Imelda Henley RN - 07/17/2019 12:22 AM CDT Problem: Discharge Planning Goal: Knowledge of discharge instructions Outcome: Progressing Problem: Mobility - Impaired Goal: Able to use ambulatory assistive device appropriately Outcome: Progressing Goal: Knowledge of need for increased mobility Outcome: Progressing Problem: Pain Goal: Achieve acceptable pain level Outcome: Progressing Problem: Self-care Deficit Goal: Able to perform at functional level of ADLs Outcome: Progressing Problem: Skin Integrity - Impaired Goal: Absence of new skin breakdown Outcome: Progressing Goal: Wound healing Outcome: Progressing Problem: Venous Thromboembolism - Risk of Goal: Absence of venous thromboembolism Outcome: Progressing Problem: Transfers Goal: STG - Pt will perform bed mobility Description Indep Outcome: Progressing Goal: STG - Pt will perform sit to stand Description Indep Outcome: Progressing * Bijan Wilburn MD - 07/16/2019 3:28 PM CDT Hospitalist Service Progress Note Subjective: Patient denies any chest pain over the last 24 hours Objective: Filed Vitals: 07/15/19 1344 07/15/19 1359 07/16/19 0300 07/16/19 0925 BP: 123/69 (!) 155/57 142/49 Pulse: 60 Resp: 18 Temp: 97.5 ??F (36.4 ??C) 97.9 ??F (36.6 ??C) 97.7 ??F (36.5 ??C) TempSrc: Tympanic SpO2: 92% Weight: 58.6 kg (129 lb 3 oz) Height: Physical Exam: Please note that full PPE was worn for this encounter including eye protection, mask, and gloves. General: No acute distress, speaking in full sentences, no use of accessory muscles HEENT: Pupils equal and reactive to light and accommodation, oropharynx is clear Neck: Supple, no lymphadenopathy, no JVD Lungs: Clear to auscultation bilaterally Cardiovascular: Regular rate and rhythm with normal S1 and S2 Abdomen: Soft, nontender, nondistended, normoactive bowel sounds Extremities: No cyanosis clubbing or edema Neuro: Nonfocal, A&O x3 Psych: Normal affect LAB: Recent Labs Lab 07/13/19 1135 07/14/19 0543 07/15/19 1434 07/16/19 0629 NA -- 145 143 143 K -- 4.5 4.4 4.7 CL -- 108 106 107 CO2 -- 27.3 28.7 26.9 AGAP -- 9.7 8.3 9.1 BUN -- 21* 16 18 CR -- 0.87 0.97 0.88 BUNCREATININ -- 24.1 16.5 20.5 GFRNON -- 62* 54* 61* GFR -- 71* 63* 70* GLU -- 98 100* 95 CA -- 8.9 8.9 9.1 MAGNESIUM 1.9 -- 1.8 1.9 Recent Labs Lab 07/13/19 1135 07/15/19 1434 07/16/19 0629 WBC 4.9 4.6 4.1* RBC 3.93* 4.09* 4.17* HGB 11.4* 11.8* 11.8* HCT 34.9* 36.2 36.8 MCV 88.8 88.5 88.2 MCH 29.0 28.9 28.3 MCHC 32.7 32.6 32.1 PLT 206 242 243 RDW 14.1 13.9 13.8 MPV 10.0 9.8 9.9 No results for input(s): CPK in the last 168 hours. Recent Labs Lab 07/15/19 1434 INR 1.1 Invalid input(s): ABG Recent Labs Lab 07/15/19 1434 07/15/19 2140 07/16/19 0310 TROP <0.017 <0.017 <0.017 No results for input(s): PH, PCO2, PO2, [id number], BICARBWB, BASEDEFICIT, BASEEXCESS in the [id number] hours. IMAGING: Ct Abd+pel Wo Con Result Date: 07/03/2019 IMAGING STUDIES: CT ABD+PEL WO CON [...] liver without mass. All other visualized noncontrast vis ceral structures are within normal limits.. Stable large [...] Degenerative change in lumbar spine. Stable 80% compressiondeformity of L1 without significant retropulsion.. Osteopenia. Interpreted By: Maren Granda, 07/03/2019 3:03 PM Xr Chest Portable Result Date: 07/03/2019 IMAGING STUDIES: XR CHEST PORTABLE DATE: 07/03/2019 2:29 PM CLINICAL HISTORY: sepsis . COMPARISON: 07/02/2019 IMPRESSION: 1. No evidence of acute cardiopulmonary disease. 2. No evidence of pleural effusion or pneumothorax. No CHF. Stable mild scattered interstitial fibrosis. Stable moderate elevation of the right hemidiaphragm. 3. Atherosclerotic aorta. Mild cardiomegaly. Degenerative change in thoracic spine. Interpreted By: Maren Granda, 07/03/2019 3:01 PM Xr Chest Portable Result Date: 07/02/2019 EXAM: XR CHEST PORTABLE AT 1620 HOURS DATE: 07/02/2019 HISTORY: dyspnea COMPARISON: 07/06/2018 FINDINGS: The right hemidiaphragm remains elevated. The heart appears mildly enlarged. No new consolidation, pneumothorax, or pleural effusions are seen. IMPRESSION: 1. Cardiomegaly. Interpreted By: Mark Anthony Zaman, 07/02/2019 4:42 PM EKG: Results for orders placed or performed during the hospital encounter of 07/06/19 ECG 12 lead Narrative 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 Relieved with sublingual nitroglycerin. EKG shows no evidence of active ischemia. Patient's blood pressure was high, this is likely demand ischemia. Restart amlodipine and manage blood pressure as below -Check serial troponin -Check serial EKG -Telemetry -Aspirin stat now July 15-no chest pain over the last 24 hours. If anything it was likely demand ischemia from hypertension. Troponin negative x3. 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 Will add low-dose Lasix Physical deconditioning Making progress in overall strength and mobility ?? E. coli UTI with bacteremia Good clinical response to Rocephin Again oral Keflex a.m. July 12-antibiotic course completed White blood count within normal limits ?? Hypokalemia Oral KCl repletion ?? CHD Nonobstructive Asymptomatic ? Hypothyroidism Rx levothyroxine ?? Depression Continue sertraline/trazodone ?? GERD Famotidine Rx ?? Hyperglycemia Check HbA1c ?? Hypoalbuminemia Likely decrease appetite Due to infection ?? CODE STATUS: Full code POA: Daughter BIJAN WILBURN MD 07/16/2019 3:28 PM * Imelda Henley RN - 07/15/2019 11:57 PM CDT Problem: Discharge Planning Goal: Knowledge of discharge instructions Outcome: Progressing Problem: Mobility - Impaired Goal: Able to use ambulatory assistive device appropriately Outcome: Progressing Goal: Knowledge of need for increased mobility Outcome: Progressing Problem: Pain Goal: Achieve acceptable pain level Outcome: Progressing Problem: Self-care Deficit Goal: Able to perform at functional level of ADLs Outcome: Progressing Problem: Skin Integrity - Impaired Goal: Absence of new skin breakdown Outcome: Progressing Goal: Wound healing Outcome: Progressing Problem: Venous Thromboembolism - Risk of Goal: Absence of venous thromboembolism Outcome: Progressing Problem: Balance Goal: STG - Pt to demonstrate decreased fall risk in home or community by scoring Description on the Tinetti Outcome: Progressing Problem: Transfers Goal: STG - Pt will perform bed mobility Description Indep Outcome: Progressing Goal: STG - Pt will perform sit to stand Description Indep Outcome: Progressing * Bijan Wilburn MD - 07/15/2019 2:20 PM CDT Hospitalist Service Progress Note Subjective: Patient complains of left-sided chest pain, shaking Objective: Filed Vitals: 07/14/19 0300 07/14/19 0709 07/15/19 0300 07/15/19 0820 BP: (!) 177/63 (!) 173/62 Pulse: 56 55 Resp: 18 18 Temp: 97.3 ??F (36.3 ??C) 97 ??F (36.1 ??C) TempSrc: Tympanic Tympanic SpO2: 92% 93% Weight: 59.9 kg (132 lb 0.9 oz) 58.7 kg (129 lb 6.6 oz) Height: Physical Exam: Please note that full PPE was worn for this encounter including eye protection, mask, and gloves. General: Mild distress, tremulous, speaking in full sentences, no use of accessory muscles HEENT: Pupils equal and reactive to light and accommodation, oropharynx is clear Neck: Supple, no lymphadenopathy, no JVD Lungs: Clear to auscultation bilaterally Cardiovascular: Regular rate and rhythm with normal S1 and S2 Abdomen: Soft, nontender, nondistended, normoactive bowel sounds Extremities: No cyanosis clubbing or edema Neuro: Nonfocal, A&O x3 Psych: Slightly anxious LAB: Recent Labs Lab 07/09/19 0628 07/13/19 1135 07/14/19 0543 NA 144 -- 145 K 4.1 -- 4.5 CL 108 -- 108 CO2 26.9 -- 27.3 AGAP 9.1 -- 9.7 BUN 8 -- 21* CR 0.70 -- 0.87 BUNCREATININ 11.4 -- 24.1 GFRNON 80* -- 62* GFR >90 -- 71* GLU 100* -- 98 CA 8.5 -- 8.9 MAGNESIUM -- 1.9 -- Recent Labs Lab 07/13/19 1135 WBC 4.9 RBC 3.93* HGB 11.4* HCT 34.9* MCV 88.8 MCH 29.0 MCHC 32.7 PLT 206 RDW 14.1 MPV 10.0 No results for input(s): CPK in the last 168 hours. No results for input(s): INR, PTT in the last 168 hours. Invalid input(s): ABG No results for input(s): TROP, TROPIWB, CPK in the last 168 hours. Invalid input(s): CK-MB No results for input(s): PH, PCO2, PO2, [id number], BICARBWB, BASEDEFICIT, BASEEXCESS in the [id number] hours. IMAGING: Ct Abd+pel Wo Con Result Date: 07/03/2019 IMAGING STUDIES: CT ABD+PEL WO CON [...] liver without mass. All other visualized noncontrast vis ceral structures are within normal limits.. Stable large [...] Degenerative change in lumbar spine. Stable 80% compressiondeformity of L1 without significant retropulsion.. Osteopenia. Interpreted By: Maren Granda, 07/03/2019 3:03 PM Xr Chest Portable Result Date: 07/03/2019 IMAGING STUDIES: XR CHEST PORTABLE DATE: 07/03/2019 2:29 PM CLINICAL HISTORY: sepsis . COMPARISON: 07/02/2019 IMPRESSION: 1. No evidence of acute cardiopulmonary disease. 2. No evidence of pleural effusion or pneumothorax. No CHF. Stable mild scattered interstitial fibrosis. Stable moderate elevation of the right hemidiaphragm. 3. Atherosclerotic aorta. Mild cardiomegaly. Degenerative change in thoracic spine. Interpreted By: Maren Granda, 07/03/2019 3:01 PM Xr Chest Portable Result Date: 07/02/2019 EXAM: XR CHEST PORTABLE AT 1620 HOURS DATE: 07/02/2019 HISTORY: dyspnea COMPARISON: 07/06/2018 FINDINGS: The right hemidiaphragm remains elevated. The heart appears mildly enlarged. No new consolidation, pneumothorax, or pleural effusions are seen. IMPRESSION: 1. Cardiomegaly. 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 Relieved with sublingual nitroglycerin. EKG shows no evidence of active ischemia. Patient's blood pressure was high, this is likely demand ischemia. 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 E. coli UTI with bacteremia Good clinical response to Rocephin Again oral Keflex a.m. July 12-antibiotic course completed White blood count within normal limits ?? Hypokalemia Oral KCl repletion ?? CHD Nonobstructive Asymptomatic ? Hypothyroidism Rx levothyroxine ?? Depression Continue sertraline/trazodone ?? GERD Famotidine Rx ?? Hyperglycemia Check HbA1c ?? Hypoalbuminemia Likely decrease appetite Due to infection ?? CODE STATUS: Full code POA: Daughter BIJAN WILBURN MD 07/15/2019 2:20 PM * Marisa Wheatley PTA - 07/15/2019 11:12 AM CDT Pt was able to meet her amb goal and is progression towards her other PT goals. Pt cont to have difficulty with bed mobility, but was able to perform with CGA and use of leg health information technician this date. * Marisa Wheatley PTA - 07/15/2019 11:10 AM CDT 07/15/19 0900 Therapy Visit Subjective Pt states she feels she is getting stronger. Verified Two Patient Identifiers Yes Patient consents to therapy Yes Acute Inpatient PT Time Calculation PT Start Time 899 PT Stop Time 948 PT Time Calculation (min) 49 min Precautions Precautions Yes/No Yes General Precautions Bed Alarm;Chair Alarm;Fall Risk Instructed on Precautions Yes;Verbalizes understanding Pain Pain No Cognition Overall Cognitive Status WFL Other (Comment) Pt. is LOWER BRULE Bed Mobility Supine to Sit Contact guard assist (with increased time and effort) Sit to Supine Contact guard assist (with leg health information technician x 2 trials.) TRANSFERS Sit to Stand SBA/supervision Other (Comment) Stand to sit with suprv and cues for hand placement. Gait Gait Assistance SBA/supervision;Independent Assistive Device 4 Wheeled walker Ambulation Distance (Feet) 120' x 2 Pattern Shuffle steps Weight Bearing Status Total Other (Comment) Slow gait. Exercises Ankle Pumps x 10 Quad Sets x 10 Short Arc Quad x 10 Heelslides x 10 with slide board Straight Leg Raise x 5 AROM Glut Sets x 10 Hip Abduction x 10 with slide board. Supine LE Exercise Hip ADD pillow squeeze x 10 Patient/Family Training Bed Mobility X Transfer Training X Gait Training X Precautions X Exercise Program X Other (Comment) I/S pt to speak to family regarding obtaining leg health information technician to assist with bed mobility. PT Assessment PT Assessment Pt able to tolerate more activity this session, but was very fatigued at the end of session. Plan Progress Progressing toward goals If this is the last treatment note,it will serve as the discharge summary Yes End of Session Safety End of Session Safety Bed alarm set/activated;Call light within reach End of Session Comment Pt in bed at end of session. Spoke with TONO Campoverde regarding letting pt get in and out of bed with suprv if possible and on use of leg health information technician. * Imelda Henley RN - 07/14/2019 11:35 PM CDT Problem: Discharge Planning Goal: Knowledge of discharge instructions Outcome: Progressing Problem: Mobility - Impaired Goal: Able to use ambulatory assistive device appropriately Outcome: Progressing Goal: Knowledge of need for increased mobility Outcome: Progressing Problem: Pain Goal: Achieve acceptable pain level Outcome: Progressing Problem: Self-care Deficit Goal: Able to perform at functional level of ADLs Outcome: Progressing Problem: Skin Integrity - Impaired Goal: Absence of new skin breakdown Outcome: Progressing Goal: Wound healing Outcome: Progressing Problem: Venous Thromboembolism - Risk of Goal: Absence of venous thromboembolism Outcome: Progressing Problem: Balance Goal: STG - Pt to demonstrate decreased fall risk in home or community by scoring Description 23/28 on the Tinetti Outcome: Progressing Problem: Mobility Goal: STG - Pt will ambulate Description 100' x 2 with 4ww and supervision/indep in order to navigate short community distances. Outcome: Progressing Problem: Transfers Goal: STG - Pt will perform bed mobility Description Indep Outcome: Progressing Goal: STG - Pt will perform sit to stand Description Indep Outcome: Progressing Problem: Transfers Goal: STG - Pt will perform a toilet transfer with Description Modified independence, good balance, good endurance. Outcome: Progressing Problem: Mobility Goal: STG - Pt will complete in-room functional mobility Description Using 4ww w/ modified independence, good balance, good endurance. Outcome: Progressing * Marisa Wheatley PTA - 07/14/2019 3:39 PM CDT Pt is progressing towards PT goals, but cont to fatigue easily. * Marisa Wheatley PTA - 07/14/2019 3:37 PM CDT 07/14/19 1304 Therapy Visit Subjective Pt agrees to participate in PT, but would like to go to bed at end of session, Verified Two Patient Identifiers Yes Patient consents to therapy Yes Acute Inpatient PT Time Calculation PT Start Time 1304 PT Stop Time 1343 PT Time Calculation (min) 39 min Precautions Precautions Yes/No Yes General Precautions Bed Alarm;Chair Alarm;Fall Risk Instructed on Precautions Yes;Verbalizes understanding Pain Pain No Cognition Overall Cognitive Status WFL Other (Comment) Pt. is LOWER BRULE Bed Mobility Sit to Supine Contact guard assist (with leg health information technician, increased time and effort.) TRANSFERS Sit to Stand SBA/supervision Other (Comment) Stand to sit with suprv and cues for hand placement. Gait Gait Assistance SBA/supervision Assistive Device 4 Wheeled walker Ambulation Distance (Feet) 120' Pattern Shuffle steps Weight Bearing Status Total Other (Comment) Slow gait. Exercises Ankle Pumps x10 B Quad Sets x10 B Short Arc Quad x 10 Heelslides x 10 with slide board Glut Sets x 10 Hip Abduction x 10 with slide board. Other (Comment) Pt was able to perform all supine ex this date with not assistance other than slideboard used for hip abd and heel slides. Patient/Family Training Bed Mobility X Transfer Training X Gait Training X Precautions X Exercise Program X PT Assessment PT Assessment Pt used leg health information technician for sit to supine and required less assistance. Pt also able to perform all supine ex AROM, but slide board needed with heel slides and hip abd. Plan Progress Slow progress, decreased activity tolerance If this is the last treatment note,it will serve as the discharge summary Yes End of Session Safety End of Session Safety Bed alarm set/activated;Call light within reach;Nursing aware of session End of Session Comment Pt in bed at end of session. * Laura Cheatham RN - 07/14/2019 2:54 PM CDT INTERDISCIPLINARY CARE CONFERENCE: TEAM ATTENDANCE: CASE MANAGEMENT, UR, NURSING, PT, OT, CARDIOPULMONARY, CISCO CONSULTANT, HOSPITALIST HOME HEALTH,PASTORAL CARE, PHARMACY Meeting held at 1100. PT WORKING WITH PATIENT ON TRANSFERS OUT OF BED. ANTICIPATE Monday 07/17 DISCHARGE. SPOKE WITH DAUGHTER OF PATIENT . HER WILL MANAGER E LEARNING PATIENT Wednesday AT 1300 TO TRANSPORT [facility]. * Norma Guidry OT - 07/14/2019 11:56 AM CDT SBA/CGA w/ bathing, transfers, dressing, and grooming tasks today. Good balance, endurance improving. * Norma Guidry OT - 07/14/2019 11:54 AM CDT 07/14/19725 Therapy Visit OT Received On 07/14/19 Reason for admission Patient arrived to the ED on 07/01 with weakness, went home, and returned on 07/02 with positive urine cultures. She was found to have Bacteremia and admitted to acute care, transitioned to [facility] swing bed for rehab. Comorbidities Relevant to OT hx CAD, nonobstructiveType 2DM, DL, HTN, hypothyroidism, and carotid artery stenosis Verified Two Patient Identifiers Yes Patient consents to therapy Yes Acute Inpatient OT Time Calculation OT Start Time 725 OT Stop Time 753 OT Time Calculation (min) 28 min Precautions General Precautions Bed Alarm;Chair Alarm;Fall Risk;Other(comment) (IV Site) Subjective Subjective Pt. agreeable to working w/ OT. It takes me a little bit to get up from the chair. Pain Pain Patient does not offer or c/o pain Activity Tolerance Endurance Tolerates 20 - 30 min activity with rests Cognition Overall Cognitive Status WFL Other (Comment) Pt. is LOWER BRULE ADL Grooming Assistance Stand by;Sitting in chair Grooming Deficit Setup;Supervision/safety Grooming Comment To wash face and comb hair seated at bathroom sink Bathing Assistance CGA;Sitting in chair;Alternating sit/stand Bathing Deficit Setup;Steadying;Verbal cueing;Supervision/safety Bathing Comment Completed from seated position on armless shower chair at bathroom sink. SBA w/ seated components of UB/LB bathing, up until feet. Pt. struggles to bathe her own feet, typically needing assistance; however, today she declined bathing feet. Stands w/ ww and completes emerson-care w/ CGA/SBA for balance/safety. UE Dressing Assistance CGA;Sitting in chair UE Dressing Deficit Setup;Supervision/safety;Pull around back UE Dressing Comment [facility] LE Dressing Assistance CGA;Sitting in chair;Alternating sit/stand LE Dressing Deficit Setup;Steadying;Requires assistive device for steadying;Verbal cueing;Supervision/safety;Increased time to complete LE Dressing Comment Declines changing socks this date. Able to thread personal underwear over feet w/out use of risk and insurance consultant and CGA and vc's for technique. Pt. demo's increased struggle w/ reaching distally; however, she also is challenged by using risk and insurance consultant d/t decreased problem solving ability. Pulls underwear up over hips w/ CGA. Functional Transfers Sit to Stand Contact guard assist;Other (from recliner chair ) Functional Mobility SBA mob w/ 4ww to/from bathroom. Other (Comment) CGA w/ transfers to/from armless shower chair at bathroom sink. Pt. requires vc's for locking 4ww brakes today w/ transfers. Balance Sitting - Static Independent Sitting - Dynamic Independent Standing - Static SBA;Support of one upper extremity;Support of both upper extremities Standing - Dynamic CGA;SBA;Support of one upper extremity;Support of both upper extremities Patient/Family Training Self Cares tech's to promote increased indep/safety Transfer Training hand placement, drug safety assistant's; locking 4ww brakes OT Assessment OT Assessment Pt. alex's inconsistency w/ performance w/ transfers. At times she is able to transfer SBA/CGA level and remembers to lock 4ww brakes; however, other times she does not use brakes, needing increased cues. Pt. alex's improvements w/ LB dressing today, able to thread underwear w/out useof risk and insurance consultant and CGA. Needs increased time for completion of tasks d/t decreased problem solving ability. Continues to benefit from OT. Modified [place] Score Interval Daily Score 0-6 3 Moderate disability, requiring some help, but able to walk without assistance Plan Progress Progressing toward goals If this is the last treatment note, it will serve as the discharge summary Yes End of Session Safety End of Session Safety Chair alarm set/activated;Call light within reach;Nursing aware of session * Marisa Wheatley PTA - 07/14/2019 10:59 AM CDT 07/14/19904 Therapy Visit Subjective Pt states she is still tired, but agrees to participate in PT. Verified Two Patient Identifiers Yes Patient consents to therapy Yes Acute Inpatient PT Time Calculation PT Start Time 904 PT Stop Time 936 PT Time Calculation (min) 32 min PT Therapy Interruption (min) Pt went to the bathroom during session.. Actual PT mins 30. Precautions Precautions Yes/No Yes General Precautions Bed Alarm;Chair Alarm;Fall Risk Instructed on Precautions Yes;Verbalizes understanding Pain Pain No Cognition Overall Cognitive Status WFL Other (Comment) Pt. is LOWER BRULE Bed Mobility Supine to Sit Contact guard assist (with increased time and effort as well as cues.) Sit to Supine Min assist to right (for LEs, then CGA/min A with belt as leg health information technician.) TRANSFERS Sit to Stand SBA/supervision Other (Comment) Stand to sit with suprv and cues for hand placement. Gait Gait Assistance SBA/supervision Assistive Device 4 Wheeled walker Ambulation Distance (Feet) 120' x 2 Pattern Shuffle steps Weight Bearing Status Total Other (Comment) Slow gait. Balance Standing - Static SBA;Support of both upper extremities Standing - Dynamic SBA;Support of both upper extremities Exercises Other (Comment) Pt too fatigued after amb and 2 trials of sit to supine. Patient/Family Training Bed Mobility X Transfer Training X Gait Training X Precautions X PT Assessment PT Assessment Pt cont to fatigue fairly quickly. Pt was able to perform sit to supine with less assistance using the belt as as leg health information technician. Plan on bringing a leg health information technician for pt to try with PM session. Plan Progress Slow progress, decreased activity tolerance If this is the last treatment note,it will serve as the discharge summary Yes End of Session Safety End of Session Safety Bed alarm set/activated;Call light within reach End of Session Comment Pt in bed at end of session. * June Laughlin, PT - 07/13/2019 5:20 PM CDT Patient met her ambulation goal this session, but will continued to be assessed for consistency. She is progressing towards all of her other goals at this time. * June Laughlin, PT - 07/13/2019 4:21 PM CDT 07/13/19 1500 Therapy Visit Subjective Patient was seated in recliner on arrival to the room and agrees to participate in therapy. Verified Two Patient Identifiers Yes Patient consents to therapy Yes Acute Inpatient PT Time Calculation PT Start Time 1439 PT Stop Time 1505 PT Time Calculation (min) 26 min Precautions Precautions Yes/No Yes General Precautions Bed Alarm;Chair Alarm;Fall Risk (IV site R UE ) Pain Pain Patient does not offer or c/o pain Activity Tolerance Endurance Tolerates 20 - 30 min activity with rests Cognition Overall Cognitive Status WFL Other (Comment) Pt. is LOWER BRULE TRANSFERS Sit to Stand Contact guard assist (from recliner ) Other (Comment) Stand to sit: supervision Gait Gait Assistance SBA/supervision Assistive Device 4 Wheeled walker Ambulation Distance (Feet) 120' x 2 Pattern Shuffle steps (decreased yasmin ) Balance Standing - Static SBA;Support of both upper extremities Standing - Dynamic SBA;Support of both upper extremities Exercises Ankle Pumps x10 B Glut Sets x10 B Hip Flexion marching alternating x10 B seated Hip Abduction x10 B seated Sitting LE Exercise LAQ x 10 B seated, hip ADD pillow squeeze x 10 Patient/Family Training Transfer Training x Gait Training x Precautions x Exercise Program x PT Assessment PT Assessment Patient fatigues quickly with seated exercise. She demonstrates good balance with gait and static standing. Plan Progress Progressing toward goals If this is the last treatment note,it will serve as the discharge summary Yes End of Session Safety End of Session Safety Call light within reach;Nursing aware of session End of Session Comment Ended session with patient in restroom and TOBACCO WRAPPING MACHINE TENDER outside the room for assistance. * Norma Guidry, OT - 07/13/2019 2:48 PM CDT 07/13/19 1353 Therapy Visit OT Received On 07/13/19 Reason for admission Patient arrived to the ED on 07/01 with weakness, went home, and returned on 07/02 with positive urine cultures. She was found to have Bacteremia and admitted to acute care, transitioned to [facility] swing bed for rehab. Comorbidities Relevant to OT hx CAD nonobstructiveType 2DM, DL, HTN, hypothyroidism, and carotid artery stenosis Verified Two Patient Identifiers Yes Patient consents to therapy Yes Acute Inpatient OT Time Calculation OT Start Time 1353 OT Stop Time 1412 OT Time Calculation (min) 19 min Precautions General Precautions Bed Alarm;Chair Alarm;Fall Risk;Other(comment) (IV Site R UE) Subjective Subjective Pt. agreeable to work w/ OT for 2nd tx this date. States she uses a risk and insurance consultant at home to get things out of upper cabinets. Pain Pain Patient does not offer or c/o pain Activity Tolerance Endurance Tolerates 10 - 20 min activity with rests Cognition Overall Cognitive Status WFL Other (Comment) Pt. is LOWER BRULE ADL Grooming Assistance Stand by;Standing at sink Grooming Deficit Supervision/safety Grooming Comment Stands at sink and performs hand hygiene w/ SBA and good balance. Toileting Assistance Stand by Toileting Deficit Supervision/safety Toileting Comment Performs hygiene while seated on toilet w/ SBA. While standing w/ 4ww, performings clothing mgmt. over hips w/ SBA and good balance. IADL IADL Comments Rehearsed item retrieval for completion of ADLs/iADLs at home using 4ww. Had pt. retrieve clothing items from various level drawers and [place] cabinets. Required use of risk and insurance consultant for removing/placing items from [place] cabinet. Did not rehearse reaching into below knee level cabinets/drawers today d/t pt. fatiguing w/ task. Required close CGA for balance/safety w/ task and mod vc's for safety techniques/awareness. Ursulao's increased need for cues for manipulation of risk and insurance consultant when transferring objects in/out of cabinet. Functional Transfers Sit to Stand Contact guard assist;Other (from recliner chair x 2 trials ) Toilet Transfers CGA;Additional time (from standard toilet ) Functional Mobility Performed functional mobility training in room using 4ww w/ SBA/CGA. Other (Comment) Min vc's for 4ww brake usage, pt. alex'd improved ability to remember for 75% of session. Balance Standing - Static SBA;Support of one upper extremity;Support of both upper extremities Standing - Dynamic CGA;Support of one upper extremity;Support of both upper extremities Patient/Family Training Self Cares tech's to promote increased indep/safety; item retrieval techniques Transfer Training 4ww brake usage OT Assessment OT Assessment Pt. alex's good endurance w/ participation in 2nd OT session this date. Good carry-over from A.M. session w/ use of 4ww brakes during transfers/mobility. Pt. alex's need for increased time and increased cues for processing information, especially w/ manipulation of risk and insurance consultant during item retrieval. Pt. also demo's slow movements w/ item retrieval/mobility, requiring increased time for completion. Modified [place] Score Interval Daily Score 0-6 3 Moderate disability, requiring some help, but able to walk without assistance Plan Progress Progressing toward goals If this is the last treatment note, it will serve as the discharge summary Yes End of Session Safety End of Session Safety Call light within reach;Chair alarm set/activated * Norma Guidry OT - 07/13/2019 2:48 PM CDT CGA/SBA w/ transfers/mob this P.M. Increased time required for completion of tasks. Good endurance,dynamic balance improving. Vc's for safety awareness. * Bijan Wilburn MD - 07/13/2019 1:30 PM CDT Hospitalist Service Progress Note Subjective: No new complaints Objective: Filed Vitals: 07/12/19 0017 07/12/19 0730 07/13/19 0300 07/13/19 0812 BP: (!) 182/62 (!) 164/56 Pulse: 57 56 Resp: 20 18 Temp: 97.3 ??F (36.3 ??C) 97.4 ??F (36.3 ??C) TempSrc: Tympanic Tympanic SpO2: 91% 94% Weight: 62.2 kg (137 lb 2 oz) 59.9 kg (132 lb 0.9 oz) Height: Physical Exam: Please note that full PPE was worn for this encounter including eye protection, mask, gown and gloves. General: No acute distress, speaking in full sentences, no use of accessory muscles HEENT: Pupils equal and reactive to light and accommodation, oropharynx is clear Neck: Supple, no lymphadenopathy, no JVD Lungs: Clear to auscultation bilaterally Cardiovascular: Regular rate and rhythm with normal S1 and S2 Abdomen: Soft, nontender, nondistended, normoactive bowel sounds Extremities: No cyanosis clubbing or edema Neuro: Nonfocal, A&O x3 Psych: Normal affect LAB: Recent Labs Lab 07/08/19 0831 07/09/19 0628 07/13/19 1135 NA 145 144 -- K 3.3* 4.1 -- CL 107 108 -- CO2 27.9 26.9 -- AGAP 10.1 9.1 -- BUN 8 8 -- CR 0.81 0.70 -- BUNCREATININ 9.9 11.4 -- GFRNON 67* 80* -- GFR 78* >90 -- GLU 101* 100* -- CA 8.8 8.5 -- MAGNESIUM -- -- 1.9 Recent Labs Lab 07/13/19 1135 WBC 4.9 RBC 3.93* HGB 11.4* HCT 34.9* MCV 88.8 MCH 29.0 MCHC 32.7 PLT 206 RDW 14.1 MPV 10.0 No results for input(s): CPK in the last 168 hours. No results for input(s): INR, PTT in the last 168 hours. Invalid input(s): ABG No results for input(s): TROP, TROPIWB, CPK in the last 168 hours. Invalid input(s): CK-MB No results for input(s): PH, PCO2, PO2, S5BOSURPFLVH, BICARBWB, BASEDEFICIT, BASEEXCESS in the neuo181 hours. IMAGING: Ct Abd+pel Wo Con Result Date: 07/03/2019 IMAGING STUDIES: CT ABD+PEL WO CON [...] liver without mass. All other visualized noncontrast vis ceral structures are within normal limits.. Stable large [...] Degenerative change in lumbar spine. Stable 80% compressiondeformity of L1 without significant retropulsion.. Osteopenia. Interpreted By: Maren Granda, 07/03/2019 3:03 PM Xr Chest Portable Result Date: 07/03/2019 IMAGING STUDIES: XR CHEST PORTABLE DATE: 07/03/2019 2:29 PM CLINICAL HISTORY: sepsis . COMPARISON: 07/02/2019 IMPRESSION: 1. No evidence of acute cardiopulmonary disease. 2. No evidence of pleural effusion or pneumothorax. No CHF. Stable mild scattered interstitial fibrosis. Stable moderate elevation of the right hemidiaphragm. 3. Atherosclerotic aorta. Mild cardiomegaly. Degenerative change in thoracic spine. Interpreted By: Maren Granda, 07/03/2019 3:01 PM Xr Chest Portable Result Date: 07/02/2019 EXAM: XR CHEST PORTABLE AT 1620 HOURS DATE: 07/02/2019 HISTORY: dyspnea COMPARISON: 07/06/2018 FINDINGS: The right hemidiaphragm remains elevated. The heart appears mildly enlarged. No new consolidation, pneumothorax, or pleural effusions are seen. IMPRESSION: 1. Cardiomegaly. Interpreted By: Mark Anthony Zaman, 07/02/2019 4:42 PM EKG: No results found for this visit on 07/06/19. Assessment / Plan: Physical deconditioning Making progress in overall strength and mobility ?? E. coli UTI with bacteremia Good clinical response to Rocephin Again oral Keflex a.m. July 12-antibiotic course completed White blood count within normal limits ?? Hypokalemia Oral KCl repletion ?? CHD Nonobstructive Asymptomatic ?? HTN Monitor BP Resume lisinopril ?? Hypothyroidism Rx levothyroxine ?? Depression Continue sertraline/trazodone ?? GERD Famotidine Rx ?? Hyperglycemia Check HbA1c ?? Hypoalbuminemia Likely decrease appetite Due to infection ?? CODE STATUS: Full code POA: Daughter BIJAN WILBURN MD 07/13/2019 1:30 PM * June Laughlin, PT - 07/13/2019 12:59 PM CDT Patient is progressing towards all goals. She has met her goal for AMB this session, but will continued to be assessed for consistency. * June Laughlin, PT - 07/13/2019 12:58 PM CDT 07/13/19 1100 Therapy Visit Treatment Day (Recheck and treatment ) Subjective Patient was seated in the recliner on arrival to the room and reports that she is tired. Verified Two Patient Identifiers Yes Patient consents to therapy Yes Acute Inpatient PT Time Calculation PT Start Time 922 PT Stop Time 953 PT Time Calculation (min) 31 min Precautions Precautions Yes/No Yes General Precautions Bed Alarm;Chair Alarm;Fall Risk (IV site ) Instructed on Precautions Yes;Verbalizes understanding Pain Pain Patient does not offer or c/o pain Activity Tolerance Activity Tolerance Comments Patient demonstrates good endurance, but continued weakness noted in B LE Cognition Overall Cognitive Status WFL Other (Comment) Pt. is LOWER BRULE Bed Mobility Sit to Supine Min assist to left TRANSFERS Sit to Stand Min assist (from recliner) Other (Comment) Stand to sit: supervision with V/C for safety. Toilet transfer performed this AM. Patient required supevision with sit to stance from [place] height toilet. She was able to perform thorough hygiene with SBA for safety and 1UE support through 4ww Gait Gait Assistance SBA/supervision Assistive Device 4 Wheeled walker Ambulation Distance (Feet) 120', 130' Pattern Shuffle steps (Decreased yasmin ) Weight Bearing Status Total Other (Comment) Patient demonstrates good balance with 4ww. Balance Sitting - Static Independent Sitting - Dynamic Independent Standing - Static SBA;Support of both upper extremities Standing - Dynamic SBA;Support of both upper extremities Exercises Ankle Pumps x10 B Quad Sets x10 B Heelslides x10 B with assist for full ROM Straight Leg Raise x10 B with assist for full ROM Glut Sets x10 B Hip Abduction x10 B with assist for full ROM Supine LE Exercise Hip ADD pillow squeeze Patient/Family Training Bed Mobility x Transfer Training x Gait Training x Precautions x Exercise Program x PT Assessment PT Assessment Patient continues to fatigue quickly with exercises. She is progressing towards her balance, transfer, and bed mobility goal. She has met her goal for AMB this session, but will continue to be assessed for consistent performance. Skilled PT will be continued to promote strength and improve activity tolerance in order to optimize independence with functional mobility. Plan Progress Progressing toward goals If this is the last treatment note,it will serve as the discharge summary Yes End of Session Safety End of Session Safety Bed alarm set/activated;Call light within reach End of Session Comment Ended session with patient supine in bed * Norma Guidry, OT - 07/13/2019 11:50 AM CDT Min assist w/ UB/LB dressing tasks, min assist bathing, CGA for standing balance w/ 4ww during standing ADL's. Needs vc's for safety awareness. * Norma Guidry OT - 07/13/2019 11:49 AM CDT 07/13/19727 Therapy Visit OT Received On 07/13/19 Reason for admission Patient arrived to the ED on 07/01 with weakness, went home, and returned on 07/02 with positive urine cultures. She was found to have Bacteremia and admitted to acute care, transitioned to [facility] swing bed for rehab. Comorbidities Relevant to OT hx CAD nonobstructiveType 2DM, DL, HTN, hypothyroidism, and carotid artery stenosis Verified Two Patient Identifiers Yes Patient consents to therapy Yes Acute Inpatient OT Time Calculation OT Start Time 727 OT Stop Time 804 OT Time Calculation (min) 37 min Precautions General Precautions Bed Alarm;Chair Alarm;Fall Risk;Other(comment) (IV site R UE) Subjective Subjective Pt. pleasant and cooperative. Does not want to take a shower d/t not having ear plugs here. Also declines wearing her own clothing (other than underwear). Pain Pain No Activity Tolerance Activity Tolerance Comments Good endurance w/ seated ADL activities, fatigues w/ standing ADL's andmobility. Cognition Overall Cognitive Status WFL Other (Comment) Pt. is LOWER BRULE. ADL Grooming Assistance Stand by;Standing at sink;Sitting in chair Grooming Deficit Setup;Supervision/safety Grooming Comment Washes face indep after set-up while seated at bathroom sink. Stands at bathroom sink and br[place]e hair and rinses mouth w/ mouthwash w/ SBA and good balance. Bathing Assistance Minimal;Sitting in chair;Alternating sit/stand Bathing Deficit Setup;Steadying;Verbal cueing;Supervision/safety;Right lower leg including foot;Left lower leg including foot Bathing Comment Completed sponge bath seated on armless shower chair at bathroom sink. SBA w/ all seated UB/LB bathing, up until feet. Required assist to bathe bilateral feet d/t decreased distal reach. Stands w/ 4ww and completes front/rear emerson-care w/ CGA for balance/steadying and increased time. UE Dressing Assistance CGA;Sitting in chair UE Dressing Deficit Setup;Supervision/safety;Pull around back UE Dressing Comment [facility] LE Dressing Assistance Minimal;Sitting in chair;Alternating sit/stand LE Dressing Deficit Setup;Steadying;Requires assistive device for steadying;Verbal cueing;Supervision/safety;Increased time to complete;Don/doff R sock;Don/doff L sock;Thread RLE into underwear;Thread LLE into underwear;Use of adaptive equipment LE Dressing Comment Doffs socks using risk and insurance consultant w/ SBA and increased time. Able to thread underwear over feet using risk and insurance consultant w/ min assist and mod vc's for technique. CGA/min assist to don socks using sock-aid d/t decreased hand strength. Pulls clothing up over hips w/ CGA for balance while standing w/ 4ww. Max vc's for use of LHAE d/t decreased problem solving and sequencing ability. Toileting Assistance Stand by Toileting Deficit Supervision/safety;Increased time to complete Toileting Comment Completes hygiene while seated on toilet w/ SBA. Pt. not wearing underwear, so clothing mgmt. not addressed. Bed Mobility Supine to Sit Min assist to left (using bed rail) Functional Transfers Sit to Stand SBA/supervision Toilet Transfers CGA;Additional time (from standard toilet ) Functional Mobility SBA mob w/ 4ww to/from bathroom for ADL's. Other (Comment) SBA/CGA to transfer to/from armless shower chair. Vc's for locking 4ww brakes w/ transfers/mob. Balance Sitting - Static Independent Sitting - Dynamic Independent Standing - Static SBA;Support of one upper extremity;Support of both upper extremities Standing - Dynamic CGA;SBA;Support of one upper extremity;Support of both upper extremities Patient/Family Training Self Cares LHAE use w/ LB dressing; tech's to promote increased indep/safety Transfer Training hand placement, locking 4ww brakes w/ transfers OT Assessment OT Assessment Aviva continues to show good progress towards OT goals. Alex's increased tremors in the UB this morning w/ ADL's. Requires consistent cues for locking 4ww brakes w/ functional transfers. Alex's improvements w/ LB dressing using LHAE, but continues to need increased time for processing/sequencing and manipulation. Modified [place] Score Interval Daily Score 0-6 3 Moderate disability, requiring some help, but able to walk without assistance Plan Progress Progressing toward goals If this is the last treatment note, it will serve as the discharge summary Yes End of Session Safety End of Session Safety Call light within reach;Chair alarm set/activated End of Session Comment Assisted pt. w/ ordering breakfast at end of session. * Claribel Diaz RN - 07/13/2019 8:45 AM CDT Problem: Discharge Planning Goal: Knowledge of discharge instructions Outcome: Progressing Problem: Mobility - Impaired Goal: Able to use ambulatory assistive device appropriately Outcome: Progressing Goal: Knowledge of need for increased mobility Outcome: Progressing Problem: Pain Goal: Achieve acceptable pain level Outcome: Progressing Problem: Self-care Deficit Goal: Able to perform at functional level of ADLs Outcome: Progressing Problem: Skin Integrity - Impaired Goal: Absence of new skin breakdown Outcome: Progressing Goal: Wound healing Outcome: Progressing Problem: Venous Thromboembolism - Risk of Goal: Absence of venous thromboembolism Outcome: Progressing * Marisa Wheatley PTA - 07/12/2019 3:41 PM CDT Pt is progressing slowly towards her PT goals as pt fatigues easily. Pt does cont to struggle with sit to supine. * Marisa Wheatley PTA - 07/12/2019 3:39 PM CDT 07/12/19 1252 Therapy Visit Subjective Pt states she cont to feel tired. Pt would like to go to bed after PT session. Verified Two Patient Identifiers Yes Patient consents to therapy Yes Acute Inpatient PT Time Calculation PT Start Time 1252 PT Stop Time 1319 PT Time Calculation (min) 27 min PT Therapy Interruption (min) Pt went to the bathroom during session. Actual PT mins 24. Precautions Precautions Yes/No Yes General Precautions Bed Alarm;Chair Alarm;Fall Risk Instructed on Precautions Yes;Verbalizes understanding Pain Pain No Activity Tolerance Activity Tolerance Comments Pt fatigues quickly with amb. Pt also requires rest breaks during ex. Cognition Overall Cognitive Status WFL Other (Comment) Pt. is LOWER BRULE. Bed Mobility Sit to Supine Min assist to right (to elevate LEs onto bed.) TRANSFERS Sit to Stand SBA/supervision (increased effort needed this session.) Other (Comment) Stand to sit with suprv and cues for hand placement. Gait Gait Assistance SBA/supervision Assistive Device 4 Wheeled walker Ambulation Distance (Feet) 100' and 80' Pattern Shuffle steps Weight Bearing Status Total Other (Comment) Slow gait. Exercises Ankle Pumps x 10 Quad Sets x 10 Short Arc Quad x 10 Glut Sets x 10 Other (Comment) No further ex due to fatigue. Patient/Family Training Bed Mobility X Transfer Training X Gait Training X Precautions X Exercise Program X PT Assessment PT Assessment Pt cont to easily fatigue, which inhibits progress. Plan Progress Slow progress, decreased activity tolerance If this is the last treatment note,it will serve as the discharge summary Yes End of Session Safety End of Session Safety Bed alarm set/activated;Call light within reach End of Session Comment Pt in bed at end of session. * Marisa Wheatley PTA - 07/12/2019 10:41 AM CDT 07/12/19906 Therapy Visit Subjective Pt states she is tired and would like to go to bed after PT session. Verified Two Patient Identifiers Yes Patient consents to therapy Yes Acute Inpatient PT Time Calculation PT Start Time 906 PT Stop Time 930 PT Time Calculation (min) 24 min Precautions Precautions Yes/No Yes General Precautions Bed Alarm;Chair Alarm;Fall Risk Instructed on Precautions Yes;Verbalizes understanding Pain Pain No Cognition Overall Cognitive Status WFL Other (Comment) Pt. is LOWER BRULE. Bed Mobility Sit to Supine Min assist to right (To elevate LEs onto bed.) TRANSFERS Sit to Stand SBA/supervision Other (Comment) Stand to sit with suprv and cues for hand placement. Gait Gait Assistance SBA/supervision Assistive Device 4 Wheeled walker Ambulation Distance (Feet) 100' x 2 Pattern Shuffle steps Weight Bearing Status Total Other (Comment) Slow gait. Exercises Ankle Pumps x 10 Quad Sets x 10 Short Arc Quad x 10 Glut Sets x 10 Other (Comment) No further ex due to fatigue. Patient/Family Training Bed Mobility X Transfer Training X Gait Training X Precautions X Exercise Program X PT Assessment PT Assessment Pt visibly fatigued at end of session. Pt cont to have difficulty with elevating LEs onto bed with sit to supine. Plan Progress Slow progress, decreased activity tolerance If this is the last treatment note,it will serve as the discharge summary Yes End of Session Safety End of Session Safety Bed alarm set/activated;Call light within reach End of Session Comment Pt in bed at end of session. * Norma Guidry OT - 07/12/2019 8:32 AM CDT Min assist w/ UB/LB dressing using LHAE, SBA/CGA w/ transfers/mob using 4ww w/ vc's for safety w/ locking brakes. * Norma Guidry OT - 07/12/2019 8:31 AM CDT 07/12/19724 Therapy Visit OT Received On 07/12/19 Reason for admission Patient arrived to the ED on 07/01 with weakness, went home, and returned on 07/02 with positive urine cultures. She was found to have Bacteremia and admitted to acute care, transitioned to [facility] swing bed for rehab. Comorbidities Relevant to OT hx CAD nonobstructiveType 2DM, DL, HTN, hypothyroidism, and carotid artery stenosis Verified Two Patient Identifiers Yes Patient consents to therapy Yes Acute Inpatient OT Time Calculation OT Start Time 724 OT Stop Time 804 OT Time Calculation (min) 40 min Precautions General Precautions Bed Alarm;Chair Alarm;Fall Risk;Other(comment) (IV Site R UE) Subjective Subjective Pt. eager to get up and get cleaned up this morning. Pain Pain Patient does not offer or c/o pain Activity Tolerance Activity Tolerance Comments Demo's good endurance w/ seated ADL tasks, fatigues w/ standing ADL activities and transfers/mob. Cognition Overall Cognitive Status WFL Other (Comment) Pt. is LOWER BRULE. ADL Grooming Assistance Stand by;Standing at sink Grooming Deficit Setup;Supervision/safety Grooming Comment Stood at sink to combed hair w/ SBA and good balance. Washed face indep after set-up. Pt. wears dentures, able to place in mouth indep (soaked overnight). Bathing Assistance Minimal;Sitting in chair;Alternating sit/stand Bathing Deficit Setup;Steadying;Verbal cueing;Supervision/safety;Right lower leg including foot;Left lower leg including foot Bathing Comment Completed sponge bath seated on armless shower chair at bathroom sink. SBA w/ all seated UB/LB bathing, up until feet. Required assist to bathe bilateral feet. Stands w/ 4ww and completes front/rear emerson-care w/ CGA for balance/steadying. UE Dressing Assistance Minimal;Sitting in chair UE Dressing Deficit Setup;Thread RUE;Thread LUE UE Dressing Comment Don/Doff [facility] LE Dressing Assistance Minimal;Sitting in chair;Alternating sit/stand LE Dressing Deficit Setup;Steadying;Requires assistive device for steadying;Verbal cueing;Supervision/safety;Increased time to complete;Don/doff R sock;Don/doff L sock;Thread RLE into underwear;Thread LLE into underwear;Use of adaptive equipment LE Dressing Comment Doffs socks w/ min assist using risk and insurance consultant; threads underwear over feet using risk and insurance consultant w/ min assist and max vc's for technique; min assist to don socks using sock-aid. Pulls underwear up over hips w/ CGA while standing w/ 4ww. Toileting Assistance Stand by Toileting Deficit Supervision/safety Toileting Comment Pt. uses standard toilet for toileting. SBA to perform hygiene while seated on toilet. Additional Comments Declines wearing personal clothing other than underwear despite encouragement from OT. Pt. needs extra vc's for manipulation of risk and insurance consultant and sock-aid during LB dressing, struggles d/t decreased hand strength and problem solving/sequencing ability. IADL IADL Comments Performed clothing item retrieval from cabinets using 4ww w/ CGA for balance/steadying. Bed Mobility Supine to Sit Min assist to left (using bed rail) Functional Transfers Sit to Stand SBA/supervision Toilet Transfers CGA;Additional time (from standard toilet) Functional Mobility SBA/CGA mob w/ 4ww to/from bathroom for ADL's and around room during item retrieval. Other (Comment) Pt. requires vc's for hand placement w/ transfers and locking 4ww brakes w/ stand/sit transfers. Balance Sitting - Static Independent Sitting - Dynamic Independent Standing - Static SBA;Support of one upper extremity;Support of both upper extremities Standing - Dynamic CGA;SBA;Support of one upper extremity;Support of both upper extremities Patient/Family Training Self Cares LHAE use during LB dressing; tech's to promote increased indep/safety Transfer Training locking brakes on 4ww OT Assessment OT Assessment Aviva is making good progress towards OT goals. Ursulao's less need for assist for performing LB dressing this date; however, she continues to struggle w/ manipulation of LHAE, needing increased cues for technique. Continues to benefit from OT. Making improvements w/ transfers, standing balance, and overall activity tolerance. Modified [place] Score Interval Daily Score 0-6 3 Moderate disability, requiring some help, but able to walk without assistance Plan Progress Progressing toward goals If this is the last treatment note, it will serve as the discharge summary Yes End of Session Safety End of Session Safety Chair alarm set/activated;Call light within reach End of Session Comment Assisted pt. w/ ordering breakfast at end of session. * Marisa Wheatley PTA - 07/11/2019 4:25 PM CDT Pt is progressing towards her PT goals and has nearly met her amb goal, but cont to have difficultyelevating her legs onto the bed for sit to supine. Pt also cont to fatigue fairly easily. * Marisa Wheatley PTA - 07/11/2019 4:23 PM CDT 07/11/19 1443 Therapy Visit Subjective Pt states she is tired and would like to go to bed after PT session. Verified Two Patient Identifiers Yes Patient consents to therapy Yes Acute Inpatient PT Time Calculation PT Start Time 1443 PT Stop Time 1507 PT Time Calculation (min) 24 min Precautions Precautions Yes/No Yes General Precautions Bed Alarm;Chair Alarm;Fall Risk Instructed on Precautions Yes;Verbalizes understanding Pain Pain No Cognition Overall Cognitive Status WFL Other (Comment) Pt. is LOWER BRULE. Bed Mobility Sit to Supine Min assist to right (to fully elevate LEs onto bed.) TRANSFERS Sit to Stand SBA/supervision Other (Comment) Stand to sit with suprv and cues for hand placement. Gait Gait Assistance SBA/supervision Assistive Device 4 Wheeled walker Ambulation Distance (Feet) 100' x 2 Pattern Shuffle steps Weight Bearing Status Total Other (Comment) Slow gait. Exercises Ankle Pumps x 10 Quad Sets x 10 Short Arc Quad x 10 Glut Sets x 10 Other (Comment) Pt too fatigued to cont ex. Patient/Family Training Bed Mobility X Transfer Training X Gait Training X Precautions X Exercise Program X PT Assessment PT Assessment Pt cont to have difficulty elevating her LEs onto the bed for sit to supine. Pt cont to fatigue easily. Plan Progress Progressing toward goals If this is the last treatment note,it will serve as the discharge summary Yes End of Session Safety End of Session Safety Bed alarm set/activated;Call light within reach End of Session Comment Pt in bed at end of session. * AMANDA Blum - 07/11/2019 2:26 PM CDT Interdisciplinary Team conference held. In attendance; case management, UR, nursing, PT, OT, cardiopulmonary, CISCO CONSULTANT, Hospitalist, Pastoral Care, and Pharmacy. Meeting held at 11:00. Continue PT/OT goals through 07/18/2019. Family meeting held today at 1320 in patient room. In attendance; Case Management, Therapy, Pastoral Care, Patient, and patient daughterKrystina (on phone). Discussed therapy goals and progress. Goals are set for 07/17 but patient is progressing well and may be able to DC home sooner. Spoke to patient and daughter about Home Health and they have requested this be set up through [facility]. Referral hasbeen sent. * Mary Dickey, OT - 07/11/2019 2:26 PM CDT 07/11/19 1400 Therapy Visit Reason for admission Patient arrived to the ED on 07/01 with weakness, went home, and returned on 07/02 with positive urine cultures. She was found to have Bacteremia and admitted to acute care, transitioned to [facility] bed for rehab. Comorbidities Relevant to OT hx CAD nonobstructiveType 2DM, DL, HTN, hypothyroidism, and carotid artery stenosis Verified Two Patient Identifiers Yes Patient consents to therapy Yes Acute Inpatient OT Time Calculation OT Start Time 1325 OT Stop Time 1355 OT Time Calculation (min) 30 min OT Therapy Interruption (min) Patient care mtg [phone]; Treatment [id number] Precautions General Precautions Bed Alarm;Chair Alarm;Fall Risk Subjective Subjective Attended care plan meeting w/ patient, dtr on speaker phone, immigration case worker, pastoral care. Reviewed patient's progress w/ OT and reviewed goals. Current LTG date 07/18/19. Patient strugglingw/ LB dressing but prorgressing well w/ mobility and transfers. Plans to return home to [facility] w/ Meals on Wheels and home health services. Planning to move in w/ daughter in next month. Dtr has questions regarding patient's medical status (infection) and RN to call patient's daughter todiscuss. Plan to cont w/ OT POC. PT feels patient may attain PT goals prior to 07/18/19. Pain Pain Patient does not offer or c/o pain ADL LE Dressing Assistance Moderate LE Dressing Deficit Don/doff R sock;Don/doff L sock;Increased time to complete;Verbal cueing;ThreadRLE into underwear;Thread LLE into underwear;Use of adaptive equipment LE Dressing Comment Rehearsed LB dressing from chair w/ use of risk and insurance consultant and sock aid. Additional Comments After instruction on use of risk and insurance consultant and sock aid, patient able to doff socks w/risk and insurance consultant w/ CGA. CGA and increased time to thread underwear over feet w/ use of risk and insurance consultant. Mod assist to don socks w/ use of sock aid. Difficulty loading socks onto sock aid due to decreased hand strength, Patient needs extra cues to manipulate risk and insurance consultant. Struggles to problem solve w/ risk and insurance consultant. Needs maxcues. OT Assessment OT Assessment Patient is very cooperative and receptive to instructions. Continues to benefit from OT to promote increased indep w/ ADL's. Demo's potential for improvement Plan Progress Progressing toward goals If this is the last treatment note, it will serve as the discharge summary Yes End of Session Safety End of Session Safety Chair alarm set/activated;Call light within reach * Gina Moyer, PT - 07/11/2019 1:58 PM CDT 07/11/19 1300 Therapy Visit Subjective Family care meeting held in patient's room with patient, PT, OT, pastoral care and nursecase management present. DaughterKrystina, present via speaker phone. Educated on patient's overall progress with PT and PT POC. No equipment needs at this time for patient to return home. Goals for07/18/19, but may be ready sooner pending progress with PT/OT. Biggest barriers are LBD with OT and bed mob with PT. Patient agreeable to HH services and wants to restart meals on wheels. Reinforced need for WW with all mobility at home - as daughter reported she'll try to walk without AD at times at home. Also, per daughter, patient is to move into daughter's home in about 1 month. Patient agreeable to all education/instructions this session. Verified Two Patient Identifiers Yes Patient consents to therapy Yes Acute Inpatient PT Time Calculation PT Start Time 1325 PT Stop Time 1341 PT Time Calculation (min) 16 min * Marisa Wheatley, HEALTH IT SPECIALIST - 07/11/2019 11:46 AM CDT 07/11/19 0844 Therapy Visit Subjective Pt states she is feeling a little better than yesterday. Verified Two Patient Identifiers Yes Patient consents to therapy Yes Acute Inpatient PT Time Calculation PT Start Time 0844 PT Stop Time 0915 PT Time Calculation (min) 31 min Precautions Precautions Yes/No Yes General Precautions Bed Alarm;Chair Alarm;Fall Risk Instructed on Precautions Yes;Verbalizes understanding Pain Pain No Activity Tolerance Activity Tolerance Comments Pt fatigues easily. Rest breaks required during activities. Cognition Overall Cognitive Status WFL Other (Comment) Pt. is LOWER BRULE. TRANSFERS Sit to Stand SBA/supervision Other (Comment) Stand to sit with suprv and cues for hand placement. Gait Gait Assistance SBA/supervision Assistive Device 4 Wheeled walker Ambulation Distance (Feet) 100' x 2 Pattern Shuffle steps Weight Bearing Status Total Other (Comment) Slow gait. Exercises Sitting LE Exercise Ankle DF/PF, LAQ, hip flex, hip abd, GS x 10 reps each. (Pt moves very slowly and required rest between ex.) Patient/Family Training Transfer Training X Gait Training X Precautions X Exercise Program X PT Assessment PT Assessment Pt fatigued at end of session. Plan Progress Progressing toward goals If this is the last treatment note,it will serve as the discharge summary Yes End of Session Safety End of Session Safety Chair alarm set/activated;Call light within reach End of Session Comment Pt in gerichair at end of session. * Norma Guidry, OT - 07/11/2019 10:05 AM CDT Good progress towards all goals. Mod assist w/ LB Dressing, min assist UB dressing. SBA W/ groomingat stink/seated in chair. Min assist w/ bathing, SBA w/ toileting. Demo's good balance and safety, min vc's for hand placement and safety w/ transfers. * Norma Guidry OT - 07/11/2019 10:04 AM CDT 07/11/19 07 Therapy Visit OT Received On 07/11/19 Reason for admission Patient arrived to the ED on 07/01 with weakness, went home, and returned on 07/02 with positive urine cultures. She was found to have Bacteremia and admitted to acute care, transitioned to [facility] bed for rehab. Comorbidities Relevant to OT hx CAD nonobstructiveType 2DM, DL, HTN, hypothyroidism, and carotid artery stenosis Verified Two Patient Identifiers Yes Patient consents to therapy Yes Acute Inpatient OT Time Calculation OT Start Time 742 OT Stop Time 812 OT Time Calculation (min) 30 min Precautions General Precautions Bed Alarm;Chair Alarm;Fall Risk;Other(comment) (IV Site) Subjective Subjective Pt. reports she would like to get up and use the toilet and get cleaned up. Expresses that she would like to wear her own underwear today but doesn't want to wear her own clothes. Pain Pain Patient does not offer or c/o pain Activity Tolerance Endurance Tolerates 30 min activity with rests Cognition Overall Cognitive Status WFL Other (Comment) Pt. is LOWER BRULE. ADL Eating/Feeding Assistance Independent;Sitting in chair Eating/Feeding Deficit Setup Grooming Assistance Stand by;Standing at sink;Sitting in chair Grooming Deficit Setup;Supervision/safety Grooming Comment set-up to wash face while seated; brushes hair while standing at sink w/ SBA and good balance Bathing Assistance Minimal;Sitting in chair Bathing Deficit Setup;Steadying;Supervision/safety;Right lower leg including foot;Left lower leg including foot Bathing Comment Completed sponge bath seated on armless shower chair at bathroom sink. Assist w/ bathing feet only, otherwise SBA w/ all seated components. Stands w/ ww and completes emerson-care w/ CGAfor balance/safety. UE Dressing Assistance Minimal UE Dressing Deficit Setup;Thread RUE;Thread LUE UE Dressing Comment [facility] LE Dressing Assistance Moderate;Minimal;Sitting in chair;Alternating sit/stand LE Dressing Deficit Setup;Steadying;Requires assistive device for steadying;Verbal cueing;Supervision/safety;Increased time to complete;Don/doff R sock;Don/doff L sock;Thread RLE into underwear;Thread LLE into underwear;Use of adaptive equipment LE Dressing Comment Educated on use of risk and insurance consultant and sock-aid for LB dressing. Pt. able to thread underwear over feet w/out risk and insurance consultant w/ min/mod assist. Doffs socks w/ min assist using risk and insurance consultant. Min assist to don socks using sock-aid. Pulls underwear up over hips w/ SBA/CGA while standing w/ ww. Toileting Assistance Stand by Toileting Deficit Supervision/safety;Grab bar use Toileting Comment Pt. uses standard toilet for toileting. SBA to perform hygiene while seated on toilet. Bed Mobility Supine to Sit Min assist to left (using bed rail) Functional Transfers Sit to Stand SBA/supervision Toilet Transfers Supervision;Grab bars (standard toilet ) Functional Mobility SBA/CGA mob w/ ww to/from bathroom. Other (Comment) CGA w/ transfers from armless shower chair during bathing routine. Balance Sitting - Static Independent Sitting - Dynamic Independent Standing - Static SBA;Support of one upper extremity;Support of both upper extremities Standing - Dynamic CGA;SBA;Support of one upper extremity;Support of both upper extremities Patient/Family Training Self Cares LHAE use w/ LB dressing OT Assessment OT Assessment [facility]iva is making daily progress towards OT goals. Demrachael's improvements w/ LB dressing using LHAE, functional transfers, and endurance level. Continues to benefit from OT. Needs furthertraining/rehearsal w/ LHAE use during LB ADL's. Modified [place] Score Interval Daily Score 0-6 3 Moderate disability, requiring some help, but able to walk without assistance Plan Progress Progressing toward goals If this is the last treatment note, it will serve as the discharge summary Yes End of Session Safety End of Session Safety Call light within reach;Chair alarm set/activated * Shy Cosme MD - 07/10/2019 9:16 PM CDT Hospital Daily Progress Note History Complains of legs feeling weak and having a tremor of hands Physical Exam Filed Vitals: 07/09/19 0148 07/09/19 0800 07/09/19 1020 07/10/19 0950 BP: (!) 167/98 (!) 162/54 (!) 168/57 Pulse: 56 51 (!) 47 Resp: Temp: 97.2 ??F (36.2 ??C) 97.5 ??F (36.4 ??C) 97.2 ??F (36.2 ??C) TempSrc: Tympanic Tympanic Tympanic SpO2: 96% 96% 94% Weight: 62.3 kg (137 lb 5.6 oz) Height: Intake/Output Summary (Last 24 hours) at 07/10/20192115 Last data filed at 07/10/20192055 Gross per 24 hour Intake 780 ml Output 1275 ml Net -495 ml Physical Exam Constitutional: She is oriented to person, place, and time. She appears well- developed and well-nourished. HENT: Head: Normocephalic and atraumatic. Eyes: Conjunctivae are normal. Neck: Neck supple. Cardiovascular: Normal rate, normal heart sounds and intact distal pulses. Exam reveals no gallop. No murmur heard. Pulmonary/Chest: Effort normal and breath sounds normal. No respiratory distress. She has no wheezes. She has no rales. She exhibits no tenderness. Abdominal: Soft. Bowel sounds are normal. She exhibits no distension and no mass. There is no tenderness. There is no guarding. Musculoskeletal: She exhibits no edema, tenderness or deformity. Neurological: She is oriented to person, place, and time. Skin: Skin is warm. Lab Results Component Value Date NA 144 07/09/2019 K 4.1 07/09/2019 CL 108 07/09/2019 CO2 26.9 07/09/2019 AGAP 9.1 07/09/2019 BUN 8 07/09/2019 CR 0.70 07/09/2019 BUNCREATININ 11.4 07/09/2019 GFRNON 80 (L) 07/09/2019 GFR >90 07/09/2019 GLU 100 (H) 07/09/2019 CA 8.5 07/09/2019 Lab Results Component Value Date WBC 3.7 (L) 07/06/2019 HGB 11.8 (L) 07/06/2019 PLT 167 07/06/2019 Lab Results Component Value Date CHOL 149 03/13/2019 TRI 104 03/13/2019 HDL 66 03/13/2019 TP 6.1 (L) 07/06/2019 ALB 2.9 (L) 07/06/2019 ALT 29 07/06/2019 HGBA1C 6.5% 01/17/2019 TSH 7.321 (H) 05/12/2019 Cultures: Blood: No results found for this visit on 07/06/19 (from the past 168 hour(s)). Urine: No results found for this visit on 07/06/19 (from the past 168 hour(s)). Respiratory: No results found. Assessment Physical deconditioning Making progress in overall strength and mobility E. coli UTI with bacteremia Good clinical response to Rocephin Again oral Keflex a.m. Hypokalemia Oral KCl repletion CHD Nonobstructive Asymptomatic HTN Monitor BP Resume lisinopril Hypothyroidism Rx levothyroxine Depression Continue sertraline/trazodone GERD Famotidine Rx Hyperglycemia Check HbA1c Hypoalbuminemia Likely decrease appetite Due to infection CODE STATUS: Full code POA: Daughter Plan Continue Keflex through to 07/12/19 Continue PT/OT SHY COSME MD * Elmo Bravo CNA - 07/10/2019 4:16 PM CDT 07/10/19 1450 Recreational Therapy Visit Information Recreational Therapy Episode of Care Initial Patient Identification verified Yes Location Bedside Patient Perspective Awareness of Activity Plan within Ability Intact Leisure Satisfaction Intact Communication Status Social Skills Status Independent Leisure Interest Leisure Interest Socializing;Reading;TV/movies;Outdoors Treatment Session Focus (leisure activities ) Intervention Handouts given Response to Treatment Independent Assessment/Impression Patient Would Benefit from Continued Recreational Therapy Yes Treatment Plan (room visits offering bedside activities) Frequency 1-2 times per week Discharge and Summary Treatment Provided (left behind educational info of activity program) Discharge Summary upon discharge pt can cont with normal activities as sonja. Upon visit activities left behind a card to fill out and send to family. Activity Goal is to cont. With bedside visits offering coffee and conversation as pt enjoys visiting with staff. Activities will also offer magazines, projects, puzzles etc for patient enjoyment. * Marisa Wheatley PTA - 07/10/2019 2:08 PM CDT Pt is progressing towards PT goals, but tires easily. * Marisa Wheatley PTA - 07/10/2019 2:06 PM CDT 07/10/19 1253 Therapy Visit Subjective Pt states she is still tired, but will try to work with PT staff. Verified Two Patient Identifiers Yes Patient consents to therapy Yes Acute Inpatient PT Time Calculation PT Start Time 1253 PT Stop Time 1324 PT Time Calculation (min) 31 min Precautions Precautions Yes/No Yes General Precautions Bed Alarm;Chair Alarm;Fall Risk Instructed on Precautions Yes;Verbalizes understanding Pain Pain No Activity Tolerance Activity Tolerance Comments Pt fatigues easily. Rest breaks required during activities. Cognition Overall Cognitive Status WFL Other (Comment) Pt. is LOWER BRULE. Bed Mobility Sit to Supine Min assist to right (for LEs only.) TRANSFERS Sit to Stand SBA/supervision Other (Comment) Stand to sit with suprv and cues for hand placement. Gait Gait Assistance SBA/supervision Assistive Device 4 Wheeled walker Ambulation Distance (Feet) 100' x 2 Weight Bearing Status Total Other (Comment) Slow gait. Exercises Ankle Pumps x 10 Quad Sets x 10 Short Arc Quad x 10 with decreased ROM Heelslides x 10 with slide board and difficulty Glut Sets x 10 Hip Abduction x 10, AAROM with slide board Other (Comment) Isometric hip ADD with pillow Patient/Family Training Bed Mobility X Transfer Training X Gait Training X Precautions X Exercise Program X PT Assessment PT Assessment Pt fatigued at end of session. Encouragement needed for second trial of amb. Plan Progress Progressing toward goals If this is the last treatment note,it will serve as the discharge summary Yes End of Session Safety End of Session Safety Bed alarm set/activated;Call light within reach End of Session Comment Pt in bed at end of session. * Laura Cheatham RN - 07/10/2019 1:09 PM CDT INTERDISCIPLINARY CARE CONFERENCE: TEAM ATTENDANCE: CASE MANAGEMENT, UR, NURSING, PT, OT, CARDIOPULMONARY, CISCO CONSULTANT, HOSPITALIST HOME HEALTH,PASTORAL CARE, PHARMACY Meeting held at 1100. PT GOALS 07/17. PT REPORTS PATIENT IS PROGRESSING TOWARD GOALS 1330 SPOKE WITH PATIENT DAUGHTER . SET FAMILY MEETING Wednesday AT 1320 * Mary Dickey OT - 07/10/2019 11:52 AM CDT 07/10/19 0832 Therapy Visit Reason for admission Patient arrived to the ED on 07/01 with weakness, went home, and returned on 07/02 with positive urine cultures. She was found to have Bacteremia and admitted to acute care, transitioned to [facility] bed for rehab. Comorbidities Relevant to OT hx CAD nonobstructiveType 2DM, DL, HTN, hypothyroidism, and carotid artery stenosis Verified Two Patient Identifiers Yes Patient consents to therapy Yes Acute Inpatient OT Time Calculation OT Start Time 831 OT Stop Time 904 OT Time Calculation (min) 33 min Precautions General Precautions Bed Alarm;Chair Alarm;Fall Risk Instructed on Precautions Yes;Verbalizes understanding Subjective Subjective States that she feels weak. Pain Pain Patient does not offer or c/o pain Activity Tolerance Endurance Tolerates 20 - 30 min activity with rests Activity Tolerance Comments Fatigues w/ ADL routine Cognition Overall Cognitive Status WFL ADL Grooming Assistance Stand by;Sitting in chair;Standing at sink Grooming Deficit Setup;Supervision/safety;Increased time to complete Grooming Comment Washes hands and face while seated. Brushes hair while standing at sink w/ good standing balance. Bathing Assistance Minimal Bathing Deficit Increased time to complete;Supervision/safety;Right lower leg including foot;Left lower leg including foot Bathing Comment Completes bathing from armless chair at sink. Transfers on/off armless chair w/ CGA UE Dressing Assistance Minimal UE Dressing Comment [facility] Assistance Maximal;Sitting in chair;Alternating sit/stand LE Dressing Deficit Setup;Requires assistive device for steadying;Verbal cueing;Supervision/safety;Increased time to complete;Thread RLE into underwear;Thread LLE into underwear LE Dressing Comment Suprv w/ pulling underwear up over hips. Struggles w/ distal reaching for donning socks and threading underwear. Toileting Assistance CGA Toileting Deficit Grab bar use;Supervision/safety Toileting Comment Uses standard toilet Bed Mobility Supine to Sit Min assist to left Functional Transfers Sit to Stand SBA/supervision Bed to Chair Contact guard assist Functional Mobility CGA/Suprv w/ mob to and from bathroom using 4ww. CGA needed when backing up to chair. Needs VC s for hand placement w/ all transfers Patient/Family Training Self Cares Tech's to promote safety and indep OT Assessment OT Assessment Aviva is motivated and cooperative. Making progress but still not yet at PLOF. Demo's potential for continued progress w/ OT and ADL training. Plan Progress Progressing toward goals If this is the last treatment note, it will serve as the discharge summary Yes End of Session Safety End of Session Safety Chair alarm set/activated;Call light within reach * Marisa Wheatley, GENI - 07/10/2019 11:15 AM CDT 07/10/19 0914 Therapy Visit Subjective Pt states she is very sleepy this AM. Pt reports she took a sleeping pill last night around 11:00 PM. Pt agrees to amb once in hallway and perform some ex in bed. Verified Two Patient Identifiers Yes Patient consents to therapy Yes Acute Inpatient PT Time Calculation PT Start Time 0914 PT Stop Time 0937 PT Time Calculation (min) 23 min Precautions Precautions Yes/No Yes General Precautions Bed Alarm;Chair Alarm;Fall Risk Pain Pain No Activity Tolerance Activity Tolerance Comments Fatigues easily. O2 sat on room air 95% after amb. Cognition Overall Cognitive Status WFL Other (Comment) Pt. is LOWER BRULE. Bed Mobility Sit to Supine Min assist to right (for LEs only) TRANSFERS Sit to Stand SBA/supervision Other (Comment) Sit to stand with suprv and cues for hand placement. Gait Gait Assistance SBA/supervision;Contact guard assist Assistive Device 4 Wheeled walker Ambulation Distance (Feet) 125' Weight Bearing Status Total Exercises Ankle Pumps x 10 Quad Sets x 10 Short Arc Quad x 10 with decreased ROM Heelslides x 10 AAROM Glut Sets x 10 Hip Abduction x 10 AAROM Other (Comment) Isometric hip ADD with pillow Patient/Family Training Bed Mobility X Transfer Training X Gait Training X Precautions X Exercise Program X Other (Comment) Reviewed PT POC PT Assessment PT Assessment Pt fatigued at end of session, but was tired initially as well. Pt required assistance with some supine ex. Plan Progress Progressing toward goals If this is the last treatment note,it will serve as the discharge summary Yes End of Session Safety End of Session Safety Bed alarm set/activated;Call light within reach End of Session Comment Pt in bed at end of session and was hoping to get some sleep before lunch. * Claribel Diaz RN - 07/09/2019 9:00 AM CDT Problem: Discharge Planning Goal: Knowledge of discharge instructions Outcome: Progressing Problem: Mobility - Impaired Goal: Able to use ambulatory assistive device appropriately Outcome: Progressing Goal: Knowledge of need for increased mobility Outcome: Progressing Problem: Pain Goal: Achieve acceptable pain level Outcome: Progressing Problem: Self-care Deficit Goal: Able to perform at functional level of ADLs Outcome: Progressing Problem: Skin Integrity - Impaired Goal: Absence of new skin breakdown Outcome: Progressing Goal: Wound healing Outcome: Progressing Problem: Venous Thromboembolism - Risk of Goal: Absence of venous thromboembolism Outcome: Progressing * Sindy Escudero, PT - 07/08/2019 11:23 AM CDT Patient making progress with mobility. * Sindy Escudero, PT - 07/08/2019 11:21 AM CDT 07/08/19 1100 Therapy Visit Subjective Patient states she is doing ok today, but a little tired. Verified Two Patient Identifiers Yes Patient consents to therapy Yes Acute Inpatient PT Time Calculation PT Start Time 1054 PT Stop Time 1115 PT Time Calculation (min) 21 min Precautions Precautions Yes/No Yes General Precautions Bed Alarm;Chair Alarm;Fall Risk Pain Pain No TRANSFERS Sit to Stand SBA/supervision Other (Comment) stand to sit with vc for hand placement and supervision Gait Gait Assistance SBA/supervision Assistive Device 4 Wheeled walker Ambulation Distance (Feet) 100' Pattern (flexed posture) Other (Comment) decreased yasmin Balance Sitting - Static Independent Sitting - Dynamic Modified independence Standing - Static CGA Standing - Dynamic CGA;Support of both upper extremities Exercises Sitting LE Exercise LAQs, marching, hip abd and ankle pumps x 5 each B Patient/Family Training Transfer Training yes Gait Training yes Exercise Program yes PT Assessment PT Assessment Patient did well with gait, but struggled more with ther ex due to fatigue. Plan PT plan for next session Continue PT increasing ex and mobility as tolerated. If this is the last treatment note,it will serve as the discharge summary Yes End of Session Safety End of Session Safety Chair alarm set/activated;Call light within reach * Sindy Escudero, PT - 07/07/2019 4:28 PM CDT 07/07/19 1500 Therapy Visit Subjective Patient states she is feeling fine this afternoon Verified Two Patient Identifiers Yes Patient consents to therapy Yes Acute Inpatient PT Time Calculation PT Start Time 1530 PT Stop Time 1547 PT Time Calculation (min) 17 min Precautions Precautions Yes/No Yes General Precautions Bed Alarm;Chair Alarm;Fall Risk;Other(comment) (IV access) Pain Pain Patient does not offer or c/o pain Bed Mobility Supine to Sit Min assist to left TRANSFERS Sit to Stand SBA/supervision;Contact guard assist Other (Comment) stand to sit with supervision and vc for hand placement. Gait Gait Assistance SBA/supervision;Contact guard assist Assistive Device 4 Wheeled walker Ambulation Distance (Feet) 100' Pattern (flexed forward) Other (Comment) decreased yasmin and flexed posture Balance Sitting - Static Modified independence Sitting - Dynamic SBA Standing - Static CGA Standing - Dynamic CGA;Support of both upper extremities Exercises Ankle Pumps x 15 B Quad Sets x 10 B Glut Sets x 10 Hip Flexion x 10 B sitting Hip Abduction x 10 B sitting Sitting LE Exercise LAQs x 10 B PT Assessment PT Assessment Patient fatigued after gait and ex. Plan PT plan for next session Continue PT increasing ex and mobility as tolerated. If this is the last treatment note,it will serve as the discharge summary Yes End of Session Safety End of Session Safety Chair alarm set/activated;Call light within reach * Sindy Escudero PT - 07/07/2019 4:28 PM CDT 07/07/19 1500 Therapy Visit Subjective Patient states she is feeling fine this afternoon Verified Two Patient Identifiers Yes Patient consents to therapy Yes Acute Inpatient PT Time Calculation PT Start Time 1530 PT Stop Time 1547 PT Time Calculation (min) 17 min Precautions Precautions Yes/No Yes General Precautions Bed Alarm;Chair Alarm;Fall Risk;Other(comment) (IV access) Pain Pain Patient does not offer or c/o pain Bed Mobility Supine to Sit Min assist to left TRANSFERS Sit to Stand SBA/supervision;Contact guard assist Other (Comment) stand to sit with supervision and vc for hand placement. Gait Gait Assistance SBA/supervision;Contact guard assist Assistive Device 4 Wheeled walker Ambulation Distance (Feet) 100' Pattern (flexed forward) Other (Comment) decreased yasmin and flexed posture Balance Sitting - Static Modified independence Sitting - Dynamic SBA Standing - Static CGA Standing - Dynamic CGA;Support of both upper extremities Exercises Ankle Pumps x 15 B Quad Sets x 10 B Glut Sets x 10 Hip Flexion x 10 B sitting Hip Abduction x 10 B sitting Sitting LE Exercise LAQs x 10 B PT Assessment PT Assessment Patient fatigued after gait and ex. Plan PT plan for next session Continue PT increasing ex and mobility as tolerated. If this is the last treatment note,it will serve as the discharge summary Yes End of Session Safety End of Session Safety Chair alarm set/activated;Call light within reach * Shy Cosme MD - 07/07/2019 1:42 PM CDT 07/07/19 1117 Therapy Visit OT Received On 07/07/19 Reason for admission Patient arrived to the ED on 07/01 with weakness, went home, and returned on 07/02 with positive urine cultures. She was found to have Bacteremia and admitted to acute care, transitioned to [facility] bed for rehab. Comorbidities Relevant to OT hx CAD nonobstructiveType 2DM, DL, HTN, hypothyroidism, and carotid artery stenosis Ordering Provider Dr. Cosme Verified Two Patient Identifiers Yes Patient consents to therapy Yes Acute Inpatient OT Time Calculation OT Start Time 1117 OT Stop Time 1128 (Eval charge only; Total eval time= 45 ) OT Time Calculation (min) 11 min Precautions General Precautions Bed Alarm;Chair Alarm;Fall Risk;Other(comment) (IV access) Subjective Subjective Pt. reports she just got cleaned up w/ nursing staff and got back in bed not long ago. Agreeable to working w/ OT. Home Living Type of Home Apartment ([facility]) Home Layout One level Home Accessibility 0 Steps to enter;Elevator Bathroom Shower/Tub Tub/shower unit Bathroom Toilet Elevated height toilet (ADA height);Grab bars around toilet Bathroom Equipment Grab bars in shower;Tub/shower chair with back Bathroom Accessibility Accessible Home Equipment 4 Wheeled walker Prior Function Level of [place] Independent with ADLs;Independent with functional transfers;Independent with ambulation;Independent with homemaking with ambulation Device used at baseline 4 Wheeled walker Baseline Ambulation Distance/Assistance household and short community distances Lives With Alone Receives Help From Family ADL Assistance Independent Homemaking Assistance Independent Comments Pt. does not drive, dtr. assists w/ community mobility needs. Pain Pain Patient does not offer or c/o pain Objective Objective Pt. in bed upon arrival. Completed OT evaluation as documented. Pt. in bed at end of session. Activity Tolerance Endurance Tolerates 10 - 20 min activity with rests Cognition Overall Cognitive Status WFL Arousal/Alertness Appropriate responses to stimuli Attention Span Appears intact Memory Appears intact Orientation Level Oriented X4 Other (Comment) Pt. is LOWER BRULE. RUE Assessment RUE Assessment WFL RUE Comment MMT grossly 4-/5 at all planes/joints. LUE Assessment LUE Assessment WFL LUE Comment MMT grossly 4-/5 at all planes/joints. Hand Function Hand Dominance Right Gross Grasp Functional Coordination Functional Sensation Light Touch No apparent deficits ADL LE Dressing Assistance Maximal;Sitting at EOB LE Dressing Deficit Don/doff R sock;Don/doff L sock LE Dressing Comment Max assist to manage socks d/t decreased distal reach. 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 Based on simulation and clinical impression, manages UB ADL's w/ CGA, mod/max assist w/ LB ADL's. Bed Mobility Supine to Sit Min assist to left (using bed rail, HOB slightly elevated) Sit to Supine Min assist to right (using bed rail) Balance Sitting - Static Modified independence;Support of one upper extremity;Support of both upper extremities Sitting - Dynamic SBA;Modified independence;Support of one upper extremity;Support of both upper extremities Assessment Occupational Profile and History Complexity Low (Brief) Performance Skills Deficits Bathing/showering;Dressing;Functional mobility;Personal hygiene and grooming;Toileting Performance Deficit Level Moderate (3-5 deficits) Clinical Decision Making Moderate (min/mod modifications) Complexity Level of Evaluation Low Prognosis Good OT Assess/Eval Other (Comment) This pt. presents as an 83 y/o female s/p recent onset of medical complications along w/ prolonged hospital course. She presents w/ impaired endurance/activity tolerance, generalized weakness, and decreased indep/safety w/ ADLs/mob. Will benefit from skilled OT while in swing bed to promote maximal level of performance for safe d/c back to apartment, where pt. livesalone. Modified Luz Maria Score Interval Baseline Score 0-6 2 Slight disability, unable to carry out all previous activities, but able to look after own affairs without assistance Patient/Family Training Other (Comment) OT POC/goals Recommendation OT Recommendation Home OT;Other (Comment) (OT during swing bed ) OT Equipment Recommended To Be Determined;Currently has DME in Place Plan OT Treatment/Intervention Self-care training;Therapeutic exercises;Therapeutic activities;Patient/family training;Functional activity;Safety OT Frequency 5 times/week (1-2x/day) OT plan for next session ADL/transfer training If this is the last treatment note, it will serve as the discharge summary Yes End of Session Safety End of Session Safety Call light within reach;Bed alarm set/activated * Marcin Rodriguez, RD - 07/07/2019 1:10 PM CDT Dietitian Nutrition Assessment Aviva Ch, 1935, 83-year-old female admitted for No admission diagnoses are documented for this encounter.. Nutrition Recommendations: Nutrition Diagnosis: no nutrition diagnosis at this time Past Medical History Past Medical History: Diagnosis Date ??? Cancer (CMS/HCC) Past cancer survivor. ??? Diabetes (CMS/HCC) ??? GERD (gastroesophageal reflux disease) ??? Hyperlipidemia ??? Hypertension ??? Hypothyroidism ??? Insomnia ??? Sepsis (CMS/HCC) ??? Vitamin D deficiency Referral From: Nutrition Screening Assessment: Initial Assessment Anthropometrics: Wt Readings from Last 3 Encounters: 07/06/19 63.4 kg (139 lb 12.4 oz) 07/06/19 63.4 kg (139 lb 12.4 oz) 07/02/19 61.2 kg (135 lb) Ht Readings from Last 1 Encounters: 07/06/19 5' 4 (1.626 m) Body mass index is 23.99 kg/m??. BMI Assessment: Normal [place] Body Weight: 120# Percent [place] Body Weight: 115% Nutrition: Current Diet Order: Diet general Appropriate Diet Comment: not able to speak with patient at this time Chewing/swallowing problems: No Food allergies/intolerances: none Cultural/Mormon food preferences: none Current diet appropriate? Yes Current intake sufficient to meet nutritional needs? No Pain affecting PO intake? No Estimated Nutrient Needs: Calories: 1575 kcal/day, based on 25 kcal/kg Protein: 63 gm/day, based on 1.0gm/kg Labs: HGB A1C Date Value Ref Range Status 01/17/2019 6.5% Final Nutrition Risk: Low Discharge nutrition plan: Discharge needs assessed. Will provide/update discharge instructions as needed. (See Nutrition Prescription above) MARCIN RODRIGUEZ RD 07/07/19, 1:10 PM * AMANDA Blum - 07/07/2019 12:50 PM CDT Interdisciplinary Team conference held. In attendance; case management, UR, nursing, PT, OT, cardiopulmonary, C[employer] CONSULTANT, Hospitalist, Pastoral Care, and Pharmacy. Meeting held at 11:00. Continue PT goals through 07/18/2019. Left message for patient daughter to set up family meeting. * June Laughlin, PT - 07/07/2019 9:42 AM CDT 07/07/19 0900 Therapy Visit Ordering Provider Ba PT Received On 07/07/19 Treatment Day (Swing eval) Subjective Patient was supine in bed on arrival to the room and agrees to participate in therapy, but has to use the bathroom and get ready first. Reason for admission Patient arrived to the ED on 07/01 with weakness, went home, and returned on 07/02 with positive urine cultures. She was found to have Bacteremia and was transitioned to [facility] swing bed for rehab. Relevant Comorbidities/ Personal Factors to PT HTN, hypercholesterremia, CA, DM, GERD, hypothyroid,insomnia, sepsis, RTC repair Verified Two Patient Identifiers Yes Patient consents to therapy Yes Acute Inpatient PT Time Calculation PT Start Time 0813 PT Stop Time 0832 PT Time Calculation (min) 19 min PT Therapy Interruption (min) 45 minute evaluation and 4 minute treatment Precautions Precautions Yes/No Yes General Precautions Bed Alarm;Chair Alarm;Fall Risk (IV access ) Home Living Type of Home Apartment ([facility] apartment ) Home Layout One level Home Accessibility 0 Steps to enter;Elevator Home Equipment 4 Wheeled walker Prior Function Level of [place] Independent with ADLs;Independent with functional transfers;Independent with ambulation;Independent with homemaking with ambulation (Does not drive, Daughter assist with transport ) Device used at baseline 4 Wheeled walker Baseline Ambulation Distance/Assistance Short community distances Lives With Alone Receives Help From Family ADL Assistance Independent Homemaking Assistance Independent Pain Pain No Activity Tolerance Endurance Tolerates 10 - 20 min activity with rests Cognition Overall Cognitive Status WFL Arousal/Alertness Appropriate responses to stimuli Attention Span Appears intact Memory Appears intact Orientation Level Oriented X4 Sensation Light Touch No apparent deficits Overall Extremity Assessment Upper Extremity See OT eval Lower Extremity Comment Paitent presented with 4/5 strength throughout B LE with MMT Bed Mobility Supine to Sit Min assist to left (Patient just had IV placed in R arm, fearful to use ) Other (Comment) Patient required min A to lift trunk into sitting position. She had an IV placed inthe R arm and was fearful to use her arm to assist with bed mobility. Toilet transfer required CGA for stand to sit, but min A for sit to stand from low toilet seat. She was able to perform proper hygiene with CGA for balance. She performed hand washing and cleaned her dentures at the sink with CGAfor safety this AM. No LOB were noted with dynamic standing balance and intermittent UE support. TRANSFERS Stand Pivot Transfers SBA/supervision Sit to Stand Contact guard assist;SBA/supervision (from EOB ) Other (Comment) Stand to sit Supervision. Patient demonstrated good safety awareness with transfers Gait Gait Assistance SBA/supervision;Contact guard assist Assistive Device 4 Wheeled walker Ambulation Distance (Feet) 100' Pattern (forward flexed posture ) Weight Bearing Status Total Other (Comment) Patient presents with decreased yasmin and a forward flexed posture with gait. Shedemonstrates good balance when using 4ww for UE support and requires occasional CGA for safety. Stairs Other (Comment) NT Balance Sitting - Static Support of both upper extremities;Modified independence Sitting - Dynamic Modified independence;Support of both upper extremities Standing - Static SBA;Support of both upper extremities Standing - Dynamic CGA;SBA;Support of both upper extremities Balance Test Tinetti: 19 Patient/Family Training Bed Mobility x Transfer Training x Gait Training x Precautions x Other (Comment) PT goals and POC Assessment Personal Factors/Comorbidities Impacting Care 3-4 personal factors/comorbidities Examination of Body Systems Low (1-2 Elements) Objectives of Body Systems Impaired bed mobility;Impaired transfers;Impaired ambulation;Impaired balance;Decreased LE strength;Decreased endurance Clinical Presentation of Patient Stable uncomplicated Complexity Level of Evaluation Low Prognosis Good PT Assess/Eval Other (Comment) Patient is a 83 year old who presents with decreased strength and endurance in B LE, impaired balance based on the Tinetti, and lack of independence with functional mobility. She would benefit from skilled PT to promote strength, edurance and balance in order to reduce risk of falls and optimize independence with functional mobility, such as gait, transfers and bed mobility. Recommendation PT Recommendation Swing Bed Unit;Home PT PT Equipment Recommended To Be Determined Plan If this is the last treatment note,it will serve as the discharge summary Yes End of Session Safety End of Session Safety Chair alarm set/activated;Call light within reach End of Session Comment Ended session with patient seated in recliner. Ordered breakfast for the patient after session Cosigned by Shy Cosme MD at 07/07/2019 11:53 AM CDT * AMANDA Blum - 07/07/2019 7:28 AM CDT Referral Data Referral Reason Discharge Planning Source of Information Patient Patient Information OB Patient < 19 yrs old No Primary Caregiver Self Support System Immediate family Baseline ADL's Functional Status Independent Living Arrangements Alone Type of Residence Private residence ([facility]) Ambulation Assistance No Active DME Four wheel walker Bathing/Grooming Assistance No Dressing Assistance No Behavior Oriented;Cooperative Communication Talks;Understands speaking;Understands Afghan Current Services Being Provided Home Health ?? (MAY WANT HOME HEALTH AT DISCHARGE. WOULD [...] of major lifestyle changes, including change in residential living environment No Family concerns/conflicts No Inadequate social and/or financial supports No Abuse and/or neglect of elder, adult or child No Psychiatric and/or substance abuse issues affecting current hospitalization No Homelessness with lack of safe discharge environment No Need for guardianship petition No Chaptered patient No Patient admitted to [facility] for continued PT/OT. Plan to discharge to her apartment with possible home health once goals are met. documented in this encounter H&P Notes * Shy Cosme MD - 07/07/2019 6:39 PM CDT HISTORY & PHYSICAL Patient's admission date: 07/06/2019 Attending provider: Shy Cosme MD Author: SHY COSME MD Chief complaint: No chief complaint on file. HPI: This is a 83-year-old female with a history of CHD HTN, dyslipidemia, hypothyroidism, GERD, dementia and dementia presented to the ED on 07/02/2019 with a fever complaining of weakness and difficulty urinating. Blood and urine cultures were performed and the patient received Rocephin IV. The patientwas discharged home on oral antibiotics. The next day blood cultures were gram- negative rods the patient was contacted to come back to the ED for expected admission. Cultures grew out E. coli in urine and blood. Patient was initiated Rocephin responded to therapy. The patient had evaluation by PT was noted to have acute weakness and the recommendations were for the patient to receive physical therapy. The patient agreed she was transferred into the [facility] 1 day prior to admission. The patient currently is without complaints of headache, shortness of breath, chest pain, palpitations, nausea, emesis or abdominal pain. Past Medical History: Diagnosis Date ??? Cancer [...] PROC UNLISTED ??? REPAIR ROTATOR CUFF,ACUTE Current Facility-Administered Medications Medication ??? acetaminophen (TYLENOL) tablet 650 mg ??? ceFAZolin (ANCEF) 2 g in sterile water 20 mL IV ??? [START ON 07/08/2019] cephALEXin (KEFLEX) capsule 250 mg ??? [START ON 07/08/2019] donepezil (ARICEPT) tablet 10 mg ??? famotidine (PEPCID) injection 20 mg Or ??? famotidine (PEPCID) tablet 20 mg ??? heparin (porcine) injection 5,000 Units ??? insulin lispro (HUMALOG) injection 0-14 Units And ??? insulin lispro (HUMALOG) injection 0-7 Units ??? [START ON 07/08/2019] levothyroxine (SYNTHROID) tablet 50 mcg ??? lisinopril (PRINIVIL) tablet 10 mg ??? obswlziex-kuqgsbzv-ckawwpwimaw (MYLANTA MAXIMUM STRENGTH) 0127-1754-578 mg/30mL suspension ??? melatonin tablet 3 mg ??? ondansetron (ZOFRAN) injection 4 mg ??? pravastatin (PRAVACHOL) tablet 40 mg ??? Senna (SENOKOT) 8.6 MG tablet 8.6 mg ??? [START ON 07/08/2019] sertraline (ZOLOFT) tablet 100 mg ??? traZODone (DESYREL) tablet 50 mg Social History Tobacco Use ??? Smoking status: Never Smoker ??? Smokeless tobacco: Never Used Substance Use Topics ??? Alcohol use: No Frequency: Never ??? Drug use: No Family History Problem Relation Name Age of Onset ??? Diabetes Other ??? Breast Cancer Other ??? Other (cardiac disorder) Other ??? Heart Attack Mother Allergies Allergen Reactions ??? Septra [Sulfamethoxazole-Trimethoprim] Rash Review of Systems: Review of Systems Constitutional: Negative. HENT: Positive for hearing loss. Eyes: Negative. Respiratory: Negative. Cardiovascular: Negative. Gastrointestinal: Negative. Genitourinary: Positive for frequency. Skin: Negative. Vital signs: Filed Vitals: 07/06/19 1641 07/06/19 1645 07/07/19 0915 BP: (!) 151/59 137/43 Pulse: (!) 48 54 Resp: 20 Temp: 98.4 ??F (36.9 ??C) 98.4 ??F (36.9 ??C) 98.2 ??F (36.8 ??C) TempSrc: Tympanic Tympanic SpO2: 97% 97% 94% Weight: 63.4 kg (139 lb 12.4 oz) Height: 5' 4 (1.626 m) Intake/Output Summary (Last 24 hours) at 07/07/2019 1839 Last data filed at 07/07/2019 1700 Gross per 24 hour Intake 570 ml Output 1400 ml Net -830 ml PHYSICAL EXAM: Physical Exam Constitutional: She is oriented to person, place, and time. She appears well- developed and well-nourished. Eyes: Conjunctivae are normal. Neck: Neck supple. No tracheal deviation present. No thyromegaly present. Cardiovascular: Normal rate, regular rhythm and normal heart sounds. Pulmonary/Chest: Effort normal and breath sounds normal. No respiratory distress. She exhibits no tenderness. Abdominal: Soft. Bowel sounds are normal. She exhibits no distension and no mass. There is no tenderness. There is no rebound and no guarding. Lymphadenopathy: She has no cervical adenopathy. Neurological: She is alert and oriented to person, place, and time. Skin: Skin is warm and dry. Labs: Recent Labs Lab 07/04/19 0714 07/05/19 0637 07/06/19 0816 WBC 3.8* 3.2* 3.7* RBC 3.90* 3.93* 4.18* HGB 11.3* 11.6* 11.8* HCT 34.6* 34.7* 36.3 MCV 88.7 88.3 86.8 MCH 29.0 29.5 28.2 MCHC 32.7 33.4 32.5 PLT 127* 145* 167 RDW 13.5 13.7 13.6 MPV 10.7 10.7 10.4 PERNEU 78.7* 70.6 72.4* PERLYM 10.8* 14.9* 15.6* PERMON 9.2 12.3 7.7 LY[facility] 0.41* 0.47* 0.57* Recent Labs Lab 07/04/19 0714 07/05/19 0637 07/06/19 0816 NA 141 143 144 K 2.7* 4.0 3.4* CL 105 109* 107 CO2 23.2 23.2 25.8 AGAP 12.8 10.8 11.2 BUN 24* 15 9 CR 0.87 0.68 0.80 BUNCREATININ 27.6* 22.1 11.2 GFRNON 62* 81* 68* GFR 71* >90 79* GLU 76 87 93 CA 8.0* 8.1* 8.4* TP 5.7* 5.4* 6.1* ALB 2.6* 2.7* 2.9* TBIL 0.4 0.2 0.3 ALKP 59 72 73 AST 24 25 39* ALT 21 25 29 No results for input(s): PTT, INR in the last 168 hours. Recent Labs Lab 07/02/19 1600 07/03/19 1342 TROP <0.017 <0.017 Cultures: Blood: No results found for this visit on 07/06/19 (from the past 168 hour(s)). Urine: No results found for this visit on 07/06/19 (from the past 168 hour(s)). Radiology studies: Assessment: Physical deconditioning Making progress in overall strength and mobility E. coli UTI with bacteremia Good clinical response to Rocephin Again oral Keflex a.m. Hypokalemia Oral KCl repletion CHD Nonobstructive Asymptomatic HTN Monitor BP Resume lisinopril Hypothyroidism Rx levothyroxine Depression Continue sertraline/trazodone GERD Famotidine Rx Hyperglycemia Check HbA1c Hypoalbuminemia Likely decrease appetite Due to infection CODE STATUS: Full code POA: Daughter Plan: Complete IV ABX today PT/OT DVT prophylaxis with heparin SHY COSME MD documented in this encounter Nursing Notes * Aliya Baca RN - 07/15/2019 1:45 PM CDT Patient complained of having chest pain under left breast area. Sharp pain, without radiation. Patient felt short of breath and shaky. Patient felt chilled. Vitals checked and BP 180/54 and HR of 50.Dr. Wilburn notified and he arrived at bedside. Orders received to give SL nitroglycerin X1 and chestpain relieved. * Nuzhat Russell RN - 07/08/2019 1:33 PM CDT Daughter Krystina was called and given update. documented in this encounter Plan of Treatment Not on file documented as of this encounter Goals Goal Patient Goal Type Associated Problems Recent Progress Patient-Stated? Author [facility] Support System General No Laura Cheatham RN documented as of this encounter Procedures Procedure Name Priority Date/Time Associated Diagnosis Comments BASIC METABOLIC PANEL Routine 07/18/2019 6:29 AM CDT CBC W/DIFF AUTOMATED Routine 07/18/2019 6:29 AM CDT AMYLASE Routine 07/18/2019 6:29 AM CDT MAGNESIUM Routine 07/18/2019 6:29 AM CDT LIPASE Routine 07/18/2019 6:29 AM CDT USE ECHOCARDIOGRAM Today 07/17/2019 11 :25 AM CDT BASIC METABOLIC PANEL Routine 07/17/2019 6:22 AM CDT CBC W/DIFF AUTOMATED Routine 07/17/2019 6:22 AM CDT AMYLASE Routine 07/17/2019 6:22 AM CDT MAGNESIUM Routine 07/17/2019 6:22 AM CDT LIPASE Routine 07/17/2019 6:22 AM CDT BASIC METABOLIC PANEL Routine 07/16/2019 6:29 AM CDT LIPID PANEL Routine 07/16/2019 6:29 AM CDT CBC W/DIFF AUTOMATED Routine 07/16/2019 6:29 AM CDT AMYLASE Routine 07/16/2019 6:29 AM CDT MAGNESIUM Routine 07/16/2019 6:29 AM CDT LIPASE Routine 07/16/2019 6:29 AM CDT TROPONIN, QUANT TIMED 07/16/2019 3:10 AM CDT TROPONIN, QUANT TIMED 07/15/2019 9:40 PM CDT POCT GLUCOSE - MARISCAL DOCKED DEVICE Routine 07/15/2019 5:31 PM CDT URINALYSIS WI REFLEX TO CULTURE Routine 07/15/2019 4:15 PM CDT TSH W/REFLEX Routine 07/15/2019 2:34 PM CDT PRO-BRAIN NATRIURETIC PEPTIDE Routine 07/15/2019 2:34 PM CDT PROTHROMBIN TIME, VENOUS Routine 07/15/2019 2:34 PM CDT BASIC METABOLIC PANEL Routine 07/15/2019 2:34 PM CDT HEPATIC FUNCTION PANEL Routine 0 2:34 PM CDT D-DIMER, QUANTITATIVE Routine 07/15/2019 2:34 PM CDT CBC W/DIFF AUTOMATED Routine 07/15/2019 2:34 PM CDT THYROXINE, FREE (FT4) Routine 07/15/2019 2:34 PM CDT TROPONIN, QUANT TIMED 07/15/2019 2:34 PM CDT MAGNESIUM Routine 07/15/2019 2:34 PM CDT ECG 12-LEAD STAT 07/15/2019 1:37 PM CDT POCT GLUCOSE - MARISCAL DOCKED DEVICE Routine 07/15/2019 11:47 AM CDT POCT GLUCOSE - MARISCAL DOCKED DEVICE Routine 07/15/2019 8:24 AM CDT POCT GLUCOSE - MARISCAL DOCKED DEVICE Routine 07/14/2019 11:10 AM CDT BASIC METABOLIC PANEL Routine 07/14/2019 5:43 AM CDT POCT GLUCOSE - MARISCAL DOCKED DEVICE Routine 07/13/2019 8:38 PM CDT POCT GLUCOSE - MARISCAL DOCKED DEVICE Routine 07/13/2019 5:56 PM CDT POCT GLUCOSE - MARISCAL DOCKED DEVICE Routine 07/13/2019 12:16 PM CDT HEMOGLOBIN, GLYCOSYLATED Routine 07/13/2019 11:35 AM CDT CBC W/DIFF AUTOMATED Routine 07/13/2019 11:35 AM CDT MAGNESIUM Routine 07/13/2019 11:35 AM CDT POCT GLUCOSE - MARISCAL DOCKED DEVICE Routine 07/13/2019 6:18 AM CDT POCT GLUCOSE - MARISCAL DOCKED DEVICE Routine 07/12/2019 8:40 PM CDT POCT GLUCOSE - MARISCAL DOCKED DEVICE Routine 07/12/2019 4:49 PM CDT POCT GLUCOSE - MARISCAL DOCKED DEVICE Routine 07/12/2019 11:41 AM CDT POCT GLUCOSE - MARISCAL DOCKED DEVICE Routine 07/12/2019 4:51 AM CDT POCT GLUCOSE - MARISCAL DOCKED DEVICE Routine 07/11/2019 8:23 PM CDT POCT GLUCOSE - MARISCAL DOCKED DEVICE Routine 07/11/2019 11:40 AM CDT POCT GLUCOSE - MARISCAL DOCKED DEVICE Routine 07/11/2019 6:24 AM CDT POCT GLUCOSE - MARISCAL DOCKED DEVICE Routine 07/10/2019 8:42 PM CDT POCT GLUCOSE - MARISCAL DOCKED DEVICE Routine 07/10/2019 5:09 PM CDT POCT GLUCOSE - MARISCAL DOCKED DEVICE Routine 07/10/2019 11:23 AM CDT POCT GLUCOSE - MARISCAL DOCKED DEVICE Routine 07/10/2019 6:51 AM CDT POCT GLUCOSE - MARISCAL DOCKED DEVICE Routine 07/09/2019 8:44 PM CDT POCT GLUCOSE - MARISCAL DOCKED DEVICE Routine 07/09/2019 5:58 PM CDT POCT GLUCOSE - MARISCAL DOCKED DEVICE Routine 07/09/2019 11:52 AM CDT POCT GLUCOSE - MARISCAL DOCKED DEVICE Routine 07/09/2019 10:17 AM CDT POCT GLUCOSE - MARISCAL DOCKED DEVICE Routine 07/09/2019 9:05 AM CDT BASIC METABOLIC PANEL Routine 07/09/2019 6:28 AM CDT POCT GLUCOSE - MARISCAL DOCKED DEVICE Routine 07/08/2019 9:14 PM CDT POCT GLUCOSE - MARISCAL DOCKED DEVICE Routine 07/08/2019 5:33 PM CDT POCT GLUCOSE - MARISCAL DOCKED DEVICE Routine 07/08/2019 4:49 PM CDT POCT GLUCOSE - MARISCAL DOCKED DEVICE Routine 07/08/2019 11:47 AM CDT BASIC METABOLIC PANEL Routine 07/08/2019 8:31 AM CDT POCT GLUCOSE - MARISCAL DOCKED DEVICE Routine 07/08/2019 6:33 AM CDT POCT GLUCOSE - MARISCAL DOCKED DEVICE Routine 07/07/2019 9:26 PM CDT POCT GLUCOSE - MARISCAL DOCKED DEVICE Routine 07/07/2019 4:42 PM CDT POCT GLUCOSE - MARISCAL DOCKED DEVICE Routine 07/07/2019 12:04 PM CDT POCT GLUCOSE - MARISCAL DOCKED DEVICE Routine 07/07/2019 6:14 AM CDT POCT GLUCOSE - MARISCAL DOCKED DEVICE Routine 07/06/2019 8:26 PM CDT POCT GLUCOSE - MARISCAL DOCKED DEVICE Routine 07/06/2019 5:22 PM CDT documented in this encounter Results * AMYLASE (07/18/2019 6:29 AM CDT) AMYLASE S/P/B 50 25 - 115 UNITS/L 07/18/2019 7:23 AM CDT [facility] 07/18/2019 6:29 AM CDT us Bijan Wilburn MD LABORATORY Final Result Performing Organization Address City/[facility]/ZIP Co de Phone Number [facility] [address] [place] [address], [place] [phone] * LIPASE (07/18/2019 6:29 AM CDT) LIPASE 150 73 - 393 UNITS/L 07/18/2019 7:23 AM CDT [facility] 07/18/2019 6:29 AM CDT us Bijan Wilburn MD LABORATORY Final Result Performing Organization Address City/[facility]/ZIP Co de Phone Number [facility] [id number] [place] [address], [place] [phone] * MAGNESIUM (07/18/2019 6:29 AM CDT) MAGNESIUM 2.0 1.8 - 2.4 MG/DL 07/18/2019 7:23 AM CDT [facility] 07/18/2019 6:29 AM CDT us Bijan Wilburn MD LABORATORY Final Result Performing Organization Address City/[facility]/ZIP Co de Phone Number [facility] [address] [place] [address], [place] [phone] * (ABNORMAL) CBC W/DIFF AUTOMATED (07/18/2019 6:29 AM CDT) WBC 4.5 4.4 - 11.0 x10'3/uL 07/18/2019 7:17 AM CDT [facility] RBC 4.63 4.50 - 5.10 x10'6/uL 07/18/2019 7:17 AM CDT [facility] HGB 13.3 12.3 - 15.3 G/DL 07/18/2019 7:17 AM CDT [facility] HCT 41.4 35.9 - 44.6 % 07/18/2019 7:17 AM CDT [facility] MCV 89.4 80.0 - 96.0 FL 07/18/2019 7:17 AM CDT [facility] MCH 28.7 25.3 - 30.9 PG 07/18/2019 7:17 AM CDT [facility] MCHC 32.1 31.0 - 34.1 G/DL 07/18/2019 7:17 AM CDT [facility] RDW 14.1 12.4 - 15.1 % 07/18/2019 7:17 AM CDT [facility] PLT 243 151 - 353 x10'3/uL 07/18/2019 7:17 AM T [facility] MPV 10.3 9.6 - 12.0 FL 07/18/2019 7:17 AM T [facility] RBC MORPHOLOGY NORMAL 07/18/2019 7:17 AM T [facility] PLT MORPH. NORMAL 07/18/2019 7:17 AM T [facility] WBC MORPHOLOGY NORMAL 07/18/2019 7:17 AM CDT [facility] LYMPHOCYTES % 15.7(L) 15.8 - 45.0 % 07/18/2019 7:17 AM CDT [facility] NEUTROPHILS % 73.2(H) 42.1 - 71.9 % 07/18/2019 7:17 AM CDT [facility] MONOCYTES % 7.8 5.7 - 12.5 % 07/18/2019 7:17 AM CDT [facility] EOSINOPHILS 2.2 0.0 - 5.6 % 07/18/2019 7:17 AM CDT [facility] BASOPHILS 0.7 0.0 - 1.3 % 07/18/2019 7:17 AM CDT [facility] ABS. NEUTROPHILS TOTAL 3.30 1.40 - 6.00 x10'3/uL 07/18/2019 7:17 AM CDT [facility] IMMATURE GRANS % 0.4 0.0 - 0.5 % 07/18/2019 7:17 AM CDT [facility] ABS. LYMPHOCYTES 0.71(L) 0.80 - 4.70 x10'3/uL 07/18/2019 7:17 AM T [facility] 07/18/2019 6:29 AM CDT us Bijan Wilburn MD LABORATORY Final Result [facility] [address] [place] [phone], * (ABNORMAL) BASIC METABOLIC PANEL (07/18/2019 6:29 AM CDT) GLUCOSE 99 70 - 99 MG/DL 07/18/2019 7:23 AM CDT [facility] BUN 23(H) 7 - 18 MG/DL 07/18/2019 7:23 AM CDT [facility] CREATININE S/P/B 1.01 0.55 - 1.02 MG/DL 07/18/2019 7:23 AM CDT [facility] SODIUM S/P/B 143 136 - 145 MMOL/L 07/18/2019 7:23 AM CDT [facility] POTASSIUM S/P/B 4.3 3.5 - 5.1 MMOL/L 07/18/2019 7:23 AM CDT [facility] CHLORIDE S/P/B 106 100 - 108 MMOL/L 07/18/2019 7:23 AM CDT [facility] CO2 27.5 21 - 32 MMOL/L 07/18/2019 7:23 AM CDT [facility] CALCIUM S/P/B 9.6 8.5 - 10.1 MG/DL 07/18/2019 7:23 AM CDT [facility] ANION GAP 9.5 5 - 15 MMOL/L 07/18/2019 7:23 AM T [facility] BUN CREATININE RATIO 22.8 6 - 26 07/18/2019 7:23 AM T [facility] EGFR NON-AFR. AMER. 51(L) >90 ML/MIN/1.7 3 M2 07/18/2019 7:23 AM T [facility] EGFR AFR. AMER. 60(L) >90 ML/MIN/1.7 3 M2 07/18/2019 7:23 AM T [facility] Comment: NOTE: eGFR is not calculated for patients <18 years of age. This is an estimated GFR (CKD EPI) and should not be used for calculating drug doses. 07/18/2019 6:29 AM CDT Bijan Wilburn MD LABORATORY Final Result [facility] [address] [place] [address], [place] [phone] * USE ECHOCARDIOGRAM (07/17/2019 11:25 AM CDT) Anatomical Region Laterality Modality Cardiac Echocardiogram us Bijan Wilburn MD ECHO Final Result * AMYLASE (07/17/2019 6:22 AM CDT) AMYLASE S/P/B 51 25 - 115 UNITS/L 07/17/2019 6:58 AM CDT [facility] 07/17/2019 6:22 AM CDT us Bijan Wilburn MD LABORATORY Final Result Performing Organization Address [facility]/ZIP Co de Phone Number [facility] [address] [place] [address], [place] [phone] * LIPASE (07/17/2019 6:22 AM CDT) LIPASE 189 73 - 393 UNITS/L 07/17/2019 6:58 AM CDT [facility] 07/17/2019 6:22 AM CDT us Bijan Wilburn MD LABORATORY Final Result Performing Organization Address [facility] Co de Phone Number [facility] [address] [place] [address], [place] [phone] * MAGNESIUM (07/17/2019 6:22 AM CDT) MAGNESIUM 1.8 1.8 - 2.4 MG/DL 07/17/2019 6:58 AM CDT [facility] 07/17/2019 6:22 AM CDT us Bijan Wilburn MD LABORATORY Final Result Performing Organization Address City/[facility] Co de Phone Number [facility] [address] [place] [address], * (ABNORMAL) CBC W/DIFF AUTOMATED (07/17/2019 6:22 AM CDT) [facility] WBC 4.9 4.4 - 11.0 x10'3/uL 07/17/2019 6:49 AM CDT [facility] RBC 4.32(L) 4.50 - 5.10 x10'6/uL 07/17/2019 6:49 AM CDT [facility] HGB 12.3 12.3 - 15.3 G/DL 07/17/2019 6:49 AM CDT [facility] HCT 38.8 35.9 - 44.6 % 07/17/2019 6:49 AM CDT [facility] MCV 89.8 80.0 - 96.0 FL 07/17/2019 6:49 AM CDT [facility] MCH 28.5 25.3 - 30.9 PG 07/17/2019 6:49 AM CDT [facility] MCHC 31.7 31.0 - 34.1 G/DL 07/17/2019 6:49 AM CDT [facility] RDW 14.0 12.4 - 15.1 % 07/17/2019 6:49 AM CDT [facility] PLT 242 151 - 353 x10'3/uL 07/17/2019 6:49 AM CDT [facility] MPV 9.9 9.6 - 12.0 FL 07/17/2019 6:49 AM CDT [facility] RBC MORPHOLOGY NORMAL 07/17/2019 6:49 AM T [facility] PLT MORPH. NORMAL 07/17/2019 6:49 AM CDT [facility] WBC MORPHOLOGY NORMAL 07/17/2019 6:49 AM CDT [facility] LYMPHOCYTES % 18.3 15.8 - 45.0 % 07/17/2019 6:49 AM CDT [facility] NEUTROPHILS % 70.2 42.1 - 71.9 % 07/17/2019 6:49 AM CDT [facility] MONOCYTES % 7.8 5.7 - 12.5 % 07/17/2019 6:49 AM CDT [facility] EOSINOPHILS 2.5 0.0 - 5.6 % 07/17/2019 6:49 AM CDT [facility] BASOPHILS 0.4 0.0 - 1.3 % 07/17/2019 6:49 AM CDT [facility] ABS. NEUTROPHILS TOTAL 3.41 1.40 - 6.00 x10'3/uL 07/17/2019 6:49 AM CDT [facility] IMMATURE GRANS % 0.8(H) 0.0 - 0.5 % 07/17/2019 6:49 AM CDT [facility] ABS. LYMPHOCYTES 0.89 0.80 - 4.70 x10'3/uL 07/17/2019 6:49 AM T [facility] 07/17/2019 6:22 AM CDT Bijan Wilburn MD LABORATORY Final Result Performing Organization Address City/State/[facility] Co de Phone Number [facility] [address] [place] [address], * (ABNORMAL) BASIC METABOLIC PANEL (07/17/2019 6:22 AM CDT) [facility] GLUCOSE 98 70 - 99 MG/DL 07/17/2019 6:58 AM CDT [facility] BUN 22(H) 7 - 18 MG/DL 07/17/2019 6:58 AM CDT [facility] CREATININE S/P/B 1.13(H) 0.55 - 1.02 MG/DL 07/17/2019 6:58 AM CDT [facility] SODIUM S/P/B 144 136 - 145 MMOL/L 07/17/2019 6:58 AM T [facility] POTASSIUM S/P/B 4.2 3.5 - 5.1 MMOL/L 07/17/2019 6:58 AM T [facility] CHLORIDE S/P/B 106 100 - 108 MMOL/L 07/17/2019 6:58 AM CDT [facility] CO2 28.1 21 - 32 MMOL/L 07/17/2019 6:58 AM T [facility] CALCIUM S/P/B 9.2 8.5 - 10.1 MG/DL 07/17/2019 6:58 AM T [facility] ANION GAP 9.9 5 - 15 MMOL/L 07/17/2019 6:58 AM T [facility] BUN CREATININE RATIO 19.5 6 - 26 07/17/2019 6:58 AM T [facility] EGFR NON-AFR. AMER. 45(L) >90 ML/MIN/1.7 3 M2 07/17/2019 6:58 AM T [facility] EGFR AFR. AMER. 52(L) >90 ML/MIN/1.7 3 M2 07/17/2019 6:58 AM T [facility] Comment: NOTE: eGFR is not calculated for patients <18 years of age. This is an estimated GFR (CKD EPI) and should not be used for calculating drug doses. 07/17/2019 6:22 AM CDT Bijan Wilburn MD LABORATORY Final Result [facility] [address] [place] [address], [place] [phone] * AMYLASE (07/16/2019 6:29 AM CDT) AMYLASE S/P/B 53 25 - 115 UNITS/L 07/16/2019 7:26 AM CDT [facility] 07/16/2019 6:29 AM CDT us Bijan Wilburn MD LABORATORY Final Result [facility] [address] [place] [address], [place] [phone] * LIPASE (07/16/2019 6:29 AM CDT) LIPASE 185 73 - 393 UNITS/L 07/16/2019 7:26 AM CDT [facility] 07/16/2019 6:29 AM CDT us Bijan Wilburn MD LABORATORY Final Result [facility] [address] [place] [address], [place] [phone] * MAGNESIUM (07/16/2019 6:29 AM CDT) MAGNESIUM 1.9 1.8 - 2.4 MG/DL 07/16/2019 7:26 AM CDT [facility] 07/16/2019 6:29 AM CDT us Bijan Wilburn MD LABORATORY Final Result [facility] [address] [place] [address], [place] [phone] * LIPID PANEL (07/16/2019 6:29 AM CDT) CHOLESTEROL 164 <200.0 MG/DL 07/16/2019 7:26 AM [facility] TRIGLYCERIDES 130 <150 MG/DL 07/16/2019 7:26 AM [facility] HDL 52 >40.0 MG/DL 07/16/2019 7:26 AM [facility] LDL (CALCULATED) 86 <100 MG/DL 07/16/19 20 7:26 AM [facility] NON HDL CHOLESTEROL 112 <130 MG/DL 07/15 7:26 AM [facility] CHOL/HDL RATIO 3.2 0.0 - 4.5 07/16/2019 7:26 AM [facility] VLDL CALCULATION 26 5 - 55 MG/DL 07/16/2019 7:26 AM [facility] LIPID INTERPRETATION 07/16/2019 7:26 AM [facility] Comment: [facility] REPORT RECOMMENDATIONS: ?ADULT ?CHILD ??LOW RISK: ?CHOLESTEROL ? <200 ? <170 ?TRIGLYCERIDE ?<150 ?--- ?HDL ? >=60 ?--- ?LDL ? <100 ? <110 ??BORDERLINE: ?CHOLESTEROL ? 200-239 ?? 170-199 ?TRIGLYCERIDE ?150-199 ? --- ?HDL ?40-59 ?--- ?LDL ? 100-159 ?? 110-129 ??HIGH RISK: ?CHOLESTEROL ? >=240 ?>=200 ?TRIGLYCERIDE ?>=200 ? --- ?HDL ?<40 ?--- ?LDL ? >=160 ?>=130 07/16/2019 6:29 AM CDT us Bijan Wilburn MD LABORATORY Final Result Performing Organization Address City/State/[facility] Co de Phone Number [facility] [address] [place] [address], * (ABNORMAL) CBC W/DIFF AUTOMATED (07/16/2019 6:29 AM CDT) WBC 4.1(L) 4.4 - 11.0 x10'3/uL 07/16/2019 7:08 AM CDT [facility] RBC 4.17(L) 4.50 - 5.10 x10'6/uL 07/16/2019 7:08 AM CDT [facility] HGB 11.8(L) 12.3 - 15.3 G/DL 07/16/2019 7:08 AM CDT [facility] HCT 36.8 35.9 - 44.6 % 07/16/2019 7:08 AM CDT [facility] MCV 88.2 80.0 - 96.0 FL 07/16/2019 7:08 AM CDT [facility] MCH 28.3 25.3 - 30.9 PG 07/16/2019 7:08 AM CDT [facility] MCHC 32.1 31.0 - 34.1 G/DL 07/16/2019 7:08 AM T [facility] RDW 13.8 12.4 - 15.1 % 07/16/2019 7:08 AM CDT [facility] PLT 243 151 - 353 x10'3/uL 07/16/2019 7:08 AM T [facility] MPV 9.9 9.6 - 12.0 FL 07/16/2019 7:08 AM T [facility] RBC MORPHOLOGY NORMAL 07/16/2019 7:08 AM [facility] PLT MORPH. NORMAL 07/16/2019 7:08 AM T [facility] WBC MORPHOLOGY NORMAL 07/16/2019 7:08 AM [facility] LYMPHOCYTES % 12.3(L) 15.8 - 45.0 % 07/16/2019 7:08 AM T [facility] NEUTROPHILS % 75.8(H) 42.1 - 71.9 % 07/16/2019 7:08 AM [facility] MONOCYTES % 8.1 5.7 - 12.5 % 07/16/2019 7:08 AM [facility] EOSINOPHILS 2.9 0.0 - 5.6 % 07/16/2019 7:08 AM T [facility] BASOPHILS 0.7 0.0 - 1.3 % 07/16/2019 7:08 AM [facility] ABS. NEUTROPHILS TOTAL 3.08 1.40 - 6.00 x10'3/uL 07/16/2019 7:08 AM T [facility] IMMATURE GRANS % 0.2 0.0 - 0.5 % 07/16/2019 7:08 AM CDT [facility] ABS. LYMPHOCYTES 0.50(L) 0.80 - 4.70 x10'3/uL 07/16/2019 7:08 AM CDT [facility] 07/16/2019 6:29 AM CDT Bijan Wilburn MD LABORATORY Final Result [facility] [address] [place] [address], [place] [phone] * (ABNORMAL) BASIC METABOLIC PANEL (07/16/2019 6:29 AM CDT) GLUCOSE 95 70 - 99 MG/DL 07/16/2019 7:26 AM CDT [facility] BUN 18 7 - 18 MG/DL 07/16/2019 7:26 AM CDT [facility] CREATININE S/P/B 0.88 0.55 - 1.02 MG/DL 07/16/2019 7:26 AM CDT [facility] SODIUM S/P/B 143 136 - 145 MMOL/L 07/16/2019 7:26 AM T [facility] POTASSIUM S/P/B 4.7 3.5 - 5.1 MMOL/L 07/16/2019 7:26 AM T [facility] CHLORIDE S/P/B 107 100 - 108 MMOL/L 07/16/2019 7:26 AM CDT [facility] CO2 26.9 21 - 32 MMOL/L 07/16/2019 7:26 AM T [facility] CALCIUM S/P/B 9.1 8.5 - 10.1 MG/DL 07/16/2019 7:26 AM CDT [facility] ANION GAP 9.1 5 - 15 MMOL/L 07/16/2019 7:26 AM CDT [facility] BUN CREATININE RATIO 20.5 6 - 07/16/2019 7:26 AM CDT [facility] EGFR NON-AFR. AMER. 61(L) >90 ML/MIN/1.7 3 M2 07/16/2019 7:26 AM CDT [facility] EGFR AFR. AMER. 70(L) >90 ML/MIN/1.7 3 M2 07/16/2019 7:26 AM CDT [facility] Comment: NOTE: eGFR is not calculated for patients <18 years of age. This is an estimated GFR (CKD EPI) and should not be used for calculating drug doses. 07/16/2019 6:29 AM CDT us Bijan Wilburn MD LABORATORY Final Result Performing Organization Address [facility]/ZIP Co de Phone Number [facility] [address] [place] [address], [place] [phone] * TROPONIN, QUANT (07/16/2019 3:10 AM CDT) TROPONIN I <0.017 0.000 - 0.056 ng/mL. 07/16/2019 3:34 AM CDT [facility] Comment: NORMAL: LESS THAN OR EQUAL TO 0.056 NG/ML INDETERMINATE ZONE: 0.056 TO 0.599 NG/ML CONDITIONS RESULTING IN MYOCARDIAL CELL DAMAGE CAN POTENTIALLY INCREASE LEVELS ABOVE THE EXPECTED RANGE. HIGH DOSES OF BIOTIN MAY INTERFERE WITH THIS TEST RESULT. CORRELATION TO CLINICAL HISTORY AND PRESENTATION RECOMMENDED. 07/16/2019 3:10 AM CDT us Bijan Wilburn MD LABORATORY Final Result Performing Organization Address [facility]/ZIP Co de Phone Number [facility] [address] [place] [address], [place] [phone] * TROPONIN, QUANT (07/15/2019 9:40 PM CDT) TROPONIN I <0.017 0.000 - 0.056 ng/mL. 07/15/2019 10:03 PM CDT [facility] Comment: NORMAL: LESS THAN OR EQUAL TO 0.056 NG/ML INDETERMINATE ZONE: 0.056 TO 0.599 NG/ML CONDITIONS RESULTING IN MYOCARDIAL CELL DAMAGE CAN POTENTIALLY INCREASE LEVELS ABOVE THE EXPECTED RANGE. HIGH DOSES OF BIOTIN MAY INTERFERE WITH THIS TEST RESULT. CORRELATION TO CLINICAL HISTORY AND PRESENTATION RECOMMENDED. 07/15/2019 9:40 PM CDT Bijan Wilburn MD LABORATORY Final Result [facility] [address] [place] [address], [place] [phone] * POCT glucose (07/15/2019 5:31 PM CDT) GLUCOSE POC 82 70 - 110 mg/dL 07/15/2019 5:38 PM CDT [facility] ORDERS INTERFACE 07/15/2019 5:31 PM CDT Bijan Wilburn MD POCT ORDERABLES - DEVICE Final R esult [facility] ORDERS INTERFACE US * URINALYSIS WI REFLEX TO CULTURE (07/15/2019 4:15 PM CDT) COLOR (U) YELLOW 07/15/2019 4:33 PM CDT [facility] TRANSPARENCY CLEAR 07/15/2019 4:33 PM CDT [facility] SPECIFIC GRAVITY (U) 1.020 1.000 - 1.030 07/15/2019 4:33 PM CDT [facility] U PH 6.5 5.0 - 9.0 07/15/2019 4:33 PM CDT [facility] LEUKOCYTES (U) NEGATIVE NEGATIVE 07/15/2019 4:33 PM CDT [facility] NITRITES NEGATIVE NEGATIVE 07/15/2019 4:33 PM CDT [facility] PROTEIN (U) NEGATIVE NEGATIVE 07/15/2019 4:33 PM CDT [facility] URINE GLUCOSE NEGATIVE NEGATIVE 07/15/2019 4:33 PM CDT [facility] KETONES MG/DL (U) NEGATIVE NEGATIVE 07/15/2019 4:33 PM CDT [facility] BILIRUBIN (U) NEGATIVE NEGATIVE 07/15/2019 4:33 PM CDT [facility] BLOOD (U) NEGATIVE NEGATIVE 07/15/2019 4:33 PM CDT [facility] WBC/HPF NONE SEEN 0 - 5 /HPF 07/15/2019 4:33 PM T [facility] RBC/HPF NONE SEEN 0 - 5 /HPF 07/15/2019 4:33 PM T [facility] EPI/HPF MANY /HPF 07/15/2019 4:33 PM CDT [facility] CULTURE & SENSITIVITY INDICATED? CULTURE IS NOT INDICATED 07/15/2019 4:33 PM T [facility] URINE SPECIMEN OBTAINED BY CLEAN CATCH PROCEDURE / Unknown 07/15/2019 4:15 PM CDT us Bijan Wilburn MD URINE ORDERABLES Final Result [facility] [address] [place] [address], * THYROXINE, FREE (FT4) (07/15/2019 2:34 PM CDT) FREE T4 1.32 0.76 - 1.46 NG/DL 07/15/2019 4:27 PM CDT [facility] 07/15/2019 2:34 PM CDT us Bijan Wilburn MD LABORATORY Final Result [facility] [address] [place] [address], [place] [phone] * (ABNORMAL) TSH W/REFLEX (07/15/2019 2:34 PM CDT) TSH 5.805(H) 0.358 - 3.74 uIU/ML 07/15/2019 3:56 PM CDT [facility] Comment: HIGH DOSES OF BIOTIN MAY INTERFERE WITH THIS TEST RESULT. CORRELATION TO CLINICAL HISTORY AND PRESENTATION RECOMMENDED. 07/15/2019 2:34 PM CDT Bijan Wilburn MD LABORATORY Final Result Performing Organization Address City/[facility]/ZIP Co de Phone Number [facility] [address] [place] [address], [place] [phone] * (ABNORMAL) D-DIMER, QUANTITATIVE (07/15/2019 2:34 PM CDT) D-DIMER 1,282(H) 0.0 - 500.0 D DU ng/mL 07/15/2019 3:08 PM CDT [facility] 07/15/2019 2:34 PM CDT us Bijan Wilburn MD LABORATORY Final Result [facility] [address] [place] [address], [place] [phone] * (ABNORMAL) PROTIME/INR, VENOUS (07/15/2019 2:34 PM CDT) PROTIME 12.6(H) 9.1 - 12.4 SEC 07/15/2019 3:08 PM CDT [facility] INR 1.1 07/15/2019 3:08 PM CDT [facility] Comment: Recommend INR ranges for Oral Anticoagulant Therapy: Mechanical Cardiac Values 2.5-3.5 All others indication 2.0-3.0 07/15/2019 2:34 PM CDT us Bijan Wilburn MD LABORATORY Final Result [facility] [address] [place] [address], * (ABNORMAL) HEPATIC FUNCTION PANEL (07/15/2019 2:34 PM CDT) [facility] TOTAL PROTEIN S/P/B 5.6(L) 6.4 - 8.2 G/DL 07/15/2019 3:56 PM CDT [facility] ALBUMIN S/P/B 3.0(L) 3.4 - 5.0 G/DL 07/15/2019 3:56 PM T [facility] BILIRUBIN TOTAL S/P/B 0.5 0.2 - 1.2 MG/DL 07/15/2019 3:56 PM CDT [facility] BILIRUBIN DIRECT S/P/B 0.1 0.0 - 0.20 MG/DL 07/15/2019 3:56 PM CDT [facility] BILIRUBIN INDIRECT S/P/B 0.4 0.0 - 0.9 MG/DL 07/15/2019 3:56 PM CDT [facility] ALKALINE PHOSPHATASE S/P/B 67 50 - 136 U/L 07/15/2019 3:56 PM CDT [facility] AST 27 15 - 37 U/L 07/15/2019 3:56 PM CDT [facility] ALT 30 14 - 55 U/L 07/15/2019 3:56 PM CDT [facility] A/G RATIO 1.2 1.0 - 2.0 RATIO 07/15/2019 3:56 PM CDT [facility] 07/15/2019 2:34 PM CDT us Bijan Wilburn MD LABORATORY Final Result [facility] [address] [place] [address], [place] [phone] * MAGNESIUM (07/15/2019 2:34 PM CDT) MAGNESIUM 1.8 1.8 - 2.4 MG/DL 07/15/2019 3:56 PM CDT [facility] 07/15/2019 2:34 PM CDT us Bijan Wilburn MD LABORATORY Final Result Performing Organization Address [facility] Co de Phone Number [facility] [address] [place] [address], [place] [phone] * (ABNORMAL) CBC W/DIFF AUTOMATED (07/15/2019 2:34 PM CDT) WBC 4.6 4.4 - 11.0 x10'3/uL 07/15/2019 3:01 PM CDT [facility] RBC 4.09(L) 4.50 - 5.10 x10'6/uL 07/15/2019 3:01 PM CDT [facility] HGB 11.8(L) 12.3 - 15.3 G/DL 07/15/2019 3:01 PM CDT [facility] HCT 36.2 35.9 - 44.6 % 07/15/2019 3:01 PM [facility] MCV 88.5 80.0 - 96.0 FL 07/15/2019 3:01 PM [facility] MCH 28.9 25.3 - 30.9 PG 07/15/2019 3:01 PM [facility] MCHC 32.6 31.0 - 34.1 G/DL 07/15/2019 3:01 PM [facility] RDW 13.9 12.4 - 15.1 % 07/15/2019 3:01 PM [facility] PLT 242 151 - 353 x10'3/uL 07/15/2019 3:01 PM [facility] MPV 9.8 9.6 - 12.0 FL 07/15/2019 3:01 PM [facility] RBC MORPHOLOGY NORMAL 07/15/2019 3:01 PM [facility] PLT MORPH. NORMAL 07/15/2019 3:01 PM [facility] WBC MORPHOLOGY NORMAL 07/15/2019 3:01 PM [facility] LYMPHOCYTES % 14.6(L) 15.8 - 45.0 % 07/15/2019 3:01 PM [facility] NEUTROPHILS % 74.4(H) 42.1 - 71.9 % 07/15/2019 3:01 PM [facility] MONOCYTES % 7.6 5.7 - 12.5 % 07/15/2019 3:01 PM [facility] EOSINOPHILS 2.0 0.0 - 5.6 % 07/15/2019 3:01 PM [facility] BASOPHILS 0.7 0.0 - 1.3 % 07/15/2019 3:01 PM [facility] ABS. NEUTROPHILS TOTAL 3.43 1.40 - 6.00 x10'3/uL 07/15/2019 3:01 PM CDT [facility] IMMATURE GRANS % 0.7(H) 0.0 - 0.5 % 07/15/2019 3:01 PM CDT [facility] ABS. LYMPHOCYTES 0.67(L) 0.80 - 4.70 x10'3/uL 07/15/2019 3:01 PM CDT [facility] 07/15/2019 2:34 PM CDT us Bijan Wilburn MD LABORATORY Final Result Performing Organization Address [facility]/ZIP Co de Phone Number [facility] [address] [place] [address], [place] [phone] * (ABNORMAL) PRO-BRAIN NATRIURETIC PEPTIDE (07/15/2019 2:34 PM CDT) PRO-B TYPE NATRIURETIC PEPTIDE 776(H) <450 PG/ML 07/15/2019 3:56 PM CDT [facility] Comment: CUT POINTS ESTABLISHED BY INTERNATIONAL [...] OF 89% AND 72% FOR ACUTE CHF. 07/15/2019 2:34 PM CDT us Bijan Wilburn MD LABORATORY Final Result Performing Organization Address [facility]/ZIP Co de Phone Number [facility] [address] [place] [address], [place] [phone] * (ABNORMAL) BASIC METABOLIC PANEL (07/15/2019 2:34 PM CDT) [facility] GLUCOSE 100(H) 70 - 99 MG/DL 07/15/2019 3:56 PM T [facility] BUN 16 7 - 18 MG/DL 07/15/2019 3:56 PM T [facility] CREATININE S/P/B 0.97 0.55 - 1.02 MG/DL 07/15/2019 3:56 PM CDT [facility] SODIUM S/P/B 143 136 - 145 MMOL/L 07/15/2019 3:56 PM T [facility] POTASSIUM S/P/B 4.4 3.5 - 5.1 MMOL/L 07/15/2019 3:56 PM T [facility] CHLORIDE S/P/B 106 100 - 108 MMOL/L 07/15/2019 3:56 PM T [facility] CO2 28.7 21 - 32 MMOL/L 07/15/2019 3:56 PM T [facility] CALCIUM S/P/B 8.9 8.5 - 10.1 MG/DL 07/15/2019 3:56 PM T [facility] ANION GAP 8.3 5 - 15 MMOL/L 07/15/2019 3:56 PM T [facility] BUN CREATININE RATIO 16.5 6 - 26 07/15/2019 3:56 PM T [facility] EGFR NON-AFR. AMER. 54(L) >90 ML/MIN/1.7 3 M2 07/15/2019 3:56 PM [facility] EGFR AFR. AMER. 63(L) >90 ML/MIN/1.7 3 M2 07/15/2019 3:56 PM T [facility] Comment: NOTE: eGFR is not calculated for patients <18 years of age. This is an estimated GFR (CKD EPI) and should not be used for calculating drug doses. 07/15/2019 2:34 PM CDT Bijan Wilburn MD LABORATORY Final Result Performing Organization Address [facility] de Phone Number [facility] [address] [place] [address], * TROPONIN, QUANT (07/15/2019 2:34 PM CDT) Pathologist [facility] TROPONIN I <0.017 0.000 - 0.056 ng/mL. 07/15/2019 3:29 PM CDT [facility] Comment: NORMAL: LESS THAN OR EQUAL TO 0.056 NG/ML INDETERMINATE ZONE: 0.056 TO 0.599 NG/ML CONDITIONS RESULTING IN MYOCARDIAL CELL DAMAGE CAN POTENTIALLY INCREASE LEVELS ABOVE THE EXPECTED RANGE. HIGH DOSES OF BIOTIN MAY INTERFERE WITH THIS TEST RESULT. CORRELATION TO CLINICAL HISTORY AND PRESENTATION RECOMMENDED. 07/15/2019 2:34 PM CDT Bijan Wilburn MD LABORATORY Final Result Performing Organization Address [facility] de Phone Number [facility] [address] [place] [address], [place] [phone] * ECG 12 lead (07/15/2019 1:37 PM CDT) 07/15/2019 1:37 PM CDT Narrative [facility] ([facility]) RAD - 07/16/2019 8:15 AM CDT ?[facility] ? Test Date: ?2019-07-15 Pat Name: ? AVIVA CH ?Department: ? Room: ? 1231 Gender: ? Female ? 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 Requested By: BIJAN WILBURN Order Number: [id number] ? Reading MD: ?? Scott Cabello ? Measurements Intervals ?[place] ? Rate: ? 53 ? P: ?44 MO: ? 215 ?QRS: ?34 QRSD: ? 121 ?T: ?23 QT: ? 447 ? QTc: ?423 ? Interpretive Statements SINUS BRADYCARDIA WITH SINUS ARRHYTHMIA WITH FIRST DEGREE AV BLOCK RIGHT BUNDLE BRANCH BLOCK ??[120+ ms QRS DURATION, UPRIGHT V1, 40+ ms S IN I/aVL/V4/V5/V6] Compared to ECG 07/03/2019 14:19:48 First degree AV block now present Atrial fibrillation no longer present Indeterminate axis no longer present Procedure Note Scott Cabello MD - 07/16/[address] 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: : [phone] Requested By: BIJAN WILBURN Order Number: [id number] Reading MD: Scott Cabello Measurements Intervals [place] Rate: 53 P: 44 MO: 215 QRS: 34 QRSD: 121 T: 23 QT: 447 QTc: 423 Interpretive Statements SINUS BRADYCARDIA WITH SINUS ARRHYTHMIA WITH FIRST DEGREE AV BLOCK RIGHT BUNDLE BRANCH BLOCK [120+ ms QRS DURATION, UPRIGHT V1, 40+ ms S IN I/aVL/V4/V5/V6] Compared to ECG 07/03/2019 14:19:48 First degree AV block now present Atrial fibrillation no longer present Indeterminate axis no longer present us Bijan Wilburn MD ECG ORDERABLES Final Result [facility] ([facility] RAD * POCT glucose (07/15/2019 11:47 AM CDT) GLUCOSE POC 96 70 - 110 mg/dL 07/15/2019 12:10 PM CDT [facility] ORDERS INTERFACE 07/15/2019 11:4 7 AM CDT us Bijan Wilburn MD POCT ORDERABLES - DEVICE Final R esult Performing Organization Address City/[facility]/ZIP Co de Phone Number [facility] ORDERS INTERFACE US * POCT glucose (07/15/2019 8:24 AM CDT) GLUCOSE POC 105 70 - 110 mg/dL 07/15/2019 10:49 AM CDT [facility] ORDERS INTERFACE 07/15/2019 8:24 AM CDT Bijan Wilburn MD POCT ORDERABLES - DEVICE Final R esult Performing Organization Address [facility] Co de Phone Number [facility] ORDERS INTERFACE US * (ABNORMAL) POCT glucose (07/14/2019 11:10 AM CDT) GLUCOSE POC 128(H) 70 - 110 mg/dL 07/14/2019 11:37 AM CDT [facility] ORDERS INTERFACE 07/14/2019 11:1 0 AM CDT Bijan Wilburn MD POCT ORDERABLES - DEVICE Final R [facility] Performing Organization Address [facility] de Phone Number [facility] ORDERS INTERFACE US * (ABNORMAL) BASIC METABOLIC PANEL (07/14/2019 5:43 AM CDT) GLUCOSE 98 70 - 99 MG/DL 07/14/2019 6:25 AM CDT [facility] BUN 21(H) 7 - 18 MG/DL 07/14/2019 6:25 AM CDT [facility] CREATININE S/P/B 0.87 0.55 - 1.02 MG/DL 07/14/2019 6:25 AM CDT [facility] SODIUM S/P/B 145 136 - 145 MMOL/L 07/14/2019 6:25 AM CDT [facility] POTASSIUM S/P/B 4.5 3.5 - 5.1 MMOL/L 07/14/2019 6:25 AM CDT [facility] CHLORIDE S/P/B 108 100 - 108 MMOL/L 07/14/2019 6:25 AM CDT [facility] CO2 27.3 21 - 32 MMOL/L 07/14/2019 6:25 AM CDT [facility] CALCIUM S/P/B 8.9 8.5 - 10.1 MG/DL 07/14/2019 6:25 AM CDT [facility] ANION GAP 9.7 5 - 15 MMOL/L 07/14/2019 6:25 AM CDT [facility] BUN CREATININE RATIO 24.1 6 - 26 07/14/2019 6:25 AM T [facility] EGFR NON-AFR. AMER. 62(L) >90 ML/MIN/1.7 3 M2 07/14/2019 6:25 AM T [facility] EGFR AFR. AMER. 71(L) >90 ML/MIN/1.7 3 M2 07/14/2019 6:25 AM T [facility] Comment: NOTE: eGFR is not calculated for patients <18 years of age. This is an estimated GFR (CKD EPI) and should not be used for calculating drug doses. 07/14/2019 5:43 AM CDT us Bijan Wilburn MD LABORATORY Final Result Performing Organization Address City/[facility] Co de Phone Number [facility] [address] [place] [address], [place] [phone] * POCT glucose (07/13/2019 8:38 PM CDT) [facility] GLUCOSE POC 100 70 - 110 mg/dL 07/13/2019 8:45 PM CDT [facility] ORDERS INTERFACE 07/13/2019 8:38 PM CDT us Bijan Wilburn MD POCT ORDERABLES - DEVICE Final R esult Performing Organization Address City/[facility] Co de Phone Number [facility] ORDERS INTERFACE US * POCT glucose (07/13/2019 5:56 PM CDT) GLUCOSE POC 95 70 - 110 mg/dL 07/13/2019 5:58 PM CDT [facility] ORDERS INTERFACE 07/13/2019 5:56 PM CDT Bijan Wilburn MD POCT ORDERABLES - DEVICE Final R esult Performing Organization Address City/[facility]/ZIP Co de Phone Number [facility] ORDERS INTERFACE US * POCT glucose (07/13/2019 12:16 PM CDT) GLUCOSE POC 89 70 - 110 mg/dL 07/13/2019 12:18 PM CDT [facility] ORDERS INTERFACE 07/13/2019 12:1 6 PM CDT Bijan Wilburn MD POCT ORDERABLES - DEVICE Final R esult Performing Organization Address [facility] Co de Phone Number [facility] ORDERS INTERFACE US * (ABNORMAL) HEMOGLOBIN, GLYCOSYLATED (07/13/2019 11:35 AM CDT) HGB A1C 6.5(H) <5.7 % 07/13/2019 1:22 PM CDT [facility] ([facility] Comment: INCREASED RISK OF DIABETES <5.7% ?NON-DIABETES 5.7-6.4% INCREASED RISK FOR FUTURE DIABETES > OR = 6.5 CONSISTENT WITH DIABETES STANDARDS OF MEDICAL CARE IN DIABETES-2010 DIABETES CARE, 33(SUPP 1): S1-S61,2010 07/13/2019 11:3 5 AM CDT Bijan Wilburn MD LABORATORY Final Result [facility] ([facility] [address] [place] [address], [place] [phone] * MAGNESIUM (07/13/2019 11:35 AM CDT) MAGNESIUM 1.9 1.8 - 2.4 MG/DL 07/13/2019 12:16 PM CDT [facility] 07/13/2019 11:3 5 AM CDT Bijan Wilburn MD LABORATORY Final Result [facility] [address] [place] [address], * (ABNORMAL) CBC W/DIFF AUTOMATED (07/13/2019 11:35 AM CDT) [facility] WBC 4.9 4.4 - 11.0 x10'3/uL 07/13/2019 11:54 AM CDT [facility] RBC 3.93(L) 4.50 - 5.10 x10'6/uL 07/13/2019 11:54 AM CDT [facility] HGB 11.4(L) 12.3 - 15.3 G/DL 07/13/2019 11:54 AM CDT [facility] HCT 34.9(L) 35.9 - 44.6 % 07/13/2019 11:54 AM CDT [facility] MCV 88.8 80.0 - 96.0 FL 07/13/2019 11:54 AM CDT [facility] MCH 29.0 25.3 - 30.9 PG 07/13/2019 11:54 AM CDT [facility] MCHC 32.7 31.0 - 34.1 G/DL 07/13/2019 11:54 AM CDT [facility] RDW 14.1 12.4 - 15.1 % 07/13/2019 11:54 AM CDT [facility] PLT 206 151 - 353 x10'3/uL 07/13/2019 11:54 AM CDT [facility] MPV 10.0 9.6 - 12.0 FL 07/13/2019 11:54 AM CDT [facility] RBC MORPHOLOGY NORMAL 07/13/2019 11:54 AM CDT [facility] PLT MORPH. NORMAL 07/13/2019 11:54 AM CDT [facility] WBC MORPHOLOGY NORMAL 07/13/2019 11:54 AM CDT [facility] LYMPHOCYTES % 13.8(L) 15.8 - 45.0 % 07/13/2019 11:54 AM CDT [facility] NEUTROPHILS % 74.7(H) 42.1 - 71.9 % 07/13/2019 11:54 AM CDT [facility] MONOCYTES % 7.9 5.7 - 12.5 % 07/13/2019 11:54 AM T [facility] EOSINOPHILS 2.0 0.0 - 5.6 % 07/13/2019 11:54 AM CDT [facility] BASOPHILS 0.4 0.0 - 1.3 % 07/13/2019 11:54 AM CDT [facility] ABS. NEUTROPHILS TOTAL 3.69 1.40 - 6.00 x10'3/uL 07/13/2019 11:54 AM T [facility] IMMATURE GRANS % 1.2(H) 0.0 - 0.5 % 07/13/2019 11:54 AM CDT [facility] ABS. LYMPHOCYTES 0.68(L) 0.80 - 4.70 x10'3/uL 07/13/2019 11:54 AM T [facility] 07/13/2019 11:3 5 AM CDT Bijan Wilburn MD LABORATORY Final Result [facility] [address] [place] [address], [place] [phone] * POCT glucose (07/13/2019 6:18 AM CDT) GLUCOSE POC 97 70 - 110 mg/dL 07/13/2019 6:22 AM CDT [facility] ORDERS INTERFACE 07/13/2019 6:18 AM CDT Bijan Wilburn MD POCT ORDERABLES - DEVICE Final R esult Performing Organization Address City/[facility]/ZIP Co de Phone Number [facility] ORDERS INTERFACE US * (ABNORMAL) POCT glucose (07/12/2019 8:40 PM CDT) GLUCOSE POC 144(H) 70 - 110 mg/dL 07/12/2019 9:04 PM CDT [facility] ORDERS INTERFACE 07/12/2019 8:40 PM CDT Bijan Wilburn MD POCT ORDERABLES - DEVICE Final R esult Performing Organization Address [facility] Co de Phone Number [facility] ORDERS INTERFACE US * POCT glucose (07/12/2019 4:49 PM CDT) GLUCOSE POC 102 70 - 110 mg/dL 07/12/2019 4:53 PM CDT [facility] ORDERS INTERFACE 07/12/2019 4:49 PM CDT Bijan Wilburn MD POCT ORDERABLES - DEVICE Final R esult Performing Organization Address City/[facility]/ZIP Co de Phone Number [facility] ORDERS INTERFACE US * (ABNORMAL) POCT glucose (07/12/2019 11:41 AM CDT) GLUCOSE POC 129(H) 70 - 110 mg/dL 07/12/2019 11:48 AM CDT [facility] ORDERS INTERFACE 07/12/2019 11:4 1 AM CDT Bijan Wilburn MD POCT ORDERABLES - DEVICE Final R esult Performing Organization Address [facility] Co de Phone Number [facility] ORDERS INTERFACE US * POCT glucose (07/12/2019 4:51 AM CDT) GLUCOSE POC 102 70 - 110 mg/dL 07/12/2019 5:13 AM CDT [facility] ORDERS INTERFACE 07/12/2019 4:51 AM CDT us Bijan Wilburn MD POCT ORDERABLES - DEVICE Final R esult Performing Organization Address [facility] de Phone Number [facility] ORDERS INTERFACE US * (ABNORMAL) POCT glucose (07/11/2019 8:23 PM CDT) GLUCOSE POC 120(H) 70 - 110 mg/dL 07/11/2019 8:28 PM CDT [facility] ORDERS INTERFACE 07/11/2019 8:23 PM CDT us Rick Hubbard MD POCT ORDERABLES - DEVICE Final Result Performing Organization Address [facility] de Phone Number [facility] LAB ORDERS INTERFACE US * (ABNORMAL) POCT glucose (07/11/2019 11:40 AM CDT) GLUCOSE POC 145(H) 70 - 110 mg/dL 07/11/2019 11:44 AM CDT [facility] LAB ORDERS INTERFACE 07/11/2019 11:4 0 AM CDT us Rick Hubbard MD POCT ORDERABLES - DEVICE Final Result Performing Organization Address [facility] Co de Phone Number [facility] LAB ORDERS INTERFACE US * POCT glucose (07/11/2019 6:24 AM CDT) GLUCOSE POC 91 70 - 110 mg/dL 07/11/2019 6:38 AM CDT [facility] LAB ORDERS INTERFACE 07/11/2019 6:24 AM CDT Shy Cosme MD POCT ORDERABLES - DEVICE Final Result Performing Organization Address [facility] de Phone Number [facility] LAB ORDERS INTERFACE US * (ABNORMAL) POCT glucose (07/10/2019 8:42 PM CDT) GLUCOSE POC 136(H) 70 - 110 mg/dL 07/11/2019 6:38 AM CDT [facility] LAB ORDERS INTERFACE 07/10/2019 8:42 PM CDT Shy Cosme MD POCT ORDERABLES - DEVICE Final Result Performing Organization Address [facility] de Phone Number [facility] LAB ORDERS INTERFACE US * POCT glucose (07/10/2019 5:09 PM CDT) GLUCOSE POC 109 70 - 110 mg/dL 07/10/2019 5:21 PM CDT [facility] LAB ORDERS INTERFACE 07/10/2019 5:09 PM CDT Shy Cosme MD POCT ORDERABLES - DEVICE Final Result Performing Organization Address [facility] de Phone Number [facility] LAB ORDERS INTERFACE US * (ABNORMAL) POCT glucose (07/10/2019 11:23 AM CDT) GLUCOSE POC 117(H) 70 - 110 mg/dL 07/10/2019 12:57 PM CDT [facility] LAB ORDERS INTERFACE 07/10/2019 11:2 3 AM CDT Shy Cosme MD POCT ORDERABLES - DEVICE Final Result Performing Organization Address [facility] Co de Phone Number [facility] LAB ORDERS INTERFACE US * POCT glucose (07/10/2019 6:51 AM CDT) GLUCOSE POC 109 70 - 110 mg/dL 07/10/2019 6:57 AM CDT [facility] LAB ORDERS INTERFACE 07/10/2019 6:51 AM CDT Shy Cosme MD POCT ORDERABLES - DEVICE Final Result [facility] LAB ORDERS INTERFACE US * (ABNORMAL) POCT glucose (07/09/2019 8:44 PM CDT) GLUCOSE POC 117(H) 70 - 110 mg/dL 07/09/2019 9:03 PM CDT [facility] LAB ORDERS INTERFACE 07/09/2019 8:44 PM CDT Shy Cosme MD POCT ORDERABLES - DEVICE Final Result Performing Organization Address City/[facility]/ZIP Co de Phone Number [facility] LAB ORDERS INTERFACE US * (ABNORMAL) POCT glucose (07/09/2019 5:58 PM CDT) GLUCOSE POC 148(H) 70 - 110 mg/dL 07/09/2019 6:09 PM CDT [facility] LAB ORDERS INTERFACE 07/09/2019 5:58 PM CDT Shy Cosme MD POCT ORDERABLES - DEVICE Final Result Performing Organization Address [facility] Co de Phone Number [facility] LAB ORDERS INTERFACE US * (ABNORMAL) POCT glucose (07/09/2019 11:52 AM CDT) GLUCOSE POC 118(H) 70 - 110 mg/dL 07/09/2019 11:57 AM CDT [facility] LAB ORDERS INTERFACE 07/09/2019 11:5 2 AM CDT Shy Cosme MD POCT ORDERABLES - DEVICE Final Result [facility] LAB ORDERS INTERFACE US * (ABNORMAL) POCT glucose (07/09/2019 10:17 AM CDT) GLUCOSE POC 133(H) 70 - 110 mg/dL 07/09/2019 11:57 AM CDT [facility] LAB ORDERS INTERFACE 07/09/2019 10:1 7 AM CDT Shy Cosme MD POCT ORDERABLES - DEVICE Final Result [facility] LAB ORDERS INTERFACE US * POCT glucose (07/09/2019 9:05 AM CDT) GLUCOSE POC 96 70 - 110 mg/dL 07/09/2019 9:38 AM CDT [facility] LAB ORDERS INTERFACE 07/09/2019 9:05 AM CDT Shy Cosme MD POCT ORDERABLES - DEVICE Final Result [facility] ORDERS INTERFACE US * (ABNORMAL) BASIC METABOLIC PANEL (07/09/2019 6:28 AM CDT) GLUCOSE 100(H) 70 - 99 MG/DL 07/09/2019 9:16 AM CDT [facility] BUN 8 7 - 18 MG/DL 07/09/2019 9:16 AM CDT [facility] CREATININE S/P/B 0.70 0.55 - 1.02 MG/DL 07/09/2019 9:16 AM CDT [facility] SODIUM S/P/B 144 136 - 145 MMOL/L 07/09/2019 9:16 AM CDT [facility] POTASSIUM S/P/B 4.1 3.5 - 5.1 MMOL/L 07/09/2019 9:16 AM CDT [facility] CHLORIDE S/P/B 108 100 - 108 MMOL/L 07/09/2019 9:16 AM CDT [facility] CO2 26.9 21 - 32 MMOL/L 07/09/2019 9:16 AM CDT [facility] CALCIUM S/P/B 8.5 8.5 - 10.1 MG/DL 07/09/2019 9:16 AM CDT [facility] ANION GAP 9.1 5 - 15 MMOL/L 07/09/2019 9:16 AM CDT [facility] BUN CREATININE RATIO 11.4 6 - 26 07/09/2019 9:16 AM CDT [facility] EGFR NON-AFR. AMER. 80(L) >90 ML/MIN/1.7 3 M2 07/09/2019 9:16 AM CDT [facility] EGFR AFR. AMER. >90 >90 ML/MIN/1.7 3 M2 07/09/2019 9:16 AM T [facility] Comment: NOTE: eGFR is not calculated for patients <18 years of age. This is an estimated GFR (CKD EPI) and should not be used for calculating drug doses. 07/09/2019 6:28 AM CDT [facility] Final Result Performing Organization Address City/[facility]/ZIP Co de Phone Number [facility] [address] [place] [address], [place] [phone] * (ABNORMAL) POCT glucose (07/08/2019 9:14 PM CDT) GLUCOSE POC 114(H) 70 - 110 mg/dL 07/08/2019 9:40 PM CDT [facility] ORDERS INTERFACE 07/08/2019 9:14 PM CDT us Shy Cosme MD POCT ORDERABLES - DEVICE Final Result [facility] ORDERS INTERFACE US * (ABNORMAL) POCT glucose (07/08/2019 5:33 PM CDT) GLUCOSE POC 148(H) 70 - 110 mg/dL 07/08/2019 5:39 PM CDT [facility] ORDERS INTERFACE 07/08/2019 5:33 PM CDT us Shy Cosme MD POCT ORDERABLES - DEVICE Final Result Performing Organization Address [facility] de Phone Number [facility] ORDERS INTERFACE US * (ABNORMAL) POCT glucose (07/08/2019 4:49 PM CDT) [facility] GLUCOSE POC 64(L) 70 - 110 mg/dL 07/08/2019 5:39 PM CDT [facility] ORDERS INTERFACE 07/08/2019 4:49 PM CDT Shy Cosme MD POCT ORDERABLES - DEVICE Final Result Performing Organization Address [facility] de Phone Number [facility] ORDERS INTERFACE US * (ABNORMAL) POCT glucose (07/08/2019 11:47 AM CDT) [facility] GLUCOSE POC 202(H) 70 - 110 mg/dL 07/08/2019 11:49 AM CDT [facility] ORDERS INTERFACE 07/08/2019 11:4 7 AM CDT Shy Cosme MD POCT ORDERABLES - DEVICE Final Result Performing Organization Address [facility] de Phone Number [facility] ORDERS INTERFACE US * (ABNORMAL) BASIC METABOLIC PANEL (07/08/2019 8:31 AM CDT) [facility] GLUCOSE 101(H) 70 - 99 MG/DL 07/08/2019 9:16 AM CDT [facility] BUN 8 7 - 18 MG/DL 07/08/2019 9:16 AM CDT [facility] CREATININE S/P/B 0.81 0.55 - 1.02 MG/DL 07/08/2019 9:16 AM CDT [facility] SODIUM S/P/B 145 136 - 145 MMOL/L 07/08/2019 9:16 AM CDT [facility] POTASSIUM S/P/B 3.3(L) 3.5 - 5.1 MMOL/L 07/08/2019 9:16 AM CDT [facility] CHLORIDE S/P/B 107 100 - 108 MMOL/L 07/08/2019 9:16 AM CDT [facility] CO2 27.9 21 - 32 MMOL/L 07/08/2019 9:16 AM CDT [facility] CALCIUM S/P/B 8.8 8.5 - 10.1 MG/DL 07/08/2019 9:16 AM CDT [facility] ANION GAP 10.1 5 - 15 MMOL/L 07/08/2019 9:16 AM CDT [facility] BUN CREATININE RATIO 9.9 6 - 26 07/08/2019 9:16 AM CDT [facility] EGFR NON-AFR. AMER. 67(L) >90 ML/MIN/1.7 3 M2 07/08/2019 9:16 AM CDT [facility] EGFR AFR. AMER. 78(L) >90 ML/MIN/1.7 3 M2 07/08/2019 9:16 AM T [facility] Comment: NOTE: eGFR is not calculated for patients <18 years of age. This is an estimated GFR (CKD EPI) and should not be used for calculating drug doses. 07/08/2019 8:31 AM CDT us Shy Cosme MD LABORATORY Final Result Performing Organization Address City/[facility]/ZIP Co de Phone Number [facility] [address] [place] [address], [place] [phone] * POCT glucose (07/08/2019 6:33 AM CDT) [facility] GLUCOSE POC 89 70 - 110 mg/dL 07/08/2019 7:16 AM CDT [facility] ORDERS INTERFACE 07/08/2019 6:33 AM CDT us Shy Cosme MD POCT ORDERABLES - DEVICE Final Result Performing Organization Address [facility]/ZIP Co de Phone Number [facility] ORDERS INTERFACE US * POCT glucose (07/07/2019 9:26 PM CDT) GLUCOSE POC 100 70 - 110 mg/dL 07/07/2019 9:38 PM CDT [facility] ORDERS INTERFACE 07/07/2019 9:26 PM CDT Shy Cosme MD POCT ORDERABLES - DEVICE Final Result Performing Organization Address [facility] de Phone Number [facility] ORDERS INTERFACE US * POCT glucose (07/07/2019 4:42 PM CDT) GLUCOSE POC 74 70 - 110 mg/dL 07/07/2019 4:48 PM CDT [facility] ORDERS INTERFACE 07/07/2019 4:42 PM CDT us Shy Cosme MD POCT ORDERABLES - DEVICE Final Result Performing Organization Address [facility] de Phone Number [facility] ORDERS INTERFACE US * (ABNORMAL) POCT glucose (07/07/2019 12:04 PM CDT) GLUCOSE POC 160(H) 70 - 110 mg/dL 07/07/2019 12:20 PM CDT [facility] ORDERS INTERFACE 07/07/2019 12:0 4 PM CDT us Shy Cosme MD POCT ORDERABLES - DEVICE Final Result Performing Organization Address [facility] de Phone Number [facility] ORDERS INTERFACE US * POCT glucose (07/07/2019 6:14 AM CDT) GLUCOSE POC 94 70 - 110 mg/dL 07/07/2019 12:20 PM CDT [facility] ORDERS INTERFACE 07/07/2019 6:14 AM CDT us Shy Cosme MD POCT ORDERABLES - DEVICE Final Result Performing Organization Address [facility] Co de Phone Number [facility] ORDERS INTERFACE US * (ABNORMAL) POCT glucose (07/06/2019 8:26 PM CDT) GLUCOSE POC 147(H) 70 - 110 mg/dL 07/06/2019 9:00 PM CDT [facility] ORDERS INTERFACE 07/06/2019 8:26 PM CDT Shy Cosme MD POCT ORDERABLES - DEVICE Final Result [facility] ORDERS INTERFACE US * POCT glucose (07/06/2019 5:22 PM CDT) GLUCOSE POC 81 70 - 110 mg/dL 07/06/2019 5:29 PM CDT [facility] ORDERS INTERFACE 07/06/2019 5:22 PM CDT us Shy Cosme MD POCT ORDERABLES - DEVICE Final Result Performing Organization Address [facility] Co de Phone Number [facility] ORDERS INTERFACE US documented in this encounter Visit Diagnoses Diagnosis Physical deconditioning- Primary Debility, unspecified Essential hypertension Unspecified essential hypertension E-coli UTI Urinary tract infection, site not specified documented in this encounter Administered Medications Inactive Administered Medications - up to 3 most recent administrations Medication Order MAR Action Action Date Dose Rate Site amLODIPine (NORVASC) tablet 5 mg 5 mg, Oral, Daily, First dose on 07/15/19 at 1445, Until Discontinued Given 07/18/2019 9:45 AM CDT 5 mg Given 07/17/2019 8:48 AM CDT 5 mg Given 07/16/2019 8:40 AM CDT 5 mg aspirin chewable tablet 324 mg 324 mg, Oral, Once, 1 dose, On 07/15/19 at 1400 Given 07/15/2019 1:47 PM CDT 324 mg aspirin EC (ECOTRIN) tablet 81 mg 81 mg, Oral, Daily, First dose on 07/16/19 at 0900, Until Discontinued, Do not break, chew, or crush. Given 07/18/2019 9:39 AM CDT 81 mg Given 07/17/2019 8:48 AM CDT 81 mg Given 07/16/2019 8:40 AM CDT 81 mg ceFAZolin (ANCEF) 2 g in sterile water 20 mL IV 2 g, Intravenous, at 240 mL/hr, Every 8 hours, 5 doses, First dose (after last modification) on Veronica 07/06/19 at 1800, Last dose on Wed07/08/19 at 0200, Discharge Readmit Given 07/08/2019 3:44 AM CDT 2 g 240 mL/hr Given 07/07/2019 6:15 PM CDT 2 g 240 mL/hr Given 07/07/2019 11:46 AM CDT 2 g 240 mL/hr cephALEXin (KEFLEX) capsule 250 mg 250 mg, Oral, Every 6 hours scheduled (4 times per day), 19 doses, First dose on Wed07/08/19 at 0600, Last dose on Wed07/12/19 at 1800 Given 07/12/2019 5:25 PM CDT 250 mg Given 07/12/2019 12:19 PM CDT 250 mg Given 07/12/2019 6:09 AM CDT 250 mg donepezil (ARICEPT) tablet 10 mg 10 mg, Oral, Every morning, First dose on Wed07/08/19 at 0700, Until Discontinued Given 07/18/2019 6:32 AM CDT 10 mg Given 07/17/2019 6:09 AM CDT 10 mg Given 07/16/2019 5:00 AM CDT 10 mg famotidine (PEPCID) injection 20 mg 20 mg, Intravenous, Daily, First dose (after last modification) on Wed07/07/19 at 0900, Until Discontinued, Give if unable to take PO. IV Push over 2 minutes, Discharge Readmit famotidine (PEPCID) tablet 20 mg 20 mg, Oral, Daily, First dose (after last modification) on Wed07/07/19 at 0900, Until Discontinued, Discharge Readmit Given 07/18/2019 9:39 AM CDT 20 mg Given 07/17/2019 8:48 AM CDT 20 mg Given 07/16/2019 8:40 AM CDT 20 mg furosemide (LASIX) tablet 20 mg 20 mg, Oral, Daily, First dose on 07/16/19 at 1545, Until Discontinued Given 07/18/2019 9:45 AM CDT 20 mg Given 07/17/2019 8:48 AM CDT 20 mg Given 07/16/2019 4:09 PM CDT 20 mg heparin (porcine) injection 5,000 Units 5,000 Units, Subcutaneous, Every 12 hours scheduled (2 times per day), First dose (after last modification) on Veronica 07/06/19 at 2100, Until Discontinued, Discharge Readmit Given 07/18/2019 9:40 AM CDT 5,000 Units Right Lower Abdomen Given 07/17/2019 8:13 PM CDT 5,000 Units R ight Lower Abdomen Given 07/17/2019 8:48 AM CDT 5,000 Units R ight Lower Abdomen hydrALAZINE (APRESOLINE) injection 5 mg 5 mg, Intravenous, Every 6 hours PRN, Other, PRN systolic blood pressure greater than 160 or diastolic blood pressure greater than 90, Starting on 07/15/19 at 1424, Until Wed07/18/19 at 1507, Monitor HR and BP before dose and 15 min after IV dose. For IV push give over 1-2 minutes=5mg/min. HYDROcodone-acetaminophen (NORCO) 10-325 MG tablet 1 tablet 1 tablet, Oral, Every 4 hours PRN, Moderate pain (Scale 4 - 7), Starting on 07/10/19 at 2118, Until Wed07/18/19 at 1507, Maximum dose of acetaminophen is 4000 mg from all sources in 24 hours. insulin lispro (HUMALOG) injection 0-14 Units 0-14 Units, Subcutaneous, 3 times daily before meals, First dose (after last modification) on [facility] 07/06/19 at 1615, Until Discontinued, Blood Glucose (SENSITIVE Dosing): [Less than 70:? Initiate Hypoglycemia Standing Orders] [71-140: 0 units] [141-180: 2 units] [181-220: 4 units] [221-260: 6 units] [261-300: 8 units] [301-350: 10 units] [351-400: 12 units] [Greater than 400: 14 units and Call Physician], Discharge Readmit Given 07/11/2019 12:53 PM CDT 2 Units Righ t Arm Given 07/09/2019 6:05 PM CDT 2 Units Ri ght Lower Abdomen Given 07/08/2019 1:07 PM CDT 4 Units Ri ght Lower Abdomen levothyroxine (SYNTHROID) tablet 50 mcg 50 mcg, Oral, Daily (levothyroxine), First dose on [facility] 07/08/19 at 0600, Until Discontinued, Take 1 tablet (50mcg total) by mouth in the morning on Wednesday and Wednesday. Avoid iron, calcium, and antacids within 4 hours of administration. Given 07/18/2019 6:32 AM CDT 50 mcg Given 07/17/2019 6:09 AM CDT 50 mcg Given 07/16/2019 5:00 AM CDT 50 mcg lisinopril (PRINIVIL) tablet 10 mg 10 mg, Oral, Daily, First dose on Wed07/07/19 at 1900, Until Discontinued Given 07/18/2019 9:45 AM CDT 10 mg Given 07/17/2019 8:48 AM CDT 10 mg Given 07/16/2019 8:40 AM CDT 10 mg [id number] (MYLANTA MAXIMUM STRENGTH) 7461-7823-840 mg/30mL suspension 10 mL, Oral, Every 4 hours PRN, Indigestion, Heartburn, Starting on Wed07/06/19 at 1553, Until Wed07/18/19 at 1507, Shake Well, Discharge Readmit Given 07/09/2019 11:48 PM CDT 10 mLs melatonin tablet 3 mg 3 mg, Oral, Nightly at bedtime, First dose (after last modification) on Wed07/06/19 at 2100, Until Discontinued, Discharge Readmit Given 07/17/2019 8:13 PM CDT 3 mg Given 07/16/2019 8:43 PM CDT 3 mg Given 07/15/2019 8:11 PM CDT 3 mg nitroglycerin (NITROSTAT) SL tablet 0.4 mg 0.4 mg, Sublingual, Every 5 min PRN, Chest Pain, Starting on 07/15/19 at 1328, Until Wed07/18/19 at 1507 Given 07/15/2019 1:33 PM CDT 0.4 mg potassium chloride CR (KLOR-CON M) tablet 10 mEq 10 mEq, Oral, Daily with breakfast, First dose on Wed07/17/19 at 0800, Until Discontinued, Do not chew, crush, or suck on tablet. May break in half. May dissolve whole tablet in 120 mL of water and drink immediately. Given 07/18/2019 9:39 AM CDT 10 mEq Given 07/17/2019 8:48 AM CDT 10 mEq potassium chloride CR (KLOR-CON M) tablet 20 mEq 20 mEq, Oral, Daily with lunch, 1 dose, First dose on Wed07/07/19 at 1230, Do not chew, crush, or suck on tablet. May break in half. May dissolve whole tablet in 120 mL of water and drink immediately. Given 07/07/2019 12:42 PM CDT 20 mEq potassium chloride CR (KLOR-CON M) tablet 20 mEq 20 mEq, Oral, Once, 1 dose, On Wed07/07/19 at 1700, Do not chew, crush, or suck on tablet. May break in half. May dissolve whole tablet in 120 mL of water and drink immediately. Given 07/07/2019 5:24 PM CDT 20 mEq potassium chloride CR (KLOR-CON M) tablet 20 mEq 20 mEq, Oral, Daily with lunch, 1 dose, First dose (after last reorder) on 07/08/19 at 1200, Do not chew, crush, or suck on tablet. May break in half. May dissolve whole tablet in 120 mL of water and drink immediately. Given 07/08/2019 1:08 PM CDT 20 mEq potassium chloride CR (KLOR-CON M) tablet 20 mEq 20 mEq, Oral, Once, 1 dose, On 07/08/19 at 1700, Do not chew, crush, or suck on tablet. May break in half. May dissolve whole tablet in 120 mL of water and drink immediately. Given 07/08/2019 5:34 PM CDT 20 mEq pravastatin (PRAVACHOL) tablet 40 mg 40 mg, Oral, Nightly at bedtime, First dose on Wed07/07/19 at 2100, Until Discontinued Given 07/17/2019 8:12 PM CDT 40 mg Given 07/16/2019 8:43 PM CDT 40 mg Given 07/15/2019 8:11 PM CDT 40 mg sertraline (ZOLOFT) tablet 100 mg 100 mg, Oral, Every morning, First dose on 07/08/19 at 0700, Until Discontinued Given 07/18/2019 6:32 AM CDT 100 m g Given 07/17/2019 6:09 AM CDT 100 mg Given 07/16/2019 5:00 AM CDT 100 mg traZODone (DESYREL) tablet 50 mg 50 mg, Oral, Nightly at bedtime, First dose on Wed07/07/19 at 2100, Until Discontinued Given 07/17/2019 8:13 PM CDT 50 mg Given 07/16/2019 8:43 PM CDT 50 mg Given 07/15/2019 8:12 PM CDT 50 mg documented in this encounter Active and Recently Administered Medications Times are shown in CDT. Scheduled Medication Order 07/16/2019 07/17/2019 07/18/2019 amLODIPine (NORVASC) tablet 5 mg 5 mg, Oral, Daily, First dose on 07/15/19 at 1445, Until Discontinued 0840 (Given - Provider: She Thompson RN) 0848 (Given - Provider: Claribel Diaz, KAILEE) 0945 (Given - Provider: Leticia Grove, RN) aspirin EC (ECOTRIN) tablet 81 mg 81 mg, Oral, Daily, First dose on Wed07/16/19 at 0900, Until Discontinued, Do not break, chew, or crush. 0840 (Given - Provider: She Thompson RN) 0848 (Given - Provider: Claribel Diaz RN) 0939 (Given - Provider: Leticia Grove, RN) donepezil (ARICEPT) tablet 10 mg 10 mg, Oral, Every morning, First dose on Wed07/08/19 at 0700, Until Discontinued 0500 (Given - Provider: Imelda Henley, KAILEE) 0609 (Given - Provider: Imelda Henley, KAILEE) 0632 (Given - Provider: Julia Rodríguez RN) famotidine (PEPCID) injection 20 mg(Linked Group 1) 20 mg, Intravenous, Daily, First dose (after last modification) on Wed07/07/19 at 0900, Until Discontinued, Give if unable to take PO. IV Push over 2 minutes, Discharge Readmit 0840 (See Alternative - Provider: She Thompson RN) 0848 (See Alternative - Provider: Claribel Diaz RN) 0939 (See Alternative - Provider: Leticia Grove, KAILEE) famotidine (PEPCID) tablet 20 mg(Linked Group 1) 20 mg, Oral, Daily, First dose (after last modification) on Wed07/07/19 at 0900, Until Discontinued, Discharge Readmit 0840 (Given - Provider: She Thompson RN) 0848 (Given - Provider: Claribel Diaz RN) 0939 (Given - Provider: Leticia Grove, RN) furosemide (LASIX) tablet 20 mg 20 mg, Oral, Daily, First dose on Wed07/16/19 at 1545, Until Discontinued 1609 (Given - Provider: She Thompson RN) 0848 (Given - Provider: Claribel Diaz RN) 0945 (Given - Provider: Leticia Grove RN) heparin (porcine) injection 5,000 Units(Linked Group 2) 5,000 Units, Subcutaneous, Every 12 hours scheduled (2 times per day), First dose (after last modification) on Veronica 07/06/19 at 2100, Until Discontinued, Discharge Readmit 0840 (Given - Provider: She Thompson RN)2041 (Given - Provider: Imelda Henley RN) 0848 (Given - Provider: Claribel Diaz RN)2012 (Given - Provider: Julia Rodríguez RN) 0940 (Given - Provider: Leticia Grove RN) levothyroxine (SYNTHROID) tablet 50 mcg 50 mcg, Oral, Daily (levothyroxine), First dose on 07/08/19 at 0600, Until Discontinued, Take 1 tablet (50mcg total) by mouth in the morning on Wednesday and Wednesday. Avoid iron, calcium, and antacids within 4 hours of administration. 0500 (Given - Provider: Imelda Henley RN) 0609 (Given - Provider: Imelda Henley RN) 0632 (Given - Provider: Julia Rodríguez, KAILEE) lisinopril (PRINIVIL) tablet 10 mg 10 mg, Oral, Daily, First dose on Wed07/07/19 at 1900, Until Discontinued 0840 (Given - Provider: She Thompson RN) 0848 (Given - Provider: Claribel Diaz RN) 0945 (Given - Provider: Leticia Grove RN) melatonin tablet 3 mg 3 mg, Oral, Nightly at bedtime, First dose (after last modification) on Veronica 07/06/19 at 2100, Until Discontinued, Discharge Readmit 2042 (Given - Provider: Imelda Henley RN) 2012 (Given - Provider: Julia R Rodríguez, RN) potassium chloride CR (KLOR-CON M) tablet 10 mEq 10 mEq, Oral, Daily with breakfast, First dose on 07/17/19 at 0800, Until Discontinued, Do not chew, crush, or suck on tablet. May break in half. May dissolve whole tablet in 120 mL of water and drink immediately. 0848 (Given - Provider: Claribel Diaz RN) 0939 (Given - Provider: Leticia Grove RN) pravastatin (PRAVACHOL) tablet 40 mg 40 mg, Oral, Nightly at bedtime, First dose on Wed07/07/19 at 2100, Until Discontinued 2042 (Given - Provider: Imelda Henley RN) 2011 (Given - Provider: Julia Rodríguez, RN) sertraline (ZOLOFT) tablet 100 mg 100 mg, Oral, Every morning, First dose on Wed07/08/19 at 0700, Until Discontinued 0500 (Given - Provider: Imelda Henley RN) 0609 (Given - Provider: Imelda Henley RN) 0632 (Given - Provider: Julia Rodríguez, RN) traZODone (DESYREL) tablet 50 mg 50 mg, Oral, Nightly at bedtime, First dose on Wed07/07/19 at 2100, Until Discontinued 2042 (Given - Provider: Imelda Henley RN) 2012 (Given - Provider: Julia Rodríguez, RN) PRN Medication Order 07/16/2019 07/17/2019 07/18/2019 acetaminophen (TYLENOL) tablet 650 mg 650 mg, Oral, Every 4 hours PRN, Mild pain (Scale 1 - 3), Starting on Veronica 07/06/19 at 1553, Until Wed07/18/19 at 1507, Maximum dose of acetaminophen is 4000 mg from all sources in 24 hours., Discharge Readmit hydrALAZINE (APRESOLINE) injection 5 mg 5 mg, Intravenous, Every 6 hours PRN, Other, PRN systolic blood pressure greater than 160 or diastolic blood pressure greater than 90, Starting on 07/15/19 at 1424, Until Wed07/18/19 at 1507, Monitor HR and BP before dose and 15 min after IV dose. For IV push give over 1-2 minutes=5mg/min. HYDROcodone-acetaminophen (NORCO) 10-325 MG tablet 1 tablet 1 tablet, Oral, Every 4 hours PRN, Moderate pain (Scale 4 - 7), Starting on 07/10/19 at 2118, Until Wed07/18/19 at 1507, Maximum dose of acetaminophen is 4000 mg from all sources in 24 hours. [id number]-[id number] (MYLANTA MAXIMUM STRENGTH) 6589-5680-680 mg/30mL suspension 10 mL, Oral, Every 4 hours PRN, Indigestion, Heartburn, Starting on Wed07/06/19 at 1553, Until Wed07/18/19 at 1507, Shake Well, Discharge Readmit nitroglycerin (NITROSTAT) SL tablet 0.4 mg 0.4 mg, Sublingual, Every 5 min PRN, Chest Pain, Starting on 07/15/19 at 1328, Until Wed07/18/19 at 1507 ondansetron (ZOFRAN) injection 4 mg 4 mg, Intravenous, Every 8 hours PRN, Nausea, Vomiting, Starting on Wed07/06/19 at 1553, Until Wed07/18/19 at 1507, IV push over 2-5 minutes., Discharge Readmit Senna (SENOKOT) 8.6 MG tablet 8.6 mg 8.6 mg, Oral, Daily as needed, Constipation, Starting on Wed07/06/19 at 1553, Until Wed07/18/19 at 1507, If both senna and polyethylene glycol are ordered, use as 2nd choice., Discharge Readmit Linked Groups Order Group 1: famotidine (PEPCID) injection 20 mgJump to med 20 mg, Intravenous, Daily, First dose (after last modification) on Wed07/07/19 at 0900, Until Discontinued, Give if unable to take PO. IV Push over 2 minutes, Discharge Readmit Or famotidine (PEPCID) tablet 20 mgJump to med 20 mg, Oral, Daily, First dose (after last modification) on Wed07/07/19 at 0900, Until Discontinued, Discharge Readmit Group 2: heparin (porcine) injection 5,000 UnitsJump to med 5,000 Units, Subcutaneous, Every 12 hours scheduled (2 times per day), First dose (after last modification) on Wed07/06/19 at 2100, Until Discontinued, Discharge Readmit And Assess Sequential Compression Device (Assess skin at a minimum of every shift) (CANCELED) Routine, Every shift, First occurrence on Veronica 07/06/19 at 1636, Discharge Readmit And Maintain Sequential Compression Device (COMPLETED) Routine, Daily, First occurrence on Wed07/07/19 at 0600, Discharge Readmit documented in this encounter Care Teams Pole Maker Relationship Specialty Start Date End Date Elaina Jade MD [facility]. [address] [address] PCP - General INTERNAL MEDICINE 08/23/18 03/03/23 Joni Mckeon MD [facility]. [address] [address] Dale Lower In Supervisor CARDIOVASCULAR DISEASE 07/04/18 documented as of this encounter
--- OUTSIDE RECORDS SUMMARY | 2024-04-05 00:21 | XMS_ITS | Encounter Summary ---
Author Organization [facility] Address [address] [place] [address]. [place] [address] [place] [address] Care Team Providers Care Application Support Developer Name Role Phone Joni Mckeon MD Unavailable [phone] Noemi Barnard MD Primary Care Provider [phone] Encounter Details Date Type Department Care Team (Latest Contact Info) Description 06/05/2019 Travel Social History Tobacco Use Types Packs/Day [...] on file documented as of this encounter Plan of Treatment Not on file documented as of this encounter Visit Diagnoses Not on filedocumented in this encounter Care Teams Application Support Developer Relationship Specialty Start Date End Date Noemi Barnard MD [facility]. [facility] [address] [place] [address] PCP - General INTERNAL MEDICINE 08/23/18 03/03/23 [facility] [address] [address] Christopher Generator Operator CARDIOVASCULAR DISEASE 07/04/18 documented as of this encounter
--- OUTSIDE RECORDS SUMMARY | 2024-04-05 00:21 | XMS_ITS | Encounter Summary ---
Author Organization [facility] Address [address] [place] [address]. [place] [address] [place] [address] Care Team Providers Care It Field Technician Name Role Phone Joni Mckeon MD Unavailable [phone] Noemi Barnard MD Primary Care Provider [phone] Encounter Details Date Type Department Care Team (Latest Contact Info) Description 06/12/2019 Travel Social History Tobacco Use Types Packs/Day [...] on filedocumented in this encounter Care Teams It Field Technician Relationship Specialty Start Date End Date Noemi Barnard MD [facility]. [facility] [address] [place] [address] PCP - General INTERNAL MEDICINE 08/23/18 03/03/23 [facility] [address] [address] Christopher Fur Tanner CARDIOVASCULAR DISEASE 07/04/18 documented as of this encounter
--- OUTSIDE RECORDS SUMMARY | 2024-04-05 00:21 | XMS_ITS | Encounter Summary ---
Author Organization [facility] Address [address] [place] [address]. [place], [place] [id number] [place] [id number] Care Team Providers Care Circular Knife Cutter Machine Name Role Phone Joni Mckeon MD Unavailable [phone] Noemi Barnard MD Primary Care Provider [phone] Encounter Details Date Type Department Care Team (Latest Contact Info) Description 07/03/2019 Travel Social History Tobacco Use Types Packs/Day [...] have Coronavirus / COVID-19? No / Unsure 07/03/2019 5:08 PM CDT documented as of this encounter Functional Status * Question Answer Date of Assessment Author Status Do you have serious difficulty walking or climbing stairs? Yes 07/03/2019 5:23 PM CDT Kimberly Jarvis I, RN Acti ve * Question Answer Date of Assessment Author Status Do you have difficulty dressing or bathing? No 07/03/2019 5:23 PM Kimberly Morales RN Active Because of a physical, mental, or emotional condition, do you have difficulty doing errands alone such as visiting a doctor's office or shopping? Yes 07/03/2019 5:23 PM Mirtha Morales RN Active * RETIRED Are you deaf [...] Assessment Author Status Yes 07/03/2019 5:23 PM Kimberly Morales R N Active * Do you have difficulty dressing or bathing? Answer Date of Assessment Author Status No 07/03/2019 5:23 PM Kimberly Morales R N Active * Because of a physical, mental, or emotional condition, do you have difficulty doing errands alone such as visiting a doctor's office or shopping? Answer Date of Assessment Author Status Yes 07/03/2019 5:23 PM Kimberly Morales R N Active documented as of this [...] filedocumented in this encounter Care Teams Circular Knife Cutter Machine Relationship Specialty Start Date End Date Noemi Barnard MD [address] [address] PCP - General INTERNAL MEDICINE 08/23/18 03/03/23 Joni Mckeon MD Three [facility]. [address] [address] [place] [employer] CARDIOVASCULAR DISEASE 07/04/18 documented as of this encounter
--- OUTSIDE RECORDS SUMMARY | 2024-04-05 00:21 | XMS_ITS | Encounter Summary ---
Author Organization [facility] Address [address] [place] [address]. [place] [address] [place] [address] Care Team Providers Care Development Technician Name Role Phone Joni Mckeon MD Unavailable [phone] Elaina Jade MD Primary Care Provider Reason for Visit * Reason Comments Fever 75 Years Or Older Weakness Encounter Details Date Type Department Care Team (Late st Contact Info) Description 07/02/2019 3:40 PM CDT - 07/02/2019 9:57 PM CDT Emergency [facility] Emergency Room [address] [place] [address] Osvaldo Baldwin MD [address] [place] [id number] Vance Daley DO Fever 75 Years Or Older; Weakness Discharge Disposition: Home or Self Care (Routine [...] have Coronavirus / COVID-19? No / Unsure 07/02/2019 7:43 PM CDT documented as of this encounter Last Filed Vital Signs Vital Sign Reading Time Taken Comments Blood Pressure 111/49 07/02/2019 8:15 PM CDT Pulse 71 07/02/2019 8:15 PM CDT Temperature 36.6 ??C (97.9 ??F) 07/02/2019 8:15 PM CD T Respiratory Rate 22 07/02/2019 8:15 PM CDT Oxygen Saturation 94% 07/02/2019 8:15 PM CDT Inhaled Oxygen Concentration - - Weight 61.2 kg (135 lb) 07/02/2019 3:43 PM CDT Height 162.6 cm (5' 4 ) 07/02/2019 3:43 PM CDT Body Mass Index 23.17 07/02/2019 3:43 PM CDT documented in this encounter Discharge Instructions * Discharge Instructions* Vance Daley, DO - 07/02/2019 9:31 PM CDT You have evidence of a urinary tract infection. Antibiotics were called in to your pharmacy. Antibiotics by mouth usually cure urinary tract infections, but sometimes your infection may be resistant to oral antibiotics. If you are having worsening symptoms, unable to keep food down, or have any newor concerning symptoms develop, please come back to the hospital for evaluation. You should follow-up with your doctor sometime next week for reassessment. You also had low potassium and low magnesium on your blood work. We gave you potassium and magnesium through your IV, and your levels should now be normal. You should talk to your primary care physician and see if he or she wants to recheck your levels sometime next week. If your levels are consistently low, you may need to adjust your diet or consider prescription supplements. This will be the decision of your primary care physician. To help control your fever, you can take tylenol (acetaminophen) 1000mg every 4- 6 hours as needed. You can also take motrin (ibuprofen) 400mg every 6 hours as needed. You should try just tylenol if you can though as long-term motrin use is not recommended in older adults due to negative effects on the kidneys and stomach. It is ok to use occasionally or for just a few days, however. Thank you for allowing us to participate in your medical care, and feel better soon. -Dr. Vance Daley * Attachments The following attachments cannot be sent through Care Everywhere. * Urinary Tract Infection Discharge Instructions, Adult (Hebrew) * Hypokalemia (Hebrew) documented in this encounter Medications at Time [...] MOUTH DAILY 90 tablet 1 06/20/2019 0 amlodipine-benaz epril 5-20 MG capsule Take 1 capsule by mouth daily. 90 capsule 3 09/21/2018 0 BENAZEPRIL 20 MG tablet [The details [...] for 7 days. 21 capsule 07/02/2019 [address] 25 MG tablet Take 1 tablet (25 mg total) by mouth every morning. 90 tablet 3 09/21/2018 0 levothyroxine 50 MCG tabletIndication s:Hypothyroidism Indications: Underactive Thyroid Take 1 tablet (50mcg total) by mouth in the morning on Wednesday and Wednesday. 03/08/2019 0 PRAVASTATIN 40 MG tabletIndication s:Hyperlipidemia TAKE [...] as of this encounter Progress Notes * Nubia Allen NP - 07/02/2019 9:57 PM CDT Admitted documented in this encounter ED Notes * Vance Daley DO - 07/02/2019 7:19 PM CDT [place], [place] EMERGENCY DEPARTMENT ENCOUNTER HISTORICAL INFORMATION Primary Care Doctor: ELAINA JADE MD Provider at Bedside Date/Time Event User Comments 07/02/19 1540 Provider at Bedside Assessing Patient OSVALDO BALDWIN CHIEF COMPLAINT Fever 75 Years Or Older and Weakness PHYSICAL EXAM VITAL SIGNS: Filed Vitals: 07/02/19 1543 07/02/19 1747 07/02/19 1843 07/02/19 1904 BP: 134/56 142/64 124/52 Pulse: 88 83 Resp: 18 18 18 Temp: 100.3 ??F (37.9 ??C) 101.5 ??F (38.6 ??C) 101.3 ??F (38.5 ??C) 101.8 ??F (38.8 ??C) TempSrc: Temporal Temporal Temporal Temporal SpO2: 96% 93% Weight: 61.2 kg (135 lb) Height: 5' 4 (1.626 m) Constitutional: no acute distress, alert, no signs of trauma HEENT: PER, moist oral mucosa Neck: trachea-midline Respiratory: no respiratory distress, speaking in full sentences Cardiovascular: well-perfused Musculoskeletal: no overt deformities Skin: grossly intact, warm, dry Neurologic: alert Psych: cooperative, appropriate mood and [id number] Pulse Oximetry Interpretation Saturation: 95% Oxygen Delivery: room air Interpretation: normal Rhythm Strip Interpretation (interpreted by ED provider) Rhythm: sinus Ventricular Rate: 83 DDX/MDM Patient care transitioned at 1900 from day-team ED physician Dr. Baldwin to f/u potassium and magnesium infusion and reassessment; please see his note for full HPI and initial assessment. 83F presenting with 1-wk of non-specific symptoms, generalized weakness, feeling unwell, difficulty urinating . No pain. No sick contacts. Arrives febrile but otherwise unremarkable vitals. Initial provider exam unremarkable. Patient's labs reveal evidence of urinary tract infection as well as hypokalemia and hypomagnesemia. Ceftriaxone ordered for UTI; electrolyte repletement ordered as well. Initial provider had long discussion with patient and her family members regarding risks/benefits of hospitalization vs discharge home with PO antibiotics. Both reasonable choices. Family and patientare reliable for follow- up and would prefer to d/c home. Understand return precautions. Will f/u nader ssessment after infusion and anticipate d/c home. PROGRESS NOTES 2113: patient symptomatically feeling much better; fever much improved after tylenol and motrin. Has roughly 30-min left on infusion. She is ambulatory to restroom without assistance or gait abnormality. Will plan for d/c home, family called to come pick her up. Amount and/or Complexity of Data Reviewed Triage notes and available nursing notes reviewed Clinical lab tests: ordered and reviewed Tests in the radiology section: ordered and reviewed Independent visualization of images, tracings: yes Decide to obtain previous medical records or to obtain history from someone other than the patient:yes Review and summarize past medical records: yes Discuss the patient with other providers: yes FINAL IMPRESSION 1. UTI 2. Hypokalemia 3. Hypomagnesemia Patient's workup is negative for emergent pathology requiring hospitalization or higher level of care. Patient is to follow-up with their primary physician for further workup and management. I discussed specific discharge instructions with the patient as well as precautions for return to the ED. Patient vocalizes understanding of plan and return precautions. Educational information with return precautions was also provided to the patient. DISPO home VANCE A DERDO Vance VAZQUEZ DO 07/02/19 2157 * Osvaldo Baldwin MD - 07/02/2019 3:48 PM CDT Chief Complaint Chief Complaint Patient presents with ??? Fever 75 Years Or Older ??? Weakness History of Present Illness There is an 83-year-old female with a history of hypertension hypercholesterolemia diabetes here with 1 week of multiple symptoms including generalized weakness, dyspnea and difficulty urinating. Patient denies focal pain. No focal neurologic complaints. No known sick contacts. [facility] cases. Patient does report chronic rhinorrhea and chronic nonproductive cough for over a month that is unchanged today. Medical History ALLERGIES: Allergies Allergen Reactions ??? Septra [Sulfamethoxazole-Trimethoprim] Rash MEDICATIONS: Prior to Admission medications Medication Sig Start Date End Date Taking? Authorizing Provider AMLODIPINE 5 MG tablet TAKE 1 TABLET BY MOUTH DAILY 06/20/19 Yes Joni Mckeon MD amlodipine-benazepril 5-20 MG capsule Take 1 capsule by mouth daily. 09/21/18 Yes Joni Mckeon MD aspirin EC 81 MG EC tablet Take 1 tablet by mouth daily. 01/03/18 Yes Elaina Jade MD BENAZEPRIL 20 MG tablet TAKE 1 TABLET BY MOUTH EVERY DAY 06/20/19 Yes Joni Mckeon MD Cholecalciferol (VITAMIN D) 2000 units Cap Take 1 capsule by mouth daily. 01/03/18 Yes Elaina Jade MD donepezil 10 MG Tab Take by mouth every morning. Yes Doc Abstract hydrochlorothiazide 25 MG tablet Take 1 tablet (25 mg total) by mouth every morning. 09/21/18 Yes Joni Mckeon MD levothyroxine 50 MCG tablet Take 1 tablet (50mcg total) by mouth in the morning on Wednesday and Wednesday. 03/08/19 Yes Joni Mckeon MD PRAVASTATIN 40 MG tablet TAKE 1 TABLET BY MOUTH AT BEDTIME 05/15/19 Yes Elaina Jade MD RANITIDINE 300 MG tablet TAKE 1 TABLET BY MOUTH EVERY NIGHT AT BEDTIME 05/23/19 Yes Elaina Jade MD sertraline 100 MG tablet Take 100 mg by mouth every morning. Yes Doc Abstract trazodone 50 MG tablet Take 50 mg by mouth nightly at bedtime. Yes Doc Abstract PAST MEDICAL HISTORY: Past Medical [...] Review of Systems Review of Systems Constitutional: Negative. Negative for fever. HENT: Negative. Respiratory: Negative for cough, chest tightness and shortness of breath. Cardiovascular: Negative. Negative for chest pain. Gastrointestinal: Negative for abdominal distention and abdominal pain. Musculoskeletal: Negative. Neurological: Negative for seizures and syncope. Psychiatric/Behavioral: Negative. All other systems reviewed and are negative. Physical Exam Filed Vitals: 07/02/19 1543 BP: 134/56 Pulse: 88 Resp: 18 Temp: 100.3 ??F (37.9 ??C) TempSrc: Temporal SpO2: 96% Weight: 61.2 kg (135 lb) Height: 5' 4 (1.626 m) Physical Exam Constitutional: She is oriented to person, place, and time. She appears well- developed and well-nourished. No distress. HENT: Head: Normocephalic and atraumatic. Eyes: Pupils are equal, round, and reactive to light. No scleral icterus. Neck: Normal range of motion. Neck supple. Cardiovascular: Normal rate, regular rhythm, normal heart sounds and intact distal pulses. Pulmonary/Chest: Effort normal and breath sounds normal. No stridor. No respiratory distress. She has no wheezes. Abdominal: Soft. Bowel sounds are normal. She exhibits no distension. Musculoskeletal: Normal range of motion. She exhibits no edema or deformity. Neurological: She is alert and oriented to person, place, and time. No cranial nerve deficit. Skin: Skin is warm and dry. Capillary refill takes less than 2 seconds. No rash noted. Psychiatric: She has a normal mood and affect. Her behavior is normal. Nursing note and vitals reviewed. Diagnostic Studies / Procedures ELECTROCARDIOGRAMS: Results for orders placed or performed during the hospital encounter of 07/02/19 [address] 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: : 1935 Requested By: OSVALDO BALDWIN Order Number: [id number] Reading MD: Measurements Intervals [place] Rate: 87 P: NC: 0 QRS: 102 QRSD: 147 T: 42 QT: 406 QTc: 490 Interpretive Statements ATRIAL FIBRILLATION RIGHT AXIS DEVIATION [QRS AXIS > 100] RIGHT BUNDLE BRANCH BLOCK [120+ ms QRS DURATION, UPRIGHT V1, 40+ ms S IN I/aVL/V4/V5/V6] ST DEPRESSION, CONSIDER SUBENDOCARDIAL INJURY [0.1+ mV ST DEPRESSION] Compared to ECG 01/29/2018 08:23:43 Right-axis deviation now present ST (T wave) deviation now present Sinus bradycardia no longer present First degree AV block no longer present EKG interpreted by me at the time of acquisition: Significant baseline artifact however despite computer read of atrial fibrillation I suspect this rhythm represents sinus rhythm with mild sinus arrhythmia in the setting of a first- degree AV block. QRS, ST segment and T waves appear unchanged from 06/21/2018 LABORATORY STUDIES: No results found for this visit on 07/02/19. IMAGING STUDIES XR CHEST PORTABLE Final Result by User, [id number] (07/01 9363) EXAM: XR CHEST PORTABLE AT 1620 HOURS DATE: 07/02/2019 HISTORY: dyspnea COMPARISON: 07/06/2018 FINDINGS: The right hemidiaphragm remains elevated. The heart appears mildly enlarged. No new consolidation, pneumothorax, or pleural effusions are seen. IMPRESSION: 1. Cardiomegaly. Interpreted By: Mark Anthony Zaman, 07/02/2019 4:42 PM ED Course / Medical Decision Making Is an 83-year-old female with primary complaint of generalized weakness and some degree of dyspnea as a secondary complaint. Patient's exam is non-focal from a cardiopulmonary infectious or neurologic standpoint. Will obtain sepsis labs as well as cardiac rule out labs, chest x-ray, EKG. Patient made stable to the course of her stay. Patient had a notable hypokalemia which was treated with IV potassium. Hypomagnesemia was also present and repleted. UTI was present and ceftriaxone wasinitiated. I suspected that the patient would improve after potassium and magnesium were repleted. I discussed this plan with the oncoming physician at signout who will disposition the patient as appropriate. Clinical Impression None Disposition: Data Unavailable Osvaldo Baldwin MD 07/05/191940 * Todd Amato RN - 07/02/2019 3:45 PM CDT Patient to ED via [facility] with c/o fever, weakness, and cough. Patient states she has had a fever for 3 days. Denies pain. documented in this encounter Plan of Treatment Not on file documented as of this encounter Procedures Procedure Name Priority Date/Time Associated Diagnosis Comments XR CHEST PORTABLE STAT 07/02/2019 4:3 3 PM CDT INFLUENZA A & B STAT 07/02/2019 4:25 PM CDT HC URINALYSIS AUTO W/O MICRO STAT 07/02/2019 4:20 PM CDT URINE BACTERIA CULTURE STAT 0 4:20 PM CDT URINALYSIS MICRO ONLY STAT 07/02/2019 4:20 PM CDT PROCALCITONIN (PCT) STAT 07/02/2019 4 :00 PM CDT COMPREHENSIVE METABOLIC PANEL STAT 07/02/2019 4:00 PM CDT LACTIC ACID STAT 07/02/2019 4:00 PM CDT CULTURE, BACTERIA, BLOOD STAT 07/02/2019 4:00 PM CDT CULTURE, BACTERIA, BLOOD LEXY 07/02/2019 4:00 PM CDT CBC W/DIFF AUTOMATED STAT 07/02/2019 4:00 PM CDT TROPONIN, QUANT STAT 07/02/2019 4:00 PM CDT MAGNESIUM STAT 07/02/2019 4:00 PM CDT ECG 12-LEAD Routine 07/02/2019 3:54 PM CDT documented in this encounter Results * XR CHEST PORTABLE (07/02/2019 4:33 PM CDT) Anatomical Region Laterality Modality Chest Radiographic Lacy ging 07/02/2019 4:42 PM CDT Impressions 07/02/2019 4:43 PM CDT IMPRESSION: 1. Cardiomegaly. Interpreted By: Mark Anthony Zaman, 07/02/2019 4:42 PM Narrative 07/02/2019 4:43 PM CDT EXAM: XR CHEST PORTABLE AT 1620 HOURS DATE: 07/02/2019 HISTORY: dyspnea ? COMPARISON: 07/06/2018 FINDINGS: The right hemidiaphragm remains elevated. The heart appears mildly enlarged. No new consolidation, pneumothorax, or pleural effusions are seen. Procedure Note Mina Zaman MD - 07/02/2019 EXAM: XR CHEST PORTABLE AT 1620 HOURS DATE: 07/02/2019 HISTORY: dyspnea COMPARISON: 07/06/2018 FINDINGS: The right hemidiaphragm remains elevated. The heart appears mildly enlarged. No new consolidation, pneumothorax, or pleuraleffusions are seen. IMPRESSION: 1. Cardiomegaly. Interpreted By: Mark Anthony Zaman, 07/02/2019 4:42 PM us Osvaldo Baldwin MD GENERAL IMAGING Final Resu lt * INFLUENZA A & B (07/02/2019 4:25 PM CDT) SPECIMEN TYPE NASOPHARYNGEAL SWAB 07/02/2019 4:33 PM CDT [facility] INFLUENZA A NEGATIVE NEGATIVE 07/02/2019 4:51 PM CDT [facility] INFLUENZA B NEGATIVE NEGATIVE 07/02/2019 4:51 PM CDT [facility] NASAL STRUCTURE / Unknown 07/02/2019 4:25 PM CDT us Osvaldo Baldwin MD MICROBIOLOGY - GENERAL ORD ERABLES Final Result Performing Organization Address [facility] Co de Phone Number [facility] [address] [place] [address], [place] [phone] * URINALYSIS MICRO ONLY (07/02/2019 4:20 PM CDT) WBC/HPF 25-50 0 - 5 /HPF 07/02/2019 4:45 PM CDT [facility] RBC/HPF 10-25 0 - 5 /HPF 07/02/2019 4:45 PM CDT [facility] EPI/HPF MODERATE /HPF 07/02/2019 4:45 PM CDT [facility] BACTERIA (U) MANY /HPF 07/02/2019 4:45 PM CDT [facility] 07/02/2019 4:20 PM CDT us Osvaldo Baldwin MD URINE ORDERABLES Final Res ult [facility] [address] [place] [address], [place] [phone] * (ABNORMAL) CULTURE URINE (07/02/2019 4:20 PM CDT) SPEC DESCRIPTION URINE STRAIGHT CATH 07/02/2019 4:30 PM CDT [facility] SPECIAL REQUESTS NO SPECIAL REQUEST 07/02/2019 4:30 PM CDT [facility] CULTURE RESULT >100,000 COL/ML ESCHERICHIA COLI (A) 07/05/2019 8:42 AM CDT [facility] URINE SPECIMEN OBTAINED BY SINGLE CATHETERIZATION OF URINARY BLADDER / Unknown 07/02/2019 4:20 PM CDT 07/02/2019 4:32 PM CDT Narrative Organism Antibiotic Method Susceptibility Escherichia [...] Escherichia coli TRIMETH-SULFAMETH. FELIX (VITEK) <=20: Sensitive Osvaldo Baldwin MD MICROBIOLOGY - GENERAL ORD ERABLES Final Result [facility] [address] [place] [address], [place] [phone] [facility] [address] [place] [address], [place] [phone] * (ABNORMAL) URINALYSIS (07/02/2019 4:20 PM CDT) COLOR (U) YELLOW 07/02/2019 4:45 PM CDT [facility] TRANSPARENCY HAZY 07/02/2019 4:45 PM CDT [facility] SPECIFIC GRAVITY (U) 1.025 1.000 - 1.030 07/02/2019 4:45 PM CDT [facility] U PH 5.5 5.0 - 9.0 07/02/2019 4:45 PM CDT [facility] LEUKOCYTES (U) 2+(A) NEGATIVE 07/02/2019 4:45 PM CDT [facility] NITRITES POSITIVE(A) NEGATIVE 07/02/2019 4:45 PM CDT [facility] PROTEIN (U) TRACE(A) NEGATIVE 07/02/2019 4:45 PM CDT [facility] URINE GLUCOSE NEGATIVE NEGATIVE 07/02/2019 4:45 PM CDT [facility] KETONES MG/DL (U) 1+(A) NEGATIVE 07/02/2019 4:45 PM CDT [facility] BILIRUBIN (U) NEGATIVE NEGATIVE 07/02/2019 4:45 PM CDT [facility] BLOOD (U) 2+(A) NEGATIVE 07/02/2019 4:45 PM CDT [facility] URINE, STRAIGHT CATH 07/02/2019 4:20 PM CDT us Osvaldo Baldwin MD URINE ORDERABLES Final Res ult [facility] [address] [place] [address], [place] [phone] * (ABNORMAL) MAGNESIUM (07/02/2019 4:00 PM CDT) MAGNESIUM 1.5(L) 1.8 - 2.4 MG/DL 07/02/2019 4:49 PM CDT [facility] 07/02/2019 4:00 PM CDT us Osvaldo Baldwin MD [facility] Performing Organization Address [facility] de Phone Number [facility] [address] [place] [address], * TROPONIN, QUANT (07/02/2019 4:00 PM CDT) [facility] TROPONIN I <0.017 0.000 - 0.056 ng/mL. 07/02/2019 4:36 PM CDT [facility] Comment: NORMAL: LESS THAN OR EQUAL TO 0.056 NG/ML INDETERMINATE ZONE: 0.056 TO 0.599 NG/ML CONDITIONS RESULTING IN MYOCARDIAL CELL DAMAGE CAN POTENTIALLY INCREASE LEVELS ABOVE THE EXPECTED RANGE. HIGH DOSES OF BIOTIN MAY INTERFERE WITH THIS TEST RESULT. CORRELATION TO CLINICAL HISTORY AND PRESENTATION RECOMMENDED. 07/02/2019 4:00 PM CDT us Osvaldo Baldwin MD LABORATORY Final Resu Performing Organization Address [facility] de Phone Number [facility] [address] [place] [address], * (ABNORMAL) PROCALCITONIN (PCT) (07/02/2019 4:00 PM CDT) Procalcitonin 0.28(H) 0.00 - 0.25 NG/ML 07/02/2019 4:40 PM CDT [facility] Comment: PROCALCITONIN INTERPRETAION GUIDELINES LOWER RESPIRATORY TRACT INFECTIONS (LRTI): USE OF PCT IN INPATIENT OR EMERGENCY SITUATION INITIATION OF ANTIBIOTICS PCT VALUE ? INTERPRETATION <0.10 NG/ML ?ANTIBIOTIC THERAPY ? STRONGLY DISCOURAGED. 0.10-0.25 NG/ML ?ANTIBIOTIC THERAPY ? DISCOURAGED. 0.26-0.50 NG/ML ?ANTIBIOTIC THERAPY ? ENCOURAGED. >0.50 NG/ML ?ANTIBIOTIC THERAPY ? STRONGLY ENCOURAGED. DISCONTINUE ANTIBIOTICS PCT LESS THAN OR EQUAL TO 0.25 NG/ML OR DELTA PCT >80 PERCENT DELTA PCT= PCT(PEAK)-PCT(CURRENT)/PCT(PEAK)X100% STUDIES HAVE EVALUATED PCT PROTOCOLS IN THESE PATIENTS AND FOUND THAT FOR PATIENTS WHO ARE CLINICALLY STABLE AND ARE TREATED AT THE ED OR ARE HOSPITALIZED, THE INITIATION OF ANTIBIOTIC THERAPY SHOULD BE BASED ON CLINICAL GROUNDS AND A PCT VALUE OF GREATER THAN OR EQUAL TO 0.26 NG/ML. IF PCT REMAINS LOWER, ANTIBIOTICS CAN BE WITHHELD AND PATIENTS CAN BE REASSESSED CLINICALLY WITHOUT SAFETY CONCERNS. IF PATIENTS ARE CLINICALLY STABLE, AN ALTERNATIVE DIAGNOSIS SHOULD BE CONSIDERED. IF PATIENTS ARE UNSTABLE, THEN ANTIBIOTICS MAY BE CONSIDERED. IF PATIENTS DO NOT IMPROVE IN THE SHORT FOLLOW UP PERIOD OF 6 TO 12 HOURS, CLINICAL RE-EVALUATION AND RE-MEASUREMENT OF PCT IS RECOMMENDED. 07/02/2019 4:00 PM CDT Osvaldo Baldwin MD LABORATORY Final Resu lt [facility] [address] [place] [address], * CULTURE, BACTERIA, BLOOD (07/02/2019 4:00 PM CDT) SPEC DESCRIPTION BLOOD 07/02/2019 3:48 PM CDT [facility] SPECIAL REQUESTS NO SPECIAL REQUEST 07/02/2019 3:48 PM CDT [facility] CULTURE RESULT NO GROWTH 6 DAYS 07/08/2019 8:36 AM CDT [facility] BLOOD SPECIMEN OBTAINED FOR BLOOD CULTURE / Unknown 07/02/2019 4:00 PM CDT 07/02/2019 4:08 PM CDT Osvaldo Baldwin MD MICROBIOLOGY - GENERAL ORD ERABLES Final Result [facility] [address] [place] [address], [place] [phone] [facility] [address] [place] [address], [place] [phone] * (ABNORMAL) CULTURE, BACTERIA, BLOOD (07/02/2019 4:00 PM CDT) SPEC DESCRIPTION BLOOD 07/02/2019 3:48 PM CDT [facility] SPECIAL REQUESTS NO SPECIAL REQUEST 07/02/2019 3:48 PM CDT [facility] GRAM STAIN RESULT GRAM NEGATIVE RODS 07/03/2019 8:58 AM CDT [facility] GRAM STAIN RESULT POS BLOOD CULTURE GRAM STAIN CALLED TO AND REPEATED BACK BY ABRAN DUGAN IN ER @ 0858 06/23/19 MBJ 07/03/2019 8:58 AM CDT [facility] CULTURE RESULT GROWTH OF ESCHERICHIA COLI (AA) 07/04/2019 5:57 PM CDT [facility] BLOOD SPECIMEN OBTAINED FOR BLOOD CULTURE / Unknown 07/02/2019 4:00 PM CDT 07/02/2019 4:03 PM CDT Narrative Organism Antibiotic Method Susceptibility Escherichia coli AMPICILLIN FELIX (VITEK) 4: Sensitive Escherichia coli AMPICILLIN/SULBACTAM FELIX (VITEK) <=2: Sensitive Escherichia coli CEFTRIAXONE FELIX (VITEK) <=1: Sensitive Escherichia coli CEFTAZIDIME FELIX (VITEK) <=1: Sensitive Escherichia coli CEFAZOLIN FELIX (VITEK) <=4: Sensitive Escherichia coli ESBL FELIX (VITEK) NEG: Sensitive Escherichia coli GENTAMICIN FELIX (VITEK) <=1: Sensitive Escherichia coli LEVOFLOXACIN FELIX (VITEK) <=0.12: Sensitive Escherichia coli PIPRACIL/TAZO FELIX (VITEK) <=4: Sensitive Escherichia coli TRIMETH-SULFAMETH. FELIX (VITEK) <=20: Sensitive Osvaldo Baldwin MD MICROBIOLOGY - GENERAL ORD ERABLES Final Result [facility] [address] [place] [address], [place] [phone] [facility] [address] [place] [address], [place] [phone] * (ABNORMAL) Comprehensive metabolic panel (07/02/2019 4:00 PM CDT) [facility] GLUCOSE 162(H) 70 - 99 MG/DL 07/02/2019 4:36 PM CDT [facility] BUN 22(H) 7 - 18 MG/DL 07/02/2019 4:36 PM CDT [facility] CREATININE S/P/B 1.06(H) 0.55 - 1.02 MG/DL 07/02/2019 4:36 PM CDT [facility] SODIUM S/P/B 136 136 - 145 MMOL/L 07/02/2019 4:36 PM CDT [facility] POTASSIUM S/P/B 2.7(LL) 3.5 - 5.1 MMOL/L 07/02/2019 4:36 PM CDT [facility] Comment:TRACI CALLED CRITICAL R ESULTS AT 02Jul2019 TO AND READ BACK BY TODD DUGAN CHLORIDE S/P/B 98(L) 100 - 108 MMOL/L 07/02/2019 4:36 PM CDT [facility] CO2 25.4 21 - 32 MMOL/L 07/02/2019 4:36 PM [facility] CALCIUM S/P/B 9.1 8.5 - 10.1 MG/DL 07/02/2019 4:36 PM [facility] BILIRUBIN TOTAL S/P/B 0.9 0.2 - 1.2 MG/DL 07/02/2019 4:36 PM [facility] TOTAL PROTEIN S/P/B 6.7 6.4 - 8.2 G/DL 07/02/2019 4:36 PM [facility] ALBUMIN S/P/B 3.3(L) 3.4 - 5.0 G/DL 07/02/2019 4:36 PM [facility] AST 18 15 - 37 U/L 07/02/2019 4:36 PM [facility] ALT 25 14 - 55 U/L 07/02/2019 4:36 PM [facility] ALKALINE PHOSPHATASE S/P/B 72 50 - 136 U/L 07/02/2019 4:36 PM [facility] ANION GAP 12.6 5 - 15 MMOL/L 07/02/2019 4:36 PM [facility] BUN CREATININE RATIO 20.8 6 - 26 07/02/2019 4:36 PM [facility] A/G RATIO 1.0 1.0 - 2.0 RATIO 07/02/2019 4:36 PM [facility] EGFR NON-AFR. AMER. 49(L) >90 ML/MIN/1.7 3 M2 07/02/2019 4:36 PM [facility] EGFR AFR. AMER. 56(L) >90 ML/MIN/1.7 3 M2 07/02/2019 4:36 PM [facility] Comment: NOTE: eGFR is not calculated for patients <18 years of age. This is an estimated GFR (CKD EPI) and should not be used for calculating drug doses. 07/02/2019 4:00 PM CDT us Osvaldo Baldwin MD LABORATORY Final Resu lt Performing Organization Address [facility] Co de Phone Number [facility] [address] [place] [address], [place] [phone] * LACTIC ACID (07/02/2019 4:00 PM CDT) LACTIC ACID VENOUS 0.8 0.4 - 2.0 MMOL/L 07/02/2019 4:28 PM CDT [facility] 07/02/2019 4:00 PM CDT us Osvaldo Baldwin MD LABORATORY Final Resu lt Performing Organization Address [facility] de Phone Number [facility] [address] [place] [address], [place] [phone] * (ABNORMAL) CBC W/DIFF AUTOMATED (07/02/2019 4:00 PM CDT) WBC 8.3 4.4 - 11.0 x10'3/uL 07/02/2019 4:14 PM CDT [facility] RBC 4.37(L) 4.50 - 5.10 x10'6/uL 07/02/2019 4:14 PM CDT [facility] HGB 12.7 12.3 - 15.3 G/DL 07/02/2019 4:14 PM CDT [facility] HCT 37.9 35.9 - 44.6 % 07/02/2019 4:14 PM CDT [facility] MCV 86.7 80.0 - 96.0 FL 07/02/2019 4:14 PM CDT [facility] MCH 29.1 25.3 - 30.9 PG 07/02/2019 4:14 PM CDT [facility] MCHC 33.5 31.0 - 34.1 G/DL 07/02/2019 4:14 PM CDT [facility] RDW 13.3 12.4 - 15.1 % 07/02/2019 4:14 PM CDT [facility] PLT 145(L) 151 - 353 x10'3/uL 07/02/2019 4:14 PM CDT [facility] MPV 9.7 9.6 - 12.0 FL 07/02/2019 4:14 PM CDT [facility] SEG NEUTROPHILS 96(H) 42 - 72 % 0 4:31 PM CDT [facility] LYMPHOCYTES 2(L) 15.8 - 45.0 % 07/02/2019 4:31 PM T [facility] MONOCYTES 2(L) 5.7 - 12.5 % 07/02/2019 4:31 PM CDT [facility] ABS. NEUTROPHILS TOTAL 7.97(H) 1.40 - 6.00 x10'3/uL 07/02/2019 4:31 PM T [facility] ABS. LYMPHOCYTES 0.17(L) 0.80 - 4.70 x10'3/uL 07/02/2019 4:31 PM T [facility] PLT MORPH. NORMAL 07/02/2019 4:31 PM CDT [facility] RBC MORPHOLOGY NORMAL 07/02/2019 4:31 PM T [facility] WBC MORPHOLOGY NORMAL 07/02/2019 4:31 PM T [facility] 07/02/2019 4:00 PM CDT Osvaldo Baldwin MD LABORATORY Final Resu lt [facility] [address] [place] [address], * ECG 12 lead (07/02/2019 3:54 PM CDT) 07/02/2019 3:54 PM CDT Narrative [facility] ([facility]) RAD - 07/02/2019 7:58 PM CDT ?[facility] ? Test Date: ?2019-07-02 Pat Name: ? AVIVA CH ?Department: ? Room: ? EXAM 303 Gender: ? Female ? Senior Data Modeler: ?? : ?1935 ? Requested By: OSVALDO BALDWIN Order Number: [id number] ? Reading : ?? Scott Cabello ? Measurements Intervals ?[place] ? Rate: ? 87 ? P: ? NC: ? 0 ?QRS: ?102 QRSD: ? 147 ?T: ?42 QT: ? 406 ? QTc: ?490 ? Interpretive Statements ATRIAL FIBRILLATION RIGHT AXIS DEVIATION ??[QRS AXIS > 100] RIGHT BUNDLE BRANCH BLOCK ??[120+ ms QRS DURATION, UPRIGHT V1, 40+ ms S IN I/aVL/V4/V5/V6] ST DEPRESSION, CONSIDER SUBENDOCARDIAL INJURY ??[0.1+ mV ST DEPRESSION] Compared to ECG 01/29/2018 08:23:43 Right-axis deviation now present ST (T wave) deviation now present Sinus bradycardia no longer present First degree AV block no longer present Procedure Note Scott Cabello MD - 07/02/2019 [facility] Test Date: 2019-07-02 Pat Name: AVIVA CH Department: Room: EXAM 303 Gender: Female Senior Data Modeler: : 1935 Requested By: OSVALDO BALDWIN Order Number: [id number] Reading MD: Scott Cabello Measurements Intervals [place] Rate: 87 P: NC: 0 QRS: 102 QRSD: 147 T: 42 QT: 406 QTc: 490 Interpretive Statements ATRIAL FIBRILLATION RIGHT AXIS DEVIATION [QRS AXIS > 100] RIGHT BUNDLE BRANCH BLOCK [120+ ms QRS DURATION, UPRIGHT V1, 40+ ms S IN I/aVL/V4/V5/V6] ST DEPRESSION, CONSIDER SUBENDOCARDIAL INJURY [0.1+ mV ST DEPRESSION] Compared to ECG 01/29/2018 08:23:43 Right-axis deviation now present ST (T wave) deviation now present Sinus bradycardia no longer present First degree AV block no longer present us Osvaldo Baldwin MD ECG ORDERABLES Final Resu lt [facility] ([facility]) [facility] documented in this encounter Visit Diagnoses Diagnosis UTI (urinary tract infection)- Primary Urinary tract infection, site not specified Hypokalemia Hypopotassemia Hypomagnesemia Disorders of magnesium metabolism documented in this encounter Administered Medications Inactive Administered Medications - up to 3 most recent administrations Medication Order MAR Action Action Date Dose Rate Site acetaminophen (TYLENOL) tablet 1,000 mg 1,000 mg, Oral, Once, 1 dose, On 07/02/19 at 1800, Maximum dose of acetaminophen is 4000 mg from all sources in 24 hours. Given 07/02/2019 5:59 PM CDT 1,000 mg cefTRIAXone (ROCEPHIN) 1 g in sterile water 10 mL IV 1 g, Intravenous, at 120 mL/hr, Once, 1 dose, On 07/02/19 at 1700 Given 07/02/2019 5:16 PM CDT 1 g 120 mL/hr ibuprofen (MOTRIN) tablet 400 mg 400 mg, Oral, Once, 1 dose, On 07/02/19 at 1945 Given 07/02/2019 7:39 PM CDT 400 mg magnesium sulfate IVPB 2 g 2 g, Intravenous, at 25 mL/hr, Once, 1 dose, On 07/02/19 at 1800 New Bag 07/02/2019 7:33 PM CDT 2 g 25 mL/hr potassium chloride 10 mEq in SW 100 mL IVPB 10 mEq, Intravenous, Administer over 60 Minutes, Every hour scheduled, 2 doses, First dose on 07/02/19 at 1700, Last dose on Wed07/02/19 at 1800, TOTAL DOSE 20 MEQ MAX rate in peripheral line of 10 mEq per hour. New Bag 07/02/2019 7:02 PM CDT 10 mEq 100 mL/hr New Bag 07/02/2019 4:46 PM CDT 10 mEq 100 mL/hr sodium chloride 0.9% infusion at 125 mL/hr, Intravenous, Continuous, Starting on Wed07/02/19 at 1715, Until 07/03/19 at 0005 New Bag 07/02/2019 5:37 PM CDT 125 mL/hr documented in this encounter Active and Recently Administered Medications Times are shown in CDT. Scheduled Medication Order 06/30/2019 07/01/2019 07/02/2019 acetaminophen (TYLENOL) tablet 1,000 mg (COMPLETED) 1,000 mg, Oral, Once, 1 dose, On 07/02/19 at 1800, Maximum dose of acetaminophen is 4000 mg from all sources in 24 hours. 175 (Given - Provid er: Elizabeth Jones RN) cefTRIAXone (ROCEPHIN) 1 g in sterile water 10 mL IV (COMPLETED) 1 g, Intravenous, at 120 mL/hr, Once, 1 dose, On 07/02/19 at 1700 1716 (Given - Provid er: Elizabeth Jones RN) ibuprofen (MOTRIN) tablet 400 mg (COMPLETED) 400 mg, Oral, Once, 1 dose, On 07/02/19 at 1945 1939 (Given - Provid er: Melody Dong RN) magnesium sulfate IVPB 2 g (COMPLETED) 2 g, Intravenous, at 25 mL/hr, Once, 1 dose, On 07/02/19 at 1800 1932 (New Bag - Prov ider: Melody Dong RN)213 (Infusion Stop Time - Provider: Melody Dong RN) potassium chloride 10 mEq in SW 100 mL IVPB (COMPLETED) 10 mEq, Intravenous, Administer over 60 Minutes, Every hour scheduled, 2 doses, First dose on 07/02/19 at 1700, Last dose on Wed07/02/19 at 1800, TOTAL DOSE 20 MEQ MAX rate in peripheral line of 10 mEq per hour. 164 (New Bag - Prov ider: Elizabeth M Jones, RN)1828 (Infusion Stop Time - Provider: Elizabeth Jones, KAILEE)190 (New Bag - Provider: Elizabeth Jones, KAILEE)194 (Infusion Stop Time - Provider: Melody Dong, KAILEE) Continuous Medication Order 06/30/2019 07/01/2019 07/02/2019 sodium chloride 0.9% infusion at 125 mL/hr, Intravenous, Continuous, Starting on 07/02/19 at 1715, Until 07/03/19 at 0005 1737 (New Bag - Prov ider: Elizabeth Jones RN)2132 (Infusion Stop Time - Provider: Melody Dong, KAILEE) documented in this encounter Care Teams Development Technician Relationship Specialty Start Date End Date Elaina Jade MD [facility]. [address] [address] PCP - General INTERNAL MEDICINE 08/23/18 03/03/23 Joni Mckeon MD [facility]. [address] [address] [place]ver CARDIOVASCULAR DISEASE 07/04/18 documented as of this encounter
--- OUTSIDE RECORDS SUMMARY | 2024-04-05 00:21 | XMS_ITS | Encounter Summary ---
Author Organization [facility] Address [address] [place] [address]. [place] [address] [place] [address] Care Team Providers Care Restaurant General Manager Name Role Phone Joni Mckeon MD Unavailable [phone] Noemi Barnard MD Primary Care Provider [phone] Encounter Details Date Type Department Care Team (Latest Contact Info) Description 06/13/2019 Scan HEALTH INFO SRVCS Scanned, Documents Social [...] on filedocumented in this encounter Care Teams Restaurant General Manager Relationship Specialty Start Date End Date Noemi Barnard MD [facility]. [facility] [address] [place] [address] PCP - General INTERNAL MEDICINE 08/23/18 03/03/23 Joni Mckeon MD [facility]. [address] [address] [place] Theater Manager CARDIOVASCULAR DISEASE 07/04/18 documented as of this encounter
--- OUTSIDE RECORDS SUMMARY | 2024-04-05 00:21 | XMS_ITS | Encounter Summary ---
Author Organization [facility] Address [address] [place] [address]. [place] [address] [place] [address] Care Team Providers Care Technology Coach Name Role Phone Joni Mckeon MD Unavailable [phone] Noemi Barnard MD Primary Care Provider [phone] Encounter Details Date Type Department Care Team (Latest Contact Info) Description 06/09/2019 Travel Social History Tobacco Use Types Packs/Day [...] on filedocumented in this encounter Care Teams Technology Coach Relationship Specialty Start Date End Date Noemi Barnard MD [facility]. [facility] [address] [place] [address] PCP - General INTERNAL MEDICINE 08/23/18 03/03/23 Jon[facility] [address] [address] Christopher Doubler Operator CARDIOVASCULAR DISEASE 07/04/18 documented as of this encounter
--- OUTSIDE RECORDS SUMMARY | 2024-04-05 00:21 | XMS_ITS | Encounter Summary ---
Author Organization [facility] Address [address] [place] [address]. [place], [place] [address] [place] [address] Care Team Providers Care Tenoner Operator Name Role Phone Joni Mckeon MD Unavailable [phone] Noemi Barnard MD Primary Care Provider [phone] Encounter Details Date Type Department Care Team (Latest Contact Info) Description 07/02/2019 Travel Social History Tobacco Use Types Packs/Day [...] PM CDT documented as of this encounter Plan of Treatment Not on file documented as of this encounter Visit Diagnoses Not on filedocumented in this encounter Care Teams Tenoner Operator Relationship Specialty Start Date End Date Noemi Barnard MD [facility]. [address] [address] PCP - General INTERNAL MEDICINE 08/23/18 03/03/23 Joni Mckeon MD Three [facility]. [address] [address] [place] [employer] Manager CARDIOVASCULAR DISEASE 07/04/18 documented as of this encounter
--- OUTSIDE RECORDS SUMMARY | 2024-04-05 00:21 | XMS_ITS | Encounter Summary ---
Author Organization [facility] Address [address] [place] [address]. [place] [address] [place] [address] Care Team Providers Care Csr Name Role Phone Joni Mckeon MD Unavailable [phone] Noemi Barnard MD Primary Care Provider [phone] Encounter Details Date Type Department Care Team (Latest Contact Info) Description 05/26/2019 Travel Social History Tobacco Use Types Packs/Day [...] on filedocumented in this encounter Care Teams Csr Relationship Specialty Start Date End Date Noemi Barnard MD [facility]. [facility] [address] [place] [address] PCP - General INTERNAL MEDICINE 08/23/18 03/03/23 Joni Mckeon MD [facility] [address] [address] Christopher Press Set Up CARDIOVASCULAR DISEASE 07/04/18 documented as of this encounter
--- OUTSIDE RECORDS SUMMARY | 2024-04-05 00:21 | XMS_ITS | Encounter Summary ---
Author Organization [facility] Address [address] [place] [address]. [place] [address] [place] [address] Care Team Providers Care Repairer Switchgear Name Role Phone Joni Mckeon MD Unavailable [phone] Noemi Barnard MD Primary Care Provider [phone] Encounter Details Date Type Department Care Team (Latest Contact Info) Description 06/06/2019 Travel Social History Tobacco Use Types Packs/Day [...] on filedocumented in this encounter Care Teams Repairer Switchgear Relationship Specialty Start Date End Date Noemi Barnard MD [facility]. [facility] [address] [place] [address] PCP - General INTERNAL MEDICINE 08/23/18 03/03/23 Joni [facility] [address] [address] Christopher Telephoto Engineer CARDIOVASCULAR DISEASE 07/04/18 documented as of this encounter
--- OUTSIDE RECORDS SUMMARY | 2024-04-05 00:21 | XMS_ITS | Encounter Summary ---
Author Organization [facility] Address [address] [place] [address]. [place], [place] [address] [place] [address] Care Team Providers Care Multiple Drum Sander Name Role Phone Joni Mckeon MD Unavailable [phone] Noemi aBrnard MD Primary Care Provider [phone] Encounter Details Date Type Department Care Team (Latest Contact Info) Description 07/05/2019 Travel Social History Tobacco Use Types Packs/Day [...] PM CDT Kimberly Jarvis R N Active documented as of this encounter Mental Status * Because of a physical, mental, or emotional condition, do you have serious difficulty concentrating, remembering, or making decisions? Answer Entry Date Author Status No 07/03/2019 5:23 PM CDT Kimberly Jarvis R N Active documented in this encounter Plan of Treatment Not on file documented as of this encounter Goals Goal Patient Goal Type Associated Problems Recent Progress Patient-Stated? Author Improve Home Support System General No Laura Cheatham RN documented as of this encounter Visit Diagnoses Not on filedocumented in this encounter Care Teams Multiple Drum Sander Relationship Specialty Start Date End Date Noemi Barnard MD [facility]. [facility] [address] [place] [address] PCP - General INTERNAL MEDICINE 08/23/18 03/03/23 Joni Mckeon MD Three [facility]. [facility] [address] [place] [address] Christopher Syrup Blender CARDIOVASCULAR DISEASE 07/04/18 documented as of this encounter
--- OUTSIDE RECORDS SUMMARY | 2024-04-05 00:21 | XMS_ITS | Encounter Summary ---
Author Organization [facility] Address [address] [place] [address]. [place] [address] [place] [address] Care Team Providers Care Label Pinker Name Role Phone Joni Mckeon MD Unavailable [phone] Noemi Barnard MD Primary Care Provider [phone] Encounter Details Date Type Department Care Team (Latest Contact Info) Description 06/13/2019 Travel Social History Tobacco Use Types Packs/Day [...] on filedocumented in this encounter Care Teams Label Pinker Relationship Specialty Start Date End Date Noemi Barnard MD [facility]. [facility] [address] [place] [address] PCP - General INTERNAL MEDICINE 08/23/18 03/03/23 Joni Mckeon MD [facility] [address] [address] Christopher Automobile Service Advisor CARDIOVASCULAR DISEASE 07/04/18 documented as of this encounter
--- OUTSIDE RECORDS SUMMARY | 2024-04-05 00:21 | XMS_ITS | Encounter Summary ---
Author Organization [facility] Address [address] [place] [address]. [place] [address] [place] [address] Care Team Providers Care Optometrist Assistant Name Role Phone Joni Mckeon MD Unavailable [phone] Noemi Barnard MD Primary Care Provider [phone] Encounter Details Date Type Department Care Team (Latest Contact Info) Description 05/29/2019 Travel Social History Tobacco Use Types Packs/Day [...] on filedocumented in this encounter Care Teams Optometrist Assistant Relationship Specialty Start Date End Date Noemi Barnard MD [facility] [place] [facility]. [facility] [address] [place] [address] PCP - General INTERNAL MEDICINE 08/23/18 03/03/23 Joni [facility] [address] [address] Christopher Bolt Sorter CARDIOVASCULAR DISEASE 07/04/18 documented as of this encounter
--- OUTSIDE RECORDS SUMMARY | 2024-04-05 00:21 | XMS_ITS | Encounter Summary ---
Author Organization [facility] Address [address] [place] [address]. [place] [address] [place] [address] Care Team Providers Care Director Packaging Name Role Phone Joni Mckeon MD Unavailable [phone] Noemi Barnard MD Primary Care Provider [phone] Encounter Details Date Type Department Care Team (Latest Contact Info) Description 05/30/2019 Travel Social History Tobacco Use Types Packs/Day [...] filedocumented in this encounter Care Teams Director Packaging Relationship Specialty Start Date End Date Noemi Barnard MD [facility] [address] [place] [address] PCP - General INTERNAL MEDICINE 08/23/18 03/03/23 Joni Mckeon MD [facility] [address] [address] Christopher Container Finishing Inspector CARDIOVASCULAR DISEASE 07/04/18 documented as of this encounter
--- OUTSIDE RECORDS SUMMARY | 2024-04-05 00:21 | XMS_ITS | Encounter Summary ---
Author Organization [facility] Address [address] [place] [address]. [place] [address] [place] [address] Care Team Providers Care Cheese Cutter Name Role Phone Joni Mckeon MD Unavailable [phone] Noemi Barnard MD Primary Care Provider [phone] Encounter Details Date Type Department Care Team (Latest Contact Info) Description 06/02/2019 Travel Social History Tobacco Use Types Packs/Day [...] on filedocumented in this encounter Care Teams Cheese Cutter Relationship Specialty Start Date End Date Noemi Barnard MD [facility]. [facility] [address] [place] [address] PCP - General INTERNAL MEDICINE 08/23/18 03/03/23 Joni Mckeon MD [facility] [address] [address] Christopher Industrial Sweeper Cleaner CARDIOVASCULAR DISEASE 07/04/18 documented as of this encounter
--- OUTSIDE RECORDS SUMMARY | 2024-04-05 00:22 | XMS_ITS | Encounter Summary ---
Author Organization [facility] Address [address] [place] [address]. [place] [address] [place] [address] Care Team Providers Care Food Photographer Name Role Phone Joni Mckeon MD Unavailable [phone] Noemi Barnard MD Primary Care Provider [phone] Encounter Details Date Type Department Care Team (Latest Contact Info) Description 02/21/2019 Scan HEALTH INFO SRVCS Scanned, Documents Social [...] on filedocumented in this encounter Care Teams Food Photographer Relationship Specialty Start Date End Date Noemi Barnard MD Three [facility]. [facility] [address] [place] [address] PCP - General INTERNAL MEDICINE 08/23/18 03/03/23 Joni Mckeon MD Three [facility]. [address] [address] [place] Undraped Artist Model CARDIOVASCULAR DISEASE 07/04/18 documented as of this encounter
--- OUTSIDE RECORDS SUMMARY | 2024-04-05 00:22 | XMS_ITS | Encounter Summary ---
Author Organization [facility] Address [address] [place] [address]. [place] [address] [place] [address] Care Team Providers Care Assembly Repairer Name Role Phone Joni Mckeon MD Unavailable [phone] Noemi Barnard MD Primary Care Provider [phone] Encounter Details Date Type Department Care Team (Latest Contact Info) Description 04/18/2019 Scan HEALTH INFO SRVCS Scanned, Documents Social [...] on filedocumented in this encounter Care Teams Assembly Repairer Relationship Specialty Start Date End Date Noemi Barnard MD Three [facility]. [facility] [address] [place] [address] PCP - General INTERNAL MEDICINE 08/23/18 03/03/23 Joni Mckeon MD Three [facility]. [address] [address] [place] [employer] Operator CARDIOVASCULAR DISEASE 07/04/18 documented as of this encounter
--- OUTSIDE RECORDS SUMMARY | 2024-04-05 00:22 | XMS_ITS | Encounter Summary ---
Author Organization [facility] Address [address] [place] [address]. [place], [place] [id number] [place] [address] Care Team Providers Care Facilities Project Manager Name Role Phone Joni Mckeon MD Unavailable [phone] Noemi Barnard MD Primary Care Provider [phone] Reason for Referral * Imaging (Routine) - Closed Specialty Diagnoses / Procedures Referred By Contac t Referred To Contact RADIOLOGY Diagnoses Dementia ([facility]) Procedures CT HEAD WO CON Db Rubin MD [address] [place] [address] Phone: tel: fax: Referral ID Status Reason Start Date Expiration Date Visits Re quested Visits Authorized [id number] Closed 04/18/2019 05/19/2020 1 1 ENGINE MECHANIC * Imaging (Routine) - Closed Specialty Diagnoses / Procedures Referred By Contac t Referred To Contact RADIOLOGY Diagnoses Right chronic otitis media Procedures CT TEMP BONES WO CON CT ORBITS WO CON Ariel Thomason MD [address] [place] [address] Phone: tel: fax: Referral ID Status Reason Start Date Expiration Date Visits Re quested Visits Authorized [id number] Closed 04/19/2019 05/20/2020 1 1 ENGINE MECHANIC Reason for Visit * Imaging (Routine) - Closed Specialty Diagnoses / Procedures Referred By Eugenie t Referred To Contact RADIOLOGY Diagnoses Right chronic otitis media Procedures CT TEMP BONES WO CON CT ORBITS WO CON Ariel Thomason MD [address] [place] [address] Phone: tel: fax: Referral ID Status Reason Start Date Expiration Date Visits Re quested Visits Authorized [id number] Closed 04/19/2019 05/20/2020 1 1 Encounter Details Date Type Department Care Team (Latest Contact Info) Description 04/26/2019 12:55 PM GAS ENGINE MECHANIC - 04/26/2019 11:59 PM GAS ENGINE MECHANIC [place] [address] [place] [address] Ariel Thomason MD [address] [place] [address] Discharge Disposition: Home or Self Care (Routine [...] on file documented as of this encounter Medications at Time of Discharge aspirin EC 81 MG EC tabletIndication s:Anticoagulant Therapy Take 81 mg by mouth daily. Indications: Anticoagulant Therapy 01/03/2018 Cholecalciferol (VITAMIN D) 2000 units CapIndications:N utritional Support Take 2,000 Units by mouth daily. Indications: Nutritional Support 01/03/2018 sertraline 100 MG tabletIndication s:Depression Take 100 mg by mouth every morning. Indications: Depression 08/17/2019 amlodipine-benaz epril 5-20 MG capsule Take 1 capsule by mouth daily. 90 capsule 3 09/21/[address] 25 MG tablet Take 1 tablet (25 mg total) by mouth every morning. 90 tablet 3 09/21/2018 0 levothyroxine 50 MCG tabletIndication s:Hypothyroidism Indications: Underactive Thyroid Take 1 tablet (50mcg total) by mouth in the morning on Wednesday and Wednesday. 03/08/2019 0 PRAVASTATIN 40 MG tabletIndication s:Hyperlipidemia TAKE 1 TABLET BY MOUTH AT BEDTIME 90 tablet 02/20/2019 0 RANITIDINE 300 MG tabletIndication s:Gastroesophage al reflux disease without esophagitis TAKE 1 TABLET BY MOUTH EVERY NIGHT AT BEDTIME 90 tablet 02/20/2019 0 trazodone 50 MG tabletIndication s:Sleep Disturbance Take 50 mg by mouth nightly at bedtime. Indications: Disturbed Sleep 08/17/2019 0 documented as of this encounter Plan of Treatment Not on file documented as of this encounter Procedures Procedure Name Priority Date/Time Associated Diagnosis Comments CT TEMP BONES WO CON Routine 04/26/2019 1:40 PM GAS ENGINE MECHANIC Right chronic otitis media CT HEAD WO CON Routine 04/26/2019 1:40 PM GAS ENGINE MECHANIC Dementia ([facility]) documented in this encounter Results * CT TEMP BONES WO CON (04/26/2019 1:40 PM GAS ENGINE MECHANIC) Anatomical Region Laterality Modality Head Computed Tomogra phy 04/28/2019 12:5 3 PM GAS ENGINE MECHANIC Impressions 04/28/2019 1:03 PM GAS ENGINE MECHANIC IMPRESSION: ?? The left middle ears are aerated. Ossicles, cochlea and semicircular canals are unremarkable and the mastoid air cells are aerated. No bone erosion. There is soft tissue present adjacent to the right ossicles with bony erosion of the scutum. These findings are nonspecific and may represent a cholesteatoma. The cochlea and semicircular canals are unremarkable. The mastoid air cells are aerated. Interpreted By: Andrew Massey, 04/28/2019 12:53 PM Narrative 04/28/2019 1:03 PM GAS ENGINE MECHANIC IMAGING STUDIES: CT TEMP BONES WO CON ? DATE: 04/26/2019 1:15 PM INDICATION: History of right near pain, infections, surgery for a hole in the eardrum COMPARISON: No comparisons. CONTRAST: No intravenous contrast. Radiation dose reduction technique was utilized. Procedure Note Andrew Massey MD - 04/28/2019 IMAGING STUDIES: CT TEMP BONES WO CON DATE: 04/26/2019 1:15 PM INDICATION: History of right near pain, infections, surgery for a holein the eardrum COMPARISON: No comparisons. CONTRAST: No intravenous contrast. Radiation dose reduction technique was utilized. IMPRESSION: The left middle ears are aerated. Ossicles, cochlea and semicircularcanals are unremarkable and the mastoid air cells are aerated. No bone erosion. There is soft tissue present adjacent to the right ossicles with bony erosion of the scutum. These findings are nonspecific and may representa cholesteatoma. The cochlea and semicircular canals are unremarkable. The mastoid air cells are aerated. Interpreted By: Andrew Massey, 04/28/2019 12:53 PM us Ariel Thomason MD CT Final Result * CT HEAD WO CON (04/26/2019 1:40 PM GAS ENGINE MECHANIC) Anatomical Region Laterality Modality Head Computed Tomogra phy 04/26/2019 2:18 PM GAS ENGINE MECHANIC Impressions 04/26/2019 2:24 PM GAS ENGINE MECHANIC IMPRESSION: No apparent acute intracranial abnormality. Interpreted By: Vaughn Moreira, 04/26/2019 2:18 PM Narrative 04/26/2019 2:24 PM GAS ENGINE MECHANIC IMAGING STUDIES: ??CT HEAD WO CON ? DATE: ??04/26/2019 1:14 PM HISTORY: ??83-year-old female with depression and forgetfulness. Estimated 50-69% stenosis in the left ICA on 2019 carotid Doppler study. COMPARISON: ??CT temporal bones without contrast 04/26/2019. Carotid duplex Doppler 06/21/2018. DISCUSSION: Axial head CT without intravenous contrast. Automated exposure control with radiation dose reduction. Prominent ventricles and sulci consistent with moderate generalized atrophy. Left basal ganglia calcification. No acute intracranial bleed or extra-axial fluid collection. No mass effect or midline shift. Jackson matter/white matter differentiation within normal limits for age. MRI more sensitive for detection of acute edema and ischemia. Extensive atherosclerotic calcification within the cavernous carotid arteries and intracranial vertebral arteries. No acute fluid in the visualized paranasal sinuses. No apparent mastoid effusion. Also refer to dedicated CT temporal bone. No acute abnormality of the orbits and globes. Degenerative changes at the dens and anterior ring of C1. Procedure Note Vaughn Moreira MD - 04/26/2019 IMAGING STUDIES: CT HEAD WO CON DATE: 04/26/2019 1:14 PM HISTORY: 83-year-old female with depression and forgetfulness.Estimated 50-69% stenosis in the left ICA on 2019 carotid Doppler study. COMPARISON: CT temporal bones without contrast 04/26/2019. Carotidduplex Doppler 06/21/2018. DISCUSSION: Axial head CT without intravenous contrast. Automated exposure controlwith radiation dose reduction. Prominent ventricles and sulci consistent with moderate generalized atrophy. Left basal ganglia calcification. No acute intracranial bleed or extra-axial fluid collection. No masseffect or midline shift. Jackson matter/white matter differentiation within normal limits for age. MRI more sensitive for detection of acute edema and ischemia. Extensive atherosclerotic calcification within the cavernous carotid arteries and intracranial vertebral arteries. No acute fluid in the visualized paranasal sinuses. No apparent mastoid effusion. Also refer to dedicated CT temporal bone. No acute abnormality of the orbits and globes. Degenerative changes at the dens and anterior ring of C1. IMPRESSION: No apparent acute intracranial abnormality. Interpreted By: Vaughn Moreira, 04/26/2019 2:18 PM Db Rubin MD CT Final Result documented in this encounter Visit Diagnoses Diagnosis Right chronic otitis media Unspecified otitis media Dementia ([facility]) Dementia, unspecified, without behavioral disturbance documented in this encounter Care Teams Facilities Project Manager Relationship Specialty Start Date End Date Noemi Barnard MD [facility]. [address] [address] PCP - General INTERNAL MEDICINE 08/23/18 03/03/23 Joni Mckeon MD [facility]. [address] [address] Christopher Manager Card CARDIOVASCULAR DISEASE 07/04/18 documented as of this encounter
--- OUTSIDE RECORDS SUMMARY | 2024-04-05 00:22 | XMS_ITS | Encounter Summary ---
Author Organization [facility] Address [address] [place] [address]. [place] [address] [place] [address] Care Team Providers Care Home Sales Consultant Name Role Phone Joni Mckeon MD Unavailable [phone] Noemi Jade MD Primary Care Provider [phone] Reason for Visit * Reason Comments Coronary Artery Disease Hypertension Encounter Details Date Type Department Care Team (Late st Contact Info) Description 03/08/2019 10:30 AM VETERINARY LABORATORY DIAGNOSTICIAN Office Visit [facility] [id number] [place] [id number] Joni Mckeon MD [address] [address] Coronary Artery Disease; Hypertension Social History Tobacco [...] on file documented as of this encounter Last Filed Vital Signs Vital Sign Reading Time Taken Comments Blood Pressure 150/70 03/08/2019 10:12 AM VETERINARY LABORATORY DIAGNOSTICIAN Pulse 65 03/08/2019 10:12 AM VETERINARY LABORATORY DIAGNOSTICIAN Temperature - - Respiratory Rate - - Oxygen Saturation - - Inhaled Oxygen Concentration - - Weight 63 kg (139 lb) 03/08/2019 10:12 AM VETERINARY LABORATORY DIAGNOSTICIAN Height 157.5 cm (5' 2 ) 03/08/2019 10:12 AM VETERINARY LABORATORY DIAGNOSTICIAN Body Mass Index 25.42 03/08/2019 10:12 AM VETERINARY LABORATORY DIAGNOSTICIAN documented in this encounter Patient Instructions * Patient Instructions* Devika Zeng - 03/08/2019 10:30 AM VETERINARY LABORATORY DIAGNOSTICIAN Images from the original note were not included. Patient Education Patient Education Coronary Heart Disease The Basics Written by the doctors and editors at [facility] What is coronary artery disease???--??Coronary artery [...] process is complete. This topic retrieved from [employer] on: Nov 16, 2018. Topic 18542 Version 21.0 Release: 27.3.2 - C27.227 ?2019??[employer]. and/or its affiliates.??All rights reserved. figure 1: Coronary heart disease In people with coronary heart disease, the coronary arteries get clogged with fatty deposits calledplaques. Graphic 17494 Version 5.0 figure 2: Heart attack symptoms [...] to get yourself to the hospital. Graphic 24246 Version 1.0 figure 3: Coronary artery bypass [...] can come from other places, too. Graphic 48804 Version 5.0 Consumer Information Use and Disclaimer [...] that is right for you.The use of [employer] content is governed by the [employer] Terms of Use. ??2019 [employer]. All rights reserved. Copyright ?2019??[employer]. and/or its affiliates.??All rights reserved. RINARY LABORATORY DIAGNOSTICIAN documented in this encounter Progress Notes * Joni Mckeon MD - 03/08/2019 2:48 PM CST REASON FOR FOLLOWUP: Coronary artery disease. HISTORY OF PRESENT ILLNESS: This is a complex 83-year-old woman who has a history of nonobstructivecoronary artery disease, hypertension who presents for followup today Clinically, the patient has been doing relatively well. Denies any chest pain, no shortness of breath, no PND, no orthopnea. She is compliant with her medications. She is being followed in pulmonary. The patient's heart catheterization showed approximately 40% LAD stenosis. Prior echocardiogram demonstrated normal left ventricular size and function with mild tricuspid regurgitation. Patient has no other significant complaints. She is otherwise doing well. IMPRESSION AND RECOMMENDATION: 1. Coronary artery disease. Patient has nonobstructive coronary disease. She does note some increased stress recently. She has a son who has been ill. I advised her to seek some counseling. 2. Hyperlipidemia, lipids are well controlled. Otherwise, the patient's blood pressures are well controlled. Ms. Ch is doing well. She is going to see us back in September or sooner as needed. RINARY LABORATORY DIAGNOSTICIAN * Joni Mckeon MD - 03/08/2019 10:30 AM CST Reason for Visit: Coronary Artery Disease and Hypertension Medications: Current Outpatient Medications: ??? amlodipine-benazepril 5-20 MG capsule, Take 1 capsule by mouth daily., Disp: 90 capsule, Rfl: 3 ??? aspirin EC 81 MG EC tablet, Take 1 tablet by mouth daily., Disp: , Rfl: ??? Cholecalciferol (VITAMIN D) 2000 units Cap, Take 1 capsule by mouth daily., Disp: , Rfl: ??? hydrochlorothiazide 25 MG tablet, Take 1 tablet (25 mg total) by mouth every morning., Disp: 90tablet, Rfl: 3 ??? levothyroxine 50 MCG tablet, Take 1 tablet (50mcg total) by mouth in the morning on Wednesday and Wednesday., Disp: , Rfl: ??? PRAVASTATIN 40 MG tablet, TAKE 1 TABLET BY MOUTH AT BEDTIME, Disp: 90 tablet, Rfl: 0 ??? RANITIDINE 300 MG tablet, TAKE 1 TABLET BY MOUTH EVERY NIGHT AT BEDTIME, Disp: [...] depression and new or significant memory loss. All other systems reviewed and are negative. Filed Vitals: 03/08/19 1012 BP: 150/70 Pulse: 65 Weight: 63 kg (139 lb) Height: 5' 2 (1.575 m) Body mass index is 25.42 kg/m??. Physical Exam Rate/Rhythm: regular rhythm and [...] kyphosis normal ROM Cardiovascular Comments: Diagnoses/Impression: 1. Coronary artery disease due to calcified coronary lesion LIPID PANEL BASIC METABOLIC PANEL 2. Hypothyroidism, unspecified type levothyroxine 50 MCG tablet LIPID PANEL BASIC METABOLIC PANEL 3. Dyslipidemia LIPID PANEL BASIC METABOLIC PANEL 4. Essential hypertension Referring Provider: No ref. provider found PCP: NOEMI JADE MD RINARY LABORATORY DIAGNOSTICIAN documented in this encounter Plan of Treatment Not on file documented as of this encounter Results * (ABNORMAL) BASIC METABOLIC PANEL (03/13/2019 11:37 AM VETERINARY LABORATORY DIAGNOSTICIAN) GLUCOSE 124(H) 70 - 99 MG/DL 03/13/2019 12:10 PM [facility] BUN 21(H) 7 - 18 MG/DL 03/13/2019 12:10 PM [facility] CREATININE S/P/B 1.09(H) 0.55 - 1.02 MG/DL 03/13/2019 12:10 PM [facility] SODIUM S/P/B 141 136 - 145 MMOL/L 03/13/2019 12:10 PM [facility] POTASSIUM S/P/B 4.0 3.5 - 5.1 MMOL/L 03/13/2019 12:10 PM [facility] CHLORIDE S/P/B 103 100 - 108 MMOL/L 03/13/2019 12:10 PM [facility] CO2 27.1 21 - 32 MMOL/L 03/13/2019 12:10 PM [facility] CALCIUM S/P/B 9.7 8.5 - 10.1 MG/DL 03/13/2019 12:10 PM [facility] ANION GAP 10.9 5 - 15 MMOL/L 03/13/2019 12:10 PM [facility] BUN CREATININE RATIO 19.3 6 - 26 03/13/2019 12:10 PM [facility] EGFR NON-AFR. AMER. 47(L) >90 ML/MIN/1.7 3 M2 03/13/2019 12:10 PM [facility] EGFR AFR. AMER. 54(L) >90 ML/MIN/1.7 3 M2 03/13/2019 12:10 PM [facility] Comment: NOTE: eGFR is not calculated for patients <18 years of age. This is an estimated GFR (CKD EPI) and should not be used for calculating drug doses. 03/13/2019 11:3 7 AM VETERINARY LABORATORY DIAGNOSTICIAN us Joni Mckeon MD LABORATORY Final Result [facility] [address] [place] [address], * LIPID PANEL (03/13/2019 11:37 AM VETERINARY LABORATORY DIAGNOSTICIAN) CHOLESTEROL 149 <200.0 MG/DL 03/13/2019 12:10 PM [facility] TRIGLYCERIDES 104 <150 MG/DL 03/13/2019 12:10 PM [facility] HDL 66 >40.0 MG/DL 03/13/2019 12:10 PM [facility] LDL (CALCULATED) 62 <100 MG/DL 03/13/20 19 12:10 PM [facility] NON HDL CHOLESTEROL 83 <130 MG/DL 03/13 12:10 PM [facility] CHOL/HDL RATIO 2.3 0.0 - 4.5 03/13/2019 12:10 PM [facility] VLDL CALCULATION 21 5 - 55 MG/DL 03/13/2019 12:10 PM VETERINARY LABORATORY DIAGNOSTICIAN [facility] LIPID INTERPRETATION 03/13/2019 12:10 PM VETERINARY LABORATORY DIAGNOSTICIAN [facility] Comment: NIH CON[facility]ENS[facility] REPORT [...] ?HDL ?<40 ?--- ?LDL ? >=160 ?>=130 03/13/2019 11:3 7 AM VETERINARY LABORATORY DIAGNOSTICIAN us Joni Mckeon MD LABORATORY Final Result [facility] [address] [place] [id number], documented in this encounter Visit Diagnoses Diagnosis Coronary artery disease due to calcified coronary lesion- Primary Hypothyroidism, unspecified type Dyslipidemia Other and unspecified hyperlipidemia Essential hypertension Unspecified essential hypertension documented in this encounter Care Teams Home Sales Consultant Relationship Specialty Start Date End Date Noemi Jade MD [facility]. [address] [address] PCP - General INTERNAL MEDICINE 08/23/18 03/03/23 Joni Mckeon MD [facility]. [address] [address] [place] Hinge And Lock Attacher CARDIOVASCULAR DISEASE 07/04/18 documented as of this encounter
--- OUTSIDE RECORDS SUMMARY | 2024-04-05 00:22 | XMS_ITS | Encounter Summary ---
Author Organization [facility] Address [facility] [place] [address] [place] [address] Care Team Providers Care Finish Inspector Name Role Phone Joni Mckeon MD Unavailable [phone] Noemi Barnard MD Primary Care Provider Encounter Details Date Type Department Care Team (Latest Contact Info) Description 01/17/2019 1:25 PM CDT - 01/17/2019 11:59 PM CDT Hospital Encounter [facility] [address] [place], [place] [id number] [place] [address] [place] [address] Discharge Disposition: Home or Self Care (Routine [...] 02/04 PHQ-2 Answer Date Recorded PHQ-2 Score 1 07/05/2018 Comments No Sex and Gender Information Value [...] by mouth daily. Indications: Nutritional Support 01/03/2018 amlodipine-benaz epril 5-20 MG capsule Take 1 capsule by mouth daily. 90 capsule 3 09/21/2018 [address] 25 MG tablet Take 1 tablet (25 mg total) by mouth every morning. 90 tablet 3 09/21/2018 0 levothyroxine 50 MCG tabletIndication s:Hypothyroidism , unspecified type Take 1 tablet (50 mcg total) by mouth every morning. 90 tablet 2 10/17/2018 9 PRAVASTATIN 40 MG tabletIndication s:Hyperlipidemia TAKE 1 TABLET BY MOUTH AT BEDTIME 90 tablet 11/21/2018 9 RANITIDINE 300 MG tabletIndication s:Gastroesophage al reflux disease without esophagitis TAKE 1 TABLET BY MOUTH EVERY NIGHT AT BEDTIME 90 tablet 11/21/2018 9 sulfamethoxazole -trimethoprim 800-160 MG tabletIndication s:UTI symptoms Take 1 tablet by mouth 2 (two) times daily for 5 days. 10 tablet 01/17/2019 9 documented as of this encounter Progress Notes * Melanie Chavez RN - 01/17/2019 11:59 PM CDT Attempted to contact pt- lmtcb * Melanie Chavez RN - 01/17/2019 11:59 PM CDT Pt returned the call and states that she is still having burning with urination. Message sent to Dr. Franklin * Melanie Chavez RN - 01/17/2019 11:59 PM CDT Cipro sent to pharmacy per Dr. Franklin * Melanie Chavez RN - 01/17/2019 11:59 PM CDT Pt aware and v/u. documented in this encounter Plan of Treatment Not on file documented as of this encounter Procedures Procedure Name Priority Date/Time Associated Diagnosis Comments URINE BACTERIA CULTURE Routine 01/17/2019 10:42 AM CDT UTI symptoms documented in this encounter Results * CULTURE URINE (01/17/2019 10:42 AM CDT) SPEC DESCRIPTION URINE CLEAN CATCH 01/17/2019 1:26 PM CDT [facility] SPECIAL REQUESTS NO SPECIAL REQUEST 01/17/2019 1:26 PM CDT [facility] CULTURE RESULT NO GROWTH 2 DAYS 01/19/2019 6:53 AM CDT [facility] URINE SPECIMEN OBTAINED BY CLEAN CATCH PROCEDURE / Unknown 01/17/2019 10:42 AM CDT 01/17/2019 1:35 PM CDT us Noemi Barnard MD MICROBIOLOGY - GENERAL ORDER DANNA Final Result Performing Organization Address City/State/[facility] Co de Phone Number [facility] [address] [place] [address], [place] [phone] [facility] [address] [place] [address], [place] [phone] documented in this encounter Visit Diagnoses Diagnosis UTI symptoms documented in this encounter Care Teams Finish Inspector Relationship Specialty Start Date End Date Noemi Barnard MD [facility]. [address] [place] [address] PCP - General INTERNAL MEDICINE 08/23/18 03/03/23 Joni Mckeon MD [facility]. [address] [address] [place] Casey Saw Operator CARDIOVASCULAR DISEASE 07/04/18 documented as of this encounter
--- OUTSIDE RECORDS SUMMARY | 2024-04-05 00:22 | XMS_ITS | Encounter Summary ---
Author Organization [facility] Address [address] [place] [address]. [place], [place] [address] [place] [address] Care Team Providers Care [place] Welter Name Role Phone Joni Mckeon MD Unavailable [phone] Noemi Barnard MD Primary Care Provider [phone] Encounter Details Date Type Department Care Team (Late st Contact Info) Description 04/25/2019 Orders Only [facility] [address] [place], [place] [id number] [place] [address] [place], [place] [id number] Social History Tobacco Use Types Packs/Day Years [...] on filedocumented in this encounter Care Teams [place] Welter Relationship Specialty Start Date End Date Noemi Barnard MD [address] [address] PCP - General INTERNAL MEDICINE 08/23/18 03/03/23 Joni Mckeon MD [address] [address] [place] Eng[employer]ver Block CARDIOVASCULAR DISEASE 07/04/18 documented as of this encounter
--- OUTSIDE RECORDS SUMMARY | 2024-04-05 00:22 | XMS_ITS | Encounter Summary ---
Author Organization [facility] Address [address] [place] [address]. [place], [place] [address] [place] [address] Care Team Providers Care Painter Spray Name Role Phone Joni Mckeon MD Unavailable [phone] Noemi Barnard MD Primary Care Provider [phone] Encounter Details Date Type Department Care Team (Late st Contact Info) Description 04/18/2019 Orders Only [facility] [address] [place] [address] Db Rubin MD [address] [place] [address] Social History Tobacco Use Types Packs/Day Years [...] documented as of this encounter Results * TSH ANTIBODY (04/18/2019 11:03 AM MIXING MACHINE OPERATOR) [facility] TSH ANTIBODY NEGATIVE NEGATIVE 04/27/2019 9:21 PM MIXING MACHINE OPERATOR [facility] ALVIN GOMEZ Comment: This test was developed and its analytical performance characteristics have been determined by [facility]. It has not been cleared or approved by FDA. This assay has been validated pursuant to the CLIA regulations and is used for clinical purposes. Test performed by [facility] ? [address], ? [place] [address] ? Scraper Operator: Rosanna Joe MD,PHD,YOU Test Reported by [facility], [facility], [address] [place] [address] Antonino Hanks M.D., Ph.D., Director of Laboratories , [place] [id number] 04/18/2019 11:0 3 AM MIXING MACHINE OPERATOR Db Rubin MD LABORATORY Final Result Performing Organization Address [facility] Co de Phone Number [facility] [address] [address], * VITAMIN B12 / FOLATE (04/18/2019 11:03 AM MIXING MACHINE OPERATOR) [facility] VITAMIN B12 S/P/B 325 193 - 986 PG/ML 04/18/2019 11:53 AM MIXING MACHINE OPERATOR [facility] FOLATE 14.0 8.6 - 58.9 NG/ML 04/18/2019 11:53 AM MIXING MACHINE OPERATOR [facility] 04/18/2019 11:0 3 AM MIXING MACHINE OPERATOR Db Rubin MD LABORATORY Final Result [facility] [address] [place] [address], documented in this encounter Visit Diagnoses Diagnosis Encounter for long-term (current) use of other medications- Primary documented in this encounter Care Teams Painter Spray Relationship Specialty Start Date End Date Noemi Barnard MD Three [facility]. [address] [address] PCP - General INTERNAL MEDICINE 08/23/18 03/03/23 Joni Mckeon MD Three [facility]. [address] [address] [place] Headlight Assembler CARDIOVASCULAR DISEASE 07/04/18 documented as of this encounter
--- OUTSIDE RECORDS SUMMARY | 2024-04-05 00:22 | XMS_ITS | Encounter Summary ---
Author Organization [facility] Address [facility]. [place], [place] [address] [place] [address] Care Team Providers Care Corporate Trainer Name Role Phone Joni Mckeon MD Unavailable [phone] Noemi Barnard MD Primary Care Provider [phone] Encounter Details Date Type Department Care Team (Latest Contact Info) Description 04/18/2019 10:38 AM GRADUATE FELLOW - 04/18/2019 11:59 PM [facility] Encounter [facility] [address] [place] [address] Db Rubin MD [address] [place] [address] Discharge Disposition: Home or Self Care (Routine [...] Procedure Name Priority Date/Time Associated Diagnosis Comments VITAMIN B12 / FOLATE Routine 04/18/2019 11:03 AM GRADUATE FELLOW Encounter for long-term (current) use of other medications TSH ANTIBODY Routine 04/18/2019 11:03 AM GRADUATE FELLOW Encounter for long-term (current) use of other medications documented in this encounter Results * TSH ANTIBODY (04/18/2019 11:03 AM GRADUATE FELLOW) TSH ANTIBODY NEGATIVE NEGATIVE 04/27/2019 9:21 PM GRADUATE FELLOW [facility] ALVIN GOMEZ Comment: This test was developed and its analytical performance characteristics have been determined by [facility]. It has not been cleared or approved by FDA. This assay has been validated pursuant to the CLIA regulations and is used for clinical purposes. Test performed by [facility] ? [address], ? [place] [address] ? Major Assembly Lineman: Rosanna Joe MD,PHD,YOU Test Reported by [facility], [facility], [address] [place] [address] Antonino Hanks M.D., Ph.D., Director of Laboratories , CLIA [id number] 04/18/2019 11:0 3 AM GRADUATE FELLOW Db Rubin MD LABORATORY Final Result Performing Organization Address [facility] Co de Phone Number [facility] [address] [address], [place] [phone] * VITAMIN B12 / FOLATE (04/18/2019 11:03 AM GRADUATE FELLOW) VITAMIN B12 S/P/B 325 193 - 986 PG/ML 04/18/2019 11:53 AM GRADUATE FELLOW [facility] FOLATE 14.0 8.6 - 58.9 NG/ML 04/18/2019 11:53 AM GRADUATE FELLOW [facility] 04/18/2019 11:0 3 AM GRADUATE FELLOW Db Rubin MD LABORATORY Final Result Performing Organization Address City/[facility]/ZIP Co de Phone Number [facility] [address] [place] [address], [place] [phone] documented in this encounter Visit Diagnoses Diagnosis Encounter for long-term (current) use of other medications documented in this encounter Care Teams Corporate Trainer Relationship Specialty Start Date End Date Noemi Barnard MD [facility]. [address] [address] PCP - General INTERNAL MEDICINE 08/23/18 03/03/23 Joni Mckeon MD [facility]. [address] [address] [place] CARDIOVASCULAR DISEASE 07/04/18 documented as of this encounter
--- OUTSIDE RECORDS SUMMARY | 2024-04-05 00:22 | XMS_ITS | Encounter Summary ---
Author Organization [facility] Address [address] [place] [address]. [place], [place] [address] [place] [address] Care Team Providers Care Motor Winder Name Role Phone Joni Mckeon MD Unavailable [phone] Noemi Jade MD Primary Care Provider [phone] Reason for Visit * Reason Comments UTI c/o UTI symptoms Medication Reconciliation Reconcile Medi cations Follow Up Also here for 3 chuck h follow up Encounter Details Date Type Department Care Team (Latest Contact Info) Description 01/17/2019 10:40 AM CDT Office Visit [facility] Medical Group Family & Internal Medicine [facility] [address] [place] [address] [place] [id number] [place] [address] UTI (c/o UTI symptoms); Medication Reconciliation (Reconcile Medications); Follow Up (Also here for 3 month follow up) Social History Tobacco Use Types Packs/Day [...] Sign Reading Time Taken Comments Blood Pressure 136/78 01/17/2019 10:23 AM CDT Pulse 78 01/17/2019 10:23 AM CDT Temperature 36.7 ??C (98.1 ??F) 01/17/2019 10:23 AM C DT Respiratory Rate 18 01/17/2019 10:23 AM CDT Oxygen Saturation 97% 01/17/2019 10:23 AM CDT Inhaled Oxygen Concentration - - Weight 61.7 kg (136 lb) 01/17/2019 10:23 AM CDT Height 157.5 cm (5' 2 ) 01/17/2019 10:23 AM CDT Body Mass Index 24.87 01/17/2019 10:23 AM CDT documented in this encounter Progress Notes * Melanie Chavez RN - 01/17/2019 10:40 AM CDT Attempted to contact pt- lmtcb * Noemi Jade MD - 01/17/2019 10:40 AM CDT Reason for Visit: UTI (c/o UTI symptoms); Medication Reconciliation (Reconcile Medications); and Follow Up (Also herefor 3 month follow up) HPI UTI, Acute: The patient is being seen for an initial evaluation of this episode of a urinary tract infection. Symptoms: Urinary urgency. The patient presents with complaints of sudden onset of intermittent episodes of moderate dysuria. Symptoms are improved by increased fluid intake. Symptoms are worsening. The patient presents with complaints of sudden onset of intermittent episodes of moderate urinary frequency. Symptoms are worsening. Symptom Cluster Details: She reports the symptoms are worsening. Current Treatment: She is currently not being treated for this problem. ROS Constitutional: Feeling poorly. Cardiovascular: Normal. Respiratory: Normal. Gastrointestinal: Normal. Genitourinary: The patient presents with complaints of sudden onset of intermittent episodes of moderate dysuria. Psychiatric: Normal. Current Outpatient Medications: ??? amlodipine-benazepril 5-20 MG [...] levothyroxine 50 MCG tablet, Take 1 tablet (50 mcg total) by mouth every morning., Disp: 90 tablet, Rfl: 2 ??? PRAVASTATIN 40 MG tablet, TAKE 1 TABLET BY MOUTH AT BEDTIME, Disp: 90 tablet, Rfl: 0 ??? RANITIDINE 300 MG tablet, TAKE 1 TABLET BY MOUTH EVERY NIGHT AT BEDTIME, Disp: 90 tablet, Rfl: 0 ??? sulfamethoxazole-trimethoprim 800-160 MG tablet, Take 1 tablet by mouth 2 (two) times daily for5 days., Disp: 10 tablet, Rfl: 0 No Known Allergies Past Medical History: Diagnosis Date ??? Cancer [...] file Gets together: Not on file Attends denominational service: Not on file Active member of [...] Narrative ??? Not on file Family History Problem Relation Name Age of Onset ??? Diabetes Other ??? Breast Cancer Other ??? Other (cardiac disorder) Other ??? Heart Attack Mother Family Status Relation Name Status ??? Other (Not Specified) ??? Mother ??? Father Filed Vitals: 01/17/19 1023 BP: 136/78 Pulse: 78 Resp: 18 Temp: 98.1 ??F (36.7 ??C) TempSrc: Oral SpO2: 97% Weight: 61.7 kg (136 lb) Height: 5' 2 (1.575 m) Body mass index is 24.87 kg/m??. Physical Exam Constitutional General appearance: No acute distress, well appearing and well nourished. Pulmonary Respiratory effort: No increased work of breathing or signs of respiratory distress. Auscultation of lungs: Clear to auscultation. Cardiovascular Palpation of heart: Normal PMI, no thrills. Abdomen Abdomen: Non-tender, no masses. Liver and spleen: No hepatomegaly or splenomegaly. Musculoskeletal Gait and station: Normal. Psychiatric Mood and affect: Normal. Results for orders placed or performed in visit on 01/17/19 URINALYSIS AUTO DIP Result Value Ref Range COLOR YELLOW TRANSPARENCY CLEAR U GLUCOSE NEGATIVE NEGATIVE MG/DL Urine Bilirubin NEGATIVE NEGATIVE U KETONES NEGATIVE NEGATIVE MG/DL Specific [place] (U) 1.015 1.001 - 1.035 BLOOD TRACE (Hemolyzed) (A) NEGATIVE U PH 5.5 5.0 - 9.0 PROTEIN, URINE NEGATIVE NEGATIVE mg/dL UROBILINOGEN 0.2 0.2 - 1.0 EU/dL = mg/dL NITRITES NEGATIVE NEGATIVE MG/DL LEUKOCYTE ESTERASE TRACE (A) NEGATIVE HEMOGLOBIN, GLYCOSYLATED Result Value Ref Range HGB A1C 6.5% Assessment/PLAN 1. UTI symptoms - URINALYSIS AUTO DIP - CULTURE URINE; Future - sulfamethoxazole-trimethoprim 800-160 MG tablet; Take 1 tablet by mouth 2 (two) times daily for 5days. Dispense: 10 tablet; Refill: 0 2. Diabetes mellitus ([facility]) - HEMOGLOBIN, GLYCOSYLATED Plan/Discussion Summary Follow up PRN. Impression: Urinary tract infection. The differential diagnosis includes complicated urinary tract infection and irritant urethritis. The diagnostic plan includes urinalysis, urine culture and sensitivity if not better. Medication changes are as documented in orders. Follow up FU PRN NOEMI JADE MD 01/18/2019 5:47 PM documented in this encounter Plan of Treatment Not on file documented as of this encounter Procedures Procedure Name Priority Date/Time Associated Diagnosis Comments URINALYSIS AUTO DIP Routine 01/17/2019 1 0:40 AM CDT UTI symptoms HEMOGLOBIN, GLYCOSYLATED Routine 01/17/2019 Type 2 diabetes mellitus with stage 3 chronic kidney disease, without long-term current use of insulin ([facility]) documented in this encounter Results * CULTURE URINE (01/17/2019 10:42 AM CDT) SPEC DESCRIPTION URINE CLEAN CATCH 01/17/2019 1:[address] [facility] SPECIAL REQUESTS NO SPECIAL REQUEST 01/17/2019 1:[address] [facility] CULTURE RESULT NO GROWTH 2 DAYS 01/19/2019 6:53 AM CDT [facility] URINE SPECIMEN OBTAINED BY CLEAN CATCH PROCEDURE / Unknown 01/17/2019 10:42 AM CDT 01/17/2019 1:35 PM CDT us Noemi Jade MD MICROBIOLOGY - GENERAL ORDER DANNA Final Result [facility] [address] [place] [address], [place] [phone] [facility] [address] [place] [address], [place] [phone] * (ABNORMAL) URINALYSIS AUTO DIP (01/17/2019 10:40 AM CDT) COLOR (U) YELLOW [facility] ([address]), [place] TRANSPARENCY CLEAR [address] ([address]), [place] GLUCOSE (U) NEGATIVE NEGATIVE MG/DL [address] ([address]), [place] BILIRUBIN (U) NEGATIVE NEGATIVE [address] ([address]), [place] KETONES MG/DL (U) NEGATIVE NEGATIVE MG/DL [address] ([address]), [place] SPECIFIC GRAVITY (U) 1.015 1.001 - 1.[address] ([address]), [place] BLOOD (U) TRACE (Hemolyzed)( A) NEGATIVE [address] ([address]), [place] U PH 5.5 5.0 - 9.[address] ([address]), [place] PROTEIN (U) NEGATIVE NEGATIVE mg/dL [address] ([address]), [place] UROBILINOGEN 0.2 0.2 - 1.0 EU/dL = mg/dL [facility] ([address]), [place] NITRITES NEGATIVE NEGATIVE MG/DL [address] ([address]), [place] LEUKOCYTES (U) TRACE(A) NEGATIVE [address] ([address]), [place] URINE SPECIMEN OBTAINED BY CLEAN CATCH PROCEDURE / Unknown 01/17/2019 10:40 AM CDT Noemi Jade MD URINE ORDERABLES Final Resul t [address] ([address]), [place] [address] [place] [address], [place] [phone] * HEMOGLOBIN, GLYCOSYLATED (01/17/2019) HGB A1C 6.5% [address] ([address]), [place] 01/17/2019 Noemi Jade MD LABORATORY Final Result Performing Organization Address [facility]/ZIP Co de Phone Number [address] ([address]), [place] [address] [place] [address], [place] [phone] documented in this encounter Visit Diagnoses Diagnosis UTI symptoms- Primary Type 2 diabetes mellitus with stage 3 chronic kidney disease, without long-term current use of insulin ([facility]) documented in this encounter Care Teams Motor Winder Relationship Specialty Start Date End Date Noemi Jade MD [facility]. [address] [address] PCP - General INTERNAL MEDICINE 08/23/18 03/03/23 Joni Mckeon MD [facility]. [address] [address] [place] Tool Rental Technician CARDIOVASCULAR DISEASE 07/04/18 documented as of this encounter
--- OUTSIDE RECORDS SUMMARY | 2024-04-05 00:22 | XMS_ITS | Encounter Summary ---
Author Organization [facility] Address [address] [place] [address]. [place], [place] [address] [place] [address] Care Team Providers Care Medical Research Associate Name Role Phone Joni Mckeon MD Unavailable [phone] Noemi Barnard MD Primary Care Provider [phone] Encounter Details Date Type Department Care Team (Late st Contact Info) Description 03/13/2019 10:20 AM GRAVURE PRESS OPERATOR Laboratory Only [facility] Medical Group Family & Internal Medicine [address] [address] Social History Tobacco Use Types [...] Diagnosis Comments COLLECTION VENOUS BLOOD VENIPUNCTURE Routine 03/13/2019 10:12 AM GRAVURE PRESS OPERATOR Hypothyroidism CAD (coronary artery disease) documented in this encounter Visit Diagnoses Diagnosis Hypothyroidism- Primary Unspecified hypothyroidism CAD (coronary artery disease) Coronary atherosclerosis of unspecified type of vessel, circle or graft documented in this encounter Care Teams Medical Research Associate Relationship Specialty Start Date End Date Noemi Barnard MD [facility]. [address] [address] PCP - General INTERNAL MEDICINE 08/23/18 03/03/23 Joni Mckeon MD [facility]. [address] [address] [facility] CARDIOVASCULAR DISEASE 07/04/18 documented as of this encounter
--- OUTSIDE RECORDS SUMMARY | 2024-04-05 00:22 | XMS_ITS | Encounter Summary ---
Author Organization [facility] Address [address] [place] [address]. [place] [address] [place] [address] Care Team Providers Care Tank Terminal Gauger Name Role Phone Joni Mckeon MD Unavailable [phone] Noemi Barnard MD Primary Care Provider [phone] Reason for Visit * Reason Onset Date Comments FYI 05/16/2019 Encounter Details Date Type Department Care Team (Late st Contact Info) Description 05/16/2019 Telephone [facility] Medical Group Family & Internal Medicine [facility] [address] [place] [address] Noemi Barnard MD [address] [place] [address] FYI Social History Tobacco Use Types Packs/Day Years [...] on file documented as of this encounter Progress Notes * Carolynn Ballard RN - 05/16/2019 4:02 PM CSTAddended by: CAROLYNN BALLARD on: 05/16/2019 04:02 PM Modules accepted: Orders BUILDER SUPERVISOR * Carolynn Ballard RN - 05/16/2019 4:[address] Franklin, order for Free T4 placed and pt to f/u after resulted BUILDER SUPERVISOR * Carolynn Ballard RN - 05/16/2019 12:42 PM CST Pt currently taking Levothyroxine 50mcg daily BUILDER SUPERVISOR * Marcella Reese - 05/16/2019 12:03 PM CST Kassie with [facility] called stating that Dr. Ruibn had a TSH drawn on the pt. States results came back in, TSH was elevated at 7.23 Results in Epic. BUILDER SUPERVISOR documented in this encounter Plan of Treatment Not on file documented as of this encounter Results * THYROXINE, FREE (FT4) (05/19/2019 9:11 AM SIGN BUILDER SUPERVISOR) FREE T4 1.08 0.76 - 1.46 NG/DL 05/19/2019 9:42 AM SIGN BUILDER SUPERVISOR [facility] 05/19/2019 9:11 AM SIGN BUILDER SUPERVISOR Noemi Barnard MD LABORATORY Final Result [facility] [address] [place] [address], [place] [phone] documented in this encounter Visit Diagnoses Diagnosis Hypothyroidism, unspecified type- Primary documented in this encounter Care Teams Tank Terminal Gauger Relationship Specialty Start Date End Date Noemi Barnard MD [address] [address] PCP - General INTERNAL MEDICINE 08/23/18 03/03/23 Joni Mckeon MD [address] [address] [place] Type Rolling Machine Operator CARDIOVASCULAR DISEASE 07/04/18 documented as of this encounter
--- OUTSIDE RECORDS SUMMARY | 2024-04-05 00:22 | XMS_ITS | Encounter Summary ---
Author Organization [facility] Address [address] [place] [address]. [place] [address] [place] [address] Care Team Providers Care Composite Science Teacher Name Role Phone Joni Mckeon MD Unavailable [phone] Noemi Barnard MD Primary Care Provider [phone] Reason for Visit * Reason Onset Date Comments Information 04/06/2019 Encounter Details Date Type Department Care Team (Late st Contact Info) Description 04/06/2019 Telephone [facility] at [facility], [address] [address] Joni Mckeon MD [facility]. [address] [address] Information Social History Tobacco Use Types Packs/Day Years [...] as of this encounter Progress Notes * Treasure L Yunior - 04/06/2019 1:37 PM CST Called patient and patient's daughter. No answer on either call. Left a message asking if they had heard from [facility]. My name and phone number were left with both asking them to call me back to let us know if they've heard anything. Patient called back and stated she has decided NOT to do the [facility]. NCED MANUFACTURING ENGINEER NCED MANUFACTURING ENGINEER documented in this encounter Plan of Treatment Not on file documented as of this encounter Visit Diagnoses Not on filedocumented in this encounter Care Teams Composite Science Teacher Relationship Specialty Start Date End Date Noemi Barnard MD [facility]. [address] [address] PCP - General INTERNAL MEDICINE 08/23/18 03/03/23 Joni Mckeon MD Three [facility]. [facility] [address] [place] [address] [place] Porcelain Finisher CARDIOVASCULAR DISEASE 07/04/18 documented as of this encounter
--- OUTSIDE RECORDS SUMMARY | 2024-04-05 00:22 | XMS_ITS | Encounter Summary ---
Author Organization [facility] Address [address] [place] [address]. [place] [address] [place] [address] Care Team Providers Care Parlor Chaperone Name Role Phone Joni Mckeon MD Unavailable [phone] Noemi Barnard MD Primary Care Provider [phone] Reason for Visit * Reason Onset Date Comments Lab Results 05/24/2019 Encounter Details Date Type Department Care Team (Late st Contact Info) Description 05/24/2019 Telephone [facility] Medical Group Family & Internal Medicine [facility] [address] [place] [address] Noemi Barnard MD [address] [place] [address] Lab Results Social History Tobacco Use Types Packs/Day [...] as of this encounter Progress Notes * Nolvia Bolaños LPN - 05/26/2019 1:39 PM CST Pt called read message and to repeat in 3 mos V/U BING SETTER * Carolynn Ballard RN - 05/26/2019 1:30 PM CSTAddended by: CAROLYNN BALLARD on: 05/26/2019 01:30 PM Modules accepted: Orders BING SETTER * Carolynn Ballard RN - 05/26/2019 1:30 PM CST Order placed. Attempted to contact pt to make her aware- lmtcb BING SETTER * Noemi Barnard MD - 05/26/2019 12:55 PM CST Let her know it would be good to repeat her TSH in 3 months BING SETTER * Carolynn Ballard RN - 05/25/2019 2:13 PM CST Free T4 normal. Pt aware and v/u BING SETTER * Ana Cristina Calvert - 05/25/2019 1:10 PM CST Patient calling again for test results, advised her Dr. Franklin will be reviewing shortly and we willgive her a call. BING SETTER * Nolvia Bolaños LPN - 05/24/2019 4:43 PM CST Pt called again for results BING SETTER * Ana Laura Rueda - 05/24/2019 2:03 PM CST Pt CB# is [phone] Pt called wanting results of her labs Please Advise BING SETTER documented in this encounter Plan of Treatment Not on file documented as of this encounter Visit Diagnoses Diagnosis Hypothyroidism, unspecified type- Primary documented in this encounter Care Teams Parlor Chaperone Relationship Specialty Start Date End Date Noemi Barnard MD [facility]. [address] [address] PCP - General INTERNAL MEDICINE 08/23/18 03/03/23 Joni Mckeon MD [facility]. [address] [address] [place] Engraver Pantograph CARDIOVASCULAR DISEASE 07/04/18 documented as of this encounter
--- OUTSIDE RECORDS SUMMARY | 2024-04-05 00:22 | XMS_ITS | Encounter Summary ---
Author Organization [facility] Address [address] [place] [address]. [place] [address] [place] [address] Care Team Providers Care Gyro Mechanic Name Role Phone Joni Mckeon MD Unavailable [phone] Noemi Barnard MD Primary Care Provider [phone] Encounter Details Date Type Department Care Team (Latest Contact Info) Description 05/19/2019 8:44 AM METALLURGICAL OR MATERIALS TECHNICIAN - 05/19/2019 9:29 AM METALLURGICAL OR MATERIALS TECHNICIAN Hospital Encounter [facility] [address] [place] [address] [place] [address] [place] [address] Discharge Disposition: Home or Self [...] Procedure Name Priority Date/Time Associated Diagnosis Comments THYROXINE, FREE (FT4) Routine 05/19/2019 9:11 AM METALLURGICAL OR MATERIALS TECHNICIAN Hypothyroidism, unspecified type documented in this encounter Results * THYROXINE, FREE (FT4) (05/19/2019 9:11 AM METALLURGICAL OR MATERIALS TECHNICIAN) FREE T4 1.08 0.76 - 1.46 NG/DL 05/19/2019 9:42 AM METALLURGICAL OR MATERIALS TECHNICIAN [facility] 05/19/2019 9:11 AM METALLURGICAL OR MATERIALS TECHNICIAN Noemi Barnard MD LABORATORY Final Result [facility] [address] [place] [address], [place] [phone] documented in this encounter Visit Diagnoses Diagnosis Hypothyroidism, unspecified type documented in this encounter Care Teams Gyro Mechanic Relationship Specialty Start Date End Date Noemi Barnard MD [facility]. [address] [address] PCP - General INTERNAL MEDICINE 08/23/18 03/03/23 Joni Mckeon MD [facility]. [address] [address] Christopher Sales Representative Raw Fibers CARDIOVASCULAR DISEASE 07/04/18 documented as of this encounter
--- OUTSIDE RECORDS SUMMARY | 2024-04-05 00:22 | XMS_ITS | Encounter Summary ---
Author Organization [facility] Address [address] [place] [address]. [place], [place] [address] [place] [address] Care Team Providers Care Workers' Compensation Claims Examiner Name Role Phone Joni Mckeon MD Unavailable [phone] Noemi Barnard MD Primary Care Provider [phone] Encounter Details Date Type Department Care Team (Late st Contact Info) Description 05/12/2019 Orders Only [facility] [address] [place] [address] Db Rubin MD [address] [place] [address] Social History Tobacco Use Types [...] Results * (ABNORMAL) THYROID STIM HORMONE, TSH (05/12/2019 8:47 AM NET DEVELOPMENT MANAGER) TSH 7.321(H) 0.358 - 3.74 uIU/ML 05/12/2019 9:39 AM NET DEVELOPMENT MANAGER [facility] Comment: HIGH DOSES OF BIOTIN MAY INTERFERE WITH THIS TEST RESULT. CORRELATION TO CLINICAL HISTORY AND PRESENTATION RECOMMENDED. 05/12/2019 8:47 AM NET DEVELOPMENT MANAGER us Db Rubin MD LABORATORY Final Result [facility] [address] [place] [address], documented in this encounter Visit Diagnoses Diagnosis Encounter for long-term (current) use of other medications- Primary documented in this encounter Care Teams Workers' Compensation Claims Examiner Relationship Specialty Start Date End Date Noemi Barnard MD [facility]. [address] [address] PCP - General INTERNAL MEDICINE 08/23/18 03/03/23 Joni Mckeon MD [facility]. [address] [address] [place] Cloth Examiner Machine CARDIOVASCULAR DISEASE 07/04/18 documented as of this encounter
--- OUTSIDE RECORDS SUMMARY | 2024-04-05 00:22 | XMS_ITS | Encounter Summary ---
Author Organization [facility] Address [address] [place] [address]. [place] [address] [place] [address] Care Team Providers Care Vanstone Machine Operator Name Role Phone Joni Mckeon MD Unavailable [phone] Noemi Barnard MD Primary Care Provider [phone] Reason for Visit * Reason Onset Date Comments Problem 01/24/2019 Encounter Details Date Type Department Care Team (Late st Contact Info) Description 01/24/2019 Telephone [facility] Family & Internal Medicine [facility] [address] [place] [address] Noemi [place]ard [place] [id number] [place] [address] Problem Social History Tobacco Use Types Packs/Day Years [...] Progress Notes * Carolynn Ballard RN - 01/24/2019 11:[address] Franklin- Pt to come in for another urine culture. Script for Levaquin and Pyridium sent. IF this does not help, pt will need to go to a urologist. Pt aware and v/u. * Carolynn Ballard RN - 01/24/2019 11:00 AM CDTAddended by: CAROLYNN BALLARD on: 01/24/2019 11:00 AM Modules accepted: Orders * Carolynn Ballard RN - 01/24/2019 10:09 AM CDT Will discuss with Dr. Franklin * Yen Duran - 01/24/2019 10:02 AM CDT Patient called in and said that she still has her UTI symptoms of burning after she urinates. She is finished with RX and has been using a cream to help but it hasn't helped. Please advise and call her back at [phone]. documented in this encounter Plan of Treatment Not on file documented as of this encounter Results * CULTURE URINE (01/24/2019 1:21 PM CDT) SPEC DESCRIPTION URINE CLEAN CATCH 01/24/2019 3:24 PM CDT [facility] SPECIAL REQUESTS NO SPECIAL REQUEST 01/24/2019 3:24 PM CDT [facility] CULTURE RESULT NO GROWTH 2 DAYS 01/26/2019 8:08 AM CDT [facility] URINE SPECIMEN OBTAINED BY CLEAN CATCH PROCEDURE / Unknown 01/24/2019 1:21 PM CDT 01/24/2019 3:28 PM CDT Noemi Barnard MD MICROBIOLOGY - GENERAL ORDER DANNA Final Result [facility] [address] [place] [address], [place] [phone] [facility] [address] [place] [address], documented in this encounter Visit Diagnoses Diagnosis UTI symptoms- Primary documented in this encounter Care Teams Vanstone Machine Operator Relationship Specialty Start Date End Date Noemi Barnard MD [facility]. [facility] [address] [place] [address] PCP - General INTERNAL MEDICINE 08/23/18 03/03/23 Joni Mckeon MD Three [facility]. [facility] [address] [place] [address] Keeler Cabinetmaker Maintenance CARDIOVASCULAR DISEASE 07/04/18 documented as of this encounter
--- OUTSIDE RECORDS SUMMARY | 2024-04-05 00:22 | XMS_ITS | Encounter Summary ---
Author Organization [facility] Address [address] [place] [address]. [place] [address] [place] [address] Care Team Providers Care Glue Mounter Operator Name Role Phone Joni Mckeon MD Unavailable [phone] Noemi Barnard MD Primary Care Provider [phone] Encounter Details Date Type Department Care Team (Latest Contact Info) Description 05/19/2019 Travel Social History Tobacco Use Types Packs/Day [...] filedocumented in this encounter Care Teams Glue Mounter Operator Relationship Specialty Start Date End Date Noemi Barnard MD [facility]. [facility] [address] [place] [address] PCP - General INTERNAL MEDICINE 08/23/18 03/03/23 [facility]i [facility]ke[facility] MD [facility] [address] [address] Christopher Supervisor Paper Coating CARDIOVASCULAR DISEASE 07/04/18 documented as of this encounter
--- OUTSIDE RECORDS SUMMARY | 2024-04-05 00:22 | XMS_ITS | Encounter Summary ---
Author Organization [facility] Address [address] [place] [address]. [place] [address] [place] [address] Care Team Providers Care Clinical Pharmacy Specialist Name Role Phone Joni Mckeon MD Unavailable [phone] Noemi Barnard MD Primary Care Provider [phone] Reason for Visit * Reason Onset Date Comments Orders 01/20/2019 dysuria Encounter Details Date Type Department Care Team (Late st Contact Info) Description 01/20/2019 Telephone [facility] Family & Internal Medicine [facility] [address] [place] [address] Noemi Barnard [place] [id number] [place] [address] Orders (dysuria) Social History Tobacco Use Types Packs/Day Years [...] as of this encounter Visit Diagnoses Diagnosis UTI symptoms- Primary documented in this encounter Care Teams Clinical Pharmacy Specialist Relationship Specialty Start Date End Date Noemi Barnard MD [address] [address] PCP - General INTERNAL MEDICINE 08/23/18 03/03/23 Joni Mckeon MD [address] [address] [place] Access Developer CARDIOVASCULAR DISEASE 07/04/18 documented as of this encounter
--- OUTSIDE RECORDS SUMMARY | 2024-04-05 00:22 | XMS_ITS | Encounter Summary ---
Author Organization [facility] Address [address] [place] [address]. [place] [address] [place] [address] Care Team Providers Care Airport Refueling Handler Name Role Phone Joni Mckeon MD Unavailable [phone] Noemi Barnard MD Primary Care Provider [phone] Encounter Details Date Type Department Care Team (Latest Contact Info) Description 05/23/2019 Travel Social History Tobacco Use Types Packs/Day [...] on filedocumented in this encounter Care Teams Airport Refueling Handler Relationship Specialty Start Date End Date Noemi Barnard MD [facility]. [facility] [address] [place] [address] PCP - General INTERNAL MEDICINE 08/23/18 03/03/23 [facility] [address] [address] [facility] Intern CARDIOVASCULAR DISEASE 07/04/18 documented as of this encounter
--- OUTSIDE RECORDS SUMMARY | 2024-04-05 00:22 | XMS_ITS | Encounter Summary ---
Author Organization [facility] Address [address] [place] [address]. [place] [address] [place] [address] Care Team Providers Care Stna Name Role Phone Joni Mckeon MD Unavailable [phone] Noemi Barnard MD Primary Care Provider [phone] Encounter Details Date Type Department Care Team (Latest Contact Info) Description 05/09/2019 Scan HEALTH INFO SRVCS Scanned, Documents Social [...] on filedocumented in this encounter Care Teams Stna Relationship Specialty Start Date End Date Noemi Barnard MD Three [facility]. [facility] [address] [place] [address] PCP - General INTERNAL MEDICINE 08/23/18 03/03/23 Joni Mckeon MD Three [facility]. [address] [address] [place] Methods Analyst CARDIOVASCULAR DISEASE 07/04/18 documented as of this encounter
--- OUTSIDE RECORDS SUMMARY | 2024-04-05 00:22 | XMS_ITS | Encounter Summary ---
Author Organization [facility] Address [facility]. [place], [place] [address] [place] [address] Care Team Providers Care Neon Sign Maker Name Role Phone Joni Mckeon MD Unavailable [phone] Noemi Barnard MD Primary Care Provider [phone] Encounter Details Date Type Department Care Team (Latest Contact Info) Description 05/12/2019 8:20 AM BOTTOM STOP ATTACHER - 05/12/2019 9:29 AM BOTTOM STOP ATTACHER Hospital Encounter [facility] [address] [place] [address] Db Rubin MD [address] [place] [address] Discharge Disposition: Home or Self [...] Procedure Name Priority Date/Time Associated Diagnosis Comments THYROID STIM HORMONE TSH STAT 05/12/2019 8:47 AM BOTTOM STOP ATTACHER Encounter for long-term (current) use of other medications documented in this encounter Results * (ABNORMAL) THYROID STIM HORMONE, TSH (05/12/2019 8:47 AM BOTTOM STOP ATTACHER) TSH 7.321(H) 0.358 - 3.74 uIU/ML 05/12/2019 9:39 AM BOTTOM STOP ATTACHER [facility] Comment: HIGH DOSES OF BIOTIN MAY INTERFERE WITH THIS TEST RESULT. CORRELATION TO CLINICAL HISTORY AND PRESENTATION RECOMMENDED. 05/12/2019 8:47 AM BOTTOM STOP ATTACHER us Db Rubin MD LABORATORY Final Result [facility] [address] [place] [address], documented in this encounter Visit Diagnoses Diagnosis Encounter for long-term (current) use of other medications documented in this encounter Care Teams Neon Sign Maker Relationship Specialty Start Date End Date Noemi Barnard MD [address] [address] PCP - General INTERNAL MEDICINE 08/23/18 03/03/23 Joni Mckeon MD Three [facility]. [address] [address] [place] Central Office Associate CARDIOVASCULAR DISEASE 07/04/18 documented as of this encounter
--- OUTSIDE RECORDS SUMMARY | 2024-04-05 00:22 | XMS_ITS | Encounter Summary ---
Author Organization [facility] Address [address] [place] [address]. [place] [address] [place] [address] Care Team Providers Care Station Examiner Name Role Phone Joni Mckeon MD Unavailable [phone] Noemi Barnard MD Primary Care Provider [phone] Reason for Visit * Reason Onset Date Comments Lab Results 03/21/2019 Encounter Details Date Type Department Care Team (Late st Contact Info) Description 03/21/2019 Telephone [facility], [address] [address] [place] [address] Lab Results Social History Tobacco Use Types [...] as of this encounter Progress Notes * Jeaneth Jenkins RN - 03/21/2019 12:22 PM CST Informed patient of the above per Gita.patient verbalized understanding. ER OPERATOR * INDRA Franco - 03/21/2019 12:06 PM CST Labs look great, no change in meds ER OPERATOR * Jeaneth Jenkins RN - 03/21/2019 11:01 AM CST Received a VM from patient requesting her lab results (which are posted) for a week ago. ER OPERATOR documented in this encounter Plan of Treatment Not on file documented as of this encounter Visit Diagnoses Not on filedocumented in this encounter Care Teams Station Examiner Relationship Specialty Start Date End Date Noemi Barnard MD [address] [address] PCP - General INTERNAL MEDICINE 08/23/18 03/03/23 Joni Mckeon MD [facility]. [address] [address] Christopher Hse Coordinator CARDIOVASCULAR DISEASE 07/04/18 documented as of this encounter
--- OUTSIDE RECORDS SUMMARY | 2024-04-05 00:22 | XMS_ITS | Encounter Summary ---
Author Organization [facility] Address [facility] [place] [address] [place] [address] Care Team Providers Care Hangar Attendant Name Role Phone Joni Mckeon MD Unavailable [phone] Noemi Barnard MD Primary Care Provider [phone] Encounter Details Date Type Department Care Team (Latest Contact Info) Description 01/24/2019 3:24 PM CDT - 01/24/2019 11:59 PM CDT Hospital Encounter [facility] [address] [place], [place] [address] [place] [address] [place] [address] Discharge Disposition: Home or Self [...] every morning. 90 tablet 3 09/21/2018 0 levofloxacin (LEVAQUIN) 250 MG tabletIndication s:UTI symptoms Take 1 tablet (250 mg total) by mouth daily for 3 days. 3 tablet 01/24/2019 9 levothyroxine 50 MCG tabletIndication s:Hypothyroidism , unspecified type Take 1 tablet (50 mcg total) by mouth every morning. 90 tablet 2 10/17/2018 9 phenazopyridine (PYRIDIUM) 100 MG tabletIndication s:UTI symptoms Take 1 tablet (100 mg total) by mouth 3 (three) times daily as needed for Pain. 9 tablet 01/24/2019 9 PRAVASTATIN 40 MG tabletIndication s:Hyperlipidemia TAKE 1 TABLET BY MOUTH AT BEDTIME 90 tablet 11/21/2018 9 RANITIDINE 300 MG tabletIndication s:Gastroesophage al reflux disease without esophagitis TAKE 1 TABLET BY MOUTH EVERY NIGHT AT BEDTIME 90 tablet 11/21/2018 9 documented as of this encounter Progress Notes * Melanie Chavez RN - 01/24/2019 11:59 PM CDT Attempted to contact pt- unable to leave vm NCE INSURANCE MANAGER * Melanie Chavez RN - 01/24/2019 11:59 PM CDT Pt aware and v/u. Pt stated he SXs are better NCE INSURANCE MANAGER documented in this encounter Plan of Treatment Not on file documented as of this encounter Procedures Procedure Name Priority Date/Time Associated Diagnosis Comments URINE BACTERIA CULTURE Routine 01/24/2019 1:21 PM CDT UTI symptoms documented in this encounter Results * CULTURE URINE (01/24/2019 1:21 PM CDT) SPEC DESCRIPTION URINE CLEAN CATCH 01/24/2019 3:24 PM CDT [facility] SPECIAL REQUESTS NO SPECIAL REQUEST 01/24/2019 3:24 PM CDT [facility] CULTURE RESULT NO GROWTH 2 DAYS 01/26/2019 8:[address] [facility] URINE SPECIMEN OBTAINED BY CLEAN CATCH PROCEDURE / Unknown 01/24/2019 1:21 PM CDT 01/24/2019 3:28 PM CDT Noemi Barnard MD MICROBIOLOGY - GENERAL ORDER DANNA Final Result Performing Organization Address City/State/[facility] Co de Phone Number [facility] [address] [place] [address], [place] [phone] [facility] [address] [place] [address], [place] [phone] documented in this encounter Visit Diagnoses Diagnosis UTI symptoms documented in this encounter Care Teams Hangar Attendant Relationship Specialty Start Date End Date Noemi Barnard MD [facility]. [address] [address] PCP - General INTERNAL MEDICINE 08/23/18 03/03/23 Joni Mckeon MD [facility]. [address] [place] [address] [place] Kinesiology Internship CARDIOVASCULAR DISEASE 07/04/18 documented as of this encounter
--- OUTSIDE RECORDS SUMMARY | 2024-04-05 00:22 | XMS_ITS | Encounter Summary ---
Author Organization [facility] Address [address] [place] [address]. [place] [address] [place] [address] Care Team Providers Care Tan Room Supervisor Name Role Phone Joni Mckeon MD Unavailable [phone] Noemi Barnard MD Primary Care Provider [phone] Encounter Details Date Type Department Care Team (Late st Contact Info) Description 03/13/2019 11:36 AM BIOLOGICAL TECHNICAL OFFICER - 03/13/2019 11:59 PM [facility] Hospital Encounter [facility] [address] [place] [address] Joni Mckeon MD [address] [id number] Discharge Disposition: Home or Self Care (Routine [...] NIGHT AT BEDTIME 90 tablet 02/20/2019 0 documented as of this encounter Plan of Treatment Not on file documented as of this encounter Procedures Procedure Name Priority Date/Time Associated Diagnosis Comments BASIC METABOLIC PANEL Routine 03/13/2019 11:37 AM BIOLOGICAL TECHNICAL OFFICER Hypothyroidism, unspecified type CAD (coronary artery disease) Dyslipidemia LIPID PANEL Routine 03/13/2019 11:37 AM BIOLOGICAL TECHNICAL OFFICER Hypothyroidism, unspecified type CAD (coronary artery disease) Dyslipidemia documented in this encounter Results * LIPID PANEL (03/13/2019 11:37 AM BIOLOGICAL TECHNICAL OFFICER) CHOLESTEROL 149 <200.0 MG/DL 03/13/2019 12:10 PM [facility] TRIGLYCERIDES 104 <150 MG/DL 03/13/2019 12:10 PM [facility] HDL 66 >40.0 MG/DL 03/13/2019 12:10 PM [facility] LDL (CALCULATED) 62 <100 MG/DL 03/13/20 19 12:10 PM [facility] NON HDL CHOLESTEROL 83 <130 MG/DL 03/13 12:10 PM [facility] CHOL/HDL RATIO 2.3 0.0 - 4.5 03/13/2019 12:10 PM [facility] VLDL CALCULATION 21 5 - 55 MG/DL 03/13/2019 12:10 PM [facility] LIPID INTERPRETATION 03/13/2019 12:10 PM [facility] Comment: NIH CONCENSUS REPORT RECOMMENDATIONS: [...] ? >=160 ?>=130 03/13/2019 11:3 7 AM BIOLOGICAL TECHNICAL OFFICER Joni Mckeon MD LABORATORY Final Result [facility] [address] [place] [address], * (ABNORMAL) BASIC METABOLIC PANEL (03/13/2019 11:37 AM BIOLOGICAL TECHNICAL OFFICER) GLUCOSE 124(H) 70 - 99 MG/DL 03/13/2019 12:10 PM [facility] BUN 21(H) 7 - 18 MG/DL 03/13/2019 12:10 PM [facility] CREATININE S/P/B 1.09(H) 0.55 - 1.02 MG/DL 03/13/2019 12:10 PM [facility] SODIUM S/P/B 141 136 - 145 MMOL/L 03/13/2019 12:10 PM [facility] POTASSIUM S/P/B 4.0 3.5 - 5.1 MMOL/L 03/13/2019 12:10 PM [facility] CHLORIDE S/P/B 103 100 - 108 MMOL/L 03/13/2019 12:10 PM [facility] CO2 27.1 21 - 32 MMOL/L 03/13/2019 12:10 PM [facility] CALCIUM S/P/B 9.7 8.5 - 10.1 MG/DL 03/13/2019 12:10 PM [facility] ANION GAP 10.9 5 - 15 MMOL/L 03/13/2019 12:10 PM BIOLOGICAL TECHNICAL OFFICER [facility] BUN CREATININE RATIO 19.3 6 - 26 03/13/2019 12:10 PM [facility] EGFR NON-AFR. AMER. 47(L) >90 ML/MIN/1.7 3 M2 03/13/2019 12:10 PM [facility] EGFR AFR. AMER. 54(L) >90 ML/MIN/1.7 3 M2 03/13/2019 12:10 PM [facility] Comment: NOTE: eGFR is not calculated for patients <18 years of age. This is an estimated GFR (CKD EPI) and should not be used for calculating drug doses. 03/13/2019 11:3 7 AM BIOLOGICAL TECHNICAL OFFICER Joni Mckeon MD LABORATORY Final Result [facility] [address] [place] [address], [place] [phone] documented in this encounter Visit Diagnoses Diagnosis Hypothyroidism, unspecified type CAD (coronary artery disease) Coronary atherosclerosis of unspecified type of vessel, eyak or graft Dyslipidemia Other and unspecified hyperlipidemia documented in this encounter Care Teams Tan Room Supervisor Relationship Specialty Start Date End Date Noemi Barnard MD [address] [address] PCP - General INTERNAL MEDICINE 08/23/18 03/03/23 Joni Mckeon MD [address] [address] [place] Epic Ambulatory Analyst CARDIOVASCULAR DISEASE 07/04/18 documented as of this encounter
--- OUTSIDE RECORDS SUMMARY | 2024-04-05 00:22 | XMS_ITS | Encounter Summary ---
Author Organization [facility] Address [address] [place] [address]. [place] [address] [place] [address] Care Team Providers Care Astrobiologist Name Role Phone Joni Mckeon MD Unavailable [phone] Noemi Barnard MD Primary Care Provider [phone] Reason for Visit * Reason Onset Date Comments Earache 01/18/2019 Encounter Details Date Type Department Care Team (Late st Contact Info) Description 01/18/[address] [facility] Family & Internal Medicine [facility] [address] [place] [address] Noemi Barnard MD [address] [place] [address] Earache Social History Tobacco Use Types Packs/Day Years [...] Progress Notes * Melanie Chavez RN - 01/18/2019 10:[address] Franklin- pt to stop medication and we will wait and see what the culture says. Pt aware and v/u. PT instructed to increase water intake to help. * Melanie Chavez RN - 01/18/2019 9:06 AM CDT Pt was prescribed Bactrim on 01/17/19. Will discuss with Dr. Franklin. * Ana Laura Rueda - 01/18/2019 8:52 AM CDT Pt was given new med for UTI and this am she has rash all over her body Please call [phone] documented in this encounter Plan of Treatment Not on file documented as of this encounter Visit Diagnoses Not on filedocumented in this encounter Care Teams Astrobiologist Relationship Specialty Start Date End Date Noemi Barnard MD [facility]. [address] [place] [address] PCP - General INTERNAL MEDICINE 08/23/18 03/03/23 Joni Mckeon MD Three [facility]. [address] [place] [address] Christopher Drapery And Upholstery Estimator CARDIOVASCULAR DISEASE 07/04/18 documented as of this encounter
--- OUTSIDE RECORDS SUMMARY | 2024-04-05 00:22 | XMS_ITS | Encounter Summary ---
Author Organization [facility] Address [address] [place] [address]. [place], [place] [id number] [place] [address] Care Team Providers Care Skills Trainer Name Role Phone Joni Mckeon MD Unavailable [phone] Noemi Barnard MD Primary Care Provider [phone] Encounter Details Date Type Department Care Team (Late st Contact Info) Description 01/24/2019 12:40 PM CDT Laboratory Only [facility] Medical [facility] Family & Internal Medicine [address] [address] Social History Tobacco Use Types [...] Associated Diagnosis Comments URINALYSIS AUTO DIP Routine 01/24/2019 1 2:59 PM CDT Dysuria documented in this encounter Results * (ABNORMAL) URINALYSIS AUTO DIP (01/24/2019 12:59 PM CDT) COLOR (U) YELLOW [address] ([address]), [facility] [address] ([address]), [place] GLUCOSE (U) NEGATIVE NEGATIVE MG/DL [address] ([address]), [place] BILIRUBIN (U) NEGATIVE NEGATIVE [address] ([address]), [place] KETONES MG/DL (U) NEGATIVE NEGATIVE MG/DL [address] ([address]), [place] SPECIFIC GRAVITY (U) 1.010 1.001 - 1.[address] ([address]), [place] BLOOD (U) TRACE (Non Hemolyzed, Intact)(A) NEGATIVE [address] ([address]), [place] U PH 5.5 5.0 - 9.[address] ([address]), [place] PROTEIN (U) NEGATIVE NEGATIVE mg/dL [address] ([address]), [place] UROBILINOGEN 0.2 0.2 - 1.0 EU/dL = mg/dL [address] ([address]), [place] NITRITES NEGATIVE NEGATIVE MG/DL [address] ([address]3383), [place] LEUKOCYTES (U) TRACE(A) NEGATIVE [address] ([address]), [place] URINE SPECIMEN OBTAINED BY CLEAN CATCH PROCEDURE / Unknown 01/24/2019 12:59 PM CDT Noemi Barnard MD URINE ORDERABLES Final Resul t [address] ([address]), [facility] [address] [place] [address], documented in this encounter Visit Diagnoses Diagnosis Dysuria- Primary documented in this encounter Care Teams Skills Trainer Relationship Specialty Start Date End Date Noemi Barnard MD [address] [address] [place] [address] PCP - General INTERNAL MEDICINE 08/23/18 03/03/23 Joni Mckeon MD [facility]. [address] [address] [place] Cfo Controller CARDIOVASCULAR DISEASE 07/04/18 documented as of this encounter
--- OUTSIDE RECORDS SUMMARY | 2024-04-05 00:22 | XMS_ITS | Encounter Summary ---
Author Organization [facility] Address [address] [place] [address]. [place] [address] [place] [address] Care Team Providers Care Bowling Alley Attendant Name Role Phone Joni Mckeon MD Unavailable [phone] Noemi Barnard MD Primary Care Provider [phone] Encounter Details Date Type Department Care Team (Latest Contact Info) Description 05/22/2019 Travel Social History Tobacco Use Types Packs/Day [...] on filedocumented in this encounter Care Teams Bowling Alley Attendant Relationship Specialty Start Date End Date Noemi Barnard MD [facility]. [facility] [address] [place] [address] PCP - General INTERNAL MEDICINE 08/23/18 03/03/23 [facility] [address] [address] Christopher Elderly Sitter CARDIOVASCULAR DISEASE 07/04/18 documented as of this encounter
--- OUTSIDE RECORDS SUMMARY | 2024-04-05 00:23 | XMS_ITS | Encounter Summary ---
Author Organization [facility] Address [address] [place] [address]. [place] [address] [place] [address] Care Team Providers Care Retail Department Reset Name Role Phone Joni Mckeon MD Unavailable [phone] Noemi Jade MD Primary Care Provider Reason for Visit * Reason Comments Shortness Of Breath s/p cardiac cath Abnormal Stress Test Encounter Details Date Type Department Care Team (Late st Contact Info) Description 09/21/2018 12:00 PM CDT Office Visit [facility] AT [address] [id number] Joni Mckeon MD [address] [address] Shortness Of Breath (s/p cardiac cath); Abnormal Stress Test Social History Tobacco Use Types Packs/Day Years [...] Reading Time Taken Comments Blood Pressure 160/70 09/21/2018 12:06 PM CDT Pulse 56 09/21/2018 12:06 PM CDT Temperature - - Respiratory Rate - - Oxygen Saturation - - Inhaled Oxygen Concentration - - Weight 59.4 kg (131 lb) 09/21/2018 12:06 PM CDT Height 157.5 cm (5' 2 ) 09/21/2018 12:06 PM CDT Body Mass Index 23.96 09/21/2018 12:06 PM CDT documented in this encounter Patient Instructions * Patient Instructions* Devika Romanoenther - 09/21/2018 12:00 PM CDT Patient Education Patient Education High Blood Pressure in Adults The Basics Written by the doctors and editors at [facility] What is high blood pressure???--??High blood pressure is a condition that puts you at risk for heart attack, stroke, and kidney disease. It does not usually cause symptoms. But it can be serious. When your doctor or nurse tells you your blood pressure, he or she will say 2 numbers. For instance, your doctor or nurse might say that your blood pressure is 140 over 90. The top number is the pressure inside your arteries when your heart is kin. The bottom number is the pressure insideyour arteries when your heart is relaxed. The table shows how doctors and nurses define high and normal blood pressure (table 1). Elevated blood pressure is a term doctors or nurses use as a warning. People with elevated blood pressure do not yet have high blood pressure. But their blood pressure is not as low as it should be for good hea lt. How can I lower my blood pressure???--??If your doctor or nurse has prescribed blood pressure medicine, the most important thing you can do is to take it. If it causes side effects, do not just stop taking it. Instead, talk to your doctor or nurse about the problems it causes. He or she might be able to lower your dose or switch you to another medicine. If cost is a problem, mention that too. He or she might be able to put you on a less expensive medicine. Taking your blood pressure medicine can keep you from having a heart attack or stroke, and it can save your life! Can I do anything on my own???--??You have a lot of control over your blood pressure. To lower it: ?? Lose weight (if you are overweight) ?? Choose a diet low in fat and rich in fruits, vegetables, and low-fat dairy products ?? Reduce the amount of salt you eat ?? Do something active for at least 30 minutes a day on most days of the week ?? Cut down on alcohol (if you drink more than 2 alcoholic drinks per day) It's also a good idea to get a home blood pressure meter. People who check their own blood pressureat home do better at keeping it low and can sometimes even reduce the amount of medicine they take. All topics are updated as new evidence becomes available and our peer review process is complete. This topic retrieved from [employer] on: Apr 12, 2018. Topic 38630 Version 12.0 Release: 26.5.5 - C27.6 ?2019??[employer] and/or its affiliates.??All rights reserved. table 1: Definition of normal and high blood pressure Level Top number Bottom number High 130 or above 80 or above Elevated 120 to 129 79 or below Normal 119 or below 79 or below ?? These definitions are from the [place] [employer]/[place] [employer]. Other expert groups might use slightly different definitions. ?? Elevated blood pressure is a term doctor or nurses use as a warning. It means you do not yet have high blood pressure, but your blood pressure is not as low as it should be for good health. Graphic 18372 Version 6.0 Consumer Information Use and Disclaimer This information [...] that is right for you.The use of [employer] content is governed by the [employer] Terms of Use. ??2019 [employer]. All rights reserved. Copyright ?2019??[employer]. and/or its affiliates.??All rights reserved. documented in this encounter Progress Notes * Joni Mckeon MD - 09/21/2018 4:53 PM CDT REASON FOR FOLLOWUP: Shortness of breath. HISTORY OF PRESENT ILLNESS: Ms. Ch is a complex 83-year-old woman who was seen by me approximately 2 months ago. Patient has had problems with severe limiting dyspnea. She has had problems withpoorly controlled hypertension. Given the change in her symptoms, an echocardiogram was performed which showed normal left ventricular size and function. She had grade 1 diastolic dysfunction with nosignificant valvular abnormalities. Patient had a mildly abnormal stress test and subsequent left heart catheterization demonstrated nosignificant obstructive coronary disease. She had some minimal non-obstructive disease with normal LVEDP. The patient's blood pressure medicines were titrated. She was started on a diuretic. On followup today, Ms. Ch is improved. Her shortness of breath is improved, although not backto baseline. Patient denies any other new complaints. She has had some mild edema. She has no othersignificant complaints. She is going to complete her workup with Dr. Valdez. She does continue to be active. She has no other significant complaints. IMPRESSION AND RECOMMENDATION: 1. Coronary artery disease. The patient has nonobstructive coronary disease. For now, continue riskfactor modification. 2. Hypertension. I did review her blood pressures from home. Overall, they are reasonably well controlled, although she does have some elevated systolic blood pressures. I am going to recommend we increase her HCTZ to 25 mg and continue her current dose of Amlodipine and Benazepril. Patient denies any other significant complaints. Her lipids are reasonably well controlled at this point. We will get a lipid panel on our next visit. Otherwise, the patient is going to see me back in 6 months or sooner as needed. * Joni Mckeon MD - 09/21/2018 12:00 PM CDT Medications: Current Outpatient Medications: ??? amlodipine-benazepril 5-20 MG capsule, Take 1 capsule by mouth daily., Disp: 90 capsule, Rfl: 3 ??? hydrochlorothiazide 25 MG tablet, Take 1 tablet (25 mg total) by mouth every morning., Disp: 90tablet, Rfl: 3 ??? amoxicillin-clavulanate 875-125 MG tablet, Take 1 tablet by mouth 2 (two) times daily. For 10 days, Disp: , Rfl: 0 ??? aspirin EC 81 MG EC tablet, Take 1 tablet by mouth daily., Disp: , Rfl: ??? Cholecalciferol (VITAMIN D) 2000 units Cap, Take 1 capsule by mouth daily., Disp: , Rfl: ??? levothyroxine 50 MCG tablet, Take 1 tablet (50 mcg total) by mouth every morning., Disp: 90 tablet, Rfl: 2 ??? PRAVASTATIN 40 MG tablet, TAKE 1 TABLET BY MOUTH AT BEDTIME, Disp: 90 tablet, Rfl: 0 ??? RANITIDINE 300 MG tablet, TAKE 1 TABLET BY MOUTH EVERY NIGHT AT BEDTIME, Disp: 90 tablet, Rfl: 0 No Known Allergies Past [...] systems reviewed and are negative. Filed Vitals: 09/21/18 1206 BP: 160/70 Pulse: 56 Weight: 59.4 kg (131 lb) Height: 5' 2 (1.575 m) Body mass index is 23.96 kg/m??. Physical Exam Rate/Rhythm: regular rhythm and [...] Abdomen: abdomen soft and bowel sounds normal no tenderness and no mass. . Eyes: pupils equal, round, and reactive to light and conjunctivae normal. Neurological: alert, oriented x 3, appropriate for situation, intact cranial nerves and normal motor skillsnormal gait, . Skin: dry and warm no cyanosis and no clubbing. Musculoskeletal: no kyphosis normal ROM Cardiovascular Comments: Diagnoses/Impression: 1. Essential hypertension Referring Provider: No ref. provider found PCP: NOEMI JADE MD documented in this encounter Plan of Treatment Not on file documented as of this encounter Visit Diagnoses Diagnosis Essential hypertension Unspecified essential hypertension documented in this encounter Care Teams Retail Department Reset Relationship Specialty Start Date End Date Noemi Jade MD [address] [address] PCP - General INTERNAL MEDICINE 08/23/18 03/03/23 Joni Mckeon MD [facility]. [facility] [place], [place] [id number] Christopher Cafe Manager CARDIOVASCULAR DISEASE 07/04/18 documented as of this encounter
--- OUTSIDE RECORDS SUMMARY | 2024-04-05 00:23 | XMS_ITS | Encounter Summary ---
Author Organization [facility] Address [address] [place] [address]. [place] [address] [place] [address] Care Team Providers Care Tile Professional Name Role Phone Join Mckeon MD Unavailable [phone] Noemi Barnard MD Primary Care Provider [phone] Encounter Details Date Type Department Care Team (Late st Contact Info) Description 08/28/2018 Orders Only [facility] at [facility], [address] [phone] Joni Mckeon MD [facility]. [address] [id number] Social History Tobacco Use Types Packs/Day Years [...] Procedure Name Priority Date/Time Associated Diagnosis Comments UREA NITROGEN, BLOOD (BUN) QUANT 08/28/2018 8:48 AM CDT documented in this encounter Results * UREA NITROGEN, BLOOD (BUN) QUANT (08/28/2018 8:48 AM CDT) BUN 16 7 - 18 MG/DL [facility] 08/28/2018 8:48 AM CDT 08/28/2018 8:56 AM CDT Joni Mckeon MD LABORATORY Final Result [facility] [address] [place] [address], documented in this encounter Visit Diagnoses Not on filedocumented in this encounter Care Teams Tile Professional Relationship Specialty Start Date End Date Noemi Barnard MD [facility]. [address] [address] PCP - General INTERNAL MEDICINE 08/23/18 03/03/23 Joni Mckeon MD [facility]. [address] [address] [place] Videogame Designer CARDIOVASCULAR DISEASE 07/04/18 documented as of this encounter
--- OUTSIDE RECORDS SUMMARY | 2024-04-05 00:23 | XMS_ITS | Encounter Summary ---
Author Organization [facility] Address [address] [place] [address]. [place] [address] [place] [address] Care Team Providers Care Bush And Vine Fruit Crop Farmer Name Role Phone Joni Mckeon MD Unavailable [phone] Noemi Barnard MD Primary Care Provider [phone] Reason for Visit * Reason Onset Date Comments Appointment Request 09/01/2018 Encounter Details Date Type Department Care Team (Late st Contact Info) Description 09/01/2018 Telephone [facility] [address] [address] Zohaib Valdez MD [address] [place] [address] Appointment Request Social History Tobacco Use Types [...] as of this encounter Progress Notes * Shasha Pierce CRT - 09/01/2018 3:23 PM CDT Patient has been scheduled with Dr. Valdez. * Tammy Lynch - 09/01/2018 11:55 AM CDT Patient and I spoke on the phone and she was wanting to schedule the day that I had offered she said she thought her daughter was going to be out of town Spoke With shasha once I got ahold of her and she told me that November 02 was the day they wanted Tried to call patient back and no answer If she calls or the daughter please schedule November 02 She is too have a pft done before this appointment All per dr Valdez documented in this encounter Plan of Treatment Not on file documented as of this encounter Visit Diagnoses Not on filedocumented in this encounter Care Teams Bush And Vine Fruit Crop Farmer Relationship Specialty Start Date End Date Noemi Barnard MD [facility] [address] [address] PCP - General INTERNAL MEDICINE 08/23/18 03/03/23 Joni Mckeon MD [facility] [address] [address] [place] Application Security Specialist CARDIOVASCULAR DISEASE 07/04/18 documented as of this encounter
--- OUTSIDE RECORDS SUMMARY | 2024-04-05 00:23 | XMS_ITS | Encounter Summary ---
Author Organization [facility] Address [address] [place] [address]. [place], [place] [address] [place] [address] Care Team Providers Care Supervisor Dried Yeast Name Role Phone Joni Mckeon MD Unavailable [phone] Noemi Barnard MD Primary Care Provider [phone] Encounter Details Date Type Department Care Team (Late st Contact Info) Description 10/17/[address] [facility] Family & Internal Medicine - [place] [id number] [place] [phone] [place]ard [place] [id number] [place] [address] Social History Tobacco Use Types Packs/Day [...] as of this encounter Progress Notes * Lianna Boston RN - 10/17/2018 4:03 PM CDT Did not go through the first time. Pt is at the pharm. documented in this encounter Plan of Treatment Not on file documented as of this encounter Visit Diagnoses Diagnosis Otitis externa of right ear, unspecified chronicity, unspecified type documented in this encounter Care Teams Supervisor Dried Yeast Relationship Specialty Start Date End Date Noemi Barnard MD [address] [address] PCP - General INTERNAL MEDICINE 08/23/18 03/03/23 Joni Mckeon MD [address] [address] Christopher Metal Tile Lather CARDIOVASCULAR DISEASE 07/04/18 documented as of this encounter
--- OUTSIDE RECORDS SUMMARY | 2024-04-05 00:23 | XMS_ITS | Encounter Summary ---
Author Organization [facility] Address [address] [place] [address]. [place] [address] [place] [address] Care Team Providers Care Traffic Rate Computer Name Role Phone Joni Mckeon MD Unavailable [phone] Noemi Barnard MD Primary Care Provider [phone] Encounter Details Date Type Department Care Team (Latest Contact Info) Description 08/25/2018 Scan HEALTH INFO [facility] Scanned, Documents Social [...] on filedocumented in this encounter Care Teams Traffic Rate Computer Relationship Specialty Start Date End Date Noemi Barnard MD [facility]. [facility] [address] [place] [address] PCP - General INTERNAL MEDICINE 08/23/18 03/03/23 Joni Mckeon MD [facility]. [address] Instructional Facilitator CARDIOVASCULAR DISEASE 07/04/18 documented as of this encounter
--- OUTSIDE RECORDS SUMMARY | 2024-04-05 00:23 | XMS_ITS | Encounter Summary ---
Author Organization [facility] Address [address] [place] [address]. [place] [address] [place] [address] Care Team Providers Care Study Manager Name Role Phone Joni Mckeon MD Unavailable [phone] Noemi Barnard MD Primary Care Provider [phone] Reason for Visit * Reason Onset Date Comments Refill Request 10/17/2018 Encounter Details Date Type Department Care Team (Late st Contact Info) Description 10/17/2018 Telephone [facility] Family & Internal Medicine [facility] [address] [place] [address] Noemi Barnard MD [address] [place] [address] Refill Request Social History Tobacco Use Types [...] type documented in this encounter Care Teams Study Manager Relationship Specialty Start Date End Date Noemi Barnard MD [facility]. [address] [address] PCP - General INTERNAL MEDICINE 08/23/18 03/03/23 Joni Mckeon MD [address] [address] [place] Commercial Front Load Operator CARDIOVASCULAR DISEASE 07/04/18 documented as of this encounter
--- OUTSIDE RECORDS SUMMARY | 2024-04-05 00:23 | XMS_ITS | Encounter Summary ---
Author Organization [facility] Address [address] [place] [address]. [place] [address] [place] [address] Care Team Providers Care Minibus Driver Name Role Phone Joni Mckeon MD Unavailable [phone] Noemi Jade MD Primary Care Provider [phone] Reason for Visit * Reason Comments Medication Check reconcile medication s Refill Request discuss refills Follow Up routine follow up, 3 month Encounter Details Date Type Department Care Team (Late st Contact Info) Description 10/17/2018 2:00 PM CDT Office Visit [facility] Medical Group Family & Internal Medicine [facility] [id number] [place] [address] [place] [id number] [place] [address] Medication Check (reconcile medications); Refill Request (discuss refills); Follow Up (routine follow up, 3 month) Social History Tobacco Use Types Packs/Day Years [...] Sign Reading Time Taken Comments Blood Pressure 116/68 10/17/2018 1:39 PM CDT Pulse 68 10/17/2018 1:39 PM CDT Temperature 36.4 ??C (97.6 ??F) 10/17/2018 1:39 PM CD T Respiratory Rate 16 10/17/2018 1:39 PM CDT Oxygen Saturation 96% 10/17/2018 1:39 PM CDT Inhaled Oxygen Concentration - - Weight 60.6 kg (133 lb 9.6 oz) 10/17/2018 1:39 P M CDT Height 157.5 cm (5' 2 ) 10/17/2018 1:39 PM CDT Body Mass Index 24.44 10/17/2018 1:39 PM CDT documented in this encounter Progress Notes * Noemi Jade MD - 10/17/2018 2:00 PM CDT Reason for Visit: Medication Check (reconcile medications); Refill Request (discuss refills); and Follow Up (routine follow up, 3 month) HPI An 83-year-old female here today for a regular followup plus right ear pain. She had a previous infection, cannot hear out of the ear, was referred to the ENT; however, she missed that appointment sowe will have to reschedule. Her memory has been getting slightly worse so she is here with her daughter who is helping organize her medications. Otherwise, her blood pressure is good. She feels good. We stopped the metformin and her sugars have been doing good since then. Diabetes Type II (Follow-Up): The patient states she has been stable with her Type II Diabetes control since the last visit. Comorbid Illnesses: Hypertension, hyperlipidemia and obesity. She has no significant interval events. Symptoms: The patient is currently asymptomatic. Associated symptoms include no polyuria and no polydipsia. Home monitoring: The patient checks her blood sugar sporadically. Medications: The patient is adherent with her medication regimen. She denies medication side effects. Hypertension (Follow-Up): The patient presents for follow-up of primary hypertension. The patient states she has been stable with her blood pressure control since the last visit. She has no comorbid illnesses. She has no significant interval events. Symptoms: The patient is currently asymptomatic. Associated symptoms include no focal neurologic deficits and no memory loss. Home monitoring: The patient checks her blood pressure sporadically. Medications: The patient is adherent with her medication regimen. She denies medication side effects. Hyperlipidemia (Follow-Up): The patient states her hyperlipidemia has been stable since the last visit. Comorbid Illnesses: Hypertension. She has no significant interval events. Symptoms: The patient is currently asymptomatic. Associated symptoms include no focal neurologic deficits and no memory loss. Medications: The patient is adherent with her medication regimen. She denies medication side effects. ROS Constitutional: As noted in HPI and fatigue. Head and Face: Negative. Eyes: Negative. ENT: Right ear pain. Cardiovascular: Negative. Respiratory: Negative. Gastrointestinal: Negative. Musculoskeletal: Joint stiffness. Integumentary and Breasts: Negative. Neurological: Tingling. Psychiatric: Negative. Endocrine: Negative. Current Outpatient Medications: ??? amlodipine-benazepril 5-20 MG [...] BEDTIME, Disp: 90 tablet, Rfl: 0 ??? ciprofloxacin-dexamethasone (CIPRODEX) otic suspension, Place 4 drops into the right ear 2 (two) times daily for 10 days., Disp: 7.5 mL, Rfl: 0 No Known Allergies Past Medical [...] file Gets together: Not on file Attends jehovah's witness service: Not on file Active member of [...] Specified) ??? Mother ??? Father Filed Vitals: 10/17/18 1339 BP: 116/68 Pulse: 68 Resp: 16 Temp: 97.6 ??F (36.4 ??C) TempSrc: Oral SpO2: 96% Weight: 60.6 kg (133 lb 9.6 oz) Height: 5' 2 (1.575 m) Body mass index is 24.44 kg/m??. Physical Exam Constitutional General appearance: No acute distress, well appearing and well nourished. Head and Face Head and face: Normal. Eyes Conjunctiva and lids: No swelling, erythema or discharge. Ears, Nose, Mouth, and Throat External inspection of ears and nose: The TM is erythematous and bulging. Neck Neck: Supple, symmetric, trachea midline, no masses. Thyroid: Normal, no thyromegaly. Pulmonary Respiratory effort: No increased work of breathing or signs of respiratory distress. Auscultation of lungs: Clear to auscultation. Cardiovascular Auscultation of heart: Normal rate and rhythm, normal S1 and S2, no murmurs. Carotid pulses: 2+ bilaterally. Examination of extremities for edema and/or varicosities: Abnormal. Trace PE. Abdomen Abdomen: Non-tender, no masses. Liver and spleen: No hepatomegaly or splenomegaly. Lymphatic Palpation of lymph nodes in neck: No lymphadenopathy. Musculoskeletal Gait and station: Normal. Joints, bones, and muscles: Abnormal. Osteoarthritic changes. Muscle strength/tone: Normal. Skin Skin and subcutaneous tissue: Normal without rashes or lesions. Neurologic Cranial nerves: Cranial nerves II-XII intact. Diabetic Foot Exam: Right Foot Findings: Normal foot. The toes were normal. Left Foot Findings: Normal foot. The toes were normal. Monofilament Testing: Vascular: Pulses: 1+ in the dorsalis pedis. Pulses: 1+ in the dorsalis pedis. Assign Risk Category: 0: No loss of protective sensation, no deformity. No present risk. Psychiatric Judgment and insight: Normal. Orientation to person, place, and time: Normal. Recent and remote memory: Intact. Mood and affect: Normal. Results for orders placed or performed in visit on 10/17/18 HEMOGLOBIN, GLYCOSYLATED Result Value Ref Range HGB A1C 6.1 Assessment/PLAN 1. Otitis externa of right ear, unspecified chronicity, unspecified type 2. Type 2 diabetes mellitus with complication, without long-term current use of insulin ([facility]) - HEMOGLOBIN, GLYCOSYLATED 3. Mixed hyperlipidemia 4. Hypothyroidism, unspecified type - levothyroxine 50 MCG tablet; Take 1 tablet (50 mcg total) by mouth every morning. Dispense: 90 tablet; Refill: 2 Discussion Summary 1. Right ear pain. She does not need a new referral. I can call and reschedule the appointment. 2. Diabetes doing well off the metformin. Continue the same. 3. Hyperlipidemia. Continue the same. Check labs in the spring. 4. Thyroid, she is requesting refills 3 months at a time. We will do this and recheck her thyroid level in spring as well. Follow up in 3 months or PRN. Follow up FU 3 MONTHS NOEMI JADE MD 10/17/2018 5:57 PM documented in this encounter Plan of Treatment Not on file documented as of this encounter Procedures Procedure Name Priority Date/Time Associated Diagnosis Comments HEMOGLOBIN, GLYCOSYLATED Routine 10/17/2018 Type 2 diabetes mellitus with complication, without long-term current use of insulin ([facility]) documented in this encounter Results * HEMOGLOBIN, GLYCOSYLATED (10/17/2018) HGB A1C 6.1 SHEY JACKSON ([id number]), [place] Blood specimen (specimen) 10/17/2018 us Noemi Jade MD LABORATORY Final Result SEHY ODETTEFauzia ([id number]), [place] [address] [place] [address], documented in this encounter Visit Diagnoses Diagnosis Otitis externa of right ear, unspecified chronicity, unspecified type- Primary Type 2 diabetes mellitus with complication, without long-term current use of insulin ([facility]) Mixed hyperlipidemia Hypothyroidism, unspecified type documented in this encounter Care Teams Minibus Driver Relationship Specialty Start Date End Date Noemi Jade MD [facility]. [address] [address] PCP - General INTERNAL MEDICINE 08/23/18 03/03/23 Joni Mckeon MD [facility]. [address] [address] Christopher Bariatric Physician CARDIOVASCULAR DISEASE 07/04/18 documented as of this encounter
--- OUTSIDE RECORDS SUMMARY | 2024-04-05 00:23 | XMS_ITS | Encounter Summary ---
Author Organization [facility] Address [address] [place] [address]. [place] [address] [place] [address] Care Team Providers Care Satellite Tv Technician Name Role Phone Joni Mckeon MD Unavailable [phone] Noemi Barnard MD Primary Care Provider [phone] Encounter Details Date Type Department Care Team (Late st Contact Info) Description 08/28/2018 Abstract [facility] [address] [place], [place] [id number] Joni Mckeon MD Three [facility]. [address] [address] Social History Tobacco Use Types Packs/Day [...] Diagnosis Comments UREA NITROGEN, BLOOD (BUN) QUANT Routine 08/28/2018 8:48 AM CDT documented in this encounter Results * UREA NITROGEN, BLOOD (BUN) QUANT (08/28/2018 8:48 AM CDT) BUN 16 7 - 18 MG/DL 08/28/2018 9:14 AM CDT [facility] SERUM OR PLASMA SPECIMEN / Unknown 08/28/2018 8:48 AM CDT 08/28/2018 8:56 AM CDT us Generic Conversion Md [facility] Final R esult [facility] [address] [place] [address], [place] [phone] documented in this encounter Visit Diagnoses Diagnosis Other chest pain documented in this encounter Care Teams Satellite Tv Technician Relationship Specialty Start Date End Date Noemi Barnard MD [facility] [address] [place] [address] PCP - General INTERNAL MEDICINE 08/23/18 03/03/23 Joni Mckeon MD [address] [place] [address] Christopher Shovel Oiler CARDIOVASCULAR DISEASE 07/04/18 documented as of this encounter
--- OUTSIDE RECORDS SUMMARY | 2024-04-05 00:23 | XMS_ITS | Encounter Summary ---
Author Organization [facility] Address [address] [place] [address]. [place], [place] [id number] [place] [address] Care Team Providers Care Branding Specialist Name Role Phone Joni Mckeon MD Unavailable [phone] Noemi Barnard MD Primary Care Provider [phone] Encounter Details Date Type Department Care Team (Late st Contact Info) Description 09/08/2018 Orders Only [facility] Medical Group Multispecialty Care - [facility] [address] [facility], [address] [place] [address] Shasha Pierce, INCOMING FREIGHT CLERK Social History Tobacco Use Types Packs/Day Years [...] on filedocumented in this encounter Care Teams Branding Specialist Relationship Specialty Start Date End Date Noemi Barnard MD Three [facility]. [address] [address] PCP - General INTERNAL MEDICINE 08/23/18 03/03/23 Joni Mckeon MD Three [facility]. [address] [address] [place] Sewage Plant Supervisor CARDIOVASCULAR DISEASE 07/04/18 documented as of this encounter
--- OUTSIDE RECORDS SUMMARY | 2024-04-05 00:23 | XMS_ITS | Encounter Summary ---
Author Organization [facility] Address [address] [place] [address]. [place], [place] [id number] [place] [address] Care Team Providers Care Pig Handler Name Role Phone Joni Mckeon MD Unavailable [phone] Noemi Barnard MD Primary Care Provider [phone] Reason for Visit * Reason Comments Hearing Problem * Audiology Exam (Routine) - Closed Specialty Diagnoses / Procedures Referred By Eugenie crain Referred To Contact AUDIOLOGY / [facility] Audiology Diagnoses HEARING LOSS Procedures HEARING TEST Ariel Thomason MD [address] [place] [address] Phone: tel: fax: Prachi Richards AUD Referral ID Status Reason Start Date Expiration Date V isits Requested Visits Authorized [id number] Closed Audiology 11/22/2018 11/23/2019 100 100 Encounter Details Date Type Department Care Team (Late st Contact Info) Description 11/22/2018 2:00 PM CDT Office Visit [facility] Audiology [address] [place] [address] Prachi Richards AUD Lee, Carl W, MD [address] [place] [address] Hearing Problem Social History Tobacco Use Types Packs/Day [...] as of this encounter Progress Notes * EVA Peter - 11/22/2018 2:00 PM CDT Pt. referred by Ariel Thomason MD, ENT. Roxana has a known hearing loss and had been tx for OM, AD. Her daughter, Krystina TOMLIN would like to be the person to receive the phone call from Dr Thomason's office since her mom cannot hear well on the phone. Otoscopy abnormal with visible perforation AD.Tympanometry abnormal, AU; Type B for the left and Type As for the right. The left tympanogram has double the volume of the right suggesting the perforation. Pure tone air and bone conduction revealed moderately severe to profound SNHL, AU with a few lower frequencies of an ABG. Krystina will contact the [employer] to help finance new hearing aids for her. Thank you for the referral. documented in this encounter Plan of Treatment Not on file documented as of this encounter Visit Diagnoses Diagnosis Sensorineural hearing loss (SNHL) of both ears- Primary documented in this encounter Care Teams Pig Handler Relationship Specialty Start Date End Date Noemi Barnard MD [address] [id number] PCP - General INTERNAL MEDICINE 08/23/18 03/03/23 Joni Mckeon MD [address] [address] Christopher Barber Or Beauty Shop Manager CARDIOVASCULAR DISEASE 07/04/18 documented as of this encounter
--- OUTSIDE RECORDS SUMMARY | 2024-04-05 00:23 | XMS_ITS | Encounter Summary ---
Author Organization [facility] Address [address] [place] [address]. [place] [address] [place] [address] Care Team Providers Care Academic Support Director Name Role Phone Joni Mckeon MD Unavailable [phone] Noemi Barnard MD Primary Care Provider [phone] Encounter Details Date Type Department Care Team (Latest Contact Info) Description 10/14/2018 Scan HEALTH INFO SRVCS Scanned, Documents Social [...] on filedocumented in this encounter Care Teams Academic Support Director Relationship Specialty Start Date End Date Noemi Barnard MD Three [facility]. [facility] [address] [place] [address] PCP - General INTERNAL MEDICINE 08/23/18 03/03/23 Joni Mckeon MD Three [facility]. [address] [address] [place] Interlocking Installer CARDIOVASCULAR DISEASE 07/04/18 documented as of this encounter
--- OUTSIDE RECORDS SUMMARY | 2024-04-05 00:23 | XMS_ITS | Encounter Summary ---
Author Organization [facility] Address [address] [place] [address]. [place], [place] [address] [place] [address] Care Team Providers Care Laborer [place] Name Role Phone Joni Mckeon MD Unavailable [phone] Noemi Barnard MD Primary Care Provider [phone] Reason for Referral * Imaging (Routine) - Closed Specialty Diagnoses / Procedures Referred By Contac t Referred To Contact RADIOLOGY Diagnoses Breast cancer screening by mammogram Procedures MG SCREENING W SEAN KARLA Noemi Ramírez MD [address] [address] Phone: tel: fax: Referral ID Status Reason Start Date Expiration Date Visits Re quested Visits Authorized [id number] Closed 11/02/2018 12/04/2019 1 1 Reason for Visit * Reason Onset Date Comments Referral Request 11/01/2018 Encounter Details Date Type Department Care Team (Late st Contact Info) Description 11/01/2018 Telephone [facility] Medical Group Family & Internal Medicine [facility] [address] [place] [phone] [place] Barnard [place] [address] [place] [address] Referral Request Social History Tobacco Use Types Packs/Day [...] Progress Notes * Melanie Chavez RN - 11/02/2018 11:17 AM CDT Order placed. Message left for pt letting her know * Aston Garner MA - 11/01/2018 1:11 PM CDT Pt calling for referral for mammogram. Please call pt to discuss documented in this encounter Plan of Treatment Not on file documented as of this encounter Procedures Procedure Name Priority Date/Time Associated Diagnosis Comments MG SCREENING W SEAN KARLA DIGI Routine 11/30/2018 12:52 PM CDT Breast cancer screening by mammogram documented in this encounter Results * MG SCREENING W SEAN KARLA DIGI (11/30/2018 12:52 PM CDT) Anatomical Region Laterality Modality Breast Bilateral Mammography 11/30/2018 1:09 PM CDT Narrative 11/30/2018 1:12 PM CDT IMAGING STUDIES: MG SCREENING W SEAN KARLA DIGI ? DATE: 11/30/2018 12:24 PM INDICATION: screening. Bilateral breast reduction 2012, malignant lumpectomy of the left breast 2012, radiation therapy of the left breast COMPARISON: ??11/11/2017, 01/11/2017. FINDINGS: Bilateral PV INSTALLER TECH, CC and MLO views, digital with CAD. ??2-D with 3-D tomosynthesis. Breast compostition: Category B - There are areas of scattered fibroglandular density. No suspicious microcalcification, worrisome mass or new evidence of architectural distortion. ??No skin thickening or nipple retraction. Benign microcalcifications. CONCLUSION: No mammographic evidence of malignancy. BI-RADS Category 2 - benign findings. Annual screening mammography recommended ? MQSA BI-RADS Categories: [...] C) ??Study interpreted with computer aided detection. Interpreted By: Andrew Massey, 11/30/2018 1:09 PM Noemi Barnard MD MAMMO Final Result documented in this encounter Visit Diagnoses Diagnosis Breast cancer screening by mammogram- Primary documented in this encounter Care Teams Laborer Shaft Sinking Relationship Specialty Start Date End Date Noemi Barnard MD [facility]. [address] [address] PCP - General INTERNAL MEDICINE 08/23/18 03/03/23 Joni Mckeon MD [facility] [address] [place] [address] [place] Marine Geologist CARDIOVASCULAR DISEASE 07/04/18 documented as of this encounter
--- OUTSIDE RECORDS SUMMARY | 2024-04-05 00:23 | XMS_ITS | Encounter Summary ---
Author Organization [facility] Address [address] [place] [address]. [place], [place] [address] [place] [address] Care Team Providers Care Roster Clerk Name Role Phone Joni Mckeon MD Unavailable [phone] Noemi Barnard MD Primary Care Provider [phone] Reason for Referral * (Routine) - Closed Specialty Diagnoses / Procedures Referred By Howardac t Referred To Contact Diagnoses SOB (shortness of breath) Procedures Home O2 eval Zohaib Valdez MD [address] [place] [address] Phone: tel: fax: Referral ID Status Reason Start Date Expiration Date Visits Re quested Visits Authorized [id number] Closed 10/14/2018 11/15/2019 1 1 * (Routine) - Closed Specialty Diagnoses / Procedures Referred By Eugenie crain Referred To Contact Diagnoses SOB (shortness of breath) Procedures Complete PFT (pre/post [place], Lung Vol, Diff Capacity) (66243, 61011, 04349, 12495) Zohaib Valdez MD [address] [place] [address] Phone: tel: fax: Referral ID Status Reason Start Date Expiration Date Visits Re quested Visits Authorized [id number] Closed 09/01/2018 10/02/2019 1 1 Reason for Visit * (Routine) - Closed Specialty Diagnoses / Procedures Referred By Contac t Referred To Contact Diagnoses SOB (shortness of breath) Procedures Complete PFT (pre/post Luis Alberto, Lung Vol, Diff Capacity) (41355, 88450, 64110, 38585) Zohaib Valdez MD [address] [place] [address] Phone: tel: fax: Referral ID Status Reason Start Date Expiration Date Visits Re quested Visits Authorized [id number] Closed 09/01/2018 10/02/2019 1 1 Encounter Details Date Type Department Care Team (Late st Contact Info) Description 10/14/2018 1:33 PM CDT - 10/14/2018 11:59 PM CDT Hospital Encounter [facility] [place] [address] Zohaib Valdez MD [address] [place] [address] [phone] Discharge Disposition: Home or Self Care (Routine [...] on file documented as of this encounter Discharge Summaries * Sanna Quintanilla, SANITATION OFFICER - 10/14/2018 2:24 PM CDT Home Oxygen evaluation evaluation date and time Date of Evaluation: 10/14/18 Evaluation Time: 1415 Home Oxygen evaluation resting oxygen saturation Resting Saturation off Oxygen: 98 % Home oxygen evaluation exercise saturation Exercise Saturation off Oxygen: 95 % Distance Walked: 300 FT Oxygen Evaluation Comment: NO O2 REQUIRED documented in this encounter Medications at Time of Discharge aspirin EC 81 MG EC tabletIndication s:Anticoagulant Therapy Take 81 mg by mouth daily. Indications: Anticoagulant Therapy 01/03/2018 Cholecalciferol (VITAMIN D) 2000 units CapIndications:N utritional Support Take 2,000 Units by mouth daily. Indications: Nutritional Support 01/03/2018 amlodipine-benaz epril 5-20 MG capsule Take 1 capsule by mouth daily. 90 capsule 3 09/21/2018 0 Glucose Blood (ONE TOUCH ULTRA TEST STRIPS) test strip Use one strip 3 (three) times weekly and as needed to test blood glucose levels. 01/23/2015 [address] 25 MG tablet Take 1 tablet (25 mg total) by mouth every morning. 90 tablet 3 09/21/2018 0 Hydrocortisone (PROCTOCORT) 1 % CreamIndications :Hemorrhoids, unspecified hemorrhoid type Place 1 Dose rectally 2 (two) times daily as needed. 28.4 g 2 07/05/2018 9 LEVOTHYROXINE 50 MCG tabletIndication s:Hyperthyroidis m TAKE 1 TABLET BY MOUTH EVERY WEDNESDAY AND WEDNESDAY 24 tablet 10/11/2018 9 nitrofurantoin 100 MG capsule Take 100 mg by mouth 2 (two) times daily. 0 07/08/2018 9 PRAVASTATIN 40 MG tabletIndication s:Hyperlipidemia TAKE 1 TABLET BY MOUTH AT BEDTIME 90 tablet 08/23/2018 9 RANITIDINE 300 MG tabletIndication s:Gastroesophage al reflux disease without esophagitis TAKE 1 TABLET BY MOUTH EVERY NIGHT AT BEDTIME 90 tablet 08/23/2018 9 traMADol 50 MG tablet Take 1 tablet (50 mg total) by mouth every 8 (eight) hours as needed for Pain. 10 tablet 08/25/2018 9 documented as of this encounter Procedure Notes * Zohaib Valdez MD - 10/14/2018 12:00 AM CDT DIAGNOSIS: Shortness of breath. SPIROMETRY: Pre-bronchodilator FVC 105% predicted, FEV1 of 1.93 liters, 118% predicted; FEV1/FVC ratio 83%. Postbronchodilator FVC 110% predicted, FEV1 2.00 liters, 123% predicted, FEV1/FVC ratio 82%. Less than significant response to bronchodilator. Lung volumes; TLC 105% predicted, RV 100% predicted, ERV 42% predicted. Diffusing capacity; unadjusted DLCO 87% predicted. Six-minute walk test; patient walked 300 feet on room air with lowest SpO2 of 95%. OVERALL IMPRESSION: 1. Normal spirometry. 2. Less than significant response to bronchodilator. This does not preclude use. Clinical correlation advised. 3. Total lung capacity within normal limits. 4. Unadjusted DLCO within normal limits. #[id number] /NTS documented in this encounter Plan of Treatment Not on file documented as of this encounter Procedures Procedure Name Priority Date/Time Associated Diagnosis Comments HOME O2 EVAL Routine 10/14/2018 1:35 PM CDT SOB (shortness of breath) PULMONARY FUNCTION TEST Routine 10/14/2018 SOB (shortness of breath) documented in this encounter Results * Complete PFT (pre/post Luis Alberto, Lung Vol, Diff Capacity) (36216, 32989, 20890, 48485) (10/14/2018) us Zohaib Valdez MD PFT ORDERABLES Final Resul t documented in this encounter Visit Diagnoses Diagnosis SOB (shortness of breath) Shortness of breath documented in this encounter Administered Medications Inactive Administered Medications - up to 3 most recent administrations Medication Order MAR Action Action Date Dose Rate Site albuterol sulfate HFA 108 (90 Base) MCG/ACT inhaler 2 puff 2 puff, Inhalation, Once, 1 dose, On Wed10/14/18 at 1400 Given 10/14/2018 1:54 PM CDT 2 puffs documented in this encounter Care Teams Roster Clerk Relationship Specialty Start Date End Date Noemi Barnard MD [facility]. [address] [address] PCP - General INTERNAL MEDICINE 08/23/18 03/03/23 Joni Mckeon MD [facility]. [address] [address] [place] [facility] [employer] Manager CARDIOVASCULAR DISEASE 07/04/18 documented as of this encounter
--- OUTSIDE RECORDS SUMMARY | 2024-04-05 00:23 | XMS_ITS | Encounter Summary ---
Author Organization [facility] Address [address] [place] [address]. [place] [address] [place] [address] Care Team Providers Care State Appellate Clerk Name Role Phone Joni Mckeon MD Unavailable [phone] Noemi Barnard MD Primary Care Provider [phone] Encounter Details Date Type Department Care Team [...] filedocumented in this encounter Care Teams State Appellate Clerk Relationship Specialty Start Date End Date Noemi Barnard MD Three [facility]. [facility] [address] [place] [address] PCP - General INTERNAL MEDICINE 08/23/18 03/03/23 Joni Mckeon MD Three [facility]. [address] [address] [facility] Product Specialist CARDIOVASCULAR DISEASE 07/04/18 documented as of this encounter
--- OUTSIDE RECORDS SUMMARY | 2024-04-05 00:23 | XMS_ITS | Encounter Summary ---
Author Organization [facility] Address [address] [place] [address]. [place] [address] [place] [address] Care Team Providers Care Restaurant Area Director Name Role Phone Joni Mckeon MD Unavailable [phone] Noemi Barnard MD Primary Care Provider [phone] Encounter Details Date Type Department Care Team (Latest Contact Info) Description 10/25/2018 Scan HEALTH INFO SRVCS Scanned, Documents Social [...] filedocumented in this encounter Care Teams Restaurant Area Director Relationship Specialty Start Date End Date Noemi Barnard MD Three [facility]. [facility] [address] [place] [address] PCP - General INTERNAL MEDICINE 08/23/18 03/03/23 Joni Mckeon MD Three [facility]. [address] [address] [place] Heater Planer Operator CARDIOVASCULAR DISEASE 07/04/18 documented as of this encounter
--- OUTSIDE RECORDS SUMMARY | 2024-04-05 00:23 | XMS_ITS | Encounter Summary ---
Author Organization [facility] Address [address] [place] [address]. [place] [address] [place] [address] Care Team Providers Care Cardiovascular Tech Name Role Phone Joni Mckeon MD Unavailable [phone] Noemi Barnard MD Primary Care Provider [phone] Reason for Visit * Reason Comments Shortness Of Breath New patient referred for SOB: PFT results * Consultation/Treatment (Routine) - Closed Specialty Diagnoses / Procedures Referred By Contac t Referred To Contact PULMONARY DISEASE Diagnoses Shortness of breath Procedures OFFICE/OUTPT VISIT,JW CHU John P, MD Three [facility]. [facility] [address] [place] [address] Phone: tel: fax: Zohaib Valdez MD [address] [place] [address] [facility] [address] [place] [address] Phone: tel: fax: Referral ID Status Reason Start Date Expiration Date Visits Re quested Visits Authorized [id number] Closed 08/25/2018 02/25/2019 1 1 Encounter Details Date Type Department Care Team (Late st Contact Info) Description 11/02/2018 10:00 AM CDT Office Visit [facility] - [address], [address] [place] [address] Zohaib Valdez MD [address] [place] [address] Shortness Of Breath (New patient referred for SOB: PFT results) Social History Tobacco Use Types Packs/Day Years [...] Sign Reading Time Taken Comments Blood Pressure 142/70 11/02/2018 9:39 AM CDT Pulse 76 11/02/2018 9:39 AM CDT Temperature 36.3 ??C (97.3 ??F) 11/02/2018 9:39 AM CD T Respiratory Rate 20 11/02/2018 9:39 AM CDT Oxygen Saturation 95% 11/02/2018 9:39 AM CDT ra Inhaled Oxygen Concentration - - Weight 61.6 kg (135 lb 14.4 oz) 11/02/2018 9:39 AM CDT Height 157.5 cm (5' 2 ) 11/02/2018 9:39 AM CDT Body Mass Index 24.86 11/02/2018 9:39 AM CDT documented in this encounter Progress Notes * Zohaib Valdez MD - 11/02/2018 10:00 AM CDT [facility] PULMONARY MEDICINE History Chief Complaint Patient presents with ??? Shortness Of Breath New patient referred for SOB: PFT results 83-year-old white female never smoker past medical history of, diabetes, hypertension, and diastolic dysfunction presents for establishment of care. Initially referred for dyspnea. At initial visit 11/02/2018: Notes progressively worsening dyspnea over the past 3-4 years Currently able to walk 50-100 yards prior to developing dyspnea, notes occasional breathlessness with a long speaking Notes an infrequent cough, typically nonproductive Notes occasional wheezing when dyspneic Denies chest pain, palpitations Denies significant weight fluctuation, hemoptysis Notes occasional seasonal/environmental allergies Notes history of chronic ear infections, sinus congestion Notes GERD, fairly well-controlled Denies aspiration symptoms Denies witnessed apneas, excessive daytime somnolence, napping Never smoker; denies alcohol/illicits Former rags-rt-izdv mom, 7 children, x2 Hobbies included playing cards and bingo Notes possible exposure to TB in the past Denies exposure to asbestos, mold, birds PFT 10/14/2018: FVC 105%, FEV1 1.93 L, 118%, FEV1/FVC 83%. Post bronchodilator FVC 110%, FEV1 2.00 L, 125%, FEV1/FVC 82%. Less than significant response to bronchodilator. TLC 105%, RV 100%, ERV 42%, unadjusted DLCO 87% predicted. Past Medical History: Diagnosis Date ??? Cancer [...] (cardiac disorder) Other ??? Heart Attack Mother Current Outpatient Medications Medication Sig Dispense Refill ??? amlodipine-benazepril 5-20 MG capsule Take 1 capsule by mouth daily. 90 capsule 3 ??? aspirin EC 81 MG EC tablet Take 1 tablet by mouth daily. ??? Cholecalciferol (VITAMIN D) 2000 units Cap Take 1 capsule by mouth daily. ??? hydrochlorothiazide 25 MG tablet Take 1 tablet (25 mg total) by mouth every morning. 90 tablet 3 ??? levothyroxine 50 MCG tablet Take 1 tablet (50 mcg total) by mouth every morning. 90 tablet 2 ??? PRAVASTATIN 40 MG tablet TAKE 1 TABLET BY MOUTH AT BEDTIME 90 tablet 0 ??? RANITIDINE 300 MG tablet TAKE 1 TABLET BY MOUTH EVERY NIGHT AT BEDTIME 90 tablet 0 ??? amoxicillin-clavulanate 875-125 MG tablet Take 1 tablet by mouth 2 (two) times daily. For 10 days 0 No current facility-administered medications for this visit. No Known Allergies Immunization History Administered Date(s) Administered ? ? Fluzone High Dose - >Age 65 (Prefilled Syringe) 01/15/2014, 01/07/2015, 01/09/2016, 01/12/2016, 12/20/2017 ??? Influenza (Afluria - Preservative Free) 01/07/2017 ??? Influenza Adult (Generic) 01/13/2013, 01/07/2015, 01/09/2016, 12/21/2017 Review of Systems Constitutional: Negative for chills, fever, malaise/fatigue and weight loss. HENT: Positive for congestion. Negative for sinus pain and sore throat. Eyes: Negative for photophobia. Respiratory: Positive for shortness of breath. Negative for cough, hemoptysis, sputum production, wheezing and stridor. Cardiovascular: Negative for chest pain, palpitations, orthopnea, leg swelling and PND. Gastrointestinal: Negative for abdominal pain, nausea and vomiting. Musculoskeletal: Negative for back pain, joint pain and myalgias. Skin: Negative for rash. Neurological: Negative for dizziness, focal weakness and headaches. Endo/Heme/Allergies: Positive for environmental allergies. Psychiatric/Behavioral: Negative for depression and suicidal ideas. Physical Exam Filed Vitals: 11/02/18 0939 BP: 142/70 Pulse: 76 Resp: 20 Temp: 97.3 ??F (36.3 ??C) SpO2: 95% Weight: 61.6 kg (135 lb 14.4 oz) Height: 5' 2 (1.575 m) Physical Exam: General: wf, sitting comfortably in nad Neuro: alert, appropriate Head: nc, at EENT: no sinus ttp, mallampati 2 Neck: supple, no jvd, no appreciable LAD Resp: non-labored, ctab, no wheezes; faint left basilar crackles CV: s1,s2; rrr; distant heart tones; no audible murmur Abd: s, nt, nd, bs+ Ext: no clubbing; trace ble edema; pulses present and equal bilaterally Skin: no visible rashes Assessment 1. Dyspnea on exertion -Multifactorial -Physical deconditioning -Consider diastolic dysfunction -No COPD/asthma on PFT 2. Diastolic dysfunction 3. Physical deconditioning 4. Seasonal/environmental allergies Plan 1. Encouraged healthy lifestyle; diet/exercise 2. Ktmg-oss-cupjarl allergy medication -Zyrtec/Claritin 3. Discussed inhaler therapy, defer at present 4. Defer additional pulmonary testing given normal findings on PFT rtc prn Zohaib Valdez MD, FCCP documented in this encounter Plan of Treatment Not on file documented as of this encounter Visit Diagnoses Diagnosis Otitis externa of right ear, unspecified chronicity, unspecified type- Primary SOB (shortness of breath) Shortness of breath Essential hypertension Unspecified essential hypertension Gastroesophageal reflux disease without esophagitis Esophageal reflux Physical deconditioning Debility, unspecified Environmental and seasonal allergies documented in this encounter Care Teams Cardiovascular Tech Relationship Specialty Start Date End Date Noemi Barnard MD [address] [address] PCP - General INTERNAL MEDICINE 08/23/18 03/03/23 Joni Mckeon MD [facility]. [address] [address] [place] Vibrator Equipment Tester CARDIOVASCULAR DISEASE 07/04/18 documented as of this encounter
--- OUTSIDE RECORDS SUMMARY | 2024-04-05 00:23 | XMS_ITS | Encounter Summary ---
Author Organization [facility] Address [address] [place] [address]. [place] [address] [place] [address] Care Team Providers Care Grant Writer Name Role Phone Joni Mckeon MD Unavailable [phone] Noemi Barnard MD Primary Care Provider [phone] Encounter Details Date Type Department Care Team (Latest Contact Info) Description 01/06/2019 Scan HEALTH INFO SRVCS Scanned, Documents Social [...] on filedocumented in this encounter Care Teams Grant Writer Relationship Specialty Start Date End Date Noemi Barnard MD Three [facility]. [facility] [address] [place] [address] PCP - General INTERNAL MEDICINE 08/23/18 03/03/23 Joni Mckeon MD Three [facility]. [address] [address] [place] Afternoon Babysitter CARDIOVASCULAR DISEASE 07/04/18 documented as of this encounter
--- OUTSIDE RECORDS SUMMARY | 2024-04-05 00:23 | XMS_ITS | Encounter Summary ---
Author Organization [facility] Address [address] [place] [address]. [place] [address] [place] [address] Care Team Providers Care Part Time Flexible Clerk Name Role Phone Joni Mckeon MD Unavailable [phone] Noemi Barnard MD Primary Care Provider [phone] Reason for Visit * Reason Onset Date Comments Concerns 09/12/2018 Encounter Details Date Type Department Care Team (Late st Contact Info) Description 09/12/2018 Telephone [facility] at [address] [address] Noemi Miller, RN Concerns Social History Tobacco Use Types Packs/Day Years [...] as of this encounter Progress Notes * Noemi Miller RN - 09/12/2018 4:28 PM CDT I informed the patient of the above information from Gita MCKEON. The patient verbalized understandingand had no further questions. * Noemi Miller RN - 09/12/2018 2:42 PM CDT I left a voicemail for the patient to call our office. The office number and my extension were provided. * INDRA Franco - 09/12/2018 2:18 PM CDT Post cath labs were stable. No change in medications. Sees me 09/27 * Noemi Miller RN - 09/12/2018 11:18 AM CDT I received a phone call from the patient stating that she started a water pill and then had labs drawn but does not know the results. I informed the patient that she was started on HCTZ 12.5mg daily due to SOB, then had a cardiac cath. I asked the patient if she was still SOB. The patient states that she continues to feel SOB with exertion - SOB is the same as before the cath. The patient denies any swelling or weight gain. I asked the patient if the procedure was through her right wrist or right groin. The patient states that it was her right wrist and she was having some swelling and pain but that has resolved; the patient has no concerns re: right wrist. I informed the patient that I will notify the CLIENT ENGAGEMENT MANAGER. The patient had no further questions. Message to Gita MCKEON. documented in this encounter Plan of Treatment Not on file documented as of this encounter Visit Diagnoses Not on filedocumented in this encounter Care Teams Part Time Flexible Clerk Relationship Specialty Start Date End Date Noemi Barnard MD [address] [address] PCP - General INTERNAL MEDICINE 08/23/18 03/03/23 Joni Mckeon MD [facility]. [address] [address] [place] Ui Engineer CARDIOVASCULAR DISEASE 07/04/18 documented as of this encounter
--- OUTSIDE RECORDS SUMMARY | 2024-04-05 00:23 | XMS_ITS | Encounter Summary ---
Author Organization [facility] Address [address] [place] [address]. [place], [place] [address] [place] [address] Care Team Providers Care Combat Information Center Officer Name Role Phone Joni Mckeon MD Unavailable [phone] Noemi Barnard MD Primary Care Provider [phone] Reason for Visit * Imaging (Routine) - Closed Specialty Diagnoses / Procedures Referred By Contac t Referred To Contact RADIOLOGY Diagnoses Breast cancer screening by mammogram Procedures MG SCREENING W SEAN KARLA Noemi Ramírez MD Three [address] [address] Phone: tel: fax: Referral ID Status Reason Start Date Expiration Date Visits Re quested Visits Authorized [id number] Closed 11/02/2018 12/04/2019 1 1 Encounter Details Date Type Department Care Team (Latest Contact Info) Description 11/30/2018 12:18 PM CDT - 11/30/2018 11:59 PM T Hospital Encounter [facility] Mammography [address] [place] [address] [place] [address] [place] [address] Discharge Disposition: Home or Self [...] mouth daily. 90 capsule 3 09/21/2018 0 amoxicillin-clav ulanate 875-125 MG tablet Take 1 tablet by mouth 2 (two) times daily. For 10 days 0 10/25/2018 [address] 25 MG tablet Take [...] 11/21/2018 9 documented as of this encounter Plan of [...] 2012, malignant lumpectomy of the left breast 2011, radiation therapy of the left breast COMPARISON: ??11/11/2017, 01/11/2017. FINDINGS: Bilateral JANITORIAL ACCOUNT MANAGER, CC and MLO views, digital with CAD. [...] Result documented in this encounter Visit Diagnoses Not on filedocumented in this encounter Care Teams Combat Information Center Officer Relationship Specialty Start Date End Date Noemi Barnard MD Three [facility]. [facility] [address] [place] [address] PCP - General INTERNAL MEDICINE 08/23/18 03/03/23 Joni Mckeon MD Three [facility]. [facility] [address] [place] [address] [place] Engine Assembly Supervisor CARDIOVASCULAR DISEASE 07/04/18 documented as of this encounter
--- OUTSIDE RECORDS SUMMARY | 2024-04-05 00:23 | XMS_ITS | Encounter Summary ---
Author Organization [facility] Address [address] [place] [address]. [place], [place] [address] [place] [address] Care Team Providers Care Chief Informatics Officer Name Role Phone Joni Mckeon MD Unavailable [phone] Noemi Barnard MD Primary Care Provider [phone] Reason for Visit * Reason Comments Hearing Aid Check Encounter Details Date Type Department Care Team (Late st Contact Info) Description 10/25/2018 2:00 PM CDT Office Visit [facility] Audiology [address] [place], [place] [id number] Prachi Richards, [place] [address] [place], [place] [id number] Hearing Aid Check Social History Tobacco Use Types Packs/Day [...] as of this encounter Progress Notes * Prachi M Maurice, AUD - 10/25/2018 2:00 PM CDT Walk-in hearing aid clean and repair. New tubing. documented in this encounter Plan of Treatment Not on file documented as of this encounter Visit Diagnoses Diagnosis Sensorineural hearing loss (SNHL), unspecified laterality- Primary documented in this encounter Care Teams Chief Informatics Officer Relationship Specialty Start Date End Date Noemi Barnard MD Three [facility]. [address] [id number] PCP - General INTERNAL MEDICINE 08/23/18 03/03/23 Joni Mckeon MD Three [facility]. [address] [address] [place] Build[employer] And Grounds Superintendent CARDIOVASCULAR DISEASE 07/04/18 documented as of this encounter
--- OUTSIDE RECORDS SUMMARY | 2024-04-05 00:23 | XMS_ITS | Encounter Summary ---
Author Organization [facility] Address [address] [place] [address]. [place] [address] [place] [address] Care Team Providers Care Skin Drier Name Role Phone Joni Mckeon MD Unavailable [phone] Noemi Barnard MD Primary Care Provider [phone] Encounter Details Date Type Department Care Team (Latest Contact Info) Description 11/08/2018 Scan HEALTH INFO SRVCS Scanned, Documents Social [...] on filedocumented in this encounter Care Teams Skin Drier Relationship Specialty Start Date End Date Noemi Barnard MD Three [facility]. [facility] [address] [place] [address] PCP - General INTERNAL MEDICINE 08/23/18 03/03/23 Joni Mckeon MD Three [facility]. [address] [address] [place] Supervisor Pipe Manufacture CARDIOVASCULAR DISEASE 07/04/18 documented as of this encounter
--- OUTSIDE RECORDS SUMMARY | 2024-04-05 00:24 | XMS_ITS | Encounter Summary ---
Author Organization [facility] Address [address] [place] [address]. [place] [address] [place] [address] Care Team Providers Care Commercial Driver Name Role Phone Josep Mckeon MD Unavailable [phone] Martha Ruiz NP Primary Care Provider Andrés pederson Encounter Details Date Type Department Care Team (Late st Contact Info) Description 08/03/2018 Orders Only [facility] [address] [place] [address] Josep Mckeon MD [address] [address] Social History Tobacco Use Types Packs/Day [...] on file Sexual Orientation Not on file documented as of this encounter Plan of Treatment Not on file documented as of this encounter Procedures Procedure Name Priority Date/Time Associated Diagnosis Comments NM EXER NUC STRESS TEST 1DAY 08/03/2018 3:38 PM CDT documented in this encounter Results * NM EXER NUC STRESS TEST 1DAY (08/03/2018 3:38 PM CDT) Anatomical Region Laterality Modality Cardiac Nuclear Medicine 08/03/2018 3:38 PM CDT Narrative 08/03/2018 12:00 AM CDT ROXANA RITCHIE ? Admit/Service Date: 08/03/18 ?? Acct: [id number] ?Discharge Date: ?? : 1935 ??Sex: F ?Ord Site: [facility] ?? Pt Type: REG CLI ? Ordering MD: JOSEP MCKEON MD ? Study Date ? Report # ?Order # ? Ext Order ID ?? 08/03/18 ? [id number] ? [id number] ?[id number] ? Proc Code: ? MYOCARDRS ? Procedure Description: ?? NM Myocard Perf Strs Rst SPECT ? IMAGING STUDIES: ??NM MYOCARD PERF STRS RST SPECT ? DATE: ??08/03/2018 2:23 PM ? COMPARISON STUDIES: No previous available. ? CLINICAL HISTORY: OTHER - SOB ??. Hypertension, chest pain ? TECHNIQUE: Rest portion of the study imaged after the administration of 11.01 mCi technetium 99m Myoview. Stress portion of the study imaged after the administration of 28.41 mCi technetium 99m Myoview. Chemical stress test performed. Lexiscan dose: 0.4 mg Lexiscan IV. ? Peak Mets: ??3.1 Peak heart rate 136 bpm. Peak blood pressure 170/80 mmHg.. ? FINDINGS AND IMPRESSION: ? 1. ??Left ventricular ejection fraction calculated at 69%. ? 2. ??Left ventricular wall motion evaluation demonstrates no areas of hypokinesia or dyskinesia. ? 3. ??SPECT images of the heart demonstrate no areas of matched or mismatched defects that could represent an old infarct or acute reversible ischemia. Matched apical defect likely secondary to artifact with the chest wall. ? Procedure Note Geronimo Parker MD - 08/03/2018 ROXANA RITCHIE Admit/Service Date:08/03/18 Acct: [id number] Discharge Date: : 1935 Sex: F Ord Site: [facility] Pt Type: REG CLI Ordering MD:JOSEP MCKEON MD Study Date Report # Order # Ext Order ID 08/03/18 [id number] Proc Code: MYOCARDRS Procedure Description: NM Myocard Perf Strs Rst SPECT IMAGING STUDIES: NM MYOCARD PERF STRS RST SPECT DATE: 08/03/2018 2:23 PM COMPARISON STUDIES: No previous available. CLINICAL HISTORY: OTHER - SOB . Hypertension, chest pain TECHNIQUE: Rest portion of the study imaged after the administration of11.01 mCi technetium 99m Myoview. Stress portion of the study imaged after the administration of28.41 mCi technetium 99m Myoview. Chemical stress test performed. Lexiscan dose: 0.4 mg LexiscanIV. Peak Mets: 3.1 Peak heart rate 136 bpm. Peak blood pressure 170/80 mmHg.. FINDINGS AND IMPRESSION: 1. Left ventricular ejection fraction calculated at 69%. 2. Left ventricular wall motion evaluation demonstrates no areas ofhypokinesia or dyskinesia. 3. SPECT images of the heart demonstrate no areas of matched ormismatched defects that could represent an old infarct or acute reversible ischemia. Matched apicaldefect likely secondary to artifact with the chest wall. Josep Mckeon MD [facility] [place] MED Edited Result - Final documented in this encounter Visit Diagnoses Not on filedocumented in this encounter Care Teams Commercial Driver Relationship Specialty Start Date End Date Martha Ruiz NP [facility]. [facility] [place] [id number] PCP - General NURSE PRACTITIONER 07/04/18 08/22/18 Josep Mcke[facility] MD [facility] [address] [place] [address] [employer] CARDIOVASCULAR DISEASE 07/04/18 documented as of this encounter
--- OUTSIDE RECORDS SUMMARY | 2024-04-05 00:24 | XMS_ITS | Encounter Summary ---
Author Organization [facility] Address [address] [place] [address]. [place] [address] [place] [address] Care Team Providers Care Environmental Air Specialist Name Role Phone Joni Mckeon MD Unavailable [phone] Noemi Barnard MD Primary Care Provider Encounter Details Date Type Department Care Team (Late st Contact Info) Description 08/25/2018 8:56 AM CDT - 08/25/2018 11:59 PM T Hospital Encounter [facility] [place], [place] [address] Joni Mckeon MD [facility]. [address] [place], [place] [address] Discharge Disposition: Home or Self Care (Routine [...] by mouth daily. Indications: Nutritional Support 01/03/2018 AMLODIPINE-BENAZE PRIL 5-20 MG capsuleIndication s:Essential hypertension TAKE ONE CAPSULE BY MOUTH DAILY 30 capsule 07/25/2018 08/31/19 19 Glucose Blood (ONE TOUCH ULTRA TEST STRIPS) test strip Use one strip 3 (three) times weekly and as needed to test blood glucose levels. 01/23/2015 10/18/19 19 hydrochlorothiazi de 25 MG tablet Take 0.5 tablets (12.5 mg total) by mouth every morning. 15 tablet 3 08/17/2018 09/22/19 19 Hydrocortisone (PROCTOCORT) 1 % CreamIndications: Hemorrhoids, unspecified hemorrhoid type Place 1 Dose rectally 2 (two) times daily as needed. 28.4 g 2 07/05/2018 10/18/19 19 hydrocortisone 1 % cream JEREMÍAS RECTALLY BID PRN 2 07/05/2018 09/22/19 19 LEVOTHYROXINE 50 MCG tabletIndications :Hyperthyroidism TAKE 1 TABLET BY MOUTH EVERY WEDNESDAY AND WEDNESDAY 24 tablet 07/25/2018 10/12/19 19 nitrofurantoin 100 MG capsule Take 100 mg by mouth 2 (two) times daily. 0 07/08/2018 10/18/19 19 PRAVASTATIN 40 MG tabletIndications :Hyperlipidemia TAKE 1 TABLET BY MOUTH AT BEDTIME 90 tablet 08/23/2018 11/22/19 19 RANITIDINE 300 MG tabletIndications :Gastroesophageal reflux disease without esophagitis TAKE 1 TABLET BY MOUTH EVERY NIGHT AT BEDTIME 90 tablet 08/23/2018 11/22/19 19 traMADol 50 MG tablet Take 1 tablet (50 mg total) by mouth every 8 (eight) hours as needed for Pain. 10 tablet 08/25/2018 10/18/19 19 documented as of this encounter Plan of Treatment Not on file documented as of this encounter Procedures Procedure Name Priority Date/Time Associated Diagnosis Comments PROTHROMBIN TIME, VENOUS Routine 08/25/2018 9:03 AM CDT Abnormal stress test SOB (shortness of breath) Benign essential HTN BASIC METABOLIC PANEL Routine 08/25/2018 9:03 AM CDT Abnormal stress test SOB (shortness of breath) Benign essential HTN CBC W/DIFF AUTOMATED Routine 08/25/2018 9:03 AM CDT Abnormal stress test SOB (shortness of breath) Benign essential HTN documented in this encounter Results * PROTHROMBIN TIME, VENOUS (08/25/2018 9:03 AM CDT) PROTIME 11.6 9.6 - 12.2 SEC 08/25/2018 10:11 AM CDT [facility] INR 1.0 08/25/2018 10:11 AM CDT [facility] Comment: Recommended INR Therapeutic Goals: ??2.0-3.0 Routine Therapy ??2.5-3.5 Mechanical Prosthetic Valves (High Risk) ??3.0-4.0 Acute MO (to prevent Systemic Embolism) The INR is used only for patients on stable oral anticoagulant therapy. It makes no significant contribution to the diagnosis or treatment of patients whose Protime is prolonged for other reasons. 08/25/2018 9:03 AM CDT us Joni Mckeon MD LABORATORY Final Result [facility] [address] [place] [address], * (ABNORMAL) CBC W/DIFF AUTOMATED (08/25/2018 9:03 AM CDT) WBC 4.1(L) 4.5 - 11.0 x10'3/uL 08/25/2018 9:53 AM CDT [facility] RBC 5.04 4.20 - 5.40 x10'6/uL 08/25/2018 9:53 AM CDT [facility] HGB 13.6 12.0 - 16.0 G/DL 08/25/2018 9:53 AM CDT [facility] HCT 42.6 38.0 - 48.0 % 08/25/2018 9:53 AM CDT [facility] MCV 84.5 80.0 - 94.0 FL 08/25/2018 9:53 AM CDT [facility] MCH 27.0 27.0 - 31.0 PG 08/25/2018 9:53 AM CDT [facility] MCHC 31.9(L) 32.0 - 36.0 G/DL 08/25/2018 9:53 AM T [facility] RDW 14.3 11.5 - 14.5 % 08/25/2018 9:53 AM T [facility] PLT 222 130 - 400 x10'3/uL 08/25/2018 9:53 AM CDT [facility] MPV 10.1 9.3 - 12.2 FL 08/25/2018 9:53 AM T [facility] DIFFERENTIAL TYPE AUTOMATED DIFFERENTIAL 08/25/2018 9:53 AM CDT [facility] NEUTROPHILS % 71.4 % 08/25/2018 9:53 AM T [facility] LYMPHOCYTES % 17.5 % 08/25/2018 9:53 AM CDT [facility] MONOCYTES % 8.1 % 08/25/2018 9:53 AM CDT [facility] EOSINOPHILS 2.0 % 08/25/2018 9:53 AM CDT [facility] BASOPHILS 0.5 % 08/25/2018 9:53 AM CDT [facility] IMMATURE GRANS % 0.5 % 08/26/19 9:53 AM CDT [facility] ABS. NEUTROPHILS TOTAL 2.89 1.80 - 7.70 x10'3/uL 08/25/2018 9:53 AM CDT [facility] ABS. LYMPHOCYTES 0.71(L) 1.00 - 4.80 x10'3/uL 08/25/2018 9:53 AM CDT [facility] ABS. MONOCYTES 0.33 0.24 - 0.86 x10'3/uL 08/25/2018 9:53 AM CDT [facility] ABS. EOSINOPHILS 0.08 0.04 - 0.36 x10'3/uL 08/25/2018 9:53 AM CDT [facility] ABS. BASOPHILS 0.02 0.01 - 0.08 x10'3/uL 08/25/2018 9:53 AM CDT [facility] ABS. IMMATURE GRANULOCYTES 0.02 0.00 - 0.49 x10'3/uL 08/25/2018 9:53 AM CDT [facility] 08/25/2018 9:03 AM CDT Joni Mckeon MD LABORATORY Final Result [facility] [address] [place] [address], [place] [phone] * (ABNORMAL) BASIC METABOLIC PANEL (08/25/2018 9:03 AM CDT) [facility] GLUCOSE 114(H) 70 - 99 MG/DL 08/25/2018 10:08 AM CDT [facility] BUN 22(H) 7 - 18 MG/DL 08/25/2018 10:08 AM CDT [facility] CREATININE S/P/B 1.00 0.55 - 1.02 MG/DL 08/25/2018 10:08 AM CDT [facility] SODIUM S/P/B 140 136 - 145 MMOL/L 08/25/2018 10:08 AM CDT [facility] POTASSIUM S/P/B 3.7 3.5 - 5.1 MMOL/L 08/25/2018 10:08 AM CDT [facility] CHLORIDE S/P/B 107 100 - 108 MMOL/L 08/25/2018 10:08 AM CDT [facility] CO2 28.2 21 - 32 MMOL/L 08/25/2018 10:08 AM CDT [facility] CALCIUM S/P/B 9.5 8.5 - 10.1 MG/DL 08/25/2018 10:08 AM CDT [facility] ANION GAP 8.5 8 - 20 MMOL/L 08/25/2018 10:08 AM T [facility] BUN CREATININE RATIO 22.1 6 - 26 08/25/2018 10:08 AM T [facility] EGFR NON-AFR. AMER. 52(L) >90 ML/MIN/1.7 3 M2 08/25/2018 10:08 AM T [facility] EGFR AFR. AMER. 60(L) >90 ML/MIN/1.7 3 M2 08/25/2018 10:08 AM T [facility] Comment: NOTE: eGFR is not calculated for patients <18 years of age. This is an estimated GFR (CKD EPI) and should not be used for calculating drug doses. 08/25/2018 9:03 AM CDT us Joni Mckeon MD LABORATORY Final Result [facility] [address] [place] [address], [place] [phone] documented in this encounter Visit Diagnoses Diagnosis Abnormal stress test Other nonspecific abnormal cardiovascular system function study SOB (shortness of breath) Shortness of breath Benign essential HTN Essential hypertension, benign documented in this encounter Care Teams Environmental Air Specialist Relationship Specialty Start Date End Date Noemi Barnard MD [facility]. [address] [address] PCP - General INTERNAL MEDICINE 08/23/18 03/03/23 Joni Mckeon MD [facility]. [address] [address] [employer] CARDIOVASCULAR DISEASE 07/04/18 documented as of this encounter
--- OUTSIDE RECORDS SUMMARY | 2024-04-05 00:24 | XMS_ITS | Encounter Summary ---
Author Organization [facility] Address [facility]. [place], [place] [id number] [place] [address] Care Team Providers Care Car Rider Name Role Phone Josep Mckeon MD Unavailable [phone] Noemi Barnard MD Primary Care Provider [phone] Reason for Referral * Imaging (Routine) - Closed Specialty Diagnoses / Procedures Referred By Contac t Referred To Contact RADIOLOGY Diagnoses Abnormal stress test SOB (shortness of breath) Benign essential HTN Procedures [facility] Josep Price MD [address] [address] Phone: tel: fax: [place] [address] Phone: tel: Referral ID Status Reason Start Date Expiration Date Visits Re quested Visits Authorized [id number] Closed 08/18/2018 09/25/2018 1 1 Reason for Visit * Imaging (Routine) - Closed Specialty Diagnoses / Procedures Referred By Contac t Referred To Contact RADIOLOGY Diagnoses Abnormal stress test SOB (shortness of breath) Benign essential HTN Procedures [facility] Josep Price MD Three [address] [address] Phone: tel: fax: [facility] [place] [address] Phone: tel: Referral ID Status Reason Start Date Expiration Date Visits Re quested Visits Authorized [id number] Closed 08/18/2018 09/25/2018 1 1 Encounter Details Date Type Department Care Team (Late st Contact Info) Description 08/25/2018 8:56 AM CDT - 08/25/2018 6:00 PM CDT Hospital Encounter [facility] [place] [address] Josep Mckeon MD Three [facility]. [address] [address] Discharge Disposition: Home or Self Care (Routine [...] Sign Reading Time Taken Comments Blood Pressure 156/68 08/25/2018 3:00 PM CDT Pulse 57 08/25/2018 3:00 PM CDT Temperature - - Respiratory Rate 14 08/25/2018 3:00 PM CDT Oxygen Saturation 96% 08/25/2018 3:00 PM CDT Inhaled Oxygen Concentration - - Weight 58.2 kg (128 lb 4.9 oz) 08/25/2018 9:39 A M CDT Height 157.5 cm (5' 2 ) 08/25/2018 9:39 AM CDT Body Mass Index 23.47 08/25/2018 9:39 AM CDT documented in this encounter Discharge Instructions * Discharge Instructions* Malgorzata Wolfe RN - 08/25/2018 2:05 PM CDT Follow post-cath instructions (white folder) No driving for 24 hours No lifting over 5lbs Take medications as prescribed Non-fasting lab work on Wednesday Call Dr. Mckeon if any post-procedure issues or questions [phone] * Attachments The following attachments cannot be sent through Care Everywhere. * Cardiac Catheterization Discharge Instructions (Emirati) * Moderate Sedation in Adults Discharge Instructions (Emirati) documented in this encounter Medications at Time [...] 10/18/19 19 documented as of this encounter H&P Notes * Josep Mckeon MD - 08/25/2018 11:03 AM CDT HISTORY AND PHYSICAL INTERVAL NOTE: I have reviewed Roxana Ritchie History & Physical which was performed within the past 30 days. After examining Roxana Ritchie, no change has occurred in the patient's condition since the H&P was completed. Informed Consent Discussion: Risks, benefits, alternatives as well as the consequences of not performing the surgery/procedure were discussed with the patient and/or family/personal roofing sales representative. Questions were answered and the patient/family/personal roofing sales representative verbalized understanding and desires to proceed. Previous Adverse Experience with Sedation, Analgesia, or Anesthesia? No Physical Exam: General: AAOx3, no acute distress HENT: MMM, no scleral icterus, EOM intact Cardiac: Normal S1/S2, no murmurs,gallops, or rubs Pulmonary: normal breath sounds bilaterally, no wheezing or crackles GI: normal bowel sounds in all 4 quadrants, abd soft, nontender, nondistended Neuro: CN II-XII intact ASA Classification: 2 Mallampati: 2 NPO: after midnight Planned Sedation/Analgesic Agent(s): Versed/Fentanyl Planned Procedure(s): Cath/PTCI Signed: Dr. Mkie MD Source Note - Josep Mckeon MD - 08/17/2018 5:21 PM CDT documented in this encounter OR Notes * Brief Op Note - Josep Mckeon MD - 08/25/2018 11:53 AM CDT Procedure Note Roxana Ritchie 08/25/2018 Procedure: lhc, coronaries, lvgram Pre-Op Diagnosis: sob, abnormal stress. Post-Op Diagnosis: moderate cad Findings: EF: 65% LVEDP: 7mmHg Coronary Dominance: Right Left Main: 20% Left Anterior Descending Artery: 40% Diagonal Artery: Luminal Irregularities Left Circumflex Artery: Luminal Irregularities Obtuse Marginal Artery: Luminal Irregularities Right Coronary Artery: normal Posterior Descending Artery: normal Complications: None Surgeon: JOSEP MCKEON MD Estimated Blood Loss: Minimal JOSEP MCKEON MD Date: 08/25/2018 Time: 11:53 AM documented in this encounter Plan of Treatment Not on file documented as of this encounter Procedures Procedure Name Priority Date/Time Associated Diagnosis Comments [facility] POSS Routine 08/25/2018 12:00 PM CDT Abnormal stress test SOB (shortness of breath) Benign essential HTN documented in this encounter Results * XA C POSS (08/25/2018 12:00 PM CDT) Anatomical Region Laterality Modality Cardiac Newspaper Journalist Narrative 08/30/2018 3:27 PM CDT Diagnostic Cardiac Catheterization Report Cardiac Catheterization / Electrophysiology Laboratory Patient Information Patient: ROXANA RITCHIE Medical Records Number: [id number] Address: [address] [place] [address]: [place] ?? State: [place] Zip: [id number] Date of : 1935 ?? Gender: Female Event Identifiers Date of Procedure: 08/25/2018 Catheterization Number: [id number] Attending MD: JOSEP MCKEON MD Referring MD: Gini PARKER MD Procedure Description Cor/LV Indications Positive Stress Test ?? History 83-year-old patient with known history of coronary artery disease with mildly abnormal stress test and shortness of breath. Patient underwent a left heart catheterization. ??Ultrasound was used to guide vessel access. Technique Related risks, benefits and complications were explained to the patient and the patient? s family prior to the procedure. ??The patient and the family agreed to proceed. I performed moderate sedation for 27 minutes. ??I supervised and directed Marcella Frost/Kat Dickerson RN's who assisted in monitoring the patient's level of consciousness and physiologic status throughout the procedure. The patient was prepped and draped in the usual fashion. ??Ultrasound was used for vascular access. ??The patient's right radial artery had been checked and ulnar circulation was confirmed by both Sacha's test and by oximetry measurements. ??With the ulnar circulation being adequate the decision was made to get access from the right radial artery. ??Local anesthetic was injected over the site of entry. ??Once the area had been adequately anesthetized a Micro puncture needle was used and access was gained to the right radial artery. ??The needle was then advanced through the artery. ??The needle was removed. ??The intra-cath was then pulled back until good flow was obtained. ??A Micro puncture wire was then advanced through the intra-cath into the right radial artery and this intra-cath sheath was removed. ??Once the wire was in position a 5/6 Amharic sheath was advanced over this wire and placed in the right radial artery. ??Wire and dilator were removed. ??A mixture of Lidocaine, Verapamil and Nitroglycerin was injected through the side arm of the sheath. Heparin was injected intravenously. Hemodynamic data was obtained. ?? A Wholey wire was then advanced through the sheath and under fluoroscopy it was confirmed that the wire had been advanced all the way to the aortic root. ??Pigtail catheter was then advanced all the way to the aortic root. ?? Pigtail catheter was then advanced over this wire and once in the aortic root the wire was removed. ??Pigtail catheter was then advanced into the left ventricle and hemodynamic data was obtained. ??Ventriculography was performed in the SMITH projection. ??Pullback pressures were obtained. ??The Wholey wire was then advanced through the Pigtail catheter and leaving the wire in position pigtail catheter was removed. ??After assessing the ascending aorta and the aortic root the decision was made to take a diagnostic catheter, this catheter was then advanced over the wire to the aortic root. ??The wire was removed. ??Catheter was adequately flushed. ?? Right coronary artery was first cannulated and angiograms of the right coronary artery were performed. Following this the left coronary artery was cannulated with the same catheter and multiple angiograms of the left coronary artery were performed. ??Once the study had been completed catheter was removed from the coronary artery. ??A Wholey wire was then advanced through the catheter and the catheter was removed. ?? Sheath was removed and a Hemoband was applied and good hemostasis was achieved. ??Adequate flow was noted through the ulnar artery and the hand remained warm and with adequate flow. ?? The patient tolerated the procedure and no complications were noted. Left ventriculogram demonstrates ejection fraction of 67%. The left ventricular pressure was 134/7 with an end-diastolic pressure of 7 mmHg. There was no mitral regurgitation Contrast Contrast Type Contrast Amount Isovue 85 ml Fluoro Time: ??6.3 minutes Anticoagulants Type: Heparin Total Dose: 2500 units Diagnostic Catheterization Findings Coronary Dominance: Co-dominant LM Stenosis: 0% LAD Stenosis: 40% Other LAD (Distal/Diagonal): 0% RCA Stenosis: 0% CIRC Stenosis: 0% Comments on Coronary Arteries Left Main: Left main is a moderate-sized vessel which appears to be angiographically normal. LAD: The LAD is a moderate-sized vessel which wraps the apex. ?? In the proximal portion of the LAD there appears to be approximately 40% stenosis. ??This is a moderate-sized diagonal branch which appears to be angiographically normal. Circumflex: The circumflex artery is a moderate-sized non-dominant vessel. There is a moderate-size first obtuse marginal that appears to be angiographically normal. ??Ongoing obtuse marginal appears to be angiographically normal. ??There is moderate tortuosity of the coronary vessels. RCA: Right coronary artery is a moderate-sized dominant vessel which has minimal luminal irregularities throughout. ??The PDA is a moderate size vessel which appears to be angiographically normal. Hemodynamics State: PRE ANGIO Pressures Site Pressure 1 Pressure 2 Pressure 3 Heart Rate AO (S/D) 119 59 83 67 LV (S/ED) 134 1 7 67 State: POST ANGIO Pressures Site Pressure 1 Pressure 2 Pressure 3 Heart Rate AO (S/D) 124 63 91 67 LV (S/ED) 121 8 9 67 Valve Data Aortic Mean Gradient: -15.2 mmHg SEP: 15 sec/min Summary 1. ??Right dominant coronaries. 2. ??Normal LVEDP. 3. ??Normal LV function. 4. ??Moderate coronary artery disease. Plan 1. ??Aggressive risk factor modification. 2. ??High intensity statin therapy. 3. ??Evaluation for patient's non-cardiac causes of shortness of breath. JOSEP MCKEON MD ? JS/vs DATE INTERPRETED: ??08/25/18 @ 20:04 ?? DATE TRANSCRIBED: ??08/30/18 Josep Mckeon MD BRAND MARKETING MANAGER Final Result documented in this encounter Visit Diagnoses Diagnosis Atypical chest pain- Primary Other chest pain Abnormal stress test Other nonspecific abnormal cardiovascular system function study SOB (shortness of breath) Shortness of breath Benign essential HTN Essential hypertension, benign documented in this encounter Administered Medications Inactive Administered Medications - up to 3 most recent administrations Medication Order MAR Action Action Date Dose Rate Site acetaminophen (TYLENOL) tablet 650 mg 650 mg, Oral, Once, 1 dose, On Veronica 08/25/18 at 1700, Maximum dose of acetaminophen is 4000 mg from all sources in 24 hours. Given 08/25/2018 4:44 PM CDT 650 mg fentaNYL (SUBLIMAZE) injection 12.5 mcg 12.5 mcg, Intravenous, Every 1 hour PRN, Severe pain (Scale 8 - 10), Starting on Veronica 08/25/18 at 1523, Until Veronica 08/25/18 at 2039, If intravenous (IV) route has been ordered, give over 1-2 minutes. Given 08/25/2018 3:45 PM CDT 12.5 mcg fentaNYL (SUBLIMAZE) injection Code/trauma/sedation medication, Starting on Veronica 08/25/18 at 1122, Until Veronica 08/25/18 at 2039 Given 08/25/2018 11:26 AM CDT 25 mcg Given 08/25/2018 11:22 AM CDT 25 mcg midazolam (VERSED) injection Code/trauma/sedation medication, Starting on Veronica 08/25/18 at 1122, Until Veronica 08/25/18 at 2039 Given 08/25/2018 11 :26 AM CDT 1 mg Given 08/25/2018 11:22 AM CDT 1 mg nitroglycerin (NITROSTAT) SL tablet 0.4 mg 0.4 mg, Sublingual, Every 5 min PRN, Chest Pain, 3 doses, Starting on Veronica 08/25/18 at 0909, Until Veronica 08/25/18 at 2039, Notify provider if pain not relieved by one tablet. Hold for SBP less than 90 mmHg., Pre-Op documented in this encounter Active and Recently Administered Medications Times are shown in CDT. Scheduled Medication Order 08/23/2018 08/24/2018 08/25/2018 acetaminophen (TYLENOL) tablet 650 mg (COMPLETED) 650 mg, Oral, Once, 1 dose, On Veronica 08/25/18 at 1700, Maximum dose of acetaminophen is 4000 mg from all sources in 24 hours. 1644 (Given - Provid er: Niki Childers RN) sodium chloride 0.9% infusion at 100 mL/hr, Intravenous, Once, 1 dose, On Veronica 08/25/18 at 0930 0930 (Canceled Entry - Provider: Automatic Discharge Provider - Comment: Automatically canceled at discontinue of medication order) Continuous Medication Order 08/23/2018 08/24/2018 08/25/2018 sodium chloride 0.9% infusion at 125 mL/hr, Intravenous, Continuous, Starting on Veronica 08/25/18 at 1415, Until Veronica 08/25/18 at 1614, Post-Op 1415 (Due) PRN Medication Order 08/23/2018 08/24/2018 08/25/2018 fentaNYL (SUBLIMAZE) injection 12.5 mcg 12.5 mcg, Intravenous, Every 1 hour PRN, Severe pain (Scale 8 - 10), Starting on Veronica 08/25/18 at 1523, Until Veronica 08/25/18 at 2039, If intravenous (IV) route has been ordered, give over 1-2 minutes. 1545 (Given - Provid er: Malgorzata Wolfe RN) fentaNYL (SUBLIMAZE) injection Code/trauma/sedation medication, Starting on Veronica 08/25/18 at 1122, Until Veronica 08/25/18 at 2039 1122 (Given - Provid er: Marcella Frost RN)1126 (Given - Provider: Marcella Frost RN) midazolam (VERSED) injection Code/trauma/sedation medication, Starting on Veronica 08/25/18 at 1122, Until Veronica 08/25/18 at 2039 1122 (Given - Provid er: Marcella Frost RN)1126 (Given - Provider: Marcella Frost RN) nitroglycerin (NITROSTAT) SL tablet 0.4 mg 0.4 mg, Sublingual, Every 5 min PRN, Chest Pain, 3 doses, Starting on Veronica 08/25/18 at 0909, Until Veronica 08/25/18 at 2040, Notify provider if pain not relieved by one tablet. Hold for SBP less than 90 mmHg., Pre-Op documented in this encounter Care Teams Car Rider Relationship Specialty Start Date End Date Noemi Barnard MD Three [facility]. [address] [id number] PCP - General INTERNAL MEDICINE 08/23/18 03/03/23 Josep Mckeon MD [facility]. [address] [address] [place] [employer] Developer CARDIOVASCULAR DISEASE 07/04/18 documented as of this encounter
--- OUTSIDE RECORDS SUMMARY | 2024-04-05 00:24 | XMS_ITS | Encounter Summary ---
Author Organization [facility] Address [address] [place] [address]. [place] [address] [place] [address] Care Team Providers Care Hand Stoner Name Role Phone Joni Mckeon MD Unavailable Martha Ruiz NP Primary Care Provider Andrés pederson Reason for Referral * Consultation (Routine) - Closed Specialty Diagnoses / Procedures Referred By Eugenie crain Referred To Contact OTOLARYNGOLOGY Diagnoses Right ear pain Noemi Jade MD Phone: tel: fax: [facility] [address] [place] [phone] Phone: tel: fax: Referral ID Status Reason Start Date Expiration Date Visits Re quested Visits Authorized [id number] Closed 07/05/2018 08/04/2019 100 100 Reason for Visit * Reason Comments Medication Check discuss medications Med Refills needing testing stri ps Follow Up routine, 6 month fol low up Constipation concerned with const ipation due to change in DM medication Encounter Details Date Type Department Care Team (Late st Contact Info) Description 07/05/2018 2:00 PM CDT Office Visit [facility] [id number] [place] [phone] [place] [id number] [place] [address] Medication Check (discuss medications ); Med Refills (needing testing strips); Follow Up (routine, 6 month follow up); Constipation (concerned with constipation due to change in DM medication) Social History Tobacco Use Types Packs/Day Years [...] Sign Reading Time Taken Comments Blood Pressure 138/70 07/05/2018 1:58 PM CDT Pulse 84 07/05/2018 1:58 PM CDT Temperature 36.6 ??C (97.9 ??F) 07/05/2018 1:58 PM CD T Respiratory Rate 18 07/05/2018 1:58 PM CDT Oxygen Saturation 97% 07/05/2018 1:58 PM CDT Inhaled Oxygen Concentration - - Weight 59.5 kg (131 lb 3.2 oz) 07/05/2018 1:58 P M CDT Height 157.5 cm (5' 2 ) 07/05/2018 1:58 PM CDT Body Mass Index 24 07/05/2018 1:58 PM CDT documented in this encounter Progress Notes * Noemi Jade MD - 07/05/2018 2:00 PM CDT Reason for Visit: Medication Check (discuss medications ); Med Refills (needing testing strips); Follow Up (routine, 6 month follow up); and Constipation (concerned with constipation due to change in DM medication) HPI An 82-year-old female here today with her daughter to discuss her medical care. The daughter realized the mother is having more memory problems, was not taking her medications regularly. The daughteris now filling a weekly senior production planner which is helping, but wonders if we might not be able to simplify her medications. Regarding her metformin when she was on immediate release, she was having diarrhea often. Now that she has been changed to extended release, she is complaining of constipation, only going small amounts. Her blood pressure has been well controlled but on two medications. Patient states she is not taking the hydroxyzine. Her thyroid has been well controlled and she does have an appointment with thecardiologist tomorrow. Diabetes Type II (Follow-Up): The patient states [...] Head and Face: Negative. Eyes: Negative. ENT: Negative. Cardiovascular: Negative. Respiratory: Negative. Gastrointestinal: Negative. Musculoskeletal: Joint stiffness. Integumentary and Breasts: Negative. Neurological: Tingling. Psychiatric: Negative. Endocrine: Negative. Current Outpatient Medications: ??? amlodipine-benazepril 5-20 MG capsule, Take 1 capsule by mouth daily., Disp: 30 capsule, Rfl: 0 ??? aspirin EC 81 MG EC tablet, Take 1 tablet by mouth daily., Disp: , Rfl: ??? Cholecalciferol (VITAMIN D) 2000 units Cap, Take 1 capsule by mouth daily., Disp: , Rfl: ??? Glucose Blood (ONE TOUCH ULTRA TEST STRIPS) test strip, Use one strip 3 (three) times weekly and as needed to test blood glucose levels., Disp: , Rfl: ??? Hydrocortisone (PROCTOCORT) 1 % Cream, Place 1 Dose rectally 2 (two) times daily as needed., Disp: 28.4 g, Rfl: 2 ??? LEVOTHYROXINE 50 MCG tablet, TAKE 1 TABLET BY MOUTH EVERY WEDNESDAY AND WEDNESDAY, Disp: 24 tablet,Rfl: 0 ??? Melatonin 10 MG Cap, Take one tablet by mouth at bedtime as needed for sleep., Disp: , Rfl: ??? PRAVASTATIN 40 MG tablet, TAKE 1 TABLET BY MOUTH AT BEDTIME, Disp: 90 tablet, Rfl: 0 ??? RANITIDINE 300 MG tablet, TAKE ONE TABLET BY MOUTH AT BEDTIME NIGHTLY, Disp: 90 tablet, Rfl: 0 No Known [...] Not on file ??? Number of children: Not on file ??? Years of education: Not on file ??? Highest education level: Not on file Occupational History ??? Not on file Social Needs ??? Financial resource strain: Not [...] file Gets together: Not on file Attends hinduism service: Not on file Active member of club or organization: Not on file Attends meetings of clubs or organizations: Not on file Relationship status: Not on file ??? Intimate partner violence: Fear of current or ex partner: Not on file Emotionally abused: Not on file Physically abused: Not on file Forced sexual activity: Not on file Other Topics Concern ??? Not on file Social History Narrative ??? Not on file Family History Problem Relation Name Age of Onset ??? Diabetes Other ??? Breast Cancer Other ??? Other (cardiac disorder) Other Family Status Relation Name Status ??? Other (Not Specified) Filed Vitals: 07/05/18 1358 BP: 138/70 Pulse: 84 Resp: 18 Temp: 97.9 ??F (36.6 ??C) TempSrc: Oral SpO2: 97% Weight: 59.5 kg (131 lb 3.2 oz) Height: 5' 2 (1.575 m) Body mass index is 24 kg/m??. Physical Exam Constitutional General appearance: No acute distress, well appearing and well nourished. Head and Face Head and face: Normal. Eyes Conjunctiva and lids: No swelling, erythema or discharge. Ears, Nose, Mouth, and Throat External inspection of ears and nose: Normal. Neck Neck: Supple, symmetric, trachea midline, no [...] remote memory: Intact. Mood and affect: Normal. Assessment/PLAN 1. Essential hypertension - amlodipine-benazepril 5-20 MG capsule; Take 1 capsule by mouth daily. Dispense: 30 capsule; Refill: 0 2. Hemorrhoids, unspecified hemorrhoid type - Hydrocortisone (PROCTOCORT) 1 % Cream; Place 1 Dose rectally 2 (two) times daily as needed. Dispense: 28.4 g; Refill: 2 CHECK A1c AT NEXT APPT DISCUSSION AND SUMMARY Essential hypertension. We will use a combined medication so she is taking one instead of two. She can discuss the statin with the data processing control clerk whether to continue this. We will go ahead and discontinue the metformin since she is having GI symptoms and reassess her A1c in 3 months, Proctocort for the hemorrhoids. DC the levothyroxine 75 and use only 50 mg. Patient and daughter seem please with the plan, will follow up in 3 months to reassess. Otherwise, RTO PRN. Impression: Diabetes type II. Currently, the condition is variably controlled. The diagnostic plan includes hemoglobin A1c, fasting lipid profile, renal function testing, liver function testing and urine microalbumin. (Referral for dilated eye exam when due) Medication changes are as documented in orders. Other planned treatment includes diabetic education, exercise program and diabetic foot care. The plan was discussed with the patient. The impression is hypertension. Currently, the condition is stable. Medication changes are as documented in orders. Other planned treatment includes an exercise regimen, dietary modification and weight loss. The plan was discussed with the patient. Impression: Dyslipidemia. The diagnostic plan includes fasting lipid profile and liver function tests. Other planned treatment includes exercise program, weight loss program and dietary modification.The plan was discussed with the patient. Follow up FU 3 MONTHS NOEMI JADE MD 07/05/2018 3:08 PM documented in this encounter Plan of Treatment Scheduled Referrals Name Type Priority Associated Diagnoses Orde r Schedule Ambulatory referral to ENT Referral Routine Right ear pain Ordered: 07/05/2018 documented as of this encounter Visit Diagnoses Diagnosis Essential hypertension- Primary Unspecified essential hypertension Hemorrhoids, unspecified hemorrhoid type Right ear pain Otalgia, unspecified documented in this encounter Care Teams Hand Stoner Relationship Specialty Start Date End Date Martha Ruiz NP [facility]. [address] [address] PCP - General NURSE PRACTITIONER 07/04/18 08/22/18 Joni Mckeon MD [facility]. [address] [address] Christopher Parquetry Layer CARDIOVASCULAR DISEASE 07/04/18 documented as of this encounter
--- OUTSIDE RECORDS SUMMARY | 2024-04-05 00:24 | XMS_ITS | Encounter Summary ---
Author Organization [facility] Address [address] [place] [address]. [place], [place] [address] [place] [address] Care Team Providers Care Histological Illustrator Name Role Phone Joni Mckeon MD Unavailable [phone] Martha Parker PHYSIOTHERAPY PRACTICE MANAGER Primary Care Provider Andrés pederson Reason for Visit * Reason Comments Breathing Problem sob on exertion * Consultation (Urgent) - Closed Specialty Diagnoses / Procedures Referred By Contact Referred To Contact CARDIOLOGY / Cardiology Diagnoses Essential hypertension Dizziness Martha Parker, MIKE [facility] [address] [place] [address] [facility] AT [address] [address] Phone: tel: fax: Referral ID Status Reason Start Date Expiration Date V isits Requested Visits Authorized [id number] Closed Specialty Services 06/18/2018 07/18/2019 100 100 Encounter Details Date Type Department Care Team (Late st Contact Info) Description 07/06/2018 1:30 PM CDT Office Visit [facility] AT [address] [address] Joni Mckeon MD [facility] [address] [place], [place] [id number] Breathing Problem (sob on exertion) Social History Tobacco Use Types Packs/Day Years [...] Sign Reading Time Taken Comments Blood Pressure 132/72 07/06/2018 1:50 PM CDT Pulse 78 07/06/2018 1:50 PM CDT Temperature - - Respiratory Rate - - Oxygen Saturation 98% 07/06/2018 1:50 PM CDT Inhaled Oxygen Concentration - - Weight 59 kg (130 lb) 07/06/2018 1:50 PM CDT Height 157.5 cm (5' 2 ) 07/06/2018 1:50 PM CDT Body Mass Index 23.78 07/06/2018 1:50 PM CDT documented in this encounter Patient Instructions * Patient Instructions* Devika Zeng - 07/06/2018 1:30 PM CDT Images from the original note were not included. Patient Education Patient Education Low Salt Diet About this topic Sodium is a type of mineral found in many foods. It may also be called salt. It helps keep the balance of fluids in your body. Too much sodium may be bad for your health. You may have to limit the amount of sodium in your food. Salt is known as sodium chloride. It is measured in grams (g) or milligrams (mg). Salt or sodium comes from 3 main sources: ?? 10% is naturally found in food. ?? 15% is salt that we add to our food when we eat or cook. ?? 75% comes from processed foods. These may have very high amounts of sodium. What will the results be? This diet may help lower your blood pressure. It may also help reduce extra water in your body. This may help kidney, heart, or liver problems. What changes to diet are needed? You need to know how much sodium is in the food you eat. Read food labels with care. Choose foods that have 5% or less sodium in one serving. Remember, if you eat more than one serving, you will be getting more sodium. It may take a while for your sense of taste to get used to food with less sodium. Be patient with yourself. You may be surprised at how well you will do. Try to aim for a diet that has 2000 mg (2 g) or less sodium in it each day. The Food & Drug Administration (FDA) has set up guidelines for food labels. These will help you make healthy choices. Look for these terms on food packages: ?? Sodium-free: Less than 5 mg in each serving. These are safe to eat. ?? Very low sodium: 35 mg of sodium or less in each serving. These are safe to eat. ?? Low sodium: 140 mg of sodium or less in each serving. You need to eat these with care. ?? Reduced sodium: At least 25% less sodium than is most often found in each serving. These foods are still high in sodium. ?? Light in sodium: 50% less sodium in each serving. ?? Unsalted, no added salt, and without added salt: No salt is added during processing but the foodmay still have sodium. Read the food label and check the sodium content before eating. What foods are good to eat? You can control the amount of sodium in foods you make at home. Fresh foods that you cook are most often lower in sodium. ?? Regular bread, unsalted crackers, bread sticks, dry cereal, cooked rice, pasta, and muffins ?? Fresh, frozen, low sodium, or salt-free canned vegetables. Limit vegetable juice or tomato juiceto 1/2 cup (120 mL) each day. ?? Fresh, frozen, canned, or dried fruit without salt added ?? Nonfat or low-fat milk and yogurt, cottage cheese, cream cheese, mozzarella cheese, eritrean cheese, low-fat ricotta, and low-sodium or low-fat cheese ?? Fresh or frozen beef, veal, palacio, pork, poultry, fish, shellfish ?? Low sodium canned meats, frozen dinners with less than 600 mg sodium ?? Unsalted corn, safflower, sunflower, and soybean oils and nuts and seeds ?? Egg and egg substitutes ?? Dried peas, beans, and low-sodium peanut butter ?? All plain oils and low-sodium salad dressing ?? Low-sodium broths, soups, soy sauce, condiments, and snack foods ?? Pepper, herbs, spices, vinegar, lemon or bear river juice ?? Low-sodium carbonated drinks What foods should be limited or avoided? Foods that are prepackaged or canned are most often high in sodium. Other foods to avoid include: ?? Salted breads, rolls, crackers, biscuits, cornbread ?? Quick breads, self-rising flours, biscuit mixes, regular bread crumbs, instant hot cereals ?? Commercially prepared rice, pasta, or stuffing mixes; potatoes and vegetable mixes ?? Regular canned vegetables and juices, vegetables with sauce, and pickled vegetables ?? Processed fruits with salt or sodium ?? Malted and chocolate milk and buttermilk ?? Regular and processed cheese and spreads ?? Smoked, cured, salted, or canned meat, fish, or poultry such as woodward, sausages, sardines, chipped beef, cold cuts, and frozen breaded meats ?? Salted and canned peas, beans, and olives ?? Salted snack foods, olives, and nuts ?? Oils mixed with high-sodium parts such as salad dressing ?? Meat tenderizers, seasoning salt, and most flavored vinegars ?? Commercially softened water What can be done to prevent this health problem? Check with your doctor before using salt substitutes. Also, check the labels when taking dajw-hzb-bhqphmt (OTC) drugs such as laxatives and antacids. These can have high sodium content. When do I need to call the doctor? Call your doctor if you have questions about this diet. Talk to a dietitian. They can help you findhidden sources of sodium in the food you eat. Helpful tips ?? Use the nutrition facts labels as a guide to look for foods lower in sodium. ?? Do not use salt when eating or cooking. ?? Select fresh fruits and vegetables for snacks. ?? If you are eating out, ask the lehr tender to cook your food without salt, or choose foods without sauces. ?? Season your food with herbs and spices. Where can I learn more? [place] [employer] Association http://www.heart.org/HEARTORG/HealthyLiving/HealthyEating/Nutrition/Alphwc-ptg-Z [facility]_303290_Article.jsp NHS Choices http://www.nhs.uk/livewell/goodfood/pages/salt.aspx UpToDate http://www.[employer].Pogoseat/contents/zue-bsuzwo-hqyv-khtujp-lsi-nisfej Last Reviewed Date 2015-12-27 Consumer Information Use and Disclaimer This information [...] is right for you. Copyright Copyright ?? 2019 ISVS Clinical Drug Information, [employer]. and its affiliates and/or licensors. All rights reserved. documented in this encounter Progress Notes * Joni Mckeon MD - 07/06/2018 1:30 PM CDT * Joni Mckeon MD - 07/06/2018 1:30 PM CDT REASON FOR CONSULTATION: Recommendations, evaluation and management of an 82 year-old woman with complaints of exertional dyspnea, shortness of breath, and fatigue. HISTORY OF PRESENT ILLNESS: Nearly 83 year-old woman who has no known history of coronary disease. No history of valvular heart disease. No history of significant arrhythmia. The patient's ECG demonstrates sinus rhythm with a right bundle branch block and a left anterior fascicular block. She has known history of carotid artery stenosis on recent carotid duplex. The patient's daughter notes that she has been much more short of breath. The patient states that with minimal amounts of exertion shehas to stop and rest. She has had no significant chest pains. She does note some fullness in the chest associated with this. The patient has had no calf pain or swelling. She denies any wheezing. Shehas had some complaints of paroxysmal nocturnal dyspnea. No orthopnea. She reportedly has a historyof a heart murmur. She has not had a recent echocardiogram. Additionally, the patient has had complaints of chest pain in the past. She did have a left heart catheterization at some point in the past, which did not demonstrate any significant obstructive coronary disease by patient's recollection. Patient has had problems with chronic diarrhea. Her blood pre ssures have been elevated previously, but appear to be significantly improved with recent medication changes. She is otherwise doing well. IMPRESSION AND RECOMMENDATION: 1. Shortness of breath. The patient has significant limiting exertional dyspnea. She has a history of hyperlipidemia. She has carotid artery stenosis as well as hypertension. She is going to be at increased risk for obstructive coronary disease. I am scheduling her for a walking Lexiscan stress study. In addition, given her symptoms she does have some edema. We will obtain an echocardiogram at that time. I am also ordering a chest x-ray. I advised her to continue her Aspirin. Given that she does have known carotid artery stenosis, I would like her to stay on her Pravastatin for now and we can make a decision in the future about stopping it if she has difficulties. Blood pressures were well controlled in the clinic today. She has had problems with elevated blood pressures in the past. Otherwise, we will see her back after her scheduled test. I advised her to continue her aspirin. Medications: Current Outpatient Medications: ??? AMLODIPINE-BENAZEPRIL 5-20 MG capsule, TAKE ONE CAPSULE BY MOUTH DAILY, Disp: 30 capsule, Rfl: 0 ??? aspirin [...] systems reviewed and are negative. Filed Vitals: 07/06/18 1350 BP: 132/72 Pulse: 78 SpO2: 98% Weight: 59 kg (130 lb) Height: 5' 2 (1.575 m) Body mass index is 23.78 kg/m??. Physical Exam Rate/Rhythm: regular rhythm and normal rate . Heart Sounds: normal heart sounds, normal S1 and normal S2 no gallop, no S3 sound, no S4 sound and no murmur. . PMI: PMI not displaced. Pulses: normal pulses negative for edema Constitutional: healthy appearance not distressed. . Neck: neck supple no JVD. . Pulmonary/Chest Wall: effort normal and breath sounds normal . HEENT: teeth/gums normal and oropharynx clear and moist. . Abdomen: no tenderness and no mass. . Eyes: conjunctivae normal. Neurological: alert, oriented x 3 and appropriate for situation, . Skin: dry and warm no cyanosis and no clubbing. Musculoskeletal: no kyphosis Cardiovascular Comments: Diagnoses/Impression: No diagnosis found. Referring Provider: Martha Parker PCP: MARTHA PARKER NP documented in this encounter Plan of Treatment Not on file documented as of this encounter Visit Diagnoses Diagnosis SOB (shortness of breath)- Primary Shortness of breath Atypical chest pain Other chest pain Mixed hyperlipidemia Essential hypertension Unspecified essential hypertension Carotid atherosclerosis, unspecified laterality documented in this encounter Care Teams Histological Illustrator Relationship Specialty Start Date End Date Martha Parker NP [facility]. [address] [address] PCP - General NURSE PRACTITIONER 07/04/18 08/22/18 Joni Mckeon MD [facility]. [facility] [address] [place] [address] [place] Maintenance Worker CARDIOVASCULAR DISEASE 07/04/18 documented as of this encounter
--- OUTSIDE RECORDS SUMMARY | 2024-04-05 00:24 | XMS_ITS | Encounter Summary ---
Author Organization [facility] Address [address] [place] [address]. [place] [address] [place] [address] Care Team Providers Care Outpatient Pharmacy Manager Name Role Phone Joni Mckeon MD Unavailable [phone] Martha Ruiz NP Primary Care Provider Andrés pederson Encounter Details Date Type Department Care Team (Late st Contact Info) Description 07/08/2018 Abstract [facility] [address] [place] [address] Joni Mckeon MD [address] [address] Social History Tobacco Use Types [...] as of this encounter Visit Diagnoses Diagnosis Shortness of breath documented in this encounter Care Teams Outpatient Pharmacy Manager Relationship Specialty Start Date End Date Martha Ruiz NP [facility] [address] [address] PCP - General NURSE PRACTITIONER 07/04/18 08/22/18 Joni Mckeon MD Three [facility]. [address] [address] [place] Director Of Global Talent CARDIOVASCULAR DISEASE 07/04/18 documented as of this encounter
--- OUTSIDE RECORDS SUMMARY | 2024-04-05 00:24 | XMS_ITS | Encounter Summary ---
Author Organization [facility] Address [facility] [place] [address] [place] [address] Care Team Providers Care Human Resource Adviser Name Role Phone Joni Mckeon MD Unavailable [phone] Martha Ruiz NP Primary Care Provider Noemi Gracia MD Primary Care Provider [phone] Encounter Details Date Type Department Care Team (Latest Contact Info) Description 08/18/2018 Scan [facility] Scanned, Documents Social [...] on filedocumented in this encounter Care Teams Human Resource Adviser Relationship Specialty Start Date End Date Martha Ruiz, MIKE Three [facility]. [facility] [address] [place] [address] PCP - General NURSE PRACTITIONER 07/04/18 08/22/18 Noemi Barnard MD [address] [address] PCP - General INTERNAL MEDICINE 08/23/18 03/03/23 Joni Mckeon MD [address] [address] [place] [employer] Machine Operator CARDIOVASCULAR DISEASE 07/04/18 documented as of this encounter
--- OUTSIDE RECORDS SUMMARY | 2024-04-05 00:24 | XMS_ITS | Encounter Summary ---
Author Organization [facility] Address [address] [place] [address]. [place] [address] [place] [address] Care Team Providers Care Director Of Field Service Name Role Phone Josep Mckeon MD Unavailable [phone] Martha Ruiz NP Primary Care Provider Andrés pederson Encounter Details Date Type Department Care Team (Late st Contact Info) Description 08/03/2018 Orders Only [facility] [address] [place] [address] Josep Mckeon MD [facility]. [address] [address] Social History Tobacco Use Types [...] Procedure Name Priority Date/Time Associated Diagnosis Comments CARDIOLOGY GENERIC 08/03/2018 7: 30 PM CDT documented in this encounter Results * CARDIOLOGY GENERIC (08/03/2018 7:30 PM CDT) 08/03/2018 7:30 PM CDT Narrative [facility] ([facility]) RAD - 08/04/2018 12:00 AM CDT ? ROXANA RITCHIE MD: JOSEP MCKEON MD ?? Acct: [id number] ?? Admit/Service Date: 08/03/18 Discharge Date: ?? : 1935 Pt Type: REG CLI ?? Sex: F Ord Site: [facility] ? CHART DOCUMENT ?? DATE: ??08/03/2018 ? ORDER #: ??[id number] ? STRESS TEST ? ECG PORTION OF LEXISCAN STRESS TEST ? INDICATION: ??Chest pain. ? PROCEDURE: ??Patient walked on a treadmill at low level as part of a walking ? Lexiscan. ??She was administered 0.4 mg of Lexiscan followed by ?? radiopharmaceutical. ??She was monitored for heart rate response, blood ?? pressure response, ECG changes and arrhythmias at baseline, during infusion ? and in recovery. ? FINDINGS: ??The baseline ECG demonstrates normal sinus rhythm with a right ?? bundle branch block and nonspecific ST-T wave abnormalities. The resting ?? heart rate was 61 beats per minute. ??During infusion and low level walking, ? the heart rate lashae to 111 beats per minute. ??The blood pressure alshae to ?? 150/80 mmHg. ? During infusion, the patient complained of some mild shortness of breath. ?? She did complain of mid-substernal chest pain associated with infusion. ?? The ECG demonstrates nonspecific ST-T wave abnormalities. ??There is some ?? diffuse ST depression noted in the anterolateral leads. ? In recovery the patient's symptoms resolved. ??Recovery ECG showed some ?? nonspecific ST-T wave abnormalities with a right bundle branch block. ?? There were no significant arrhythmias during infusion or in recovery. ? CONCLUSION: ?? 1. ??Clinically negative and electrocardiographically positive portion of ?? Lexiscan stress test. ? 2. ??Scintigraphic images to be reported separately. ? Electronically Signed by ?? Josep Mckeon MD 08/04/2018 09:05 A ?? JULIAN/derek ?? 08/03/201807:30 P ?? 08/04/2018 07:52 A ?? Job No: ??[id number] ??Doc No: ??[id number] ?? cc: ?Josep Mckeon MD ? Procedure Note Josep Mckeon MD - 08/04/2018 ROXANA RITCHIE MD: JOSEP MCKEON MD Acct: [id number] Admit/Service Date: 08/03/18 Discharge Date: : 1935 Pt Type: REG CLI Sex: F Ord Site: [facility] CHART DOCUMENT DATE: 08/03/2018 ORDER #: [id number] STRESS TEST ECG PORTION OF LEXISCAN STRESS TEST INDICATION: Chest pain. PROCEDURE: Patient walked on a treadmill at low level as part of awalking Lexiscan. She was administered 0.4 mg of Lexiscan followed by radiopharmaceutical. She was monitored for heart rate response, blood pressure response, ECG changes and arrhythmias at baseline, duringinfusion and in recovery. FINDINGS: The baseline ECG demonstrates normal sinus rhythm with a right bundle branch block and nonspecific ST-T wave abnormalities. The resting heart rate was 61 beats per minute. During infusion and low levelwalking, the heart rate lashae to 111 beats per minute. The blood pressure lashae to 150/80 mmHg. During infusion, the patient complained of some mild shortness of breath. She did complain of mid-substernal chest pain associated with infusion. The ECG demonstrates nonspecific ST-T wave abnormalities. There is some diffuse ST depression noted in the anterolateral leads. In recovery the patient's symptoms resolved. Recovery ECG showed some nonspecific ST-T wave abnormalities with a right bundle branch block. There were no significant arrhythmias during infusion or in recovery. CONCLUSION: 1. Clinically negative and electrocardiographically positive portion of Lexiscan stress test. 2. Scintigraphic images to be reported separately. Electronically Signed by Josep Mckeon MD 08/04/2018 09:05 A JULIAN/derek 08/03/201807:30 P 08/04/2018 07:52 A Job No: [id number] Doc No: [id number] cc: Josep Mckeon MD Josep Mckeon MD [facility] Final Result Performing Organization Address City/State/[facility] de Phone Number [facility] ([facility]) [facility] documented in this encounter Visit Diagnoses Not on filedocumented in this encounter Care Teams Director Of Field Service Relationship Specialty Start Date End Date Martha Ruiz NP [address] [facility] [address] [place] [address] PCP - General NURSE PRACTITIONER 07/04/18 08/22/18 Josep Mckeon MD [address] [facility] [address] [place] [address] [facility] Team Lead CARDIOVASCULAR DISEASE 07/04/18 documented as of this encounter
--- OUTSIDE RECORDS SUMMARY | 2024-04-05 00:24 | XMS_ITS | Encounter Summary ---
Author Organization [facility] Address [address] [place] [address]. [place] [address] [place] [address] Care Team Providers Care Contact Center Consultant Name Role Phone Joni Mckeon MD Unavailable [phone] Martha Ruiz NP Primary Care Provider Andrés pederson Encounter Details Date Type Department Care Team (Late st Contact Info) Description 07/06/2018 Abstract [facility] [address] [place] [address] Joni Mckeon MD Three [address] [address] Social History Tobacco Use Types [...] as of this encounter Visit Diagnoses Diagnosis Pathological fracture, other site, initial encounter for fracture documented in this encounter Care Teams Contact Center Consultant Relationship Specialty Start Date End Date Martha Ruiz NP Three [facility]. [address] [address] PCP - General NURSE PRACTITIONER 07/04/18 08/22/18 Joni Mckeon MD Three [facility]. [address] [address] [place] CARDIOVASCULAR DISEASE 07/04/18 documented as of this encounter
--- OUTSIDE RECORDS SUMMARY | 2024-04-05 00:24 | XMS_ITS | Encounter Summary ---
Author Organization [facility] Address [address] [place] [address]. [place] [address] [place] [address] Care Team Providers Care Merchandise Supervisor Name Role Phone Joni Mckeon MD Unavailable [phone] Martha Ruiz NP Primary Care Provider Noemi Gracia MD Primary Care Provider [phone] Reason for Visit * Reason Comments ECG (SCAN) Encounter Details Date Type Department Care Team (Late st Contact Info) Description 08/03/2018 Scan [facility] [address] [place] [address] Scanned, Documents ECG (SCAN) Social History Tobacco Use Types Packs/Day Years [...] on file Sexual Orientation Not on file COVID-19 Exposure Response Date Recorded In the last month, have you been in contact with someone who was confirmed or suspected to have Coronavirus / COVID-19? No / Unsure 04/12/2020 12:29 PM FINISH ROLLS OPERATOR documented as of this encounter Functional Status documented as of this encounter Mental Status * Question Answer Entry Date Author Status Because of a physical, mental, or emotional condition, do you have serious difficulty concentrating, remembering, or making decisions? No 08/16/2019 11:28 AM CDT Laila Lujan RN Active documented in this encounter Plan of Treatment Not on file documented as of this encounter Goals Goal Patient Goal Type Associated Problems Recent Progress Patient-Stated? Author Improve Home Support System General No Laura Cheatham, RN Return home with [facility] home health General No Malgorzata Brown, AGENCY DEVELOPMENT MANAGER HOME WITH DAUGHTER General No Laura Cheatham RN documented as of this encounter Procedures Procedure Name Priority Date/Time Associated Diagnosis Comments ECG GENERIC (SCAN ORDER) Routine 08/03/2018 documented in this encounter Results * ECG (08/03/2018) us Documents Scanned SCANNING Final Result Performing Organization Address City/State/[facility] Co de Phone Number [address] [address] documented in this encounter Visit Diagnoses Not on filedocumented in this encounter Additional Health Concerns Infection Onset Date Last Indicated Resolved Time COVID-19 Rule Out 02/12/2020 02/12/2020 02/13/2020 8:51 AM FINISH ROLLS OPERATOR documented as of this encounter Care Teams Merchandise Supervisor Relationship Specialty Start Date End Date Martha Ruiz NP [address] [address] PCP - General NURSE PRACTITIONER 07/04/18 08/22/18 Noemi Barnard MD [address] [address] PCP - General INTERNAL MEDICINE 08/23/18 03/03/23 Joni Mckeon MD [address] [address] [place] Foreign Collection Clerk CARDIOVASCULAR DISEASE 07/04/18 documented as of this encounter
--- OUTSIDE RECORDS SUMMARY | 2024-04-05 00:24 | XMS_ITS | Encounter Summary ---
Author Organization [facility] Address [facility] [place] [address] [place] [address] Care Team Providers Care Reclamation Supervisor Name Role Phone Josep Mckeon MD Unavailable [phone] Martha Parker NP Primary Care Provider Andrés pederson Reason for Referral * Imaging (Routine) - Closed Specialty Diagnoses / Procedures Referred By Contac t Referred To Contact RADIOLOGY Diagnoses Abnormal stress test SOB (shortness of breath) Benign essential HTN Procedures [facility] Josep Mckeon MD [facility]. [address] [address] Phone: tel: fax: [place] [address] Phone: tel: Referral ID Status Reason Start Date Expiration Date Visits Re quested Visits Authorized [id number] Closed 08/18/2018 09/25/2018 1 1 Encounter Details Date Type Department Care Team (Late st Contact Info) Description 08/18/2018 Orders Only [facility] at [facility], [address] [address] Josep Mckeon MD [facility]. [address] [address] Social History Tobacco Use Types [...] as of this encounter Results * XA [facility] (08/25/2018 12:00 PM CDT) Anatomical Region Laterality Modality Cardiac Turner Machine Operator Narrative 08/30/2018 3:27 PM CDT Diagnostic Cardiac Catheterization Report Cardiac Catheterization / Electrophysiology Laboratory Patient Information Patient: ROXANA RITCHIE Medical Records Number: [id number] [address]: [address] [place] [address]: [place] ?? State: [place] Zip: [address] Date of : 1935 ?? Gender: Female Event Identifiers Date of Procedure: 08/25/2018 Catheterization Number: [id number] Attending MD: JOSEP MCKEON MD Referring MD: [...] the wire was in position a 5/6 Turkish sheath was advanced over this wire and [...] ?? DATE TRANSCRIBED: ??08/30/18 Josep Mckeon MD ROTOR COIL TAPER Final Result * PROTHROMBIN TIME, VENOUS (08/25/2018 9:03 AM CDT) PROTIME 11.6 9.6 - 12.2 SEC 08/25/2018 10:11 AM CDT [facility] INR 1.0 08/25/2018 10:11 AM CDT [facility] Comment: Recommended INR Therapeutic Goals: ??2.0-3.0 Routine Therapy ??2.5-3.5 Mechanical Prosthetic Valves (High Risk) ??3.0-4.0 Acute PA (to prevent Systemic Embolism) The INR is used only for patients on stable oral anticoagulant therapy. It makes no significant contribution to the diagnosis or treatment of patients whose Protime is prolonged for other reasons. 08/25/2018 9:03 AM CDT Josep Mckeon MD LABORATORY Final Result [facility] [address] [address], [place] [phone] * (ABNORMAL) CBC W/DIFF AUTOMATED (08/25/2018 9:03 AM CDT) WBC 4.1(L) 4.5 - 11.0 x10'3/uL 08/25/2018 9:53 AM CDT [facility] RBC 5.04 4.20 - 5.40 x10'6/uL 08/25/2018 9:53 AM CDT [facility] HGB 13.6 12.0 - 16.0 G/DL 08/25/2018 9:53 AM CDT [facility] HCT 42.6 38.0 - 48.0 % 08/25/2018 9:53 AM CDT [facility] MCV 84.5 80.0 - 94.0 FL 08/25/2018 9:53 AM CDT [facility] MCH 27.0 27.0 - 31.0 PG 08/25/2018 9:53 AM CDT [facility] MCHC 31.9(L) 32.0 - 36.0 G/DL 08/25/2018 9:53 AM CDT [facility] RDW 14.3 11.5 - 14.5 % 08/25/2018 9:53 AM CDT [facility] PLT 222 130 - 400 x10'3/uL 08/25/2018 9:53 AM T [facility] MPV 10.1 9.3 - 12.2 FL 08/25/2018 9:53 AM T [facility] DIFFERENTIAL TYPE AUTOMATED DIFFERENTIAL 08/25/2018 9:53 AM T [facility] NEUTROPHILS % 71.4 % 08/25/2018 9:53 AM T [facility] LYMPHOCYTES % 17.5 % 08/25/2018 9:53 AM CDT [facility] MONOCYTES % 8.1 % 08/25/2018 9:53 AM T [facility] EOSINOPHILS 2.0 % 08/25/2018 9:53 AM T [facility] BASOPHILS 0.5 % 08/25/2018 9:53 AM CDT [facility] IMMATURE GRANS % 0.5 % 08/26/19 19 9:53 AM T [facility] ABS. NEUTROPHILS TOTAL 2.89 1.80 - 7.70 x10'3/uL 08/25/2018 9:53 AM CDT [facility] ABS. LYMPHOCYTES 0.71(L) 1.00 - 4.80 x10'3/uL 08/25/2018 9:53 AM CDT [facility] ABS. MONOCYTES 0.33 0.24 - 0.86 x10'3/uL 08/25/2018 9:53 AM CDT [facility] ABS. EOSINOPHILS 0.08 0.04 - 0.36 x10'3/uL 08/25/2018 9:53 AM CDT [facility] ABS. BASOPHILS 0.02 0.01 - 0.08 x10'3/uL 08/25/2018 9:53 AM CDT [facility] ABS. IMMATURE GRANULOCYTES 0.02 0.00 - 0.49 x10'3/uL 08/25/2018 9:53 AM CDT [facility] 08/25/2018 9:03 AM CDT Josep Mckeon MD LABORATORY Final Result [facility] [address] [place] [address], [place] [phone] * (ABNORMAL) BASIC METABOLIC PANEL (08/25/2018 9:03 AM CDT) GLUCOSE 114(H) 70 - 99 MG/DL 08/25/2018 10:08 AM CDT [facility] BUN 22(H) 7 - 18 MG/DL 08/25/2018 10:08 AM CDT [facility] CREATININE S/P/B 1.00 0.55 - 1.02 MG/DL 08/25/2018 10:08 AM CDT [facility] SODIUM S/P/B 140 136 - 145 MMOL/L 08/25/2018 10:08 AM CDT [facility] POTASSIUM S/P/B 3.7 3.5 - 5.1 MMOL/L 08/25/2018 10:08 AM CDT [facility] CHLORIDE S/P/B 107 100 - 108 MMOL/L 08/25/2018 10:08 AM CDT [facility] CO2 28.2 21 - 32 MMOL/L 08/25/2018 10:08 AM CDT [facility] CALCIUM S/P/B 9.5 8.5 - 10.1 MG/DL 08/25/2018 10:08 AM CDT [facility] ANION GAP 8.5 8 - 20 MMOL/L 08/25/2018 10:08 AM CDT [facility] BUN CREATININE RATIO 22.1 6 - 26 08/25/2018 10:08 AM CDT [facility] EGFR NON-AFR. AMER. 52(L) >90 ML/MIN/1.7 3 M2 08/25/2018 10:08 AM CDT [facility] EGFR AFR. AMER. 60(L) >90 ML/MIN/1.7 3 M2 08/25/2018 10:08 AM T [facility] Comment: NOTE: eGFR is not calculated for patients <18 years of age. This is an estimated GFR (CKD EPI) and should not be used for calculating drug doses. 08/25/2018 9:03 AM CDT Josep Mckeon MD LABORATORY Final Result [facility] [address] [place] [address], [place] [phone] documented in this encounter Visit Diagnoses Diagnosis Abnormal stress test- Primary Other nonspecific abnormal cardiovascular system function study SOB (shortness of breath) Shortness of breath Benign essential HTN Essential hypertension, benign Atypical chest pain- Primary Other chest pain Abnormal stress test Other nonspecific abnormal cardiovascular system function study SOB (shortness of breath) Shortness of breath Benign essential HTN Essential hypertension, benign documented in this encounter Care Teams Reclamation Supervisor Relationship Specialty Start Date End Date Martha Parker NP Three [facility] [address] [place] [address] PCP - General NURSE PRACTITIONER 07/04/18 08/22/18 Josep Mckeon MD Three [facility]. [address] [address] [place] Balancing Machine Set Up Worker CARDIOVASCULAR DISEASE 07/04/18 documented as of this encounter
--- OUTSIDE RECORDS SUMMARY | 2024-04-05 00:24 | XMS_ITS | Encounter Summary ---
Author Organization [facility] Address [address] [place] [address]. [place], [place] [address] [place] [address] Care Team Providers Care Combiner Operator Name Role Phone Joni Mckeon MD Unavailable [phone] Martha Ruiz NP Primary Care Provider Andrés pederson Reason for Referral * Imaging (Routine) - Closed Specialty Diagnoses / Procedures Referred By Contlucio t Referred To Contact CARDIOLOGY Diagnoses SOB (shortness of breath) Procedures USE ECHOCARDIOGRAM Joni Mckeon MD [facility]. [address] [address] Phone: tel: fax: [facility] [address] [place] [phone] Phone: tel: fax: Referral ID Status Reason Start Date Expiration Date Visits Re quested Visits Authorized [id number] Closed 07/08/2018 09/03/2018 1 1 Encounter Details Date Type Department Care Team (Late st Contact Info) Description 07/08/2018 Orders Only [facility] at [facility], [address] [address] Joni Mckeon MD [facility]. [address] [address] Social History Tobacco Use Types [...] documented as of this encounter Results * USE ECHOCARDIOGRAM (08/03/2018) Anatomical Region Laterality Modality Cardiac Echocardiogram us Joni Mckeon MD ECHO Final Result documented in this encounter Visit Diagnoses Diagnosis SOB (shortness of breath)- Primary Shortness of breath documented in this encounter Care Teams Combiner Operator Relationship Specialty Start Date End Date Martha Ruiz NP [facility]. [address] [place] [address] PCP - General NURSE PRACTITIONER 07/04/18 08/22/18 Joni Mckeon MD [facility]. [address] [place] [address] Christopher Magnetizer CARDIOVASCULAR DISEASE 07/04/18 documented as of this encounter
--- OUTSIDE RECORDS SUMMARY | 2024-04-05 00:24 | XMS_ITS | Encounter Summary ---
Author Organization [facility] Address [address] [place] [address]. [place], [place] [address] [place] [address] Care Team Providers Care Automotive Metalsmith Name Role Phone Joni Mckeon MD Unavailable [phone] Martha Ruiz PROCESS CONTROL TECH Primary Care Provider Andrés pederson Encounter Details Date Type Department Care Team (Latest Contact Info) Description 08/03/2018 Scan HEALTH INFO SRVCS Scanned, Documents Social [...] on filedocumented in this encounter Care Teams Automotive Metalsmith Relationship Specialty Start Date End Date Martha Ruiz NP Three [address] [address] PCP - General NURSE PRACTITIONER 07/04/18 08/22/18 Joni Mckeon MD Three [facility]. [facility] [address] [place], [place] [id number] Christopher Advisor Consultant CARDIOVASCULAR DISEASE 07/04/18 documented as of this encounter
--- OUTSIDE RECORDS SUMMARY | 2024-04-05 00:24 | XMS_ITS | Encounter Summary ---
Author Organization [facility] Address [address] [place] [address]. [place], [place] [address] [place] [address] Care Team Providers Care Childhood Development Teacher Name Role Phone Joni Mckeon MD Unavailable [phone] Martha Ruiz NP Primary Care Provider Andrés pederson Reason for Visit * Reason Onset Date Comments Results 07/07/2018 chest xray Encounter Details Date Type Department Care Team (Late st Contact Info) Description 07/07/2018 Telephone [facility] at [facility], [facility] [address] [place] [address] She Lan NP-C [facility]. [facility] [address] [place] [address] Results (chest xray) Social History Tobacco Use Types Packs/Day Years [...] as of this encounter Progress Notes * DAPHNE FrancoC - 07/07/2018 4:11 PM CDT I called the patient, chest xray looks ok. No acute abnormalities. documented in this encounter Plan of Treatment Not on file documented as of this encounter Visit Diagnoses Not on filedocumented in this encounter Care Teams Childhood Development Teacher Relationship Specialty Start Date End Date Martha Ruiz NP [address] [address] PCP - General NURSE PRACTITIONER 07/04/18 08/22/[address] [facility]. [address] [address] [place] White Spooler CARDIOVASCULAR DISEASE 07/04/18 documented as of this encounter
--- OUTSIDE RECORDS SUMMARY | 2024-04-05 00:24 | XMS_ITS | Encounter Summary ---
Author Organization [facility] Address [address] [place] [address]. [place] [address] [place] [address] Care Team Providers Care Education Program Coordinator Name Role Phone Joni Mckeon MD Unavailable [phone] Martha Ruiz NP Primary Care Provider Andrés pederson Encounter Details Date Type Department Care Team (Late st Contact Info) Description 07/08/2018 Abstract [facility] [address] [place] [address] Tatum Jenkins FNP [address] [place] [address] Social History Tobacco Use Types [...] Name Priority Date/Time Associated Diagnosis Comments URINALYSIS WI REFLEX TO CULTURE STAT 07/08/2018 10:05 AM CDT URINE BACTERIA CULTURE Routine 07/08/2018 10:05 AM CDT documented in this encounter Results * CULTURE URINE (07/08/2018 10:05 AM CDT) SPEC DESCRIPTION URINE CLEAN CATCH 07/08/2018 10:24 AM CDT [facility] SPECIAL REQUESTS NO SPECIAL REQUEST 07/08/2018 10:24 AM CDT [facility] CULTURE RESULT 10,000-49,000 COL/MLESCHERICHI A COLI 07/10/2018 8:37 AM CDT [facility] CULTURE RESULT POLYMICROBIAL GROWTH CONSISTENT WITH NORMAL GENITAL SAVI. ?? SUSCEPTIBILITIES NOT ROUTINELY PERFORMED. 07/10/2018 8:37 AM CDT [facility] URINE SPECIMEN OBTAINED BY CLEAN CATCH PROCEDURE / Unknown 07/08/2018 10:05 AM CDT 07/08/2018 10:24 AM CDT Narrative Organism Antibiotic Method Susceptibility Unknown AMPICILLIN FELIX (VITEK) >=32: Resistant Unknown AMIKACIN FELIX (VITEK) <=2: Sensitive Unknown AMPICILLIN/SULBACTAM FELIX (VITEK) >=32: Resistant Unknown CEFTRIAXONE FELIX (VITEK) <=1: Sensitive Unknown CEFTAZIDIME FELIX (VITEK) <=1: Sensitive Unknown CEFAZOLIN FELIX (VITEK) <=4: Sensitive Unknown ESBL FELIX (VITEK) NEG: Sensitive Unknown NITROFURANTOIN FELIX (VITEK) <=16: Sensitive Unknown GENTAMICIN FELIX (VITEK) >=16: Resistant Unknown LEVOFLOXACIN FELIX (VITEK) >=8: Resistant Unknown PIPRACIL/TAZO FELIX (VITEK) <=4: Sensitive Unknown TRIMETH-SULFAMETH. FELIX (VITEK) <=20: Sensitive Unknown TOBRAMYCIN FELIX (VITEK) 8: Intermediate Comment: Organism code(s) sent by the ancillary, '10,000-49,000 COL/MLESCHERICHIA COLI', not recognized. Organism 'UNKNOWN' was substituted in its place. us Generic Conversion Md BERMUDEZ MICROBIOLOGY - GENERAL ORDERABLES Final Result [facility] [address] [place] [address], [place] [phone] [facility] () [facility] [address] [place] [address], [place] [phone] * (ABNORMAL) URINALYSIS WI REFLEX TO CULTURE (07/08/2018 10:05 AM CDT) COLOR (U) YELLOW 07/08/2018 10:22 AM T [facility] ORDERS INTERFACE TRANSPARENCY HAZY 07/08/2018 10:22 AM T [facility] ORDERS INTERFACE SPECIFIC GRAVITY (U) 1.015 1.000 - 1.030 07/08/2018 10:22 AM T [facility] ORDERS INTERFACE U PH 6.0 5.0 - 9.0 07/08/2018 10:22 AM T [facility] ORDERS INTERFACE LEUKOCYTES (U) 1+(A) NEGATIVE 07/08/2018 10:22 AM CDT [facility] ORDERS INTERFACE NITRITES NEGATIVE NEGATIVE 07/08/2018 10:22 AM T [facility] ORDERS INTERFACE PROTEIN (U) NEGATIVE NEGATIVE 07/08/2018 10:22 AM T [facility] ORDERS INTERFACE URINE GLUCOSE NEGATIVE NEGATIVE 07/08/2018 10:22 AM T [facility] ORDERS INTERFACE KETONES MG/DL (U) NEGATIVE NEGATIVE 07/08/2018 10:22 AM T [facility] ORDERS INTERFACE BILIRUBIN (U) NEGATIVE NEGATIVE 07/08/2018 10:22 AM T [facility] ORDERS INTERFACE BLOOD (U) NEGATIVE NEGATIVE 07/08/2018 10:22 AM T [facility] ORDERS INTERFACE WBC/HPF 5-10 0 - 5 /HPF 07/08/2018 10:22 AM CDT [facility] ORDERS INTERFACE RBC/HPF NONE SEEN 0 - 5 /HPF 07/08/2018 10:22 AM CDT [facility] ORDERS INTERFACE EPI/HPF MANY /HPF 07/08/2018 10:22 AM T [facility] ORDERS INTERFACE CULTURE & SENSITIVITY INDICATED? SPECIMEN SETUP FOR CULTURE 07/08/2018 10:22 AM T [facility] ORDERS INTERFACE BACTERIA (U) FEW /HPF 07/08/2018 10:22 AM T [facility] ORDERS INTERFACE 07/08/2018 10:0 5 AM CDT 07/08/2018 10:09 AM CDT us Generic Conversion Md BERMUDEZ URINE ORDERABLES Final Result [facility] ORDERS INTERFACE US documented in this encounter Visit Diagnoses Diagnosis Constipation Unspecified constipation documented in this encounter Care Teams Education Program Coordinator Relationship Specialty Start Date End Date Martha Ruiz NP [address] [address] PCP - General NURSE PRACTITIONER 07/04/18 08/22/18 Joni Mckeon MD [address] [address] [place] Heel Sewer CARDIOVASCULAR DISEASE 07/04/18 documented as of this encounter
--- OUTSIDE RECORDS SUMMARY | 2024-04-05 00:24 | XMS_ITS | Encounter Summary ---
Author Organization [facility] Address [address] [place] [address]. [place] [address] [place] [address] Care Team Providers Care Brush Trimming Machine Setter Name Role Phone Joni Mckeon MD Unavailable [phone] Noemi Barnard MD Primary Care Provider [phone] Reason for Visit * Reason Onset Date Comments Medication Request 08/25/2018 Tramadol Encounter Details Date Type Department Care Team (Late st Contact Info) Description 08/25/2018 Telephone [facility] at [facility], [address] [address] Joni Mckeon MD [facility]. [address] [id number] Medication Request (Tramadol) Social History Tobacco Use Types Packs/Day Years [...] of this encounter Progress Notes * Nolvia Guzmán CMA - 08/25/2018 4:[address] Mckeon, Tramadol 50 mg 1 tablet every 8 hours as needed #10 no refills. Prescription given to the patient. documented in this encounter Plan of Treatment Not on file documented as of this encounter Visit Diagnoses Not on filedocumented in this encounter Care Teams Brush Trimming Machine Setter Relationship Specialty Start Date End Date Noemi Barnard MD Three [facility]. [address] [address] PCP - General INTERNAL MEDICINE 08/23/18 03/03/23 Joni Mckeon MD Three [facility]. [address] [address] Christopher Powerhouse Helper CARDIOVASCULAR DISEASE 07/04/18 documented as of this encounter
--- OUTSIDE RECORDS SUMMARY | 2024-04-05 00:24 | XMS_ITS | Encounter Summary ---
Author Organization [facility] Address [address] [place] [address]. [place], [place] [address] [place] [address] Care Team Providers Care Head Boys Golf Coach Name Role Phone Joni Mckeon MD Unavailable [phone] Martha Ruiz NP Primary Care Provider Noemi Gracia MD Primary Care Provider [phone] Reason for Visit * Reason Comments Image (SCAN) Encounter Details Date Type Department Care Team (Latest Contact Info) Description 07/08/2018 Scan HEALTH INFO SRVCS Scanned, Documents Image (SCAN) Social History Tobacco Use Types Packs/Day [...] No Laura Cheatham, RN Return home with [facility] home health General No Malgorzata Brown, TRANSPORT TECH HOME WITH DAUGHTER General No Laura Cheatham RN documented as of this encounter Procedures Procedure Name Priority Date/Time Associated Diagnosis Comments IMAGE GENERIC 07/08/2018 documented in this encounter Results * IMAGE GENERIC (07/08/2018) Anatomical Region Laterality Modality Other 07/08/2018 Narrative 07/08/2018 Ordered by an unspecified provider. us Documents Scanned SCANNING Final Result documented in this encounter Visit Diagnoses Not on filedocumented in this encounter Care Teams Head Boys Golf Coach Relationship Specialty Start Date End Date Martha Ruiz, MIKE [facility]. [address] [address] PCP - General NURSE PRACTITIONER 07/04/18 08/22/18 Noemi Barnard MD [facility]. [address] [place] [address] PCP - General INTERNAL MEDICINE 08/23/18 03/03/23 Joni Mckeon MD [facility]. [address] [place] [address] Christopher Professor Of Art History CARDIOVASCULAR DISEASE 07/04/18 documented as of this encounter
--- OUTSIDE RECORDS SUMMARY | 2024-04-05 00:24 | XMS_ITS | Encounter Summary ---
Author Organization [facility] Address [address] [place] [address]. [place] [address] [place] [address] Care Team Providers Care Client Care Representative Name Role Phone Joni Mckeon MD Unavailable [phone] Martha Parker NP Primary Care Provider Andrés pederson Reason for Visit * Reason Comments Shortness Of Breath f/u testing Encounter Details Date Type Department Care Team (Late st Contact Info) Description 08/17/2018 1:15 PM CDT Office Visit [facility] [address] [place] [address] Joni Mckeon MD [address] [address] Shortness Of Breath (f/u testing) Social History Tobacco Use Types Packs/Day Years [...] Sign Reading Time Taken Comments Blood Pressure 170/70 08/17/2018 12:49 PM CDT Pulse 60 08/17/2018 12:49 PM CDT Temperature - - Respiratory Rate - - Oxygen Saturation - - Inhaled Oxygen Concentration - - Weight 59 kg (130 lb) 08/17/2018 12:49 PM CDT Height 157.5 cm (5' 2 ) 08/17/2018 12:49 PM CDT Body Mass Index 23.78 08/17/2018 12:49 PM CDT documented in this encounter Patient Instructions * Patient Instructions* Devika Zeng - 08/17/2018 1:15 PM CDT Patient Education Patient Education Shortness of Breath (Dyspnea) The Basics Written by the doctors and editors at [facility] What is shortness of breath???--??People who have shortness of breath describe it in different ways. Some people say that they feel like they can't take a deep breath in or get enough air. Other people might feel like their chest is tight or they have to work harder than usual to breathe. The medical word for shortness of breath is dyspnea. Shortness of breath can start suddenly, over minutes to hours. It can also happen over a longer period of time, from weeks to months. What causes shortness of breath???--??Different medical conditions can cause shortness of breath. The most common causes of shortness of breath that starts suddenly are: ?? Lung problems, such as asthma, infections, or blood clots - These conditions might cause other symptoms, too. For example, a lung infection usually causes a fever and cough. ?? Heart problems, such as a heart attack or heart failure - A heart attack can also cause chest pain or pressure. Heart failure is when the heart does not pump as well as it should. ?? A severe allergic reaction, called anaphylaxis - This can also cause itching, swelling, or a rash. ?? - It can be normal for women to feel slightly short of breath just after theylie down or are active. The most common causes of shortness of breath that happens over weeks to months are: ?? Lung problems, such as asthma or chronic obstructive pulmonary disease (COPD) - Both of these conditions can make it hard to breathe. COPD is usually caused by smoking. ?? Heart problems, such as heart failure or a change in the size and shape of the heart (called cardiomyopathy) ?? Being overweight or out of shape Should I see a doctor or nurse???--??Yes. If you have shortness of breath, you should see your doctor or nurse. Sometimes shortness of breath means that your condition is serious and you need emergency help. Call for an ambulance (in the [place] and [place], dial 9-1-1) if you have: ?? Shortness of breath and think you are having a heart attack ?? Severe shortness of breath (hard to breathe when you are sitting still) ?? An allergic reaction with shortness of breath Will I have tests???--??You might. Your doctor or nurse will talk with you, ask about your symptoms, and do an exam. Depending on what the doctor or nurse finds, he or she might order 1 or more of the following tests: ?? Blood tests ?? A chest X-ray ?? An electrocardiogram (ECG) to measure the electrical activity in your heart ?? A breathing test Depending on your results, you might need more tests, too. How is shortness of breath treated???--??Shortness of breath is treated in different ways, depending on the cause. Once your doctor or nurse figures out the cause of your symptoms, he or she will talk with you about different possible treatments. All topics are updated as new evidence becomes available and our peer review process is complete. This topic retrieved from [employer] on: Apr 12, 2018. Topic 11783 Version 7.0 Release: 26.5.5 - C27.6 ?2019??[employer] and/or its affiliates.??All rights reserved. Consumer Information Use and Disclaimer This information [...] that is right for you.The use of [employer] content is governed by the [employer] Terms of Use. ??2019 [employer]. All rights reserved. Copyright ?2019??[employer] and/or its affiliates.??All rights reserved. documented in this encounter Progress Notes * Joni Mckeon MD - 08/17/2018 5:21 PM CDT * Joni Mckeon MD - 08/17/2018 1:15 PM CDT REASON FOR FOLLOWUP: Recommendations, evaluation and management of a patient complaining of shortness of breath, exertional dyspnea, abnormal stress test. HISTORY OF PRESENT ILLNESS: This is an 83-year-old woman who was evaluated by me approximately 1 month ago. The patient has at time had difficulties with severe limiting dyspnea. She has a known history of carotid artery stenosis. She had a Lexiscan stress test which demonstrated some questionable artifact versus a possible defect in the apical wall. The patient had an echocardiogram which demonstrated mild tricuspid regurgitation. She had normal pulmonary pressures. The patient underwent a carotid duplex and was found to have approximately 50- 69% stenosis on the left and a 50% stenosis on the right. A chest x-ray from July demonstrated elevated right hemidiaphragm. Patient has had no difficulties with wheezing. She has had no difficulty with increasing lower extremity edema. IMPRESSION AND RECOMMENDATIONS: 1. Shortness of breath. - Ms. Ch is quite limited at this point. She notes with minimal amounts of exertion she has to stop and rest. She does have a history of hyperlipidemia and hypertension as well as diabetes. The stress test showed some mild abnormalities. I discussed these findings withthe patient. At this point, given that she is quite limited and she has subtle abnormalities on the stress test,she should undergo left heart catheterization. I discussed with her the risks, benefits, and alternatives of left heart catheterization. I would plan to schedule this in the next few weeks. I discussed with her that if she has any significant stenosis she may need a PCI or possible coronary bypass surgery, which I think she understands. If this is unremarkable, then would recommend a pulmonary evaluation. Medications: Current Outpatient Medications: ??? AMLODIPINE-BENAZEPRIL 5-20 [...] systems reviewed and are negative. Filed Vitals: 08/17/18 1249 BP: 170/70 Pulse: 60 Weight: 59 kg (130 lb) Height: 5' [...] oropharynx clear and moist. . Abdomen: no tenderness. . Eyes: conjunctivae normal. Neurological: alert, oriented x 3 and appropriate for situation, . Skin: dry and warm no cyanosis and no clubbing. Musculoskeletal: no kyphosis Cardiovascular Comments: Diagnoses/Impression: No diagnosis found. Referring Provider: No ref. provider found PCP: MARTHA PARKER NP documented in this encounter Plan of Treatment Not on file documented as of this encounter Visit Diagnoses Diagnosis SOB (shortness of breath)- Primary Shortness of breath Mixed hyperlipidemia Essential hypertension Unspecified essential hypertension documented in this encounter Care Teams Client Care Representative Relationship Specialty Start Date End Date Martha Parker NP [address] [address] PCP - General NURSE PRACTITIONER 07/04/18 08/22/18 Joni Mckeon MD [facility]. [address] [address] [place] Man CARDIOVASCULAR DISEASE 07/04/18 documented as of this encounter
--- OUTSIDE RECORDS SUMMARY | 2024-04-05 00:24 | XMS_ITS | Encounter Summary ---
Author Organization [facility] Address [address] [place] [address]. [place] [address] [place] [address] Care Team Providers Care Support Staff Name Role Phone Josep Mckeon MD Unavailable [phone] Martha Ruiz NP Primary Care Provider Andrés pederson Encounter Details Date Type Department Care Team (Late st Contact Info) Description 07/06/2018 Orders Only [facility] [address] [place] [address] Josep Mckeon MD [facility]. [address] [address] Social History Tobacco Use Types [...] Priority Date/Time Associated Diagnosis Comments XR CHEST PA+LAT 07/06/2018 3:40 PM CDT documented in this encounter Results * XR CHEST PA+LAT (07/06/2018 3:40 PM CDT) Anatomical Region Laterality Modality Chest Radiographic Lacy ging 07/06/2018 3:40 PM CDT Narrative 07/06/2018 12:00 AM CDT ROXANA RITCHIE ? Admit/Service Date: 07/06/18 ?? Acct: [id number] ?Discharge Date: ?? : 1935 ??Sex: F ?Ord Site: [facility] ?? Pt Type: REG CLI ? Ordering MD: JOSEP MCKEON MD ? Study Date ? Report # ?Order # ? Ext Order ID ?? 07/06/18 ? [id number] ? [id number] ?[id number] ? Proc Code: ? CXR2V ? Procedure Description: ?? XR Chest 2 View ? IMAGING STUDIES: ??XR CHEST 2 VIEW ?DATE: ?? 07/06/2018 3:03 PM ? HISTORY: ??OTHER - SOB ?82-year-old female with shortness of breath for 2 months. Nonsmoker. ? COMPARISON: ??CT abdomen pelvis with contrast 11/21/2017. Abdominal obstruction series including chest x-ray 03/17/2017. ? DISCUSSION / IMPRESSION: ?? Upright PA and lateral views. ? Heart size and pulmonary vessels within normal limits. ? Chronic elevation right diaphragm. ? No acute infiltrate, consolidation, effusion, or pneumothorax. ? Mild air distention of small bowel with a few air-fluid levels. ? Degenerative changes spine. 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 ? Procedure Note Rhianna Abreu MD - 07/06/2018 ROXANA RITCHIE Admit/Service Date:07/06/18 Acct: [id number] Discharge Date: : 1935 Sex: F Ord Site: [facility] Pt Type: REG CLI Ordering MD:JOSEP MCKEON MD Study Date Report # Order # Ext Order ID 07/06/18 [id number] Proc Code: CXR2V Procedure Description: XR Chest 2 View IMAGING STUDIES: XR CHEST 2 VIEWDATE: 07/06/2018 3:03 PM HISTORY: OTHER - SOB 82-year-old female with shortness of breath for2 months. Nonsmoker. COMPARISON: CT abdomen pelvis with contrast 11/21/2017. Abdominalobstruction series including chest x-ray 03/17/2017. DISCUSSION / IMPRESSION: Upright PA and lateral views. Heart size and pulmonary vessels within normal limits. Chronic elevation right diaphragm. No acute infiltrate, consolidation, effusion, or pneumothorax. Mild air distention of small bowel with a few air-fluid levels. Degenerative changes spine. Chronic severe biconcave fracture of the F8xejgrrrxx body as also demonstrated on 11/21/2017 CT study. Josep Mckeon MD GENERAL IMAGING Final Result documented in this encounter Visit Diagnoses Not on filedocumented in this encounter Care Teams Support Staff Relationship Specialty Start Date End Date Martha Ruiz NP [facility]. [address] [place] [address] PCP - General NURSE PRACTITIONER 07/04/18 08/22/18 Josep Mckeon MD [facility] [address] [place] [address] [employer] Equipment Detailer CARDIOVASCULAR DISEASE 07/04/18 documented as of this encounter
--- OUTSIDE RECORDS SUMMARY | 2024-04-05 00:24 | XMS_ITS | Encounter Summary ---
Author Organization [facility] Address [address] [place] [address]. [place], [place] [address] [place] [address] Care Team Providers Care Motor Scooter Mechanic Name Role Phone Joni Mckeon MD Unavailable [phone] Martha Ruiz NP Primary Care Provider Andrés pederson Reason for Visit * Reason Onset Date Comments Results 08/09/2018 stress and echo Encounter Details Date Type Department Care Team (Late st Contact Info) Description 08/09/[address] [facility] [place] [address] She Lan NP-C [facility]. [facility] [address] [place] [address] Results (stress and echo ) Social History Tobacco Use Types Packs/Day [...] as of this encounter Progress Notes * INDRA Franco - 08/09/2018 10:32 AM CDT I called the patient, echo looks good, normal EF. No signfiicant abnormalities. Stress test with ECG changes, no ischemia on nuclear images. Please schedule patient f/u in [place] to discuss, she was very confused by her results. documented in this encounter Plan of Treatment Not on file documented as of this encounter Visit Diagnoses Not on filedocumented in this encounter Care Teams Motor Scooter Mechanic Relationship Specialty Start Date End Date Martha Ruiz NP [facility]. [address] [address] PCP - General NURSE PRACTITIONER 07/04/18 08/22/18 Joni Mckeon MD [facility]. [address] [address] [place] Apprenticeship Training Representative CARDIOVASCULAR DISEASE 07/04/18 documented as of this encounter
--- OUTSIDE RECORDS SUMMARY | 2024-04-05 00:24 | XMS_ITS | Encounter Summary ---
Author Organization [facility] Address [facility] [place] [address] [place] [address] Care Team Providers Care Paving Crew Foreman Name Role Phone Joni Mckeon MD Unavailable [phone] Noemi Barnard MD Primary Care Provider [phone] Sandra Johnson RN Unavailable [phone] None, Provider MD Primary Care Provider Unavaila ble Encounter Details Date Type Department Care Team (Late st Contact Info) Description 08/24/2018 Hospital Orders Only [facility] Adult Basic Education Manager [place] [id number] Joni Mckeon MD Three [facility]. [address] [place], [place] [id number] Social History Tobacco Use Types Packs/Day Years [...] Rule Out 02/12/2020 02/12/2020 02/13/2020 8:51 AM HAND ALTERATIONS TAILOR COVID-19 Rule Out 04/16/2020 04/16/2020 04/17/2020 6:26 PM HAND ALTERATIONS TAILOR COVID-19 Rule Out 05/14/2021 05/14/2021 05/14/2021 11:02 AM HAND ALTERATIONS TAILOR documented as of this encounter Care Teams Paving Crew Foreman Relationship Specialty Start Date End Date Noemi Barnard MD [facility]. [facility] [address] [place] [address] PCP - General INTERNAL MEDICINE 08/23/18 03/03/23 None, Provider, PCP - General UNKNOWN PHYSICIAN SPECIALTY 03/04/23 Joni Mckeon MD [facility]. [facility] [address] [place] [address] [place] Date Pitter CARDIOVASCULAR DISEASE 07/04/18 Sandra Johnson, RN [address] [place] [address] Supervisor Instant Potato Processing (Ambulatory) REGISTERED NURSE 05/12/21 06/29/21 documented as of this encounter
--- OUTSIDE RECORDS SUMMARY | 2024-04-05 00:24 | XMS_ITS | Encounter Summary ---
Author Organization [facility] Address [address] [place] [address]. [place] [address] [place] [address] Care Team Providers Care Foil Stamp Operator Name Role Phone Joni Mckeon MD Unavailable [phone] Martha Ruiz NP Primary Care Provider Andrés pederson Encounter Details Date Type Department Care Team (Late st Contact Info) Description 08/03/2018 Orders Only [facility] at [address] [id number] Joni Mckeon MD [facility]. [address] [address] Social History Tobacco Use Types [...] Procedure Name Priority Date/Time Associated Diagnosis Comments USE ECHOCARDIOGRAM Routine 08/03/2018 SOB (shortness of breath) documented in this encounter Results * USE ECHOCARDIOGRAM (08/03/2018) Anatomical Region Laterality Modality Cardiac Echocardiogram us Joni Mckeon MD ECHO Final Result documented in this encounter Visit Diagnoses Diagnosis SOB (shortness of breath) Shortness of breath documented in this encounter Care Teams Foil Stamp Operator Relationship Specialty Start Date End Date Martha Ruiz DIFFUSION OPERATOR [facility]. [address] [address] PCP - General NURSE PRACTITIONER 07/04/18 08/22/18 Joni Mckeon MD Three [facility]. [facility] [address] [place] [address] Christopher Maintenance Supervisor Electrical CARDIOVASCULAR DISEASE 07/04/18 documented as of this encounter
--- OUTSIDE RECORDS SUMMARY | 2024-04-05 00:25 | XMS_ITS | Encounter Summary ---
Author Organization [facility] Address [address] [place] [address]. [place], [place] [address] [place] [address] Care Team Providers Care Lead Pharmacy Technician Name Role Phone Noemi Barnard MD Primary Care Provider Encounter Details Date Type Department Care Team (Latest Contact Info) Description 06/21/2018 Scan HEALTH INFO SRVCS Scanned, Documents Social History Tobacco Use Types Packs/Day Years Used Date Smoking Tobacco: Never Smokeless Tobacco: Never Alcohol Use Standard Drinks/Week Comments No 0 (1 standard drink = 0.6 oz pur e alcohol) AUDIT-C Answer Date Recorded Frequency of Alcohol Consumption Never 02/22/2018 Average Number of Drinks Not on file 018 Frequency of Binge Drinking Not on file 02/04 Comments No Sex and Gender Information Value Date Recorded Sex Assigned at Not on file Legal Sex Female 8:14 PM CDT Gender Identity Not on file Sexual Orientation Not on file documented as of this encounter Plan of Treatment Not on file documented as of this encounter Visit Diagnoses Not on filedocumented in this encounter Care Teams Lead Pharmacy Technician Relationship Specialty Start Date End Date Noemi Barnard MD PCP - General INTERNAL MEDICINE 02/22/18 07/03/18 documented as of this encounter
--- OUTSIDE RECORDS SUMMARY | 2024-04-05 00:25 | XMS_ITS | Encounter Summary ---
Author Organization [facility] Address [address] [place] [address]. [place], [place] [address] [place] [address] Care Team Providers Care Annual Giving Manager Name Role Phone Noemi Barnard MD Primary Care Provider [phone] Reason for Visit * Reason Onset Date Comments UTI 03/03/2018 Encounter Details Date Type Department Care Team (Late st Contact Info) Description 03/03/2018 Telephone [facility] Family & Internal Medicine [facility] [address] [place] [address] [place] [id number] [place] [address] UTI Social History Tobacco Use Types Packs/Day [...] of this encounter Progress Notes * Lianna Rousseau MA - 03/03/2018 9:09 AM CST Sent in Levofloxacin 250mg x [address] Franklin. Notified patient RMINATION SUPERVISOR * Lianna Rousseau MA - 03/03/2018 9:09 AM CSTAddended by: LIANNA ROUSSEAU on: 03/03/2018 09:09 AM Modules accepted: Orders RMINATION SUPERVISOR * Jane Young LPN - 03/03/2018 7:57 AM CST Patient called states that she awoke this morning with pain and burning with urination. Urinating frequently. [facility] in [place]. [phone] is a good number. RMINATION SUPERVISOR documented in this encounter Plan of Treatment Not on file documented as of this encounter Visit Diagnoses Diagnosis UTI (urinary tract infection)- Primary Urinary tract infection, site not specified documented in this encounter Care Teams Annual Giving Manager Relationship Specialty Start Date End Date Noemi Barnard MD PCP - General INTERNAL MEDICINE 02/22/18 07/03/18 documented as of this encounter
--- OUTSIDE RECORDS SUMMARY | 2024-04-05 00:25 | XMS_ITS | Encounter Summary ---
Author Organization [facility] Address [address] [place] [address]. [place], [place] [address] [place] [address] Care Team Providers Care Lotteries Agent Name Role Phone Noemi Jade MD Primary Care Provider Encounter Details Date Type Department Care Team (Late st Contact Info) Description 06/21/2018 Orders Only [facility] Family & Internal Medicine - [place] [phone] [place] [address] [place] [id number] [place] [address] Social History Tobacco Use Types Packs/Day [...] Progress Notes * Melanie Chavez RN - 06/28/2018 9:42 AM CDT Attempted to contact pt- lmtcb * Noemi Jade MD - 06/24/2018 6:51 PM CDT Please contact patient with results. L mod narrowing with a lot of plaque, R only mid narrowing. documented in this encounter Plan of Treatment Not on file documented as of this encounter Procedures Procedure Name Priority Date/Time Associated Diagnosis Comments USV CAROTID DUPLEX KARLA 06/21/2018 2:42 PM CDT documented in this encounter Results * USV CAROTID DUPLEX KARLA (06/21/2018 2:42 PM CDT) Anatomical Region Laterality Modality Neck Vascular Ultraso und 06/21/2018 2:42 PM CDT Narrative 06/21/2018 12:00 AM CDT RITCHIEROXANA ? ADMIT/SERVICE DATE: 06/21/18 ?? ACCT: [id number] ?DISCHARGE DATE: ?? : 1935 ??SEX: F ?ORD SITE: [facility] ?? PT TYPE: REG CLI ? ORDERING MD: NOEMI JADE MD ? STUDY DATE ? REPORT # ?ORDER # ? EXT ORDER ID ?? 06/21/18 ? [id number] ? [id number] ?[id number] ? PROC CODE: ? DUPCAROTDB ? PROCEDURE DESCRIPTION: ?? US DUPLEX CAROTID BI ? IMAGING STUDIES:US DUPLEX CAROTID BI ? DATE: 06/21/2018 12:18 PM ? INDICATION: DIZZINESS, HYPERTENSION. ? COMPARISON: 11/07/2015. ? TECHNIQUE: EXAMINATION PERFORMED BY WATER RESOURCE PROJECT MANAGER USING GRAYSCALE WITH COLOR FLOW AND SPECTRAL DOPPLER. SELECTED IMAGES SUBMITTED FOR INTERPRETATION. WORKSHEET COMPLETED. ? IMPRESSION: ? RIGHT CAROTID BIFURCATION: ? PEAK SYSTOLIC VELOCITIES (CM/S) CCA ??86.3, ICA ??98.1/19.3, ECA ??95, ICA/CCA ??1.14. ?? MINIMAL PLAQUE. ??THERE IS NO EVIDENCE TO SUGGEST THE PRESENCE OF A HEMODYNAMICALLY SIGNIFICANT STENOSIS WITHIN THE PROXIMAL RIGHT INTERNAL CAROTID ARTERY OR CAROTID BULB. (LESS THAN 50% DIAMETER STENOSIS). ? LEFT CAROTID BIFURCATION: ? PEAK SYSTOLIC VELOCITIES (CM/S) CCA ??76.5, ICA ??152.8/30.9, ECA ??69.5, ICA/CCA ??2. ?? LARGE AMOUNT OF SHADOWING CALCIFIED PLAQUE. ??FINDINGS SUGGESTING 50-69% DIAMETER STENOSIS PRESENT WITHIN THE LEFT INTERNAL CAROTID ARTERY/CAROTID BULB. ? VERTEBRAL ARTERIES: ? ANTEGRADE FLOW PRESENT IN BOTH VERTEBRAL ARTERIES. ? STENOSES EVALUATED USING CRITERIA SIMILAR TO NASCET. ? ELECTRONICALLY SIGNED BY JANE REEVES MD ON 06/21/2018 2:45 PM ? Procedure Note Rhianna Abreu MD - 06/21/2018 ROXANA RITCHIE ADMIT/SERVICE DATE:06/21/18 ACCT: [id number] DISCHARGE DATE: : 1935 SEX: F ORD SITE: [facility] PT TYPE: REG CLI ORDERING MD:NOEMI JADE MD STUDY DATE REPORT # ORDER # EXT ORDER ID 06/21/18 [id number] PROC CODE: DUPCAROTDB PROCEDURE DESCRIPTION: US DUPLEX CAROTID BI IMAGING STUDIES:US DUPLEX CAROTID BI DATE: 06/21/2018 12:18 PM INDICATION: DIZZINESS, HYPERTENSION. COMPARISON: 11/07/2015. TECHNIQUE: EXAMINATION PERFORMED BY WATER RESOURCE PROJECT MANAGER USING GRAYSCALE WITHCOLOR FLOW AND SPECTRAL DOPPLER. SELECTED IMAGES SUBMITTED FOR INTERPRETATION. WORKSHEETCOMPLETED. IMPRESSION: RIGHT CAROTID BIFURCATION: PEAK SYSTOLIC VELOCITIES (CM/S) CCA 86.3, ICA 98.1/19.3, ECA 95,ICA/CCA 1.14. MINIMAL PLAQUE. THERE IS NO EVIDENCE TO SUGGEST THE PRESENCE OF AHEMODYNAMICALLY SIGNIFICANT STENOSIS WITHIN THE PROXIMAL RIGHT INTERNAL CAROTID ARTERY OR CAROTIDBULB. (LESS THAN 50% DIAMETER STENOSIS). LEFT CAROTID BIFURCATION: PEAK SYSTOLIC VELOCITIES (CM/S) CCA 76.5, ICA 152.8/30.9, ECA 69.5,ICA/CCA 2. LARGE AMOUNT OF SHADOWING CALCIFIED PLAQUE. FINDINGS SUGGESTING 50-69%DIAMETER STENOSIS PRESENT WITHIN THE LEFT INTERNAL CAROTID ARTERY/CAROTID BULB. VERTEBRAL ARTERIES: ANTEGRADE FLOW PRESENT IN BOTH VERTEBRAL ARTERIES. STENOSES EVALUATED USING CRITERIA SIMILAR TO NASCET. ELECTRONICALLY SIGNED BY JANE REEVES MD ON 06/21/2018 2:45 PM Noemi Jade MD VASC Final Result documented in this encounter Visit Diagnoses Not on filedocumented in this encounter Care Teams Lotteries Agent Relationship Specialty Start Date End Date Noemi Jade MD PCP - General INTERNAL MEDICINE 02/22/18 07/03/18 documented as of this encounter
--- OUTSIDE RECORDS SUMMARY | 2024-04-05 00:25 | XMS_ITS | Encounter Summary ---
Author Organization [facility] Address [address] [place] [address]. [place], [place] [address] [place] [address] Care Team Providers Care Drug Safety Scientist Name Role Phone Noemi Barnard MD Primary Care Provider + [phone] Reason for Visit * Reason Comments Blood Pressure f/u with EKG for diz ziness. Encounter Details Date Type Department Care Team (Late st Contact Info) Description 06/21/2018 8:20 AM CDT Office Visit [facility] Family & Internal Medicine [address] [address] Martha Parker, MIKE Blood Pressure (f/u with EKG for dizziness. ) Social History Tobacco Use Types Packs/Day [...] Sign Reading Time Taken Comments Blood Pressure 150/80 06/21/2018 8:13 AM CDT Pulse 86 06/21/2018 8:13 AM CDT Temperature - - Respiratory Rate 18 06/21/2018 8:13 AM CDT Oxygen Saturation 97% 06/21/2018 8:13 AM CDT Inhaled Oxygen Concentration - - Weight 59.4 kg (131 lb) 06/21/2018 8:13 AM CDT Height 157.5 cm (5' 2 ) 06/21/2018 8:13 AM CDT Body Mass Index 23.96 06/21/2018 8:13 AM CDT documented in this encounter Patient Instructions * Patient Instructions* Martha Parker NP - 06/21/2018 8:20 AM CDT Changing to ER Metformin 500 mg po daily Check fasting blood sugar Pt is having otitis external, noted to be improving but slowly Pt has referral to cardiology Pt is getting the US carotids today. Use MiraLax today and daily until have bowel movement then adjust as needed. Metformin ER one daily. Do need to know what logs are running for the blood sugars. Asked pt not to drive at this time until finding out more about heart. SLUM testing was documented in this encounter Progress Notes * Martha Parker NP - 06/21/2018 8:20 AM CDT Reason for Visit: Blood Pressure (f/u with EKG for dizziness. ) History of Present Illness: Hypertension: Pt has been taking the two amlodipine and seems to be better today. It is only 2 days from the lastvisit but the reading is better. Pt is still complaining of weakness and dizziness. Memory changes: Daughter is with the pt at this visit and is very concerned that there is decline in the pt abilityto function and think. Pt is reportedly having much more problem remembering medication and daily routines. Pt is living in apartment with meals being delivered by the meals on wheels, but still family is concerned over pt conditions. Pt is needing more family assistance and intervention in helpfulcare. Pt is still able to perform most ADLs SLUMS completed today with a score of Diarrhea: Diarrhea has improved but now pt is c/o constipation. Educated to start Miralax daily until she hasa regular bowel movement then adjust as needed. Diabetes: Metformin changed to Metformin ER 500mg daily to see if that helps control her sugars without giving her diarrhea. Dizziness and fatigue: Pt is still having fatigue reported and is having problems with dizziness with changing position. Pt labs did not indicate dehydration but with the diarrhea pt may be having some dehydration or volume depletion that may add to the symptoms. 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 Pt does repo rt if bending neck or looking up will become dizzy as well Pt states when does any work becomes short of breath and very fatigued. Does improve after rest. Pt reports does have some pain in the chesttoo. Pt is anxious in nature. EKG completed in office with abnormal results. Industrial Cook referral changed to LEXY instead of routine. Coratid US to be done today after appointment. ROS: Review of Systems Constitutional: Positive for malaise/fatigue. HENT: Positive for ear discharge, ear pain and hearing loss. Pt wears hearing aid in the right ear Eyes: Negative. Respiratory: Negative. Cardiovascular: See HPI Gastrointestinal: Positive for abdominal pain, constipation and heartburn. See HPI Skin: Negative. Neurological: Positive for weakness. Memory changes mild confusion Endo/Heme/Allergies: Negative. Psychiatric/Behavioral: Positive for memory loss. The patient is nervous/anxious. Anxiety and concern over her condition Medications: Current Outpatient Medications: ??? amlodipine 5 MG tablet, Take 2 tablets (10 mg total) by mouth daily., Disp: 180 tablet, Rfl: 1 ??? aspirin EC 81 MG EC tablet, Take 1 tablet by mouth daily., Disp: , Rfl: ??? Cholecalciferol (VITAMIN D) 2000 units Cap, Take 1 capsule by mouth daily., Disp: , Rfl: ??? ciprofloxacin (CIPRO) 500 MG tablet, Take 1 tablet (500 mg total) by mouth 2 (two) times daily for 7 days., Disp: 14 tablet, Rfl: 0 ??? ENALAPRIL 20 MG tablet, TAKE 1 TABLET BY MOUTH DAILY DIRECTED, Disp: 90 tablet, Rfl: 0 ??? Glucose Blood (ONE TOUCH ULTRA TEST STRIPS) test strip, Use one strip 3 (three) times weekly and as needed to test blood glucose levels., Disp: , Rfl: ??? hydrOXYzine 25 MG tablet, Take 1 tablet by mouth nightly at bedtime., Disp: , Rfl: ??? LEVOTHYROXINE 50 MCG tablet, TAKE 1 TABLET BY MOUTH EVERY WEDNESDAY AND WEDNESDAY, Disp: 24 tablet,Rfl: 0 ??? LEVOTHYROXINE 75 MCG tablet, TAKE ONE TABLET BY MOUTH DAILY ON WEDNESDAY THROUGH WEDNESDAY AND 50MCG TABLET ON WEDNESDAY AND WEDNESDAY., Disp: 66 tablet, Rfl: 0 ??? Melatonin 10 MG Cap, Take one tablet by mouth at bedtime as needed for sleep., Disp: , Rfl: ??? metFORMIN ER, MOD, 500 MG TABLET SR 24 HR 24 hr tablet, TAKE 1 tablet every morning, Disp: 30 tablet, Rfl: 1 ??? ofloxacin 0.3 % otic solution, Place 5 drops into the right ear 2 (two) times daily for 7 days., Disp: 5 mL, Rfl: 0 ??? pantoprazole 40 MG tablet, Take 1 tablet by mouth daily., Disp: , Rfl: ??? PRAVASTATIN 40 MG [...] file Gets together: Not on file Attends presybeterian service: Not on file Active member of [...] Relation Name Status ??? Other (Not Specified) Physical Exam Constitutional: She is oriented to person, place, and time. She appears well- developed. She appearsdistressed. Pt is frail elderly lady. HENT: Head: Normocephalic. Mouth/Throat: Oropharynx is clear and moist. Ear pain in the right ear. Pt has red ear canal with swelling and tenderness. No colored discharge but reported having clear serous drainage. TM clear and noted to be able to visualize the bony structures and has light reflex Eyes: Conjunctivae and EOM are normal. Pupils are equal, round, and reactive to light. Neck: Normal range of motion. Cardiovascular: Normal rate and S1 normal. An irregularly irregular rhythm present. Murmur heard. Systolic murmur is present with a grade of 2/6. Pt has loud heart sound. Pulmonary/Chest: Effort normal and breath sounds normal. Abdominal: Soft. Bowel sounds are normal. Pt has left lower abdominal pain tender with palpation. Musculoskeletal: She exhibits edema and tenderness. Pt has slow unsteady gait. Using walker in the home does not have it with her today Mild bilateral lower extremity edema +1 Neurological: She is alert and oriented to person, place, and time. Skin: Skin is warm and dry. Psychiatric: Her behavior is normal. Her mood appears anxious. Cognition and memory are impaired. She expresses impulsivity. Pt is worrying over her high blood pressure Filed Vitals: 06/21/18 0813 BP: 150/80 Pulse: 86 Resp: 18 SpO2: 97% Weight: 59.4 kg (131 lb) Height: 5' 2 (1.575 m) Assessment Encounter Diagnose(s) ICD-10-CM ICD-9-CM SNOMED CT(R) 1. Type 2 diabetes mellitus with complication, without long-term current use of insulin ([facility]) E11.8 250.90 TYPE 2 DIABETES MELLITUS GLUCOSE BLOOD, MONITOR DEVICE 2. Atypical chest pain R07.89 786.59 ATYPICAL CHEST PAIN ELECTROCARDIOGRAM, TRACING Recommendations and Plan: Outpatient Encounter Medications as of 06/21/2018 Medication Sig Dispense Refill ??? [DISCONTINUED] metFORMIN ER, MOD, 500 MG TABLET SR 24 HR 24 hr tablet TAKE 1 tablet every morning 30 tablet 1 ??? amlodipine 5 MG tablet Take 2 tablets (10 mg total) by mouth daily. 180 tablet 1 ??? aspirin EC 81 MG EC tablet Take 1 tablet by mouth daily. ??? Cholecalciferol (VITAMIN D) 2000 units Cap Take 1 capsule by mouth daily. ??? ciprofloxacin (CIPRO) 500 MG tablet Take 1 tablet (500 mg total) by mouth 2 (two) times daily for 7 days. 14 tablet 0 ??? ENALAPRIL 20 MG tablet TAKE 1 TABLET BY MOUTH DAILY DIRECTED 90 tablet 0 ??? Glucose Blood (ONE TOUCH ULTRA TEST STRIPS) test strip Use one strip 3 (three) times weekly andas needed to test blood glucose levels. ??? hydrOXYzine 25 MG tablet Take 1 tablet by mouth nightly at bedtime. ??? LEVOTHYROXINE 50 MCG tablet TAKE 1 TABLET BY MOUTH EVERY WEDNESDAY AND WEDNESDAY 24 tablet 0 ??? LEVOTHYROXINE 75 MCG tablet TAKE ONE TABLET BY MOUTH DAILY ON WEDNESDAY THROUGH WEDNESDAY AND 50MCG TABLET ON WEDNESDAY AND WEDNESDAY. 66 tablet 0 ??? Melatonin 10 MG Cap Take one tablet by mouth at bedtime as needed for sleep. ??? [DISCONTINUED] metFORMIN 500 MG 24 hr tablet Take 1 tablet by mouth 2 (two) times daily. ??? ofloxacin 0.3 % otic solution Place 5 drops into the right ear 2 (two) times daily for 7 days. 5 mL 0 ??? pantoprazole 40 MG tablet Take 1 tablet by mouth daily. ??? PRAVASTATIN 40 MG tablet TAKE 1 TABLET BY MOUTH AT BEDTIME 90 tablet 0 ??? RANITIDINE 300 MG tablet TAKE ONE TABLET BY MOUTH AT BEDTIME NIGHTLY 90 tablet 0 No facility-administered encounter medications on file as of 06/21/2018. Roxana was seen today for hypertension. Diagnoses and all orders for this visit: Dizziness - US CAROTID DUPLEX KARLA; Future Going to get the Carotid US done today after appointment. Essential hypertension - amlodipine 5 MG tablet; Take 2 tablets (10 mg total) by mouth daily. - US CAROTID DUPLEX KARLA; Future Diarrhea, unspecified type Pt held the metformin for a few days before returning to the office. Is now complaining of constipation. Suggested to add Miralax over the counter daily until bowel movement is regular then considering every other day. Type 2 diabetes mellitus with complication: Since c/o diarrhea from the Metformin changing medication to the extended release 500 mg one time aday. Pt to try this dose to see if diarrhea occurs. To log blood sugars and bring log back with herat next visit. Otitis externa of right ear, unspecified chronicity, unspecified type Improving but needs to continue the ear gtts. Pt is wearing hearing aid in the ear and it is still in the ear. Encouraged pt to leave it out and let the ear heal.Educated to wipe the hearing aid off with alcohol pads every night. Pt has been driving and family is concerned with her driving. Encouraged this pt not to drive at this time because of her dizziness and fatigue. Pt verbalized understanding. EKG completed at this visit. Abnormal results noted. Referral to cariologist changed to [facility] so patient can be seen. SLUMs testing completed at today's appointment. Scored 19/30 showing mild cognitive impairment. Educated to continue to allow family to help and not drive yet. Educated to go to the ER if she starts having chest pain or increased SOB prior to being seen by the mannequin mounter. MARTHA PARKER NP 06/21/2018 1:06 PM documented in this encounter Plan of Treatment Not on file documented as of this encounter Procedures Procedure Name Priority Date/Time Associated Diagnosis Comments GLUCOSE BLOOD, MONITOR DEVICE Routine 06/21/2018 Type 2 diabetes mellitus with complication, without long-term current use of insulin ([facility]) ELECTROCARDIOGRAM, TRACING Routine 06/21/2018 Atypical chest pain documented in this encounter Results * (ABNORMAL) GLUCOSE BLOOD, MONITOR DEVICE (06/21/2018) GLUCOSE WHOLE BLOOD 130(A) 70 - 100 mg/dL [facility] ([id number]), [place] 06/21/2018 Martha Parker NP LABORATORY Final Result [facility] ([id number]), [place] [address] [place] [address], * [address]257 - EKG (In Clinic tracing only) (06/21/2018) Martha Parker NP PROCEDURES-UNRESULTED Edited Result - Final documented in this encounter Visit Diagnoses Diagnosis Type 2 diabetes mellitus with complication, without long-term current use of insulin ([facility])- Primary Atypical chest pain Other chest pain documented in this encounter Care Teams Drug Safety Scientist Relationship Specialty Start Date End Date Noemi Barnard MD PCP - General INTERNAL MEDICINE 02/22/18 07/03/18 documented as of this encounter
--- OUTSIDE RECORDS SUMMARY | 2024-04-05 00:25 | XMS_ITS | Encounter Summary ---
Author Organization [facility] Address [facility] [place] [address] [place] [address] Care Team Providers Care Home Health Aide Name Role Phone Noemi Barnard MD Primary Care Provider + [phone] Reason for Referral * Consultation (Urgent) - Closed Specialty Diagnoses / Procedures Referred By Contact Referred To Contact CARDIOLOGY / Cardiology Diagnoses Essential hypertension Dizziness Martha Parker NP [facility] [address] [address] Phone: tel: fax: Referral ID Status Reason Start Date Expiration Date V isits Requested Visits Authorized [id number] Closed Specialty Services 06/18/2018 07/18/2019 100 100 Reason for Visit * Reason Comments Hypertension 2 day f/u on HTN, pa tient BP was 158/62. She is c/o SOB with exertion. Still not feeling well. Still has diarrhea on/off. Encounter Details Date Type Department Care Team (Late st Contact Info) Description 06/17/2018 4:40 PM CDT Office Visit [facility] Family & Internal Medicine - [address] [address] Martha Parker NP Hypertension (2 day f/u on HTN, patient BP was 158/62. She is c/o SOB with exertion. Still not feeling well. Still has diarrhea on/off. ) Social History Tobacco Use Types Packs/Day [...] Sign Reading Time Taken Comments Blood Pressure 158/62 06/17/2018 4:38 PM CDT Pulse 92 06/17/2018 4:38 PM CDT Temperature 36.6 ??C (97.8 ??F) 06/17/2018 4:38 PM CD T Respiratory Rate 18 06/17/2018 4:38 PM CDT Oxygen Saturation 98% 06/17/2018 4:38 PM CDT Inhaled Oxygen Concentration - - Weight 59.9 kg (132 lb) 06/17/2018 4:38 PM CDT Height 157.5 cm (5' 2 ) 06/17/2018 4:38 PM CDT Body Mass Index 24.14 06/17/2018 4:38 PM CDT documented in this encounter Patient Instructions * Patient Instructions* Martha Parker NP - 06/17/2018 4:40 PM CDT Diarrhea continues Hold Metformin until seen on next Wednesday and see if that slows the diarrhea down. US of the carotids ordered US of the abdomen will be done Wednesday On Wednesday will do EKG for the fatigue dizziness Referral to certified legal investigator for further cardiac work up Will do SLUM mental testing on Wednesday at the visit as well documented in this encounter Progress Notes * Martha Parker NP - 06/17/2018 4:40 PM CDT Reason for Visit: Hypertension (2 day f/u on HTN, patient BP was 158/62. She is c/o SOB with exertion. Still not feeling well. Still has diarrhea on/off. ) History of Present Illness: Hypertension: Pt [...] is still able to perform most ADLs Diarrhea: Pt is having chronic diarrhea. Pt is taking metformin and concern that may be part of the problem with the pt diarrhea. Pt is very cautious about stopping the medication but would like the pt try to stop the medication and see if that will improve the situation. Pt did not have elevated WBC or any thickening of the intestinal lining so not thinking that the pt is having diverticulitis as first thought. Dizziness and fatigue: Pt is still having [...] the chesttoo. Pt is anxious in nature. ROS: Review of Systems Constitutional: Positive for malaise/fatigue. HENT: Positive for ear discharge, ear pain and hearing loss. Pt wears hearing aid in the right ear Eyes: Negative. Respiratory: Negative. Cardiovascular: See HPI Gastrointestinal: Positive for abdominal pain, diarrhea and heartburn. See HPI Genitourinary: Positive for hematuria. Skin: Negative. Neurological: Positive for weakness. Memory changes mild confusion Endo/Heme/Allergies: Negative. Psychiatric/Behavioral: Positive for memory loss. Anxiety and concern over her condition Medications: [...] for sleep., Disp: , Rfl: ??? metFORMIN 500 MG 24 hr tablet, Take 1 tablet by mouth 2 (two) times daily., Disp: , Rfl: ??? ofloxacin 0.3 % otic solution, Place [...] file Gets together: Not on file Attends judaism service: Not on file Active member of [...] Soft. Bowel sounds are normal. There is tenderness. There is guarding. Pt has left lower abdominal pain tender [...] over her high blood pressure Filed Vitals: 06/17/18 1638 BP: 158/62 Pulse: 92 Resp: 18 Temp: 97.8 ??F (36.6 ??C) TempSrc: Oral SpO2: 98% Weight: 59.9 kg (132 lb) Height: 5' 2 (1.575 m) Assessment Encounter Diagnose(s) ICD-10-CM ICD-9-CM SNOMED CT(R) 1. Dizziness R42 780.4 DIZZINESS US CAROTID DUPLEX KARLA 2. Essential hypertension I10 401.9 ESSENTIAL HYPERTENSION amlodipine 5 MG tablet US CAROTID DUPLEX KARLA 3. Diarrhea, unspecified type R19.7 787.91 DIARRHEA 4. Otitis externa of right ear, unspecified chronicity, unspecified type H60.91 380.10 OTITIS EXTERNA OF RIGHT EAR Recommendations and Plan: Outpatient Encounter Medications as of 06/17/2018 Medication Sig Dispense Refill ??? amlodipine 5 MG tablet Take 2 [...] at bedtime as needed for sleep. ??? metFORMIN 500 MG 24 hr tablet Take [...] MOUTH AT BEDTIME NIGHTLY 90 tablet 0 ??? [DISCONTINUED] amlodipine 5 MG tablet Take 1 tablet (5 mg total) by mouth daily. 90 tablet 1 No facility-administered encounter medications on file as of 06/17/2018. Roxana was seen today for hypertension. Diagnoses and all orders for this visit: Dizziness - US CAROTID DUPLEX KARLA; Future Essential hypertension - amlodipine 5 MG tablet; Take 2 tablets (10 mg total) by mouth daily. - US CAROTID DUPLEX KARLA; Future Diarrhea, unspecified type Pt will hold the metformin for a few days before returning to the office. Will retest her blood sugar when returns to the office. Otitis externa of right ear, unspecified chronicity, unspecified type Improving but needs to continue the ear gtts. Pt is wearing hearing aid in the ear and it is still in the ear. Encouraged pt to leave it out and let the ear heal. Pt has been driving and family is concerned with her driving. Encouraged this pt not to drive at this time because of her dizziness and fatigue. Pt verbalized understanding. Will refer pt to certified legal investigator and get EKG at the next visit. Will also do SLUMs testing on the pt. MARTHA PARKER NP 06/18/2018 9:33 AM documented in this encounter Plan of Treatment Scheduled Referrals Name Type Priority Associated Diagnoses Orde r Schedule Ambulatory referral to Cardiology, Adult Referral Routine Essential hypertension Dizziness Ordered: 06/18/2018 documented as of this encounter Visit Diagnoses Diagnosis Dizziness- Primary Dizziness and giddiness Essential hypertension Unspecified essential hypertension Diarrhea, unspecified type Otitis externa of right ear, unspecified chronicity, unspecified type documented in this encounter Care Teams Home Health Aide Relationship Specialty Start Date End Date Noemi Barnard MD PCP - General INTERNAL MEDICINE 02/22/18 07/03/18 documented as of this encounter
--- OUTSIDE RECORDS SUMMARY | 2024-04-05 00:25 | XMS_ITS | Encounter Summary ---
Author Organization [facility] Address [address] [place] [address]. [place] [address] [place] [address] Care Team Providers Care Director Nursing Service Name Role Phone Noemi Barnard MD Primary Care Provider [phone] Encounter Details Date Type Department Care Team (Late st Contact Info) Description 03/17/2018 Abstract [facility] [address] [place] [address] Martha Ruiz, MIKE Social History Tobacco Use Types Packs/Day Years [...] Procedure Name Priority Date/Time Associated Diagnosis Comments CLOSTRIDIUM DIFFICILE Routine 03/17/2018 8:43 AM WEIGHT TRAINING INSTRUCTOR CULTURE STOOL Routine 03/17/2018 8:43 AM WEIGHT TRAINING INSTRUCTOR documented in this encounter Results * CLOSTRIDIUM DIFFICILE (03/17/2018 8:43 AM WEIGHT TRAINING INSTRUCTOR) MOLECULAR ASSAY NEGATIVE NEGATIVE 03/17/2018 2:08 PM WEIGHT TRAINING INSTRUCTOR [facility] Comment: NOTE: C. difficile molecular tests are highly sensitive. ??Empiric therapy for patients with diarrhea and negative C. difficile test should be avoided. ?? Submission of more than one specimen within 7 days is not recommended. ?? Molecular tests for C. difficile are highly sensitive and a negative result does not need to be confirmed by a second specimen. 03/17/2018 8:43 AM WEIGHT TRAINING INSTRUCTOR 03/17/2018 12:48 PM WEIGHT TRAINING INSTRUCTOR us Generic Conversion Md BERMUDEZ BODY FLUIDS AND STOOLS ORDERABLES Final Result [facility] [address] [place] [address], * Stool Culture (03/17/2018 8:43 AM WEIGHT TRAINING INSTRUCTOR) SPEC DESCRIPTION STOOL 03/17/2018 12:35 PM [facility] SPECIAL REQUESTS NO SPECIAL REQUEST 03/17/2018 12:35 PM [facility] CULTURE RESULT NEGATIVE FOR SHIGA TOXIN 1 AND 2 03/20/2018 9:30 AM [facility] CULTURE RESULT NO ENTERIC PATHOGENS ISOLATED 03/20/2018 9:30 AM [facility] CULTURE RESULT NOTE: STOOL CULTURES ARE ROUTINELY SCREENED FOR SALMONELLA,SH IGELLA,YERSIN IA,AEROMONAS, PLESIOMONAS,C AMPYLOBA CTER,E.COLI 0157,OVERGROW THS OF S.AUREUS,YEAS T AND P. AERUGINOSA 03/20/2018 9:30 AM [facility] STOOL SPECIMEN / Unknown 03/17/2018 8:43 AM WEIGHT TRAINING INSTRUCTOR 03/17/2018 12:47 PM WEIGHT TRAINING INSTRUCTOR us Generic Conversion Md BERMUDEZ MICROBIOLOGY - GENERAL ORDERABLES Final Result [facility] [address] [place] [address], [place] [phone] [facility] [address] [place] [address], documented in this encounter Visit Diagnoses Diagnosis Diarrhea documented in this encounter Care Teams Director Nursing Service Relationship Specialty Start Date End Date Noemi Barnard MD PCP - General INTERNAL MEDICINE 02/22/18 07/03/18 documented as of this encounter
--- OUTSIDE RECORDS SUMMARY | 2024-04-05 00:25 | XMS_ITS | Encounter Summary ---
Author Organization [facility] Address [address] [place] [address]. [place], [place] [address] [place] [address] Care Team Providers Care Country Printer Apprentice Name Role Phone Unavailable Primary Care Provider Unavailabl e Encounter Details Date Type Department Care Team (Latest Contact Info) Description 01/10/2018 Abstract [facility] , Rhianna Castaneda MD Social History Tobacco Use Types Packs/Day Years Used Date Smoking Tobacco: Never Assessed Comments Unknown Sex and Gender Information Value Date Recorded Sex Assigned at Not on file Legal Sex Female 8:14 PM CDT Gender Identity Not on file Sexual Orientation Not on file documented as of this encounter Plan of Treatment Not on file documented as of this encounter Visit Diagnoses Not on filedocumented in this encounter
--- OUTSIDE RECORDS SUMMARY | 2024-04-05 00:25 | XMS_ITS | Encounter Summary ---
Author Organization [facility] Address [address] [place] [address]. [place], [place] [address] [place] [address] Care Team Providers Care Organisation And Methods Analyst Name Role Phone Noemi Barnard MD Primary Care Provider Joni Mckeon MD Unavailable [phone] Martha Ruiz PAPER FOLDER Primary Care Provider Andrés pederson Encounter Details Date Type Department Care Team (Late st Contact Info) Description 06/27/2018 Abstract [facility] [address] [place] [id number] Martha Ruiz, PAPER FOLDER Social History Tobacco Use Types Packs/Day Years [...] Date/Time Associated Diagnosis Comments HEMOGLOBIN, GLYCOSYLATED Routine 06/27/2018 10:32 AM CDT LIPID PANEL Routine 06/27/2018 10:32 AM CDT documented in this encounter Results * LIPID PANEL (06/27/2018 10:32 AM CDT) [facility] Signature CHOLESTEROL 150 <200.0 MG/DL 06/27/2018 9:17 PM CDT [facility] TRIGLYCERIDES 70 <150 MG/DL 06/27/2018 9:17 PM CDT [facility] HDL 75 >40.0 MG/DL 06/27/2018 9:17 PM CDT [facility] LDL (CALCULATED) 61 <100 MG/DL 06/28/19 19 9:17 PM CDT [facility] NON HDL CHOLESTEROL 75 <130 MG/DL 06/27 9:17 PM T [facility] CHOL/HDL RATIO 2.0 0.0 - 4.5 06/27/2018 9:17 PM CDT [facility] VLDL CALCULATION 14 5 - 55 MG/DL 06/27/2018 9:17 PM T [facility] LIPID INTERPRETATION 06/27/2018 9:17 PM CDT [facility] Comment: NIH CONCENSUS REPORT RECOMMENDATIONS: ?ADULT ? CHILD ??LOW RISK: ?CHOLESTEROL ? <200 ? <170 ? TRIGLYCERIDE ?<150 ?--- ?HDL ? >=60 ?--- ?LDL ? <100 ? <110 ?? BORDERLINE: ?CHOLESTEROL ? 200-239 ?? 170-199 ?TRIGLYCERIDE ?150-199 ? --- ?HDL ? 40-59 ?--- ?LDL ? 100-159 ?? 110- 129 ?? HIGH RISK: ? CHOLESTEROL ? >=240 ?>=200 ?TRIGLYCERIDE ?>=200 ? --- ?HDL ?<40 ?--- ?LDL ? >=160 ?>=130 06/27/2018 10:3 2 AM CDT 06/27/2018 8:56 PM CDT us Generic Conversion Md [facility] Final R esult [facility] [address] [place] [address], * (ABNORMAL) HEMOGLOBIN, GLYCOSYLATED (06/27/2018 10:32 AM CDT) HGB A1C 6.4(H) <5.7 % 06/28/2018 6:44 AM CDT [facility] Comment: INCREASED RISK OF DIABETES<5.7% ?NON-DIABETES5.7-6.4% INCREASED RISK FOR FUTURE DIABETES> OR = 6.5 CONSISTENT WITH DIABETES STANDARDS OF MEDICAL CARE IN DIABETES-[facility], [facility](SUPP 1): S1-S61,2010 WHOLE BLOOD SPECIMEN / Unknown 06/27/2018 10:32 AM CDT 06/27/2018 8:56 PM CDT us Generic Conversion Md [facility] Final R esult [facility] [address] [place] [address], documented in this encounter Visit Diagnoses Diagnosis Hyperlipidemia Other and unspecified hyperlipidemia documented in this encounter Care Teams Organisation And Methods Analyst Relationship Specialty Start Date End Date Noemi Barnard MD PCP - General INTERNAL MEDICINE 02/22/18 07/03/18 Martha Ruiz NP [facility] [address] [address] PCP - General NURSE PRACTITIONER 07/04/18 08/22/18 Joni Mckeon MD [facility] [address] [address] [place] [employer] Spike Assembler CARDIOVASCULAR DISEASE 07/04/18 documented as of this encounter
--- OUTSIDE RECORDS SUMMARY | 2024-04-05 00:25 | XMS_ITS | Encounter Summary ---
Author Organization [facility] Address [address] [place] [address]. [place], [place] [address] [place] [address] Care Team Providers Care In Store Banker Name Role Phone Noemi Jade MD Primary Care Provider + [phone] Encounter Details Date Type Department Care Team (Latest Contact Info) Description 02/04/2018 Abstract [facility] Rhianna Abreu MD Social History Tobacco Use Types Packs/Day Years Used Date Smoking Tobacco: Never Assessed AUDIT-C Answer Date Recorded Frequency of Alcohol Consumption Never 02/22/2018 Average Number of Drinks Not on file 018 Frequency of Binge Drinking Not on file 02/04 Comments Unknown Sex and Gender Information Value Date Recorded Sex Assigned at Not on file Legal Sex Female 8:14 PM CDT Gender Identity Not on file Sexual Orientation Not on file documented as of this encounter Procedure Notes * Noemi Jade MD - 02/04/2018 12:00 AM CDT [place] [address] Patient: ROXANA RITCHIE Abhishek Med Rec#: [id number] Birthdate: 1935 Admit/Svce Date: Disch Date: Attending Md: NOEMI JADE MD CHART DOCUMENT OPERATION RECORD DATE OF OPERATION: 02/04/2018 History: 82-year-old female with recurrent diverticulitis episodes now undergoes colonoscopy evaluation. Procedure Note: Informed consent obtained earlier. Patient was seen in the OR, placed in supine lateral decubitus position and sedated under MAC anesthesia. Rectal exam is negative. PCF-190 colonoscope lubricated and inserted into the rectum and advanced all the way to the cecum. Bowel prep was excellent. Cecum was identified by the ileocecal valve and the appendiceal orifice. Pictures were taken. Cecal withdrawal time measured. Cecum, ascending colon, transverse colon, descending colon, sigmoid and rectum are all carefully visualized. There was extensive diverticulosis seen throughout the entire colon but was otherwise negative. Retroflexion at the anal verge revealed moderate hemorrhoids. Scope withdrawn. Findings: 1. Moderate hemorrhoids. 2. Extensive diverticulosis. 3. Otherwise negative colonoscopy to the cecum with excellent bowel prep. Electronically Signed by Christos Burrows MD 02/04/2018 10:05 A PK/linda 02/04/2018 02/04/2018 09:09 A Job No: [id number] Doc No: [id number] cc: MD Christos Cross MD ARE VISITOR documented in this encounter Plan of Treatment Not on file documented as of this encounter Visit Diagnoses Not on filedocumented in this encounter Care Teams In Store Banker Relationship Specialty Start Date End Date Noemi Jade MD PCP - General INTERNAL MEDICINE 02/22/18 07/03/18 documented as of this encounter
--- OUTSIDE RECORDS SUMMARY | 2024-04-05 00:25 | XMS_ITS | Encounter Summary ---
Author Organization [facility] Address [address] [place] [address]. [place], [place] [address] [place] [address] Care Team Providers Care Systems Administration Analyst Name Role Phone Noemi Barnard MD Primary Care Provider [phone] Encounter Details Date Type Department Care Team (Latest Contact Info) Description 02/04/2018 Scan [facility] Scanned, Documents Social [...] on filedocumented in this encounter Care Teams Systems Administration Analyst Relationship Specialty Start Date End Date Noemi Barnard MD PCP - General INTERNAL MEDICINE 02/22/18 07/03/18 documented as of this encounter
--- OUTSIDE RECORDS SUMMARY | 2024-04-05 00:25 | XMS_ITS | Encounter Summary ---
Author Organization [facility] Address [address] [place] [address]. [place], [place] [address] [place] [address] Care Team Providers Care Veterinary Technician Name Role Phone Noemi Barnard MD Primary Care Provider + [phone] Reason for Visit * Reason Onset Date Comments Medication Problem 06/21/2018 Encounter Details Date Type Department Care Team (Late st Contact Info) Description 06/21/2018 Telephone [facility] Family & Internal Medicine [address] [phone] Martha Ruiz NP Medication Problem Social History Tobacco Use Types Packs/Day [...] as of this encounter Progress Notes * Kat Hung - 06/21/2018 9:54 AM CDT Treasure Gay called stating 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 Please f/u LEXY. documented in this encounter Plan of Treatment Not on file documented as of this encounter Visit Diagnoses Not on filedocumented in this encounter Care Teams Veterinary Technician Relationship Specialty Start Date End Date Noemi Barnard MD PCP - General INTERNAL MEDICINE 02/22/18 07/03/18 documented as of this encounter
--- OUTSIDE RECORDS SUMMARY | 2024-04-05 00:25 | XMS_ITS | Encounter Summary ---
Author Organization [facility] Address [address] [place] [address]. [place] [address] [place] [address] Care Team Providers Care Program Developer Name Role Phone Noemi Barnard MD Primary Care Provider + [phone] Reason for Visit * Reason Comments UTI Was in 2 weeks ago a nd is still having vaginal bleeding. She is taking antibiotic currently. Constipation Patient c/o external hemorrhoid that is bleeding, slightly. Encounter Details Date Type Department Care Team (Late st Contact Info) Description 03/10/2018 10:00 AM DIRECTOR SALES Office Visit [facility] Family & Internal Medicine [address] [phone] Martha Parker, MIKE UTI (Was in 2 weeks ago and is still having vaginal bleeding. She is taking antibiotic currently.); Constipation (Patient c/o external hemorrhoid that is bleeding, slightly.) Social History Tobacco Use Types Packs/Day Years [...] Sign Reading Time Taken Comments Blood Pressure 148/62 03/10/2018 10:26 AM DIRECTOR SALES Pulse 92 03/10/2018 10:26 AM DIRECTOR SALES Temperature 36.4 ??C (97.5 ??F) 03/10/2018 10:[address] Respiratory Rate - - Oxygen Saturation 98% 03/10/2018 10:26 AM DIRECTOR SALES Inhaled Oxygen Concentration - - Weight 58.1 kg (128 lb) 03/10/2018 10:26 AM DIRECTOR SALES Height 157.5 cm (5' 2 ) 03/10/2018 10:26 AM DIRECTOR SALES Body Mass Index 23.41 03/10/2018 10:26 AM DIRECTOR SALES documented in this encounter Patient Instructions * Patient Instructions* Martha Parker NP - 03/10/2018 10:00 AM DIRECTOR SALES Pt will need to have the stool cultures done LEXY Pt has hemorrhoid use Preparation H suppositories as directed over the counter. Desitin over the counter for the vaginal itching. Diflucan is being used for the infection. Try to use desitin over the perineal area. Pt is using more depends and feels this is irritating the area as well. Use Preparation H suppositories over the counter to relieve some of the rectal pain. Stool cultures will be collected to rule out C-diff and/or other stool bacteria. If pt is not improved will refer to GI If symptoms worsens needs to return to the office or go to the ER. CTOR SALES CTOR SALES documented in this encounter Progress Notes * Martha Parker NP - 03/10/2018 10:00 AM CST Images from the original note were not included. Reason for Visit: UTI (Was in 2 weeks ago and is still having vaginal bleeding. She is taking antibiotic currently.) and Constipation (Patient c/o external hemorrhoid that is bleeding, slightly.) History of Present Illness: Pt has returned. UTI has been treated but had to change the antibiotic and pt is now having diarrhea. Pt has hx of diverticulitis but concern today is that pt may have C-diff. Pt is not having abdominal pain or fever. Pt complaining most of vaginal burning and rectal bleeding. She was told by GI specialist to returnto him if she had GI bleeding. Pt reports that when she had passed gas she then wiped tissue over the rectum and there was some blood. Pt reported it to be bright red blood. Pt is having tenderness over the rectum as well. Pt was given rectal examination and there was not any visible bleeding. Vaginal area was red. No visible bleeding noted. ROS: Review of Systems Constitutional: Generally weak frail elderly white female HENT: Negative. Eyes: Negative. Respiratory: Negative. Cardiovascular: Negative. Gastrointestinal: Positive for diarrhea. Negative for blood in stool. Blood on tissue noted but did not note any changes in the stool other than having liquid BM Genitourinary: Burning when voiding Musculoskeletal: Negative. Skin: Positive for rash. Pt complains of perineal area being red and itchy Neurological: Negative. Endo/Heme/Allergies: Negative. Psychiatric/Behavioral: Negative. Medications: Current Outpatient Medications: ??? amlodipine 5 MG tablet, Take 1 tablet (5 mg total) by mouth daily., Disp: 90 tablet, Rfl: 1 ??? aspirin EC 81 MG EC tablet, Take 1 tablet by mouth daily., Disp: , Rfl: ??? Cholecalciferol (VITAMIN D) 2000 units Cap, Take 1 capsule by mouth daily., Disp: , Rfl: ??? ENALAPRIL 20 MG tablet, TAKE 1 TABLET BY MOUTH DAILY DIRECTED, Disp: 90 tablet, Rfl: 0 ??? fluconazole (DIFLUCAN) 100 MG tablet, Take one now and one in 4 days., Disp: 2 tablet, Rfl: 0 ??? Glucose Blood (ONE TOUCH ULTRA TEST STRIPS) test strip, Use one strip 3 (three) times weekly and as needed to test blood glucose levels., Disp: , Rfl: ??? hydrOXYzine 25 MG tablet, Take 1 tablet by mouth nightly at bedtime., Disp: , Rfl: ??? levofloxacin 250 MG tablet, Take 1 tablet (250 mg total) by mouth daily for 10 days., Disp: 10 tablet, Rfl: 0 ??? LEVOTHYROXINE 50 MCG tablet, TAKE 1 TABLET BY MOUTH EVERY WEDNESDAY AND WEDNESDAY, Disp: 24 tablet,Rfl: 0 ??? levothyroxine 75 MCG tablet, Take one tablet daily Wednesday through Wednesday. And then 50MCG tableton Wednesday and Wednesday., Disp: , Rfl: 0 ??? Melatonin 10 MG Cap, Take one tablet by mouth at bedtime as needed for sleep., Disp: , Rfl: ??? metFORMIN 500 MG 24 hr tablet, Take 1 tablet by mouth 2 (two) times daily., Disp: , Rfl: ??? pantoprazole 40 MG tablet, Take 1 tablet by mouth daily., Disp: , Rfl: ??? PRAVASTATIN 40 MG tablet, TAKE 1 TABLET BY MOUTH AT BEDTIME, Disp: 90 tablet, Rfl: 0 ??? ranitidine 300 MG tablet, Take 1 tablet by mouth nightly at bedtime., Disp: , Rfl: 1 No Known Allergies Past Medical History: Diagnosis Date ??? Cancer (HCC) Past cancer survivor. ??? GERD (gastroesophageal reflux disease) No past surgical history on file. Social History Socioeconomic History ??? Marital status: Spouse name: Not on file ??? Number of children: Not on file ??? Years of education: Not on file ??? Highest education level: Not on file Social Needs ??? Financial resource strain: Not on file ??? Food insecurity - worry: Not on file ??? Food insecurity - inability: Not on file ??? Transportation needs - medical: Not on file ??? Transportation needs - non-medical: Not on file Occupational History ??? Not on file Tobacco Use ??? Smoking status: Never Smoker ??? Smokeless tobacco: Never Used Substance and Sexual Activity ??? Alcohol use: No Frequency: Never ??? Drug use: No ??? Sexual activity: Not on file Other Topics Concern ??? Not on file Social History Narrative ??? Not on file No family history on file. No family status information on file. Physical Exam Constitutional: She is oriented to person, place, and time. She appears well-developed. Pt is frail elderly lady. HENT: Head: Normocephalic. Mouth/Throat: Oropharynx is clear and moist. Eyes: Conjunctivae and EOM are normal. Pupils are equal, round, and reactive to light. Neck: Normal range of motion. Cardiovascular: Normal rate and regular rhythm. Murmur heard. Pulmonary/Chest: Effort normal and breath sounds normal. Abdominal: Soft. Bowel sounds are normal. Genitourinary: Genitourinary Comments: Pt has redness around the vaginal orifice. No linda vaginal bleeding noted. Pt has hemorrhoid external noted on the 11 o'clock area as indicated on the drawing. Noted there reed internal hemorrhoid with rectal examination, no visible bleeding upon examination. Musculoskeletal: Normal range of motion. Neurological: She is alert and oriented to person, place, and time. Skin: Skin is warm and dry. Psychiatric: She has a normal mood and affect. Her behavior is normal. Filed Vitals: 03/10/18 1026 BP: 148/62 Pulse: 92 Temp: 97.5 ??F (36.4 ??C) TempSrc: Oral SpO2: 98% Weight: 58.1 kg (128 lb) Height: 5' 2 (1.575 m) Assessment Encounter Diagnose(s) ICD-10-CM ICD-9-CM SNOMED CT(R) 1. Diarrhea, unspecified type R19.7 787.91 DIARRHEA CULTURE STOOL CLOSTRIDIUM DIFFICILE CULTURE STOOL CLOSTRIDIUM DIFFICILE 2. Vaginal burning N94.9 625.8 BURNING SENSATION OF VAGINA fluconazole (DIFLUCAN) 100 MG tablet Recommendations and Plan: Outpatient Encounter Medications as of 03/10/2018 Medication Sig Dispense Refill ??? amlodipine 5 MG tablet Take 1 tablet (5 mg total) by mouth daily. 90 tablet 1 ??? aspirin EC 81 MG EC tablet Take 1 tablet by mouth daily. ??? Cholecalciferol (VITAMIN D) 2000 units Cap Take 1 capsule by mouth daily. ??? ENALAPRIL 20 MG tablet TAKE 1 TABLET BY MOUTH DAILY DIRECTED 90 tablet 0 ??? fluconazole (DIFLUCAN) 100 MG tablet Take one now and one in 4 days. 2 tablet 0 ??? Glucose Blood (ONE TOUCH ULTRA TEST STRIPS) test strip Use one strip 3 (three) times weekly andas needed to test blood glucose levels. ??? hydrOXYzine 25 MG tablet Take 1 tablet by mouth nightly at bedtime. ??? levofloxacin 250 MG tablet Take 1 tablet (250 mg total) by mouth daily for 10 days. 10 tablet 0 ??? LEVOTHYROXINE 50 MCG tablet TAKE 1 TABLET BY MOUTH EVERY WEDNESDAY AND WEDNESDAY 24 tablet 0 ??? levothyroxine 75 MCG tablet Take one tablet daily Wednesday through Wednesday. And then 50MCG tablet on Wednesday and Wednesday. 0 ??? Melatonin 10 MG Cap Take one tablet by mouth at bedtime as needed for sleep. ??? metFORMIN 500 MG 24 hr tablet Take 1 tablet by mouth 2 (two) times daily. ??? pantoprazole 40 MG tablet Take 1 tablet by mouth daily. ??? PRAVASTATIN 40 MG tablet TAKE 1 TABLET BY MOUTH AT BEDTIME 90 tablet 0 ??? ranitidine 300 MG tablet Take 1 tablet by mouth nightly at bedtime. 1 ??? [DISCONTINUED] fluconazole (DIFLUCAN) 150 MG tablet Take 1 tablet (150 mg total) by mouth once for 1 dose. 1 tablet 0 ??? [DISCONTINUED] levothyroxine 75 MCG tablet No facility-administered encounter medications on file as of 03/10/2018. Roxana was seen today for uti and constipation. Diagnoses and all orders for this visit: Diarrhea, unspecified type - CULTURE STOOL; Future - CLOSTRIDIUM DIFFICILE; Future - CULTURE STOOL - CLOSTRIDIUM DIFFICILE Vaginal burning - Discontinue: fluconazole (DIFLUCAN) 150 MG tablet; Take 1 tablet (150 mg total) by mouth once for1 dose. - fluconazole (DIFLUCAN) 100 MG tablet; Take one now and one in 4 days. Pt will increase water intake. Try to use desitin over the perineal area. Pt is using more depends and feels this is irritating the area as well. Use Preparation H suppositories over the counter to relieve some of the rectal pain. Stool cultures will be collected to rule out C-diff and/or other stool bacteria. If pt is not improved will refer to GI If symptoms worsens needs to return to the office or go to the ER. MARTHA PARKER NP 03/10/2018 3:41 PM INOEMI MD,. reviewed the progress note and agree with the findings and plan of care. Cosigned by Noemi Barnard MD at 03/19/2018 10:03 AM DIRECTOR SALES CTOR SALES CTOR SALES CTOR SALES documented in this encounter Plan of Treatment Not on file documented as of this encounter Procedures Procedure Name Priority Date/Time Associated Diagnosis Comments CLOSTRIDIUM DIFFICILE Routine 03/17/2018 8:43 AM DIRECTOR SALES Diarrhea, unspecified type CULTURE STOOL Routine 03/17/2018 8:43 AM DIRECTOR SALES Diarrhea, unspecified type documented in this encounter Results * CLOSTRIDIUM DIFFICILE (03/17/2018 8:43 AM DIRECTOR SALES) Pathologist [facility] MOLECULAR ASSAY NEGATIVE NEG [facility] Comment: ?? NOTE: C. difficile molecular tests are highly sensitive. ??Empiric therapy for patients with diarrhea and negative C. difficile test should be avoided. Submission of more than one specimen within 7 days is not recommended. Molecular tests for C. difficile are highly sensitive and a negative result does not need to be confirmed by a second specimen. STOOL SPECIMEN / Unknown 03/17/2018 8:43 AM DIRECTOR SALES 03/17/2018 11:48 AM DIRECTOR SALES Martha Parker ADAPTIVE PHYSICAL EDUCATION SPECIALIST BODY FLUIDS AND STOOLS ORDERA BLES Final Result Performing Organization Address [facility] Co de Phone Number [facility] [address] [place] [address], [place] [phone] * Stool Culture (03/17/2018 8:43 AM DIRECTOR SALES) Pathologist [facility] SPEC DESCRIPTION Test: STOOL CULTURE STOOL [facility] SPECIAL REQUESTS NO SPECIAL REQUEST [facility] CULTURE RESULT NEGATIVE FOR SHIGA TOXIN 1 AND 2 [facility] Comment: NO ENTERIC PATHOGENS ISOLATED NOTE: STOOL CULTURES ARE ROUTINELY SCREENED FOR SALMONELLA,SHIGELLA,YERSINIA, AEROMONAS,PLESIOMONAS,CAMPYLOBACTER,E.COLI 0157,OVERGROWTHS OF S.AUREUS,YEAST AND P. AERUGINOSA REPORT STATUS FINAL 03/20/2018 [facility] Stool specimen (specimen) STOOL SPECIMEN / Unknown 03/17/2018 8:43 AM DIRECTOR SALES 03/17/2018 11:47 AM DIRECTOR SALES Martha Parker NP MICROBIOLOGY - GENERAL ORDERA BLES Final Result Performing Organization Address [facility]/State/ZIP Co de Phone Number [facility] [address] [place] [address], [place] [phone] [facility] [address] [place] [address], [place] [phone] documented in this encounter Visit Diagnoses Diagnosis Diarrhea, unspecified type- Primary Vaginal burning Other specified symptom associated with female genital organs documented in this encounter Care Teams Program Developer Relationship Specialty Start Date End Date Noemi Barnard MD PCP - General INTERNAL MEDICINE 02/22/18 07/03/18 documented as of this encounter
--- OUTSIDE RECORDS SUMMARY | 2024-04-05 00:25 | XMS_ITS | Encounter Summary ---
Author Organization [facility] Address [address] [place] [address]. [place] [address] [place] [address] Care Team Providers Care Finisher Map And Chart Name Role Phone Unavailable Primary Care Provider Unavailabl e Encounter Details Date Type Department Care Team (Late st Contact Info) Description 01/03/2018 Abstract [facility] Medical Group Family & Internal Medicine [facility] [address] [place] [address] [place] [address] [place] [address] Social History Tobacco Use Types Packs/Day Years Used Date Smoking Tobacco: Never Assessed Comments Unknown Sex and Gender Information Value Date Recorded Sex Assigned at Not on file Legal Sex Female 8:14 PM CDT Gender Identity Not on file Sexual Orientation Not on file documented as of this encounter Last Filed Vital Signs Vital Sign Reading Time Taken Comments Blood Pressure 118/72 01/03/2018 2:06 PM CDT Pulse 84 01/03/2018 2:06 PM CDT Temperature - - Respiratory Rate - - Oxygen Saturation - - Inhaled Oxygen Concentration - - Weight 58.5 kg (129 lb) 01/03/2018 2:06 PM CDT Height 157.5 cm (5' 2 ) 01/03/2018 2:06 PM CDT Body Mass Index 23.59 01/03/2018 2:06 PM CDT documented in this encounter Progress Notes * Noemi Barnard MD - 01/03/2018 2:20 PM CDT Reason For Visit Acute Follow-Up Visit Chief Complaint Pt is here to f/u today, states she was in the hospital recently. Pt has no questions or concerns on her medications at this time. Pt may need refills on metformin. History of Present Illness An 82-year-old female, followup from the hospital. She had been having intermittent abdominal pain.Had been seen, but nothing specific came up and then in November 21 this worsened. She went to the emergency room. Right-sided abdominal which had worsened. She also reported chronic diarrhea. She was a dmitted with sigmoid diverticulitis, was treated with IV antibiotics. Given piperacillin, tazobactam, and Tylenol. Two blood cultures were positive with staph epi, so there was suspicion of contamination. Her symptoms improve and she was discharged home on 11/27/2017. She was admitted with sepsis, was extremely weak, and was admitted to a swing bed to have PT and OT to increase her strength and endurance. She also has a followup plan with the GI, Dr. Burrows. Her followup labs done on 11/27/2017 revealed a white count of 3.5 which is basically her baseline, platelets up to 232, so she is here forfollowup. Feeling much better, but not quite back to normal. Diverticulitis (Brief): The patient is being seen for follow-up of a hospitalization for diverticulitis. The patient is currently asymptomatic. The pain is located in the right lower quadrant. There is no radiation. She describes this as moderate to severe and resolved. Associated symptoms: generali zed weakness. Current treatment includes Zosyn with good response. Pertinent medical history: diverticulosis. Review of Systems Constitutional: feeling tired. ENT: normal. Cardiovascular: Normal. Respiratory: Normal. Gastrointestinal: heartburn. Genitourinary: Normal. Integumentary: Normal. Musculoskeletal: joint stiffness. Neurological: Normal. Psychiatric: Normal. Active Problems 1. Abdominal pain, chronic, left lower quadrant (789.04,338.29) (R10.32,G89.29) 2. Acute diverticulitis (562.11) (K57.92) 3. Breast cancer screening (V76.10) (Z12.31) 4. Claudication (443.9) (I73.9) 5. Colitis (558.9) (K52.9) 6. Diabetes mellitus (250.00) (E11.9) 7. Diarrhea (787.91) (R19.7) 8. Dyshidrotic eczema (705.81) (L30.1) 9. GERD (gastroesophageal reflux disease) (530.81) (K21.9) 10. Hyperlipidemia (272.4) (E78.5) 11. Hypertension (401.9) (I10) 12. Hypothyroidism (244.9) (E03.9) 13. Insomnia (780.52) (G47.00) 14. Lumbago (724.2) (M54.5) 15. Otitis media (382.9) (H66.90) 16. Rash (782.1) (R21) 17. Vitamin D deficiency (268.9) (E55.9) Past Medical History 1. History of arthritis (V13.4) (Z87.39) 2. History of impacted cerumen (V12.49) (Z86.69) 3. History of malignant neoplasm of breast (V10.3) (Z85.3) 4. History of urinary tract infection (V13.02) (Z87.440) Surgical History 1. History of Abdominal Surgery 2. History of Breast Surgery Reduction Procedure 3. History of Cholecystectomy 4. History of Complete Colonoscopy 5. History of Hemorrhoidectomy 6. History of Hysterectomy 7. History of Inner Ear Surgery 8. History of Rotator Cuff Repair Family History 1. No pertinent family history 2. Family history of cardiac disorder (V17.49) (Z82.49) 3. Family history of diabetes mellitus (V18.0) (Z83.3) 4. Family history of malignant neoplasm of breast (V16.3) (Z80.3) Social History ?? Caffeine use (V49.89) (Z78.9) ?? Childbirth ?? Exercise: Walking ?? 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 Never a smoker ?? No alcohol use Current Meds 1. AmLODIPine Besylate 5 MG Oral Tablet; TAKE 1 TABLET BY MOUTH DAILY; Therapy: 06Mar2015 to (Evaluate:14Feb2018) Requested for: [id number]; Last Rx:[id number] Ordered 2. Aspirin EC 81 MG Oral Tablet Delayed Release; TAKE 1 TABLET DAILY DIRECTED; Therapy: 03Jan2018 to (Evaluate:23Gzo1916) Recorded 3. Enalapril Maleate 20 MG Oral Tablet; TAKE 1 TABLET BY MOUTH DAILY DIRECTED; Therapy: 23Jan2014 to (Evaluate:01Mar2018) Requested for: 75Zsd4359; Last Rx:[id number] Ordered 4. Levothyroxine Sodium 50 MCG Oral Tablet; TAKE 1 TABLET BY MOUTH EVERY WEDNESDAY AND WEDNESDAY; Therapy: 30Apr2014 to (Evaluate:08Feb2018) Requested for: 13Fnw3000; Last Rx:[id number] Ordered 5. Levothyroxine Sodium 75 MCG Oral Tablet; TAKE ONE TABLET BY MOUTH DAILY ON WEDNESDAY THROUGH WEDNESDAY AND 50MCG TABLET ON WEDNESDAY AND WEDNESDAY; Therapy: 10Feb2016 to (Evaluate:23Jan2018) Requested for: 58Ocl3649; Last Rx:[id number] Ordered 6. MetFORMIN HCl ER 500 MG Oral Tablet Extended Release 24 Hour; TAKE 1 TABLET BY MOUTH TWICE A DAY; Therapy: 15Feb2017 to (Evaluate:13Nov2017) Requested for: 84Qyg1963; Last Rx:[id number] Ordered 7. OneTouch Ultra Blue In Vitro Strip; 1 Strip 3X/weekly & PRN; Therapy: 23Jan2015 to (Evaluate:22Jul2015); Last Rx:[id number] Ordered 8. Pantoprazole Sodium 40 MG Oral Tablet Delayed Release; TAKE 1 TABLET BY MOUTH EVERY DAY; Therapy: 16Jan2014 to (Evaluate:06Jun2017) Requested for: 61Wpu4052; Last Rx:[id number] Ordered 9. Pravastatin Sodium 40 MG Oral Tablet; TAKE 1 TABLET BY MOUTH AT BEDTIME; Therapy: 30Apr2014 to (Evaluate:06Feb2018) Requested for: 04Zbm2665; Last Rx:[id number] Ordered 10. Vitamin D 2000 UNIT Oral Capsule; 1 PO QD; Therapy: 03Jan2018 to (Evaluate:02Feb2018) Recorded Allergies 1. No Known Drug Allergies Vitals Recorded: 03Jan2018 02:06PM Temperature 98 F Heart Rate 84 Respiration 18 Systolic 118 Diastolic 72 O2 Saturation 97 Height 5 ft 2 in Weight 129 lb BMI Calculated 23.59 BSA Calculated 1.59 Physical Exam Constitutional General appearance: No acute distress, well appearing and well nourished. Head and Face Head and face: Normal. Eyes Conjunctiva and lids: No swelling, erythema or discharge. Ears, Nose, Mouth, and Throat External inspection of ears and nose: Normal. Neck Neck: Supple, symmetric, trachea midline, no masses. Pulmonary Respiratory effort: No increased work of breathing or signs of respiratory distress. Auscultation of lungs: Clear to auscultation. Cardiovascular Auscultation of heart: Normal rate and rhythm, normal S1 and S2, no murmurs. Carotid pulses: 2+ bilaterally. Examination of extremities for edema and/or varicosities: Normal. Abdomen Abdomen: Non-tender, no masses. Liver and spleen: No hepatomegaly or splenomegaly. Lymphatic Palpation of lymph nodes in neck: No lymphadenopathy. Skin Skin and subcutaneous tissue: Normal without rashes or lesions. Neurologic Cranial nerves: Cranial nerves II-XII intact. Psychiatric Judgment and insight: Normal. Mood and affect: Normal. Counseling The patient was counseled regarding diagnostic results, instructions for management, risk factor reductions, prognosis, patient and family education, impressions, risks and benefits of treatment options, importance of compliance with treatment and Discussed being aware of diverticular symptoms early to avoid turning into sShe is doing better but will watch her diet... total time of encounter was 30 minutes and 20 minutes was spent counseling. Assessment 1. Acute diverticulitis (562.11) (K57.92) 2. Sepsis (038.9,995.91) (A41.9) 3. Colitis (558.9) (K52.9) 4. Hypertension (401.9) (I10) Plan Diabetes mellitus 1. MetFORMIN HCl ER 500 MG Oral Tablet Extended Release 24 Hour; TAKE 1 TABLET BY MOUTH TWICE A DAY Rx By: Noemi Barnard; Dispense: 90 Days ; #:180 Tablet; Refill: 1; For: Diabetes mellitus; HI = N; Transmitted To: [facility] [id number]; Last Updated By: Lianna Rousseau; 01/03/2018 4:09:00PM if having diarrhea & A1c is 6.0 try just pm dose Discussion/Summary 1. Abdominal pain. 2. Diverticulitis. 3. Sepsis, resolved. 4. Colitis. Likely cause of diarrhea per GI. 5. Hypertension. Blood pressure went up when she was in the hospital. Now, well controlled. We will refill her metformin. Of note, patient has stopped the metformin. This did not change the diarrhea. Follow up in 3 to 6 months. Would check labs before followup in spring. For diagnosis of diabetes, check CBC, CMP, lipids, A1c, TSH, vitamin B12 and folic acid. Signatures Electronically signed by : Noemi Barnard M.D.; Jan 07 2018 2:50PM BOOSTER PUMP OILER (Author) documented in this encounter Plan of Treatment Not on file documented as of this encounter Visit Diagnoses Not on filedocumented in this encounter
--- OUTSIDE RECORDS SUMMARY | 2024-04-05 00:25 | XMS_ITS | Encounter Summary ---
Author Organization [facility] Address [address] [place] [address]. [place], [place] [address] [place] [address] Care Team Providers Care Security Officer Supervisor Name Role Phone Noemi Barnard MD Primary Care Provider [phone] Joni Mckeon MD Unavailable [phone] Martha Ruiz VALIDATION SPECIALIST Primary Care Provider Andrés pederson Encounter Details Date Type Department Care Team (Late st Contact Info) Description 06/21/2018 Abstract [facility] Diagnostic Imaging [address] [place] [id number] Martha Ruiz, VALIDATION SPECIALIST Social History Tobacco Use Types Packs/Day Years [...] as of this encounter Visit Diagnoses Diagnosis Pelvic and perineal pain Unspecified symptom associated with female genital organs documented in this encounter Care Teams Security Officer Supervisor Relationship Specialty Start Date End Date Noemi Barnard MD PCP - General INTERNAL MEDICINE 02/22/18 07/03/18 Martha Ruiz NP [facility]. [address] [address] PCP - General NURSE PRACTITIONER 07/04/18 08/22/18 Joni Mckeon MD [facility]. [address] [address] [employer] Operator CARDIOVASCULAR DISEASE 07/04/18 documented as of this encounter
--- OUTSIDE RECORDS SUMMARY | 2024-04-05 00:25 | XMS_ITS | Encounter Summary ---
Author Organization [facility] Address [address] [place] [address]. [place], [place] [address] [place] [address] Care Team Providers Care Visiting Nurse Name Role Phone Unavailable Primary Care Provider Unavailabl e Encounter Details Date Type Department Care Team (Latest Contact Info) Description 01/11/2018 Abstract [facility] Medical Group , Rhianna Castaneda MD Social [...]
--- OUTSIDE RECORDS SUMMARY | 2024-04-05 00:25 | XMS_ITS | Encounter Summary ---
Author Organization [facility] Address [address] [place] [address]. [place], [place] [address] [place] [address] Care Team Providers Care Hardware Test Engineer Name Role Phone Noemi Barnard MD Primary Care Provider + [phone] Encounter Details Date Type Department Care Team (Late st Contact Info) Description 06/21/2018 Orders Only [facility] Medical Group Family & Internal Medicine [address] [address] Martha Parker, MIKE Social History Tobacco Use Types Packs/Day [...] Name Priority Date/Time Associated Diagnosis Comments US ABD COMPLETE 06/21/2018 2:39 PM CDT documented in this encounter Results * US ABD COMPLETE (06/21/2018 2:39 PM CDT) Anatomical Region Laterality Modality Abdomen Ultrasound 06/21/2018 2:39 PM CDT Narrative 06/21/2018 12:00 AM CDT ROXANA RITCHIE ? ADMIT/SERVICE DATE: 06/21/18 ?? ACCT: [id number] ?DISCHARGE DATE: ?? : 1935 ??SEX: F ?ORD SITE: [facility] ?? PT TYPE: REG CLI ? ORDERING MD: MARTHA PARKER [employer] MACHINE OPERATOR ? STUDY DATE ? REPORT # ?ORDER # ? EXT ORDER ID ?? 06/21/18 ? [id number] ? [id number] ?[id number] ? PROC CODE: ? ABDCMP ? PROCEDURE DESCRIPTION: ?? US ABDOMEN COMPLETE ? IMAGING STUDIES:US ABDOMEN COMPLETE ? DATE: 06/21/2018 12:41 PM ? INDICATION: ??OTHER - US ABDOMINAL, SUPRAPUBIC PAIN ??. ? COMPARISON: CT ABDOMEN PELVIS 11/21/2017. ? TECHNIQUE: EXAMINATION PERFORMED ULTRASONOGRAPHY USING GRAYSCALE WITH COLOR FLOW ??AND SPECTRAL DOPPLER. SELECTED IMAGES SUBMITTED FOR INTERPRETATION. WORKSHEET COMPLETED. ? IMPRESSION: ? CHOLECYSTECTOMY. THE COMMON DUCT DIAMETER MEASURES LESS THAN 4 MM. ? INCREASED ECHOGENICITY THROUGHOUT THE LIVER SUGGESTING HEPATIC FATTY INFILTRATION. NO INTRAHEPATIC DUCTAL DILATATION OR FOCAL HEPATIC MASS. NORMAL DIRECTIONAL HEPATIC AND PORTAL VENOUS FLOW. ? KIDNEYS HAVE NORMAL POSITION IN SIZE. NO HYDRONEPHROSIS. THE RIGHT KIDNEY MEASURES 82 X 46 X 57 MM AND THE LEFT KIDNEY MEASURES 84 X 40 X 40 MM. ? THE SPLEEN IS GROSSLY UNREMARKABLE MEASURING 10 X 4.6 CM ? LIMITED VISUALIZATION OF THE PANCREAS. ? ELECTRONICALLY SIGNED BY JANE REEVES MD ON 06/21/2018 2:42 PM ? Procedure Note Md Generic Leonel, - 06/21/2018 ROXANA RITCHIE ADMIT/SERVICE DATE:06/21/18 ACCT: [id number] DISCHARGE DATE: : 1935 SEX: F ORD SITE: [facility] PT TYPE: REG CLI ORDERING MD:MARTHA PARKER NP STUDY DATE REPORT # ORDER # EXT ORDER ID 06/21/18 [id number] PROC CODE: ABDCMP PROCEDURE DESCRIPTION: US ABDOMEN COMPLETE IMAGING STUDIES:US ABDOMEN COMPLETE DATE: 06/21/2018 12:41 PM INDICATION: OTHER - US ABDOMINAL, SUPRAPUBIC PAIN . COMPARISON: CT ABDOMEN PELVIS 11/21/2017. TECHNIQUE: EXAMINATION PERFORMED ULTRASONOGRAPHY USING GRAYSCALE WITHCOLOR FLOW AND SPECTRAL DOPPLER. SELECTED IMAGES SUBMITTED FOR INTERPRETATION. WORKSHEETCOMPLETED. IMPRESSION: CHOLECYSTECTOMY. THE COMMON DUCT DIAMETER MEASURES LESS THAN 4 MM. INCREASED ECHOGENICITY THROUGHOUT THE LIVER SUGGESTING HEPATIC FATTYINFILTRATION. NO INTRAHEPATIC DUCTAL DILATATION OR FOCAL HEPATIC MASS. NORMAL DIRECTIONAL HEPATIC ANDPORTAL VENOUS FLOW. KIDNEYS HAVE NORMAL POSITION IN SIZE. NO HYDRONEPHROSIS. THE RIGHT KIDNEYMEASURES 82 X 46 X 57 MM AND THE LEFT KIDNEY MEASURES 84 X 40 X 40 MM. THE SPLEEN IS GROSSLY UNREMARKABLE MEASURING 10 X 4.6 CM LIMITED VISUALIZATION OF THE PANCREAS. ELECTRONICALLY SIGNED BY JANE REEVES MD ON 06/21/2018 2:42 PM Martha Parker NP ULTRASOUND Final Result documented in this encounter Visit Diagnoses Not on filedocumented in this encounter Care Teams Hardware Test Engineer Relationship Specialty Start Date End Date Noemi Barnard MD PCP - General INTERNAL MEDICINE 02/22/18 07/03/18 documented as of this encounter
--- OUTSIDE RECORDS SUMMARY | 2024-04-05 00:25 | XMS_ITS | Encounter Summary ---
Author Organization [facility] Address [address] [place] [address]. [place] [address] [place] [address] Care Team Providers Care [place] Actor Name Role Phone Noemi Barnard MD Primary Care Provider + [phone] Encounter Details Date Type Department Care Team (Late st Contact Info) Description 12/27/2017 Abstract [facility] [address] [place] [address] NP Social History Tobacco Use Types Packs/Day [...] Associated Diagnosis Comments BASIC METABOLIC PANEL Routine 12/27/2017 8:17 AM CDT CULTURE, BACTERIA, BLOOD Routine 12/27/2017 8:17 AM CDT CBC W/DIFF AUTOMATED Routine 12/27/2017 8:17 AM CDT documented in this encounter Results * CULTURE, BACTERIA, BLOOD (12/27/2017 8:17 AM CDT) SPEC DESCRIPTION BLOOD 12/27/2017 8:[address] [facility] SPECIAL REQUESTS NO SPECIAL REQUEST 12/27/2017 8:[address] [facility] CULTURE RESULT NO GROWTH 5 DAYS 01/01/2018 10:[address] [facility] BLOOD SPECIMEN OBTAINED FOR BLOOD CULTURE / Unknown 12/27/2017 8:17 AM CDT 12/27/2017 8:18 AM CDT us Generic Conversion Md [facility] - GENERAL ORDERABLES Final Result [facility] [address] [place] [address], [place] [phone] [facility] [address] [place] [address], [place] [phone] * (ABNORMAL) CBC W/DIFF AUTOMATED (12/27/2017 8:17 AM CDT) WBC 3.3(L) 4.4 - 11.0 x10'3/uL 12/27/2017 8:[address] [facility] RBC 4.67 4.50 - 5.10 x10'6/uL 12/27/2017 8:[address] [facility] HGB 12.5 12.3 - 15.3 G/DL 12/27/2017 8:[address] [facility] HCT 39.0 35.9 - 44.6 % 12/27/2017 8:[address] [facility] MCV 83.5 80.0 - 96.0 FL 12/27/2017 8:[address] [facility] MCH 26.8 25.3 - 30.9 PG 12/27/2017 8:[address] [facility] MCHC 32.1 31.0 - 34.1 G/DL 12/27/2017 8:29 AM [facility] RDW 14.8 12.4 - 15.1 % 12/27/2017 8:29 AM [facility] PLT 194 151 - 353 x10'3/uL 12/27/2017 8:29 AM [facility] MPV 9.4(L) 9.6 - 12.0 FL 12/27/2017 8:[address] [facility] RBC MORPHOLOGY NORMAL 12/27/2017 8:29 AM [facility] PLT MORPH. NORMAL 12/27/2017 8:29 AM [facility] WBC MORPHOLOGY NORMAL 12/27/2017 8:29 AM [facility] LYMPHOCYTES % 24.0 15.8 - 45.0 % 12/27/2017 8:29 AM [facility] NEUTROPHILS % 65.1 42.1 - 71.9 % 12/27/2017 8:[address] [facility] MONOCYTES % 6.7 5.7 - 12.5 % 12/27/2017 8:29 AM [facility] EOSINOPHILS 3.0 0.0 - 5.6 % 12/27/2017 8:29 AM [facility] BASOPHILS 0.9 0.0 - 1.3 % 12/27/2017 8:29 AM [facility] ABS. NEUTROPHILS TOTAL 2.14 1.40 - 6.00 x10'3/uL 12/27/2017 8:29 AM [facility] IMMATURE GRANS % 0.3 0.0 - 0.5 % 12/27/2017 8:29 AM [facility] ABS. LYMPHOCYTES 0.79(L) 0.80 - 4.70 x10'3/uL 12/27/2017 8:[address] [facility] 12/27/2017 8:17 AM CDT 12/27/2017 8:18 AM CDT us Generic Conversion Md [facility] Final R esult [facility] [address] [place] [address], * (ABNORMAL) BASIC METABOLIC PANEL (12/27/2017 8:17 AM CDT) GLUCOSE 94 70 - 99 MG/DL 12/27/2017 8:[address] [facility] BUN 15 7 - 18 MG/DL 12/27/2017 8:[address] [facility] CREATININE S/P/B 0.79 0.55 - 1.02 MG/DL 12/27/2017 8:[address] [facility] SODIUM S/P/B 144 136 - 145 MMOL/L 12/27/2017 8:[address] [facility] POTASSIUM S/P/B 4.1 3.5 - 5.1 MMOL/L 12/27/2017 8:[address] [facility] CHLORIDE S/P/B 106 100 - 108 MMOL/L 12/27/2017 8:[address] [facility] CO2 28.3 21 - 32 MMOL/L 12/27/2017 8:[address] [facility] CALCIUM S/P/B 9.3 8.5 - 10.1 MG/DL 12/27/2017 8:[address] [facility] ANION GAP 13.8 8 - 20 MMOL/L 12/27/2017 8:[address] [facility] BUN CREATININE RATIO 19.0 6 - 26 12/27/2017 8:[address] [facility] EGFR NON-AFR. AMER. 70(L) >90 ML/MIN/1.7 3 M2 12/27/2017 8:[address] [facility] EGFR AFR. AMER. 81(L) >90 ML/MIN/1.7 3 M2 12/27/2017 8:[address] [facility] Comment: NOTE: eGFR is not calculated for patients <18 years of age. This is an estimated GFR (CKD EPI) and should not be used for calculating drug doses. 12/27/2017 8:17 AM CDT 12/27/2017 8:18 AM CDT us Generic Conversion Md [facility] Final R esult [facility] [address] [place] [id number], [place] [phone] documented in this encounter Visit Diagnoses Diagnosis Diverticulitis of intestine without perforation or abscess without bleeding Diverticulitis of colon (without mention of hemorrhage) documented in this encounter Care Teams [place] Actor Relationship Specialty Start Date End Date Noemi Barnard MD PCP - General INTERNAL MEDICINE 02/22/18 07/03/18 documented as of this encounter
--- OUTSIDE RECORDS SUMMARY | 2024-04-05 00:25 | XMS_ITS | Encounter Summary ---
Author Organization [facility] Address [address] [place] [address]. [place], [place] [address] [place] [address] Care Team Providers Care Cash Shortage Investigator Name Role Phone Noemi Barnard MD Primary Care Provider + [phone] Reason for Visit * Reason Comments Consult Encounter Details Date Type Department Care Team (Latest Contact Info) Description 01/12/2018 Scan HEALTH INFO SRVCS Scanned, Documents Consult Social History Tobacco Use Types Packs/Day Years [...] on filedocumented in this encounter Care Teams Cash Shortage Investigator Relationship Specialty Start Date End Date Noemi Barnard MD PCP - General INTERNAL MEDICINE 02/22/18 07/03/18 documented as of this encounter
--- OUTSIDE RECORDS SUMMARY | 2024-04-05 00:25 | XMS_ITS | Encounter Summary ---
Author Organization [facility] Address [address] [place] [address]. [place], [place] [address] [place] [address] Care Team Providers Care Marketing Campaign Analyst Name Role Phone Noemi Barnard MD Primary Care Provider [phone] Encounter Details Date Type Department Care Team (Late st Contact Info) Description 02/22/2018 Orders Only [facility] Medical Group Family & Internal Medicine [address] [address] Herlinda Xiao MA Social History Tobacco Use Types Packs/Day Years [...] on filedocumented in this encounter Care Teams Marketing Campaign Analyst Relationship Specialty Start Date End Date Noemi Barnard MD PCP - General INTERNAL MEDICINE 02/22/18 07/03/18 documented as of this encounter
--- OUTSIDE RECORDS SUMMARY | 2024-04-05 00:25 | XMS_ITS | Encounter Summary ---
Author Organization [facility] Address [address] [place] [address]. [place], [place] [address] [place] [address] Care Team Providers Care Neck Fitter Name Role Phone Joni Mckeon MD Unavailable [phone] Martha Ruiz NP Primary Care Provider Andrés pederson Encounter Details Date Type Department Care Team (Late st Contact Info) Description 07/04/2018 Orders Only [facility] Medical Group Family & Internal Medicine [address] [address] Herlinda Xiao MA Social History [...] on filedocumented in this encounter Care Teams Neck Fitter Relationship Specialty Start Date End Date Martha Ruiz NP [facility]. [place] [address] [place] [address] PCP - General NURSE PRACTITIONER 07/04/18 08/22/18 Joni Mckeon MD [facility]. [address] [address] Christopher Lunch Counter Manager CARDIOVASCULAR DISEASE 07/04/18 documented as of this encounter
--- OUTSIDE RECORDS SUMMARY | 2024-04-05 00:25 | XMS_ITS | Encounter Summary ---
Author Organization [facility] Address [address] [place] [address]. [place], [place] [address] [place] [address] Care Team Providers Care Early Childhood Assistant Name Role Phone Noemi Barnard MD Primary Care Provider [phone] Reason for Visit * Reason Comments Outside Record (SCAN) PATIENT RECORD [facility] Encounter Details Date Type Department Care Team (Late Contact Info) Description 02/04/2018 Scan HEALTH INFO SRVCS Scanned, Documents Outside Record (SCAN) (PATIENT RECORD [facility]) Social History Tobacco Use Types Packs/Day Years [...] on filedocumented in this encounter Care Teams Early Childhood Assistant Relationship Specialty Start Date End Date Noemi Barnard MD PCP - General INTERNAL MEDICINE 02/22/18 07/03/18 documented as of this encounter
--- OUTSIDE RECORDS SUMMARY | 2024-04-05 00:25 | XMS_ITS | Encounter Summary ---
Author Organization [facility] Address Formerly [facility] [place] [address] [place] [address] Care Team Providers Care Assistant Property Manager Name Role Phone Noemi Jade MD Primary Care Provider + [phone] Reason for Visit * Reason Comments Hypertension C/o elevated BP that has been since earlier this month. Patient also has been very SOB with exertion. More fatigued than usual x 2 months. Hard time concentrating. Encounter Details Date Type Department Care Team (Late st Contact Info) Description 06/15/2018 2:40 PM CDT Office Visit [facility] Family & Internal Medicine [address] [address] Martha Parker, MIKE Hypertension (C/o elevated BP that has been since earlier this month. Patient also has been very SOB with exertion. More fatigued than usual x 2 months. Hard time concentrating. ) Social History Tobacco Use Types Packs/Day [...] Sign Reading Time Taken Comments Blood Pressure 180/72 06/15/2018 2:37 PM CDT Pulse 70 06/15/2018 2:37 PM CDT Temperature 36.8 ??C (98.3 ??F) 06/15/2018 2:37 PM CD T Respiratory Rate 22 06/15/2018 2:37 PM CDT Oxygen Saturation 98% 06/15/2018 2:37 PM CDT Inhaled Oxygen Concentration - - Weight 60.3 kg (133 lb) 06/15/2018 2:37 PM CDT Height 157.5 cm (5' 2 ) 06/15/2018 2:37 PM CDT Body Mass Index 24.33 06/15/2018 2:37 PM CDT documented in this encounter Patient Instructions * Patient Instructions* Martha Parker NP - 06/15/2018 2:40 PM CDT Lab testing done in the office today Concern with the elevated B/P-- Amlodipine 5 mg will be two per day. Return to the office in one to two days Go to the ER if having any changes in Level of consciousness or chest pain increased fatigue. Hx of diverticulitis, concern may be lower abd. Pain Cipro 500 mg po BID x 7 days. Otitis externa Ofloxacin 3% 5 gtts BID in right ear. documented in this encounter Progress Notes * Martha Parker NP - 06/15/2018 2:40 PM CDT Reason for Visit: Hypertension (C/o elevated BP that has been since earlier this month. Patient also has been very SOB with exertion. More fatigued than usual x 2 months. Hard time concentrating. ) History of Present Illness: Elevated B/P for actually couple weeks Being check weekly at housing. Noted elevated systolic pressure and normal diastolic. Pt reports having shortness of breath, feeling like she is not remembering clearly, occasional chest pain and reports GERD. Pt has hx of serious diverticulitis that was not treated until pt was septic and was in the hospital March 2018. Pt has had hx of UTI and was [place] for that at this visit and it was positive for blood all other markers are negative. Supra pubic pain Hx of diverticulitis UTI done no infection small amount of blood. Pt has chronic diarrhea. Pt is taking metformin but has had diarrhea for long time even before the metformin. Daughter is with the ptand reports has noticed some change in pt general behavior, more anxious and resistant when family request things from her. Abd. Is tender and soft not distended, not passing gas. Pt does report some mucous in the stools at times. Pt is reported as ache sometimes has sharp spasmodic type pain. Reports 3 out of 10 today. Pt is also reporting that has feeling does not empty her bladder. Will feel like has to urinate and then will go a very small amount. Pt does report does not drink enough water and concern for pt may be dehydrated with the chronic diarrhea. Otitis externa, Wears hearing aid and states in the right ear is having drainage. Ear canal is red. Pt is not able to wear the hearing aid without pain. Pt reports having drainage. ROS: Review of Systems Constitutional: Positive for [...] WEDNESDAY., Disp: 66 tablet, Rfl: 0 ??? metFORMIN 500 MG 24 hr tablet, Take 1 tablet by mouth 2 (two) times daily., Disp: , Rfl: ??? ofloxacin 0.3 % otic solution, Place 5 drops into the right ear 2 (two) times daily for 7 days., Disp: 5 mL, Rfl: 0 ??? PRAVASTATIN 40 MG tablet, TAKE 1 TABLET BY MOUTH AT BEDTIME, Disp: 90 tablet, Rfl: 0 ??? RANITIDINE 300 MG tablet, TAKE ONE TABLET BY MOUTH AT BEDTIME NIGHTLY, Disp: 90 tablet, Rfl: 0 ??? Melatonin 10 MG Cap, Take one tablet by mouth at bedtime as needed for sleep., Disp: , Rfl: ??? pantoprazole 40 MG tablet, Take 1 tablet by mouth daily., Disp: , Rfl: No Known Allergies Past Medical History: Diagnosis [...] file Gets together: Not on file Attends mormonism service: Not on file Active member of [...] over her high blood pressure Filed Vitals: 06/15/18 1437 BP: 180/72 Pulse: 70 Resp: 22 Temp: 98.3 ??F (36.8 ??C) TempSrc: Oral SpO2: 98% Weight: 60.3 kg (133 lb) Height: 5' 2 (1.575 m) Assessment Encounter Diagnose(s) ICD-10-CM ICD-9-CM SNOMED CT(R) 1. Essential hypertension I10 401.9 ESSENTIAL HYPERTENSION CBC W/DIFF AUTOMATED COMPREHENSIVE METABOLIC PANEL CBC W/DIFF AUTOMATED COMPREHENSIVE METABOLIC PANEL VENIPUNC ARM DRAW 2. Hypothyroidism, unspecified type E03.9 244.9 HYPOTHYROIDISM TSH W/REFLEX TSH W/REFLEX VENIPUNC ARM DRAW 3. Suprapubic pain R10.2 789.09 SUPRAPUBIC PAIN URINALYSIS AUTO DIP ciprofloxacin (CIPRO) 500 MG tablet US ABD COMPLETE 4. Diverticulitis K57.92 562.11 DIVERTICULITIS ciprofloxacin (CIPRO) 500 MG tablet US ABD COMPLETE 5. Acute otitis externa of right ear, unspecified type H60.501 380.10 ACUTE OTITIS EXTERNA OF RIGHTEAR ofloxacin 0.3 % otic solution Recommendations and Plan: Outpatient Encounter Medications as of 06/15/2018 Medication Sig Dispense Refill ??? amlodipine 5 [...] WEDNESDAY AND WEDNESDAY. 66 tablet 0 ??? metFORMIN 500 MG 24 hr tablet Take 1 tablet by mouth 2 (two) times daily. ??? ofloxacin 0.3 % otic solution Place 5 drops into the right ear 2 (two) times daily for 7 days. 5 mL 0 ??? PRAVASTATIN 40 MG tablet TAKE 1 TABLET BY MOUTH AT BEDTIME 90 tablet 0 ??? RANITIDINE 300 MG tablet TAKE ONE TABLET BY MOUTH AT BEDTIME NIGHTLY 90 tablet 0 ??? Melatonin 10 MG Cap Take one tablet by mouth at bedtime as needed for sleep. ??? pantoprazole 40 MG tablet Take 1 tablet by mouth daily. ??? [DISCONTINUED] ranitidine 300 MG tablet Take 1 tablet by mouth nightly at bedtime. 1 No facility-administered encounter medications on file as of 06/15/2018. Roxana was seen today for hypertension. Diagnoses and all orders for this visit: Essential hypertension - CBC W/DIFF AUTOMATED; Future - COMPREHENSIVE METABOLIC PANEL; Future - CBC W/DIFF AUTOMATED - COMPREHENSIVE METABOLIC PANEL - VENIPUNC ARM DRAW Use Amlodipine 10 mg po daily for next couple days. Go to the ER should the symptoms continue with the chest pain and shortness of breath worsen. Hypothyroidism, unspecified type - TSH W/REFLEX; Future - TSH W/REFLEX - VENIPUNC ARM DRAW Suprapubic pain - URINALYSIS AUTO DIP - ciprofloxacin (CIPRO) 500 MG tablet; Take 1 tablet (500 mg total) by mouth 2 (two) times daily for 7 days. - US ABD COMPLETE; Future Diverticulitis - ciprofloxacin (CIPRO) 500 MG tablet; Take 1 tablet (500 mg total) by mouth 2 (two) times daily for 7 days. - US ABD COMPLETE; Future Acute otitis externa of right ear, unspecified type - ofloxacin 0.3 % otic solution; Place 5 drops into the right ear 2 (two) times daily for 7 days. Lab testing done in the office today Concern with the elevated B/P-- Amlodipine 5 mg will be two per day. Return to the office in one to two days Go to the ER if having any changes in Level of consciousness or chest pain increased fatigue. Hx of diverticulitis, concern may be lower abd. Pain Cipro 500 mg po BID x 7 days. MARTHA PARKER NP 06/15/2018 5:17 PM Cosigned by Noemi Jade MD at 06/16/2018 11:40 AM CDT Associated attestation - Noemi Jade MD - 06/16/2018 11:40 AM CDT I, NOEMI JADE MD, performed an examination of the patient and discussed the management with the Advanced Practice Provider (JEREMÍAS). I reviewed the JEREMÍAS's progress note and agree with the findingsand plan of care, except as I have documented. documented in this encounter Plan of Treatment Scheduled Orders Name Type Priority Associated Diagnoses Orde r Schedule VENIPUNC ARM DRAW Procedures Routine Essential hypertension Hypothyroidism, unspecified type Ordered: 06/15/2018 documented as of this encounter Procedures Procedure Name Priority Date/Time Associated Diagnosis Comments TSH W/REFLEX Routine 06/15/2018 3:12 PM CDT Hypothyroidism, unspecified type COMPREHENSIVE METABOLIC PANEL Routine 06/15/2018 3:12 PM CDT Essential hypertension CBC W/DIFF AUTOMATED Routine 06/15/2018 3:12 PM CDT Essential hypertension URINALYSIS AUTO DIP Routine 06/15/2018 Suprapubic pain documented in this encounter Results * TSH W/REFLEX (06/15/2018 3:12 PM CDT) TSH 0.975 0.358 - 3.74 uIU/ML [facility] Comment: HIGH DOSES OF BIOTIN MAY INTERFERE WITH THIS TEST RESULT. CORRELATION TO CLINICAL HISTORY AND PRESENTATION RECOMMENDED. FREE T4 NOT INDICATED 06/15/2018 3:12 PM CDT 06/15/2018 7:45 PM CDT us Martha Parker NP LABORATORY Final Result [facility] [address] [place] [address], * (ABNORMAL) COMPREHENSIVE METABOLIC PANEL (06/15/2018 3:12 PM CDT) GLUCOSE 95 70 - 99 MG/DL [facility] BUN 16 7 - 18 MG/DL [facility] CREATININE S/P/B 0.89 0.55 - 1.02 MG/DL [facility] SODIUM S/P/B 142 136 - 145 MMOL/L [facility] POTASSIUM S/P/B 4.7 3.5 - 5.1 MMOL/L [facility] CHLORIDE S/P/B 104 100 - 108 MMOL/L [facility] CO2 27.3 21 - 32 MMOL/L [facility] CALCIUM S/P/B 9.7 8.5 - 10.1 MG/DL [facility] BILIRUBIN TOTAL S/P/B 0.4 0.2 - 1.2 MG/DL [facility] TOTAL PROTEIN S/P/B 6.8 6.4 - 8.2 G/DL [facility] ALBUMIN S/P/B 3.9 3.4 - 5.0 G/DL [facility] AST 15 15 - 37 U/L [facility] ALT 18 14 - 55 U/L [facility] ALKALINE PHOSPHATASE S/P/B 86 50 - 136 U/L [facility] ANION GAP 15.4 8 - 20 MMOL/L [facility] BUN CREATININE RATIO 18.0 6 - 26 [facility] A/G RATIO 1.3 1.0 - 2.0 RATIO [facility] EGFR NON-AFR. AMER. 60(L) >90 ML/MIN/1.7 3 M2 [facility] EGFR AFR. AMER. 70(L) >90 ML/MIN/1.7 3 M2 [facility] Comment: NOTE: eGFR is not calculated for patients <18 years of age. This is an estimated GFR (CKD EPI) and should not be used for calculating drug doses. 06/15/2018 3:12 PM CDT 06/15/2018 7:45 PM CDT Martha Parker NP LABORATORY Final Result [facility] [address] [place] [id number], * (ABNORMAL) CBC W/DIFF AUTOMATED (06/15/2018 3:12 PM CDT) WBC 4.3(L) 4.4 - 11.0 x10'3/uL [facility] RBC 4.66 4.50 - 5.10 x10'6/uL [facility] HGB 12.6 12.3 - 15.3 G/DL [facility] HCT 39.9 35.9 - 44.6 % [facility] MCV 85.6 80.0 - 96.0 FL [facility] MCH 27.0 25.3 - 30.9 PG [facility] MCHC 31.6 31.0 - 34.1 G/DL [facility] RDW 14.3 12.4 - 15.1 % [facility] PLT 212 151 - 353 x10'3/uL [facility] MPV 10.3 9.6 - 12.0 FL [facility] RBC [facility]PHOLOGY [facility] PLT MORPH. NORMAL [facility] WBC [facility] LYMPHOCYTES % 20.6 15.8 - 45.0 % [facility] NEUTROPHILS % 68.4 42.1 - 71.9 % [facility] MONOCYTES % 8.5 5.7 - 12.5 % [facility] EOSINOPHILS 1.6 0.0 - 5.6 % [facility] BASOPHILS 0.7 0.0 - 1.3 % [facility] ABS. NEUTROPHILS TOTAL 2.96 1.40 - 6.00 x10'3/uL [facility] IMMATURE GRANS % 0.2 0.0 - 0.5 % [facility] ABS. LYMPHOCYTES 0.89 0.80 - 4.70 x10'3/uL [facility] 06/15/2018 3:12 PM CDT 06/15/2018 7:45 PM CDT Martha Parker NP LABORATORY Final Result [facility] [address] [address], * URINALYSIS AUTO DIP (06/15/2018) COLOR (U) YELLOW [facility] ([address]), [place] TRANSPARENCY CLEAR [address] ([address]), [place] GLUCOSE (U) NEGATIVE NEGATIVE MG/DL [facility] ([address]), [place] BILIRUBIN (U) NEGATIVE NEGATIVE [address] ([address]), [place] KETONES MG/DL (U) NEGATIVE NEGATIVE MG/DL [facility] ([address]), [place] SPECIFIC GRAVITY (U) 1.020 1.001 - 1.[address] ([address]), [place] BLOOD (U) SMALL (1+, Hemolyzed) NEGATIVE [address] ([address]), [place] U PH 5.5 5.0 - 9.[address] ([address]), [place] PROTEIN (U) NEGATIVE mg/dL [facility] ([address]), [place] UROBILINOGEN 0.2 0.2 - 1.0 EU/dL = mg/dL [facility] ([address]), [place] NITRITES NEGATIVE NEGATIVE MG/DL [facility] ([address]), [place] LEUKOCYTES (U) NEGATIVE NEGATIVE [address] ([address]), [place] URINE SPECIMEN OBTAINED BY CLEAN CATCH PROCEDURE / Unknown 06/15/2018 us Martha Parker APPLICATION SUPPORT ANALYST URINE ORDERABLES Final Result [address] ([id number]), [place] [address] [place] [address], documented in this encounter Visit Diagnoses Diagnosis Essential hypertension- Primary Unspecified essential hypertension Hypothyroidism, unspecified type Suprapubic pain Abdominal pain, other specified site Diverticulitis Diverticulitis of colon (without mention of hemorrhage) Acute otitis externa of right ear, unspecified type documented in this encounter Care Teams Assistant Property Manager Relationship Specialty Start Date End Date Noemi Jade MD PCP - General INTERNAL MEDICINE 02/22/18 07/03/18 documented as of this encounter
--- OUTSIDE RECORDS SUMMARY | 2024-04-05 00:25 | XMS_ITS | Encounter Summary ---
Author Organization [facility] Address [address] [place] [address]. [place], [place] [address] [place] [address] Care Team Providers Care Waiter/Waitress Tavern Name Role Phone Noemi Barnard MD Primary Care Provider + [phone] Encounter Details Date Type Department Care Team (Late st Contact Info) Description 06/27/2018 9:20 AM CDT Laboratory Only [facility] Family & Internal Medicine [address] [address] Social History Tobacco Use Types [...] r Schedule VENIPUNC ARM DRAW Procedures Routine Diabetes mellitus ([facility]) Hyperlipidemia Ordered: 06/27/2018 documented as of this encounter Procedures Procedure Name Priority Date/Time Associated Diagnosis Comments HEMOGLOBIN, GLYCOSYLATED Routine 06/27/2018 10:32 AM CDT Diabetes mellitus ([facility]) LIPID PANEL Routine 06/27/2018 10:32 AM CDT Hyperlipidemia documented in this encounter Results * (ABNORMAL) HEMOGLOBIN, GLYCOSYLATED (06/27/2018 10:32 AM CDT) HGB A1C 6.4(H) <5.7 % [facility] Comment: INCREASED RISK OF DIABETES <5.7% ?NON-DIABETES 5.7-6.4% INCREASED RISK FOR FUTURE DIABETES > OR = 6.5 CONSISTENT WITH DIABETES STANDARDS OF MEDICAL CARE IN DIABETES-2010 DIABETES CARE, 33(SUPP 1): S1-S61,2010 06/27/2018 10:3 2 AM CDT 06/27/2018 8:56 PM CDT Martha Ruiz NP LABORATORY Final Result Performing Organization Address City/State/[facility] Co de Phone Number [facility] [address] [place] [address], * LIPID PANEL (06/27/2018 10:32 AM CDT) CHOLESTEROL 150 <200.0 MG/DL [facility] TRIGLYCERIDES 70 <150 MG/DL [facility] HDL 75 >40.0 MG/DL [facility] LDL (CALCULATED) 61 <100 MG/DL [facility] NON HDL CHOLESTEROL 75 <130 MG/DL [facility] CHOL/HDL RATIO 2.0 0.0 - 4.5 [facility] VLDL CALCULATION 14 5 - 55 MG/DL [facility] LIPID INTERPRETATION [facility] Comment: NIH CONCENSUS REPORT RECOMMENDATIONS: [...] 2 AM CDT 06/27/2018 8:56 PM CDT Martha Ruiz NP LABORATORY Final Result [facility] [address] [place] [address], documented in this encounter Visit Diagnoses Diagnosis Diabetes mellitus (CMS/HCC HHS/HCC)- Primary Type II or unspecified type diabetes mellitus without mention of complication, not stated as uncontrolled Hyperlipidemia Other and unspecified hyperlipidemia documented in this encounter Care Teams Waiter/Waitress Tavern Relationship Specialty Start Date End Date Noemi Barnard MD PCP - General INTERNAL MEDICINE 02/22/18 07/03/18 documented as of this encounter
--- OUTSIDE RECORDS SUMMARY | 2024-04-05 00:25 | XMS_ITS | Encounter Summary ---
Author Organization [facility] Address [facility] [place] [address] [place] [address] Care Team Providers Care Front Desk Clerk Name Role Phone Noemi Barnard MD Primary Care Provider + [phone] Joni Mckeon MD Unavailable [phone] Martha Ruiz RADIAL DRILL PRESS OPERATOR FOR PLASTIC Primary Care Provider Andrés pederson Encounter Details Date Type Department Care Team (Latest Contact Info) Description 01/29/2018 Scan [facility] SR[facility]CS Scanned, Documents Social History Tobacco Use Types Packs/Day Years Used Date Smoking Tobacco: Never Assessed AUDIT-C Answer Date Recorded Frequency of Alcohol Consumption Never 02/22/2018 Average Number of Drinks Not on file 018 Frequency of Binge Drinking Not on file 02/04 PHQ-2 Answer Date Recorded PHQ-2 Score 1 07/05/2018 Comments Unknown Sex and Gender Information Value Date Recorded Sex Assigned at Not on file Legal Sex Female 8:14 PM CDT Gender Identity Not on file Sexual Orientation Not on file documented as of this encounter Plan of Treatment Not on file documented as of this encounter Visit Diagnoses Not on filedocumented in this encounter Care Teams Front Desk Clerk Relationship Specialty Start Date End Date Noemi Barnard MD PCP - General INTERNAL MEDICINE 02/22/18 07/03/18 Martha Ruiz, RADIAL DRILL PRESS OPERATOR FOR PLASTIC [facility]. [address] [address] PCP - General NURSE PRACTITIONER 07/04/18 08/22/18 Joni Mckeon MD [facility]. [address] [address] [place] Bead Cutter CARDIOVASCULAR DISEASE 07/04/18 documented as of this encounter
--- OUTSIDE RECORDS SUMMARY | 2024-04-05 00:25 | XMS_ITS | Encounter Summary ---
Author Organization [facility] Address [address] [place] [address]. [place], [place] [address] [place] [address] Care Team Providers Care Saxophone Assembler Name Role Phone Unavailable Primary Care Provider Unavailabl e Encounter Details Date Type Department Care Team (Latest Contact Info) Description 02/08/2018 Scan [facility] , Rhianna Castaneda MD Social [...]
--- OUTSIDE RECORDS SUMMARY | 2024-04-05 00:25 | XMS_ITS | Encounter Summary ---
Author Organization [facility] Address [address] [place] [address]. [place], [place] [address] [place] [address] Care Team Providers Care Embroiderer Hand Name Role Phone Unavailable Primary Care Provider Unavailabl e Encounter Details Date Type Department Care Team (Latest Contact Info) Description 12/21/2017 Abstract [facility] , Rhianna Castaneda MD Social [...]
--- OUTSIDE RECORDS SUMMARY | 2024-04-05 00:25 | XMS_ITS | Encounter Summary ---
Author Organization [facility] Address [address] [place] [address]. [place], [place] [address] [place] [address] Care Team Providers Care Clinical Statistical Programmer Name Role Phone Noemi Barnard MD Primary Care Provider Joni Mckeon MD Unavailable [phone] Martha Ruiz EMPLOYMENT CLERK Primary Care Provider Andrés pederson Encounter Details Date Type Department Care Team (Late st Contact Info) Description 06/15/2018 Abstract [facility] [address] [place], [place] [id number] Martha Ruiz, EMPLOYMENT CLERK Social History Tobacco Use Types Packs/Day [...] TSH W/REFLEX Routine 06/15/2018 3:12 PM CDT COMPREHENSIVE METABOLIC PANEL Routine 06/15/2018 3:12 PM CDT CBC W/DIFF AUTOMATED Routine 06/15/2018 3:12 PM CDT documented in this encounter Results * TSH W/REFLEX (06/15/2018 3:12 PM CDT) TSH 0.975 0.358 - 3.74 uIU/ML 06/15/2018 8:54 PM CDT [facility] Comment: HIGH DOSES OF BIOTIN MAY INTERFERE WITH THIS TEST RESULT. CORRELATION TO CLINICAL HISTORY AND PRESENTATION RECOMMENDED.FREE T4 NOT INDICATED SERUM OR PLASMA SPECIMEN / Unknown 06/15/2018 3:12 PM CDT 06/15/2018 7:45 PM CDT us Generic Conversion Md [facility] Final R esult [facility] [address] [place] [address], [place] [phone] * (ABNORMAL) COMPREHENSIVE METABOLIC PANEL (06/15/2018 3:12 PM CDT) Pathologist [facility] GLUCOSE 95 70 - 99 MG/DL 06/15/2018 8:54 PM CDT [facility] BUN 16 7 - 18 MG/DL 06/15/2018 8:54 PM CDT [facility] CREATININE S/P/B 0.89 0.55 - 1.02 MG/DL 06/15/2018 8:54 PM CDT [facility] SODIUM S/P/B 142 136 - 145 MMOL/L 06/15/2018 8:54 PM CDT [facility] POTASSIUM S/P/B 4.7 3.5 - 5.1 MMOL/L 06/15/2018 8:54 PM CDT [facility] CHLORIDE S/P/B 104 100 - 108 MMOL/L 06/15/2018 8:54 PM CDT [facility] CO2 27.3 21 - 32 MMOL/L 06/15/2018 8:54 PM [facility] CALCIUM S/P/B 9.7 8.5 - 10.1 MG/DL 06/15/2018 8:54 PM [facility] BILIRUBIN TOTAL S/P/B 0.4 0.2 - 1.2 MG/DL 06/15/2018 8:54 PM [facility] TOTAL PROTEIN S/P/B 6.8 6.4 - 8.2 G/DL 06/15/2018 8:54 PM [facility] ALBUMIN S/P/B 3.9 3.4 - 5.0 G/DL 06/15/2018 8:54 PM [facility] AST 15 15 - 37 U/L 06/15/2018 8:54 PM [facility] ALT 18 14 - 55 U/L 06/15/2018 8:54 PM [facility] ALKALINE PHOSPHATASE S/P/B 86 50 - 136 U/L 06/15/2018 8:54 PM [facility] ANION GAP 15.4 8 - 20 MMOL/L 06/15/2018 8:54 PM [facility] BUN CREATININE RATIO 18.0 6 - 26 06/15/2018 8:54 PM [facility] A/G RATIO 1.3 1.0 - 2.0 RATIO 06/15/2018 8:54 PM [facility] EGFR NON-AFR. AMER. 60(L) >90 ML/MIN/1.7 3 M2 06/15/2018 8:54 PM [facility] EGFR AFR. AMER. 70(L) >90 ML/MIN/1.7 3 M2 06/15/2018 8:54 PM [facility] Comment: NOTE: eGFR is not calculated for patients <18 years of age. This is an estimated GFR (CKD EPI) and should not be used for calculating drug doses. 06/15/2018 3:12 PM CDT 06/15/2018 7:45 PM CDT us Generic Conversion Md [facility] Final R esult [facility] [address] [place] [address], * (ABNORMAL) CBC W/DIFF AUTOMATED (06/15/2018 3:12 PM CDT) WBC 4.3(L) 4.4 - 11.0 x10'3/uL 06/15/2018 8:07 PM CDT [facility] RBC 4.66 4.50 - 5.10 x10'6/uL 06/15/2018 8:07 PM CDT [facility] HGB 12.6 12.3 - 15.3 G/DL 06/15/2018 8:07 PM CDT [facility] HCT 39.9 35.9 - 44.6 % 06/15/2018 8:07 PM CDT [facility] MCV 85.6 80.0 - 96.0 FL 06/15/2018 8:07 PM CDT [facility] MCH 27.0 25.3 - 30.9 PG 06/15/2018 8:07 PM CDT [facility] MCHC 31.6 31.0 - 34.1 G/DL 06/15/2018 8:07 PM CDT [facility] RDW 14.3 12.4 - 15.1 % 06/15/2018 8:07 PM CDT [facility] PLT 212 151 - 353 x10'3/uL 06/15/2018 8:07 PM CDT [facility] MPV 10.3 9.6 - 12.0 FL 06/15/2018 8:07 PM CDT [facility] RBC MORPHOLOGY NORMAL 06/15/2018 8:07 PM CDT [facility] PLT MORPH. NORMAL 06/15/2018 8:07 PM CDT [facility] WBC MORPHOLOGY NORMAL 06/15/2018 8:07 PM CDT [facility] LYMPHOCYTES % 20.6 15.8 - 45.0 % 06/15/2018 8:07 PM CDT [facility] NEUTROPHILS % 68.4 42.1 - 71.9 % 06/15/2018 8:07 PM CDT [facility] MONOCYTES % 8.5 5.7 - 12.5 % 06/15/2018 8:07 PM CDT [facility] EOSINOPHILS 1.6 0.0 - 5.6 % 06/15/2018 8:07 PM CDT [facility] BASOPHILS 0.7 0.0 - 1.3 % 06/15/2018 8:07 PM CDT [facility] ABS. NEUTROPHILS TOTAL 2.96 1.40 - 6.00 x10'3/uL 06/15/2018 8:07 PM T [facility] IMMATURE GRANS % 0.2 0.0 - 0.5 % 06/15/2018 8:07 PM CDT [facility] ABS. LYMPHOCYTES 0.89 0.80 - 4.70 x10'3/uL 06/15/2018 8:07 PM CDT [facility] 06/15/2018 3:12 PM CDT 06/15/2018 7:45 PM CDT us Generic Conversion Md [facility] Final R esult [facility] [address] [place] [address], documented in this encounter Visit Diagnoses Diagnosis Essential (primary) hypertension Unspecified essential hypertension documented in this encounter Care Teams Clinical Statistical Programmer Relationship Specialty Start Date End Date Noemi Barnard MD PCP - General INTERNAL MEDICINE 02/22/18 07/03/18 Martha Ruiz NP [address] [address] PCP - General NURSE PRACTITIONER 07/04/18 08/22/18 Joni Mckeon MD [address] [address] [place] [employer] Claim Adjuster CARDIOVASCULAR DISEASE 07/04/18 documented as of this encounter
--- OUTSIDE RECORDS SUMMARY | 2024-04-05 00:25 | XMS_ITS | Encounter Summary ---
Author Organization [facility] Address [address] [place] [address]. [place], [place] [id number] [place] [address] Care Team Providers Care Bridge Rigger Name Role Phone Noemi Barnard MD Primary Care Provider [phone] Reason for Visit * Reason Comments Diarrhea Patient no longer santos s diarrhea now she has constipation, unable to go for couple days. Stated it goes back and forth alot. Encounter Details Date Type Department Care Team (Late st Contact Info) Description 03/24/2018 1:40 PM CAMELID FIBER SORTER Office Visit [facility] Family & Internal Medicine [address] [address] Martha Parker NP Diarrhea (Patient no longer has diarrhea now she has constipation, unable to go for couple days. Stated it goes back and forth alot. ) Social History Tobacco Use Types Packs/Day [...] Sign Reading Time Taken Comments Blood Pressure 140/62 03/24/2018 1:19 PM CAMELID FIBER SORTER Pulse 80 03/24/2018 1:19 PM CAMELID FIBER SORTER Temperature - - Respiratory Rate - - Oxygen Saturation 98% 03/24/2018 1:19 PM CAMELID FIBER SORTER Inhaled Oxygen Concentration - - Weight 59.4 kg (131 lb) 03/24/2018 1:19 PM CAMELID FIBER SORTER Height 157.5 cm (5' 2 ) 03/24/2018 1:19 PM CAMELID FIBER SORTER Body Mass Index 23.96 03/24/2018 1:19 PM CAMELID FIBER SORTER documented in this encounter Patient Instructions * Patient Instructions* Martha Parker NP - 03/24/2018 1:40 PM CAMELID FIBER SORTER Use the Benefiber daily as directed Colace 100 mg daily If stool becomes too lose cut the colace to 50 mg daily and Benefiber ever other day. Use prune juice daily small glass 4 oz. LID FIBER SORTER documented in this encounter Progress Notes * Martha Parker NP - 03/24/2018 1:40 PM CST Reason for Visit: Diarrhea (Patient no longer has diarrhea now she has constipation, unable to go for couple days. Stated it goes back and forth alot. ) History of Present Illness: Pt has returned. UTI has been treated but had to change the antibiotic and pt is now having diarrhea. Pt has hx of diverticulitis but concern today is that pt may have C-diff. Pt is not having abdominal pain or fever. Pt was negative for the C-diff. And has not been having any issue. Pt stopped having vaginal burning and rectal bleeding. She was told by GI specialist to return to him if she had GI bleeding. No further bleeding. Pt now complains of constipation. Discussed how to use the medication. ROS: Review of Systems Constitutional: Generally weak frail elderly white female HENT: Negative. Eyes: Negative. Respiratory: Negative. Cardiovascular: Negative. Gastrointestinal: Positive for constipation. Negative for diarrhea. Blood on tissue noted but did not note any changes in the stool other than having liquid BM Genitourinary: No further issues with burning with urination Musculoskeletal: Negative. Skin: Negative for rash. Neurological: Negative. Endo/Heme/Allergies: Negative. Psychiatric/Behavioral: Negative. Medications: [...] are normal. Musculoskeletal: Normal range of motion. Neurological: She is alert and oriented to person, place, and time. Skin: Skin is warm and dry. Psychiatric: She has a normal mood and affect. Her behavior is normal. Filed Vitals: 03/24/18 1319 BP: 140/62 Pulse: 80 SpO2: 98% Weight: 59.4 kg (131 lb) Height: 5' 2 (1.575 m) Assessment Encounter Diagnose(s) ICD-10-CM ICD-9-CM SNOMED CT(R) 1. Diarrhea, unspecified type R19.7 787.91 DIARRHEA 2. Constipation, unspecified constipation type K59.00 564.00 CONSTIPATION Recommendations and Plan: Outpatient Encounter Medications as of 03/24/2018 Medication Sig Dispense Refill ??? amlodipine 5 [...] at bedtime. 1 ??? [DISCONTINUED] fluconazole (DIFLUCAN) 100 MG tablet Take one now and one in 4 days. 2 tablet 0 No facility-administered encounter medications on file as of 03/24/2018. Roxana was seen today for diarrhea. Diagnoses and all orders for this visit: Diarrhea, unspecified type Pt is doing much better. Constipation, unspecified constipation type Discussed using miralax or benifiber and colace daily Pt is doing much better. MARTHA PARKRE NP 03/24/2018 1:32 PM Cosigned by Noemi Barnard MD at 03/24/2018 5:27 PM CAMELID FIBER SORTER LID FIBER SORTER LID FIBER SORTER Associated attestation - Noemi Barnard MD - 03/24/2018 5:27 PM CAMELID FIBER SORTER I have reviewed the progress note and agree with the findings and plan of care. Mckay Barnard MD documented in this encounter Plan of Treatment Not on file documented as of this encounter Visit Diagnoses Diagnosis Diarrhea, unspecified type- Primary Constipation, unspecified constipation type documented in this encounter Care Teams Bridge Rigger Relationship Specialty Start Date End Date Noemi Barnard MD PCP - General INTERNAL MEDICINE 02/22/18 07/03/18 documented as of this encounter
--- OUTSIDE RECORDS SUMMARY | 2024-04-05 00:25 | XMS_ITS | Encounter Summary ---
Author Organization [facility] Address [address] [place] [address]. [place] [address] [place] [address] Care Team Providers Care Engine Research Engineer Name Role Phone Unavailable Primary Care Provider Unavailabl e Encounter Details Date Type Department Care Team (Latest Contact Info) Description 12/27/2017 Abstract [facility] , Rhianna Castaneda MD Social History Tobacco Use Types Packs/Day Years Used Date Smoking Tobacco: Never Assessed Comments Unknown Sex and Gender Information Value Date Recorded Sex Assigned at Not on file Legal Sex Female 8:14 PM CDT Gender Identity Not on file Sexual Orientation Not on file documented as of this encounter Progress Notes * Marcella Lane NP - 12/27/2017 12:55 PM CDT Message Patient notified. Verified Results CBC W Differential [id number] 08:17AM Marcella Lane Test Name Result Flag Reference White Blood Cell Count (WBC) 3.3 x10'3/uL L 4.4-11.0 Red Blood Cell Count (RBC) 4.67 x10'6/uL 4.50-5.10 Hemoglobin (HGB) 12.5 G/DL 12.3-15.3 Hematocrit (HCT) 39.0 % 35.9-44.6 Mean Corpuscular Volume (MCV) 83.5 FL 80.0-96.0 Mean Corpuscular Hgb (MCH) 26.8 PG 25.3-30.9 Mean Corpuscular Hgb Conc (MCH 32.1 G/DL 31.0-34.1 Red Cell Distrib Width (RDW) 14.8 % 12.4-15.1 Platelet Count (PLT) 194 x10'3/uL 151-353 Mean Platelet Volume (MPV) 9.4 FL L 9.6-12.0 Basophils % (Auto) 0.9 % 0.0-1.3 Eosinophils % (Auto) 3.0 % 0.0-5.6 Neutrophils % (Auto) 65.1 % 42.1-71.9 Lymphocytes % (Auto) 24.0 % 15.8-45.0 Immature Granulocytes 0.3 % 0.0-0.5 Total Absolute Neutrophils 2.14 x10'3/uL 1.40-6.00 WBC Morphology NORMAL Platelet Evaluation NORMAL RBC Morphology NORMAL MONOCYTES 6.7 % 5.7-12.5 ABS. LYMPHOCYTES 0.79 x10'3/uL L 0.80-4.70 Basic Metabolic Prof ( BMP ) [id number] 08:17AM Marcella [address] Test Name Result Flag Reference Glucose 94 MG/DL 70-99 Blood Urea Nitrogen (BUN) 15 MG/DL 7-18 Creatinine 0.79 MG/DL 0.55-1.02 Sodium (Na) 144 MMOL/L 136-145 Potassium (K) 4.1 MMOL/L 3.5-5.1 Chloride (Cl) 106 MMOL/L 100-108 Carbon Dioxide (CO2) 28.3 MMOL/L 21-32 Calcium 9.3 MG/DL 8.5-10.1 Anion Gap 13.8 MMOL/L 8-20 BUN Creatinine Ratio 19.0 6-26 Glomerular Filt Rate Calc 70 ML/MIN/1.73 M2 L >90 Glomerular Filt Rate (AA) Calc 81 ML/MIN/1.73 M2 L >90 NOTE: eGFR is not calculated for patients <18 years of age. This is an estimated GFR (CKD EPI) and should not be used for calculating drug doses. Blood Culture [id number] 08:17AM [address] Test Name Result Flag Reference Blood Culture SPECIMEN DESCRIPTION - BLOOD SPECIAL REQUESTS - NO SPECIAL REQUEST CULTURE - NO GROWTH <24 HRS Discussion/Summary let her know that her labs all look good Signatures Electronically signed by : Jane Young L.P.N.; Dec 27 2017 1:50PM DATA REVIEW SPECIALIST (Author) documented in this encounter Plan of Treatment Not on file documented as of this encounter Visit Diagnoses Not on filedocumented in this encounter
--- OUTSIDE RECORDS SUMMARY | 2024-04-05 00:25 | XMS_ITS | Encounter Summary ---
Author Organization [facility] Address [address] [place] [address]. [place], [place] [id number] [place] [address] Care Team Providers Care Water Plant Operator Name Role Phone Noemi Barnard MD Primary Care Provider [phone] Joni Mckeon MD Unavailable [phone] Martha Ruiz NP Primary Care Provider [...] on filedocumented in this encounter Care Teams Water Plant Operator Relationship Specialty Start Date End Date Noemi Barnard MD PCP - General INTERNAL MEDICINE 02/22/18 07/03/18 Marhta Ruiz, LODGE OFFICER [facility]. [address] [address] PCP - General NURSE PRACTITIONER 07/04/18 08/22/18 Joni Mckeon MD [facility]. [address] [address] [place] [address] Forms CARDIOVASCULAR DISEASE 07/04/18 documented as of this encounter
--- OUTSIDE RECORDS SUMMARY | 2024-04-05 00:25 | XMS_ITS | Encounter Summary ---
Author Organization [facility] Address [address] [place] [address]. [place], [place] [address] [place] [address] Care Team Providers Care Percolator Operator Name Role Phone Noemi Barnard MD Primary Care Provider Encounter Details Date Type Department Care Team (Late st Contact Info) Description 02/22/2018 Abstract [facility] [address] [place], [place] [id number] [place] [address] [place], [place] [id number] Social History Tobacco Use Types Packs/Day Years [...] Associated Diagnosis Comments URINE BACTERIA CULTURE Routine 02/22/2018 11:36 AM INTEGRATION ENGINEER documented in this encounter Results * CULTURE URINE (02/22/2018 11:36 AM INTEGRATION ENGINEER) SPEC DESCRIPTION URINE CLEAN CATCH 02/22/2018 3:14 PM INTEGRATION ENGINEER [facility] SPECIAL REQUESTS NO SPECIAL REQUEST 02/22/2018 3:14 PM INTEGRATION ENGINEER [facility] CULTURE RESULT 50,000-100,000 COL/MLKLEBSIEL LA PNEUMONIAE 02/24/2018 12:23 AM INTEGRATION ENGINEER [facility] URINE SPECIMEN OBTAINED BY CLEAN CATCH PROCEDURE / Unknown 02/22/2018 11:36 AM INTEGRATION ENGINEER 02/22/2018 3:24 PM INTEGRATION ENGINEER Narrative Organism Antibiotic Method Susceptibility Unknown AMPICILLIN FELIX (VITEK) >=32: Resistant Unknown AMPICILLIN/SULBACTAM FELIX (VITEK) 8: Sensitive Unknown CEFTRIAXONE FELIX (VITEK) <=1: Sensitive Unknown CEFTAZIDIME FELIX (VITEK) <=1: Sensitive Unknown CEFAZOLIN FELIX (VITEK) <=4: Sensitive Unknown ESBL FELIX (VITEK) NEG: Sensitive Unknown NITROFURANTOIN FELIX (VITEK) 64: Intermediate Unknown GENTAMICIN FELIX (VITEK) <=1: Sensitive Unknown LEVOFLOXACIN FELIX (VITEK) <=0.12: Sensitive Unknown PIPRACIL/TAZO FELIX (VITEK) <=4: Sensitive Unknown TRIMETH-SULFAMETH. FELIX (VITEK) <=20: Sensitive Comment: Organism code(s) sent by the ancillary, '50,000-100,000 COL/MLKLEBSIELLA PNEUMONIAE', not recognized. Organism 'UNKNOWN' was substituted in its place. us Generic Conversion Md [facility] - GENERAL ORDERABLES Final Result [facility] [address] [place] [address], [place] [phone] [facility] [address] [place] [address], [place] [phone] documented in this encounter Visit Diagnoses Diagnosis Painful micturition Dysuria documented in this encounter Care Teams Percolator Operator Relationship Specialty Start Date End Date Noemi Barnard MD PCP - General INTERNAL MEDICINE 02/22/18 07/03/18 documented as of this encounter
--- OUTSIDE RECORDS SUMMARY | 2024-04-05 00:25 | XMS_ITS | Encounter Summary ---
Author Organization [facility] Address [address] [place] [address]. [place], [place] [address] [place] [address] Care Team Providers Care Straw Hat Brim Raiser Operator Name Role Phone Noemi Barnard MD Primary Care Provider [phone] Encounter Details Date Type Department Care Team (Late st Contact Info) Description 01/29/2018 Abstract [facility] [address] [place], [place] [id number] Christos Burrows MD [address] [facility] [address] [address] Social History Tobacco Use Types Packs/Day Years [...] as of this encounter Visit Diagnoses Diagnosis Encounter for preprocedural cardiovascular examination Pre-operative cardiovascular examination documented in this encounter Care Teams Straw Hat Brim Raiser Operator Relationship Specialty Start Date End Date Noemi Barnard MD PCP - General INTERNAL MEDICINE 02/22/18 07/03/18 documented as of this encounter
--- OUTSIDE RECORDS SUMMARY | 2024-04-05 00:25 | XMS_ITS | Encounter Summary ---
Author Organization [facility] Address [address] [place] [address]. [place] [address] [place] [address] Care Team Providers Care Airplane Pilot Chief Name Role Phone Noemi Jade MD Primary Care Provider [phone] Reason for Visit * Reason Comments Med Refills amlodipine refills Bladder Problem patient believes she has a bladder infection. Encounter Details Date Type Department Care Team (Late st Contact Info) Description 02/22/2018 10:00 AM COMPUTING SYSTEMS MECHANIC Office Visit [facility] Family & Internal Medicine [facility] [address] [place] [phone] Noemi Jade MD [address] [place] [address] Med Refills (amlodipine refills); Bladder Problem (patient believes she has a bladder infection. ) Social History Tobacco Use Types Packs/Day [...] Sign Reading Time Taken Comments Blood Pressure 122/78 02/22/2018 10:42 AM COMPUTING SYSTEMS MECHANIC Pulse 82 02/22/2018 10:42 AM COMPUTING SYSTEMS MECHANIC Temperature 36.9 ??C (98.4 ??F) 02/22/2018 1 0:42 AM COMPUTING SYSTEMS MECHANIC Respiratory Rate 18 02/22/2018 10:4 2 AM COMPUTING SYSTEMS MECHANIC Oxygen Saturation 97% 02/22/2018 10: 42 AM COMPUTING SYSTEMS MECHANIC Inhaled Oxygen Concentration - - Weight 58.9 kg (129 lb 12.8 oz) 018 10:42 AM COMPUTING SYSTEMS MECHANIC Height 157.5 cm (5' 2 ) 02/22/2018 10:4 2 AM COMPUTING SYSTEMS MECHANIC Body Mass Index 23.74 02/22/2018 10:42 AM COMPUTING SYSTEMS MECHANIC documented in this encounter Progress Notes * Noemi Jade MD - 02/22/2018 10:00 AM CST Reason for Visit: Med Refills (amlodipine refills) and Bladder Problem (patient believes she has a bladder infection.) HPI Hypothyroidism (Follow-Up): The patient is being seen for follow-up of hypothyroidism of undetermined etiology. The patient reports doing well. she has had no significant interval events. The patientis currently asymptomatic. Medications: the patient is adherent to his medication regimen, but@ denies medication side effects. Disease management: the patient is doing well with his goals. Due for: thyroid stimulating hormone. Hypertension (Follow-Up): The patient presents for follow-up of primary hypertension. The patient states she has been stable with his blood pressure control since the last visit. she has no significant interval events. Symptoms: The patient is currently asymptomatic. Associated symptoms include no headache, no focal neurologic deficits and no memory loss. Home monitoring: The patient checks her blood pressure sporadically.. Medications: the patient is adherent with her medication regimen.@ denies medication side effects.. Hyperlipidemia (Follow-Up): The patient states her hyperlipidemia has been stable since the last visit. Comorbid Illnesses: diabetes mellitus and hypertension. she has no significant interval events. Symptoms: The patient is currently asymptomatic. Associated symptoms include no focal neurologic deficits and no memory loss. Medications: the patient is adherent with her medication regimen.@ denies medication side effects.. Diabetes Type II (Follow-Up): The patient states he has been stable with his Type II Diabetes control since the last visit. Comorbid Illnesses: hypertension, hyperlipidemia and obesity. she has no known diabetic complications. she has no significant interval events. Symptoms: Associated symptoms include no polyuria and no polydipsia. Home monitoring: The patient checks her blood sugar sporadically.. Medications: the patient is adherent with her medication regimen.@ denies medication side effects.. Review of Systems Constitutional: Negative. HENT: Negative. Eyes: Negative. Respiratory: Negative. Cardiovascular: Negative. Gastrointestinal: Negative. Musculoskeletal: Negative. Skin: Negative. Neurological: Negative. Psychiatric/Behavioral: Negative. Current Outpatient Medications: ??? amlodipine 5 MG tablet, Take 1 tablet (5 mg total) by mouth daily., Disp: 90 tablet, Rfl: 1 ??? aspirin EC 81 MG EC tablet, Take 1 tablet by mouth daily., Disp: , Rfl: ??? Cholecalciferol (VITAMIN D) 2000 units Cap, Take 1 capsule by mouth daily., Disp: , Rfl: ??? ciprofloxacin (CIPRO) 250 MG tablet, Take 1 tablet (250 mg total) by mouth 2 (two) times daily for 5 days., Disp: 10 tablet, Rfl: 0 ??? enalapril 20 MG tablet, Take 1 tablet by [...] BEDTIME, Disp: 90 tablet, Rfl: 0 ??? levothyroxine 75 MCG tablet, , Disp: , Rfl: ??? ranitidine 300 MG tablet, Take 1 [...] file. No family status information on file. Filed Vitals: 02/22/18 1042 BP: 122/78 Pulse: 82 Resp: 18 Temp: 98.4 ??F (36.9 ??C) TempSrc: Oral SpO2: 97% Weight: 58.9 kg (129 lb 12.8 oz) Height: 5' 2 (1.575 m) Body mass index is 23.74 kg/m??. Physical Exam Constitutional: She is oriented to person, place, and time. She appears well- developed and well-nourished. HENT: Head: Normocephalic. Eyes: Conjunctivae are normal. Pupils are equal, round, and reactive to light. Neck: Neck supple. Cardiovascular: Normal rate, regular rhythm and normal heart sounds. Pulmonary/Chest: Effort normal and breath sounds normal. Abdominal: Soft. Bowel sounds are normal. Musculoskeletal: Normal range of motion. Neurological: She is alert and oriented to person, place, and time. No cranial nerve deficit. Skin: Skin is dry. Psychiatric: She has a normal mood and affect. Judgment normal. \ Results for orders placed or performed in visit on 02/22/18 URINALYSIS AUTO DIP Result Value Ref Range COLOR YELLOW TRANSPARENCY CLEAR U GLUCOSE NEGATIVE NEGATIVE MG/DL Urine Bilirubin NEGATIVE NEGATIVE U KETONES NEGATIVE NEGATIVE MG/DL Specific [place] (U) <=1.005 1.001 - 1.035 BLOOD SMALL (1+, Hemolyzed) NEGATIVE U PH 5.0 5.0 - 9.0 PROTEIN, URINE NEGATIVE mg/dL UROBILINOGEN 0.2 0.2 - 1.0 EU/dL = mg/dL NITRITES NEGATIVE NEGATIVE MG/DL LEUKOCYTE ESTERASE 1+ (SMALL) NEGATIVE CULTURE URINE Result Value Ref Range Spec. Description Test: URINE CULTURE URINE CLEAN CATCH Special Requests: NO SPECIAL REQUEST Culture Result: 50,000-100,000 COL/ML KLEBSIELLA PNEUMONIAE ORGANISM 50,000-100,000 COL/ML KLEBSIELLA PNEUMONIAE Susceptibility 50,000-100,000 col/ml klebsiella pneumoniae - (no method available) AMPICILLIN >=32 RESISTANT AMPICILLIN/SULBACTAM 8 SUSCEPTIBLE CEFTRIAXONE <=1 SUSCEPTIBLE CEFTAZIDIME <=1 SUSCEPTIBLE CEFAZOLIN <=4 SUSCEPTIBLE ESBL NEG NITROFURANTOIN 64 INTERMEDIATE GENTAMICIN <=1 SUSCEPTIBLE LEVOFLOXACIN <=0.12 SUSCEPTIBLE PIPRACIL/TAZO <=4 SUSCEPTIBLE TRIMETH-SULFAMETH. <=20 SUSCEPTIBLE Assessment/PLAN Encounter Diagnose(s) ICD-10-CM ICD-9-CM 1. Urinary (tract) obstruction N13.9 599.60 2. Urinary pain R30.9 788.1 URINALYSIS AUTO DIP CULTURE URINE 3. Essential hypertension I10 401.9 amlodipine 5 MG tablet 4. Acute cystitis without hematuria N30.00 595.0 ciprofloxacin (CIPRO) 250 MG tablet 5. Gastroesophageal reflux disease without esophagitis K21.9 530.81 6. Type 2 diabetes mellitus with complication, without long-term current use of insulin (HCC) E11.8250.90 7. Mixed hyperlipidemia E78.2 272.2 Follow up FU 6 MONTHS NOEMI JADE MD 02/25/2018 9:37 AM UTING SYSTEMS MECHANIC documented in this encounter Plan of Treatment Not on file documented as of this encounter Procedures Procedure Name Priority Date/Time Associated Diagnosis Comments URINE BACTERIA CULTURE Routine 02/22/2018 11:36 AM COMPUTING SYSTEMS MECHANIC Urinary pain URINALYSIS AUTO DIP Routine 02/22/2018 1 0:42 AM COMPUTING SYSTEMS MECHANIC Urinary pain documented in this encounter Results * CULTURE URINE (02/22/2018 11:36 AM COMPUTING SYSTEMS MECHANIC) SPEC DESCRIPTION Test: URINE CULTURE URINE CLEAN CATCH [facility] SPECIAL REQUESTS NO SPECIAL REQUEST [facility] CULTURE RESULT 50,000-100,000 COL/ML KLEBSIELLA PNEUMONIAE [facility] REPORT STATUS FINAL 02/24/2018 [facility] ORGANISM 50,000-100,000 COL/ML KLEBSIELLA PNEUMONIAE [facility] URINE SPECIMEN OBTAINED BY CLEAN CATCH PROCEDURE / Unknown 02/22/2018 11:36 AM COMPUTING SYSTEMS MECHANIC 02/22/2018 2:24 PM COMPUTING SYSTEMS MECHANIC Narrative Organism Antibiotic Method Susceptibility 50,000-100,000 col/ml klebsi miguel pneumoniae AMPICILLIN >=32 RESISTANT 50,000-100,000 col/ml klebsi miguel pneumoniae AMPICILLIN/SULBACTAM 8 SUSCEPTIBLE 50,000-100,000 col/ml klebsi miguel pneumoniae CEFTRIAXONE <=1 SUSCEPTIBLE 50,000-100,000 col/ml klebsi miguel pneumoniae CEFTAZIDIME <=1 SUSCEPTIBLE 50,000-100,000 col/ml klebsi miguel pneumoniae CEFAZOLIN <=4 SUSCEPTIBLE 50,000-100,000 col/ml klebsi miguel pneumoniae ESBL NEG 50,000-100,000 col/ml klebsi miguel pneumoniae NITROFURANTOIN 64 INTERMEDIATE 50,000-100,000 col/ml klebsi miguel pneumoniae GENTAMICIN <=1 SUSCEPTIBLE 50,000-100,000 col/ml klebsi miguel pneumoniae LEVOFLOXACIN <=0.12 SUSCEPTIBLE 50,000-100,000 col/ml klebsi miguel pneumoniae PIPRACIL/TAZO <=4 SUSCEPTIBLE 50,000-100,000 col/ml klebsi miguel pneumoniae TRIMETH-SULFAMETH. <=20 SUSCEPTIBLE us Noemi Jade MD MICROBIOLOGY - GENERAL ORDER DANNA Final Result [facility] [address] [place] [address], [place] [phone] [facility] [address] [place] [address], [place] [phone] * (ABNORMAL) URINALYSIS AUTO DIP (02/22/2018 10:42 AM COMPUTING SYSTEMS MECHANIC) COLOR (U) YELLOW [address] ([address]), [place] TRANSPARENCY CLEAR [address] ([address]), [place] GLUCOSE (U) NEGATIVE NEGATIVE MG/DL [address] ([address]), [place] BILIRUBIN (U) NEGATIVE NEGATIVE [address] ([address]), [place] KETONES MG/DL (U) NEGATIVE NEGATIVE MG/DL [address] ([address]), [place] SPECIFIC GRAVITY (U) <=1.005 1.001 - 1.[address] ([address]), [place] BLOOD (U) SMALL (1+, Hemolyzed) NEGATIVE [address] ([address]), [place] U PH 5.0 5.0 - 9.[address] ([address]), [place] PROTEIN (U) NEGATIVE mg/dL [address] ([address]), [place] UROBILINOGEN 0.2 0.2 - 1.0 EU/dL = mg/dL [address] ([address]), [place] NITRITES NEGATIVE NEGATIVE MG/DL [address] ([address]), [place] LEUKOCYTES (U) 1+ (SMALL) NEGATIVE [address] ([address]), [place] Urine specimen obtained by clean catch procedure (specimen) URINE SPECIMEN OBTAINED BY CLEAN CATCH PROCEDURE / Unknown 02/22/2018 10:42 AM COMPUTING SYSTEMS MECHANIC us Noemi Jade MD URINE ORDERABLES Final Resul t [address] ([address]), [place] [address] [place] [address], documented in this encounter Visit Diagnoses Diagnosis Urinary (tract) obstruction- Primary Urinary obstruction, unspecified Urinary pain Renal colic Essential hypertension Unspecified essential hypertension Acute cystitis without hematuria Acute cystitis Gastroesophageal reflux disease without esophagitis Esophageal reflux Type 2 diabetes mellitus with complication, without long-term current use of insulin ([facility]) Mixed hyperlipidemia documented in this encounter Care Teams Airplane Pilot Chief Relationship Specialty Start Date End Date Noemi Jade MD PCP - General INTERNAL MEDICINE 02/22/18 07/03/18 documented as of this encounter
--- OUTSIDE RECORDS SUMMARY | 2024-04-05 00:25 | XMS_ITS | Encounter Summary ---
Author Organization [facility] Address [address] [place] [address]. [place], [place] [address] [place] [address] Care Team Providers Care Grading Machine Operator Name Role Phone Noemi Barnard MD Primary Care Provider [phone] Joni Mckeon MD Unavailable [phone] Martha Ruiz NP Primary Care Provider Noemi Gracia MD Primary Care Provider [phone] Reason for Visit * Reason Comments Colonoscopy/EGD (SCAN) Encounter Details Date Type Department Care Team (Late st Contact Info) Description 02/04/2018 Scan HEALTH INFO SRVCS Scanned, Documents Colonoscopy/EGD (SCAN) Social History Tobacco Use Types Packs/Day Years Used Date Smoking Tobacco: Never Assessed AUDIT-C Answer Date Recorded Frequency of Alcohol Consumption Never 02/22/2018 Average Number of Drinks Not on file 018 Frequency of Binge Drinking Not on file 02/04 PHQ-2 Answer Date Recorded PHQ-2 Score 0 03/08/2019 Comments Unknown Sex and Gender Information Value [...] 11:38 AM CDT Leticia Grove RN Active documented in this encounter Plan of Treatment Not on file documented as of this encounter Goals Goal Patient Goal Type Associated Problems Recent Progress Patient-Stated? Author Improve Home Support System General No Laura Cheatham RN documented as of this encounter Procedures Procedure Name Priority Date/Time Associated Diagnosis Comments COLONOSCOPY/EGD GENERIC (SCA N ORDER) Routine 02/04/2018 documented in this encounter Results * COLONOSCOPY/EGD (02/04/2018) us Documents Scanned SCANNING Edited Result - Final [facility] documented in this encounter Visit Diagnoses Not on filedocumented in this encounter Care Teams Grading Machine Operator Relationship Specialty Start Date End Date Noemi Barnard MD PCP - General INTERNAL MEDICINE 02/22/18 07/03/18 Martha Ruiz NP [facility]. [address] [address] PCP - General NURSE PRACTITIONER 07/04/18 08/22/18 Noemi Barnard MD PCP - General INTERNAL MEDICINE 08/23/18 03/03/23 Joni Mckeon MD [facility]. [facility] [address] [place] [address] [employer] Associate CARDIOVASCULAR DISEASE 07/04/18 documented as of this encounter
--- OUTSIDE RECORDS SUMMARY | 2024-04-05 00:25 | XMS_ITS | Encounter Summary ---
Author Organization [facility] Address [facility] [place] [address] [place] [address] Care Team Providers Care Process Manager Name Role Phone Unavailable Primary Care Provider Unavailabl e Encounter Details Date Type Department Care Team (Latest Contact Info) Description 01/29/2018 Abstract [facility] , Generic Conversion, Social History Tobacco Use Types Packs/Day Years [...] Procedure Name Priority Date/Time Associated Diagnosis Comments PRV ONLY-RESTING TWELVE LEAD EKG Routine 01/29/2018 8:23 AM CDT documented in this encounter Results * PRV ONLY-RESTING TWELVE LEAD EKG (01/29/2018 8:23 AM CDT) 01/29/2018 8:23 AM CDT 01/29/2018 8:23 AM CDT Narrative [facility] TO EPIC CONVERSION - 01/29/2018 9:13 AM CDT ?? ROXANA RITCHIE MD: NABILA FRANCISCO MD ?? ACCT: [id number] ?? ADMIT/SERVICE DATE: 01/29/18 DISCHARGE DATE: ?? : 1935 PT TYPE: REG CLI ?? SEX: F [facility]D [facility]ITE: [facility] ?TEST DATE: ?2018-01-29 ?? PAT NAME: ? ROXANA RITCHIE ?DEPARTMENT: CARD ?? 85 ? ROOM: ? GENDER: ? FEMALE ? CUSTOMER SERVICE OFFICER: ? : ?1935 ? REQUESTED BY: NABILA FRANCISCO ?? ORDER NUMBER: [id number] ?READING MD: ?? SOHAN JADE ?MEASUREMENTS ?? INTERVALS ?AXIS ? RATE: ? 54 ? P: ?83 ?? WY: ? 235 ?QRS: ?42 ?? QRSD: ? 141 ?T: ?-12 ?? QT: ? 437 ? QTC: ?416 ?INTERPRETIVE STATEMENTS ?? SINUS BRADYCARDIA WITH FIRST DEGREE AV BLOCK ?? RIGHT BUNDLE BRANCH BLOCK ? COMPARED TO ECG 02/09/2015 10:46:52 ?? FIRST DEGREE AV BLOCK NOW PRESENT ?? ATRIAL PREMATURE COMPLEX(ES) NO LONGER PRESENT ?? ELECTRONICALLY SIGNED BY SOHAN JADE AT 01-29-2018 9:11:31 CDT ? Procedure Note Rhianna Bermudez MD - 02/05/2018 ROXANA RITCHIE MD: NABILA FRANCISCO MD ACCT: [id number] ADMIT/SERVICE DATE: 01/29/18 DISCHARGE DATE: : 1935 PT TYPE: REG CLI SEX: F ORD SITE: [facility] TEST DATE: 2018-01-29 PAT NAME: ROXANA RITCHIE DEPARTMENT: CARD 85 ROOM: GENDER: FEMALE CUSTOMER SERVICE OFFICER: : 1935 REQUESTED BY: NABILA FRANCISCO ORDER NUMBER: [id number] CHLOÉ MD: SOHAN JADE MEASUREMENTS INTERVALS AXIS RATE: 54 P: 83 WY: 235 QRS: 42 QRSD: 141 T: -12 QT: 437 QTC: 416 INTERPRETIVE STATEMENTS SINUS BRADYCARDIA WITH FIRST DEGREE AV BLOCK RIGHT BUNDLE BRANCH BLOCK COMPARED TO ECG 02/09/2015 10:46:52 FIRST DEGREE AV BLOCK NOW PRESENT ATRIAL PREMATURE COMPLEX(ES) NO LONGER PRESENT ELECTRONICALLY SIGNED BY SOHAN JADE AT 01-29-2018 9:11:31 CDT us Generic Conversion Md BERMUDEZ ECHO Edited Result - Final [facility] TO EPIC CONVERSION documented in this encounter Visit Diagnoses Not on filedocumented in this encounter
--- OUTSIDE RECORDS SUMMARY | 2024-04-05 00:25 | XMS_ITS | Encounter Summary ---
Author Organization [facility] Address [address] [place] [address]. [place], [place] [address] [place] [address] Care Team Providers Care Steward Dishwasher Name Role Phone Noemi Barnard MD Primary Care Provider [phone] Encounter Details Date Type Department Care Team (Late st Contact Info) Description 02/04/2018 Abstract [facility] [address] [place], [place] [id number] Christos Burrows MD [address] [address] Social History Tobacco Use Types Packs/Day Years [...] as of this encounter Visit Diagnoses Diagnosis Diverticulosis of large intestine without perforation or abscess without bleeding Diverticulosis of colon (without mention of hemorrhage) documented in this encounter Care Teams Steward Dishwasher Relationship Specialty Start Date End Date Noemi Barnard MD PCP - General INTERNAL MEDICINE 02/22/18 07/03/18 documented as of this encounter
--- OUTSIDE RECORDS SUMMARY | 2024-04-05 00:26 | XMS_ITS | Encounter Summary ---
Author Organization [facility] Address [facility] [place] [address] [place] [address] Care Team Providers Care Metal Caster Name Role Phone Unavailable Primary Care Provider Unavailabl e Encounter Details Date Type Department Care Team (Latest Contact Info) Description 11/17/2017 Abstract [facility] [place] [address] [place] [address] Social History Tobacco Use Types [...] MG SCREENING W SEAN KARLA DIGI Routine 11/17/2017 9:23 AM CDT documented in this encounter Results * MG SCREENING W SEAN KARLA DIGI (11/17/2017 9:23 AM CDT) Anatomical Region Laterality Modality Breast Bilateral Mammography 11/17/2017 9:23 AM CDT 11/17/2017 9:23 AM CDT Narrative 11/17/2017 9:39 AM CDT ROXANA RITCHIE ? ADMIT/SERVICE DATE: 11/11/17 ?? ACCT: [id number] ?DISCHARGE DATE: ?? : 1935 ??SEX: F ?[facility] S[facility]: [facility] ?? PT TYPE: REG CLI ? ORDERING MD: NOEMI JADE MD ? STUDY DATE ? REPORT # ?ORDER # ? EXT ORDER ID ?? 11/11/17 ? [id number] ? [id number] ?[id number] ? PROC CODE: ? [id number] ? PROCEDURE DESCRIPTION: ?? MG SCREEN DIG KAUSHAL W SEAN BI ? IMAGING STUDIES: MG SCREEN DIG KAUSHAL W SEAN BI ? DATE: 11/11/2017 1:20 PM ? INDICATION: BILATERAL BREAST REDUCTION, SCREENING. ? COMPARISON: ??01/11/2017, AT 01/09/2016. ? FINDINGS: ? BILATERAL NIPPLE PROFILE, CC AND MLO VIEWS, DIGITAL WITH CAD. ??2-D WITH 3-D TOMOSYNTHESIS. ? MODERATE AMOUNT OF BREAST PARENCHYMA. FOCAL ASYMMETRIES LIKELY REPRESENTING SCARRING RELATED TO PRIOR BREAST SURGERY. ? NO SUSPICIOUS MICROCALCIFICATION, WORRISOME MASS OR EVIDENCE OF NEW ARCHITECTURAL DISTORTION. ? BENIGN MICROCALCIFICATIONS. NO SKIN THICKENING OR NIPPLE RETRACTION. ? IMPRESSION: BI-RADS CATEGORY ??2, BENIGN FINDINGS. ROUTINE SCREENING MAMMOGRAPHY RECOMMENDED. ?MQSA MAMMOGRAM CLASSIFICATION ? BI-RADS CATEGORY 0-NEED ADDITIONAL IMAGING EVALUATION ?? BI-RADS CATEGORY 1-NEGATIVE ?? BI-RADS CATEGORY 2-BENIGN FINDINGS ?? BI-RADS CATEGORY 3-PROBABLY BENIGN FINDING-SHORT INTERVAL FOLLOWUP ?? SUGGESTED ?? BI-RADS CATEGORY 4-SUSPICIOUS ABNORMALITY-BIOPSY SHOULD BE CONSIDERED ?? BI-RADS CATEGORY 5-HIGHLY SUGGESTIVE OF MALIGNANCY-APPROPRIATE ACTION ?? SHOULD BE TAKEN ? A. ??A NEGATIVE REPORT SHOULD NOT DELAY A BIOPSY IF A DOMINANT OR CLINICALLY SUSPICIOUS MASS ?? IS PRESENT. ? B. ??ADENOSIS AND DENSE BREASTS MAY OBSCURE AN UNDERLYING NEOPLASM. ? C. ??COMPUTER AIDED DETECTION UTILIZED IN THE INTERPRETATION OF THIS STUDY. ? ELECTRONICALLY SIGNED BY JANE REEVES MD ON 11/17/2017 9:36 AM ? Procedure Note Rhianna Abreu MD - 02/15/2018 ROXANA RITCHIE ADMIT/SERVICE DATE:11/11/17 ACCT: [id number] DISCHARGE DATE: : 1935 SEX: F [facility] SITE: [facility] PT TYPE: REG CLI ORDERING MD:NOEMI JADE MD STUDY DATE REPORT # ORDER # EXT ORDER ID 11/11/17 [id number] PROC CODE: [id number] PROCEDURE DESCRIPTION: MG SCREEN DIG KAUSHAL W SEAN BI IMAGING STUDIES: MG SCREEN DIG KAUSHAL W SEAN BI DATE: 11/11/2017 1:20 PM INDICATION: BILATERAL BREAST REDUCTION, SCREENING. COMPARISON: 01/11/2017, AT 01/09/2016. FINDINGS: BILATERAL NIPPLE PROFILE, CC AND MLO VIEWS, DIGITAL WITH CAD. 2-D WITH3-D TOMOSYNTHESIS. MODERATE AMOUNT OF BREAST PARENCHYMA. FOCAL ASYMMETRIES LIKELYREPRESENTING SCARRING RELATED TO PRIOR BREAST SURGERY. NO SUSPICIOUS MICROCALCIFICATION, WORRISOME MASS OR EVIDENCE OF NEWARCHITECTURAL DISTORTION. BENIGN MICROCALCIFICATIONS. NO SKIN THICKENING OR NIPPLE RETRACTION. IMPRESSION: BI-RADS CATEGORY 2, BENIGN FINDINGS. ROUTINE SCREENINGMAMMOGRAPHY RECOMMENDED. MQSA MAMMOGRAMCLASSIFICATION BI-RADS CATEGORY 0-NEED ADDITIONAL IMAGING EVALUATION BI-RADS CATEGORY 1-NEGATIVE BI-RADS CATEGORY 2-BENIGN FINDINGS BI-RADS CATEGORY 3-PROBABLY BENIGN FINDING-SHORT INTERVAL FOLLOWUP SUGGESTED BI-RADS CATEGORY 4-SUSPICIOUS ABNORMALITY-BIOPSY SHOULD BE CONSIDERED BI-RADS CATEGORY 5-HIGHLY SUGGESTIVE OF MALIGNANCY-APPROPRIATE ACTION SHOULD BE TAKEN A. A NEGATIVE REPORT SHOULD NOT DELAY A BIOPSY IF A DOMINANT ORCLINICALLY SUSPICIOUS MASS IS PRESENT. B. ADENOSIS AND DENSE BREASTS MAY OBSCURE AN UNDERLYING NEOPLASM. C. COMPUTER AIDED DETECTION UTILIZED IN THE INTERPRETATION OF THISSTUDY. ELECTRONICALLY SIGNED BY JANE REEVES MD ON 11/17/2017 9:36 AM Noemi Jade MD MAMMO Final Result documented in this encounter Visit Diagnoses Not on filedocumented in this encounter
--- OUTSIDE RECORDS SUMMARY | 2024-04-05 00:26 | XMS_ITS | Encounter Summary ---
Author Organization [facility] Address [address] [place] [address]. [place] [address] [place] [address] Care Team Providers Care Relief Captain Name Role Phone Noemi Barnard MD Primary Care Provider + [phone] Encounter Details Date Type Department Care Team (Late st Contact Info) Description 11/22/2017 Abstract [facility] Emergency Room [address] [place] [address] Rick Hubbard [place] [address] [phone] (Work) [place] [address] [phone] (Work) Social History Tobacco Use Types Packs/Day Years [...] POCT GLUCOSE - MARISCAL DOCKED DEVICE Routine 11/26/2017 11:46 AM CDT POCT GLUCOSE - MARISCAL DOCKED DEVICE Routine 11/26/2017 6:08 AM CDT COMPREHENSIVE METABOLIC PANEL Routine 11/26/2017 5:55 AM CDT CBC W/DIFF AUTOMATED Routine 11/26/2017 5:55 AM CDT POCT GLUCOSE - MARISCAL DOCKED DEVICE Routine 11/25/2017 5:08 PM CDT POCT GLUCOSE - MARISCAL DOCKED DEVICE Routine 11/25/2017 12:02 PM CDT COMPREHENSIVE METABOLIC PANEL Routine 11/25/2017 5:42 AM CDT CBC W/DIFF AUTOMATED Routine 11/25/2017 5:42 AM CDT POCT GLUCOSE - MARISCAL DOCKED DEVICE Routine 11/25/2017 5:41 AM CDT POCT GLUCOSE - MARISCAL DOCKED DEVICE Routine 11/24/2017 8:02 PM CDT POCT GLUCOSE - MARISCAL DOCKED DEVICE Routine 11/24/2017 4:20 PM CDT POCT GLUCOSE - MARISCAL DOCKED DEVICE Routine 11/24/2017 11:36 AM CDT OCCULT BLOOD, FECES Routine 11/24/2017 1 1:07 AM CDT BASIC METABOLIC PANEL Routine 11/24/2017 5:43 AM CDT CBC W/DIFF AUTOMATED Routine 11/24/2017 5:43 AM CDT MAGNESIUM Routine 11/24/2017 5:43 AM CDT POCT GLUCOSE - MARISCAL DOCKED DEVICE Routine 11/23/2017 8:28 PM CDT POCT GLUCOSE - MARISCAL DOCKED DEVICE Routine 11/23/2017 5:22 PM CDT POCT GLUCOSE - MARISCAL DOCKED DEVICE Routine 11/23/2017 12:47 PM CDT POCT GLUCOSE - MARISCAL DOCKED DEVICE Routine 11/23/2017 11:54 AM CDT GLUCOSE BLOOD, QNT TIMED 11/23/2017 7: 54 AM CDT POCT GLUCOSE - MARISCAL DOCKED DEVICE Routine 11/23/2017 6:05 AM CDT BASIC METABOLIC PANEL Routine 11/23/2017 5:41 AM CDT CBC W/DIFF AUTOMATED Routine 11/23/2017 5:41 AM CDT PHOSPHORUS, INORGANIC PHOSPHATE TIMED 11/23/2017 5:41 AM CDT MAGNESIUM TIMED 11/23/2017 5:41 AM CDT POCT GLUCOSE - MARISCAL DOCKED DEVICE Routine 11/22/2017 9:12 PM CDT POCT GLUCOSE - MARISCAL DOCKED DEVICE Routine 11/22/2017 3:53 PM CDT POCT GLUCOSE - MRAISCAL DOCKED DEVICE Routine 11/22/2017 11:08 AM CDT COMPREHENSIVE METABOLIC PANEL STAT 11/22/2017 9:16 AM CDT CBC W/DIFF AUTOMATED STAT 11/22/2017 9:16 AM CDT POCT GLUCOSE - MARISCAL DOCKED DEVICE Routine 11/22/2017 6:06 AM CDT CULTURE, BACTERIA, BLOOD TIMED 11/22/2017 12:36 AM CDT LACTIC ACID STAT 11/22/2017 12:35 AM CDT CULTURE, BACTERIA, BLOOD Routine 11/22/2017 12:30 AM CDT URINALYSIS WI REFLEX TO CULTURE STAT 11/21/2017 11:15 PM CDT COMPREHENSIVE METABOLIC PANEL STAT 11/21/2017 10:30 PM CDT CBC W/DIFF AUTOMATED STAT 11/21/2017 10:30 PM CDT LIPASE STAT 11/21/2017 10:30 PM CDT documented in this encounter Results * POCT glucose (11/26/2017 11:46 AM CDT) GLUCOSE POC 99 70 - 110 mg/dL 11/26/2017 11:55 AM CDT [facility] ORDERS INTERFACE 11/26/2017 11:4 6 AM CDT 11/26/2017 11:55 AM CDT us Generic Conversion Md BERMUDEZ POCT ORDERABLES - DEVIC E Final Result Performing Organization Address [facility] de Phone Number [facility] ORDERS INTERFACE US * (ABNORMAL) POCT glucose (11/26/2017 6:08 AM CDT) GLUCOSE POC 111(H) 70 - 110 mg/dL 11/26/2017 6:16 AM CDT [facility] ORDERS INTERFACE 11/26/2017 6:08 AM CDT 11/26/2017 6:16 AM CDT us Generic Conversion Md BERMUDEZ POCT ORDERABLES - DEVIC E Final Result Performing Organization Address City/[facility]/ZIP Co de Phone Number [facility] ORDERS INTERFACE US * (ABNORMAL) COMPREHENSIVE METABOLIC PANEL (11/26/2017 5:55 AM CDT) GLUCOSE 124(H) 70 - 99 MG/DL 11/26/2017 6:27 AM CDT [facility] BUN 6(L) 7 - 18 MG/DL 11/26/2017 6:27 AM CDT [facility] () [facility] CREATININE S/P/B 0.87 0.55 - 1.02 MG/DL 11/26/2017 6:27 AM [facility] SODIUM S/P/B 142 136 - 145 MMOL/L 11/26/2017 6:27 AM [facility] POTASSIUM S/P/B 4.0 3.5 - 5.1 MMOL/L 11/26/2017 6:27 AM [facility] CHLORIDE S/P/B 109(H) 100 - 108 MMOL/L 11/26/2017 6:27 AM [facility] CO2 24.8 21 - 32 MMOL/L 11/26/2017 6:27 AM [facility] CALCIUM S/P/B 9.1 8.5 - 10.1 MG/DL 11/26/2017 6:27 AM [facility] BILIRUBIN TOTAL S/P/B 0.5 0.2 - 1.2 MG/DL 11/26/2017 6:27 AM [facility] TOTAL PROTEIN S/P/B 6.2(L) 6.4 - 8.2 G/DL 11/26/2017 6:27 AM [facility] ALBUMIN S/P/B 2.8(L) 3.4 - 5.0 G/DL 11/26/2017 6:27 AM [facility] AST 12(L) 15 - 37 U/L 11/26/2017 6:27 AM [facility] ALT 12(L) 14 - 55 U/L 11/26/2017 6:27 AM [facility] ALKALINE PHOSPHATASE S/P/B 76 50 - 136 U/L 11/26/2017 6:27 AM [facility] ANION GAP 12.2 8 - 20 MMOL/L 11/26/2017 6:27 AM [facility] BUN CREATININE RATIO 6.9 6 - 26 11/26/2017 6:27 AM CDT [facility] A/G RATIO 0.8(L) 1.0 - 2.0 RATIO 11/26/2017 6:27 AM T [facility] EGFR NON-AFR. AMER. 62(L) >90 ML/MIN/1.7 3 M2 11/26/2017 6:27 AM T [facility] EGFR AFR. AMER. 72(L) >90 ML/MIN/1.7 3 M2 11/26/2017 6:27 AM T [facility] Comment: NOTE: eGFR is not calculated for patients <18 years of age. This is an estimated GFR (CKD EPI) and should not be used for calculating drug doses. 11/26/2017 5:55 AM CDT 11/26/2017 6:02 AM CDT us Generic Conversion Md [facility] Final R esult [facility] [address] [place] [address], [place] [phone] * (ABNORMAL) CBC W/DIFF AUTOMATED (11/26/2017 5:55 AM CDT) WBC 2.9(L) 4.4 - 11.0 x10'3/uL 11/26/2017 7:06 AM T [facility] RBC 4.16(L) 4.50 - 5.10 x10'6/uL 11/26/2017 7:06 AM T [facility] HGB 11.0(L) 12.3 - 15.3 G/DL 11/26/2017 7:06 AM [facility] HCT 34.3(L) 35.9 - 44.6 % 11/26/2017 7:06 AM T [facility] MCV 82.5 80.0 - 96.0 FL 11/26/2017 7:06 AM CDT [facility] MCH 26.4 25.3 - 30.9 PG 11/26/2017 7:06 AM [facility] MCHC 32.1 31.0 - 34.1 G/DL 11/26/2017 7:06 AM [facility] RDW 14.7 12.4 - 15.1 % 11/26/2017 7:06 AM T [facility] PLT 210 151 - 353 x10'3/uL 11/26/2017 7:06 AM T [facility] MPV 9.6 9.6 - 12.0 FL 11/26/2017 7:06 AM [facility] SEG NEUTROPHILS 73(H) 42 - 72 % 8 7:20 AM [facility] LYMPHOCYTES 22 15.8 - 45.0 % 11/26/2017 7:20 AM [facility] MONOCYTES 3(L) 5.7 - 12.5 % 11/26/2017 7:20 AM [facility] BASOPHILS 2(H) 0 - 1.3 % 11/26/2017 7:20 AM [facility] ABS. NEUTROPHILS TOTAL 2.12 1.40 - 6.00 x10'3/uL 11/26/2017 7:20 AM [facility] ABS. LYMPHOCYTES 0.64(L) 0.80 - 4.70 x10'3/uL 11/26/2017 7:20 AM [facility] PLT MORPH. NORMAL 11/26/2017 7:20 AM [facility] RBC MORPHOLOGY SLIGHT 11/26/2017 7:20 AM T [facility] Comment:ANISOCYTOSIS WBC MORPHOLOGY NORMAL 11/26/2017 7:20 AM CDT [facility] 11/26/2017 5:55 AM CDT 11/26/2017 6:02 AM CDT us Generic Conversion Md [facility] Edited Result - Final Performing Organization Address [facility] Co de Phone Number [facility] [address] [place] [address], [place] [phone] * (ABNORMAL) POCT glucose (11/25/2017 5:08 PM CDT) GLUCOSE POC 126(H) 70 - 110 mg/dL 11/25/2017 5:13 PM CDT [facility] ORDERS INTERFACE 11/25/2017 5:08 PM CDT 11/25/2017 5:13 PM CDT us Generic Conversion Md BERMUDEZ POCT ORDERABLES - DEVIC E Final Result Performing Organization Address [facility] Co de Phone Number [facility] ORDERS INTERFACE US * (ABNORMAL) POCT glucose (11/25/2017 12:02 PM CDT) GLUCOSE POC 128(H) 70 - 110 mg/dL 11/25/2017 12:12 PM CDT [facility] ORDERS INTERFACE 11/25/2017 12:0 2 PM CDT 11/25/2017 12:12 PM CDT us Generic Conversion Md BERMUDEZ POCT ORDERABLES - DEVIC E Final Result Performing Organization Address [facility] Co de Phone Number [facility] ORDERS INTERFACE US * (ABNORMAL) COMPREHENSIVE METABOLIC PANEL (11/25/2017 5:42 AM CDT) GLUCOSE 120(H) 70 - 99 MG/DL 11/25/2017 6:34 AM CDT [facility] BUN 2(L) 7 - 18 MG/DL 11/25/2017 6:52 AM CDT [facility] CREATININE S/P/B 0.74 0.55 - 1.02 MG/DL 11/25/2017 6:34 AM [facility] SODIUM S/P/B 144 136 - 145 MMOL/L 11/25/2017 6:34 AM [facility] POTASSIUM S/P/B 4.1 3.5 - 5.1 MMOL/L 11/25/2017 6:34 AM [facility] CHLORIDE S/P/B 111(H) 100 - 108 MMOL/L 11/25/2017 6:34 AM [facility] CO2 24.5 21 - 32 MMOL/L 11/25/2017 6:34 AM [facility] CALCIUM S/P/B 8.7 8.5 - 10.1 MG/DL 11/25/2017 6:34 AM [facility] BILIRUBIN TOTAL S/P/B 0.6 0.2 - 1.2 MG/DL 11/25/2017 6:34 AM [facility] TOTAL PROTEIN S/P/B 6.4 6.4 - 8.2 G/DL 11/25/2017 6:34 AM [facility] ALBUMIN S/P/B 2.9(L) 3.4 - 5.0 G/DL 11/25/2017 6:34 AM [facility] AST 12(L) 15 - 37 U/L 11/25/2017 6:34 AM [facility] ALT 10(L) 14 - 55 U/L 11/25/2017 6:34 AM [facility] ALKALINE PHOSPHATASE S/P/B 62 50 - 136 U/L 11/25/2017 6:34 AM [facility] ANION GAP 12.6 8 - 20 MMOL/L 11/25/2017 6:34 AM [facility] BUN CREATININE RATIO 2.7(L) 6 - 26 11/25/2017 6:52 AM CDT [facility] A/G RATIO 0.8(L) 1.0 - 2.0 RATIO 11/25/2017 6:34 AM CDT [facility] EGFR NON-AFR. AMER. 75(L) >90 ML/MIN/1.7 3 M2 11/25/2017 6:34 AM T [facility] EGFR AFR. AMER. 87(L) >90 ML/MIN/1.7 3 M2 11/25/2017 6:34 AM CDT [facility] Comment: NOTE: eGFR is not calculated for patients <18 years of age. This is an estimated GFR (CKD EPI) and should not be used for calculating drug doses. 11/25/2017 5:42 AM CDT 11/25/2017 5:43 AM CDT us Generic Conversion Md [facility] Final R esult [facility] [address] [place] [address], [place] [phone] * (ABNORMAL) CBC W/DIFF AUTOMATED (11/25/2017 5:42 AM CDT) WBC 3.4(L) 4.4 - 11.0 x10'3/uL 11/25/2017 6:21 AM CDT [facility] RBC 4.19(L) 4.50 - 5.10 x10'6/uL 11/25/2017 6:21 AM CDT [facility] HGB 11.1(L) 12.3 - 15.3 G/DL 11/25/2017 6:21 AM CDT [facility] HCT 34.8(L) 35.9 - 44.6 % 11/25/2017 6:21 AM [facility] MCV 83.1 80.0 - 96.0 FL 11/25/2017 6:21 AM [facility] MCH 26.5 25.3 - 30.9 PG 11/25/2017 6:21 AM [facility] MCHC 31.9 31.0 - 34.1 G/DL 11/25/2017 6:21 AM [facility] RDW 14.8 12.4 - 15.1 % 11/25/2017 6:21 AM [facility] PLT 176 151 - 353 x10'3/uL 11/25/2017 6:21 AM [facility] MPV 9.5(L) 9.6 - 12.0 FL 11/25/2017 6:21 AM [facility] RBC MORPHOLOGY NORMAL 11/25/2017 6:21 AM [facility] PLT MORPH. NORMAL 11/25/2017 6:21 AM [facility] WBC MORPHOLOGY NORMAL 11/25/2017 6:21 AM [facility] LYMPHOCYTES % 18.8 15.8 - 45.0 % 11/25/2017 6:21 AM [facility] NEUTROPHILS % 67.1 42.1 - 71.9 % 11/25/2017 6:21 AM [facility] MONOCYTES % 8.5 5.7 - 12.5 % 11/25/2017 6:21 AM [facility] EOSINOPHILS 4.7 0.0 - 5.6 % 11/25/2017 6:21 AM [facility] BASOPHILS 0.6 0.0 - 1.3 % 11/25/2017 6:21 AM [facility] ABS. NEUTROPHILS TOTAL 2.29 1.40 - 6.00 x10'3/uL 11/25/2017 6:21 AM CDT [facility] IMMATURE GRANS % 0.3 0.0 - 0.5 % 11/25/2017 6:21 AM CDT [facility] ABS. LYMPHOCYTES 0.64(L) 0.80 - 4.70 x10'3/uL 11/25/2017 6:21 AM CDT [facility] 11/25/2017 5:42 AM CDT 11/25/2017 5:43 AM CDT us Generic Conversion Md [facility] Final R esult Performing Organization Address [facility]/ZIP Co de Phone Number [facility] [address] [place] [address], [place] [phone] * (ABNORMAL) POCT glucose (11/25/2017 5:41 AM CDT) GLUCOSE POC 124(H) 70 - 110 mg/dL 11/25/2017 6:50 AM CDT [facility] ORDERS INTERFACE 11/25/2017 5:41 AM CDT 11/25/2017 6:50 AM CDT us Generic Conversion Md BERMUDEZ POCT ORDERABLES - DEVIC E Final Result Performing Organization Address City/[facility]/ZIP Co de Phone Number [facility] ORDERS INTERFACE US * (ABNORMAL) POCT glucose (11/24/2017 8:02 PM CDT) GLUCOSE POC 116(H) 70 - 110 mg/dL 11/24/2017 8:54 PM CDT [facility] ORDERS INTERFACE 11/24/2017 8:02 PM CDT 11/24/2017 8:54 PM CDT us Generic Conversion Md BERMUDEZ POCT ORDERABLES - DEVIC E Final Result Performing Organization Address City/[facility]/ZIP Co de Phone Number [facility] ORDERS INTERFACE US * (ABNORMAL) POCT glucose (11/24/2017 4:20 PM CDT) GLUCOSE POC 140(H) 70 - 110 mg/dL 11/24/2017 8:54 PM CDT [facility] ORDERS INTERFACE 11/24/2017 4:20 PM CDT 11/24/2017 8:54 PM CDT us Generic Conversion Md BERMUDEZ POCT ORDERABLES - DEVIC E Final Result Performing Organization Address City/[facility] Co de Phone Number [facility] ORDERS INTERFACE US * (ABNORMAL) POCT glucose (11/24/2017 11:36 AM CDT) GLUCOSE POC 153(H) 70 - 110 mg/dL 11/24/2017 12:31 PM CDT [facility] ORDERS INTERFACE 11/24/2017 11:3 6 AM CDT 11/24/2017 12:31 PM CDT us Generic Conversion Md BERMUDEZ POCT ORDERABLES - DEVIC E Final Result Performing Organization Address [facility] Co de Phone Number [facility] ORDERS INTERFACE US * OCCULT BLOOD, FECES (11/24/2017 11:07 AM CDT) OCCULT BLOOD FECAL NEGATIVE NEGATIVE 11/24/2017 11:22 AM CDT [facility] 11/24/2017 11:0 7 AM CDT 11/24/2017 11:07 AM CDT us Generic Conversion Md BERMUDEZ BODY FLUIDS AND STOOLS ORDERABLES Final Result Performing Organization Address [facility] Co de Phone Number [facility] [address] [place] [address], [place] [phone] * MAGNESIUM (11/24/2017 5:43 AM CDT) MAGNESIUM 1.9 1.8 - 2.4 MG/DL 11/24/2017 6:18 AM CDT [facility] SERUM OR PLASMA SPECIMEN / Unknown 11/24/2017 5:43 AM CDT 11/24/2017 5:44 AM CDT us Generic Conversion Md [facility] Final R esult [facility] [address] [place] [address], * (ABNORMAL) CBC W/DIFF AUTOMATED (11/24/2017 5:43 AM CDT) WBC 3.1(L) 4.4 - 11.0 x10'3/uL 11/24/2017 6:11 AM CDT [facility] RBC 3.79(L) 4.50 - 5.10 x10'6/uL 11/24/2017 6:11 AM CDT [facility] HGB 10.0(L) 12.3 - 15.3 G/DL 11/24/2017 6:11 AM CDT [facility] HCT 31.8(L) 35.9 - 44.6 % 11/24/2017 6:11 AM CDT [facility] MCV 83.9 80.0 - 96.0 FL 11/24/2017 6:11 AM CDT [facility] MCH 26.4 25.3 - 30.9 PG 11/24/2017 6:11 AM CDT [facility] MCHC 31.4 31.0 - 34.1 G/DL 11/24/2017 6:11 AM CDT [facility] RDW 14.7 12.4 - 15.1 % 11/24/2017 6:11 AM CDT [facility] PLT 134(L) 151 - 353 x10'3/uL 11/24/2017 6:11 AM CDT [facility] MPV 9.6 9.6 - 12.0 FL 11/24/2017 6:11 AM CDT [facility] RBC MORPHOLOGY NORMAL 11/24/2017 6:11 AM T [facility] PLT MORPH. NORMAL 11/24/2017 6:11 AM T [facility] WBC MORPHOLOGY NORMAL 11/24/2017 6:11 AM CDT [facility] LYMPHOCYTES % 18.4 15.8 - 45.0 % 11/24/2017 6:11 AM CDT [facility] NEUTROPHILS % 66.2 42.1 - 71.9 % 11/24/2017 6:11 AM CDT [facility] MONOCYTES % 10.3 5.7 - 12.5 % 11/24/2017 6:11 AM T [facility] EOSINOPHILS 4.2 0.0 - 5.6 % 11/24/2017 6:11 AM T [facility] BASOPHILS 0.6 0.0 - 1.3 % 11/24/2017 6:11 AM T [facility] ABS. NEUTROPHILS TOTAL 2.05 1.40 - 6.00 x10'3/uL 11/24/2017 6:11 AM T [facility] IMMATURE GRANS % 0.3 0.0 - 0.5 % 11/24/2017 6:11 AM T [facility] ABS. LYMPHOCYTES 0.57(L) 0.80 - 4.70 x10'3/uL 11/24/2017 6:11 AM T [facility] 11/24/2017 5:43 AM CDT 11/24/2017 5:44 AM CDT us Generic Conversion Md [facility] Final R esult [facility] [address] [place] [address], [place] [phone] * (ABNORMAL) BASIC METABOLIC PANEL (11/24/2017 5:43 AM CDT) [facility] GLUCOSE 193(H) 70 - 99 MG/DL 11/24/2017 6:18 AM CDT [facility] BUN 5(L) 7 - 18 MG/DL 11/24/2017 6:18 AM T [facility] CREATININE S/P/B 0.73 0.55 - 1.02 MG/DL 11/24/2017 6:18 AM T [facility] SODIUM S/P/B 144 136 - 145 MMOL/L 11/24/2017 6:18 AM T [facility] POTASSIUM S/P/B 4.4 3.5 - 5.1 MMOL/L 11/24/2017 6:18 AM T [facility] CHLORIDE S/P/B 112(H) 100 - 108 MMOL/L 11/24/2017 6:18 AM T [facility] CO2 22.8 21 - 32 MMOL/L 11/24/2017 6:18 AM T [facility] CALCIUM S/P/B 8.2(L) 8.5 - 10.1 MG/DL 11/24/2017 6:18 AM [facility] ANION GAP 13.6 8 - 20 MMOL/L 11/24/2017 6:18 AM T [facility] BUN CREATININE RATIO 6.8 6 - 26 11/24/2017 6:18 AM T [facility] EGFR NON-AFR. AMER. 77(L) >90 ML/MIN/1.7 3 M2 11/24/2017 6:18 AM T [facility] EGFR AFR. AMER. 89(L) >90 ML/MIN/1.7 3 M2 11/24/2017 6:18 AM T [facility] Comment: NOTE: eGFR is not calculated for patients <18 years of age. This is an estimated GFR (CKD EPI) and should not be used for calculating drug doses. 11/24/2017 5:43 AM CDT 11/24/2017 5:44 AM CDT us Generic Conversion Md [facility] Final R esult Performing Organization Address [facility] Co de Phone Number [facility] [address] [place] [address], [place] [phone] * (ABNORMAL) POCT glucose (11/23/2017 8:28 PM CDT) GLUCOSE POC 148(H) 70 - 110 mg/dL 11/23/2017 9:27 PM CDT [facility] ORDERS INTERFACE 11/23/2017 8:28 PM CDT 11/23/2017 9:27 PM CDT us Generic Conversion Md BERMU[facility] POCT ORDERABLES - DEVIC E Final Result Performing Organization Address [facility] Co de Phone Number [facility] ORDERS INTERFACE US * (ABNORMAL) POCT glucose (11/23/2017 5:22 PM CDT) GLUCOSE POC 144(H) 70 - 110 mg/dL 11/23/2017 5:37 PM CDT [facility] ORDERS INTERFACE 11/23/2017 5:22 PM CDT 11/23/2017 5:37 PM CDT us Generic Conversion Md BERMU[facility] POCT ORDERABLES - DEVIC E Final Result Performing Organization Address [facility] Co de Phone Number [facility] ORDERS INTERFACE US * (ABNORMAL) POCT glucose (11/23/2017 12:47 PM CDT) GLUCOSE POC 206(H) 70 - 110 mg/dL 11/23/2017 12:49 PM CDT [facility] INTERFACE 11/23/2017 12:4 7 PM CDT 11/23/2017 12:48 PM CDT us Generic Conversion Md BERMUDEZ POCT ORDERABLES - DEVIC E Final Result Performing Organization Address City/[facility]/ZIP Co de Phone Number [facility] INTERFACE US * (ABNORMAL) POCT glucose (11/23/2017 11:54 AM CDT) GLUCOSE POC 69(L) 70 - 110 mg/dL 11/23/2017 12:49 PM CDT [facility] INTERFACE 11/23/2017 11:5 4 AM CDT 11/23/2017 12:48 PM CDT us Generic Conversion Md BERMUDEZ POCT ORDERABLES - DEVIC E Final Result Performing Organization Address [facility] Co de Phone Number [facility] INTERFACE [facility] * (ABNORMAL) GLUCOSE BLOOD, QNT (11/23/2017 7:54 AM CDT) GLUCOSE 180(H) 70 - 99 MG/DL 11/23/2017 8:42 AM CDT [facility] SERUM OR PLASMA SPECIMEN / Unknown 11/23/2017 7:54 AM CDT 11/23/2017 7:55 AM CDT us Generic Conversion Md BERMUDEZ LABORATORY Final R esult Performing Organization Address [facility] Co de Phone Number [facility] [address] [place] [address], [place] [phone] * (ABNORMAL) POCT glucose (11/23/2017 6:05 AM CDT) GLUCOSE POC 42(L) 70 - 110 mg/dL 11/23/2017 6:07 AM CDT [facility] ORDERS INTERFACE 11/23/2017 6:05 AM CDT 11/23/2017 6:06 AM CDT us Generic Conversion Md BERMUDEZ POCT ORDERABLES - DEVIC E Final Result [facility]FACE US * PHOSPHORUS, INORGANIC PHOSPHATE (11/23/2017 5:41 AM CDT) PHOSPHORUS 2.9 2.5 - 4.9 MG/DL 11/23/2017 7:45 AM CDT [facility] SERUM OR PLASMA SPECIMEN / Unknown 11/23/2017 5:41 AM CDT 11/23/2017 7:23 AM CDT us Generic Conversion Md BERMUDEZ LABORATORY Final R esult Performing Organization Address City/[facility]/ZIP Co de Phone Number [facility] [address] [place] [address], [place] [phone] * (ABNORMAL) MAGNESIUM (11/23/2017 5:41 AM CDT) MAGNESIUM 1.6(L) 1.8 - 2.4 MG/DL 11/23/2017 7:45 AM CDT [facility] SERUM OR PLASMA SPECIMEN / Unknown 11/23/2017 5:41 AM CDT 11/23/2017 7:23 AM CDT us Generic Conversion Md BERMUDEZ LABORATORY Final R esult Performing Organization Address [facility]/ZIP Co de Phone Number [facility] [address] [place] [address], [place] [phone] * (ABNORMAL) CBC W/DIFF AUTOMATED (11/23/2017 5:41 AM CDT) WBC 6.2 4.4 - 11.0 x10'3/uL 11/23/2017 6:10 AM CDT [facility] RBC 4.23(L) 4.50 - 5.10 x10'6/uL 11/23/2017 6:10 AM CDT [facility] HGB 11.0(L) 12.3 - 15.3 G/DL 11/23/2017 6:10 AM CDT [facility] HCT 36.1 35.9 - 44.6 % 11/23/2017 6:10 AM T [facility] MCV 85.3 80.0 - 96.0 FL 11/23/2017 6:10 AM T [facility] MCH 26.0 25.3 - 30.9 PG 11/23/2017 6:10 AM T [facility] MCHC 30.5(L) 31.0 - 34.1 G/DL 11/23/2017 6:10 AM T [facility] RDW 14.8 12.4 - 15.1 % 11/23/2017 6:10 AM [facility] PLT 152 151 - 353 x10'3/uL 11/23/2017 6:10 AM [facility] MPV 9.6 9.6 - 12.0 FL 11/23/2017 6:10 AM [facility] RBC MORPHOLOGY NORMAL 11/23/2017 6:10 AM [facility] PLT MORPH. NORMAL 11/23/2017 6:10 AM [facility] WBC MORPHOLOGY NORMAL 11/23/2017 6:10 AM [facility] LYMPHOCYTES % 13.5(L) 15.8 - 45.0 % 11/23/2017 6:10 AM T [facility] NEUTROPHILS % 79.1(H) 42.1 - 71.9 % 11/23/2017 6:10 AM T [facility] MONOCYTES % 6.0 5.7 - 12.5 % 11/23/2017 6:10 AM [facility] EOSINOPHILS 0.7 0.0 - 5.6 % 11/23/2017 6:10 AM CDT [facility] BASOPHILS 0.5 0.0 - 1.3 % 11/23/2017 6:10 AM CDT [facility] ABS. NEUTROPHILS TOTAL 4.87 1.40 - 6.00 x10'3/uL 11/23/2017 6:10 AM CDT [facility] IMMATURE GRANS % 0.2 0.0 - 0.5 % 11/23/2017 6:10 AM CDT [facility] ABS. LYMPHOCYTES 0.83 0.80 - 4.70 x10'3/uL 11/23/2017 6:10 AM CDT [facility] 11/23/2017 5:41 AM CDT 11/23/2017 5:42 AM CDT us Generic Conversion Md [facility] Final R esult [facility] [address] [place] [address], [place] [phone] * (ABNORMAL) BASIC METABOLIC PANEL (11/23/2017 5:41 AM CDT) GLUCOSE 52(L) 70 - 99 MG/DL 11/23/2017 6:22 AM CDT [facility] BUN 10 7 - 18 MG/DL 11/23/2017 6:22 AM T [facility] CREATININE S/P/B 0.64 0.55 - 1.02 MG/DL 11/23/2017 6:22 AM CDT [facility] SODIUM S/P/B 142 136 - 145 MMOL/L 11/23/2017 6:22 AM T [facility] POTASSIUM S/P/B 3.5 3.5 - 5.1 MMOL/L 11/23/2017 6:22 AM CDT [facility] CHLORIDE S/P/B 106 100 - 108 MMOL/L 11/23/2017 6:22 AM CDT [facility] CO2 18.4(L) 21 - 32 MMOL/L 11/23/2017 6:22 AM T [facility] CALCIUM S/P/B 8.2(L) 8.5 - 10.1 MG/DL 11/23/2017 6:22 AM T [facility] ANION GAP 21.1(H) 8 - 20 MMOL/L 11/23/2017 6:22 AM T [facility] BUN CREATININE RATIO 15.6 6 - 26 11/23/2017 6:22 AM T [facility] EGFR NON-AFR. AMER. 83(L) >90 ML/MIN/1.7 3 M2 11/23/2017 6:22 AM [facility] EGFR AFR. AMER. >90 >90 ML/MIN/1.7 3 M2 11/23/2017 6:22 AM [facility] Comment: NOTE: eGFR is not calculated for patients <18 years of age. This is an estimated GFR (CKD EPI) and should not be used for calculating drug doses. 11/23/2017 5:41 AM CDT 11/23/2017 5:42 AM CDT us Generic Conversion Md [facility] Final R esult [facility] [address] [place] [address], * (ABNORMAL) POCT glucose (11/22/2017 9:12 PM CDT) GLUCOSE POC 62(L) 70 - 110 mg/dL 11/22/2017 10:32 PM CDT [facility] ORDERS INTERFACE 11/22/2017 9:12 PM CDT 11/22/2017 10:32 PM CDT us Generic Conversion Md [facility] POCT ORDERABLES - DEVIC E Final Result [facility] ORDERS INTERFACE US * (ABNORMAL) POCT glucose (11/22/2017 3:53 PM CDT) GLUCOSE POC 69(L) 70 - 110 mg/dL 11/22/2017 10:32 PM CDT [facility] ORDERS INTERFACE 11/22/2017 3:53 PM CDT 11/22/2017 10:32 PM CDT us Generic Conversion Md [facility] POCT ORDERABLES - DEVIC E Final Result Performing Organization Address [facility]/ZIP Co de Phone Number [facility] ORDERS INTERFACE US * POCT glucose (11/22/2017 11:08 AM CDT) GLUCOSE POC 81 70 - 110 mg/dL 11/22/2017 11:16 AM CDT [facility] ORDERS INTERFACE 11/22/2017 11:0 8 AM CDT 11/22/2017 11:16 AM CDT us Generic Conversion Md B[facility] POCT ORDERABLES - DEVIC E Final Result Performing Organization Address City/[facility] Co de Phone Number [facility] ORDERS INTERFACE US * (ABNORMAL) COMPREHENSIVE METABOLIC PANEL (11/22/2017 9:16 AM CDT) GLUCOSE 99 70 - 99 MG/DL 11/22/2017 10:31 AM CDT [facility] BUN 13 7 - 18 MG/DL 11/22/2017 10:31 AM CDT [facility] CREATININE S/P/B 0.81 0.55 - 1.02 MG/DL 11/22/2017 10:31 AM CDT [facility] SODIUM S/P/B 142 136 - 145 MMOL/L 11/22/2017 10:31 AM CDT [facility] POTASSIUM S/P/B 3.6 3.5 - 5.1 MMOL/L 11/22/2017 10:31 AM [facility] CHLORIDE S/P/B 108 100 - 108 MMOL/L 11/22/2017 10:31 AM [facility] CO2 25.6 21 - 32 MMOL/L 11/22/2017 10:31 AM [facility] CALCIUM S/P/B 8.7 8.5 - 10.1 MG/DL 11/22/2017 10:31 AM [facility] BILIRUBIN TOTAL S/P/B 1.0 0.2 - 1.2 MG/DL 11/22/2017 10:31 AM [facility] TOTAL PROTEIN S/P/B 6.2(L) 6.4 - 8.2 G/DL 11/22/2017 10:31 AM [facility] ALBUMIN S/P/B 3.0(L) 3.4 - 5.0 G/DL 11/22/2017 10:31 AM [facility] AST 13(L) 15 - 37 U/L 11/22/2017 10:31 AM [facility] ALT 13(L) 14 - 55 U/L 11/22/2017 10:31 AM [facility] ALKALINE PHOSPHATASE S/P/B 74 50 - 136 U/L 11/22/2017 10:31 AM [facility] ANION GAP 12.0 8 - 20 MMOL/L 11/22/2017 10:31 AM [facility] BUN CREATININE RATIO 16.0 6 - 26 11/22/2017 10:31 AM [facility] A/G RATIO 0.9(L) 1.0 - 2.0 RATIO 11/22/2017 10:31 AM [facility] EGFR NON-AFR. AMER. 68(L) >90 ML/MIN/1.7 3 M2 11/22/2017 10:31 AM CDT [facility] EGFR AFR. AMER. 78(L) >90 ML/MIN/1.7 3 M2 11/22/2017 10:31 AM CDT [facility] Comment: NOTE: eGFR is not calculated for patients <18 years of age. This is an estimated GFR (CKD EPI) and should not be used for calculating drug doses. 11/22/2017 9:16 AM CDT 11/22/2017 9:23 AM CDT us Generic Conversion Md [facility] Final R esult [facility] [address] [place] [address], * (ABNORMAL) CBC W/DIFF AUTOMATED (11/22/2017 9:16 AM CDT) WBC 6.3 4.4 - 11.0 x10'3/uL 11/22/2017 9:34 AM CDT [facility] RBC 4.06(L) 4.50 - 5.10 x10'6/uL 11/22/2017 9:34 AM CDT [facility] HGB 11.0(L) 12.3 - 15.3 G/DL 11/22/2017 9:34 AM T [facility] HCT 33.6(L) 35.9 - 44.6 % 11/22/2017 9:34 AM CDT [facility] MCV 82.8 80.0 - 96.0 FL 11/22/2017 9:34 AM CDT [facility] MCH 27.1 25.3 - 30.9 PG 11/22/2017 9:34 AM CDT [facility] MCHC 32.7 31.0 - 34.1 G/DL 11/22/2017 9:34 AM T [facility] RDW 14.7 12.4 - 15.1 % 11/22/2017 9:34 AM [facility] PLT 160 151 - 353 x10'3/uL 11/22/2017 9:34 AM [facility] MPV 9.2(L) 9.6 - 12.0 FL 11/22/2017 9:34 AM [facility] RBC MORPHOLOGY NORMAL 11/22/2017 9:34 AM T [facility] PLT MORPH. NORMAL 11/22/2017 9:34 AM [facility] WBC MORPHOLOGY NORMAL 11/22/2017 9:34 AM [facility] LYMPHOCYTES % 10.7(L) 15.8 - 45.0 % 11/22/2017 9:34 AM [facility] NEUTROPHILS % 77.8(H) 42.1 - 71.9 % 11/22/2017 9:34 AM T [facility] MONOCYTES % 10.4 5.7 - 12.5 % 11/22/2017 9:34 AM [facility] EOSINOPHILS 0.5 0.0 - 5.6 % 11/22/2017 9:34 AM [facility] BASOPHILS 0.3 0.0 - 1.3 % 11/22/2017 9:34 AM [facility] ABS. NEUTROPHILS TOTAL 4.87 1.40 - 6.00 x10'3/uL 11/22/2017 9:34 AM T [facility] IMMATURE GRANS % 0.3 0.0 - 0.5 % 11/22/2017 9:34 AM [facility] ABS. LYMPHOCYTES 0.67(L) 0.80 - 4.70 x10'3/uL 11/22/2017 9:34 AM CDT [facility] 11/22/2017 9:16 AM CDT 11/22/2017 9:23 AM CDT us Generic Conversion Md [facility] Final R esult Performing Organization Address City/[facility]/ZIP Co de Phone Number [facility] [address] [place] [address], [place] [phone] * POCT glucose (11/22/2017 6:06 AM CDT) GLUCOSE POC 101 70 - 110 mg/dL 11/22/2017 6:40 AM CDT [facility] ORDERS INTERFACE 11/22/2017 6:0 6 AM CDT 11/22/2017 6:40 AM CDT us Generic Conversion Md [facility] POCT ORDERABLES - DEVIC E Final Result Performing Organization Address [facility]/ZIP Co de Phone Number [facility] ORDERS INTERFACE US * CULTURE, BACTERIA, BLOOD (11/22/2017 12:36 AM CDT) SPEC DESCRIPTION BLOOD 11/21/2017 11:59 PM CDT [facility] SPECIAL REQUESTS NO SPECIAL REQUEST 11/21/2017 11:59 PM CDT [facility] CULTURE RESULT NO GROWTH 6 DAYS 11/28/2017 1:49 PM CDT [facility] BLOOD SPECIMEN OBTAINED FOR BLOOD CULTURE / Unknown 11/22/2017 12:36 AM CDT 11/22/2017 12:44 AM CDT us Generic Conversion Md [facility] MICROBIOLOGY - GENERAL ORDERABLES Final Result [facility] [address] [place] [address], [place] [phone] [facility] [address] [place] [address], [place] [phone] * LACTIC ACID (11/22/2017 12:35 AM CDT) [facility] LACTIC ACID VENOUS 0.9 0.4 - 2.0 MMOL/L 11/22/2017 1:06 AM CDT [facility] PLASMA SPECIMEN / Unknown 11/22/2017 12:35 AM CDT 11/22/2017 12:44 AM CDT us Generic Conversion Md [facility] Final R esult [facility] [address] [place] [address], * CULTURE, BACTERIA, BLOOD (11/22/2017 12:30 AM CDT) [facility] SPEC DESCRIPTION BLOOD 11/21/2017 11:59 PM CDT [facility] SPECIAL REQUESTS NO SPECIAL REQUEST 11/21/2017 11:59 PM CDT [facility] GRAM STAIN RESULT GRAM POSITIVE COCCI RESEMBLING STAPHYLOCOCCUS SPECIES 11/23/2017 8:09 AM CDT [facility] GRAM STAIN RESULT GRAM STAIN CALLED TO REPEATED BACK BY ELINOR DUGAN AT 0807 ON 11/23/17 ZAFAR 11/23/2017 8:09 AM CDT [facility] CULTURE RESULT GROWTH OFSTAPHYLOCOCCUS EPIDERMIDIS 11/26/2017 8:22 AM CDT [facility] BLOOD SPECIMEN OBTAINED FOR BLOOD CULTURE / Unknown 11/22/2017 12:30 AM CDT 11/22/2017 12:43 AM CDT Narrative Organism Antibiotic Method Susceptibility Unknown CLINDAMYCIN FELIX (VITEK) <=0.25: Sensitive Unknown ERYTHROMYCIN FELIX (VITEK) <=0.25: Sensitive Unknown LEVOFLOXACIN FELIX (VITEK) <=0.12: Sensitive Unknown OXACILLIN FELXI (VITEK) <=0.25: Sensitive Unknown PENICILLIN G FLEIX (VITEK) <=0.03: Resistant Unknown TRIMETH-SULFAMETH. FELIX (VITEK) <=10: Sensitive Unknown TETRACYCLINE FELIX (VITEK) 2: Sensitive Comment: Organism code(s) sent by the ancillary, 'GROWTH OFSTAPHYLOCOCCUS EPIDERMIDIS', not recognized. Organism 'UNKNOWN' was substituted in its place. us Generic Conversion Md [facility] MICROBIOLOGY - GENERAL ORDERABLES Final Result [facility] [address] [place] [address], [place] [phone] [facility] [address] [place] [address], [place] [phone] * (ABNORMAL) URINALYSIS WI REFLEX TO CULTURE (11/21/2017 11:15 PM CDT) COLOR (U) YELLOW 11/21/2017 11:35 PM CDT [facility] TRANSPARENCY CLEAR 11/21/2017 11:35 PM CDT [facility] SPECIFIC GRAVITY (U) 1.010 1.000 - 1.030 11/21/2017 11:35 PM CDT [facility] U PH 7.0 5.0 - 9.0 11/21/2017 11:35 PM CDT [facility] LEUKOCYTES (U) TRACE(A) NEGATIVE 11/21/2017 11:35 PM CDT [facility] NITRITES NEGATIVE NEGATIVE 11/21/2017 11:35 PM CDT [facility] PROTEIN (U) NEGATIVE NEGATIVE 11/21/2017 11:35 PM CDT [facility] URINE GLUCOSE NEGATIVE NEGATIVE 11/21/2017 11:35 PM CDT [facility] KETONES MG/DL (U) NEGATIVE NEGATIVE 11/21/2017 11:35 PM CDT [facility] BILIRUBIN (U) NEGATIVE NEGATIVE 11/21/2017 11:35 PM CDT [facility] BLOOD (U) TRACE(A) NEGATIVE 11/21/2017 11:35 PM CDT [facility] WBC/HPF 0-5 0 - 5 /HPF 11/21/2017 11:35 PM CDT [facility] RBC/HPF 0-5 0 - 5 /HPF 11/21/2017 11:35 PM CDT [facility] EPI/HPF FEW /HPF 11/21/2017 11:35 PM CDT [facility] CULTURE & SENSITIVITY INDICATED? CULTURE IS NOT INDICATED 11/21/2017 11:35 PM CDT [facility] BACTERIA (U) RARE /HPF 11/21/2017 11:35 PM CDT [facility] 11/21/2017 11:1 5 PM CDT 11/21/2017 11:20 PM CDT us Generic Conversion Md BERMUDEZ URINE ORDERABLES Final Result Performing Organization Address City/[facility]/ZIP Co de Phone Number [facility] [address] [place] [address], [place] [phone] * LIPASE (11/21/2017 10:30 PM CDT) LIPASE 135 73 - 393 UNITS/L 11/21/2017 10:55 PM CDT [facility] SERUM OR PLASMA SPECIMEN / Unknown 11/21/2017 10:30 PM CDT 11/21/2017 10:35 PM CDT us Generic Conversion Md [facility] Final R esult Performing Organization Address City/[facility]/ZIP Co de Phone Number [facility] [address] [place] [address], [place] [phone] * (ABNORMAL) COMPREHENSIVE METABOLIC PANEL (11/21/2017 10:30 PM CDT) [facility] GLUCOSE 130(H) 70 - 99 MG/DL 11/21/2017 10:55 PM T [facility] BUN 11 7 - 18 MG/DL 11/21/2017 10:55 PM T [facility] CREATININE S/P/B 0.81 0.55 - 1.02 MG/DL 11/21/2017 10:55 PM T [facility] SODIUM S/P/B 140 136 - 145 MMOL/L 11/21/2017 10:55 PM T [facility] POTASSIUM S/P/B 3.7 3.5 - 5.1 MMOL/L 11/21/2017 10:55 PM T [facility] CHLORIDE S/P/B 103 100 - 108 MMOL/L 11/21/2017 10:55 PM T [facility] CO2 25.3 21 - 32 MMOL/L 11/21/2017 10:55 PM T [facility] CALCIUM S/P/B 9.3 8.5 - 10.1 MG/DL 11/21/2017 10:55 PM T [facility] BILIRUBIN TOTAL S/P/B 0.7 0.2 - 1.2 MG/DL 11/21/2017 10:55 PM T [facility] TOTAL PROTEIN S/P/B 7.1 6.4 - 8.2 G/DL 11/21/2017 10:55 PM T [facility] ALBUMIN S/P/B 3.6 3.4 - 5.0 G/DL 11/21/2017 10:55 PM T [facility] AST 13(L) 15 - 37 U/L 11/21/2017 10:55 PM T [facility] ALT 14 14 - 55 U/L 11/21/2017 10:55 PM CDT [facility] ALKALINE PHOSPHATASE S/P/B 95 50 - 136 U/L 11/21/2017 10:55 PM CDT [facility] ANION GAP 15.4 8 - 20 MMOL/L 11/21/2017 10:55 PM CDT [facility] BUN CREATININE RATIO 13.6 6 - 26 11/21/2017 10:55 PM CDT [facility] A/G RATIO 1.0 1.0 - 2.0 RATIO 11/21/2017 10:55 PM CDT [facility] EGFR NON-AFR. AMER. 68(L) >90 ML/MIN/1.7 3 M2 11/21/2017 10:55 PM CDT [facility] EGFR AFR. AMER. 78(L) >90 ML/MIN/1.7 3 M2 11/21/2017 10:55 PM CDT [facility] Comment: NOTE: eGFR is not calculated for patients <18 years of age. This is an estimated GFR (CKD EPI) and should not be used for calculating drug doses. 11/21/2017 10:3 0 PM CDT 11/21/2017 10:35 PM CDT us Generic Conversion Md [facility] Final R esult [facility] [address] [place] [address], * (ABNORMAL) CBC W/DIFF AUTOMATED (11/21/2017 10:30 PM CDT) WBC 7.4 4.4 - 11.0 x10'3/uL 11/21/2017 10:41 PM CDT [facility] RBC 4.71 4.50 - 5.10 x10'6/uL 11/21/2017 10:41 PM CDT [facility] HGB 12.4 12.3 - 15.3 G/DL 11/21/2017 10:41 PM [facility] HCT 38.8 35.9 - 44.6 % 11/21/2017 10:41 PM [facility] MCV 82.4 80.0 - 96.0 FL 11/21/2017 10:41 PM [facility] MCH 26.3 25.3 - 30.9 PG 11/21/2017 10:41 PM [facility] MCHC 32.0 31.0 - 34.1 G/DL 11/21/2017 10:41 PM [facility] RDW 14.7 12.4 - 15.1 % 11/21/2017 10:41 PM [facility] PLT 173 151 - 353 x10'3/uL 11/21/2017 10:41 PM [facility] MPV 9.5(L) 9.6 - 12.0 FL 11/21/2017 10:41 PM [facility] RBC MORPHOLOGY NORMAL 11/21/2017 10:41 PM [facility] PLT MORPH. NORMAL 11/21/2017 10:41 PM [facility] WBC MORPHOLOGY NORMAL 11/21/2017 10:41 PM [facility] LYMPHOCYTES % 6.8(L) 15.8 - 45.0 % 11/21/2017 10:41 PM [facility] NEUTROPHILS % 84.0(H) 42.1 - 71.9 % 11/21/2017 10:41 PM [facility] MONOCYTES % 8.0 5.7 - 12.5 % 11/21/2017 10:41 PM [facility] EOSINOPHILS 0.4 0.0 - 5.6 % 11/21/2017 10:41 PM CDT [facility] BASOPHILS 0.4 0.0 - 1.3 % 11/21/2017 10:41 PM CDT [facility] ABS. NEUTROPHILS TOTAL 6.21(H) 1.40 - 6.00 x10'3/uL 11/21/2017 10:41 PM CDT [facility] IMMATURE GRANS % 0.4 0.0 - 0.5 % 11/21/2017 10:41 PM CDT [facility] ABS. LYMPHOCYTES 0.50(L) 0.80 - 4.70 x10'3/uL 11/21/2017 10:41 PM CDT [facility] 11/21/2017 10:3 0 PM CDT 11/21/2017 10:35 PM CDT us Generic Conversion Md [facility] Final R esult [facility] [address] [place] [address], documented in this encounter Visit Diagnoses Diagnosis Sepsis (CMS/HCC HHS/HCC) documented in this encounter Care Teams Relief Captain Relationship Specialty Start Date End Date Noemi Barnard MD PCP - General INTERNAL MEDICINE 02/22/18 07/03/18 documented as of this encounter
--- OUTSIDE RECORDS SUMMARY | 2024-04-05 00:26 | XMS_ITS | Encounter Summary ---
Author Organization [facility] Address [facility] [place], [place] [address] [place] [address] Care Team Providers Care Dean Of Women Name Role Phone Noemi Barnard MD Primary Care Provider + [phone] Joni Mckeon MD Unavailable [phone] Martha Ruiz NP Primary Care Provider Noemi Gracia MD Primary Care Provider + [phone] Sandra Johnson RN Unavailable [phone] None, Provider Primary Care Provider Unavaila ble Encounter Details Date Type Department Care Team (Latest Contact Info) Description 12/08/2017 Abstract [facility] [place] [address] [place] [address] Social History Tobacco Use Types [...] Rule Out 02/12/2020 02/12/2020 02/13/2020 8:51 AM HOME MISSION WORKER COVID-19 Rule Out 04/16/2020 04/16/2020 04/17/2020 6:26 PM HOME MISSION WORKER COVID-19 Rule Out 05/14/2021 05/14/2021 05/14/2021 11:02 AM HOME MISSION WORKER documented as of this encounter Care Teams Dean Of Women Relationship Specialty Start Date End Date Noemi Barnard MD PCP - General INTERNAL MEDICINE 02/22/18 07/03/18 Martha Ruiz NP [facility]. [facility] [address] [place] [address] PCP - General NURSE PRACTITIONER 07/04/18 08/22/18 Noemi Barnard MD PCP - General INTERNAL MEDICINE 08/23/18 03/03/23 None, Provider, PCP - General UNKNOWN PHYSICIAN SPECIALTY 03/04/23 Joni Mckeon MD [facility]. [facility] [address] [place] [address] [place] Change Management Manager CARDIOVASCULAR DISEASE 07/04/18 Sandra Johnson, RN [address] [place] [address] Network Engineering Advisor (Ambulatory) REGISTERED NURSE 05/12/21 06/29/21 documented as of this encounter
--- OUTSIDE RECORDS SUMMARY | 2024-04-05 00:26 | XMS_ITS | Encounter Summary ---
Author Organization [facility] Address [facility] [place] [address] [place] [address] Care Team Providers Care Tavern Car Attendant Name Role Phone Unavailable Primary Care Provider Unavailabl e Encounter Details Date Type Department Care Team (Latest Contact Info) Description 12/08/2017 Abstract [facility] [place] [address] [place] [address] Social History Tobacco Use Types [...] Associated Diagnosis Comments BASIC METABOLIC PANEL Routine 12/08/2017 8:30 AM CDT CBC, AUTO, NO DIFF Routine 12/08/2017 8: 30 AM CDT documented in this encounter Results * CBC, AUTO, NO DIFF (12/08/2017 8:30 AM CDT) WBC 4.4 4.4 - 11.0 x10'3/uL [facility] CON[facility] RBC 4.80 4.50 - 5.10 x10'6/uL [facility] HGB 12.9 12.3 - 15.3 G/DL [facility] CON[facility] HCT 40.0 35.9 - 44.6 % [facility] CONVERSION MCV 83.3 80.0 - 96.0 FL [facility] CONVERSION MCH 26.9 25.3 - 30.9 PG [facility] CONVERSION MCHC 32.3 31.0 - 34.1 G/DL [facility] TO [facility] CONVERSION RDW 14.9 12.4 - 15.1 % [facility] TO EP[facility] CONVERSION PLT 293 151 - 353 x10'3/uL [facility] CONVERSION MPV 10.6 9.6 - 12.0 FL [facility] TO [facility] CONVERSION 12/08/2017 8:30 AM CDT 12/08/2017 8:30 AM CDT Narrative [facility] CONVERSION - 12/08/2017 10:45 AM CDT Result Communication: Call patient with results Noemi Barnard MD LABORATORY Final Result [facility] CONVERSION * (ABNORMAL) BASIC METABOLIC PANEL (12/08/2017 8:30 AM CDT) Pathologist [facility] GLUCOSE 98 70 - 99 MG/DL [facility] TO EPIC CONVERSION BUN 15 7 - 18 MG/DL [facility] TO EPIC CONVERSION CREATININE S/P/B 0.76 0.55 - 1.02 MG/DL [facility] TO EPIC CONVERSION SODIUM S/P/B 140 136 - 145 MMOL/L [facility] TO EPIC CONVERSION POTASSIUM S/P/B 4.4 3.5 - 5.1 MMOL/L [facility] TO EPIC CONVERSION CHLORIDE S/P/B 103 100 - 108 MMOL/L [facility] TO EPIC CONVERSION CO2 26.4 21 - 32 MMOL/L [facility] TO EPIC CONVERSION CALCIUM S/P/B 10.1 8.5 - 10.1 MG/DL [facility] TO EPIC CONVERSION ANION GAP 15.0 8 - 20 MMOL/L [facility] TO EPIC CONVERSION BUN CREATININE RATIO 19.7 6 - 26 [facility] TO EPIC CONVERSION GFR ESTIMATE 73(L) >90 ML/MIN/1.7 3 M2 [facility] TO EPIC CONVERSION EGFR AFR. AMER. 85(L) >90 ML/MIN/1.7 3 M2 [facility] TO EPIC CONVERSION Comment: Result Comment: NOTE: eGFR is not calculated for patients <18 years of age. This is an estimated GFR (CKD EPI) and should not be used for calculating drug doses. 12/08/2017 8:30 AM CDT 12/08/2017 8:30 AM CDT Narrative [facility] TO EPIC CONVERSION - 12/08/2017 10:51 AM CDT Result Communication: Call patient with results us Noemi Barnard MD LABORATORY Final Result [facility] TO EPIC CONVERSION documented in this encounter Visit Diagnoses Not on filedocumented in this encounter
--- OUTSIDE RECORDS SUMMARY | 2024-04-05 00:26 | XMS_ITS | Encounter Summary ---
Author Organization [facility] Address [address] [place] [address]. [place], [place] [id number] [place] [id number] Care Team Providers Care Electrophonic Engineer Name Role Phone Noemi Barnard MD Primary Care Provider + [phone] Joni Mckeon MD Unavailable [phone] Martha Ruiz NP Primary Care Provider Noemi Gracia MD Primary Care Provider + [phone] Sandra Johnson RN Unavailable [phone] None, Provider Primary Care Provider Unavaila ble Encounter Details Date Type Department Care Team (Latest Contact Info) Description 12/07/2017 Abstract [facility] Rhianna Abreu MD Social History [...] Rule Out 02/12/2020 02/12/2020 02/13/2020 8:51 AM CAMP DIRECTOR COVID-19 Rule Out 04/16/2020 04/16/2020 04/17/2020 6:26 PM CAMP DIRECTOR COVID-19 Rule Out 05/14/2021 05/14/2021 05/14/2021 11:02 AM CAMP DIRECTOR documented as of this encounter Care Teams Electrophonic Engineer Relationship Specialty Start Date End Date Noemi Barnard MD PCP - General INTERNAL MEDICINE 02/22/18 07/03/18 Martha Ruiz NP [facility]. [facility] [address] [place] [address] PCP - General NURSE PRACTITIONER 07/04/18 08/22/18 Noemi Barnard MD PCP - General INTERNAL MEDICINE 08/23/18 03/03/23 None, MD Jared PCP - General UNKNOWN PHYSICIAN SPECIALTY 03/04/23 Joni Mckeon MD [facility]. [facility] [address] [place] [address] [employer] Production Manager CARDIOVASCULAR DISEASE 07/04/18 Sandra Johnson, RN [address] [place] [address] Pharmacist Aide (Ambulatory) REGISTERED NURSE 05/12/21 06/29/21 documented as of this encounter
--- OUTSIDE RECORDS SUMMARY | 2024-04-05 00:26 | XMS_ITS | Encounter Summary ---
Author Organization [facility] Address [address] [facility] [facility] [address] [place] [address] Care Team Providers Care Hatchery Supervisor Name Role Phone Unavailable Primary Care Provider Unavailabl e Encounter Details Date Type Department Care Team (Latest Contact Info) Description 12/09/2017 Abstract [facility] [...] as of this encounter Progress Notes * Generic Conversion MD Brady - 12/09/2017 10:55 AM CDT Message Recorded as Task Date: 12/09/2017 07:43 AM, Created By: Noemi Beltran Task Name: Results Inquiry [facility] Nurse Team Regarding Patient: Roxana Ch, Status: In Progress Comment: Noemi Beltran - 09 Dec 2017 7:43 AM TASK CREATED Patient called requesting results of her recent blood work. Please review and advise. Thanks. Radha Monge - 09 Dec 2017 3:26 PM TASK EDITED Roxana called again for the results of her labs Bianca Larson - 10 Dec 2017 3:27 PM TASK EDITED Pt. calling again inquiring about the lab test results. Please show different provider if any abnormal. [phone] Herlinda Xiao 10 Dec 2017 3:48 PM TASK IN PROGRESS Herlinda Xiao 10 Dec 2017 3:51 PM TASK EDITED Test results have not yet been verified. MA contacted patient and told her once Dr. Franklin verifies the most recent labs, we would give her a call with any information. Pt is aware and v/u. Plan 1. Gastroenterology Referral Outpatient Please refer patient to GI as she has recently been hospitalized for sepsis and diverticulitis. Has seen Dr. Burrows in the past Status: Active Requested for: [id number] Ordered; For: Diverticulitis; Ordered By: Marcella Lane Performed: Due: [id number]; Last Updated By: Oralia Cheng; 12/09/2017 10:55:20 AM see FS Signatures Electronically signed by : Herlinda Xiao MA; Dec 10 2017 3:51PM ACCOUNTING GENERALIST (Author) documented in this encounter Plan of Treatment Not on file documented as of this encounter Visit Diagnoses Not on filedocumented in this encounter
--- OUTSIDE RECORDS SUMMARY | 2024-04-05 00:26 | XMS_ITS | Encounter Summary ---
Author Organization [facility] Address [address] [place] [address]. [place], [place] [address] [place] [address] Care Team Providers Care Signals Intelligence Superintendent Name Role Phone Unavailable Primary Care Provider Unavailabl e Encounter Details Date Type Department Care Team (Latest Contact Info) Description 11/22/2017 Abstract [facility] , Rhianna Castaneda MD [...]
--- OUTSIDE RECORDS SUMMARY | 2024-04-05 00:26 | XMS_ITS | Encounter Summary ---
Author Organization [facility] Address [address] [place] [address]. [place] [address] [place] [address] Care Team Providers Care Sales Agent Pest Control Service Name Role Phone Unavailable Primary Care Provider Unavailabl e Encounter Details Date Type Department Care Team (Latest Contact Info) Description 12/16/2017 Abstract [facility] , Rhianna Castaneda MD Social History Tobacco Use Types Packs/Day Years Used Date Smoking Tobacco: Never Assessed Comments Unknown Sex and Gender Information Value Date Recorded Sex Assigned at Not on file Legal Sex Female 8:14 PM CDT Gender Identity Not on file Sexual Orientation Not on file documented as of this encounter Progress Notes * Noemi Barnard MD - 12/16/2017 7:25 AM CDT Verified Results CBC WO Diff ( Hemogram ) [id number] 08:30AM Noemi Barnard Test Name Result Flag Reference White Blood Cell Count (WBC) 4.4 x10'3/uL 4.4-11.0 Red Blood Cell Count (RBC) 4.80 x10'6/uL 4.50-5.10 Hemoglobin (HGB) 12.9 G/DL 12.3-15.3 Hematocrit (HCT) 40.0 % 35.9-44.6 Mean Corpuscular Volume (MCV) 83.3 FL 80.0-96.0 Mean Corpuscular Hgb (MCH) 26.9 PG 25.3-30.9 Mean Corpuscular Hgb Conc (MCH 32.3 G/DL 31.0-34.1 Red Cell Distrib Width (RDW) 14.9 % 12.4-15.1 Platelet Count (PLT) 293 x10'3/uL 151-353 Mean Platelet Volume (MPV) 10.6 FL 9.6-12.0 Basic Metabolic Prof ( BMP ) [id number] 08:30AM Noemi Barnard Test Name Result Flag Reference Glucose 98 MG/DL 70-99 Blood Urea Nitrogen (BUN) 15 MG/DL 7-18 Creatinine 0.76 MG/DL 0.55-1.02 Sodium (Na) 140 MMOL/L 136-145 Potassium (K) 4.4 MMOL/L 3.5-5.1 Chloride (Cl) 103 MMOL/L 100-108 Carbon Dioxide (CO2) 26.4 MMOL/L 21-32 Calcium 10.1 MG/DL 8.5-10.1 Anion Gap 15.0 MMOL/L 8-20 BUN Creatinine Ratio 19.7 6-26 Glomerular Filt Rate Calc 73 ML/MIN/1.73 M2 L >90 Glomerular Filt Rate (AA) Calc 85 ML/MIN/1.73 M2 L >90 NOTE: eGFR is not calculated for patients <18 years of age. This is an estimated GFR (CKD EPI) and should not be used for calculating drug doses. documented in this encounter Plan of Treatment Not on file documented as of this encounter Visit Diagnoses Not on filedocumented in this encounter
--- OUTSIDE RECORDS SUMMARY | 2024-04-05 00:26 | XMS_ITS | Encounter Summary ---
Author Organization [facility] Address [address] [place] [address]. [place] [address] [place] [address] Care Team Providers Care Sales Donor Recruitment Representative Name Role Phone Noemi Barnard MD Primary Care Provider Encounter Details Date Type Department Care Team (Late st Contact Info) Description 12/08/2017 Abstract [facility] [address] [place], [place] [id number] [place] [address] [place], [place] [id number] Social History Tobacco Use Types Packs/Day Years [...] CDT) WBC 4.4 4.4 - 11.0 x10'3/uL 12/08/2017 10:45 AM CDT [facility] RBC 4.80 4.50 - 5.10 x10'6/uL 12/08/2017 10:45 AM CDT [facility] HGB 12.9 12.3 - 15.3 G/DL 12/08/2017 10:45 AM CDT [facility] HCT 40.0 35.9 - 44.6 % 12/08/2017 10:45 AM CDT [facility] MCV 83.3 80.0 - 96.0 FL 12/08/2017 10:45 AM CDT [facility] MCH 26.9 25.3 - 30.9 PG 12/08/2017 10:45 AM CDT [facility] MCHC 32.3 31.0 - 34.1 G/DL 12/08/2017 10:45 AM CDT [facility] RDW 14.9 12.4 - 15.1 % 12/08/2017 10:45 AM CDT [facility] PLT 293 151 - 353 x10'3/uL 12/08/2017 10:45 AM CDT [facility] MPV 10.6 9.6 - 12.0 FL 12/08/2017 10:45 AM T [facility] 12/08/2017 8:30 AM CDT 12/08/2017 10:42 AM CDT us Generic Conversion Md [facility] Final R esult [facility] [address] [place] [address], * (ABNORMAL) BASIC METABOLIC PANEL (12/08/2017 8:30 AM CDT) [facility] GLUCOSE 98 70 - 99 MG/DL 12/08/2017 10:51 AM [facility] BUN 15 7 - 18 MG/DL 12/08/2017 10:51 AM [facility] CREATININE S/P/B 0.76 0.55 - 1.02 MG/DL 12/08/2017 10:51 AM [facility] SODIUM S/P/B 140 136 - 145 MMOL/L 12/08/2017 10:51 AM [facility] POTASSIUM S/P/B 4.4 3.5 - 5.1 MMOL/L 12/08/2017 10:51 AM [facility] CHLORIDE S/P/B 103 100 - 108 MMOL/L 12/08/2017 10:51 AM [facility] CO2 26.4 21 - 32 MMOL/L 12/08/2017 10:51 AM [facility] CALCIUM S/P/B 10.1 8.5 - 10.1 MG/DL 12/08/2017 10:51 AM [facility] ANION GAP 15.0 8 - 20 MMOL/L 12/08/2017 10:51 AM [facility] BUN CREATININE RATIO 19.7 6 - 26 12/08/2017 10:51 AM [facility] EGFR NON-AFR. AMER. 73(L) >90 ML/MIN/1.7 3 M2 12/08/2017 10:51 AM [facility] EGFR AFR. AMER. 85(L) >90 ML/MIN/1.7 3 M2 12/08/2017 10:51 AM [facility] Comment: NOTE: eGFR is not calculated for patients <18 years of age. This is an estimated GFR (CKD EPI) and should not be used for calculating drug doses. 12/08/2017 8:30 AM CDT 12/08/2017 10:42 AM CDT us Generic Conversion Md [facility] Final R esult [facility] [address] [place] [address], documented in this encounter Visit Diagnoses Diagnosis Diverticulitis of intestine without perforation or abscess without bleeding Diverticulitis of colon (without mention of hemorrhage) documented in this encounter Care Teams Sales Donor Recruitment Representative Relationship Specialty Start Date End Date Noemi Barnard MD PCP - General INTERNAL MEDICINE 02/22/18 07/03/18 documented as of this encounter
--- OUTSIDE RECORDS SUMMARY | 2024-04-05 00:26 | XMS_ITS | Encounter Summary ---
Author Organization [facility] Address [address] [place] [address]. [place] [address] [place] [address] Care Team Providers Care Roof Tile Layer Name Role Phone Unavailable Primary Care Provider Unavailabl e Encounter Details Date Type Department Care Team (Latest Contact Info) Description 11/21/2017 Abstract [facility] [place] [address] [place] [address] Social History Tobacco Use Types [...]
--- OUTSIDE RECORDS SUMMARY | 2024-04-05 00:26 | XMS_ITS | Encounter Summary ---
Author Organization [facility] Address [address] [place] [address]. 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
--- OUTSIDE RECORDS SUMMARY | 2024-04-05 00:26 | XMS_ITS | Encounter Summary ---
Author Organization [facility] Address [address] [place] [address]. [place], [place] [address] [place] [address] Care Team Providers Care Photographic Equipment Technician Name Role Phone Noemi Barnard MD Primary Care Provider [phone] Joni Mckeon MD Unavailable [phone] Martha Ruiz NP Primary Care Provider Noemi Gracia MD Primary Care Provider + [phone] Sandra Johnson RN Unavailable [phone] None, Provider Primary Care Provider Unavaila ble Encounter Details Date Type Department Care Team (Latest Contact Info) Description 12/02/2017 Abstract [facility] Rhianna Abreu MD Social [...] Rule Out 02/12/2020 02/12/2020 02/13/2020 8:51 AM OVEN OPERATOR COVID-19 Rule Out 04/16/2020 04/16/2020 04/17/2020 6:26 PM OVEN OPERATOR COVID-19 Rule Out 05/14/2021 05/14/2021 05/14/2021 11:02 AM OVEN OPERATOR documented as of this encounter Care Teams Photographic Equipment Technician Relationship Specialty Start Date End Date Noemi Barnard MD PCP - General INTERNAL MEDICINE 02/22/18 07/03/18 Martha Ruiz NP [facility]. [facility] [address] [place] [address] PCP - General NURSE PRACTITIONER 07/04/18 08/22/18 Noemi Barnard MD PCP - General INTERNAL MEDICINE 08/23/18 03/03/23 None, MD Jared PCP - General UNKNOWN PHYSICIAN SPECIALTY 03/04/23 Joni Mckeon MD [facility]. [facility] [address] [place] [address] [place] [facility] CARDIOVASCULAR DISEASE 07/04/18 Sandra Johnson, RN [address] [place] [address] Process Safety Management Engineer (Ambulatory) REGISTERED NURSE 05/12/21 06/29/21 documented as of this encounter
--- OUTSIDE RECORDS SUMMARY | 2024-04-05 00:26 | XMS_ITS | Encounter Summary ---
Author Organization [facility] Address [address] [facility] [place] [address] [place] [address] Care Team Providers Care Cheese Cooker Name Role Phone Unavailable Primary Care Provider Unavailabl e Encounter Details Date Type Department Care Team (Latest Contact Info) Description 11/30/2017 Abstract [facility] , Generic ConversionMD Social History Tobacco Use Types Packs/Day Years Used Date Smoking Tobacco: Never Assessed Comments Unknown Sex and Gender Information Value Date Recorded Sex Assigned at Not on file Legal Sex Female 8:14 PM CDT Gender Identity Not on file Sexual Orientation Not on file documented as of this encounter Progress Notes * Generic Conversion MD Brady - 11/30/2017 4:02 PM CDT Message Date of Hospital/[place] Discharge: 11/30/17 Date of Contact: 11/30/17 Individual Contacted: Roxana Contacted by: Melanie DUGAN Reviewed/ Addressed Self-Management Addressed, Independent Living Addressed, ADLS Addresses, Medication Management, Facilitation of Necessary Care and Services and Treatment Regimen Reviewed as Prescribed on Discharge Pt was discharged on 11/30/17 from [facility] DX Sepsis and Diverticulitis. Pt stated that she will be getting [facility] Home Health. Pt has a TCM follow up scheduled with Marcella Lane APN on 12/03/17 and willbe scheduling a follow up with GI specialist Dr. Burrows. PT reports that she is weak, but is getting around the home ok with her walker. PT denies any medication changes, but reports being discharged onABT. States she is taking Amoxclav 500mg BID. Pt denies any question or concerns at this time. Signatures Electronically signed by : Melanie Baltazar, ; Nov 30 2017 4:06PM ACCOUNT SUPPORT ASSOCIATE (Author) documented in this encounter Plan of Treatment Not on file documented as of this encounter Visit Diagnoses Not on filedocumented in this encounter
--- OUTSIDE RECORDS SUMMARY | 2024-04-05 00:26 | XMS_ITS | Encounter Summary ---
Author Organization [facility] Address [address] [place] [address]. [place] [address] [place] [address] Care Team Providers Care Lab Engineer Name Role Phone Noemi Barnard MD Primary Care Provider [phone] Encounter Details Date Type Department Care Team (Late st Contact Info) Description 11/26/2017 Abstract [facility] [address] [place], [place] [id number] Heraclio Cosme MD [address] [facility] [address] [place] [address] [place] [address] [phone] (Work) Social History Tobacco Use Types Packs/Day [...] Procedure Name Priority Date/Time Associated Diagnosis Comments CULTURE, BACTERIA, BLOOD TIMED 11/30/2017 9:19 AM CDT POCT GLUCOSE - MARISCAL DOCKED DEVICE Routine 11/30/2017 6:07 AM CDT BASIC METABOLIC PANEL Routine 11/30/2017 5:25 AM CDT CBC W/DIFF AUTOMATED Routine 11/30/2017 5:25 AM CDT POCT GLUCOSE - MARISCAL DOCKED DEVICE Routine 11/29/2017 6:06 AM CDT POCT GLUCOSE - MARISCAL DOCKED DEVICE Routine 11/28/2017 4:48 PM CDT POCT GLUCOSE - MARISCAL DOCKED DEVICE Routine 11/28/2017 6:13 AM CDT POCT GLUCOSE - MARISCAL DOCKED DEVICE Routine 11/27/2017 8:11 PM CDT POCT GLUCOSE - MARISCAL DOCKED DEVICE Routine 11/27/2017 4:56 PM CDT COMPREHENSIVE METABOLIC PANEL Routine 11/27/2017 9:31 AM CDT CBC W/DIFF AUTOMATED Routine 11/27/2017 9:31 AM CDT POCT GLUCOSE - MARISCAL DOCKED DEVICE Routine 11/26/2017 8:26 PM CDT documented in this encounter Results * CULTURE, BACTERIA, BLOOD (11/30/2017 9:19 AM CDT) SPEC DESCRIPTION BLOOD 11/30/2017 9:05 AM CDT [facility] SPECIAL REQUESTS NO SPECIAL REQUEST 11/30/2017 9:05 AM CDT [facility] CULTURE RESULT NO GROWTH 5 DAYS 12/05/2017 11:07 AM CDT [facility] BLOOD SPECIMEN OBTAINED FOR BLOOD CULTURE / Unknown 11/30/2017 9:19 AM CDT 11/30/2017 9:36 AM CDT us Generic Conversion Md BERMUDEZ MICROBIOLOGY - GENERAL ORDERABLES Final Result [facility] [address] [place] [address], [place] [phone] [facility] [address] [place] [address], [place] [phone] * POCT glucose (11/30/2017 6:07 AM CDT) GLUCOSE POC 87 70 - 110 mg/dL 11/30/2017 6:23 AM CDT [facility] ORDERS INTERFACE 11/30/2017 6:07 AM CDT 11/30/2017 6:23 AM CDT us Generic Conversion Md BERMUDEZ POCT ORDERABLES - DEVIC E Final Result [facility] ORDERS INTERFACE US * (ABNORMAL) CBC W/DIFF AUTOMATED (11/30/2017 5:25 AM CDT) WBC 4.0(L) 4.4 - 11.0 x10'3/uL 11/30/2017 5:38 AM CDT [facility] RBC 4.28(L) 4.50 - 5.10 x10'6/uL 11/30/2017 5:38 AM CDT [facility] HGB 11.3(L) 12.3 - 15.3 G/DL 11/30/2017 5:38 AM CDT [facility] HCT 35.8(L) 35.9 - 44.6 % 11/30/2017 5:38 AM CDT [facility] MCV 83.6 80.0 - 96.0 FL 11/30/2017 5:38 AM CDT [facility] MCH 26.4 25.3 - 30.9 PG 11/30/2017 5:38 AM CDT [facility] MCHC 31.6 31.0 - 34.1 G/DL 11/30/2017 5:38 AM [facility] RDW 15.0 12.4 - 15.1 % 11/30/2017 5:38 AM [facility] PLT 224 151 - 353 x10'3/uL 11/30/2017 5:38 AM [facility] MPV 9.1(L) 9.6 - 12.0 FL 11/30/2017 5:38 AM [facility] RBC MORPHOLOGY NORMAL 11/30/2017 5:38 AM [facility] PLT MORPH. NORMAL 11/30/2017 5:38 AM [facility] WBC MORPHOLOGY NORMAL 11/30/2017 5:38 AM [facility] LYMPHOCYTES % 25.4 15.8 - 45.0 % 11/30/2017 5:38 AM [facility] NEUTROPHILS % 58.7 42.1 - 71.9 % 11/30/2017 5:38 AM [facility] MONOCYTES % 11.3 5.7 - 12.5 % 11/30/2017 5:38 AM [facility] EOSINOPHILS 3.3 0.0 - 5.6 % 11/30/2017 5:38 AM [facility] BASOPHILS 0.8 0.0 - 1.3 % 11/30/2017 5:38 AM [facility] ABS. NEUTROPHILS TOTAL 2.33 1.40 - 6.00 x10'3/uL 11/30/2017 5:38 AM [facility] IMMATURE GRANS % 0.5 0.0 - 0.5 % 11/30/2017 5:38 AM [facility] ABS. LYMPHOCYTES 1.01 0.80 - 4.70 x10'3/uL 11/30/2017 5:38 AM CDT [facility] 11/30/2017 5:25 AM CDT 11/30/2017 5:26 AM CDT us Generic Conversion Md BERMUDEZ LABORATORY Final R esult [facility] [address] [place] [address], * (ABNORMAL) BASIC METABOLIC PANEL (11/30/2017 5:25 AM CDT) GLUCOSE 99 70 - 99 MG/DL 11/30/2017 6:30 AM CDT [facility] BUN 22(H) 7 - 18 MG/DL 11/30/2017 6:30 AM CDT [facility] CREATININE S/P/B 0.75 0.55 - 1.02 MG/DL 11/30/2017 6:30 AM CDT [facility] SODIUM S/P/B 142 136 - 145 MMOL/L 11/30/2017 6:30 AM T [facility] POTASSIUM S/P/B 4.2 3.5 - 5.1 MMOL/L 11/30/2017 6:30 AM T [facility] CHLORIDE S/P/B 106 100 - 108 MMOL/L 11/30/2017 6:30 AM T [facility] CO2 29.3 21 - 32 MMOL/L 11/30/2017 6:30 AM T [facility] CALCIUM S/P/B 9.5 8.5 - 10.1 MG/DL 11/30/2017 6:30 AM CDT [facility] ANION GAP 10.9 8 - 20 MMOL/L 11/30/2017 6:30 AM CDT [facility] BUN CREATININE RATIO 29.3(H) 6 - 26 11/30/2017 6:30 AM CDT [facility] EGFR NON-AFR. AMER. 74(L) >90 ML/MIN/1.7 3 M2 11/30/2017 6:30 AM CDT [facility] EGFR AFR. AMER. 86(L) >90 ML/MIN/1.7 3 M2 11/30/2017 6:30 AM CDT [facility] Comment: NOTE: eGFR is not calculated for patients <18 years of age. This is an estimated GFR (CKD EPI) and should not be used for calculating drug doses. 11/30/2017 5:25 AM CDT 11/30/2017 5:26 AM CDT us Generic Conversion Md BERMUDEZ LABORATORY Final R esult Performing Organization Address City/[facility]/ZIP Co de Phone Number [facility] [address] [place] [address], * POCT glucose (11/29/2017 6:06 AM CDT) GLUCOSE POC 77 70 - 110 mg/dL 11/30/2017 7:13 AM CDT [facility] ORDERS INTERFACE 11/29/2017 6:06 AM CDT 11/30/2017 7:13 AM CDT us Generic Conversion Md BERMUDEZ POCT ORDERABLES - DEVIC E Final Result [facility] ORDERS INTERFACE US * POCT glucose (11/28/2017 4:48 PM CDT) GLUCOSE POC 80 70 - 110 mg/dL 11/29/2017 7:23 PM CDT [facility] ORDERS INTERFACE 11/28/2017 4:48 PM CDT 11/29/2017 7:23 PM CDT us Generic Conversion Md BERMUDEZ POCT ORDERABLES - DEVIC E Final Result Performing Organization Address City/[facility]/ZIP Co de Phone Number [facility] ORDERS INTERFACE US * POCT glucose (11/28/2017 6:13 AM CDT) GLUCOSE POC 83 70 - 110 mg/dL 11/29/2017 7:23 PM CDT [facility] ORDERS INTERFACE 11/28/2017 6:13 AM CDT 11/29/2017 7:23 PM CDT us Generic Conversion Md BERMUDEZ POCT ORDERABLES - DEVIC E Final Result Performing Organization Address [facility]/ZIP Co de Phone Number [facility] ORDERS INTERFACE US * (ABNORMAL) POCT glucose (11/27/2017 8:11 PM CDT) GLUCOSE POC 151(H) 70 - 110 mg/dL 11/27/2017 8:30 PM CDT [facility] ORDERS INTERFACE 11/27/2017 8:11 PM CDT 11/27/2017 8:30 PM CDT us Generic Conversion Md BERMUDEZ POCT ORDERABLES - DEVIC E Final Result Performing Organization Address [facility] Co de Phone Number [facility] ORDERS INTERFACE US * POCT glucose (11/27/2017 4:56 PM CDT) GLUCOSE POC 93 70 - 110 mg/dL 11/27/2017 5:00 PM CDT [facility] ORDERS INTERFACE 11/27/2017 4:56 PM CDT 11/27/2017 4:59 PM CDT us Generic Conversion Md BERMUDEZ POCT ORDERABLES - DEVIC E Final Result Performing Organization Address City/[facility] Co de Phone Number [facility] ORDERS INTERFACE US * (ABNORMAL) COMPREHENSIVE METABOLIC PANEL (11/27/2017 9:31 AM CDT) GLUCOSE 105(H) 70 - 99 MG/DL 11/27/2017 10:[address] [facility] BUN 10 7 - 18 MG/DL 11/27/2017 10:09 AM [facility] CREATININE S/P/B 0.76 0.55 - 1.02 MG/DL 11/27/2017 10:09 AM [facility] SODIUM S/P/B 140 136 - 145 MMOL/L 11/27/2017 10:09 AM [facility] POTASSIUM S/P/B 4.1 3.5 - 5.1 MMOL/L 11/27/2017 10:09 AM [facility] CHLORIDE S/P/B 103 100 - 108 MMOL/L 11/27/2017 10:09 AM [facility] CO2 28.1 21 - 32 MMOL/L 11/27/2017 10:09 AM [facility] CALCIUM S/P/B 9.7 8.5 - 10.1 MG/DL 11/27/2017 10:09 AM [facility] BILIRUBIN TOTAL S/P/B 0.5 0.2 - 1.2 MG/DL 11/27/2017 10:09 AM [facility] TOTAL PROTEIN S/P/B 7.2 6.4 - 8.2 G/DL 11/27/2017 10:09 AM [facility] ALBUMIN S/P/B 3.3(L) 3.4 - 5.0 G/DL 11/27/2017 10:09 AM [facility] AST 15 15 - 37 U/L 11/27/2017 10:09 AM [facility] ALT 13(L) 14 - 55 U/L 11/27/2017 10:09 AM [facility] ALKALINE PHOSPHATASE S/P/B 77 50 - 136 U/L 11/27/2017 10:09 AM [facility] ANION GAP 13.0 8 - 20 MMOL/L 11/27/2017 10:09 AM CDT [facility] BUN CREATININE RATIO 13.2 6 - 26 11/27/2017 10:09 AM CDT [facility] A/G RATIO 0.8(L) 1.0 - 2.0 RATIO 11/27/2017 10:09 AM CDT [facility] EGFR NON-AFR. AMER. 73(L) >90 ML/MIN/1.7 3 M2 11/27/2017 10:09 AM CDT [facility] EGFR AFR. AMER. 85(L) >90 ML/MIN/1.7 3 M2 11/27/2017 10:09 AM T [facility] Comment: NOTE: eGFR is not calculated for patients <18 years of age. This is an estimated GFR (CKD EPI) and should not be used for calculating drug doses. 11/27/2017 9:31 AM CDT 11/27/2017 9:36 AM CDT us Generic Conversion Md BERMUDEZ LABORATORY Final R esult [facility] [address] [place] [address], [place] [phone] * (ABNORMAL) CBC W/DIFF AUTOMATED (11/27/2017 9:31 AM CDT) WBC 3.5(L) 4.4 - 11.0 x10'3/uL 11/27/2017 10:00 AM CDT [facility] RBC 4.76 4.50 - 5.10 x10'6/uL 11/27/2017 10:00 AM T [facility] HGB 12.4 12.3 - 15.3 G/DL 11/27/2017 10:00 AM CDT [facility] HCT 39.4 35.9 - 44.6 % 11/27/2017 10:00 AM [facility] MCV 82.8 80.0 - 96.0 FL 11/27/2017 10:00 AM T [facility] MCH 26.1 25.3 - 30.9 PG 11/27/2017 10:00 AM [facility] MCHC 31.5 31.0 - 34.1 G/DL 11/27/2017 10:00 AM [facility] RDW 14.7 12.4 - 15.1 % 11/27/2017 10:00 AM [facility] PLT 232 151 - 353 x10'3/uL 11/27/2017 10:00 AM [facility] MPV 9.2(L) 9.6 - 12.0 FL 11/27/2017 10:00 AM [facility] RBC MORPHOLOGY NORMAL 11/27/2017 10:00 AM [facility] PLT MORPH. NORMAL 11/27/2017 10:00 AM [facility] WBC MORPHOLOGY NORMAL 11/27/2017 10:00 AM [facility] LYMPHOCYTES % 21.1 15.8 - 45.0 % 11/27/2017 10:00 AM [facility] NEUTROPHILS % 66.8 42.1 - 71.9 % 11/27/2017 10:00 AM [facility] MONOCYTES % 6.9 5.7 - 12.5 % 11/27/2017 10:00 AM [facility] EOSINOPHILS 3.4 0.0 - 5.6 % 11/27/2017 10:00 AM [facility] BASOPHILS 0.9 0.0 - 1.3 % 11/27/2017 10:00 AM [facility] ABS. NEUTROPHILS TOTAL 2.34 1.40 - 6.00 x10'3/uL 11/27/2017 10:00 AM CDT [facility] IMMATURE GRANS % 0.9(H) 0.0 - 0.5 % 11/27/2017 10:00 AM CDT [facility] ABS. LYMPHOCYTES 0.74(L) 0.80 - 4.70 x10'3/uL 11/27/2017 10:00 AM CDT [facility] 11/27/2017 9:31 AM CDT 11/27/2017 9:36 AM CDT us Generic Conversion Md BERMUDEZ LABORATORY Final R esult Performing Organization Address [facility] Co de Phone Number [facility] [address] [place] [address], [place] [phone] * (ABNORMAL) POCT glucose (11/26/2017 8:26 PM CDT) [facility] GLUCOSE POC 130(H) 70 - 110 mg/dL 11/27/2017 2:54 AM CDT [facility] ORDERS INTERFACE 11/26/2017 8:26 PM CDT 11/27/2017 2:54 AM CDT us Generic Conversion Md BERMUDEZ POCT ORDERABLES - DEVIC E Final Result Performing Organization Address City/[facility]/ZIP Co de Phone Number [facility] ORDERS INTERFACE US documented in this encounter Visit Diagnoses Diagnosis Weakness Other malaise and fatigue documented in this encounter Care Teams Lab Engineer Relationship Specialty Start Date End Date Noemi Barnard MD PCP - General INTERNAL MEDICINE 02/22/18 07/03/18 documented as of this encounter
--- OUTSIDE RECORDS SUMMARY | 2024-04-05 00:26 | XMS_ITS | Encounter Summary ---
Author Organization [facility] Address [address] [place] [address] [place] [address] Care Team Providers Care Forging Press Operator Name Role Phone Unavailable Primary Care Provider Unavailabl e Encounter Details Date Type Department Care Team (Latest Contact Info) Description 12/01/2017 Abstract [facility] [place] [address] [place] [address] Social History Tobacco Use Types Packs/Day Years Used Date Smoking Tobacco: Never Assessed Comments Unknown Sex and Gender Information Value Date Recorded Sex Assigned at Not on file Legal Sex Female 8:14 PM CDT Gender Identity Not on file Sexual Orientation Not on file documented as of this encounter Progress Notes * Generic Conversion MD Brady - 12/01/2017 10:23 AM CDT Message Recorded as Task Date: 11/30/2017 12:47 PM, Created By: Radha Monge Task Name: Follow Up [facility] Nurse Team Regarding Patient: Roxana Ch, Status: In Progress Comment: Radha Monge - 30 Nov 2017 12:47 PM TASK CREATED Caller: Sirisha goldman/[facility]; Sirisha states that she received an order from [facility] for home health on this patient. Sirisha wants to know if Dr. Franklin will sign off on the orders Herlinda Xiao 30 Nov 2017 4:31 PM TASK IN PROGRESS Herlinda Xiao 30 Nov 2017 4:33 PM TASK EDITED Printed to discuss with Dr. Franklin. Melanie Baltazar - 01 Dec 2017 9:17 AM TASK EDITED ok per Dr. Franklin- Attempted to contact Sirisha with [facility] Signatures Electronically signed by : Melanie Baltazar, ; Dec 01 2017 10:23AM MANAGER CULINARY (Author) documented in this encounter Plan of Treatment Not on file documented as of this encounter Visit Diagnoses Not on filedocumented in this encounter
--- OUTSIDE RECORDS SUMMARY | 2024-04-05 00:26 | XMS_ITS | Encounter Summary ---
Author Organization [facility] Address On license of [facility] [place] [address] [place] [address] Care Team Providers Care Senior Data Quality Analyst Name Role Phone Unavailable Primary Care Provider Unavailabl e Encounter Details Date Type Department Care Team (Latest Contact Info) Description 12/03/2017 Abstract [facility] Marcella Lane NP Social History Tobacco Use [...] Sign Reading Time Taken Comments Blood Pressure 138/62 12/03/2017 1:04 PM CDT Pulse 67 12/03/2017 1:04 PM CDT Temperature - - Respiratory Rate - - Oxygen Saturation - - Inhaled Oxygen Concentration - - Weight 58.1 kg (128 lb) 12/03/2017 1:04 PM CDT Height 157.5 cm (5' 2 ) 12/03/2017 1:04 PM CDT Body Mass Index 23.41 12/03/2017 1:04 PM CDT documented in this encounter Progress Notes * Marcella Lane NP - 12/03/2017 1:20 PM CDT Chief Complaint Pt. is here for a hospital f/u. Pt. was admitted to [facility] on 11/22 and d/c on 11/30 with a dx of Sepsisand Diverticulitis. History of Present Illness HPI Free Text: 82 year old WF presents to clinic today for hospital F/U for sepsis and diverticulitis. She has been discharged to home on Augmentin. She lives at [facility] assisted living. Patient states that she if feeling much better but is weak. She is getting home health PT and nursing. Denies any abdominal pain or discomfort today. Date of Hospital/[place] Discharge: 11/30/17 Date of Contact: 11/30/17 Individual Contacted: Roxana Contacted by: Melanie DUGAN Reviewed/ Addressed Self-Management Addressed, Independent Living Addressed, ADLS Addresses, Medication Management, Facilitation of Necessary Care and Services and Treatment Regimen Reviewed as Prescribed on Discharge Pt was discharged on 11/30/17 from [facility] DX Sepsis and Diverticulitis. Pt stated that she will be getting [facility]. Pt has a TCM follow [...] any question or concerns at this time. Review of Systems Constitutional: Normal. ENT: normal. Cardiovascular: Normal. Respiratory: Normal. Gastrointestinal: Normal. Genitourinary: Normal. Integumentary: Normal. Musculoskeletal: (muscle weakness). Neurological: Normal. Psychiatric: Normal. Active Problems 1. Abdominal pain, chronic, left lower quadrant (789.04,338.29) (R10.32,G89.29) 2. Breast cancer screening (V76.10) (Z12.31) 3. Claudication (443.9) (I73.9) 4. Colitis (558.9) (K52.9) 5. Diabetes mellitus (250.00) (E11.9) 6. Diarrhea (787.91) (R19.7) 7. 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 GERD (gastroesophageal reflux disease) (530.81) (K21.9) 9. Hyperlipidemia (272.4) (E78.5) 10. Hypertension (401.9) (I10) 11. Hypothyroidism (244.9) (E03.9) 12. Insomnia (780.52) (G47.00) 13. Lumbago (724.2) (M54.5) 14. Otitis media (382.9) (H66.90) 15. Rash (782.1) (R21) 16. Vitamin D deficiency (268.9) (E55.9) Past Medical [...] History of Rotator Cuff Repair Family History Mother 1. No pertinent family history Family History 2. Family history of cardiac disorder (V17.49) (Z82.49) 3. Family history of diabetes mellitus (V18.0) (Z83.3) 4. Family history of malignant neoplasm of breast (V16.3) (Z80.3) Social History ?? Caffeine use (V49.89) (F15.90) ?? Childbirth ?? Exercise: Walking ?? 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 Never a smoker ?? No alcohol use Current Meds 1. AmLODIPine Besylate 5 MG Oral Tablet; TAKE 1 TABLET BY MOUTH DAILY; Therapy: 91Gkp3452 to (Evaluate:14Feb2018) Requested for: 40Iwx1374; Last Rx:[id number] Ordered 2. Enalapril Maleate 20 MG Oral Tablet; TAKE 1 TABLET BY MOUTH DAILY DIRECTED; Therapy: 23Jan2014 to (Evaluate:01Mar2018) Requested for: 67Krf4652; Last Rx:[id number] Ordered 3. HydrOXYzine HCl - 25 MG Oral Tablet; TAKE 1 TABLET AT BEDTIME NEEDED; Therapy: 48Ybg8850 to (Evaluate:28Feb2017) Requested for: 46Ihn1642; Last Rx:[id number] Ordered 4. Levothyroxine Sodium 50 MCG Oral Tablet; TAKE 1 TABLET BY MOUTH EVERY WEDNESDAY AND WEDNESDAY; Therapy: 30Apr2014 to (Evaluate:08Feb2018) Requested for: 81Vtw2818; Last Rx:[id number] Ordered 5. Levothyroxine Sodium 75 MCG Oral Tablet; TAKE ONE TABLET BY MOUTH DAILY ON WEDNESDAY THROUGH WEDNESDAY AND 50MCG TABLET ON WEDNESDAY AND WEDNESDAY; Therapy: 10Feb2016 to (Evaluate:23Jan2018) Requested for: 70Hqd5318; Last Rx:[id number] Ordered 6. Melatonin 10 MG Oral Capsule; TAKE 1 PO AT HS; Therapy: 07Aug2015 to (Evaluate:09Sep2016) Recorded 7. MetFORMIN HCl ER 500 MG Oral Tablet Extended Release 24 Hour; TAKE 1 TABLET BY MOUTH TWICE A DAY; Therapy: 15Feb2017 to (Evaluate:13Nov2017) Requested for: 59Yrz9381; Last Rx:[id number] Ordered 8. OneTouch Ultra Blue In Vitro Strip; 1 Strip 3X/weekly & PRN; Therapy: 23Jan2015 to (Evaluate:22Jul2015); Last Rx:[id number] Ordered 9. Pantoprazole Sodium 40 MG Oral Tablet Delayed Release; TAKE 1 TABLET BY MOUTH EVERY DAY; Therapy: 16Jan2014 to (Evaluate:06Jun2017) Requested for: 81Cjy9801; Last Rx:[id number] Ordered 10. Pravastatin Sodium 40 MG Oral Tablet; TAKE 1 TABLET BY MOUTH AT BEDTIME; Therapy: 30Apr2014 to (Evaluate:06Feb2018) Requested for: 56Foy7792; Last Rx:[id number] Ordered 11. RaNITidine HCl - 300 MG Oral Capsule; TAKE 1 CAPSULE AT BEDTIME NIGHTLY; Therapy: 17May2017 to (Evaluate:13Nov2017) Requested for: 07Ttf4996; Last Rx:[id number] Ordered Allergies 1. No Known Drug Allergies Vitals Recorded: 03Dec2017 01:04PM Temperature 98 F Heart Rate 67 Respiration 18 Systolic 138 Diastolic 62 O2 Saturation 96 Height 5 ft 2 in Weight 128 lb BMI Calculated 23.41 BSA Calculated 1.58 Physical Exam Constitutional General appearance: No acute distress, well appearing and well nourished. Eyes Conjunctiva and lids: No swelling, erythema or discharge. Pupils and irises: Equal, round and reactive to light. Ears, Nose, Mouth, and Throat External inspection of ears and nose: Normal. Pulmonary Respiratory effort: No increased work of breathing or signs of respiratory distress. Auscultation of lungs: Clear to auscultation. Cardiovascular Auscultation of heart: Normal rate and rhythm, normal S1 and S2, without murmurs. Examination of extremities for edema and/or varicosities: Normal. Abdomen Abdomen: Non-tender, no masses. Liver and spleen: No hepatomegaly or splenomegaly. Lymphatic Palpation of lymph nodes in neck: No lymphadenopathy. Musculoskeletal Gait and station: Normal. ambulates with rollator walker.. Neurologic Cranial nerves: Cranial nerves 2-12 intact. Psychiatric Orientation to person, place, and time: Normal. Mood and affect: Normal. Assessment 1. Diverticulitis (562.11) (K57.92) Plan 1. Basic Metabolic Prof ( BMP ); Status:Active; Requested for:08Dec2017; Perform:[facility]; Due:07Jan2018;Ordered; For:Diverticulitis; Ordered By:Marcella Lane; 2. Gastroenterology Referral Outpatient Please refer patient to GI as she has recently been hospitalized for sepsis and diverticulitis. Has seen Dr. Burrows in the past Status: Need Information - Financial Authorization Requested for: [id number] Ordered; For: Diverticulitis; Ordered By: Marcella Lane Performed: Due: [id number] 3. Blood Culture; Status:Active; Requested for:[id number]; Perform:. [facility]; Due:07Jan2018;Ordered; For:Diverticulitis; Ordered By:Marcella Lane; Source: : Blood 4. CBC W Differential; Status:Active; Requested for:98Pul2241; Perform:. [facility]; Due:07Jan2018;Ordered; For:Diverticulitis; Ordered By:Marcella Lane; Hospital discharge summary reviewed and labs reviewed. Continue with Augmentin until finished Will do CBC, BMP, and blood culture in 1 week. Continue with home health PT and nursing. Will refer patient to GI as she has seen Dr. Burrows in the past. Signatures Electronically signed by : Marcella Lane APN; Dec 03 2017 2:11PM MORGUE TECHNICIAN (Author) documented in this encounter Plan of Treatment Not on file documented as of this encounter Procedures Procedure Name Priority Date/Time Associated Diagnosis Comments BASIC METABOLIC PANEL Routine 12/27/2017 8:17 AM CDT CULTURE, BACTERIA, BLOOD Routine 12/27/2017 8:17 AM CDT CBC W/DIFF AUTOMATED Routine 12/27/2017 8:17 AM CDT documented in this encounter Results * (ABNORMAL) CBC W/DIFF AUTOMATED (12/27/2017 8:17 AM CDT) WBC 3.3(L) 4.4 - 11.0 x10'3/uL [facility] TO EP[facility] CONVERSION RBC 4.67 4.50 - 5.10 x10'6/uL [facility] TO EPIC CONVERSION HGB 12.5 12.3 - 15.3 G/DL [facility] TO EPIC CONVERSION HCT 39.0 35.9 - 44.6 % [facility] TO EPIC CONVERSION MCV 83.5 80.0 - 96.0 FL [facility] TO EPIC CONVERSION MCH 26.8 25.3 - 30.9 PG [facility] TO EPIC CONVERSION MCHC 32.1 31.0 - 34.1 G/DL [facility] TO EPIC CONVERSION RDW 14.8 12.4 - 15.1 % [facility] TO [facility]IC CONVERSION PLT 194 151 - 353 x10'3/uL [facility] TO EPIC CONVERSION MPV 9.4(L) 9.6 - 12.0 FL [facility] TO EPIC CONVERSION BASOPHILS % 0.9 0.0 - 1.3 % [facility] TO EPIC CONVERSION EOSINOPHILS % 3.0 0.0 - 5.6 % [facility] TO [facility]IC CONVERSION NEUTROPHILS % 65.1 42.1 - 71.9 % [facility] TO [facility] CONVERSION LYMPHOCYTES % 24.0 15.8 - 45.0 % [facility] TO [facility] CONVERSION IMMATURE GRANS % 0.3 0.0 - 0.5 % [facility] TO [facility] CONVERSION ABS. NEUTROPHILS TOTAL 2.14 1.40 - 6.00 x10'3/uL [facility] TO [facility]IC CONVERSION WBC MORPHOLOGY NORMAL [facility] OUP TO EPIC CONVERSION PLT MORPH. NORMAL [facility] TO [facility]IC CONVERSION RBC MORPHOLOGY NORMAL [facility] OUP TO EPIC CONVERSION MONOCYTES 6.7 5.7 - 12.5 % [facility] TO [facility] CONVERSION ABS. LYMPHOCYTES 0.79(L) 0.80 - 4.70 x10'3/uL [facility] TO EPIC CONVERSION 12/27/2017 8:17 AM CDT 12/27/2017 8:17 AM CDT Narrative [facility] CONVERSION - 12/27/2017 8:29 AM CDT Result Communication: Call patient with results us Marcella Lane NP LABORATORY Final Result [facility] TO [facility] CONVERSION * (ABNORMAL) BASIC METABOLIC PANEL (12/27/2017 8:17 AM CDT) [facility] GLUCOSE 94 70 - 99 MG/DL [facility] TO [facility] CONVERSION BUN 15 7 - 18 MG/DL [facility] TO [facility] CONVERSION CREATININE S/P/B 0.79 0.55 - 1.02 MG/DL [facility] TO [facility]IC CONVERSION SODIUM S/P/B 144 136 - 145 MMOL/L [facility] TO [facility] CONVERSION POTASSIUM S/P/B 4.1 3.5 - 5.1 MMOL/L [facility] TO [facility]IC CONVERSION CHLORIDE S/P/B 106 100 - 108 MMOL/L [facility] TO [facility]IC CONVERSION CO2 28.3 21 - 32 MMOL/L [facility] TO EPIC CONVERSION CALCIUM S/P/B 9.3 8.5 - 10.1 MG/DL [facility] TO [facility]IC CONVERSION ANION GAP 13.8 8 - 20 MMOL/L [facility] TO [facility] CONVERSION BUN CREATININE RATIO 19.0 6 - 26 [facility] TO [facility] CONVERSION GFR ESTIMATE 70(L) >90 ML/MIN/1.7 3 M2 [facility] TO EPIC CONVERSION EGFR AFR. AMER. 81(L) >90 ML/MIN/1.7 3 M2 [facility] TO EPIC CONVERSION Comment: Result Comment: NOTE: eGFR is not calculated for patients <18 years of age. This is an estimated GFR (CKD EPI) and should not be used for calculating drug doses. 12/27/2017 8:17 AM CDT 12/27/2017 8:17 AM CDT Narrative [facility] TO EPIC CONVERSION - 12/27/2017 8:53 AM CDT Result Communication: Call patient with results us Marcella Lane NP LABORATORY Final Result Performing Organization Address [facility]/ZIP Co de Phone Number [facility] TO EPIC CONVERSION * CULTURE, BACTERIA, BLOOD (12/27/2017 8:17 AM CDT) BLOOD CULTURE SPECIMEN DESCRIPTION ? - BLOOD SPECIAL REQUESTS ? - NO SPECIAL REQUEST CULTURE ?- NO GROWTH 5 DAYS REPORT STATUS ?- FINAL 01/01/2018 [facility] CONVERSION 12/27/2017 8:17 AM CDT 12/27/2017 8:17 AM CDT Narrative [facility] TO [facility] CONVERSION - 01/01/2018 10:39 AM CDT Result Communication: No patient communication needed at this time us Marcella Lane NP MICROBIOLOGY - GENERAL ORDERA BLES Final Result Performing Organization Address City/[facility]/ZIP Co de Phone Number [facility] TO EPIC CONVERSION documented in this encounter Visit Diagnoses Not on filedocumented in this encounter
--- OUTSIDE RECORDS SUMMARY | 2024-04-05 00:27 | XMS_ITS | Encounter Summary ---
Author Organization [facility] Address [address] [place] [address]. [place], [place] [address] [place] [address] Care Team Providers Care Commodity Industry Analyst Name Role Phone Unavailable Primary Care Provider Unavailabl e Encounter Details Date Type Department Care Team (Latest Contact Info) Description 07/07/2016 Abstract [facility] Social History Tobacco Use Types Packs/Day Years Used Date Smoking Tobacco: Never Assessed Comments Unknown Sex and Gender Information Value Date Recorded Sex Assigned at Not on file Legal Sex Female 8:14 PM CDT Gender Identity Not on file Sexual Orientation Not on file documented as of this encounter Progress Notes * Rhianna Castaneda Md, MD - 07/07/2016 3:32 PM CDT Message Recorded as Task Date: 07/06/2016 11:50 AM, Created By: Martha Ruiz Task Name: Informational Assigned To: [facility] Nurse Team Regarding Patient: Roxana Ch, Status: In Progress Comment: Martha Ruiz - 06 Jul 2016 11:50 AM TASK CREATED Pt treatment should have been okay for the injection. How is she feeling (UTI). thanks Noemi Reyna - 07 Jul 2016 2:10 PM TASK EDITED lmtcb Noemi Hoffman - 07 Jul 2016 3:32 PM TASK EDITED pt informed. she states she is doing ok. told her that abx should clear infection. Signatures Electronically signed by : Noemi Hoffman MA; Jul 07 2016 3:32PM BREEDER HEN SERVICE TECHNICIAN (Author) documented in this encounter Plan of Treatment Not on file documented as of this encounter Visit Diagnoses Not on filedocumented in this encounter
--- OUTSIDE RECORDS SUMMARY | 2024-04-05 00:27 | XMS_ITS | Encounter Summary ---
Author Organization [facility] Address [facility] [place] [address] [place] [address] Care Team Providers Care Sales Representative Consultant Name Role Phone Unavailable Primary Care Provider Unavailabl e Encounter Details Date Type Department Care Team (Latest Contact Info) Description 11/10/2015 Abstract [facility] Social History Tobacco Use Types Packs/Day Years Used Date Smoking Tobacco: Never Assessed Comments Unknown Sex and Gender Information Value Date Recorded Sex Assigned at Not on file Legal Sex Female 8:14 PM CDT Gender Identity Not on file Sexual Orientation Not on file documented as of this encounter Progress Notes * Noemi Jade MD - 11/10/2015 12:27 PM CDT Verified Results US DUPLEX CAROTID BI [id number] 03:45PM Noemi Jade Test Name Result Flag Reference US DUPLEX CAROTID BI (Report) ROXANA RITCHIE ADMIT/SERVICE DATE: 11/07/15 ACCT: [id number] DISCHARGE DATE: : 1935 SEX: F ORD SITE: [facility] PT TYPE: REG CLI ORDERING MD: NOEMI JADE MD STUDY DATE REPORT # ORDER # EXT ORDER ID 11/07/15 [id number] PROC CODE: [id number] PROCEDURE DESCRIPTION: US DUPLEX CAROTID BI IMAGING STUDIES:US DUPLEX CAROTID BI DATE : 11/07/2015 9:45 AM INDICATION: OTHER - US DIZZINESS . COMPARISON: NO COMPARISONS. . TECHNIQUE: EXAMINATION PERFORMED BY ANIMAL BREEDER USING GRAYSCALE WITH COLOR FLOW AND SPECTRAL DOPPLER. SELECTED IMAGES SUBMITTED FOR INTERPRETATION. WORKSHEET COMPLETED. IMPRESSION: RIGHT CAROTID BIFURCATION: PEAK SYSTOLIC VELOCITIES (CM/S) CCA 85.9, ICA 121.1/30, ECA 91, ICA/CCA 1.42. MINIMAL PLAQUE. THERE IS NO EVIDENCE TO SUGGEST THE PRESENCE OF A HEMODYNAMICALLY SIGNIFICANT STENOSIS WITHIN THE PROXIMAL RIGHT INTERNAL CAROTID ARTERY OR CAROTID BULB. (LESS THAN 50% DIAMETER STENOSIS). LEFT CAROTID BIFURCATION: PEAK SYSTOLIC VELOCITIES (CM/S) CCA 63.8, ICA 104/23.7, ECA 64.6, ICA/CCA 1.63. MINIMAL PLAQUE. THERE IS NO EVIDENCE TO SUGGEST THE PRESENCE OF A HEMODYNAMICALLY SIGNIFICANT STENOSIS WITHIN THE PROXIMAL LEFT INTERNAL CAROTID ARTERY OR CAROTID BULB. (LESS THAN 50% DIAMETER STENOSIS). VERTEBRAL ARTERIES: ANTEGRADE FLOW PRESENT IN BOTH VERTEBRAL ARTERIES. STENOSES EVALUATED USING CRITERIA SIMILAR TO NASCET. ELECTRONICALLY SIGNED BY JANE REEVES MD documented in this encounter Plan of Treatment Not on file documented as of this encounter Visit Diagnoses Not on filedocumented in this encounter
--- OUTSIDE RECORDS SUMMARY | 2024-04-05 00:27 | XMS_ITS | Encounter Summary ---
Author Organization [facility] Address [facility] [place] [address] [place] [address] Care Team Providers Care Art Psychotherapist Or Therapist Name Role Phone Unavailable Primary Care Provider Unavailabl e Encounter Details Date Type Department Care Team (Late st Contact Info) Description 05/07/[address] [facility] Family & Internal Medicine [facility] [address] [place] [address] [place] [address] [place] [address] Social History Tobacco Use Types [...] Date/Time Associated Diagnosis Comments HEMOGLOBIN, GLYCOSYLATED Routine 05/07/2017 8:50 AM BILINGUAL LEGAL ASSISTANT documented in this encounter Results * HEMOGLOBIN, GLYCOSYLATED (05/07/2017 8:50 AM BILINGUAL LEGAL ASSISTANT) HGB A1C 6.0 4.2 - 6.5 % HbA1C [facility] TO EPIC CONVERSION 05/07/2017 8:50 AM BILINGUAL LEGAL ASSISTANT 05/07/2017 8:50 AM BILINGUAL LEGAL ASSISTANT Narrative [facility] TO EPIC CONVERSION - 05/07/2017 8:50 AM BILINGUAL LEGAL ASSISTANT Result Communication: No patient communication needed at this time us Noemi Barnard MD LABORATORY Final Result [facility] TO EPIC CONVERSION documented in this encounter Visit Diagnoses Not on filedocumented in this encounter
--- OUTSIDE RECORDS SUMMARY | 2024-04-05 00:27 | XMS_ITS | Encounter Summary ---
Author Organization [facility] Address [address] [place] [address]. [place] [address] [place] [address] Care Team Providers Care Computer Systems Technology Instructor Name Role Phone Unavailable Primary Care Provider Unavailabl e Encounter Details Date Type Department Care Team (Latest Contact Info) Description 04/20/2017 Abstract [facility] Social History Tobacco Use Types Packs/Day Years Used Date Smoking Tobacco: Never Assessed Comments Unknown Sex and Gender Information Value Date Recorded Sex Assigned at Not on file Legal Sex Female 8:14 PM CDT Gender Identity Not on file Sexual Orientation Not on file documented as of this encounter Progress Notes * Generic Conversion MD Brady - 04/20/2017 3:31 PM CST Message Recorded as Task Date: 04/19/2017 09:06 AM, Created By: Radha Monge Task Name: Follow Up Ass[facility] Nurse Team Regarding Patient: Roxana Ch, Status: In Progress Comment: Radha Monge - 19 Apr 2017 9:06 AM TASK CREATED Caller: Self; Roxana states she saw Dr. Burrows and he told her she did not need to take the Prednisone. Dr. Burrows told Roxana to call Dr. Franklin and see if she was to start her diabetic medication again. Roxana would appreciate a call back with specific directions. Thania James - 19 Apr 2017 9:29 AM TASK EDITED Called Dr. Burrows's office and requested o.v. notes, was informed it will be faxed today. Thania James - 20 Apr 2017 8:[address] Burrows's o.v. note in chart, printed to discuss with Thania Simons - 20 Apr 2017 1:54 PM TASK EDITED LMTCB, to inform per Dr. Franklin pt okay to start her Metformin. Sharonda Whiting - 20 Apr 2017 3:31 PM TASK EDITED pt returned call and was informed she could restart her Metformin. Signatures Electronically signed by : Sharonda Whiting MA; Apr 20 2017 3:31PM BURNING SUPERVISOR (Author) documented in this encounter Plan of Treatment Not on file documented as of this encounter Visit Diagnoses Not on filedocumented in this encounter
--- OUTSIDE RECORDS SUMMARY | 2024-04-05 00:27 | XMS_ITS | Encounter Summary ---
Author Organization [facility] Address [address] [place] [address]. [place] [address] [place] [address] Care Team Providers Care Alum Plant Supervisor Name Role Phone Unavailable Primary Care Provider Unavailabl e Encounter Details Date Type Department Care Team (Late st Contact Info) Description 11/11/2015 Abstract [facility] Family & Internal Medicine [facility] [address] [place] [address] [place] [address] [place] [address] Social History Tobacco Use Types Packs/Day Years Used Date Smoking Tobacco: Never Assessed Comments Unknown Sex and Gender Information Value Date Recorded Sex Assigned at Not on file Legal Sex Female 8:14 PM CDT Gender Identity Not on file Sexual Orientation Not on file documented as of this encounter Last Filed Vital Signs Vital Sign Reading Time Taken Comments Blood Pressure 150/86 11/11/2015 4:11 PM CDT Pulse 76 11/11/2015 4:11 PM CDT Temperature - - Respiratory Rate - - Oxygen Saturation - - Inhaled Oxygen Concentration - - Weight 55.8 kg (123 lb) 11/11/2015 4:11 PM CDT Height 157.5 cm (5' 2 ) 11/11/2015 4:11 PM CDT Body Mass Index 22.5 11/11/2015 4:11 PM CDT documented in this encounter Progress Notes * Noemi Jade MD - 11/11/2015 3:45 PM CDT Reason For Visit Acute Follow-Up Visit Chief Complaint Pt here to discuss the right neck pain and what to do about the carotid u/s will she have this repeated yearly? History of Present Illness HPI Free Text: An 80-year-old white female having pain in the right side of her neck. Sometimes it is dull and achy and another times sharp and stabbing. She also sometimes has some discomfort in the back of her neck. She is also here to review the results of the carotid ultrasound done November 07, 2015, which revealed only minimal plaque bilaterally, less than 50% narrowing on either side. Patient also in the past had a cardiac cath with only 20% narrowing. She is diabetic but other than age, has low risk factors since she has never been a smoker. Neck Pain (Brief): The patient is being seen for worsening symptoms of neck pain. The etiology is undetermined and possible osteoarthritis compression fracture. This condition is not related to a specific injury. Past evaluation has included ultrasound. Symptoms: neck stiffness and decreased neck range of motion. The patient is currently experiencing symptoms. The pain is located in the posteriorneck and in the right lateral neck. The pain radiates to the None. The patient describes the pain as dull, aching and shooting. The pain is intermittent. The patient describes symptoms as worsening. No associated symptoms are reported. Functional Limitations: None. The patient is not currently being treated for this problem. Pertinent medical history: None. Review of Systems Eyes, ENT, Cardiovascular, Respiratory, Genitourinary, Integumentary, Neurological and Psychiatric review of systems normal except as noted. Constitutional: feeling tired. Gastrointestinal: heartburn. Musculoskeletal: (see HPI). Active Problems 1. Diabetes mellitus (250.00) (E11.9) 2. Dizziness (780.4) (R42) 3. Hyperlipidemia (272.4) (E78.5) 4. Hypertension (401.9) (I10) 5. Hypothyroidism (244.9) (E03.9) 6. Insomnia (780.52) (G47.00) 7. Vitamin d deficiency (268.9) (E55.9) Past Medical History 1. History of arthritis (V13.4) (Z87.39) 2. History of impacted cerumen (V12.49) (Z86.69) 3. History of malignant neoplasm of breast (V10.3) (Z85.3) Surgical History 1. History of Abdominal Surgery [...] Never a smoker ?? No alcohol use Immunizations Fluzone High-Dose 0.5 ML Intramuscular Suspension Prefilled Syringe --- Series1: [id number] Current Meds 1. AmLODIPine Besylate 5 MG Oral Tablet; TAKE 1 TABLET DAILY; Therapy: 99Zyf8263 to (Evaluate:02Feb2016) Requested for: 87Ttc6264; Last Rx:[id number] Ordered 2. Enalapril Maleate 20 MG Oral Tablet; TAKE 1 TABLET DAILY DIRECTED; Therapy: 23Jan2014 to (Evaluate:65Rgc9183) Requested for: 53Jge9911; Last Rx:[id number] Ordered 3. Janumet 50-500 MG Oral Tablet; TAKE ONE TABLET BY MOUTH TWICE DAILY WITH MEALS; Therapy: 62Fqz1575 to (Evaluate:53Lmb3832) Requested for: 25Sep2015; Last Rx:25Sep2015 Ordered 4. Levothyroxine Sodium 50 MCG Oral Tablet; TAKE 1 TABLET DAILY DIRECTED; Therapy: 30Apr2014 to (Evaluate:97Ung1467) Requested for: 95Jsa0341; Last Rx:83Sbj8072 Ordered 5. Melatonin 1 MG Oral Capsule; TAKE 1 CAPSULE AT BEDTIME NEEDED; Therapy: 74Cbg0984 to (Evaluate:59Zea1896); Last Rx:84Ccp2793 Ordered 6. OneTouch Ultra Blue In Vitro Strip; 1 Strip 3X/weekly & PRN; Therapy: 23Jan2015 to (Evaluate:08Dpd4031); Last Rx:23Jan2015 Ordered 7. Pantoprazole Sodium 40 MG Oral Tablet Delayed Release; TAKE 1 TABLET DAILY; Therapy: 16Jan2014 to (Evaluate:16Trm9215) Requested for: 23Jan2015; Last Rx:[id number] Ordered 8. Pravastatin Sodium 40 MG Oral Tablet; TAKE ONE TABLET BY MOUTH AT BEDTIME; Therapy: 30Apr2014 to (Evaluate:22Fvf7794) Requested for: 00Huk0999; Last Rx:30Sda4800 Ordered 9. TraZODone HCl - 50 MG Oral Tablet; TAKE 1 TO 2 TABLETS BY MOUTH EVERY NIGHT AT BEDTIME NEEDED FOR INSOMNIA; Therapy: 26Jun2014 to (Evaluate:03Gkd9959) Requested for: 03Sej3159; Last Rx:65Bsl2247 Ordered Allergies 1. No Known Drug Allergies Vitals Recorded: 11Nov2015 04:11PM Heart Rate 76 Systolic 150 Diastolic 86 O2 Saturation 98 Height 5 ft 2 in Weight 123 lb BMI Calculated 22.5 BSA Calculated 1.55 Physical Exam Constitutional General appearance: No acute distress, well appearing and well nourished. Head and Face Head and face: Normal. Eyes Conjunctiva and lids: No swelling, erythema or discharge. Ears, Nose, Mouth, and Throat External inspection of ears and nose: Normal. Neck Neck: Abnormal. The neck was normal and was supple. The neck was tender, but was not warm. the trachea was midline. Thyroid: Normal, no thyromegaly. Pulmonary Respiratory effort: [...] and insight: Normal. Mood and affect: Normal. Results/Data US DUPLEX CAROTID BI 07Nov2015 03:45PM Noemi Jade Test Name Result Flag Reference US DUPLEX CAROTID BI (Report) ROXANA RITCHIE ADMIT/SERVICE DATE: 11/07/15 ACCT: [id number] DISCHARGE DATE: : 1935 SEX: F ORD SITE: [facility] PT TYPE: REG CLI ORDERING MD: NOEMI JADE MD STUDY DATE REPORT # ORDER # EXT ORDER ID 11/07/15 [id number] PROC CODE: [id number] PROCEDURE DESCRIPTION: US DUPLEX CAROTID BI IMAGING STUDIES:US DUPLEX CAROTID BI DATE : 11/07/2015 9:45 AM INDICATION: OTHER - US DIZZINESS . COMPARISON: NO COMPARISONS. . TECHNIQUE: EXAMINATION PERFORMED BY CHANNEL MARKETING MANAGER USING GRAYSCALE WITH COLOR FLOW AND [...] NASCET. ELECTRONICALLY SIGNED BY JANE REEVES MD Counseling The patient was counseled regarding diagnostic results, instructions for management, risk factor reductions, patient and family education, impressions, risks and benefits of treatment options, importance of compliance with treatment and 1655. Discussed results of the carotid ultrasound and the factthat this does not need to be repeated yearly unless she has symptoms. Since she has a lot of tensions could be related to musculoskeletal. Will use a Medrol Dosepak and a muscle relaxant both for the diagnostic reasons and treatment. If improved then it is most likely musculoskeletal, consider physical therapy. However, if pain persists, might need to check an ultrasound or further scanning of the neck itself and a C-spine of the neck to assess for DJD or compression fracture. Also discussed with patient this may elevate her blood sugars but will do for a brief time to help with diagnosis. Assessment 1. Neck muscle spasm (728.85) (M62.838) Plan Neck muscle spasm 1. MethylPREDNISolone 4 MG Oral Tablet Therapy Pack; USE DIRECTED PO Rx By: Noemi Jade; Dispense: 6 Days ; #:1 Tablet Therapy Pack; Refill: 0; For: Neck muscle spasm; HI = N; Verified Transmission to [facility] [address]; Last Updated By: [employer]; 11/11/2015 5:09:04 PM 2. TiZANidine HCl - 2 MG Oral Tablet; 1- 2 po HS PRN neck pain Rx By: Noemi Jade; Dispense: 30 Days ; #:30 Tablet; Refill: 2; For: Neck muscle spasm; HI = N; Verified Transmission to [facility]; Last Updated By: [employer]; 11/11/2015 5:09:05 PM 3. Follow-up PRN Outpatient Follow-up Status: Complete Done: [id number] Ordered; For: Neck muscle spasm; Ordered By: Noemi Jade Performed: Due: 87Yhk0457 Discussion/Summary depending on results if persists consider PT to neck Plan as above. Follow up for usual refills, otherwise if worse, not better or PRN. Signatures Electronically signed by : Noemi Jade M.D.; Nov 14 2015 5:59PM [employer] PANELBOARD OPERATOR (Author) documented in this encounter Plan of Treatment Not on file documented as of this encounter Visit Diagnoses Not on filedocumented in this encounter
--- OUTSIDE RECORDS SUMMARY | 2024-04-05 00:27 | XMS_ITS | Encounter Summary ---
Author Organization [facility] Address [address] [place] [address]. [place] [address] [place] [address] Care Team Providers Care Construction Project Mgr Name Role Phone Unavailable Primary Care Provider Unavailabl e Encounter Details Date Type Department Care Team (Late st Contact Info) Description 07/02/2016 Abstract [facility] Family & Internal Medicine [address] [address] Martha Ruiz NP Social History [...] Sign Reading Time Taken Comments Blood Pressure 140/58 07/02/2016 1:17 PM CDT Pulse 80 07/02/2016 1:17 PM CDT Temperature - - Respiratory Rate - - Oxygen Saturation - - Inhaled Oxygen Concentration - - Weight 57.2 kg (126 lb) 07/02/2016 1:17 PM CDT Height 157.5 cm (5' 2 ) 07/02/2016 1:17 PM CDT Body Mass Index 23.05 07/02/2016 1:17 PM CDT documented in this encounter Progress Notes * Martha Ruiz NP - 07/02/2016 1:15 PM CDT Reason For Visit Acute Visit Chief Complaint C/o odor to urine, urinary frequency, and burning with urination. Onset has been couple days. NKDA. History of Present Illness UTI, Acute: The patient is being seen for an initial evaluation of this episode of a urinary tract infection. Symptoms: dysuria, urinary frequency, urinary urgency, hematuria, nocturia, malodorous urine and abdominal pain. Symptom Cluster Details: she reports the symptoms are worsening. Associated Symptoms: general malaise and chills. Review of Systems Constitutional, Eyes, ENT, Cardiovascular, Respiratory, Gastrointestinal, Genitourinary, Musculoskeletal, Integumentary, Neurological, Psychiatric, Endocrine and Hematologic review of systems normal except as noted. Active Problems 1. Diabetes mellitus (250.00) (E11.9) 2. Dizziness (780.4) (R42) 3. Hyperlipidemia (272.4) (E78.5) 4. Hypertension (401.9) (I10) 5. Hypothyroidism (244.9) (E03.9) 6. Impacted cerumen of right ear (380.4) (H61.21) 7. Insomnia (780.52) (G47.00) 8. Neck muscle spasm (728.85) (M62.838) 9. Vitamin d deficiency (268.9) (E55.9) Past Medical [...] a smoker ?? No alcohol use Immunizations Influenza --- Series1: 07Rdl6164; Series2: 12Jom8552 Current Meds 1. AmLODIPine Besylate 5 MG Oral Tablet; TAKE 1 TABLET BY MOUTH DAILY; Therapy: 52Fbo0291 to (Evaluate:03Pcp2889) Requested for: 26Feb2016; Last Rx:26Feb2016 Ordered 2. Enalapril Maleate 20 MG Oral Tablet; TAKE 1 TABLET BY MOUTH DAILY DIRECTED; Therapy: 23Jan2014 to (Evaluate:14Ryk1199) Requested for: 03Mar2016; Last Rx:03Mar2016 Ordered 3. Janumet 50-500 MG Oral Tablet; TAKE ONE TABLET BY MOUTH TWICE DAILY WITH MEALS; Therapy: 84Dvv8750 to (Evaluate:24Sep2016) Requested for: 26Jun2016; Last Rx:26Jun2016 Ordered 4. Levothyroxine Sodium 50 MCG Oral Tablet; TAKE 1 TABLET EVERY OTHER DAY; Therapy: 30Apr2014 to (Evaluate:08Aug2016) Requested for: 10Feb2016; Last Rx:10Feb2016 Ordered 5. Levothyroxine Sodium 75 MCG Oral Tablet; TAKE 1 TABLET EVERY OTHER DAY; Therapy: 10Feb2016 to (Evaluate:08Aug2016) Requested for: 10Feb2016; Last Rx:10Feb2016 Ordered 6. Melatonin 1 MG Oral Capsule; TAKE 1 CAPSULE AT BEDTIME NEEDED; Therapy: 07Aug2015 to (Evaluate:06Sep2015); Last Rx:07Aug2015 Ordered 7. OneTouch Ultra Blue In Vitro Strip; 1 Strip 3X/weekly & PRN; Therapy: 23Jan2015 to (Evaluate:09Djz5270); Last Rx:46Tbz2726 Ordered 8. Pantoprazole Sodium 40 MG Oral Tablet Delayed Release; TAKE 1 TABLET BY MOUTH EVERY DAY; Therapy: 16Jan2014 to (Evaluate:13Sep2016) Requested for: 15Jun2016; Last Rx:15Jun2016 Ordered 9. Pravastatin Sodium 40 MG Oral Tablet; TAKE ONE TABLET BY MOUTH AT BEDTIME; Therapy: 30Apr2014 to (Evaluate:03Feb2016) Requested for: 07Aug2015; Last Rx:07Aug2015 Ordered 10. TiZANidine HCl - 2 MG Oral Tablet; 1- 2 po HS PRN neck pain; Therapy: 05Eor9698 to (Evaluate:09Feb2016) Requested for: 95Qtz1358; Last Rx:73Ncn8143 Ordered 11. TraZODone HCl - 50 MG Oral Tablet; TAKE 1 TO 2 TABLETS BY MOUTH EVERY NIGHT AT BEDTIME NEEDED FOR INSOMNIA; Therapy: 26Jun2014 to (Evaluate:67Yvx0557) Requested for: 13Jan2016; Last Rx:13Jan2016; Status: ACTIVE - Renewal Denied Ordered Allergies 1. No Known Drug Allergies Vitals Recorded: 02Jul2016 01:17PM Temperature 98.3 F Heart Rate 80 Systolic 140 Diastolic 58 O2 Saturation 97 Height 5 ft 2 in Weight 126 lb BMI Calculated 23.05 BSA Calculated 1.57 Physical Exam Constitutional General appearance: No acute distress, well appearing and well nourished. Eyes Conjunctiva and lids: No swelling, erythema or discharge. Ears, Nose, Mouth, and Throat External inspection of ears and nose: Normal. Otoscopic examination: Tympanic membranes translucent with normal light reflex. Canals patent without erythema. Oropharynx: Normal with no erythema, edema, exudate or lesions. Pulmonary Respiratory effort: No increased work of breathing or signs of respiratory distress. Auscultation of lungs: Clear to auscultation. Cardiovascular Palpation of heart: Normal PMI, no thrills. Auscultation of heart: Normal rate and rhythm, normal S1 and S2, without murmurs. Examination of extremities for edema and/or varicosities: Normal. Abdomen Abdomen: Abnormal. Bowel sounds were normal. The abdomen was soft. There was mild tenderness. tenderness in the suprapubic area. no masses palpated. Liver and spleen: No hepatomegaly or splenomegaly. Lymphatic Palpation of lymph nodes in neck: No lymphadenopathy. Musculoskeletal Gait and station: Normal. Digits and nails: Normal without clubbing or cyanosis. Inspection/palpation of joints, bones, and muscles: Normal. Skin Skin and subcutaneous tissue: Normal without rashes or lesions. Neurologic Cranial nerves: Cranial nerves 2-12 intact. Reflexes: 2+ and symmetric. Sensation: No sensory loss. Psychiatric Orientation to person, place, and time: Normal. Mood and affect: Normal. Results/Data Urine Culture 02Jul2016 02:08PM Martha Ruiz Test Name Result Flag Reference Urine Culture SPECIMEN DESCRIPTION - URINE CLEAN CATCH SPECIAL REQUESTS - NO SPECIAL REQUEST CULTURE - 50,000-100,000 COL/ML ESCHERICHIA COLI :SENSITIVITY TO FOLLOW *Urine dip auto In Office 02Jul2016 01:57PM Martha Ruiz Test Name Result Flag Reference Color Yellow Clarity Hazy Glucose Negative Bilirubin Negative Ketones Negative Specific [place] 1.020 Blood Negative pH 6.5 5.0 - 7.0 Protein Negative Urobilinogen 0.2 E.U./dL Nitrites negative Leukocytes Negative Assessment 1. Urinary frequency (788.41) (R35.0) 2. Urinary tract infection (599.0) (N39.0) Plan Urinary tract infection 1. Pyridium 100 MG Oral Tablet; TAKE 1 TABLET 3 TIMES DAILY AFTER MEALS NEEDED Rx By: Martha Ruiz; Dispense: 3 Days ; #:9 Tablet; Refill: 1; For: Urinary tract infection; HI = N; Verified Transmission to [facility]; Last Updated By: [employer]; 07/02/2016 1:48:03 PM 2. Sulfamethoxazole-Trimethoprim 800-160 MG Oral Tablet; TAKE 1 TABLET TWICE DAILY WITH FOOD Rx By: Martha Ruiz; Dispense: 7 Days ; #:14 Tablet; Refill: 0; For: Urinary tract infection; HI= N; Verified Transmission to [facility]; Last Updated By: [employer]; 07/02/2016 1:48:02 PM 3. *Urine dip auto In Office; Status:Complete; Done: 02Jul2016 01:57PM Performed:In Office; Due:01Aug2016; Last Updated By:Noemi Beltran; 07/02/2016 1:58:33 PM;Ordered; For:Urinary tract infection; Ordered By:Martha Ruiz; 4. Urine Culture; Status:Resulted - Preliminary,Requires Verification; Done: 02Jul2016 02:08PM Performed:[facility]; Due:01Aug2016;Ordered; For:Urinary tract infection; Ordered By:Martha Ruiz; Source: : Clean Catch 5. Follow-up visit in 2 weeks Outpatient Follow-up Status: Complete Done: 02Jul2016 Ordered; For: Urinary tract infection; Ordered By: Martha Ruiz Performed: Due: 16Jul2016; Last Updated By: Lianna Rousseau; 07/02/2016 2:27:10 PM Pt will return in two weeks. Discussed use of pyridium and the antibiotic. Will need to [place] the urine after the antibiotic Signatures Electronically signed by : Martha Ruiz NP; Jul 04 2016 1:34PM MAINTENANCE TRAINER (Author) documented in this encounter Plan of Treatment Not on file documented as of this encounter Procedures Procedure Name Priority Date/Time Associated Diagnosis Comments URINE BACTERIA CULTURE Routine 07/02/2016 2:08 PM CDT URINALYSIS AUTO DIP Routine 07/02/2016 1 :57 PM CDT documented in this encounter Results * CULTURE URINE (07/02/2016 2:08 PM CDT) CULTURE URINE SPECIMEN DESCRIPTION ? - URINE CLEAN CATCH SPECIAL REQUESTS ? - NO SPECIAL REQUEST CULTURE ?- 50,000-100,000 COL/ML ESCHERICHIA COLI CULTURE ?- POLYMICROBIAL GROWTH CONSISTENT WITH NORMAL GENITAL SAVI. ??SUSCEPTIBILITIE S NOT CULTURE ?- ??ROUTINELY PERFORMED. CULTURE ?- TESTING PERFORMED AT [facility], [address] [place] [address], CULTURE ?- ??[place] ??[id number] REPORT STATUS ?- FINAL 07/05/2016 ORGANISM ? - 50,000-100,000 COL/ML ESCHERICHIA COLI METHOD ? - FELIX AMPICILLIN ? - <=2 SUSCEPTIBLE AMP/SULBACTAM ?- <=2 SUSCEPTIBLE CEFTRIAXONE ?- <=1 SUSCEPTIBLE CEFTAZIDIME ?- <=1 SUSCEPTIBLE CEFAZOLIN ?- <=4 SUSCEPTIBLE ESBL ? - NEG NITROFURANTOIN ? - <=16 SUSCEPTIBLE GENTAMICIN ? - <=1 SUSCEPTIBLE LEVOFLOXACIN ? - <=0.12 SUSCEPTIBLE PIPRACIL/TAZO ?- <=4 SUSCEPTIBLE TRIMETH-SULFAMETH OXAZOLE - <=20 SUSCEPTIBLE [facility] TO EPIC CONVERSION 07/02/2016 2:08 PM CDT 07/02/2016 2:08 PM CDT Narrative [facility] TO EPIC CONVERSION - 07/05/2016 8:41 AM CDT Result Communication: No patient communication needed at this time Martha Ruiz CALL OR CONTACT CENTRE MANAGER MICROBIOLOGY - GENERAL ORDERA BLES Final Result [facility] TO EPIC CONVERSION * URINALYSIS AUTO DIP (07/02/2016 1:57 PM CDT) COLOR (U) Yellow [facility] T O EPIC CONVERSION TRANSPARENCY Hazy [facility] P TO EPIC CONVERSION GLUCOSE Negative [facility] T O EPIC CONVERSION BILIRUBIN (U) Negative [facility] UP TO EPIC CONVERSION KETONE (U) Negative [facility] TO EPIC CONVERSION SPECIFIC GRAVITY (U) 1.020 [facility] TO EPIC CONVERSION BLOOD (U) Negative [facility] T O EPIC CONVERSION PH (U) 6.5 5.0 - 7.0 [facility] T O EPIC CONVERSION PROTEIN (ELP) (U) Negative [facility] TO EPIC CONVERSION UROBILINOGEN 0.2 E.U./dL [facility] OUP TO EPIC CONVERSION NITRITES negative [facility] T O EPIC CONVERSION LEUKOCYTES (U) Negative [facility] OUP TO EPIC CONVERSION 07/02/2016 1:57 PM CDT 07/02/2016 1:57 PM CDT Martha L Collman CALL OR CONTACT CENTRE MANAGER URINE ORDERABLES Final Result [facility] TO EPIC CONVERSION documented in this encounter Visit Diagnoses Not on filedocumented in this encounter
--- OUTSIDE RECORDS SUMMARY | 2024-04-05 00:27 | XMS_ITS | Encounter Summary ---
Author Organization [facility] Address [address] [place] [address]. [place] [address] [place] [address] Care Team Providers Care Voice Pathologist Name Role Phone Unavailable Primary Care Provider Unavailabl e Encounter Details Date Type Department Care Team (Late st Contact Info) Description 02/15/2017 Abstract [facility] Family & Internal Medicine [facility] [id number] [place] [phone] [place] Barnard [place] [id number] [place] [address] Social History Tobacco Use Types Packs/Day Years Used Date Smoking Tobacco: Never Assessed Comments Unknown Sex and Gender Information Value Date Recorded Sex Assigned at Not on file Legal Sex Female 8:14 PM CDT Gender Identity Not on file Sexual Orientation Not on file documented as of this encounter Last Filed Vital Signs Vital Sign Reading Time Taken Comments Blood Pressure 142/70 02/15/2017 2:09 PM POWER PLANT MECHANIC Pulse 60 02/15/2017 2:09 PM POWER PLANT MECHANIC Temperature - - Respiratory Rate - - Oxygen Saturation - - Inhaled Oxygen Concentration - - Weight 59.5 kg (131 lb 2.1 oz) 02/15/2017 2:09 P M POWER PLANT MECHANIC Height - - Body Mass Index 23.98 11/30/2016 9:23 AM CDT documented in this encounter Progress Notes * Noemi Barnard MD - 02/15/2017 2:00 PM CST Chief Complaint Pt presents today for a 6 month f/u on HTN, hyperlipidemia, hypothyroidism, DM 2, vitamin d deficiency, and ear fullness. History of Present Illness Hypothyroidism (Follow-Up): The patient is being seen for follow-up of hypothyroidism of undetermined etiology. The patient reports no change in the condition. She presented with hair loss. The evaluation included thyroid stimulating hormone. Interval symptoms: worsened weight gain, stable fatigue and worsened hair loss. Associated symptoms: no myalgias. Medications: the patient is adherent to her medication regimen, but she denies medication side effects. Due for: thyroid stimulating hormone. Additional history: last visit thyroid dose adjusted down, felt better on higher dose, now with some hair loss. Hyperlipidemia (Follow-Up): The patient states her hyperlipidemia has been stable since the last visit. Comorbid Illnesses: hypertension. She has no significant interval events. Symptoms: The patient is currently asymptomatic. Associated symptoms include no focal neurologic deficits and no memory loss. Medications: the patient is adherent with her medication regimen. She denies medication side effects. Hypertension (Follow-Up): The patient presents for follow-up of primary hypertension. The patient states she has been doing well with her blood pressure control since the last visit. She has no comorbid illnesses. Interval Events: Patient was changed from Taztia XT 180 to amlodipine 5 mg secondary to constipation. Symptoms: The patient is currently asymptomatic. Home monitoring: The patient checks her blood pressure sporadically. Medications: the patient is adherent with her medication regimen. She denies medication side effects. (No side effects on amlodipine but Cardizem caused constipation). Disease Management: the patient is doing well with her blood pressure goals. Diabetes Type II (Follow-Up): The patient states she has been stable with her Type II Diabetes control since the last visit. Comorbid Illnesses: hypertension, hyperlipidemia and obesity. Disease Course and Complications:. there have been no previous episodes of diabetic ketoacidosis. there have been no previous hospitalizations. She has no significant interval events. Symptoms: The patient is currently asymptomatic. Home monitoring: The patient checks her blood sugar sporadically. the patient reports no symptomatic hypoglycemic episodes. Medications: the patient is adherent with her medication regimen. She denies medication side effects. Review of Systems See HPI for pertinent positives. Constitutional: as noted in HPI and fatigue. Head and Face: negative. Eyes: negative. ENT: decreased hearing and right ear plugged and nasal congestion. Cardiovascular: negative. Respiratory: negative. Gastrointestinal: negative. Musculoskeletal: joint stiffness. Integumentary negative. Psychiatric: as noted in HPI and insomnia. Neurological tingling. Active Problems 1. Claudication (443.9) (I73.9) 2. Contact dermatitis (692.9) (L25.9) 3. Diabetes mellitus (250.00) (E11.9) 4. Diarrhea (787.91) (R19.7) 5. 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 Ear fullness (388.8) (H93.8X9) 7. Hyperlipidemia (272.4) (E78.5) 8. Hypertension (401.9) (I10) 9. Hypothyroidism (244.9) (E03.9) 10. Insomnia (780.52) (G47.00) 11. Lumbago (724.2) (M54.5) 12. Rash (782.1) (R21) 13. Urinary frequency (788.41) (R35.0) 14. Vitamin D deficiency (268.9) (E55.9) Past Medical History 1. History of Abdominal pain, chronic, left lower quadrant (789.04,338.29) (R10.32,G89.29) 2. History of arthritis (V13.4) (Z87.39) 3. History of impacted cerumen (V12.49) (Z86.69) 4. History of malignant neoplasm of breast (V10.3) (Z85.3) 5. History of urinary tract infection (V13.02) (Z87.440) [...] TAKE 1 TABLET BY MOUTH DAILY; Therapy: 12Lvf8408 to (Evaluate:24Feb2017) Requested for: 28Aug2016; Last Rx:28Aug2016 Ordered 2. Clotrimazole-Betamethasone 1-0.05 % External Cream; APPLY AND RUB IN A THIN FILM TO AFFECTED AREAS TWICE DAILY.(AM AND PM); Therapy: 65Zba2066 to (Last Rx:62Sfk5488) Requested for: 61Inw1933 Ordered 3. Enalapril Maleate 20 MG Oral Tablet; TAKE 1 TABLET BY MOUTH DAILY DIRECTED; Therapy: 23Jan2014 to (Evaluate:02Mar2017) Requested for: 76Voo0283; Last Rx:[id number] Ordered 4. HydrOXYzine HCl - 25 MG Oral Tablet; TAKE 1 TABLET AT BEDTIME NEEDED; Therapy: 29Bbj1960 to (Evaluate:28Feb2017) Requested for: 09Eib5327; Last Rx:[id number] Ordered 5. Janumet 50-500 MG Oral Tablet; TAKE ONE TABLET BY MOUTH TWICE DAILY WITH MEALS; Therapy: 27Aug2014 to (Evaluate:07Ozm8689) Requested for: 39Kxg6258; Last Rx:57Ktj5536 Ordered 6. Levothyroxine Sodium 50 MCG Oral Tablet; TAKE 1 TABLET EVERY SAT & SUN; Therapy: 30Apr2014 to (Evaluate:06Feb2017) Requested for: 97Xrs1950; Last Rx:24Bbe6059 Ordered 7. Levothyroxine Sodium 75 MCG Oral Tablet; TAKE 1 TABLET EVERY OTHER DAY; Therapy: 10Feb2016 to (Evaluate:33Ssp7657) Requested for: 51Xjs5694; Last Rx:10Aug2016 Ordered 8. Loratadine 10 MG Oral Tablet; TAKE 1 TABLET DAILY NEEDED; Therapy: 97Icr7722 to (Evaluate:43Zdj6147) Requested for: 70Pqa8710; Last Rx:87Khh9723 Ordered 9. Melatonin 10 MG Oral Capsule; TAKE 1 PO AT HS; Therapy: 07Aug2015 to (Evaluate:09Sep2016) Recorded 10. MethylPREDNISolone 4 MG Oral Tablet; Take 6 tablets day one, 5 tablets day 2, 4 tablets day 3, 3 tablets day 4, 2 tablets day 5 and 1 tablet day 6; Therapy: 94Suo6018 to Recorded 11. OneTouch Ultra Blue In Vitro Strip; 1 Strip 3X/weekly & PRN; Therapy: 23Jan2015 to (Evaluate:30Tio0681); Last Rx:[id number] Ordered 12. Pantoprazole Sodium 40 MG Oral Tablet Delayed Release; TAKE 1 TABLET BY MOUTH EVERY DAY; Therapy: 16Jan2014 to (Evaluate:51Loa6037) Requested for: 14Sep2016; Last Rx:14Sep2016 Ordered 13. Pravastatin Sodium 40 MG Oral Tablet; TAKE 1 TABLET BY MOUTH AT BEDTIME; Therapy: 30Apr2014 to (Evaluate:39Rqy6484) Requested for: 12Feb2017; Last Rx:12Feb2017 Ordered 14. RaNITidine HCl - 150 MG Oral Tablet; TAKE 1 TABLET TWICE DAILY; Therapy: 28Ifd9750 to (Evaluate:41Mzx4348) Requested for: 18Mjh8477; Last Rx:18Cuw0450 Ordered 15. TiZANidine HCl - 2 MG Oral Tablet; 1- 2 po HS PRN neck pain; Therapy: 75Hoy3093 to (Evaluate:09Feb2016) Requested for: 55Xlm5659; Last Rx:69Pbb4129 Ordered Allergies 1. No Known Drug Allergies Immunizations Influenza --- Series1: 07-Jan-2015; Series2: 09-Jan-2016 Vitals Recorded: 15Feb2017 02:09PM Temperature 97.5 F Heart Rate 60 Respiration 18 Systolic 142 Diastolic 70 O2 Saturation 98 Weight 131 lb 2 oz BMI Calculated 23.98 BSA Calculated 1.6 Physical Exam Constitutional General appearance: No acute distress, well appearing and well nourished. Head and Face Head and face: Normal. Eyes Conjunctiva and lids: No swelling, erythema or discharge. Ears, Nose, Mouth, and Throat Otoscopic examination: Abnormal. TM right obscured with cerumen, left clear. The right TM clear after cerumen removal. Oropharynx: Abnormal. (Clear secretions ) Neck Neck: Supple, symmetric, trachea midline, no [...] intact. Diabetic Foot Exam: Right Foot Findings: normal foot. The toes were normal. Left Foot Findings: normal foot. The toes were normal. Monofilament Testing: Vascular: Pulses: 1+ in the dorsalis pedis. Pulses: 1+ in the dorsalis pedis. Assign Risk Category: 0: No loss of protective sensation, no deformity. No present risk. Psychiatric Judgment and insight: Normal. Orientation to person, place, and time: Normal. Recent and remote memory: Intact. Mood and affect: Normal. Assessment 1. Diabetes mellitus (250.00) (E11.9) 2. Hypertension (401.9) (I10) 3. Hypothyroidism (244.9) (E03.9) 4. Hyperlipidemia (272.4) (E78.5) 5. Vitamin D deficiency (268.9) (E55.9) 6. Ear fullness (388.8) (H93.8X9) 7. Malignant neoplasm of breast (174.9) (C50.919) Plan Diabetes mellitus 1. Janumet 50-500 MG Oral Tablet Rx By: Noemi Barnard; Dispense: 90 Days ; #:180 TAB; Refill: 0; For: Diabetes mellitus; HI = N; Sent To: [facility] [address] 2. MetFORMIN HCl ER 500 MG Oral Tablet Extended Release 24 Hour; TAKE 1 TABLET BY MOUTH TWICE A DAY Rx By: Noemi Barnard; Dispense: 90 Days ; #:180 Tablet; Refill: 1; For: Diabetes mellitus; HI = N; Verified Transmission to [facility] [address]; Msg to Pharmacy: had rash with Januvia; LastUpdated By: System, [employer]; 02/15/2017 3:33:24 PM Diabetes mellitus, Malignant neoplasm of breast 3. MG DIAGNOSTIC MAMMO DIGITAL BI; Status:Active; Requested for:14Jan2018; Perform:[facility] Radiology; Due:13Feb2018;Ordered; For:Diabetes mellitus, Malignant neoplasm of breast; Ordered By:Noemi Barnard; 4. Follow-up visit in 3 months Outpatient Follow-up Status: Complete Done: 15Feb2017 Ordered; For: Diabetes mellitus, Malignant neoplasm of breast; Ordered By: Noemi Barnard Performed: Due: 01Mar2017; Last Updated By: Benjamin Ramsey; 02/15/2017 3:38:07 PM Signatures Electronically signed by : Noemi Barnard M.D.; Feb 17 2017 8:17AM POWER PLANT MECHANIC (Author) documented in this encounter Plan of Treatment Not on file documented as of this encounter Visit Diagnoses Not on filedocumented in this encounter
--- OUTSIDE RECORDS SUMMARY | 2024-04-05 00:27 | XMS_ITS | Encounter Summary ---
Author Organization [facility] Address [address] [place] [address]. [place], [place] [address] [place] [address] Care Team Providers Care Pharmacist In Charge Owner Name Role Phone Noemi Barnard MD Primary Care Provider [phone] Encounter Details Date Type Department Care Team (Late st Contact Info) Description 05/18/2016 Abstract [facility] Outpatient Rehab [address] [place], [place] [id number] [place] [address] [place], [place] [id number] Social History Tobacco Use Types Packs/Day Years [...] this encounter Visit Diagnoses Diagnosis Encounter for examination of ears and hearing without abnormal findings documented in this encounter Care Teams Pharmacist In Charge Owner Relationship Specialty Start Date End Date Noemi Barnard MD PCP - General INTERNAL MEDICINE 02/22/18 07/03/18 documented as of this encounter
--- OUTSIDE RECORDS SUMMARY | 2024-04-05 00:27 | XMS_ITS | Encounter Summary ---
Author Organization [facility] Address [address] [place] [address]. [place], [place] [address] [place] [address] Care Team Providers Care Power Hammer Operator Name Role Phone Noemi Barnard MD Primary Care Provider [phone] Encounter Details Date Type Department Care Team (Late st Contact Info) Description 03/17/2017 Abstract [facility] Diagnostic Imaging [address] [place], [place] [id number] [place] [address] [place], [place] [phone] Social History Tobacco Use Types Packs/Day Years [...] as of this encounter Visit Diagnoses Diagnosis Left lower quadrant pain Abdominal pain, left lower quadrant documented in this encounter Care Teams Power Hammer Operator Relationship Specialty Start Date End Date Noemi Barnard MD PCP - General INTERNAL MEDICINE 02/22/18 07/03/18 documented as of this encounter
--- OUTSIDE RECORDS SUMMARY | 2024-04-05 00:27 | XMS_ITS | Encounter Summary ---
Author Organization [facility] Address [address] [place] [address]. [place], [place] [address] [place] [address] Care Team Providers Care Wardrobe Supervisor Name Role Phone Noemi Barnard MD Primary Care Provider Encounter Details Date Type Department Care Team (Late st Contact Info) Description 11/28/2016 Abstract [facility] [address] [place] [address] Michelle Valdez, POWER WHEELCHAIR MECHANIC [address] [facility] [address] [place] [address] Social History Tobacco Use Types Packs/Day Years [...] as of this encounter Visit Diagnoses Diagnosis Rash and other nonspecific skin eruption documented in this encounter Care Teams Wardrobe Supervisor Relationship Specialty Start Date End Date Noemi Barnadr MD PCP - General INTERNAL MEDICINE 02/22/18 07/03/18 documented as of this encounter
--- OUTSIDE RECORDS SUMMARY | 2024-04-05 00:27 | XMS_ITS | Encounter Summary ---
Author Organization [facility] Address [address] [place] [address]. [place] [address] [place] [address] Care Team Providers Care Training Officer Name Role Phone Unavailable Primary Care Provider Unavailabl e Encounter Details Date Type Department Care Team (Latest Contact Info) Description 03/24/2017 Abstract [facility] Medical Group Social History Tobacco Use Types Packs/Day Years Used Date Smoking Tobacco: Never Assessed Comments Unknown Sex and Gender Information Value Date Recorded Sex Assigned at Not on file Legal Sex Female 8:14 PM CDT Gender Identity Not on file Sexual Orientation Not on file documented as of this encounter Progress Notes * Generic Conversion MD Brady - 03/24/2017 12:36 PM CST Message Recorded as Task Date: 03/24/2017 10:13 AM, Created By: Lianna Rousseau Task Name: Medical Complaint Callback [facility] Nurse Team Regarding Patient: Roxana Ch, Status: In Progress Comment: Lianna Rousseau - 24 Mar 2017 10:13 AM TASK CREATED Pt. stated that ever since she has been taking Prednisone her BP has been going up. 03/23/17- BP 168/66 BS: 114 she is concerned please call her back at number listed in chart Martha Herrera - 24 Mar 2017 12:21 PM TASK EDITED Called pt. LMOM for her to rcto. Prednisone will do this. It causes your body to retain fluid and will increase bp, bs and pulse. She is tapering her dose so this should improve. Martha Herrera - 24 Mar 2017 12:21 PM TASK IN PROGRESS Radha Monge - 24 Mar 2017 12:36 PM TASK EDITED Roxana returned the call and was given Martha's message and she verbalized understanding. Task complete. Signatures Electronically signed by : Radha Monge MA; Mar 24 2017 12:36PM OPTICS TECHNICAL OFFICER (Author) documented in this encounter Plan of Treatment Not on file documented as of this encounter Visit Diagnoses Not on filedocumented in this encounter
--- OUTSIDE RECORDS SUMMARY | 2024-04-05 00:27 | XMS_ITS | Encounter Summary ---
Author Organization [facility] Address [address] [place] [address]. [place] [address] [place] [address] Care Team Providers Care Almond Blancher Hand Name Role Phone Unavailable Primary Care Provider Unavailabl e Encounter Details Date Type Department Care Team (Late st Contact Info) Description 11/30/2016 Abstract [facility] Family & Internal Medicine [facility] [address] [place] [address] [place] [address] [place] [address] Social History Tobacco Use Types Packs/Day Years Used Date Smoking Tobacco: Never Assessed Comments Unknown Sex and Gender Information Value Date Recorded Sex Assigned at Not on file Legal Sex Female 8:14 PM CDT Gender Identity Not on file Sexual Orientation Not on file documented as of this encounter Last Filed Vital Signs Vital Sign Reading Time Taken Comments Blood Pressure 150/78 11/30/2016 9:23 AM CDT Pulse 101 11/30/2016 9:23 AM CDT Temperature - - Respiratory Rate - - Oxygen Saturation - - Inhaled Oxygen Concentration - - Weight 56.7 kg (125 lb) 11/30/2016 9:23 AM CDT Height 157.5 cm (5' 2 ) 11/30/2016 9:23 AM CDT Body Mass Index 22.86 11/30/2016 9:23 AM CDT documented in this encounter Progress Notes * Noemi Jade MD - 11/30/2016 9:20 AM CDT Reason For Visit Acute Follow-Up Visit Chief Complaint pt here today c/o rash on UE and LE, torso x 1.5 weeks. Also pt went to the urgent care over the weekend for the rash. Pt also c/o left lower abd pain and having diarrhea x 2 months. History of Present Illness HPI Free Text: An 81-year-old female with a rash. She has had this since November 17. Was seen and treated with a Medrol Dosepak and betamethasone. However, this failed to respond. It is on her chest, arms, legs, lower abdomen; extremely pruritic especially at night. Rash (Brief): The patient is being seen for follow-up of a rash. Management changes made at the last visit include adjusted medications. Symptoms: pruritus and fatigue, but no fever The patient presents with complaints of gradual onset of moderate bilateral truncal area, bilateralarm, bilateral buttock and bilateral leg rash. Symptom Cluster Details: she reports the symptoms are worsening. Current Treatment: Current treatment includes oral corticosteroids. By report, there is good adherence with treatment, good tolerance of treatment and fair symptom control. Pertinent History: no known exposures. Fall Risk Assessment: Falls: Reports one fall without injury in past year . Worries about falling or feels unsteady when standing or walking. Fall risk factors: deconditioning and pt now uses a walker and tends to walk to fast and trips overher feet. Review of Systems Eyes, Cardiovascular, Respiratory, Genitourinary, Musculoskeletal, Neurological, Psychiatric, Endocrine and Hematologic review of systems normal except as noted. Constitutional: fatigue. ENT: (ear fullness on the right). Gastrointestinal: (diarrhea & LLQ abdominal discomfort). Integumentary: skin lesion and itching. Active Problems 1. Claudication (443.9) (I73.9) 2. Contact dermatitis (692.9) (L25.9) 3. Diabetes mellitus (250.00) (E11.9) 4. 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 Hyperlipidemia (272.4) (E78.5) 6. Hypertension (401.9) (I10) 7. Hypothyroidism (244.9) (E03.9) 8. Insomnia (780.52) (G47.00) 9. Lumbago (724.2) (M54.5) 10. Rash (782.1) (R21) 11. Urinary frequency (788.41) (R35.0) 12. Vitamin d deficiency (268.9) (E55.9) Past Medical [...] TAKE 1 TABLET BY MOUTH DAILY; Therapy: 94Pda5740 to (Evaluate:24Feb2017) Requested for: 47Ecd8133; Last Rx:[id number] Ordered 2. Clotrimazole-Betamethasone 1-0.05 % External Cream; APPLY AND RUB IN A THIN FILM TO AFFECTED AREAS TWICE DAILY.(AM AND PM); Therapy: 19Zcj9082 to (Last Rx:[id number]) Requested for: 68Skh3476 Ordered 3. Enalapril Maleate 20 MG Oral Tablet; TAKE 1 TABLET BY MOUTH DAILY DIRECTED; Therapy: 23Jan2014 to (Evaluate:21Tmm1338) Requested for: 01Iqa1743; Last Rx:99Puq4729 Ordered 4. Janumet 50-500 MG Oral Tablet; TAKE ONE TABLET BY MOUTH TWICE DAILY WITH MEALS; Therapy: 49Bxv4773 to (Evaluate:26Bqz5427) Requested for: 24Sep2016; Last Rx:24Sep2016 Ordered 5. Levothyroxine Sodium 50 MCG Oral Tablet; TAKE 1 TABLET EVERY SAT & SUN; Therapy: 30Apr2014 to (Evaluate:06Feb2017) Requested for: 10Aug2016; Last Rx:10Aug2016 Ordered 6. Levothyroxine Sodium 75 MCG Oral Tablet; TAKE 1 TABLET EVERY OTHER DAY; Therapy: 10Feb2016 to (Evaluate:05Aug2017) Requested for: 10Aug2016; Last Rx:10Aug2016 Ordered 7. Loratadine 10 MG Oral Tablet; TAKE 1 TABLET DAILY NEEDED; Therapy: 17Nov2016 to (Evaluate:36Qmn6549) Requested for: 16Evc4842; Last Rx:11Gwj2085 Ordered 8. Melatonin 10 MG Oral Capsule; TAKE 1 PO AT HS; Therapy: 07Aug2015 to (Evaluate:09Sep2016) Recorded 9. MethylPREDNISolone 4 MG Oral Tablet; Take 6 tablets day one, 5 tablets day 2, 4 tablets day 3, 3 tablets day 4, 2 tablets day 5 and 1 tablet day 6; Therapy: 30Nov2016 to Recorded 10. OneTouch Ultra Blue In Vitro Strip; 1 Strip 3X/weekly & PRN; Therapy: 23Jan2015 to (Evaluate:22Jul2015); Last Rx:23Jan2015 Ordered 11. Pantoprazole Sodium 40 MG Oral Tablet Delayed Release; TAKE 1 TABLET BY MOUTH EVERY DAY; Therapy: 16Jan2014 to (Evaluate:43Zjn0190) Requested for: 14Sep2016; Last Rx:14Sep2016 Ordered 12. Pravastatin Sodium 40 MG Oral Tablet; TAKE 1 TABLET AT BEDTIME; Therapy: 30Apr2014 to (Evaluate:10Feb2017) Requested for: 59Uzw7528; Last Rx:[id number] Ordered 13. RaNITidine HCl - 150 MG Oral Tablet; TAKE 1 TABLET TWICE DAILY; Therapy: 79Zgq0031 to (Evaluate:64Idy3105) Requested for: 06Ykq9396; Last Rx:75Ijr1237 Ordered 14. TiZANidine HCl - 2 MG Oral Tablet; 1- 2 po HS PRN neck pain; Therapy: 68Lew9875 to (Evaluate:09Feb2016) Requested for: [address]; Last Rx:44Gje3986 Ordered Allergies 1. No Known Drug Allergies Vitals Recorded: 30Nov2016 09:23AM Temperature 98.1 F Heart Rate 101 Respiration 20 Systolic 150 Diastolic 78 O2 Saturation 98 Height 5 ft 2 in Weight 125 lb BMI Calculated 22.86 BSA Calculated 1.57 Physical Exam Constitutional General appearance: No acute distress, well appearing and well nourished. Eyes Conjunctiva and lids: No swelling, erythema or discharge. Ears, Nose, Mouth, and Throat External inspection of ears and nose: Normal. Otoscopic examination: Abnormal. The left tympanic membrane was normal. The right external canal had a cerumen impaction. Pulmonary Respiratory effort: No increased work of breathing or signs of respiratory distress. Auscultation of lungs: Clear to auscultation. Cardiovascular Auscultation of heart: Normal rate and rhythm, normal S1 and S2, without murmurs. Examination of extremities for edema and/or varicosities: Normal. Abdomen Abdomen: Abnormal. The abdomen was flat. Bowel sounds were normal. The abdomen was soft. There was mild tenderness. tenderness in the left lower quadrant. Lymphatic Palpation of lymph nodes in neck: No lymphadenopathy. Skin Examination of the skin for lesions: Abnormal. Multiple, pink, salmon macule(s) with smooth borders. Neurologic Cranial nerves: Cranial nerves 2-12 intact. Psychiatric Orientation to person, place, and time: Normal. Mood and affect: Normal. Results/Data CBC W Differential 30Nov2016 10:11AM Noemi Jade Test Name Result Flag Reference WBC 7.2 x10'3/uL 4.4-11.0 RBC 4.78 x10'6/uL 4.50-5.10 Hemoglobin (HGB) 12.9 G/DL 12.3-15.3 Hematocrit (HCT) 40.1 % 35.9-44.6 Mean Corpuscular Volume (MCV) 83.9 FL 80.0-96.0 Mean Corpuscular Hgb (MCH) 27.0 PG 25.3-30.9 Mean Corpuscular Hgb Conc (MCH 32.2 G/DL 31.0-34.1 RDW 14.2 % 12.4-15.1 PLATELET COUNT 250 x10'3/uL 151-353 Mean Platelet Volume (MPV) 10.9 FL 9.6-12.0 Segmented Neutrophils 86 % H 42-72 Band Neutrophils 1 % Lymphocytes 5 % L 15.8-45.0 Monocytes 8 % 5.7-12.5 Total Absolute Neutrophils 6.26 x10'3/uL H 1.40-6.00 ABS. LYMPHOCYTES 0.36 x10'3/uL L 0.80-4.70 Platelet Evaluation NORMAL RBC Morphology NORMAL WBC Morphology NORMAL Compr Metabolic Prof ( CMP ) [id number] 10:11AM Noemi Jade Test Name Result Flag Reference Glucose 139 MG/DL H 83-110 Blood Urea Nitrogen (BUN) 16 MG/DL 9.8-20.1 Creatinine 0.84 MG/DL 0.57-1.11 Sodium (Na) 139 MMOL/L 136-145 Potassium (K) 4.1 MMOL/L 3.5-5.1 Chloride (Cl) 106 MMOL/L 98-107 Carbon Dioxide (CO2) 22.0 MMOL/L L 23-31 Anion Gap 15.1 MMOL/L 10.0-24.0 OSMOLALITY CALC 281 MOSM/KG 271-290 Calcium 10.1 MG/DL 8.4-10.2 Total Bilirubin 0.6 MG/DL 0.2-1.2 Total Protein 7.4 G/DL 6.4-8.3 Albumin 4.5 G/DL 3.4-4.8 AST/GOT 13 U/L 5-34 ALT/GPT 13 U/L 6-55 Alkaline Phosphatase (ALKP) 86 U/L 30-130 BUN CREATININE RATIO 19.0 6.0-26.0 A:G Ratio 1.6 RATIO 1.1-1.9 Glomerular Filt Rate Calc (Report) >60 >60 GFR Reference Range: Kidney Failure - <15mL/min Chronic Kidney Disease - <60mL/min Normal Kidney Function - >60mL/min GFR calculation is not recommended for Patients less than 18 years or greater than 70 years as per the national Kidney Foundation. If the patient is -[place], multiply results by 1.21 Hemoglobin A1C ( HA1C ) [id number] 10:11AM Noemi Jade Test Name Result Flag Reference Hemoglobin A1c 6.3 % H <5.7 INCREASED RISK OF DIABETES <5.7% NON-DIABETES 5.7-6.4% INCREASED RISK FOR FUTURE DIABETES > OR = 6.5 CONSISTENT WITH DIABETES STANDARDS OF MEDICAL CARE IN DIABETES-2010 DIABETES CARE, 33(SUPP 1): S1-S61,2010 TSH W Reflex Free T4 30Nov2016 10:11AM Noemi Jade Test Name Result Flag Reference TSH w Reflex Free T4 0.36 uIU/mL 0.35-4.94 FREE T4 NOT INDICATED Procedure Procedure: cerumen removal. Indication: tympanic membrane(s) could not be visualized, cerumen impaction and pt complain of fullness sensation in the right ear. Prep: hydrogen peroxide was placed in the canal prior to the procedure. Procedure Note: The procedure was performed by the Provider. A ototoscope was placed in the ear canal(s) to visualize the ear canal debris. The ear was cleaned by using warm water irrigation and a curette. Post-Procedure: Patient Status: the patient tolerated the procedure well. Complications: there were no complications. Patient instructions: dry ear precautions and avoid using q-tips. Follow-up as needed. Assessment 1. Ear fullness (388.8) (H93.8X9) 2. Rash (782.1) (R21) 3. Diarrhea (787.91) (R19.7) 4. Abdominal pain, chronic, left lower quadrant (789.04,338.29) (R10.32,G89.29) Plan Diabetes mellitus 1. *Venipuncture In Office; Status:Complete; Done: 30Nov2016 Perform:In Office; Due:30Dec2016; Last Updated By:Izabella Ye; 11/30/2016 3:44:53 PM;Ordered; For:Diabetes mellitus; Ordered By:Noemi Jade; 2. CBC W Differential; Status:Complete; Done: 30Nov2016 10:11AM Performed:[facility]; Due:78Oln8464;Ordered; For:Diabetes mellitus; Ordered By:Noemi Jade; 3. Compr Metabolic Prof ( CMP ); Status:Complete; Done: 30Nov2016 10:11AM Performed:[facility]; Due:05Ttu2725;Ordered; For:Diabetes mellitus; Ordered By:Noemi Jade; 4. Hemoglobin A1C ( HA1C ); Status:Complete; Done: 30Nov2016 10:11AM Performed:[facility]; Due:45Ksn0925;Ordered; For:Diabetes mellitus; Ordered By:Noemi Jade; 5. TSH W Reflex Free T4; Status:Complete; Done: 30Nov2016 10:11AM Performed:[facility]; Due:16Oin1110;Ordered; For:Diabetes mellitus; Ordered By:Noemi Jade; Ear fullness 6. *Ear lavage (removal with instrument) In Office; Status:Canceled; Perform:In Office; Due:10Dec2016; Last Updated By:Martha Herrera; 12/01/2016 11:49:03 AM;Ordered; For:Ear fullness; Ordered By:Michael Jade; Rash 7. HydrOXYzine HCl - 25 MG Oral Tablet; TAKE 1 TABLET AT BEDTIME NEEDED Rx By: Noemi Jade; Dispense: 30 Days ; #:30 Tablet; Refill: 2; For: Rash; HI = N; Verified Transmission to [facility] [address]; Last Updated By: Rosalba Felder; 11/30/2016 10:14:20 AM 8. Follow-up PRN Outpatient Follow-up Status: Complete Done: 30Nov2016 Ordered; For: Rash; Ordered By: Noemi Jade Performed: Due: 14Dec2016 CT ABDOMEN PELVIS W; Status:Need Information - Financial Authorization; Requested for:30Nov2016; Perform:[facility]; Due:30Dec2016;Ordered; For:Abdominal pain, chronic, left lower quadrant; Ordered By:Noemi Jade; Annotations LLQ abd pain associated with uncontrollable diarrhea off & on for a month now worse. h/o severe diverticulits Discussion/Summary 1. Rash. We will check labs. Discussed possible exposures. We will try Elimite and hydroxyzine for the itching at night to see if this helps. 2. Ear fullness. We will lavage the ear at patient request. 3. Patient had an episode of abdominal discomfort and diarrhea. Check CT of the abdomen for diverticulosis. Otherwise, RTO if worse, not better or PRN. Falls risk assessment completed. Signatures Electronically signed by : Noemi Jade M.D.; Dec 03 2016 4:48PM RES COUNSELOR (Author) * Noemi Jade MD - 11/30/2016 9:20 AM CDT Message pt informed and vocalized understanding. Verified Results CBC W Differential [id number] 10:11AM Noemi Jade Test Name Result Flag Reference WBC 7.2 x10'3/uL 4.4-11.0 RBC 4.78 x10'6/uL 4.50-5.10 Hemoglobin (HGB) 12.9 G/DL 12.3-15.3 Hematocrit (HCT) 40.1 % 35.9-44.6 Mean Corpuscular Volume (MCV) 83.9 FL 80.0-96.0 Mean Corpuscular Hgb (MCH) 27.0 PG 25.3-30.9 Mean Corpuscular Hgb Conc (MCH 32.2 G/DL 31.0-34.1 RDW 14.2 % 12.4-15.1 PLATELET COUNT 250 x10'3/uL 151-353 Mean Platelet Volume (MPV) 10.9 FL 9.6-12.0 Segmented Neutrophils 86 % H 42-72 Band Neutrophils 1 % Lymphocytes 5 % L 15.8-45.0 Monocytes 8 % 5.7-12.5 Total Absolute Neutrophils 6.26 x10'3/uL H 1.40-6.00 ABS. LYMPHOCYTES 0.36 x10'3/uL L 0.80-4.70 Platelet Evaluation NORMAL RBC Morphology NORMAL WBC Morphology NORMAL Compr Metabolic Prof ( CMP ) [id number] 10:11AM Noemi Jade Test Name Result Flag Reference Glucose 139 MG/DL H 83-110 Blood Urea Nitrogen (BUN) 16 MG/DL 9.8-20.1 Creatinine 0.84 MG/DL 0.57-1.11 Sodium (Na) 139 MMOL/L 136-145 Potassium (K) 4.1 MMOL/L 3.5-5.1 Chloride (Cl) 106 MMOL/L 98-107 Carbon Dioxide (CO2) 22.0 MMOL/L L 23-31 Anion Gap 15.1 MMOL/L 10.0-24.0 OSMOLALITY CALC 281 MOSM/KG 271-290 Calcium 10.1 MG/DL 8.4-10.2 Total Bilirubin 0.6 MG/DL 0.2-1.2 Total Protein 7.4 G/DL 6.4-8.3 Albumin 4.5 G/DL 3.4-4.8 AST/GOT 13 U/L 5-34 ALT/GPT 13 U/L 6-55 Alkaline Phosphatase (ALKP) 86 U/L 30-130 BUN CREATININE RATIO 19.0 6.0-26.0 A:G Ratio 1.6 RATIO 1.1-1.9 Glomerular Filt Rate Calc (Report) >60 >60 GFR Reference Range: Kidney Failure - <15mL/min Chronic Kidney Disease - <60mL/min Normal Kidney Function - >60mL/min GFR calculation is not recommended for Patients less than 18 years or greater than 70 years as per the national Kidney Foundation. If the patient is -[place], multiply results by 1.21 Hemoglobin A1C ( HA1C ) 30Nov2016 10:11AM Nomei Jade Test Name Result Flag Reference Hemoglobin A1c 6.3 % H <5.7 INCREASED RISK OF DIABETES <5.7% NON-DIABETES 5.7-6.4% INCREASED RISK FOR FUTURE DIABETES > OR = 6.5 CONSISTENT WITH DIABETES STANDARDS OF MEDICAL CARE IN DIABETES-2010 DIABETES CARE, 33(SUPP 1): S1-S61,2009 TSH W Reflex Free T4 30Nov2016 10:11AM Noemi Jade Test Name Result Flag Reference TSH w Reflex Free T4 0.36 uIU/mL 0.35-4.94 FREE T4 NOT INDICATED Plan Diabetes mellitus ?? *Venipuncture In Office; Status:Complete; Done: 30Nov2016 ?? CBC W Differential; Status:Resulted - Requires Verification; Done: 30Nov2016 10:11AM ?? Compr Metabolic Prof ( CMP ); Status:Resulted - Requires Verification; Done: 30Nov2016 10:11AM ?? Hemoglobin A1C ( HA1C ); Status:Resulted - Requires Verification; Done: 30Nov2016 10:11AM ?? TSH W Reflex Free T4; Status:Complete; Done: 30Nov2016 10:11AM Ear fullness ?? *Ear lavage (removal with instrument) In Office; Status:Active; Requested for:30Nov2016; Rash ?? HydrOXYzine HCl - 25 MG Oral Tablet; TAKE 1 TABLET AT BEDTIME NEEDED ?? Permethrin 5 % External Cream; MASSAGE INTO SKIN FROM HEAD TO SOLES OF FEET. WASH OFF AFTER 8-14 HOURS ?? Follow-up PRN Outpatient Follow-up Status: Complete Done: [id number] Signatures Electronically signed by : Sharonda Whiting MA; Dec 04 2016 3:23PM RES COUNSELOR (Author) documented in this encounter Plan of Treatment Not on file documented as of this encounter Procedures Procedure Name Priority Date/Time Associated Diagnosis Comments CT ABD+PEL W CON Routine 12/03/2016 3:35 PM CDT TSH W/REFLEX Routine 11/30/2016 10:11 AM CDT HEMOGLOBIN, GLYCOSYLATED Routine 11/30/2016 10:11 AM CDT COMPREHENSIVE METABOLIC PANEL Routine 11/30/2016 10:11 AM CDT CBC W/DIFF AUTOMATED Routine 11/30/2016 10:11 AM CDT documented in this encounter Results * CT ABD+PEL W CON (12/03/2016 3:35 PM CDT) Anatomical Region Laterality Modality Abdomen Computed Tomogra phy 12/03/2016 3:35 PM CDT 12/03/2016 3:35 PM CDT Narrative 12/03/2016 3:49 PM CDT RITCHIEROXANA ? ADMIT/SERVICE DATE: 12/03/16 ?? ACCT: [id number] ?DISCHARGE DATE: ?? : 1935 ??SEX: F ?[facility] SITE: [facility] ?? PT TYPE: REG CLI ? ORDERING MD: NOEMI JADE MD ? STUDY DATE ? REPORT # ?ORDER # ? EXT ORDER ID ?? 12/03/16 ? [id number] ? [id number] ?[id number] ? PROC CODE: ? ABDPELWC ? PROCEDURE DESCRIPTION: ?? CT ABDOMEN PELVIS W ? IMAGING STUDIES: CT ABDOMEN PELVIS W ?DATE: 12/03/2016 11:24 AM ? CLINICAL HISTORY: OTHER - CT, R10.32 ??. ??LEFT LOWER QUADRANT PAIN FOR ONE MONTH. APPENDECTOMY. CHOLECYSTECTOMY. HISTORY OF SEVERE DIVERTICULITIS. ? CONCLUSION: ?? 1. ??ROUTINE CT OF THE ABDOMEN AND PELVIS WITH CONTRAST. COMPARISON 02/06/2015. ??IV ADMINISTRATION OF [address]. ? . RADIATION DOSE REDUCTION TECHNIQUE WAS UTILIZED. ? 2. ??POSSIBLE MUCOSAL THICKENING AT THE JUNCTION OF THE ANUS AND RECTUM. PLEASE ASSESS FOR ANY UNDERLYING LESION WITH COLONOSCOPY. THERE IS MODERATE SIZE FECAL IMPACTION IN THE RECTUM MEASURING 9.4 CM IN GREATEST DIMENSION. MODERATELY LARGE AMOUNT OF STOOL IN THE COLON WITHOUT GROSS OBSTRUCTION. NUMEROUS COLONIC DIVERTICULI MOST PROMINENT IN THE SIGMOID COLON WITHOUT DIVERTICULITIS. ? 3. ??MILD FATTY INFILTRATION OF THE LIVER WITHOUT MASS. ALL OTHER VISUALIZED VISCERAL STRUCTURES ARE WITHIN NORMAL LIMITS. ??NO FREE FLUID OR FREE AIR.. NO RENAL CALCULI OR HYDRONEPHROSIS. CHOLECYSTECTOMY. APPENDECTOMY. HYSTERECTOMY. ? 4. ??NORMAL APPEARANCE TO STOMACH AND SMALL BOWEL..ATHEROSCLEROTIC NORMAL-SIZED AORTA. NO PATHOLOGIC LYMPHADENOPATHY. ? 5. ??LUNG BASES WITH MILD SCAR. NO INFILTRATE.. DEGENERATIVE CHANGE IN LUMBAR SPINE. STABLE 80% MID BODY COMPRESSION DEFORMITY OF L1 WITH MINIMAL RETROPULSION. ? ELECTRONICALLY SIGNED BY Maren CULLEN MD ON 12/03/2016 3:45 PM ? Procedure Note Noemi Jade MD - 01/27/2018 ROXANA RITCHIE ADMIT/SERVICE DATE:12/03/16 ACCT: [id number] DISCHARGE DATE: : 1935 SEX: F ORD SITE: [facility] PT TYPE: REG CLI ORDERING MD:NOEMI JADE MD STUDY DATE REPORT # ORDER # EXT ORDER ID 12/03/16 [id number] PROC CODE: ABDPELWC PROCEDURE DESCRIPTION: CT ABDOMEN PELVIS W IMAGING STUDIES: CT ABDOMEN PELVIS W DATE: 12/03/2016 11:24 AM CLINICAL HISTORY: OTHER - CT, R10.32 . LEFT LOWER QUADRANT PAIN FOR ONEMONTH. APPENDECTOMY. CHOLECYSTECTOMY. HISTORY OF SEVERE DIVERTICULITIS. CONCLUSION: 1. ROUTINE CT OF THE ABDOMEN AND PELVIS WITH CONTRAST. UFMGVESURM44/4/2015. IV ADMINISTRATION OF 75 [address]. . RADIATION DOSE REDUCTION TECHNIQUE WASUTILIZED. 2. POSSIBLE MUCOSAL THICKENING AT THE JUNCTION OF THE ANUS AND RECTUM.PLEASE ASSESS FOR ANY UNDERLYING LESION WITH COLONOSCOPY. THERE IS MODERATE SIZE FECAL IMPACTIONIN THE RECTUM MEASURING 9.4 CM IN GREATEST DIMENSION. MODERATELY LARGE AMOUNT OF STOOL IN THECOLON WITHOUT GROSS OBSTRUCTION. NUMEROUS COLONIC DIVERTICULI MOST PROMINENT IN THE SIGMOIDCOLON WITHOUT DIVERTICULITIS. 3. MILD FATTY INFILTRATION OF THE LIVER WITHOUT MASS. ALL OTHERVISUALIZED VISCERAL STRUCTURES ARE WITHIN NORMAL LIMITS. NO FREE FLUID OR FREE AIR.. NO RENAL CALCULI ORHYDRONEPHROSIS. CHOLECYSTECTOMY. APPENDECTOMY. HYSTERECTOMY. 4. NORMAL APPEARANCE TO STOMACH AND SMALL BOWEL..ATHEROSCLEROTICNORMAL-SIZED AORTA. NO PATHOLOGIC LYMPHADENOPATHY. 5. LUNG BASES WITH MILD SCAR. NO INFILTRATE.. DEGENERATIVE CHANGE INLUMBAR SPINE. STABLE 80% MID BODY COMPRESSION DEFORMITY OF L1 WITH MINIMAL RETROPULSION. ELECTRONICALLY SIGNED BY Mraen CULLEN MD ON 12/03/2016 3:[address] Jade MD CT Final Result * (ABNORMAL) HEMOGLOBIN, GLYCOSYLATED (11/30/2016 10:11 AM CDT) HGB A1C 6.3(H) <5.7 % [facility] T O EPIC CONVERSION Comment: Result Comment: ?? INCREASED RISK OF DIABETES <5.7% ?NON-DIABETES 5.7-6.4% INCREASED RISK FOR FUTURE DIABETES > OR = 6.5 CONSISTENT WITH DIABETES ?? STANDARDS OF MEDICAL CARE IN DIABETES-2010 DIABETES CARE, 33(SUPP 1): S1-S61,2009 11/30/2016 10:1 1 AM CDT 11/30/2016 10:11 AM CDT Narrative [facility] TO EPIC CONVERSION - 11/30/2016 2:28 PM CDT Result Communication: Call patient with results Noemi Jade MD LABORATORY Final Result [facility] TO EPIC CONVERSION * (ABNORMAL) CBC W/DIFF AUTOMATED (11/30/2016 10:11 AM CDT) WBC 7.2 4.4 - 11.0 x10'3/uL [facility] TO EPIC CONVERSION RBC 4.78 4.50 - 5.10 x10'6/uL [facility] TO EPIC CONVERSION HGB 12.9 12.3 - 15.3 G/DL [facility] TO EPIC CONVERSION HCT 40.1 35.9 - 44.6 % [facility] TO EPIC CONVERSION MCV 83.9 80.0 - 96.0 FL [facility] TO EPIC CONVERSION MCH 27.0 25.3 - 30.9 PG [facility] TO EPIC CONVERSION MCHC 32.2 31.0 - 34.1 G/DL [facility] TO EPIC CONVERSION RDW 14.2 12.4 - 15.1 % [facility] TO EPIC CONVERSION PLT 250 151 - 353 x10'3/uL [facility] TO EPIC CONVERSION GLUCOSE 10.9 9.6 - 12.0 FL [facility] TO EPIC CONVERSION ABS. NEUTROPHILS TOTAL 6.26(H) 1.40 - 6.00 x10'3/uL [facility] TO EPIC CONVERSION SEG NEUTROPHILS 86(H) 42 - 72 % [facility] ROUP TO EPIC CONVERSION BANDS 1 % [facility] T O EPIC CONVERSION LYMPHOCYTES 5(L) 15.8 - 45.0 % [facility] TO EPIC CONVERSION MONOCYTES 8 5.7 - 12.5 % [facility] TO EPIC CONVERSION WBC MORPHOLOGY NORMAL [facility] OUP TO EPIC CONVERSION PLT MORPH. NORMAL [facility] TO EPIC CONVERSION RBC MORPHOLOGY NORMAL [facility] OUP TO EPIC CONVERSION ABS. LYMPHOCYTES 0.36(L) 0.80 - 4.70 x10'3/uL [facility] TO EPIC CONVERSION 11/30/2016 10:1 1 AM CDT 11/30/2016 10:11 AM CDT Narrative [facility] TO EPIC CONVERSION - 11/30/2016 2:28 PM CDT Result Communication: Call patient with results Noemi Jade MD LABORATORY Final Result Performing Organization Address City/[facility]/ZIP Co de Phone Number [facility] TO EPIC CONVERSION * TSH W/REFLEX (SNS) (11/30/2016 10:11 AM CDT) TSH 0.36 0.35 - 4.94 uIU/mL [facility] TO EPIC CONVERSION Comment:Result Comment: FREE T4 NOT INDICATED 11/30/2016 10:1 1 AM CDT 11/30/2016 10:11 AM CDT Narrative [facility] TO EPIC CONVERSION - 11/30/2016 2:53 PM CDT Result Communication: Call patient with results Noemi Jade MD LABORATORY Final Result [facility] TO EPIC CONVERSION * (ABNORMAL) COMPREHENSIVE METABOLIC PANEL (11/30/2016 10:11 AM CDT) SODIUM S/P/B 139 136 - 145 MMOL/L [facility] TO EPIC CONVERSION POTASSIUM S/P/B 4.1 3.5 - 5.1 MMOL/L [facility] TO EPIC CONVERSION CHLORIDE S/P/B 106 98 - 107 MMOL/L [facility] TO EPIC CONVERSION CO2 22.0(L) 23 - 31 MMOL/L [facility] TO EPIC CONVERSION ANION GAP 15.1 10.0 - 24.0 MMOL/L [facility] TO EPIC CONVERSION BUN 16 9.8 - 20.1 MG/DL [facility] TO EPIC CONVERSION CREATININE S/P/B 0.84 0.57 - 1.11 MG/DL [facility] TO EPIC CONVERSION GFR ESTIMATE >60 ?? GFR Reference Range: Kidney Failure - <15mL/min Chronic Kidney Disease - <60mL/min Normal Kidney Function - >60mL/min GFR calculation is not recommended for Patients less than 18 years or greater than 70 years as per the national Kidney Foundation. If the patient is -[place], multiply results by 1.21 >60 ML/MIN/1 .73 M2 [facility] TO EPIC CONVERSION BUN CREATININE RATIO 19.0 6.0 - 26.0 [facility] TO EPIC CONVERSION GLUCOSE 139(H) 83 - 110 MG/DL [facility] TO EPIC CONVERSION OSMOLALITY (CALC) 281 271 - 290 MOSM/KG [facility] TO EPIC CONVERSION CALCIUM S/P/B 10.1 8.4 - 10.2 MG/DL [facility] TO EPIC CONVERSION BILIRUBIN TOTAL S/P/B 0.6 0.2 - 1.2 MG/DL [facility] TO EPIC CONVERSION AST 13 5 - 34 U/L [facility] TO EPIC CONVERSION ALT 13 6 - 55 U/L [facility] TO EPIC CONVERSION ALKALINE PHOSPHATASE S/P/B 86 30 - 130 U/L [facility] TO EPIC CONVERSION TOTAL PROTEIN S/P/B 7.4 6.4 - 8.3 G/DL [facility] TO EPIC CONVERSION ALBUMIN S/P/B 4.5 3.4 - 4.8 G/DL [facility] TO EPIC CONVERSION A/G RATIO 1.6 1.1 - 1.9 RATIO [facility] TO EPIC CONVERSION 11/30/2016 10:1 1 AM CDT 11/30/2016 10:11 AM CDT Narrative [facility] TO EPIC CONVERSION - 11/30/2016 2:52 PM CDT Result Communication: Call patient with results Noemi Jade MD LABORATORY Final Result [employer] TO EPIC CONVERSION documented in this encounter Visit Diagnoses Not on filedocumented in this encounter
--- OUTSIDE RECORDS SUMMARY | 2024-04-05 00:27 | XMS_ITS | Encounter Summary ---
Author Organization [facility] Address [address] [place] [address]. [place], [place] [address] [place] [address] Care Team Providers Care Cardiology Physician Assistant Name Role Phone Noemi Barnard MD Primary Care Provider [phone] Encounter Details Date Type Department Care Team (Late st Contact Info) Description 12/03/2016 Abstract [facility] Diagnostic Imaging [address] [place], [place] [id number] [place] [address] [place], [place] [id number] Social History Tobacco Use Types Packs/Day Years [...] quadrant documented in this encounter Care Teams Cardiology Physician Assistant Relationship Specialty Start Date End Date Noemi Barnard MD PCP - General INTERNAL MEDICINE 02/22/18 07/03/18 documented as of this encounter
--- OUTSIDE RECORDS SUMMARY | 2024-04-05 00:27 | XMS_ITS | Encounter Summary ---
Author Organization [facility] Address [address] [place] [address]. [place], [place] [address] [place] [address] Care Team Providers Care Surgical Instrument Maker Name Role Phone Noemi Barnard MD Primary Care Provider [phone] Encounter Details Date Type Department Care Team (Late st Contact Info) Description 07/29/2016 Abstract [facility] [address] [place], [place] [phone] [place] [address] [place], [place] [id number] Social History Tobacco Use Types Packs/Day Years [...] Visit Diagnoses Diagnosis Type 2 diabetes mellitus without complications (CMS/HCC HHS/HCC) Type II or unspecified type diabetes mellitus without mention of complication, not stated as uncontrolled documented in this encounter Care Teams Surgical Instrument Maker Relationship Specialty Start Date End Date Noemi Barnard MD PCP - General INTERNAL MEDICINE 02/22/18 07/03/18 documented as of this encounter
--- OUTSIDE RECORDS SUMMARY | 2024-04-05 00:27 | XMS_ITS | Encounter Summary ---
Author Organization [facility] Address [address] [facility] [place] [address] [place] [address] Care Team Providers Care Film Splicer Name Role Phone Unavailable Primary Care Provider Unavailabl e Encounter Details Date Type Department Care Team (Latest Contact Info) Description 12/08/2016 Abstract [facility] Medical Group Social History Tobacco Use Types Packs/Day Years Used Date Smoking Tobacco: Never Assessed Comments Unknown Sex and Gender Information Value Date Recorded Sex Assigned at Not on file Legal Sex Female 8:14 PM CDT Gender Identity Not on file Sexual Orientation Not on file documented as of this encounter Progress Notes * Generic Conversion MD Brady - 12/08/2016 1:52 PM CDT Message Recorded as Task Date: 12/05/2016 10:08 PM, Created By: Noemi Barnard Task Name: Informational Assigned [facility] Nurse Team Regarding Patient: Roxana Ch, Status: Active Comment: Noemi Barnard - 05 Dec 2016 10:08 PM TASK CREATED Call & talk to her about her stool impaction & diarrhea Noemi Barnard - 08 Dec 2016 8:04 AM TASK REASSIGNED: Previously Assigned To Noemi Barnard the diarrhea is stool oozing around the impaction, best tx is fiber & metamucil has she been able to have some bowel movements? Martha Herrera - 08 Dec 2016 8:57 AM TASK EDITED LMOM for pt to return call. Martha Herrera - 08 Dec 2016 8:57 AM TASK IN PROGRESS Noemi Hoffman - 08 Dec 2016 1:14 PM TASK EDITED spoke with pt. she states the diarrhea has improved. she has had 1 or 2 bowel movements. she did use 2 enemas. informed her that Dr. Franklin is recommending fiber and metamucil. I tried to reach KAILEE Thomas to transfer the call but was unable. please call her back if you need to discuss this with her further. Signatures Electronically signed by : Martha Herrera R.N.; Dec 08 2016 1:52PM BALANCER SCALE (Author) documented in this encounter Plan of Treatment Not on file documented as of this encounter Visit Diagnoses Not on filedocumented in this encounter
--- OUTSIDE RECORDS SUMMARY | 2024-04-05 00:27 | XMS_ITS | Encounter Summary ---
Author Organization [facility] Address [address] [place] [address]. [place], [place] [address] [place] [address] Care Team Providers Care Clinical Trial Specialist Name Role Phone Noemi Barnard MD Primary Care Provider Encounter Details Date Type Department Care Team (Late st Contact Info) Description 07/21/2016 Abstract [facility] Laboratory [address] [place] [address] Martha Ruiz, MIKE Social History Tobacco Use [...] as of this encounter Visit Diagnoses Diagnosis Urinary tract infection Urinary tract infection, site not specified documented in this encounter Care Teams Clinical Trial Specialist Relationship Specialty Start Date End Date Noemi Barnard MD PCP - General INTERNAL MEDICINE 02/22/18 07/03/18 documented as of this encounter
--- OUTSIDE RECORDS SUMMARY | 2024-04-05 00:27 | XMS_ITS | Encounter Summary ---
Author Organization [facility] Address [address] [place] [address]. [place] [address] [place] [address] Care Team Providers Care Hearing Officer Name Role Phone Unavailable Primary Care Provider Unavailabl e Encounter Details Date Type Department Care Team (Latest Contact Info) Description 11/28/2016 Abstract [facility] [place] [address] [place] [address] Social History Tobacco Use Types [...]
--- OUTSIDE RECORDS SUMMARY | 2024-04-05 00:27 | XMS_ITS | Encounter Summary ---
Author Organization [facility] Address [address] [place] [address]. [place], [place] [address] [place] [address] Care Team Providers Care Aircraft Seat Upholsterer Name Role Phone Noemi Barnard MD Primary Care Provider Encounter Details Date Type Department Care Team (Late st Contact Info) Description 01/30/2016 Abstract [facility] [address] [place], [place] [phone] [place] [address] [place] [address] Social History Tobacco Use Types Packs/Day Years [...] as of this encounter Visit Diagnoses Diagnosis Hypothyroidism Unspecified hypothyroidism documented in this encounter Care Teams Aircraft Seat Upholsterer Relationship Specialty Start Date End Date Noemi Barnard MD PCP - General INTERNAL MEDICINE 02/22/18 07/03/18 documented as of this encounter
--- OUTSIDE RECORDS SUMMARY | 2024-04-05 00:27 | XMS_ITS | Encounter Summary ---
Author Organization [facility] Address [address] [place] [address]. [place] [address] [place] [address] Care Team Providers Care Comber Fixer Name Role Phone Noemi Barnard MD Primary Care Provider [phone] Joni Mckeon MD Unavailable [phone] Martha Ruiz NP Primary Care Provider Noemi Gracia MD Primary Care Provider [phone] Sandra Johnson RN Unavailable [phone] None, Provider Primary Care Provider Unavaila ble Encounter Details Date Type Department Care Team (Late st Contact Info) Description 05/21/2016 Abstract [facility] CONVERSION [address] [place] [address] , Generic Conversion, Social History Tobacco Use [...] Rule Out 02/12/2020 02/12/2020 02/13/2020 8:51 AM BED AND BREAKFAST INNKEEPER COVID-19 Rule Out 04/16/2020 04/16/2020 04/17/2020 6:26 PM BED AND BREAKFAST INNKEEPER COVID-19 Rule Out 05/14/2021 05/14/2021 05/14/2021 11:02 AM BED AND BREAKFAST INNKEEPER documented as of this encounter Care Teams Comber Fixer Relationship Specialty Start Date End Date Noemi Barnard MD PCP - General INTERNAL MEDICINE 02/22/18 07/03/18 Martha Ruiz, JET DYEING MACHINE TENDER [facility]. [facility] [address] [place] [address] PCP - General NURSE PRACTITIONER 07/04/18 08/22/18 Noemi Barnard MD PCP - General INTERNAL MEDICINE 08/23/18 03/03/23 None, Provider, PCP - General UNKNOWN PHYSICIAN SPECIALTY 03/04/23 Joni Mckeon MD [facility]. [facility] [address] [place] [address] [place] Kitchenhand CARDIOVASCULAR DISEASE 07/04/18 Sandra Johnson, RN [address] [place], [place] [phone] Food Critic (Ambulatory) REGISTERED NURSE 05/12/21 06/29/21 documented as of this encounter
--- OUTSIDE RECORDS SUMMARY | 2024-04-05 00:27 | XMS_ITS | Encounter Summary ---
Author Organization [facility] Address [address] [place] [address]. [place] [address] [place] [address] Care Team Providers Care Truck Operator Name Role Phone Unavailable Primary Care Provider Unavailabl e Encounter Details Date Type Department Care Team (Latest Contact Info) Description 07/27/2016 Abstract [facility] Medical Group Social History Tobacco Use Types Packs/Day Years Used Date Smoking Tobacco: Never Assessed Comments Unknown Sex and Gender Information Value Date Recorded Sex Assigned at Not on file Legal Sex Female 8:14 PM CDT Gender Identity Not on file Sexual Orientation Not on file documented as of this encounter Progress Notes * Rhianna Castaneda Md, MD - 07/27/2016 9:58 AM CDT Message Recorded as Task Date: 07/26/2016 09:44 PM, Created By: Martha Ruiz Task Name: Call Back [facility] Team Regarding Patient: Roxana Ch, Status: Active Comment: Martha Ruiz - 26 Jul 2016 9:44 PM TASK CREATED Urine did not grow out any bacteria. It was considered normal pina. How is the pt feeling? Nuha Ruiz - 27 Jul 2016 9:58 AM TASK EDITED Informed of Martha/sugar comments, pt v/u of this. Pt stated she is feeling much better, instructed to call with any questions or issues, pt v/u of this. Signatures Electronically signed by : Nuha Ruiz, ; Jul 27 2016 9:58AM PROPERTY SUPERVISOR (Author) documented in this encounter Plan of Treatment Not on file documented as of this encounter Visit Diagnoses Not on filedocumented in this encounter
--- OUTSIDE RECORDS SUMMARY | 2024-04-05 00:27 | XMS_ITS | Encounter Summary ---
Author Organization [facility] Address [facility] [facility] [place] [address] [place] [address] Care Team Providers Care Slasher Tender Helper Name Role Phone Unavailable Primary Care Provider Unavailabl e Encounter Details Date Type Department Care Team (Late st Contact Info) Description 02/03/2017 Abstract [facility] Medical Group Family & Internal Medicine [facility] [address] [place] [address] [place] [address] [place] [address] Social History Tobacco Use Types [...]
--- OUTSIDE RECORDS SUMMARY | 2024-04-05 00:27 | XMS_ITS | Encounter Summary ---
Author Organization [facility] Address [address] [place] [address]. [place], [place] [address] [place] [address] Care Team Providers Care Fountain Clerk Name Role Phone Noemi Barnard MD Primary Care Provider [phone] Encounter Details Date Type Department Care Team (Late st Contact Info) Description 08/14/2016 Abstract [facility] Diagnostic Imaging [address] [place], [place] [phone] [place] [address] [place], [place] [phone] Social History Tobacco Use Types Packs/Day Years [...] as of this encounter Visit Diagnoses Diagnosis Peripheral vascular disease (CMS/HCC) Peripheral vascular disease, unspecified documented in this encounter Care Teams Fountain Clerk Relationship Specialty Start Date End Date Noemi Barnard MD PCP - General INTERNAL MEDICINE 02/22/18 07/03/18 documented as of this encounter
--- OUTSIDE RECORDS SUMMARY | 2024-04-05 00:27 | XMS_ITS | Encounter Summary ---
Author Organization [facility] Address [address] [place] [address]. [place], [place] [address] [place] [address] Care Team Providers Care Home Security Alarm Installer Name Role Phone Noemi Barnard MD Primary Care Provider Encounter Details Date Type Department Care Team (Late st Contact Info) Description 11/01/[address] [facility] [address] [place] [place], [place] [phone] [place] [address] [place], [place] [phone] Social History Tobacco Use Types Packs/Day Years [...] Date/Time Associated Diagnosis Comments HEMOGLOBIN, GLYCOSYLATED Routine 11/01/2017 8:19 AM CDT VITAMIN B-12 Routine 11/01/2017 8:19 AM CDT ALBUMIN URINE RANDOM W/CREATININE Routine 11/01/2017 8:19 AM CDT COMPREHENSIVE METABOLIC PANEL Routine 11/01/2017 8:19 AM CDT LIPID PANEL Routine 11/01/2017 8:19 AM CDT CBC W/DIFF AUTOMATED Routine 11/01/2017 8:19 AM CDT THYROID STIM HORMONE TSH Routine 11/01/2017 8:19 AM CDT VITAMIN D, 25 OH Routine 11/01/2017 8:19 AM CDT documented in this encounter Results * VITAMIN B-12 (11/01/2017 8:19 AM CDT) VITAMIN B12 S/P/B 279 193 - 986 PG/ML 11/02/2017 12:48 PM CDT [facility] SERUM SPECIMEN / Unknown 11/01/2017 8:19 AM CDT 11/01/2017 4:27 PM CDT us Generic Conversion Md [facility] Final R esult Performing Organization Address City/[facility]/ZIP Co de Phone Number [facility] [address] [place] [address], [place] [phone] * ALBUMIN URINE RANDOM (11/01/2017 8:19 AM CDT) MICROALBUMIN (U) 0.5 <2.0 mg/dL 11/02/19 18 3:26 PM CDT [facility] URINE SPECIMEN / Unknown 11/01/2017 8:19 AM CDT 11/01/2017 2:43 PM CDT us Generic Conversion Md [facility] URINE ORDERABLES Final Result Performing Organization Address City/[facility]/ZIP Co de Phone Number [facility] [address] [place] [address], [place] [phone] * VITAMIN D, 25 OH (11/01/2017 8:19 AM CDT) VITAMIN D 25 HYDROXY S/P/B 34 30 - 100 NG/ML 11/02/2017 8:48 PM CDT [facility] Comment: ?INTERPRETATION ?DEFICIENT ??<20 ? INSUFFICIENT 20-29 ?SUFFICIENT 30-100 11/01/2017 8:19 AM CDT 11/01/2017 2:42 PM CDT us Generic Conversion Md [facility] Final [facility] [place] Performing Organization Address City/[facility]/ZIP Co de Phone Number [facility] [address] [place] [address], [place] [phone] * THYROID STIM HORMONE, TSH (11/01/2017 8:19 AM CDT) TSH 1.652 0.358 - 3.74 uIU/ML 11/01/2017 5:50 PM CDT [facility] Comment: HIGH DOSES OF BIOTIN MAY INTERFERE WITH THIS TEST RESULT. CORRELATION TO CLINICAL HISTORY AND PRESENTATION RECOMMENDED. SERUM OR PLASMA SPECIMEN / Unknown 11/01/2017 8:19 AM CDT 11/01/2017 2:42 PM CDT us Generic Conversion Md [facility] Final R esterri [facility] [address] [place] [address], [place] [phone] * LIPID PANEL (11/01/2017 8:19 AM CDT) CHOLESTEROL 160 <200.0 MG/DL 11/01/2017 5:50 PM CDT [facility] TRIGLYCERIDES 121 <150 MG/DL 11/01/2017 5:50 PM CDT [facility] HDL 75 >40.0 MG/DL 11/01/2017 5:50 PM CDT [facility] LDL (CALCULATED) 60.8 <100 MG/DL 11/02/19 18 5:50 PM CDT [facility] NON HDL CHOLESTEROL 85 <130 MG/DL 11/01 5:50 PM T [facility] CHOL/HDL RATIO 2.1 0.0 - 4.5 11/01/2017 5:50 PM T [facility] VLDL CALCULATION 24 5 - 55 MG/DL 11/01/2017 5:50 PM [facility] LIPID INTERPRETATION 11/01/2017 5:50 PM T [facility] Comment: [facility] REPORT RECOMMENDATIONS: ?ADULT ? CHILD ??LOW [...] ?HDL ?<40 ?--- ?LDL ? >=160 ?>=130 11/01/2017 8:19 AM CDT 11/01/2017 2:42 PM CDT Generic Conversion Md [facility] Final [facility] Performing Organization Address [facility] de Phone Number [facility] [address] [place] [address], * (ABNORMAL) HEMOGLOBIN, GLYCOSYLATED (11/01/2017 8:19 AM CDT) HGB A1C 6.4(H) <5.7 % 11/01/2017 3:14 PM CDT [facility] Comment: INCREASED RISK OF DIABETES<5.7% ?NON-DIABETES5.7-6.4% INCREASED RISK FOR FUTURE DIABETES> OR = 6.5 CONSISTENT WITH DIABETES STANDARDS OF MEDICAL CARE IN DIABETES-2010[facility], 33(SUPP 1): S1-S61,2010 WHOLE BLOOD SPECIMEN / Unknown 11/01/2017 8:19 AM CDT 11/01/2017 2:42 PM CDT us Generic Conversion Md [facility] Final R esult Performing Organization Address [facility] de Phone Number [facility] [address] [place] [address], * (ABNORMAL) COMPREHENSIVE METABOLIC PANEL (11/01/2017 8:19 AM CDT) [facility] Signature GLUCOSE 104(H) 70 - 99 MG/DL 11/01/2017 5:50 PM CDT [facility] BUN 12 7 - 18 MG/DL 11/01/2017 5:50 PM CDT [facility] CREATININE S/P/B 0.81 0.55 - 1.02 MG/DL 11/01/2017 5:50 PM CDT [facility] SODIUM S/P/B 143 136 - 145 MMOL/L 11/01/2017 5:50 PM CDT [facility] POTASSIUM S/P/B 3.9 3.5 - 5.1 MMOL/L 11/01/2017 5:50 PM CDT [facility] CHLORIDE S/P/B 104 100 - 108 MMOL/L 11/01/2017 5:50 PM CDT [facility] CO2 23.1 21 - 32 MMOL/L 11/01/2017 5:50 PM CDT [facility] CALCIUM S/P/B 9.6 8.5 - 10.1 MG/DL 11/01/2017 5:50 PM T [facility] BILIRUBIN TOTAL S/P/B 0.7 0.2 - 1.2 MG/DL 11/01/2017 5:50 PM CDT [facility] TOTAL PROTEIN S/P/B 7.0 6.4 - 8.2 G/DL 11/01/2017 5:50 PM T [facility] ALBUMIN S/P/B 4.0 3.4 - 5.0 G/DL 11/01/2017 5:50 PM T [facility] AST 15 15 - 37 U/L 11/01/2017 5:50 PM CDT [facility] ALT 20 14 - 55 U/L 11/01/2017 5:50 PM CDT [facility] ALKALINE PHOSPHATASE S/P/B 110 50 - 136 U/L 11/01/2017 5:50 PM CDT [facility] ANION GAP 19.8 8 - 20 MMOL/L 11/01/2017 5:50 PM CDT [facility] BUN CREATININE RATIO 14.8 6 - 26 11/01/2017 5:50 PM CDT [facility] A/G RATIO 1.3 1.0 - 2.0 RATIO 11/01/2017 5:50 PM CDT [facility] EGFR NON-AFR. AMER. 68(L) >90 ML/MIN/1.7 3 M2 11/01/2017 5:50 PM CDT [facility] EGFR AFR. AMER. 78(L) >90 ML/MIN/1.7 3 M2 11/01/2017 5:50 PM CDT [facility] Comment: NOTE: eGFR is not calculated for patients <18 years of age. This is an estimated GFR (CKD EPI) and should not be used for calculating drug doses. 11/01/2017 8:19 AM CDT 11/01/2017 2:42 PM CDT us Generic Conversion Md [facility] Final R esult [facility] [address] [place] [address], [place] [phone] * CBC W/DIFF AUTOMATED (11/01/2017 8:19 AM CDT) WBC 5.4 4.4 - 11.0 x10'3/uL 11/01/2017 2:48 PM CDT [facility] RBC 4.73 4.50 - 5.10 x10'6/uL 11/01/2017 2:48 PM CDT [facility] HGB 12.5 12.3 - 15.3 G/DL 11/01/2017 2:48 PM CDT [facility] HCT 40.3 35.9 - 44.6 % 11/01/2017 2:48 PM CDT [facility] MCV 85.2 80.0 - 96.0 FL 11/01/2017 2:48 PM CDT [facility] MCH 26.4 25.3 - 30.9 PG 11/01/2017 2:48 PM CDT [facility] MCHC 31.0 31.0 - 34.1 G/DL 11/01/2017 2:48 PM CDT [facility] RDW 14.8 12.4 - 15.1 % 11/01/2017 2:48 PM CDT [facility] PLT 213 151 - 353 x10'3/uL 11/01/2017 2:48 PM CDT [facility] MPV 10.8 9.6 - 12.0 FL 11/01/2017 2:48 PM CDT [facility] RBC MORPHOLOGY NORMAL 11/01/2017 2:48 PM CDT [facility] PLT MORPH. NORMAL 11/01/2017 2:48 PM T [facility] WBC MORPHOLOGY NORMAL 11/01/2017 2:48 PM T [facility] LYMPHOCYTES % 18.8 15.8 - 45.0 % 11/01/2017 2:48 PM CDT [facility] NEUTROPHILS % 71.0 42.1 - 71.9 % 11/01/2017 2:48 PM CDT [facility] MONOCYTES % 7.0 5.7 - 12.5 % 11/01/2017 2:48 PM CDT [facility] EOSINOPHILS 2.6 0.0 - 5.6 % 11/01/2017 2:48 PM CDT [facility] BASOPHILS 0.4 0.0 - 1.3 % 11/01/2017 2:48 PM CDT [facility] ABS. NEUTROPHILS TOTAL 3.86 1.40 - 6.00 x10'3/uL 11/01/2017 2:48 PM CDT [facility] IMMATURE GRANS % 0.2 0.0 - 0.5 % 11/01/2017 2:48 PM CDT [facility] ABS. LYMPHOCYTES 1.02 0.80 - 4.70 x10'3/uL 11/01/2017 2:48 PM CDT [facility] 11/01/2017 8:19 AM CDT 11/01/2017 2:42 PM CDT us Generic Conversion Md [facility] Final R esult [facility] [address] [place] [address], documented in this encounter Visit Diagnoses Diagnosis Type 2 diabetes mellitus without complications (CMS/HCC HHS/HCC) Type II or unspecified type diabetes mellitus without mention of complication, not stated as uncontrolled documented in this encounter Care Teams Home Security Alarm Installer Relationship Specialty Start Date End Date Noemi Barnard MD PCP - General INTERNAL MEDICINE 02/22/18 07/03/18 documented as of this encounter
--- OUTSIDE RECORDS SUMMARY | 2024-04-05 00:27 | XMS_ITS | Encounter Summary ---
Author Organization [facility] Address [address] [place] [address]. [place], [place] [address] [place] [address] Care Team Providers Care Proof Coin Collector Name Role Phone Noemi Barnard MD Primary Care Provider [phone] Encounter Details Date Type Department Care Team (Late st Contact Info) Description 11/30/2016 Abstract [facility] [address] [place], [place] [phone] [place] [address] [place], [place] [phone] Social History Tobacco Use Types Packs/Day Years [...] Date/Time Associated Diagnosis Comments TSH W/REFLEX Routine 11/30/2016 10:11 AM CDT HEMOGLOBIN, GLYCOSYLATED Routine 11/30/2016 10:11 AM CDT COMPREHENSIVE METABOLIC PANEL Routine 11/30/2016 10:11 AM CDT CBC W/DIFF AUTOMATED Routine 11/30/2016 10:11 AM CDT documented in this encounter Results * TSH W/REFLEX (11/30/2016 10:11 AM CDT) TSH 0.36 0.35 - 4.94 uIU/mL 11/30/2016 2:53 PM CDT [facility] Comment:FREE T4 NOT INDICATE D SERUM OR PLASMA SPECIMEN / Unknown 11/30/2016 10:11 AM CDT 11/30/2016 1:56 PM CDT us Generic Conversion Md [facility] Final R esult Performing Organization Address [facility] Co de Phone Number [facility] [address] [place] [address], [place] [phone] * (ABNORMAL) HEMOGLOBIN, GLYCOSYLATED (11/30/2016 10:11 AM CDT) Pathologist [facility] HGB A1C 6.3(H) <5.7 % 11/30/2016 2:28 PM CDT [facility] Comment: INCREASED RISK OF DIABETES<5.7% ?NON-DIABETES5.7-6.4% INCREASED RISK FOR FUTURE DIABETES> OR = 6.5 CONSISTENT WITH DIABETES STANDARDS OF MEDICAL CARE IN [facility]ET[facility](SUPP 1): S1-S61,2010 WHOLE BLOOD SPECIMEN / Unknown 11/30/2016 10:11 AM CDT 11/30/2016 1:56 PM CDT us Generic Conversion Md [facility] Final R esult Performing Organization Address City/[facility]/ZIP Co de Phone Number [facility] [address] [place] [address], [place] [phone] * (ABNORMAL) COMPREHENSIVE METABOLIC PANEL (11/30/2016 10:11 AM CDT) GLUCOSE 139(H) 83 - 110 MG/DL 11/30/2016 2:52 PM [facility] BUN 16 9.8 - 20.1 MG/DL 11/30/2016 2:52 PM [facility] CREATININE S/P/B 0.84 0.57 - 1.11 MG/DL 11/30/2016 2:52 PM [facility] SODIUM S/P/B 139 136 - 145 MMOL/L 11/30/2016 2:52 PM [facility] POTASSIUM S/P/B 4.1 3.5 - 5.1 MMOL/L 11/30/2016 2:52 PM [facility] CHLORIDE S/P/B 106 98 - 107 MMOL/L 11/30/2016 2:52 PM [facility] CO2 22.0(L) 23 - 31 MMOL/L 11/30/2016 2:52 PM [facility] ANION GAP 15.1 10.0 - 24.0 MMOL/L 11/30/2016 2:52 PM [facility] OSMOLALITY (CALC) 281 271 - 290 MOSM/KG 11/30/2016 2:52 PM [facility] CALCIUM S/P/B 10.1 8.4 - 10.2 MG/DL 11/30/2016 2:52 PM [facility] BILIRUBIN TOTAL S/P/B 0.6 0.2 - 1.2 MG/DL 11/30/2016 2:52 PM [facility] TOTAL PROTEIN S/P/B 7.4 6.4 - 8.3 G/DL 11/30/2016 2:52 PM [facility] ALBUMIN S/P/B 4.5 3.4 - 4.8 G/DL 11/30/2016 2:52 PM [facility] AST 13 5 - 34 U/L 11/30/2016 2:52 PM CDT [facility] ALT 13 6 - 55 U/L 11/30/2016 2:52 PM CDT [facility] ALKALINE PHOSPHATASE S/P/B 86 30 - 130 U/L 11/30/2016 2:52 PM CDT [facility] BUN CREATININE RATIO 19.0 6.0 - 26.0 11/30/2016 2:52 PM CDT [facility] A/G RATIO 1.6 1.1 - 1.9 RATIO 11/30/2016 2:52 PM CDT [facility] EGFR NON-AFR. AMER. >60 >60 ML/MIN/1.7 3 M2 11/30/2016 2:52 PM CDT [facility] Comment: GFR Reference Range:Kidney Failure - <15mL/min ?Chronic Kidney Disease - <60mL/min ?? Normal Kidney Function - >60mL/min ?? GFR calculation is not recommended forPatients less than 18 years or greater than70 years as per the national Kidney Foundation.If the patient is -[place], multiply results by 1.21 11/30/2016 10:1 1 AM CDT 11/30/2016 1:56 PM CDT us Generic Conversion Md [facility] Final R esult [facility] [address] [place] [address], * (ABNORMAL) CBC W/DIFF AUTOMATED (11/30/2016 10:11 AM CDT) WBC 7.2 4.4 - 11.0 x10'3/uL 11/30/2016 2:09 PM CDT [facility] RBC 4.78 4.50 - 5.10 x10'6/uL 11/30/2016 2:09 PM CDT [facility] HGB 12.9 12.3 - 15.3 G/DL 11/30/2016 2:09 PM CDT [facility] HCT 40.1 35.9 - 44.6 % 11/30/2016 2:09 PM CDT [facility] MCV 83.9 80.0 - 96.0 FL 11/30/2016 2:09 PM CDT [facility] MCH 27.0 25.3 - 30.9 PG 11/30/2016 2:09 PM CDT [facility] MCHC 32.2 31.0 - 34.1 G/DL 11/30/2016 2:09 PM CDT [facility] RDW 14.2 12.4 - 15.1 % 11/30/2016 2:09 PM CDT [facility] PLT 250 151 - 353 x10'3/uL 11/30/2016 2:09 PM CDT [facility] MPV 10.9 9.6 - 12.0 FL 11/30/2016 2:09 PM CDT [facility] SEG NEUTROPHILS 86(H) 42 - 72 % 7 2:28 PM T [facility] BANDS 1 % 11/30/2016 2:28 PM CDT [facility] LYMPHOCYTES 5(L) 15.8 - 45.0 % 11/30/2016 2:28 PM CDT [facility] MONOCYTES 8 5.7 - 12.5 % 11/30/2016 2:28 PM CDT [facility] ABS. NEUTROPHILS TOTAL 6.26(H) 1.40 - 6.00 x10'3/uL 11/30/2016 2:28 PM CDT [facility] ABS. LYMPHOCYTES 0.36(L) 0.80 - 4.70 x10'3/uL 11/30/2016 2:28 PM CDT [facility] PLT MORPH. NORMAL 11/30/2016 2:28 PM CDT [facility] RBC MORPHOLOGY NORMAL 11/30/2016 2:28 PM CDT [facility] WBC MORPHOLOGY NORMAL 11/30/2016 2:28 PM CDT [facility] 11/30/2016 10:1 1 AM CDT 11/30/2016 1:56 PM CDT us Generic Conversion Md [facility] Final R esult [facility] [address] [place] [address], documented in this encounter Visit Diagnoses Diagnosis Type 2 diabetes mellitus without complications (CMS/HCC [facility]/HCC) Type II or unspecified type diabetes mellitus without mention of complication, not stated as uncontrolled documented in this encounter Care Teams Proof Coin Collector Relationship Specialty Start Date End Date Noemi Barnard MD PCP - General INTERNAL MEDICINE 02/22/18 07/03/18 documented as of this encounter
--- OUTSIDE RECORDS SUMMARY | 2024-04-05 00:27 | XMS_ITS | Encounter Summary ---
Author Organization [facility] Address [address] [place] [address]. [place], [place] [address] [place] [address] Care Team Providers Care Paraoptometric Name Role Phone Noemi Barnard MD Primary Care Provider Encounter Details Date Type Department Care Team (Late st Contact Info) Description 02/03/2017 Abstract [facility] [address] [place], [place] [phone] [place] [address] [place], [place] [phone] Social History Tobacco Use Types Packs/Day Years [...] Diagnosis Comments VITAMIN B12 / FOLATE Routine 02/03/2017 8:05 AM CDT LIPID W/CALC LDL Routine 02/03/2017 8:05 AM CDT TSH W/REFLEX Routine 02/03/2017 8:05 AM CDT HEMOGLOBIN, GLYCOSYLATED Routine 02/03/2017 8:05 AM CDT ALBUMIN URINE RANDOM W/CREATININE Routine 02/03/2017 8:05 AM CDT COMPREHENSIVE METABOLIC PANEL Routine 02/03/2017 8:05 AM CDT CBC W/DIFF AUTOMATED Routine 02/03/2017 8:05 AM CDT VITAMIN D, 25 OH Routine 02/03/2017 8:05 AM CDT documented in this encounter Results * VITAMIN D, 25 OH (02/03/2017 8:05 AM CDT) [facility] VITAMIN D 25 HYDROXY S/P/B 31 30 - 100 NG/ML 02/03/2017 8:01 PM CDT [facility] Comment: SUPPLEMENTING WITH VITAMIN D2 MAY RESULT IN FALSELY LOW RESULTS, CLINICAL CORRELATION NEEDED. ?INTERPRETATION ?DEFICIENT ?? <20 ?INSUFFICIENT 20-30 ?SUFFICIENT 30-100POTENTIAL INTOXICATION ??>100 ?? TESTING PERFORMED [facility] [place] [address] 02/03/2017 8:05 AM CDT 02/03/2017 2:30 PM CDT us Generic Conversion Md [facility] Final R esult [facility] [address] [place] [address], * ALBUMIN URINE RANDOM (02/03/2017 8:05 AM CDT) [facility] MICROALBUMIN (U) 0.5 mg/dL 02/04/20 17 3:07 PM CDT [facility] URINE SPECIMEN / Unknown 02/03/2017 8:05 AM CDT 02/03/2017 2:30 PM CDT us Generic Conversion Md BERMUDEZ URINE ORDERABLES Final Result [facility] [address] [place] [address], * LIPID W/CALC LDL (02/03/2017 8:05 AM CDT) CHOLESTEROL 168 <200 MG/DL 02/03/2017 3:07 PM CDT [facility] TRIGLYCERIDES 127 <150 MG/DL 02/03/2017 3:07 PM CDT [facility] HDL 63 >55 MG/DL 02/03/2017 3:07 PM CDT [facility] LDL (CALCULATED) 79.6 <130 MG/L 02/04/20 17 3:07 PM CDT [facility] CHOL/HDL RATIO 2.7 02/03/2017 3:07 PM CDT [facility] Comment: ??INTERPRETATION OF RESULTSNHLBI RECOMMENDED RANGES ? CHOLESTEROL MG/DL ?LDL MG/DL ?DESIRABLE ? <200 ?<130 ?BORDERLINE ? 200-239 ? 130-159 ?HIGH RISK ? >240 ?>160 REFERENCE VALUE FOR HDL CHOLESTEROL ?RISK LEVEL ??MALE MG/DL ? FEMALE MG/DL ? DECREASED ?>45 ?>55 ?AVERAGE ? 45 ? 55 ? INCREASED ?<45 ?<55 02/03/2017 8:05 AM CDT 02/03/2017 2:30 PM CDT us Generic Conversion Md [facility] Final R esterri Performing Organization Address [facility]/ZIP Co de Phone Number [facility] [address] [place] [address], [place] [phone] * TSH W/REFLEX (02/03/2017 8:05 AM CDT) TSH 1.17 0.35 - 4.94 uIU/mL 02/03/2017 3:26 PM CDT [facility] Comment:FREE T4 NOT INDICATE D SERUM OR PLASMA SPECIMEN / Unknown 02/03/2017 8:05 AM CDT 02/03/2017 2:30 PM CDT us Generic Conversion Md [facility] Final R esterri Performing Organization Address [facility] de Phone Number [facility] [address] [place] [address], [place] [phone] * (ABNORMAL) HEMOGLOBIN, GLYCOSYLATED (02/03/2017 8:05 AM CDT) HGB A1C 6.5(H) <5.7 % 02/03/2017 3:20 PM CDT [facility] Comment: INCREASED RISK OF DIABETES<5.7% ?NON-DIABETES5.7-6.4% INCREASED RISK FOR FUTURE DIABETES> OR = 6.5 CONSISTENT WITH DIABETES STANDARDS OF MEDICAL CARE IN DIABETES-2010DIABETES [facility], 33(SUPP 1): S1-S61,2009 WHOLE BLOOD SPECIMEN / Unknown 02/03/2017 8:05 AM CDT 02/03/2017 2:30 PM CDT us Generic Conversion Md [facility] Final R esult [facility] [address] [place] [address], * COMPREHENSIVE METABOLIC PANEL (02/03/2017 8:05 AM CDT) [facility] Signature GLUCOSE 99 83 - 110 MG/DL 02/03/2017 3:07 PM CDT [facility] BUN 12 9.8 - 20.1 MG/DL 02/03/2017 3:07 PM T [facility] CREATININE S/P/B 0.76 0.57 - 1.11 MG/DL 02/03/2017 3:07 PM T [facility] SODIUM S/P/B 144 136 - 145 MMOL/L 02/03/2017 3:07 PM T [facility] POTASSIUM S/P/B 4.4 3.5 - 5.1 MMOL/L 02/03/2017 3:07 PM T [facility] CHLORIDE S/P/B 107 98 - 107 MMOL/L 02/03/2017 3:07 PM T [facility] CO2 28.0 23 - 31 MMOL/L 02/03/2017 3:07 PM [facility] ANION GAP 13.4 10.0 - 24.0 MMOL/L 02/03/2017 3:07 PM [facility] OSMOLALITY (CALC) 287 271 - 290 MOSM/KG 02/03/2017 3:07 PM T [facility] CALCIUM S/P/B 9.9 8.4 - 10.2 MG/DL 02/03/2017 3:07 PM [facility] BILIRUBIN TOTAL S/P/B 0.6 0.2 - 1.2 MG/DL 02/03/2017 3:07 PM T [facility] TOTAL PROTEIN S/P/B 7.0 6.4 - 8.3 G/DL 02/03/2017 3:07 PM CDT [facility] ALBUMIN S/P/B 4.2 3.4 - 4.8 G/DL 02/03/2017 3:07 PM T [facility] AST 17 5 - 34 U/L 02/03/2017 3:07 PM T [facility] ALT 10 6 - 55 U/L 02/03/2017 3:07 PM T [facility] ALKALINE PHOSPHATASE S/P/B 89 30 - 130 U/L 02/03/2017 3:07 PM T [facility] BUN CREATININE RATIO 15.8 6.0 - 26.0 02/03/2017 3:07 PM T [facility] A/G RATIO 1.5 1.1 - 1.9 RATIO 02/03/2017 3:07 PM T [facility] EGFR NON-AFR. AMER. >60 >60 ML/MIN/1.7 3 M2 02/03/2017 3:07 PM T [facility] Comment: GFR Reference Range:Kidney Failure - <15mL/min ?Chronic Kidney Disease - <60mL/min ?? Normal Kidney Function - >60mL/min ?? GFR calculation is not recommended forPatients less than 18 years or greater than70 years as per the national Kidney Foundation.If the patient is -[place]isian, multiply results by 1.21 02/03/2017 8:05 AM CDT 02/03/2017 2:30 PM CDT us Generic Conversion Md [facility] Final R esult [facility] [address] [place] [address], [place] [phone] * CBC W/DIFF AUTOMATED (02/03/2017 8:05 AM CDT) WBC 4.4 4.4 - 11.0 x10'3/uL 02/03/2017 2:37 PM CDT [facility] RBC 4.68 4.50 - 5.10 x10'6/uL 02/03/2017 2:37 PM T [facility] HGB 12.5 12.3 - 15.3 G/DL 02/03/2017 2:37 PM T [facility] HCT 40.3 35.9 - 44.6 % 02/03/2017 2:37 PM CDT [facility] MCV 86.1 80.0 - 96.0 FL 02/03/2017 2:37 PM T [facility] MCH 26.7 25.3 - 30.9 PG 02/03/2017 2:37 PM T [facility] MCHC 31.0 31.0 - 34.1 G/DL 02/03/2017 2:37 PM T [facility] RDW 14.8 12.4 - 15.1 % 02/03/2017 2:37 PM T [facility] PLT 241 151 - 353 x10'3/uL 02/03/2017 2:37 PM T [facility] MPV 10.5 9.6 - 12.0 FL 02/03/2017 2:37 PM T [facility] RBC MORPHOLOGY NORMAL 02/03/2017 2:37 PM T [facility] PLT MORPH. NORMAL 02/03/2017 2:37 PM T [facility] WBC MORPHOLOGY NORMAL 02/03/2017 2:37 PM T [facility] LYMPHOCYTES % 20.7 15.8 - 45.0 % 02/03/2017 2:37 PM T [facility] NEUTROPHILS % 67.6 42.1 - 71.9 % 02/03/2017 2:37 PM CDT [facility] MONOCYTES % 8.1 5.7 - 12.5 % 02/03/2017 2:37 PM CDT [facility] EOSINOPHILS 2.7 0.0 - 5.6 % 02/03/2017 2:37 PM CDT [facility] BASOPHILS 0.7 0.0 - 1.3 % 02/03/2017 2:37 PM CDT [facility] ABS. NEUTROPHILS TOTAL 3.00 1.40 - 6.00 x10'3/uL 02/03/2017 2:37 PM CDT [facility] IMMATURE GRANS % 0.2 0.0 - 0.5 % 02/03/2017 2:37 PM CDT [facility] ABS. LYMPHOCYTES 0.92 0.80 - 4.70 x10'3/uL 02/03/2017 2:37 PM CDT [facility] 02/03/2017 8:05 AM CDT 02/03/2017 2:30 PM CDT us Generic Conversion Md [facility] Final R esult [facility] [address] [place] [address], * VITAMIN B12 / FOLATE (02/03/2017 8:05 AM CDT) VITAMIN B12 S/P/B 275 213 - 816 pg/mL 02/03/2017 3:26 PM CDT [facility] FOLATE 11.03 7.0 - 31.4 ng/mL 02/03/2017 3:26 PM CDT [facility] SERUM OR PLASMA SPECIMEN / Unknown 02/03/2017 8:05 AM CDT 02/03/2017 2:30 PM CDT us Generic Conversion Md [facility] Final R esult [facility] [address] [place] [address], documented in this encounter Visit Diagnoses Diagnosis Type 2 diabetes mellitus without complications (CMS/HCC H[facility]/HCC) Type II or unspecified type diabetes mellitus without mention of complication, not stated as uncontrolled documented in this encounter Care Teams Paraoptometric Relationship Specialty Start Date End Date Noemi Barnard MD PCP - General INTERNAL MEDICINE 02/22/18 07/03/18 documented as of this encounter
--- OUTSIDE RECORDS SUMMARY | 2024-04-05 00:27 | XMS_ITS | Encounter Summary ---
Author Organization [facility] Address [facility] [place] [address] [place] [address] Care Team Providers Care City Driver Name Role Phone Unavailable Primary Care Provider Unavailabl e Encounter Details Date Type Department Care Team (Latest Contact Info) Description 07/29/2016 Abstract [facility] [place] [address] [place] [address] Social History Tobacco Use Types [...] Procedure Name Priority Date/Time Associated Diagnosis Comments LIPID W/CALC LDL Routine 07/29/2016 7:55 AM CDT TSH W/REFLEX Routine 07/29/2016 7:55 AM CDT HEMOGLOBIN, GLYCOSYLATED Routine 07/29/2016 7:55 AM CDT COMPREHENSIVE METABOLIC PANEL Routine 07/29/2016 7:55 AM CDT CBC W/DIFF AUTOMATED Routine 07/29/2016 7:55 AM CDT VITAMIN D, 25 OH Routine 07/29/2016 7:55 AM CDT documented in this encounter Results * TSH W/REFLEX (SNS) (07/29/2016 7:55 AM CDT) TSH 2.88 0.35 - 4.94 uIU/mL [facility] Comment:Result Comment: FREE T4 NOT INDICATED 07/29/2016 7:55 AM CDT 07/29/2016 7:55 AM CDT Narrative [facility] - 07/29/2016 12:26 PM CDT Result Communication: No patient communication needed at this time us Noemi Barnard MD LABORATORY Final Result [facility] * (ABNORMAL) CBC W/DIFF AUTOMATED (07/29/2016 7:55 AM CDT) WBC 3.8(L) 4.4 - 11.0 x10'3/uL [facility] RBC 4.54 4.50 - 5.10 x10'6/uL [facility] HGB 12.5 12.3 - 15.3 G/DL [facility] HCT 38.8 35.9 - 44.6 % [facility] MCV 85.5 80.0 - 96.0 FL [facility] MCH 27.5 25.3 - 30.9 PG [facility] MCHC 32.2 31.0 - 34.1 G/DL [facility] RDW 14.3 12.4 - 15.1 % [facility] PLT 196 151 - 353 x10'3/uL [facility] GLUCOSE 10.3 9.6 - 12.0 FL [facility] CON[facility] BASOPHILS % 0.5 0.0 - 1.3 % [facility] EOSINOPHILS % 2.1 0.0 - 5.6 % [facility] NEUTROPHILS % 63.6 42.1 - 71.9 % [facility] LYMPHOCYTES % 25.1 15.8 - 45.0 % [facility] IMMATURE GRANS % 0.3 0.0 - 0.5 % [facility] ABS. NEUTROPHILS TOTAL 2.43 1.40 - 6.00 x10'3/uL [facility] WBC MORPHOLOGY NORMAL [facility] OUP TO EPIC CONVERSION PLT MORPH. NORMAL [facility] RBC MORPHOLOGY NORMAL [facility]UP TO EPIC CONVERSION MONOCYTES 8.4 5.7 - 12.5 % [facility] ABS. LYMPHOCYTES 0.96 0.80 - 4.70 x10'3/uL [facility] 07/29/2016 7:55 AM CDT 07/29/2016 7:55 AM CDT Narrative [facility] - 07/29/2016 11:38 AM CDT Result Communication: No patient communication needed at this time us Noemi Barnard MD LABORATORY Final Result [facility] * LIPID W/CALC LDL (07/29/2016 7:55 AM CDT) CHOLESTEROL 169 <200 MG/DL [facility] P TO EPIC CONVERSION TRIGLYCERIDES 95 <150 MG/DL [facility] OUP TO EPIC CONVERSION HDL 62 >55 MG/DL [facility] T O EPIC CONVERSION LDL (CALCULATED) 88 <130 MG/L [facility] CHOL/HDL RATIO 2.7 [facility]UP TO EPIC CONVERSION Comment: Result Comment: ? INTERPRETATION OF RESULTS NHLBI RECOMMENDED RANGES ? CHOLESTEROL MG/DL ?LDL MG/DL ?DESIRABLE ? <200 ?<130 ?BORDERLINE ?200-239 ? 130-159 ?HIGH RISK ? >240 ?>160 ?? REFERENCE VALUE FOR HDL CHOLESTEROL ?RISK LEVEL ??MALE MG/DL ? FEMALE MG/DL ?DECREASED ?>45 ?>55 ?AVERAGE ? 45 ? 55 ?INCREASED ?<45 ?<55 07/29/2016 7:55 AM CDT 07/29/2016 7:55 AM CDT Narrative [facility] - 07/29/2016 12:06 PM CDT Result Communication: No patient communication needed at this time Noemi Barnard MD LABORATORY Final Result Performing Organization Address [facility] de Phone Number [facility] * (ABNORMAL) VITAMIN D, 25 OH (07/29/2016 7:55 AM CDT) VITAMIN D 25 HYDROXY S/P/B 28(L) 30 - 100 NG/ML [facility] Comment: Result Comment: ?? SUPPLEMENTING WITH VITAMIN D2 MAY RESULT IN FALSELY LOW RESULTS, CLINICAL ?? CORRELATION NEEDED. ?INTERPRETATION ?DEFICIENT ??<20 ? INSUFFICIENT 20-30 ? SUFFICIENT 30-100 POTENTIAL INTOXICATION ??>100 ? [place] [address] 07/29/2016 7:55 AM CDT 07/29/2016 7:55 AM CDT Narrative [facility] - 07/29/2016 5:09 PM CDT Result Communication: No patient communication needed at this time Noemi Barnard MD LABORATORY Final Result Performing Organization Address [facility] de Phone Number [facility] * (ABNORMAL) COMPREHENSIVE METABOLIC PANEL (07/29/2016 7:55 AM CDT) SODIUM S/P/B 142 136 - 145 MMOL/L [facility] POTASSIUM S/P/B 4.5 3.5 - 5.1 MMOL/L [facility] CHLORIDE S/P/B 107 98 - 107 MMOL/L [facility] CO2 30.0 23 - 31 MMOL/L [facility] ANION GAP 9.5(L) 10.0 - 24.0 MMOL/L [facility] BUN 18 9.8 - 20.1 MG/DL [facility] CREATININE S/P/B 0.87 0.57 - 1.11 MG/DL [facility] TO EPIC [...] [facility] BUN CREATININE RATIO 20.7 6.0 - 26.0 [facility] GLUCOSE 92 83 - 110 MG/DL [facility] OSMOLALITY (CALC) 285 271 - 290 MOSM/KG [facility] CALCIUM S/P/B 9.7 8.4 - 10.2 MG/DL [facility] BILIRUBIN TOTAL S/P/B 0.5 0.2 - 1.2 MG/DL [facility] AST 16 5 - 34 U/L [facility] ALT 10 6 - 55 U/L [facility] ALKALINE PHOSPHATASE S/P/B 69 30 - 130 U/L [facility] TOTAL PROTEIN S/P/B 6.2(L) 6.4 - 8.3 G/DL [facility] ALBUMIN S/P/B 4.1 3.4 - 4.8 G/DL [facility] A/G RATIO 2.0(H) 1.1 - 1.9 RATIO [facility] 07/29/2016 7:55 AM CDT 07/29/2016 7:55 AM CDT Narrative [facility] TO EPIC CONVERSION - 07/29/2016 12:06 PM CDT Result Communication: No patient communication needed at this time us Noemi Barnard MD LABORATORY Final Result [facility] TO EPIC CONVERSION * (ABNORMAL) HEMOGLOBIN, GLYCOSYLATED (07/29/2016 7:55 AM CDT) HGB A1C 6.0(H) <5.7 % [facility] T O EPIC CONVERSION Comment: Result Comment: ?? INCREASED RISK OF DIABETES <5.7% ?NON-DIABETES 5.7-6.4% INCREASED RISK FOR FUTURE DIABETES > OR = 6.5 CONSISTENT WITH DIABETES ?? STANDARDS OF MEDICAL CARE IN DIABETES-2010 DIABETES CARE, 33(SUPP 1): S1-S61,2010 07/29/2016 7:55 AM CDT 07/29/2016 7:55 AM CDT Narrative [facility] TO EPIC CONVERSION - 07/29/2016 12:17 PM CDT Result Communication: No patient communication needed at this time us Noemi Barnard MD LABORATORY Final Result [facility] TO EPIC CONVERSION documented in this encounter Visit Diagnoses Not on filedocumented in this encounter
--- OUTSIDE RECORDS SUMMARY | 2024-04-05 00:27 | XMS_ITS | Encounter Summary ---
Author Organization [facility] Address [address] [place] [address]. [place] [address] [place] [address] Care Team Providers Care Civil Engineering Draftsperson Name Role Phone Unavailable Primary Care Provider Unavailabl e Encounter Details Date Type Department Care Team (Late st Contact Info) Description 02/10/2016 Abstract [facility] Family & Internal Medicine [facility] [id number] [place] [phone] [place] [address] [place] [address] Social History Tobacco Use Types Packs/Day Years Used Date Smoking Tobacco: Never Assessed Comments Unknown Sex and Gender Information Value Date Recorded Sex Assigned at Not on file Legal Sex Female 8:14 PM CDT Gender Identity Not on file Sexual Orientation Not on file documented as of this encounter Last Filed Vital Signs Vital Sign Reading Time Taken Comments Blood Pressure 132/70 02/10/2016 1:44 PM LIBRARY CLERK TALKING BOOKS Pulse 69 02/10/2016 1:44 PM LIBRARY CLERK TALKING BOOKS Temperature - - Respiratory Rate - - Oxygen Saturation - - Inhaled Oxygen Concentration - - Weight 54.9 kg (121 lb) 02/10/2016 1:44 PM LIBRARY CLERK TALKING BOOKS Height - - Body Mass Index 22.13 11/11/2015 4:11 PM CDT documented in this encounter Progress Notes * Noemi Barnard MD - 02/10/2016 1:45 PM CST Reason For Visit Chronic Recheck Visit Chief Complaint Pt is here for follow up on DM, HTN, and hyperlipidemia. History of Present Illness HPI Free Text: Memory not as good as it has been. Does take a lot of sleeping medication to sleep, has struggled with this all her life. Hyperlipidemia (Follow-Up): The patient states her hyperlipidemia [...] medication regimen. She denies medication side effects. Hypothyroidism (Follow-Up): The patient is being seen [...] higher dose, now with some hair loss. Mini Mental Status Exam: Oriented to: date, day, month, year and season Score: 5. Oriented to: country, state, town, hospital/building and floor/street Score: 5. Recalling 3 items. Score: 3. Serial 7's: Count backwards from 100 by 7. Score: 1. Spell WORLD backwards. Score: 5. Recalling previous 3 items. Score: 2. Name 2 simple objects. Score: 2. Repeat the phrase No ifs, ands or buts. . Score: 0. Following 3-stage command. Score: 2. Follows instructions on card and performs function properly. Score: 1. Writes a complete sentence. Score: 1. Copies picture. Score: 1. Total Score: 28. Review of Systems See HPI for pertinent positives. Constitutional: as noted in HPI and fatigue. Head and Face: negative. Eyes: negative. ENT: decreased hearing and right ear plugged and nasal congestion. Cardiovascular: negative. Respiratory: negative. Gastrointestinal: negative. Musculoskeletal: joint stiffness. Integumentary negative. Psychiatric: as noted in HPI and insomnia. Neurological tingling. Active Problems 1. Diabetes mellitus (250.00) (E11.9) 2. Dizziness (780.4) (R42) 3. Hyperlipidemia (272.4) (E78.5) 4. Hypertension (401.9) (I10) 5. Hypothyroidism (244.9) (E03.9) 6. Insomnia (780.52) (G47.00) 7. Neck muscle spasm (728.85) (M62.838) 8. Vitamin d deficiency (268.9) (E55.9) Past Medical [...] Oral Tablet; TAKE 1 TABLET DAILY; Therapy: 83Eut3303 to (Evaluate:02Feb2016) Requested for: 59Lrz1377; Last Rx:[id number] Ordered 2. Enalapril Maleate 20 MG Oral Tablet; TAKE 1 TABLET DAILY DIRECTED; Therapy: 23Jan2014 to (Evaluate:02Feb2016) Requested for: 54Tqy7276; Last Rx:[id number] Ordered 3. Janumet 50-500 MG Oral Tablet; TAKE ONE TABLET BY MOUTH TWICE DAILY WITH MEALS; Therapy: 27Aug2014 to (Evaluate:14Jun2016) Requested for: 61Zoq6108; Last Rx:[id number] Ordered 4. Levothyroxine Sodium 50 MCG Oral Tablet; TAKE 1 TABLET DAILY DIRECTED; Therapy: 30Apr2014 to (Evaluate:37Kqo8240) Requested for: 70Kha6352; Last Rx:[id number] Ordered 5. Melatonin 1 MG Oral Capsule; TAKE 1 CAPSULE AT BEDTIME NEEDED; Therapy: 07Aug2015 to (Evaluate:06Sep2015); Last Rx:70Fcb3085 Ordered 6. OneTouch Ultra Blue In Vitro Strip; 1 Strip 3X/weekly & PRN; Therapy: 23Jan2015 to (Evaluate:22Jul2015); Last Rx:[id number] Ordered 7. Pantoprazole Sodium 40 MG Oral Tablet Delayed Release; TAKE 1 TABLET BY MOUTH EVERY DAY; Therapy: 16Jan2014 to (Evaluate:14Jun2016) Requested for: 53Pwq0136; Last Rx:[id number] Ordered 8. Pravastatin Sodium 40 MG Oral Tablet; TAKE ONE TABLET BY MOUTH AT BEDTIME; Therapy: 30Apr2014 to (Evaluate:03Feb2016) Requested for: 21Jau6693; Last Rx:[id number] Ordered 9. TiZANidine HCl - 2 MG Oral Tablet; 1- 2 po HS PRN neck pain; Therapy: 64Ced3775 to (Evaluate:09Feb2016) Requested for: 95Rup4525; Last Rx:63Ztt3954 Ordered Allergies 1. No Known Drug Allergies Vitals Recorded: 10Feb2016 01:44PM Heart Rate 69 Respiration 16 Systolic 132 Diastolic 70 O2 Saturation 96 Weight 121 lb BMI Calculated 22.13 BSA Calculated 1.54 Physical Exam Constitutional General appearance: No acute [...] remote memory: Intact. Mood and affect: Normal. Procedure Procedure: cerumen removal. Indication: cerumen impaction in both ears. Prep: hydrogen peroxide was placed in the canal prior to the procedure. Procedure Note: The procedure was performed by the Provider. A ototoscope was placed in the ear canal(s) to visualize the ear canal debris. The ear was cleaned by using warm water irrigation and a curette. Post-Procedure: Patient Status: the patient tolerated the procedure well. Complications: there were no complications. Patient instructions: avoid using q-tips. Follow-up as needed. Assessment 1. Hypertension (401.9) (I10) 2. Hyperlipidemia (272.4) (E78.5) 3. Diabetes mellitus (250.00) (E11.9) 4. Hypothyroidism (244.9) (E03.9) 5. Impacted cerumen of right ear (380.4) (H61.21) 6. Insomnia (780.52) (G47.00) Plan Diabetes mellitus 1. CBC W Differential; Status:Active; Requested for:22Jul2016; Perform:. [facility]; Due:20Ufp8398;Ordered; For:Diabetes mellitus; Ordered By:Noemi Barnard; 2. Compr Metabolic Prof ( CMP ); Status:Active; Requested for:22Jul2016; Perform:. [facility]; Due:93Jps8804;Ordered; For:Diabetes mellitus; Ordered By:Noemi Barnard; 3. Hemoglobin A1C ( HA1C ); Status:Active; Requested for:22Jul2016; Perform:. [facility]; Due:77Bfz5873;Ordered; For:Diabetes mellitus; Ordered By:Noemi Barnard; 4. Lipid W/ Calculated LDL; Status:Active; Requested for:22Jul2016; Perform:. [facility]; Due:99Obk4981;Ordered; For:Diabetes mellitus; Ordered By:Noemi Barnard; Hypertension 5. Follow-up visit in 6 months Outpatient Follow-up Status: Complete Done: 10Feb2016 Ordered; For: Hypertension; Ordered By: Noemi Barnard Performed: Due: 24Feb2016; Last Updated By:Robe Galvez; 02/10/2016 2:52:52 PM Hypothyroidism 6. Levothyroxine Sodium 75 MCG Oral Tablet; TAKE 1 TABLET EVERY OTHER DAY Rx By: Noemi Barnard; Dispense: 90 Days ; #:36 Tablet; Refill: 1; For: Hypothyroidism; HI = N; Verified Transmission to [facility] [id number]; Msg to Pharmacy: TAKE 1 PO M, W & FR; Last Updated By: [employer]; 02/10/2016 2:21:21 PM 7. TSH W Reflex Free T4; Status:Active; Requested for:22Jul2016; Perform:[facility]; Due:21Aug2016;Ordered; For:Hypothyroidism; Ordered By:Noemi Barnard; Impacted cerumen of right ear 8. *Ear lavage (removal with instrument) In Office; Status:Complete; Done: 10Feb2016 Perform:In Office; Due:20Feb2016; Last Updated By:Bianca Larson; 02/10/2016 3:15:41 PM;Ordered; For:Impacted cerumen of right ear; Ordered By:Noemi Barnard; PMH: History of constipation, Insomnia 9. Levothyroxine Sodium 50 MCG Oral Tablet; TAKE 1 TABLET EVERY OTHER DAY Rx By: Noemi Barnard; Dispense: 90 Days ; #:50 Tablet; Refill: 1; For: PMH: History of constipation, Insomnia; HI = N; Verified Transmission to [facility] 89294; Msg to Pharmacy: TAKE EDY, MARY BETH, SAT & SUN; Last Updated By: [employer]; 02/10/2016 2:21:21 PM Vitamin d deficiency 10. Vitamin D 25 - Hydroxy; Status:Active; Requested for:22Jul2016; Perform:[facility]; Due:21Aug2016;Ordered; For:Vitamin d deficiency; Ordered By:Noemi Barnard; Signatures Electronically signed by : Noemi Barnard M.D.; Feb 10 2016 6:00PM LIBRARY CLERK TALKING BOOKS (Author) documented in this encounter Plan of Treatment Not on file documented as of this encounter Visit Diagnoses Not on filedocumented in this encounter
--- OUTSIDE RECORDS SUMMARY | 2024-04-05 00:27 | XMS_ITS | Encounter Summary ---
Author Organization [facility] Address [address] [place] [address]. [place], [place] [id number] [place] [address] Care Team Providers Care Hoist Worker Name Role Phone Unavailable Primary Care Provider Unavailabl e Encounter Details Date Type Department Care Team (Latest Contact Info) Description 12/04/2016 Abstract [facility] Medical Group [...] Notes * Rhianna Castaneda Md, MD - 12/04/2016 12:54 PM CDT Message Recorded as Task Date: 12/04/2016 12:54 PM, Created By: Noemi Jade Task Name: Call Patient with results Assigned To: Noemi Jade Regarding Patient: Roxana Ritchie, Status: Active Comment: Noemi Jade - 04 Dec 2016 12:54 PM Patient study shows that she has a stool impaction, recommend fleets enema, would benefit from regular fiber & a stool softtener. can repeat fleets 3 times a day until resuts or go to the ER if worse. Sharonda Whiting - 04 Dec 2016 3:22 PM TASK EDITED pt informed and vocalized understanding. Signatures Electronically signed by : Sharonda Whiting MA; Dec 04 2016 3:23PM PLASTIC WELDER (Author) * Noemi Jade MD - 12/04/2016 12:54 PM CDT Message can repeat fleets 3 times a day until resuts or go to the ER if worse. Verified Results CT ABDOMEN PELVIS W [id number] 03:35PM Noemi Jade Test Name Result Flag Reference CT ABDOMEN PELVIS W (Report) ROXANA RITCHIE ADMIT/SERVICE DATE: 12/03/16 ACCT: [id number] DISCHARGE DATE: : 1935 SEX: F ORD SITE: [facility] PT TYPE: REG CLI ORDERING MD: NOEMI JADE MD STUDY DATE REPORT # ORDER # EXT ORDER ID 12/03/16 [id number] PROC CODE: [id number] PROCEDURE DESCRIPTION: CT ABDOMEN PELVIS W IMAGING STUDIES: CT ABDOMEN PELVIS W DATE: 12/03/2016 11:24 AM CLINICAL HISTORY: OTHER - CT, R10.32 . LEFT LOWER QUADRANT PAIN FOR ONE MONTH. APPENDECTOMY. CHOLECYSTECTOMY. HISTORY OF SEVERE DIVERTICULITIS. CONCLUSION: 1. ROUTINE CT OF THE ABDOMEN AND PELVIS WITH CONTRAST. COMPARISON 02/06/2015. IV ADMINISTRATION OF 75 CC'S OF ISOVUE 370. . RADIATION DOSE REDUCTION TECHNIQUE WAS UTILIZED. 2. POSSIBLE MUCOSAL THICKENING AT THE JUNCTION OF THE ANUS AND RECTUM. PLEASE ASSESS FOR ANY UNDERLYING LESION WITH COLONOSCOPY. THERE IS MODERATE SIZE FECAL IMPACTION IN THE RECTUM MEASURING 9.4 CM IN GREATEST DIMENSION. MODERATELY LARGE AMOUNT OF STOOL IN THE COLON WITHOUT GROSS OBSTRUCTION. NUMEROUS COLONIC DIVERTICULI MOST PROMINENT IN THE SIGMOID COLON WITHOUT DIVERTICULITIS. 3. MILD FATTY INFILTRATION OF THE LIVER WITHOUT MASS. ALL OTHER VISUALIZED VISCERAL STRUCTURES ARE WITHIN NORMAL LIMITS. NO FREE FLUID OR FREE AIR.. NO RENAL CALCULI OR HYDRONEPHROSIS. CHOLECYSTECTOMY. APPENDECTOMY. HYSTERECTOMY. 4. NORMAL APPEARANCE TO STOMACH AND SMALL BOWEL..ATHEROSCLEROTIC NORMAL-SIZED AORTA. NO PATHOLOGIC LYMPHADENOPATHY. 5. LUNG BASES WITH MILD SCAR. NO INFILTRATE.. DEGENERATIVE CHANGE IN LUMBAR SPINE. STABLE 80% MID BODY COMPRESSION DEFORMITY OF L1 WITH MINIMAL RETROPULSION. ELECTRONICALLY SIGNED BY Maren CULLEN MD ON 12/03/2016 3:45 PM documented in this encounter Plan of Treatment Not on file documented as of this encounter Visit Diagnoses Not on filedocumented in this encounter
--- OUTSIDE RECORDS SUMMARY | 2024-04-05 00:27 | XMS_ITS | Encounter Summary ---
Author Organization [facility] Address [facility] [facility] [place] [address] [place] [address] Care Team Providers Care Engraver Seals Name Role Phone Unavailable Primary Care Provider Unavailabl e Encounter Details Date Type Department Care Team (Latest Contact Info) Description 01/30/2016 Abstract [facility] [place] [address] [place] [address] Social History Tobacco Use Types [...] Date/Time Associated Diagnosis Comments TSH W/REFLEX Routine 01/30/2016 9:02 AM CDT documented in this encounter Results * TSH W/REFLEX (SNS) (01/30/2016 9:02 AM CDT) TSH 1.96 0.35 - 4.94 uIU/mL [facility] TO [facility] CONVERSION Comment:Result Comment: FREE T4 NOT INDICATED 01/30/2016 9:02 AM CDT 01/30/2016 9:02 AM CDT Narrative [facility] TO [facility] CONVERSION - 01/30/2016 10:07 AM CDT Result Communication: No patient communication needed at this time Noemi Barnard MD LABORATORY Final Result [facility] TO [facility] CONVERSION documented in this encounter Visit Diagnoses Not on filedocumented in this encounter
--- OUTSIDE RECORDS SUMMARY | 2024-04-05 00:27 | XMS_ITS | Encounter Summary ---
Author Organization [facility] Address [address] [place] [address]. [place] [address] [place] [address] Care Team Providers Care Programming Engineer Name Role Phone Unavailable Primary Care Provider Unavailabl e Encounter Details Date Type Department Care Team (Late st Contact Info) Description 11/17/2016 Abstract [facility] Medical Group Family & Internal Medicine [address] [phone] Bhavna Jacobson APNP Social History Tobacco Use Types Packs/Day Years Used Date Smoking Tobacco: Never Assessed Comments Unknown Sex and Gender Information Value Date Recorded Sex Assigned at Not on file Legal Sex Female 8:14 PM CDT Gender Identity Not on file Sexual Orientation Not on file documented as of this encounter Last Filed Vital Signs Vital Sign Reading Time Taken Comments Blood Pressure 124/54 11/17/2016 10:58 AM CDT Pulse 58 11/17/2016 10:58 AM CDT Temperature - - Respiratory Rate - - Oxygen Saturation - - Inhaled Oxygen Concentration - - Weight 56.9 kg (125 lb 8 oz) 11/17/2016 10:58 AM CDT Height 157.5 cm (5' 2 ) 11/17/2016 10:58 AM CDT Body Mass Index 22.95 11/17/2016 10:58 AM CDT documented in this encounter Progress Notes * BAILEY Kaur - 11/17/2016 10:40 AM CDT Reason For Visit Reason For Visit: Acute Visit Chief Complaint Pt reports with c/o rash to her body (arms, legs, and chest) since Wednesday reports it itches. Pt states she has not made any recent changes to laundry detergents, lotions, hygiene products, or medications. History of Present Illness Rash (Brief): The patient is being seen for an initial evaluation of this episode of a rash. Symptoms: pruritus The patient presents with complaints of gradual onset of constant episodes of moderate bilateral arm and bilateral leg widespread rash. Episodes started about 5 days ago. She is currently experiencing widespread rash. Her symptoms are caused by no known event. Symptoms are unchanged. Previous Evaluation: Pt is unaware of any contact and denies any changes in routine. Symptom Cluster Details: she reports the symptoms are unchanged. Current Treatment: she is currently not being treated for this problem. Review of Systems See HPI for pertinent positives. Constitutional: Normal. ENT: normal. Cardiovascular: Normal. Respiratory: Normal. Gastrointestinal: Normal. Genitourinary: Normal. Integumentary: skin rash. Musculoskeletal: Normal. Neurological: Normal. Psychiatric: Normal. Active Problems 1. Atrophic vaginitis (627.3) (N95.2) 2. Claudication (443.9) (I73.9) 3. Diabetes mellitus (250.00) (E11.9) 4. Dizziness (780.4) (R42) 5. 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 Hyperlipidemia (272.4) (E78.5) 7. Hypertension (401.9) (I10) 8. Hypothyroidism (244.9) (E03.9) 9. Impacted cerumen of right ear (380.4) (H61.21) 10. Insomnia (780.52) (G47.00) 11. Lumbago (724.2) (M54.5) 12. Neck muscle spasm (728.85) (M62.838) 13. Urinary frequency (788.41) (R35.0) 14. Vitamin d deficiency (268.9) (E55.9) Past Medical [...] No alcohol use Immunizations Influenza --- Series1: 91Ytv2419; Series2: 82Ewm7095 Current Meds 1. AmLODIPine Besylate 5 MG Oral Tablet; TAKE 1 TABLET BY MOUTH DAILY; Therapy: 64Jnx6698 to (Evaluate:24Feb2017) Requested for: 28Aug2016; Last Rx:28Aug2016 Ordered Rx By: Noemi Barnard; Dispense: 90 Days ; #:90 TAB; Refill: 1; For: Hypertension; HI = N; Verified Transmission to [facility]; Last Updated By: [employer]; 08/28/2016 12:25:38 PM 2. Enalapril Maleate 20 MG Oral Tablet; TAKE 1 TABLET BY MOUTH DAILY DIRECTED; Therapy: 23Jan2014 to (Evaluate:93Abk4368) Requested for: 01Sep2016; Last Rx:01Sep2016 Ordered Rx By: Noemi Barnard; Dispense: 90 Days ; #:90 TAB; Refill: 0; For: Hypertension; HI = N; Verified Transmission to [facility]; Last Updated By: [employer]; 09/01/2016 10:06:52 AM 3. Janumet 50-500 MG Oral Tablet; TAKE ONE TABLET BY MOUTH TWICE DAILY WITH MEALS; Therapy: 95Ixw3964 to (Evaluate:10Evu5630) Requested for: 24Sep2016; Last Rx:24Sep2016 Ordered Rx By: Noemi Barnard; Dispense: 90 Days ; #:180 TAB; Refill: 0; For: Diabetes mellitus; HI = N; Verified Transmission to [facility] [address]56; Last Updated By: Ana Laura FelderSynta Pharmaceuticals; 09/24/20165:42:31 PM 4. Levothyroxine Sodium 50 MCG Oral Tablet; TAKE 1 TABLET EVERY SAT & SUN; Therapy: 30Apr2014 to (Evaluate:06Feb2017) Requested for: 10Aug2016; Last Rx:10Aug2016 Ordered Rx By: Noemi Barnard; Dispense: 90 Days ; #:24 Tablet; Refill: 1; For: PMH: History of constipation, Insomnia; HI = N; Verified Transmission to [facility] [address]658; Msg to Pharmacy: TAKE SAT & SUN; Last Updated By: Rosalba Felder; 08/10/2016 2:51:49 PM 5. Levothyroxine Sodium 75 MCG Oral Tablet; TAKE 1 TABLET EVERY OTHER DAY; Therapy: 10Feb2016 to (Evaluate:05Aug2017) Requested for: 10Aug2016; Last Rx:10Aug2016 Ordered Rx By: Noemi Barnard; Dispense: 90 Days ; #:66 Tablet; Refill: 3; For: Hypothyroidism; HI = N; Verified Transmission to [facility] [address]97[address]; Msg to Pharmacy: TAKE 1 PO WED - WED (50 mcg S & S); Last Updated By: Rosalba Felder; 08/10/2016 2:51:48 PM 6. Melatonin 10 MG Oral Capsule; TAKE 1 PO AT HS; Therapy: 07Aug2015 to (Evaluate:09Sep2016) Recorded Rx By: Noemi Barnard; Dispense: 0 Days ; #: Sufficient Capsule; Refill: 0; For: Insomnia; HI = N; Record 7. Meloxicam 15 MG Oral Tablet; Take 1 tablet daily; Therapy: 10Aug2016 to (Evaluate:06Feb2017) Requested for: 10Aug2016; Last Rx:10Aug2016 Ordered Rx By: Noemi Barnard; Dispense: 30 Days ; #:30 Tablet; Refill: 5; For: Lumbago; HI = N; VerifiedTransmission to [facility] 02122; Last Updated By: Blane FelderScripts; 08/10/2016 2:51:49 PM 8. OneTouch Ultra Blue In Vitro Strip; 1 Strip 3X/weekly & PRN; Therapy: 23Jan2015 to (Evaluate:22Jul2015); Last Rx:23Jan2015 Ordered Rx By: Michael Barnard; Dispense: 90 Days ; #:270 Strip; Refill: 1; For: Diabetes mellitus; HI= N; Record; Last Updated By: Le Rea; 01/23/2015 11:18:22 AM 9. Pantoprazole Sodium 40 MG Oral Tablet Delayed Release; TAKE 1 TABLET BY MOUTH EVERY DAY; Therapy: 16Jan2014 to (Evaluate:42Vjc5217) Requested for: 14Sep2016; Last Rx:14Sep2016 Ordered Rx By: Noemi Barnard; Dispense: 90 Days ; #:90 TAB; Refill: 1; For: Neck muscle spasm; HI = N; Verified Transmission to [facility] [address]; Last Updated By: [employer]; 09/14/2016 5:03:36 PM 10. Pravastatin Sodium 40 MG Oral Tablet; TAKE 1 TABLET AT BEDTIME; Therapy: 30Apr2014 to (Evaluate:10Feb2017) Requested for: 14Aug2016; Last Rx:14Aug2016 Ordered Rx By: Noemi Barnard; Dispense: 90 Days ; #:90 Tablet; Refill: 1; For: Hyperlipidemia; HI = N; Verified Transmission to [facility] [address]; Last Updated By: [employer]; 08/14/2016 6:48:10 PM 11. TiZANidine HCl - 2 MG Oral Tablet; 1- 2 po HS PRN neck pain; Therapy: 11Nov2015 to (Evaluate:09Feb2016) Requested for: 98Tol1271; Last Rx:85Ltb5503 Ordered Rx By: Noemi Barnard; Dispense: 30 Days ; #:30 Tablet; Refill: 2; For: Neck muscle spasm; HI = N; Verified Transmission to [facility] [address]89[address]; Last Updated By: [employer]; 11/11/2015 5:09:05 PM Allergies 1. No Known Drug Allergies Recorded By: Bianca Larson; 12/25/2014 3:42:07 PM Vitals Recorded: 22Ewi2988 10:58AM Temperature 98.2 F Heart Rate 58 Respiration 18 Systolic 124 Diastolic 54 O2 Saturation 96 Height 5 ft 2 in Weight 125 lb 8 oz BMI Calculated 22.95 BSA Calculated 1.57 Physical Exam Constitutional General appearance: No acute distress, well appearing and well nourished. Pulmonary Respiratory effort: No increased work of breathing or signs of respiratory distress. Auscultation of lungs: Clear to auscultation. Cardiovascular Auscultation of heart: Normal rate and rhythm, normal S1 and S2, without murmurs. Abdomen Abdomen: Non-tender, no masses. Lymphatic Palpation of lymph nodes in neck: No lymphadenopathy. Musculoskeletal Gait and station: Normal. Skin Examination of the skin for lesions: Abnormal. [place] macule(s). Described as purpuric/petechial. Neurologic Cranial nerves: Cranial nerves 2-12 intact. Psychiatric Orientation to person, place, and time: Normal. Mood and affect: Normal. Assessment 1. Contact dermatitis (692.9) (L25.9) Plan Contact dermatitis, PMH: History of urinary tract infection 1. Clotrimazole-Betamethasone 1-0.05 % External Cream; APPLY AND RUB IN A THIN FILM TO AFFECTED AREAS TWICE DAILY.(AM AND PM) Rx By: Bhavna Jacobson; Dispense: 0 Days ; #:1 X 45 GM Tube; Refill: 1; For: Contact dermatitis, PMH: History of urinary tract infection; HI = N; Verified Transmission to [facility] 66794;Last Updated By: [employer]; 11/17/2016 11:17:03 AM 2. Loratadine 10 MG Oral Tablet; TAKE 1 TABLET DAILY NEEDED Rx By: Bhavna Jacobson; Dispense: 14 Days ; #:14 Tablet; Refill: 0; For: Contact dermatitis, PMH: History of urinary tract infection; HI = N; Verified Transmission to [facility] 00412; Last Updated By: [employer]; 11/17/2016 11:17:05 AM 3. RaNITidine HCl - 150 MG Oral Tablet; TAKE 1 TABLET TWICE DAILY Rx By: Bhavna Jacobson; Dispense: 14 Days ; #:28 Tablet; Refill: 0; For: Contact dermatitis, PMH: History of urinary tract infection; HI = N; Verified Transmission to [facility] 18073; Last Updated By: Rosalba Felder; 11/17/2016 11:17:04 AM Dyshidrotic eczema 4. MethylPREDNISolone Acetate 40 MG/ML Injection Suspension Rx By: Bhavna Jacobson; For: Dyshidrotic eczema; Dose of 1 ML; Intramuscular; HI = N; Administeredby: Karie Perales: 11/17/2016 11:22:00 AM; Last Updated By: Karie Perales; 11/17/2016 11:24:05 AM Discussion/Summary Contact Dermatitis- Discussed H1H2 therapy and given IM Depo Medrol in office. Discussed use of topical cream for increased pruritis. FU PRN Signatures Electronically signed by : Bhavna Jacobson NP; Nov 17 2016 12:59PM MARKETING AGENT (Author) documented in this encounter Plan of Treatment Not on file documented as of this encounter Visit Diagnoses Not on filedocumented in this encounter
--- OUTSIDE RECORDS SUMMARY | 2024-04-05 00:27 | XMS_ITS | Encounter Summary ---
Author Organization [facility] Address [address] [place] [address] [place] [address] Care Team Providers Care Motel Front Desk Clerk Name Role Phone Unavailable Primary Care Provider Unavailabl e Encounter Details Date Type Department Care Team (Latest Contact Info) Description 08/14/2016 Abstract [facility] , Generic Leonel, Social History Tobacco Use Types Packs/Day Years Used Date Smoking Tobacco: Never Assessed Comments Unknown Sex and Gender Information Value Date Recorded Sex Assigned at Not on file Legal Sex Female 8:14 PM CDT Gender Identity Not on file Sexual Orientation Not on file documented as of this encounter Progress Notes * Noemi Jade MD - 08/14/2016 6:31 PM CDT Message pt called and she was advised circulation in her legs is normal. She verbalized understanding. Verified Results US ART DOPPLER W/O EXER BI/ TRUDY [id number] 02:57PM Noemi Jade Test Name Result Flag Reference US ART DOPPLER W/O EXER BI/TRUDY (Report) ROXANA RITCHIE ADMIT/SERVICE DATE: 08/14/16 ACCT: [id number] DISCHARGE DATE: : 1935 SEX: F ORD SITE: [facility] PT TYPE: REG CLI ORDERING MD: NOEMI JADE MD STUDY DATE REPORT # ORDER # EXT ORDER ID 08/14/16 [id number] PROC CODE: [id number] PROCEDURE DESCRIPTION: US ART DOPPLER WO EXER BI TRUDY IMAGING STUDIES: US ART DOPPLER WO EXER BI TRUDY EXAM DATE: 08/14/2016 12:33 PM COMPARISON STUDIES: NO PREVIOUS AVAILABLE. CLINICAL HISTORY: OTHER - US, I73.9 . DIABETES, HYPERLIPIDEMIA, HYPERTENSION FINDINGS: MULTIPHASIC WAVEFORMS PRESENT BILATERALLY SYSTOLIC BLOOD PRESSURE (MM[facility]) SITE RIGHT LEFT BRACHIAL 148 150 PT 161 157 DP 158 158 TRUDY PT 1.07 1.05 TRUDY DP 1.05 1.05 TBI 0.91 1.0 IMPRESSION: NORMAL ABIS. THE SCREENER OPERATOR OF THIS REPORT IN ITS ENTIRETY IS A PRODUCT OF VOICE RECOGNITION SOFTWARE. ELECTRONICALLY SIGNED BY OLESYA PIERCE MD documented in this encounter Plan of Treatment Not on file documented as of this encounter Visit Diagnoses Not on filedocumented in this encounter
--- OUTSIDE RECORDS SUMMARY | 2024-04-05 00:27 | XMS_ITS | Encounter Summary ---
Author Organization [facility] Address [address] [place] [address]. [place], [place] [id number] [place] [address] Care Team Providers Care Wax Cutter Name Role Phone Noemi Barnard MD Primary Care Provider [phone] Encounter Details Date Type Department Care Team (Late st Contact Info) Description 11/11/2017 Abstract [facility] [address] [place], [place] [id number] [place] [address] [place], [place] [id number] Social History Tobacco Use Types Packs/Day Years [...] this encounter Visit Diagnoses Diagnosis Encounter for screening mammogram for malignant neoplasm of breast Other screening mammogram documented in this encounter Care Teams Wax Cutter Relationship Specialty Start Date End Date Noemi Barnard MD PCP - General INTERNAL MEDICINE 02/22/18 07/03/18 documented as of this encounter
--- OUTSIDE RECORDS SUMMARY | 2024-04-05 00:27 | XMS_ITS | Encounter Summary ---
Author Organization [facility] Address [address] [place] [address]. [place], [place] [address] [place] [address] Care Team Providers Care Cardiovascular Operating Room Nurse Name Role Phone Unavailable Primary Care Provider Unavailabl e Encounter Details Date Type Department Care Team (Latest Contact Info) Description 04/13/2017 Abstract [facility] Medical [facility] Social History Tobacco Use [...]
--- OUTSIDE RECORDS SUMMARY | 2024-04-05 00:27 | XMS_ITS | Encounter Summary ---
Author Organization [facility] Address [address] [place] [address]. [place], [place] [address] [place] [address] Care Team Providers Care Shipyard Painter Name Role Phone Noemi Barnard MD Primary Care Provider [phone] Encounter Details Date Type Department Care Team (Late st Contact Info) Description 02/20/2016 Abstract [facility] [address] [place], [place] [id number] [place] [address] [place], [place] [id number] Social History Tobacco Use Types Packs/Day Years [...] as of this encounter Visit Diagnoses Diagnosis Persons encountering health services in other specified circumstances documented in this encounter Care Teams Shipyard Painter Relationship Specialty Start Date End Date Noemi Barnard MD PCP - General INTERNAL MEDICINE 02/22/18 07/03/18 documented as of this encounter
--- OUTSIDE RECORDS SUMMARY | 2024-04-05 00:27 | XMS_ITS | Encounter Summary ---
Author Organization [facility] Address [address] [place] [address]. [place], [place] [address] [place] [address] Care Team Providers Care Odd Jobs Day Worker Name Role Phone Noemi Barnard MD Primary Care Provider [phone] Encounter Details Date Type Department Care Team (Late st Contact Info) Description 07/02/2016 Abstract [facility] [address] [place] [address] Martha Ruiz, MIKE Social History Tobacco Use [...] specified documented in this encounter Care Teams Odd Jobs Day Worker Relationship Specialty Start Date End Date Noemi Barnard MD PCP - General INTERNAL MEDICINE 02/22/18 07/03/18 documented as of this encounter
--- OUTSIDE RECORDS SUMMARY | 2024-04-05 00:27 | XMS_ITS | Encounter Summary ---
Author Organization [facility] Address [address] [place] [address]. [place] [address] [place] [address] Care Team Providers Care Manufacturing Worker Name Role Phone Unavailable Primary Care Provider Unavailabl e Encounter Details Date Type Department Care Team (Late st Contact Info) Description 11/08/2017 Abstract [facility] Medical Group Family & Internal Medicine [facility] [address] [place] [address] [place] [address] [place] [address] Social History Tobacco Use Types Packs/Day Years Used Date Smoking Tobacco: Never Assessed Comments Unknown Sex and Gender Information Value Date Recorded Sex Assigned at Not on file Legal Sex Female 8:14 PM CDT Gender Identity Not on file Sexual Orientation Not on file documented as of this encounter Last Filed Vital Signs Vital Sign Reading Time Taken Comments Blood Pressure 128/68 11/08/2017 1:45 PM CDT Pulse 64 11/08/2017 1:45 PM CDT Temperature - - Respiratory Rate - - Oxygen Saturation - - Inhaled Oxygen Concentration - - Weight 62.2 kg (137 lb 2.1 oz) 11/08/2017 1:45 P M CDT Height 157.5 cm (5' 2 ) 11/08/2017 1:45 PM CDT Body Mass Index 25.08 11/08/2017 1:45 PM CDT documented in this encounter Progress Notes * Noemi Barnard MD - 11/08/2017 1:40 PM CDT Reason For Visit Acute Follow-Up Visit Chief Complaint Pt is here for a f/u today, needs medications refilled. Pt also c/o ear issues, and would like to have a MAMMO order in place. History of Present Illness HPI Free Text: Has a soreness in the L side of her throat that has been there & doesn't seem to go away, the other side has no discomfort. She has tried gargles, mouth wash and nothing seems to make it go away. PHQ-2 Depression Questionnaire: Over the past 2 weeks, how often have you been bothered by the following problems? 1.) Little interest or pleasure in doing things? Not at all. 2.) Feeling down, depressed or hopeless? Not at all. TOTAL SCORE: 0. Negative Screening Fall Risk Assessment: Falls: Patient reports no falls in past year.. Diabetes Type II (Follow-Up): The patient states she has been stable with her Type II Diabetes control since the last visit. Comorbid Illnesses: hypertension, hyperlipidemia and obesity. Disease Course and Complications:. there have been no previous episodes of diabetic ketoacidosis. .there have been no previous hospitalizations.. She has no significant interval events. Symptoms: The patient is currently asymptomatic. Home monitoring: The patient checks her blood sugar sporadically. the patient reports no symptomatic hypoglycemic episodes.. Medications: the patient is adherent with her medication regimen. She denies medication side effects.. Gastroesophageal Reflux Disease (Brief): The patient is being seen for worsening symptoms of gastroesophageal reflux disease. Symptoms: heartburn and acid regurgitation. The patient is currently experiencing symptoms. The pain is located in the epigastrium. There is no radiation. The patient describes the pain as burning. Onset was sudden. The symptoms occur intermittently. She describes this as mild and worsening. Exacerbating factors: lying down after meals. Relieving factors: antacids and B2ipswdgca. No associated symptoms are reported. The patient is not currently being treated for this problem. Pertinent medical history: None. She was previously evaluated Per GI. Review of Systems See HPI for pertinent positives. Constitutional: as noted in HPI and fatigue. Head and Face: negative. Eyes: negative. ENT: soreness on the L side of her throat, but as noted in HPI. Cardiovascular: negative. Respiratory: negative. Gastrointestinal: heartburn. Musculoskeletal: joint stiffness. The patient presents with complaints of rash (Will be seeing manufacturers representative).. Psychiatric: as noted in HPI and insomnia. Neurological tingling. Active Problems 1. Abdominal pain, chronic, left lower quadrant (789.04,338.29) (R10.32,G89.29) 2. Claudication (443.9) (I73.9) 3. Colitis (558.9) (K52.9) 4. Diabetes mellitus (250.00) (E11.9) 5. Diarrhea (787.91) (R19.7) 6. 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 GERD (gastroesophageal reflux disease) (530.81) (K21.9) 8. Hyperlipidemia (272.4) (E78.5) 9. Hypertension (401.9) (I10) 10. Hypothyroidism (244.9) (E03.9) 11. Insomnia (780.52) (G47.00) 12. Lumbago (724.2) (M54.5) 13. Rash (782.1) (R21) 14. Vitamin D deficiency (268.9) (E55.9) Past [...] TABLET BY MOUTH DAILY; Therapy: 06Mar2015 to (Evaluate:43Mei6557) Requested for: 06Ale6527; Last Rx:[id number] Ordered 2. Enalapril Maleate 20 MG Oral Tablet; TAKE 1 TABLET BY MOUTH DAILY DIRECTED; Therapy: 23Jan2014 to (Evaluate:27Oey3740) Requested for: 47Jtk2044; Last Rx:[id number] Ordered 3. HydrOXYzine HCl - 25 MG Oral Tablet; TAKE 1 TABLET AT BEDTIME NEEDED; Therapy: 30Nov2016 to (Evaluate:28Feb2017) Requested for: 85Xzz6124; Last Rx:[id number] Ordered 4. Levothyroxine Sodium 50 MCG Oral Tablet; TAKE 1 TABLET BY MOUTH EVERY WEDNESDAY AND WEDNESDAY; Therapy: 30Apr2014 to (Evaluate:82Xlb4995) Requested for: 36Skq6630; Last Rx:[id number] Ordered 5. Levothyroxine Sodium 75 MCG Oral Tablet; TAKE ONE TABLET BY MOUTH DAILY ON WEDNESDAY THROUGH WEDNESDAY AND 50MCG TABLET ON WEDNESDAY AND WEDNESDAY; Therapy: 10Feb2016 to (Evaluate:23Jan2018) Requested for: 48Ics3751; Last Rx:[id number] Ordered 6. Melatonin 10 MG Oral Capsule; TAKE 1 PO AT HS; Therapy: 07Aug2015 to (Evaluate:09Sep2016) Recorded 7. MetFORMIN HCl ER 500 MG Oral Tablet Extended Release 24 Hour; TAKE 1 TABLET BY MOUTH TWICE A DAY; Therapy: 15Feb2017 to (Evaluate:13Nov2017) Requested for: 35Oid3850; Last Rx:[id number] Ordered 8. OneTouch Ultra Blue In Vitro Strip; 1 Strip 3X/weekly & PRN; Therapy: 23Jan2015 to (Evaluate:22Jul2015); Last Rx:[id number] Ordered 9. Pantoprazole Sodium 40 MG Oral Tablet Delayed Release; TAKE 1 TABLET BY MOUTH EVERY DAY; Therapy: 16Jan2014 to (Evaluate:06Jun2017) Requested for: 29Hhq2376; Last Rx:71Rou4815 Ordered 10. Pravastatin Sodium 40 MG Oral Tablet; TAKE 1 TABLET BY MOUTH AT BEDTIME; Therapy: 30Apr2014 to (Evaluate:59Hay8652) Requested for: 18Jne1528; Last Rx:[id number] Ordered 11. RaNITidine HCl - 300 MG Oral Capsule; TAKE 1 CAPSULE AT BEDTIME NIGHTLY; Therapy: 71Eyc6329 to (Evaluate:13Nov2017) Requested for: 17May2017; Last Rx:[id number] Ordered Allergies 1. No Known Drug Allergies Immunizations Influenza --- Series1: 07-Jan-2015; Series2: 09-Jan-2016 Vitals Recorded: 08Nov2017 01:45PM Temperature 97.6 F Heart Rate 64 Respiration 18 Systolic 128 Diastolic 68 O2 Saturation 97 Height 5 ft 2 in Weight 137 lb 2 oz BMI Calculated 25.08 BSA Calculated 1.63 Physical Exam Constitutional General appearance: No acute distress, well appearing and well nourished. Head and Face Head and face: Normal. Eyes Conjunctiva and lids: No swelling, erythema or discharge. Ears, Nose, Mouth, and Throat Otoscopic examination: Abnormal. The right tympanic membrane had a loss of landmarks and had a diminished light reflex. The left tympanic membrane had no loss of landmarks and had an intact light reflex. Oropharynx: Abnormal. (Clear secretions, no abnormalities seen) Neck Neck: Supple, symmetric, trachea midline, no masses. Thyroid: Normal, no thyromegaly. Pulmonary Respiratory effort: No increased work of breathing or signs of respiratory distress. Auscultation of lungs: Clear to auscultation. Cardiovascular Auscultation of heart: Normal rate and rhythm, normal S1 and S2, no murmurs. Carotid pulses: 2+ bilaterally. Examination of extremities for edema and/or varicosities: Abnormal. Trace PE.. Abdomen Abdomen: Non-tender, no masses. Liver and [...] present risk. Psychiatric Judgment and insight: Normal. Mood and affect: Normal. Assessment 1. Hypertension (401.9) (I10) 2. Diabetes mellitus (250.00) (E11.9) 3. GERD (gastroesophageal reflux disease) (530.81) (K21.9) 4. Hyperlipidemia (272.4) (E78.5) 5. Hypothyroidism (244.9) (E03.9) Plan Breast cancer screening, Hypertension 1. MG SCREEN MAMMO DIGITAL BI; Status:Active; Requested for:05Hzj6960; Perform:[facility]; Due:84Arc4443; Last Updated By:Melody Ratliff; 11/08/2017 3:30:03PM;Ordered; For:Breast cancer screening, Hypertension; Ordered By:Noemi Barnard; Pt has mammogram scheduled on 11/11/17 at [facility] Hyperlipidemia 2. Pravastatin Sodium 40 MG Oral Tablet; TAKE 1 TABLET BY MOUTH AT BEDTIME Rx By: Noemi Barnard; Dispense: 90 Days ; #:90 Tablet; Refill: 0; For: Hyperlipidemia; HI = N; Verified Transmission to [facility] [address]; Last Updated By: Rosalba Felder; 11/08/2017 3:18:17 PM Otitis media 3. Follow-up visit in 3 months Outpatient Follow-up Status: Complete Done: [id number] Ordered; For: Otitis media; Ordered By: Noemi Barnard Performed: Due: 40Abh5873; Last Updated By:Melody Ratliff; 11/08/2017 3:21:21 PM 4. Otolaryngology Referral Outpatient For: Otitis media Status: Need Information - Financial Authorization Requested for: [id number] Ordered; For: Otitis media; Ordered By: Noemi Barnard Performed: Order Comments: questionable perforation with effusion Due: 57Kis4927; Last Updated By: Noemi Hoffman; 11/10/2017 8:43:16 AM pending completion of office note Discussion/Summary Refer to ENT to further evaluate for underlying neoplasm. Negative adult depression screen.. Falls risk assessment completed. Signatures Electronically signed by : Noemi Barnard M.D.; Nov 12 2017 1:44PM VALET SERVICE ATTENDANT (Author) documented in this encounter Plan of Treatment Not on file documented as of this encounter Visit Diagnoses Not on filedocumented in this encounter
--- OUTSIDE RECORDS SUMMARY | 2024-04-05 00:27 | XMS_ITS | Encounter Summary ---
Author Organization [facility] Address [address] [place] [address]. [place] [address] [place] [address] Care Team Providers Care Cut Off Saw Operator Pipe Blanks Name Role Phone Unavailable Primary Care Provider Unavailabl e Encounter Details Date Type Department Care Team (Latest Contact Info) Description 04/14/2017 Abstract [facility] [place] [address] [place] [address] Social History Tobacco Use Types [...]
--- OUTSIDE RECORDS SUMMARY | 2024-04-05 00:27 | XMS_ITS | Encounter Summary ---
Author Organization [facility] Address [address] [place] [address]. [place] [address] [place] [address] Care Team Providers Care Job Press Feeder Name Role Phone Unavailable Primary Care Provider Unavailabl e Encounter Details Date Type Department Care Team (Late st Contact Info) Description 07/21/[address] [facility] Family & Internal Medicine [address] [address] Martha Ruiz NP Social History [...] Sign Reading Time Taken Comments Blood Pressure 122/60 07/21/2016 3:04 PM CDT Pulse 66 07/21/2016 3:04 PM CDT Temperature - - Respiratory Rate - - Oxygen Saturation - - Inhaled Oxygen Concentration - - Weight 57.2 kg (126 lb) 07/21/2016 3:04 PM CDT Height 157.5 cm (5' 2 ) 07/21/2016 3:04 PM CDT Body Mass Index 23.05 07/21/2016 3:04 PM CDT documented in this encounter Progress Notes * Martha Ruiz NP - 07/21/2016 2:45 PM CDT Reason For Visit Acute Follow-Up Visit Chief Complaint Acute 2 week f/u on UTI. Pt stated she still has burning after urination. She had UA done today. History of Present Illness UTI, Acute: The patient is being seen for follow-up from urgent care for a urinary tract infection. Symptoms: no dysuria and no urinary frequency. Symptom Cluster Details: she reports the symptoms are improving. Review of Systems Constitutional, Eyes, ENT, Cardiovascular, Respiratory, Gastrointestinal, Musculoskeletal, Integumentary, Neurological, Psychiatric, Endocrine and Hematologic review of systems normal except as noted. Genitourinary: vaginal itching, but no dysuria. Active Problems 1. Diabetes mellitus (250.00) (E11.9) 2. Dizziness (780.4) (R42) 3. Hyperlipidemia (272.4) (E78.5) 4. Hypertension (401.9) (I10) 5. Hypothyroidism (244.9) (E03.9) 6. Impacted cerumen of right ear (380.4) (H61.21) 7. Insomnia (780.52) (G47.00) 8. Neck muscle spasm (728.85) (M62.838) 9. Urinary frequency (788.41) (R35.0) 10. Urinary tract infection (599.0) (N39.0) 11. Vitamin d deficiency (268.9) (E55.9) Past Medical [...] No alcohol use Immunizations Influenza --- Series1: 07Jan2015; Series2: 56Mtb5204 Current Meds 1. AmLODIPine Besylate 5 MG Oral Tablet; TAKE 1 TABLET BY MOUTH DAILY; Therapy: 53Buu8811 to (Evaluate:24Aug2016) Requested for: 26Feb2016; Last Rx:26Feb2016 Ordered 2. Enalapril Maleate 20 MG Oral Tablet; TAKE 1 TABLET BY MOUTH DAILY DIRECTED; Therapy: 23Jan2014 to (Evaluate:87Tbe4864) Requested for: 03Mar2016; Last Rx:03Mar2016 Ordered 3. Janumet 50-500 MG Oral Tablet; TAKE ONE TABLET BY MOUTH TWICE DAILY WITH MEALS; Therapy: 53Ycd2309 to (Evaluate:24Sep2016) Requested for: 26Jun2016; Last Rx:26Jun2016 [...] Therapy: 23Jan2015 to (Evaluate:22Jul2015); Last Rx:23Jan2015 Ordered 8. Pantoprazole Sodium 40 MG Oral Tablet Delayed Release; TAKE 1 TABLET BY MOUTH EVERY DAY; Therapy: 16Jan2014 to (Evaluate:13Sep2016) Requested for: 15Jun2016; Last Rx:15Jun2016 Ordered 9. Pravastatin Sodium 40 MG Oral Tablet; TAKE ONE TABLET BY MOUTH AT BEDTIME; Therapy: 30Apr2014 to (Evaluate:13Aug2016) Requested for: 14Jul2016; Last Rx:[id number] Ordered 10. TiZANidine HCl - 2 MG Oral Tablet; 1- 2 po HS PRN neck pain; Therapy: 76Upw6026 to (Evaluate:09Feb2016) Requested for: 10Cfg7398; Last Rx:72Vnb1252 Ordered 11. TraZODone HCl - 50 MG Oral Tablet; TAKE 1 TO 2 TABLETS BY MOUTH EVERY NIGHT AT BEDTIME NEEDED FOR INSOMNIA; Therapy: 26Jun2014 to (Evaluate:81Hyp5741) Requested for: 13Jan2016; Last Rx:13Jan2016; Status: ACTIVE - Renewal Denied Ordered Allergies 1. No Known Drug Allergies Vitals Recorded: 21Jul2016 03:04PM Temperature 97.8 F Heart Rate 66 Systolic 122 Diastolic 60 O2 Saturation 98 Height 5 ft 2 in Weight 126 [...] time: Normal. Mood and affect: Normal. Results/Data *Urine dip auto In Office 21Jul2016 03:12PM Martha Ruiz Test Name Result Flag Reference Color Yellow Clarity Clear Glucose Negative Bilirubin Negative Ketones Negative Specific [place] 1.030 Blood Negative pH 5.0 5.0 - 7.0 Protein Negative Urobilinogen 0.2 E.U./dL Nitrites Negative Leukocytes Trace Assessment 1. Urinary tract infection (599.0) (N39.0) 2. Atrophic vaginitis (627.3) (N95.2) Plan Urinary tract infection 1. *Urine dip auto In Office; Status:Complete; Done: 21Jul2016 03:12PM Performed:In Office; Due:73Iuc2077; Last Updated By:Noemi Beltran; 07/21/2016 3:13:42 PM;Ordered; For:Urinary tract infection; Ordered By:Martha Ruiz; Pt will use vaginal cream that she has at home. Sending urine for C & S Will call pt back Signatures Electronically signed by : Martha Ruiz NP; Jul 26 2016 9:45PM CERTIFIED ORTHOTIST (Author) documented in this encounter Plan of Treatment Not on file documented as of this encounter Procedures Procedure Name Priority Date/Time Associated Diagnosis Comments URINE BACTERIA CULTURE Routine 07/21/2016 6:55 PM CDT URINALYSIS AUTO DIP Routine 07/21/2016 3 :12 PM CDT documented in this encounter Results * CULTURE URINE (07/21/2016 6:55 PM CDT) CULTURE URINE SPECIMEN DESCRIPTION ? - URINE CLEAN CATCH SPECIAL REQUESTS ? - NO SPECIAL REQUEST CULTURE ?- POLYMICROBIAL GROWTH CONSISTENT WITH NORMAL GENITAL SAVI. ??SUSCEPTIBILITIE S NOT CULTURE ?- ??ROUTINELY PERFORMED. CULTURE ?- TESTING PERFORMED AT [facility], [address] [place] [address], CULTURE ?- ??[place], [place] ??[address] REPORT STATUS ?- FINAL 07/23/2016 [facility] TO EPIC CONVERSION 07/21/2016 6:55 PM CDT 07/21/2016 6:55 PM CDT Narrative [facility] TO EPIC CONVERSION - 07/23/2016 9:24 AM CDT Result Communication: No patient communication needed at this time Martha Ruiz UPPER INSPECTOR MICROBIOLOGY - GENERAL ORDERA BLES Final Result Performing Organization Address City/[facility] Co de Phone Number [facility] TO EPIC CONVERSION * URINALYSIS AUTO DIP (07/21/2016 3:12 PM CDT) COLOR (U) Yellow [facility] T O EPIC CONVERSION TRANSPARENCY Clear [facility] P TO EPIC CONVERSION GLUCOSE Negative [facility] T O EPIC CONVERSION BILIRUBIN (U) Negative [facility] UP TO EPIC CONVERSION KETONE (U) Negative [facility] TO EPIC CONVERSION SPECIFIC GRAVITY (U) 1.030 [facility] TO EPIC CONVERSION BLOOD (U) Negative [facility] T O EPIC CONVERSION PH (U) 5.0 5.0 - 7.0 [facility] T O EPIC CONVERSION PROTEIN (ELP) (U) Negative [facility] TO EPIC CONVERSION UROBILINOGEN 0.2 E.U./dL [facility] OUP TO EPIC CONVERSION NITRITES Negative [facility] T O EPIC CONVERSION LEUKOCYTES (U) Trace [facility] OUP TO EPIC CONVERSION 07/21/2016 3:12 PM CDT 07/21/2016 3:12 PM CDT Martha Ruiz UPPER INSPECTOR URINE ORDERABLES Final Result [facility] TO EPIC CONVERSION documented in this encounter Visit Diagnoses Not on filedocumented in this encounter
--- OUTSIDE RECORDS SUMMARY | 2024-04-05 00:27 | XMS_ITS | Encounter Summary ---
Author Organization [facility] Address [address] [place] [address]. [place] [address] [place] [address] Care Team Providers Care Six Sigma Black Belt Engineer Name Role Phone Unavailable Primary Care Provider Unavailabl e Encounter Details Date Type Department Care Team (Late st Contact Info) Description 05/17/2017 Abstract [facility] Medical Group Family & Internal Medicine [facility] [id number] [place] [phone] [place] [id number] [place] [address] Social History Tobacco Use Types Packs/Day Years Used Date Smoking Tobacco: Never Assessed Comments Unknown Sex and Gender Information Value Date Recorded Sex Assigned at Not on file Legal Sex Female 8:14 PM CDT Gender Identity Not on file Sexual Orientation Not on file documented as of this encounter Last Filed Vital Signs Vital Sign Reading Time Taken Comments Blood Pressure 142/60 05/17/2017 1:16 PM WEATHERIZATION SPECIALIST Pulse 64 05/17/2017 1:16 PM WEATHERIZATION SPECIALIST Temperature - - Respiratory Rate - - Oxygen Saturation - - Inhaled Oxygen Concentration - - Weight 60.5 kg (133 lb 6.4 oz) 05/17/2017 1:16 P M WEATHERIZATION SPECIALIST Height 157.5 cm (5' 2 ) 05/17/2017 1:16 PM WEATHERIZATION SPECIALIST Body Mass Index 24.4 05/17/2017 1:16 PM WEATHERIZATION SPECIALIST documented in this encounter Progress Notes * Noemi Barnard MD - 05/17/2017 1:20 PM CST Chief Complaint Here for 3 month follow up on her diabetes, hypertension. Also had HA1C done and needs those results. History of Present Illness An 81-year-old female here for follow-up of diabetes and A1c done May 07 revealed 6.0, previously 6.5. Her medications are metformin extended-release she was taking BID, still having occasional diarrhea but better than in the past. She had diarrhea, was placed on prednisone until she could see the GI. I had her do a prep, I do not have a colonoscopy report. Her diarrhea has significantly improved and she is wondering whether the artificial sugar could be contributing to this. The other issue is GERD. Diabetes Type II (Follow-Up): The patient states [...] down after meals. Relieving factors: antacids and [id number]. No associated symptoms are reported. The patient is not currently being treated for this problem. Pertinent medical history: None. She was previously evaluated Per GI. Review of Systems See HPI for pertinent positives. Constitutional: as noted in HPI and fatigue. Head and Face: negative. Eyes: negative. ENT: Itching right ear. Cardiovascular: negative. Respiratory: negative. Gastrointestinal: heartburn. Musculoskeletal: joint stiffness. The patient presents with complaints of rash (Will be seeing parking lot attendant and cashier).. Psychiatric: as noted in HPI and insomnia. Neurological tingling. Active Problems 1. Abdominal pain, chronic, left lower quadrant (789.04,338.29) (R10.32,G89.29) 2. Claudication (443.9) (I73.9) 3. Colitis (558.9) (K52.9) 4. Diabetes mellitus (250.00) (E11.9) 5. Diarrhea (787.91) (R19.7) 6. 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 Hyperlipidemia (272.4) (E78.5) 8. Hypertension (401.9) (I10) 9. Hypothyroidism (244.9) (E03.9) 10. Insomnia (780.52) (G47.00) 11. Lumbago (724.2) (M54.5) 12. Rash (782.1) (R21) 13. Vitamin D deficiency (268.9) (E55.9) Past Medical [...] TABLET BY MOUTH DAILY; Therapy: 06Mar2015 to (Evaluate:60Hed3575) Requested for: 19Feb2017; Last Rx:19Feb2017 Ordered 2. Enalapril Maleate 20 MG Oral Tablet; TAKE 1 TABLET BY MOUTH DAILY DIRECTED; Therapy: 23Jan2014 to (Evaluate:68Hri9279) Requested for: 23Feb2017; Last Rx:23Feb2017 Ordered 3. HydrOXYzine HCl - 25 MG Oral Tablet; TAKE 1 TABLET AT BEDTIME NEEDED; Therapy: 30Nov2016 to (Evaluate:28Feb2017) Requested for: 79Rcl4974; Last Rx:68Inz7805 Ordered 4. Levothyroxine Sodium 50 MCG Oral Tablet; TAKE 1 TABLET EVERY SAT & SUN; Therapy: 30Apr2014 to (Evaluate:06Feb2017) Requested for: 10Aug2016; Last Rx:10Aug2016 Ordered 5. Levothyroxine Sodium 75 MCG Oral Tablet; TAKE 1 TABLET EVERY OTHER DAY; Therapy: 10Feb2016 to (Evaluate:05Aug2017) Requested for: 10Aug2016; Last Rx:10Aug2016 Ordered 6. Melatonin 10 MG Oral Capsule; TAKE 1 PO AT HS; Therapy: 07Aug2015 to (Evaluate:09Sep2016) Recorded 7. MetFORMIN HCl ER 500 MG Oral Tablet Extended Release 24 Hour; TAKE 1 TABLET BY MOUTH TWICE A DAY; Therapy: 15Feb2017 to (Evaluate:14Aug2017) Requested for: 15Feb2017; Last Rx:15Feb2017 Ordered 8. OneTouch Ultra Blue In Vitro Strip; 1 Strip 3X/weekly & PRN; Therapy: 23Jan2015 to (Evaluate:22Jul2015); Last Rx:23Jan2015 Ordered 9. Pantoprazole Sodium 40 MG Oral Tablet Delayed Release; TAKE 1 TABLET BY MOUTH EVERY DAY; Therapy: 16Jan2014 to (Evaluate:06Jun2017) Requested for: 75Vwg3259; Last Rx:80Baf0028 Ordered 10. Pravastatin Sodium 40 MG Oral Tablet; TAKE 1 TABLET BY MOUTH AT BEDTIME; Therapy: 30Apr2014 to (Evaluate:50Cch4074) Requested for: 12Feb2017; Last Rx:12Feb2017 Ordered Allergies 1. No Known Drug Allergies Immunizations Influenza --- Series1: 07-Jan-2015; Series2: 09-Jan-2016 Vitals Recorded: 32Nso3212 01:16PM Temperature 97.8 F Heart Rate 64 Respiration 16 Systolic 142 Diastolic 60 O2 Saturation 98 Height 5 ft 2 in Weight 133 lb 6.4 oz BMI Calculated 24.4 BSA Calculated 1.61 Physical Exam Constitutional General appearance: No acute [...] an intact light reflex. Oropharynx: Abnormal. (Clear secretions ) Neck Neck: [...] Counseling The patient was counseled regarding diagnostic results and risks and benefits of treatment options. Assessment 1. GERD (gastroesophageal reflux disease) (530.81) (K21.9) 2. Diabetes mellitus (250.00) (E11.9) 3. Vitamin D deficiency (268.9) (E55.9) 4. Diarrhea (787.91) (R19.7) Plan Diabetes mellitus 1. MetFORMIN HCl ER 500 MG Oral Tablet Extended Release 24 Hour; TAKE 1 TABLET BY MOUTH TWICE A DAY Rx By: Noemi Barnard; Dispense: 90 Days ; #:180 Tablet; Refill: 1; For: Diabetes mellitus; HI = N; Verified Transmission to [facility]; Last Updated By: [employer]; 05/17/2017 1:55:38 PM if having diarrhea & A1c is 6.0 try just pm dose GERD (gastroesophageal reflux disease) 2. RaNITidine HCl - 300 MG Oral Capsule; TAKE 1 CAPSULE AT BEDTIME NIGHTLY Rx By: Noemi Barnard; Dispense: 90 Days ; #:90 Capsule; Refill: 1; For: GERD (gastroesophageal reflux disease); HI = N; Verified Transmission to [facility] [address]1662; Last Updated By: [employer] Things; 05/17/2017 1:55:37 PM Hypertension 3. Follow-up visit in 6 months Outpatient Follow-up Status: Complete Done: [id number] Ordered; For: Hypertension; Ordered By: Noemi Barnard Performed: Due: 79Lsk2639; Last Updated By:Lianna Rousseau; 05/17/2017 5:01:34 PM Discussion/Summary 1. Diabetes. A1c is improved; however, still having some diarrhea. We will decrease metformin from 500 mg BID to just 500 mg at night and have her continue with diet, exercise, and healthy eating. 2. For the GERD, we discussed the risks and benefits of PPI. For now, we will go just Zantac 300 mgat night to treat. If this does not hold her, can do an intermittent PPI rather than long-term therapy. 3. Hypertension is stable. Continue the same. We will plan on a follow-up in 6 months. Otherwise, PRN. Signatures Electronically signed by : Noemi Barnard M.D.; May 23 2017 9:46PM WEATHERIZATION SPECIALIST (Author) documented in this encounter Plan of Treatment Not on file documented as of this encounter Procedures Procedure Name Priority Date/Time Associated Diagnosis Comments LIPID W/CALC LDL Routine 11/01/2017 8:19 AM CDT ALBUMIN URINE RANDOM WO/CREATININE Routine 11/01/2017 8:19 AM CDT HEMOGLOBIN, GLYCOSYLATED Routine 11/01/2017 8:19 AM CDT COMPREHENSIVE METABOLIC PANEL Routine 11/01/2017 8:19 AM CDT CBC W/DIFF AUTOMATED Routine 11/01/2017 8:19 AM CDT THYROID STIM HORMONE TSH Routine 11/01/2017 8:19 AM CDT VITAMIN D, 25 OH Routine 11/01/2017 8:19 AM CDT documented in this encounter Results * (ABNORMAL) COMPREHENSIVE METABOLIC PANEL (11/01/2017 8:19 AM CDT) SODIUM S/P/B 143 136 - 145 MMOL/L [facility] TO EPIC CONVERSION POTASSIUM S/P/B 3.9 3.5 - 5.1 MMOL/L [facility] TO EPIC CONVERSION CHLORIDE S/P/B 104 100 - 108 MMOL/L [facility] TO EPIC CONVERSION CO2 23.1 21 - 32 MMOL/L [facility] TO EPIC CONVERSION ANION GAP 19.8 8 - 20 MMOL/L [facility] TO EPIC CONVERSION BUN 12 7 - 18 MG/DL [facility] TO EPIC CONVERSION CREATININE S/P/B 0.81 0.55 - 1.02 MG/DL [facility] TO EPIC CONVERSION GFR ESTIMATE 68(L) >90 ML/MIN/1.7 3 M2 [facility] TO EPIC CONVERSION EGFR AFR. AMER. 78(L) >90 ML/MIN/1.7 3 M2 [facility] TO EPIC CONVERSION Comment: Result Comment: NOTE: eGFR is not calculated for patients <18 years of age. This is an estimated GFR (CKD EPI) and should not be used for calculating drug doses. BUN CREATININE RATIO 14.8 6 - 26 [facility] TO EPIC CONVERSION GLUCOSE 104(H) 70 - 99 MG/DL [facility] TO EPIC CONVERSION CALCIUM S/P/B 9.6 8.5 - 10.1 MG/DL [facility] TO EPIC CONVERSION BILIRUBIN TOTAL S/P/B 0.7 0.2 - 1.2 MG/DL [facility] TO EPIC CONVERSION AST 15 15 - 37 U/L [facility] TO EPIC CONVERSION ALT 20 14 - 55 U/L [facility] TO EPIC CONVERSION ALKALINE PHOSPHATASE S/P/B 110 50 - 136 U/L [facility] TO EPIC CONVERSION TOTAL PROTEIN S/P/B 7.0 6.4 - 8.2 G/DL [facility] TO EPIC CONVERSION ALBUMIN S/P/B 4.0 3.4 - 5.0 G/DL [facility] TO EPIC CONVERSION A/G RATIO 1.3 1.0 - 2.0 RATIO [facility] TO EPIC CONVERSION 11/01/2017 8:19 AM CDT 11/01/2017 8:19 AM CDT Narrative [facility] TO EPIC CONVERSION - 11/01/2017 5:50 PM CDT Result Communication: No patient communication needed at this time Noemi Barnard MD LABORATORY Final Result Performing Organization Address [facility] de Phone Number [facility] TO EPIC CONVERSION * THYROID STIM HORMONE, TSH (11/01/2017 8:19 AM CDT) TSH 1.652 0.358 - 3.74 uIU/ML [facility] TO EPIC CONVERSION Comment: Result Comment: HIGH DOSES OF BIOTIN MAY INTERFERE WITH THIS TEST RESULT. CORRELATION TO CLINICAL HISTORY AND PRESENTATION RECOMMENDED. 11/01/2017 8:19 AM CDT 11/01/2017 8:19 AM CDT Narrative [facility] TO EPIC CONVERSION - 11/01/2017 5:50 PM CDT Result Communication: No patient communication needed at this time Noemi Barnard MD LABORATORY Final Result Performing Organization Address [facility] de Phone Number [facility] TO EPIC CONVERSION * VITAMIN D, 25 OH (11/01/2017 8:19 AM CDT) VITAMIN D 25 HYDROXY S/P/B 34 30 - 100 NG/ML [facility] TO EPIC CONVERSION Comment: Result Comment: ?INTERPRETATION ?DEFICIENT ?? <20 ?INSUFFICIENT 20-29 ? SUFFICIENT 30-100 11/01/2017 8:19 AM CDT 11/01/2017 8:19 AM CDT Narrative [facility] TO EPIC CONVERSION - 11/02/2017 8:48 PM CDT Result Communication: No patient communication needed at this time us Noemi Barnard MD LABORATORY Final Result [facility] TO EPIC CONVERSION * LIPID W/CALC LDL (11/01/2017 8:19 AM CDT) CHOLESTEROL 160 <200.0 MG/DL [facility] TO EPIC CONVERSION TRIGLYCERIDES 121 <150 MG/DL [facility] TO EPIC CONVERSION HDL 75 >40.0 MG/DL [facility] TO EPIC CONVERSION LDL (CALCULATED) 60.8 <100 MG/DL [facility] TO EPIC CONVERSION CHOL/HDL RATIO 2.1 0.0 - 4.5 [facility] TO EPIC CONVERSION NON HDL CHOLESTEROL 85 <130 MG/DL [facility] TO EPIC CONVERSION VLDL CALCULATION 24 5 - 55 MG/DL [facility] TO EPIC CONVERSION INTERPRETATION NIH CONCENSUS REPORT RECOMMENDATI ONS: ?ADULT ?CHILD ?? LOW RISK: ?CHOLESTERO L ? <200 ? <170 ?TRIGLYCERI DE ?<150 ?--- ?HDL ? >=60 ?--- ?LDL ? <100 ? <110 ? BORDERLINE: ?CHOLESTERO L ? 200-239 ?? 170-199 ?TRIGLYCERI DE ?150-199 ? --- ?HDL ?40-59 ?--- ?LDL ? 100-159 ?? 110-129 ? HIGH RISK: ?CHOLESTERO L ? >=240 ?>=200 ?TRIGLYCERI DE ?>=200 ? --- ?HDL ?<40 ?--- ?LDL ? >=160 ?>=130 [facility] TO EPIC CONVERSION 11/01/2017 8:19 AM CDT 11/01/2017 8:19 AM CDT Narrative [facility] TO EPIC CONVERSION - 11/01/2017 5:50 PM CDT Result Communication: No patient communication needed at this time us Noemi Barnard MD LABORATORY Final Result Performing Organization Address [facility] Phone Number [facility] TO EPIC CONVERSION * URINE MICROALBUMIN (11/01/2017 8:19 AM CDT) MICROALBUMIN (U) 0.5 <2.0 mg/dL ME [facility] TO EPIC CONVERSION 11/01/2017 8:19 AM CDT 11/01/2017 8:19 AM CDT Narrative [facility] TO EPIC CONVERSION - 11/01/2017 3:26 PM CDT Result Communication: No patient communication needed at this time Noemi Barnard MD LABORATORY Final Result Performing Organization Address [facility] de Phone Number [facility] TO EPIC CONVERSION * (ABNORMAL) HEMOGLOBIN, GLYCOSYLATED (11/01/2017 8:19 AM CDT) HGB A1C 6.4(H) <5.7 % [facility] T O EPIC CONVERSION Comment: Result Comment: ?? INCREASED RISK OF DIABETES <5.7% ?NON-DIABETES 5.7-6.4% INCREASED RISK FOR FUTURE DIABETES > OR = 6.5 CONSISTENT WITH DIABETES ?? STANDARDS OF MEDICAL CARE IN DIABETES-2010 DIABETES CARE, 33(SUPP 1): S1-S61,2009 11/01/2017 8:19 AM CDT 11/01/2017 8:19 AM CDT Narrative [facility] TO EPIC CONVERSION - 11/01/2017 3:14 PM CDT Result Communication: No patient communication needed at this time us Noemi Barnard MD LABORATORY Final Result [facility] TO EPIC CONVERSION * CBC W/DIFF AUTOMATED (11/01/2017 8:19 AM CDT) WBC 5.4 4.4 - 11.0 x10'3/uL [facility] TO EPIC CONVERSION RBC 4.73 4.50 - 5.10 x10'6/uL [facility] TO EPIC CONVERSION HGB 12.5 12.3 - 15.3 G/DL [facility] TO EPIC CONVERSION HCT 40.3 35.9 - 44.6 % [facility] TO EPIC CONVERSION MCV 85.2 80.0 - 96.0 FL [facility] TO EPIC CONVERSION MCH 26.4 25.3 - 30.9 PG [facility] TO EPIC CONVERSION MCHC 31.0 31.0 - 34.1 G/DL [facility] TO EPIC CONVERSION RDW 14.8 12.4 - 15.1 % [facility] TO EPIC CONVERSION PLT 213 151 - 353 x10'3/uL [facility] TO EPIC CONVERSION MPV 10.8 9.6 - 12.0 FL [facility] TO EPIC CONVERSION BASOPHILS % 0.4 0.0 - 1.3 % [facility] TO EPIC CONVERSION EOSINOPHILS % 2.6 0.0 - 5.6 % [facility] TO EPIC CONVERSION NEUTROPHILS % 71.0 42.1 - 71.9 % [facility] TO EPIC CONVERSION LYMPHOCYTES % 18.8 15.8 - 45.0 % [facility] TO EPIC CONVERSION IMMATURE GRANS % 0.2 0.0 - 0.5 % [facility] TO EPIC CONVERSION ABS. NEUTROPHILS TOTAL 3.86 1.40 - 6.00 x10'3/uL [facility] TO EPIC CONVERSION WBC MORPHOLOGY NORMAL [facility] OUP TO EPIC CONVERSION PLT MORPH. NORMAL [facility] TO EPIC CONVERSION RBC MORPHOLOGY NORMAL [facility] OUP TO EPIC CONVERSION MONOCYTES 7.0 5.7 - 12.5 % [facility] TO EPIC CONVERSION ABS. LYMPHOCYTES 1.02 0.80 - 4.70 x10'3/uL [facility] TO EPIC CONVERSION 11/01/2017 8:19 AM CDT 11/01/2017 8:19 AM CDT Narrative [facility] TO EPIC CONVERSION - 11/01/2017 2:48 PM CDT Result Communication: No patient communication needed at this time us Noemi Barnard MD LABORATORY Final Result [facility] TO EPIC CONVERSION documented in this encounter Visit Diagnoses Not on filedocumented in this encounter
--- OUTSIDE RECORDS SUMMARY | 2024-04-05 00:27 | XMS_ITS | Encounter Summary ---
Author Organization [facility] Address [facility] [place] [address] [place] [address] Care Team Providers Care Digital Assistant Name Role Phone Unavailable Primary Care Provider Unavailabl e Encounter Details Date Type Department Care Team (Latest Contact Info) Description 11/01/2017 [facility] [place] [address] [place] [address] Social History Tobacco Use Types [...] Name Priority Date/Time Associated Diagnosis Comments VITAMIN B-12 Routine 11/01/2017 8:19 AM CDT documented in this encounter Results * VITAMIN B-12 (11/01/2017 8:19 AM CDT) VITAMIN B12 S/P/B 279 193 - 986 PG/ML [facility] TO EPIC CONVERSION 11/01/2017 8:19 AM CDT 11/01/2017 8:19 AM CDT Narrative [facility] TO EPIC CONVERSION - 11/02/2017 12:48 PM CDT Result Communication: No patient communication needed at this time Noemi Barnard MD LABORATORY Final Result [facility] TO EPIC CONVERSION documented in this encounter Visit Diagnoses Not on filedocumented in this encounter
--- OUTSIDE RECORDS SUMMARY | 2024-04-05 00:27 | XMS_ITS | Encounter Summary ---
Author Organization [facility] Address [address] [place] [address]. [place], [place] [address] [place] [address] Care Team Providers Care Systems Architect Name Role Phone Unavailable Primary Care Provider Unavailabl e Encounter Details Date Type Department Care Team (Latest Contact Info) Description 06/03/2016 Abstract [facility] Medical Group Social History Tobacco Use Types [...]
--- OUTSIDE RECORDS SUMMARY | 2024-04-05 00:27 | XMS_ITS | Encounter Summary ---
Author Organization [facility] Address [facility] [facility] [place] [address] [place] [address] Care Team Providers Care Size Changer Name Role Phone Unavailable Primary Care Provider Unavailabl e Encounter Details Date Type Department Care Team (Latest Contact Info) Description 08/14/2016 Abstract [facility] [place] [address] [place] [address] Social History Tobacco Use Types [...] Procedure Name Priority Date/Time Associated Diagnosis Comments ULTRASOUND GENERIC (SCAN ORDER) Routine 08/14/2016 2:57 PM CDT documented in this encounter Results * ULTRASOUND GENERIC (08/14/2016 2:57 PM CDT) Anatomical Region Laterality Modality Other 08/14/2016 2:57 PM CDT 08/14/2016 2:57 PM CDT Narrative 08/14/2016 3:03 PM CDT ROXANA RITCHIE ? ADMIT/SERVICE DATE: 08/14/16 ?? ACCT: [id number] ?DISCHARGE DATE: ?? : 1935 ??SEX: F ?ORD SITE: [facility] ?? PT TYPE: REG CLI ? ORDERING MD: KALIE,NOEMI MD ? STUDY DATE ? REPORT # ?ORDER # ? EXT ORDER ID ?? 08/14/16 ? [id number] ? [id number] ?[id number] ? PROC CODE: ? ARTDOPWOEB ? PROCEDURE DESCRIPTION: ?? US ART DOPPLER WO EXER BI TRUDY ? IMAGING STUDIES: ??US ART DOPPLER WO EXER BI TRUDY ? EXAM DATE: 08/14/2016 12:33 PM ? COMPARISON STUDIES: NO PREVIOUS AVAILABLE. ? CLINICAL HISTORY: OTHER - US, I73.9 ??. DIABETES, HYPERLIPIDEMIA, HYPERTENSION ? FINDINGS: ? MULTIPHASIC WAVEFORMS PRESENT BILATERALLY ? SYSTOLIC BLOOD PRESSURE (MMHG) ? SITE ? RIGHT ?LEFT ? BRACHIAL ?148 ? 150 ? PT ?161 ? 157 ? DP ?158 ? 158 ? TRUDY PT ?1.07 ? 1.05 ? TRUDY DP ?1.05 ? 1.05 ? TBI ? 0.91 ?1.0 ? IMPRESSION: ? NORMAL ABIS. ? THE SAP HANA ARCHITECT OF THIS REPORT IN ITS ENTIRETY IS A PRODUCT OF VOICE RECOGNITION SOFTWARE. ? ELECTRONICALLY SIGNED BY OLESYA PIERCE MD ? Procedure Note Rhianna Abreu MD - 01/26/2018 ROXANA RITCHIE ADMIT/SERVICE DATE:08/14/16 ACCT: [id number] DISCHARGE DATE: : 1935 SEX: F ORD SITE: [facility] PT TYPE: REG CLI ORDERING MD:NOEMI JADE MD STUDY DATE REPORT # ORDER # EXT ORDER ID 08/14/16 [id number] PROC CODE: ARTDOPWOEB PROCEDURE DESCRIPTION: US ART DOPPLER WO EXER BI TRUDY IMAGING STUDIES: US ART DOPPLER WO EXER BI TRUDY EXAM DATE: 08/14/2016 12:33 PM COMPARISON STUDIES: NO PREVIOUS AVAILABLE. CLINICAL HISTORY: OTHER - US, I73.9 . DIABETES, HYPERLIPIDEMIA,HYPERTENSION FINDINGS: MULTIPHASIC WAVEFORMS PRESENT BILATERALLY SYSTOLIC BLOOD PRESSURE (MMHG) SITE RIGHT LEFT BRACHIAL 148 150 PT 161 157 DP 158 158 TRUDY PT 1.07 1.05 TRUDY DP 1.05 1.05 TBI 0.91 1.0 IMPRESSION: NORMAL ABIS. THE SAP HANA ARCHITECT OF THIS REPORT IN ITS ENTIRETY IS A PRODUCT OF VOICERECOGNITION SOFTWARE. ELECTRONICALLY SIGNED BY OLESYA PIERCE MD us Noemi Jade MD SCANNING Final Result documented in this encounter Visit Diagnoses Not on filedocumented in this encounter
--- OUTSIDE RECORDS SUMMARY | 2024-04-05 00:27 | XMS_ITS | Encounter Summary ---
Author Organization [facility] Address [address] [place] [address]. [place], [place] [address] [place] [address] Care Team Providers Care Veneer Stock Layer Name Role Phone Noemi Barnard MD Primary Care Provider [phone] Encounter Details Date Type Department Care Team (Late st Contact Info) Description 04/20/2017 Abstract [facility] [address] [place], [place] [id number] Christos Burrows MD [address] [address] Social History Tobacco Use Types Packs/Day Years [...] quadrant documented in this encounter Care Teams Veneer Stock Layer Relationship Specialty Start Date End Date Noemi Barnard MD PCP - General INTERNAL MEDICINE 02/22/18 07/03/18 documented as of this encounter
--- OUTSIDE RECORDS SUMMARY | 2024-04-05 00:27 | XMS_ITS | Encounter Summary ---
Author Organization [facility] Address formerly [facility] [facility] [place] [address] [place] [address] Care Team Providers Care Business Process Architect Name Role Phone Unavailable Primary Care Provider Unavailabl e Encounter Details Date Type Department Care Team (Late st Contact Info) Description 03/31/2017 Abstract [facility] Medical Group Family & Internal Medicine [facility] [id number] [place] [phone] [place] [address] [place] [address] Social History Tobacco Use Types Packs/Day Years Used Date Smoking Tobacco: Never Assessed Comments Unknown Sex and Gender Information Value Date Recorded Sex Assigned at Not on file Legal Sex Female 8:14 PM CDT Gender Identity Not on file Sexual Orientation Not on file documented as of this encounter Last Filed Vital Signs Vital Sign Reading Time Taken Comments Blood Pressure 148/76 03/31/2017 1:55 PM LAB SPECIALIST Pulse 74 03/31/2017 1:55 PM LAB SPECIALIST Temperature - - Respiratory Rate - - Oxygen Saturation - - Inhaled Oxygen Concentration - - Weight 59 kg (130 lb) 03/31/2017 1:55 PM LAB SPECIALIST Height 157.5 cm (5' 2 ) 03/31/2017 1:55 PM LAB SPECIALIST Body Mass Index 23.78 03/31/2017 1:55 PM LAB SPECIALIST documented in this encounter Progress Notes * Noemi Barnard MD - 03/31/2017 2:00 PM CST Chief Complaint pt here today c/o left lower abd pain, bowel mov't changes x 4 months. right ear impaction Pt is here for follow up on the Colitis, she is now more constipated and would like to go over the results of the xray of abd History of Present Illness HPI Free Text: An 81-year-old female who had a history of recent diarrhea. It is unclear whether this was related to Janumet or colitis. The Janumet was stopped. Also the cost was too much for the patient, so she was placed on just 2 of the metformin ER in the evening with dinner. Since she has been on the tapering dose of prednisone, the diarrhea has stopped. She is down to 5 per day and has an appointment in about [address] Burrows to further evaluate. If he feels all is well, would go ahead and taper off the prednisone, 5 every other day for a week and then stop. Otherwise, her blood pressure is up a little. Sugar is likely up a little because of the prednisone. We will hold off on evaluating this for a month until she can normalize a bit, so we will have her follow up in 1 month with an A1c and ablood pressure check and decide how we are going to reevaluate. The other issue is the rash; nothing was done. No evaluation has been diagnostic and she continues to have this in her arms and legs. Review of Systems See HPI for pertinent positives. Constitutional: feeling tired. ENT: normal. Cardiovascular: Normal. Respiratory: Normal. Gastrointestinal: constipation and heartburn (diarrhea now resolved & pain LLQ resolved). Genitourinary: Normal. Integumentary: (Has had a continual rash; nothing has either given a final diagnosis or treatment). Musculoskeletal: joint stiffness. Neurological: Normal. Psychiatric: Normal. [...] TAKE 1 TABLET BY MOUTH DAILY; Therapy: 39Buj3706 to (Evaluate:95Jom2902) Requested for: 19Feb2017; Last Rx:19Feb2017 Ordered 2. Enalapril Maleate 20 MG Oral Tablet; TAKE 1 TABLET BY MOUTH DAILY DIRECTED; Therapy: 23Jan2014 to (Evaluate:56Xzq2761) Requested for: 23Feb2017; Last Rx:23Feb2017 Ordered 3. HydrOXYzine HCl - 25 MG Oral Tablet; TAKE 1 TABLET AT BEDTIME NEEDED; Therapy: 84Oil8505 to (Evaluate:28Feb2017) Requested for: 91Bto1240; Last Rx:45Glf7884 Ordered 4. Levothyroxine Sodium 50 MCG Oral [...] & PRN; Therapy: 23Jan2015 to (Evaluate:22Jul2015); Last Rx:96Hbi7082 Ordered 9. Pantoprazole Sodium 40 MG Oral Tablet Delayed Release; TAKE 1 TABLET BY MOUTH EVERY DAY; Therapy: 16Jan2014 to (Evaluate:06Jun2017) Requested for: 64Wvk6727; Last Rx:20Cgw8278 Ordered 10. Pravastatin Sodium 40 MG Oral Tablet; TAKE 1 TABLET BY MOUTH AT BEDTIME; Therapy: 30Apr2014 to (Evaluate:11Aug2017) Requested for: 12Feb2017; Last Rx:12Feb2017 Ordered 11. PredniSONE 5 MG Oral Tablet; 4 tabs days 1&2( 20 mg) then days 3-6= 2 tabs (10 MG) for 4 days, then days 7-10 =1.5 tabs (7.5 mg) for 4 days, then (see below); Therapy: 36Gga9813 to (Last Rx:85Gla1609) Ordered 12. TiZANidine HCl - 2 MG Oral Tablet; 1- 2 po HS PRN neck pain; Therapy: 55Ndc3792 to (Evaluate:09Feb2016) Requested for: 16Wds8218; Last Rx:83Xvd4860 Ordered Allergies 1. No Known Drug Allergies Vitals Recorded: 31Mar2017 01:55PM Temperature 97.6 F Heart Rate 74 Systolic 148 Diastolic 76 O2 Saturation 98 Height 5 ft 2 in Weight 130 lb BMI Calculated 23.78 BSA Calculated 1.59 Physical Exam Constitutional General [...] lymphadenopathy. Musculoskeletal Gait and station: Normal. Skin Skin and subcutaneous tissue: Abnormal. (Medial legs show a macular rash) Neurologic Cranial nerves: Cranial nerves II-XII intact. Psychiatric Judgment and insight: Normal. Mood and affect: Normal. Counseling The patient was counseled regarding diagnostic results, instructions for management, risk factor reductions, prognosis, patient and family education, impressions, risks and benefits of treatment options, importance of compliance with treatment and CT of the abdomen showed some pulmonary fibrosis. 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 No shortness of breath. Showsmoderate constipation. We discussed what to do for constipation. We will await Dr. Burrows's GI evaluation for further recommendations.. total time of encounter was 25 minutes. Assessment 1. Abdominal pain, chronic, left lower quadrant (789.04,338.29) (R10.32,G89.29) 2. Colitis (558.9) (K52.9) 3. Rash (782.1) (R21) 4. Diabetes mellitus (250.00) (E11.9) Plan Colitis 1. PredniSONE 5 MG Oral Tablet; TAKE 1 TABLET DAILY Rx By: Noemi Barnard; Dispense: 30 Days ; #:30 Tablet; Refill: 0; For: Colitis; HI = N; VerifiedTransmission to [facility] [id number]; Msg to Pharmacy: Cont. above: days 11-14 take 1 tab (5 mg) for 4 days, then days 15-21 take 1/2 tab (2.5 mg) daily.; Last Updated By: Rosalba Felder; 03/31/2017 2:37:20 PM 2. Follow-up visit in 2 months Outpatient Follow-up Status: Complete Done: 73Kut1645 Ordered; For: Colitis; Ordered By: Noemi Barnard Performed: Due: 14Apr2017; Last Updated By: Lianna Rousseau; 03/31/2017 3:05:36 PM Diabetes mellitus 3. Hemoglobin A1C ( HA1C ); Status:Active; Requested for:75Jxc4254; Perform:[facility]; Due:13Jun2017; Last Updated By:Kathleen Sanderson; 04/01/2017 10:08:09 PM;Ordered; For:Diabetes mellitus; Ordered By:Noemi Barnard; Rash 4. Dermatology Referral Outpatient For: Rash Status: Need Information - Financial Authorization Requested for: 74Iam1853 Ordered; For: Rash; Ordered By: Noemi Barnard Performed: Order Comments: rash has failed to respond to treatment Due: 14Apr2017 Discussion/Summary 1. Abdominal pain and colitis, improved with steroids. Await GI evaluation, taper steroids. 2. Rash has failed all conservative treatment. We will refer to derm for more definitive diagnosis and treatment recommendations. 3. Patient is diabetic and has been on steroids. We will wait until the GI makes recommendations. She is off this and will do a 2 to 3-month followup for an A1c and a blood pressure check. We will also check blood pressure to see how she is off the steroids; also, this has not resolved the rash. Follow up in 2 months or PRN. Signatures Electronically signed by : Noemi Barnard M.D.; Apr 03 2017 9:52AM LAB SPECIALIST (Author) documented in this encounter Plan of Treatment Not on file documented as of this encounter Visit Diagnoses Not on filedocumented in this encounter
--- OUTSIDE RECORDS SUMMARY | 2024-04-05 00:27 | XMS_ITS | Encounter Summary ---
Author Organization [facility] Address [facility] [facility] [place] [address] [place] [address] Care Team Providers Care Optometry Professor Name Role Phone Unavailable Primary Care Provider Unavailabl e Encounter Details Date Type Department Care Team (Late st Contact Info) Description 03/17/2017 Abstract [facility] Medical Group Family & Internal Medicine [facility] [id number] [place] [phone] [place] [id number] [place] [address] Social History Tobacco Use Types Packs/Day Years Used Date Smoking Tobacco: Never Assessed Comments Unknown Sex and Gender Information Value Date Recorded Sex Assigned at Not on file Legal Sex Female 8:14 PM CDT Gender Identity Not on file Sexual Orientation Not on file documented as of this encounter Last Filed Vital Signs Vital Sign Reading Time Taken Comments Blood Pressure 132/70 03/17/2017 2:44 PM INFORMATICS NURSE Pulse 74 03/17/2017 2:44 PM INFORMATICS NURSE Temperature - - Respiratory Rate - - Oxygen Saturation - - Inhaled Oxygen Concentration - - Weight 59.1 kg (130 lb 4 oz) 03/17/2017 2:44 PM INFORMATICS NURSE Height 157.5 cm (5' 2 ) 03/17/2017 2:44 PM INFORMATICS NURSE Body Mass Index 23.82 03/17/2017 2:44 PM INFORMATICS NURSE documented in this encounter Progress Notes * Noemi Jade MD - 03/17/2017 2:40 PM CST Chief Complaint pt here today c/o left lower abd pain, bowel mov't changes x 4 months. right ear impaction History of Present Illness HPI Free Text: An 81-year-old female who has been having some problems with abdominal pain on the left side. She has a known history of diverticulitis and has been having issues with diarrhea and fecal incontinence. She does not always tell when she has to go. She has been on metformin but thinks she was having the diarrhea problem before then. She had a CAT scan on December 03 which revealed moderate to large amount of stool in the colon, numerous diverticula without diverticulitis, possible mucosal thickeningat the junction of the anus and rectum. Patient states she has had multiple colonoscopies and does not want to do this again. She saw Dr. Burrows on 02/14/2015 and was found to have fecal impaction and had to manually disimpact, extensive left-sided diverticulitis, hemorrhoids, and the rest of the colon was negative. The other issue is she has fullness in her right ear. Has wax on her hearing aid and would like to have her ear cleaned out so the hearing aid works better. Review of Systems Constitutional: feeling tired. ENT: normal. Cardiovascular: Normal. Respiratory: Normal. Gastrointestinal: constipation, heartburn and diarrhea left lower quadrant pain. Genitourinary: Normal. Integumentary: (Has had a continual rash; nothing has either given a final diagnosis or treatment). Musculoskeletal: joint stiffness. Neurological: Normal. Psychiatric: Normal. Active Problems 1. Claudication (443.9) (I73.9) 2. Contact dermatitis (692.9) (L25.9) 3. Diabetes mellitus (250.00) (E11.9) 4. Diarrhea (787.91) (R19.7) 5. 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 Ear fullness (388.8) (H93.8X9) 7. Hyperlipidemia (272.4) (E78.5) 8. Hypertension (401.9) (I10) 9. Hypothyroidism (244.9) (E03.9) 10. Insomnia (780.52) (G47.00) 11. Lumbago (724.2) (M54.5) 12. Malignant neoplasm of breast (174.9) (C50.919) 13. Rash (782.1) (R21) 14. Urinary frequency (788.41) (R35.0) 15. Vitamin D deficiency (268.9) (E55.9) Past Medical [...] No alcohol use Immunizations Influenza --- Series1: 07-Jan-2015; Series2: 09-Jan-2016 Current Meds 1. AmLODIPine Besylate 5 MG Oral Tablet; TAKE 1 TABLET BY MOUTH DAILY; Therapy: 42Iwm3551 to (Evaluate:59Msv6926) Requested for: 19Feb2017; Last Rx:19Feb2017 Ordered 2. Enalapril Maleate 20 MG Oral Tablet; TAKE 1 TABLET BY MOUTH DAILY DIRECTED; Therapy: 23Jan2014 to (Evaluate:57Qln5573) Requested for: 23Feb2017; Last Rx:23Feb2017 Ordered 3. HydrOXYzine HCl - 25 MG Oral Tablet; TAKE 1 TABLET AT BEDTIME NEEDED; Therapy: 19Amj1447 to (Evaluate:28Feb2017) Requested for: 97Ufx8551; Last Rx:81Sls1269 Ordered 4. Levothyroxine Sodium 50 MCG Oral [...] & PRN; Therapy: 23Jan2015 to (Evaluate:22Jul2015); Last Rx:48Fca9982 Ordered 9. Pantoprazole Sodium 40 MG Oral Tablet Delayed Release; TAKE 1 TABLET BY MOUTH EVERY DAY; Therapy: 16Jan2014 to (Evaluate:06Jun2017) Requested for: 82Utn5111; Last Rx:21Xtc0806 Ordered 10. Pravastatin Sodium 40 MG Oral Tablet; TAKE 1 TABLET BY MOUTH AT BEDTIME; Therapy: 30Apr2014 to (Evaluate:11Aug2017) Requested for: 12Feb2017; Last Rx:12Feb2017 Ordered 11. TiZANidine HCl - 2 MG Oral Tablet; 1- 2 po HS PRN neck pain; Therapy: 11Nov2015 to (Evaluate:09Feb2016) Requested for: 88Xlc8273; Last Rx:77Icx0167 Ordered Allergies 1. No Known Drug Allergies Vitals Recorded: 17Mar2017 02:44PM Temperature 97.6 F Heart Rate 74 Respiration 20 Systolic 132 Diastolic 70 O2 Saturation 97 Height 5 ft 2 in Weight 130 lb 4 oz BMI Calculated 23.82 BSA Calculated 1.59 Physical Exam Constitutional General [...] The abdomen was flat. Bowel sounds were high pitched. The abdomen was soft. There was mild tenderness. tenderness in the left lower quadrant. No rebound tenderness. No guarding. Liver and spleen: No hepatomegaly or splenomegaly. Lymphatic Palpation of lymph nodes in neck: No lymphadenopathy. Musculoskeletal Gait and station: Normal. Skin Skin and subcutaneous tissue: Abnormal. (Medial legs show a macular rash) Neurologic Cranial nerves: Cranial nerves II-XII intact. Psychiatric Judgment and insight: Normal. Mood and affect: Normal. Results/Data 17 Mar 2017 4:18 PM XR ABDOMEN OBSTRUCTION SERIES XR ABDOMEN OBSTRUCTION SERIES Assessment 1. Abdominal pain, chronic, left lower quadrant (789.04,338.29) (R10.32,G89.29) 2. Ear fullness (388.8) (H93.8X9) 3. Colitis (558.9) (K52.9) Plan Abdominal pain, chronic, left lower quadrant 1. XR ABDOMEN OBSTRUCTION SERIES; Status:Complete; Done: 26Qhh8864 04:18PM Performed:[facility]; Due:16Apr2017;Ordered; For:Abdominal pain, chronic, left lower quadrant; Ordered By:Noemi Jade; Colitis 2. Follow-up visit in 2 weeks Outpatient Follow-up Status: Complete Done: 84Iyb8947 Ordered; For: Colitis; Ordered By: Noemi Jade Performed: Due: 15Eoh3173; Last Updated By: Lianna Rousseau; 03/18/2017 9:26:11 AM Discussion/Summary Abdominal pain, left lower quadrant with history of fecal impaction and constipation. Suspect she may have stool bolus and having diarrhea around this making her think she has diarrhea. We will checka KUB to assess whether this is the issue. Will stop the metformin for 2 weeks, stop the omeprazolefor 2 weeks. We will treat with prednisone and have her follow up to see if there is a significant improvement. If not, would recommend she see Dr. Burrows to assess the area of thickening at the rectal vault. Would also lavage the right ear. Follow up in 2 weeks; otherwise, RTO if worse or not better. Signatures Electronically signed by : Noemi Jade M.D.; Mar 26 2017 2:55PM INFORMATICS NURSE (Author) documented in this encounter Plan of Treatment Not on file documented as of this encounter Procedures Procedure Name Priority Date/Time Associated Diagnosis Comments XR ABD SERIES W CHEST 1V Routine 03/17/2017 4:18 PM INFORMATICS NURSE documented in this encounter Results * XR ABD SERIES W CHEST 1V (03/17/2017 4:18 PM INFORMATICS NURSE) Anatomical Region Laterality Modality Abdomen, Chest Radiographic Lacy ging 03/17/2017 4:18 PM INFORMATICS NURSE 03/17/2017 4:18 PM INFORMATICS NURSE Narrative 03/17/2017 4:24 PM INFORMATICS NURSE ROXANA CH ? ADMIT/SERVICE DATE: 03/17/17 ?? ACCT: [id number] ?DISCHARGE DATE: ?? : 1935 ??SEX: F ?ORD SITE: [facility] ?? PT TYPE: REG CLI ? ORDERING MD: NOEMI JADE MD ? STUDY DATE ? REPORT # ?ORDER # ? EXT ORDER ID ?? 03/17/17 ? [id number] ? [id number] ?[id number] ? PROC CODE: ? ABDOBSTRCT ? PROCEDURE DESCRIPTION: ?? XR ABDOMEN OBSTRUCTION SERIES ? EXAMINATION: XR ABDOMEN OBSTRUCTION SERIES ? EXAM DATE/TIME: 03/17/2017 4:03 PM. ? CLINICAL HISTORY: OTHER - ABDOMINAL PAIN, CHRONIC LLQ PAIN ??. ? COMPARISON: NO COMPARISON. ? TECHNIQUE: 2 VIEWS. ? IMPRESSION: ? ATHEROSCLEROTIC AORTA WITH NORMAL HEART SIZE. ? 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 ? CHRONIC CHANGES PRESENT WITHIN THE SPINE AND SHOULDERS. ? UNREMARKABLE BOWEL PATTERN WITH MODERATE AMOUNT OF FECAL MATERIAL PRESENT WITHIN THE COLON. ? ELECTRONICALLY SIGNED BY JANE REEVES MD ON 03/17/2017 4:19 PM ? Procedure Note Rhianna Abreu MD - 01/26/2018 ROXANA CH ADMIT/SERVICE DATE:03/17/17 ACCT: [id number] DISCHARGE DATE: : 1935 SEX: F ORD SITE: [facility] PT TYPE: REG CLI ORDERING MD:NOEMI JADE MD STUDY DATE REPORT # ORDER # EXT ORDER ID 03/17/17 [id number] PROC CODE: ABDOBSTRCT PROCEDURE DESCRIPTION: XR ABDOMEN OBSTRUCTION SERIES EXAMINATION: XR ABDOMEN OBSTRUCTION SERIES EXAM DATE/TIME: 03/17/2017 4:03 PM. CLINICAL HISTORY: OTHER - ABDOMINAL PAIN, CHRONIC LLQ PAIN . COMPARISON: NO COMPARISON. TECHNIQUE: 2 VIEWS. 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 CHRONIC CHANGES PRESENT WITHIN THE SPINE AND SHOULDERS. UNREMARKABLE BOWEL PATTERN WITH MODERATE AMOUNT OF FECAL MATERIAL PRESENTWITHIN THE COLON. ELECTRONICALLY SIGNED BY JANE REEVES MD ON 03/17/2017 4:19 PM us Noemi Jade MD GENERAL IMAGING Final Result documented in this encounter Visit Diagnoses Not on filedocumented in this encounter
--- OUTSIDE RECORDS SUMMARY | 2024-04-05 00:27 | XMS_ITS | Encounter Summary ---
Author Organization [facility] Address [facility] [facility] [place] [address] [place] [address] Care Team Providers Care Academic Affairs Director Name Role Phone Unavailable Primary Care Provider Unavailabl e Encounter Details Date Type Department Care Team (Latest Contact Info) Description 11/17/2017 Abstract [facility] , Rhianna Castaneda MD [...] Priority Date/Time Associated Diagnosis Comments MG SCREENING KARLA DIGI Routine 11/11/2017 12:00 AM CDT documented in this encounter Results * MG SCREENING KARLA DIGI (11/11/2017 12:00 AM CDT) Anatomical Region Laterality Modality Breast Bilateral Mammography 11/11/2017 11/11/2017 Narrative 11/17/2017 10:43 AM CDT Birads 2 Procedure Note Rhianna Abreu MD - 02/12/2018 Birads 2 us Noemi Barnard MD MAMMO Final Result documented in this encounter Visit Diagnoses Not on filedocumented in this encounter
--- OUTSIDE RECORDS SUMMARY | 2024-04-05 00:27 | XMS_ITS | Encounter Summary ---
Author Organization [facility] Address [address] [place] [address]. [place], [place] [address] [place] [address] Care Team Providers Care Building Mover Name Role Phone Unavailable Primary Care Provider Unavailabl e Encounter Details Date Type Department Care Team (Latest Contact Info) Description 11/11/2015 Abstract [facility] Medical Group Social History Tobacco Use Types Packs/Day Years Used Date Smoking Tobacco: Never Assessed Comments Unknown Sex and Gender Information Value Date Recorded Sex Assigned at Not on file Legal Sex Female 8:14 PM CDT Gender Identity Not on file Sexual Orientation Not on file documented as of this encounter Progress Notes * Rhianna Castaneda Md, MD - 11/11/2015 9:34 AM CDT Message Recorded as Task Date: 11/10/2015 12:27 PM, Created By: Noemi Barnard Task Name: Call Patient with results Assigned To: Noemi Barnard Regarding Patient: Roxana Ch, Status: Active Comment: Noemi Barnard - 10 Nov 2015 12:27 PM Patient carotid doppler only minimal narrowing Thania James - 11 Nov 2015 9:34 AM TASK EDITED pt called and informed of results, pt v/u Signatures Electronically signed by : Thania James, ; Nov 11 2015 9:34AM FIBREGL[employer] GUN [employer] (Author) documented in this encounter Plan of Treatment Not on file documented as of this encounter Visit Diagnoses Not on filedocumented in this encounter
--- OUTSIDE RECORDS SUMMARY | 2024-04-05 00:27 | XMS_ITS | Encounter Summary ---
Author Organization [facility] Address [address] [place] [address]. [place], [place] [address] [place] [address] Care Team Providers Care [place] Aide Name Role Phone Unavailable Primary Care Provider Unavailabl e Encounter Details Date Type Department Care Team (Latest Contact Info) Description 03/18/2017 Abstract [facility] , Generic Conversion, Social History Tobacco Use Types Packs/Day Years Used Date Smoking Tobacco: Never Assessed Comments Unknown Sex and Gender Information Value Date Recorded Sex Assigned at Not on file Legal Sex Female 8:14 PM CDT Gender Identity Not on file Sexual Orientation Not on file documented as of this encounter Progress Notes * Generic Conversion MD Brady - 03/18/2017 4:59 PM CST Message Recorded as Task Date: 03/18/2017 04:59 PM, Created By: Noemi Jade Task Name: Call Patient with results [facility] Nurse Team Regarding Patient: Roxana Ritchie, Status: In Progress Comment: Noemi Jade - 18 Mar 2017 4:59 PM Patient X-ray looks ok but I would have her see Dr Burrows again to see if she has inlammation of the lower colon Bianca Larson - 18 Mar 2017 5:34 PM TASK REASSIGNED: Previously Assigned To Noemi Jade Susan - 19 Mar 2017 3:21 PM TASK EDITED Called pt LMOM to return call for results. Martha Herrera - 19 Mar 2017 3:21 PM TASK IN PROGRESS Jovana Edgar - 22 Mar 2017 10:13 AM TASK EDITED pt called in, informed results, pt v/u and states she will call dr burrows to schedule an appt. Signatures Electronically signed by : Jovana Edgar, ; Mar 22 2017 10:13AM CAFE SERVER (Author) * Noemi Jade MD - 03/18/2017 4:59 PM CST Verified Results XR ABDOMEN OBSTRUCTION SERIES [id number] 04:18PM Noemi Jade Test Name Result Flag Reference XR ABDOMEN OBSTRUCTION SERIES (Report) ROXANA RITCHIE ADMIT/SERVICE DATE: 03/17/17 ACCT: [id number] DISCHARGE DATE: : 1935 SEX: F ORD SITE: [facility] PT TYPE: REG CLI ORDERING MD: NOEMI JADE MD STUDY DATE REPORT # ORDER # EXT ORDER ID 03/17/17 [id number] PROC CODE: ABDOBSTRCT PROCEDURE DESCRIPTION: XR ABDOMEN OBSTRUCTION SERIES EXAMINATION: XR ABDOMEN OBSTRUCTION SERIES EXAM DATE/TIME: 03/17/2017 4:03 PM. CLINICAL HISTORY: OTHER - ABDOMINAL PAIN, CHRONIC LLQ PAIN . COMPARISON: NO COMPARISON. TECHNIQUE: 2 VIEWS. 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 CHRONIC CHANGES PRESENT WITHIN THE SPINE AND SHOULDERS. UNREMARKABLE BOWEL PATTERN WITH MODERATE AMOUNT OF FECAL MATERIAL PRESENT WITHIN THE COLON. ELECTRONICALLY SIGNED BY JANE REEVES MD ON 03/17/2017 4:19 PM * Rhianna Castaneda Md, MD - 03/18/2017 2:29 PM CST Message Recorded as Task Date: 03/17/2017 05:05 PM, Created By: Jovana Edgar Task Name: Medical Complaint Callback Ass[facility] Nurse Team Regarding Patient: Roxana Ritchie, Status: Active Comment: Jovana Edgar - 17 Mar 2017 5:05 PM TASK CREATED Pharmacy called stating that they were confused about the directions on the prednisone. please advise. Jovana Edgar - 17 Mar 2017 5:05 PM TASK REASSIGNED: Previously Assigned To [facility] Nurse Team Martha Herrera - 18 Mar 2017 9:47 AM TASK EDITED Called Lorenzo at [facility]. Told him I would have to ask Dr Franklin to get clarification. Martha Herrera - 18 Mar 2017 2:[address] Franklin clarified rx and I called it in to Lorenzo at [facility]. Plan 1. PredniSONE 5 MG Oral Tablet; 4 tabs days 1&2( 20 mg) then days 3-6= 2 tabs (10 MG) for 4 days, then days 7-10 =1.5 tabs (7.5 mg) for 4 days, then (see below) Rx By: Noemi Jade; Dispense: 0 Days ; #:31 Tablet; Refill: 0; For: Colitis; HI = N; Call Rx; Msg to Pharmacy: Cont. above: days 11-14 take 1 tab (5 mg) for 4 days, then days 15-21 take 1/2 tab (2.5 mg) daily.; Last Updated By: Martha Herrera; 03/18/2017 2:41:12 PM Signatures Electronically signed by : Martha Herrera R.N.; Mar 18 2017 2:42PM CAFE SERVER (Author) documented in this encounter Plan of Treatment Not on file documented as of this encounter Visit Diagnoses Not on filedocumented in this encounter
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
--- OUTSIDE RECORDS SUMMARY | 2024-04-05 00:28 | XMS_ITS | Encounter Summary ---
Author Organization [facility] Address [address] [place] [address]. [place], [place] [address] [place] [address] Care Team Providers Care Sandwich Hand Name Role Phone Unavailable Primary Care Provider Unavailabl e Encounter Details Date Type Department Care Team (Latest Contact Info) Description 05/28/2015 Abstract [facility] Social History Tobacco Use Types Packs/Day Years Used Date Smoking Tobacco: Never Assessed Comments Unknown Sex and Gender Information Value Date Recorded Sex Assigned at Not on file Legal Sex Female 8:14 PM CDT Gender Identity Not on file Sexual Orientation Not on file documented as of this encounter Progress Notes * Generic Conversion MD Brady - 05/28/2015 4:42 PM CST Message Recorded as Task Date: 05/27/2015 03:18 PM, Created By: Noemi Barnard Task Name: Call Patient with results [facility] Nurse Team Regarding Patient: Roxana Ch, Status: In Progress Comment: Noemi Barnard - 27 May 2015 3:18 PM Patient labs about the same will discuss further at her July appt Bianca Larson - 28 May 2015 2:38 PM TASK REASSIGNED: Previously Assigned To Noemi Barnard Holly - 28 May 2015 4:42 PM TASK IN PROGRESS Bianca Larson - 28 May 2015 4:42 PM TASK EDITED pt informed of results and instr pt Dr Franklin will go over labs at July appt. Pt verbalized understanding of instr. Signatures Electronically signed by : Bianca Larson MA; May 28 2015 4:42PM TITLE CHECKER (Author) documented in this encounter Plan of Treatment Not on file documented as of this encounter Visit Diagnoses Not on filedocumented in this encounter
--- OUTSIDE RECORDS SUMMARY | 2024-04-05 00:28 | XMS_ITS | Encounter Summary ---
Author Organization [facility] Address [address] [place] [address]. [place] [address] [place] [address] Care Team Providers Care Business Functional Analyst Name Role Phone Unavailable Primary Care Provider Unavailabl e Encounter Details Date Type Department Care Team (Latest Contact Info) Description 05/27/2015 Abstract [facility] Medical Group Social History Tobacco Use Types Packs/Day Years Used Date Smoking Tobacco: Never Assessed Comments Unknown Sex and Gender Information Value Date Recorded Sex Assigned at Not on file Legal Sex Female 8:14 PM CDT Gender Identity Not on file Sexual Orientation Not on file documented as of this encounter Progress Notes * Noemi Barnard MD - 05/27/2015 3:18 PM CST Verified Results CBC W Differential [id number] 08:53AM Noemi Barnard Test Name Result Flag Reference White Blood Cell Count (WBC) 3.3 x10'3/uL L 4.4-11.0 Red Blood Cell Count (RBC) 4.27 x10'6/uL L 4.50-5.10 Hemoglobin (HGB) 12.2 G/DL L 12.3-15.3 Hematocrit (HCT) 37.0 % 35.9-44.6 Mean Corpuscular Volume (MCV) 86.7 FL 80.0-96.0 Mean Corpuscular Hgb (MCH) 28.6 PG 25.3-30.9 Mean Corpuscular Hgb Conc (MCH 33.0 G/DL 31.0-34.1 Red Cell Distrib Width (RDW) 13.8 % 12.4-15.1 Platelet Count (PLT) 180 x10'3/uL 151-353 Mean Platelet Volume (MPV) 10.3 FL 9.6-12.0 Neutrophils % (Auto) 66.8 % 42.1-71.9 Lymphocytes % (Auto) 19.4 % 15.8-45.0 Basophils % (Auto) 0.9 % 0.0-1.3 Eosinophils % (Auto) 3.4 % 0.0-5.6 Monocytes % (Auto) 9.2 % 5.7-12.5 Immature Granulocytes 0.3 % 0.0-0.5 Total Absolute Neutrophils 2.20 x10'3/uL 1.40-6.00 Platelet Evaluation NORMAL RBC Morphology NORMAL WBC Morphology NORMAL Compr Metabolic Prof ( CMP ) 27May2015 08:53AM Noemi Barnard Test Name Result Flag Reference Glucose 93 MG/DL 83-110 Blood Urea Nitrogen (BUN) 17 MG/DL 9.8-20.1 Creatinine 0.79 MG/DL 0.57-1.11 Sodium (Na) 146 MMOL/L H 136-145 Potassium (K) 4.0 MMOL/L 3.5-5.1 Chloride (Cl) 109 MMOL/L H 98-107 Carbon Dioxide (CO2) 26.0 MMOL/L 23-31 Anion Gap 15.0 MMOL/L 10.0-24.0 Osmolality Calc 292 MOSM/KG H 271-290 Calcium 9.6 MG/DL 8.4-10.2 Total Bilirubin 0.6 MG/DL 0.2-1.2 Total Protein 6.3 G/DL L 6.4-8.3 Albumin 3.8 G/DL 3.4-4.8 AST/GOT 15 UNITS/L 5-34 ALT/GPT 9 UNITS/L 6-55 Alkaline Phosphatase (ALKP) 76 UNITS/L 30-130 BUN Creatinine Ratio 21.5 6.0-26.0 A:G Ratio 1.5 RATIO 1.1-1.9 Glomerular Filt Rate Calc (Report) >60 >60 GFR Reference Range: Kidney Failure - <15mL/min Chronic Kidney Disease - <60mL/min Normal Kidney Function - >60mL/min GFR calculation is not recommended for Patients less than 18 years or greater than 70 years as per the national Kidney Foundation. If the patient is -Belarusian, multiply results by 1.21 TSH W Reflex Free T4 27May2015 08:53AM Noemi Barnard Test Name Result Flag Reference TSH w Reflex Free T4 0.45 uIU/mL 0.35-4.94 FREE T4 NOT INDICATED Urine Microalbumin [id number] 08:53AM Noemi Barnard Test Name Result Flag Reference Urine Microalbumin <0.5 mg/dL <30.0 documented in this encounter Plan of Treatment Not on file documented as of this encounter Visit Diagnoses Not on filedocumented in this encounter
--- OUTSIDE RECORDS SUMMARY | 2024-04-05 00:28 | XMS_ITS | Encounter Summary ---
Author Organization [facility] Address [facility] [facility] [place] [address] [place] [address] Care Team Providers Care Career Development Associate Name Role Phone Unavailable Primary Care Provider Unavailabl e Encounter Details Date Type Department Care Team (Latest Contact Info) Description 03/08/2015 Abstract [facility] Medical Group Social History Tobacco Use Types Packs/Day Years Used Date Smoking Tobacco: Never Assessed Comments Unknown Sex and Gender Information Value Date Recorded Sex Assigned at Not on file Legal Sex Female 8:14 PM CDT Gender Identity Not on file Sexual Orientation Not on file documented as of this encounter Progress Notes * Generic Conversion MD Brady - 03/08/2015 1:15 PM CST Message Recorded as Task Date: 03/06/2015 05:24 PM, Created By: Noemi Barnard Task Name: Informational [facility] Nurse Team Regarding Patient: Roxana Ch, Status: Active Comment: Noemi Barnard - 06 Mar 2015 5:24 PM TASK CREATED Please call & see how she is doing with her bowels, I reviewed her medications and Taztia can cause a lot of constipation so I would like to switch this to Amlodipine 5 mg & stop the Taztia. Will see if this helps. FU in 1 mo for B/P check & see if things are better. Bianca Larson - 07 Mar 2015 5:57 PM TASK EDITED lmtcb re how she is feeling and about med Bianca Larson - 07 Mar 2015 5:57 PM TASK IN PROGRESS Malgorzata Tirado - 08 Mar 2015 9:28 AM TASK EDITED Spoke with pt regarding the message. Pt will stop taking her Taztia today and start taking the Amlodipine. She is scheduled for a follow up on 04/10/14. Signatures Electronically signed by : Le Rea, ; Mar 08 2015 1:15PM TECHNICAL TRAINER (Author) documented in this encounter Plan of Treatment Not on file documented as of this encounter Visit Diagnoses Not on filedocumented in this encounter
--- OUTSIDE RECORDS SUMMARY | 2024-04-05 00:28 | XMS_ITS | Encounter Summary ---
Author Organization [facility] Address [address] [place] [address]. [place], [place] [address] [place] [address] Care Team Providers Care Ecommerce Project Manager Name Role Phone Unavailable Primary Care Provider Unavailabl e Encounter Details Date Type Department Care Team (Latest Contact Info) Description 02/15/2015 Abstract [facility] Medical Group , Rhianna Castaneda MD Social History Tobacco Use Types Packs/Day Years Used Date Smoking Tobacco: Never Assessed Comments Unknown Sex and Gender Information Value Date Recorded Sex Assigned at Not on file Legal Sex Female 8:14 PM CDT Gender Identity Not on file Sexual Orientation Not on file documented as of this encounter Procedure Notes * Noemi Barnard MD - 02/14/2015 8:06 AM CST [place] [address] Patient: ROXANA RITCHIE Med Rec#: [id number] Birthdate: 1935 Admit/Svce Date: 02/14/2015 Disch Date: Attending Md: NABILA BURROWS MD CHART DOCUMENT OPERATION RECORD DATE OF OPERATION: 02/14/2015 History: 79-year-old female. Patient with abnormal thickening of the rectum seen on CT scan. Also fecal impaction. Abdominal pain. Procedure: Colonoscopy 02/14/15 Informed consent obtained earlier. Patient was seen in the OR, placed in the supine lateral decubitus position. Sedation under MAC anesthesia. Rectal exam is negative. CF-190 colonoscope lubricated and inserted into the rectum, advanced all the way to the cecum. Cecum was identified by the ileocecal valve and the appendiceal orifice. Prep was generally excellent. Irrigation was undertaken with water. Cecum, ascending colon was carefully examined multiple times and found to be normal. Transverse colon looked normal. Descending and sigmoid contained extensive diverticulosis. In the rectum, there was a fecal impaction which was manually disimpacted. Retroflexion revealed just moderate hemorrhoids. Findings: 1. Fecal impaction, manual disimpaction. 2. Extensive left-sided diverticulosis. 3. Hemorrhoids. 4. Rest of the colonoscopy is negative. Plan: Given follow-up from yesterday, I am going to empirically treat her with Cipro 500 b.i.d. for 5 days for bacterial overgrowth. Will also start her on Pancrelipase pancreatic supplements with meals. She is found to have an atrophic pancreas on CT scan and she may have some insufficiency. Electronically Signed by Nabila Burrows MD 02/15/2015 10:00 A PK/sp 02/14/201508:06 A 02/15/2015 08:42 A Job No: [id number] Doc No: [id number] cc: Noemi Barnard MD documented in this encounter Plan of Treatment Not on file documented as of this encounter Visit Diagnoses Not on filedocumented in this encounter
--- OUTSIDE RECORDS SUMMARY | 2024-04-05 00:28 | XMS_ITS | Encounter Summary ---
Author Organization [facility] Address [address] [place] [address]. [place], [place] [address] [place] [address] Care Team Providers Care Director Of Retail Analytics Name Role Phone Noemi Barnard MD Primary Care Provider [phone] Encounter Details Date Type Department Care Team (Late st Contact Info) Description 05/27/2015 Abstract [facility] [address] [place], [place] [id number] [place] [address] [place], [place] [id number] Social History Tobacco Use Types Packs/Day Years [...] uncontrolled documented in this encounter Care Teams Director Of Retail Analytics Relationship Specialty Start Date End Date Noemi Barnard MD PCP - General INTERNAL MEDICINE 02/22/18 07/03/18 documented as of this encounter
--- OUTSIDE RECORDS SUMMARY | 2024-04-05 00:28 | XMS_ITS | Encounter Summary ---
Author Organization [facility] Address [facility] [place] [address] [place] [address] Care Team Providers Care Air Crew Member Name Role Phone Unavailable Primary Care Provider Unavailabl e Encounter Details Date Type Department Care Team (Late st Contact Info) Description 07/08/2015 Abstract [facility] Medical Group Family & Internal Medicine [facility] [address] [place] [address] [place] [address] [place] [address] Social History Tobacco Use Types Packs/Day Years Used Date Smoking Tobacco: Never Assessed Comments Unknown Sex and Gender Information Value Date Recorded Sex Assigned at Not on file Legal Sex Female 8:14 PM CDT Gender Identity Not on file Sexual Orientation Not on file documented as of this encounter Last Filed Vital Signs Vital Sign Reading Time Taken Comments Blood Pressure 130/70 07/08/2015 12:20 PM CDT Pulse 70 07/08/2015 12:20 PM CDT Temperature - - Respiratory Rate - - Oxygen Saturation - - Inhaled Oxygen Concentration - - Weight 54 kg (119 lb) 07/08/2015 12:20 PM CDT Height 157.5 cm (5' 2 ) 07/08/2015 12:20 PM CDT Body Mass Index 21.77 07/08/2015 12:20 PM CDT documented in this encounter Progress Notes * Noemi Barnard MD - 07/08/2015 11:30 AM CDT Reason For Visit Acute Visit Chief Complaint discuss labs, brown area on body that pt states it is eczema and raised area under left arm History of Present Illness Rash (Brief): The patient is being seen for an initial evaluation of this episode of a rash. The patient presents with complaints of gradual onset of intermittent episodes of moderate bilateral leg localized rash. Her symptoms are caused by no known event. Symptoms are improved by barrier creams. Symptoms are made worse by itch- scratch cycle. Symptoms are worsening. Review of Systems Constitutional: as noted in HPI and fatigue. Head and Face: negative. Eyes: negative. ENT: decreased hearing and right ear plugged and nasal congestion. Cardiovascular: negative. Respiratory: negative. Gastrointestinal: negative. Musculoskeletal: joint stiffness. Integumentary negative. Psychiatric: negative. Neurological tingling. Active Problems 1. Abdominal pain (789.00) (R10.9) 2. Abnormal mammogram (793.80) (R92.8) 3. Constipation (564.00) (K59.00) 4. Diabetes mellitus (250.00) (E11.9) 5. Fecal impaction (560.32) (K56.41) 6. GERD (gastroesophageal reflux disease) (530.81) (K21.9) 7. History of breast cancer (V10.3) (Z85.3) 8. Hyperlipidemia (272.4) (E78.5) 9. Hypertension (401.9) (I10) 10. Impacted cerumen of right ear (380.4) (H61.21) 11. Insomnia (780.52) (G47.00) 12. Melena (578.1) (K92.1) 13. Screening mammogram for high-risk patient (V76.11) (Z12.31) 14. Vitamin d deficiency (268.9) (E55.9) Past Medical History 1. History of arthritis (V13.4) (Z87.39) 2. History of malignant neoplasm of breast (V10.3) [...] ML Intramuscular Suspension Prefilled Syringe --- Series1: 51Ikf3683 Current Meds 1. AmLODIPine Besylate 5 MG Oral Tablet; TAKE 1 TABLET BY MOUTH DAILY; Therapy: 84Txw2092 to (Evaluate:52Kpp1280) Requested for: 29Apr2015; Last Rx:29Apr2015 Ordered 2. Enalapril Maleate 20 MG Oral Tablet; TAKE 1 TABLET TWICE DAILY; Therapy: 23Jan2014 to Recorded 3. Janumet 50-500 MG Oral Tablet; TAKE ONE TABLET BY MOUTH TWICE DAILY WITH MEALS; Therapy: 50Ocd5643 to (Evaluate:14Sep2015) Requested for: 60Hbn7438; Last Rx:32Wmz8565 Ordered 4. Levothyroxine Sodium 75 MCG Oral Tablet; TAKE 1 TABLET BY MOUTH DAILY; Therapy: 30Apr2014 to (Evaluate:43Prv7189) Requested for: 24Apr2015; Last Rx:24Apr2015 Ordered 5. OneTouch Ultra Blue In Vitro Strip; 1 Strip 3X/weekly & PRN; Therapy: 23Jan2015 to (Evaluate:10Exj8792); Last Rx:80Gbg1122 Ordered 6. Pantoprazole Sodium 40 MG Oral Tablet Delayed Release; TAKE 1 TABLET DAILY; Therapy: 16Jan2014 to (Evaluate:50Ila7825) Requested for: 23Jan2015; Last Rx:[id number] Ordered 7. Pravastatin Sodium 40 MG Oral Tablet; TAKE ONE TABLET BY MOUTH AT BEDTIME; Therapy: 30Apr2014 to (Evaluate:84Voj4399) Requested for: 19Jun2015; Last Rx:19Jun2015 Ordered 8. TraZODone HCl - 50 MG Oral Tablet; TAKE 1 TABLET Bedtime; Therapy: 26Jun2014 to (Evaluate:51Nxd5722) Recorded Allergies 1. No Known Drug Allergies Vitals Recorded: 35Vyb5110 12:20PM Heart Rate 70 Systolic 130 Diastolic 70 O2 Saturation 98 Height 5 ft 2 in Weight 119 lb BMI Calculated 21.77 BSA Calculated 1.53 Physical Exam Constitutional General appearance: No acute distress, well appearing and well nourished. Head and Face Head and face: Normal. Eyes Conjunctiva and lids: No swelling, erythema or discharge. Ears, Nose, Mouth, and Throat External inspection of ears and nose: Normal. Oropharynx: Abnormal. (Clear secretions ) Neck Neck: [...] subcutaneous tissue: Normal without rashes or lesions. Examination of the skin for lesions: Abnormal. (rash on both of her legs) Neurologic Cranial nerves: Cranial nerves II-XII intact. [...] remote memory: Intact. Mood and affect: Normal. Counseling The patient was counseled regarding diagnostic results, instructions for management, prognosis, patient and family education, impressions, risks and benefits of treatment options, importance of compliance with treatment and labs reviewed but not bad, A1c is 6.0 discussed treatment recommendations for preventive medicine & skin care. Assessment 1. Rash, skin (782.1) (R21) 2. History of Complete Colonoscopy Plan Rash, skin 1. MethylPREDNISolone Acetate 40 MG/ML Injection Suspension (Depo-Medrol) Rx By: Noemi Barnard; For: Rash, skin; Dose of 1 ML; Intramuscular; HI = N; Administered by: Malgorzata Tirado: 07/08/2015 12:49:00 PM; Last Updated By: Malgorzata Tirado; 07/08/2015 12:50:07 PM Signatures Electronically signed by : Noemi Barnard M.D.; Jul 21 2015 5:18AM QA INTERNSHIP (Author) documented in this encounter Plan of Treatment Not on file documented as of this encounter Procedures Procedure Name Priority Date/Time Associated Diagnosis Comments COLONOSCOPY Routine 02/14/2015 12:00 AM QA INTERNSHIP documented in this encounter Results * Colonoscopy (02/14/2015 12:00 AM QA INTERNSHIP) 02/14/2015 02/14/2015 Narrative [facility] TO EPIC CONVERSION - 02/14/2015 12:00 AM QA INTERNSHIP Documented hx of procedure Procedure Note , Generic ConversionMD - 02/06/2018 Documented hx of procedure us Generic Conversion Md BERMUDEZ GI PROCEDURE ORDERABLES Final Result [facility] TO EPIC CONVERSION documented in this encounter Visit Diagnoses Not on filedocumented in this encounter
--- OUTSIDE RECORDS SUMMARY | 2024-04-05 00:28 | XMS_ITS | Encounter Summary ---
Author Organization [facility] Address [address] [place] [address]. [place] [address] [place] [address] Care Team Providers Care Edge Kitter Name Role Phone Unavailable Primary Care Provider Unavailabl e Encounter Details Date Type Department Care Team (Latest Contact Info) Description 03/13/2015 Abstract [facility] Medical Group Social History Tobacco Use Types Packs/Day Years Used Date Smoking Tobacco: Never Assessed Comments Unknown Sex and Gender Information Value Date Recorded Sex Assigned at Not on file Legal Sex Female 8:14 PM CDT Gender Identity Not on file Sexual Orientation Not on file documented as of this encounter Progress Notes * Generic Conversion MD Brady - 03/13/2015 3:00 PM CST Message Recorded as Task Date: 03/13/2015 09:49 AM, Created By: Noemi Hoffman Task Name: Call Back Assigned To: [facility] Nurse Team Regarding Patient: Roxana Ch, Status: Active Comment: Noemi Hoffman - 13 Mar 2015 9:49 AM TASK CREATED Caller: Self; pt states she was prescribed a new HTN med, Amlodipine. pt states she was taking Enalapril along with her previous b/p med so she is wondering if she is supposed to be taking a supplemental med with this new HTN medication. please call her back to let her know if this new med is to be taken alone or not. Biacna Larson - 13 Mar 2015 3:00 PM TASK EDITED CALLED PT INFORMED HER THAT SHE IS DC THE TAZTIA XT AND REPLACE WITH AMLODIPINE AND CONT ENALAPRIL,PT VERBALIZED UNDERSTANDING OF INSTR. Signatures Electronically signed by : Bianca Larson, ; Mar 13 2015 3:00PM POWDER GUARD (Author) documented in this encounter Plan of Treatment Not on file documented as of this encounter Visit Diagnoses Not on filedocumented in this encounter
--- OUTSIDE RECORDS SUMMARY | 2024-04-05 00:28 | XMS_ITS | Encounter Summary ---
Author Organization [facility] Address [address] [place] [address]. [place] [address] [place] [address] Care Team Providers Care Director Of Rotc Name Role Phone Noemi Barnard MD Primary Care Provider [phone] Joni Mckeon MD Unavailable [phone] Martha Ruiz NP Primary Care Provider Noemi Gracia MD Primary Care Provider + [phone] Sandra Johnson RN Unavailable [phone] None, Provider Primary Care Provider Unavaila ble Encounter Details Date Type Department Care Team (Late st Contact Info) Description 06/07/2015 Abstract [facility] CONVERSION [address] [place] [address] , Generic Conversion, Social History [...] Rule Out 02/12/2020 02/12/2020 02/13/2020 8:51 AM PRODUCTION MACHINE TENDER COVID-19 Rule Out 04/16/2020 04/16/2020 04/17/2020 6:26 PM PRODUCTION MACHINE TENDER COVID-19 Rule Out 05/14/2021 05/14/2021 05/14/2021 11:02 AM PRODUCTION MACHINE TENDER documented as of this encounter Care Teams Director Of Rotc Relationship Specialty Start Date End Date Noemi Barnard MD PCP - General INTERNAL MEDICINE 02/22/18 07/03/18 Martha Ruiz, SPEECH AND DRAMA TEACHER [facility] [address] [place] [address] PCP - General NURSE PRACTITIONER 07/04/18 08/22/18 Noemi Barnard MD PCP - General INTERNAL MEDICINE 08/23/18 03/03/23 None, Provider, PCP - General UNKNOWN PHYSICIAN SPECIALTY 03/04/23 Joni Mckeon MD [facility]. [facility] [address] [place] [address] [place] Quenching Machine Operator CARDIOVASCULAR DISEASE 07/04/18 Sandra Johnson, RN [address] [place], [place] [address] Insurance Claim Representative (Ambulatory) REGISTERED NURSE 05/12/21 06/29/21 documented as of this encounter
--- OUTSIDE RECORDS SUMMARY | 2024-04-05 00:28 | XMS_ITS | Encounter Summary ---
Author Organization [facility] Address [address] [place] [address]. [place], [place] [address] [place] [address] Care Team Providers Care Water Pump Installer Name Role Phone Noemi Barnard MD Primary Care Provider [phone] Encounter Details Date Type Department Care Team (Late st Contact Info) Description 02/14/2015 Abstract [facility] [address] [place], [place] [id number] Christos Burrows MD [address] [address] Social History Tobacco Use Types Packs/Day Years [...] hemorrhage) documented in this encounter Care Teams Water Pump Installer Relationship Specialty Start Date End Date Noemi Barnard MD PCP - General INTERNAL MEDICINE 02/22/18 07/03/18 documented as of this encounter
--- OUTSIDE RECORDS SUMMARY | 2024-04-05 00:28 | XMS_ITS | Encounter Summary ---
Author Organization [facility] Address [address] [place] [address]. [place], [place] [address] [place] [address] Care Team Providers Care Chicle Grinder Feeder Name Role Phone Noemi Barnard MD Primary Care Provider [phone] Encounter Details Date Type Department Care Team (Late st Contact Info) Description 06/07/2015 Abstract [facility] [address] [place] [address] Yeison Atwood MD [address] [place] [address] Social History Tobacco Use Types Packs/Day Years [...] circumstances documented in this encounter Care Teams Chicle Grinder Feeder Relationship Specialty Start Date End Date Noemi Barnard MD PCP - General INTERNAL MEDICINE 02/22/18 07/03/18 documented as of this encounter
--- OUTSIDE RECORDS SUMMARY | 2024-04-05 00:28 | XMS_ITS | Encounter Summary ---
Author Organization [facility] Address [facility] hospital[facility]. [place], [place] [address] [place] [address] Care Team Providers Care Social Work Manager Name Role Phone Unavailable Primary Care Provider Unavailabl e Encounter Details Date Type Department Care Team (Latest Contact Info) Description 02/13/2015 Abstract [facility] Medical Group , Rhianna Castaneda [...] Procedure Notes * Noemi Barnard MD - 02/13/2015 9:32 AM CST [place] [address] Patient: ROXANA RITCHIE Med Rec#: [id number] Birthdate: 1935 Admit/Svce Date: 02/13/2015 Disch Date: Attending Md: NABILA BURROWS MD CHART DOCUMENT OPERATION RECORD DATE OF OPERATION: 02/13/2015 History: 79-year-old female comes to see me because of abdominal pain, weight loss, diarrhea, bloating. She now undergoes upper endoscopy. She also recently had a CT scan with contrast. Procedure Note: EGD with Biopsies. Informed consent obtained earlier. Patient was seen in the OR, placed in the supine lateral decubitus position. Sedation under MAC anesthesia. GIF-190 scope was then lubricated and inserted into the hypopharynx and advanced by direct technique. Upper, middle, distal esophagus looked normal. Stomach distended well. Retroflexed views of the cardia, fundus, angularis revealed no significant abnormalities. The mucosa throughout the body was cobblestoned, diffuse gastritis, mild. Several biopsies were therefore taken. Antrum looked normal. First part of the duodenum looked normal. In the second duodenum, there was a huge diverticulum present with undigested food particles present within. It was copiously irrigated and removed. Diverticulum was huge. Ampulla could not be identified. Scope was withdrawn. Findings: 1. Huge duodenal diverticulum with undigested food products present. 2. Diffuse mild cobblestoning of the body of the stomach. Biopsies taken; unclear significance. Rest of the examination was negative. Plan: 1. Await biopsies. 2. 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 3. Her CT scan shows a fecal impaction and an atrophic pancreas. Therefore I am going to clean her out with GoLYTELY bowel prep. There is also some thickening in the rectal area which will need to be further investigated so I think will need to repeat this colonoscopy in the morning. 4. For the atrophic pancreas, we may consider some pancreatic supplementation with meals. Electronically Signed by Nabila Burrows MD 02/14/2015 08:35 A PK/sp 02/13/201509:32 A 02/13/2015 10:14 A Job No: [id number] Doc No: [id number] cc: Noemi Barnard MD documented in this encounter Plan of Treatment Not on file documented as of this encounter Visit Diagnoses Not on filedocumented in this encounter
--- OUTSIDE RECORDS SUMMARY | 2024-04-05 00:28 | XMS_ITS | Encounter Summary ---
Author Organization [facility] Address [address] [place] [address]. [place] [address] [place] [address] Care Team Providers Care Production Director Name Role Phone Unavailable Primary Care Provider Unavailabl e Encounter Details Date Type Department Care Team (Latest Contact Info) Description 03/28/2015 Abstract [facility] [place] [address] [place] [address] Social History Tobacco Use Types [...]
--- OUTSIDE RECORDS SUMMARY | 2024-04-05 00:28 | XMS_ITS | Encounter Summary ---
Author Organization [facility] Address [address] [place] [address]. [place], [place] [address] [place] [address] Care Team Providers Care Objective C Developer Name Role Phone Unavailable Primary Care Provider Unavailabl e Encounter Details Date Type Department Care Team (Latest Contact Info) Description 02/17/2015 Abstract [facility] Medical Group Social History Tobacco [...]
--- OUTSIDE RECORDS SUMMARY | 2024-04-05 00:28 | XMS_ITS | Encounter Summary ---
Author Organization [facility] Address [address] [place] [address]. [place] [address] [place] [address] Care Team Providers Care Transportation Broker Name Role Phone Unavailable Primary Care Provider Unavailabl e Encounter Details Date Type Department Care Team (Latest Contact Info) Description 06/07/2015 Abstract [facility] Medical Group Social History Tobacco Use Types Packs/Day Years Used Date Smoking Tobacco: Never Assessed Comments Unknown Sex and Gender Information Value Date Recorded Sex Assigned at Not on file Legal Sex Female 8:14 PM CDT Gender Identity Not on file Sexual Orientation Not on file documented as of this encounter Progress Notes * Rhianna Castaneda Md, MD - 06/07/2015 4:17 PM CST Message Recorded as Task Date: 06/03/2015 06:30 AM, Created By: Noemi Barnard Task Name: Call Patient with results [facility] Nurse Team Regarding Patient: Roxana Ch, Status: In Progress Comment: Noemi Barnard - 03 Jun 2015 6:30 AM Patient A1c is good at 6.0 Bianca Larson 03 Jun 2015 2:07 PM TASK REASSIGNED: Previously Assigned To Noemi Barnard Holly - 05 Jun 2015 3:03 PM TASK IN PROGRESS Bianca Larson - 05 Jun 2015 3:04 PM TASK EDITED pt has already been informed of lab test results went over this when I called her re the other labsthat where done. Signatures Electronically signed by : Bianca Larson MA; Jun 07 2015 4:17PM GIFT BASKET PACKER (Author) documented in this encounter Plan of Treatment Not on file documented as of this encounter Visit Diagnoses Not on filedocumented in this encounter
--- OUTSIDE RECORDS SUMMARY | 2024-04-05 00:28 | XMS_ITS | Encounter Summary ---
Author Organization [facility] Address [address] [place] [address]. [place] [address] [place] [address] Care Team Providers Care Helicopter Technician Name Role Phone Unavailable Primary Care Provider Unavailabl e Encounter Details Date Type Department Care Team (Late st Contact Info) Description 11/04/2015 Abstract [facility] Family & Internal Medicine [facility] [address] [place] [address] [place] [address] [place] [address] Social History Tobacco Use Types Packs/Day Years Used Date Smoking Tobacco: Never Assessed Comments Unknown Sex and Gender Information Value Date Recorded Sex Assigned at Not on file Legal Sex Female 8:14 PM CDT Gender Identity Not on file Sexual Orientation Not on file documented as of this encounter Last Filed Vital Signs Vital Sign Reading Time Taken Comments Blood Pressure 152/80 11/04/2015 1:47 PM CDT Pulse 63 11/04/2015 1:47 PM CDT Temperature - - Respiratory Rate - - Oxygen Saturation - - Inhaled Oxygen Concentration - - Weight 54.9 kg (121 lb) 11/04/2015 1:47 PM CDT Height 157.5 cm (5' 2 ) 11/04/2015 1:47 PM CDT Body Mass Index 22.13 11/04/2015 1:47 PM CDT documented in this encounter Progress Notes * Noemi Jade MD - 11/04/2015 2:00 PM CDT Reason For Visit Acute Follow-Up Visit Chief Complaint pt here for follow up for DM2, hypertension, hyperlipidemia, hypothyroidism and pt c/o right neck pain x 2 weeks History of Present Illness Hypothyroidism (Follow-Up): The [...] medication side effects. Fall Risk Assessment: Falls: Patient reports no falls in past year. Review of Systems See HPI for pertinent positives. Constitutional: as noted in HPI and fatigue. Head and Face: negative. Eyes: negative. ENT: decreased hearing and right ear plugged and nasal congestion. Cardiovascular: negative. Respiratory: negative. Gastrointestinal: negative. Genitourinary: negative. Musculoskeletal: joint stiffness. Integumentary negative. Psychiatric: negative. Hematologic and Lymphatic: negative. Neurological Negative and tingling. Endocrine Negative. Active Problems 1. Diabetes mellitus (250.00) (E11.9) 2. Hyperlipidemia (272.4) (E78.5) 3. Hypertension (401.9) (I10) 4. Hypothyroidism (244.9) (E03.9) 5. Insomnia (780.52) (G47.00) 6. Vitamin d deficiency (268.9) (E55.9) Past Medical [...] TAKE 1 TABLET BY MOUTH DAILY; Therapy: 44Vbl7827 to (Evaluate:42Uor1949) Requested for: 85Lhn0688; Last Rx:[id number] Ordered 2. Enalapril Maleate 20 MG Oral Tablet; TAKE 1 TABLET BY MOUTH TWICE DAILY; Therapy: 23Jan2014 to (Evaluate:30Zxn8393) Requested for: 27Sep2015; Last Rx:[id number] Ordered 3. Janumet 50-500 MG Oral Tablet; TAKE ONE TABLET BY MOUTH TWICE DAILY WITH MEALS; Therapy: 02Bpq5766 to (Evaluate:34Eni7607) Requested for: 36Dbc0631; Last Rx:[id number] Ordered 4. Levothyroxine Sodium 50 MCG Oral Tablet; TAKE 1 TABLET DAILY DIRECTED; Therapy: 30Apr2014 to (Evaluate:01Arn8106) Requested for: 84Hdu7828; Last Rx:[id number] Ordered 5. Melatonin 1 MG Oral Capsule; TAKE 1 CAPSULE AT BEDTIME NEEDED; Therapy: 07Aug2015 to (Evaluate:03Aum1612); Last Rx:[id number] Ordered 6. OneTouch Ultra Blue In Vitro Strip; 1 Strip 3X/weekly & PRN; Therapy: 23Jan2015 to (Evaluate:77Gkh7399); Last Rx:[id number] Ordered 7. Pantoprazole Sodium 40 MG Oral Tablet Delayed Release; TAKE 1 TABLET DAILY; Therapy: 16Jan2014 to (Evaluate:76Guo3409) Requested for: 23Jan2015; Last Rx:[id number] Ordered 8. Pravastatin Sodium 40 MG Oral Tablet; TAKE ONE TABLET BY MOUTH AT BEDTIME; Therapy: 30Apr2014 to (Evaluate:70Emz5814) Requested for: 82Qtt3958; Last Rx:[id number] Ordered 9. TraZODone HCl - 50 MG Oral Tablet; TAKE 1 TO 2 TABLETS BY MOUTH EVERY NIGHT AT BEDTIME NEEDED FOR INSOMNIA; Therapy: 26Jun2014 to (Evaluate:38Tia5522) Requested for: 17Ond5206; Last Rx:[id number] Ordered Allergies 1. No Known Drug Allergies Vitals Recorded: 04Nov2015 01:47PM Heart Rate 63 Systolic 152 Diastolic 80 O2 Saturation 98 Height 5 ft 2 in Weight 121 lb BMI Calculated 22.13 BSA [...] (244.9) (E03.9) 4. Hyperlipidemia (272.4) (E78.5) 5. Dizziness (780.4) (R42) Plan Diabetes mellitus 1. CBC W Differential; Status:Active; Requested for:21Jan2016; Perform:[facility]; Due:20Feb2016;Ordered; For:Diabetes mellitus; Ordered By:Noemi Jade; 2. Compr Metabolic Prof ( CMP ); Status:Active; Requested for:21Jan2016; Perform:[facility]; Due:20Feb2016;Ordered; For:Diabetes mellitus; Ordered By:Noemi Jade; 3. Hemoglobin A1C ( HA1C ); Status:Active; Requested for:21Jan2016; Perform:[facility]; Due:20Feb2016;Ordered; For:Diabetes mellitus; Ordered By:Noemi Jade; 4. Lipid W/ Calculated LDL; Status:Active; Requested for:21Jan2016; Perform:. [facility]; Due:61Faw9903;Ordered; For:Diabetes mellitus; Ordered By:Noemi Jade; 5. Urine Microalbumin; Status:Active; Requested for:21Jan2016; Perform:[facility]; Due:25Ttg3897;Ordered; For:Diabetes mellitus; Ordered By:Noemi Jade; 6. Vitamin B12 And Folate; Status:Active; Requested for:21Jan2016; Perform:[facility]; Due:20Feb2016;Ordered; For:Diabetes mellitus; Ordered By:Noemi Jade; Dizziness 7. US DUPLEX CAROTID BI; Status:Hold For - Scheduling; Requested for:04Nov2015; Perform:[facility]; Due:98Ptj7969;Ordered; For:Dizziness; Ordered By:Noemi Jade; 8. Follow-up visit in 3 months Outpatient Follow-up Status: Hold For - Scheduling Requested for: 04Nov2015 Ordered; For: Dizziness; Ordered By: Noemi Jade Performed: Due: 18Nov2015 Hypertension 9. AmLODIPine Besylate 5 MG Oral Tablet; TAKE 1 TABLET DAILY Rx By: Noemi Jade; Dispense: 90 Days ; #:90 Tablet; Refill: 0; For: Hypertension; HI = N; Verified Transmission to [facility] [id number]; Last Updated By: Pomogatel; 11/04/2015 2:49:56 PM 10. Enalapril Maleate 20 MG Oral Tablet; TAKE 1 TABLET DAILY DIRECTED Rx By: Noemi Jade; Dispense: 90 Days ; #:90 Tablet; Refill: 0; For: Hypertension; HI = N; Verified Transmission to [facility] [id number]; Last Updated By: Pomogatel; 11/04/2015 2:49:54 PM PMH: History of constipation, Insomnia 11. Levothyroxine Sodium 50 MCG Oral Tablet; TAKE 1 TABLET DAILY DIRECTED Rx By: Noemi Jade; Dispense: 90 Days ; #:90 Tablet; Refill: 3; For: PMH: History of constipation, Insomnia; HI = N; Verified Transmission to [facility] [id number]; Last Updated By: MagicEvent; 11/04/2015 2:49:55 PM Vitamin d deficiency 12. Vitamin D 25 - Hydroxy; Status:Active; Requested for:21Jan2016; Perform:[facility]; Due:20Feb2016;Ordered; For:Vitamin d deficiency; Ordered By:Noemi Jade; Discussion/Summary Falls risk assessment completed. Visual exam of foot completed. Assessment of pedal pulse completed. Signatures Electronically signed by : Noemi Jade M.D.; Nov 14 2015 8:54AM ROLLED SEAT TRIMMER (Author) documented in this encounter Plan of Treatment Not on file documented as of this encounter Procedures Procedure Name Priority Date/Time Associated Diagnosis Comments VITAMIN B12 / FOLATE Routine 01/30/2016 9:02 AM CDT LIPID W/CALC LDL Routine 01/30/2016 9:02 AM CDT ALBUMIN URINE RANDOM WO/CREATININE Routine 01/30/2016 9:02 AM CDT HEMOGLOBIN, GLYCOSYLATED Routine 01/30/2016 9:02 AM CDT COMPREHENSIVE METABOLIC PANEL Routine 01/30/2016 9:02 AM CDT CBC W/DIFF AUTOMATED Routine 01/30/2016 9:02 AM CDT VITAMIN D, 25 OH Routine 01/30/2016 9:02 AM CDT US CAROTID DUPLEX KARLA Routine 11/07/2015 3:45 PM CDT documented in this encounter Results * (ABNORMAL) CBC W/DIFF AUTOMATED (01/30/2016 9:02 AM CDT) WBC 3.7(L) 4.4 - 11.0 x10'3/uL [facility] TO EPIC CONVERSION RBC 4.21(L) 4.50 - 5.10 x10'6/uL [facility] TO EPIC CONVERSION HGB 11.8(L) 12.3 - 15.3 G/DL [facility] TO [facility]IC CONVERSION HCT 36.0 35.9 - 44.6 % [facility] TO [facility]IC CONVERSION MCV 85.5 80.0 - 96.0 FL [facility] TO EPIC CONVERSION MCH 28.0 25.3 - 30.9 PG [facility] TO EPIC CONVERSION MCHC 32.8 31.0 - 34.1 G/DL [facility] TO EPIC CONVERSION RDW 13.7 12.4 - 15.1 % [facility] TO [facility]IC CONVERSION PLT 166 151 - 353 x10'3/uL [facility] TO EPIC CONVERSION GLUCOSE 10.0 9.6 - 12.0 FL [facility] TO EPIC CONVERSION BASOPHILS % 0.5 0.0 - 1.3 % [facility] TO EPIC CONVERSION EOSINOPHILS % 1.9 0.0 - 5.6 % [facility] TO [facility]IC CONVERSION NEUTROPHILS % 74.3(H) 42.1 - 71.9 % [facility] TO [facility]IC CONVERSION LYMPHOCYTES % 16.5 15.8 - 45.0 % [facility] TO [facility]IC CONVERSION IMMATURE GRANS % 0.3 0.0 - 0.5 % [facility] TO [facility]IC CONVERSION ABS. NEUTROPHILS TOTAL 2.75 1.40 - 6.00 x10'3/uL [facility] TO EPIC CONVERSION WBC MORPHOLOGY NORMAL [facility] OUP TO EPIC CONVERSION PLT MORPH. NORMAL [facility] TO [facility]IC CONVERSION RBC MORPHOLOGY NORMAL [facility] OUP TO EPIC CONVERSION MONOCYTES 6.5 5.7 - 12.5 % [facility] TO [facility]IC CONVERSION 01/30/2016 9:02 AM CDT 01/30/2016 9:02 AM CDT Narrative [facility] TO [facility] CONVERSION - 01/30/2016 9:39 AM CDT Result Communication: No patient communication needed at this time Noemi Jade MD LABORATORY Final Result [facility] TO [facility] CONVERSION * (ABNORMAL) COMPREHENSIVE METABOLIC PANEL (01/30/2016 9:02 AM CDT) Pathologist [facility] SODIUM S/P/B 142 136 - 145 MMOL/L [facility] TO [facility]IC CONVERSION POTASSIUM S/P/B 3.9 3.5 - 5.1 MMOL/L [facility] TO EPIC CONVERSION CHLORIDE S/P/B 110(H) 98 - 107 MMOL/L [facility] TO EPIC CONVERSION CO2 26.0 23 - 31 MMOL/L [facility] TO [facility]IC CONVERSION ANION GAP 9.9(L) 10.0 - 24.0 MMOL/L [facility] TO [facility]IC CONVERSION BUN 15 9.8 - 20.1 MG/DL [facility] TO [facility]IC CONVERSION CREATININE S/P/B 0.75 0.57 - 1.11 MG/DL [facility] TO EPIC [...] [facility] TO [facility]IC CONVERSION BUN CREATININE RATIO 20.0 6.0 - 26.0 [facility] TO [facility]IC CONVERSION GLUCOSE 96 83 - 110 MG/DL [facility] TO [facility]IC CONVERSION OSMOLALITY (CALC) 284 271 - 290 MOSM/KG [facility] TO [facility]IC CONVERSION CALCIUM S/P/B 9.3 8.4 - 10.2 MG/DL [facility] TO EPIC CONVERSION BILIRUBIN TOTAL S/P/B 0.5 0.2 - 1.2 MG/DL [facility] TO [facility]IC CONVERSION AST 13 5 - 34 U/L [facility] TO [facility]IC CONVERSION ALT 8 6 - 55 U/L [facility] TO [facility]IC CONVERSION ALKALINE PHOSPHATASE S/P/B 69 30 - 130 U/L [facility] TO EPIC CONVERSION TOTAL PROTEIN S/P/B 5.9(L) 6.4 - 8.3 G/DL [facility] TO EPIC CONVERSION ALBUMIN S/P/B 3.8 3.4 - 4.8 G/DL [facility] TO EPIC CONVERSION A/G RATIO 1.8 1.1 - 1.9 RATIO [facility] TO [facility]IC CONVERSION 01/30/2016 9:02 AM CDT 01/30/2016 9:02 AM CDT Narrative [facility] TO [facility] CONVERSION - 01/30/2016 9:46 AM CDT Result Communication: No patient communication needed at this time us Noemi Jade MD LABORATORY Final Result [facility] TO EPIC CONVERSION * VITAMIN D, 25 OH (01/30/2016 9:02 AM CDT) Pathologist [facility] VITAMIN D 25 HYDROXY S/P/B 31 30 - 100 NG/ML [facility] TO EPIC CONVERSION Comment: Result Comment: ?? SUPPLEMENTING WITH VITAMIN D2 MAY RESULT IN FALSELY LOW RESULTS, CLINICAL ?? CORRELATION NEEDED. ?INTERPRETATION ?DEFICIENT ??<20 ? INSUFFICIENT 20-30 ? SUFFICIENT 30-100 POTENTIAL INTOXICATION ??>100 ? TESTING PERFORMED AT [facility] [address] [place] [address] 01/30/2016 9:02 AM CDT 01/30/2016 9:02 AM CDT Narrative [facility] TO [facility]IC CONVERSION - 01/30/2016 6:36 PM CDT Result Communication: No patient communication needed at this time us Noemi Jade MD LABORATORY Final Result [facility] TO EPIC CONVERSION * (ABNORMAL) LIPID W/CALC LDL (01/30/2016 9:02 AM CDT) CHOLESTEROL 130 <200 MG/DL [facility] P TO EPIC CONVERSION TRIGLYCERIDES 85 <150 MG/DL [facility] OUP TO EPIC CONVERSION HDL 51(L) >55 MG/DL [facility] T O EPIC CONVERSION LDL (CALCULATED) 62 <130 MG/L [facility] TO EPIC CONVERSION CHOL/HDL RATIO 2.5 [facility] OUP TO EPIC CONVERSION Comment: Result Comment: ? INTERPRETATION OF RESULTS NHLBI RECOMMENDED RANGES ? CHOLESTEROL MG/DL ?LDL MG/DL ?DESIRABLE ? <200 ?<130 ?BORDERLINE ?200-239 ? 130-159 ?HIGH RISK ? >240 ?>160 ?? REFERENCE VALUE FOR HDL CHOLESTEROL ?RISK LEVEL ??MALE MG/DL ? FEMALE MG/DL ?DECREASED ?>45 ?>55 ?AVERAGE ? 45 ? 55 ?INCREASED ?<45 ?<55 01/30/2016 9:02 AM CDT 01/30/2016 9:02 AM CDT Narrative [facility] TO EPIC CONVERSION - 01/30/2016 9:46 AM CDT Result Communication: No patient communication needed at this time Noemi Jade MD LABORATORY Final Result Performing Organization Address [facility] de Phone Number [facility] TO EPIC CONVERSION * (ABNORMAL) HEMOGLOBIN, GLYCOSYLATED (01/30/2016 9:02 AM CDT) HGB A1C 6.0(H) <5.7 % [facility] T O EPIC CONVERSION Comment: Result Comment: ?? INCREASED RISK OF DIABETES <5.7% ?NON-DIABETES 5.7-6.4% INCREASED RISK FOR FUTURE DIABETES > OR = 6.5 CONSISTENT WITH DIABETES ?? STANDARDS OF MEDICAL CARE IN DIABETES-2010 DIABETES CARE, 33(SUPP 1): S1-S61,2010 01/30/2016 9:02 AM CDT 01/30/2016 9:02 AM CDT Narrative [facility] TO EPIC CONVERSION - 02/05/2016 9:38 AM CDT Result Communication: No patient communication needed at this time us Noemi Jade MD LABORATORY Final Result Performing Organization Address [facility] de Phone Number [facility] TO EPIC CONVERSION * URINE MICROALBUMIN (01/30/2016 9:02 AM CDT) MICROALBUMIN (U) <0.5 <30.0 mg/dL [facility] TO EPIC CONVERSION 01/30/2016 9:02 AM CDT 01/30/2016 9:02 AM CDT Narrative [facility] TO EPIC CONVERSION - 01/30/2016 11:03 AM CDT Result Communication: No patient communication needed at this time Noemi Jade MD LABORATORY Final Result [facility] TO EPIC CONVERSION * VITAMIN B12 / FOLATE (01/30/2016 9:02 AM CDT) VITAMIN B12 S/P/B 547 213 - 816 pg/mL [facility] TO EPIC CONVERSION FOLATE 11.11 7.0 - 31.4 ng/mL [facility] TO EPIC CONVERSION 01/30/2016 9:02 AM CDT 01/30/2016 9:02 AM CDT Narrative [facility] TO EPIC CONVERSION - 01/30/2016 10:07 AM CDT Result Communication: No patient communication needed at this time us Noemi Jade MD LABORATORY Final Result Performing Organization Address City/[facility] Co de Phone Number [facility] TO EPIC CONVERSION * US CAROTID DUPLEX KARLA (11/07/2015 3:45 PM CDT) Anatomical Region Laterality Modality NA Ultrasound 11/07/2015 3:45 PM CDT 11/07/2015 3:45 PM CDT Narrative 11/07/2015 3:52 PM CDT ROXANA IRTCHIE ? ADMIT/SERVICE DATE: 11/07/15 ?? ACCT: [id number] ?DISCHARGE DATE: ?? : 1935 ??SEX: F ?ORD SITE: [facility] ?? PT TYPE: REG CLI ? ORDERING MD: NOEMI JADE MD ? STUDY DATE ? REPORT # ?ORDER # ? EXT ORDER ID ?? 11/07/15 ? [id number] ? [id number] ?[id number] ? PROC CODE: ? DUPCAROTDB ? PROCEDURE DESCRIPTION: ?? US DUPLEX CAROTID BI ? IMAGING STUDIES:US DUPLEX CAROTID BI ? DATE : 11/07/2015 9:45 AM ? INDICATION: OTHER - US DIZZINESS ??. ? COMPARISON: NO COMPARISONS. . ? TECHNIQUE: EXAMINATION PERFORMED BY HEARING AID DISPENSER USING GRAYSCALE WITH COLOR FLOW AND SPECTRAL DOPPLER. SELECTED IMAGES SUBMITTED FOR INTERPRETATION. WORKSHEET COMPLETED. ? IMPRESSION: ? RIGHT CAROTID BIFURCATION: ? PEAK SYSTOLIC VELOCITIES (CM/S) CCA ??85.9, ICA ??121.1/30, ECA ??91, ICA/CCA ??1.42. ?? MINIMAL PLAQUE. ??THERE IS NO EVIDENCE TO SUGGEST THE PRESENCE OF A HEMODYNAMICALLY SIGNIFICANT STENOSIS WITHIN THE PROXIMAL RIGHT INTERNAL CAROTID ARTERY OR CAROTID BULB. (LESS THAN 50% DIAMETER STENOSIS). ? LEFT CAROTID BIFURCATION: ? PEAK SYSTOLIC VELOCITIES (CM/S) CCA ??63.8, ICA ??104/23.7, ECA ??64.6, ICA/CCA ??1.63. ?? MINIMAL PLAQUE. ??THERE IS NO EVIDENCE TO SUGGEST THE PRESENCE OF A HEMODYNAMICALLY SIGNIFICANT STENOSIS WITHIN THE PROXIMAL LEFT INTERNAL CAROTID ARTERY OR CAROTID BULB. (LESS THAN 50% DIAMETER STENOSIS). ? VERTEBRAL ARTERIES: ? ANTEGRADE FLOW PRESENT IN BOTH VERTEBRAL ARTERIES. ? STENOSES EVALUATED USING CRITERIA SIMILAR TO NASCET. ? ELECTRONICALLY SIGNED BY JANE REEVES MD ? Procedure Note Rhianna Abreu, - 10/25/2018 ROXANA RITCHIE ADMIT/SERVICE DATE:11/07/15 ACCT: [id number] DISCHARGE DATE: : 1935 SEX: F ORD SITE: [facility] PT TYPE: REG CLI ORDERING MD:NOEMI JADE MD STUDY DATE REPORT # ORDER # EXT ORDER ID 11/07/15 [id number] PROC CODE: DUPCAROTDB PROCEDURE DESCRIPTION: US DUPLEX CAROTID BI IMAGING STUDIES:US DUPLEX CAROTID BIDATE : 11/07/2015 9:45 AM INDICATION: OTHER - US DIZZINESS . COMPARISON: NO COMPARISONS. . TECHNIQUE: EXAMINATION PERFORMED BY HEARING AID DISPENSER USING GRAYSCALE WITHCOLOR FLOW AND SPECTRAL DOPPLER. SELECTED IMAGES SUBMITTED FOR INTERPRETATION. WORKSHEETCOMPLETED. IMPRESSION: RIGHT CAROTID BIFURCATION: PEAK SYSTOLIC VELOCITIES (CM/S) CCA 85.9, ICA 121.1/30, ECA 91,ICA/CCA 1.42. MINIMAL PLAQUE. THERE IS NO EVIDENCE TO SUGGEST THE PRESENCE OF AHEMODYNAMICALLY SIGNIFICANT STENOSIS WITHIN THE PROXIMAL RIGHT INTERNAL CAROTID ARTERY OR CAROTIDBULB. (LESS THAN 50% DIAMETER STENOSIS). LEFT CAROTID BIFURCATION: PEAK SYSTOLIC VELOCITIES (CM/S) CCA 63.8, ICA 104/23.7, ECA 64.6,ICA/CCA 1.63. MINIMAL PLAQUE. THERE IS NO EVIDENCE TO SUGGEST THE PRESENCE OF AHEMODYNAMICALLY SIGNIFICANT STENOSIS WITHIN THE PROXIMAL LEFT INTERNAL CAROTID ARTERY OR CAROTID BULB.(LESS THAN 50% DIAMETER STENOSIS). VERTEBRAL ARTERIES: ANTEGRADE FLOW PRESENT IN BOTH VERTEBRAL ARTERIES. STENOSES EVALUATED USING CRITERIA SIMILAR TO NASCET. ELECTRONICALLY SIGNED BY JANE REEVES MD Noemi Jade MD ULTRASOUND Final Result documented in this encounter Visit Diagnoses Not on filedocumented in this encounter
--- OUTSIDE RECORDS SUMMARY | 2024-04-05 00:28 | XMS_ITS | Encounter Summary ---
Author Organization [facility] Address [address] [place] [address]. [place], [place] [address] [place] [address] Care Team Providers Care Third Cook Name Role Phone Noemi Barnard MD Primary Care Provider [phone] Encounter Details Date Type Department Care Team (Late st Contact Info) Description 02/08/2015 Abstract [facility] [address] [place] [address] Christos Burrows MD [address] [address] Social History Tobacco Use Types Packs/Day Years [...] as of this encounter Visit Diagnoses Diagnosis Other senior care (current) drug therapy documented in this encounter Care Teams Third Cook Relationship Specialty Start Date End Date Noemi Barnard MD PCP - General INTERNAL MEDICINE 02/22/18 07/03/18 documented as of this encounter
--- OUTSIDE RECORDS SUMMARY | 2024-04-05 00:28 | XMS_ITS | Encounter Summary ---
Author Organization [facility] Address [facility] [place] [address] [place] [address] Care Team Providers Care Senior Network Administrator Name Role Phone Unavailable Primary Care Provider Unavailabl e Encounter Details Date Type Department Care Team (Late st Contact Info) Description 03/20/2015 Abstract [facility] Family & Internal Medicine [facility] [address] [place] [address] [place] [address] [place] [address] Social History Tobacco Use Types Packs/Day Years Used Date Smoking Tobacco: Never Assessed Comments Unknown Sex and Gender Information Value Date Recorded Sex Assigned at Not on file Legal Sex Female 8:14 PM CDT Gender Identity Not on file Sexual Orientation Not on file documented as of this encounter Last Filed Vital Signs Vital Sign Reading Time Taken Comments Blood Pressure 126/80 03/20/2015 10:11 AM JIGGER CROWN POUNCING MACHINE OPERATOR Pulse 67 03/20/2015 10:11 AM JIGGER CROWN POUNCING MACHINE OPERATOR Temperature - - Respiratory Rate - - Oxygen Saturation - - Inhaled Oxygen Concentration - - Weight 51.7 kg (114 lb) 03/20/2015 10:11 AM JIGGER CROWN POUNCING MACHINE OPERATOR Height 157.5 cm (5' 2 ) 03/20/2015 10:11 AM JIGGER CROWN POUNCING MACHINE OPERATOR Body Mass Index 20.85 03/20/2015 10:11 AM JIGGER CROWN POUNCING MACHINE OPERATOR documented in this encounter Progress Notes * Noemi Barnard MD - 03/20/2015 10:15 AM CST Reason For Visit Acute Visit Chief Complaint Pt is here to follow up on DM, HTN, and cholesterol. Pt has not had labs drawn prior to appointment. History of Present Illness Hyperlipidemia (Follow-Up): The patient states her hyperlipidemia [...] medication regimen. She denies medication side effects. Ceruminosis (Brief): The patient is being seen for an initial evaluation of cerumen impaction. The patient presents with complaints of plugged ear(s) (right). The patient presents with complaints of right ear difficulty hearing. The patient is currently experiencing symptoms. Symptoms are located in the right ear. Onset was gradual. The symptoms occur intermittently. She describes this as mild and worsening. No relieving factors are noted. Associated symptoms: nasal congestion. Pertinent medical history: diabetes, cerumen removal and hearing loss. Riskfactors: use of hearing aid(s). Review of Systems Constitutional: as noted in [...] (272.4) (E78.5) 9. Hypertension (401.9) (I10) 10. Insomnia (780.52) (G47.00) 11. Melena (578.1) (K92.1) 12. Screening mammogram for high-risk patient (V76.11) (Z12.31) 13. Vitamin d deficiency (268.9) (E55.9) Past Medical History 1. History of arthritis (V13.4) (Z87.39) 2. History of malignant neoplasm of breast (V10.3) (Z85.3) Surgical History 1. History of Abdominal Surgery 2. History of Breast Surgery Reduction Procedure 3. History of Cholecystectomy 4. History of Hemorrhoidectomy 5. History of Hysterectomy 6. History of Inner Ear Surgery 7. History of Rotator Cuff Repair Family History [...] ML Intramuscular Suspension Prefilled Syringe --- Series1: [id number] Current Meds 1. AmLODIPine Besylate 5 MG Oral Tablet; TAKE 1 TABLET DAILY; Therapy: 68Cbh8748 to (Evaluate:05May2015) Requested for: 81Kbi1252; Last Rx:[id number] Ordered 2. Enalapril Maleate 20 MG Oral Tablet; TAKE 1 TABLET TWICE DAILY; Therapy: 23Jan2014 to Recorded 3. Janumet 50-500 MG Oral Tablet; TAKE ONE TABLET BY MOUTH TWICE DAILY WITH MEALS; Therapy: 76Bev2323 to (Evaluate:79Auq3628) Requested for: 70Abn9003; Last Rx:[id number] Ordered 4. Levothyroxine Sodium 75 MCG Oral Tablet; TAKE 1 TABLET BY MOUTH DAILY; Therapy: 30Apr2014 to (Evaluate:94Oxo1443) Recorded 5. OneTouch Ultra Blue In Vitro Strip; 1 Strip 3X/weekly & PRN; Therapy: 23Jan2015 to (Evaluate:63Znz9127); Last Rx:[id number] Ordered 6. Pantoprazole Sodium 40 MG Oral Tablet Delayed Release; TAKE 1 TABLET DAILY; Therapy: 16Jan2014 to (Evaluate:67Awr7342) Requested for: 55Cxl0515; Last Rx:[id number] Ordered 7. Pravastatin Sodium 40 MG Oral Tablet; TAKE 1 TABLET DAILY AT BEDTIME; Therapy: 30Apr2014 to (Evaluate:23Jun2015) Requested for: 70Glp8985; Last Rx:[id number] Ordered 8. TraZODone HCl - 50 MG Oral Tablet; TAKE 1 TABLET Bedtime; Therapy: 26Jun2014 to (Evaluate:15Qrj2557) Recorded Allergies 1. No Known Drug Allergies Vitals Recorded: 14Ssy0149 10:11AM Heart Rate 67 Respiration 16 Systolic 126, RUE, Sitting Diastolic 80, RUE, Sitting O2 Saturation 97 Height 5 ft 2 in Weight 114 lb BMI Calculated 20.85 BSA Calculated 1.51 Physical Exam Constitutional General appearance: No acute [...] and cerumen impaction in the right ear. Procedure Note: The procedure was performed by the Provider. A ototoscope was placed in the ear canal(s) to visualize the ear canal debris. The ear was cleaned by using a curette. Post-Procedure: Patient Status: the patient tolerated the procedure well. Complications: there were no complications. Patient instructions: avoid using q-tips. Follow-up as needed and improved hearing after removal moderate amount of cerumen. Assessment 1. Hypertension (401.9) (I10) 2. Diabetes mellitus (250.00) (E11.9) 3. Hyperlipidemia (272.4) (E78.5) 4. Impacted cerumen of right ear (380.4) (H61.21) Plan Diabetes mellitus 1. CBC W Differential; Status:Active; Requested for:05Jul2014; Perform:[facility]; Due:04Rwh2148; Last Updated By:To Monahan; 03/20/2015 9:17:15 PM;Ordered; For:Diabetes mellitus; Ordered By:Nomei Barnard; 2. Compr Metabolic Prof ( CMP ); Status:Active; Requested for:05Jul2014; Perform:[facility]; Due:04Aug2014; Last Updated By:To Monahan; 03/20/2015 9:17:15 PM;Ordered; For:Diabetes mellitus; Ordered By:Noemi Barnard; 3. Hemoglobin A1C ( HA1C ); Status:Active; Requested for:05Jul2014; Perform:[facility]; Due:04Aug2014; Last Updated By:To Monahan; 03/20/2015 9:17:15 PM;Ordered; For:Diabetes mellitus; Ordered By:Noemi Barnard; 4. TSH W Reflex Free T4; Status:Active; Requested for:05Jul2014; Perform:[facility]; Due:04Aug2014; Last Updated By:To Monahan; 03/20/2015 9:17:15 PM;Ordered; For:Diabetes mellitus; Ordered By:Noemi Barnard; 5. Urine Microalbumin; Status:Active; Requested for:05Jul2014; Perform:[facility]; Due:04Aug2014; Last Updated By:To Monahan; 03/20/2015 9:17:15 PM;Ordered; For:Diabetes mellitus; Ordered By:Noemi Barnard; Hyperlipidemia, Hypertension 6. Follow-up visit in 4 months Outpatient Follow-up Status: Complete Done: 20Mar2015 Ordered; For: Hyperlipidemia, Hypertension; Ordered By: Noemi Barnard Performed: Due: 03Apr2015; Last Updated By: Stormy Jackman; 03/20/2015 10:48:33 AM Impacted cerumen of right ear 7. *Ear Lavage In Office; Status:Active; Requested for:98Tjr6596; Perform:In Office; Due:63Dti6002;Ordered; For:Impacted cerumen of right ear; Ordered By:Noemi Barnard; Patient to follow up in 4 months, otherwise PRN, otherwise continue same. Discussion/Summary 1. Hypertension. Blood pressure with improved control after changed to amlodipine, also decreased constipation, decreased problem with hemorrhoids. Patient is pleased. 2. Diabetes stable, continue same. 3. Hyperlipidemia stable, continue same. 4. Impacted cerumen right ear removed by provider with curette. Moderate amount of cerumen removed.Patient tolerated well with improved hearing. Signatures Electronically signed by : Noemi Barnard M.D.; Mar 21 2015 9:29AM JIGGER CROWN POUNCING MACHINE OPERATOR (Author) documented in this encounter Plan of Treatment Not on file documented as of this encounter Procedures Procedure Name Priority Date/Time Associated Diagnosis Comments ALBUMIN URINE RANDOM WO/CREATININE Routine 05/27/2015 8:53 AM JIGGER CROWN POUNCING MACHINE OPERATOR TSH W/REFLEX Routine 05/27/2015 8:53 AM JIGGER CROWN POUNCING MACHINE OPERATOR HEMOGLOBIN, GLYCOSYLATED Routine 05/27/2015 8:53 AM JIGGER CROWN POUNCING MACHINE OPERATOR COMPREHENSIVE METABOLIC PANEL Routine 05/27/2015 8:53 AM JIGGER CROWN POUNCING MACHINE OPERATOR CBC W/DIFF AUTOMATED Routine 05/27/2015 8:53 AM JIGGER CROWN POUNCING MACHINE OPERATOR documented in this encounter Results * URINE MICROALBUMIN (05/27/2015 8:53 AM JIGGER CROWN POUNCING MACHINE OPERATOR) MICROALBUMIN (U) <0.5 <30.0 mg/dL [facility] TO EPIC CONVERSION 05/27/2015 8:53 AM JIGGER CROWN POUNCING MACHINE OPERATOR 05/27/2015 8:53 AM JIGGER CROWN POUNCING MACHINE OPERATOR Narrative [facility] TO EPIC CONVERSION - 05/27/2015 9:29 AM JIGGER CROWN POUNCING MACHINE OPERATOR Result Communication: Call patient with results us Noemi Barnard MD LABORATORY Final Result [facility] TO EPIC CONVERSION * (ABNORMAL) CBC W/DIFF AUTOMATED (05/27/2015 8:53 AM JIGGER CROWN POUNCING MACHINE OPERATOR) WBC 3.3(L) 4.4 - 11.0 x10'3/uL [facility] TO EPIC CONVERSION RBC 4.27(L) 4.50 - 5.10 x10'6/uL [facility] TO EPIC CONVERSION HGB 12.2(L) 12.3 - 15.3 G/DL [facility] TO EPIC CONVERSION HCT 37.0 35.9 - 44.6 % [facility] TO EPIC CONVERSION MCV 86.7 80.0 - 96.0 FL [facility] TO EPIC CONVERSION MCH 28.6 25.3 - 30.9 PG [facility] TO EPIC CONVERSION MCHC 33.0 31.0 - 34.1 G/DL [facility] TO EPIC CONVERSION RDW 13.8 12.4 - 15.1 % [facility] TO EPIC CONVERSION PLT 180 151 - 353 x10'3/uL [facility] TO EPIC CONVERSION MPV 10.3 9.6 - 12.0 FL [facility] TO EPIC CONVERSION BASOPHILS % 0.9 0.0 - 1.3 % [facility] TO EPIC CONVERSION EOSINOPHILS % 3.4 0.0 - 5.6 % [facility] TO EPIC CONVERSION NEUTROPHILS % 66.8 42.1 - 71.9 % [facility] TO EPIC CONVERSION LYMPHOCYTES % 19.4 15.8 - 45.0 % [facility] TO EPIC CONVERSION MONOCYTES % 9.2 5.7 - 12.5 % [facility] TO EPIC CONVERSION IMMATURE GRANS % 0.3 0.0 - 0.5 % [facility] TO EPIC CONVERSION ABS. NEUTROPHILS TOTAL 2.20 1.40 - 6.00 x10'3/uL [facility] TO EPIC CONVERSION WBC MORPHOLOGY NORMAL [facility] OUP TO EPIC CONVERSION PLT MORPH. NORMAL [facility] TO EPIC CONVERSION RBC MORPHOLOGY NORMAL [facility] OUP TO EPIC CONVERSION 05/27/2015 8:53 AM JIGGER CROWN POUNCING MACHINE OPERATOR 05/27/2015 8:53 AM JIGGER CROWN POUNCING MACHINE OPERATOR Narrative [facility] TO EPIC CONVERSION - 05/27/2015 9:53 AM JIGGER CROWN POUNCING MACHINE OPERATOR Result Communication: Call patient with results us Noemi Barnard MD LABORATORY Final Result [facility] TO EPIC CONVERSION * (ABNORMAL) COMPREHENSIVE METABOLIC PANEL (05/27/2015 8:53 AM JIGGER CROWN POUNCING MACHINE OPERATOR) SODIUM S/P/B 146(H) 136 - 145 MMOL/L [facility] TO EPIC CONVERSION POTASSIUM S/P/B 4.0 3.5 - 5.1 MMOL/L [facility] TO EPIC CONVERSION CHLORIDE S/P/B 109(H) 98 - 107 MMOL/L [facility] TO EPIC CONVERSION CO2 26.0 23 - 31 MMOL/L [facility] TO EPIC CONVERSION ANION GAP 15.0 10.0 - 24.0 MMOL/L [facility] TO EPIC CONVERSION BUN 17 9.8 - 20.1 MG/DL [facility] TO EPIC CONVERSION CREATININE S/P/B 0.79 0.57 - 1.11 MG/DL [facility] TO EPIC CONVERSION GFR ESTIMATE >60 ?? GFR Reference Range: Kidney Failure - <15mL/min Chronic Kidney Disease - <60mL/min Normal Kidney Function - >60mL/min GFR calculation is not recommended for Patients less than 18 years or greater than 70 years as per the national Kid[employer]. If the patient is -[place]ari[place] n, multiply results by 1.21 >60 ml/min/1 .73 m2 [facility] TO EPIC CONVERSION BUN CREATININE RATIO 21.5 6.0 - 26.0 [facility] TO EPIC CONVERSION GLUCOSE 93 83 - 110 MG/DL [facility] TO EPIC CONVERSION OSMOLALITY (CALC) 292(H) 271 - 290 MOSM/KG [facility] TO EPIC CONVERSION CALCIUM S/P/B 9.6 8.4 - 10.2 MG/DL [facility] TO EPIC CONVERSION BILIRUBIN TOTAL S/P/B 0.6 0.2 - 1.2 MG/DL [facility] TO EPIC CONVERSION AST 15 5 - 34 UNITS/L [facility] TO EPIC CONVERSION ALT 9 6 - 55 UNITS/L [facility] TO EPIC CONVERSION ALKALINE PHOSPHATASE S/P/B 76 30 - 130 UNITS/L [facility] TO EPIC CONVERSION TOTAL PROTEIN S/P/B 6.3(L) 6.4 - 8.3 G/DL [facility] TO EPIC CONVERSION ALBUMIN S/P/B 3.8 3.4 - 4.8 G/DL [facility] TO EPIC CONVERSION A/G RATIO 1.5 1.1 - 1.9 RATIO [facility] TO EPIC CONVERSION 05/27/2015 8:53 AM JIGGER CROWN POUNCING MACHINE OPERATOR 05/27/2015 8:53 AM JIGGER CROWN POUNCING MACHINE OPERATOR Narrative [facility] TO EPIC CONVERSION - 05/27/2015 9:29 AM JIGGER CROWN POUNCING MACHINE OPERATOR Result Communication: Call patient with results us Noemi Barnard MD LABORATORY Final Result [facility] TO EPIC CONVERSION * (ABNORMAL) HEMOGLOBIN, GLYCOSYLATED (05/27/2015 8:53 AM JIGGER CROWN POUNCING MACHINE OPERATOR) HGB A1C 6.0(H) <5.7 % [facility] T O EPIC CONVERSION Comment: Result Comment: ?? INCREASED RISK OF DIABETES <5.7% ?NON-DIABETES 5.7-6.4% INCREASED RISK FOR FUTURE DIABETES > OR = 6.5 CONSISTENT WITH DIABETES ?? STANDARDS OF MEDICAL CARE IN DIABETES-2010 DIABETES CARE, 33(SUPP 1): S1-S61,2010 05/27/2015 8:53 AM JIGGER CROWN POUNCING MACHINE OPERATOR 05/27/2015 8:53 AM JIGGER CROWN POUNCING MACHINE OPERATOR Narrative [facility] TO EPIC CONVERSION - 05/27/2015 3:30 PM JIGGER CROWN POUNCING MACHINE OPERATOR Result Communication: Call patient with results Noemi Barnard MD LABORATORY Final Result [facility] TO EPIC CONVERSION * TSH W/REFLEX (SNS) (05/27/2015 8:53 AM JIGGER CROWN POUNCING MACHINE OPERATOR) TSH 0.45 0.35 - 4.94 uIU/mL [facility] TO EPIC CONVERSION Comment:Result Comment: FREE T4 NOT INDICATED 05/27/2015 8:53 AM JIGGER CROWN POUNCING MACHINE OPERATOR 05/27/2015 8:53 AM JIGGER CROWN POUNCING MACHINE OPERATOR Narrative [facility] TO EPIC CONVERSION - 05/27/2015 9:53 AM JIGGER CROWN POUNCING MACHINE OPERATOR Result Communication: Call patient with results us Noemi Barnard MD LABORATORY Final Result Performing Organization Address City/[facility]/ZIP Co de Phone Number [facility] TO EPIC CONVERSION documented in this encounter Visit Diagnoses Not on filedocumented in this encounter
--- OUTSIDE RECORDS SUMMARY | 2024-04-05 00:28 | XMS_ITS | Encounter Summary ---
Author Organization [facility] Address [address] [place] [address]. [place], [place] [address] [place] [address] Care Team Providers Care Ritual Circumciser Name Role Phone Noemi Barnard MD Primary Care Provider [phone] Encounter Details Date Type Department Care Team (Late st Contact Info) Description 02/09/2015 Abstract [facility] Cardiopulmonary Services [address] [place], [place] [id number] Christos Burrows MD [address] [address] Social History Tobacco Use Types Packs/Day Years [...] of this encounter Visit Diagnoses Diagnosis Essential (primary) hypertension Unspecified essential hypertension documented in this encounter Care Teams Ritual Circumciser Relationship Specialty Start Date End Date Noemi Barnard MD PCP - General INTERNAL MEDICINE 02/22/18 07/03/18 documented as of this encounter
--- OUTSIDE RECORDS SUMMARY | 2024-04-05 00:28 | XMS_ITS | Encounter Summary ---
Author Organization [facility] Address [address] [place] [address]. [place], [place] [id number] [place] [address] Care Team Providers Care Deputy Clerk Of Court Name Role Phone Noemi Barnard MD Primary Care Provider [phone] Encounter Details Date Type Department Care Team (Late st Contact Info) Description 11/07/2015 Abstract [facility] [address] [place], [place] [id number] [place] [address] [place] [address] Social History Tobacco Use Types Packs/Day Years [...] as of this encounter Visit Diagnoses Diagnosis Dizziness and giddiness documented in this encounter Care Teams Deputy Clerk Of Court Relationship Specialty Start Date End Date Noemi Barnard MD PCP - General INTERNAL MEDICINE 02/22/18 07/03/18 documented as of this encounter
--- OUTSIDE RECORDS SUMMARY | 2024-04-05 00:28 | XMS_ITS | Encounter Summary ---
Author Organization [facility] Address [address] [place] [address]. [place], [place] [id number] [place] [address] Care Team Providers Care Television Operator Name Role Phone Noemi Barnard MD Primary Care Provider [phone] Encounter Details Date Type Department Care Team (Late st Contact Info) Description 02/13/2015 Abstract [facility] One Day Services [address] [place], [place] [id number] Christos Burrows MD [address] [address] Social History Tobacco Use Types Packs/Day Years [...] this encounter Visit Diagnoses Diagnosis Diverticulosis of small intestine without perforation or abscess without bleeding Diverticulosis of small intestine (without mention of hemorrhage) documented in this encounter Care Teams Television Operator Relationship Specialty Start Date End Date Noemi Barnard MD PCP - General INTERNAL MEDICINE 02/22/18 07/03/18 documented as of this encounter
--- OUTSIDE RECORDS SUMMARY | 2024-04-05 00:28 | XMS_ITS | Encounter Summary ---
Author Organization [facility] Address [facility] [facility] [place] [address] [place] [address] Care Team Providers Care Manager Convention Name Role Phone Unavailable Primary Care Provider Unavailabl e Encounter Details Date Type Department Care Team (Latest Contact Info) Description 10/14/2015 Abstract [facility] [place] [address] [place] [address] Social History Tobacco Use Types [...] Date/Time Associated Diagnosis Comments TSH W/REFLEX Routine 10/14/2015 8:42 AM CDT documented in this encounter Results * TSH W/REFLEX (SNS) (10/14/2015 8:42 AM CDT) TSH 1.66 0.35 - 4.94 uIU/mL [facility] TO EPIC CONVERSION Comment:Result Comment: FREE T4 NOT INDICATED 10/14/2015 8:42 AM CDT 10/14/2015 8:42 AM CDT Narrative [facility] TO EPIC CONVERSION - 10/14/2015 10:07 AM CDT Result Communication: No patient communication needed at this time Noemi Barnard MD LABORATORY Final Result [facility] TO EPIC CONVERSION documented in this encounter Visit Diagnoses Not on filedocumented in this encounter
--- OUTSIDE RECORDS SUMMARY | 2024-04-05 00:28 | XMS_ITS | Encounter Summary ---
Author Organization [facility] Address [facility] [place] [place] [address] [place] [address] Care Team Providers Care Buy Boat Operator Name Role Phone Unavailable Primary Care Provider Unavailabl e Encounter Details Date Type Department Care Team (Late st Contact Info) Description 03/06/2015 Abstract [facility] Medical Group Family & Internal Medicine [facility] [id number] [place] [phone] [place] [address] [place] [address] Social History Tobacco Use Types Packs/Day Years Used Date Smoking Tobacco: Never Assessed Comments Unknown Sex and Gender Information Value Date Recorded Sex Assigned at Not on file Legal Sex Female 8:14 PM CDT Gender Identity Not on file Sexual Orientation Not on file documented as of this encounter Last Filed Vital Signs Vital Sign Reading Time Taken Comments Blood Pressure 146/80 03/06/2015 2:59 PM DIRECTOR PRIVATE Pulse 78 03/06/2015 2:59 PM DIRECTOR PRIVATE Temperature - - Respiratory Rate - - Oxygen Saturation - - Inhaled Oxygen Concentration - - Weight 54 kg (119 lb) 03/06/2015 2:59 PM DIRECTOR PRIVATE Height 157.5 cm (5' 2 ) 03/06/2015 2:59 PM DIRECTOR PRIVATE Body Mass Index 21.77 03/06/2015 2:59 PM DIRECTOR PRIVATE documented in this encounter Progress Notes * Noemi Barnard MD - 03/06/2015 3:00 PM CST Reason For Visit Acute Visit Chief Complaint pt here c/o constipation x 5 days has been taking stool softners. Pt states she had a colonoscopy in Feb 2015, which could have been last Wednesday. Possible hemorroid. History of Present Illness Constipation (Brief): The patient is being seen for worsening symptoms of constipation. Symptoms: infrequent stools, straining at stools, incomplete evacuation and abdominal cramping. The patient is currently experiencing symptoms. Symptom onset was gradual. The symptoms occur intermittently. She de scribes this as moderate in severity and worsening. Relieving factors: stool softeners. Review of Systems Eyes, ENT, Cardiovascular, Respiratory, Genitourinary, Integumentary, Neurological, Psychiatric, Endocrine and Hematologic review of systems normal except as noted. Constitutional: (feeling tired). Gastrointestinal: constipation. Musculoskeletal: (joint stiffness). Active Problems 1. Abdominal pain (789.00) (R10.9) 2. Abnormal mammogram (793.80) (R92.8) 3. Diabetes mellitus (250.00) (E11.9) 4. GERD (gastroesophageal reflux disease) (530.81) (K21.9) 5. History of breast cancer (V10.3) (Z85.3) 6. Hyperlipidemia (272.4) (E78.5) 7. Hypertension (401.9) (I10) 8. Insomnia (780.52) (G47.00) 9. Melena (578.1) (K92.1) 10. Screening mammogram for high-risk patient (V76.11) (Z12.31) 11. Vitamin d deficiency (268.9) (E55.9) Past [...] ML Intramuscular Suspension Prefilled Syringe --- Series1: 96Suy0951 Current Meds 1. Enalapril Maleate 20 MG Oral Tablet; TAKE 1 TABLET TWICE DAILY; Therapy: 23Jan2014 to Recorded 2. Janumet 50-500 MG Oral Tablet; TAKE 1 TABLET TWICE DAILY WITH MEALS; Therapy: 12Rkq2350 to (Evaluate:88Ejb4641) Requested for: 87Zir6245; Last Rx:[id number] Ordered 3. Levothyroxine Sodium 75 MCG Oral Tablet; TAKE 1 TABLET BY MOUTH DAILY; Therapy: 30Apr2014 to (Evaluate:98Pad9292) Recorded 4. OneTouch Ultra Blue In Vitro Strip; 1 Strip 3X/weekly & PRN; Therapy: 23Jan2015 to (Evaluate:32Ffh7510); Last Rx:[id number] Ordered 5. Pantoprazole Sodium 40 MG Oral Tablet Delayed Release; TAKE 1 TABLET DAILY; Therapy: 16Jan2014 to (Evaluate:98Diw3430) Requested for: 23Jan2015; Last Rx:[id number] Ordered 6. Pravastatin Sodium 40 MG Oral Tablet; TAKE 1 TABLET DAILY AT BEDTIME; Therapy: 30Apr2014 to (Evaluate:10Nrs5754) Requested for: 63Opz7045; Last Rx:[id number] Ordered 7. Taztia XT 180 MG Oral Capsule Extended Release 24 Hour; TAKE 1 CAPSULE DAILY; Therapy: 19Sep2014 to Recorded 8. TraZODone HCl - 50 MG Oral Tablet; TAKE 1 TABLET Bedtime; Therapy: 26Jun2014 to (Evaluate:92Gmm9265) Recorded Allergies 1. No Known Drug Allergies Vitals Recorded: 06Mar2015 02:59PM Heart Rate 78 Systolic 146 Diastolic 80 O2 Saturation 98 Height 5 [...] varicosities: Normal. Abdomen Abdomen: Non-tender, no masses. Anus, perineum, and rectum: Abnormal. (There is a large bolus of stool palpated digitally. However,it is a soft mass rather than a formed stool) Rectum examination showed a normal anus. The sphincter tone was normal. There was no rectal tenderness. Procedure Manual disimpaction attempted. KY jelly used, finger inserted in the rectum to find a large bolus of fecal material soft from the stool softeners. Small amounts of stool removed but no large amount of material was obtained. Pt able to evacuate a small amount after this. MA also attempted to remove impaction with similar results. Assessment 1. Fecal impaction (560.32) (K56.41) 2. Constipation (564.00) (K59.00) Plan Constipation 1. Follow-up PRN Outpatient Follow-up Status: Complete Done: [id number] Ordered; For: Constipation; Ordered By: Noemi Barnard Performed: Due: 69Dcd6823 Hypertension 2. AmLODIPine Besylate 5 MG Oral Tablet; TAKE 1 TABLET DAILY Rx By: Noemi Barnard; Dispense: 30 Days ; #:30 Tablet; Refill: 1; For: Hypertension; HI = N; Verified Transmission to [facility] 81231; Last Updated By: [email or web address]; 03/06/2015 5:37:22 PM Unlinked 3. Taztia XT 180 MG Oral Capsule Extended Release 24 Hour Dispense: 0 Days ; #: Sufficient Capsule Extended Release 24 Hour; Refill: 0; HI = N; Record; LastUpdated By: Noemi Barnard; 03/06/2015 5:36:27 PM Discussion/Summary 1. Fecal impaction/constipation. Patient had recent colonoscopy February 15, which revealed fecal impaction manually disimpacted 2. Extensive left-sided diverticulosis 3. Hemorrhoids, otherwise negative. 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 She is on Taztia XT which can be very constipating, will discontinue this and start amlodipine 5 mgand see if this helps. Continue a fleet enema tonight and one in the morning to see if that helps with success. Would have her follow up in one month to reassess blood pressure, earlier if not successful with her impaction. Otherwise, off to ER if worse. RTO PRN. Signatures Electronically signed by : Noemi Barnard M.D.; Mar 07 2015 3:29PM DIRECTOR PRIVATE (Author) documented in this encounter Plan of Treatment Not on file documented as of this encounter Visit Diagnoses Not on filedocumented in this encounter
--- OUTSIDE RECORDS SUMMARY | 2024-04-05 00:28 | XMS_ITS | Encounter Summary ---
Author Organization [facility] Address [address] [place] [address]. [place] [address] [place] [address] Care Team Providers Care Tennis Ball Cover Cementer Name Role Phone Unavailable Primary Care Provider Unavailabl e Encounter Details Date Type Department Care Team (Latest Contact Info) Description 02/11/2015 Abstract [facility] Medical Group Social History Tobacco Use Types Packs/Day Years Used Date Smoking Tobacco: Never Assessed Comments Unknown Sex and Gender Information Value Date Recorded Sex Assigned at Not on file Legal Sex Female 8:14 PM CDT Gender Identity Not on file Sexual Orientation Not on file documented as of this encounter Progress Notes * Generic Conversion MD Brady - 02/11/2015 9:51 AM CST Message Recorded as Task Date: 02/08/2015 10:25 AM, Created By: Radha Monge Task Name: Results Inquiry Assigned To: Tesha Dinero Regarding Patient: Roxana Ch, Status: Active Comment: Radha Monge - 08 Feb 2015 10:25 AM TASK CREATED Caller: Self; Roxana would like a call letting her know if she can resume her medication. Her lab results are in her chart. Noemi Hoffman - 08 Feb 2015 11:02 AM TASK EDITED pt cld again, gave ok to leave a detailed msg on her machine as she may be at lunch when you call. Tesha Dinero - 08 Feb 2015 12:05 PM TASK REASSIGNED: [facility] Diana Delgado - 08 Feb 2015 12:08 PM TASK REPLIED TO: Previously Assigned To Tesha Dinero I don't see a note in the chart indicating why any medications would be held. Was this advised fromDr. Childress's office? Thank you. Radha Monge - 08 Feb 2015 1:07 PM TASK EDITED Pt called again because she is starting to have side affects from not taking her Janumet that was held per Radiology, as always, for her MRI. The labs were drawn and the result sent to our office because we ordered the lab. Dr. Cabello gave me the okay to have the pt resume her Janumet. Radha Monge - 08 Feb 2015 1:07 PM TASK EDITED The pt has been made aware to resume her medication at this time per her Creatine lab. Task complete Diana Delgado - 08 Feb 2015 3:15 PM TASK REPLIED TO: Previously Assigned To Diana Delgado Thank you Signatures Electronically signed by : Tesha Dinero, ; Feb 11 2015 9:51AM BOILER ENGINEER (Author) documented in this encounter Plan of Treatment Not on file documented as of this encounter Visit Diagnoses Not on filedocumented in this encounter
--- OUTSIDE RECORDS SUMMARY | 2024-04-05 00:28 | XMS_ITS | Encounter Summary ---
Author Organization [facility] Address [address] [place] [address]. [place], [place] [address] [place] [address] Care Team Providers Care Brown Sourer Name Role Phone Noemi Barnard MD Primary Care Provider Encounter Details Date Type Department Care Team (Late st Contact Info) Description 10/14/2015 Abstract [facility] [address] [place], [place] [id number] [place] [address] [place] [address] Social History Tobacco Use Types Packs/Day Years [...] hypothyroidism documented in this encounter Care Teams Brown Sourer Relationship Specialty Start Date End Date Noemi Barnard MD PCP - General INTERNAL MEDICINE 02/22/18 07/03/18 documented as of this encounter
--- OUTSIDE RECORDS SUMMARY | 2024-04-05 00:28 | XMS_ITS | Encounter Summary ---
Author Organization [facility] Address [address] [place] [address]. [place], [place] [address] [place] [address] Care Team Providers Care Media Center Assistant Name Role Phone Unavailable Primary Care Provider Unavailabl e Encounter Details Date Type Department Care Team (Latest Contact Info) Description 06/03/2015 Abstract [facility] Medical Group Social History Tobacco Use Types Packs/Day Years Used Date Smoking Tobacco: Never Assessed Comments Unknown Sex and Gender Information Value Date Recorded Sex Assigned at Not on file Legal Sex Female 8:14 PM CDT Gender Identity Not on file Sexual Orientation Not on file documented as of this encounter Progress Notes * Noemi Barnard MD - 06/03/2015 6:30 AM CST Verified Results Hemoglobin A1C ( HA1C ) 93Obn2121 08:53AM Noemi Barnard Test Name Result Flag Reference Hemoglobin A1c 6.0 % H <5.7 INCREASED RISK OF DIABETES <5.7% NON-DIABETES 5.7-6.4% INCREASED RISK FOR FUTURE DIABETES > OR = 6.5 CONSISTENT WITH DIABETES STANDARDS OF MEDICAL CARE IN DIABETES-2010 DIABETES CARE, 33(SUPP 1): S1-S61,2009 documented in this encounter Plan of Treatment Not on file documented as of this encounter Visit Diagnoses Not on filedocumented in this encounter
--- OUTSIDE RECORDS SUMMARY | 2024-04-05 00:28 | XMS_ITS | Encounter Summary ---
Author Organization [facility] Address [address] [place] [address]. [place] [address] [place] [address] Care Team Providers Care Customer Experience Retail Clerk Name Role Phone Unavailable Primary Care Provider Unavailabl e Encounter Details Date Type Department Care Team (Latest Contact Info) Description 06/05/2015 Abstract [facility] Medical Group Social History Tobacco Use Types Packs/Day Years Used Date Smoking Tobacco: Never Assessed Comments Unknown Sex and Gender Information Value Date Recorded Sex Assigned at Not on file Legal Sex Female 8:14 PM CDT Gender Identity Not on file Sexual Orientation Not on file documented as of this encounter Progress Notes * Rhianna Castaneda Md, MD - 06/05/2015 3:04 PM CST Message Recorded as Task Date: 06/03/2015 06:30 AM, Created By: Noemi Barnard Task Name: Call Patient with results Ass[facility]: [facility] [...] signed by : Bianca Larson MA; Jun 05 2015 3:04PM REFRIGERATION ENGINEERING TEACHER (Author) documented in this encounter Plan of Treatment Not on file documented as of this encounter Visit Diagnoses Not on filedocumented in this encounter
--- OUTSIDE RECORDS SUMMARY | 2024-04-05 00:28 | XMS_ITS | Encounter Summary ---
Author Organization [facility] Address [address] [facility] [place] [address] [place] [address] Care Team Providers Care Ccna Name Role Phone Unavailable Primary Care Provider Unavailabl e Encounter Details Date Type Department Care Team (Latest Contact Info) Description 02/08/2015 Abstract [facility] [place] [address] [place] [address] Social History Tobacco Use Types [...] Procedure Name Priority Date/Time Associated Diagnosis Comments CREATININE WHOLE BLOOD Routine 02/08/2015 7:39 AM LABORER HIGH DENSITY PRESS documented in this encounter Results * CREATININE WHOLE BLOOD (02/08/2015 7:39 AM LABORER HIGH DENSITY PRESS) CREATININE WHOLE BLOOD 0.9 0.6 - 1.3 MG/DL [facility] TO EPIC CONVERSION 02/08/2015 7:39 AM LABORER HIGH DENSITY PRESS 02/08/2015 7:39 AM LABORER HIGH DENSITY PRESS Narrative [facility] TO EPIC CONVERSION - 02/08/2015 7:57 AM LABORER HIGH DENSITY PRESS Result Communication: No patient communication needed at this time Noemi Barnard MD LABORATORY Final Result [facility] TO EPIC CONVERSION documented in this encounter Visit Diagnoses Not on filedocumented in this encounter
--- OUTSIDE RECORDS SUMMARY | 2024-04-05 00:28 | XMS_ITS | Encounter Summary ---
Author Organization [facility] Address [address] [place] [address]. [place] [address] [place] [address] Care Team Providers Care Sea Kayaking Guide Name Role Phone Noemi Barnard MD Primary Care Provider + [phone] Joni Mckeon MD Unavailable [phone] Martha Ruiz NP Primary Care Provider Noemi Gracia MD Primary Care Provider + [phone] Sandra Johnson RN Unavailable [phone] None, Provider Primary Care Provider Unavaila ble Encounter Details Date Type Department Care Team (Late st Contact Info) Description 11/04/2015 Abstract [facility] CONVERSION [address] [place] [address] , Generic Conversion, Social History [...] Rule Out 02/12/2020 02/12/2020 02/13/2020 8:51 AM WATER INSPECTOR COVID-19 Rule Out 04/16/2020 04/16/2020 04/17/2020 6:26 PM WATER INSPECTOR COVID-19 Rule Out 05/14/2021 05/14/2021 05/14/2021 11:02 AM WATER INSPECTOR documented as of this encounter Care Teams Sea Kayaking Guide Relationship Specialty Start Date End Date Noemi Barnard MD PCP - General INTERNAL MEDICINE 02/22/18 07/03/18 Martha Ruiz, LEAN SPECIALIST [facility]. [facility] [address] [place] [address] PCP - General NURSE PRACTITIONER 07/04/18 08/22/18 Noemi Barnard MD PCP - General INTERNAL MEDICINE 08/23/18 03/03/23 None, Provider, PCP - General UNKNOWN PHYSICIAN SPECIALTY 03/04/23 Joni Mckeon MD [facility]. [facility] [address] [place] [address] [place] Physical Security Manager CARDIOVASCULAR DISEASE 07/04/18 Sandra Johnson, RN [address] [place], [place] [id number] Construction Carpenters Helper (Ambulatory) REGISTERED NURSE 05/12/21 06/29/21 documented as of this encounter
--- OUTSIDE RECORDS SUMMARY | 2024-04-05 00:28 | XMS_ITS | Encounter Summary ---
Author Organization [facility] Address [address] [place] [address]. [place] [address] [place] [address] Care Team Providers Care Rn Diabetes Name Role Phone Unavailable Primary Care Provider Unavailabl e Encounter Details Date Type Department Care Team (Late st Contact Info) Description 08/07/2015 Abstract [facility] Medical Group Family & Internal Medicine [facility] [address] [place] [address] [place] [address] [place] [address] Social History Tobacco Use Types Packs/Day Years Used Date Smoking Tobacco: Never Assessed Comments Unknown Sex and Gender Information Value Date Recorded Sex Assigned at Not on file Legal Sex Female 8:14 PM CDT Gender Identity Not on file Sexual Orientation Not on file documented as of this encounter Last Filed Vital Signs Vital Sign Reading Time Taken Comments Blood Pressure 122/70 08/07/2015 1:38 PM CDT Pulse 62 08/07/2015 1:38 PM CDT Temperature - - Respiratory Rate - - Oxygen Saturation - - Inhaled Oxygen Concentration - - Weight 54.4 kg (120 lb) 08/07/2015 1:38 PM CDT Height 157.5 cm (5' 2 ) 08/07/2015 1:38 PM CDT Body Mass Index 21.95 08/07/2015 1:38 PM CDT documented in this encounter Progress Notes * Noemi Barnard MD - 08/07/2015 1:30 PM CDT Reason For Visit Acute Visit Chief Complaint Pt here for follow up for insomnia, htn, hyperlipidemia and DM2. History of Present Illness HPI Free Text: An 80-year-old female here for follow-up. She has diabetes, hypertension, hyperlipidemia; all of which are stable. Also has hypothyroidism and had most of her thyroid out years ago. May 27, 2015, her TSH was 0.45. Patient complains of difficulty maintaining her weight. She is 120 now, has beenas low as 114 after surgery. However, she used to be 150 pounds in the past. Also she is having trouble sleeping, takes 1 or 2 trazodone. This helps her sleep. However, if she takes 2, she feels groggy. Insomnia (Follow-Up): The patient is being seen for follow-up of insomnia. The patient reports no change in the condition. There are no comorbid illnesses. She has had no significant interval events.The patient is currently asymptomatic. Medications: the patient is adherent to her medication regimen, but she denies medication side effects. Hyperlipidemia (Follow-Up): The [...] insomnia. Neurological tingling. Active Problems 1. Abdominal pain [...] (780.52) (G47.00) 12. Melena (578.1) (K92.1) 13. Rash, skin (782.1) (R21) 14. Screening mammogram for high-risk patient (V76.11) (Z12.31) 15. Vitamin d deficiency (268.9) (E55.9) Past Medical [...] ML Intramuscular Suspension Prefilled Syringe --- Series1: 07Jan2015 Current Meds 1. AmLODIPine Besylate 5 MG Oral Tablet; TAKE 1 TABLET BY MOUTH DAILY; Therapy: 01Rln6926 to (Evaluate:34Idh9102) Requested for: 29Apr2015; Last Rx:29Apr2015 Ordered 2. Enalapril Maleate 20 MG Oral Tablet; TAKE 1 TABLET TWICE DAILY; Therapy: 23Jan2014 to Recorded 3. Janumet 50-500 MG Oral Tablet; TAKE ONE TABLET BY MOUTH TWICE DAILY WITH MEALS; Therapy: 27Aug2014 to (Evaluate:35Ara8052) Requested for: 97Eyj5669; Last Rx:[id number] Ordered 4. Levothyroxine Sodium 75 MCG Oral Tablet; TAKE 1 TABLET BY MOUTH DAILY; Therapy: 30Apr2014 to (Evaluate:57Ywq9394) Requested for: 35Vnn0273; Last Rx:[id number] Ordered 5. OneTouch Ultra Blue In Vitro Strip; 1 Strip 3X/weekly & PRN; Therapy: 23Jan2015 to (Evaluate:75Ely1603); Last Rx:[id number] Ordered 6. Pantoprazole Sodium 40 MG Oral Tablet Delayed Release; TAKE 1 TABLET DAILY; Therapy: 16Jan2014 to (Evaluate:48Eae2371) Requested for: 23Jan2015; Last Rx:[id number] Ordered 7. Pravastatin Sodium 40 MG Oral Tablet; TAKE ONE TABLET BY MOUTH AT BEDTIME; Therapy: 30Apr2014 to (Evaluate:37Loz9423) Requested for: 94Npo8609; Last Rx:[id number]; Status: ACTIVE - Renewal Denied Ordered 8. TraZODone HCl - 50 MG Oral Tablet; TAKE 1 TO 2 TABLETS BY MOUTH EVERY NIGHT AT BEDTIME NEEDED FOR INSOMNIA; Therapy: 26Jun2014 to (Evaluate:83Ujp7350) Requested for: 07Gpi8972; Last Rx:[id number] Ordered Allergies 1. No Known Drug Allergies Vitals Recorded: 49Ybd1778 01:38PM Heart Rate 62 Systolic 122 Diastolic 70 O2 Saturation 98 Height 5 ft 2 in Weight 120 lb BMI Calculated 21.95 BSA Calculated 1.54 Physical Exam Constitutional General [...] Assessment 1. Diabetes mellitus (250.00) (E11.9) 2. Hyperlipidemia (272.4) (E78.5) 3. Hypertension (401.9) (I10) 4. Insomnia (780.52) (G47.00) 5. Never a smoker 6. Hypothyroidism (244.9) (E03.9) Plan Constipation, Insomnia 1. Levothyroxine Sodium 50 MCG Oral Tablet; TAKE 1 TABLET DAILY DIRECTED Rx By: Noemi Barnard; Dispense: 90 Days ; #:90 Tablet; Refill: 1; For: Constipation, Insomnia; HI = N; Verified Transmission to [facility] [address]; Msg to Pharmacy: this is a dose decrease; Last Updated By: YODIL; 08/07/2015 2:18:36 PM Hyperlipidemia 2. Pravastatin Sodium 40 MG Oral Tablet; TAKE ONE TABLET BY MOUTH AT BEDTIME Rx By: Noemi Barnard; Dispense: 90 Days ; #:90 Tablet; Refill: 1; For: Hyperlipidemia; HI = N; Verified Transmission to [facility] [address]; Msg to Pharmacy: sent to include refill; Last Updated By: [employer]; 08/07/2015 2:18:36 PM Hypothyroidism 3. TSH W Reflex Free T4; Status:Active; Requested for:37Ebv7493; Perform:[facility]; Due:42Rce5158;Ordered; For:Hypothyroidism; Ordered By:Noemi Barnard; 4. Follow-up visit in 3 months Outpatient Follow-up Status: Complete Done: 51Vmn5100 Ordered; For: Hypothyroidism; Ordered By: Noemi Barnard Performed: Due: 15Wfy0398; Last Updated By: Robe Galvez; 08/07/2015 2:21:32 PM Insomnia 5. Melatonin 1 MG Oral Capsule; TAKE 1 CAPSULE AT BEDTIME NEEDED Rx By: Noemi Barnard; Dispense: 30 Days ; #:30 Capsule; Refill: 0; For: Insomnia; HI = N; Print Rx Discussion/Summary 1. Diabetes is stable. Continue the same. 2. Hyperlipidemia and hypertension stable. Continue the same. 3. For insomnia, I would like to see her do less trazodone. We will have her try melatonin with a single trazodone and see how this helps. Also, we will decrease her thyroid medication from 0.075 to 0.050 and see if this helps. This also might make it easier for her to maintain or gain weight. We will have her check a TSH before followup in 3 months. RTO at that time, otherwise PRN. Signatures Electronically signed by : Noemi Barnard M.D.; Aug 08 2015 4:03PM METAL REED TUNER (Author) documented in this encounter Plan of Treatment Not on file documented as of this encounter Visit Diagnoses Not on filedocumented in this encounter
--- OUTSIDE RECORDS SUMMARY | 2024-04-05 00:29 | XMS_ITS | Encounter Summary ---
Author Organization [facility] Address [address] [place] [address]. 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
--- OUTSIDE RECORDS SUMMARY | 2024-04-05 00:29 | XMS_ITS | Encounter Summary ---
Author Organization [facility] Address [address] [place] [address]. [place], [place] [address] [place] [address] Care Team Providers Care Django Developer Name Role Phone Unavailable Primary Care Provider Unavailabl e Encounter Details Date Type Department Care Team (Latest Contact Info) Description 01/31/2015 Abstract [facility] Medical Group Social History Tobacco Use Types Packs/Day Years Used Date Smoking Tobacco: Never Assessed Comments Unknown Sex and Gender Information Value Date Recorded Sex Assigned at Not on file Legal Sex Female 8:14 PM CDT Gender Identity Not on file Sexual Orientation Not on file documented as of this encounter Progress Notes * Rhianna Castaneda Md, MD - 01/31/2015 11:01 AM CDT Message Recorded as Task Date: 01/31/2015 10:29 AM, Created By: Bianca Larson Task Name: Follow Up [facility] Team Regarding Patient: Roxana Ch, Status: Active Comment: Bianca Larson - 31 Jan 2015 10:29 AM TASK CREATED left message to call back about right wrist DME. Bianca Larson - 31 Jan 2015 11:01 AM TASK EDITED discussed with pt that she is needing appt to discuss wrist issues in order to be able to get the wrist brace. Pt instr me to disregard she does not want the brace after all. Signatures Electronically signed by : Bianca Larson, ; Jan 31 2015 11:01AM PARTS SALESPERSON (Author) documented in this encounter Plan of Treatment Not on file documented as of this encounter Visit Diagnoses Not on filedocumented in this encounter
--- OUTSIDE RECORDS SUMMARY | 2024-04-05 00:29 | XMS_ITS | Encounter Summary ---
Author Organization [facility] Address [address] [place] [address]. [place] [address] [place] [address] Care Team Providers Care Auto Parts Handler Name Role Phone Unavailable Primary Care Provider Unavailabl e Encounter Details Date Type Department Care Team (Latest Contact Info) Description 01/02/2015 Abstract [facility] Medical Group Social History Tobacco Use Types Packs/Day Years Used Date Smoking Tobacco: Never Assessed Comments Unknown Sex and Gender Information Value Date Recorded Sex Assigned at Not on file Legal Sex Female 8:14 PM CDT Gender Identity Not on file Sexual Orientation Not on file documented as of this encounter Progress Notes * Noemi Barnard MD - 01/02/2015 6:12 PM CDT Verified Results CBC W Differential [id number] 09:10AM Noemi Barnard Test Name Result Flag Reference White Blood Cell Count (WBC) 3.8 x10'3/uL L 4.4-11.0 Red Blood Cell Count (RBC) 4.62 x10'6/uL 4.50-5.10 Hemoglobin (HGB) 13.3 G/DL 12.3-15.3 Hematocrit (HCT) 40.7 % 35.9-44.6 Mean Corpuscular Volume (MCV) 88.1 FL 80.0-96.0 Mean Corpuscular Hgb (MCH) 28.8 PG 25.3-30.9 Mean Corpuscular Hgb Conc (MCH 32.7 G/DL 31.0-34.1 Red Cell Distrib Width (RDW) 13.1 % 12.4-15.1 Platelet Count (PLT) 210 x10'3/uL 151-353 Mean Platelet Volume (MPV) 10.9 FL 9.6-12.0 Basophils % (Auto) 0.8 % 0.0-1.3 Eosinophils % (Auto) 2.6 % 0.0-5.6 Neutrophils % (Auto) 72.3 % H 42.1-71.9 Lymphocytes % (Auto) 17.5 % 15.8-45.0 Monocytes % (Auto) 6.5 % 5.7-12.5 Immature Granulocytes 0.3 % 0.0-0.5 Total Absolute Neutrophils 2.75 x10'3/uL 1.40-6.00 WBC Morphology NORMAL Platelet Evaluation NORMAL RBC Morphology NORMAL Compr Metabolic Prof ( CMP ) [id number] 09:10AM Noemi Barnard Test Name Result Flag Reference Sodium (Na) 142 MMOL/L 136-145 Potassium (K) 4.5 MMOL/L 3.5-5.1 Chloride (Cl) 105 MMOL/L 98-107 Carbon Dioxide (CO2) 25.0 MMOL/L 23-31 Anion Gap 16.5 MMOL/L 10.0-24.0 Blood Urea Nitrogen (BUN) 11 MG/DL 9.8-20.1 Creatinine 0.7 MG/DL 0.57-1.11 Glomerular Filt Rate Calc (Report) >60 >60 GFR Reference Range: Kidney Failure - <15mL/min Chronic Kidney Disease - <60mL/min Normal Kidney Function - >60mL/min GFR calculation is not recommended for Patients less than 18 years or greater than 70 years as per the national Kidney Foundation. If the patient is -[place], multiply results by 1.21 BUN Creatinine Ratio 15.7 6.0-26.0 Glucose 88 MG/DL 83-110 Osmolality Calc 282 MOSM/KG 271-290 Calcium 10.0 MG/DL 8.4-10.2 Total Bilirubin 0.6 MG/DL 0.2-1.2 AST/GOT 15 UNITS/L 5-34 ALT/GPT 11 UNITS/L 6-55 Alkaline Phosphatase (ALKP) 80 UNITS/L 30-130 Total Protein 6.5 G/DL 6.4-8.3 Albumin 4.1 G/DL 3.4-4.8 A:G Ratio 1.7 RATIO 1.1-1.9 Hemoglobin A1C ( HA1C ) 27Dec2014 09:10AM Noemi Barnard Test Name Result Flag Reference Hemoglobin A1c 5.8 % H <5.7 INCREASED RISK OF DIABETES <5.7% NON-DIABETES 5.7-6.4% INCREASED RISK FOR FUTURE DIABETES > OR = 6.5 CONSISTENT WITH DIABETES STANDARDS OF MEDICAL CARE IN DIABETES-2009 DIABETES CARE, 33(SUPP 1): S1-S61,2009 Lipid W/ Calculated LDL [id number] 09:10AM Noemi Barnard Test Name Result Flag Reference CHOLESTEROL 143 MG/DL <200 TRIGLYCERIDE 88 MG/DL <150 HDL CHOLESTEROL 57 MG/DL >55 LDL CALCULATED 68.4 MG/L <130 CHOL/HDL RATIO 2.5 INTERPRETATION OF RESULTS NHLBI RECOMMENDED RANGES CHOLESTEROL MG/DL LDL MG/DL DESIRABLE <200 <130 BORDERLINE 200-239 130-159 HIGH RISK >240 >160 REFERENCE VALUE FOR HDL CHOLESTEROL RISK LEVEL MALE MG/DL FEMALE MG/DL DECREASED >45 >55 AVERAGE 45 55 INCREASED <45 <55 TSH W Reflex Free T4 [id number] 09:10AM Noemi Banrard Test Name Result Flag Reference TSH w Reflex Free T4 0.44 uIU/mL 0.35-4.94 FREE T4 NOT INDICATED Vitamin B12 And Folate [id number] 09:10AM Noemi Barnard Test Name Result Flag Reference Vitamin B12 660 pg/mL 213-816 Folate. 15.13 ng/mL 7.0-31.4 Vitamin D 25 - Hydroxy [id number] 09:10AM Noemi Barnard Test Name Result Flag Reference Vitamin D 25-Hydroxy 37 NG/ML 30-100 SUPPLEMENTING WITH VITAMIN D2 MAY RESULT IN FALSELY LOW RESULTS, CLINICAL CORRELATION NEEDED. INTERPRETATION DEFICIENT <20 INSUFFICIENT 20-30 SUFFICIENT 30-100 POTENTIAL INTOXICATION >[address] [facility] [address] [place] [address] documented in this encounter Plan of Treatment Not on file documented as of this encounter Visit Diagnoses Not on filedocumented in this encounter
--- OUTSIDE RECORDS SUMMARY | 2024-04-05 00:29 | XMS_ITS | Encounter Summary ---
Author Organization [facility] Address [address] [place] [address]. [place] [address] [place] [address] Care Team Providers Care Edge Banding Off Bearer Name Role Phone Unavailable Primary Care Provider Unavailabl e Encounter Details Date Type Department Care Team (Latest Contact Info) Description 01/15/2015 Abstract [facility] [place] [address] [place] [address] Social History Tobacco Use [...]
--- OUTSIDE RECORDS SUMMARY | 2024-04-05 00:29 | XMS_ITS | Encounter Summary ---
Author Organization [facility] Address [address] [place] [address]. [place], [place] [address] [place] [address] Care Team Providers Care Package Winder Name Role Phone Noemi Barnard MD Primary Care Provider [phone] Encounter Details Date Type Department Care Team (Late st Contact Info) Description 09/20/2014 Abstract [facility] Outpatient Rehab [address] [place] [address] Yeison Atwood MD [address] [place] [address] Social History Tobacco Use Types [...] as of this encounter Visit Diagnoses Diagnosis Hearing loss Unspecified hearing loss documented in this encounter Care Teams Package Winder Relationship Specialty Start Date End Date Noemi Barnard MD PCP - General INTERNAL MEDICINE 02/22/18 07/03/18 documented as of this encounter
--- OUTSIDE RECORDS SUMMARY | 2024-04-05 00:29 | XMS_ITS | Encounter Summary ---
Author Organization [facility] Address [address] [place] [address]. [place], [place] [address] [place] [address] Care Team Providers Care Stapler Coil Unit Name Role Phone Noemi Barnard MD Primary Care Provider [phone] Encounter Details Date Type Department Care Team (Late st Contact Info) Description 02/06/2015 Abstract [facility] [address] [place], [place] [id number] Christos Burrows MD [address] [facility] [address] [address] Social History Tobacco Use Types Packs/Day Years [...] as of this encounter Visit Diagnoses Diagnosis Abnormal weight loss Loss of weight documented in this encounter Care Teams Stapler Coil Unit Relationship Specialty Start Date End Date Noemi Barnard MD PCP - General INTERNAL MEDICINE 02/22/18 07/03/18 documented as of this encounter
--- OUTSIDE RECORDS SUMMARY | 2024-04-05 00:29 | XMS_ITS | Encounter Summary ---
Author Organization [facility] Address [address] [place] [address]. [place] [address] [place] [address] Care Team Providers Care Sanitary Chemist Name Role Phone Unavailable Primary Care Provider Unavailabl e Encounter Details Date Type Department Care Team (Latest Contact Info) Description 01/03/2015 Abstract [facility] Medical Group , Rhianna Castaneda, Social History Tobacco Use Types Packs/Day Years [...] Name Priority Date/Time Associated Diagnosis Comments MG DIAGNOSTIC KARLA DIGI Routine 01/03/2015 2:01 PM CDT documented in this encounter Results * MG DIAGNOSTIC KARLA DIGI (01/03/2015 2:01 PM CDT) Anatomical Region Laterality Modality Breast Bilateral Mammography 01/03/2015 2:01 PM CDT 01/03/2015 2:01 PM CDT Narrative 01/03/2015 4:48 PM CDT ROXANA RITCHIE ORDERING MD: NONSTAFF,PHYSICIAN ?? ACCT: [id number] ?? ADMIT/SERVICE DATE: 01/03/15 DISCHARGE DATE: ?? : 1935 PT TYPE: REG CLI ?? SEX: F ORD SITE: [facility] ? STUDY DATE REPORT # ORDER # EXT ORDER ID ?? 01/03/15 [id number] ? PROCEDURE CODE PROCEDURE DESCRIPTION ? DXMAMDIGBI MG DIAGNOSTIC MAMMO DIGITAL BI ? CHART DOCUMENT ? DIVISION OF RADIOLOGY ? ACCESSION # ?EXAM DATE ? EXAM DESCRIPTION ?? [id number] ?01/03/2015 ?MG DIAGNOSTIC MAMMO DIGITAL BI ? IMAGING STUDIES: ??BILATERAL DIAGNOSTIC MAMMOGRAM WITH CAD, 01/03/15 ? INDICATION: ??HISTORY OF PARTIAL MASTECTOMY LEFT BREAST IN 2011. ??PARTIAL ?? REDUCTION IN 2012. ??FOLLOW-UP OF CATEGORY 4 MICROCALCIFICATIONS RIGHT ?? BREAST AND PROBABLE BENIGN CALCIFICATIONS LEFT BREAST. ? COMPARISON: ??COMPARISON IS MADE WITH 08/18/13 AND 02/22/14 EXAMINATION FROM ? [facility]. ? BILATERAL CC, MLO, ML, FOCAL COMPRESSION RIGHT ML AND LEFT CC. ? MODERATE AMOUNT OF BREAST PARENCHYMA PRESENT. ??DISTRIBUTION OF NODULARITY ?? REMAINS SIMILAR WITH BENIGN MICROCALCIFICATIONS AGAIN NOTED. ? WITHIN THE LEFT BREAST, BEST SEEN ON THE CC VIEW DEEP THIRD LATERAL TO THE ?? NIPPLE LINE IS RE-DEMONSTRATION OF A LINEAR CALCIFICATION MOST LIKELY ?? REPRESENTING A VASCULAR CALCIFICATION AND THIS IS CONSIDERED A BENIGN ?? FINDING. ? THERE IS RE-DEMONSTRATION OF A CLUSTER OF PLEOMORPHIC MICROCALCIFICATIONS ?? PRESENT WITHIN THE MIDDLE THIRD RIGHT BREAST, BELOW THE NIPPLE LINE ON THE ?? ML VIEW. ??NO ASSOCIATED SOFT TISSUE MASS. ??THESE REMAIN UNCHANGED IN ?? APPEARANCE AND REMAIN A SUSPICIOUS ABNORMALITY, BI-RADS CATEGORY 4. ? IMPRESSION: ? RE-DEMONSTRATION OF PLEOMORPHIC CALCIFICATIONS WITHIN THE RIGHT BREAST, ?? CIRCLED ON THE FILM. ??THESE REMAIN GROSSLY SIMILAR IN APPEARANCE AND TISSUE ? SAMPLING SHOULD BE CONSIDERED. ? BI-RADS CATEGORY 4. ? MQSA MAMMOGRAM CLASSIFICATION ? BI-RADS CATEGORY 0-NEED ADDITIONAL IMAGING EVALUATION ?? BI-RADS CATEGORY 1-NEGATIVE ?? BI-RADS CATEGORY 2-BENIGN FINDINGS ?? BI-RADS CATEGORY 3-PROBABLY BENIGN FINDING-SHORT INTERVAL FOLLOW UP ?? SUGGESTED ?? BI-RADS CATEGORY 4-SUSPICIOUS ABNORMALITY-BIOPSY SHOULD BE CONSIDERED ?? BI-RADS CATEGORY 5-HIGHLY SUGGESTIVE OF MALIGNANCY-APPROPRIATE ACTION ?? SHOULD BE TAKEN ? ELECTRONICALLY SIGNED BY ?? JANE REEVES M.D. 01/03/2015 04:46 P ? ANS/JV ?? 01/03/201502:01 P ?? 01/03/2015 02:52 P ?? JOB NO: ??[id number] ??DOC NO: ??[id number] ?? CC: ?MD NONSTAFF ? Procedure Note Rhianna Bermudez MD - 01/26/2018 ROXANA RITCHIE ORDERING MD: JENNIFERPHYSICIAN ACCT: [id number] ADMIT/SERVICE DATE: 01/03/15 DISCHARGE DATE: : 1935 PT TYPE: REG CLI SEX: F ORD SITE: [facility] STUDY DATE REPORT # ORDER # EXT ORDER ID 01/03/15 [id number] PROCEDURE CODE PROCEDURE DESCRIPTION DXMAMDIGBI MG DIAGNOSTIC MAMMO DIGITAL BI CHART DOCUMENT DIVISION OF RADIOLOGY ACCESSION # EXAM DATE EXAM DESCRIPTION [id number] 01/03/2015 MG DIAGNOSTIC MAMMO DIGITAL BI IMAGING STUDIES: BILATERAL DIAGNOSTIC MAMMOGRAM WITH CAD, 01/03/15 INDICATION: HISTORY OF PARTIAL MASTECTOMY LEFT BREAST IN 2011. PARTIAL REDUCTION IN 2012. FOLLOW-UP OF CATEGORY 4 MICROCALCIFICATIONS RIGHT BREAST AND PROBABLE BENIGN CALCIFICATIONS LEFT BREAST. COMPARISON: COMPARISON IS MADE WITH 08/18/13 AND 02/22/14 [facility]. BILATERAL CC, MLO, ML, FOCAL COMPRESSION RIGHT ML AND LEFT CC. MODERATE AMOUNT OF BREAST PARENCHYMA PRESENT. DISTRIBUTION OF NODULARITY REMAINS SIMILAR WITH BENIGN MICROCALCIFICATIONS AGAIN NOTED. WITHIN THE LEFT BREAST, BEST SEEN ON THE CC VIEW DEEP THIRD LATERAL TOTHE NIPPLE LINE IS RE-DEMONSTRATION OF A LINEAR CALCIFICATION MOST LIKELY REPRESENTING A VASCULAR CALCIFICATION AND THIS IS CONSIDERED A BENIGN FINDING. THERE IS RE-DEMONSTRATION OF A CLUSTER OF PLEOMORPHIC MICROCALCIFICATIONS PRESENT WITHIN THE MIDDLE THIRD RIGHT BREAST, BELOW THE NIPPLE LINE ONTHE ML VIEW. NO ASSOCIATED SOFT TISSUE MASS. THESE REMAIN UNCHANGED IN APPEARANCE AND REMAIN A SUSPICIOUS ABNORMALITY, BI-RADS CATEGORY 4. IMPRESSION: RE-DEMONSTRATION OF PLEOMORPHIC CALCIFICATIONS WITHIN THE RIGHT BREAST, CIRCLED ON THE FILM. THESE REMAIN GROSSLY SIMILAR IN APPEARANCE ANDTISSUE SAMPLING SHOULD BE CONSIDERED. BI-RADS CATEGORY 4. MQSA MAMMOGRAM CLASSIFICATION BI-RADS CATEGORY 0-NEED ADDITIONAL IMAGING EVALUATION BI-RADS CATEGORY 1-NEGATIVE BI-RADS CATEGORY 2-BENIGN FINDINGS BI-RADS CATEGORY 3-PROBABLY BENIGN FINDING-SHORT INTERVAL FOLLOW UP SUGGESTED BI-RADS CATEGORY 4-SUSPICIOUS ABNORMALITY-BIOPSY SHOULD BE CONSIDERED BI-RADS CATEGORY 5-HIGHLY SUGGESTIVE OF MALIGNANCY-APPROPRIATE ACTION SHOULD BE TAKEN ELECTRONICALLY SIGNED BY JANE REEVES M.D. 01/03/2015 04:46 P ANS/JV 01/03/201502:01 P 01/03/2015 02:52 P JOB NO: [id number] DOC NO: [id number] CC: NONSTAFF us Generic Conversion Md BERMUDEZ MAMMO Final R esult documented in this encounter Visit Diagnoses Not on filedocumented in this encounter
--- OUTSIDE RECORDS SUMMARY | 2024-04-05 00:29 | XMS_ITS | Encounter Summary ---
Author Organization [facility] Address [address] [place] [address]. [place], [place] [address] [place] [address] Care Team Providers Care Bicycle Subassembler Name Role Phone Noemi Barnard MD Primary Care Provider [phone] Encounter Details Date Type Department Care Team (Late st Contact Info) Description 12/13/2014 Abstract [facility] [address] [place] [address] Yeison Atwood MD [address] [place] [address] Social History Tobacco Use Types [...] loss documented in this encounter Care Teams Bicycle Subassembler Relationship Specialty Start Date End Date Noemi Barnard MD PCP - General INTERNAL MEDICINE 02/22/18 07/03/18 documented as of this encounter
--- OUTSIDE RECORDS SUMMARY | 2024-04-05 00:29 | XMS_ITS | Encounter Summary ---
Author Organization [facility] Address [address] [place] [address]. [place], [place] [address] [place] [address] Care Team Providers Care Tire Installer Name Role Phone Unavailable Primary Care Provider Unavailabl e Encounter Details Date Type Department Care Team (Latest Contact Info) Description 02/07/2015 Abstract [facility] [...]
--- OUTSIDE RECORDS SUMMARY | 2024-04-05 00:29 | XMS_ITS | Encounter Summary ---
Author Organization [facility] Address [address] [place] [address]. [place] [address] [place] [address] Care Team Providers Care Renewals Specialist Name Role Phone Noemi Barnard MD Primary Care Provider [phone] Joni Mckeon MD Unavailable [phone] Martha Ruiz NP Primary Care Provider Noemi Gracia MD Primary Care Provider [phone] Sandra Johnson RN Unavailable [phone] None, Provider Primary Care Provider Unavaila ble Encounter Details Date Type Department Care Team (Late st Contact Info) Description 12/26/2014 Abstract [facility] CONVERSION [address] [place] [address] , Generic Conversion, Social History [...] Rule Out 02/12/2020 02/12/2020 02/13/2020 8:51 AM KNITTING MACHINE OPERATOR AUTOMATIC COVID-19 Rule Out 04/16/2020 04/16/2020 04/17/2020 6:26 PM KNITTING MACHINE OPERATOR AUTOMATIC COVID-19 Rule Out 05/14/2021 05/14/2021 05/14/2021 11:02 AM KNITTING MACHINE OPERATOR AUTOMATIC documented as of this encounter Care Teams Renewals Specialist Relationship Specialty Start Date End Date Noemi Barnard MD PCP - General INTERNAL MEDICINE 02/22/18 07/03/18 Martha Ruiz, DIGITAL COMPUTER SYSTEMS ANALYST [facility]. [facility] [address] [place] [address] PCP - General NURSE PRACTITIONER 07/04/18 08/22/18 Noemi Barnard MD PCP - General INTERNAL MEDICINE 08/23/18 03/03/23 None, Provider, PCP - General UNKNOWN PHYSICIAN SPECIALTY 03/04/23 Joni Mckeon MD [facility]. [facility] [address] [place] [address] [place] Lead Process Engineer CARDIOVASCULAR DISEASE 07/04/18 Sandra Johnson, RN [address] [place], [place] [address] Historical Manuscripts Curator (Ambulatory) REGISTERED NURSE 05/12/21 06/29/21 documented as of this encounter
--- OUTSIDE RECORDS SUMMARY | 2024-04-05 00:29 | XMS_ITS | Encounter Summary ---
Author Organization [facility] Address [address] [place] [address]. [place], [place] [address] [place] [address] Care Team Providers Care Retail Agent Name Role Phone Noemi Barnard MD Primary Care Provider [phone] Encounter Details Date Type Department Care Team (Late st Contact Info) Description 12/27/2014 Abstract [facility] [address] [place], [place] [id number] [place] [address] [place], [place] [id number] Social History Tobacco Use Types Packs/Day Years [...] this encounter Visit Diagnoses Diagnosis Type 2 or unspecified type diabetes mellitus (CMS/HCC HHS/HCC) documented in this encounter Care Teams Retail Agent Relationship Specialty Start Date End Date Noemi Barnard MD PCP - General INTERNAL MEDICINE 02/22/18 07/03/18 documented as of this encounter
--- OUTSIDE RECORDS SUMMARY | 2024-04-05 00:29 | XMS_ITS | Encounter Summary ---
Author Organization [facility] Address [address] [place] [address]. [place], [place] [address] [place] [address] Care Team Providers Care Wire Spooler Name Role Phone Noemi Barnard MD Primary Care Provider [phone] Encounter Details Date Type Department Care Team (Late st Contact Info) Description 11/27/[address] [facility] Outpatient Rehab [address] [place] [address] Yeison Atwood MD [address] [place] [address] Social History Tobacco Use Types [...] loss documented in this encounter Care Teams Wire Spooler Relationship Specialty Start Date End Date Noemi Barnard MD PCP - General INTERNAL MEDICINE 02/22/18 07/03/18 documented as of this encounter
--- OUTSIDE RECORDS SUMMARY | 2024-04-05 00:29 | XMS_ITS | Encounter Summary ---
Author Organization [facility] Address [address] [place] [address]. [place], [place] [address] [place] [address] Care Team Providers Care Mobile Health Vehicle Operator Name Role Phone Unavailable Primary Care Provider Unavailabl e Encounter Details Date Type Department Care Team (Latest Contact Info) Description 12/28/2014 Abstract [facility] Medical Group Social History Tobacco Use [...]
--- OUTSIDE RECORDS SUMMARY | 2024-04-05 00:29 | XMS_ITS | Encounter Summary ---
Author Organization [facility] Address [address] [place] [address]. [place], [place] [address] [place] [address] Care Team Providers Care Api Architect Name Role Phone Noemi Barnard MD Primary Care Provider [phone] Encounter Details Date Type Department Care Team (Late st Contact Info) Description 11/20/2014 Abstract [facility] Outpatient Rehab [address] [place] [address] Yeison Atwood MD [address] [place] [address] Social History Tobacco Use Types [...] as of this encounter Visit Diagnoses Diagnosis Mixed hearing loss Mixed hearing loss, unspecified documented in this encounter Care Teams Api Architect Relationship Specialty Start Date End Date Noemi Barnard MD PCP - General INTERNAL MEDICINE 02/22/18 07/03/18 documented as of this encounter
--- OUTSIDE RECORDS SUMMARY | 2024-04-05 00:29 | XMS_ITS | Encounter Summary ---
Author Organization [facility] Address [address] [place] [address]. [place], [place] [address] [place] [address] Care Team Providers Care Move Coordinator Name Role Phone Unavailable Primary Care Provider Unavailabl e Encounter Details Date Type Department Care Team (Latest Contact Info) Description 01/07/2015 Abstract [facility] Medical Group Social History Tobacco Use [...]
--- OUTSIDE RECORDS SUMMARY | 2024-04-05 00:29 | XMS_ITS | Encounter Summary ---
Author Organization [facility] Address [address] [place] [address]. [place] [address] [place] [address] Care Team Providers Care Rug Washer Name Role Phone Unavailable Primary Care Provider Unavailabl e Encounter Details Date Type Department Care Team (Late st Contact Info) Description 12/25/2014 Abstract [facility] Medical Group Family & Internal Medicine [facility] [id number] [place] [phone] [place] [address] [place] [address] Social History Tobacco Use Types [...] Reading Time Taken Comments Blood Pressure 152/80 12/25/2014 3:28 PM CDT Pulse 83 12/25/2014 3:28 PM CDT Temperature - - Respiratory Rate - - Oxygen Saturation - - Inhaled Oxygen Concentration - - Weight 52.2 kg (115 lb) 12/25/2014 3:28 PM CDT Height 157.5 cm (5' 2 ) 12/25/2014 3:28 PM CDT Body Mass Index 21.03 12/25/2014 3:28 PM CDT documented in this encounter Progress Notes * Noemi Barn[place] MD - 12/25/2014 3:30 PM CDT Reason For Visit New Patient Visit Chief Complaint pt here to get established. Pt c/o lower abd pain and diarrhea with black stools. Increased flatulence after eating. History of Present Illness HPI Free Text: A 79-year-old white female here today to establish herself with a physician. She has been having some abdominal pain associated with diarrhea and black stools. Also she has been having bloating aftereating. The diarrhea and black stools have gotten better but the bloating still persists. She has had a history of cholecystectomy and a hysterectomy. Also history of breast reduction surgery and a history of breast cancer in the past. The other issue is that she has diabetes, hypertension, and hyperlipidemia, has not had labs in a while. Her medications are Janumet 50/500 BID, enalapril 20 mg BID, Cardia XT 180 daily, also pravastatin 40 mg QHS, levothyroxine 75 mg daily. The patient has never been a smoker or a drinker. Abdominal Pain: Roxana Ch presents with complaints of gradual onset of intermittent episodes of mild mid abdominal pain, described as crampy and dull, non- radiating. Symptoms are made worse by eating. Symptoms are improving. Pertinent Medical History: abdominal surgery. Diarrhea, Acute (Brief): The patient is being seen for follow-up of acute diarrhea. The patient presents with complaints of sudden onset of intermittent episodes of mild diarrhea, described as loose and black. Symptoms are resolved. Pertinent Medical History: diabetes. The patient presents with complaints of gradual onset of moderate diffuse abdominal bloating. Symptoms are improved by dietary modification. Symptoms are made worse by eating. Symptoms are unchanged.Risk Factors: hysterectomy. Pertinent Medical History: diabetes. Melena: Roxana Ch presents with complaints of gradual onset of intermittent episodes of mild melena. Her symptoms are caused by no known event. Symptoms are resolved. Hyperlipidemia (Follow-Up): The patient states her hyperlipidemia has been stable since the last visit. Comorbid Illnesses: diabetes mellitus and hypertension. She has no significant interval events. [...] since the last visit. She has no significant interval events. Symptoms: The patient is currently asymptomatic. Associated symptoms include no headache, no focal neurologic deficits and no memory loss. Home monitoring: The patient checks her blood pressure sporadically. Medications: The patient is adherent with her medication regimen. She denies medication side effects. Diabetes Type II (Follow-Up): The patient states she has been stable with her Type II Diabetes control since the last visit. Comorbid Illnesses: hypertension, hyperlipidemia and obesity. She has no significant [...] Head and Face: negative. Eyes: negative. ENT: negative. Cardiovascular: negative. Respiratory: negative. Gastrointestinal: as noted in HPI, abdominal bloating, diarrhea and melena. Genitourinary: negative. Musculoskeletal: negative. Integumentary negative. Psychiatric: negative. Neurological Negative. Active Problems 1. Abdominal pain (789.00) (R10.9) Past Medical History 1. History of arthritis [...] ?? No alcohol use Current Meds 1. Enalapril Maleate 20 MG Oral Tablet; TAKE 1 TABLET TWICE DAILY; Therapy: 23Jan2014 to Recorded 2. Janumet 50-500 MG Oral Tablet; TAKE 1 TABLET TWICE DAILY WITH MEALS; Therapy: [id number] to Recorded 3. Levothyroxine Sodium 75 MCG Oral Tablet; TAKE 1 TABLET BY MOUTH DAILY; Therapy: 30Apr2014 to (Evaluate:[id number]) Recorded 4. Pantoprazole Sodium 40 MG Oral Tablet Delayed Release; TAKE 1 TABLET DAILY; Therapy: 16Jan2014 to (Evaluate:[id number]) Recorded 5. Pravastatin Sodium 80 MG Oral Tablet; TAKE 1 TABLET DAILY; Therapy: 30Apr2014 to Recorded 6. Taztia XT 180 MG Oral Capsule Extended Release 24 Hour; TAKE 1 CAPSULE DAILY; Therapy: 19Sep2014 to Recorded Allergies 1. No Known Drug Allergies Vitals Recorded: 25Dec2014 03:28PM Heart Rate 83 Systolic 152 Diastolic 80 O2 Saturation 95 Height 5 ft 2 in Weight 115 lb BMI Calculated 21.03 BSA Calculated 1.51 Physical Exam Constitutional General appearance: No acute distress, well appearing and well nourished. Eyes Conjunctiva and lids: No swelling, erythema or discharge. Ears, Nose, Mouth, and Throat External inspection of ears and nose: Normal. Cardiovascular Palpation of heart: Normal PMI, no thrills. Auscultation of heart: Normal rate and rhythm, normal S1 and S2, without murmurs. Examination of extremities for edema and/or varicosities: Normal. Abdomen Abdomen: Non-tender, no masses. Liver and spleen: No hepatomegaly or splenomegaly. Lymphatic Palpation of lymph nodes in neck: No lymphadenopathy. Musculoskeletal Gait and station: Normal. Inspection/palpation of joints, bones, and muscles: Normal. Skin Skin and subcutaneous tissue: Normal without rashes or lesions. Neurologic Cranial nerves: Cranial nerves 2-12 intact. Psychiatric Mood and affect: Normal. Counseling The patient was counseled regarding instructions for management, risk factor reductions, prognosis,patient and family education, impressions, risks and benefits of treatment options, importance of compliance with treatment and Long discussion regarding her multiple issues and possible concerns, causes & increased risk of testing such as colonoscopy in her age groupl. Total time of encounter was 45 minutes and 30 minutes was spent counseling. Assessment 1. Diabetes mellitus (250.00) (E11.9) 2. Hypertension (401.9) (I10) 3. History of breast cancer (V10.3) (Z85.3) 4. Hyperlipidemia (272.4) (E78.5) 5. Melena (578.1) (K92.1) 6. Vitamin d deficiency (268.9) (E55.9) Plan Diabetes mellitus 1. Janumet 50-500 MG Oral Tablet; TAKE 1 TABLET TWICE DAILY WITH MEALS Rx By: Noemi [place]; Dispense: 90 Days ; #:180 Tablet; Refill: 0; For: Diabetes mellitus; HI = N; Verified Transmission to [facility] 36619; Last Updated By: [email or web address] [email or web address]; 12/25/2014 4:22:27 PM History of breast cancer 2. MG DIAGNOSTIC MAMMO DIGITAL BI; Status:Active; Requested for:[id number]; Perform:[facility] Radiology; Due:24Jan2015; Last Updated By:Stormy Jackman; 12/25/2014 4:33:47 PM;Ordered; For:History of breast cancer; Ordered By:Noemi [place]; Order printed and given to pt with [facility] radiology # to call and schedule, there was no answer at radiology Hyperlipidemia 3. Pravastatin Sodium 40 MG Oral Tablet; TAKE 1 TABLET DAILY AT BEDTIME Rx By: Noemi [place]; Dispense: 90 Days ; #:90 Tablet; Refill: 1; For: Hyperlipidemia; HI = N; Verified Transmission to [facility] 30499; Msg to Pharmacy: Decrease from 80 mg; Last Updated By: Emerita Eyefreight; 12/25/2014 4:22:28 PM Vitamin d deficiency 4. Follow-up visit in 3 months Outpatient Follow-up Status: Complete Done: [id number] Ordered; For: Vitamin d deficiency; Ordered By: Noemi [place] Performed: Due: 08Jan2015; Last Updated By: Stormy Jackman; 12/25/2014 4:28:12 PM Gastroenterology Referral Outpatient For: Melena Status: Need Information - Financial AuthorizationRequested for: [id number] Ordered; For: Melena; Ordered By: Noemi [place] Performed: Order Comments: Shahid had EGD (pouch opened) now with increased gas, bloating & wt loss Nov had colonoscopy but recently had an episode of tarry stools Due: 08Jan2015 Discussion/Summary 1. Diabetes. We will need to evaluate with labs to further assess. She is on an ANGEL, a statin, probably needs to be on a baby aspirin. However, we will hold this until we further evaluate her GI status. 2. Hypertension, needs improved control but would reevaluate before making changes. 3. Hyperlipidemia on pravastatin. Consider if she is high risk. If we want to change her to atorvastatin 40, we will leave her on pravastatin. At this point, we will wait until further workup of her abdomen. 4. History of breast cancer. We will need a diagnostic mammogram until she is 5 years out. If no further recurrence, she can change to a routine screening. 5. Melena. Refer to GI for further evaluation. Since all of her GI symptoms have resolved, but the history of melena, we will not check a CT as I am unaware of her renal status anyway and recommend evaluation with GI and a scope. 6. Vitamin D deficiency. We will evaluate all labs. Further recommendations based on this. We will have her follow up in 3 months to further evaluate. Okay to refill medications until that time, otherwise RTO PRN. Signatures Electronically signed by : Noemi [place] M.D.; Jan 03 2015 8:03AM RUBY ON RAILS CONSULTANT (Author) documented in this encounter Plan of Treatment Not on file documented as of this encounter Procedures Procedure Name Priority Date/Time Associated Diagnosis Comments VITAMIN B12 / FOLATE Routine 12/27/2014 9:10 AM CDT LIPID W/CALC LDL Routine 12/27/2014 9:10 AM CDT TSH W/REFLEX Routine 12/27/2014 9:10 AM CDT HEMOGLOBIN, GLYCOSYLATED Routine 12/27/2014 9:10 AM CDT COMPREHENSIVE METABOLIC PANEL Routine 12/27/2014 9:10 AM CDT CBC W/DIFF AUTOMATED Routine 12/27/2014 9:10 AM CDT VITAMIN D, 25 OH Routine 12/27/2014 9:10 AM CDT documented in this encounter Results * VITAMIN D, 25 OH (12/27/2014 9:10 AM CDT) VITAMIN D 25 HYDROXY S/P/B 37 30 - 100 NG/ML [facility] TO EPIC CONVERSION Comment: Result Comment: ?? SUPPLEMENTING WITH VITAMIN D2 MAY RESULT IN FALSELY LOW RESULTS, CLINICAL ?? CORRELATION NEEDED. ?INTERPRETATION ?DEFICIENT ??<20 ? INSUFFICIENT 20-30 ? SUFFICIENT 30-100 POTENTIAL INTOXICATION ??>100 ? [place] [address] 12/27/2014 9:10 AM CDT 12/27/2014 9:10 AM CDT Narrative [facility] TO EPIC CONVERSION - 12/27/2014 7:58 PM CDT Result Communication: Call patient with results us Noemi [place] MD LABORATORY Final Result [facility] TO EPIC CONVERSION * (ABNORMAL) HEMOGLOBIN, GLYCOSYLATED (12/27/2014 9:10 AM CDT) HGB A1C 5.8(H) <5.7 % [facility] T O EPIC CONVERSION Comment: Result Comment: ?? INCREASED RISK OF DIABETES <5.7% ?NON-DIABETES 5.7-6.4% INCREASED RISK FOR FUTURE DIABETES > OR = 6.5 CONSISTENT WITH DIABETES ?? STANDARDS OF MEDICAL CARE IN DIABETES-2010 DIABETES CARE, 33(SUPP 1): S1-S61,2010 12/27/2014 9:10 AM CDT 12/27/2014 9:10 AM CDT Narrative [facility] TO EPIC CONVERSION - 12/27/2014 2:47 PM CDT Result Communication: Call patient with results us Noemi aBrnard MD LABORATORY Final Result Performing Organization Address City/[facility]/ZIP Co de Phone Number [facility] TO EPIC CONVERSION * TSH W/REFLEX (SNS) (12/27/2014 9:10 AM CDT) TSH 0.44 0.35 - 4.94 uIU/mL [facility] TO EPIC CONVERSION Comment:Result Comment: FREE T4 NOT INDICATED 12/27/2014 9:10 AM CDT 12/27/2014 9:10 AM CDT Narrative [facility] TO EPIC CONVERSION - 12/27/2014 1:37 PM CDT Result Communication: Call patient with results Noemi [place] MD LABORATORY Final Result [facility] TO EPIC CONVERSION * VITAMIN B12 / FOLATE (12/27/2014 9:10 AM CDT) Pathologist [facility] VITAMIN B12 S/P/B 660 213 - 816 pg/mL [facility] TO EPIC CONVERSION FOLATE 15.13 7.0 - 31.4 ng/mL [facility] TO EPIC CONVERSION 12/27/2014 9:10 AM CDT 12/27/2014 9:10 AM CDT Narrative [facility] TO EPIC CONVERSION - 12/27/2014 1:37 PM CDT Result Communication: Call patient with results Noemi [place] MD LABORATORY Final Result [facility] TO EPIC CONVERSION * (ABNORMAL) CBC W/DIFF AUTOMATED (12/27/2014 9:10 AM CDT) Pathologist [facility] WBC 3.8(L) 4.4 - 11.0 x10'3/uL [facility] TO EPIC CONVERSION RBC 4.62 4.50 - 5.10 x10'6/uL [facility] TO EPIC CONVERSION HGB 13.3 12.3 - 15.3 G/DL [facility] TO EPIC CONVERSION HCT 40.7 35.9 - 44.6 % [facility] TO EPIC CONVERSION MCV 88.1 80.0 - 96.0 FL [facility] TO EPIC CONVERSION MCH 28.8 25.3 - 30.9 PG [facility] TO EPIC CONVERSION MCHC 32.7 31.0 - 34.1 G/DL [facility] TO EPIC CONVERSION RDW 13.1 12.4 - 15.1 % [facility] TO EPIC CONVERSION PLT 210 151 - 353 x10'3/uL [facility] TO EPIC CONVERSION MPV 10.9 9.6 - 12.0 FL [facility] TO EPIC CONVERSION BASOPHILS % 0.8 0.0 - 1.3 % [facility] TO EPIC CONVERSION EOSINOPHILS % 2.6 0.0 - 5.6 % [facility] TO EPIC CONVERSION NEUTROPHILS % 72.3(H) 42.1 - 71.9 % [facility] TO EPIC CONVERSION LYMPHOCYTES % 17.5 15.8 - 45.0 % [facility] TO EPIC CONVERSION MONOCYTES % 6.5 5.7 - 12.5 % [facility] TO EPIC CONVERSION IMMATURE GRANS % 0.3 0.0 - 0.5 % [facility] TO EPIC CONVERSION ABS. NEUTROPHILS TOTAL 2.75 1.40 - 6.00 x10'3/uL [facility] TO EPIC CONVERSION WBC MORPHOLOGY NORMAL [facility] OUP TO EPIC CONVERSION PLT MORPH. NORMAL [facility] TO EPIC CONVERSION RBC MORPHOLOGY NORMAL [facility] OUP TO EPIC CONVERSION 12/27/2014 9:10 AM CDT 12/27/2014 9:10 AM CDT Narrative [facility] TO EPIC CONVERSION - 12/27/2014 1:16 PM CDT Result Communication: Call patient with results Noemi [place] MD LABORATORY Final Result [facility] TO EPIC CONVERSION * LIPID W/CALC LDL (12/27/2014 9:10 AM CDT) CHOLESTEROL 143 <200 MG/DL [facility] P TO EPIC CONVERSION TRIGLYCERIDES 88 <150 MG/DL [facility] OUP TO EPIC CONVERSION HDL 57 >55 MG/DL [facility] T O EPIC CONVERSION LDL (CALCULATED) 68.4 <130 MG/L [facility] TO EPIC CONVERSION [...] ? 45 ? 55 ?INCREASED ?<45 ?<55 12/27/2014 9:10 AM CDT 12/27/2014 9:10 AM CDT Narrative [facility] TO EPIC CONVERSION - 12/27/2014 1:05 PM CDT Result Communication: Call patient with results Noemi Barnard MD LABORATORY Final Result [facility] TO EPIC CONVERSION * COMPREHENSIVE METABOLIC PANEL (12/27/2014 9:10 AM CDT) SODIUM S/P/B 142 136 - 145 MMOL/L [facility] TO EPIC CONVERSION POTASSIUM S/P/B 4.5 3.5 - 5.1 MMOL/L [facility] TO EPIC CONVERSION CHLORIDE S/P/B 105 98 - 107 MMOL/L [facility] TO EPIC CONVERSION CO2 25.0 23 - 31 MMOL/L [facility] TO EPIC CONVERSION ANION GAP 16.5 10.0 - 24.0 MMOL/L [facility] TO EPIC CONVERSION BUN 11 9.8 - 20.1 MG/DL [facility] TO EPIC CONVERSION CREATININE S/P/B 0.7 0.57 - 1.11 MG/DL [facility] TO EPIC [...] [facility] TO EPIC CONVERSION BUN CREATININE RATIO 15.7 6.0 - 26.0 [facility] TO EPIC CONVERSION GLUCOSE 88 83 - 110 MG/DL [facility] TO EPIC CONVERSION OSMOLALITY (CALC) 282 271 - 290 MOSM/KG [facility] TO EPIC CONVERSION CALCIUM S/P/B 10.0 8.4 - 10.2 MG/DL [facility] TO EPIC CONVERSION BILIRUBIN TOTAL S/P/B 0.6 0.2 - 1.2 MG/DL [facility] TO EPIC CONVERSION AST 15 5 - 34 UNITS/L [facility] TO EPIC CONVERSION ALT 11 6 - 55 UNITS/L [facility] TO EPIC CONVERSION ALKALINE PHOSPHATASE S/P/B 80 30 - 130 UNITS/L [facility] TO EPIC CONVERSION TOTAL PROTEIN S/P/B 6.5 6.4 - 8.3 G/DL [facility] TO EPIC CONVERSION ALBUMIN S/P/B 4.1 3.4 - 4.8 G/DL [facility] TO EPIC CONVERSION A/G RATIO 1.7 1.1 - 1.9 RATIO [facility] TO EPIC CONVERSION 12/27/2014 9:10 AM CDT 12/27/2014 9:10 AM CDT Narrative [facility] TO EPIC CONVERSION - 12/27/2014 1:05 PM CDT Result Communication: Call patient with results Noemi [place] MD LABORATORY Final Result [facility] TO EPIC CONVERSION documented in this encounter Visit Diagnoses Not on filedocumented in this encounter
--- OUTSIDE RECORDS SUMMARY | 2024-04-05 00:29 | XMS_ITS | Encounter Summary ---
Author Organization [facility] Address [facility] [place] [address] [place] [address] Care Team Providers Care Actuarial Mathematician Name Role Phone Unavailable Primary Care Provider Unavailabl e Encounter Details Date Type Department Care Team (Latest Contact Info) Description 01/22/2015 Abstract [facility] Medical Group Social History Tobacco Use Types Packs/Day Years Used Date Smoking Tobacco: Never Assessed Comments Unknown Sex and Gender Information Value Date Recorded Sex Assigned at Not on file Legal Sex Female 8:14 PM CDT Gender Identity Not on file Sexual Orientation Not on file documented as of this encounter Progress Notes * Generic Conversion MD Brady - 01/22/2015 4:33 PM CDT Message Recorded as Task Date: 01/22/2015 04:18 PM, Created By: Noemi Hoffman Task Name: Renew Medication [facility] Nurse Team Regarding Patient: Roxana Ch, Status: In Progress Comment: Noemi Hoffman - 22 Jan 2015 4:18 PM TASK CREATED Caller: Self; pt requests refill of Pantoprazole to [facility]. she verified the dose and directions thatwe have in the system are accurate. she states she only has #1 tab left. Bianca Larson - 22 Jan 2015 4:33 PM TASK IN PROGRESS Bianca Larson - 22 Jan 2015 4:36 PM TASK EDITED this has already been filled Plan 1. Pantoprazole Sodium 40 MG Oral Tablet Delayed Release; TAKE 1 TABLET DAILY Rx By: Noemi [place]; Dispense: 30 Days ; #:30 Tablet Delayed Release; Refill: 0; For: GERD (gastroesophageal reflux disease); HI = N; Record; Last Updated By: Bianca Larson; 01/22/2015 4:36:00 PM Signatures Electronically signed by : Bianca Larson, ; Jan 22 2015 4:37PM LACE ROLLER (Author) documented in this encounter Plan of Treatment Not on file documented as of this encounter Visit Diagnoses Not on filedocumented in this encounter
--- OUTSIDE RECORDS SUMMARY | 2024-04-05 00:29 | XMS_ITS | Encounter Summary ---
Author Organization [facility] Address [facility] [place] [address] [place] [address] Care Team Providers Care Operations Section Manager Name Role Phone Unavailable Primary Care Provider Unavailabl e Encounter Details Date Type Department Care Team (Late st Contact Info) Description 01/11/2015 Abstract [facility] Medical Group Family & Internal Medicine [address] [phone] Diana Delgado APNP [address] [place] [phone] Social History Tobacco Use Types Packs/Day Years Used Date Smoking Tobacco: Never Assessed Comments Unknown Sex and Gender Information Value Date Recorded Sex Assigned at Not on file Legal Sex Female 8:14 PM CDT Gender Identity Not on file Sexual Orientation Not on file documented as of this encounter Last Filed Vital Signs Vital Sign Reading Time Taken Comments Blood Pressure 164/60 01/11/2015 1:27 PM CDT Pulse 72 01/11/2015 1:27 PM CDT Temperature - - Respiratory Rate - - Oxygen Saturation - - Inhaled Oxygen Concentration - - Weight 54.2 kg (119 lb 8 oz) 01/11/2015 1:27 PM CDT Height 157.5 cm (5' 2 ) 01/11/2015 1:27 PM CDT Body Mass Index 21.86 01/11/2015 1:27 PM CDT documented in this encounter Progress Notes * BAILEY Grey - 01/11/2015 1:30 PM CDT Reason For Visit Other: discuss mammogram results Chief Complaint Here to review mammogram results done last week. History of Present Illness HPI Free Text: Roxana presents today to discuss mammogram results. Has an appointment with Dr. Andrew in 1 week. Review of Systems Constitutional, Cardiovascular, Respiratory, Gastrointestinal, Genitourinary, Musculoskeletal, Integumentary and Psychiatric review of systems normal except as noted. Active Problems 1. Abdominal pain (789.00) (R10.9) 2. Diabetes mellitus (250.00) (E11.9) 3. History of breast cancer (V10.3) (Z85.3) 4. Hyperlipidemia (272.4) (E78.5) 5. Hypertension (401.9) (I10) 6. Insomnia (780.52) (G47.00) 7. Melena (578.1) (K92.1) 8. Screening mammogram for high-risk patient (V76.11) (Z12.31) 9. Vitamin d deficiency (268.9) (E55.9) Past [...] 1 TABLET TWICE DAILY WITH MEALS; Therapy: [id number] to (Evaluate:[id number]) Requested for: [id number]; Last Rx:[id number] Ordered 3. Levothyroxine Sodium 75 MCG Oral Tablet; TAKE 1 TABLET BY MOUTH DAILY; Therapy: 30Apr2014 to (Evaluate:[id number]) Recorded 4. Pantoprazole Sodium 40 MG Oral Tablet Delayed Release; TAKE 1 TABLET DAILY; Therapy: 16Jan2014 to (Evaluate:[id number]) Recorded 5. Pravastatin Sodium 40 MG Oral Tablet; TAKE 1 TABLET DAILY AT BEDTIME; Therapy: 30Apr2014 to (Evaluate:23Jun2015) Requested for: [id number]; Last Rx:[id number] Ordered 6. Taztia XT 180 MG Oral Capsule Extended Release 24 Hour; TAKE 1 CAPSULE DAILY; Therapy: 19Sep2014 to Recorded 7. TraZODone HCl - 50 MG Oral Tablet; TAKE 1 TABLET Bedtime; Therapy: 26Jun2014 to (Evaluate:[id number]) Recorded Allergies 1. No Known Drug Allergies Vitals Recorded: 11Jan2015 01:27PM Temperature 98.5 F Heart Rate 72 Respiration 18 Systolic 164 Diastolic 60 O2 Saturation 98 Height 5 ft 2 in Weight 119 lb 8 oz BMI Calculated 21.86 BSA Calculated 1.54 Physical Exam Constitutional General [...] of extremities for edema and/or varicosities: Normal. Psychiatric Orientation to person, place, and time: Normal. Mood and affect: Normal. Counseling The patient and patient's family was counseled regarding diagnostic results and impressions. Total time of encounter was 15 minutes and 10 minutes was spent counseling. Assessment 1. Screening mammogram for high-risk patient (V76.11) (Z12.31) 2. Abnormal mammogram (793.80) (R92.8) Plan Will fax mammogram results to Dr. Andrew's office. Keep appointment with Dr. Andrew to discuss treatment options. Return to office as needed. Discussion/Summary Roxana and her daughter stated understanding and agreement to plan. Signatures Electronically signed by : Diana Delgado APN; Jan 14 2015 11:24AM ROLLER BEARING INSPECTOR (Author) documented in this encounter Plan of Treatment Not on file documented as of this encounter Visit Diagnoses Not on filedocumented in this encounter
--- OUTSIDE RECORDS SUMMARY | 2024-04-05 00:29 | XMS_ITS | Encounter Summary ---
Author Organization [facility] Address [address] [place] [address]. [place], [place] [id number] [place] [address] Care Team Providers Care Patient Case Coordinator Name Role Phone Noemi Barnard MD Primary Care Provider [phone] Encounter Details Date Type Department Care Team (Late st Contact Info) Description 10/04/2014 Abstract [facility] [address] [place] [address] Yeison Atwood MD [address] [place] [id number] Social History Tobacco Use Types Packs/Day Years [...] loss documented in this encounter Care Teams Patient Case Coordinator Relationship Specialty Start Date End Date Noemi Barnard MD PCP - General INTERNAL MEDICINE 02/22/18 07/03/18 documented as of this encounter
--- OUTSIDE RECORDS SUMMARY | 2024-04-05 00:29 | XMS_ITS | Encounter Summary ---
Author Organization [facility] Address [address] [place] [address]. [place], [place] [id number] [place] [address] Care Team Providers Care Sueding Machine Tender Name Role Phone Unavailable Primary Care Provider Unavailabl e Encounter Details Date Type Department Care Team (Latest Contact Info) Description 01/17/2015 Abstract [facility] Medical [facility] Social History Tobacco Use Types Packs/Day Years Used Date Smoking Tobacco: Never Assessed Comments Unknown Sex and Gender Information Value Date Recorded Sex Assigned at Not on file Legal Sex Female 8:14 PM CDT Gender Identity Not on file Sexual Orientation Not on file documented as of this encounter Progress Notes * Rhianna Castaneda Md, MD - 01/17/2015 9:18 AM CDT Message Recorded as Task Date: 01/14/2015 11:25 AM, Created By: Diana Delgado Task Name: Informational Assigned To: Tesha Dinero Regarding Patient: Roxana Ch, Status: Active Comment: Diana Delgado - 14 Jan 2015 11:25 AM TASK CREATED Please fax mammogram results to Dr. Andrew's office. Thank you. Tesha Dinero - 17 Jan 2015 9:17 AM TASK EDITED spoke with Daughter. she Dr. Kiara Tobias- at the cancer center in [place]. She already saw her and they reviewed the reports. Signatures Electronically signed by : Tesha Dinero, ; Jan 17 2015 9:19AM PIGMENT FURNACE TENDER (Author) documented in this encounter Plan of Treatment Not on file documented as of this encounter Visit Diagnoses Not on filedocumented in this encounter
--- OUTSIDE RECORDS SUMMARY | 2024-04-05 00:29 | XMS_ITS | Encounter Summary ---
Author Organization [facility] Address [address] [place] [address]. [place], [place] [address] [place] [address] Care Team Providers Care Lead Systems Engineer Name Role Phone Noemi Barnard MD Primary Care Provider [phone] Encounter Details Date Type Department Care Team (Late st Contact Info) Description 11/27/2014 Abstract [facility] [address] [place] [address] Yeison Atwood MD [address] [place] [address] Social History Tobacco Use Types [...] filedocumented in this encounter Care Teams Lead Systems Engineer Relationship Specialty Start Date End Date Noemi Barnard MD PCP - General INTERNAL MEDICINE 02/22/18 07/03/18 documented as of this encounter
--- OUTSIDE RECORDS SUMMARY | 2024-04-05 00:29 | XMS_ITS | Encounter Summary ---
Author Organization [facility] Address [address] [place] [address]. [place], [place] [id number] [place] [address] Care Team Providers Care Carpet Cutter Name Role Phone Unavailable Primary Care Provider Unavailabl e Encounter Details Date Type Department Care Team (Latest Contact Info) Description 01/03/2015 Abstract [facility] Medical Group Social History Tobacco Use Types Packs/Day Years Used Date Smoking Tobacco: Never Assessed Comments Unknown Sex and Gender Information Value Date Recorded Sex Assigned at Not on file Legal Sex Female 8:14 PM CDT Gender Identity Not on file Sexual Orientation Not on file documented as of this encounter Progress Notes * Generic Conversion MD Brady - 01/03/2015 10:45 AM CDT Message Recorded as Task Date: 01/02/2015 06:12 PM, Created By: Noemi Barnard Task Name: Call Patient with results [facility] Nurse Team Regarding Patient: Roxana Ch, Status: In Progress Comment: Noemi Barnard - 02 Jan 2015 6:12 PM Patient labs all good, will review next time she is in Bianca Larson - 03 Jan 2015 9:25 AM TASK REASSIGNED: Previously Assigned To Noemi Barnard Holly - 03 Jan 2015 9:42 AM TASK IN PROGRESS Bianca Larson - 03 Jan 2015 9:42 AM TASK EDITED lmtcb re lab results. Radha Monge - 03 Jan 2015 10:45 AM TASK EDITED Pt returned call and was given Dr. Franklin's message regarding her labs. She verbalized understanding. Task complete Signatures Electronically signed by : Radha Monge, ; Jan 03 2015 10:45AM CERTIFIED MEDICAL BILLER (Author) documented in this encounter Plan of Treatment Not on file documented as of this encounter Visit Diagnoses Not on filedocumented in this encounter
--- OUTSIDE RECORDS SUMMARY | 2024-04-05 00:29 | XMS_ITS | Encounter Summary ---
Author Organization [facility] Address [address] [place] [address]. [place], [place] [id number] [place] [address] Care Team Providers Care Instructional Technology Facilitator Name Role Phone Unavailable Primary Care Provider Unavailabl e Encounter Details Date Type Department Care Team (Latest Contact Info) Description 12/26/2014 Abstract [facility] Medical Group Social History Tobacco [...]
--- OUTSIDE RECORDS SUMMARY | 2024-04-05 00:29 | XMS_ITS | Encounter Summary ---
Author Organization [facility] Address [address] [place] [address]. [place], [place] [address] [place] [address] Care Team Providers Care Real Estate Site Analyst Name Role Phone Noemi Barnard MD Primary Care Provider Encounter Details Date Type Department Care Team (Late st Contact Info) Description 01/03/2015 Abstract [facility] [address] [place], [place] [id number] [place] [address] [place], [place] [id number] Social History Tobacco Use Types Packs/Day Years [...] as of this encounter Visit Diagnoses Diagnosis Personal history of malignant neoplasm of breast documented in this encounter Care Teams Real Estate Site Analyst Relationship Specialty Start Date End Date Noemi Barnard MD PCP - General INTERNAL MEDICINE 02/22/18 07/03/18 documented as of this encounter
== END 2024-03-29 08:00 ==
PROVIDERS: Emergency Provider Family Medicine; PCP Internal Medicine
DX: S09.90XA Unspecified injury of head, initial encounter (principal); I10 Essential (primary) hypertension; E11.9 Type 2 diabetes mellitus without complications; F03.90 Unspecified dementia, unspecified severity, without behavioral disturbance, psychotic disturbance, mood disturbance, and anxiety; W18.39XA Other fall on same level, initial encounter
CPT/HCPCS: 70450; 99284

== ENCOUNTER 2024-04-15 16:20 | Emergency (ER) | payer OTHER, SELFPAY ==
[2024-04-15] VITALS (15 sets, daily range): BP systolic 69–118; BP diastolic 43–78; PULSE 60–68; RESP 13–20; TEMP 36.3; O2SAT 98–100
--- NOTE | ~2024-04-15 | XR_ITS ---
XR chest 1V Ordering provider: Donna Brantley PA-C History: 88 years Female with . weakness, fall . Comparison: April 23, 2013 FINDINGS: MEDIASTINUM: The cardiac silhouette is not enlarged. Prominent both lavell. Right bipolar pacemaker. LUNGS: No effusions or pneumothorax. Opacification in the left lung base. OTHER: No free air under the diaphragm. IMPRESSION: Left basilar atelectasis versus pneumonia. Reviewed, dictated and finalized at location A. TONE MACHINE OPERATOR
--- NOTE | ~2024-04-15 | CT_ITS ---
CT brain wo con Ordering provider: Donna Brantley PA-C History: 88 years Female with . fall . Comparison: March 29, 2024 Technique: CT of the head without contrast. Radiation reduction technique utilized. The dose-length product was 605.33 mGy-cm. FINDINGS: BRAIN PARENCHYMA AND CSF SPACES: Mild brain atrophy with deep white matter ischemic changes. No midli ne shift, mass effect or hemorrhage. The brain parenchyma and CSF spaces are otherwise normal. Atherosclerotic changes of the vertebral arteries. VISUALIZED PARANASAL SINUSES: Well aerated. MASTOIDS: Sclerotic changes bilaterally. BONES: The bones appear intact. SOFT TISSUES: Visualized nasopharynx is normal. Superficial soft tissues are normal. IMPRESSION: No acute intracranial findings. Reviewed, dictated and finalized at location A. EGE ASSOCIATE
--- NOTE | ~2024-04-15 | XR_ITS ---
SINGLE AP VIEW PELVIS Ordering provider: Donna Brantley PA-C History: . fall . Comparison: None. FINDINGS: BONES: No acute fracture or dislocation. HIP JOINT SPACES: Normal. SACROILIAC JOINT SPACES/LUMBAR SPINE: The sacroiliac joint spaces are normal. Mild degenerative álvarez es of the visualized lower lumbar spine. PUBIC SYMPHYSIS: Pubic symphysitis. SOFT TISSUES: Normal. IMPRESSION: No acute osseous abnormality pelvis. Reviewed, dictated and finalized at location A. HELPER
--- NOTE | ~2024-04-15 | CT_ITS ---
CT cervical spine wo con Ordering provider: Donna Brantley PA-C History: . fall . Comparison: None. Technique: CT of the cervical spine was performed without contrast. Sagittal and coronal reformatted images were also obtained and reviewed. Automated exposure control and iterative reconstruction papo hnique were employed. The dose-length product was 159.84 mGy-cm. FINDINGS: VERTEBRAE: No subluxation or acute fracture. The occipital condyles are intact. Degenerative changes of the spine. DISC SPACES: Narrowing of the disc C5-C6. 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 Multilevel facet joint disease. Narrowing of the foramina at the level of C5-C6 and C6-C7. PARASPINOUS SOFT TISSUES: Left carotid calcifications. IMPRESSION: No acute osseous abnormality cervical spine. Reviewed, dictated and finalized at location A. SETTER
[2024-04-15 16:35] LABS: Glucose Point of Care 60 mg/dl (65-105)
--- NOTE | 2024-04-15 16:38 | ECG_ITS ---
Test Date: 2024-04-15 16:52:06 Measurements Intervals [place] Rate: 60 P: 133 MT: 324 QRS: 34 QRSD: 150 T: -29 QT: 491 QTc: 491 Interpretive Statements ELECTRONIC ATRIAL PACEMAKER RIGHT BUNDLE BRANCH BLOCK [120+ ms QRS DURATION, UPRIGHT V1, 40+ ms S IN I/aVL/V4/V5/V6] MODERATE T-WAVE ABNORMALITY, CONSIDER LATERAL ISCHEMIA [-0.1+ mV T-WAVE IN I/aVL/V5/V6] ABNORMAL ECG No previous ECG available for comparison Electronically Signed On 04-15-2024 17:44:01 DATA STORAGE SPECIALIST by Hugo Mistry M.D.
--- NOTE | 2024-04-15 16:38 | ED.FALL ---
HPI - Fall General Chief Complaint: Weakness <Donna Brantley PA-C - Last Filed: 04/16/24 16:30> Stated Complaint: unwitnessed fall, low bs <Donna Brantley PA-C - Last Filed: 04/16/24 16:30> Time Seen by Provider: 04/15/24 16:39 <Donna Brantley PA-C - Last Filed: 04/16/24 16:30> Focused HPI: This is a 88 year old female that presents to the ER for a fall today with low blood sugar. Unwitnessed fall at her facility. Patient unresponsive upon EMS arrival with low blood sugar. Patient given D10 with improvement in blood sugar (200s). Now alert and drinking juice, recheck blood sugar 60 in the ER. GENERAL: Elderly, well-nourished, and in no acute distress. HEAD: Normocephalic, atraumatic. CHEST: Clear to auscultation. ?No respiratory distress. HEART: Regular rate and rhythm.? NEURO: ?Alert, moving all extremities Patient screened in triage and initial orders placed.? ?Additional care and disposition to be based upon?diagnostic testing and treatment. <Donna Brantley PA-C - Last Filed: 04/16/24 16:30> History of Present Illness HPI Narrative: 88-year-old female with a history of insulin dependent diabetes, dementia, DNR DNI status. Patient presents from her [facility] facility for concerns of a unwitnessed fall and mental status changes. Patient was found on the ground and found to have a glucose of 32 by EMS. She was given a bolus of D10 with improvement and patient was eating and drinking in triage. Patient is at her baseline mentation, she is very hard of hearing but not any acute distress. She is in a C-collar via EMS as they had a potentially unwitnessed fall. Patient herself is denying any pain, no obvious external injuries. Denies any headache, nausea, vomiting, chest pain or abdominal pain. She is otherwise pleasant and cooperative. <Manpreet Louis MD - Last Filed: 04/15/24 21:22> Related Data Allergies/Adverse Reactions: Allergies Allergy/AdvReac Type Severity Reaction Status Date / Time No Known Allergies Allergy Verified 03/28/24 20:21 <Donna Brantley PA-C - Last Filed: 04/16/24 16:30> Review of Systems Review of Systems: As reviewed above in HPI <Manpreet Louis MD - Last Filed: 04/15/24 21:22> [facility] Family History Family History: Family History Father Family history of diabetes mellitus in first degree relative Mother Family history of diabetes mellitus in first degree relative Mother Family history of diabetes mellitus in first degree relative Other Diabetes mellitus Family history of coronary artery disease Family history of elevated blood lipids Family history of hypercholesterolemia Family history of osteoarthritis <Donna Brantley PA-C - Last Filed: 04/16/24 16:30> Social History Social History: Social History Smoking status: Never smoker Alcohol intake: never <Donna Brantley PA-C - Last Filed: 04/16/24 16:30> Exam Narrative: GENERAL: Elderly, thin and frail but not any acute distress, C-collar in place. Very hard of hearing. HEAD: [Normocephalic, atraumatic.] EYES: [PERRLA and EOMI.] ENT: Nares clear, no rhinorrhea or epistaxis. Mucous membranes moist. NECK: Supple. CHEST: [Clear to auscultation. No respiratory distress.] HEART: [Regular rate and rhythm]. No murmur heard. [Normal peripheral pulses.] ABDOMEN: [Soft, nondistended], [nontender], [No rigidity or guarding] EXTREMITIES: Normal range of motion. [No edema.] SKIN: Warm, dry, no rash. NEURO: [No focal deficits]. Alert and oriented [x3.] Follows commands easily. Moves all extremities, no obvious sensory deficits. No facial asymmetries. PSYCH: [Normal mood and affect.] <Manpreet Louis MD - Last Filed: 04/15/24 21:22> Course Vital Signs Vital signs: Vital Signs Temperature 97.4 F L 04/15/24 16:21 Pulse Rate 64 04/15/24 16:21 Respiratory Rate 16 04/15/24 16:21 Blood Pressure 102/64 04/15/24 16:21 Pulse Oximetry 98 04/15/24 16:21 Oxygen Delivery Room Air 04/15/24 16:21 Temperature 97.4 F L 04/15/24 16:21 Pulse Rate 65 04/15/24 22:52 Respiratory Rate 16 04/15/24 22:52 Blood Pressure 114/78 04/15/24 22:52 Pulse Oximetry 100 04/15/24 22:52 Oxygen Delivery Room Air 04/15/24 17:28 <Donna Brantley PA-C - Last Filed: 04/16/24 16:30> Vital Signs Temperature 97.4 F L 04/15/24 16:21 Pulse Rate 64 04/15/24 16:21 Respiratory Rate 16 04/15/24 16:21 Blood Pressure 102/64 04/15/24 16:21 Pulse Oximetry 98 04/15/24 16:21 Oxygen Delivery Room Air 04/15/24 16:21 Temperature 97.4 F L 04/15/24 16:21 Pulse Rate 65 04/15/24 22:52 Respiratory Rate 16 04/15/24 22:52 Blood Pressure 114/78 04/15/24 22:52 Pulse Oximetry 100 04/15/24 22:52 Oxygen Delivery Room Air 04/15/24 17:28 <Manpreet Louis MD - Last Filed: 04/15/24 21:22> MDM - Fall MDM Narrative Medical decision making narrative: 88-year-old female presenting from her [facility] facility for concerns of unwitnessed fall and hypoglycemia. Patient was found to be 32 on initial blood sugar check with improvement after D10 drip by EMS. Patient presently is awake alert oriented, very cooperative, pleasant to speak with. She is very hard of hearing but otherwise comfortably resting with her C-collar. Denies any injuries and has no external evidence of trauma to her head neck or extremities. She is thin frail, elderly. On review of the external notes she is DNR, DNI, has history of insulin-dependent diabetes and dementia. Given her hypoglycemia that is what likely led to her transient mental status changes and fall but given her age and risk factors a workup was ordered including CBC, CMP, urinalysis, chest x-ray, EKG, CT of the head. Patient was given a fluid bolus. Her blood pressure is on the soft side bone review of previous records she has soft blood pressures. She is not tachycardic, tachypneic hypoxic or having a fever. Workup shows no leukocytosis. Normal hemoglobin level, normal platelet level. Chemistry panel shows very mild hypokalemia at 3.2, BUN and creatinine of 20 and 1.12, unclear baseline. CMP within normal limits, slightly low albumin. Urinalysis does have evidence of urinary tract infection and appears turbid. X-rays were chest shows some left basilar atelectasis, no effusions or pneumothorax. Pelvis x-ray shows no acute osseous process. CT head and neck shows no acute intracranial or cervical pathology. Patient was re-evaluated multiple times, C-collar was removed after the imaging studies, patient is eating drinking appropriately. Repeat glucose checks are reassuring and holding steady. She still has some soft blood pressures but is asymptomatic at this time with normal vitals otherwise. She will be started on antibiotics for her urinary infection given a dose of Rocephin and doxycycline here. She will be discharged home with a prescription for Bactrim. Patient will require BLS ambulance for transfer back to her facility which was arranged. <Manpreet Louis MD - Last Filed: 04/15/24 21:22> Medical Records Attestation: I reviewed the patient's medical records. <Manpreet Louis MD - Last Filed: 04/15/24 21:22> Lab Data Attestation: I reviewed the patient's lab results. <Manpreet Louis MD - Last Filed: 04/15/24 21:22> Result diagrams: 04/15/24 17:32 04/15/24 17:32 <Donna Brantley PA-C - Last Filed: 04/16/24 16:30> Labs: Lab Results 04/15/24 04/15/24 04/15/24 Range/Units 16:32 16:46 17:32 WBC 7.0 (4.5-10.0) K/mm3 RBC 4.97 (4.2-5.4) M/mm3 Hgb 13.6 (12.0-15.0) g/dL Hct 42.9 (37.0-47.0) % MCV 86.3 (80-100) fl MCH 27.4 (26-34) pg MCHC 31.7 L (32-36) g/dl RDW 15.3 H (11.5-14.5) % Plt Count 190 (150-375) k/mm3 MPV 9.9 (7.4-10.4) fl Immature Gran % (Auto) 0.6 H (0-0.5) % Neut % (Auto) 80.5 H (45.5-73.1) % Lymph % (Auto) 12.3 L (18.3-44.2) % Clayton % (Auto) 5.6 (2.6-8.5) % Eos % (Auto) 0.6 (0-4.4) % Baso % (Auto) 0.4 (0.2-1.2) % Lymph # (Auto) 0.86 L (0.9-3.2) K/mm3 Clayton # (Auto) 0.4 (0.1-0.6) K/mm3 Eos # (Auto) 0.0 (0-0.3) K/mm3 Baso # (Auto) 0.0 (0.0-0.1) K/mm3 Abs Immat Gran (auto) 0.04 H (0.00-0.031) K/mm3 Absolute Neuts (auto) 5.6 (1.3-6.7) K/mm3 Absolute Nucleated RBC 0.000 (0.0-0.012) K/mm3 Nucleated RBC % 0.0 (0.0-0.2) % Sodium 137 (137-145) mmol/L Potassium 3.2 L (3.4-5.0) mmol/L Chloride 102 (98-107) mmol/L Carbon Dioxide 31 H (22-30) mmol/L Anion Gap 4 (4-12) mmol/L BUN 20 H (7-17) mg/dL Creatinine 1.12 H (0.7-1.0) mg/dL Estim Creat Clear Calc 24 ml/min Estimated GFR 46 L (59 - ) Glucose 70 (65-110) mg/dL POC Capillary Glucose 60 L 75 (65-105) mg/dl Calcium 8.7 (8.4-10.2) mg/dL Total Bilirubin 0.6 (0.2-1.3) mg/dL AST 20 (14-36) U/L ALT 12 (6-35) U/L Alkaline Phosphatase 116 (38-126) U/L Total Protein 6.0 L (6.3-8.2) g/dL Albumin 3.4 L (3.5-5.1) g/dL Urine Color (Yellow) Urine Appearance (Clear) Urine pH (5.0-9.0) Ur Specific [place] (1.001-1.035) Urine Protein (Negative) mg/dL Urine Glucose (UA) (Negative) mg/dL Urine Ketones (Negative) mg/dL Ur Blood (Man) (Negative) Urine Nitrate (Negative) Urine Bilirubin (Negative) Urine Urobilinogen (<2.0) mg/dL Add Ur Microanalysis Leukocyte Esterase Rfl (Negative) CHARITO/UL Urine RBC (0-2) /hpf Urine WBC (0-3) /hpf Ur Squamous Epith Cells (Few) /hpf Urine Bacteria /hpf Urine Casts Urine Yeast (Budding) (None) /hpf 04/15/24 04/15/24 04/15/24 Range/Units 18:06 19:00 22:47 WBC (4.5-10.0) K/mm3 RBC (4.2-5.4) M/mm3 Hgb (12.0-15.0) g/dL Hct (37.0-47.0) % MCV (80-100) fl MCH (26-34) pg MCHC (32-36) g/dl RDW (11.5-14.5) % Plt Count (150-375) k/mm3 MPV (7.4-10.4) fl Immature Gran % (Auto) (0-0.5) % Neut % (Auto) (45.5-73.1) % Lymph % (Auto) (18.3-44.2) % Clayton % (Auto) (2.6-8.5) % Eos % (Auto) (0-4.4) % Baso % (Auto) (0.2-1.2) % Lymph # (Auto) (0.9-3.2) K/mm3 Clayton # (Auto) (0.1-0.6) K/mm3 Eos # (Auto) (0-0.3) K/mm3 Baso # (Auto) (0.0-0.1) K/mm3 Abs Immat Gran (auto) (0.00-0.031) K/mm3 Absolute Neuts (auto) (1.3-6.7) K/mm3 Absolute Nucleated RBC (0.0-0.012) K/mm3 Nucleated RBC % (0.0-0.2) % Sodium (137-145) mmol/L Potassium (3.4-5.0) mmol/L Chloride (98-107) mmol/L Carbon Dioxide (22-30) mmol/L Anion Gap (4-12) mmol/L BUN (7-17) mg/dL Creatinine (0.7-1.0) mg/dL Estim Creat Clear Calc ml/min Estimated GFR (59 - ) Glucose (65-110) mg/dL POC Capillary Glucose 97 96 (65-105) mg/dl Calcium (8.4-10.2) mg/dL Total Bilirubin (0.2-1.3) mg/dL AST (14-36) U/L ALT (6-35) U/L Alkaline Phosphatase (38-126) U/L Total Protein (6.3-8.2) g/dL Albumin (3.5-5.1) g/dL Urine Color Yellow (Yellow) Urine Appearance Turbid H (Clear) Urine pH 5.5 (5.0-9.0) Ur Specific [place] 1.010 (1.001-1.035) Urine Protein 1+ H (Negative) mg/dL Urine Glucose (UA) Trace H (Negative) mg/dL Urine Ketones Negative (Negative) mg/dL Ur Blood (Man) 2+ H (Negative) Urine Nitrate Negative (Negative) Urine Bilirubin Negative (Negative) Urine Urobilinogen 0.2 (<2.0) mg/dL Add Ur Microanalysis Reviewed Leukocyte Esterase Rfl 3+ H (Negative) CHARITO/UL Urine RBC 3-5 H (0-2) /hpf Urine WBC >100 H (0-3) /hpf Ur Squamous Epith Cells Occasional (Few) /hpf Urine Bacteria Rare /hpf Urine Casts 6-10 Urine Yeast (Budding) Present H (None) /hpf <Donna Brantley PA-C - Last Filed: 04/16/24 16:30> Lab Results 04/15/24 04/15/24 04/15/24 Range/Units 16:32 16:46 17:32 WBC 7.0 (4.5-10.0) K/mm3 RBC 4.97 (4.2-5.4) M/mm3 Hgb 13.6 (12.0-15.0) g/dL Hct 42.9 (37.0-47.0) % MCV 86.3 (80-100) fl MCH 27.4 (26-34) pg MCHC 31.7 L (32-36) g/dl RDW 15.3 H (11.5-14.5) % Plt Count 190 (150-375) k/mm3 MPV 9.9 (7.4-10.4) fl Immature Gran % (Auto) 0.6 H (0-0.5) % Neut % (Auto) 80.5 H (45.5-73.1) % Lymph % (Auto) 12.3 L (18.3-44.2) % Clayton % (Auto) 5.6 (2.6-8.5) % Eos % (Auto) 0.6 (0-4.4) % Baso % (Auto) 0.4 (0.2-1.2) % Lymph # (Auto) 0.86 L (0.9-3.2) K/mm3 Clayton # (Auto) 0.4 (0.1-0.6) K/mm3 Eos # (Auto) 0.0 (0-0.3) K/mm3 Baso # (Auto) 0.0 (0.0-0.1) K/mm3 Abs Immat Gran (auto) 0.04 H (0.00-0.031) K/mm3 Absolute Neuts (auto) 5.6 (1.3-6.7) K/mm3 Absolute Nucleated RBC 0.000 (0.0-0.012) K/mm3 Nucleated RBC % 0.0 (0.0-0.2) % Sodium 137 (137-145) mmol/L Potassium 3.2 L (3.4-5.0) mmol/L Chloride 102 (98-107) mmol/L Carbon Dioxide 31 H (22-30) mmol/L Anion Gap 4 (4-12) mmol/L BUN 20 H (7-17) mg/dL Creatinine 1.12 H (0.7-1.0) mg/dL Estim Creat Clear Calc 24 ml/min Estimated GFR 46 L (59 - ) Glucose 70 (65-110) mg/dL POC Capillary Glucose 60 L 75 (65-105) mg/dl Calcium 8.7 (8.4-10.2) mg/dL Total Bilirubin 0.6 (0.2-1.3) mg/dL AST 20 (14-36) U/L ALT 12 (6-35) U/L Alkaline Phosphatase 116 (38-126) U/L Total Protein 6.0 L (6.3-8.2) g/dL Albumin 3.4 L (3.5-5.1) g/dL Urine Color (Yellow) Urine Appearance (Clear) Urine pH (5.0-9.0) Ur Specific [place] (1.001-1.035) Urine Protein (Negative) mg/dL Urine Glucose (UA) (Negative) mg/dL Urine Ketones (Negative) mg/dL Ur Blood (Man) (Negative) Urine Nitrate (Negative) Urine Bilirubin (Negative) Urine Urobilinogen (<2.0) mg/dL Add Ur Microanalysis Leukocyte Esterase Rfl (Negative) CHARITO/UL Urine RBC (0-2) /hpf Urine WBC (0-3) /hpf Ur Squamous Epith Cells (Few) /hpf Urine Bacteria /hpf Urine Casts Urine Yeast (Budding) (None) /hpf 04/15/24 04/15/24 04/15/24 Range/Units 18:06 19:00 22:47 WBC (4.5-10.0) K/mm3 RBC (4.2-5.4) M/mm3 Hgb (12.0-15.0) g/dL Hct (37.0-47.0) % MCV (80-100) fl MCH (26-34) pg MCHC (32-36) g/dl RDW (11.5-14.5) % Plt Count (150-375) k/mm3 MPV (7.4-10.4) fl Immature Gran % (Auto) (0-0.5) % Neut % (Auto) (45.5-73.1) % Lymph % (Auto) (18.3-44.2) % Clayton % (Auto) (2.6-8.5) % Eos % (Auto) (0-4.4) % Baso % (Auto) (0.2-1.2) % Lymph # (Auto) (0.9-3.2) K/mm3 Clayton # (Auto) (0.1-0.6) K/mm3 Eos # (Auto) (0-0.3) K/mm3 Baso # (Auto) (0.0-0.1) K/mm3 Abs Immat Gran (auto) (0.00-0.031) K/mm3 Absolute Neuts (auto) (1.3-6.7) K/mm3 Absolute Nucleated RBC (0.0-0.012) K/mm3 Nucleated RBC % (0.0-0.2) % Sodium (137-145) mmol/L Potassium (3.4-5.0) mmol/L Chloride (98-107) mmol/L Carbon Dioxide (22-30) mmol/L Anion Gap (4-12) mmol/L BUN (7-17) mg/dL Creatinine (0.7-1.0) mg/dL Estim Creat Clear Calc ml/min Estimated GFR (59 - ) Glucose (65-110) mg/dL POC Capillary Glucose 97 96 (65-105) mg/dl Calcium (8.4-10.2) mg/dL Total Bilirubin (0.2-1.3) mg/dL AST (14-36) U/L ALT (6-35) U/L Alkaline Phosphatase (38-126) U/L Total Protein (6.3-8.2) g/dL Albumin (3.5-5.1) g/dL Urine Color Yellow (Yellow) Urine Appearance Turbid H (Clear) Urine pH 5.5 (5.0-9.0) Ur Specific [place] 1.010 (1.001-1.035) Urine Protein 1+ H (Negative) mg/dL Urine Glucose (UA) Trace H (Negative) mg/dL Urine Ketones Negative (Negative) mg/dL Ur Blood (Man) 2+ H (Negative) Urine Nitrate Negative (Negative) Urine Bilirubin Negative (Negative) Urine Urobilinogen 0.2 (<2.0) mg/dL Add Ur Microanalysis Reviewed Leukocyte Esterase Rfl 3+ H (Negative) CHARITO/UL Urine RBC 3-5 H (0-2) /hpf Urine WBC >100 H (0-3) /hpf Ur Squamous Epith Cells Occasional (Few) /hpf Urine Bacteria Rare /hpf Urine Casts 6-10 Urine Yeast (Budding) Present H (None) /hpf <Manpreet Louis MD - Last Filed: 04/15/24 21:22> Imaging Data Attestation: I personally reviewed and interpreted this imaging study as follows: <Manpreet Louis MD - Last Filed: 04/15/24 21:22> My impression: Impressions Chest X-Ray 04/15/24 17:30 IMPRESSION: Left basilar atelectasis versus pneumonia. Pelvis X-Ray 04/15/24 17:31 IMPRESSION: No acute osseous abnormality pelvis. Head CT 04/15/24 17:33 IMPRESSION: No acute intracranial findings. Cervical Spine CT 04/15/24 17:49 IMPRESSION: No acute osseous abnormality cervical spine. <Manpreet Louis MD - Last Filed: 04/15/24 21:22> Critical Care Time Critical Care Time Critical Care Time: No <Donna Brantley PA-C - Last Filed: 04/16/24 16:30> Discharge Plan Discharge Clinical Impression: Acute UTI (urinary tract infection), Hypoglycemia Fall Qualifiers: Encounter type: initial encounter Qualified Code(s): W19.XXXA - Unspecified fall, initial encounter <Donna Brantley PA-C - Last Filed: 04/16/24 16:30> Patient Disposition: NH Assisted/Asst Living <Donna Brantley PA-C - Last Filed: 04/16/24 16:30> Condition: Stable <Donna Brantley PA-C - Last Filed: 04/16/24 16:30> Instructions: Antibiotic Form <Donna Brantley PA-C - Last Filed: 04/16/24 16:30> Additional Instructions: You have a urinary tract infection which will be treated with oral antibiotics outpatient. Follow-up with your regular primary care provider, return with any new or worsening concerns at any time. <Donna Brantley PA-C - Last Filed: 04/16/24 16:30> Patient Language: Spanish <Donna Brantley PA-C - Last Filed: 04/16/24 16:30> Prescriptions: New cephalexin 500 mg capsule 500 mg PO Q8H 7 Days Qty: 21 0RF <Donna Brantley PA-C - Last Filed: 04/16/24 16:30> Follow-up/Referrals: Yeison Atwood MD [Primary Care Provider] - <Donna Brantley PA-C - Last Filed: 04/16/24 16:30> Stand Alone Forms: Intermediate Discharge <Donna Brantley PA-C - Last Filed: 04/16/24 16:30> Time of Disposition: 21:00 <Donna Brantley PA-C - Last Filed: 04/16/24 16:30> 21:00 <Manpreet Louis MD - Last Filed: 04/15/24 21:22>
[2024-04-15 16:50] LABS: Glucose Point of Care 75 mg/dl (65-105)
[2024-04-15 17:38] LABS: Basophils Percent Auto 0.4 % (0.2-1.2); Eosinophils Percent Auto 0.6 % (0-4.4); Hematocrit 42.9 % (37.0-47.0); Hemoglobin 13.6 g/dL (12.0-15.0); Immature Granulocyte Absolute 0.04 K/mm3 (0.00-0.031); Immature Granulocyte Percent A 0.6 % (0-0.5); Lymphocytes Absolute Auto 0.86 K/mm3 (0.9-3.2); Lymphocytes Percent Auto 12.3 % (18.3-44.2); Mean Corpuscular HGB Conc 31.7 g/dl (32-36); Mean Corpuscular Hemoglobin 27.4 pg (26-34); Mean Corpuscular Volume 86.3 fl (80-100); Mean Platelet Volume 9.9 fl (7.4-10.4); Monocytes Absolute Auto 0.4 K/mm3 (0.1-0.6); Monocytes Percent Auto 5.6 % (2.6-8.5); Neutrophils Absolute Auto 5.6 K/mm3 (1.3-6.7); Neutrophils Percent Auto 80.5 % (45.5-73.1); Platelet Count Result 190 k/mm3 (150-375); Red Blood Count 4.97 M/mm3 (4.2-5.4); Red Cell Distribution Width 15.3 % (11.5-14.5)
[2024-04-15 17:51] LABS: Alanine Aminotransferase 12 U/L (6-35); Albumin Level 3.4 g/dL (3.5-5.1); Alkaline Phosphatase 116 U/L (38-126); Anion Gap 4 mmol/L (4-12); Aspartate Amino Transferase 20 U/L (14-36); Bilirubin,Total 0.6 mg/dL (0.2-1.3); Blood Urea Nitrogen 20 mg/dL (7-17); Calcium 8.7 mg/dL (8.4-10.2); Carbon Dioxide 31 mmol/L (22-30); Chloride 102 mmol/L (98-107); Estimated CRCL calculation 24 ml/min; Estimated Glomerular Filt Rate 46; Glucose 70 mg/dL (65-110); Potassium 3.2 mmol/L (3.4-5.0); Sodium 137 mmol/L (137-145)
[2024-04-15 19:01] LABS: Add Urine Microscopic? YES; Appearance Urine Turbid (Clear); Bacteria Urine Rare /hpf; Bilirubin Urine Negative (Negative); Blood Urine 2+ (Negative); Budding Yeast Urine Present /hpf; Color Urine Yellow (Yellow); Glucose Urine UA Trace mg/dL (Negative); Ketones Urine Negative (Negative); Leukocyte Esterase Ur 3+ LEU/UL (Negative); Need Manual Microscopic Reviewed; Nitrate Urine Negative (Negative); Protein Urine 1+ mg/dL (Negative); Squamous Epithelial Cell Urine Occasional /hpf (Few); Urobilinogen Urine 0.2 mg/dL (<2.0); WBC Urine >100 /hpf (0-3); pH Urine 5.5 (5.0-9.0)
[2024-04-15 19:02] LABS: Glucose Point of Care 97 mg/dl (65-105)
[2024-04-15] MEDS: cefTRIAXone 2 GM/NS 100 ML 2 GM/100 ML BAG IVPB (19:47)
[2024-04-15] MEDS: LACTATED RINGERS 1,000 ML 999 ML IV CONT (19:47)
--- NOTE | 2024-04-15 21:24 | PC.NURSE ---
Gave report to Marylu DUGAN at [facility] to let them know patient results and that patient is good to come back to Facility.
[2024-04-15] MEDS: DOXYCYCLINE 100 MG/NS 100 ML 100 MG/100 ML BAG IVPB (21:41)
[2024-04-15 22:56] LABS: Glucose Point of Care 96 mg/dl (65-105)
== END 2024-04-15 22:54 ==
PROVIDERS: Physician Assistant; Emergency Provider Student in an Organized Health Care Education/Training Program; PCP Internal Medicine
DX: N39.0 Urinary tract infection, site not specified (principal); E11.649 Type 2 diabetes mellitus with hypoglycemia without coma; W19.XXXA Unspecified fall, initial encounter; Z79.4 Long term (current) use of insulin; F03.90 Unspecified dementia, unspecified severity, without behavioral disturbance, psychotic disturbance, mood disturbance, and anxiety; Z66 Do not resuscitate
CPT/HCPCS: 36415; 70450; 71045; 72125; 72170; 80053; 81001; 82948; 85025; 87086; 93005; 96365; 96367; 96372; 96375; 99284; J0696; J7120